=== PATIENT | female | born 1955 | race Caucasian/White ===

== ENCOUNTER 2016-08-16 16:53 | Emergency (ER) | payer BC ==
[~2016-08-16] VITALS: Ht 160 cm; Wt 85.4 kg
[~2016-08-16 16:53] MED LIST: CMD5 PO; INSDGI SQ; LSN5 PO; MECL1TAB42 PO; METO-157 PO; NVLGI SC; OXYC-57 PO; OXYC1TAB3 PO; ROSU20TA PO; SYN50 PO; WARF-246 PO; WLLSR100 PO
[2016-08-16 17:06] VITALS: TEMP 36.6; Ht 160 cm; Wt 85.4 kg
[2016-08-16] MEDS ORDERED: SODIUM CHLORIDE 0.9% 1000ML 1,000 ML IV STA (18:09)
[2016-08-16] MEDS ORDERED: SODIUM CHLORIDE 0.9% 1000ML 1,000 ML IV ONE (18:09)
--- NOTE | 2016-08-16 18:23 | EMERGENCY ROOM VISIT NOTE ---
History Report prepared by Suyapa: Alma Delia Patel Under the Supervision of: Dr. Aly Urban M.D. First contact with patient: 17:54 Chief Complaint: FALL Stated Complaint: FALL, HURT TAILBONE History of Present Illness The patient is a 61 year old female who presents to the Emergency Room with complaints of intermittent dizziness occurring for the past few days. The dizziness has been causing her to fall. About a week ago, the patient was up on a counter and fell back onto the floor. She hit her buttocks onto the floor. She thinks she injured her tailbone. Last night, she fell out of bed and hit her buttocks on the floor again. She thinks she hit her tailbone again. She reports hitting her head on the night stand. The patient denies fevers, chills, headache, loss of consciousness, chest pain, shortness of breath, numbness, weakness, or any other complaints. She reports a normal appetite and a normal fluid intake. She has a history of diabetes and her sugar has been running in the 600s for the past few months. Her PCP suspected that the hyperglycemia is related to the increased amount of stress. She is currently on blood thinners. The patient denies any changes in her medication. Source of History: patient Onset: a few days ago Position: other (global) Quality: other (dizziness) Timing: intermittent Associated Symptoms: No LOC, No SOB, No chest pain, No chills, No fevers, No headache, No numbness, No weakness Review of Systems See HPI for pertinent positives & negatives. A total of 10 systems reviewed and were otherwise negative. Past Medical & Surgical Medical Problems: (1) Adhesion of abdominal wall (2) Adult hypothyroidism (3) Anxiety (4) Calculus of kidney and ureter (5) Carpal tunnel syndrome on both sides (6) Deep venous thrombosis (7) Depression (8) Diabetic gastroparesis (9) Diabetic neuropathy (10) Diverticulosis of colon without diverticulitis (11) DJD (degenerative joint disease) (12) DM type 2 (diabetes mellitus, type 2) (13) Dyslipidemia (14) Essential hypertension (15) HTN (hypertension) (16) Obesity (17) Pulmonary embolism (18) Transient ischemic attack (19) Vertebral fracture (20) Vertigo (21) Vitamin D deficiency Surgical Problems: (1) Bilateral tubal ligation (2) H/O knee surgery (3) Hysterectomy (4) Oophorectomy (5) S/p breast lesion excision (6) S/P dilation and curettage (7) S/P laparoscopic cholecystectomy (8) S/P left knee arthroscopy (9) S/p lysis of adhesions (10) S/p small bowel repair Old medical records were reviewed. Nurse's notes were reviewed and I agree with. Family History " heart condition " SISTER (not CAD, passed at age 42) SISTER (not CAD, passed at 59) Cancer Diabetes mellitus Heart disease Hypertension Kidney disease Lung disease Seizures Social History Smoking Status: Never Smoker Alcohol Use: none Drug Use: none Marital Status: Housing Status: lives with family Occupation Status: retired Current/Historical Medications Scheduled Bupropion HCl (Bupropion HCl Sr), 100 MG PO QAM Cholecalciferol (Vitamin D3), 1 TAB PO QAM Clopidogrel (Plavix), 75 MG PO QAM Ferrous Sulfate (Ferrous Sulfate), 325 MG PO QAM Gabapentin (Neurontin), 400 MG PO TID Insulin Aspart (Novolog), 10 UNITS SC AC Insulin Glargine (Lantus), 42 UNITS SQ BID Levothyroxine Sodium (Synthroid), 100 MCG PO DAILY Lisinopril (Zestril), 10 MG PO DAILY Metformin Hcl (Glucophage), 500 MG PO BID Metoclopramide (Reglan), 10 MG PO TIDM Metoprolol Tartrate (Lopressor) (Lopressor), 25 MG PO BID Rosuvastatin Calcium (Crestor), 20 MG PO DAILY Sertraline Hcl (Zoloft), 200 MG PO QAM Tamsulosin Hcl (Flomax), 0.4 MG PO DAILY Warfarin Sod (Coumadin), 5 MG PO 2XWK Warfarin Sodium (Warfarin Sodium), 2.5 MG PO 4XWK Allergies Coded Allergies: Adhesives (Verified Allergy, Unknown, RASH, 08/16/16) Iodinated Diagnostic Agents (Verified Allergy, Unknown, burning and aching in veins, 08/16/16) Latex1 -Allergic Contact Dermititis (Verified Allergy, Unknown, 08/16/16) Penicillins (Verified Allergy, Unknown, n/v, rash, 08/16/16) Ketorolac (Verified Adverse Reaction, Mild, ITCHING., 08/16/16) Tromethamine (Verified Adverse Reaction, Mild, ITCHING., 08/16/16) Aspirin (Verified Adverse Reaction, Unknown, currently with gastric ulcer , per pt, 08/16/16) Physical Exam Vital Signs Date Time Temp Pulse Resp B/P Pulse Ox O2 Delivery O2 Flow Rate FiO2 08/16/16 21:40 81 18 143/81 95 Room Air 08/16/16 19:03 78 18 122/83 95 Room Air 08/16/16 17:06 36.6 78 17 150/78 96 Room Air Physical Exam General: Non-ill appearing, middle aged female, in no acute distress. HEENT: Normal cephalic atraumatic. Pupils are equal round and reactive to light. Extraocular movements are intact. Oropharynx is pink with moist mucous membranes. No swelling of the mouth lips or tongue. Neck: Supple with a midline trachea. No meningeal signs or stiffness, no JVD or bruits. No Stridor. Chest: Clear to auscultation bilaterally. No wheezes or rhonchi. No increased work of breathing. Heart: regular rate and rhythm. Abdomen: Soft nontender, nondistended without rebound guarding or rigidity. Extremities: No cyanosis clubbing or edema. No calf tenderness or assymetry. Mild tenderness in the sacral area centrally. Spine/Back. Non tender to palpation. No CVA tenderness Skin: Good turgor without rashes. Neurologic exam: Cranial nerves two through 12 are intact. Motor and sensation are intact and symmetrical throughout. Medical Decision & Procedures ER Provider Diagnostic Interpretation: CT results as stated below per my review and radiologist interpretation: ABDOMEN AND PELVIS CT WITHOUT CONTRAST CT DOSE: 2280.26 mGy.cm HISTORY: Trauma eval for trauma, retroperitonea. Hematoma TECHNIQUE: Multiaxial CT images of the abdomen and pelvis were performed without contrast. COMPARISON STUDY: 05/19/2016 FINDINGS: The lung bases are clear. The unenhanced liver, spleen, gallbladder, pancreas, kidneys, and adrenal glands are within normal limits. No bowel wall thickening or obstruction. The pelvic organs are unremarkable. No suspicious lytic or blastic osseous lesions. Prior cholecystectomy. No evidence for retroperitoneal hematoma. Pre-existing fracture anterior right 11th rib. IMPRESSION: No significant abnormality identified within the abdomen or pelvis. Electronically signed by: Adria Houston M.D. 08/16/2016 7:[address] CT DOSE: HISTORY: Trauma. Pain. eval for trauma TECHNIQUE: Multiaxial CT images of the head were performed without the use of intravenous contrast. Comparison: 05/26/2016 Findings: The paranasal sinuses and mastoid air cells are clear. The calvarium and skull base are intact. The ventricles and sulci are within normal limits. There is no mass, hematoma, midline shift, or acute infarct. Impression: No acute intracranial abnormality. Electronically signed by: Adria Houston M.D. 08/16/2016 7:08 PM Laboratory Results 08/16/16 18:26 Red Blood Count 4.77, Mean Corpuscular Volume 86.4, Mean Corpuscular Hemoglobin 31.0, Mean Corpuscular Hemoglobin Concent 35.9, Mean Platelet Volume 10.4, Neutrophils (%) (Auto) 73.4, Lymphocytes (%) (Auto) 18.6, Monocytes (%) (Auto) 6.4, Eosinophils (%) (Auto) 0.8, Basophils (%) (Auto) 0.6, Neutrophils # (Auto) 6.46, Lymphocytes # (Auto) 1.64, Monocytes # (Auto) 0.56, Eosinophils # (Auto) 0.07, Basophils # (Auto) 0.05 08/16/16 18:26 Test 08/16/16 18:26 08/16/16 18:37 08/16/16 18:39 White Blood Count 8.80 K/uL (4.8-10.8) Red Blood Count 4.77 M/uL (4.2-5.4) Hemoglobin 14.8 g/dL (12.0-16.0) Hematocrit 41.2 % (37-47) Mean Corpuscular Volume 86.4 fL (80-100) Mean Corpuscular Hemoglobin 31.0 pg (25-34) Mean Corpuscular Hemoglobin Concent 35.9 g/dl (32-36) Platelet Count 239 K/uL (130-400) Mean Platelet Volume 10.4 fL (7.4-10.4) Neutrophils (%) (Auto) 73.4 % Lymphocytes (%) (Auto) 18.6 % Monocytes (%) (Auto) 6.4 % Eosinophils (%) (Auto) 0.8 % Basophils (%) (Auto) 0.6 % Neutrophils # (Auto) 6.46 K/uL (1.4-6.5) Lymphocytes # (Auto) 1.64 K/uL (1.2-3.4) Monocytes # (Auto) 0.56 K/uL (0.11-0.59) Eosinophils # (Auto) 0.07 K/uL (0-0.5) Basophils # (Auto) 0.05 K/uL (0-0.2) RDW Standard Deviation 39.9 fL (36.4-46.3) RDW Coefficient of Variation 12.6 % (11.5-14.5) Immature Granulocyte % (Auto) 0.2 % Immature Granulocyte # (Auto) 0.02 K/uL (0.00-0.02) Red Blood Cell Morphology Unremarkable Prothrombin Time 17.3 SECONDS (9.0-12.0) Prothromb Time International Ratio 1.6 (0.9-1.1) Activated Partial Thromboplast Time 27.7 SECONDS (21.0-31.0) Partial Thromboplastin Ratio 1.1 Anion Gap 10.0 mmol/L (3-11) Est Creatinine Clear Calc Drug Dose 73.7 ml/min Estimated GFR () 87.6 Estimated GFR (Non- 75.5 BUN/Creatinine Ratio 11.9 (10-20) Calcium Level 8.8 mg/dl (8.5-10.1) Total Bilirubin 0.4 mg/dl (0.2-1) Direct Bilirubin 0.1 mg/dl (0-0.2) Aspartate Amino Transf (AST/SGOT) 48 U/L (15-37) Alanine Aminotransferase (ALT/SGPT) 53 U/L (12-78) Alkaline Phosphatase 123 U/L (45-117) Total Creatine Kinase 72 U/L (26-192) Creatine Kinase MB < 0.5 ng/ml (0.5-3.6) Creatine Kinase MB Ratio (0-3.0) Total Protein 7.7 gm/dl (6.4-8.2) Albumin 4.0 gm/dl (3.4-5.0) Lipase 384 U/L (73-393) Bedside Troponin I 0.000 ng/ml (0-0.045) Bedside Glucose 230 mg/dl (70-90) Laboratory studies as stated above per my review. Medications Administered Medications (Trade) Dose Ordered Sig/Frankie Route Start Time Stop Time Status Last Admin Dose Admin Sodium Chloride 1,000 ml @ 999 mls/hr Q1H1M STAT IV 08/16/16 18:09 08/16/16 19:09 DC 08/16/16 18:09 999 MLS/HR Sodium Chloride (Nss 1000ml) 1,000 ml @ 150 mls/hr Q6H40M ONCE IV 08/16/16 18:09 08/16/16 22:18 DC 08/16/16 18:09 150 MLS/HR Morphine Sulfate (MoRPHine SULFATE INJ) 4 mg NOW STAT IV 08/16/16 19:52 08/16/16 19:53 DC 08/16/16 20:11 4 MG Ondansetron HCl (Zofran Inj) 4 mg NOW STAT IV 08/16/16 19:52 08/16/16 19:53 DC 08/16/16 20:11 4 MG ECG Indication: other (Dizziness) Rate (beats per minute): 78 Rhythm: normal sinus Findings: no acute ischemic change, no ectopy, other (Poor R wave progression) Comparison ECG Date: May 25, 2013 Change: no significant change ED Course 1754: Past medical records reviewed. The patient was evaluated in room A03, and a complete history and physical examination were performed. 1808: Sodium Chloride 1000 ml @ 150 mls/hr IV, Sodium Chloride 1000 ml @ 999 mls /hr IV 1951: Zofran Inj 4 mg IV, Morphine Sulfate 4 mg IV 1952: I reevaluated the patient who is resting comfortably. 2127: Upon reevaluation, the patient is feeling better. I discussed the results and treatment plan with her. She verbalized agreement of the treatment plan. The patient was discharged home. Medical Decision Differential diagnosis includes but is not limited to hyperglycemia, dehydration , intracranial hemorrhage, intraabdominal hemorrhage, DKA, electrolyte or metabolic abnormality. This patient comes in as described above. She got dizzy and fell. She normally does walk use a walker and has chronic problems with dizziness. She is also on Coumadin. She tells me they try to stop her Coumadin because of her dizziness in the past however she then had a PE. She's been told that she is on anticoagulation for life. She looks well on exam she is some mild tenderness in her lower lumbar/sacral area. She has normal neurologic exam. IV access established, EKG was obtained .CAT scans of her head and abdomen/ pelvis were obtained. She has no significant traumatic injuries. No evidence of bleed or internal injury. Her EKG does not suggest acute coronary syndrome or arrhythmia. Her blood sugars in the 200s however she has no evidence suggest DKA. She did receive IV morphine and IV Zofran while she was here for pain and is feeling better. In regards to home, I told her use over-the- counter acetaminophen but do not exceed the [id number] recommended dosages of 650 mg every 6 hours. Given her dizziness, I do not want to put her on narcotics and given the fact that she is on anticoagulation she can't use NSAIDs. She is happy with the plan and will be discharged home and I told to be extremely careful when getting up and down and ensure she uses her walker so she does not fall again and to follow-up with her regular doctor next 1-2 days for recheck. She should return to ER for worsening of symptoms or any new problems or concerns. Impression Primary Impression: Dizziness Additional Impressions: Concussion, Sacral contusion, Hyperglycemia Scribe Attestation The scribe's documentation has been prepared under my direction and personally reviewed by me in its entirety. I confirm that the note above accurately reflects all work, treatment, procedures, and medical decision making performed by me. Departure Information Dispostion Home / Self-Care Referrals Adria Hilliard M.D. (PCP) Forms HOME CARE DOCUMENTATION FORM, IMPORTANT VISIT INFORMATION Patient Instructions A Signature Page, My [facility] Additional Instructions Rest. Drink plenty of fluids Check your blood sugar frequently and before bedtime Be extremely careful when getting up and down and use your walker so you don't fall For pain, may use acetaminophen/Tylenol maximum of 650 mg every 6 hours. Do not take with any other medications that contain acetaminophen/Tylenol. Do not exceed this dosage Return if: Increasing pain, worsening of symptoms, numbness weakness, any new problems or concerns Follow-up with your doctor in 1-2 days for recheck
[2016-08-16 18:54] LABS: BLOOD UREA NITROGEN 10 mg/dl (7-18); BUN/CREATININE RATIO 11.9 (10-20); CALCIUM 8.8 mg/dl (8.5-10.1); CARBON DIOXIDE 26 mmol/L (21-32); CHLORIDE 101 mmol/L (98-107); CREATININE 0.84 mg/dl (0.60-1.20); GLUCOSE 262 mg/dl (70-99); INR 1.6 (0.9-1.1); PARTIAL THROMBOPLASTIN RATIO 1.1; POTASSIUM 4.1 mmol/L (3.5-5.1); PROTHROMBIN TIME (PATIENT) 17.3 SECONDS (9.0-12.0); SODIUM 137 mmol/L (136-145)
[2016-08-16 19:00] LABS: ALKALINE PHOSPHATASE 123 U/L (45-117); ALT/SGPT 53 U/L (12-78); AST/SGOT 48 U/L (15-37)
[2016-08-16 19:05] LABS: HEMATOCRIT 41.2 % (37-47); MEAN CELL VOLUME 86.4 fL (80-100); MEAN CORPUSCULAR HGB CONC 35.9 g/dl (32-36); MEAN PLATELET VOLUME 10.4 fL (7.4-10.4); PLATELET COUNT 239 K/uL (130-400); RED BLOOD COUNT 4.77 M/uL (4.2-5.4)
[2016-08-16 19:06] LABS: BASO % 0.6 %; BASO ABS # 0.05 K/uL (0-0.2); COMPLETE YES; EOS % 0.8 %; IG% 0.2 %; LYMPH % 18.6 %; LYMPH ABS # 1.64 K/uL (1.2-3.4); MONO % 6.4 %; NEUT % 73.4 %
--- NOTE | 2016-08-16 19:10 | DIAGNOSTIC IMAGING REPORT ---
HEAD CT NONCONTRAST CT DOSE: HISTORY: Trauma. Pain. eval for trauma TECHNIQUE: Multiaxial CT images of the head were performed without the use of intravenous contrast. Comparison: 05/26/2016 Findings: The paranasal sinuses and mastoid air cells are clear. The calvarium and skull base are intact. The ventricles and sulci are within normal limits. There is no mass, hematoma, midline shift, or acute infarct. Impression: No acute intracranial abnormality. Electronically signed by: Adria Houston M.D. 08/16/2016 7:08 PM
--- NOTE | 2016-08-16 19:15 | DIAGNOSTIC IMAGING REPORT ---
ABDOMEN AND PELVIS CT WITHOUT CONTRAST CT DOSE: 2280.26 mGy.cm HISTORY: Trauma eval for trauma, retroperitonea. Hematoma TECHNIQUE: Multiaxial CT images of the abdomen and pelvis were performed without contrast. COMPARISON STUDY: 05/19/2016 FINDINGS: The lung bases are clear. The unenhanced liver, spleen, gallbladder, pancreas, kidneys, and adrenal glands are within normal limits. No bowel wall thickening or obstruction. The pelvic organs are unremarkable. No suspicious lytic or blastic osseous lesions. Prior cholecystectomy. No evidence for retroperitoneal hematoma. Pre-existing fracture anterior right 11th rib. IMPRESSION: No significant abnormality identified within the abdomen or pelvis. Electronically signed by: Adria Houston M.D. 08/16/2016 7:13 PM
[2016-08-16] MEDS ORDERED: MoRPHine SULFATE 4 MG/ML 1 ML CARP\\VIAL IV STA (19:52)
[2016-08-16] MEDS ORDERED: ONDANSETRON INJ 2 MG/ML 2 ML VIAL IV STA (19:52)
[2016-08-16 21:40] VITALS: BP 143/81; PULSE 81; O2SAT 95
[2016-10-09] MEDS ORDERED: NVLG SC (10:00)
[2016-10-09] MEDS ORDERED: CHOL1000 PO (10:00)
[2016-10-09] MEDS ORDERED: METO25TA56 PO (10:00)
[2016-10-09] MEDS ORDERED: INSDGI SQ (13:11)
[2016-11-04] MEDS ORDERED: TPRSR25 PO (12:43)
[2016-11-04] MEDS ORDERED: MRLP17 PO (12:43)
[2016-11-04] MEDS ORDERED: CMD5 PO (12:43)
[2016-11-04] MEDS ORDERED: ULT50X PO (12:43)
[2016-11-04] MEDS ORDERED: ACET-1138 PO (12:43)
[2017-04-19] MEDS ORDERED: NRN800 PO (14:20)
[2017-04-19] MEDS ORDERED: LSN20 PO (14:20)
[2017-04-19] MEDS ORDERED: METO25TA3 PO (14:20)
== END 2016-08-16 21:46 | disposition home or self-care (01) ==
LOC: C.EDB 16:54 → C.EDA 21:46
DX: R42 Dizziness and giddiness (principal); S06.0X0A Concussion without loss of consciousness, initial encounter; E11.65 Type 2 diabetes mellitus with hyperglycemia; E11.43 Type 2 diabetes mellitus with diabetic autonomic (poly)neuropathy; Z79.4 Long term (current) use of insulin; Z79.01 Long term (current) use of anticoagulants; E03.9 Hypothyroidism, unspecified; E66.9 Obesity, unspecified; Z68.33 Body mass index [BMI] 33.0-33.9, adult; E78.5 Hyperlipidemia, unspecified; I10 Essential (primary) hypertension; Z86.711 Personal history of pulmonary embolism; Z79.84 Long term (current) use of oral hypoglycemic drugs; W17.89XA Other fall from one level to another, initial encounter; Y93.89 Activity, other specified; Y92.019 Unspecified place in single-family (private) house as the place of occurrence of the external cause; Y99.8 Other external cause status

== ENCOUNTER 2016-08-31 17:37 | Emergency (ER) | payer BC, OTHER ==
[~2016-08-31] VITALS: Ht 162.6 cm; Wt 85.2 kg
[~2016-08-31 17:37] MED LIST changes: -LSN5 PO; -MECL1TAB42 PO; -METO-157 PO; -NVLGI SC; -OXYC-57 PO; -OXYC1TAB3 PO; -ROSU20TA PO; -SYN50 PO
[2016-08-31 18:01] VITALS: TEMP 37; Ht 162.6 cm; Wt 85.2 kg
[2016-08-31] MEDS ORDERED: MoRPHine SULFATE 4 MG/ML 1 ML CARP\\VIAL IV STA (19:49)
[2016-08-31 20:28] LABS: URINE APPEARANCE CLEAR (CLEAR); URINE BILIRUBIN NEG (NEG); URINE COLOR YELLOW; URINE EPITHELIAL CELL AUTO 20-30 /lpf (0-5); URINE NITRITE NEG (NEG); URINE PH 5.5 (4.5-7.5); URINE SPECIFIC GRAVITY 1.041 (1.000-1.030); UROBILINOGEN NEG (NEG)
[2016-08-31 20:34] LABS: BASO % 0.3 %; BASO ABS # 0.02 K/uL (0-0.2); COMPLETE YES; EOS % 0.8 %; HEMATOCRIT 40.3 % (37-47); IG% 0.4 %; LYMPH % 22.8 %; LYMPH ABS # 1.77 K/uL (1.2-3.4); MEAN CELL VOLUME 85.6 fL (80-100); MEAN CORPUSCULAR HEMOGLOBIN 30.1 pg (25-34); MEAN CORPUSCULAR HGB CONC 35.2 g/dl (32-36); MEAN PLATELET VOLUME 9.6 fL (7.4-10.4); MONO % 5.5 %; NEUT % 70.2 %; PLATELET COUNT 202 K/uL (130-400); RED BLOOD COUNT 4.71 M/uL (4.2-5.4); WHITE BLOOD COUNT 7.76 K/uL (4.8-10.8)
[2016-08-31 20:39] LABS: MANUAL MICROSCOPIC REQUIRED? NO; REVIEW REQ? NO
[2016-08-31 20:46] LABS: INR 1.9 (0.9-1.1); PARTIAL THROMBOPLASTIN RATIO 1.2; PROTHROMBIN TIME (PATIENT) 21.4 SECONDS (9.0-12.0)
--- NOTE | 2016-08-31 20:53 | DIAGNOSTIC IMAGING REPORT ---
CT OF THE ABDOMEN AND PELVIS WITHOUT CONTRAST, STONE PROTOCOL CLINICAL HISTORY: Abdominal pain. Evaluate for acute diverticulitis. COMPARISON STUDY: CT of the abdomen and pelvis August 16, 2016. TECHNIQUE: Helical axial images of the abdomen and pelvis were obtained without IV or oral contrast according to renal stone protocol. FINDINGS: The heart is mildly enlarged. Evaluation of the abdomen and pelvis is suboptimal given the lack of IV and oral contrast. There is no biliary ductal dilatation status post cholecystectomy. The liver, spleen, adrenal glands, kidneys and pancreas are unremarkable on this unenhanced exam. No renal, ureteral or bladder calculi are identified. No dilated loops of bowel are identified. The appendix is normal. Fat-containing ventral hernias are noted. There is no ascites or lymphadenopathy. No suspicious skeletal lesions are identified. The appearance of the abdomen and pelvis is unchanged. IMPRESSION: 1. No acute process within the abdomen or pelvis on unenhanced exam. 2. No urinary calculi or hydronephrosis. Electronically signed by: Mike Silverman M.D. 08/31/2016 8:51 PM Dictated Date/Time: 08/31/2016 8:47 PM
[2016-08-31 21:05] LABS: ALKALINE PHOSPHATASE 124 U/L (45-117); ALT/SGPT 51 U/L (12-78); BLOOD UREA NITROGEN 10 mg/dl (7-18); BUN/CREATININE RATIO 12.9 (10-20); CARBON DIOXIDE 26 mmol/L (21-32); CHLORIDE 106 mmol/L (98-107); CREATININE 0.78 mg/dl (0.60-1.20); GLUCOSE 209 mg/dl (70-99); SODIUM 141 mmol/L (136-145)
[2016-08-31] MEDS ORDERED: MoRPHine SULFATE 2 MG/ML CARP IV STA (21:16)
[2016-08-31 21:42] VITALS: BP 151/96; PULSE 81; O2SAT 97
--- NOTE | 2016-08-31 23:40 | EMERGENCY ROOM VISIT NOTE ---
History Report prepared by Suyapa: Ginny Hyatt Under the Supervision of: Dr. Luke Gardner M.D. First contact with patient: 19:21 Chief Complaint: ABDOMINAL PAIN Stated Complaint: STOMACH PAIN Nursing Triage Summary: Triage note: pt reports diarrhea x 3 weeks. pt reports she saw her pcp and they ran test and she was called today and told to come to the ed for further eval. History of Present Illness The patient is a 61 year old female who presents to the Emergency Room with complaints of persistent LLQ abdominal pain for the past 3 weeks. She rates her discomfort as a 10/10 in severity. She admits to nausea but has not vomited. She complains of persistent diarrhea for the past 3 weeks. She states her stool has been intermittently black in color but denies any hematochezia or recent antibiotic use. The patient reports she saw her primary care physician yesterday and had blood tests done and a rectal exam, which was heme negative. Her PCP's office called her today and advised she come to the ED for further evaluation. She is on daily Coumadin for a history of PE and states she does not take NSAID's for pain. She denies any recent fevers or urinary symptoms. 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 A total of 10 systems reviewed and were otherwise negative. Past Medical & Surgical Medical Problems: (1) Adhesion of abdominal wall (2) Adult hypothyroidism (3) Anxiety (4) Calculus of kidney and ureter (5) Carpal tunnel syndrome on both sides (6) Deep venous thrombosis (7) Depression (8) Diabetic gastroparesis (9) Diabetic neuropathy (10) Diverticulosis of colon without diverticulitis (11) DJD (degenerative joint disease) (12) DM type 2 (diabetes mellitus, type 2) (13) Dyslipidemia (14) Essential hypertension (15) HTN (hypertension) (16) Obesity (17) Pulmonary embolism (18) Transient ischemic attack (19) Vertebral fracture (20) Vertigo (21) Vitamin D deficiency Surgical Problems: (1) Bilateral tubal ligation (2) H/O knee surgery (3) Hysterectomy (4) Oophorectomy (5) S/p breast lesion excision (6) S/P dilation and curettage (7) S/P laparoscopic cholecystectomy (8) S/P left knee arthroscopy (9) S/p lysis of adhesions (10) S/p small bowel repair Family History " heart condition " SISTER (not CAD, passed at age 42) SISTER (not CAD, passed at 59) Cancer Diabetes mellitus Heart disease Hypertension Kidney disease Lung disease Seizures Social History Smoking Status: Never Smoker Alcohol Use: none Drug Use: none Marital Status: Housing Status: lives with family Occupation Status: retired Current/Historical Medications Scheduled Bupropion HCl (Bupropion HCl Sr), 100 MG PO QAM Cholecalciferol (Vitamin D3), 1 TAB PO QAM Clopidogrel (Plavix), 75 MG PO QAM Ferrous Sulfate (Ferrous Sulfate), 325 MG PO QAM Gabapentin (Neurontin), 400 MG PO TID Insulin Aspart (Novolog), 10 UNITS SC AC Insulin Glargine (Lantus), 42 UNITS SQ BID Levothyroxine Sodium (Synthroid), 100 MCG PO DAILY Lisinopril (Zestril), 10 MG PO DAILY Metformin Hcl (Glucophage), 500 MG PO BID Metoclopramide (Reglan), 10 MG PO TIDM Metoprolol Tartrate (Lopressor) (Lopressor), 25 MG PO BID Rosuvastatin Calcium (Crestor), 20 MG PO DAILY Sertraline Hcl (Zoloft), 200 MG PO QAM Tamsulosin Hcl (Flomax), 0.4 MG PO DAILY Warfarin Sod (Coumadin), 5 MG PO 2XWK Warfarin Sodium (Warfarin Sodium), 2.5 MG PO 4XWK Allergies Coded Allergies: Adhesives (Verified Allergy, Unknown, RASH, 08/16/16) Iodinated Diagnostic Agents (Verified Allergy, Unknown, burning and aching in veins, 08/16/16) Latex1 -Allergic Contact Dermititis (Verified Allergy, Unknown, 08/16/16) Penicillins (Verified Allergy, Unknown, n/v, rash, 08/16/16) Ketorolac (Verified Adverse Reaction, Mild, ITCHING., 08/16/16) Tromethamine (Verified Adverse Reaction, Mild, ITCHING., 08/16/16) Aspirin (Verified Adverse Reaction, Unknown, currently with gastric ulcer , per pt, 08/16/16) Physical Exam Vital Signs Date Time Temp Pulse Resp B/P Pulse Ox O2 Delivery O2 Flow Rate FiO2 08/31/16 21:42 81 20 151/96 97 Room Air 08/31/16 20:06 78 20 158/89 95 Room Air 08/31/16 18:01 37.0 83 18 153/90 96 Room Air Physical Exam Constitutional: Vital signs reviewed. Eyes: Pupils are equal round reactive to light. Conjunctiva are noninjected. ENT: Pharynx is clear without erythema or exudate. Mucous membranes are moist. Neck supple without meningeal signs. Respiratory: Clear to auscultation bilaterally. Breath sounds are equal bilaterally. Cardiovascular: Regular rate and rhythm. No rubs or gallops. GI: Soft, nondistended. LLQ tenderness, no guarding. Bowel sounds are present. Rectal: Guaiac negative, no stool. Musculoskeletal: No peripheral edema. No CVA tenderness. Integumentary: No cyanosis. Neurological: The patient is awake and alert. No focal deficits. Psychiatric: Normal affect. Medical Decision & Procedures ER Provider Diagnostic Interpretation: This CT scan was reviewed and interpreted by the radiologist and reviewed by myself. CT OF THE ABDOMEN AND PELVIS WITHOUT CONTRAST, STONE PROTOCOL CLINICAL HISTORY: Abdominal pain. Evaluate for acute diverticulitis. COMPARISON STUDY: CT of the abdomen and pelvis August 16, 2016. TECHNIQUE: Helical axial images of the abdomen and pelvis were obtained without IV or oral contrast according to renal stone protocol. FINDINGS: The heart is mildly enlarged. Evaluation of the abdomen and pelvis is suboptimal given the lack of IV and oral contrast. There is no biliary ductal dilatation status post cholecystectomy. The liver, spleen, adrenal glands, kidneys and pancreas are unremarkable on this unenhanced exam. No renal, ureteral or bladder calculi are identified. No dilated loops of bowel are identified. The appendix is normal. Fat-containing ventral hernias are noted. There is no ascites or lymphadenopathy. No suspicious skeletal lesions are identified. The appearance of the abdomen and pelvis is unchanged. IMPRESSION: 1. No acute process within the abdomen or pelvis on unenhanced exam. 2. No urinary calculi or hydronephrosis. Electronically signed by: Mike Silverman M.D. 08/31/2016 8:51 PM Laboratory Results 08/31/16 20:15 Red Blood Count 4.71, Mean Corpuscular Volume 85.6, Mean Corpuscular Hemoglobin 30.1, Mean Corpuscular Hemoglobin Concent 35.2, Mean Platelet Volume 9.6, Neutrophils (%) (Auto) 70.2, Lymphocytes (%) (Auto) 22.8, Monocytes (%) (Auto) 5.5, Eosinophils (%) (Auto) 0.8, Basophils (%) (Auto) 0.3, Neutrophils # (Auto) 5.45, Lymphocytes # (Auto) 1.77, Monocytes # (Auto) 0.43, Eosinophils # (Auto) 0.06, Basophils # (Auto) 0.02 08/31/16 20:15 Test 08/31/16 20:06 08/31/16 20:15 Urine Color YELLOW Urine Appearance CLEAR (CLEAR) Urine pH 5.5 (4.5-7.5) Urine Specific [place] 1.041 (1.000-1.030) Urine Protein NEG (NEG) Urine Glucose (UA) 3+ (NEG) Urine Ketones NEG (NEG) Urine Occult Blood NEG (NEG) Urine Nitrite NEG (NEG) Urine Bilirubin NEG (NEG) Urine Urobilinogen NEG (NEG) Urine Leukocyte Esterase TRACE (NEG) Urine WBC (Auto) 10-30 /hpf (0-5) Urine RBC (Auto) 0-4 /hpf (0-4) Urine Hyaline Casts (Auto) 1-5 /lpf (0-5) Urine Epithelial Cells (Auto) 20-30 /lpf (0-5) Urine Bacteria (Auto) NEG (NEG) White Blood Count 7.76 K/uL (4.8-10.8) Red Blood Count 4.71 M/uL (4.2-5.4) Hemoglobin 14.2 g/dL (12.0-16.0) Hematocrit 40.3 % (37-47) Mean Corpuscular Volume 85.6 fL (80-100) Mean Corpuscular Hemoglobin 30.1 pg (25-34) Mean Corpuscular Hemoglobin Concent 35.2 g/dl (32-36) Platelet Count 202 K/uL (130-400) Mean Platelet Volume 9.6 fL (7.4-10.4) Neutrophils (%) (Auto) 70.2 % Lymphocytes (%) (Auto) 22.8 % Monocytes (%) (Auto) 5.5 % Eosinophils (%) (Auto) 0.8 % Basophils (%) (Auto) 0.3 % Neutrophils # (Auto) 5.45 K/uL (1.4-6.5) Lymphocytes # (Auto) 1.77 K/uL (1.2-3.4) Monocytes # (Auto) 0.43 K/uL (0.11-0.59) Eosinophils # (Auto) 0.06 K/uL (0-0.5) Basophils # (Auto) 0.02 K/uL (0-0.2) RDW Standard Deviation 37.8 fL (36.4-46.3) RDW Coefficient of Variation 12.1 % (11.5-14.5) Immature Granulocyte % (Auto) 0.4 % Immature Granulocyte # (Auto) 0.03 K/uL (0.00-0.02) Prothrombin Time 21.4 SECONDS (9.0-12.0) Prothromb Time International Ratio 1.9 (0.9-1.1) Activated Partial Thromboplast Time 30.0 SECONDS (21.0-31.0) Partial Thromboplastin Ratio 1.2 Anion Gap 9.0 mmol/L (3-11) Est Creatinine Clear Calc Drug Dose 81.0 ml/min Estimated GFR () 95.8 Estimated GFR (Non- 82.6 BUN/Creatinine Ratio 12.9 (10-20) Calcium Level 9.0 mg/dl (8.5-10.1) Total Bilirubin 0.4 mg/dl (0.2-1) Direct Bilirubin mg/dl (0-0.2) Aspartate Amino Transf (AST/SGOT) U/L (15-37) Alanine Aminotransferase (ALT/SGPT) 51 U/L (12-78) Alkaline Phosphatase 124 U/L (45-117) Total Protein 7.1 gm/dl (6.4-8.2) Albumin 3.5 gm/dl (3.4-5.0) Lipase 242 U/L (73-393) Laboratory results as reviewed by me. Medications Administered Medications (Trade) Dose Ordered Sig/Frankei Route Start Time Stop Time Status Last Admin Dose Admin Morphine Sulfate (MoRPHine SULFATE INJ) 4 mg ONE STAT IV 08/31/16 19:49 08/31/16 19:51 DC 08/31/16 20:20 4 MG Morphine Sulfate (MoRPHine SULFATE INJ) 2 mg NOW STAT IV 08/31/16 21:16 08/31/16 21:17 DC 08/31/16 21:39 2 MG ED Course 1926: The patient was evaluated in room B9. A complete history and physical exam was performed. 1948: Morphine Sulfate 4 mg IV. 2114: I reviewed her test results with her. 2115: Morphine Sulfate 2 mg IV. Medical Decision This is a 61-year-old female presents with abdominal pain and diarrhea. Differential diagnosis includes gastroenteritis, diverticulitis, perforation, abscess, GI bleed, irritable bowel syndrome. I did perform a limited focused review of portions of the patient's old chart on the electronic medical record. The patient was seen here on August 16, 2016 for dizziness and a fall. She underwent a CT of the abdomen, which was unremarkable. I reviewed the patient's recent lab work from the [facility] system. Her Lipase is minimally elevated at 97, normal CBC, hyperglycemia and minimal elevation of AST/ALT. She was sent here to rule out Pancreatitis by CT scan and for her elevated Lipase. I did evaluate the patient as noted above. The patient has had abdominal pain for 3 weeks with intermittent diarrhea which has since improved. She did complain of black stools but is guaiac-negative here as well as at her doctor's office yesterday. She was sent here for evaluation of possible pancreatitis because of an elevated lipase in the office. IV access was established. I did treat the patient with IV morphine and Zofran. I did order and personally review the patient's urinalysis as described above. I did order and review the patient's blood work as noted in the electronic medical record. Her white blood cell count is not elevated. I did order a CT of the abdomen and pelvis. I did review the images myself as well as the radiology report as described above. She does not have any evidence of pancreatitis or acute process in the abdomen. I did discuss the test results with the patient. She was advised follow closely with her doctor. She was discharged in good condition. Impression Primary Impression: LLQ abdominal pain Additional Impressions: Diarrhea Anticoagulated on Coumadin Scribe Attestation The scribe's documentation has been prepared under my direct and personally reviewed by me in its entirety. I confirm that the note above accurately reflects all work, treatment, procedures, and medical decision making performed by me. Departure Information Dispostion Home / Self-Care Referrals Adria Hilliard M.D. (PCP) Patient Instructions ED Abd Pain Unkn Cause Fem, [facility] Additional Instructions You have been examined and treated today on an emergency basis only. This is not a substitute for, or an effort to provide, complete comprehensive medical care. It is impossible to recognize and treat all injuries or illnesses in a single emergency department visit. It is therefore important that you follow up closely with your physician. Call as soon as possible for an appointment. Return for worsening symptoms or if you develop fever, vomiting, or any other concerning symptoms. Problem Qualifiers
[2016-10-09] MEDS ORDERED: METO25TA56 PO (10:00)
[2016-10-09] MEDS ORDERED: CHOL1000 PO (10:00)
[2016-10-09] MEDS ORDERED: NVLG SC (10:00)
[2016-10-09] MEDS ORDERED: INSDGI SQ (13:11)
[2016-11-04] MEDS ORDERED: ACET-1138 PO (12:43)
[2016-11-04] MEDS ORDERED: MRLP17 PO (12:43)
[2016-11-04] MEDS ORDERED: CMD5 PO (12:43)
[2016-11-04] MEDS ORDERED: TPRSR25 PO (12:43)
[2016-11-04] MEDS ORDERED: ULT50X PO (12:43)
[2017-04-19] MEDS ORDERED: LSN20 PO (14:20)
[2017-04-19] MEDS ORDERED: NRN800 PO (14:20)
[2017-04-19] MEDS ORDERED: METO25TA3 PO (14:20)
== END 2016-08-31 21:45 | disposition home or self-care (01) ==
LOC: C.EDB 17:38
DX: R10.32 Left lower quadrant pain (principal); R19.7 Diarrhea, unspecified; Z79.01 Long term (current) use of anticoagulants; I10 Essential (primary) hypertension; E78.5 Hyperlipidemia, unspecified; E11.43 Type 2 diabetes mellitus with diabetic autonomic (poly)neuropathy; E03.9 Hypothyroidism, unspecified; F41.9 Anxiety disorder, unspecified; E11.21 Type 2 diabetes mellitus with diabetic nephropathy; F32.9 Major depressive disorder, single episode, unspecified; K57.90 Diverticulosis of intestine, part unspecified, without perforation or abscess without bleeding; Z86.711 Personal history of pulmonary embolism; Z86.718 Personal history of other venous thrombosis and embolism; Z87.81 Personal history of (healed) traumatic fracture; Z86.73 Personal history of transient ischemic attack (TIA), and cerebral infarction without residual deficits; Z87.442 Personal history of urinary calculi; Z98.51 Tubal ligation status; Z90.49 Acquired absence of other specified parts of digestive tract; Z90.710 Acquired absence of both cervix and uterus; Z98.890 Other specified postprocedural states; Z79.4 Long term (current) use of insulin; Z79.84 Long term (current) use of oral hypoglycemic drugs; Z79.899 Other long term (current) drug therapy; Z88.0 Allergy status to penicillin; Z88.6 Allergy status to analgesic agent; Z88.8 Allergy status to other drugs, medicaments and biological substances; Z91.040 Latex allergy status; Z91.041 Radiographic dye allergy status; Z80.9 Family history of malignant neoplasm, unspecified; Z83.3 Family history of diabetes mellitus; Z82.49 Family history of ischemic heart disease and other diseases of the circulatory system; Z84.1 Family history of disorders of kidney and ureter; Z82.0 Family history of epilepsy and other diseases of the nervous system

== ENCOUNTER 2016-09-28 10:53 | Emergency (ER) | payer BC ==
[~2016-09-28] VITALS: Ht 162.6 cm; Wt 84.0 kg
[2016-09-28 11:00] VITALS: TEMP 36.7; Ht 162.6 cm; Wt 84.0 kg
[2016-09-28] MEDS ORDERED: MoRPHine SULFATE 10 MG/ML CARP/VIAL IV STA (11:29)
[2016-09-28] MEDS ORDERED: SODIUM CHLORIDE 0.9% 500ML 500 ML IV STA (11:29)
[2016-09-28] MEDS ORDERED: ONDANSETRON INJ 2 MG/ML 2 ML VIAL IV STA (11:29)
--- NOTE | 2016-09-28 11:32 | EMERGENCY ROOM VISIT NOTE ---
History Report prepared by Suyapa: Chico Velázquez Under the Supervision of: Dr. Isra Knutson M.D. First contact with patient: 11:24 Chief Complaint: HEADACHE Stated Complaint: KIM, LUMPS ON HEAD, HOT ALL THE TIME History of Present Illness The patient is a 61 year old female who presents to the Emergency Room with complaints of a persistent headache that started yesterday. She says she feels lumps on her head and behind her ear, and she is having pain in her neck and down her whole back. The patient notes that the pain worsened last night. She has never had headache like this before. She is on Coumadin. The patient has not taken anything for the pain. She denies any ear pain. Source of History: patient Onset: Yesterday Position: head Timing: other (persistent) Associated Symptoms: + back pain, + neck pain Note: Associated symptoms: Lumps on head and behind ear. Denies any ear pain. Review of Systems See HPI for pertinent positives & negatives. A total of 10 systems reviewed and were otherwise negative. Past Medical & Surgical Medical Problems: (1) Adhesion of abdominal wall (2) Adult hypothyroidism (3) Anxiety (4) Calculus of kidney and ureter (5) Carpal tunnel syndrome on both sides (6) Deep venous thrombosis (7) Depression (8) Diabetic gastroparesis (9) Diabetic neuropathy (10) Diverticulosis of colon without diverticulitis (11) DJD (degenerative joint disease) (12) DM type 2 (diabetes mellitus, type 2) (13) Dyslipidemia (14) Essential hypertension (15) HTN (hypertension) (16) Obesity (17) Pulmonary embolism (18) Transient ischemic attack (19) Vertebral fracture (20) Vertigo (21) Vitamin D deficiency Surgical Problems: (1) Bilateral tubal ligation (2) H/O knee surgery (3) Hysterectomy (4) Oophorectomy (5) S/p breast lesion excision (6) S/P dilation and curettage (7) S/P laparoscopic cholecystectomy (8) S/P left knee arthroscopy (9) S/p lysis of adhesions (10) S/p small bowel repair Family History " heart condition " SISTER (not CAD, passed at age 42) SISTER (not CAD, passed at 59) Cancer Diabetes mellitus Heart disease Hypertension Kidney disease Lung disease Seizures Social History Smoking Status: Never Smoker Alcohol Use: none Drug Use: none Marital Status: Housing Status: lives with family Occupation Status: retired Current/Historical Medications Scheduled Azithromycin (Zithromax), 250 MG PO DAILY Bupropion HCl (Bupropion HCl Sr), 100 MG PO QAM Cholecalciferol (Vitamin D3), 1 TAB PO QAM Clopidogrel (Plavix), 75 MG PO QAM Ferrous Sulfate (Ferrous Sulfate), 325 MG PO QAM Gabapentin (Neurontin), 400 MG PO TID Insulin Aspart (Novolog), 10 UNITS SC AC Insulin Glargine (Lantus), 42 UNITS SQ BID Levothyroxine Sodium (Synthroid), 100 MCG PO DAILY Lisinopril (Zestril), 10 MG PO DAILY Metformin Hcl (Glucophage), 500 MG PO BID Metoclopramide (Reglan), 10 MG PO TIDM Metoprolol Tartrate (Lopressor) (Lopressor), 25 MG PO BID Rosuvastatin Calcium (Crestor), 20 MG PO DAILY Sertraline Hcl (Zoloft), 200 MG PO QAM Tamsulosin Hcl (Flomax), 0.4 MG PO DAILY Warfarin Sod (Coumadin), 5 MG PO 2XWK Warfarin Sodium (Warfarin Sodium), 2.5 MG PO 4XWK Allergies Coded Allergies: Adhesives (Verified Allergy, Unknown, RASH, 09/28/16) Iodinated Diagnostic Agents (Verified Allergy, Unknown, burning and aching in veins, 09/28/16) Latex1 -Allergic Contact Dermititis (Verified Allergy, Unknown, 09/28/16) Penicillins (Verified Allergy, Unknown, n/v, rash, 09/28/16) Ketorolac (Verified Adverse Reaction, Mild, ITCHING., 09/28/16) Tromethamine (Verified Adverse Reaction, Mild, ITCHING., 09/28/16) Aspirin (Verified Adverse Reaction, Unknown, currently with gastric ulcer , per pt, 09/28/16) Physical Exam Vital Signs Date Time Temp Pulse Resp B/P Pulse Ox O2 Delivery O2 Flow Rate FiO2 09/28/16 13:44 72 20 116/71 92 09/28/16 12:36 79 09/28/16 12:30 78 16 145/84 94 Room Air 09/28/16 11:56 82 17 141/66 95 Room Air 2/16/17 11:00 36.7 95 18 140/84 95 Physical Exam GENERAL: Patient is a healthy-appearing well-nourished HEAD: Tender to right side of skull. EYES: Ocular movements intact pupils equal and react to light OROPHARYNX mucous membranes are moist no exudates present no erythema or edema present NECK: Supple no nuchal rigidity CHEST: Good equal expansion LUNGS: Clear and equal to auscultation CARDIAC: Normal S1 and S2 ABDOMEN: Soft nontender no guarding BACK: No CVA tenderness EXTREMITIES: No pain upon palpation normal muscle strength in all groups no clubbing cyanosis or edema NEURO: Patient is following commands is answering questions appropriately. Alert and oriented x3 Cranial Nerves 2-12 grossly intact No evidence of meningitis or encephalitis on exam. Medical Decision & Procedures ER Provider Diagnostic Interpretation: CT results as stated below per my review and radiologist interpretation: CT SCAN OF THE BRAIN WITHOUT IV CONTRAST CLINICAL HISTORY: Right facial swelling. Headache. COMPARISON STUDY: CT of the brain dated 08/16/2016. TECHNIQUE: Unenhanced axial CT scan of the brain is performed from the vertex to the skull base. CT DOSE: 537.48 mGy.cm FINDINGS: Brain parenchyma: There are age-related involutional changes noting mild subcortical and periventricular microangiopathic change. There is no hemorrhage, mass effect, or evidence of acute territorial ischemia by CT criteria. Mineralization is noted in the basal ganglia. Abernathy-white matter is preserved. No extra-axial fluid collection is seen. Ventricles, sulci, cisterns: Prominent secondary to involutional change. Intracranial vasculature: There is atherosclerotic calcification of the cavernous carotid arteries. Calvarium: Unremarkable. Sinuses and mastoids: The visualized paranasal sinuses are clear. The mastoid air cells are well pneumatized. Orbits: The bony orbits are grossly intact. IMPRESSION: There is no hemorrhage, mass effect, or evidence of acute territorial ischemia by CT criteria. Electronically signed by: Félix Cisneros M.D. 09/28/2016 12:24 PM Dictated Date/Time: 09/28/2016 12:22 PM Laboratory Results 09/28/16 11:55 Red Blood Count 4.95, Mean Corpuscular Volume 85.3, Mean Corpuscular Hemoglobin 30.3, Mean Corpuscular Hemoglobin Concent 35.5, Mean Platelet Volume 9.5, Neutrophils (%) (Auto) 78.7, Lymphocytes (%) (Auto) 13.1, Monocytes (%) (Auto) 6.6, Eosinophils (%) (Auto) 0.9, Basophils (%) (Auto) 0.5, Neutrophils # (Auto) 7.26, Lymphocytes # (Auto) 1.21, Monocytes # (Auto) 0.61, Eosinophils # (Auto) 0.08, Basophils # (Auto) 0.05 09/28/16 11:55 Test 09/28/16 11:55 White Blood Count 9.23 K/uL (4.8-10.8) Red Blood Count 4.95 M/uL (4.2-5.4) Hemoglobin 15.0 g/dL (12.0-16.0) Hematocrit 42.2 % (37-47) Mean Corpuscular Volume 85.3 fL (80-100) Mean Corpuscular Hemoglobin 30.3 pg (25-34) Mean Corpuscular Hemoglobin Concent 35.5 g/dl (32-36) Platelet Count 193 K/uL (130-400) Mean Platelet Volume 9.5 fL (7.4-10.4) Neutrophils (%) (Auto) 78.7 % Lymphocytes (%) (Auto) 13.1 % Monocytes (%) (Auto) 6.6 % Eosinophils (%) (Auto) 0.9 % Basophils (%) (Auto) 0.5 % Neutrophils # (Auto) 7.26 K/uL (1.4-6.5) Lymphocytes # (Auto) 1.21 K/uL (1.2-3.4) Monocytes # (Auto) 0.61 K/uL (0.11-0.59) Eosinophils # (Auto) 0.08 K/uL (0-0.5) Basophils # (Auto) 0.05 K/uL (0-0.2) RDW Standard Deviation 38.5 fL (36.4-46.3) RDW Coefficient of Variation 12.5 % (11.5-14.5) Immature Granulocyte % (Auto) 0.2 % Immature Granulocyte # (Auto) 0.02 K/uL (0.00-0.02) Prothrombin Time 27.4 SECONDS (9.0-12.0) Prothromb Time International Ratio 2.5 (0.9-1.1) Anion Gap 9.0 mmol/L (3-11) Est Creatinine Clear Calc Drug Dose 79.4 ml/min Estimated GFR () 94.3 Estimated GFR (Non- 81.4 BUN/Creatinine Ratio 12.3 (10-20) Calcium Level 9.2 mg/dl (8.5-10.1) Total Bilirubin 0.7 mg/dl (0.2-1) Direct Bilirubin 0.2 mg/dl (0-0.2) Aspartate Amino Transf (AST/SGOT) 51 U/L (15-37) Alanine Aminotransferase (ALT/SGPT) 56 U/L (12-78) Alkaline Phosphatase 126 U/L (45-117) Total Protein 7.7 gm/dl (6.4-8.2) Albumin 3.9 gm/dl (3.4-5.0) Lipase 181 U/L (73-393) Labs reviewed by ED physician. Medications Administered Medications (Trade) Dose Ordered Sig/Frankie Route Start Time Stop Time Status Last Admin Dose Admin Sodium Chloride (Nss 500ml) 500 ml @ 999 mls/hr Q31M STAT IV 09/28/16 11:29 09/28/16 11:59 DC 09/28/16 11:52 999 MLS/HR Morphine Sulfate (MoRPHine SULFATE INJ) 6 mg NOW STAT IV 09/28/16 11:29 09/28/16 11:32 DC 09/28/16 11:51 6 MG Ondansetron HCl (Zofran Inj) 4 mg NOW STAT IV 09/28/16 11:29 09/28/16 11:32 DC 09/28/16 11:52 4 MG Prochlorperazine Edisylate (Compazine Inj) 10 mg NOW STAT IV 09/28/16 12:38 09/28/16 12:40 DC 09/28/16 12:51 10 MG Diphenhydramine HCl (Benadryl Inj) 50 mg NOW STAT IV 09/28/16 12:38 09/28/16 12:40 DC 09/28/16 12:54 50 MG Acetaminophen (Tylenol Tab) 1,000 mg NOW STAT PO 09/28/16 12:38 09/28/16 12:40 DC 09/28/16 12:49 1,000 MG Azithromycin (Zithromax Tab) 500 mg NOW ONCE PO 09/28/16 12:45 09/28/16 12:46 DC 09/28/16 12:45 500 MG ED Course 1127: Past medical records reviewed. The patient was evaluated in room B12B. A complete history and physical examination was performed. 1129: Ordered Zofran Inj 4 mg IV, Morphine Sulfate Inj 6 mg IV, NSS 500 ml @ 999 mls/hr IV. 1238: Ordered Tylenol Tab 1000 mg PO, Benadryl Inj 50 mg IV, Compazine Inj 10 mg IV. 1245: Ordered Zithromax Tab 500 mg PO. 1250: I reevaluated the patient and she is resting comfortably. The patient verbally expressed understanding and agreement of the treatment plan. The patient will be discharged. Medical Decision Differential diagnosis: Etiologies such as migraine headache, meningitis, sinusitis, CO exposure, ICH, SAH, infection, tumor, headache, sinus thrombosis, arterial dissection, as well as others were entertained. This is a 61-year-old female who presents emergency department complaining of headache. An IV was established, patient given normal saline bolus. She does not have an elevation in her white blood count. She does have some reactive lymph nodes around her ear however has no evidence of mastitis. She was sent for a CAT scan of the head which did not show any evidence of acute injury. The patient was given morphine in the emergency department along with Compazine and Benadryl. I will note that the patient was sleeping her pain appeared to be under control. Believe she is well enough to be discharged. I will place patient on antibiotics for otitis media. Patient was in agreement with the treatment plan. Impression Primary Impression: Headache Additional Impression: Lymphadenopathy Scribe Attestation The scribe's documentation has been prepared under my direction and personally reviewed by me in its entirety. I confirm that the note above accurately reflects all work, treatment, procedures, and medical decision making performed by me. Departure Information Dispostion Home / Self-Care Prescriptions Azithromycin (ZITHROMAX) 250 Mg Tab 250 MG PO DAILY, #4 TAB Prov: Isra Knutson MD 09/28/16 Referrals Adria Hilliard M.D. (PCP) Forms HOME CARE DOCUMENTATION FORM, IMPORTANT VISIT INFORMATION, School Instructions, Work Instructions Patient Instructions ED Otitis Media Abx Tx, Headache Pain, My [facility] Additional Instructions Need follow up with Dr Dillon's office You have been examined and treated today on an emergency basis only. This is not a substitute for, or an effort to provide, complete comprehensive medical care. It is impossible to recognize and treat all injuries or illnesses in a single emergency department visit. It is therefore important that you follow up closely with Dr Hilliard. Call as soon as possible for an appointment. Thank you for your time and consideration. I look forward to speaking with you again soon. Please don't hesitate to call us if you have any questions. Problem Qualifiers Primary Impression: Headache Headache type: unspecified Headache chronicity pattern: acute headache Intractability: not intractable Qualified Codes: R51 - Headache
[2016-09-28 12:10] LABS: BASO % 0.5 %; BASO ABS # 0.05 K/uL (0-0.2); COMPLETE YES; EOS % 0.9 %; HEMATOCRIT 42.2 % (37-47); IG% 0.2 %; LYMPH % 13.1 %; LYMPH ABS # 1.21 K/uL (1.2-3.4); MEAN CELL VOLUME 85.3 fL (80-100); MEAN CORPUSCULAR HEMOGLOBIN 30.3 pg (25-34); MEAN CORPUSCULAR HGB CONC 35.5 g/dl (32-36); MEAN PLATELET VOLUME 9.5 fL (7.4-10.4); MONO % 6.6 %; NEUT % 78.7 %; PLATELET COUNT 193 K/uL (130-400); RED BLOOD COUNT 4.95 M/uL (4.2-5.4); WHITE BLOOD COUNT 9.23 K/uL (4.8-10.8)
[2016-09-28 12:20] LABS: INR 2.5 (0.9-1.1); PROTHROMBIN TIME (PATIENT) 27.4 SECONDS (9.0-12.0)
--- NOTE | 2016-09-28 12:26 | DIAGNOSTIC IMAGING REPORT ---
CT SCAN OF THE BRAIN WITHOUT IV CONTRAST CLINICAL HISTORY: Right facial swelling. Headache. COMPARISON STUDY: CT of the brain dated 08/16/2016. TECHNIQUE: Unenhanced axial CT scan of the brain is performed from the vertex to the skull base. CT DOSE: 537.48 mGy.cm FINDINGS: Brain parenchyma: There are age-related involutional changes noting mild subcortical and periventricular microangiopathic change. There is no hemorrhage, mass effect, or evidence of acute territorial ischemia by CT criteria. Mineralization is noted in the basal ganglia. Abernathy-white matter is preserved. No extra-axial fluid collection is seen. Ventricles, sulci, cisterns: Prominent secondary to involutional change. Intracranial vasculature: There is atherosclerotic calcification of the cavernous carotid arteries. Calvarium: Unremarkable. Sinuses and mastoids: The visualized paranasal sinuses are clear. The mastoid air cells are well pneumatized. Orbits: The bony orbits are grossly intact. IMPRESSION: There is no hemorrhage, mass effect, or evidence of acute territorial ischemia by CT criteria. Electronically signed by: Félix Cisneros M.D. 09/28/2016 12:24 PM Dictated Date/Time: 09/28/2016 12:22 PM
[2016-09-28 12:28] LABS: BUN/CREATININE RATIO 12.3 (10-20); CALCIUM 9.2 mg/dl (8.5-10.1); CREATININE 0.79 mg/dl (0.60-1.20); POTASSIUM 4.2 mmol/L (3.5-5.1)
[2016-09-28] MEDS ORDERED: ACETAMINOPHEN 500 MG TAB PO STA (12:38)
[2016-09-28] MEDS ORDERED: DiphenhydrAMINE HCL 50 MG/ML VIAL IV STA (12:38)
[2016-09-28] MEDS ORDERED: PROCHLORPERAZINE 5 MG/ML 2 ML VIAL IV STA (12:38)
[2016-09-28] MEDS ORDERED: AZITHROMYCIN 250 MG TAB PO ONE (12:45)
[2016-09-28] MEDS ORDERED: AZIT250T5 PO (12:45)
[2016-09-28 13:44] VITALS: BP 116/71; PULSE 72; O2SAT 92
[2016-10-09] MEDS ORDERED: NVLG SC (10:00)
[2016-10-09] MEDS ORDERED: CHOL1000 PO (10:00)
[2016-10-09] MEDS ORDERED: METO25TA56 PO (10:00)
[2016-10-09] MEDS ORDERED: INSDGI SQ (13:11)
[2016-11-04] MEDS ORDERED: TPRSR25 PO (12:43)
[2016-11-04] MEDS ORDERED: MRLP17 PO (12:43)
[2016-11-04] MEDS ORDERED: CMD5 PO (12:43)
[2016-11-04] MEDS ORDERED: ACET-1138 PO (12:43)
[2016-11-04] MEDS ORDERED: ULT50X PO (12:43)
[2017-04-19] MEDS ORDERED: METO25TA3 PO (14:20)
[2017-04-19] MEDS ORDERED: LSN20 PO (14:20)
[2017-04-19] MEDS ORDERED: NRN800 PO (14:20)
== END 2016-09-28 13:46 | disposition home or self-care (01) ==
LOC: C.EDB 10:54
DX: R51 Headache (principal); R59.1 Generalized enlarged lymph nodes; I10 Essential (primary) hypertension; E11.43 Type 2 diabetes mellitus with diabetic autonomic (poly)neuropathy; E78.5 Hyperlipidemia, unspecified; E03.9 Hypothyroidism, unspecified; K57.30 Diverticulosis of large intestine without perforation or abscess without bleeding; F32.9 Major depressive disorder, single episode, unspecified; F41.9 Anxiety disorder, unspecified; Z87.442 Personal history of urinary calculi; Z86.711 Personal history of pulmonary embolism; Z86.718 Personal history of other venous thrombosis and embolism; Z87.81 Personal history of (healed) traumatic fracture; Z98.51 Tubal ligation status; Z90.710 Acquired absence of both cervix and uterus; Z98.890 Other specified postprocedural states; Z79.01 Long term (current) use of anticoagulants; Z79.4 Long term (current) use of insulin; Z79.84 Long term (current) use of oral hypoglycemic drugs; Z79.899 Other long term (current) drug therapy; Z88.0 Allergy status to penicillin; Z88.6 Allergy status to analgesic agent; Z88.8 Allergy status to other drugs, medicaments and biological substances; Z91.040 Latex allergy status; Z91.041 Radiographic dye allergy status; Z91.09 Other allergy status, other than to drugs and biological substances

== ENCOUNTER 2016-10-09 16:03 | Emergency (ER) | payer BC ==
[~2016-10-09] VITALS: Ht 162.6 cm; Wt 84.0 kg
[~2016-10-09 16:03] MED LIST changes: +AZIT250T5 PO; +CHOL1000 PO; +METO25TA56 PO; +NVLG SC
[2016-10-09 16:06] VITALS: TEMP 36.9; Ht 162.6 cm; Wt 84.0 kg
[2016-10-09] MEDS ORDERED: MoRPHine SULFATE 10 MG/ML CARP/VIAL IM STA (16:48)
[2016-10-09] MEDS ORDERED: CLOP1TAB15 PO (16:54)
[2016-10-09] MEDS ORDERED: WLLSR100 PO (17:04)
[2016-10-09] MEDS ORDERED: WARF5TAB90 PO ×2 (17:04)
[2016-10-09 17:29] LABS: ISTAT CREATININE 0.7 mg/dl (0.6-1.3); ISTAT IONIZED CALCIUM 1.16 mmol/l (1.12-1.32)
[2016-10-09] MEDS ORDERED: SERT100T PO (17:53)
--- NOTE | 2016-10-09 18:00 | DIAGNOSTIC IMAGING REPORT ---
CT OF THE HEAD WITHOUT CONTRAST CLINICAL HISTORY: Fall with head injury. COMPARISON STUDY: Head CT September 28, 2016. CT DOSE: 2597.47 mGy.cm TECHNIQUE: Helical axial images of the head were obtained without IV contrast. Automated exposure control was utilized for the study. FINDINGS: No acute intracranial hemorrhage, midline shift or mass effect is present. Brain volume is normal. Ventricular system is normal. Basilar cisterns are patent. There are no extra axial collections. A few white matter hypodensities are unchanged and suggest small vessel disease. There is no calvarial fracture. IMPRESSION: 1. No acute intracranial findings. 2. No calvarial fracture. Electronically signed by: Mike Silverman M.D. 10/09/2016 5:59 PM Dictated Date/Time: 10/09/2016 5:57 PM
--- NOTE | 2016-10-09 18:04 | DIAGNOSTIC IMAGING REPORT ---
CT OF THE CERVICAL SPINE WITHOUT CONTRAST CLINICAL HISTORY: Neck and back pain following fall. COMPARISON STUDY: Cervical spine CT October 14, 2014 and MRI of the cervical spine January 23, 2016. TECHNIQUE: Helical axial images of the cervical spine were obtained without IV contrast. Sagittal and coronal reconstructions were viewed. FINDINGS: There is straightening of the normal cervical lordosis. Craniocervical junction is intact. There is no acute fracture. [id number] multilevel degenerative changes are present. IMPRESSION: No acute cervical spine fracture or subluxation. Electronically signed by: Mike Silverman M.D. 10/09/2016 6:02 PM Dictated Date/Time: 10/09/2016 6:00 PM
--- NOTE | 2016-10-09 18:14 | DIAGNOSTIC IMAGING REPORT ---
CT OF THE CHEST WITHOUT IV CONTRAST CLINICAL HISTORY: Left-sided chest pain following fall. COMPARISON STUDY: Chest CT April 14, 2015 and chest radiograph May 25, 2016 TECHNIQUE: Axial images of the chest were obtained without IV contrast. Images were reviewed in the axial, sagittal, and coronal planes. IV contrast was not administered for this examination. FINDINGS: There is no pneumothorax or pleural effusion. There is no evidence for traumatic injury to the thoracic aorta on this unenhanced exam. Evaluation of the thoracic aorta suboptimal on this exam. There are no enlarged thoracic lymph nodes. There are a few scattered groundglass opacities within the lungs. There is no confluent consolidation. A few old right-sided rib fractures are present. No acute rib fracture is identified on this examination. The thoracic spine will be reported separately. The abdomen and pelvis will be reported separately. IMPRESSION: 1. No pneumothorax. 2. A few scattered groundglass opacities within the lungs. These favor atelectasis although a mild infectious process could appear similar. Pulmonary contusions are considered less likely. 3. No definite acute rib fractures identified. A few nondisplaced right-sided rib fractures are likely old. Electronically signed by: Mike Silverman M.D. 10/09/2016 6:13 PM Dictated Date/Time: 10/09/2016 6:03 PM
--- NOTE | 2016-10-09 18:17 | DIAGNOSTIC IMAGING REPORT ---
CT THORACIC SPINE WITHOUT CLINICAL HISTORY: Back pain following fall TECHNIQUE: Axial images of the thoracic spine were obtained without IV contrast. Sagittal and coronal reconstructions were viewed. COMPARISON STUDY: Chest CT April 14, 2015. FINDINGS: Alignment of the thoracic spine is anatomic. Vertebral body heights are maintained. There is no acute thoracic spine fracture. Mild multilevel degenerative changes are present. The canal is suboptimally assessed by CT. There is an old mild L1 compression fracture. IMPRESSION: No acute thoracic spine fracture or subluxation. Electronically signed by: Mike Silverman M.D. 10/09/2016 6:15 PM Dictated Date/Time: 10/09/2016 6:13 PM
--- NOTE | 2016-10-09 18:20 | DIAGNOSTIC IMAGING REPORT ---
CT LUMBAR SPINE WITHOUT CLINICAL HISTORY: Back pain following fall TECHNIQUE: Axial images of the lumbar spine were obtained without IV contrast. Sagittal and coronal reconstructions were viewed COMPARISON STUDY: CT of the abdomen and pelvis August 16, 2016. FINDINGS: No acute lumbar spine fracture is identified. There are old mild to moderate compression deformities of the superior endplates of L1, L3 and L4. These are unchanged since prior CT of August 31, 2016. Mild multilevel degenerative changes are present. Paravertebral soft tissues are unremarkable. IMPRESSION: 1. No acute lumbar spine fracture or subluxation. 2. Old compression deformities of L1, L3 and L4 which are unchanged. Electronically signed by: Mike Silverman M.D. 10/09/2016 6:18 PM Dictated Date/Time: 10/09/2016 6:16 PM
[2016-10-09] MEDS ORDERED: GLC/500 PO (18:51)
[2016-10-09] MEDS ORDERED: TAMS0.4C38 PO (18:55)
[2016-10-09] MEDS ORDERED: LEVO100T PO (18:55)
[2016-10-09] MEDS ORDERED: METO-157 PO (18:55)
[2016-10-09] MEDS ORDERED: LISI-461 PO (18:55)
[2016-10-09] MEDS ORDERED: OXYC-57 PO (19:00)
[2016-10-09] MEDS ORDERED: PERCOCET HOME PACK PO ONE (19:00)
[2016-10-09] MEDS ORDERED: ROSU20TA PO (19:00)
--- NOTE | 2016-10-09 19:01 | EMERGENCY ROOM VISIT NOTE ---
History First contact with patient: 16:30 Chief Complaint: FALL Stated Complaint: FELL,HURT SPINE & RIBS,HURTS TO BREATHE History of Present Illness The patient is a 61 year old female who presents to the Emergency Room for evaluation of a fall. The patient states that she was walking upstairs carrying laundry yesterday and lost her balance, falling backwards down several steps. She reports pain in her head, low back, neck and the left side of her ribs. She rates her discomfort a 10/10. She states that she took one of her leftover oxycodone with some relief of her pain. She states that it is difficult to breathe due to the rib pain. She denies any loss of consciousness. She denies any nausea, vomiting, numbness, weakness, blurred vision or slurred speech. Review of Systems A complete 10-point Review of Systems was discussed with the patient, with pertinent positives and negatives listed in the History of Present Illness. All remaining Review of Systems questions can be considered negative unless otherwise specified. Past Medical/Surgical History Medical Problems: (1) Adhesion of abdominal wall (2) Adult hypothyroidism (3) Anxiety (4) Calculus of kidney and ureter (5) Carpal tunnel syndrome on both sides (6) Deep venous thrombosis (7) Depression (8) Diabetic gastroparesis (9) Diabetic neuropathy (10) Diverticulosis of colon without diverticulitis (11) DJD (degenerative joint disease) (12) DM type 2 (diabetes mellitus, type 2) (13) Dyslipidemia (14) Essential hypertension (15) HTN (hypertension) (16) Obesity (17) Pulmonary embolism (18) Transient ischemic attack (19) Vertebral fracture (20) Vertigo (21) Vitamin D deficiency Surgical Problems: (1) Bilateral tubal ligation (2) H/O knee surgery (3) Hysterectomy (4) Oophorectomy (5) S/p breast lesion excision (6) S/P dilation and curettage (7) S/P laparoscopic cholecystectomy (8) S/P left knee arthroscopy (9) S/p lysis of adhesions (10) S/p small bowel repair Family History " heart condition " SISTER (not CAD, passed at age 42) SISTER (not CAD, passed at 59) Cancer Diabetes mellitus Heart disease Hypertension Kidney disease Lung disease Seizures Social History Smoking Status: Never Smoker Alcohol Use: none Drug Use: none Marital Status: Housing Status: lives with family Occupation Status: retired Current/Historical Medications Scheduled Bupropion HCl (Bupropion HCl Sr), 100 MG PO QAM Cholecalciferol (Vitamin D3), 1,000 INTER.UNIT PO QAM Clopidogrel (Plavix), 75 MG PO QAM Ferrous Sulfate (Ferrous Sulfate), 325 MG PO QAM Gabapentin (Neurontin), 400 MG PO TID Insulin Aspart (Novolog), 10 UNITS SC AC Insulin Glargine (Lantus), 42 UNITS SQ BID Levothyroxine Sodium (Synthroid), 100 MCG PO DAILY Lisinopril (Zestril), 10 MG PO DAILY Metformin Hcl (Glucophage), 500 MG PO BID Metoclopramide (Reglan), 10 MG PO TIDM Metoprolol Tartrate (Lopressor) (Lopressor), 25 MG PO BID Rosuvastatin Calcium (Crestor), 20 MG PO DAILY Sertraline Hcl (Zoloft), 200 MG PO QAM Tamsulosin Hcl (Flomax), 0.4 MG PO DAILY Warfarin Sodium (Coumadin), 2.5 MG PO 5XWK Warfarin Sodium (Coumadin), 5 MG PO 2XWK Scheduled PRN Oxycodone/Acetaminophen 5MG/325MG (Percocet 5MG/325MG), 1-2 TABS PO Q4H PRN for Pain Allergies Coded Allergies: Adhesives (Verified Allergy, Unknown, RASH, 09/28/16) Iodinated Diagnostic Agents (Verified Allergy, Unknown, burning and aching in veins, 09/28/16) Latex1 -Allergic Contact Dermititis (Verified Allergy, Unknown, 09/28/16) Penicillins (Verified Allergy, Unknown, n/v, rash, 09/28/16) Ketorolac (Verified Adverse Reaction, Mild, ITCHING., 09/28/16) Tromethamine (Verified Adverse Reaction, Mild, ITCHING., 09/28/16) Aspirin (Verified Adverse Reaction, Unknown, currently with gastric ulcer , per pt, 09/28/16) Physical Exam Vital Signs Date Time Temp Pulse Resp B/P Pulse Ox O2 Delivery O2 Flow Rate FiO2 10/09/16 19:16 90 16 100/46 94 10/09/16 16:06 36.9 100 18 147/74 100 Room Air Physical Exam VITALS: Vitals are noted on the nurse's note and reviewed by myself. Vital signs stable. GENERAL: This is a 7-year-old female, in no acute distress, nondiaphoretic, well -developed well-nourished. SKIN: Capillary reflex less than 2 seconds. HEENT: Normocephalic. PERRLA. EOMI. Nares patent. Mucous membranes moist. Neck is supple without nuchal rigidity. HEART: Regular rate and rhythm without murmurs gallops or rubs. LUNGS: Clear to auscultation bilaterally without wheezes, rales or rhonchi. No retractions or accessory muscle use. ABDOMEN: Positive bowel sounds x 4. Soft, nontender to palpation. MUSCULOSKELETAL: There is tenderness over the length of the spine. There is tenderness over the left anterior ribs. NEURO: Patient was alert and oriented to person place and time. Normal sensation to light and sharp touch. No focal neurological deficits. Medical Decision & Procedures ER Provider Diagnostic Interpretation: CT OF THE HEAD WITHOUT CONTRAST IMPRESSION: 1. No acute intracranial findings. 2. No calvarial fracture. CT OF THE CERVICAL SPINE WITHOUT CONTRAST IMPRESSION: No acute cervical spine fracture or subluxation. CT THORACIC SPINE WITHOUT IMPRESSION: No acute thoracic spine fracture or subluxation. CT LUMBAR SPINE WITHOUT IMPRESSION: 1. No acute lumbar spine fracture or subluxation. 2. Old compression deformities of L1, L3 and L4 which are unchanged. CT OF THE CHEST WITHOUT IV CONTRAST IMPRESSION: 1. No pneumothorax. 2. A few scattered groundglass opacities within the lungs. These favor atelectasis although a mild infectious process could appear similar. Pulmonary contusions are considered less likely. 3. No definite acute rib fractures identified. A few nondisplaced right-sided rib fractures are likely old. Laboratory Results Test 10/09/16 17:05 Bedside Hemoglobin 15.0 g/dl (12.0-16.0) Bedside Hematocrit 44 % (37-47) Bedside Sodium 138 mEq/L (135-144) Bedside Potassium 4.9 mEq/L (3.3-5.0) Bedside Chloride 96 mEq/L (101-112) Bedside Total CO2 27 mEq/l (24-31) Anion Gap 21.0 mmol/L (16-25) Bedside Blood Urea Nitrogen 14 mg/dl (7-18) Bedside Creatinine 0.7 mg/dl (0.6-1.3) Bedside Glucose (other) 322 mg/dl (70-99) Bedside Ionized Calcium (Kiran) 1.16 mmol/l (1.12-1.32) Medications Administered Medications (Trade) Dose Ordered Sig/Frankie Route Start Time Stop Time Status Last Admin Dose Admin Morphine Sulfate (MoRPHine SULFATE INJ) 6 mg NOW STAT IM 10/09/16 16:48 10/09/16 16:49 DC 10/09/16 17:13 6 MG Oxycodone/ Acetaminophen (Percocet 5/ 325MG Home Pack) 1 homepack UD ONCE PO 10/09/16 19:00 10/09/16 19:01 DC 10/09/16 19:11 1 HOMEPACK Medical Decision Differential diagnosis includes intracranial hemorrhage, concussion, skull fracture, compression fracture, rib fracture, contusions, among others. The patient was evaluated as above. She was given 6 mg morphine IM for pain. CT scans were performed and read by radiology as above. There were no acute fractures noted. CT of the head showed no intracranial hemorrhage or skull fractures. The patient was given a short course of pain medication to take at home. Based on the patient's presentation, lab results, and imaging studies, I feel the patient is stable for outpatient treatment. Discharge instructions were reviewed with the patient. The patient verbalized understanding of my assessment and treatment plan and was discharged home in good condition. [place] Drug Monitoring [place] Search Results: patient reviewed within database, no issues identified Impression Primary Impression: Fall Additional Impression: Contusion of multiple sites Departure Information Dispostion Home / Self-Care Condition GOOD Prescriptions Oxycodone/Acetaminophen 5MG/325MG (PERCOCET 5MG/325MG) Tab 1-2 TABS PO Q4H Y for Pain, #15 TAB For Initial Treatment Prov: Sylvia Conley .DEYSI 10/09/16 Referrals Adria Hilliard M.D. (PCP) Patient Instructions My [facility] Additional Instructions For pain control, you can use the following [id number] medicines (if >12 yo): - Regular strength (325mg/tab) Tylenol (acetaminophen) 2 tabs every 4-6 hours as needed. Do not exceed 12 tablets in a 24 hour period. Avoid taking more than 4 grams (4000 mg) of Tylenol per day. This includes any other sources of acetaminophen you may take on a regular basis. - Regular strength (200 mg/tab) Advil (ibuprofen) 1-2 tabs every 4-6 hours as needed. Do not exceed a dose of 3200 mg per day. You have been prescribed Percocet to be used for pain control. Take 1-2 tablets every 4-6 hours as needed for pain. This is a narcotic medication. You cannot drive or consume alcohol while on this medicine. This medicine should only be used for pain that cannot be controlled with [id number] pain medicines. Follow-up with your primary care provider this week for further evaluation of your symptoms. Return to the emergency department with any new/concerning symptoms. Problem Qualifiers Primary Impression: Fall Encounter type: initial encounter Qualified Codes: W19.XXXA - Unspecified fall, initial encounter
[2016-10-09 19:16] VITALS: BP 100/46; PULSE 90; O2SAT 94
[2016-10-09] MEDS ORDERED: FRRS300 PO (21:11)
[2016-10-09] MEDS ORDERED: GABA1CAP5 PO (23:20)
[2016-11-04] MEDS ORDERED: TPRSR25 PO (12:43)
[2016-11-04] MEDS ORDERED: MRLP17 PO (12:43)
[2016-11-04] MEDS ORDERED: ULT50X PO (12:43)
[2016-11-04] MEDS ORDERED: CMD5 PO (12:43)
[2016-11-04] MEDS ORDERED: ACET-1138 PO (12:43)
[2017-04-19] MEDS ORDERED: LSN20 PO (14:20)
[2017-04-19] MEDS ORDERED: METO25TA3 PO (14:20)
[2017-04-19] MEDS ORDERED: NRN800 PO (14:20)
== END 2016-10-09 19:18 | disposition home or self-care (01) ==
LOC: C.EDB 16:04
DX: T07 Unspecified multiple injuries (principal); W10.9XXA Fall (on) (from) unspecified stairs and steps, initial encounter; Y93.E2 Activity, laundry; E03.9 Hypothyroidism, unspecified; F32.9 Major depressive disorder, single episode, unspecified; E11.43 Type 2 diabetes mellitus with diabetic autonomic (poly)neuropathy; I10 Essential (primary) hypertension; E66.9 Obesity, unspecified; E78.5 Hyperlipidemia, unspecified; Z86.73 Personal history of transient ischemic attack (TIA), and cerebral infarction without residual deficits; Z79.01 Long term (current) use of anticoagulants; Z86.718 Personal history of other venous thrombosis and embolism; Z88.0 Allergy status to penicillin; Z79.4 Long term (current) use of insulin; Z90.710 Acquired absence of both cervix and uterus; Z90.49 Acquired absence of other specified parts of digestive tract; Z82.49 Family history of ischemic heart disease and other diseases of the circulatory system; Z84.1 Family history of disorders of kidney and ureter; Z83.3 Family history of diabetes mellitus

== ENCOUNTER 2016-10-17 18:06 | Emergency (ER) | payer BC ==
[~2016-10-17] VITALS: Ht 160 cm; Wt 85.0 kg
[~2016-10-17 18:06] MED LIST changes: -AZIT250T5 PO; +CLOP1TAB15 PO; -CMD5 PO; +FRRS300 PO; +GABA1CAP5 PO; +GLC/500 PO; +LEVO100T PO; +LISI-461 PO; +METO-157 PO; +OXYC-57 PO; +ROSU20TA PO; +SERT100T PO; +TAMS0.4C38 PO; -WARF-246 PO; +WARF5TAB90 PO
[2016-10-17 18:17] VITALS: Ht 160 cm; Wt 85.0 kg
[2016-10-17 18:54] VITALS: TEMP 36.9; O2SAT 95
[2016-10-17 18:57] LABS: HEMATOCRIT 38.7 % (37-47); MEAN CORPUSCULAR HEMOGLOBIN 31.3 pg (25-34); MEAN CORPUSCULAR HGB CONC 35.1 g/dl (32-36); MEAN PLATELET VOLUME 9.8 fL (7.4-10.4); PLATELET COUNT 205 K/uL (130-400); RED BLOOD COUNT 4.35 M/uL (4.2-5.4); WHITE BLOOD COUNT 7.93 K/uL (4.8-10.8)
--- NOTE | 2016-10-17 19:03 | DIAGNOSTIC IMAGING REPORT ---
CHEST ONE VIEW PORTABLE CLINICAL HISTORY: chest pain dyspnea COMPARISON STUDY: 05/25/2016 FINDINGS: The bones soft tissues and hemidiaphragms are normal. The cardiomediastinal silhouette is normal. The lungs are clear. The pulmonary vasculature is normal. IMPRESSION: Negative chest. Electronically signed by: Adria Houston M.D. 10/17/2016 7:02 PM Dictated Date/Time: 10/17/2016 7:02 PM
[2016-10-17 19:09] LABS: INR 2.4 (0.9-1.1); PARTIAL THROMBOPLASTIN RATIO 1.1; PROTHROMBIN TIME (PATIENT) 26.1 SECONDS (9.0-12.0)
[2016-10-17 19:28] LABS: CREATININE 0.8 mg/dl (0.60-1.20)
[2016-10-17] MEDS ORDERED: OXYCODONE/ACETAMINOPHEN 5-325 TAB PO ONE ×2 (19:30→21:15)
[2016-10-17 19:32] LABS: POTASSIUM 4.3 mmol/L (3.5-5.1)
--- NOTE | 2016-10-17 19:40 | EMERGENCY ROOM VISIT NOTE ---
History Report prepared by Suyapa: Ruperto Lin Under the Supervision of: Dr. Igor Perez M.D. First contact with patient: 19:10 Chief Complaint: CHEST PAIN Stated Complaint: LEFT SIDE OF CHEST PAIN, TAILBONE VERY PAINFUL Nursing Triage Summary: Patient fell down last week and was seen. has been having left rib pain and axilla pain along with tail bone pain since. states it hurts to walk and hurts to take a deep breath. states the pain goes up under her left breast area and she cannot sleep on her left side at all. History of Present Illness The patient is a 61 year old female who presents to the Emergency Room with complaints of severe and worsening pain in her left ribs and under her left breast that began on Sunday, nine days prior to arrival. Her rib pain is causing her to be short of breath, and she notes that it shoots up into the left side of her neck. The patient was in the emergency department on Sunday following a falling episode. The patient was experiencing pain in her ribs following the fall, but it has worsened since. She fell on to her tail bone and notes that her lower back hurts significantly now as well. 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 Please see Additional Medical History Sheet. Past Medical & Surgical Medical Problems: (1) Adhesion of abdominal wall (2) Adult hypothyroidism (3) Anxiety (4) Calculus of kidney and ureter (5) Carpal tunnel syndrome on both sides (6) Deep venous thrombosis (7) Depression (8) Diabetic gastroparesis (9) Diabetic neuropathy (10) Diverticulosis of colon without diverticulitis (11) DJD (degenerative joint disease) (12) DM type 2 (diabetes mellitus, type 2) (13) Dyslipidemia (14) Essential hypertension (15) HTN (hypertension) (16) Obesity (17) Pulmonary embolism (18) Transient ischemic attack (19) Vertebral fracture (20) Vertigo (21) Vitamin D deficiency Surgical Problems: (1) Bilateral tubal ligation (2) H/O knee surgery (3) Hysterectomy (4) Oophorectomy (5) S/p breast lesion excision (6) S/P dilation and curettage (7) S/P laparoscopic cholecystectomy (8) S/P left knee arthroscopy (9) S/p lysis of adhesions (10) S/p small bowel repair Family History " heart condition " SISTER (not CAD, passed at age 42) SISTER (not CAD, passed at 59) Cancer Diabetes mellitus Heart disease Hypertension Kidney disease Lung disease Seizures Social History Smoking Status: Never Smoker Alcohol Use: none Drug Use: none Marital Status: Housing Status: lives with family Occupation Status: retired Current/Historical Medications Scheduled Bupropion HCl (Bupropion HCl Sr), 100 MG PO QAM Cholecalciferol (Vitamin D3), 1,000 INTER.UNIT PO QAM Ferrous Sulfate (Ferrous Sulfate), 325 MG PO QAM Gabapentin (Neurontin), 400 MG PO TID Insulin Aspart (Novolog), 16 UNITS SC AC Insulin Glargine (Lantus), 42 UNITS SQ BID Levothyroxine Sodium (Synthroid), 100 MCG PO DAILY Lisinopril (Zestril), 10 MG PO DAILY Metformin Hcl (Glucophage), 500 MG PO BID Metoclopramide (Reglan), 10 MG PO TIDM Metoprolol Tartrate (Lopressor) (Lopressor), 25 MG PO BID Rosuvastatin Calcium (Crestor), 20 MG PO DAILY Sertraline Hcl (Zoloft), 200 MG PO QAM Tamsulosin Hcl (Flomax), 0.4 MG PO DAILY Warfarin Sodium (Coumadin), 2.5 MG PO 5XWK Warfarin Sodium (Coumadin), 5 MG PO 2XWK Scheduled PRN Oxycodone/Acetaminophen 5MG/325MG (Percocet 5MG/325MG), 1-2 TABLETS PO Q4H PRN for Pain Saline (Carrick Nasal Vina), 1 SPRAY NEENA for Nasal Congestion Allergies Coded Allergies: Adhesives (Verified Allergy, Unknown, RASH, 09/28/16) Iodinated Diagnostic Agents (Verified Allergy, Unknown, burning and aching in veins, 09/28/16) Latex1 -Allergic Contact Dermititis (Verified Allergy, Unknown, 09/28/16) Penicillins (Verified Allergy, Unknown, n/v, rash, 09/28/16) Ketorolac (Verified Adverse Reaction, Mild, ITCHING., 09/28/16) Tromethamine (Verified Adverse Reaction, Mild, ITCHING., 09/28/16) Aspirin (Verified Adverse Reaction, Unknown, currently with gastric ulcer , per pt, 09/28/16) Physical Exam Vital Signs Date Time Temp Pulse Resp B/P Pulse Ox O2 Delivery O2 Flow Rate FiO2 10/17/16 21:25 72 20 130/78 96 10/17/16 20:51 77 20 152/83 96 Room Air 10/17/16 19:55 81 20 147/68 94 Room Air 10/17/16 19:13 85 10/17/16 18:54 95 Room Air 10/17/16 18:54 36.9 84 20 152/72 95 Room Air 10/17/16 18:45 95 Room Air 10/17/16 18:30 98 Room Air 10/17/16 18:17 36.9 84 20 152/72 97 Room Air Physical Exam GENERAL: Patient awake, alert, oriented x 3. Patient follows commands. Patient does not appear toxic. Patient is adequately hydrated and well- nourished. SKIN: No erythema, pallor, cyanosis or rash HEENT: Normal head, pupils equal, reactive to light and accommodation. No wynn sign, no raccoon sign. Oral cavity and posterior pharynx appear normal. Neck: Without adenopathy, no neck vein distention. LUNGS: Clear to auscultation. No wheezes, no rales, no rhonchi. HEART: No murmurs. No gallops. No rubs CHEST: There is tenderness along the left anterior axillary line of her chest, extending below the left breast. No break in the skin, no bruising. ABDOMEN: No masses, no rebound, no hepatomegaly or splenomegaly. BACK: Vague tenderness over the sacrum. EXTREMITIES: Well healed scar on the right knee. No signs of trauma. No pedal or pretibial edema. No calf or thigh tenderness. NEUROLOGIC: Cranial nerves II-XII within normal limits. No gross motor sensory function deficits. Medical Decision & Procedures ER Provider Diagnostic Interpretation: X-ray results as stated below per my interpretation and radiologist interpretation: SACRUM COCCYX MIN 2 VIEWS CLINICAL HISTORY: fell 1 week ago trauma. Pain. COMPARISON STUDY: None FINDINGS: Nondisplaced cortical fracture sacrococcygeal junction. Sacroiliac joints are symmetric. Sacral foramina are symmetric. IMPRESSION: Nondisplaced cortical fracture sacrococcygeal junction Electronically signed by: Adria Houston M.D. 10/17/2016 8:16 PM Dictated Date/Time: 10/17/2016 8:16 PM CHEST ONE VIEW PORTABLE CLINICAL HISTORY: chest pain dyspnea COMPARISON STUDY: 05/25/2016 FINDINGS: The bones soft tissues and hemidiaphragms are normal. The cardiomediastinal silhouette is normal. The lungs are clear. The pulmonary vasculature is normal. IMPRESSION: Negative chest. Electronically signed by: Adria Houston M.D. 10/17/2016 7:02 PM Dictated Date/Time: 10/17/2016 7:02 PM Laboratory Results 10/17/16 18:45 10/17/16 18:45 Test 10/17/16 18:45 10/17/16 18:57 Red Blood Count 4.35 M/uL (4.2-5.4) Mean Corpuscular Volume 89.0 fL (80-100) Mean Corpuscular Hemoglobin 31.3 pg (25-34) Mean Corpuscular Hemoglobin Concent 35.1 g/dl (32-36) RDW Standard Deviation 42.0 fL (36.4-46.3) RDW Coefficient of Variation 13.0 % (11.5-14.5) Mean Platelet Volume 9.8 fL (7.4-10.4) Prothrombin Time 26.1 SECONDS (9.0-12.0) Prothromb Time International Ratio 2.4 (0.9-1.1) Activated Partial Thromboplast Time 27.4 SECONDS (21.0-31.0) Partial Thromboplastin Ratio 1.1 Anion Gap 11.0 mmol/L (3-11) Est Creatinine Clear Calc Drug Dose 77.2 ml/min Estimated GFR () 92.9 Estimated GFR (Non- 80.1 BUN/Creatinine Ratio 18.0 (10-20) Calcium Level 8.8 mg/dl (8.5-10.1) Total Bilirubin 0.4 mg/dl (0.2-1) Aspartate Amino Transf (AST/SGOT) 43 U/L (15-37) Alanine Aminotransferase (ALT/SGPT) 41 U/L (12-78) Alkaline Phosphatase 121 U/L (45-117) Total Creatine Kinase 66 U/L (26-192) Creatine Kinase MB 0.8 ng/ml (0.5-3.6) Creatine Kinase MB Ratio 1.2 (0-3.0) Total Protein 7.3 gm/dl (6.4-8.2) Albumin 3.6 gm/dl (3.4-5.0) Globulin 3.7 gm/dl (2.5-4.0) Albumin/Globulin Ratio 1.0 (0.9-2) Bedside Troponin I 0.000 ng/ml (0-0.045) Laboratory results as stated above per my review. Medications Administered Medications (Trade) Dose Ordered Sig/Frankie Route Start Time Stop Time Status Last Admin Dose Admin Oxycodone/ Acetaminophen (Percocet 5-325mg Tab) 1 tab NOW ONCE PO 10/17/16 19:30 10/17/16 19:31 DC 10/17/16 19:53 1 TAB Oxycodone/ Acetaminophen (Percocet 5-325mg Tab) 1 tab NOW ONCE PO 10/17/16 21:15 10/17/16 21:16 DC 10/17/16 21:07 1 TAB ECG Indication: other (fall) Rate (beats per minute): 85 Rhythm: normal sinus Findings: no acute ischemic change, no ectopy ED Course 1910: Past medical records reviewed. The patient was evaluated in room B7. A complete history and physical examination was performed. 1929: Ordered Oxycodone 1 tablet PO. 2114: Ordered Oxycodone/Acetaminophen 1 tablet PO. 2115: Upon reevaluation, the patient appeared to have improvement of her symptoms. I discussed today's findings with her. I discussed and explained the small fracture of her sacral coccygeal area. She verbalized agreement of the treatment plan. The patient was discharged home. Medical Decision Differential Diagnosis includes: Rib fracture, sacral fracture, costochondritis , muscle strain, contusion. Multiple labs, EKG, imaging were obtained. Please see above. The patient does not appear to have any new fractures or injuries to her chest. She does have some old right rib fractures but her pain is on the opposite side. The patient does have a nondisplaced sacral coccygeal fracture. Patient has no evidence of an acute cardiac event. The patient received Percocet and then another 1 prior to her departure. I believe that she can safely return home. [place] Drug [place] Search Results: patient reviewed within database, no issues identified Impression Primary Impression: Stress fracture of sacrococcygeal region Additional Impression: Fall Scribe Attestation The scribe's documentation has been prepared under my direction and personally reviewed by me in its entirety. I confirm that the note above accurately reflects all work, treatment, procedures, and medical decision making performed by me. Departure Information Dispostion Home / Self-Care Prescriptions Oxycodone/Acetaminophen 5MG/325MG (PERCOCET 5MG/325MG) Tab 1-2 TABLETS PO Q4H Y for Pain, #10 TAB Prov: Igor Perez M.D. 10/17/16 Referrals Adria Hilliard M.D. (PCP) Patient Instructions My [facility] Additional Instructions Use a doughnut for sacral pain. 1-2 Percocet every 4-6 hours as needed for moderate to severe pain. Do not drive or operate machinery while taking Percocet. Continue all of your current medications as prescribed. Problem Qualifiers
[2016-10-17] MEDS ORDERED: SALI0.6510 NAE (19:41)
[2016-10-17 19:52] LABS: CKMB/CK RATIO 1.2 (0-3.0)
--- NOTE | 2016-10-17 20:18 | DIAGNOSTIC IMAGING REPORT ---
SACRUM COCCYX MIN 2 VIEWS CLINICAL HISTORY: fell 1 week ago trauma. Pain. COMPARISON STUDY: None FINDINGS: Nondisplaced cortical fracture sacrococcygeal junction. Sacroiliac joints are symmetric. Sacral foramina are symmetric. IMPRESSION: Nondisplaced cortical fracture sacrococcygeal junction Electronically signed by: Adria Houston M.D. 10/17/2016 8:16 PM Dictated Date/Time: 10/17/2016 8:16 PM
[2016-10-17 20:48] LABS: CALCIUM 8.8 mg/dl (8.5-10.1)
[2016-10-17] MEDS ORDERED: OXYC-57 PO (21:17)
[2016-10-17 21:25] VITALS: BP 130/78; PULSE 72; O2SAT 96
[2016-11-04] MEDS ORDERED: CMD5 PO (12:43)
[2016-11-04] MEDS ORDERED: ULT50X PO (12:43)
[2016-11-04] MEDS ORDERED: TPRSR25 PO (12:43)
[2016-11-04] MEDS ORDERED: MRLP17 PO (12:43)
[2016-11-04] MEDS ORDERED: ACET-1138 PO (12:43)
[2017-04-19] MEDS ORDERED: METO25TA3 PO (14:20)
[2017-04-19] MEDS ORDERED: NRN800 PO (14:20)
[2017-04-19] MEDS ORDERED: LSN20 PO (14:20)
== END 2016-10-17 21:27 | disposition home or self-care (01) ==
LOC: C.EDB 18:08
DX: M48.48XA Fatigue fracture of vertebra, sacral and sacrococcygeal region, initial encounter for fracture (principal); W19.XXXA Unspecified fall, initial encounter; E03.9 Hypothyroidism, unspecified; E11.43 Type 2 diabetes mellitus with diabetic autonomic (poly)neuropathy; E66.9 Obesity, unspecified; I10 Essential (primary) hypertension; E78.5 Hyperlipidemia, unspecified; F32.9 Major depressive disorder, single episode, unspecified; E55.9 Vitamin D deficiency, unspecified; Z87.442 Personal history of urinary calculi; Z86.711 Personal history of pulmonary embolism; Z86.718 Personal history of other venous thrombosis and embolism; Z86.73 Personal history of transient ischemic attack (TIA), and cerebral infarction without residual deficits; Z79.01 Long term (current) use of anticoagulants; Z79.4 Long term (current) use of insulin; Z79.84 Long term (current) use of oral hypoglycemic drugs; Z79.899 Other long term (current) drug therapy; Z83.3 Family history of diabetes mellitus; Z82.49 Family history of ischemic heart disease and other diseases of the circulatory system; Z82.0 Family history of epilepsy and other diseases of the nervous system; Z98.890 Other specified postprocedural states; Z98.51 Tubal ligation status; Z90.710 Acquired absence of both cervix and uterus; Z90.721 Acquired absence of ovaries, unilateral; Z90.49 Acquired absence of other specified parts of digestive tract

== ENCOUNTER 2016-10-27 14:23 | Inpatient (IN) | payer BC ==
[~2016-10-27] VITALS: Ht 160 cm; Wt 85.9 kg
[~2016-10-27 14:23] MED LIST changes: -CLOP1TAB15 PO; +SALI0.6510 NAE
[2016-10-27] MEDS ORDERED: MoRPHine SULFATE 4 MG/ML 1 ML CARP\\VIAL IV STA ×2 (15:11→17:33)
[2016-10-27] MEDS ORDERED: ONDANSETRON INJ 2 MG/ML 2 ML VIAL IV STA (15:11)
--- NOTE | 2016-10-27 15:17 | EMERGENCY ROOM VISIT NOTE ---
History First contact with patient: 15:00 Chief Complaint: FALL Stated Complaint: FALL,LEFT ARM AND HEAD PAIN History of Present Illness The patient is a 61 year old female who presents to the Emergency Room with complaints of "fall, left arm and head.". The patient states that around 1:30 PM this afternoon, she was headed home and walking towards her house and believes she may have passed out, she fell forward and struck the front portion of her head off of the concrete in the left side of the wound. She states that she has been falling lately, and notes that she has been getting dizzy at times , and feeling as if she is walking past which causes her to fall forward. She notes that recently when she passed out, she cracked her tailbone region of which she was seen here recently for her. She follows with Dr. Denise. She states that currently her head hurts, she has slight neck pain, her left knee hurts in the left upper extremity also hurts. She notes mild increase in shortness of breath over the past week. She states that this time she does feel nauseous, slightly blurred vision, has a headache, points to a contusion of the right head shortness of breath with walking the past week, loss consciousness during this fall, is on Coumadin, and does have a headache. She states her last INR was 3.2 yesterday. She denies any pelvic pain, chest pain, fevers, chills, vomiting. She denies any new back pain. Her tetanus is up-to- date. Review of Systems A complete 10-point Review of Systems was discussed with the patient, with pertinent positives and negatives listed in the History of Present Illness. All remaining Review of Systems questions can be considered negative unless otherwise specified. Past Medical/Surgical History Medical Problems: (1) Adhesion of abdominal wall (2) Adult hypothyroidism (3) Anxiety (4) Calculus of kidney and ureter (5) Carpal tunnel syndrome on both sides (6) Deep venous thrombosis (7) Depression (8) Diabetic gastroparesis (9) Diabetic neuropathy (10) Diverticulosis of colon without diverticulitis (11) DJD (degenerative joint disease) (12) DM type 2 (diabetes mellitus, type 2) (13) Dyslipidemia (14) Essential hypertension (15) HTN (hypertension) (16) Obesity (17) Pulmonary embolism (18) Transient ischemic attack (19) Vertebral fracture (20) Vertigo (21) Vitamin D deficiency Surgical Problems: (1) Bilateral tubal ligation (2) H/O knee surgery (3) Hysterectomy (4) Oophorectomy (5) S/p breast lesion excision (6) S/P dilation and curettage (7) S/P laparoscopic cholecystectomy (8) S/P left knee arthroscopy (9) S/p lysis of adhesions (10) S/p small bowel repair Family History " heart condition " SISTER (not CAD, passed at age 42) SISTER (not CAD, passed at 59) Cancer Diabetes mellitus Heart disease Hypertension Kidney disease Lung disease Seizures Social History Smoking Status: Never Smoker Alcohol Use: none Drug Use: none Marital Status: Housing Status: lives with family Occupation Status: retired Current/Historical Medications Scheduled Bupropion HCl (Bupropion HCl Sr), 100 MG PO TID Cholecalciferol (Vitamin D3), 1,000 INTER.UNIT PO QAM Ferrous Sulfate (Ferrous Sulfate), 325 MG PO QAM Gabapentin (Neurontin), 600 MG PO TID Insulin Aspart (Novolog), 16 UNITS SC AC Insulin Glargine (Lantus), 42 UNITS SQ BID Levothyroxine Sodium (Synthroid), 100 MCG PO DAILY Lisinopril (Zestril), 20 MG PO DAILY Metformin Hcl (Glucophage), 500 MG PO BID Metoclopramide (Reglan), 10 MG PO TIDM Metoprolol Tartrate (Lopressor) (Lopressor), 12.5 MG PO BID Rosuvastatin Calcium (Crestor), 20 MG PO DAILY Sertraline Hcl (Zoloft), 200 MG PO QAM Tamsulosin Hcl (Flomax), 0.4 MG PO DAILY Warfarin Sodium (Coumadin), 2.5 MG PO 5XWK Warfarin Sodium (Coumadin), 5 MG PO 2XWK Scheduled PRN Oxycodone Ir (Roxicodone Ir), 1-2 TAB PO Q6H PRN for Severe Pain Saline (Delmar Nasal [place]), 1 SPRAY NEENA for Nasal Congestion Allergies Coded Allergies: Adhesives (Verified Allergy, Unknown, RASH, 09/28/16) Iodinated Diagnostic Agents (Verified Allergy, Unknown, burning and aching in veins, 09/28/16) Latex1 -Allergic Contact Dermititis (Verified Allergy, Unknown, 09/28/16) Penicillins (Verified Allergy, Unknown, n/v, rash, 09/28/16) Ketorolac (Verified Adverse Reaction, Mild, ITCHING., 09/28/16) Tromethamine (Verified Adverse Reaction, Mild, ITCHING., 09/28/16) Aspirin (Verified Adverse Reaction, Unknown, currently with gastric ulcer , per pt, 09/28/16) Physical Exam Vital Signs Date Time Temp Pulse Resp B/P Pulse Ox O2 Delivery O2 Flow Rate FiO2 10/27/16 20:04 70 20 170/95 98 10/27/16 19:10 76 20 176/95 98 Room Air 10/27/16 17:48 78 20 185/98 92 Room Air 10/27/16 15:49 Room Air 10/27/16 15:43 82 20 185/98 96 Room Air 10/27/16 14:29 36.6 81 20 209/115 94 Room Air Physical Exam VITAL SIGNS - Vital signs and nursing notes were reviewed. Patient is afebrile , she is hypertensive at 209/115, she is not tachycardic and saturating well on room air 94%. GENERAL -61-year-old female appearing her stated age who is in no acute distress. Communicates well with provider and answers questions appropriately. SKIN - Without rashes. HEAD - NC/AT. There is a contusion over the right frontoparietal region, with evidence of a linear laceration. There is also a small laceration over the left frontoparietal region. There is minimal bleeding at this time. No hemotympanum or raccoons eyes. EYES - PERRL with EOMI bilaterally. Without subconjunctival hemorrhage. Palpebral conjunctiva pink and moist with no injection. EARS - No deformities of external structures noted on gross examination bilaterally. No hemotympanum present. No tympanic perforation noted. NOSE - Midline and without cyanosis. No epistaxis or clear watery discharge noted. Septum midline without deviation. No septal hematoma noted. No overlying ecchymosis noted. MOUTH/OROPHARYNX - Without perioral cyanosis. Tongue midline with equal elevation of palate bilaterally. No blood noted in the oropharynx. No tonsillar hypertrophy, erythema, or exudates noted. No dental fractures noted. NECK - FROM assessed. No tenderness to palpation over the cervical spinous processes. No cervical paraspinal muscle tenderness noted. LUNGS - Chest wall symmetric without accessory muscle use, intercostals retractions, or central cyanosis. Normal vesicular breath sounds CTA B/L. No wheezes, rales, or rhonchi appreciated. CARDIAC - RRR with S1/S2. No murmur, rubs, or gallops appreciated. No tenderness to palpation of the chest. MUSCULOSKELETL: There is no anterior or posterior chest tenderness. No spinous processes tenderness. No abdominal tenderness. There is tenderness to palpation of the entire left upper extremity, and left anterior knee. There is no hip tenderness, no tenderness with pelvic rock. There is contusion overlying both anterior knees. EXTREMITIES - No gross deformities noted of the extremities. +5/5 strength noted in UE/LE bilaterally. NEUROLOGIC - Cranial nerves II through XII grossly intact. Sensory intact to light touch throughout. PSYCH - A&Ox3 and cooperates fully with examiner. Pt is very pleasant and interacts well with examiner. Medical Decision & Procedures ER Provider Diagnostic Interpretation: LEFT KNEE 3 VIEWS CLINICAL HISTORY: Left knee pain s/p fall COMPARISON: None. DISCUSSION: The bones and joint spaces appear intact. There is no evidence of fracture, dislocation or bony disease. There is no evidence for soft tissue swelling. IMPRESSION: Negative study. Electronically signed by: Adria Houston M.D. 10/27/2016 5:23 PM Dictated Date/Time: 10/27/2016 5:[address] DOSE: HISTORY: Neck pain. Fell, struck frontal/right parietal region. Anticoagulated. LOC TECHNIQUE: Multiaxial CT images of the cervical spine were performed and reformatted in the sagittal and coronal plane without the use of contrast. COMPARISON: None. FINDINGS: No fractures. No subluxation. Prevertebral soft tissues and the C1-C2 interval are intact. No pneumothorax. Moderate disc space narrowing at C5-C6 and C6-C7 with endplate osteophytes. There is slight reversal of the normal lordotic curvature. IMPRESSION: No fractures within the cervical spine. Electronically signed by: Moses Pineda M.D. 10/27/2016 4:08 PM Dictated Date/Time: 10/27/2016 4:03 PM CHEST ONE VIEW PORTABLE CLINICAL HISTORY: Dyspnea, fall trauma COMPARISON STUDY: No previous studies for comparison. FINDINGS: The bones soft tissues and hemidiaphragms are normal. The cardiomediastinal silhouette is normal. The lungs are clear. The pulmonary vasculature is normal. IMPRESSION: Negative chest. Electronically signed by: Adria Houston M.D. 10/27/2016 5:21 PM Dictated Date/Time: 10/27/2016 5:21 PM LEFT FOREARM 2 VIEWS ROUTINE CLINICAL HISTORY: left upper extremity pain s/p fall pain COMPARISON: None. DISCUSSION: Transverse fracture distal radius and most likely ulna. Mild soft tissue edema. Mild dorsal displacement of the fracture moderate soft tissue edema IMPRESSION: Transverse fractures distal radius and most likely ulna with mild dorsal displacement Electronically signed by: Adria Houston M.D. 10/27/2016 5:20 PM Dictated Date/Time: 10/27/2016 5:18 PM LEFT HAND MIN 3 VIEWS ROUTINE CLINICAL HISTORY: left upper extremity pain s/p fall trauma COMPARISON: None. DISCUSSION: Transverse fracture distal radius. Fracture distal ulna. Mild dorsal displacement. Generalized soft tissue edema. IMPRESSION: Dorsally displaced fractures of the distal radius and ulna Electronically signed by: Adria Houston M.D. 10/27/2016 5:22 PM Dictated Date/Time: 10/27/2016 5:[address]AST CT DOSE: 978.73 mGy.cm HISTORY: Trauma Fell, struck frontal/right parietal region. Anticoagulated. LOC TECHNIQUE: Multiaxial CT images of the head were performed without the use of intravenous contrast. Comparison: 10/09/2016 Findings: The paranasal sinuses and mastoid air cells are clear. The calvarium and skull base are intact. The ventricles and sulci are within normal limits. There is no mass, hematoma, midline shift, or acute infarct. Right extracranial soft tissue edema Impression: No acute intracranial abnormality. Right extracranial prefrontal soft tissue edema Electronically signed by: Adria Houston M.D. 10/27/2016 4:04 PM Dictated Date/Time: 10/27/2016 4:02 PM LEFT HUMERUS MIN 2 VIEWS ROUTINE CLINICAL HISTORY: left upper extremity pain s/p fall COMPARISON: None. DISCUSSION: The bones and joint spaces appear intact. There is no evidence of fracture, dislocation or bony disease. There is no evidence for soft tissue swelling. IMPRESSION: Negative study. Electronically signed by: Adria Houston M.D. 10/27/2016 5:23 PM Dictated Date/Time: 10/27/2016 5:23 PM Laboratory Results Test 10/27/16 15:38 10/27/16 15:40 Immature Granulocyte % (Auto) 0.3 % White Blood Count 8.58 K/uL (4.8-10.8) Red Blood Count 4.57 M/uL (4.2-5.4) Hemoglobin 14.1 g/dL (12.0-16.0) Hematocrit 40.3 % (37-47) Mean Corpuscular Volume 88.2 fL (80-100) Mean Corpuscular Hemoglobin 30.9 pg (25-34) Mean Corpuscular Hemoglobin Concent 35.0 g/dl (32-36) Platelet Count 190 K/uL (130-400) Mean Platelet Volume 9.5 fL (7.4-10.4) Neutrophils (%) (Auto) 78.6 % Lymphocytes (%) (Auto) 14.3 % Monocytes (%) (Auto) 5.6 % Eosinophils (%) (Auto) 0.9 % Basophils (%) (Auto) 0.3 % Neutrophils # (Auto) 6.73 K/uL (1.4-6.5) Lymphocytes # (Auto) 1.23 K/uL (1.2-3.4) Monocytes # (Auto) 0.48 K/uL (0.11-0.59) Eosinophils # (Auto) 0.08 K/uL (0-0.5) Basophils # (Auto) 0.03 K/uL (0-0.2) Immature Granulocyte # (Auto) 0.03 K/uL (0.00-0.02) Activated Partial Thromboplast Time 33.8 SECONDS (21.0-31.0) Partial Thromboplastin Ratio 1.3 Beta-Hydroxybutyric Acid 1.94 mg/dL (0.2-2.81) Bedside Troponin I 0.000 ng/ml (0-0.045) Medications Administered Medications (Trade) Dose Ordered Sig/Frankie Route Start Time Stop Time Status Last Admin Dose Admin Morphine Sulfate (MoRPHine SULFATE INJ) 4 mg NOW STAT IV 10/27/16 15:11 10/27/16 15:16 DC 10/27/16 15:11 4 MG Ondansetron HCl (Zofran Inj) 4 mg NOW STAT IV 10/27/16 15:11 10/27/16 15:16 DC 10/27/16 15:44 4 MG Lidocaine HCl (Buffered Lidocaine 1% Inj) 20 ml ONE STAT INFIL 10/27/16 15:43 10/27/16 20:40 DC 10/27/16 15:43 20 ML Morphine Sulfate (MoRPHine SULFATE INJ) 4 mg NOW STAT IV 10/27/16 17:33 10/27/16 17:35 DC 10/27/16 17:47 4 MG Acetaminophen (Tylenol Tab) 650 mg Q4H PRN PO 10/27/16 19:15 11/26/16 19:14 10/28/16 04:29 650 MG Morphine Sulfate (MoRPHine SULFATE INJ) 4 mg Q4H PRN IV 10/27/16 19:30 10/27/16 22:48 DC 10/27/16 21:15 4 MG Medical Decision The patient was seen and evaluated as above. After obtaining a thorough history and physical examination IV access was initiated, you of workup was performed. The patient presents with what appears to be a fall with potential syncopal episode, large right frontal hematoma with evidence of minor laceration at the superior aspect of this hematoma as well as over the left forehead. These were cleansed and pressure was applied to the wound edges without evidence of separation. I do not feel that closure at this time is appropriate as it appears that these are superficial with large hematoma underneath the right frontoparietal region. The patient is on Coumadin, therefore her INR was assessed. Radiographs were obtained of the left upper extremity, left knee and CT of the head and neck were also performed. Initial blood work revealed no leukocytosis, anemia, an INR of 2.4 was noted, electrolytes within normal limits, kidney function within normal limits, point- of-care glucose elevated at 336, calcium 9.9, [id number] troponin negative, beta hydroxy but uric acid 1.94. Patient's EKG reveals normal sinus rhythm, rate of 80 bpm, potential septal infarct, age undetermined. This was compared with EKG of 10/17/2016, and no significant change was found. This was also confirmed by first sampler. Results of the imaging as noted above. The head was unremarkable, C-spine negative for acute process. There was a fracture noted of the distal left forearm. This was discussed with the patient, and the decision was made to call the orthopedic surgeon. The patient follows with Dr. Cortez, therefore I spoke with Dr. Restrepo, one of the physicians in this group. The call took place at 5:36 PM, and Dr. Restrepo noted that he would call him back after thoroughly reviewing the radiographs. I then received a call from him at 5:48 PM, he indicated that he would like to come in and evaluate the patient as this may need surgical intervention. The patient was evaluated by him. I did thoroughly cleanse the wounds on the patient's head. I again do not feel that closure of the wounds at this time is appropriate. The right forehead hematoma does appear to be enlarging. I did speak with Dr. Restrepo and we shared our concern over the patient's underlying comorbidities, and likely need for medicine consult with admission. He agreed to admit the patient, and noted that medicine will be consult. I also informed him that I'm concerned the patient is on Coumadin at this time. I did order an Ortho-Glass splint for the patient's wrist for temporary immobilization. The patient was also given morphine as well as Zofran for pain and potential nausea. She was reevaluated and noted to be feeling continued pain therefore she was given more morphine. Many attempts were made at trying to make her comfortable. She does appear to be neurovascularly intact in the left upper extremity at this time. Upon one of my reassessments I did speak with the medicine hospitalist, who noted that they would actually be admitting the patient. I did share my concern for her potential syncope. I do believe that inpatient management is warranted. Please refer to further documentation regarding her stay. The patient's tetanus is up-to-date. In the evaluation and treatment of this patient, the following differential diagnoses were considered: Concussion, Contrecoup Injury, Brain Tumor, Depression, Encephalitis, Hypothyroidism, Meningitis, CVA, TIA, Migraine, Cluster Headache, Intracranial Abnormality, Intracranial Hemorrhage, Subdural Hematoma, Subarachnoid Hemorrhage, Hydrocephalus, right upper extremity contusion, fracture, C-spine fracture, C-spine contusion, neck strain, neck sprain, facial laceration, contusion, among others. Impression Primary Impression: Fall Additional Impressions: Contusion of multiple sites Left forearm fracture Forehead contusion Departure Information Dispostion Admitted as an inpatient Condition FAIR Referrals Adria Hilliard M.D. (PCP) Patient Instructions [facility] Health Problem Qualifiers
[2016-10-27] MEDS ORDERED: XYLOCAINE 1%/SOD BICARB 20 ML VIAL INFIL STA (15:43)
[2016-10-27 15:52] LABS: BASO % 0.3 %; BASO ABS # 0.03 K/uL (0-0.2); COMPLETE YES; EOS % 0.9 %; HEMATOCRIT 40.3 % (37-47); IG% 0.3 %; LYMPH % 14.3 %; LYMPH ABS # 1.23 K/uL (1.2-3.4); MEAN CELL VOLUME 88.2 fL (80-100); MEAN CORPUSCULAR HEMOGLOBIN 30.9 pg (25-34); MEAN PLATELET VOLUME 9.5 fL (7.4-10.4); MONO % 5.6 %; NEUT % 78.6 %; PLATELET COUNT 190 K/uL (130-400); RED BLOOD COUNT 4.57 M/uL (4.2-5.4); WHITE BLOOD COUNT 8.58 K/uL (4.8-10.8)
[2016-10-27 16:03] LABS: INR 2.4 (0.9-1.1); PARTIAL THROMBOPLASTIN RATIO 1.3; PROTHROMBIN TIME (PATIENT) 27.1 SECONDS (9.0-12.0)
--- NOTE | 2016-10-27 16:05 | DIAGNOSTIC IMAGING REPORT ---
HEAD CT NONCONTRAST CT DOSE: 978.73 mGy.cm HISTORY: Trauma Fell, struck frontal/right parietal region. Anticoagulated. LOC TECHNIQUE: Multiaxial CT images of the head were performed without the use of intravenous contrast. Comparison: 10/09/2016 Findings: The paranasal sinuses and mastoid air cells are clear. The calvarium and skull base are intact. The ventricles and sulci are within normal limits. There is no mass, hematoma, midline shift, or acute infarct. Right extracranial soft tissue edema Impression: No acute intracranial abnormality. Right extracranial prefrontal soft tissue edema Electronically signed by: Adria Houston M.D. 10/27/2016 4:04 PM Dictated Date/Time: 10/27/2016 4:02 PM
[2016-10-27 16:10] LABS: BUN/CREATININE RATIO 20.4 (10-20); CALCIUM 9.9 mg/dl (8.5-10.1); CREATININE 0.76 mg/dl (0.60-1.20); POTASSIUM 4.4 mmol/L (3.5-5.1)
--- NOTE | 2016-10-27 16:10 | DIAGNOSTIC IMAGING REPORT ---
CERVICAL SPINE CT CT DOSE: HISTORY: Neck pain. Fell, struck frontal/right parietal region. Anticoagulated. LOC TECHNIQUE: Multiaxial CT images of the cervical spine were performed and reformatted in the sagittal and coronal plane without the use of contrast. COMPARISON: None. FINDINGS: No fractures. No subluxation. Prevertebral soft tissues and the C1-C2 interval are intact. No pneumothorax. Moderate disc space narrowing at C5-C6 and C6-C7 with endplate osteophytes. There is slight reversal of the normal lordotic curvature. IMPRESSION: No fractures within the cervical spine. Electronically signed by: Moses Pindea M.D. 10/27/2016 4:08 PM Dictated Date/Time: 10/27/2016 4:03 PM
[2016-10-27 16:20] LABS: BETA-HYDROXYBUTYRATE 1.94 mg/dL (0.2-2.81)
--- NOTE | 2016-10-27 17:22 | DIAGNOSTIC IMAGING REPORT ---
LEFT FOREARM 2 VIEWS ROUTINE CLINICAL HISTORY: left upper extremity pain s/p fall pain COMPARISON: None. DISCUSSION: Transverse fracture distal radius and most likely ulna. Mild soft tissue edema. Mild dorsal displacement of the fracture moderate soft tissue edema IMPRESSION: Transverse fractures distal radius and most likely ulna with mild dorsal displacement Electronically signed by: Adria Houston M.D. 10/27/2016 5:20 PM Dictated Date/Time: 10/27/2016 5:18 PM
--- NOTE | 2016-10-27 17:22 | DIAGNOSTIC IMAGING REPORT ---
CHEST ONE VIEW PORTABLE CLINICAL HISTORY: Dyspnea, fall trauma COMPARISON STUDY: No previous studies for comparison. FINDINGS: The bones soft tissues and hemidiaphragms are normal. The cardiomediastinal silhouette is normal. The lungs are clear. The pulmonary vasculature is normal. IMPRESSION: Negative chest. Electronically signed by: Adria Houston M.D. 10/27/2016 5:21 PM Dictated Date/Time: 10/27/2016 5:21 PM
--- NOTE | 2016-10-27 17:24 | DIAGNOSTIC IMAGING REPORT ---
LEFT HUMERUS MIN 2 VIEWS ROUTINE CLINICAL HISTORY: left upper extremity pain s/p fall COMPARISON: None. DISCUSSION: The bones and joint spaces appear intact. There is no evidence of fracture, dislocation or bony disease. There is no evidence for soft tissue swelling. IMPRESSION: Negative study. Electronically signed by: Adria Houston M.D. 10/27/2016 5:23 PM Dictated Date/Time: 10/27/2016 5:23 PM
--- NOTE | 2016-10-27 17:24 | DIAGNOSTIC IMAGING REPORT ---
LEFT HAND MIN 3 VIEWS ROUTINE CLINICAL HISTORY: left upper extremity pain s/p fall trauma COMPARISON: None. DISCUSSION: Transverse fracture distal radius. Fracture distal ulna. Mild dorsal displacement. Generalized soft tissue edema. IMPRESSION: Dorsally displaced fractures of the distal radius and ulna Electronically signed by: Adria Houston M.D. 10/27/2016 5:22 PM Dictated Date/Time: 10/27/2016 5:22 PM
--- NOTE | 2016-10-27 17:25 | DIAGNOSTIC IMAGING REPORT ---
LEFT KNEE 3 VIEWS CLINICAL HISTORY: Left knee pain s/p fall COMPARISON: None. DISCUSSION: The bones and joint spaces appear intact. There is no evidence of fracture, dislocation or bony disease. There is no evidence for soft tissue swelling. IMPRESSION: Negative study. Electronically signed by: Adria Houston M.D. 10/27/2016 5:23 PM Dictated Date/Time: 10/27/2016 5:23 PM
[2016-10-27] MEDS ORDERED: XYLOCAINE 1%/SOD BICARB 20 ML VIAL INFIL ONE (17:50)
[2016-10-27] MEDS ORDERED: ACETAMINOPHEN 325 MG TAB PO PRN (19:15)
[2016-10-27] MEDS ORDERED: PHYTONADIONE 5 MG TAB PO STA (19:24)
[2016-10-27] MEDS ORDERED: SEVERE STRESS LEVEL ONE (19:30)
[2016-10-27] MEDS ORDERED: INSULIN IV INFUSION PROTOCOL STA (19:30)
[2016-10-27] MEDS ORDERED: MoRPHine SULFATE 4 MG/ML 1 ML CARP\\VIAL IV PRN (19:30)
[2016-10-27] MEDS ORDERED: HHS GOAL RANGE 250-350 mg/dl ONE (19:30)
[2016-10-27] MEDS ORDERED: GABA-112 PO (19:36)
[2016-10-27] MEDS ORDERED: OXYC1TAB3 PO (19:36)
[2016-10-27] MEDS ORDERED: GLUCOSE 40% GEL 15 GM TUBE PO PRN (20:00)
[2016-10-27] MEDS ORDERED: DEXTROSE 50% 50 ML SYR IV PRN (20:00)
[2016-10-27] MEDS ORDERED: GLUCAGON FOR INJ 1 MG VIAL SQ PRN (20:00)
[2016-10-27] MEDS ORDERED: GLUCOSE 10 TABS/TUBE PO PRN (20:00)
[2016-10-27 20:20] VITALS: BP 196/82; PULSE 82; TEMP 36.6; O2SAT 94
[2016-10-27 20:40] VITALS: BP 137/102; PULSE 73; TEMP 36.5; O2SAT 96; BMI 33.3
[2016-10-27] MEDS ORDERED: INSULIN GLARGINE SOLOSTAR 100 UNITS/ML 3 ML PEN SC SCH ×2 (21:00→22:15)
[2016-10-27] MEDS ORDERED: INSULIN ASPART 100 UNITS/ML 3 ML PEN SC SCH (21:00)
[2016-10-27] MEDS ORDERED: PHARMACY GLYCEMIC MGMT CONSULT PRN (21:19)
--- NOTE | 2016-10-27 21:34 | History and Physical ---
History & Physical Date & Time of Service: Oct 27, 2016 at 21:04 Chief Complaint: Fall Primary Care Physician: Adria Hilliard M.D. History of Present Illness 61 year old female who presents to the ER after a fall. Patient reports she was walking into her house when everything went black and she fell to the ground and hit her head. She reports she loss consciousness for a few seconds after falling and hitting her head. She reports she fell onto her left arm and had left lower arm pain after the fall. Patient reports she has been falling frequently over the past month. She reports some of the time she is passing out. She also notes increasing shortness of breath on exertion. She denies chest pain. She was seen by her PCP for these frequent falls and was told she may have autonomic neuropathy from poorly controlled diabetes. Patient denies abdominal pain, nausea, vomiting, or diarrhea. No fever or chills. She denies urinary symptoms. In the ER, patient is found to have transverse fractures of left distal radius and most likely ulna with mild dorsal displacement. EKG is unchanged from prior and initial trop is negative. BP was elevated at 205/115. Past Medical/Surgical History Medical Problems: (1) Adhesion of abdominal wall Status: Resolved (2) Adult hypothyroidism Status: Chronic (3) Anxiety Status: Chronic (4) Calculus of kidney and ureter Status: Resolved (5) Carpal tunnel syndrome on both sides Status: Chronic (6) Deep venous thrombosis Permanent Comment: left upper extremity Status: Resolved (7) Depression Status: Chronic (8) Diabetic gastroparesis Status: Chronic (9) Diabetic neuropathy Status: Chronic (10) Diverticulosis of colon without diverticulitis Status: Chronic (11) DJD (degenerative joint disease) Permanent Comment: of spine, left hip, and b/l knees Status: Chronic (12) DM type 2 (diabetes mellitus, type 2) Status: Chronic (13) Dyslipidemia Status: Chronic (14) Essential hypertension Status: Chronic (15) HTN (hypertension) Status: Chronic (16) Obesity Status: Chronic (17) Pulmonary embolism Permanent Comment: B/L around 2007, on coumadin Status: Resolved (18) Transient ischemic attack Status: Chronic (19) Vertebral fracture Status: Chronic (20) Vertigo Status: Chronic (21) Vitamin D deficiency Status: Chronic Surgical Problems: (1) Bilateral tubal ligation Status: Chronic (2) H/O knee surgery Status: Chronic (3) Hysterectomy Status: Chronic (4) Oophorectomy Status: Chronic (5) S/p breast lesion excision Status: Chronic (6) S/P dilation and curettage Status: Chronic (7) S/P laparoscopic cholecystectomy Status: Chronic (8) S/P left knee arthroscopy Status: Chronic (9) S/p lysis of adhesions Permanent Comment: 1992, 2005, 2009 Status: Chronic (10) S/p small bowel repair Status: Chronic Family History Cancer (lung and liver) FATHER FH: Alzheimers disease MOTHER Social History Smoking Status: Never Smoker Alcohol Use: none Marital Status: Housing status: lives with family Immunizations History of Influenza Vaccine: Yes Influenza Vaccine Date: May 02, 2016 History of Tetanus Vaccine?: Yes Tetanus Immunization Date: December 27, 2015 History of Pneumococcal: Yes Pneumococcal Date: December 14, 2005 History of Hepatitis B Vaccine: Yes Multi-Drug Resistant Organisms History of MDRO: No Allergies Coded Allergies: Adhesives (Verified Allergy, Unknown, RASH, 09/28/16) Iodinated Diagnostic Agents (Verified Allergy, Unknown, burning and aching in veins, 09/28/16) Latex1 -Allergic Contact Dermititis (Verified Allergy, Unknown, 09/28/16) Penicillins (Verified Allergy, Unknown, n/v, rash, 09/28/16) Ketorolac (Verified Adverse Reaction, Mild, ITCHING., 09/28/16) Tromethamine (Verified Adverse Reaction, Mild, ITCHING., 09/28/16) Aspirin (Verified Adverse Reaction, Unknown, currently with gastric ulcer , per pt, 09/28/16) Home Medications Scheduled Bupropion HCl (Bupropion HCl Sr), 100 MG PO TID Cholecalciferol (Vitamin D3), 1,000 INTER.UNIT PO QAM Ferrous Sulfate (Ferrous Sulfate), 325 MG PO QAM Gabapentin (Neurontin), 600 MG PO TID Insulin Aspart (Novolog), 16 UNITS SC AC Insulin Glargine (Lantus), 42 UNITS SQ BID Levothyroxine Sodium (Synthroid), 100 MCG PO DAILY Lisinopril (Zestril), 20 MG PO DAILY Metformin Hcl (Glucophage), 500 MG PO BID Metoclopramide (Reglan), 10 MG PO TIDM Metoprolol Tartrate (Lopressor) (Lopressor), 12.5 MG PO BID Rosuvastatin Calcium (Crestor), 20 MG PO DAILY Sertraline Hcl (Zoloft), 200 MG PO QAM Tamsulosin Hcl (Flomax), 0.4 MG PO DAILY Warfarin Sodium (Coumadin), 2.5 MG PO 5XWK Warfarin Sodium (Coumadin), 5 MG PO 2XWK Scheduled PRN Oxycodone Ir (Roxicodone Ir), 1-2 TAB PO Q6H PRN for Severe Pain Saline ([place] Nasal [place]), 1 SPRAY NEENA for Nasal Congestion Review of Systems 10 point review of systems was completed with the pertinent positives and negatives noted per the HPI Physical Exam Vital Signs Date Time Temp Pulse Resp B/P Pulse Ox O2 Delivery O2 Flow Rate FiO2 10/27/16 20:20 36.6 82 18 196/82 94 Room Air 10/27/16 20:04 70 20 170/95 98 10/27/16 19:10 76 20 176/95 98 Room Air 10/27/16 17:48 78 20 185/98 92 Room Air 10/27/16 15:49 Room Air 10/27/16 15:43 82 20 185/98 96 Room Air 10/27/16 14:29 36.6 81 20 209/115 94 Room Air General Appearance: no apparent distress Head: + evidence of trama (large hematoma and ecchymosis over right frontal scalp) Eyes: normal inspection ENT: hearing grossly normal Neck: supple, no JVD Respiratory/Chest: lungs clear, normal breath sounds, no respiratory distress Cardiovascular: regular rate, rhythm, no edema, normal peripheral pulses Abdomen/GI: normal bowel sounds, non tender, soft Extremities/Musculoskelatal: + pertinent finding (LUE in splint, CSM checks intact to LUE) Neurologic/Psych: no motor/sensory deficits, alert, normal mood/affect, oriented x 3 Skin: normal color, warm/dry Diagnostics Laboratory Results Results Past 24 Hours Test 10/27/16 15:38 10/27/16 15:40 10/27/16 19:38 10/27/16 21:00 Range/Units White Blood Count 8.58 4.8-10.8 K/uL Red Blood Count 4.57 4.2-5.4 M/uL Hemoglobin 14.1 12.0-16.0 g/dL Hematocrit 40.3 37-47 % Mean Corpuscular Volume 88.2 80-100 fL Mean Corpuscular Hemoglobin 30.9 25-34 pg Mean Corpuscular Hemoglobin Concent 35.0 32-36 g/dl Platelet Count 190 130-400 K/uL Mean Platelet Volume 9.5 7.4-10.4 fL Neutrophils (%) (Auto) 78.6 % Lymphocytes (%) (Auto) 14.3 % Monocytes (%) (Auto) 5.6 % Eosinophils (%) (Auto) 0.9 % Basophils (%) (Auto) 0.3 % Neutrophils # (Auto) 6.73 1.4-6.5 K/uL Lymphocytes # (Auto) 1.23 1.2-3.4 K/uL Monocytes # (Auto) 0.48 0.11-0.59 K/uL Eosinophils # (Auto) 0.08 0-0.5 K/uL Basophils # (Auto) 0.03 0-0.2 K/uL RDW Standard Deviation 42.2 36.4-46.3 fL RDW Coefficient of Variation 13.2 11.5-14.5 % Immature Granulocyte % (Auto) 0.3 % Immature Granulocyte # (Auto) 0.03 0.00-0.02 K/uL Prothrombin Time 27.1 9.0-12.0 SECONDS Prothromb Time International Ratio 2.4 0.9-1.1 Activated Partial Thromboplast Time 33.8 21.0-31.0 SECONDS Partial Thromboplastin Ratio 1.3 Sodium Level 138 136-145 mmol/L Potassium Level 4.4 3.5-5.1 mmol/L Chloride Level 104 98-107 mmol/L Carbon Dioxide Level 24 21-32 mmol/L Anion Gap 10.0 3-11 mmol/L Blood Urea Nitrogen 16 7-18 mg/dl Creatinine 0.76 0.60-1.20 mg/dl Est Creatinine Clear Calc Drug Dose 81.7 ml/min Estimated GFR () 98.8 Estimated GFR (Non- 85.3 BUN/Creatinine Ratio 20.4 10-20 Random Glucose 336 70-99 mg/dl Calcium Level 9.9 8.5-10.1 mg/dl Beta-Hydroxybutyric Acid 1.94 0.2-2.81 mg/dL Bedside Troponin I 0.000 0-0.045 ng/ml Bedside Glucose 266 70-90 mg/dl Diagnostic Radiology LEFT HUMERUS IMPRESSION: Negative study. Head CT Impression: No acute intracranial abnormality. Right extracranial prefrontal soft tissue edema LEFT HAND XR IMPRESSION: Dorsally displaced fractures of the distal radius and ulna LEFT FOREARM XR IMPRESSION: Transverse fractures distal radius and most likely ulna with mild dorsal displacement CXR IMPRESSION: Negative chest. C SPINE CT IMPRESSION: No fractures within the cervical spine. LEFT KNEE XR IMPRESSION: Negative study. Impression Assessment and Plan LEFT RADIUS AND ULNAR FRACTURES RECURRENT SYNCOPE - admit to tele - patient presenting with possible syncopal event leading to fall and found to have left radius and ulnar fractures that will require surgical repair - patient reports multiple syncopal events over the past month and worsening shortness of breath on exertion - patient will not be cleared for surgery at this time until further work is completed for syncope and exertional shortness of breath - discussed with Dr. Alarcon (anesthesia) and Dr. Restrepo (ortho) - EKG does not show any acute changes, initial trop negative - will continue to cycle cardiac enzymes - dobutamine stress echo 10/2015 - negative for inducible ischemia; no history of CAD - will check resting echo and ask for cardio to see for pre op evaluation SCALP HEMATOMA - CT head negative - hold Coumadin HTN, UNCONTROLLED - possibly situational due to pain - will continue home doses of metoprolol and lisinopril for now and reassess once pain controlled - PRN hydralazine DM - poor controlled - hgb a1c 05/15 - hold oral agents, continue SSI and Lantus while hospitalized - glycemic consult HX PE - on Coumadin, INR 2.4 - holding as above HYPOTHYROIDISM - continue levothyroxine TIA - does not take any antiplatelets - continue ASA DVT PROPHYLAXIS - SCDs when INR < 2.0 DISPO - In my clinical judgment this beneficiary meets acute admission criteria, established by [facility], that includes being hospitalized through two midnights. I have seen, examined and discussed this patient with Miladis Francis and I agree with the above note. Patient presents with left wrist pain after fall. H/o multiple falls over the past month, as well as RODRIGUEZ. These are both new onset x1 month. Vitals reviewed. PE: General- awake; alert; NAD Eyes- EOMI; no scleral icterus Neck- no stridor; trachea midline Lungs- CTA bilaterally; no wheezes/crackles Heart- RRR; no m/r/g Abdomen- soft; NTND; nBS Back- no gross abnormalities Extremities- no c/c/e; no deformity Neuro- no focal deficits Skin- no appreciable rash; +bruising Left wrist fracture: Ortho consulted. Splinted in ED. Hold on surgical repair at this time given uncontrolled comorbidities and unexplained syncope and RODRIGUEZ. Syncopal episodes/RODRIGUEZ/pre-op evaluation: Monitor on telemetry. TTE. Trend cardiac enzymes. Cardiology consult. CT head negative for acute process. HTN: Poorly controlled. Continue home medications. Hydralazine PRN. Type 2 DM: Poorly controlled. Glycemic pharmacy consulted. Continue insulin. H/o PE: Hold warfarin in light of scalp hematoma and potential surgery. Agree with remainder of plan as outlined above. VTE Prophylaxis VTE Risk Assessment Done? Y/N: Yes Risk Level: Moderate
[2016-10-27] MEDS: METOPROLOL TARTRATE 25 MG TAB PO SCH (21:52)
[2016-10-27] MEDS: BuPROPion SR 100 MG TABCR PO SCH (21:53)
[2016-10-27] MEDS: GABAPENTIN 600 MG TAB PO SCH (21:53)
[2016-10-27] MEDS: INSULIN ASPART 100 UNITS/ML 3 ML PEN SC SCH (22:15)
[2016-10-27] MEDS: TRAMADOL HCL 50 MG TAB PO PRN (23:13)
[2016-10-27 23:59] VITALS: BP 170/90; PULSE 80; TEMP 36.6; O2SAT 96
[2016-10-28] VITALS (9 sets, daily range): BP systolic 118–195; BP diastolic 65–97; PULSE 75–111; TEMP 36.5–36.9; O2SAT 94–96
[2016-10-28] MEDS: INSULIN ASPART 100 UNITS/ML 3 ML PEN SC SCH ×6 (00:06→21:26)
[2016-10-28] MEDS: HYDROmorphone INJ 0.5 MG/0.5 ML SYR IV PRN ×6 (01:11→19:54)
--- NOTE | 2016-10-28 01:43 | ORTHOPEDIC CONSULTATION ---
DATE OF CONSULTATION: 10/27/2016 CHIEF COMPLAINT: Left distal radius fracture. HISTORY OF PRESENT ILLNESS: Viky is a 61-year-old female with multiple medical issues who was at home alone when she fell in her doorway. She sustained contusions to her head and scrapes on her knee and she had deformity of her left wrist. She came to the Emergency Room where radiographs demonstrated a displaced left distal radius fracture. Scanning of her head and neck were essentially negative. She is on Coumadin and she is hyperglycemic and given the fact that she essentially lives mostly alone she is being admitted to the medical service. Orthopedics was consulted to evaluate and treat her left distal radius. She is a community ambulator with a cane. MEDICATIONS: Include 1. Wellbutrin 100 mg daily. 2. Vitamin D3 1000 units daily. 3. Iron 325 mg daily. 4. Neurontin 400 mg 3 times a day. 5. NovoLog 16 units subQ before meals. 6. Lantus 42 units subQ twice a day. 7. Synthroid 100 mcg daily. 8. Zestril 10 mg daily. 9. Glucophage 500 mg twice a day. 10. Reglan 10 mg 3 times a day. 11. Lopressor 25 mg twice a day. 12. Percocet as needed for pain. 13. Crestor 20 mg daily. 14. [place] nasal spray as needed. 15. Zoloft 200 mg daily. 16. Flomax 0.4 mg daily. 17. Coumadin 2.5 mg 5 times a week, and 5 mg twice a week. PAST MEDICAL HISTORY: Significant for history of DVTs and PEs for which she is on Coumadin, insulin-dependent diabetes, diabetic neuropathy, TIA, depression, hyperlipidemia, essential hypertension, vertigo, anxiety, DJD, vitamin D deficiency, obesity, hypothyroidism. PAST SURGICAL HISTORY: Significant for oophorectomy, hysterectomy, bilateral tubal ligations, D\T\C, laparoscopic cholecystectomy, breast lesion excision, small bowel repair, lysis of adhesions, left total knee arthroplasty, left cubital tunnel release, left carpal tunnel release. ALLERGIES: ADHESIVES, ASPIRIN, KETOROLAC, LASIX, PENICILLIN AND TROMETHAMINE. FAMILY HISTORY: Noncontributory. SOCIAL HISTORY: She is a community ambulator with the use of a cane. She does live with her and her son, but they are gone most of the time and she spents most of the time at home alone caring for herself. REVIEW OF SYSTEMS: She complains of left wrist pain and head pain. All other pertinent review of systems is negative. PHYSICAL EXAMINATION: On examination of her left wrist shows a gross deformity of her left distal radius. She does have some mild numbness in the median nerve distribution of her hand. She is able to move her fingers and she seems to have full function of her hand within the pain limits. There are no abrasions, lesions, lacerations of the skin. X-rays are reviewed, do show a left displaced distal radius fracture. IMPRESSION: Left distal radius fracture. PLAN: She is being admitted to medical service with her multiple medical comorbidities. I will give her vitamin K to help bring down her INR. Currently, I have her scheduled tomorrow morning for an ORIF of her left distal radius. Given her home situation, I feel this is the best treatment for her, so she is not in a long-arm splint or cast for 3-4 weeks. We talked about this extensively and she elected to proceed with surgical fixation. She will be n.p.o. past midnight tonight. BRAEDEN
[2016-10-28 03:36] LABS: HEMATOCRIT 38.1 % (37-47); MEAN CORPUSCULAR HEMOGLOBIN 30.6 pg (25-34); MEAN CORPUSCULAR HGB CONC 35.2 g/dl (32-36); MEAN PLATELET VOLUME 9.3 fL (7.4-10.4); PLATELET COUNT 221 K/uL (130-400); RED BLOOD COUNT 4.38 M/uL (4.2-5.4); WHITE BLOOD COUNT 11.69 K/uL (4.8-10.8)
[2016-10-28 03:51] LABS: INR 2.4 (0.9-1.1); PROTHROMBIN TIME (PATIENT) 26.8 SECONDS (9.0-12.0)
[2016-10-28 03:56] LABS: BLOOD UREA NITROGEN 15 mg/dl (7-18); BUN/CREATININE RATIO 22.1 (10-20); CALCIUM 8.9 mg/dl (8.5-10.1); CARBON DIOXIDE 31 mmol/L (21-32); CHLORIDE 101 mmol/L (98-107); CREATININE 0.69 mg/dl (0.60-1.20); GLUCOSE 167 mg/dl (70-99); SODIUM 138 mmol/L (136-145)
--- NOTE | 2016-10-28 04:28 | Pharmacy Progress Note ---
Glycemic Control Intl Consult Date of Service Oct 28, 2016. Scope Glycemic Pharmacist consulted by Miladis Francis on 10/27/16 for glycemic control and to write orders per [facility] inpatient glycemic control protocol Objective Weight (Kilograms): 85.300 Accuchecks BSG (last 24hrs): Test 10/27/16 15:38 10/27/16 19:38 10/27/16 23:56 10/28/16 03:00 Random Glucose 336 mg/dl (70-99) 167 mg/dl (70-99) Bedside Glucose 266 mg/dl (70-90) 240 mg/dl (70-90) Laboratory Data (last 24hrs) Test 10/27/16 15:38 10/28/16 03:00 Anion Gap 10.0 mmol/L 6.0 mmol/L BUN/Creatinine Ratio 20.4 22.1 Blood Urea Nitrogen 16 mg/dl 15 mg/dl Creatinine 0.76 mg/dl 0.69 mg/dl Potassium Level 4.4 mmol/L 4.0 mmol/L Sodium Level 138 mmol/L 138 mmol/L White Blood Count 8.58 K/uL 11.69 K/uL Red Blood Count 4.57 M/uL Hemoglobin 14.1 g/dL Hematocrit 40.3 % Mean Corpuscular Volume 88.2 fL Mean Corpuscular Hemoglobin 30.9 pg Mean Corpuscular Hemoglobin Concent 35.0 g/dl Platelet Count 190 K/uL Mean Platelet Volume 9.5 fL Neutrophils (%) (Auto) 78.6 % Lymphocytes (%) (Auto) 14.3 % Monocytes (%) (Auto) 5.6 % Eosinophils (%) (Auto) 0.9 % Basophils (%) (Auto) 0.3 % Neutrophils # (Auto) 6.73 K/uL Lymphocytes # (Auto) 1.23 K/uL Monocytes # (Auto) 0.48 K/uL Eosinophils # (Auto) 0.08 K/uL Basophils # (Auto) 0.03 K/uL Recent Pertinent Medications Outpatient Anti-diabetic Regimen: * NovoLog 16 units SQ AC * Lantus 42 units SQ BID * Metformin 500mg PO BID * A1c outdated at time of consult The patient is currently receiving: * Basal insulin: Lantus 20 units every 12 hours * Correctional Insulin: NovoLog Correction per scale AC/HS Goal Range: Low 120 mg/dL - High 160 mg/dL Correction Factor: 30 mg/dL/unit * Prandial insulin: Per carb ratio of 1 unit per 9 grams CHO consumed * Oral Agents: held on admission Risk Factors for Insulin Resistance: * Recent Surgery: Possible OR 10/28? * Diet: AHA/T2DM Assessment & Plan ASSESSMENT: * ADA & AACE recommend a goal blood sugar range 140-180 mg/dl for the majority of critically ill & non-critically ill patients. However, more stringent targets may be selected in individual cases. 120-160mg/dL used for possible orthopedic intervention (to decrease risk of perioperative infection). 10/27/16 * 61 y/o type 2 diabetic known to the glycemic consult service from prior admissions. The most recent was in May 2016. * During this past admission, the patient require >100 units of insulin per day. * BSG on admission elevated, though it was a random value. * Possible OR tomorrow - however diet ordered * Will increase Lantus tonight and if OR tomorrow, may need to decrease AM Lantus dose * NovoLog parameters will be based on historical admissions * more aggressive insulin regimen for possible OR to aide in healing/decrease risk of infection * A1c outdated * order and add to discharge instructions PLAN FOR INPATIENT GLYCEMIC CONTROL: * Lantus SQ BID * 20 units if BSG is below 120mg/dL * 40 units if BSG is 120mg/dL or above * NovoLog SQ AC and HS * add overnight Accu-checks since patient is hyperglycemic * Correction factor: 20mg/dL/unit * Carb ratio: 1 unit per 7g of CHO consumed * Goal: 120-160mg/dL * Metformin * continue to hold at this time for possible OR * A1c - ordered * add to discharge instructions * Please note that the plan above was derived based on current level of insulin resistance and hospital stress. These recommendations are appropriate for inpatient admission only. Plan of care upon discharge will need to be reassessed to avoid potential outpatient hypo/hyperglycemia. Thank you.
[2016-10-28] MEDS: ONDANSETRON INJ 2 MG/ML 2 ML VIAL IV PRN ×2 (04:52→10:56)
[2016-10-28] MEDS: LEVOTHYROXINE 100 MCG TAB PO SCH (06:19)
[2016-10-28 06:29] LABS: ESTIMATED AVERAGE GLUCOSE 229 mg/dl; HA1C FLAG Normal (Normal)
[2016-10-28] MEDS: INSULIN GLARGINE SOLOSTAR 100 UNITS/ML 3 ML PEN SC SCH ×2 (07:51→21:27)
[2016-10-28] MEDS: METOCLOPRAMIDE HCL 10 MG TAB PO SCH ×3 (07:53→16:24)
[2016-10-28] MEDS: ROSUVASTATIN CALCIUM 20 MG TAB PO SCH (07:54)
[2016-10-28] MEDS: TAMSULOSIN HCL 0.4 MG CAP PO SCH (07:54)
[2016-10-28] MEDS: FERROUS SULFATE 325 MG TAB PO SCH (07:54)
[2016-10-28] MEDS: GABAPENTIN 600 MG TAB PO SCH ×3 (07:55→21:21)
[2016-10-28] MEDS: BuPROPion SR 100 MG TABCR PO SCH ×3 (07:55→21:20)
[2016-10-28] MEDS: CHOLECALCIFEROL 1000 INTER.UNIT TAB PO SCH (07:55)
[2016-10-28] MEDS: SERTRALINE HCL 100 MG TAB PO SCH (07:56)
[2016-10-28] MEDS: LISINOPRIL 10 MG TAB PO SCH (07:56)
[2016-10-28] MEDS: TRAMADOL HCL 50 MG TAB PO PRN ×2 (08:00→21:44)
[2016-10-28] MEDS: METOPROLOL TARTRATE 25 MG TAB PO SCH ×2 (08:18→21:22)
--- NOTE | 2016-10-28 08:53 | PROGRESS NOTE ---
DATE: 10/28/2016 DATE: 10/28/2016. CHIEF COMPLAINT: Left distal radius fracture. PROGRESS: Viky was seen and examined at bedside today. She is still having a lot of soreness in her left wrist. She has been admitted to the medical service for further medical and cardiac workup. She has no new complaints. PHYSICAL EXAMINATION: She is wearing her left wrist splint and she has ice on her wrist. She still has mild paresthesias in the median nerve distribution of her left hand but they are not severe. She has active motion of her fingers within the limits of pain. IMPRESSION: Left displaced distal radius fracture. PLAN: Right now we are holding off on surgery for further medical and cardiac clearance. If the death clearance coordinator see her today and is able to clear her I will hopefully do an ORIF of her left wrist tomorrow. Will continue to hold her Coumadin for now. I do recommend a dose of vitamin K to decrease her INR. We will keep her n.p.o. past midnight tonight if she is medically cleared.
--- NOTE | 2016-10-28 08:55 | ECHOCARDIOGRAM REPORT ---
*NOTICE TO RECEIVING LIBERTARIAN AGENCY This information is strictly Confidential and protected under [place] law. [place] law prohibits you from making any further disclosure of this information unless further disclosure is expressly permitted by the written consent of the person to whom it pertains or is authorized by law. A general authorization for the release of medical or other information is not sufficient for this purpose. Hospital accepts no responsibility if the information is made available to any other person, INCLUDING THE PATIENT. Interpretation Summary * Name: RENAN VILLAGRAN Study Date: 10/28/2016 07:02 AM BP: 162/82 mmHg * Patient Location: C.2T\S\S239\S\2 HR: 75 * : 1955 (M/d/yyyy) Gender: Female Height: 63 in * Age: 61 yrs Ethnicity: CA Weight: 189 lb * Ordering Physician: Miladis Francis * Referring Physician: Self, Referred * Performed By: Bianca Palma RCS * * Reason For Study: Syncope * BSA: 1.9 m2 * -- Conclusions -- * Aortic valve sclerosis mild, without significant aortic valvular stenosis. * There is moderate concentric left ventricular hypertrophy. * Ejection Fraction = 60-65%. * The left ventricular wall motion is normal. * Grade I diastolic dysfunction, (abnormal relaxation pattern). * The right ventricular systolic function is normal. * The left atrial size is normal. * Right atrial size is normal. * No significant valvular pathology. Procedure Details * A complete two-dimensional transthoracic echocardiogram was performed (2D, M-mode, Doppler and color flow Doppler). * There were technical limitations due to patient'spoor positioning * Patient supine of imagining Left Ventricle * The left ventricle is normal in size. * There is moderate concentric left ventricular hypertrophy. * Ejection Fraction = 60-65%. * Left ventricular systolic function is normal. * The left ventricular wall motion is normal. Right Ventricle * The right ventricle is normal in size and function. * There is normal right ventricular wall thickness. * The right ventricular systolic function is normal. Atria * The left atrial size is normal. * Right atrial size is normal. * The interatrial septum is intact with no evidence for an atrial septal defect. Mitral Valve * The mitral valve is normal in structure and function. * There is no mitral valve stenosis. * There is no mitral regurgitation noted. Tricuspid Valve * The tricuspid valve is normal in structure and function. * There is trace tricuspid regurgitation. Aortic Valve * Aortic valve sclerosis mild, without significant aortic valvular stenosis. * No aortic regurgitation is present. Pulmonic Valve * The pulmonic valve is normal in structure and function. * There is no pulmonic valvular regurgitation. Great Vessels * The aortic root is normal size. * No obvious dissection could be visualized. * The pulmonary artery is normal size. Pericardium/Pleural * There is no pericardial effusion. Left Ventricular Diastolic Function * Grade I diastolic dysfunction, (abnormal relaxation pattern). MMode 2D Measurements and Calculations IVSd 1.0 cm IVSs 1.3 cm LVIDd 4.6 cm LVIDs 3.0 cm LVPWd 0.95 cm LVPWs 1.3 cm IVS/LVPW 1.1 FS 34.8 % EDV(Teich) 99.5 ml ESV(Teich) 35.8 ml EF(Teich) 64.0 % EDV(cubed) 100.1 ml ESV(cubed) 27.8 ml EF(cubed) 72.2 % % IVS thick 31.7 % % LVPW thick 40.5 % LV mass(C)d 157.5 grams LV mass(C)dI 83.4 grams/m\S\2 LV mass(C)s 131.7 grams LV mass(C)sI 69.8 grams/m\S\2 CO(Teich) 4.9 l/min CI(Teich) 2.6 l/min/m\S\2 SV(Teich) 63.6 ml SI(Teich) 33.7 ml/m\S\2 CO(cubed) 5.6 l/min CI(cubed) 2.9 l/min/m\S\2 SV(cubed) 72.3 ml SI(cubed) 38.3 ml/m\S\2 Ao root diam 3.5 cm Ao root area 9.5 cm\S\2 ACS 1.5 cm LA dimension 3.3 cm LA/Ao 0.94 LVAd ap4 31.3 cm\S\2 LVLd ap4 8.9 cm EDV(MOD-sp4) 90.0 ml LVAs ap4 14.3 cm\S\2 LVLs ap4 7.6 cm ESV(MOD-sp4) 23.0 ml EF(MOD-sp4) 74.4 % LVAd ap2 24.3 cm\S\2 LVLd ap2 8.2 cm EDV(MOD-sp2) 60.0 ml LVAs ap2 15.1 cm\S\2 LVLs ap2 7.3 cm ESV(MOD-sp2) 27.0 ml EF(MOD-sp2) 55.0 % CO(MOD-sp4) 5.2 l/min CI(MOD-sp4) 2.7 l/min/m\S\2 SV(MOD-sp4) 67.0 ml SI(MOD-sp4) 35.5 ml/m\S\2 CO(MOD-sp2) 2.5 l/min CI(MOD-sp2) 1.3 l/min/m\S\2 SV(MOD-sp2) 33.0 ml SI(MOD-sp2) 17.5 ml/m\S\2 Doppler Measurements and Calculations MV A max christiano 102.2 cm/sec MV P1/2t max christiano 82.5 cm/sec MV P1/2t 89.1 msec MVA(P1/2t) 2.5 cm\S\2 MV dec slope 271.4 cm/sec\S\2 MV dec time 0.26 sec Ao V2 max 135.2 cm/sec Ao max PG 7.3 mmHg Ao max PG (full) 3.3 mmHg LV V1 max PG 4.1 mmHg LV V1 max 98.5 cm/sec PA V2 max 100.5 cm/sec PA max PG 4.0 mmHg TR max christiano 237.2 cm/sec
[2016-10-28] MEDS ORDERED: PHYTONADIONE 5 MG TAB PO STA (10:21)
[2016-10-28] MEDS: HydrALAZINE HCL 20 MG/ML VIAL IV. PRN (12:05)
--- NOTE | 2016-10-28 12:09 | CARDIOLOGY CONSULTATION ---
DATE OF CONSULTATION: 10/28/2016 DATE OF CONSULTATION: 10/28/2016. REFERRING PHYSICIAN: Real Lombardo. REASON FOR CONSULTATION: Syncope. HISTORY OF PRESENT ILLNESS: This is a 61-year-old diabetic female who has been falling at home and on the day of admission blacked out, hit her head and fractured her left wrist. The patient states that over the past several months she has been having passed out 5 or 6 times and each time she has felt lightheaded and then went to the ground. After several seconds to a minute she recovers and is able to continue on. She has also felt unsteady on her feet. She will get lightheaded. She does have a history of TIAs. No recent history of strokes or cardiac arrhythmias. No significant past cardiac history. After admission, her cardiac markers are negative. Her EKG indicates that she is in a sinus rhythm. She remains in sinus rhythm on telemetry. A CT of the brain without contrast was negative for any acute changes. ALLERGIES: ADHESIVES, ASPIRIN, IODINATED CONTRAST DYE, KETOROLAC, LATEX, PENICILLIN, TROMETHAMINE. PAST MEDICAL HISTORY: The patient has multiple medical problems, most of her issues however are related to diabetes which may not be well controlled. She has diabetic gastroparesis and neuropathy. She has no significant cardiac history but has had previous TIAs. In 2007, she was diagnosed with a pulmonary emboli but is not on long-term anticoagulation. SOCIAL HISTORY: She is a lifelong nonsmoker. She is , lives with her family. FAMILY MEDICAL HISTORY: Noncontributory. REVIEW OF SYSTEMS: A 10-point review of systems is negative except for the history of chief complaint. PHYSICAL EXAMINATION: GENERAL: She is alert and oriented, no acute distress. She has a soft cast on her left wrist. VITAL SIGNS: Blood pressure is 177/82, pulse is regular at 76. She is afebrile. HEAD, EYES, EARS, NOSE, AND THROAT: She is normocephalic. Pupils are equal and reactive to light. Extraocular muscles are intact bilaterally. NECK: The neck veins are flat. Carotids have good upstrokes bilaterally without bruits. Thyroid is nonpalpable. RESPIRATORY: Breath sounds equal bilaterally and clear to auscultation. CARDIOVASCULAR: Heart has a regular rhythm. Normal S1, S2. No cardiac rubs or murmurs. GASTROINTESTINAL: Abdomen is soft, nontender without organomegaly. EXTREMITIES: Free of edema, digit clubbing, or cyanosis. NEUROLOGIC: Grossly intact. SKIN: Warm to touch. LYMPH NODES: Negative to palpation. LABORATORY DATA: Per the history of chief complaint. IMPRESSION: 1. Recurrent falls/syncope. 2. Fractured left wrist and multiple contusions. 3. Diabetes mellitus with complications of gastroparesis and neuropathy. 4. History of transient ischemic attacks. RECOMMENDATIONS: I have ordered orthostatic blood pressure checks on the patient. She could possibly have autonomic dysfunction due to diabetic neuropathy. She had an echocardiogram this admission which is unremarkable. I believe it would be best to have neurology see her for an opinion regarding a possible new stroke or her neuropathy. I will order carotid ultrasounds. 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
--- NOTE | 2016-10-28 12:43 | NEUROLOGY CONSULTATION ---
DATE OF CONSULTATION: 10/28/2016 DATE OF CONSULTATION: 10/28/2016. REQUESTED BY: Dr. See and Dr. Reece. HISTORY OF PRESENT ILLNESS: Viky is 61 years old and is known to Dr. Adria Hilliard and is here after a fall during which she broke her left wrist. The history suggests that she has been having frequent falls over the past several months, worse over the past month when she describes at least 8 events. All these are characterized by the abrupt onset of a diaphoretic sensation, visual loss, sensation that her are moving and then syncope. She has hit her head on several occasions. When brought in a CAT scan was negative for acute bleed and she really does not have any residual but Dr. See was concerned that perhaps we needed an MRI. No seizure like activity has not seen but I do not know how many of these falls have been witnessed. She really has not had any lingual or buccal lacerations or incontinence. She has been told apparently that this is part of her diabetic neuropathy. I apparently saw her several years ago for performed of an EMG and documented the presence of a peripheral neuropathy and she does have diabetic gastroparesis in addition so may well have some autonomic dysfunction, but no actual orthostatic testing has been done other than here in the hospital and this has been negative so far. She has not had a tilt table analysis or any other evaluations. Dr. See is also concerned apparently about the possibility of an autonomic neuropathy and wonders what we may suggest in terms of treatment. In addition to the diabetes and hypothyroidism she has had adhesions of her abdominal wall, anxiety, calculi of the kidney and ureter, has had carpal tunnel syndrome operated on both sides, has had DVT. She has depression and diabetic gastroparesis, diabetic neuropathy, diverticulosis of the colon, degenerative joint disease, dyslipidemia, essential hypertension, obesity, has had pulmonary emboli, has a history of TIAs, vertebral fractures, vertigo of uncertain cause, vitamin D deficiency. PAST SURGICAL HISTORY: Surgically she has had in addition to the carpal tunnels, bilateral tubal ligations, bilateral knee replacements, hysterectomy, oophorectomy, breast lesion excised, D\T\C, laparoscopic cholecystectomy, lysis of adhesions and has had small bowel repair. FAMILY HISTORY: Reveals cancer of the lung and liver in her father, Alzheimer disease in mother. SOCIAL HISTORY: Reveals her to be a never smoker. She does not consume ethanol. She is , lives with her family. IMMUNIZATIONS: Up-to-date. There is no history of multiple drug resistant organisms. ALLERGIES: ADHESIVE TAPE, IODINATED CONTRAST AGENTS, LATEX, PENICILLINS, KETOROLAC, TROMETHAMINE, AND ASPIRIN. MEDICATIONS AT HOME: Include bupropion 100 mg 3 times a day, cholecalciferol, ferrous sulfate, gabapentin 600 mg t.i.d., assumedly for painful diabetic neuropathy, although she denies pain at this point, insulin, levothyroxine, lisinopril, metformin, metoclopramide 10 mg t.i.d., metoprolol, Crestor, sertraline, tamsulosin, and Coumadin. Scheduled as needed medicines include oxycodone and saline. ROS: With the exception of the issues that prompted admission and the past medical history there have been no new issues with the HEENT, cardiovascular, pulmonary, gastrointestinal, genitourinary, hematologic, encdocrine, musculoskeletal, or neurologic systems. PHYSICAL EXAMINATION: VITAL SIGNS: On admission, her blood pressure was 196/82, pulse was 82 and regular, respirations were 16 and she was afebrile. GENERAL: She is well developed, well-nourished, slightly over nourished in fact. HEAD, EYES, EARS, NOSE, AND THROAT: There was a large hematoma over right frontal scalp, otherwise head, eyes, ears, nose, and throat examination was normal. There were no carotid bruits. LUNGS: Clear. HEART: Had a regular rhythm. No murmurs were heard. ABDOMEN: Soft, nontender. EXTREMITIES: There was no peripheral edema. Good peripheral pulses. NEUROLOGIC: Today neurologically she is awake, alert, oriented, has normal extraocular movements, normal visual pritchard. Ocular fundi are poorly seen. Facial motility and strength and sensation are normal. There is no tremor, tics, or choreiform activity. There is specifically no evidence for Parkinsonism despite her long use of Reglan. She is hyporeflexic throughout. I think ankle jerks are actually present, however. Toes are downgoing. No Kelin's signs are seen. Strength is excellent. Sensation reveals a little loss of vibratory sense distally over the feet and perhaps minor reduction in pinprick and temperature over the toes. This woman has frequent falls that certainly sound like hypotensive events and she clearly has a polyneuropathy and gastroparesis that would calderon an automomic neuropathy likely I will get an MRI just be sure we do not have evidence for some subtle subdural fluid collections or significant small vessel disease which may be contributing to some of her gait disturbance over and above the neuropathy. She is going to need a tilt table analysis at some point but for now I think orthostatics need to be done in the hospital on a regular basis. She is hypertensive, so I would not be anxious to start her on a volume stereotyper unless we really have compelling evidence that she does have autonomic insufficiency and significant orthostasis. I am also going to get an EEG just to be sure that there is no potentially epileptogenic patterns, although the story really sounds to be simple syncope, probably mediated through bradycardia or hypotension or perhaps a combination of both. I will check back with her daily. BRAEDEN
[2016-10-28] MEDS ORDERED: CLONIDINE HCL 0.1 MG TAB PO PRN (13:45)
--- NOTE | 2016-10-28 13:48 | Progress Note ---
Internal Med Progress Note Date of Service: Oct 28, 2016. Provider Documentation: SUBJECTIVE: says she is fell 8 times in last one month passed out for few moments yesterday and hit right side of head and left hand says has significant pain in her left hand no change of medications recently says getting sob on minimal exertion OBJECTIVE: Vital Signs-as noted below Exam: General-alert and oriented. Not in distress HEENT- bluish discoloration of right side of head normal hearing Neck-no neck masses Lungs-cta b/l occasional wheezing present no crackles Heart-s1 and s2 heard, regular rate and rhythm no murmurs Abdomen-soft bowel sounds present non tender no distension Extremities-no edema left hand and forearm in dressing Neuro-alert and awake moves extremities Lab data as noted below. ASSESSMENT & PLAN: syncope frequent falls echo unremarkable appreciate cardiology and neurology inputs await mri head, eeg and carotid Doppler will monitor orthostatics monitor in tele Left wrist fracture pain control ortho on board plan for surgery once cardiology clears HTN on lisinopril and Lopressor clonidine prn iv hydralazine prn will monitor DM poorly controlled hba1c 9.6 holding po meds on Lantus and iss will monitor HX PE on Coumadin, INR 2.4 holding Coumadin a dose of vitamin k given in anticipation of surgery HYPOTHYROIDISM on levothyroxine TIA does not take any antiplatelets continue ASA DVT PROPHYLAXIS scds DISPOSITION monitor in tele Vital Signs: Date Time Temp Pulse Resp B/P Pulse Ox O2 Delivery O2 Flow Rate FiO2 10/28/16 12:00 Room Air 10/28/16 11:42 79 195/96 80 184/93 82 173/97 10/28/16 11:32 36.8 81 16 174/92 96 10/28/16 08:00 Room Air 10/28/16 07:32 36.8 76 16 177/82 94 Room Air 10/28/16 04:00 96 Room Air 10/28/16 03:41 36.5 75 18 162/82 94 Room Air 10/28/16 00:01 96 Room Air 10/27/16 23:59 36.6 80 20 170/90 96 Room Air 10/27/16 20:40 36.5 73 18 137/102 96 Room Air 10/27/16 20:20 36.6 82 18 196/82 94 Room Air 10/27/16 20:04 70 20 170/95 98 10/27/16 19:10 76 20 176/95 98 Room Air 10/27/16 17:48 78 20 185/98 92 Room Air 10/27/16 15:49 Room Air 10/27/16 15:43 82 20 185/98 96 Room Air 10/27/16 14:29 36.6 81 20 209/115 94 Room Air Lab Results: Results Past 24 Hours Test 10/27/16 15:38 10/27/16 15:40 10/27/16 19:38 10/27/16 21:30 Range/Units White Blood Count 8.58 4.8-10.8 K/uL Red Blood Count 4.57 4.2-5.4 M/uL Hemoglobin 14.1 12.0-16.0 g/dL Hematocrit 40.3 37-47 % Mean Corpuscular Volume 88.2 80-100 fL Mean Corpuscular Hemoglobin 30.9 25-34 pg Mean Corpuscular Hemoglobin Concent 35.0 32-36 g/dl Platelet Count 190 130-400 K/uL Mean Platelet Volume 9.5 7.4-10.4 fL Neutrophils (%) (Auto) 78.6 % Lymphocytes (%) (Auto) 14.3 % Monocytes (%) (Auto) 5.6 % Eosinophils (%) (Auto) 0.9 % Basophils (%) (Auto) 0.3 % Neutrophils # (Auto) 6.73 1.4-6.5 K/uL Lymphocytes # (Auto) 1.23 1.2-3.4 K/uL Monocytes # (Auto) 0.48 0.11-0.59 K/uL Eosinophils # (Auto) 0.08 0-0.5 K/uL Basophils # (Auto) 0.03 0-0.2 K/uL RDW Standard Deviation 42.2 36.4-46.3 fL RDW Coefficient of Variation 13.2 11.5-14.5 % Immature Granulocyte % (Auto) 0.3 % Immature Granulocyte # (Auto) 0.03 0.00-0.02 K/uL Prothrombin Time 27.1 9.0-12.0 SECONDS Prothromb Time International Ratio 2.4 0.9-1.1 Activated Partial Thromboplast Time 33.8 21.0-31.0 SECONDS Partial Thromboplastin Ratio 1.3 Sodium Level 138 136-145 mmol/L Potassium Level 4.4 3.5-5.1 mmol/L Chloride Level 104 98-107 mmol/L Carbon Dioxide Level 24 21-32 mmol/L Anion Gap 10.0 3-11 mmol/L Blood Urea Nitrogen 16 7-18 mg/dl Creatinine 0.76 0.60-1.20 mg/dl Est Creatinine Clear Calc Drug Dose 81.7 ml/min Estimated GFR () 98.8 Estimated GFR (Non- 85.3 BUN/Creatinine Ratio 20.4 10-20 Random Glucose 336 70-99 mg/dl Calcium Level 9.9 8.5-10.1 mg/dl Beta-Hydroxybutyric Acid 1.94 0.2-2.81 mg/dL Bedside Troponin I 0.000 0-0.045 ng/ml Bedside Glucose 266 70-90 mg/dl Troponin I < 0.015 0-0.045 ng/ml Hepatitis C Antibody Screen NEG NEG Test 10/27/16 23:56 10/28/16 03:00 10/28/16 04:04 10/28/16 06:42 Range/Units Bedside Glucose 240 198 174 70-90 mg/dl White Blood Count 11.69 4.8-10.8 K/uL Red Blood Count 4.38 4.2-5.4 M/uL Hemoglobin 13.4 12.0-16.0 g/dL Hematocrit 38.1 37-47 % Mean Corpuscular Volume 87.0 80-100 fL Mean Corpuscular Hemoglobin 30.6 25-34 pg Mean Corpuscular Hemoglobin Concent 35.2 32-36 g/dl RDW Standard Deviation 41.8 36.4-46.3 fL RDW Coefficient of Variation 13.2 11.5-14.5 % Platelet Count 221 130-400 K/uL Mean Platelet Volume 9.3 7.4-10.4 fL Prothrombin Time 26.8 9.0-12.0 SECONDS Prothromb Time International Ratio 2.4 0.9-1.1 Sodium Level 138 136-145 mmol/L Potassium Level 4.0 3.5-5.1 mmol/L Chloride Level 101 98-107 mmol/L Carbon Dioxide Level 31 21-32 mmol/L Anion Gap 6.0 3-11 mmol/L Blood Urea Nitrogen 15 7-18 mg/dl Creatinine 0.69 0.60-1.20 mg/dl Est Creatinine Clear Calc Drug Dose 89.7 ml/min Estimated GFR () 109.7 Estimated GFR (Non- 94.6 BUN/Creatinine Ratio 22.1 10-20 Random Glucose 167 70-99 mg/dl Estimated Average Glucose 229 mg/dl Hemoglobin A1c 9.6 4.5-5.6 % Calcium Level 8.9 8.5-10.1 mg/dl Troponin I < 0.015 0-0.045 ng/ml Test 10/28/16 10:50 Range/Units Bedside Glucose 209 70-90 mg/dl
[2016-10-28] MEDS ORDERED: LORAZEPAM 2 MG/ML 1 ML VIAL IV ONE (14:30)
[2016-10-28] MEDS ORDERED: LORAZEPAM INJ 0.5 MG in SYRINGE 0.75 ML IV SCH (15:00)
--- NOTE | 2016-10-28 15:12 | Pharmacy Progress Note ---
Glycemic Control: Progress Nt Date of Service Oct 28, 2016. Scope Glycemic Pharmacist consulted for glycemic control and to write orders per [facility] inpatient glycemic control protocol. Objective Accuchecks BSG (last 24hrs): Test 10/27/16 15:38 10/27/16 19:38 10/27/16 23:56 10/28/16 03:00 Random Glucose 336 mg/dl (70-99) 167 mg/dl (70-99) Bedside Glucose 266 mg/dl (70-90) 240 mg/dl (70-90) Test 10/28/16 04:04 10/28/16 06:42 10/28/16 10:50 Bedside Glucose 198 mg/dl (70-90) 174 mg/dl (70-90) 209 mg/dl (70-90) Laboratory Data (last 24hrs) Test 10/27/16 15:38 10/28/16 03:00 Anion Gap 10.0 mmol/L 6.0 mmol/L BUN/Creatinine Ratio 20.4 22.1 Blood Urea Nitrogen 16 mg/dl 15 mg/dl Creatinine 0.76 mg/dl 0.69 mg/dl Potassium Level 4.4 mmol/L 4.0 mmol/L Sodium Level 138 mmol/L 138 mmol/L White Blood Count 8.58 K/uL 11.69 K/uL Red Blood Count 4.57 M/uL Hemoglobin 14.1 g/dL Hematocrit 40.3 % Mean Corpuscular Volume 88.2 fL Mean Corpuscular Hemoglobin 30.9 pg Mean Corpuscular Hemoglobin Concent 35.0 g/dl Platelet Count 190 K/uL Mean Platelet Volume 9.5 fL Neutrophils (%) (Auto) 78.6 % Lymphocytes (%) (Auto) 14.3 % Monocytes (%) (Auto) 5.6 % Eosinophils (%) (Auto) 0.9 % Basophils (%) (Auto) 0.3 % Neutrophils # (Auto) 6.73 K/uL Lymphocytes # (Auto) 1.23 K/uL Monocytes # (Auto) 0.48 K/uL Eosinophils # (Auto) 0.08 K/uL Basophils # (Auto) 0.03 K/uL Hemoglobin A1c 9.6 % HbA1c: Test 10/28/16 03:00 Hemoglobin A1c 9.6 % (4.5-5.6) H Recent Pertinent Medications Outpatient Anti-diabetic Regimen: * NovoLog 16 units SQ AC * Lantus 42 units SQ BID * Metformin 500mg PO BID * A1c outdated at time of consult The patient is currently receiving: * Basal insulin: Lantus 20-40 units every 12 hours dosing based on BSG * Correctional Insulin: NovoLog Correction per scale AC/HS Goal Range: Low 120 mg/dL - High 160 mg/dL Correction Factor: 20 mg/dL/unit * Prandial insulin: Per carb ratio of 1 unit per 7 grams CHO consumed * Oral Agents: held on admission Risk Factors for Insulin Resistance: * Recent Surgery: Possible OR 10/29? * Diet: AHA/T2DM Assessment & Plan ASSESSMENT: * ADA & AACE recommend a goal blood sugar range 140-180 mg/dl for the majority of critically ill & non-critically ill patients. However, more stringent targets may be selected in individual cases. 120-160mg/dL used for possible orthopedic intervention (to decrease risk of perioperative infection). 10/28/16 * 61 y/o type 2 diabetic known to the glycemic consult service from prior admissions. The most recent was in May 2016. * During this past admission, the patient require >100 units of insulin per day. * BSG on admission elevated, though it was a random value. Pt initiated on aggressive insulin regimen c/w dosing per previous admission. * Possible OR this AM per surgery - basal insulin doses will need empirically reduced to prevent hypo * Will increase Lantus tonight and if OR tomorrow, may need to decrease AM Lantus dose PLAN FOR INPATIENT GLYCEMIC CONTROL: * Lantus SQ BID * 20 units if BSG is below 120mg/dL * 40 units if BSG is 120mg/dL or above * FOR 10/29/16: Give 20 units SQ x 1 for NPO/OR * NovoLog SQ AC and HS * Correction factor: 20mg/dL/unit * Carb ratio: 1 unit per 7g of CHO consumed * Goal: 120-160mg/dL * Metformin * continue to hold at this time for possible OR * A1c - 9.6% * added to discharge instructions to be communicated to PCP * Would not try to optimize this A1c any further d/t multiple falls and syncope. * Please note that the plan above was derived based on current level of insulin resistance and hospital stress. These recommendations are appropriate for inpatient admission only. Plan of care upon discharge will need to be reassessed to avoid potential outpatient hypo/hyperglycemia. Thank you.
[2016-10-29] VITALS (13 sets, daily range): BP systolic 102–188; BP diastolic 62–93; PULSE 77–94; TEMP 36.6–36.8; O2SAT 94–97
[2016-10-29] MEDS: INSULIN ASPART 100 UNITS/ML 3 ML PEN SC SCH ×6 (00:12→20:58)
[2016-10-29] MEDS: HYDROmorphone INJ 0.5 MG/0.5 ML SYR IV PRN ×4 (03:50→19:28)
[2016-10-29 03:57] LABS: BASO % 0.3 %; BASO ABS # 0.04 K/uL (0-0.2); COMPLETE YES; EOS % 0.3 %; HEMATOCRIT 37.6 % (37-47); IG% 0.3 %; LYMPH % 12.4 %; LYMPH ABS # 1.84 K/uL (1.2-3.4); MEAN CELL VOLUME 86.2 fL (80-100); MEAN CORPUSCULAR HEMOGLOBIN 30.7 pg (25-34); MEAN CORPUSCULAR HGB CONC 35.6 g/dl (32-36); MEAN PLATELET VOLUME 8.9 fL (7.4-10.4); MONO % 6.6 %; NEUT % 80.1 %; PLATELET COUNT 241 K/uL (130-400); RED BLOOD COUNT 4.36 M/uL (4.2-5.4); WHITE BLOOD COUNT 14.85 K/uL (4.8-10.8)
[2016-10-29 04:05] LABS: INR 1.2 (0.9-1.1); PROTHROMBIN TIME (PATIENT) 13.4 SECONDS (9.0-12.0)
[2016-10-29] MEDS: LEVOTHYROXINE 100 MCG TAB PO SCH (06:00)
[2016-10-29] MEDS ORDERED: LIDOCAINE HCL 2% 2 ML VIAL (20MG/ML) ONE (06:55)
[2016-10-29] MEDS ORDERED: ROCURONIUM BROMID 50MG/5ML SYR ONE (06:55)
[2016-10-29] MEDS ORDERED: ONDANSETRON INJ 2 MG/ML 2 ML VIAL ONE ×2 (06:55→09:12)
[2016-10-29] MEDS ORDERED: FENTANYL CITRATE INJ 50 MCG/1 ML 2 ML VIAL ONE ×2 (06:55→06:56)
[2016-10-29] MEDS ORDERED: PROPOFOL IV EMULSION 10 MG/ML 20 ML VIAL IV ONE (06:55)
--- NOTE | 2016-10-29 06:58 | DIAGNOSTIC IMAGING REPORT ---
BILATERAL CAROTID DOPPLER STUDY HISTORY: Mental status change syncope COMPARISON: None. TECHNIQUE: Real-time, grayscale, and color Doppler sonography of the carotid arteries was performed. Imaging reviewed in the transverse and longitudinal planes. All measurements were calculated based on NASCET criteria. FINDINGS: Antegrade flow is seen in the bilateral vertebral arteries. The brachial pressures are hemodynamically similar. Minimal plaque formation bilaterally The peak systolic velocity within the right ICA is 61. The right systolic ratio is 0.9. The peak systolic velocity within the left ICA is 64. The left systolic ratio is 0.9. IMPRESSION: No hemodynamically significant stenosis seen within the carotid arteries. Minimal plaque formation bilaterally Electronically signed by: Adria Houston M.D. 10/29/2016 6:56 AM Dictated Date/Time: 10/29/2016 6:55 AM
--- NOTE | 2016-10-29 07:02 | History & Physical Bridge Note ---
H&P Re-Evaluation Bridge Note: I have examined the patient, reviewed the History & Physical and in the interval since the performance of the History & Physical I have noted the following changes of clinical significance: No changes noted
[2016-10-29] MEDS: METOCLOPRAMIDE HCL 10 MG TAB PO SCH ×3 (07:30→18:21)
[2016-10-29] MEDS: METOPROLOL TARTRATE 25 MG TAB PO SCH ×2 (07:50→20:53)
[2016-10-29] MEDS: LISINOPRIL 10 MG TAB PO SCH (07:52)
--- NOTE | 2016-10-29 07:59 | Progress Note ---
Internal Med Progress Note Date of Service: Oct 29, 2016. Provider Documentation: Patient vitals ok. Labs fine.echo unremarkable. Seen by cardiology. Should be at acceptable risk to proceed with surgery. Vital Signs: Date Time Temp Pulse Resp B/P Pulse Ox O2 Delivery O2 Flow Rate FiO2 10/29/16 07:20 36.8 86 16 172/82 96 Room Air 10/29/16 04:00 95 Room Air 10/29/16 04:00 36.7 82 18 147/73 95 Room Air 10/29/16 00:09 36.8 92 18 138/62 94 Room Air 94 142/73 90 132/66 10/29/16 00:01 94 Room Air 10/28/16 20:00 94 Room Air 10/28/16 19:15 36.7 78 18 125/70 94 Room Air 111 122/68 90 133/65 10/28/16 16:00 Room Air 10/28/16 15:05 36.9 80 19 118/66 94 Room Air 10/28/16 12:00 Room Air 10/28/16 11:42 79 195/96 80 184/93 82 173/97 10/28/16 11:32 36.8 81 16 174/92 96 10/28/16 08:00 Room Air Lab Results: Results Past 24 Hours Test 10/28/16 10:50 10/28/16 16:02 10/28/16 20:13 10/29/16 00:09 Range/Units Bedside Glucose 209 288 253 193 70-90 mg/dl Test 10/29/16 03:48 10/29/16 03:50 10/29/16 06:49 Range/Units Bedside Glucose 186 175 70-90 mg/dl White Blood Count 14.85 4.8-10.8 K/uL Red Blood Count 4.36 4.2-5.4 M/uL Hemoglobin 13.4 12.0-16.0 g/dL Hematocrit 37.6 37-47 % Mean Corpuscular Volume 86.2 80-100 fL Mean Corpuscular Hemoglobin 30.7 25-34 pg Mean Corpuscular Hemoglobin Concent 35.6 32-36 g/dl Platelet Count 241 130-400 K/uL Mean Platelet Volume 8.9 7.4-10.4 fL Neutrophils (%) (Auto) 80.1 % Lymphocytes (%) (Auto) 12.4 % Monocytes (%) (Auto) 6.6 % Eosinophils (%) (Auto) 0.3 % Basophils (%) (Auto) 0.3 % Neutrophils # (Auto) 11.90 1.4-6.5 K/uL Lymphocytes # (Auto) 1.84 1.2-3.4 K/uL Monocytes # (Auto) 0.98 0.11-0.59 K/uL Eosinophils # (Auto) 0.04 0-0.5 K/uL Basophils # (Auto) 0.04 0-0.2 K/uL RDW Standard Deviation 41.1 36.4-46.3 fL RDW Coefficient of Variation 13.1 11.5-14.5 % Immature Granulocyte % (Auto) 0.3 % Immature Granulocyte # (Auto) 0.05 0.00-0.02 K/uL Prothrombin Time 13.4 9.0-12.0 SECONDS Prothromb Time International Ratio 1.2 0.9-1.1
[2016-10-29] MEDS ORDERED: SCOPOLAMINE 1.5 MG TDSY TD ONE (08:14)
[2016-10-29] MEDS ORDERED: SUCCINYLCHOLINE CHLORIDE 20 MG/ML 10 ML VIAL IV ONE (08:19)
[2016-10-29] MEDS ORDERED: CEFAZOLIN SOD 1 GM VIAL ONE (08:19)
[2016-10-29] MEDS ORDERED: SUCCINYLCHOLINE 100MG/5ML SYR IV ONE (08:19)
[2016-10-29] MEDS ORDERED: BUPIVACAINE/EPINEPHRINE 0.25% 1:200,000 30 ML VIAL ONE (08:59)
[2016-10-29] MEDS ORDERED: FENTANYL CITRATE INJ 50 MCG/1 ML 2 ML VIAL IV PRN (09:00)
[2016-10-29] MEDS ORDERED: INSULIN GLARGINE SOLOSTAR 100 UNITS/ML 3 ML PEN SC SCH (09:00)
[2016-10-29] MEDS ORDERED: EpHEDrine SULFATE INJ 50 MG/ML AMP IV PRN (09:00)
[2016-10-29] MEDS ORDERED: HYDROmorphone INJ 1 MG/ML SYR IV PRN (09:00)
[2016-10-29] MEDS ORDERED: ATROPINE SULFATE 0.1 MG/ML 5ML SYR IV PRN (09:00)
[2016-10-29] MEDS ORDERED: ONDANSETRON INJ 2 MG/ML 2 ML VIAL IV PRN (09:00)
[2016-10-29] MEDS: BuPROPion SR 100 MG TABCR PO SCH ×3 (09:00→20:53)
[2016-10-29] MEDS ORDERED: GLYCOPYRROLATE INJ 0.2 MG/ML VIAL ONE (09:12)
[2016-10-29] MEDS ORDERED: NEOSTIGMINE METHYLSULFATE 5 MG/5 ML SYR ONE (09:12)
--- NOTE | 2016-10-29 09:32 | DIAGNOSTIC IMAGING REPORT ---
LEFT WRIST 2 VIEWS CLINICAL HISTORY: LEFT WRIST FX fracture COMPARISON: 10/27/2016 DISCUSSION: Anatomic alignment status post open reduction internal fixation of the distal radius. Expected soft tissue postoperative change. IMPRESSION: Anatomic alignment status post open reduction internal fixation of the distal radius Electronically signed by: Adria Houston M.D. 10/29/2016 9:31 AM Dictated Date/Time: 10/29/2016 9:30 AM
--- NOTE | 2016-10-29 09:40 | [facility] Post Operative Brief Note ---
Immediate Operative Summary Operative Date Oct 29, 2016. Pre-Operative Diagnosis Left Distal Radius Fracture Post-Operative Diagnosis Left Distal Radius Fracture Procedure(s) Performed Open Reduction Internal Fixation Left Distal Radius Fracture Surgeon Dr. Aly Restrepo Findings as above Complication(s) None Disposition Recovery Room / PACU
--- NOTE | 2016-10-29 10:44 | Anesthesiology Progress Note ---
Anesthesia Post Op Note Date & Time Oct 29, 2016 at 10:44 Vital Signs Pain Intensity: 0 Vital Signs Past 12 Hours Date Time Temp Pulse Resp B/P Pulse Ox O2 Delivery O2 Flow Rate FiO2 10/29/16 10:15 87 16 172/87 95 Nasal Cannula 3 10/29/16 10:05 92 16 167/87 91 Nasal Cannula 3 10/29/16 09:55 90 16 174/86 95 Mask 8 10/29/16 09:46 36.5 92 16 155/81 94 Mask 8 10/29/16 08:00 Room Air 10/29/16 07:20 36.8 86 16 172/82 96 Room Air 10/29/16 04:00 95 Room Air 10/29/16 04:00 36.7 82 18 147/73 95 Room Air 10/29/16 00:09 36.8 92 18 138/62 94 Room Air 94 142/73 90 132/66 10/29/16 00:01 94 Room Air Notes Mental Status: alert / awake / arousable, participated in evaluation Pt Amnestic to Procedure: Yes Nausea / Vomiting: adequately controlled Pain: adequately controlled Airway Patency, RR, SpO2: stable & adequate BP & HR: stable & adequate Hydration State: stable & adequate Anesthetic Complications: no major complications apparent
--- NOTE | 2016-10-29 11:24 | PROGRESS NOTE ---
DATE: 10/29/2016 FOLLOWUP VISIT SUBJECTIVE: The patient is a 61-year-old diabetic female with multiple complications from her diabetes with neuropathy and gastroparesis, who has been following recently and was admitted after a syncopal event with a contusion of the head and fractured left wrist. This morning, she underwent surgery to repair that wrist and is still under the effects of anesthesia. She has no complaints this morning. OBJECTIVE: VITAL SIGNS: Blood pressure is 173/88 and pulse is regular at 87. She is afebrile. Orthostatic blood pressures completed early this morning were negative. GENERAL: She is alert and oriented. HEENT: She is normocephalic. She has a contusion on her forehead. Pupils are equal and reactive to light. Mucous membranes are moist. NECK: The neck veins are flat. Carotids have good upstrokes bilaterally without bruits. Thyroid is nonpalpable. RESPIRATORY: Breath sounds equal bilaterally and clear to auscultation. CARDIOVASCULAR: Heart has a regular rhythm. Normal S1 and S2. No S3 or S4. No cardiac rubs or murmurs. GASTROINTESTINAL: Abdomen is soft and nontender without organomegaly. EXTREMITIES: Free of edema. There is a cast on the left wrist. NEUROLOGIC: Grossly intact. SKIN: Warm to touch. LYMPH NODES: Negative to palpation. IMPRESSION: Diabetes with diabetic neuropathy including gastroparesis and probable autonomic dysfunction. RECOMMENDATIONS: Thus far, there has not been any evidence of cardiac arrhythmias. The carotid ultrasounds were negative. At this point, I gave her and her instructions regarding wearing support stockings and having a walker with a seat and to clear her home of any type of obstructions that she may trip over such as throw rugs, ect. She should recover from her surgery. It is best for her orthostatic blood pressures have been negative, though we will most likely perform a tilt table in the future.
[2016-10-29] MEDS: GABAPENTIN 600 MG TAB PO SCH ×3 (11:33→20:52)
[2016-10-29] MEDS: TAMSULOSIN HCL 0.4 MG CAP PO SCH (11:34)
[2016-10-29] MEDS: CHOLECALCIFEROL 1000 INTER.UNIT TAB PO SCH (11:35)
[2016-10-29] MEDS: SERTRALINE HCL 100 MG TAB PO SCH (11:35)
[2016-10-29] MEDS: FERROUS SULFATE 325 MG TAB PO SCH (11:36)
[2016-10-29] MEDS: ROSUVASTATIN CALCIUM 20 MG TAB PO SCH (11:36)
--- NOTE | 2016-10-29 11:47 | OPERATIVE REPORT ---
DATE OF OPERATION: 10/29/2016 PREOPERATIVE DIAGNOSIS: Displaced left distal radius fracture. POSTOPERATIVE DIAGNOSIS: Same. PROCEDURE: Open reduction and internal fixation of the left distal radius. SURGEON: Dr. Aly Restrepo. ASSISTANTS: None. ANESTHESIA: General. COMPLICATIONS: None. CONDITION: Stable to PACU. IMPLANTS USED: I used a Synthes distal radial locking plate. INDICATIONS: Viky is a 61-year-old female who tripped and fell, sustaining a displaced left distal radius fracture. Given her social status and the fact that she lives alone, I do not think she would tolerate a closed reduction and a casting very well. We elected to proceed with open reduction and internal fixation. DESCRIPTION OF PROCEDURE: On 10/29/2016, she was brought down from the hospital room to the preoperative holding area and the operative extremity was identified and signed. She was given a preoperative antibiotic, taken back to the operating room, laid on the table in supine position and put under general anesthesia. The left wrist was then prepped and draped in sterile fashion. Time-out was done and the patient and operative extremity was properly identified. A longitudinal incision was made directly over the flexor carpi radialis. Dissection was taken down to the quadratus and that was stripped off the bone. The fracture was identified and care was taken not to disrupt the radial artery or the superficial radial nerve. Once I had good exposure, the fracture was reduced. A Synthes 3-hole distal radial locking plate was placed. A single compression screw was placed in a combination hole. The plate was slid into appropriate position and appropriate reduction and positioning of the plate was checked on orthogonal fluoroscopic images. A pair of distal locking screws was then placed. I was happy with the alignment of the screws and they did not penetrate the joint. Two locking screws were then placed proximally. Final x-rays were then taken. The wound was then irrigated and surrounding soft tissues were injected with 20 mL of Marcaine with epinephrine. The skin was then closed with 2-0 Vicryl and a 4-0 nylon suture in a mattress fashion. She was then placed in a volar splint, extubated, transferred to a [facility] and taken to the postanesthesia care unit in stable condition. She tolerated the procedure well. I attest to the content of the Intraoperative Record and any orders documented therein. Any exceptio ns are noted below.
--- NOTE | 2016-10-29 12:07 | Pharmacy Progress Note ---
Glycemic Control: Progress Nt Date of Service Oct 29, 2016. Scope Glycemic Pharmacist consulted for glycemic control and to write orders per [facility] inpatient glycemic control protocol. Objective Accuchecks BSG (last 24hrs): Test 10/28/16 16:02 10/28/16 20:13 10/29/16 00:09 10/29/16 03:48 Bedside Glucose 288 mg/dl (70-90) 253 mg/dl (70-90) 193 mg/dl (70-90) 186 mg/dl (70-90) Test 10/29/16 06:49 10/29/16 11:09 Bedside Glucose 175 mg/dl (70-90) 194 mg/dl (70-90) Laboratory Data (last 24hrs) Test 10/29/16 03:50 White Blood Count 14.85 K/uL Red Blood Count 4.36 M/uL Hemoglobin 13.4 g/dL Hematocrit 37.6 % Mean Corpuscular Volume 86.2 fL Mean Corpuscular Hemoglobin 30.7 pg Mean Corpuscular Hemoglobin Concent 35.6 g/dl Platelet Count 241 K/uL Mean Platelet Volume 8.9 fL Neutrophils (%) (Auto) 80.1 % Lymphocytes (%) (Auto) 12.4 % Monocytes (%) (Auto) 6.6 % Eosinophils (%) (Auto) 0.3 % Basophils (%) (Auto) 0.3 % Neutrophils # (Auto) 11.90 K/uL Lymphocytes # (Auto) 1.84 K/uL Monocytes # (Auto) 0.98 K/uL Eosinophils # (Auto) 0.04 K/uL Basophils # (Auto) 0.04 K/uL HbA1c: Test 10/28/16 03:00 Hemoglobin A1c 9.6 % (4.5-5.6) H Recent Pertinent Medications Outpatient Anti-diabetic Regimen: * NovoLog 16 units SQ AC * Lantus 42 units SQ BID * Metformin 500mg PO BID * A1c outdated at time of consult The patient is currently receiving: * Basal insulin: Lantus 20-40 units every 12 hours dosing based on BSG * Correctional Insulin: NovoLog Correction per scale AC/HS Goal Range: Low 120 mg/dL - High 160 mg/dL Correction Factor: 20 mg/dL/unit * Prandial insulin: Per carb ratio of 1 unit per 7 grams CHO consumed * Oral Agents: held on admission Risk Factors for Insulin Resistance: * Recent Surgery: 10/29/16 * Diet: npo --> AHA/T2DM Assessment & Plan ASSESSMENT: * ADA & AACE recommend a goal blood sugar range 140-180 mg/dl for the majority of critically ill & non-critically ill patients. However, more stringent targets may be selected in individual cases. 120-160mg/dL used for possible orthopedic intervention (to decrease risk of perioperative infection). 10/29/16 * 61 y/o type 2 diabetic known to the glycemic consult service from prior admissions. The most recent was in May 2016. * During this past admission, the patient require >100 units of insulin per day. * A1c = 9.6% 10/28/16. This is down from 11% in 04/2016. * A1c is still slightly above goal range but pt has had multiple falls and syncopal episodes. Less stringent degree of outpatient control warranted. * Pt initiated on aggressive insulin regimen c/w dosing per previous admission. * Pt is currently receiving ~ 94 units of insulin per day. Basal insulin was reduced 10/28 AM in anticipation of NPO/OR. However, surgery moved to 10/29/16. BSGs elevated throughout the day yesterday d/t reduced insulin dose. * OR this AM per surgery - basal insulin doses will need empirically reduced to prevent hypo PLAN FOR INPATIENT GLYCEMIC CONTROL: * Lantus 40 units SQ BID * FOR 10/29/16 AM pre-op: Give Lantus 20 units SQ x 1 for NPO/OR * NovoLog SQ AC and HS * Correction factor: 20mg/dL/unit * Carb ratio: 1 unit per 7g of CHO consumed * Goal: 120-160mg/dL * Metformin * continue to hold at this time post-operatively. May resume at the time of discharge * A1c - 9.6% * added to discharge instructions to be communicated to PCP * Would not try to optimize this A1c any further d/t multiple falls and syncope. Outpatient insulin regimen may even need lessened if it is contributing to syncope/hypoglycemia/falls. * Please note that the plan above was derived based on current level of insulin resistance and hospital stress. These recommendations are appropriate for inpatient admission only. Plan of care upon discharge will need to be reassessed to avoid potential outpatient hypo/hyperglycemia. Thank you.
--- NOTE | 2016-10-29 12:55 | PROGRESS NOTE ---
DATE: 10/29/2016 SUBJECTIVE: Viky had open reduction and internal fixation of her left wrist fracture and may have latoya in her skin. The MRI was not done. The nurse is going to check with the build technician to see if she can have an MRI, but if not, I do not see any bishop in performing one as a CAT scan was normal and the MRI can be done on an outpatient basis once the latoya were removed. I suspect the plate and screws used were titanium and are probably MRI friendly. We will get an EEG tomorrow even though I do not think these events were seizures. Exam continues to reveal evidence for the polyneuropathy, but orthostatic blood pressure determinations have revealed no significant drop of blood pressure into a hypotensive range, although there is a systolic drop when standing. She may end up with a tilt-table test on an outpatient basis in the future. For now, however, we have no reason to either recommend volume expansion or reduction in her blood pressure medications. I see no clinical findings that would implicate a multiple system atrophy syndrome or other degenerative disorder that would be associated with orthostatic hypotension. I will continue to check with her neurologically and will certainly look at EEG tomorrow. BRAEDEN
[2016-10-29] MEDS: HydrALAZINE HCL 20 MG/ML VIAL IV. PRN (13:31)
[2016-10-29] MEDS: TRAMADOL HCL 50 MG TAB PO PRN ×2 (13:31→19:42)
[2016-10-29] MEDS: CEFAZOLIN IV 2,000 MG in DEXTROSE 5% 50ML 50 ML IV SCH (15:45)
--- NOTE | 2016-10-29 17:54 | Progress Note ---
Internal Med Progress Note Date of Service: Oct 29, 2016. Provider Documentation: Patient is s/p left wrist surgery request to up pain meds no chest pain afebrile no nausea stable hemodynamics Exam: General-alert and oriented. Not in distress HEENT- bluish discoloration of right side of head normal hearing Neck-no neck masses Lungs-cta b/l no wheezing present no crackles Heart-s1 and s2 heard, regular rate and rhythm no murmurs Abdomen-soft bowel sounds present non tender no distension Extremities-no edema left hand and forearm in dressing Neuro-alert and awake moves extremities ASSESSMENT & PLAN: syncope frequent falls echo unremarkable appreciate cardiology and neurology inputs await mri head, eeg Carotid Doppler unremarkable no orthostatic hypotension plan for tilt/table test as out patient stable currently Left wrist fracture pain control ortho on board s/p surgery today and tolerated procedure ok. pain control HTN on lisinopril and Lopressor clonidine prn iv hydralazine prn will monitor DM poorly controlled hba1c 9.6 holding po meds on Lantus and iss diabetic teaching will monitor HX PE(around 2007) on Coumadin, INR 2.4 holding Coumadin a dose of vitamin k for surgery inr 1.2 today restart of Coumadin as soon as possible when ok with surgery HYPOTHYROIDISM on levothyroxine TIA does not take any antiplatelets continue ASA DVT PROPHYLAXIS scds Disposition Transfer to medical floor pt/ot to be determined Vital Signs: Date Time Temp Pulse Resp B/P Pulse Ox O2 Delivery O2 Flow Rate FiO2 10/29/16 16:11 36.7 77 18 130/72 97 Room Air 10/29/16 16:01 36.6 87 20 95 10/29/16 15:41 36.6 87 20 160/76 95 Room Air 10/29/16 12:00 86 16 188/71 94 Nasal Cannula 2.0 10/29/16 12:00 Room Air 10/29/16 11:30 86 16 170/93 95 Nasal Cannula 2.0 10/29/16 11:00 36.6 86 16 188/92 94 Nasal Cannula 2.0 10/29/16 10:44 36.6 87 18 173/88 94 Nasal Cannula 2.0 10/29/16 10:15 87 16 172/87 95 Nasal Cannula 3 10/29/16 10:05 92 16 167/87 91 Nasal Cannula 3 10/29/16 09:55 90 16 174/86 95 Mask 8 10/29/16 09:46 36.5 92 16 155/81 94 Mask 8 10/29/16 08:00 Room Air 10/29/16 07:20 36.8 86 16 172/82 96 Room Air 10/29/16 04:00 95 Room Air 10/29/16 04:00 36.7 82 18 147/73 95 Room Air 10/29/16 00:09 36.8 92 18 138/62 94 Room Air 94 142/73 90 132/66 10/29/16 00:01 94 Room Air 10/28/16 20:00 94 Room Air 10/28/16 19:15 36.7 78 18 125/70 94 Room Air 111 122/68 90 133/65 Lab Results: Results Past 24 Hours Test 10/28/16 20:13 10/29/16 00:09 10/29/16 03:48 10/29/16 03:50 Range/Units Bedside Glucose 253 193 186 70-90 mg/dl White Blood Count 14.85 4.8-10.8 K/uL Red Blood Count 4.36 4.2-5.4 M/uL Hemoglobin 13.4 12.0-16.0 g/dL Hematocrit 37.6 37-47 % Mean Corpuscular Volume 86.2 80-100 fL Mean Corpuscular Hemoglobin 30.7 25-34 pg Mean Corpuscular Hemoglobin Concent 35.6 32-36 g/dl Platelet Count 241 130-400 K/uL Mean Platelet Volume 8.9 7.4-10.4 fL Neutrophils (%) (Auto) 80.1 % Lymphocytes (%) (Auto) 12.4 % Monocytes (%) (Auto) 6.6 % Eosinophils (%) (Auto) 0.3 % Basophils (%) (Auto) 0.3 % Neutrophils # (Auto) 11.90 1.4-6.5 K/uL Lymphocytes # (Auto) 1.84 1.2-3.4 K/uL Monocytes # (Auto) 0.98 0.11-0.59 K/uL Eosinophils # (Auto) 0.04 0-0.5 K/uL Basophils # (Auto) 0.04 0-0.2 K/uL RDW Standard Deviation 41.1 36.4-46.3 fL RDW Coefficient of Variation 13.1 11.5-14.5 % Immature Granulocyte % (Auto) 0.3 % Immature Granulocyte # (Auto) 0.05 0.00-0.02 K/uL Prothrombin Time 13.4 9.0-12.0 SECONDS Prothromb Time International Ratio 1.2 0.9-1.1 Test 10/29/16 06:49 10/29/16 08:20 10/29/16 09:53 10/29/16 11:09 Range/Units Bedside Glucose 175 207 174 194 70-90 mg/dl Test 10/29/16 17:20 Range/Units Bedside Glucose 206 70-90 mg/dl
[2016-10-29] MEDS: INSULIN GLARGINE SOLOSTAR 100 UNITS/ML 3 ML PEN SC SCH (20:59)
[2016-10-29] MEDS ORDERED: LORAZEPAM INJ 0.5 MG in SYRINGE 0.75 ML IV ONE (21:00)
[2016-10-29] MEDS ORDERED: GADAVIST IV PRN (22:15)
--- NOTE | 2016-10-29 22:30 | DIAGNOSTIC IMAGING REPORT ---
MRI OF THE BRAIN WITHOUT AND WITH IV CONTRAST CLINICAL HISTORY: syncope with closed head injury mental status change COMPARISON STUDY: 10/16/2014 TECHNIQUE: Utilizing a 1.5 Misa magnet and dedicated coil, multiplanar, multiecho imaging of the brain was performed pre and postcontrast administration. IV administration of 8 mL of Gadavist contrast was uneventful. FINDINGS: Diffusion-weighted images are negative for an acute ischemic event. Cerebellar tonsils are somewhat low-lying. No evidence for hydrocephalus. Several foci of increased signal within the periventricular deep white matter regions consistent with mild age-related chronic small vessel change. Postcontrast images are considered negative for an enhancing lesion. There is extracranial hematoma over the right lateral prefrontal region on an extracranial bases. IMPRESSION: Low-lying cerebellar tonsils. Mild chronic small vessel change of aging. No acute intracranial abnormality. Electronically signed by: Adria Houston M.D. 10/29/2016 10:28 PM Dictated Date/Time: 10/29/2016 10:25 PM
[2016-10-30] VITALS (7 sets, daily range): BP systolic 91–164; BP diastolic 55–92; PULSE 71–106; TEMP 36.8; O2SAT 90–98
[2016-10-30] MEDS: CEFAZOLIN IV 2,000 MG in DEXTROSE 5% 50ML 50 ML IV SCH (00:41)
[2016-10-30] MEDS: HYDROmorphone INJ 0.5 MG/0.5 ML SYR IV PRN ×2 (00:43→08:14)
[2016-10-30] MEDS: LEVOTHYROXINE 100 MCG TAB PO SCH (05:16)
[2016-10-30] MEDS: TRAMADOL HCL 50 MG TAB PO PRN ×3 (05:17→16:09)
[2016-10-30] MEDS: BuPROPion SR 100 MG TABCR PO SCH ×3 (08:07→20:25)
[2016-10-30] MEDS: METOCLOPRAMIDE HCL 10 MG TAB PO SCH ×3 (08:07→17:34)
[2016-10-30] MEDS: TAMSULOSIN HCL 0.4 MG CAP PO SCH (08:08)
[2016-10-30] MEDS: LISINOPRIL 10 MG TAB PO SCH (08:08)
[2016-10-30] MEDS: FERROUS SULFATE 325 MG TAB PO SCH (08:08)
[2016-10-30] MEDS: ROSUVASTATIN CALCIUM 20 MG TAB PO SCH (08:09)
[2016-10-30] MEDS: CHOLECALCIFEROL 1000 INTER.UNIT TAB PO SCH (08:09)
[2016-10-30] MEDS: GABAPENTIN 600 MG TAB PO SCH ×3 (08:09→20:27)
[2016-10-30] MEDS: METOPROLOL TARTRATE 25 MG TAB PO SCH ×2 (08:10→20:24)
[2016-10-30] MEDS: SERTRALINE HCL 100 MG TAB PO SCH (08:10)
[2016-10-30] MEDS: INSULIN ASPART 100 UNITS/ML 3 ML PEN SC SCH ×4 (09:34→21:00)
[2016-10-30] MEDS: INSULIN GLARGINE SOLOSTAR 100 UNITS/ML 3 ML PEN SC SCH ×2 (09:35→21:26)
--- NOTE | 2016-10-30 10:07 | Pharmacy Progress Note ---
Glycemic Control: Progress Nt Date of Service Oct 30, 2016. Scope Glycemic Pharmacist consulted by DALI Ray on 10/27/16 for glycemic control and to write orders per [facility] inpatient glycemic control protocol. Objective Accuchecks BSG (last 24hrs): Test 10/29/16 11:09 10/29/16 17:20 10/29/16 20:41 10/30/16 07:45 Bedside Glucose 194 mg/dl (70-90) 206 mg/dl (70-90) 241 mg/dl (70-90) 182 mg/dl (70-90) HbA1c: Test 10/28/16 03:00 Hemoglobin A1c 9.6 % (4.5-5.6) H Recent Pertinent Medications Outpatient Anti-diabetic Regimen: * NovoLog 16 units SQ AC * Lantus 42 units SQ BID * Metformin 500mg PO BID * A1c outdated at time of consult The patient is currently receiving: * Basal insulin: Lantus 40 units every 12 hours dosing based on BSG * Correctional Insulin: NovoLog Correction per scale AC/HS Goal Range: Low 120 mg/dL - High 160 mg/dL Correction Factor: 20 mg/dL/unit * Prandial insulin: Per carb ratio of 1 unit per 7 grams CHO consumed * Oral Agents: held on admission Risk Factors for Insulin Resistance: * Recent Surgery: 10/29/16 * Diet: T2DM Assessment & Plan ASSESSMENT: * ADA & AACE recommend a goal blood sugar range 140-180 mg/dl for the majority of critically ill & non-critically ill patients. However, more stringent targets may be selected in individual cases. 120-160mg/dL used for possible orthopedic intervention (to decrease risk of perioperative infection). 10/29/16 * 61 y/o type 2 diabetic known to the glycemic consult service from prior admissions. The most recent was in May 2016. * During this past admission, the patient require >100 units of insulin per day. * A1c = 9.6% 10/28/16. This is down from 11% in 04/2016. * A1c is still slightly above goal range but pt has had multiple falls and syncopal episodes. Less stringent degree of outpatient control warranted. * Pt initiated on aggressive insulin regimen c/w dosing per previous admission. * Pt is currently receiving ~ 94 units of insulin per day. Basal insulin was reduced 3 AM in anticipation of NPO/OR. However, surgery moved to 10/29/16. BSGs elevated throughout the day yesterday d/t reduced insulin dose. * OR this AM per surgery - basal insulin doses will need empirically reduced to prevent hypo 10/30/16 * Fasting BSG this AM 182 mg/dL * A reduced dose of Lantus given yesterday due to NPO for surgery * BSGs began to rise through the evening yesterday likely due to reduced basal dose * Continue current Lantus X 24 hours and reassess fasting tomorrow * Lunch BSG elevated >250 mg/dL * Tighten Novolog starting with dinner coverage * Add 0200 check PLAN FOR INPATIENT GLYCEMIC CONTROL: * Continue Lantus 40 units SQ BID * Tighten NovoLog SQ AC and HS * Correction factor: 15 mg/dL/unit * Carb ratio: 1 unit per 6 g of CHO consumed * Goal: 110-150mg/dL * Metformin * continue to hold at this time post-operatively. May resume at the time of discharge * A1c - 9.6% * added to discharge instructions to be communicated to PCP * Would not try to optimize this A1c any further d/t multiple falls and syncope. Outpatient insulin regimen may even need lessened if it is contributing to syncope/hypoglycemia/falls. * Please note that the plan above was derived based on current level of insulin resistance and hospital stress. These recommendations are appropriate for inpatient admission only. Plan of care upon discharge will need to be reassessed to avoid potential outpatient hypo/hyperglycemia. Thank you.
[2016-10-30] MEDS ORDERED: NURSING VERBAL MED ORDER ONE (13:45)
[2016-10-30 14:13] LABS: PROTHROMBIN TIME (PATIENT) 10.7 SECONDS (9.0-12.0)
--- NOTE | 2016-10-30 14:35 | Neurology Progress Notes ---
Neurology Progress Note Date of Service Oct 30, 2016. Rebeca Salmon is a 61 year old female who presents to the ER after a fall. She was walking into her house when everything went black and she fell to the ground and hit her head. She reports she loss consciousness for a few seconds after falling and hitting her head. She was not confused but when she fell she hit her head 2 x and then fell on her arm. She has been falling frequently over the past month. She reports some of the time she is passing out. She also notes increasing shortness of breath on exertion. She saw her PCP for these frequent falls and was told she may have autonomic neuropathy from poorly controlled diabetes. She was found to have a transverse fractures of left distal radius and most likely ulna with mild dorsal displacement and was taken to the OR for fixation. At presentation her BP was elevated at 205/115. She is currently sitting bedside and states her arm is really aching. denies CP , SOB, abdominal pain, some dry mouth, headache due to hematoma on head, denies vision changes. Objective Date Time Temp Pulse Resp B/P Pulse Ox O2 Delivery O2 Flow Rate FiO2 10/30/16 09:20 90 153/87 10/30/16 07:55 Room Air 10/30/16 07:30 36.8 92 18 159/75 93 Room Air 10/30/16 04:01 36.8 96 16 154/69 92 Room Air 10/30/16 00:35 Room Air 10/30/16 00:25 36.8 98 20 152/78 90 Room Air 106 121/66 71 91/55 10/29/16 20:45 115/68 10/29/16 20:45 107/63 10/29/16 20:45 102/63 10/29/16 19:20 36.7 77 18 122/72 97 Room Air 10/29/16 16:11 36.7 77 18 130/72 97 Room Air 10/29/16 16:01 36.6 87 20 95 10/29/16 16:00 Room Air 10/29/16 15:41 36.6 87 20 160/76 95 Room Air Last 24 Hours Test 10/29/16 17:20 10/29/16 20:41 10/30/16 07:45 10/30/16 12:05 Bedside Glucose 206 mg/dl 241 mg/dl 182 mg/dl 269 mg/dl Test 10/30/16 13:50 Prothrombin Time 10.7 SECONDS Prothromb Time International Ratio 1.0 Imaging: MRI brain with and without contrast- FINDINGS: Diffusion-weighted images are negative for an acute ischemic event. Cerebellar tonsils are somewhat low- lying. No evidence for hydrocephalus.Several foci of increased signal within the periventricular deep white matter regions consistent with mild age-related chronic small vessel change. Postcontrast images are considered negative for an enhancing lesion. There is extracranial hematoma over the right lateral prefrontal region on an extracranial bases. TTE= * Aortic valve sclerosis mild, without significant aortic valvular stenosis. * There is moderate concentric left ventricular hypertrophy. * Ejection Fraction = 60-65%. * The left ventricular wall motion is normal. * Grade I diastolic dysfunction, (abnormal relaxation pattern). * The right ventricular systolic function is normal. * The left atrial size is normal. * Right atrial size is normal. * No significant valvular pathology. * NO ASD Exam: Physical Exam: Constitutional:appearance nourished, healthy and obese Ears, Nose, Mouth and Throat: mucous membranes moist, no injection and skin normal, eyes normal Cardiovascular: normal S-1 and S-2 and regular rate and rhythm Respiratory: clear to auscultation (CTA) and no rales, rhonchi or wheeze Musculoskeletal: no peripheral edema and good distal pulses Skin: no stigmata of neurocutaneous disease noted and normal and intact Eyes: extraocular muscles intact (EOMI) and pupils equal, round and reactive to light (PERRL) NEUROLOGIC EXAMINATION: Mental status: Alert and interactive Oriented to full date and location Oriented to person Speech fluent with no evidence of aphasia Cranial Nerves smile eye brow raise symmetric tongue midline Reflexes: Deep tendon reflexes were symmetrical and graded 2/5. Plantar responses were flexor. Sensory: decreased sensation yots down bilaterally LE, vibration intact Coordination: finger to nose without bi pass, + essential tremor bilaterally UE, LE with extension Gait/Stance: Posture normal. sitting bedside chair with left arm casted/splinted Motor: unable to evaluate Strength: biceps triceps hand art glass designer right 5/5, hip flex plantar flex ext bilaterally 5/5 Current Inpatient Medications Medications (Trade) Dose Ordered Sig/Frankie Route Start Time Stop Time Status Last Admin Dose Admin Acetaminophen (Tylenol Tab) 650 mg Q4H PRN PO 10/27/16 19:15 11/26/16 19:14 10/28/16 04:29 650 MG Ondansetron HCl (Zofran Inj) 4 mg Q6H PRN IV 10/27/16 19:15 11/26/16 19:14 10/28/16 10:56 4 MG Hydralazine HCl (HydrALAZINE INJ) 10 mg Q6H PRN IV. 10/27/16 19:30 11/26/16 19:29 10/29/16 13:31 10 MG Miscellaneous Information (Consult Glycemic Management Pharmacy) 1 ea UD PRN N/A 10/27/16 21:19 11/26/16 21:18 Bupropion HCl (Wellbutrin-Sr Tab) 100 mg TID PO 10/27/16 21:00 11/26/16 20:59 10/30/16 13:24 100 MG Cholecalciferol (Vitamin D Tab) 1,000 inter.unit QAM PO 10/28/16 09:00 11/27/16 08:59 10/30/16 08:09 1,000 INTER.UNIT Ferrous Sulfate (Feosol Tab) 325 mg QAM PO 10/28/16 09:00 11/27/16 08:59 10/30/16 08:08 325 MG Gabapentin (Neurontin Tab) 600 mg TID PO 10/27/16 21:00 11/26/16 20:59 10/30/16 13:24 600 MG Levothyroxine Sodium (Synthroid Tab) 100 mcg DAILYBB PO 10/28/16 06:00 11/27/16 06:59 10/30/16 05:16 100 MCG Lisinopril (Zestril Tab) 20 mg DAILY PO 10/28/16 09:00 11/27/16 08:59 10/30/16 08:08 20 MG Metoclopramide HCl (Reglan Tab) 10 mg TIDM PO 10/28/16 07:30 11/27/16 07:59 10/30/16 13:17 10 MG Metoprolol Tartrate (Lopressor Tab) 12.5 mg BID PO 10/27/16 21:00 11/26/16 20:59 10/30/16 08:10 12.5 MG Rosuvastatin Calcium (Crestor Tab) 20 mg DAILY PO 10/28/16 09:00 11/27/16 08:59 10/30/16 08:09 20 MG Sertraline HCl (Zoloft Tab) 200 mg QAM PO 10/28/16 09:00 11/27/16 08:59 10/30/16 08:10 200 MG Tamsulosin HCl (Flomax Cap) 0.4 mg DAILY PO 10/28/16 09:00 11/27/16 08:59 10/30/16 08:08 0.4 MG Insulin Aspart (novoLOG ASPART) SLIDING SCALE If C... ACHS SC 10/27/16 21:00 11/26/16 20:59 10/30/16 13:23 17 UNITS Glucose (Glucose 40% Gel) 15-30 GRAMS 15 GRAMS... UD PRN PO 10/27/16 20:00 11/26/16 19:59 Glucose (Glucose Chew Tab) 4-8 Tablets 4 Tabl... UD PRN PO 10/27/16 20:00 11/26/16 19:59 Dextrose (Dextrose 50% 50ML Syringe) 25-50ML OF 50% DW IV FOR... UD PRN IV 10/27/16 20:00 11/26/16 19:59 Glucagon (Glucagon Inj) 1 mg UD PRN SQ 10/27/16 20:00 11/26/16 19:59 Hydromorphone HCl (Dilaudid Inj) 0.5 mg Q3H PRN IV 10/27/16 23:00 11/10/16 22:59 10/30/16 08:14 0.5 MG Tramadol HCl (Ultram Tab) not relieved ... Q6H PRN PO 10/27/16 23:00 11/26/16 22:59 10/30/16 09:23 50 MG Clonidine HCl (Catapres Tab) 0.1 mg Q4 PRN PO 10/28/16 13:45 11/27/16 13:44 10/29/16 12:30 0.1 MG Insulin Glargine (Lantus Solostar Pen) 40 unit BID SC 10/29/16 21:00 11/28/16 20:59 10/30/16 09:35 40 UNIT Gadobutrol (Gadavist) 8.5 mmol UD PRN IV 10/29/16 22:15 11/02/16 22:14 Insulin Aspart (novoLOG ASPART) SLIDING SCALE If C... 0200 SC 10/31/16 02:00 11/30/16 01:59 Impression 61 year old female s/p fall from standing with LOC and left arm fracture Plan 1. MRI brain with no acute findings intra cranial 2. optimize DM control 3. tilt table test -cardiology to coordinate 4. orthostatic blood pressure - 20 point drop from lying to standing 5. TTE with no valvular abnormalities 6. EEG pending read but more likely blood pressure issues 7. further recommendations to follow. I have seen and discussed above patient with Dr Raghu Edwards, neurology Patien seen, dixcussed with Elizabeth Poon [facility] ,and currently she is a bit confused and hallucinating but is aware that hallucinations are not "real " sme tremulousness only and exam, mri and eeg are normal or essentially so with some small vessel changes and low lying cerebellar tonsils but no tryu chiari ( we cannot blame this for the falling episodes and continue to feel that these are orthostatic and possibly due to an automomic component of her diabetic polyneuropathy. Will likely need tilt table analysis on opd basis For now howver cannot dischaarge until halllucinations clear and suspect that these were analgesic indjuced Raghu Edwards MD
[2016-10-30] MEDS: WARFARIN SOD 2.5 MG TAB PO SCH (16:09)
--- NOTE | 2016-10-30 16:24 | PROGRESS NOTE ---
DATE: 10/30/2016 CHIEF COMPLAINT: Status post ORIF of the left distal radius postop day #1. HISTORY OF PRESENT ILLNESS: Viky was seen and examined at bedside. Dr. Edwards was in the room when I went in there. Unfortunately, she is having some hallucinations which are possibly secondary to the narcotic pain medications. She is having some soreness in her wrist, but it is not too bad. PHYSICAL EXAMINATION: On physical examination of the left wrist, the volar splint is clean and dry. She has some swelling of her fingers. She does have minimal movement of her fingers, but she is able to move them and her sensation is intact throughout. IMPRESSION: Status post open reduction internal fixation of the left distal radius fracture, postop day #1. PLAN: We are going to keep her a little bit longer mostly for neuro monitoring. She does have an MRI of her brain that was done yesterday and will be reviewed by neurology. She is stable orthopedically for her discharge. I will see her in the office about 2 weeks from the day of surgery. My office phone number is [phone].
[2016-10-30] MEDS ORDERED: ACETAMINOPHEN 500 MG TAB PO SCH (18:00)
[2016-10-30] MEDS ORDERED: TRAMADOL HCL 50 MG TAB PO SCH (18:00)
--- NOTE | 2016-10-30 18:42 | Progress Note ---
Medicine Progress Note Date & Time of Visit: Oct 30, 2016 at 15:37. Subjective 61 yoF s/p syncopal event with fall resulting in L wrist fracture -patient is reporting pain in her L wrist area +gas but has not had BM yet -tolerating PO without difficulty. Objective Last 8 Hrs Date Time Temp Pulse Resp B/P Pulse Ox O2 Delivery O2 Flow Rate FiO2 10/30/16 09:20 90 153/87 10/30/16 07:55 Room Air Physical Exam: GEN: WNWD, in mild distress, alert and appropriate HEENT: traumatic ecchymosis with localized swelling to R>L forehead, no lacerations, pupils are equal, normal sclerae, periorbital bruising seen bilaterally CARDIO: reg rate, S1/2 heard without m/g/r LUNGS: CTA bilaterally, no crackles, rales or wheezes, good diaphragmatic excursion ABD: soft, non-tender, non-distended, no rebound or guarding EXTREMITY: RP and DP palpable 2+ bilat (L forearm casted and could not palpate pulse but fingers are warm and mobile), no LE swelling or edema, extremities are warm and well-perfused NEURO: CN 2-12 grossly intact, sensation intact throughout, limited exam 2/2 patient in pain SKIN: warm and dry and as above. Laboratory Results: Last 24 Hours Test 10/29/16 17:20 10/29/16 20:41 10/30/16 07:45 10/30/16 12:05 Bedside Glucose 206 mg/dl 241 mg/dl 182 mg/dl 269 mg/dl Test 10/30/16 13:50 Prothrombin Time 10.7 SECONDS Prothromb Time International Ratio 1.0 Assessment & Plan 61 yoF s/p syncopal event with fall resulting in L wrist fracture 1. Syncope with frequent falls at home: workup to date including MRI brain, carotid u/s, TTE and cardiac monitoring is unremarkable for an obvious cause for her recurrent syncope. EEG still pending from today. Cardiology and Neurology are both consulted. Working hypothesis is that she may be suffering from autonomic dysfunction from diabetic neuropathy. Considering outpatient tilt table test vs event monitor. Currently stable and healing from the fall. 2. L wrist fracture-management per Ortho. Cont pain control. Ordered scheduled Tramadol and Tylenol q8hrs for now as pain is not well controlled. Will use oxy IR for breakthrough as needed. 3. HTN-slightly elevated likely 2/2 pain; pain control as above, cont lisinopril and lopressor 4. DMII-poorly controlled diabetic with A1C 9.6, cont Lantus and ISS as inpatient; apprec pharmacy assist 5. 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 Restarted today at home dose. New goal INR is 1.8-2.5 in post-op period 6. Hypothyroidism-cont levothyroxine at home dose 7. h/o TIA DVT PROPHYLAXIS warfarin Full Code DO [facility] Hospitalist Continued [facility] stay due to: ambulation difficulties Discharge planning: uncertain Consultants: Neuro, Cardio, Ortho Current Inpatient Medications: Current Inpatient Medications Medications (Trade) Dose Ordered Sig/Frankie Route Start Time Stop Time Status Last Admin Dose Admin Acetaminophen (Tylenol Tab) 650 mg Q4H PRN PO 10/27/16 19:15 11/26/16 19:14 10/28/16 04:29 650 MG Ondansetron HCl (Zofran Inj) 4 mg Q6H PRN IV 10/27/16 19:15 11/26/16 19:14 10/28/16 10:56 4 MG Hydralazine HCl (HydrALAZINE INJ) 10 mg Q6H PRN IV. 10/27/16 19:30 11/26/16 19:29 10/29/16 13:31 10 MG Miscellaneous Information (Consult Glycemic Management Pharmacy) 1 ea UD PRN N/A 10/27/16 21:19 11/26/16 21:18 Bupropion HCl (Wellbutrin-Sr Tab) 100 mg TID PO 10/27/16 21:00 11/26/16 20:59 10/30/16 13:24 100 MG Cholecalciferol (Vitamin D Tab) 1,000 inter.unit QAM PO 10/28/16 09:00 11/27/16 08:59 10/30/16 08:09 1,000 INTER.UNIT Ferrous Sulfate (Feosol Tab) 325 mg QAM PO 10/28/16 09:00 11/27/16 08:59 10/30/16 08:08 325 MG Gabapentin (Neurontin Tab) 600 mg TID PO 10/27/16 21:00 4/16/17 20:59 10/30/16 13:24 600 MG Levothyroxine Sodium (Synthroid Tab) 100 mcg DAILYBB PO 10/28/16 06:00 11/27/16 06:59 10/30/16 05:16 100 MCG Lisinopril (Zestril Tab) 20 mg DAILY PO 10/28/16 09:00 11/27/16 08:59 10/30/16 08:08 20 MG Metoclopramide HCl (Reglan Tab) 10 mg TIDM PO 10/28/16 07:30 11/27/16 07:59 10/30/16 13:17 10 MG Metoprolol Tartrate (Lopressor Tab) 12.5 mg BID PO 10/27/16 21:00 11/26/16 20:59 10/30/16 08:10 12.5 MG Rosuvastatin Calcium (Crestor Tab) 20 mg DAILY PO 10/28/16 09:00 11/27/16 08:59 10/30/16 08:09 20 MG Sertraline HCl (Zoloft Tab) 200 mg QAM PO 10/28/16 09:00 11/27/16 08:59 10/30/16 08:10 200 MG Tamsulosin HCl (Flomax Cap) 0.4 mg DAILY PO 10/28/16 09:00 11/27/16 08:59 10/30/16 08:08 0.4 MG Insulin Aspart (novoLOG ASPART) SLIDING SCALE If C... ACHS SC 10/27/16 21:00 11/26/16 20:59 10/30/16 13:23 17 UNITS Glucose (Glucose 40% Gel) 15-30 GRAMS 15 GRAMS... UD PRN PO 10/27/16 20:00 11/26/16 19:59 Glucose (Glucose Chew Tab) 4-8 Tablets 4 Tabl... UD PRN PO 10/27/16 20:00 11/26/16 19:59 Dextrose (Dextrose 50% 50ML Syringe) 25-50ML OF 50% DW IV FOR... UD PRN IV 10/27/16 20:00 11/26/16 19:59 Glucagon (Glucagon Inj) 1 mg UD PRN SQ 10/27/16 20:00 11/26/16 19:59 Hydromorphone HCl (Dilaudid Inj) 0.5 mg Q3H PRN IV 10/27/16 23:00 11/10/16 22:59 10/30/16 08:14 0.5 MG Tramadol HCl (Ultram Tab) not relieved ... Q6H PRN PO 10/27/16 23:00 11/26/16 22:59 10/30/16 09:23 50 MG Clonidine HCl (Catapres Tab) 0.1 mg Q4 PRN PO 10/28/16 13:45 11/27/16 13:44 10/29/16 12:30 0.1 MG Insulin Glargine (Lantus Solostar Pen) 40 unit BID SC 10/29/16 21:00 11/28/16 20:59 10/30/16 09:35 40 UNIT Gadobutrol (Gadavist) 8.5 mmol UD PRN IV 10/29/16 22:15 11/02/16 22:14 Insulin Aspart (novoLOG ASPART) SLIDING SCALE If C... 0200 SC 10/31/16 02:00 11/30/16 01:59 Warfarin Sodium (Coumadin Tab) 2.5 mg SuMoWeThFr@1600 PO 10/30/16 16:00 11/29/16 15:59 Warfarin Sodium (Coumadin Tab) 5 mg TuSa@1600 PO 10/31/16 16:00 11/30/16 15:59
--- NOTE | 2016-10-30 19:03 | ELECTROENCEPHALOGRAPH REPORT ---
REQUESTED BY: Dr. Edwards. CLINICAL DIAGNOSIS: Recurrent falls with syncope, question seizures. ELECTROENCEPHALOGRAM DIAGNOSIS: Essentially normal during wakefulness. DESCRIPTION OF TRACING: This EEG was done as a bedside recording on a patient who is described as somewhat confused and less than ideally cooperative by the machine packaging technician. A simultaneous video analysis of movement and behavior confirmed this description as there was a lot of head rolling movements and occasional limb movements. Photic stimulation was performed. Hyperventilation was not. Drowsiness and light sleep were not recorded. Under these conditions, there is evidence for a normal background rhythm in the alpha range of up to 10 Hz of maximum frequency and 30 microvolts of maximum amplitude. Unfortunately, this is hampered by the persistence of an intermittent P3 electrode artifact which was very difficult for machine packaging technician to repair because of the head rolling movements. Polymorphic mid frequency theta activity is seen over all head regions without clear focal or regional predominance. Anterior head region maximum bilaterally symmetrical low voltage fast activity in the beta range is present. Photic stimulation provokes a modest driving response with a lot of eye blink artifacts, but no photomyogenic or photoparoxysmal component is seen. At no time during the waking tracing is there evidence for potentially epileptogenic activity in the form of polyspike or spike wave bursts, focal sharp waves or focal spikes. INTERPRETATION: This EEG is essentially normal but hampered by muscle movement artifacts and the P3 electrode artifact during wakefulness without evidence for a significant focal or generalized encephalopathy and without evidence for potentially epileptogenic activity. MTDD
[2016-10-30] MEDS: OXYCODONE HCL IR 5 MG TAB (IMMEDIATE RELEASE) PO PRN (20:27)
[2016-10-30] MEDS: ACETAMINOPHEN 500 MG TAB PO SCH (21:28)
[2016-10-30] MEDS: TRAMADOL HCL 50 MG TAB PO SCH (21:29)
[2016-10-31] VITALS (10 sets, daily range): BP systolic 91–147; BP diastolic 52–82; PULSE 79–99; TEMP 36.5–36.8; O2SAT 95–98; Ht 160 cm; Wt 85.9 kg
[2016-10-31] MEDS ORDERED: INSULIN ASPART 100 UNITS/ML 3 ML PEN SC SCH (02:00)
[2016-10-31] MEDS: LEVOTHYROXINE 100 MCG TAB PO SCH (05:32)
[2016-10-31] MEDS: ACETAMINOPHEN 500 MG TAB PO SCH ×3 (05:33→21:43)
[2016-10-31] MEDS: TRAMADOL HCL 50 MG TAB PO SCH ×3 (05:33→21:43)
[2016-10-31 06:33] LABS: BASO % 0.4 %; BASO ABS # 0.04 K/uL (0-0.2); COMPLETE YES; EOS % 0.9 %; HEMATOCRIT 33.8 % (37-47); IG% 0.4 %; LYMPH % 17.3 %; LYMPH ABS # 1.74 K/uL (1.2-3.4); MEAN CELL VOLUME 88.7 fL (80-100); MEAN CORPUSCULAR HEMOGLOBIN 31.2 pg (25-34); MEAN CORPUSCULAR HGB CONC 35.2 g/dl (32-36); MONO % 11.5 %; NEUT % 69.5 %; PLATELET COUNT 220 K/uL (130-400); RED BLOOD COUNT 3.81 M/uL (4.2-5.4); WHITE BLOOD COUNT 10.05 K/uL (4.8-10.8)
[2016-10-31 06:40] LABS: PROTHROMBIN TIME (PATIENT) 10.9 SECONDS (9.0-12.0)
[2016-10-31 07:02] LABS: BUN/CREATININE RATIO 26.7 (10-20); CALCIUM 9.2 mg/dl (8.5-10.1); CREATININE 0.61 mg/dl (0.60-1.20); MAGNESIUM 2.5 mg/dl (1.8-2.4); POTASSIUM 3.8 mmol/L (3.5-5.1)
[2016-10-31] MEDS: FERROUS SULFATE 325 MG TAB PO SCH (08:43)
[2016-10-31] MEDS: SERTRALINE HCL 100 MG TAB PO SCH (08:43)
[2016-10-31] MEDS: METOPROLOL TARTRATE 25 MG TAB PO SCH ×2 (08:44→21:45)
[2016-10-31] MEDS: BuPROPion SR 100 MG TABCR PO SCH ×3 (08:44→21:42)
[2016-10-31] MEDS: METOCLOPRAMIDE HCL 10 MG TAB PO SCH ×2 (08:44→14:02)
[2016-10-31] MEDS: GABAPENTIN 600 MG TAB PO SCH ×3 (08:45→21:42)
[2016-10-31] MEDS: ROSUVASTATIN CALCIUM 20 MG TAB PO SCH (08:45)
[2016-10-31] MEDS: CHOLECALCIFEROL 1000 INTER.UNIT TAB PO SCH (08:45)
[2016-10-31] MEDS: LISINOPRIL 10 MG TAB PO SCH (08:48)
[2016-10-31] MEDS: OXYCODONE HCL IR 5 MG TAB (IMMEDIATE RELEASE) PO PRN ×2 (08:49→15:38)
[2016-10-31] MEDS: TAMSULOSIN HCL 0.4 MG CAP PO SCH (08:50)
[2016-10-31] MEDS: INSULIN GLARGINE SOLOSTAR 100 UNITS/ML 3 ML PEN SC SCH ×2 (08:56→22:02)
[2016-10-31] MEDS: INSULIN ASPART 100 UNITS/ML 3 ML PEN SC SCH ×4 (09:00→22:01)
--- NOTE | 2016-10-31 09:36 | Pharmacy Progress Note ---
Glycemic Control: Progress Nt Date of Service Oct 31, 2016. Scope Glycemic Pharmacist consulted by DALI Ray on 10/27/16 for glycemic control and to write orders per [facility] inpatient glycemic control protocol. Objective Accuchecks BSG (last 24hrs): Test 10/30/16 12:05 10/30/16 16:28 10/30/16 20:38 10/31/16 02:09 Bedside Glucose 269 mg/dl (70-90) 206 mg/dl (70-90) 136 mg/dl (70-90) 68 mg/dl (70-90) Test 10/31/16 02:31 10/31/16 06:10 10/31/16 08:07 Bedside Glucose 92 mg/dl (70-90) 80 mg/dl (70-90) Random Glucose 83 mg/dl (70-99) Laboratory Data (last 24hrs) Test 10/31/16 06:10 Anion Gap 7.0 mmol/L BUN/Creatinine Ratio 26.7 Blood Urea Nitrogen 16 mg/dl Creatinine 0.61 mg/dl Potassium Level 3.8 mmol/L Sodium Level 139 mmol/L White Blood Count 10.05 K/uL Red Blood Count 3.81 M/uL Hemoglobin 11.9 g/dL Hematocrit 33.8 % Mean Corpuscular Volume 88.7 fL Mean Corpuscular Hemoglobin 31.2 pg Mean Corpuscular Hemoglobin Concent 35.2 g/dl Platelet Count 220 K/uL Mean Platelet Volume 9.0 fL Neutrophils (%) (Auto) 69.5 % Lymphocytes (%) (Auto) 17.3 % Monocytes (%) (Auto) 11.5 % Eosinophils (%) (Auto) 0.9 % Basophils (%) (Auto) 0.4 % Neutrophils # (Auto) 6.98 K/uL Lymphocytes # (Auto) 1.74 K/uL Monocytes # (Auto) 1.16 K/uL Eosinophils # (Auto) 0.09 K/uL Basophils # (Auto) 0.04 K/uL HbA1c: Test 10/28/16 03:00 Hemoglobin A1c 9.6 % (4.5-5.6) H Recent Pertinent Medications Outpatient Anti-diabetic Regimen: * NovoLog 16 units SQ AC * Lantus 42 units SQ BID * Metformin 500mg PO BID * A1c outdated at time of consult The patient is currently receiving: * Basal insulin: Lantus 40 units every 12 hours dosing based on BSG * Correctional Insulin: NovoLog Correction per scale AC/HS Goal Range: Low 120 mg/dL - High 160 mg/dL Correction Factor: 15 mg/dL/unit * Prandial insulin: Per carb ratio of 1 unit per 6 grams CHO consumed * Oral Agents: held on admission Risk Factors for Insulin Resistance: * Recent Surgery: 10/29/16 * Diet: T2DM Assessment & Plan ASSESSMENT: * ADA & AACE recommend a goal blood sugar range 140-180 mg/dl for the majority of critically ill & non-critically ill patients. However, more stringent targets may be selected in individual cases. 120-160mg/dL used for possible orthopedic intervention (to decrease risk of perioperative infection). 10/29/16 * 61 y/o type 2 diabetic known to the glycemic consult service from prior admissions. The most recent was in May 2016. * During this past admission, the patient require >100 units of insulin per day. * A1c = 9.6% 10/28/16. This is down from 11% in 04/2016. * A1c is still slightly above goal range but pt has had multiple falls and syncopal episodes. Less stringent degree of outpatient control warranted. * Pt initiated on aggressive insulin regimen c/w dosing per previous admission. * Pt is currently receiving ~ 94 units of insulin per day. Basal insulin was reduced 3 AM in anticipation of NPO/OR. However, surgery moved to 10/29/16. BSGs elevated throughout the day yesterday d/t reduced insulin dose. * OR this AM per surgery - basal insulin doses will need empirically reduced to prevent hypo 10/30/16 * Fasting BSG this AM 182 mg/dL * A reduced dose of Lantus given yesterday due to NPO for surgery * BSGs began to rise through the evening yesterday likely due to reduced basal dose * Continue current Lantus X 24 hours and reassess fasting tomorrow * Lunch BSG elevated >250 mg/dL * Tighten Novolog starting with dinner coverage * Add 0200 check 10/31/16 * Fasting BSG this AM 83 mg/dL * Overnight 0200 check revealed BSG 68 mg/dL but patient was asymptomatic * Reduce Lantus by 20% * HS BSG looked better after a tightened Novolog used with dinner * Continue for now and reassess appropriateness of change tomorrow PLAN FOR INPATIENT GLYCEMIC CONTROL: * Decrease Lantus to 32 units SQ BID * Continue NovoLog SQ AC and HS * Correction factor: 15 mg/dL/unit * Carb ratio: 1 unit per 6 g of CHO consumed * Goal: 110-150mg/dL * Metformin * continue to hold at this time post-operatively. May resume at the time of discharge * A1c - 9.6% * added to discharge instructions to be communicated to PCP * Would not try to optimize this A1c any further d/t multiple falls and syncope. Outpatient insulin regimen may even need lessened if it is contributing to syncope/hypoglycemia/falls. * Please note that the plan above was derived based on current level of insulin resistance and hospital stress. These recommendations are appropriate for inpatient admission only. Plan of care upon discharge will need to be reassessed to avoid potential outpatient hypo/hyperglycemia. Thank you.
--- NOTE | 2016-10-31 14:54 | Neurology Progress Notes ---
Neurology Progress Note Date of Service Oct 31, 2016. Rebeca Salmon is a 61 year old female who presents to the ER after a fall. She was walking into her house when everything went black and she fell to the ground and hit her head. She reports she loss consciousness for a few seconds after falling and hitting her head. She was not confused but when she fell she hit her head 2 x and then fell on her arm. She has been falling frequently over the past month. She reports some of the time she is passing out. She also notes increasing shortness of breath on exertion. She saw her PCP for these frequent falls and was told she may have autonomic neuropathy from poorly controlled diabetes. She was found to have a transverse fractures of left distal radius and most likely ulna with mild dorsal displacement and was taken to the OR for fixation. At presentation her BP was elevated at 205/115. She is currently she is lying in bed and not feeling well. States her arm is really aching. When she tried to stand with assistance she gets light headed and feels she is going to fall. denies CP, SOB, abdominal pain, some dry mouth, headache due to hematoma on head, denies vision changes. Objective Date Time Temp Pulse Resp B/P Pulse Ox O2 Delivery O2 Flow Rate FiO2 10/31/16 12:59 99 91/52 10/31/16 12:58 99 100/62 10/31/16 12:57 79 109/65 10/31/16 08:20 Room Air 10/31/16 07:49 36.8 81 16 146/80 98 Room Air 10/31/16 00:00 Room Air 10/30/16 23:55 36.8 88 16 128/69 98 Room Air 92 131/72 98 123/66 10/30/16 20:22 100 164/92 10/30/16 16:19 36.8 100 18 144/80 96 Room Air 10/30/16 16:00 Room Air Last 24 Hours Test 10/30/16 16:28 10/30/16 20:38 10/31/16 02:09 10/31/16 02:31 Bedside Glucose 206 mg/dl 136 mg/dl 68 mg/dl 92 mg/dl Test 10/31/16 06:10 10/31/16 08:07 10/31/16 12:02 White Blood Count 10.05 K/uL Red Blood Count 3.81 M/uL Hemoglobin 11.9 g/dL Hematocrit 33.8 % Mean Corpuscular Volume 88.7 fL Mean Corpuscular Hemoglobin 31.2 pg Mean Corpuscular Hemoglobin Concent 35.2 g/dl Platelet Count 220 K/uL Mean Platelet Volume 9.0 fL Neutrophils (%) (Auto) 69.5 % Lymphocytes (%) (Auto) 17.3 % Monocytes (%) (Auto) 11.5 % Eosinophils (%) (Auto) 0.9 % Basophils (%) (Auto) 0.4 % Neutrophils # (Auto) 6.98 K/uL Lymphocytes # (Auto) 1.74 K/uL Monocytes # (Auto) 1.16 K/uL Eosinophils # (Auto) 0.09 K/uL Basophils # (Auto) 0.04 K/uL RDW Standard Deviation 44.2 fL RDW Coefficient of Variation 13.7 % Immature Granulocyte % (Auto) 0.4 % Immature Granulocyte # (Auto) 0.04 K/uL Prothrombin Time 10.9 SECONDS Prothromb Time International Ratio 1.0 Sodium Level 139 mmol/L Potassium Level 3.8 mmol/L Chloride Level 102 mmol/L Carbon Dioxide Level 30 mmol/L Anion Gap 7.0 mmol/L Blood Urea Nitrogen 16 mg/dl Creatinine 0.61 mg/dl Est Creatinine Clear Calc Drug Dose 101.9 ml/min Estimated GFR () 114.2 Estimated GFR (Non- 98.5 BUN/Creatinine Ratio 26.7 Random Glucose 83 mg/dl Calcium Level 9.2 mg/dl Magnesium Level 2.5 mg/dl Bedside Glucose 80 mg/dl 241 mg/dl Imaging: TTE Ejection Fraction = 60-65%. The left ventricular wall motion is normal. Grade I diastolic dysfunction, (abnormal relaxation pattern). The right ventricular systolic function is normal. The left atrial size is normal. Right atrial size is normal. No significant valvular pathology. No ASD EEG-This EEG is essentially normal but hampered by muscle movement artifacts and the P3 electrode artifact during wakefulness without evidence for a significant focal or generalized encephalopathy and without evidence for potentially epileptogenic activity. Exam: Gen: alert NAD, large hematoma on right side of head PERRLA, EOMI lungs CTA CV RRR left hand casted and wrapped, warm digits, good cap refill right hand shackler and biceps triceps 5/5 hip flex plantar flex ext 5/5 bilaterally Current Inpatient Medications Medications (Trade) Dose Ordered Sig/Frankie Route Start Time Stop Time Status Last Admin Dose Admin Ondansetron HCl (Zofran Inj) 4 mg Q6H PRN IV 10/27/16 19:15 11/26/16 19:14 10/28/16 10:56 4 MG Hydralazine HCl (HydrALAZINE INJ) 10 mg Q6H PRN IV. 10/27/16 19:30 11/26/16 19:29 10/29/16 13:31 10 MG Miscellaneous Information (Consult Glycemic Management Pharmacy) 1 ea UD PRN N/A 10/27/16 21:19 11/26/16 21:18 Bupropion HCl (Wellbutrin-Sr Tab) 100 mg TID PO 10/27/16 21:00 11/26/16 20:59 10/31/16 14:01 100 MG Cholecalciferol (Vitamin D Tab) 1,000 inter.unit QAM PO 10/28/16 09:00 11/27/16 08:59 10/31/16 08:45 1,000 INTER.UNIT Ferrous Sulfate (Feosol Tab) 325 mg QAM PO 10/28/16 09:00 11/27/16 08:59 10/31/16 08:43 325 MG Gabapentin (Neurontin Tab) 600 mg TID PO 10/27/16 21:00 11/26/16 20:59 10/31/16 14:03 600 MG Levothyroxine Sodium (Synthroid Tab) 100 mcg DAILYBB PO 10/28/16 06:00 11/27/16 06:59 10/31/16 05:32 100 MCG Lisinopril (Zestril Tab) 20 mg DAILY PO 10/28/16 09:00 11/27/16 08:59 10/31/16 08:48 20 MG Metoclopramide HCl (Reglan Tab) 10 mg TIDM PO 10/28/16 07:30 11/27/16 07:59 10/31/16 14:02 10 MG Metoprolol Tartrate (Lopressor Tab) 12.5 mg BID PO 10/27/16 21:00 11/26/16 20:59 10/31/16 08:44 12.5 MG Rosuvastatin Calcium (Crestor Tab) 20 mg DAILY PO 10/28/16 09:00 11/27/16 08:59 10/31/16 08:45 20 MG Sertraline HCl (Zoloft Tab) 200 mg QAM PO 10/28/16 09:00 11/27/16 08:59 10/31/16 08:43 200 MG Tamsulosin HCl (Flomax Cap) 0.4 mg DAILY PO 10/28/16 09:00 11/27/16 08:59 10/31/16 08:50 0.4 MG Insulin Aspart (novoLOG ASPART) SLIDING SCALE If C... ACHS SC 10/27/16 21:00 11/26/16 20:59 10/31/16 14:12 13 UNITS Glucose (Glucose 40% Gel) 15-30 GRAMS 15 GRAMS... UD PRN PO 10/27/16 20:00 11/26/16 19:59 Glucose (Glucose Chew Tab) 4-8 Tablets 4 Tabl... UD PRN PO 10/27/16 20:00 11/26/16 19:59 Dextrose (Dextrose 50% 50ML Syringe) 25-50ML OF 50% DW IV FOR... UD PRN IV 10/27/16 20:00 11/26/16 19:59 Glucagon (Glucagon Inj) 1 mg UD PRN SQ 10/27/16 20:00 11/26/16 19:59 Clonidine HCl (Catapres Tab) 0.1 mg Q4 PRN PO 10/28/16 13:45 11/27/16 13:44 10/29/16 12:30 0.1 MG Gadobutrol (Gadavist) 8.5 mmol UD PRN IV 10/29/16 22:15 11/02/16 22:14 Warfarin Sodium (Coumadin Tab) 2.5 mg SuMoWeThFr@1600 PO 10/30/16 16:00 11/29/16 15:59 10/30/16 16:09 2.5 MG Warfarin Sodium (Coumadin Tab) 5 mg TuSa@1600 PO 10/31/16 16:00 11/30/16 15:59 Oxycodone HCl (Roxicodone Immediate Rel Tab) 5 mg Q4H PRN PO 10/30/16 16:45 11/13/16 16:44 10/31/16 08:49 5 MG Tramadol HCl (Ultram Tab) 50 mg Q8 PO 10/30/16 22:00 11/29/16 21:59 10/31/16 14:02 50 MG Acetaminophen (Tylenol Tab) 1,000 mg Q8H PO 10/30/16 22:00 11/29/16 21:59 10/31/16 14:03 1,000 MG Insulin Glargine (Lantus Solostar Pen) 32 unit BID SC 10/31/16 09:00 11/30/16 08:59 10/31/16 08:56 32 UNIT Impression 61 year old female s/p fall from standing with LOC and left arm fracture Plan 1. MRI brain with no acute findings intra cranial 2. optimize DM control 3. tilt table test -cardiology to coordinate 4. orthostatic blood pressure - 20 point drop from lying to standing- low blood pressure 5. TTE with no valvular abnormalities 6. EEG no epileptic spikes read but more likely blood pressure issues 7. will be available for further input as needed. 8. reglan is likely causing tremor 9. narcotics may be source of hallucinations 10. INR 1.0 coumadin restarted today. history of PE/DVT I have seen and discussed above patient with Dr Raghu Edwards, neurology Patient seen today Tremor is definitely worsening and suspect that her dose of reglan at home is less than she is getting here would stop it as per Dr John discussion with me earlier.. orthostatics are beginning to become positive and today with systolic of 97 she had some presyncopal sensations I suspect that this is what was happening at home and that bp meds mahy need cut back I am not in favor of volume expansion with florinef at this tiime until outpatient bp management is optimized Raghu Edwards MD
[2016-10-31] MEDS ORDERED: WARFARIN SOD 5 MG TAB PO SCH (16:00)
--- NOTE | 2016-10-31 16:36 | PROGRESS NOTE ---
DATE: 10/31/2016 FOLLOWUP VISIT SUBJECTIVE: The patient is a 61-year-old diabetic female whose diabetes has not been well controlled. She has complications including neuropathy and gastroparesis. She was admitted after a syncopal event with a contusion of her head and fractured left wrist. She has been on Coumadin because of a history of DVT, but suffered no major bleeding. The patient had surgery to repair the wrist fracture and now has a cast. During her hospital admission, she has had orthostatic blood pressures taken by nursing, most do not reflect orthostatic hypotension. She has no complaints today. OBJECTIVE: VITAL SIGNS: Blood pressure is 120/70, pulse is regular at 88. GENERAL: She is afebrile. HEENT: She has contusions over the right eye. Pupils are equal and reactive to light. Mucous membranes are moist. NECK: The neck veins are flat. Carotids have good upstrokes bilaterally without bruits. Thyroid is nonpalpable. RESPIRATORY: Breath sounds are equal bilaterally and clear to auscultation. CARDIOVASCULAR: Heart has a regular rhythm. Normal S1, S2. No S3, S4. No cardiac rubs or murmurs. GASTROINTESTINAL: Abdomen is soft, nontender without organomegaly. EXTREMITIES: The left wrist has a cast. NEUROLOGIC: Grossly intact. SKIN: Warm to touch. LYMPH NODES: Negative to palpation. IMPRESSION: 1. Recurrent syncope or mechanical falls due to diabetic polyneuropathy. 2. Diabetes mellitus, not well controlled. 3. History of deep venous thrombosis, on chronic Coumadin. RECOMMENDATIONS: The patient will be placed back on Coumadin, but I did caution her regarding the need to stop Coumadin if she continues to have falls. Unfortunately, she has a history of several DVTs and is only 61 years of age. Her diabetes will have to be better controlled and this may improve some of her diabetic neuropathy. I plan on seeing her as an outpatient and at that time we will discuss the possibility of a tilt table study.
--- NOTE | 2016-10-31 18:32 | PROGRESS NOTE ---
DATE: 10/31/2016 HISTORY OF PRESENT ILLNESS: Viky was seen and examined at bedside today. Unfortunately, her tremors or neurologic status is not improving much and is requiring her to assist to go to the bathroom. She is having some pain and burning of her left wrist. PHYSICAL EXAMINATION: On physical examination of the left wrist, the dressing is clean and dry. She is wearing her left arm sling. She has some swelling of the fingers. She has minimal motion mostly secondary to pain, but she has no paresthesias. IMPRESSION: Status post open reduction internal fixation of the left distal radius postop day #2. PLAN: She only needs to be in the arm sling for comfort, but she can remove the sling to extend her elbow hopefully help with some of the swelling. I also want her to keep her arm elevated above the heart. She has an ice pack on it now. She is orthopedically stable for discharge once she is medically ready. I do want to see her in my office about 2 weeks from the day of surgery for suture removal and to place her in a cast. BRAEDEN
--- NOTE | 2016-10-31 23:39 | Progress Note ---
Medicine Progress Note Date & Time of Visit: Oct 31, 2016 at 15:18. Subjective 61 yoF s/p syncopal event with fall 2/2 resulting in L wrist fracture -Pt states that her forehead bruises are hurting more today -She also reports no BM yet but is passing alot of gas -states the post-op pain is well-controlled on the scheduled Tylenol/Tramadol started yesterday but she has a different burning pain on her L elbow and into her cast -She has been tolerating PO and ambulating with assist -dizziness reported to OT today Objective Last 8 Hrs Date Time Temp Pulse Resp B/P Pulse Ox O2 Delivery O2 Flow Rate FiO2 10/31/16 15:10 126/76 10/31/16 15:10 133/82 10/31/16 15:08 36.8 88 17 147/78 97 Room Air 10/31/16 14:59 127/67 10/31/16 14:58 107/68 10/31/16 14:57 36.7 85 18 116/67 95 Room Air 10/31/16 12:59 99 91/52 10/31/16 12:58 99 100/62 10/31/16 12:57 79 109/65 10/31/16 08:20 Room Air 10/31/16 07:49 36.8 81 16 146/80 98 Room Air Physical Exam: GEN: WNWD, in mild distress, alert and appropriate HEENT: traumatic ecchymosis with localized swelling to R>L forehead, no lacerations, pupils are equal, normal sclerae, periorbital bruising seen bilaterally-improved since yesterday but still dark purple CARDIO: reg rate, S1/2 heard without m/g/r LUNGS: CTA bilaterally, no crackles, rales or wheezes, good diaphragmatic excursion ABD: soft, non-tender, non-distended, no rebound or guarding EXTREMITY: RP and DP palpable 2+ bilat (L forearm casted and could not palpate pulse but fingers are warm and mobile), no LE swelling or edema, extremities are warm and well-perfused NEURO: CN 2-12 grossly intact, sensation intact throughout, limited exam 2/2 patient in pain SKIN: warm and dry and as above. Laboratory Results: Last 24 Hours Test 10/30/16 16:28 10/30/16 20:38 10/31/16 02:09 10/31/16 02:31 Bedside Glucose 206 mg/dl 136 mg/dl 68 mg/dl 92 mg/dl Test 10/31/16 06:10 10/31/16 08:07 10/31/16 12:02 White Blood Count 10.05 K/uL Red Blood Count 3.81 M/uL Hemoglobin 11.9 g/dL Hematocrit 33.8 % Mean Corpuscular Volume 88.7 fL Mean Corpuscular Hemoglobin 31.2 pg Mean Corpuscular Hemoglobin Concent 35.2 g/dl Platelet Count 220 K/uL Mean Platelet Volume 9.0 fL Neutrophils (%) (Auto) 69.5 % Lymphocytes (%) (Auto) 17.3 % Monocytes (%) (Auto) 11.5 % Eosinophils (%) (Auto) 0.9 % Basophils (%) (Auto) 0.4 % Neutrophils # (Auto) 6.98 K/uL Lymphocytes # (Auto) 1.74 K/uL Monocytes # (Auto) 1.16 K/uL Eosinophils # (Auto) 0.09 K/uL Basophils # (Auto) 0.04 K/uL RDW Standard Deviation 44.2 fL RDW Coefficient of Variation 13.7 % Immature Granulocyte % (Auto) 0.4 % Immature Granulocyte # (Auto) 0.04 K/uL Prothrombin Time 10.9 SECONDS Prothromb Time International Ratio 1.0 Sodium Level 139 mmol/L Potassium Level 3.8 mmol/L Chloride Level 102 mmol/L Carbon Dioxide Level 30 mmol/L Anion Gap 7.0 mmol/L Blood Urea Nitrogen 16 mg/dl Creatinine 0.61 mg/dl Est Creatinine Clear Calc Drug Dose 101.9 ml/min Estimated GFR () 114.2 Estimated GFR (Non- 98.5 BUN/Creatinine Ratio 26.7 Random Glucose 83 mg/dl Calcium Level 9.2 mg/dl Magnesium Level 2.5 mg/dl Bedside Glucose 80 mg/dl 241 mg/dl Assessment & Plan 61 yoF s/p syncopal event with fall 2/2 resulting in L wrist fracture 1. Syncope with frequent falls at home: workup to date including MRI brain, carotid u/s, TTE and cardiac monitoring is unremarkable for an obvious cause for her recurrent syncope. EEG also normal. Orthostatics were positive yesterday, and although negative today she is still very lightheaded upon standing. Cardiology and Neurology are both consulted. Working hypothesis is that she may be suffering from autonomic dysfunction from diabetic neuropathy. Considering outpatient tilt table test vs event monitor as outpatient. Currently stable and healing from the fall. Tremor is likely contributing to her physical limitations and as she is on long-term Reglan I am stopping this now per known extrapyramidal side effects. Would opt for other agent to assist with gastroparesis if needed. 2. Tremors-as above 3. L wrist fracture-management per Ortho. Cont pain control. Ordered scheduled Tramadol and Tylenol q8hrs which is working well for her pain. Will use oxy IR for breakthrough as needed. Gave one for this new burning pain in her cast area 4. HTN-slightly elevated likely 2/2 pain; pain control as above, cont lisinopril and lopressor 5. DMII-poorly controlled diabetic with A1C 9.6 and neuropathy/gastroparesis, cont Lantus and ISS as inpatient; apprec pharmacy assist with inpatient goals 6. 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 Restarted coumadin. New goal INR is 1.8-2.5 in post-op period. Trending daily INR. Subtherapeutic at this time. 7. Hypothyroidism-cont levothyroxine at home dose 8. h/o TIA DVT PROPHYLAXIS warfarin/SCDs Full Code Luana Crater DO [facility] Hospitalist Continued [facility] stay due to: ambulation difficulties Discharge planning: uncertain Consultants: Neuro, Cardio, Ortho Current Inpatient Medications: Current Inpatient Medications Medications (Trade) Dose Ordered Sig/Frankie Route Start Time Stop Time Status Last Admin Dose Admin Ondansetron HCl (Zofran Inj) 4 mg Q6H PRN IV 10/27/16 19:15 11/26/16 19:14 10/28/16 10:56 4 MG Hydralazine HCl (HydrALAZINE INJ) 10 mg Q6H PRN IV. 10/27/16 19:30 11/26/16 19:29 10/29/16 13:31 10 MG Miscellaneous Information (Consult Glycemic Management Pharmacy) 1 ea UD PRN N/A 10/27/16 21:19 11/26/16 21:18 Bupropion HCl (Wellbutrin-Sr Tab) 100 mg TID PO 10/27/16 21:00 11/26/16 20:59 10/31/16 14:01 100 MG Cholecalciferol (Vitamin D Tab) 1,000 inter.unit QAM PO 10/28/16 09:00 11/27/16 08:59 10/31/16 08:45 1,000 INTER.UNIT Ferrous Sulfate (Feosol Tab) 325 mg QAM PO 10/28/16 09:00 11/27/16 08:59 10/31/16 08:43 325 MG Gabapentin (Neurontin Tab) 600 mg TID PO 10/27/16 21:00 11/26/16 20:59 10/31/16 14:03 600 MG Levothyroxine Sodium (Synthroid Tab) 100 mcg DAILYBB PO 10/28/16 06:00 11/27/16 06:59 10/31/16 05:32 100 MCG Lisinopril (Zestril Tab) 20 mg DAILY PO 10/28/16 09:00 11/27/16 08:59 10/31/16 08:48 20 MG Metoclopramide HCl (Reglan Tab) 10 mg TIDM PO 10/28/16 07:30 11/27/16 07:59 10/31/16 14:02 10 MG Metoprolol Tartrate (Lopressor Tab) 12.5 mg BID PO 10/27/16 21:00 11/26/16 20:59 10/31/16 08:44 12.5 MG Rosuvastatin Calcium (Crestor Tab) 20 mg DAILY PO 10/28/16 09:00 11/27/16 08:59 10/31/16 08:45 20 MG Sertraline HCl (Zoloft Tab) 200 mg QAM PO 10/28/16 09:00 11/27/16 08:59 10/31/16 08:43 200 MG Tamsulosin HCl (Flomax Cap) 0.4 mg DAILY PO 10/28/16 09:00 11/27/16 08:59 10/31/16 08:50 0.4 MG Insulin Aspart (novoLOG ASPART) SLIDING SCALE If C... ACHS SC 10/27/16 21:00 11/26/16 20:59 10/31/16 14:12 13 UNITS Glucose (Glucose 40% Gel) 15-30 GRAMS 15 GRAMS... UD PRN PO 10/27/16 20:00 11/26/16 19:59 Glucose (Glucose Chew Tab) 4-8 Tablets 4 Tabl... UD PRN PO 10/27/16 20:00 11/26/16 19:59 Dextrose (Dextrose 50% 50ML Syringe) 25-50ML OF 50% DW IV FOR... UD PRN IV 10/27/16 20:00 11/26/16 19:59 Glucagon (Glucagon Inj) 1 mg UD PRN SQ 10/27/16 20:00 11/26/16 19:59 Clonidine HCl (Catapres Tab) 0.1 mg Q4 PRN PO 10/28/16 13:45 11/27/16 13:44 10/29/16 12:30 0.1 MG Gadobutrol (Gadavist) 8.5 mmol UD PRN IV 10/29/16 22:15 11/02/16 22:14 Warfarin Sodium (Coumadin Tab) 2.5 mg SuMoWeThFr@1600 PO 10/30/16 16:00 11/29/16 15:59 10/30/16 16:09 2.5 MG Warfarin Sodium (Coumadin Tab) 5 mg TuSa@1600 PO 10/31/16 16:00 11/30/16 15:59 Oxycodone HCl (Roxicodone Immediate Rel Tab) 5 mg Q4H PRN PO 10/30/16 16:45 11/13/16 16:44 10/31/16 08:49 5 MG Tramadol HCl (Ultram Tab) 50 mg Q8 PO 10/30/16 22:00 11/29/16 21:59 10/31/16 14:02 50 MG Acetaminophen (Tylenol Tab) 1,000 mg Q8H PO 10/30/16 22:00 11/29/16 21:59 10/31/16 14:03 1,000 MG Insulin Glargine (Lantus Solostar Pen) 32 unit BID SC 10/31/16 09:00 11/30/16 08:59 10/31/16 08:56 32 UNIT
[2016-11-01] MEDS: OXYCODONE HCL IR 5 MG TAB (IMMEDIATE RELEASE) PO PRN ×5 (00:14→23:13)
[2016-11-01] MEDS: TRAMADOL HCL 50 MG TAB PO SCH ×3 (05:44→21:20)
[2016-11-01] MEDS: LEVOTHYROXINE 100 MCG TAB PO SCH (05:44)
[2016-11-01] MEDS: ACETAMINOPHEN 500 MG TAB PO SCH ×3 (05:45→21:21)
[2016-11-01 07:07] VITALS: BP_SYST 128; BP_SYST 168; BP_DIAS 72; BP_DIAS 83; PULSE 74; PULSE 85; TEMP 36.5; TEMP 36.6; O2SAT 96
[2016-11-01 08:02] LABS: INR 1.1 (0.9-1.1)
[2016-11-01] MEDS: SERTRALINE HCL 100 MG TAB PO SCH (09:42)
[2016-11-01] MEDS: METOPROLOL TARTRATE 25 MG TAB PO SCH (09:42)
[2016-11-01] MEDS: ROSUVASTATIN CALCIUM 20 MG TAB PO SCH (09:43)
[2016-11-01] MEDS: FERROUS SULFATE 325 MG TAB PO SCH (09:43)
[2016-11-01] MEDS: BuPROPion SR 100 MG TABCR PO SCH ×3 (09:43→21:20)
[2016-11-01] MEDS: TAMSULOSIN HCL 0.4 MG CAP PO SCH (09:43)
[2016-11-01] MEDS: CHOLECALCIFEROL 1000 INTER.UNIT TAB PO SCH (09:44)
[2016-11-01] MEDS: GABAPENTIN 600 MG TAB PO SCH ×3 (09:44→21:20)
[2016-11-01] MEDS: LISINOPRIL 10 MG TAB PO SCH (09:44)
[2016-11-01] MEDS: INSULIN ASPART 100 UNITS/ML 3 ML PEN SC SCH ×4 (09:55→21:18)
[2016-11-01] MEDS: INSULIN GLARGINE SOLOSTAR 100 UNITS/ML 3 ML PEN SC SCH ×2 (09:56→21:19)
--- NOTE | 2016-11-01 14:40 | Pharmacy Progress Note ---
Glycemic Control: Progress Nt Date of Service Nov 01, 2016. Scope Glycemic Pharmacist consulted for glycemic control and to write orders per [facility] inpatient glycemic control protocol. Objective Accuchecks BSG (last 24hrs): Test 10/31/16 16:30 10/31/16 18:35 10/31/16 20:48 11/01/16 08:07 Bedside Glucose 93 mg/dl (70-90) 83 mg/dl (70-90) 212 mg/dl (70-90) 104 mg/dl (70-90) Test 11/01/16 11:59 Bedside Glucose 227 mg/dl (70-90) HbA1c: Test 10/28/16 03:00 Hemoglobin A1c 9.6 % (4.5-5.6) H Recent Pertinent Medications Outpatient Anti-diabetic Regimen: * NovoLog 16 units SQ AC * Lantus 42 units SQ BID * Metformin 500mg PO BID * A1c outdated at time of consult The patient is currently receiving: * Basal insulin: Lantus 32 units SQ every 12 hours * Correctional Insulin: NovoLog Correction per scale AC/HS Goal Range: Low 110 mg/dL - High 150 mg/dL Correction Factor: 15 mg/dL/unit * Prandial insulin: Per carb ratio of 1 unit per 6 grams CHO consumed * Oral Agents: held on admission Risk Factors for Insulin Resistance: * Recent Surgery: 10/29/16 * Diet Assessment & Plan ASSESSMENT: * ADA & AACE recommend a goal blood sugar range 140-180 mg/dl for the majority of critically ill & non-critically ill patients. However, more stringent targets may be selected in individual cases. 120-160mg/dL used for post-op orthopedic intervention (to decrease risk of post-operative infection). * 61 y/o type 2 diabetic known to the glycemic consult service from prior admissions. The most recent was in May 2016. * During this past admission, the patient require >100 units of insulin per day. * A1c = 9.6% 10/28/16. This is down from 11% in 04/2016. * A1c is still slightly above goal range but pt has had multiple falls and syncopal episodes. Less stringent degree of outpatient control warranted. * Pt initiated on insulin regimen c/w dosing per previous admission. * Pt is currently requiring ~ 93 units of insulin per day. * AM fasting BSG trending downwards, will continue to decrease basal insulin * Pre-lunch BSG elevated but this is typical for everyday. Expect that this is elevated d/t late Breakfast insulin administration and then pre-lunch BSG check taken slightly after (insulin has not had time to peak yet at the time of pre- lunch accu-check). PLAN FOR INPATIENT GLYCEMIC CONTROL: * DECREASE Lantus 25 units SQ BID * NovoLog SQ AC and HS * Correction factor: 15mg/dL/unit * Carb ratio: 1 unit per 6g of CHO consumed * Goal: 120-160mg/dL * Metformin * continue to hold at this time post-operatively. May resume at the time of discharge Looking ahead to discharge: * A1c - 9.6% * added to discharge instructions to be communicated to PCP * Would not try to optimize this A1c any further d/t multiple falls and syncope. Outpatient insulin regimen may even need lessened if it is contributing to syncope/hypoglycemia/falls. * Please note that the plan above was derived based on current level of insulin resistance and hospital stress. These recommendations are appropriate for inpatient admission only. Plan of care upon discharge will need to be reassessed to avoid potential outpatient hypo/hyperglycemia. Thank you.
[2016-11-01 15:06] VITALS: BP 148/81; PULSE 93; TEMP 36.9; O2SAT 96
[2016-11-01 15:07] VITALS: BP 154/90
[2016-11-01 15:10] VITALS: BP 111/76
--- NOTE | 2016-11-01 15:24 | Neurology Progress Notes ---
Neurology Progress Note Date of Service Nov 01, 2016. Rebeca Salmon is a 61 year old female who presents to the ER after a fall. She was walking into her house when everything went black and she fell to the ground and hit her head. She reports she loss consciousness for a few seconds after falling and hitting her head. She was not confused but when she fell she hit her head 2 x and then fell on her arm. She has been falling frequently over the past month. She reports some of the time she is passing out. She also notes increasing shortness of breath on exertion. She saw her PCP for these frequent falls and was told she may have autonomic neuropathy from poorly controlled diabetes. She was found to have a transverse fractures of left distal radius and most likely ulna with mild dorsal displacement and was taken to the OR for fixation. At presentation her BP was elevated at 205/115. She is currently she is lying in bed she states she was up walking in the [place] with PT today. She states she is confused today but she is oriented per exam States her arm is really aching. While in the room patients orthostatic blood pressure where done. there is a significant drop again of 20 points from lying to standing. denies CP, SOB, abdominal pain, some dry mouth, headache due to hematoma on head, denies vision changes. Objective Date Time Temp Pulse Resp B/P Pulse Ox O2 Delivery O2 Flow Rate FiO2 11/01/16 15:07 154/90 11/01/16 15:06 36.9 93 17 148/81 96 Room Air 11/01/16 08:40 Room Air 11/01/16 07:07 36.5 85 18 168/83 96 Room Air 11/01/16 00:05 Room Air 10/31/16 23:55 36.5 82 18 117/62 98 Room Air 10/31/16 15:30 Room Air Last 24 Hours Test 10/31/16 16:30 10/31/16 18:35 10/31/16 20:48 11/01/16 07:30 Bedside Glucose 93 mg/dl 83 mg/dl 212 mg/dl Prothrombin Time 12.0 SECONDS Prothromb Time International Ratio 1.1 Test 11/01/16 08:07 11/01/16 11:59 Bedside Glucose 104 mg/dl 227 mg/dl Imaging: no new imaging Exam: Physical Exam: Constitutional: appearance nourished, obese Ears, Nose, Mouth and Throat: mucous membranes moist, no injection and skin normal, eyes normal Cardiovascular: normal S-1 and S-2 and regular rate and rhythm Respiratory: clear to auscultation (CTA) and no rales, rhonchi or wheeze Musculoskeletal: no peripheral edema and good distal pulses Skin: further evolution of ecchymosis on face and left arm Eyes: extraocular muscles intact (EOMI) and pupils equal, round and reactive to light (PERRL) NEUROLOGIC EXAMINATION: Mental status: Alert and interactive Oriented to full date and location Oriented to person Speech fluent with no evidence of aphasia Cranial Nerves smile and eye brow raise symmetric Coordination: Romberg absent with eyes open Gait/Stance: Posture normal. Gait normal: with steady with steps, base, turning, heel and toe walking and tandem gait. Motor: Cece with no nystagmus to the right Strength: sits up and stands with no assistance, uses can to stand but is self supporting Current Inpatient Medications Medications (Trade) Dose Ordered Sig/Frankie Route Start Time Stop Time Status Last Admin Dose Admin Ondansetron HCl (Zofran Inj) 4 mg Q6H PRN IV 10/27/16 19:15 11/26/16 19:14 10/28/16 10:56 4 MG Hydralazine HCl (HydrALAZINE INJ) 10 mg Q6H PRN IV. 10/27/16 19:30 11/26/16 19:29 10/29/16 13:31 10 MG Miscellaneous Information (Consult Glycemic Management Pharmacy) 1 ea UD PRN N/A 10/27/16 21:19 11/26/16 21:18 Bupropion HCl (Wellbutrin-Sr Tab) 100 mg TID PO 10/27/16 21:00 11/26/16 20:59 11/01/16 09:43 100 MG Cholecalciferol (Vitamin D Tab) 1,000 inter.unit QAM PO 10/28/16 09:00 11/27/16 08:59 11/01/16 09:44 1,000 INTER.UNIT Ferrous Sulfate (Feosol Tab) 325 mg QAM PO 10/28/16 09:00 11/27/16 08:59 11/01/16 09:43 325 MG Gabapentin (Neurontin Tab) 600 mg TID PO 10/27/16 21:00 11/26/16 20:59 11/01/16 13:38 600 MG Levothyroxine Sodium (Synthroid Tab) 100 mcg DAILYBB PO 10/28/16 06:00 11/27/16 06:59 11/01/16 05:44 100 MCG Lisinopril (Zestril Tab) 20 mg DAILY PO 10/28/16 09:00 11/27/16 08:59 11/01/16 09:44 20 MG Metoprolol Tartrate (Lopressor Tab) 12.5 mg BID PO 10/27/16 21:00 11/26/16 20:59 11/01/16 09:42 12.5 MG Rosuvastatin Calcium (Crestor Tab) 20 mg DAILY PO 10/28/16 09:00 11/27/16 08:59 11/01/16 09:43 20 MG Sertraline HCl (Zoloft Tab) 200 mg QAM PO 10/28/16 09:00 11/27/16 08:59 11/01/16 09:42 200 MG Tamsulosin HCl (Flomax Cap) 0.4 mg DAILY PO 10/28/16 09:00 11/27/16 08:59 11/01/16 09:43 0.4 MG Insulin Aspart (novoLOG ASPART) SLIDING SCALE If C... ACHS SC 10/27/16 21:00 11/26/16 20:59 11/01/16 13:44 13 UNITS Glucose (Glucose 40% Gel) 15-30 GRAMS 15 GRAMS... UD PRN PO 10/27/16 20:00 11/26/16 19:59 Glucose (Glucose Chew Tab) 4-8 Tablets 4 Tabl... UD PRN PO 10/27/16 20:00 11/26/16 19:59 Dextrose (Dextrose 50% 50ML Syringe) 25-50ML OF 50% DW IV FOR... UD PRN IV 10/27/16 20:00 11/26/16 19:59 Glucagon (Glucagon Inj) 1 mg UD PRN SQ 10/27/16 20:00 11/26/16 19:59 Clonidine HCl (Catapres Tab) 0.1 mg Q4 PRN PO 10/28/16 13:45 11/27/16 13:44 10/29/16 12:30 0.1 MG Gadobutrol (Gadavist) 8.5 mmol UD PRN IV 10/29/16 22:15 11/02/16 22:14 Warfarin Sodium (Coumadin Tab) 2.5 mg SuMoWeThFr@1600 PO 10/30/16 16:00 11/29/16 15:59 10/30/16 16:09 2.5 MG Warfarin Sodium (Coumadin Tab) 5 mg TuSa@1600 PO 10/31/16 16:00 11/30/16 15:59 10/31/16 15:37 5 MG Oxycodone HCl (Roxicodone Immediate Rel Tab) 5 mg Q4H PRN PO 10/30/16 16:45 11/13/16 16:44 11/01/16 09:45 5 MG Tramadol HCl (Ultram Tab) 50 mg Q8 PO 10/30/16 22:00 11/29/16 21:59 11/01/16 13:39 50 MG Acetaminophen (Tylenol Tab) 1,000 mg Q8H PO 10/30/16 22:00 11/29/16 21:59 11/01/16 13:40 1,000 MG Insulin Glargine (Lantus Solostar Pen) 25 unit BID SC 11/01/16 09:00 12/01/16 08:59 11/01/16 09:56 25 UNIT Impression 61 year old female s/p fall from standing with LOC and left arm fracture Plan 1. MRI brain with no acute findings intra cranial 2. optimize DM control 3. tilt table test -cardiology to coordinate 4. orthostatic blood pressure - 20 point drop from lying to standing- low blood pressure 5. TTE with no valvular abnormalities 6. EEG no epileptic spikes read but more likely blood pressure issues 7. will be available for further input as needed. 8. reglan is likely causing tremor was stopped during this admission 9. narcotics may be source of hallucinations 10. INR 1.0 coumadin restarted today. history of PE/DVT 11. would have PT due yumiko Arzola to provide information if vertigo can be r/o 12. PT recommending [facility] but patient is refusing- likely will not be able to manage at home if unable to ambulate to the bathroom I have seen and discussed above patient with Dr Raghu Edwards, neurology Seen and reviewed story still not clear and now there are more complaints of transient brief duration vertigo prior to falls May well be a mix or bppv and orthostasis Hallpike maneuvers today were trace positive for subjective vertigo and no observed nystagmus on horizontal head movements wihen supine but she also reported similar symptoms with drop in bp during orthostatic testing earlier today so picture could be mixed ie bppv plus orthostatic issues and suggestions for cece maneuver and outpatient tilt table remain in force we have foound no evidence to support VBI and some of current symptoms could reflect residua of closed head trauma despite negative imaging [facility] would be best but she is adamant against going there so we eill have to compromise Neurology will continue to follow but have actually few or no further recommendations Raghu Edwards MD
[2016-11-01] MEDS: WARFARIN SOD 2.5 MG TAB PO SCH (17:23)
--- NOTE | 2016-11-01 17:39 | Progress Note ---
Medicine Progress Note Date & Time of Visit: Nov 01, 2016 at 16:07. Subjective 61 yoF s/p syncopal event with fall 2/2 resulting in L wrist fracture -BM today -tolerating PO -pain controlled but there is soreness under her cast -tremors have improved off the Reglan with no significant nausea with eating -walked with therapy today and had several spells of lightheadedness -reports having a headache related to her bruising in her head Objective Last 8 Hrs Date Time Temp Pulse Resp B/P Pulse Ox O2 Delivery O2 Flow Rate FiO2 11/01/16 15:10 111/76 11/01/16 15:07 154/90 11/01/16 15:06 36.9 93 17 148/81 96 Room Air 11/01/16 08:40 Room Air Physical Exam: GEN: WNWD, in mild distress, alert and appropriate HEENT: traumatic ecchymosis with localized swelling to R>L forehead, no lacerations, pupils are equal, normal sclerae, periorbital bruising seen bilaterally-more purple today on the R side CARDIO: reg rate, S1/2 heard without m/g/r LUNGS: CTA bilaterally, no crackles, rales or wheezes, good diaphragmatic excursion ABD: soft, non-tender, non-distended, no rebound or guarding EXTREMITY: RP and DP palpable 2+ bilat (L forearm casted and could not palpate pulse but fingers are warm and mobile), no LE swelling or edema, extremities are warm and well-perfused NEURO: CN 2-12 grossly intact, sensation intact throughout, no gross focal deficits, tremor is improved but still present and generalized. Limited exam 2/ 2 patient in pain. SKIN: warm and dry and as above. Laboratory Results: Last 24 Hours Test 10/31/16 16:30 10/31/16 18:35 10/31/16 20:48 11/01/16 07:30 Bedside Glucose 93 mg/dl 83 mg/dl 212 mg/dl Prothrombin Time 12.0 SECONDS Prothromb Time International Ratio 1.1 Test 11/01/16 08:07 11/01/16 11:59 Bedside Glucose 104 mg/dl 227 mg/dl Assessment & Plan 61 yoF s/p syncopal event with fall 2/2 resulting in L wrist fracture 1. Syncope with frequent falls at home: workup to date including MRI brain, carotid u/s, TTE and cardiac monitoring is unremarkable for an obvious cause for her recurrent syncope. EEG also normal. Orthostatics have been positive post-operatively. Cardiology and Neurology are both consulted. Working hypothesis is that she may be suffering from autonomic dysfunction from diabetic neuropathy. In addition to that, she is in a post-op state with persistent pain that is now better controlled, and she has had significant shaking and tremors from Reglan use which was stopped yesterday. She is shaking noticeably less today. Considering outpatient tilt table test. There were no postural symptoms upon standing today but she was feeling lightheaded after exerting herself down the hallway. She is deconditioned from this hospitalization somewhat but this is occurring at home, also. The lightheadedness is very debilitating to her and she now mentions that she is having daily headaches several times per day that is contributing to her lightheadedness. Currently stable and healing from the fall. Overall multiple contributing factors including post-op state, deconditioning, mild anemia, extrapyramidal symptoms from reglan use, autonomic dysfunction from diabetic neuropathy. Neurology is considering BPPV as the patient has now mentioned more of a spinning effect. Will request PT to come and perform Dariusz as a treatment. She will need optimization of her health from many angles starting with better control of her diabetes, working closely with Dr. Hilliard ( PCP) to get ahold of these headaches, staying off the Reglan and using an alternative agent for gastroparesis as needed (she is fine so far), and making lifestyle changes such as weight loss through exercise (safely) and eating well. All of this was discussed with her as she is currently very disabled in the state of things. I will also reduce her lisinopril to 10mg PO daily and cut out her metoprolol to see if this helps with the OH. Finally I discussed with she and her that it is risky and dangerous for her to be home alone and that rehab for a short time is strongly recommended. She and her both verbalized understanding of the risks and would still like to go home anyway with home health. 2. Tremors-improved off Reglan as above 3. L wrist fracture-management per Ortho. Cont pain control. Ordered scheduled Tramadol and Tylenol q8hrs which is working well for her pain. Cont using oxy IR for breakthrough as needed. PT/OT daily 4. HTN-slightly elevated likely 2/2 pain; pain control as above, cont lisinopril and stop Lopressor per changes above. 5. DMII-poorly controlled diabetic with A1C 9.6 and neuropathy/gastroparesis, cont Lantus and ISS as inpatient; apprec pharmacy assist with inpatient goals 6. 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 Restarted coumadin. New goal INR is 1.8-2.5 in post-op period. Trending daily INR. Subtherapeutic at this time. 7. Anemia-multifactorial with acute blood loss anemia 2/2 recent surgery, daily phlebotomy and dilution from IVF. Monitor PRN. 7. Hypothyroidism-cont levothyroxine at home dose 8. h/o TIA DVT PROPHYLAXIS warfarin/SCDs Full Code DO [facility] Hospitalist Continued [facility] stay due to: ambulation difficulties Discharge planning: uncertain Consultants: Neuro, Cardio, Ortho Current Inpatient Medications: Current Inpatient Medications Medications (Trade) Dose Ordered Sig/Frankie Route Start Time Stop Time Status Last Admin Dose Admin Ondansetron HCl (Zofran Inj) 4 mg Q6H PRN IV 10/27/16 19:15 11/26/16 19:14 10/28/16 10:56 4 MG Hydralazine HCl (HydrALAZINE INJ) 10 mg Q6H PRN IV. 10/27/16 19:30 11/26/16 19:29 10/29/16 13:31 10 MG Miscellaneous Information (Consult Glycemic Management Pharmacy) 1 ea UD PRN N/A 10/27/16 21:19 11/26/16 21:18 Bupropion HCl (Wellbutrin-Sr Tab) 100 mg TID PO 10/27/16 21:00 11/26/16 20:59 11/01/16 09:43 100 MG Cholecalciferol (Vitamin D Tab) 1,000 inter.unit QAM PO 10/28/16 09:00 11/27/16 08:59 11/01/16 09:44 1,000 INTER.UNIT Ferrous Sulfate (Feosol Tab) 325 mg QAM PO 10/28/16 09:00 11/27/16 08:59 11/01/16 09:43 325 MG Gabapentin (Neurontin Tab) 600 mg TID PO 10/27/16 21:00 11/26/16 20:59 11/01/16 13:38 600 MG Levothyroxine Sodium (Synthroid Tab) 100 mcg DAILYBB PO 10/28/16 06:00 11/27/16 06:59 11/01/16 05:44 100 MCG Lisinopril (Zestril Tab) 20 mg DAILY PO 10/28/16 09:00 11/27/16 08:59 11/01/16 09:44 20 MG Metoprolol Tartrate (Lopressor Tab) 12.5 mg BID PO 10/27/16 21:00 11/26/16 20:59 11/01/16 09:42 12.5 MG Rosuvastatin Calcium (Crestor Tab) 20 mg DAILY PO 10/28/16 09:00 11/27/16 08:59 11/01/16 09:43 20 MG Sertraline HCl (Zoloft Tab) 200 mg QAM PO 10/28/16 09:00 11/27/16 08:59 11/01/16 09:42 200 MG Tamsulosin HCl (Flomax Cap) 0.4 mg DAILY PO 10/28/16 09:00 11/27/16 08:59 11/01/16 09:43 0.4 MG Insulin Aspart (novoLOG ASPART) SLIDING SCALE If C... ACHS SC 10/27/16 21:00 11/26/16 20:59 11/01/16 13:44 13 UNITS Glucose (Glucose 40% Gel) 15-30 GRAMS 15 GRAMS... UD PRN PO 10/27/16 20:00 11/26/16 19:59 Glucose (Glucose Chew Tab) 4-8 Tablets 4 Tabl... UD PRN PO 10/27/16 20:00 11/26/16 19:59 Dextrose (Dextrose 50% 50ML Syringe) 25-50ML OF 50% DW IV FOR... UD PRN IV 10/27/16 20:00 11/26/16 19:59 Glucagon (Glucagon Inj) 1 mg UD PRN SQ 10/27/16 20:00 11/26/16 19:59 Clonidine HCl (Catapres Tab) 0.1 mg Q4 PRN PO 10/28/16 13:45 11/27/16 13:44 10/29/16 12:30 0.1 MG Gadobutrol (Gadavist) 8.5 mmol UD PRN IV 10/29/16 22:15 11/02/16 22:14 Warfarin Sodium (Coumadin Tab) 2.5 mg SuMoWeThFr@1600 PO 10/30/16 16:00 11/29/16 15:59 10/30/16 16:09 2.5 MG Warfarin Sodium (Coumadin Tab) 5 mg TuSa@1600 PO 10/31/16 16:00 11/30/16 15:59 10/31/16 15:37 5 MG Oxycodone HCl (Roxicodone Immediate Rel Tab) 5 mg Q4H PRN PO 10/30/16 16:45 11/13/16 16:44 11/01/16 09:45 5 MG Tramadol HCl (Ultram Tab) 50 mg Q8 PO 10/30/16 22:00 11/29/16 21:59 11/01/16 13:39 50 MG Acetaminophen (Tylenol Tab) 1,000 mg Q8H PO 10/30/16 22:00 11/29/16 21:59 11/01/16 13:40 1,000 MG Insulin Glargine (Lantus Solostar Pen) 25 unit BID SC 11/01/16 09:00 12/01/16 08:59 11/01/16 09:56 25 UNIT
--- NOTE | 2016-11-01 18:59 | PROGRESS NOTE ---
DATE: 11/01/2016 CHIEF COMPLAINT: Status post ORIF of the left distal radius, postop day #3. PROGRESS: Viky was seen and examined at bedside today. Overall, she looks a little bit better today. She is still having a lot of soreness in her wrist. She had no acute events. PHYSICAL EXAMINATION: LEFT WRIST: The dressing is clean and dry. She is not wearing her left arm sling today. She has pain and swelling of the fingers. She has minimal motion, mostly secondary to pain. No paresthesias. IMPRESSION: Status post open reduction internal fixation of the left distal radius fracture, postoperative day #3. PLAN: At this point, she is doing about as well as expected. I advised her to keep ice on it and keep it elevated. She is orthopedically stable for discharge when she is medically ready. I will see her in my office about 2 weeks from the day of surgery for suture removal and possibly place her in a hard cast. Office phone number is [phone]. I am going to sign off at this point. If there are any further questions, please feel free to contact me personally on my cell phone at [phone].
[2016-11-01 22:50] VITALS: BP 166/88; PULSE 89; TEMP 36.5; O2SAT 96
[2016-11-01 23:09] VITALS: BP 149/75
[2016-11-02] VITALS (9 sets, daily range): BP systolic 122–184; BP diastolic 73–98; PULSE 90–122; TEMP 36.6–36.9; O2SAT 94–99
[2016-11-02] MEDS: LEVOTHYROXINE 100 MCG TAB PO SCH (05:45)
[2016-11-02] MEDS: TRAMADOL HCL 50 MG TAB PO SCH ×3 (05:46→22:15)
[2016-11-02] MEDS: ACETAMINOPHEN 500 MG TAB PO SCH ×3 (05:46→22:16)
[2016-11-02 07:18] LABS: HEMATOCRIT 37.3 % (37-47); MEAN CORPUSCULAR HEMOGLOBIN 30.8 pg (25-34); MEAN CORPUSCULAR HGB CONC 34.6 g/dl (32-36); MEAN PLATELET VOLUME 8.8 fL (7.4-10.4); PLATELET COUNT 253 K/uL (130-400); RED BLOOD COUNT 4.19 M/uL (4.2-5.4); WHITE BLOOD COUNT 9.25 K/uL (4.8-10.8)
[2016-11-02 07:30] LABS: INR 1.2 (0.9-1.1); PROTHROMBIN TIME (PATIENT) 12.9 SECONDS (9.0-12.0)
[2016-11-02] MEDS: OXYCODONE HCL IR 5 MG TAB (IMMEDIATE RELEASE) PO PRN ×3 (07:58→18:35)
[2016-11-02 08:03] LABS: BUN/CREATININE RATIO 21.5 (10-20); CALCIUM 9.2 mg/dl (8.5-10.1); CREATININE 0.65 mg/dl (0.60-1.20); MAGNESIUM 2.3 mg/dl (1.8-2.4); POTASSIUM 4.4 mmol/L (3.5-5.1)
[2016-11-02] MEDS ORDERED: LISINOPRIL 10 MG TAB PO SCH (09:00)
[2016-11-02] MEDS: ROSUVASTATIN CALCIUM 20 MG TAB PO SCH (09:28)
[2016-11-02] MEDS: TAMSULOSIN HCL 0.4 MG CAP PO SCH (09:29)
[2016-11-02] MEDS: CHOLECALCIFEROL 1000 INTER.UNIT TAB PO SCH (09:29)
[2016-11-02] MEDS: FERROUS SULFATE 325 MG TAB PO SCH (09:30)
[2016-11-02] MEDS: BuPROPion SR 100 MG TABCR PO SCH ×3 (09:30→22:16)
[2016-11-02] MEDS: SERTRALINE HCL 100 MG TAB PO SCH (09:31)
[2016-11-02] MEDS: GABAPENTIN 600 MG TAB PO SCH ×3 (09:32→22:15)
[2016-11-02] MEDS: INSULIN ASPART 100 UNITS/ML 3 ML PEN SC SCH ×4 (09:44→22:27)
[2016-11-02] MEDS: INSULIN GLARGINE SOLOSTAR 100 UNITS/ML 3 ML PEN SC SCH ×2 (09:45→22:28)
[2016-11-02] MEDS: LISINOPRIL 10 MG TAB PO SCH (09:46)
[2016-11-02] MEDS: WARFARIN SOD 2.5 MG TAB PO SCH (16:06)
--- NOTE | 2016-11-02 20:16 | Neurology Progress Notes ---
Neurology Progress Note Date of Service Nov 02, 2016. Rebeca Salmon is a 61 year old female who presents to the ER after a fall. She was walking into her house when everything went black and she fell to the ground and hit her head. She reports she loss consciousness for a few seconds after falling and hitting her head. She was not confused but when she fell she hit her head 2 x and then fell on her arm. She has been falling frequently over the past month. She reports some of the time she is passing out. She also notes increasing shortness of breath on exertion. She saw her PCP for these frequent falls and was told she may have autonomic neuropathy from poorly controlled diabetes. She was found to have a transverse fractures of left distal radius and most likely ulna with mild dorsal displacement and was taken to the OR for fixation. At presentation her BP was elevated at 205/115. She is reporting less difficulty with walking today. She states she is tired from working with physical therapy. denies CP, SOB, abdominal pain, headache, N , V. Objective Date Time Temp Pulse Resp B/P Pulse Ox O2 Delivery O2 Flow Rate FiO2 11/02/16 18:40 107 11/02/16 16:04 110 11/02/16 15:51 36.6 122 16 125/73 99 Room Air 11/02/16 14:56 118 98 11/02/16 13:36 104 166/84 111 169/93 120 122/75 11/02/16 09:37 96 159/82 11/02/16 08:02 36.8 90 16 184/98 95 Room Air 11/02/16 07:30 95 Room Air 11/01/16 23:09 149/75 11/01/16 22:50 36.5 89 18 166/88 96 Room Air Last 24 Hours Test 11/01/16 20:32 11/02/16 07:10 11/02/16 08:23 11/02/16 12:28 Bedside Glucose 181 mg/dl 160 mg/dl 278 mg/dl White Blood Count 9.25 K/uL Red Blood Count 4.19 M/uL Hemoglobin 12.9 g/dL Hematocrit 37.3 % Mean Corpuscular Volume 89.0 fL Mean Corpuscular Hemoglobin 30.8 pg Mean Corpuscular Hemoglobin Concent 34.6 g/dl RDW Standard Deviation 44.3 fL RDW Coefficient of Variation 13.7 % Platelet Count 253 K/uL Mean Platelet Volume 8.8 fL Prothrombin Time 12.9 SECONDS Prothromb Time International Ratio 1.2 Sodium Level 136 mmol/L Potassium Level 4.4 mmol/L Chloride Level 99 mmol/L Carbon Dioxide Level 30 mmol/L Anion Gap 7.0 mmol/L Blood Urea Nitrogen 14 mg/dl Creatinine 0.65 mg/dl Est Creatinine Clear Calc Drug Dose 95.6 ml/min Estimated GFR () 111.8 Estimated GFR (Non- 96.5 BUN/Creatinine Ratio 21.5 Random Glucose 172 mg/dl Calcium Level 9.2 mg/dl Magnesium Level 2.3 mg/dl Test 11/02/16 16:55 Bedside Glucose 152 mg/dl Imaging: no new imaging Exam: Physical Exam: Constitution: appearance nourished, healthy and normal Ears, Nose, Mouth and Throat: mucous membranes moist, no injection and skin normal, eyes ecchymosis bilaterally R>L Cardiovascular: normal S-1 and S-2 and regular rate and rhythm Respiratory: clear to auscultation (CTA) and no rales, rhonchi or wheeze Musculoskeletal: no peripheral edema Skin: multiple areas of bruise at several stages of healing, left hand digits warm to touch good cap refill Eyes: extraocular muscles intact (EOMI) and pupils equal, round and reactive to light (PERRL) NEUROLOGIC EXAMINATION: Mental status: Alert and interactive Oriented to full date and location Oriented to person Speech fluent with no evidence of aphasia Cranial Nerves smile eye brow raise symmetric Reflexes: Deep tendon reflexes were symmetrical and graded 2/5. Plantar responses were flexor. 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 10/27/16 19:30 11/26/16 19:29 10/29/16 13:31 10 MG Miscellaneous Information (Consult Glycemic Management Pharmacy) 1 ea UD PRN N/A 10/27/16 21:19 11/26/16 21:18 Bupropion HCl (Wellbutrin-Sr Tab) 100 mg TID PO 10/27/16 21:00 11/26/16 20:59 11/02/16 13:48 100 MG Cholecalciferol (Vitamin D Tab) 1,000 inter.unit QAM PO 10/28/16 09:00 11/27/16 08:59 11/02/16 09:29 1,000 INTER.UNIT Ferrous Sulfate (Feosol Tab) 325 mg QAM PO 10/28/16 09:00 11/27/16 08:59 11/02/16 09:30 325 MG Gabapentin (Neurontin Tab) 600 mg TID PO 10/27/16 21:00 11/26/16 20:59 11/02/16 13:43 600 MG Levothyroxine Sodium (Synthroid Tab) 100 mcg DAILYBB PO 10/28/16 06:00 11/27/16 06:59 11/02/16 05:45 100 MCG Rosuvastatin Calcium (Crestor Tab) 20 mg DAILY PO 10/28/16 09:00 11/27/16 08:59 11/02/16 09:28 20 MG Sertraline HCl (Zoloft Tab) 200 mg QAM PO 10/28/16 09:00 11/27/16 08:59 11/02/16 09:31 200 MG Tamsulosin HCl (Flomax Cap) 0.4 mg DAILY PO 10/28/16 09:00 11/27/16 08:59 11/02/16 09:29 0.4 MG Insulin Aspart (novoLOG ASPART) SLIDING SCALE If C... ACHS SC 10/27/16 21:00 11/26/16 20:59 11/02/16 18:32 7 UNITS Glucose (Glucose 40% Gel) 15-30 GRAMS 15 GRAMS... UD PRN PO 10/27/16 20:00 11/26/16 19:59 Glucose (Glucose Chew Tab) 4-8 Tablets 4 Tabl... UD PRN PO 10/27/16 20:00 11/26/16 19:59 Dextrose (Dextrose 50% 50ML Syringe) 25-50ML OF 50% DW IV FOR... UD PRN IV 10/27/16 20:00 11/26/16 19:59 Glucagon (Glucagon Inj) 1 mg UD PRN SQ 10/27/16 20:00 11/26/16 19:59 Clonidine HCl (Catapres Tab) 0.1 mg Q4 PRN PO 10/28/16 13:45 11/27/16 13:44 10/29/16 12:30 0.1 MG Gadobutrol (Gadavist) 8.5 mmol UD PRN IV 10/29/16 22:15 11/02/16 22:14 Warfarin Sodium (Coumadin Tab) 2.5 mg SuMoWeThFr@1600 PO 10/30/16 16:00 11/29/16 15:59 11/02/16 16:06 2.5 MG Warfarin Sodium (Coumadin Tab) 5 mg TuSa@1600 PO 10/31/16 16:00 11/30/16 15:59 10/31/16 15:37 5 MG Oxycodone HCl (Roxicodone Immediate Rel Tab) 5 mg Q4H PRN PO 10/30/16 16:45 11/13/16 16:44 11/02/16 18:35 5 MG Tramadol HCl (Ultram Tab) 50 mg Q8 PO 10/30/16 22:00 11/29/16 21:59 11/02/16 13:47 50 MG Acetaminophen (Tylenol Tab) 1,000 mg Q8H PO 10/30/16 22:00 11/29/16 21:59 11/02/16 13:44 1,000 MG Insulin Glargine (Lantus Solostar Pen) 25 unit BID SC 11/01/16 09:00 12/01/16 08:59 11/02/16 09:45 25 UNIT Lisinopril (Zestril Tab) 20 mg DAILY PO 11/02/16 10:00 12/02/16 09:59 11/02/16 09:46 20 MG Impression 61 year old female s/p fall from standing with LOC and left arm fracture Plan 1. MRI brain with no acute findings intra cranial 2. optimize DM control 3. tilt table test -cardiology to coordinate 4. orthostatic blood pressure - 20 point drop from lying to standing- low blood pressure 5. TTE with no valvular abnormalities 6. EEG no epileptic spikes read but more likely blood pressure issues 7. plan for [facility] tomorrow-patient is now agreeable 8. reglan is likely causing tremor was stopped during this admission- may have been cause parkinsonism with gait issues 9. narcotics may be source of hallucinations 10. INR 1.0 coumadin restarted today. history of PE/DVT 11. would have PT due a Dariusz to provide information if vertigo can be r/o - was not beneficial 12. will sign off for now will be available for any questions or input follow up with neurology in 3-4 weeks after discharge from facility Pt seen and examined. Pt reports a shuffling gait resulting in falls. On exam no rest tremor, or cogwheel. Minor postural instability, no shuffling. 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
[2016-11-03] VITALS (9 sets, daily range): BP systolic 86–132; BP diastolic 45–79; PULSE 88–112; TEMP 36.6–36.8; O2SAT 92–97
[2016-11-03] MEDS: METOPROLOL SUCC 25MG EXT REL TAB PO SCH ×2 (00:30→21:38)
[2016-11-03] MEDS: OXYCODONE HCL IR 5 MG TAB (IMMEDIATE RELEASE) PO PRN ×3 (02:02→20:01)
[2016-11-03] MEDS: ACETAMINOPHEN 500 MG TAB PO SCH ×3 (05:19→21:35)
[2016-11-03] MEDS: LEVOTHYROXINE 100 MCG TAB PO SCH (05:19)
[2016-11-03] MEDS: TRAMADOL HCL 50 MG TAB PO SCH ×3 (05:23→21:38)
--- NOTE | 2016-11-03 07:47 | Progress Note ---
Medicine Progress Note Date & Time of Visit: Nov 02, 2016 at 15:16. Subjective 61 yoF s/p syncopal event with fall 2/2 resulting in L wrist fracture -headache still present -worsened periorbital bruising on coumadin -tired from therapy session today -overall pain in cast managed but still having significant breakthrough -tolerating PO Objective Last 8 Hrs Date Time Temp Pulse Resp B/P Pulse Ox O2 Delivery O2 Flow Rate FiO2 11/02/16 13:36 104 166/84 111 169/93 120 122/75 11/02/16 09:37 96 159/82 11/02/16 08:02 36.8 90 16 184/98 95 Room Air 11/02/16 07:30 95 Room Air Physical Exam: GEN: WNWD, in mild distress, alert and appropriate HEENT: traumatic ecchymosis with localized swelling to R>L forehead, no lacerations, pupils are equal, normal sclerae, periorbital bruising seen bilaterally-more purple on right and left eye CARDIO: reg rate, S1/2 heard without m/g/r LUNGS: CTA bilaterally, no crackles, rales or wheezes, good diaphragmatic excursion ABD: soft, non-tender, non-distended, no rebound or guarding EXTREMITY: RP and DP palpable 2+ bilat (L forearm casted and could not palpate pulse but fingers are warm and mobile), no LE swelling or edema, extremities are warm and well-perfused NEURO: CN 2-12 grossly intact, sensation intact throughout, no gross focal deficits, tremor is improved but still present and generalized. Limited exam 2/ 2 patient in pain. SKIN: warm and dry and as above. Laboratory Results: Last 24 Hours Test 11/01/16 17:17 11/01/16 20:32 11/02/16 07:10 11/02/16 08:23 Bedside Glucose 89 mg/dl 181 mg/dl 160 mg/dl White Blood Count 9.25 K/uL Red Blood Count 4.19 M/uL Hemoglobin 12.9 g/dL Hematocrit 37.3 % Mean Corpuscular Volume 89.0 fL Mean Corpuscular Hemoglobin 30.8 pg Mean Corpuscular Hemoglobin Concent 34.6 g/dl RDW Standard Deviation 44.3 fL RDW Coefficient of Variation 13.7 % Platelet Count 253 K/uL Mean Platelet Volume 8.8 fL Prothrombin Time 12.9 SECONDS Prothromb Time International Ratio 1.2 Sodium Level 136 mmol/L Potassium Level 4.4 mmol/L Chloride Level 99 mmol/L Carbon Dioxide Level 30 mmol/L Anion Gap 7.0 mmol/L Blood Urea Nitrogen 14 mg/dl Creatinine 0.65 mg/dl Est Creatinine Clear Calc Drug Dose 95.6 ml/min Estimated GFR () 111.8 Estimated GFR (Non- 96.5 BUN/Creatinine Ratio 21.5 Random Glucose 172 mg/dl Calcium Level 9.2 mg/dl Magnesium Level 2.3 mg/dl Test 11/02/16 12:28 Bedside Glucose 278 mg/dl Assessment & Plan 61 yoF s/p syncopal event with fall / resulting in L wrist fracture 1. Syncope with frequent falls at home: workup to date including MRI brain, carotid u/s, TTE and cardiac monitoring is unremarkable for an obvious cause for her recurrent syncope. EEG also normal. Orthostatics have been positive post-operatively so no need for outpatient tilt at this time. Cardiology and Neurology are both consulted. Working hypothesis is that she may be suffering from autonomic dysfunction from diabetic neuropathy. In addition to that, she is in a post-op state with persistent pain that is now better controlled, and she has had significant shaking and tremors from Reglan use which was stopped. Overall multiple contributing factors including post-op state, deconditioning, mild anemia, extrapyramidal symptoms from reglan use, autonomic dysfunction from diabetic neuropathy. Dariusz was not helpful today. She will need optimization of her health from many angles starting with better control of her diabetes, working closely with Dr. Hilliard (PCP) to get ahold of these headaches , staying off the Reglan and using an alternative agent for gastroparesis as needed (she is fine so far), and making lifestyle changes such as weight loss through exercise (safely) and eating well. All of this was discussed with her as she is currently very disabled in the state of things. Lisinopril was bumped back to home dose, and after metoprolol was stopped her HR went up >100 consistently. Unsure how much this improved lightheadedness, however, switched her to Toprol 25 at night to avoid possible lightheadedness in the daytime. Agreeable for rehab today. 2. Tremors-improved off Reglan as above 3. L wrist fracture-management per Ortho. Cont pain control. Ordered scheduled Tramadol and Tylenol q8hrs which is working well for her pain. Cont using oxy IR for breakthrough as needed. PT/OT daily 4. HTN-slightly elevated likely 2/2 pain; pain control as above, cont lisinopril and stop Lopressor per changes above. 5. DMII-poorly controlled diabetic with A1C 9.6 and neuropathy/gastroparesis, cont Lantus and ISS as inpatient; apprec pharmacy assist with inpatient goals 6. 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 Restarted coumadin. New goal INR is 1.8-2.5 in post-op period. Trending daily INR. Subtherapeutic at this time. 7. Anemia-multifactorial with acute blood loss anemia 2/2 recent surgery, daily phlebotomy and dilution from IVF. No indication for transfusion at this time. 8. Hypothyroidism-cont levothyroxine at home dose 9. h/o TIA DVT PROPHYLAXIS warfarin/SCDs Full Code Luana Carter DO [facility] Hospitalist Continued [facility] stay due to: ambulation difficulties Discharge planning: uncertain Consultants: Neuro, Cardio, Ortho Current Inpatient Medications: Current Inpatient Medications Medications (Trade) Dose Ordered Sig/Frankie Route Start Time Stop Time Status Last Admin Dose Admin Ondansetron HCl (Zofran Inj) 4 mg Q6H PRN IV 10/27/16 19:15 11/26/16 19:14 10/28/16 10:56 4 MG Hydralazine HCl (HydrALAZINE INJ) 10 mg Q6H PRN IV. 10/27/16 19:30 11/26/16 19:29 10/29/16 13:31 10 MG Miscellaneous Information (Consult Glycemic Management Pharmacy) 1 ea UD PRN N/A 10/27/16 21:19 11/26/16 21:18 Bupropion HCl (Wellbutrin-Sr Tab) 100 mg TID PO 10/27/16 21:00 11/26/16 20:59 11/02/16 13:48 100 MG Cholecalciferol (Vitamin D Tab) 1,000 inter.unit QAM PO 10/28/16 09:00 11/27/16 08:59 11/02/16 09:29 1,000 INTER.UNIT Ferrous Sulfate (Feosol Tab) 325 mg QAM PO 10/28/16 09:00 11/27/16 08:59 11/02/16 09:30 325 MG Gabapentin (Neurontin Tab) 600 mg TID PO 10/27/16 21:00 11/26/16 20:59 11/02/16 13:43 600 MG Levothyroxine Sodium (Synthroid Tab) 100 mcg DAILYBB PO 10/28/16 06:00 11/27/16 06:59 11/02/16 05:45 100 MCG Rosuvastatin Calcium (Crestor Tab) 20 mg DAILY PO 10/28/16 09:00 11/27/16 08:59 11/02/16 09:28 20 MG Sertraline HCl (Zoloft Tab) 200 mg QAM PO 10/28/16 09:00 11/27/16 08:59 11/02/16 09:31 200 MG Tamsulosin HCl (Flomax Cap) 0.4 mg DAILY PO 10/28/16 09:00 11/27/16 08:59 11/02/16 09:29 0.4 MG Insulin Aspart (novoLOG ASPART) SLIDING SCALE If C... ACHS SC 10/27/16 21:00 11/26/16 20:59 11/02/16 13:47 14 UNITS Glucose (Glucose 40% Gel) 15-30 GRAMS 15 GRAMS... UD PRN PO 10/27/16 20:00 11/26/16 19:59 Glucose (Glucose Chew Tab) 4-8 Tablets 4 Tabl... UD PRN PO 10/27/16 20:00 11/26/16 19:59 Dextrose (Dextrose 50% 50ML Syringe) 25-50ML OF 50% DW IV FOR... UD PRN IV 10/27/16 20:00 11/26/16 19:59 Glucagon (Glucagon Inj) 1 mg UD PRN SQ 10/27/16 20:00 11/26/16 19:59 Clonidine HCl (Catapres Tab) 0.1 mg Q4 PRN PO 10/28/16 13:45 11/27/16 13:44 10/29/16 12:30 0.1 MG Gadobutrol (Gadavist) 8.5 mmol UD PRN IV 10/29/16 22:15 11/02/16 22:14 Warfarin Sodium (Coumadin Tab) 2.5 mg SuMoWeThFr@1600 PO 10/30/16 16:00 11/29/16 15:59 11/01/16 17:23 2.5 MG Warfarin Sodium (Coumadin Tab) 5 mg TuSa@1600 PO 10/31/16 16:00 11/30/16 15:59 10/31/16 15:37 5 MG Oxycodone HCl (Roxicodone Immediate Rel Tab) 5 mg Q4H PRN PO 10/30/16 16:45 11/13/16 16:44 11/02/16 12:10 5 MG Tramadol HCl (Ultram Tab) 50 mg Q8 PO 10/30/16 22:00 11/29/16 21:59 11/02/16 13:47 50 MG Acetaminophen (Tylenol Tab) 1,000 mg Q8H PO 10/30/16 22:00 11/29/16 21:59 11/02/16 13:44 1,000 MG Insulin Glargine (Lantus Solostar Pen) 25 unit BID SC 11/01/16 09:00 12/01/16 08:59 11/02/16 09:45 25 UNIT Lisinopril (Zestril Tab) 20 mg DAILY PO 11/02/16 10:00 12/02/16 09:59 11/02/16 09:46 20 MG
[2016-11-03 08:19] LABS: HEMATOCRIT 36.9 % (37-47); MEAN CELL VOLUME 88.9 fL (80-100); MEAN CORPUSCULAR HEMOGLOBIN 30.8 pg (25-34); MEAN CORPUSCULAR HGB CONC 34.7 g/dl (32-36); MEAN PLATELET VOLUME 8.9 fL (7.4-10.4); PLATELET COUNT 295 K/uL (130-400); RED BLOOD COUNT 4.15 M/uL (4.2-5.4); WHITE BLOOD COUNT 12.51 K/uL (4.8-10.8)
[2016-11-03] MEDS: ROSUVASTATIN CALCIUM 20 MG TAB PO SCH (08:38)
[2016-11-03] MEDS: SERTRALINE HCL 100 MG TAB PO SCH (08:38)
[2016-11-03] MEDS: BuPROPion SR 100 MG TABCR PO SCH ×3 (08:38→21:38)
[2016-11-03] MEDS: TAMSULOSIN HCL 0.4 MG CAP PO SCH (08:38)
[2016-11-03 08:39] LABS: INR 1.3 (0.9-1.1)
[2016-11-03] MEDS: CHOLECALCIFEROL 1000 INTER.UNIT TAB PO SCH (08:39)
[2016-11-03] MEDS: FERROUS SULFATE 325 MG TAB PO SCH (08:39)
[2016-11-03] MEDS: GABAPENTIN 600 MG TAB PO SCH ×3 (08:39→21:39)
[2016-11-03 08:47] LABS: CALCIUM 9.4 mg/dl (8.5-10.1); CREATININE 0.62 mg/dl (0.60-1.20); POTASSIUM 4.4 mmol/L (3.5-5.1)
[2016-11-03] MEDS: INSULIN ASPART 100 UNITS/ML 3 ML PEN SC SCH ×4 (08:48→21:37)
[2016-11-03] MEDS: INSULIN GLARGINE SOLOSTAR 100 UNITS/ML 3 ML PEN SC SCH ×2 (08:49→21:37)
[2016-11-03] MEDS: LISINOPRIL 10 MG TAB PO SCH (09:00)
[2016-11-03] MEDS: POLYETHYLENE (MIRALAX) 17 GM PACK PO SCH (10:15)
[2016-11-03] MEDS ORDERED: BISACODYL 10 MG SUPP PR PRN (10:15)
[2016-11-03] MEDS ORDERED: NURSING VERBAL MED ORDER ONE (10:45)
[2016-11-03] MEDS ORDERED: SODIUM CHLORIDE 0.9% 1000ML 500 ML IV SCH (11:00)
--- NOTE | 2016-11-03 15:10 | Pharmacy Progress Note ---
Glycemic Control: Progress Nt Date of Service Nov 03, 2016. Scope Glycemic Pharmacist consulted by DALI Ray on 10/27/16 for glycemic control and to write orders per [facility] inpatient glycemic control protocol. Objective Accuchecks BSG (last 24hrs): Test 11/02/16 16:55 11/02/16 20:46 11/03/16 08:02 11/03/16 08:15 Bedside Glucose 152 mg/dl (70-90) 177 mg/dl (70-90) 174 mg/dl (70-90) Random Glucose 169 mg/dl (70-99) Test 11/03/16 11:57 Bedside Glucose 231 mg/dl (70-90) Laboratory Data (last 24hrs) Test 11/03/16 08:02 Anion Gap 7.0 mmol/L BUN/Creatinine Ratio 20.0 Blood Urea Nitrogen 12 mg/dl Creatinine 0.62 mg/dl Potassium Level 4.4 mmol/L Sodium Level 135 mmol/L White Blood Count 12.51 K/uL HbA1c: Test 10/28/16 03:00 Hemoglobin A1c 9.6 % (4.5-5.6) H Recent Pertinent Medications Outpatient Anti-diabetic Regimen: * NovoLog 16 units SQ AC * Lantus 42 units SQ BID * Metformin 500mg PO BID The patient is currently receiving: * Basal insulin: Lantus 25 units every 12 hours * Correctional Insulin: NovoLog Correction per scale AC/HS Goal Range: Low 110 mg/dL - High 150 mg/dL Correction Factor: 15 mg/dL/unit * Prandial insulin: Per carb ratio of 1 unit per 6 grams CHO consumed * Oral Agents: held on admission Risk Factors for Insulin Resistance: * Recent Surgery * Diet Assessment & Plan ASSESSMENT: 11/03/16 * 61 y/o type 2 diabetic known to the glycemic consult service from prior admissions. The most recent was in May 2016. * During this past admission, the patient require >100 units of insulin per day. * A1c = 9.6% 10/28/16. This is down from 11% in 04/2016. * A1c is still slightly above goal range but pt has had multiple falls and syncopal episodes. Less stringent degree of outpatient control warranted. * Fasting BSGs had trended down earlier in the week, warranting a gradual decrease in basal insulin * Since most recent decrease in basal on 11/01/16, Fasting BSGs have trended from 104-->160-->174 mg/dL * Due to this trend I feel a slight increase in basal insulin is warranted * Increase Lantus by ~12% * Continue current Novolog coverage for now- reassess in the AM * ADA & AACE recommend a goal blood sugar range 140-180 mg/dl for the majority of critically ill & non-critically ill patients. However, more stringent targets may be selected in individual cases. 110-150mg/dL used for post-op orthopedic intervention (to decrease risk of post-operative infection). PLAN FOR INPATIENT GLYCEMIC CONTROL: * Increase to Lantus 28 units SQ BID * Continue NovoLog SQ AC and HS * Correction factor: 15mg/dL/unit * Carb ratio: 1 unit per 6g of CHO consumed * Goal: 110-150mg/dL * Metformin * continue to hold at this time post-operatively. May resume at the time of discharge Looking ahead to discharge: * A1c - 9.6% * added to discharge instructions to be communicated to PCP * Would not try to optimize this A1c any further d/t multiple falls and syncope. Outpatient insulin regimen may even need lessened if it is contributing to syncope/hypoglycemia/falls. * Please note that the plan above was derived based on current level of insulin resistance and hospital stress. These recommendations are appropriate for inpatient admission only. Plan of care upon discharge will need to be reassessed to avoid potential outpatient hypo/hyperglycemia. Thank you.
[2016-11-03] MEDS ORDERED: MILK AND MOLASSES ENEMA PR ONE (15:15)
[2016-11-03] MEDS ORDERED: WARFARIN SOD 5 MG TAB PO SCH (16:00)
--- NOTE | 2016-11-03 17:42 | Progress Note ---
Medicine Progress Note Date & Time of Visit: Nov 03, 2016 at 15:00. Subjective 61 yoF s/p syncopal event with fall 2/2 resulting in L wrist fracture -episode of lightheadedness and hypotension in setting of bearing down to have a BM this morning. -she became very dizzy while working to pass some hard stool -she felt better after getting into bed--500cc NS was given -pain is controlled in arm, but headache is constantly there-oxy reportedly takes the edge off -She is tolerating PO Objective Last 8 Hrs Date Time Temp Pulse Resp B/P Pulse Ox O2 Delivery O2 Flow Rate FiO2 11/03/16 14:55 36.7 91 16 121/78 97 Room Air 11/03/16 14:07 95 126/76 11/03/16 14:07 116/64 11/03/16 14:07 120/67 11/03/16 10:35 94/61 11/03/16 10:35 86/55 11/03/16 10:20 86/55 Physical Exam: GEN: WNWD, in mild distress, alert and appropriate HEENT: traumatic ecchymosis with localized swelling to R>L forehead, no lacerations, pupils are equal, normal sclerae, periorbital bruising seen bilaterally-more purple on right and left eye--starting to show signs of healing CARDIO: reg rate, S1/2 heard without m/g/r LUNGS: CTA bilaterally, no crackles, rales or wheezes, good diaphragmatic excursion ABD: soft, non-tender, non-distended, no rebound or guarding EXTREMITY: RP and DP palpable 2+ bilat (L forearm casted and could not palpate pulse but fingers are warm and mobile), no LE swelling or edema, extremities are warm and well-perfused NEURO: CN 2-12 grossly intact, sensation intact throughout, no gross focal deficits, tremor is improved but still present and generalized. Limited exam 2/ 2 patient in pain. SKIN: warm and dry and as above. Laboratory Results: 11/03/16 08:02 11/03/16 08:02 Test 10/27/16 15:38 10/27/16 15:40 10/27/16 21:30 10/28/16 03:00 Activated Partial Thromboplast Time 33.8 SECONDS (21.0-31.0) Partial Thromboplastin Ratio 1.3 Beta-Hydroxybutyric Acid 1.94 mg/dL (0.2-2.81) Bedside Troponin I 0.000 ng/ml (0-0.045) Hepatitis C Antibody Screen NEG (NEG) Estimated Average Glucose 229 mg/dl Hemoglobin A1c 9.6 % (4.5-5.6) Troponin I < 0.015 ng/ml (0-0.045) Test 10/31/16 06:10 11/02/16 07:10 11/03/16 08:02 11/03/16 16:46 Immature Granulocyte % (Auto) 0.4 % White Blood Count 10.05 K/uL (4.8-10.8) Red Blood Count 3.81 M/uL (4.2-5.4) 4.15 M/uL (4.2-5.4) Hemoglobin 11.9 g/dL (12.0-16.0) Hematocrit 33.8 % (37-47) Mean Corpuscular Volume 88.7 fL (80-100) 88.9 fL (80-100) Mean Corpuscular Hemoglobin 31.2 pg (25-34) 30.8 pg (25-34) Mean Corpuscular Hemoglobin Concent 35.2 g/dl (32-36) 34.7 g/dl (32-36) Platelet Count 220 K/uL (130-400) Mean Platelet Volume 9.0 fL (7.4-10.4) 8.9 fL (7.4-10.4) Neutrophils (%) (Auto) 69.5 % Lymphocytes (%) (Auto) 17.3 % Monocytes (%) (Auto) 11.5 % Eosinophils (%) (Auto) 0.9 % Basophils (%) (Auto) 0.4 % Neutrophils # (Auto) 6.98 K/uL (1.4-6.5) Lymphocytes # (Auto) 1.74 K/uL (1.2-3.4) Monocytes # (Auto) 1.16 K/uL (0.11-0.59) Eosinophils # (Auto) 0.09 K/uL (0-0.5) Basophils # (Auto) 0.04 K/uL (0-0.2) Immature Granulocyte # (Auto) 0.04 K/uL (0.00-0.02) Magnesium Level 2.3 mg/dl (1.8-2.4) RDW Standard Deviation 44.0 fL (36.4-46.3) RDW Coefficient of Variation 13.6 % (11.5-14.5) Prothrombin Time 14.0 SECONDS (9.0-12.0) Prothromb Time International Ratio 1.3 (0.9-1.1) Anion Gap 7.0 mmol/L (3-11) Est Creatinine Clear Calc Drug Dose 100.2 ml/min Estimated GFR () 113.6 Estimated GFR (Non- 98.0 BUN/Creatinine Ratio 20.0 (10-20) Calcium Level 9.4 mg/dl (8.5-10.1) Bedside Glucose 97 mg/dl (70-90) Last 24 Hours Test 11/02/16 20:46 11/03/16 08:02 11/03/16 08:15 11/03/16 11:57 Bedside Glucose 177 mg/dl 174 mg/dl 231 mg/dl White Blood Count 12.51 K/uL Red Blood Count 4.15 M/uL Hemoglobin 12.8 g/dL Hematocrit 36.9 % Mean Corpuscular Volume 88.9 fL Mean Corpuscular Hemoglobin 30.8 pg Mean Corpuscular Hemoglobin Concent 34.7 g/dl RDW Standard Deviation 44.0 fL RDW Coefficient of Variation 13.6 % Platelet Count 295 K/uL Mean Platelet Volume 8.9 fL Prothrombin Time 14.0 SECONDS Prothromb Time International Ratio 1.3 Sodium Level 135 mmol/L Potassium Level 4.4 mmol/L Chloride Level 101 mmol/L Carbon Dioxide Level 27 mmol/L Anion Gap 7.0 mmol/L Blood Urea Nitrogen 12 mg/dl Creatinine 0.62 mg/dl Est Creatinine Clear Calc Drug Dose 100.2 ml/min Estimated GFR () 113.6 Estimated GFR (Non- 98.0 BUN/Creatinine Ratio 20.0 Random Glucose 169 mg/dl Calcium Level 9.4 mg/dl Test 11/03/16 16:46 Bedside Glucose 97 mg/dl Assessment & Plan 61 yoF s/p syncopal event with fall 2/2 resulting in L wrist fracture 1. Syncope with frequent falls at home/orthostatic hypotension: workup to date including MRI brain, carotid u/s, TTE and cardiac monitoring is unremarkable for an obvious cause for her recurrent syncope. EEG also normal. Orthostatics have been positive post-operatively so no need for outpatient tilt at this time. Cardiology and Neurology are both consulted. Working hypothesis is that she may be suffering from autonomic dysfunction from diabetic neuropathy. In addition to that, she is in a post-op state with persistent pain that is now better controlled, and she has had significant shaking and tremors from Reglan use which was stopped. Overall multiple contributing factors including post-op state, deconditioning, mild anemia, extrapyramidal symptoms from reglan use, autonomic dysfunction from diabetic neuropathy. Dariusz was not helpful today. She will need optimization of her health from many angles starting with better control of her diabetes, working closely with Dr. Hilliard (PCP) to get ahold of these headaches , staying off the Reglan and using an alternative agent for gastroparesis as needed (she is fine so far), and making lifestyle changes such as weight loss through exercise (safely) and eating well. All of this was discussed with her as she is currently very disabled in the state of things. Lisinopril was bumped back to home dose, and after metoprolol was stopped her HR went up >100 consistently. Unsure how much this improved lightheadedness, however, switched her to Toprol 25 at night to avoid possible lightheadedness in the daytime. Agreeable for rehab today. 2. Tremors-improved off Reglan as above 3. L wrist fracture-management per Ortho. Cont pain control. Ordered scheduled Tramadol and Tylenol q8hrs which is working well for her pain. Cont using oxy IR for breakthrough as needed. PT/OT daily 4. HTN-slightly elevated likely 2/2 pain; pain control as above, cont lisinopril and stop Lopressor per changes above. 5. DMII-poorly controlled diabetic with A1C 9.6 and neuropathy/gastroparesis, cont Lantus and ISS as inpatient; apprec pharmacy assist with inpatient goals 6. 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 Increased dose to 5mg daily as she is still subtherapeutic. New goal INR is 1.8-2.5 in post-op period. Trending daily INR. 7. Anemia-multifactorial with acute blood loss anemia 2/2 recent surgery, daily phlebotomy and dilution from IVF. No indication for transfusion at this time. 8. Hypothyroidism-cont levothyroxine at home dose 9. h/o TIA 10. constipation-ordered MOM enema today DVT PROPHYLAXIS warfarin/SCDs Full Code [facility] Continued [facility] stay due to: ambulation difficulties Discharge planning: uncertain Consultants: Neuro, Cardio, Ortho Current Inpatient Medications: Current Inpatient Medications Medications (Trade) Dose Ordered Sig/Frankie Route Start Time Stop Time Status Last Admin Dose Admin Ondansetron HCl (Zofran Inj) 4 mg Q6H PRN IV 10/27/16 19:15 11/26/16 19:14 10/28/16 10:56 4 MG Hydralazine HCl (HydrALAZINE INJ) 10 mg Q6H PRN IV. 10/27/16 19:30 11/26/16 19:29 10/29/16 13:31 10 MG Miscellaneous Information (Consult Glycemic Management Pharmacy) 1 ea UD PRN N/A 10/27/16 21:19 11/26/16 21:18 Bupropion HCl (Wellbutrin-Sr Tab) 100 mg TID PO 10/27/16 21:00 11/26/16 20:59 11/03/16 13:47 100 MG Cholecalciferol (Vitamin D Tab) 1,000 inter.unit QAM PO 10/28/16 09:00 11/27/16 08:59 11/03/16 08:39 1,000 INTER.UNIT Ferrous Sulfate (Feosol Tab) 325 mg QAM PO 10/28/16 09:00 11/27/16 08:59 11/03/16 08:39 325 MG Gabapentin (Neurontin Tab) 600 mg TID PO 10/27/16 21:00 11/26/16 20:59 11/03/16 13:47 600 MG Levothyroxine Sodium (Synthroid Tab) 100 mcg DAILYBB PO 10/28/16 06:00 11/27/16 06:59 11/03/16 05:19 100 MCG Rosuvastatin Calcium (Crestor Tab) 20 mg DAILY PO 10/28/16 09:00 11/27/16 08:59 11/03/16 08:38 20 MG Sertraline HCl (Zoloft Tab) 200 mg QAM PO 10/28/16 09:00 11/27/16 08:59 11/03/16 08:38 200 MG Tamsulosin HCl (Flomax Cap) 0.4 mg DAILY PO 10/28/16 09:00 11/27/16 08:59 11/03/16 08:38 0.4 MG Insulin Aspart (novoLOG ASPART) SLIDING SCALE If C... ACHS SC 10/27/16 21:00 11/26/16 20:59 11/03/16 13:46 10 UNITS Glucose (Glucose 40% Gel) 15-30 GRAMS 15 GRAMS... UD PRN PO 10/27/16 20:00 11/26/16 19:59 Glucose (Glucose Chew Tab) 4-8 Tablets 4 Tabl... UD PRN PO 10/27/16 20:00 11/26/16 19:59 Dextrose (Dextrose 50% 50ML Syringe) 25-50ML OF 50% DW IV FOR... UD PRN IV 10/27/16 20:00 11/26/16 19:59 Glucagon (Glucagon Inj) 1 mg UD PRN SQ 10/27/16 20:00 11/26/16 19:59 Clonidine HCl (Catapres Tab) 0.1 mg Q4 PRN PO 10/28/16 13:45 11/27/16 13:44 10/29/16 12:30 0.1 MG Oxycodone HCl (Roxicodone Immediate Rel Tab) 5 mg Q4H PRN PO 10/30/16 16:45 11/13/16 16:44 11/03/16 16:11 5 MG Tramadol HCl (Ultram Tab) 50 mg Q8 PO 10/30/16 22:00 11/29/16 21:59 11/03/16 13:47 50 MG Acetaminophen (Tylenol Tab) 1,000 mg Q8H PO 10/30/16 22:00 11/29/16 21:59 11/03/16 13:48 1,000 MG Insulin Glargine (Lantus Solostar Pen) 25 unit BID SC 11/01/16 09:00 12/01/16 08:59 11/03/16 08:49 25 UNIT Lisinopril (Zestril Tab) 20 mg DAILY PO 11/02/16 10:00 12/02/16 09:59 11/02/16 09:46 20 MG Metoprolol Succinate (Toprol Xl Tab) 25 mg HS PO 11/02/16 23:30 12/02/16 23:29 11/03/16 00:30 25 MG Warfarin Sodium (Coumadin Tab) 5 mg DAILY@16 PO 11/03/16 16:00 12/03/16 15:59 11/03/16 16:11 5 MG Polyethylene (Miralax Powder Packet) 17 gm DAILY PO 11/03/16 10:15 12/03/16 10:14 Bisacodyl (Dulcolax Supp) 10 mg DAILY PRN ID 11/03/16 10:15 12/03/16 10:14
[2016-11-04 00:30] VITALS: BP 122/79; PULSE 97
[2016-11-04] MEDS: LEVOTHYROXINE 100 MCG TAB PO SCH (05:38)
[2016-11-04] MEDS: ACETAMINOPHEN 500 MG TAB PO SCH (05:38)
[2016-11-04] MEDS: TRAMADOL HCL 50 MG TAB PO SCH (05:39)
[2016-11-04 07:47] VITALS: BP 120/69; PULSE 73; TEMP 36.6; O2SAT 96
[2016-11-04 08:01] LABS: HEMATOCRIT 34.9 % (37-47); MEAN CELL VOLUME 91.6 fL (80-100); MEAN CORPUSCULAR HEMOGLOBIN 30.7 pg (25-34); MEAN CORPUSCULAR HGB CONC 33.5 g/dl (32-36); MEAN PLATELET VOLUME 9.1 fL (7.4-10.4); PLATELET COUNT 258 K/uL (130-400); RED BLOOD COUNT 3.81 M/uL (4.2-5.4); WHITE BLOOD COUNT 7.77 K/uL (4.8-10.8)
[2016-11-04 08:09] LABS: INR 1.6 (0.9-1.1); PROTHROMBIN TIME (PATIENT) 17.1 SECONDS (9.0-12.0)
[2016-11-04] MEDS: OXYCODONE HCL IR 5 MG TAB (IMMEDIATE RELEASE) PO PRN (08:37)
[2016-11-04] MEDS: TAMSULOSIN HCL 0.4 MG CAP PO SCH (08:38)
[2016-11-04] MEDS: ROSUVASTATIN CALCIUM 20 MG TAB PO SCH (08:38)
[2016-11-04] MEDS: FERROUS SULFATE 325 MG TAB PO SCH (08:38)
[2016-11-04] MEDS: POLYETHYLENE (MIRALAX) 17 GM PACK PO SCH (08:39)
[2016-11-04] MEDS: BuPROPion SR 100 MG TABCR PO SCH (08:39)
[2016-11-04] MEDS: GABAPENTIN 600 MG TAB PO SCH (08:39)
[2016-11-04] MEDS: SERTRALINE HCL 100 MG TAB PO SCH (08:40)
[2016-11-04] MEDS: LISINOPRIL 10 MG TAB PO SCH (08:40)
[2016-11-04] MEDS: CHOLECALCIFEROL 1000 INTER.UNIT TAB PO SCH (08:40)
[2016-11-04] MEDS: INSULIN GLARGINE SOLOSTAR 100 UNITS/ML 3 ML PEN SC SCH (08:54)
[2016-11-04] MEDS: INSULIN ASPART 100 UNITS/ML 3 ML PEN SC SCH (08:54)
[2016-11-04] MEDS ORDERED: TPRSR25 PO (12:43)
[2016-11-04] MEDS ORDERED: ACET-1138 PO (12:43)
[2016-11-04] MEDS ORDERED: MRLP17 PO (12:43)
[2016-11-04] MEDS ORDERED: ULT50X PO (12:43)
[2016-11-04] MEDS ORDERED: CMD5 PO (12:43)
--- NOTE | 2016-11-04 12:54 | Discharge Instructions ---
Discharge Instructions Date of Service Nov 04, 2016. Admission Reason for Admission: Wrist Fracture Discharge Discharge Diagnosis / Problem: 1. Syncope 2. L wrist fracture Discharge Goals Goal(s): Prevent Disease Progression Activity Recommendations Activity Limitations: per Instructions/Follow-up section . Instructions / Follow-Up Instructions / Follow-Up Please take all medications as instructed. OK to continue scheduled Tramadol and Tylenol until pain improves, then use only as needed. Please AVOID Reglan moving forward as this causes serious side effects of motion disorders and tremors and may contribute to falls. Your warfarin was increased to 5mg daily consistently on 11/03 as INR was not at goal 1.8-2.5 (temporary post-operative goal). Recheck INR on 11/06 to ensure INR in range. Follow-up with [facility] after rehab discharge to get back onto regular checks of INR level. Please ensure follow-up appointment with Dr. Hilliard (PCP) within one week of discharge from rehab to start working on better diabetes control, headache workup/treatment plan, syncope follow-up. Per Dr. Restrepo (Orthopedic Surgeon): 1. Keep wrist on ice and elevated to help with swelling and discomfort 2. Dr. Restrepo will see you in his office in two weeks from date of surgery for suture removal and placement of a hard cast. Office phone number is . It was a pleasure taking care of you! Call if you have any questions or problems. You can reach a [facility] hospitalist on duty at [facility] 24 hours a day by calling [phone]. Take care of yourself. Luana Carter DO [facility] Hospitalist Current Hospital Diet Patient's current hospital diet: AHA Diet (Heart Healthy), Diabetes Type 2 Diet Discharge Diet Recommended Diet: Diabetes Type 2 Diet Procedures Procedures Performed: (10/29) -Open Reduction Internal Fixation Left Distal Radius Fracture Pending Studies Studies pending at discharge: no Laboratory Results Hemoglobin A1c Test 10/28/16 03:00 Range/Units Estimated Average Glucose 229 mg/dl Hemoglobin A1c 9.6 H 4.5-5.6 % Medical Emergencies . Who to Call and When: Medical Emergencies: If at any time you feel your situation is an emergency, please call 911 immediately. . Non-Emergent Contact Non-Emergency issues call your: Primary Care Provider . . "Provider Documentation" section prepared by Luana Carter. VTE Core Measure Inpt VTE Proph given/why not?: Warfarin (Coumadin)
[2016-11-04 12:56] VITALS: BP 120/69; PULSE 73; TEMP 36.6; O2SAT 96
[2016-11-04] MEDS ORDERED: INSULIN GLARGINE SOLOSTAR 100 UNITS/ML 3 ML PEN SC SCH (21:00)
--- NOTE | 2016-11-10 08:44 | Discharge Summary ---
Discharge Summary Date of Service Nov 10, 2016. Discharge Summary Admission Date: Oct 27, 2016 at 20:17 Discharge Date: Nov 04, 2016 Discharge Disposition: Rehab Principal Diagnosis: Syncope s/p falls at home-multifactorial etiology including orthostatic hypotension, autonomic neuropathy 2/2 poorly controlled diabetes and extrapyramidal symptoms from Reglan use L wrist fracture s/p ORIF HTN DMII-complications including gastroparesis h/o PE in 2007-on lifelong Coumadin Anemia Hypothyroidism h/o TIA Procedures: TTE (10/28): * -- Conclusions -- * Aortic valve sclerosis mild, without significant aortic valvular stenosis. * There is moderate concentric left ventricular hypertrophy. * Ejection Fraction = 60-65%. * The left ventricular wall motion is normal. * Grade I diastolic dysfunction, (abnormal relaxation pattern). * The right ventricular systolic function is normal. * The left atrial size is normal. * Right atrial size is normal. No significant valvular pathology Vaccinations: None. Consultations: Neuro, Cardio, Ortho Pending Studies/Follow-Up: see instructions below Medication Reconciliation New Medications: Acetaminophen (Tylenol Extra Strength) 500 Mg Tab 1000 MG PO Q8H for 10 Days, #60 TAB Metoprolol Succinate (Metoprolol Succinate ER) 25 Mg Tabcr 25 MG PO HS for 30 Days, #30 MG Polyethylene (Miralax) 17 Gm Pow 17 GM PO DAILY for 30 Days, #30 Continue daily while on narcotics. Hold for any loose stools. Tramadol HCl (Tramadol HCl) 50 Mg Tab 50 MG PO Q8 for 10 Days, #30 TAB Warfarin Sod (Coumadin) 5 Mg Tab 5 MG PO DAILY@16 for 30 Days, #30 TAB management per [facility] Continued Medications: Bupropion HCl (Bupropion HCl Sr) 100 Mg Tabcr 100 MG PO TID Cholecalciferol (Vitamin D3) 1,000 Unit Tab 1000 INTER.UNIT PO QAM, TAB Ferrous Sulfate (Ferrous Sulfate) 325 Mg Tab 325 MG PO QAM Gabapentin (Neurontin) 100 Mg Cap 600 MG PO TID, CAP Insulin Aspart (Novolog) 100 Units/Ml Inj 16 UNITS SC AC PLUS SLIDING SCALE Insulin Glargine (Lantus) 100 Unit/Ml Inj 42 UNITS SQ BID, VIAL Levothyroxine Sodium (Synthroid) 100 Mcg Tab 100 MCG PO DAILY, TAB Lisinopril (Zestril) 10 Mg Tab 20 MG PO DAILY, TAB Metformin Hcl (Glucophage) 500 Mg Tab 500 MG PO BID, TAB Oxycodone Ir (Roxicodone Ir) 5 Mg Tab 1-2 TAB PO Q6H PRN for Severe Pain, #12 TAB Rosuvastatin Calcium (Crestor) 20 Mg Tab 20 MG PO DAILY, TAB Saline (Cloud Nasal [place]) 0.65 % Spr 1 SPRAY NEENA PRN for Nasal Congestion Sertraline Hcl (Zoloft) 100 Mg Tab 200 MG PO QAM, TAB Tamsulosin Hcl (Flomax) 0.4 Mg Cap 0.4 MG PO DAILY, CAP Discontinued Medications: Metoclopramide (Reglan) 10 Mg Tab 10 MG PO TIDM, TAB Metoprolol Tartrate (Lopressor) (Lopressor) 25 Mg Tab 12.5 MG PO BID, TAB Warfarin Sodium (Coumadin) 5 Mg Tab 2.5 MG PO 5XWK, TAB sunday, sunday, , sunday, sunday Warfarin Sodium (Coumadin) 5 Mg Tab 5 MG PO 2XWK, TAB sunday and sunday Admission Information HPI (per Admitting provider): 61 year old female who presents to the ER after a fall. Patient reports she was walking into her house when everything went black and she fell to the ground and hit her head. She reports she loss consciousness for a few seconds after falling and hitting her head. She reports she fell onto her left arm and had left lower arm pain after the fall. Patient reports she has been falling frequently over the past month. She reports some of the time she is passing out. She also notes increasing shortness of breath on exertion. She denies chest pain. She was seen by her PCP for these frequent falls and was told she may have autonomic neuropathy from poorly controlled diabetes. Patient denies abdominal pain, nausea, vomiting, or diarrhea. No fever or chills. She denies urinary symptoms. In the ER, patient is found to have transverse fractures of left distal radius and most likely ulna with mild dorsal displacement. EKG is unchanged from prior and initial trop is negative. BP was elevated at 205/115. Physical Exam (per Admitting): General Appearance: no apparent distress Head: + evidence of trama (large hematoma and ecchymosis over right frontal scalp) Eyes: normal inspection ENT: hearing grossly normal Neck: supple, no JVD Respiratory/Chest: lungs clear, normal breath sounds, no respiratory distress Cardiovascular: regular rate, rhythm, no edema, normal peripheral pulses Abdomen/GI: normal bowel sounds, non tender, soft Extremities/Musculoskelatal: + pertinent finding (LUE in splint, CSM checks intact to LUE) Neurologic/Psych: no motor/sensory deficits, alert, normal mood/affect, oriented x 3 Skin: normal color, warm/dry Hospital Course 61 yoF s/p syncopal event with fall 2/2 resulting in L wrist fracture 1. Syncope with frequent falls at home/orthostatic hypotension: workup to date including MRI brain, carotid u/s, TTE and cardiac monitoring is unremarkable for an obvious cause for her recurrent syncope. EEG also normal. Orthostatics have been positive post-operatively so no need for outpatient tilt at this time. Cardiology and Neurology are both consulted. Working hypothesis is that she may be suffering from autonomic dysfunction from diabetic neuropathy. In addition to that, she is in a post-op state with persistent pain that is now better controlled, and she has had significant shaking and tremors from Reglan use which was stopped. Overall multiple contributing factors including post-op state, deconditioning, mild anemia, extrapyramidal symptoms from reglan use, autonomic dysfunction from diabetic neuropathy. Dariusz was not helpful today. She will need optimization of her health from many angles starting with better control of her diabetes, working closely with Dr. Hilliard (PCP) to get ahold of these headaches , staying off the Reglan and using an alternative agent for gastroparesis as needed (she is fine so far), and making lifestyle changes such as weight loss through exercise (safely) and eating well. All of this was discussed with her as she is currently very disabled in the state of things. Lisinopril was bumped back to home dose, and after metoprolol was stopped her HR went up >100 consistently. Unsure how much this improved lightheadedness, however, switched her to Toprol 25 at night to avoid possible lightheadedness in the daytime. Agreeable for rehab today. 2. Tremors-improved off Reglan as above 3. L wrist fracture-management per Ortho. Cont pain control. Ordered scheduled Tramadol and Tylenol q8hrs which is working well for her pain. Cont using oxy IR for breakthrough as needed. PT/OT daily 4. HTN-slightly elevated likely 2/2 pain; pain control as above, cont lisinopril and stop Lopressor per changes above. 5. DMII-poorly controlled diabetic with A1C 9.6 and neuropathy/gastroparesis, cont Lantus and ISS as inpatient; apprec pharmacy assist with inpatient goals 6. 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 Increased dose to 5mg daily as she is still subtherapeutic. New goal INR is 1.8-2.5 in post-op period. Trending daily INR. 7. Anemia-multifactorial with acute blood loss anemia 2/2 recent surgery, daily phlebotomy and dilution from IVF. No indication for transfusion at this time. 8. Hypothyroidism-cont levothyroxine at home dose 9. h/o TIA 10. constipation-ordered MOM enema today On day of discharge post-op pain was controlled, she was afebrile and hemodynamically stable and oxygenating well on room air. She was ambulating in the hallway with assistance (walker and attendant) and was discharged to rehab in stable condition. Close follow-up with PCP was recommended with frequent visits if needed to get a better handle on her diabetes. Total time spent on discharge = 60 mins This includes examination of the patient, discharge planning, medication reconciliation, and communication with other providers. Discharge Instructions Discharge Instructions Date of Service Nov 04, 2016. Admission Reason for Admission: Wrist Fracture Discharge Discharge Diagnosis / Problem: 1. Syncope 2. L wrist fracture Discharge Goals Goal(s): Prevent Disease Progression Activity Recommendations Activity Limitations: per Instructions/Follow-up section . Instructions / Follow-Up Instructions / Follow-Up Please take all medications as instructed. OK to continue scheduled Tramadol and Tylenol until pain improves, then use only as needed. Please AVOID Reglan moving forward as this causes serious side effects of motion disorders and tremors and may contribute to falls. Your warfarin was increased to 5mg daily consistently on 11/03 as INR was not at goal 1.8-2.5 (temporary post-operative goal). Recheck INR on 11/06 to ensure INR in range. Follow-up with [facility] after rehab discharge to get back onto regular checks of INR level. Please ensure follow-up appointment with Dr. Hilliard (PCP) within one week of discharge from rehab to start working on better diabetes control, headache workup/treatment plan, syncope follow-up. Per Dr. Restrepo (Orthopedic Surgeon): 1. Keep wrist on ice and elevated to help with swelling and discomfort 2. Dr. Restrepo will see you in his office in two weeks from date of surgery for suture removal and placement of a hard cast. Office phone number is . It was a pleasure taking care of you! Call if you have any questions or problems. You can reach a [facility] hospitalist on duty at [facility] 24 hours a day by calling [phone]. Take care of yourself. DO [facility] Hospital[facility] Current Hospital Diet Patient's current hospital diet: AHA Diet (Heart Healthy), Diabetes Type 2 Diet Discharge Diet Recommended Diet: Diabetes Type 2 Diet Procedures Procedures Performed: (10/29) -Open Reduction Internal Fixation Left Distal Radius Fracture Pending Studies Studies pending at discharge: no Laboratory Results Hemoglobin A1c Test 10/28/16 03:00 Range/Units Estimated Average Glucose 229 mg/dl Hemoglobin A1c 9.6 H 4.5-5.6 % Medical Emergencies . Who to Call and When: Medical Emergencies: If at any time you feel your situation is an emergency, please call 911 immediately. . Non-Emergent Contact Non-Emergency issues call your: Primary Care Provider . . "Provider Documentation" section prepared by Luana Carter. VTE Core Measure Inpt VTE Proph given/why not?: Warfarin (Coumadin) <Electronically signed by Luana Carter DO> Signed: 11/04/16 1466 Signed: The status of this report is Signed * If report status is Draft, the document has not been finalized by the responsible provider. Additional Copies To Adria Hilliard M.D.; Aly Restrepo, DO
[2017-04-19] MEDS ORDERED: METO25TA3 PO (14:20)
[2017-04-19] MEDS ORDERED: NRN800 PO (14:20)
[2017-04-19] MEDS ORDERED: LSN20 PO (14:20)
== END 2016-11-04 13:19 | DRG 512 ==
LOC: CANRESERV → ENRESERVTM → ENRESERVDT → C.EDB 14:24 → C.2T 20:17 → EDBEDREQSVC 20:18 → C.MSN 10-29 14:36
PROVIDERS: ADMIT Internal Medicine; ATTEND Hospitalist
PROC: 0PSJ04Z Reposition Left Radius with Internal Fixation Device, Open Approach (ICD-10-PCS; principal; 2016-10-29 08:00)
DX: S52.502A Unspecified fracture of the lower end of left radius, initial encounter for closed fracture (principal); E03.9 Hypothyroidism, unspecified; F41.9 Anxiety disorder, unspecified; G56.03 Carpal tunnel syndrome, bilateral upper limbs; Z86.718 Personal history of other venous thrombosis and embolism; F32.9 Major depressive disorder, single episode, unspecified; E11.43 Type 2 diabetes mellitus with diabetic autonomic (poly)neuropathy; K31.84 Gastroparesis; M16.12 Unilateral primary osteoarthritis, left hip; M17.0 Bilateral primary osteoarthritis of knee; I10 Essential (primary) hypertension; E78.5 Hyperlipidemia, unspecified; E66.9 Obesity, unspecified; Z86.73 Personal history of transient ischemic attack (TIA), and cerebral infarction without residual deficits; Z80.1 Family history of malignant neoplasm of trachea, bronchus and lung; Z80.0 Family history of malignant neoplasm of digestive organs; Z79.4 Long term (current) use of insulin; E55.9 Vitamin D deficiency, unspecified; I95.1 Orthostatic hypotension; Z86.711 Personal history of pulmonary embolism; Z96.653 Presence of artificial knee joint, bilateral; W19.XXXA Unspecified fall, initial encounter

== ENCOUNTER 2017-02-26 19:30 | Emergency (ER) | payer BC ==
[~2017-02-26] VITALS: Ht 157.5 cm; Wt 83.1 kg
[~2017-02-26 19:30] MED LIST changes: +ACET-1138 PO; +CMD5 PO; +GABA-112 PO; -GABA1CAP5 PO; -METO-157 PO; -METO25TA56 PO; +MRLP17 PO; -OXYC-57 PO; +OXYC1TAB3 PO; +TPRSR25 PO; +ULT50X PO; -WARF5TAB90 PO
[2017-02-26 19:34] VITALS: Ht 157.5 cm; Wt 83.1 kg
[2017-02-26] MEDS ORDERED: PROPARACAINE HCL 0.5% OP SOLN 15 ML BTL OP STA (19:51)
[2017-02-26] MEDS ORDERED: WARF5TAB7 PO ×2 (20:20)
[2017-02-26] MEDS ORDERED: POLY335019 PO (20:22)
[2017-02-26] MEDS ORDERED: OXYCODONE HCL IR 5 MG TAB (IMMEDIATE RELEASE) PO STA (21:17)
[2017-02-26] MEDS ORDERED: ACYCLOVIR 400 MG TAB PO SCH (21:30)
[2017-02-26] MEDS ORDERED: ACYC-251 PO (21:36)
[2017-02-26] MEDS ORDERED: OXYC1TAB3 PO (21:40)
[2017-02-26 21:55] VITALS: BP 155/88; PULSE 77; TEMP 37.3; O2SAT 96
--- NOTE | 2017-02-27 00:54 | EMERGENCY ROOM VISIT NOTE ---
History Report prepared by Jonathanibmadhuri: Ginny Hyatt Under the Supervision of: Dr. Jose Martin Bowen D.O. First contact with patient: 19:38 Chief Complaint: SKIN PROBLEM Stated Complaint: SHINGLES, LEFT EYE SWOLLEN History of Present Illness The patient is a 62 year old female who presents to the Emergency Room with complaints of a worsening shingles like rash near her right eye. The rash started 3 days ago. She rates her discomfort as an 8/10. Today she called her doctor's office, but was unable to get an appointment so she was referred to [facility]. At the [facility] clinic, the patient was referred to the ED for further evaluation. She notes the rash is red and became swollen yesterday. Some areas appear to be filled with fluid. The patient states the vision in her right eye appears to be "blurry". She also complains of a headache. Pt denies fevers, chest pain, shortness of breath, nausea, vomiting, diarrhea, pain with urination, and melena. Source of History: patient Onset: 3 days [employer]IGITAL [employer]IST Position: eye (right) Symptom Intensity: 8/10 Timing: worsening Associated Symptoms: + headache, No fevers, No chest pain, No SOB, No nausea , No vomiting, No melena, No diarrhea, No urinary symptoms Review of Systems See HPI for pertinent positives & negatives. A total of 10 systems reviewed and were otherwise negative. Past Medical & Surgical Medical Problems: (1) Adhesion of abdominal wall (2) Adult hypothyroidism (3) Anxiety (4) Calculus of kidney and ureter (5) Carpal tunnel syndrome on both sides (6) Deep venous thrombosis (7) Depression (8) Diabetic gastroparesis (9) Diabetic neuropathy (10) Diverticulosis of colon without diverticulitis (11) DJD (degenerative joint disease) (12) DM type 2 (diabetes mellitus, type 2) (13) Dyslipidemia (14) Essential hypertension (15) HTN (hypertension) (16) Obesity (17) Pulmonary embolism (18) Transient ischemic attack (19) Vertebral fracture (20) Vertigo (21) Vitamin D deficiency Surgical Problems: (1) Bilateral tubal ligation (2) H/O knee surgery (3) Hysterectomy (4) Oophorectomy (5) S/p breast lesion excision (6) S/P dilation and curettage (7) S/P laparoscopic cholecystectomy (8) S/P left knee arthroscopy (9) S/p lysis of adhesions (10) S/p small bowel repair Family History Cancer (lung and liver) FATHER FH: Alzheimers disease MOTHER Social History Smoking Status: Never Smoker Alcohol Use: none Marital Status: Housing Status: lives with family Current/Historical Medications Scheduled Acyclovir (Zovirax), 800 MG PO 5 TIMES DAILY Bupropion HCl (Bupropion HCl Sr), 100 MG PO TID Cholecalciferol (Vitamin D3), 1,000 INTER.UNIT PO QAM Ferrous Sulfate (Ferrous Sulfate), 325 MG PO QAM Gabapentin (Neurontin), 600 MG PO TID Insulin Aspart (Novolog), 16 UNITS SC AC Insulin Glargine (Lantus), 42 UNITS SQ BID Levothyroxine Sodium (Synthroid), 100 MCG PO DAILY Lisinopril (Zestril), 20 MG PO DAILY Metformin Hcl (Glucophage), 500 MG PO BID Metoprolol Succinate (Metoprolol Succinate ER), 25 MG PO HS Rosuvastatin Calcium (Crestor), 20 MG PO DAILY Sertraline Hcl (Zoloft), 200 MG PO QAM Tamsulosin Hcl (Flomax), 0.4 MG PO DAILY Warfarin Sod (Jantoven), 5 MG PO 2XWK Warfarin Sod (Jantoven), 2.5 MG PO 5XD Scheduled PRN Oxycodone Immediate Rel Tab (Roxicodone Ir), 5 MG PO Q6H PRN for Pain Polyethylene Glycol 3350 (Miralax), 17 GM PO DAILY PRN for Constipation Saline ([place] Nasal [place]), 1 SPRAY NEENA for Nasal Congestion Allergies Coded Allergies: Adhesives (Verified Allergy, Unknown, RASH, 09/28/16) Iodinated Diagnostic Agents (Verified Allergy, Unknown, burning and aching in veins, 09/28/16) Latex1 -Allergic Contact Dermititis (Verified Allergy, Unknown, 09/28/16) Penicillins (Verified Allergy, Unknown, n/v, rash, 09/28/16) Ketorolac (Verified Adverse Reaction, Mild, ITCHING., 09/28/16) Tromethamine (Verified Adverse Reaction, Mild, ITCHING., 09/28/16) Aspirin (Verified Adverse Reaction, Unknown, currently with gastric ulcer , per pt, 09/28/16) Physical Exam Vital Signs Date Time Temp Pulse Resp B/P (MAP) Pulse Ox O2 Delivery O2 Flow Rate FiO2 02/26/17 21:55 37.3 77 16 155/88 96 02/26/17 21:40 77 16 155/88 96 Room Air 02/26/17 20:42 75 20 155/76 95 Room Air 02/26/17 19:34 37.3 87 18 159/73 91 Room Air Physical Exam GENERAL: Patient is sitting up in bed, alert, well appearing, well nourished, no distress, non-toxic EYE EXAM: One lesion along right medial aspect of nose, one lesion near medial portion of eyebrow and one lesion near the lateral portion of the right eyebrow which are scabbed with mild erythema surrounding. Swelling around the right eyelid, conjunctiva clear. Slit lamp of anterior chamber is deep/quiet. No cell/ flares. IOP in right eye is 15, IOP in left eye is 17. No corneal abrasion or lesions appreciated under fluorescence. OROPHARYNX: no exudate, no erythema, lips, buccal mucosa, and tongue normal and mucous membranes are moist NECK: supple, no nuchal rigidity, no adenopathy, non-tender LUNGS: Clear to auscultation. Normal chest wall mechanics HEART: no murmurs, S1 normal and S2 normal ABDOMEN: abdomen soft, non-tender, normo-active bowel sounds, no masses, no rebound or guarding. BACK: Back is symmetrical on inspection and there is no deformity, no midline tenderness, no CVA tenderness. SKIN: no rashes and no bruising UPPER EXTREMITIES: upper extremities are grossly normal. LOWER EXTREMITIES: No pitting edema. NEURO EXAM: Normal sensorium, cranial nerves II-XII grossly intact, normal speech, no gross weakness of arms, no gross weakness of legs. Medical Decision & Procedures Medications Administered Medications (Trade) Dose Ordered Sig/Frankie Route Start Time Stop Time Status Last Admin Dose Admin Acyclovir (Zovirax Tab) 800 mg NOW PO 02/26/17 21:30 02/26/17 22:54 DC 02/26/17 21:50 800 MG Oxycodone HCl (Roxicodone Immediate Rel Tab) 5 mg NOW STAT PO 02/26/17 21:17 02/26/17 21:19 DC 02/26/17 21:50 5 MG ED Course ED COURSE: Vital signs were reviewed and showed the patient is hypertensive. The patients medical record was reviewed The above diagnostic studies were performed and reviewed. ED treatments and interventions as stated above. 1950: Proparacaine HCl 2 drops OP. 1944: The patient was evaluated in room A10. A complete history and physical examination was performed. 2116: Oxycodone HCl 5 mg PO. 2129: Acyclovir 800 mg PO. 2040: I discussed the patients case with Dr. Oh, Ophthalmology. He will arrange for follow up in the office tomorrow. 2143: Upon reevaluation, the patient is feeling much better. I discussed my findings with the patient and she understands and agrees with the treatment plan. Based on the patients age, coexisting illnesses, exam and lab findings the decision to treat as an outpatient was made. The patient remained stable while under my care. The patient appeared well at the time of discharge. Medical Decision Medication Reconciliation: I attest that I have personally reviewed the patient' s current medication list. Blood pressure screening: Patient was found to have an elevated blood pressure and was referred to their primary doctor for recheck and further treatment. Etiologies such as contact dermatitis, viral exanthem, urticaria, allergic reaction, Carias-David syndrome, toxic epidermal necrolysis, erythema multiforme, cellulitis, scabies, HSV, varicella, zoster, eczema, staph scalded skin syndrome, fungal infection, as well as others were entertained. Patient is a 62-year-old female who presents the ER with zoster on the right side of her face. She has swelling of her right upper eyelid. IOP 15. Slit lamp exam was benign. No lesions appreciated. Discussed with ophthalmology. They will evaluate her tomorrow in the office. Patient was given acyclovir and discharged with OxyIR. PDMP reviewed. No signs of meningitis or encephalitis on exam. With there being no involvement of the eye at this time I felt it was reasonable to discharge her and her follow-up with ophthalmology tomorrow. Discussed with Pt concerning signs and symptoms to watch out for. Pt was instructed to follow up with their PCP and discussed with the patient their option to return to the ED at anytime for persistent or worsening symptoms. The appropriate anticipatory guidance and out-patient management, including indications for return to the emergency department, were explained at length to the patient and understood. [place] Drug Monitoring Program Search Results: patient reviewed within database, no issues identified Consults Time Called: 2139 Consulting Physician: Dr. Oh, Ophthalmology Returned Call: 2143 I discussed the patients case with Dr. Oh, Ophthalmology. He will arrange for follow up in the office tomorrow. Impression Primary Impression: Zoster Scribe Attestation The scribe's documentation has been prepared under my direction and personally reviewed by me in its entirety. I confirm that the note above accurately reflects all work, treatment, procedures, and medical decision making performed by me. Departure Information Dispostion Home / Self-Care Prescriptions Oxycodone Immediate Rel Tab (ROXICODONE IR) 5 Mg Tab 5 MG PO Q6H Y for Pain, #8 TAB Prov: Jose Martin Bowen, DO 02/26/17 Acyclovir (Zovirax) 800 Mg Tab 800 MG PO 5 TIMES DAILY for 7 Days, TAB Prov: Jose Martin Bowen, DO 02/26/17 Referrals Adria Hilliard M.D. (PCP) Patient Instructions ED Shingles, Herpes Eye Disease Tx, My [facility] Additional Instructions Please follow up with ophthalmology with in the next 24 hours. Any worsening of your symptoms, please return to the ED immediately. This includes worsening eye pain, change of vision, fevers greater than 100.4, or any other concerning signs or symptoms from your standpoint. Please follow up with ophthalmology. There phone number is [phone]. This will likely be with Dr. Brown Please call after 8 AM in the morning tomorrow and they will get you a scheduled appointment tomorrow. Please follow up with your primary care doctor within 24-48 hours. You were given medications during this visit that will inhibit your ability to drive, operate machinery and work. Please do NOT drive, operate machinery or work for the next 12hrs. You were also given a prescription for a narcotic/Oxy IR. While taking this medication you should also not drive, operate machinery and or work. Problem Qualifiers Primary Impression: Zoster Herpes zoster complications: without complications Qualified Codes: B02.9 - Zoster without complications
[2017-04-19] MEDS ORDERED: METO25TA3 PO (14:20)
[2017-04-19] MEDS ORDERED: NRN800 PO (14:20)
[2017-04-19] MEDS ORDERED: LSN20 PO (14:20)
== END 2017-02-26 22:02 | disposition home or self-care (01) ==
LOC: C.EDB 19:31 → C.EDA 22:02
DX: B02.9 Zoster without complications (principal); E03.9 Hypothyroidism, unspecified; F41.9 Anxiety disorder, unspecified; Z87.442 Personal history of urinary calculi; Z86.718 Personal history of other venous thrombosis and embolism; F32.9 Major depressive disorder, single episode, unspecified; E11.43 Type 2 diabetes mellitus with diabetic autonomic (poly)neuropathy; E78.5 Hyperlipidemia, unspecified; E66.9 Obesity, unspecified; I10 Essential (primary) hypertension; Z86.711 Personal history of pulmonary embolism; Z86.73 Personal history of transient ischemic attack (TIA), and cerebral infarction without residual deficits; E55.9 Vitamin D deficiency, unspecified; Z80.9 Family history of malignant neoplasm, unspecified; Z79.4 Long term (current) use of insulin; Z79.01 Long term (current) use of anticoagulants; Z79.899 Other long term (current) drug therapy

== ENCOUNTER 2017-03-28 15:47 | Emergency (ER) | payer BC ==
[~2017-03-28] VITALS: Ht 160 cm; Wt 81.0 kg
[~2017-03-28 15:47] MED LIST changes: -ACET-1138 PO; -CMD5 PO; -MRLP17 PO; +POLY335019 PO; -ULT50X PO; +WARF5TAB7 PO
[2017-03-28 16:06] VITALS: TEMP 37; Ht 160 cm; Wt 81.0 kg
--- NOTE | 2017-03-28 18:18 | DIAGNOSTIC IMAGING REPORT ---
HEAD WITHOUT CONTRAST (CT) CT DOSE: 537.48 mGy.cm HISTORY: Mental status change eval for bleed TECHNIQUE: Multiaxial CT images of the head were performed without the use of intravenous contrast. A dose lowering technique was utilized adhering to the principles of ALARA. Comparison: 10/27/2016 Findings: The paranasal sinuses and mastoid air cells are clear. The calvarium and skull base are intact. The ventricles and sulci are within normal limits. There is no mass, hematoma, midline shift, or acute infarct. Impression: No acute intracranial abnormality. The above report was generated using voice recognition software. It may contain grammatical, syntax or spelling errors. Electronically signed by: Adria Houston M.D. 03/28/2017 6:17 PM Dictated Date/Time: 03/28/2017 6:12 PM
--- NOTE | 2017-03-28 18:19 | DIAGNOSTIC IMAGING REPORT ---
PELVIS 1 OR 2 VIEW ROUTINE CLINICAL HISTORY: eval for fx trauma COMPARISON: 10/17/2016 DISCUSSION: The bones and joint spaces appear intact. There is no evidence of fracture, dislocation or bony disease. There is no evidence for soft tissue swelling. IMPRESSION: Negative study. The above report was generated using voice recognition software. It may contain grammatical, syntax or spelling errors. Electronically signed by: Adria Houston M.D. 03/28/2017 6:18 PM Dictated Date/Time: 03/28/2017 6:17 PM
--- NOTE | 2017-03-28 18:25 | DIAGNOSTIC IMAGING REPORT ---
LUMBAR SPINE WITHOUT CT DOSE: 823.08 mGy.cm HISTORY: Trauma eval for fx TECHNIQUE: Multiaxial CT images of the lumbar spine were performed and reformatted in the sagittal and coronal plane without the use of contrast. A dose lowering technique was utilized adhering to the principles of ALARA. COMPARISON: 10/09/2016 FINDINGS: Old mild compression deformity superior endplate L1 L3 and L4. This is unchanged from the prior exam. There are no new or interval compression deformities. Mild degenerative changes of the posterior elements. Spinous processes as well as transverse elements appear intact. There is no evidence for an acute bony abnormality. Bony mineralization is diminished throughout. IMPRESSION: 1. No acute fractures of the lumbar spine. 2. Pre-existing mild compression deformities of L1, L3, and L4 which are unchanged.. 3. No evidence for new interval or progressive process. 4. Pre-existing osteopenia The above report was generated using voice recognition software. It may contain grammatical, syntax or spelling errors. Electronically signed by: Adria Houston M.D. 03/28/2017 6:23 PM Dictated Date/Time: 03/28/2017 6:19 PM
[2017-03-28 18:52] VITALS: BP 138/78; PULSE 99; O2SAT 99
--- NOTE | 2017-03-29 00:27 | EMERGENCY ROOM VISIT NOTE ---
History Report prepared by Suyapa: Sally Vaughn Under the Supervision of: Dr. Luke Gardner M.D. First contact with patient: 17:12 Chief Complaint: BACK PAIN Stated Complaint: L SIDE,LOWER BACK PAIN History of Present Illness The patient is a 62 year old female who presents to the Emergency Room with complaints of persistent back pain starting 5 days ago. The patient fell in her driveway onto her left side 5 days ago and injured her left leg and back. She currently rates her discomfort as a 10/10 in severity. She saw her PCP who started her on oxycodone which has been helping. She has not taken any today because she did not want to get addicted. She was sent to the ED by her PCP for X-rays. She has some left hip pain. She felt a lump on her left back. She did hit her head. She is able to walk. She denies any rib pain, hematuria, abdominal pain, fever, vomiting, chest pain, or SOB. She has been having intermittent weakness in her legs and urinary incontinence over the past year. She does get back pain which goes down her legs every few weeks for the past year. She has not had any physical therapy. She notes that she has been getting headaches starting before her fall. She is still having shingles pain around her eye for which she is following with ophthalmology. Source of History: patient Onset: 5 days ago Position: back Symptom Intensity: 10/10 Quality: other (pain) Timing: other (persistent) Associated Symptoms: No fevers, No chest pain, No SOB, No vomiting, No abdominal pain Note: Pt reports left hip pain, lump left back, head injury. Pt denies rib pain, hematuria. Review of Systems See HPI for pertinent positives & negatives. A total of 10 systems reviewed and were otherwise negative. Past Medical & Surgical Medical Problems: (1) Adhesion of abdominal wall (2) Adult hypothyroidism (3) Anxiety (4) Calculus of kidney and ureter (5) Carpal tunnel syndrome on both sides (6) Deep venous thrombosis (7) Depression (8) Diabetic gastroparesis (9) Diabetic neuropathy (10) Diverticulosis of colon without diverticulitis (11) DJD (degenerative joint disease) (12) DM type 2 (diabetes mellitus, type 2) (13) Dyslipidemia (14) Essential hypertension (15) HTN (hypertension) (16) Obesity (17) Pulmonary embolism (18) Transient ischemic attack (19) Vertebral fracture (20) Vertigo (21) Vitamin D deficiency Surgical Problems: (1) Bilateral tubal ligation (2) H/O knee surgery (3) Hysterectomy (4) Oophorectomy (5) S/p breast lesion excision (6) S/P dilation and curettage (7) S/P laparoscopic cholecystectomy (8) S/P left knee arthroscopy (9) S/p lysis of adhesions (10) S/p small bowel repair Family History Cancer (lung and liver) FATHER FH: Alzheimers disease MOTHER Social History Smoking Status: Never Smoker Alcohol Use: none Marital Status: Housing Status: lives with family Current/Historical Medications Scheduled Bupropion HCl (Bupropion HCl Sr), 100 MG PO TID Cholecalciferol (Vitamin D3), 1,000 INTER.UNIT PO QAM Ferrous Sulfate (Ferrous Sulfate), 325 MG PO QAM Gabapentin (Neurontin), 600 MG PO TID Insulin Aspart (Novolog), 16 UNITS SC AC Insulin Glargine (Lantus), 42 UNITS SQ BID Levothyroxine Sodium (Synthroid), 100 MCG PO DAILY Lisinopril (Zestril), 20 MG PO DAILY Metformin Hcl (Glucophage), 500 MG PO BID Metoprolol Succinate (Metoprolol Succinate ER), 25 MG PO HS Rosuvastatin Calcium (Crestor), 20 MG PO DAILY Sertraline Hcl (Zoloft), 200 MG PO QAM Tamsulosin Hcl (Flomax), 0.4 MG PO DAILY Warfarin Sod (Jantoven), 5 MG PO 2XWK Warfarin Sod (Jantoven), 2.5 MG PO 5XD Scheduled PRN Oxycodone Immediate Rel Tab (Roxicodone Ir), 5 MG PO Q6H PRN for Pain Polyethylene Glycol 3350 (Miralax), 17 GM PO DAILY PRN for Constipation Saline ([place] Nasal Turner), 1 SPRAY NEENA for Nasal Congestion Allergies Coded Allergies: Adhesives (Verified Allergy, Unknown, RASH, 03/28/17) Iodinated Diagnostic Agents (Verified Allergy, Unknown, burning and aching in veins, 03/28/17) Latex1 -Allergic Contact Dermititis (Verified Allergy, Unknown, 03/28/17) Penicillins (Verified Allergy, Unknown, n/v, rash, 03/28/17) Ketorolac (Verified Adverse Reaction, Mild, ITCHING., 03/28/17) Tromethamine (Verified Adverse Reaction, Mild, ITCHING., 03/28/17) Aspirin (Verified Adverse Reaction, Unknown, currently with gastric ulcer , per pt, 03/28/17) Physical Exam Vital Signs Date Time Temp Pulse Resp B/P (MAP) Pulse Ox O2 Delivery O2 Flow Rate FiO2 03/28/17 18:52 99 20 138/78 99 03/28/17 18:16 79 20 152/87 96 Room Air 03/28/17 16:06 37.0 79 18 161/83 96 Room Air Physical Exam Constitutional: Vital signs reviewed. Eyes: Pupils are equal round reactive to light. Conjunctiva are noninjected. ENT: Pharynx is clear without erythema or exudate. Mucous membranes are moist. Neck supple without meningeal signs. Healing zoster rash to the right forehead. Respiratory: Clear to auscultation bilaterally. Breath sounds are equal bilaterally. Cardiovascular: Regular rate and rhythm. No rubs or gallops. GI: Soft, nondistended and nontender. Bowel sounds are present. Musculoskeletal: Mild mid lumbar spine tenderness without step off, no thoracic spine or rib tenderness, tenderness to the left posterior superior iliac crest, no hip tenderness to the left hip, old bruising to the left oyst without bony tenderness. Integumentary: No cyanosis. Neurological: The patient is awake and alert. No focal deficits. Normal strength and sensation in the lower extremities. Psychiatric: Normal affect. Medical Decision & Procedures ER Provider Diagnostic Interpretation: X-ray results as stated below per interpretation by me and the radiologist. Radiology results as stated below per my review and the radiologist's interpretation: PELVIS 1 OR 2 VIEW ROUTINE CLINICAL HISTORY: eval for fx trauma COMPARISON: 10/17/2016 DISCUSSION: The bones and joint spaces appear intact. There is no evidence of fracture, dislocation or bony disease. There is no evidence for soft tissue swelling. IMPRESSION: Negative study. The above report was generated using voice recognition software. It may contain grammatical, syntax or spelling errors. Electronically signed by: Adria Houston M.D. 03/28/2017 6:18 PM Dictated Date/Time: 03/28/2017 6:17 PM LUMBAR SPINE WITHOUT CT DOSE: 823.08 mGy.cm HISTORY: Trauma eval for fx TECHNIQUE: Multiaxial CT images of the lumbar spine were performed and reformatted in the sagittal and coronal plane without the use of contrast. A dose lowering technique was utilized adhering to the principles of ALARA. COMPARISON: 10/09/2016 FINDINGS: Old mild compression deformity superior endplate L1 L3 and L4. This is unchanged from the prior exam. There are no new or interval compression deformities. Mild degenerative changes of the posterior elements. Spinous processes as well as transverse elements appear intact. There is no evidence for an acute bony abnormality. Bony mineralization is diminished throughout. IMPRESSION: 1. No acute fractures of the lumbar spine. 2. Pre-existing mild compression deformities of L1, L3, and L4 which are unchanged.. 3. No evidence for new interval or progressive process. 4. Pre-existing osteopenia The above report was generated using voice recognition software. It may contain grammatical, syntax or spelling errors. Electronically signed by: Adria Houston M.D. 03/28/2017 6:23 PM Dictated Date/Time: 03/28/2017 6:19 PM HEAD WITHOUT CONTRAST (CT) CT DOSE: 537.48 mGy.cm HISTORY: Mental status change eval for bleed TECHNIQUE: Multiaxial CT images of the head were performed without the use of intravenous contrast. A dose lowering technique was utilized adhering to the principles of ALARA. Comparison: 10/27/2016 Findings: The paranasal sinuses and mastoid air cells are clear. The calvarium and skull base are intact. The ventricles and sulci are within normal limits. There is no mass, hematoma, midline shift, or acute infarct. Impression: No acute intracranial abnormality. The above report was generated using voice recognition software. It may contain grammatical, syntax or spelling errors. Electronically signed by: Adria Houston M.D. 03/28/2017 6:17 PM Dictated Date/Time: 03/28/2017 6:12 PM ED Course 1723: The patient was evaluated in room B6. A complete history and physical exam was performed. 1836: Upon reevaluation, the patient appeared to have improvement of her symptoms. I discussed tonight's findings with her. She verbalized agreement of the treatment plan. She was discharged home. Medical Decision This is a 62-year-old female who presents with injuries after fall and headache. Differential diagnosis includes compression fracture, strain, pelvic fracture, contusion, intracranial hemorrhage, post herpetic neuralgia. I did perform a limited focused review of portions of the patient's old chart on the electronic medical record. The patient was seen in February for zoster. She had shingles pain to her right eye and was placed on acyclovir and oxy IR and discharged to follow up with Dr. Oh of ophthalmology. I did evaluate the patient as noted above. The patient is presenting with injuries after a fall. She fell several days ago. She complains of low back pain. She is neurologically intact, evaluation. She does state she has a history of intermittent incontinence of her urine but states that it has been going on for a year. No recent change or worsening. She also complains of a headache but stated that the headache occurred prior to her fall. She did recently get diagnosed with zoster and was treated. She likely has some type of post herpetic neuralgia. I did order and personally review the patient's pelvic x-ray as described above. There is no evidence of acute fracture. I did order a CT of the head and lumbar spine. I did review the images myself as well as the radiology report as described above. 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 No acute fracture. No intracranial hemorrhage.I did discuss the test results with the patient. I did recommend close follow up with her doctor for further care and evaluation. She was discharged in good condition. Head Trauma GCS Score: 15 Medication Reconcilliation Current Medication List: was personally reviewed by me Blood Pressure Screening Patient's blood pressure: Elevated blood pressure Blood pressure disposition: Referred to PCP Impression Primary Impression: Back pain Additional Impressions: Injury of left lower leg Acute headache Fall Scribe Attestation The scribe's documentation has been prepared under my direct and personally reviewed by me in its entirety. I confirm that the note above accurately reflects all work, treatment, procedures, and medical decision making performed by me. Departure Information Dispostion Home / Self-Care Referrals Adria Hilliard M.D. (PCP) Forms HOME CARE DOCUMENTATION FORM, IMPORTANT VISIT INFORMATION Patient Instructions Back Pain - [facility], Headache Pain, My [facility] Additional Instructions You have been examined and treated today on an emergency basis only. This is not a substitute for, or an effort to provide, complete comprehensive medical care. It is impossible to recognize and treat all injuries or illnesses in a single emergency department visit. It is therefore important that you follow up closely with your physician. Call as soon as possible for an appointment. Return for worsening symptoms or if you develop fever, vomiting, or any other concerning symptoms. Problem Qualifiers Primary Impression: Back pain Back pain location: low back pain Chronicity: acute Back pain laterality: left Sciatica presence: without sciatica Qualified Codes: M54.5 - Low back pain Additional Impressions: Injury of left lower leg Encounter type: initial encounter Qualified Codes: S89.92XA - Unspecified injury of left lower leg, initial encounter Acute headache Headache type: unspecified Intractability: not intractable Qualified Codes : R51 - Headache Fall Encounter type: initial encounter Qualified Codes: W19.XXXA - Unspecified fall, initial encounter
[2017-04-19] MEDS ORDERED: NRN800 PO (14:20)
[2017-04-19] MEDS ORDERED: LSN20 PO (14:20)
[2017-04-19] MEDS ORDERED: METO25TA3 PO (14:20)
== END 2017-03-28 18:55 | disposition home or self-care (01) ==
LOC: C.EDB 15:48
DX: M54.5 Low back pain (principal); S89.92XA Unspecified injury of left lower leg, initial encounter; W19.XXXA Unspecified fall, initial encounter; R51 Headache; I10 Essential (primary) hypertension; E78.5 Hyperlipidemia, unspecified; E11.40 Type 2 diabetes mellitus with diabetic neuropathy, unspecified; E03.9 Hypothyroidism, unspecified; K57.30 Diverticulosis of large intestine without perforation or abscess without bleeding; F32.9 Major depressive disorder, single episode, unspecified; F41.9 Anxiety disorder, unspecified; Z86.73 Personal history of transient ischemic attack (TIA), and cerebral infarction without residual deficits; Z86.711 Personal history of pulmonary embolism; Z86.718 Personal history of other venous thrombosis and embolism; Z87.81 Personal history of (healed) traumatic fracture; Z87.442 Personal history of urinary calculi; Z90.710 Acquired absence of both cervix and uterus; Z98.51 Tubal ligation status; Z90.49 Acquired absence of other specified parts of digestive tract; Z98.890 Other specified postprocedural states; Z79.01 Long term (current) use of anticoagulants; Z79.4 Long term (current) use of insulin; Z79.84 Long term (current) use of oral hypoglycemic drugs; Z79.899 Other long term (current) drug therapy; Z88.0 Allergy status to penicillin; Z88.6 Allergy status to analgesic agent; Z88.8 Allergy status to other drugs, medicaments and biological substances; Z91.040 Latex allergy status; Z91.09 Other allergy status, other than to drugs and biological substances; Z80.9 Family history of malignant neoplasm, unspecified

== ENCOUNTER → 2017-05-09 | Day surgery (SDC) | payer BC ==
[2017-04-19 14:21] VITALS: Ht 160 cm; Wt 82.7 kg
[~2017-05-09] VITALS: Ht 160 cm; Wt 82.7 kg
[~2017-05-09] MED LIST changes: +500ML BSS 0.3ML EPI 1:1000PF IRRIG ONE; +ACETAMINOPHEN 325 MG TAB PO PRN; +AMVISC PLUS 0.8ML SYRINGE INT OCU ONE; +ATROPINE SULFATE 0.1 MG/ML 5ML SYR IV PRN; +BSS FLUSH ONE; +ENDOCOAT 0.85ML SYRINGE INT OCU ONE; +EpINEphrine INJ 1MG/ML AMP 1 MG/ML AMP ONE; +FENTANYL CITRATE INJ 50 MCG/1 ML 2 ML VIAL ONE; -FRRS300 PO; -GABA-112 PO; +LIDOCAINE 4% OP SOLN DROP CHARGE ONE; +LIDOCAINE 4% OP SOLN DROP CHARGE OPL SCH; +LIDOCAINE HCL 1% MPF 2 ML VIAL ONE; -LISI-461 PO; +LSN20 PO; +METO25TA3 PO; +MIDAZOLAM HCL 1 MG/ML 2ML VIAL ONE; +MIX: 4ML BSS 1ML EPI 1:1000 PF TOP ONE; +MOXIFLOXACIN OPH SOLN PER DROP CHARGE ONE; +NRN800 PO; -OXYC1TAB3 PO; -POLY335019 PO; +POVIDONE-IODINE OP SOLN 30 ML BTL ONE; +PROPARACAINE 0.5% OP SOLN PER DROP CHARGE OPL SCH; -TAMS0.4C38 PO; +TOBRAMYCIN/DEXAMETHASONE OPH OINT PER APPLN CHARGE ONE; -TPRSR25 PO
[2017-05-09] MEDS: TROPICAMIDE 1% OP SOLN PER DROP CHARGE OPL SCH ×3 (08:34→08:47)
[2017-05-09] MEDS: PHENYLEPHRINE HCL 2.5% OP SOLN PER DROP CHARGE OPL SCH ×3 (08:36→08:46)
[2017-05-09] MEDS: CYCLOPENTOLATE HCL 1% OP SOLN PER DROP CHARGE OPL SCH ×3 (08:38→08:48)
[2017-05-09] MEDS: MOXIFLOXACIN OPH SOLN PER DROP CHARGE OPL SCH ×3 (08:39→08:49)
--- NOTE | 2017-05-09 09:33 | [facility] Post Operative Brief Note ---
Immediate Operative Summary Operative Date May 09, 2017. Pre-Operative Diagnosis Left Eye Cataract Post-Operative Diagnosis Same Procedure(s) Performed Left Cataract Phacoemulsification With Intraocular Lens Implant Surgeon Dr. Young Brown Head Cager Surgeon(s) None Estimated Blood Loss 0 Findings left cataract Specimens None Complication(s) None Disposition
--- NOTE | 2017-05-09 09:34 | [facility] Operative Report ---
Operative Report Date of Service May 09, 2017. Operative Report DATE OF OPERATION: 05/09/17 PREOPERATIVE DIAGNOSIS: Senile nuclear cataract, left eye POSTOPERATIVE DIAGNOSIS: Senile nuclear cataract, left eye PROCEDURE PERFORMED: Phacoemulsification with intraocular lens implantation, left eye SURGEON: Dr. Manjit Brown ANESTHESIA: Topical with 1% intracameral lidocaine and monitored anesthesia care COMPLICATIONS: None DESCRIPTION OF PROCEDURE: After positively identifying the patient both verbally and by wristband in the preoperative area, the left eye was marked as the operative eye. The patient was then brought back to the operating room by the anesthesia and nursing staff where they were given a drop of Lidocaine and betadine into the operative eye. They were then sterilely prepped and draped in the standard fashion typical for ophthalmic surgery. Steri-strips were placed along the upper eyelids to keep the lashes back, and a lid speculum was placed into the operative eye. At this point, a documented time out was performed with members of the ophthalmology, nursing, and anesthesia staffs all agreeing upon the correct patient, correct location for surgery, correct procedure, and correct type and power of intraocular lens to be implanted. The microscope was then swung into position. First, a paracentesis wound was made using a sideport blade. Then, in sequence, 1% preservative-free lidocaine followed by Endocoat viscoelastic was injected into the anterior chamber. Next , the main incision was made with a keratome blade in triplanar fashion. A sharp cystotome was introduced into the eye and used to create a tear in the anterior capsule, which was directed into a continuous curvilinear capsulorrhexis using Utrata forceps. Hydrodissection was then performed with BSS on a flat-tip cannula. Next, the phacoemulsification handpiece was introduced into the eye and used to remove the nucleus in a [id number] fashion. This was done without complication and then the irrigation-aspiration handpiece was introduced into the eye and used to remove all remaining cortical and epinuclear material. Amvisc was then injected into the anterior chamber as well as into the capsular bag and using the lens injector system, an MX60 22.5 D lens, serial number [id number], and expiration date 01/2020 was injected into the capsular bag and rotated into the correct position. Next, the irrigation- aspiration handpiece was used to remove all remaining Amvisc. BSS was used to hydrate the main wound, and then BSS was injected into the paracentesis site to reach physiologic pressure and then the main wound was checked and found to be watertight. The patient was given drops of Vigamox and Tobradex ointment into the operative eye, and then the surrounding area was cleaned and dried. A clear plastic shield was placed over the eye and the patient was then sat up and taken from the operating room by the anesthesia staff having tolerated the procedure well and suffering no complications. DISPOSITION: The patient was returned to the recovery room in stable condition. I attest to the content of the Intraoperative Record and any orders documented therein. Any exceptions are noted below.
--- NOTE | 2017-05-09 09:35 | Discharge Instructions-SurgCtr ---
Discharge Instructions Date of Service May 09, 2017. Visit Reason for Visit: Cataract Left Eye Discharge Discharge Diagnosis / Problem: left cataract Discharge Goals Goal(s): Decrease discomfort, Improve function Medications Stopped Medications Name(s): METFORMIN STOPPED ON SUNDAY Activity Recommendations Activity Limitations: as noted below Anesthesia . Post Anesthesia Instructions: If you have had General Anesthesia or IV Sedation: * Do not drive today. * Resume driving when surgeon permits. * Do not make important decisions or sign legal documents today. * Call surgeon for: 1. Temperature elevations greater than 101 degrees F. 2. Uncontrollable pain. 3. Excessive bleeding. 4. Persistent nausea and vomiting. 5. Medication intolerance (nausea, vomiting or rash). * For nausea and vomiting use only clear liquids such as: tea, soda, bouillon until nausea subsides, then gradually increase diet as tolerated. * If you have any concerns or questions, call your surgeon's office. If physician is unavailable and it is an emergency, call 911 or go to the nearest emergency room. . Instructions / Follow-Up Instructions / Follow-Up ACTIVITY RECOMMENDATIONS: * Light activities. * You may walk outside, read, watch television. * You may notice redness on the white part of the eye and some blurry vision - this is normal. MEDICATIONS: Resume previous medications unless instructed otherwise by your surgeon. Start all eye drops at 11:30 am today: * Eye drops (today): Prednisone - one drop in operative eye every 2 hours while awake Ofloxacin - one drop in operative eye every 2 hours while awake Bromfenac - one drop in operative eye daily SPECIAL CARE INSTRUCTIONS: * Tape plastic shield over eye to sleep at night. Call your doctor at with any concerns or problems. FOLLOW UP VISIT: Follow-up with Dr Brown at [place] office as scheduled. Diet Recommendations Home Diet: no limitations Procedures Procedures Performed: Left Cataract Phacoemulsification With Intraocular Lens Implant Pending Studies Studies pending at discharge: no Medical Emergencies . Who to Call and When: Medical Emergencies: If at any time you feel your situation is an emergency, please call 911 immediately. . Non-Emergent Contact Non-Emergency issues call your: Surgeon . . "Provider Documentation" section prepared by Manjit Brown. .
--- NOTE | 2017-05-09 09:49 | Anesthesia Progress Nt - [facility] ---
Anesthesia Post Op Note Date & Time May 09, 2017 at 09:49 Vital Signs Pain Intensity: 0 Vital Signs Past 12 Hours Date Time Temp Pulse Resp B/P (MAP) Pulse Ox O2 Delivery O2 Flow Rate FiO2 05/09/17 09:38 36 94 16 166/87 (113) 94 Room Air 05/09/17 08:23 37.0 76 22 173/63 (99) 100 Room Air Notes Mental Status: alert / awake / arousable, participated in evaluation Pt Amnestic to Procedure: Yes Nausea / Vomiting: adequately controlled Pain: adequately controlled Airway Patency, RR, SpO2: stable & adequate BP & HR: stable & adequate Hydration State: stable & adequate Anesthetic Complications: no major complications apparent
[2017-05-09 10:00] VITALS: BP 162/72; PULSE 86; TEMP 36.7; O2SAT 97
== END | disposition home or self-care (01) ==
LOC: X.SURG 08:06
PROVIDERS: ATTEND Ophthalmology
DX: H25.12 Age-related nuclear cataract, left eye (principal); M06.9 Rheumatoid arthritis, unspecified; F32.9 Major depressive disorder, single episode, unspecified; E10.9 Type 1 diabetes mellitus without complications; Z86.718 Personal history of other venous thrombosis and embolism; I10 Essential (primary) hypertension; Z86.19 Personal history of other infectious and parasitic diseases; Z79.84 Long term (current) use of oral hypoglycemic drugs; Z79.01 Long term (current) use of anticoagulants; E78.00 Pure hypercholesterolemia, unspecified; F41.9 Anxiety disorder, unspecified; M19.90 Unspecified osteoarthritis, unspecified site; M81.0 Age-related osteoporosis without current pathological fracture; E78.5 Hyperlipidemia, unspecified; Z86.73 Personal history of transient ischemic attack (TIA), and cerebral infarction without residual deficits; E66.9 Obesity, unspecified

== ENCOUNTER → 2017-05-23 | Day surgery (SDC) | payer BC ==
[2017-05-21 10:33] VITALS: Ht 160 cm; Wt 82.7 kg
[~2017-05-23] VITALS: Ht 160 cm; Wt 82.7 kg
[~2017-05-23] MED LIST changes: -GLC/500 PO; +LACTATED RINGER'S 1000ML 500 ML IV SCH; -LIDOCAINE 4% OP SOLN DROP CHARGE OPL SCH; +LIDOCAINE 4% OP SOLN DROP CHARGE OPR SCH; -PROPARACAINE 0.5% OP SOLN PER DROP CHARGE OPL SCH; +PROPARACAINE 0.5% OP SOLN PER DROP CHARGE OPR SCH; +PROPOFOL IV EMULSION 10 MG/ML 20 ML VIAL IV ONE
[2017-05-23] MEDS: PHENYLEPHRINE HCL 2.5% OP SOLN PER DROP CHARGE OPR SCH ×3 (06:35→06:48)
[2017-05-23] MEDS: TROPICAMIDE 1% OP SOLN PER DROP CHARGE OPR SCH ×3 (06:36→06:49)
[2017-05-23] MEDS: CYCLOPENTOLATE HCL 1% OP SOLN PER DROP CHARGE OPR SCH ×3 (06:37→06:50)
[2017-05-23] MEDS: MOXIFLOXACIN OPH SOLN PER DROP CHARGE OPR SCH ×3 (06:38→06:51)
--- NOTE | 2017-05-23 07:26 | [facility] Operative Report ---
Operative Report Date of Service May 23, 2017. Operative Report Phaco with monofocal IOL DATE OF OPERATION: 05/23/17 PREOPERATIVE DIAGNOSIS: Senile nuclear cataract, right eye POSTOPERATIVE DIAGNOSIS: Senile nuclear cataract, right eye PROCEDURE PERFORMED: Phacoemulsification with intraocular lens implantation, right eye SURGEON: Dr. Manjit Brown ANESTHESIA: Topical with 1% intracameral lidocaine and monitored anesthesia care COMPLICATIONS: None DESCRIPTION OF PROCEDURE: After positively identifying the patient both verbally and by wristband in the preoperative area, the right eye was marked as the operative eye. The patient was then brought back to the operating room by the anesthesia and nursing staff where they were given a drop of Lidocaine and betadine into the operative eye. They were then sterilely prepped and draped in the standard fashion typical for ophthalmic surgery. Steri-strips were placed along the upper eyelids to keep the lashes back, and a lid speculum was placed into the operative eye. At this point, a documented time out was performed with members of the ophthalmology, nursing, and anesthesia staffs all agreeing upon the correct patient, correct location for surgery, correct procedure, and correct type and power of intraocular lens to be implanted. The microscope was then swung into position. First, a paracentesis wound was made using a sideport blade. Then, in sequence, 1% preservative-free lidocaine followed by Endocoat viscoelastic was injected into the anterior chamber. Next , the main incision was made with a keratome blade in triplanar fashion. A sharp cystotome was introduced into the eye and used to create a tear in the anterior capsule, which was directed into a continuous curvilinear capsulorrhexis using Utrata forceps. Hydrodissection was then performed with BSS on a flat-tip cannula. Next, the phacoemulsification handpiece was introduced into the eye and used to remove the nucleus in a [id number] fashion. This was done without complication and then the irrigation-aspiration handpiece was introduced into the eye and used to remove all remaining cortical and epinuclear material. Amvisc was then injected into the anterior chamber as well as into the capsular bag and using the lens injector system, an MX60 21.5 D lens, serial number [id number], and expiration date 01/2020 was injected into the capsular bag and rotated into the correct position. Next, the irrigation- aspiration handpiece was used to remove all remaining Amvisc. BSS was used to hydrate the main wound, and then BSS was injected into the paracentesis site to reach physiologic pressure and then the main wound was checked and found to be watertight. The patient was given drops of Vigamox and Tobradex ointment into the operative eye, and then the surrounding area was cleaned and dried. A clear plastic shield was placed over the eye and the patient was then sat up and taken from the operating room by the anesthesia staff having tolerated the procedure well and suffering no complications. DISPOSITION: The patient was returned to the recovery room in stable condition. I attest to the content of the Intraoperative Record and any orders documented therein. Any exceptions are noted below.
--- NOTE | 2017-05-23 07:26 | [facility] Post Operative Brief Note ---
Immediate Operative Summary Operative Date May 23, 2017. Pre-Operative Diagnosis Cataract Right Eye Post-Operative Diagnosis Same Procedure(s) Performed Right Cataract Phacoemulsification With Intraocular Lens Implant Surgeon Dr. Brown Physician Assistant Surgeon(s) None Estimated Blood Loss 0 Findings right cataract Specimens None Complication(s) None Disposition
--- NOTE | 2017-05-23 07:27 | Discharge Instructions-[facility] ---
Discharge Instructions Date of Service May 23, 2017. Visit Reason for Visit: Cataract Right Eye Discharge Discharge Diagnosis / Problem: right cataract Discharge Goals Goal(s): Decrease discomfort, Improve function Activity Recommendations Activity Limitations: as noted below Anesthesia . Post Anesthesia Instructions: If you have had General Anesthesia or IV Sedation: * Do not drive today. * Resume driving when surgeon permits. * Do not make important decisions or sign legal documents today. * Call surgeon for: 1. Temperature elevations greater than 101 degrees F. 2. Uncontrollable pain. 3. Excessive bleeding. 4. Persistent nausea and vomiting. 5. Medication intolerance (nausea, vomiting or rash). * For nausea and vomiting use only clear liquids such as: tea, soda, bouillon until nausea subsides, then gradually increase diet as tolerated. * If you have any concerns or questions, call your surgeon's office. If physician is unavailable and it is an emergency, call 911 or go to the nearest emergency room. . Instructions / Follow-Up Instructions / Follow-Up ACTIVITY RECOMMENDATIONS: * Light activities. * You may walk outside, read, watch television. * You may notice redness on the white part of the eye and some blurry vision - this is normal. MEDICATIONS: Resume previous medications unless instructed otherwise by your surgeon. Start all eye drops at 9:30 am today: * Eye drops (today): Prednisone - one drop in operative eye every 2 hours while awake Ofloxacin - one drop in operative eye every 2 hours while awake Bromfenac - one drop in operative eye daily SPECIAL CARE INSTRUCTIONS: * Tape plastic shield over eye to sleep at night. Call your doctor at with any concerns or problems. FOLLOW UP VISIT: Follow-up with Dr Brown at [facility] as scheduled. Diet Recommendations Home Diet: no limitations Procedures Procedures Performed: Right Cataract Phacoemulsification With Intraocular Lens Implant Pending Studies Studies pending at discharge: no Medical Emergencies . Who to Call and When: Medical Emergencies: If at any time you feel your situation is an emergency, please call 911 immediately. . Non-Emergent Contact Non-Emergency issues call your: Surgeon . . "Provider Documentation" section prepared by Manjit Brown. .
[2017-05-23 07:28] VITALS: TEMP 36.7
[2017-05-23 07:49] VITALS: BP 158/97; PULSE 74; O2SAT 96
--- NOTE | 2017-05-23 07:49 | Anesthesia Progress Nt - [facility] ---
Anesthesia Post Op Note Date & Time May 23, 2017 at 07:48 Vital Signs Pain Intensity: 0 Vital Signs Past 12 Hours Date Time Temp Pulse Resp B/P (MAP) Pulse Ox O2 Delivery O2 Flow Rate FiO2 05/23/17 07:28 36.7 76 16 147/73 (97) 95 Room Air 05/23/17 06:37 36.7 77 18 162/84 (110) 98 Room Air Notes Mental Status: alert / awake / arousable, participated in evaluation Pt Amnestic to Procedure: Yes Nausea / Vomiting: adequately controlled Pain: adequately controlled Airway Patency, RR, SpO2: stable & adequate BP & HR: stable & adequate Hydration State: stable & adequate Anesthetic Complications: no major complications apparent
== END | disposition home or self-care (01) ==
LOC: X.SURG 06:11
PROVIDERS: ATTEND Ophthalmology
DX: H25.11 Age-related nuclear cataract, right eye (principal); G20 Parkinson's disease; M19.90 Unspecified osteoarthritis, unspecified site; Z96.651 Presence of right artificial knee joint; Z98.890 Other specified postprocedural states; Z86.73 Personal history of transient ischemic attack (TIA), and cerebral infarction without residual deficits; E66.9 Obesity, unspecified; Z68.32 Body mass index [BMI] 32.0-32.9, adult

== ENCOUNTER 2017-08-29 17:27 | Emergency (ER) | payer BC ==
[~2017-08-29] VITALS: Ht 157.5 cm; Wt 81.8 kg
[~2017-08-29 17:27] MED LIST changes: -500ML BSS 0.3ML EPI 1:1000PF IRRIG ONE; -ACETAMINOPHEN 325 MG TAB PO PRN; -AMVISC PLUS 0.8ML SYRINGE INT OCU ONE; -ATROPINE SULFATE 0.1 MG/ML 5ML SYR IV PRN; -BSS FLUSH ONE; -ENDOCOAT 0.85ML SYRINGE INT OCU ONE; -EpINEphrine INJ 1MG/ML AMP 1 MG/ML AMP ONE; -FENTANYL CITRATE INJ 50 MCG/1 ML 2 ML VIAL ONE; -LACTATED RINGER'S 1000ML 500 ML IV SCH; -LIDOCAINE 4% OP SOLN DROP CHARGE ONE; -LIDOCAINE 4% OP SOLN DROP CHARGE OPR SCH; -LIDOCAINE HCL 1% MPF 2 ML VIAL ONE; -MIDAZOLAM HCL 1 MG/ML 2ML VIAL ONE; -MIX: 4ML BSS 1ML EPI 1:1000 PF TOP ONE; -MOXIFLOXACIN OPH SOLN PER DROP CHARGE ONE; -POVIDONE-IODINE OP SOLN 30 ML BTL ONE; -PROPARACAINE 0.5% OP SOLN PER DROP CHARGE OPR SCH; -PROPOFOL IV EMULSION 10 MG/ML 20 ML VIAL IV ONE; -TOBRAMYCIN/DEXAMETHASONE OPH OINT PER APPLN CHARGE ONE
[2017-08-29 17:29] VITALS: TEMP 36.6; Ht 157.5 cm; Wt 81.8 kg
[2017-08-29] MEDS ORDERED: MoRPHine SULFATE 4 MG/ML 1 ML CARP\\VIAL IM STA (17:42)
--- NOTE | 2017-08-29 18:22 | DIAGNOSTIC IMAGING REPORT ---
AP CHEST WITH RIGHT SIDED RIB SERIES CLINICAL HISTORY: Fall with right chest wall pain. FINDINGS: An AP chest radiograph with 4 additional views may right-sided rib series is compared to study dated 10/27/2016. The heart is mildly enlarged. Chronic interstitial thickening is similar to previous. No airspace consolidation or large pleural effusion is identified. Chronic elevation of right hemidiaphragm is unchanged. No pneumothorax is seen. The skeletal structures are osteopenic. There is no radiographic evidence of acute/distracted right-sided rib fracture on the rib series. The remainder of the bony thorax is grossly intact. Degenerative change is seen in the shoulders and thoracic spine. Cholecystectomy clips are noted. IMPRESSION: 1. Mild cardiomegaly with no acute cardiopulmonary abnormality. 2. There is no radiographic evidence of right-sided rib fracture as clinically queried. Electronically signed by: Félix Cisneros M.D. 08/29/2017 6:20 PM Dictated Date/Time: 08/29/2017 6:18 PM
--- NOTE | 2017-08-29 18:57 | DIAGNOSTIC IMAGING REPORT ---
CT SCAN OF THE BRAIN WITHOUT IV CONTRAST CLINICAL HISTORY: Fall. COMPARISON STUDY: CT of the brain dated 03/28/2017. TECHNIQUE: Unenhanced axial CT scan of the brain is performed from the vertex to the skull base. A dose lowering technique was utilized adhering to the principles of ALARA. CT DOSE: 537.48 mGy.cm FINDINGS: Brain parenchyma: There is minimal subcortical and periventricular microangiopathic change. There is no hemorrhage, mass effect, or evidence of acute territorial ischemia by CT criteria. Abernathy-white matter is preserved. No extra-axial fluid collection is seen. Ventricles, sulci, cisterns: Normal in configuration. Intracranial vasculature: There is minimal atherosclerotic calcification of the cavernous carotid arteries. Calvarium: The skeletal structures are osteopenic. There is no depressed calvarial fracture. Soft tissues: There is minimal high right frontal scalp contusion. Sinuses and mastoids: The visualized paranasal sinuses are clear. The mastoid air cells are well pneumatized. Orbits: The bony orbits are grossly intact. There is evidence of previous bilateral ocular lens surgery. IMPRESSION: There is no hemorrhage, mass effect, or evidence of acute territorial ischemia by CT criteria. Electronically signed by: Félix Cisneros M.D. 08/29/2017 6:56 PM Dictated Date/Time: 08/29/2017 6:54 PM
[2017-08-29 19:12] VITALS: BP 144/83; PULSE 82; O2SAT 98
--- NOTE | 2017-08-29 19:18 | EMERGENCY ROOM VISIT NOTE ---
History Report prepared by Suyapa: Sally Vaughn Under the Supervision of: Dr. Isra العلي D.O. First contact with patient: 17:32 Chief Complaint: FALL Stated Complaint: FELL LAST WEEK-HIT R SIDE,R BREAST AND CHEST PAIN History of Present Illness The patient is a 62 year old female who presents to the Emergency Room with complaints of an episode of fall 1 week ago. The patient states that she has been falling frequently over the past couple of months. She is following with her doctor for this. 1 week ago, she was coming out of the laundry room when the lights suddenly went out. She fell onto her right ribs onto a wooden shelf. She also hit her head in the fall. She has been having right rib pain which goes up into her breast and neck. She has tried applying ice to no significant relief. Applying heat seemed to worsen her pain. She has not noticed any bruising. She has been having headaches. She reports some back pain and SOB. She denies any cough or fever. She was on a blood thinner for a history of blood clots. She was taken off of her blood thinner due to her frequent falls and the risk of bleeding. Source of History: patient Onset: 1 week ago Position: other (global) Quality: other (fall) Timing: other (episodic) Associated Symptoms: + headache, + neck pain, + SOB, + back pain, No fevers , No cough Note: Pt reports right rib pain. Review of Systems See HPI for pertinent positives & negatives. A total of 10 systems reviewed and were otherwise negative. Past Medical & Surgical Medical Problems: (1) Adhesion of abdominal wall (2) Adult hypothyroidism (3) Anxiety (4) Calculus of kidney and ureter (5) Carpal tunnel syndrome on both sides (6) Deep venous thrombosis (7) Depression (8) Diabetic gastroparesis (9) Diabetic neuropathy (10) Diverticulosis of colon without diverticulitis (11) DJD (degenerative joint disease) (12) DM type 2 (diabetes mellitus, type 2) (13) Dyslipidemia (14) Essential hypertension (15) HTN (hypertension) (16) Obesity (17) Pulmonary embolism (18) Transient ischemic attack (19) Vertebral fracture (20) Vertigo (21) Vitamin D deficiency Surgical Problems: (1) Bilateral tubal ligation (2) H/O knee surgery (3) Hysterectomy (4) Oophorectomy (5) S/p breast lesion excision (6) S/P dilation and curettage (7) S/P laparoscopic cholecystectomy (8) S/P left knee arthroscopy (9) S/p lysis of adhesions (10) S/p small bowel repair Family History Cancer (lung and liver) FATHER FH: Alzheimers disease MOTHER Social History Smoking Status: Never Smoker Alcohol Use: none Marital Status: Housing Status: lives with family Current/Historical Medications Scheduled Bupropion HCl (Bupropion HCl Sr), 100 MG PO TID Cholecalciferol (Vitamin D3), 1,000 INTER.UNIT PO QAM Gabapentin (Gabapentin), 800 MG PO TID Insulin Aspart (Novolog), 16 UNITS SC AC Insulin Glargine (Lantus), 42 UNITS SQ BID Levothyroxine Sodium (Synthroid), 100 MCG PO QAM Lisinopril (Lisinopril), 20 MG PO QAM Metoprolol Succinate (Toprol Xl), 25 MG PO QAM Rosuvastatin Calcium (Crestor), 20 MG PO QAM Sertraline Hcl (Zoloft), 200 MG PO QAM Scheduled PRN Saline ([place]), 1 SPRAY NEENA for Nasal Congestion Allergies Coded Allergies: Adhesives (Verified Allergy, Unknown, RASH, 08/29/17) Iodinated Diagnostic Agents (Verified Allergy, Unknown, burning and aching in veins, 08/29/17) Latex1 -Allergic Contact Dermititis (Verified Allergy, Unknown, RASH, 08/29) Penicillins (Verified Allergy, Unknown, n/v, rash, 08/29/17) Ketorolac (Verified Adverse Reaction, Mild, ITCHING., 08/29/17) Tromethamine (Verified Adverse Reaction, Mild, ITCHING., 08/29/17) Aspirin (Verified Adverse Reaction, Unknown, currently with gastric ulcer , per pt, 08/29/17) Physical Exam Vital Signs Date Time Temp Pulse Resp B/P (MAP) Pulse Ox O2 Delivery O2 Flow Rate FiO2 08/29/17 19:12 82 18 144/83 98 Room Air 08/29/17 17:29 36.6 84 18 174/80 98 Room Air Physical Exam CONSTITUTIONAL/VITAL SIGNS: Reviewed / noted above. GENERAL: Non-toxic in appearance. INTEGUMENTARY: Warm, dry, and [place]. HEAD: Normocephalic. EYES: without scleral icterus or trauma. ENT/OROPHARYNX: clear and moist. LYMPHADENOPATHY/NECK: Is supple without lymphadenopathy or meningismus. CHEST: Mild tenderness to palpation of the right lateral chest wall and right anterior chest wall. RESPIRATORY: Lungs clear and equal. CARDIOVASCULAR: Regular rate and rhythm. GI/ABDOMEN: Soft and nontender. No organomegaly or pulsatile mass. No rebound or guarding. Normal bowel sounds. EXTREMITIES: Warm and well perfused. BACK: No CVA tenderness. NEUROLOGICAL: Intact without focal deficits. PSYCHIATRIC: normal affect. MUSCULOSKELETAL: Normally developed with good muscle tone. Medical Decision & Procedures ER Provider Diagnostic Interpretation: X ray results and stated below per my interpretation and radiology interpretation. Radiology results as stated below per my review and radiologist interpretation: AP CHEST WITH RIGHT SIDED RIB SERIES CLINICAL HISTORY: Fall with right chest wall pain. FINDINGS: An AP chest radiograph with 4 additional views may right-sided rib series is compared to study dated 10/27/2016. The heart is mildly enlarged. Chronic interstitial thickening is similar to previous. No airspace consolidation or large pleural effusion is identified. Chronic elevation of right hemidiaphragm is unchanged. No pneumothorax is seen. The skeletal structures are osteopenic. There is no radiographic evidence of acute/distracted right-sided rib fracture on the rib series. The remainder of the bony thorax is grossly intact. Degenerative change is seen in the shoulders and thoracic spine. Cholecystectomy clips are noted. IMPRESSION: 1. Mild cardiomegaly with no acute cardiopulmonary abnormality. 2. There is no radiographic evidence of right-sided rib fracture as clinically queried. Electronically signed by: Félix Cisneros M.D. 08/29/2017 6:20 PM Dictated Date/Time: 08/29/2017 6:[address] SCAN OF THE BRAIN WITHOUT IV CONTRAST CLINICAL HISTORY: Fall. COMPARISON STUDY: CT of the brain dated 03/28/2017. TECHNIQUE: Unenhanced axial CT scan of the brain is performed from the vertex to the skull base. A dose lowering technique was utilized adhering to the principles of ALARA. CT DOSE: 537.48 mGy.cm FINDINGS: Brain parenchyma: There is minimal subcortical and periventricular microangiopathic change. There is no hemorrhage, mass effect, or evidence of acute territorial ischemia by CT criteria. Abernathy-white matter is preserved. No extra-axial fluid collection is seen. Ventricles, sulci, cisterns: Normal in configuration. Intracranial vasculature: There is minimal atherosclerotic calcification of the cavernous carotid arteries. Calvarium: The skeletal structures are osteopenic. There is no depressed calvarial fracture. Soft tissues: There is minimal high right frontal scalp contusion. Sinuses and mastoids: The visualized paranasal sinuses are clear. The mastoid air cells are well pneumatized. Orbits: The bony orbits are grossly intact. There is evidence of previous bilateral ocular lens surgery. IMPRESSION: There is no hemorrhage, mass effect, or evidence of acute territorial ischemia by CT criteria. Electronically signed by: Félix Cisneros M.D. 08/29/2017 6:56 PM Dictated Date/Time: 08/29/2017 6:54 PM Medications Administered Medications (Trade) Dose Ordered Sig/Frankie Route Start Time Stop Time Status Last Admin Dose Admin Morphine Sulfate (MoRPHine SULFATE INJ) 4 mg NOW STAT IM 08/29/17 17:42 08/29/17 17:44 DC 08/29/17 18:04 4 MG ED Course 1736: Previous medical records were reviewed. The patient was evaluated in room B2. A complete history and physical examination was performed. 1742: Morphine Sulfate 4 mg IM. 1919: On reevaluation, the patient is resting comfortably. I discussed the results and findings with the patient. She verbalized agreement of the treatment plan. She was discharged home. Medical Decision Differential includes close head injury, intracranial bleed, facial trauma, cervical spine trauma, chest and thoracic trauma, abdominal and intra-abdominal trauma, spine neurologic trauma, extremity trauma. This is a 62-year-old female who presents to the ED with a chief complaint of a fall. The patient states that she fell 1 week ago. She continues having right- sided rib pain. She also reports having fallen 4 days ago. She reports a frequent history of falls. She has been taken off of anticoagulation by her PCP. She has had extensive evaluation by her PCP without finding a precise cause for her falling. The patient complains of right-sided rib pain and has also had some headaches. She denies hitting her head and her last fall. Denies any neck or back pain. No rib pain. No shortness of breath. She does report that her pain is worse with coughing or deep breathing. Her exam is noted above. She has tenderness to palpation of the right lateral ribs. No obvious trauma to the head. The patient was treated with morphine IM. Chest x- ray and ribs did not show acute pathology. CT scan of the brain did not show acute traumatic injury. The patient was told the results. She is felt to be stable for discharge. Medication Reconcilliation Current Medication List: was personally reviewed by me Blood Pressure Screening Patient's blood pressure: Elevated blood pressure Blood pressure disposition: Elevated BP felt to be situational Impression Primary Impression: Chest wall contusion Additional Impression: Fall Scribe Attestation The scribe's documentation has been prepared under my direction and personally reviewed by me in its entirety. I confirm that the note above accurately reflects all work, treatment, procedures, and medical decision making performed by me. Departure Information Dispostion Home / Self-Care Referrals Adria Hilliard M.D. (PCP) Patient Instructions [facility] Additional Instructions Follow-up with your doctor for further care and evaluation in 1-2 days. Return to the emergency department for worsening or new symptoms or any concerns. You have been examined and treated today on an emergency basis only. This is not a substitute for, or an effort to provide, complete comprehensive medical care. It is impossible to recognize and treat all injuries or illnesses in a single emergency department visit. It is therefore important that you follow up closely with your doctor. Call as soon as possible for an appointment. Problem Qualifiers
== END 2017-08-29 19:51 | disposition home or self-care (01) ==
LOC: C.EDB 17:29
DX: S20.211A Contusion of right front wall of thorax, initial encounter (principal); M54.2 Cervicalgia; W19.XXXA Unspecified fall, initial encounter; Y92.008 Other place in unspecified non-institutional (private) residence as the place of occurrence of the external cause; R29.6 Repeated falls; M85.88 Other specified disorders of bone density and structure, other site; E10.9 Type 1 diabetes mellitus without complications; I10 Essential (primary) hypertension; E03.9 Hypothyroidism, unspecified; Z79.4 Long term (current) use of insulin; Z79.899 Other long term (current) drug therapy

== ENCOUNTER 2022-01-27 16:25 | Inpatient (IN) ==
[2022-01-27] MEDS ORDERED: VANCOMYCIN HCL 2,000 MG in SODIUM CHLORIDE 0.9% 500 ML IV ONE (19:53)
[2022-01-27] MEDS ORDERED: VANCOMYCIN CONSULT ACTIVE PRN (19:53)
[2022-01-27] MEDS ORDERED: MoRPHine SULFATE 2 MG/ML CARP IV STA (19:53)
[2022-01-27 20:01] LABS: Basophils # (auto) 0.03 K/uL (0-0.2); Basophils % (auto) 0.4 %; Eosinophils # (auto) 0.09 K/uL (0-0.5); Eosinophils % (auto) 1.2 %; Hematocrit (blood only) 35.7 % (37-47); Hemoglobin 12.1 g/dL (12.0-16.0); Immature Granulocytes # (auto) 0.01 K/uL (0.00-0.02); Immature Granulocytes % (auto) 0.1 %; Lymphocytes # (auto) 2.22 K/uL (1.2-3.4); Lymphocytes % (auto) 29.9 %; Mean Corpuscular Hemoglobin 30.6 pg (25-34); Mean Corpuscular Hgb Conc 33.9 g/dL (32-36); Mean Corpuscular Volume 90.4 fL (80-100); Mean Platelet Volume 9.5 fL (7.4-10.4); Monocytes # (auto) 0.47 K/uL (0.11-0.59); Monocytes % (auto) 6.3 %; Neutrophils # (auto) 4.61 K/uL (1.4-6.5); Neutrophils % (auto) 62.1 %; Platelet Count 134 K/uL (130-400); RDW Coefficient of Variation 12.9 % (11.5-14.5); RDW Standard Deviation 42.7 fL (36.4-46.3); Red Blood Count 3.95 M/uL (4.2-5.4); White Blood Count 7.43 K/uL (4.8-10.8)
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
[2022-01-27 20:15] LABS: Albumin Globulin Ratio 1.3 (0.9-2); Albumin Level 4.4 gm/dl (3.4-5.0); BUN Creatinine Ratio 16.1 (10-20); Bilirubin,Total 0.7 mg/dl (0.2-1.0); C Reactive Protein 0.9 mg/dl (0-0.5); Calcium 9.2 mg/dl (8.5-10.1); Creatinine Clr Calc Pharmacy 65.1 ml/min; Est GFR (Non-African American) 69.9 ml/min; Globulin 3.5 gm/dl (2.5-4.0); Potassium 4.4 mmol/L (3.5-5.1); Total Protein 7.9 gm/dl (6.0-8.3)
[2022-01-27] MEDS ORDERED: ONDANSETRON INJ 2 MG/ML 2 ML VIAL IV STA (22:06)
[2022-01-27] MEDS ORDERED: ACETAMINOPHEN 500 MG TAB PO STA (22:06)
[2022-01-28] MEDS ORDERED: DICYCLOMINE HCL 20 MG TAB PO PRN (02:05)
[2022-01-28] MEDS ORDERED: oxyCODONE HCL IR 5 MG TAB (IMMEDIATE RELEASE) PO PRN ×2 (02:05→02:36)
[2022-01-28] MEDS ORDERED: ACETAMINOPHEN 325 MG TAB PO PRN ×2 (02:05→02:37)
[2022-01-28] MEDS ORDERED: DOCUSATE SODIUM 100 MG CAP PO PRN (02:05)
[2022-01-28] MEDS ORDERED: POLYETHYLENE (MIRALAX) 17 GM PACK PO PRN (02:05)
[2022-01-28] MEDS ORDERED: CEFEPIME 2,000 MG/20 ML VIAL ONE (02:23)
[2022-01-28] MEDS: CEFEPIME 2,000 MG in SYRINGE 0 ML IV SCH ×2 (02:25→14:37)
--- NOTE | 2022-01-28 02:44 | History and Physical Report ---
DATE OF ADMISSION: 01/27/2022. CHIEF COMPLAINT: Right lower extremity cellulitis and right big toe infection. HISTORY OF PRESENT ILLNESS: A 66-year-old female with past medical history significant for type 2 diabetes, diabetic neuropathy, hyperlipidemia, hypothyroidism, obstructive sleep apnea on CPAP, history of upper extremity venous thrombosis, history of pulmonary embolism, history of stroke, history of hypertension, female stress incontinence, history of osteoarthritis, history of fractured ribs, fracture of transverse process of lumbar vertebrae, Alzheimer dementia, depression, anxiety,recurrent falls, presents with right lower extremity big toe infection and cellulitis. The patient says she had blister on her right big toe for last 2 weeks and applied some ointments, but is not getting better, lot of pain. She came to the ER yesterday, she was given a dose of Rocephin. She was doing okay and as the patient was wanted to go home, she was discharged on Keflex and Bactrim and advised to come to the ER if things getting worse. The patient is continued to have lot of pain at the right big toe, not getting better, she came to the hospital. She had fever a couple of days ago. She says every day she has headaches. Has some blurred visions. No earache, no runny nose, no sore throat, no cough, no chest pain. She gets a little bit shortness of breath with exertion, which is chronic. No nausea, no abdominal pain. She had some diarrhea a few days back. Stools are always black greenish. Normal bladder movements. She says that since last 1 month she has abdominal pain after eating food. ALLERGIES: ADHESIVES, IODINATED CONTRAST MEDIA, LATEX, PENICILLIN, HEPATITIS B VIRUS, ANESTHETICS, KETOROLAC,TROMETHAMINE, ASPIRIN PAST MEDICAL HISTORY: As mentioned above. PAST SURGICAL HISTORY: Multiple. Adhesions removed from small bowel, biopsy of left breast mass, cataract surgery, colonoscopy, colonoscopy with biopsy, dilatation and curettage, left knee arthroscopy, laparoscopic surgical adhesions, ligation of oviducts, partial hysterectomy, removal of both ovaries, total abdominal hysterectomy with removal of tubes. MEDICATIONS: The patient is on bupropion 100 mg p.o. daily, Keflex 500 mg p.o. q. 6 hours for 10 days, vitamin D 2000 units p.o. daily, Plavix 75 mg p.o. daily, dicyclomine 20 mg p.o. t.i.d. p.r.n., Colace 100 mg p.o. b.i.d. p.r.n. Trulicity 3 mg subcutaneous weekly, gabapentin 800 mg p.o. a.m., insulin glargine 46 units subcutaneous b.i.d. with meals, Humalog 30 units subcutaneous with meals t.i.d., levothyroxine 125 mcg p.o. daily, lisinopril 20 mg p.o. daily, metoprolol succinate 25 mg p.o. q.a.m., oxycodone 5 mg p.o. q. 6 hours p.r.n., MiraLax 17 g p.o. daily p.r.n., lovastatin 20 mg p.o. daily, Zoloft 200 mg p.o. a.m., Bactrim-DS 1 tablet p.o. b.i.d., tramadol 50 mg p.o. q. 6 hours p.r.n. FAMILY HISTORY: Significant for father had lung cancer. Sister has stomach cancer. Aunt has diabetes. Mother diabetes. SOCIAL HISTORY: . No smoking, alcohol rare, no drug use. REVIEW OF SYSTEMS: As per HPI. Rest of the review of systems is negative. PHYSICAL EXAMINATION: GENERAL: The patient is of moderate build, not in acute distress. VITAL SIGNS: Temperature 36.3, pulse 77, respiratory rate 18, blood pressure 163/95, oxygen 94% on room air. HEENT: Pupils equal, round and reactive to light. Oral mucosa moist. LUNGS: No JVD, no neck masses. CARDIOVASCULAR: S1 and S2 heard. Regular rate and rhythm. No murmur, no gallop. RESPIRATORY SYSTEM: Normal AP diameter. No accessory muscle use. No wheezing, no crackles. ABDOMEN: Soft. Bowel sounds are present, nontender, no distention. CENTRAL NERVOUS SYSTEM: Cranial nerves II-XII grossly intact, nonfocal. EXTREMITIES: Right lower extremity cellulitis. Right lower extremity is erythematous and swollen and tender until below the knee and also right big toe is erythematous and swollen. No active drainage seen. LABORATORY: WBC 7.4, hemoglobin 12.1, hematocrit 35.7, platelets 134. ESR 35. Sodium 136, potassium 4.4, chloride 104, bicarb 25, BUN 14, creatinine 0.8, serum glucose 94, lactate 1, calcium 9.2, total bilirubin 0.7, AST 25, ALT 17, alkaline phosphatase 152. C-reactive protein 0.9. SARS-CoV-2 rapid test negative. ASSESSMENT AND PLAN: This is a 66-year-old female who presents with right lower extremity cellulitis and right big toe wound. 1. Right lower extremity cellulitis and right big toe infection. Empirically started on vancomycin,and cefepime. Follow the cultures. Follow the response. , rule out DVT. If not improving, may need to consider arterial ultrasound. 2. Diabetes. Continue his home long-acting insulin, place on sliding scale. Follow the blood sugars, follow HbA1c levels. 3. Hyperlipidemia: Continue statin. 4. Depression: Continue Zoloft. 5. Hypertension. Continue home medication of lisinopril, metoprolol XL. We will monitor the blood pressure. 6. Depression. Continue Zoloft and bupropion. 7. Hypothyroidism: Continue Synthroid. 8. Obstructive sleep apnea. CPAP at bedtime. 9. History of CVA: On statin. 10. DVT prophylaxis. Will be placed on Lovenox. DISPOSITION: Close monitor in the medical floor. PT/OT prior to discharge. Social Service to help with discharge planning. Job ID: [id number] [facility]
[2022-01-28] MEDS ORDERED: GLUCAGON FOR INJ 1 MG VIAL IM PRN (02:45)
[2022-01-28] MEDS ORDERED: GLUCOSE 10 TABS/TUBE PO PRN (02:45)
[2022-01-28] MEDS ORDERED: CARBOHYDRATES FOR HYPOGLYCEMIA PO PRN (02:45)
[2022-01-28] MEDS ORDERED: GLUCOSE 40% GEL 15 GM TUBE PO PRN (02:45)
[2022-01-28] MEDS ORDERED: DEXTROSE 50% 50 ML SYRINGE IV PRN (02:45)
[2022-01-28] MEDS: LEVOTHYROXINE SODIUM 125 MCG TABLET PO SCH (06:21)
[2022-01-28 06:40] LABS: Basophils # (auto) 0.02 K/uL (0-0.2); Basophils % (auto) 0.3 %; Eosinophils # (auto) 0.09 K/uL (0-0.5); Eosinophils % (auto) 1.5 %; Hematocrit (blood only) 34.4 % (37-47); Hemoglobin 11.8 g/dL (12.0-16.0); Immature Granulocytes # (auto) 0.01 K/uL (0.00-0.02); Immature Granulocytes % (auto) 0.2 %; Lymphocytes # (auto) 1.57 K/uL (1.2-3.4); Mean Corpuscular Hemoglobin 30.8 pg (25-34); Mean Corpuscular Hgb Conc 34.3 g/dL (32-36); Mean Corpuscular Volume 89.8 fL (80-100); Mean Platelet Volume 9.6 fL (7.4-10.4); Monocytes # (auto) 0.41 K/uL (0.11-0.59); Monocytes % (auto) 6.8 %; Neutrophils # (auto) 3.93 K/uL (1.4-6.5); Neutrophils % (auto) 65.2 %; Platelet Count 108 K/uL (130-400); RDW Standard Deviation 42.3 fL (36.4-46.3); Red Blood Count 3.83 M/uL (4.2-5.4); White Blood Count 6.03 K/uL (4.8-10.8)
--- NOTE | 2022-01-28 06:44 | Ultrasound Report ---
US venous doppler LE RT CLINICAL HISTORY: swelling and erythema of right lowr ext. DVT? COMPARISON: None available at the time of this dictation. TECHNIQUE: Right lower extremity real-time compression venous ultrasound with Color Doppler imaging. Utilizing real-time ultrasonic imaging multiple real time high-resolution ultrasonic images with comp ression and noncompression maneuvers of the deep venous system in addition to color doppler imaging w ere performed from the common femoral vein through the proximal calf veins. FINDINGS: Currently there is normal compressibility of the deep venous system from the common femoral vein thro ugh the proximal calf veins. No current evidence of acute thrombosis is identified. Impression: No evidence of deep venous thrombus. ACT 112: Negative or not required by law. Electronically signed by: Will Siddiqi M.D. 01/28/2022 6:43 AM
[2022-01-28 07:04] LABS: BUN Creatinine Ratio 16.3 (10-20); Calcium 8.5 mg/dl (8.5-10.1); Creatinine Clr Calc Pharmacy 70.8 ml/min; Est GFR (African American) 89.7 ml/min; Est GFR (Non-African American) 77.4 ml/min; Potassium 4.4 mmol/L (3.5-5.1)
[2022-01-28] MEDS: VANCOMYCIN HCL 750 MG in SODIUM CHLORIDE 0.9% 250 ML IV SCH ×2 (07:51→21:29)
[2022-01-28] MEDS: traMADol HCL 50 MG TABLET PO PRN ×2 (08:29→19:47)
[2022-01-28] MEDS: INSULIN GLARGINE SOLOSTAR 100 UNITS/ML 3 ML PEN SQ SCH ×2 (08:39→17:59)
[2022-01-28] MEDS: ENOXAPARIN INJ 40 MG/0.4 ML SYR SQ SCH (08:42)
[2022-01-28] MEDS: buPROPion HCl 100 MG TABLET PO SCH ×3 (08:43→21:34)
[2022-01-28] MEDS: CLOPIDOGREL BISULFATE 75 MG TAB PO SCH (08:43)
[2022-01-28] MEDS: CHOLECALCIFEROL 1,000 UNITS 25 MCG TAB PO SCH (08:43)
[2022-01-28] MEDS: ROSUVASTATIN CALCIUM 20 MG TAB PO SCH (08:44)
[2022-01-28] MEDS: GABAPENTIN 800 MG TAB PO SCH (08:44)
[2022-01-28] MEDS: METOPROLOL SUCC 25MG EXT REL TAB PO SCH (08:45)
[2022-01-28] MEDS: lisinopril 20 MG TAB PO SCH (08:45)
[2022-01-28 08:59] LABS: Estimated Average Glucose 171 mg/dl; Hemoglobin A1C 7.6 % (4.5-5.6)
[2022-01-28] MEDS: INSULIN ASPART PER UNIT SC SCH ×4 (09:31→21:04)
[2022-01-28] MEDS: SERTRALINE HCL 100 MG TABLET PO SCH (09:32)
--- NOTE | 2022-01-28 12:22 | Pharmacy Report ---
Pharmacy PK ABX Note - Date of Service January 28, 2022 - Assessment and Plan Assessment 66 year old T2DM F receiving vancomycin and cefepime for treatment of cellulitis of right foot/toe. Blood cultures pending. Patient seen in the ED on 01/26 and was discharged on keflex and bactrim. She returned the next day due to worsening symptoms. No pertinent past cx data. Day # 2 of antimicrobial therapy. Plan Vancomycin * Loading dose: 2000 mg IV X 1 (already administered) * Maintenance dose: 750 mg IV every 12 hours * Regimen is predicted to achieve target AUC/PAULA of 400-600 mg/L.hr * Trough level ordered for: 01/29/22 @0730 Pharmacy will continue to follow and will adjust dose/frequency as necessary. Thank you. Pharmacy has transitioned to AUC monitoring for vancomycin. AUC/PAULA is the preferred PK/PD target and is associated with decreased risk of nephrotoxicity compared to traditional trough targets.
--- NOTE | 2022-01-28 16:32 | Hospitalist Progress Note ---
Date of Service January 28, 2022 Assessment & Plan (1) Cellulitis of foot, right: Plan: 66-year-old female with past medical history significant for type 2 diabetes, diabetic neuropathy, hyperlipidemia, hypothyroidism, obstructive sleep apnea on CPAP, history of upper extremity venous thrombosis, history of pulmonary embolism, history of stroke, history of hypertension, female stress incontinence, history of osteoarthritis, history of fractured ribs, fracture of transverse process of lumbar vertebrae, Alzheimer dementia, depression, anxiety, recurrent falls, presented 01/27 with right lower extremity big toe infection and cellulitis. 1. Right lower extremity cellulitis and right big toe infection. 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 Associated with fever and headache. Admitting vitals fairly stable, admitting venous Doppler RLE negative for DVT. Patient empirically started on vancomycin and cefepime 01/28, continue with the same. BLE Pulse good and strong. No drainage noted on Rt great toe Continue to monitor, RLE and great toe with erythema and tenderness, WBC normal, patient afebrile, follow-up admitting 01/27 blood culture. Also there is blood Cx from 01/26 ER visit. Wound care consult. PT/OT #. Subacute fracture fifth digit proximal phalanx per 01/26/22 imaging, consult ortho, pain Mx. 2. Diabetes. Continue home long-acting insulin, place on sliding scale. Follow the blood sugars, A1c 7.6%. 3. Other chronic medical conditions: HLD, depression, HTN, hypothyroidism, 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, CVA Continue with/resume home meds as and when able. DVT prophylaxis: Lovenox Disposition: PT/OT, CM to assist with DC planning, likely will need placement for few days. Admission and Anticipated Discharge Date Admission Date: January 27, 2022 Subjective Patient seen and examined at bedside as a follow-up of RLE cellulitis and right big toe infection. Patient was lying in bed, on room air, NAD, no new acute events overnight. Patient reports ongoing pain in the right lower extremity, patient also endorses chronic dizziness due to neuropathy from diabetes per patient. Patient denies headache or palpitation or chest pain or belly pain. Patient denies acute changes in her bowel or bladder habits. Patient reports eating okay. Physical Exam Physical Exam: GENERAL: Alert and oriented x3. NAD, on RA. HEENT: No pallor, no icterus. Pupils equal, round and reactive to light. Oral mucosa moist. NECK: No JVD, no neck masses. HEART: S1 and S2 heard. Regular rate and rhythm. No murmur, no gallop. RESPIRATORY SYSTEM: Normal AP diameter. No accessory muscle use. No wheezing, no crackles. ABDOMEN: Soft, bowel sounds present, nontender, no distention. CENTRAL NERVOUS SYSTEM: No facial droop. Speech is clear. Obeys simple commands. Moves extremities. EXTREMITIES: No edema, no erythema seen. RLE mild erythema and tenderness to lower leg and foot, Rt great toe w/ erythema/swelling/tenderness. No drainage seen. Results & Data Results & Data ([facility]) Vital Signs (Past 12 Hours) Vital Signs Temp Pulse Resp BP Pulse Ox 01/28/22 14:40 80 20 138/75 98 01/28/22 09:35 76 20 145/69 H 96 01/28/22 08:00 37.0 C 75 20 147/84 H 95 01/28/22 06:33 36.7 C 72 20 147/84 H 98
[2022-01-29] MEDS: CEFEPIME 2,000 MG in SYRINGE 0 ML IV SCH ×2 (02:27→13:46)
[2022-01-29] MEDS: LEVOTHYROXINE SODIUM 125 MCG TABLET PO SCH (05:12)
[2022-01-29] MEDS ORDERED: VANCOMYCIN LEVEL ONE (07:30)
[2022-01-29] MEDS: MoRPHine SULFATE 4 MG/ML 1 ML CARP\\VIAL IV PRN ×2 (08:05→19:33)
[2022-01-29] MEDS: ROSUVASTATIN CALCIUM 20 MG TAB PO SCH (08:42)
[2022-01-29] MEDS: GABAPENTIN 800 MG TAB PO SCH (08:42)
[2022-01-29] MEDS: METOPROLOL SUCC 25MG EXT REL TAB PO SCH (08:42)
[2022-01-29] MEDS: buPROPion HCl 100 MG TABLET PO SCH ×3 (08:42→21:32)
[2022-01-29] MEDS: CLOPIDOGREL BISULFATE 75 MG TAB PO SCH (08:42)
[2022-01-29] MEDS: CHOLECALCIFEROL 1,000 UNITS 25 MCG TAB PO SCH (08:42)
[2022-01-29] MEDS: SERTRALINE HCL 100 MG TABLET PO SCH (08:42)
[2022-01-29] MEDS: lisinopril 20 MG TAB PO SCH (08:42)
[2022-01-29] MEDS: ENOXAPARIN INJ 40 MG/0.4 ML SYR SQ SCH (08:43)
[2022-01-29] MEDS: INSULIN ASPART PER UNIT SC SCH ×4 (08:53→20:57)
[2022-01-29] MEDS: INSULIN GLARGINE SOLOSTAR 100 UNITS/ML 3 ML PEN SQ SCH ×2 (08:55→17:46)
[2022-01-29 09:08] LABS: BUN Creatinine Ratio 20.3 (10-20); Calcium 9.1 mg/dl (8.5-10.1); Creatinine Clr Calc Pharmacy 76.5 ml/min; Est GFR (African American) 98.5 ml/min; Magnesium 2.1 mg/dl (1.7-2.4); Phosphorus 4.1 mg/dl (2.5-4.9); Potassium 4.4 mmol/L (3.5-5.1)
[2022-01-29 09:14] LABS: Hematocrit (blood only) 35.2 % (37-47); Mean Corpuscular Hemoglobin 30.1 pg (25-34); Mean Corpuscular Hgb Conc 34.1 g/dL (32-36); Mean Corpuscular Volume 88.2 fL (80-100); Mean Platelet Volume 9.5 fL (7.4-10.4); Platelet Count 119 K/uL (130-400); RDW Coefficient of Variation 12.7 % (11.5-14.5); RDW Standard Deviation 40.9 fL (36.4-46.3); Red Blood Count 3.99 M/uL (4.2-5.4); White Blood Count 4.87 K/uL (4.8-10.8)
--- NOTE | 2022-01-29 09:48 | Pharmacy Report ---
Pharmacy PK ABX Note - Date of Service January 29, 2022 - Assessment and Plan Assessment 01/29: Per [facility] Vanc level this morning indicates regimen will fall below goal AUC at steady state. Will increase dose. 01/28: 66 year old T2DM F receiving vancomycin and cefepime for treatment of cellulitis of right foot/toe. Blood cultures pending. Patient seen in the ED on 01/26 and was discharged on keflex and bactrim. She returned the next day due to worsening symptoms. No pertinent past cx data. Day # 2 of antimicrobial therapy. Plan Vancomycin * Maintenance dose: increase to 1000 mg IV every 12 hours * Regimen is predicted to achieve target AUC/PAULA of 400-600 mg/L.hr * Trough level ordered for: 01/31 @0930 Pharmacy will continue to follow and will adjust dose/frequency as necessary. Thank you. Pharmacy has transitioned to AUC monitoring for vancomycin. AUC/PAULA is the preferred PK/PD target and is associated with decreased risk of nephrotoxicity compared to traditional trough targets.
[2022-01-29] MEDS: VANCOMYCIN HCL 1,000 MG in SODIUM CHLORIDE 0.9% 250 ML IV SCH ×2 (10:32→21:34)
--- NOTE | 2022-01-29 15:08 | Consultation Report ---
DATE OF CONSULTATION: 01/29/2022 HISTORY OF PRESENT ILLNESS: This is a 66-year-old female seen at request of Dr. Doe and Dr. Gallegos regarding a right fifth toe proximal phalanx fracture and cellulitis of the great toe. This is a 66- year-old female with a complicated medical history including diabetes mellitus type 2 and diabetic ne uropathy, who presented with a blister on her right big toe for the last 2 weeks. She presented to [facility] ER for evaluation initially on 01/26/2022. She was sent home. She returned on 01/27/2022 after K eflex and oral Bactrim and failed to show improvement. The patient admitted to the hospitalist tatiana mullins for IV antibiotics and while being treated for cellulitis of the great toe, which seems to be impr oving somewhat, routine radiographs demonstrated new finding of right fifth proximal phalanx fracture . Orthopedics was consulted for the combination of problems. PAST MEDICAL HISTORY: Type 2 diabetes mellitus with neuropathy, hyperlipidemia, hypothyroidism, obst ructive sleep apnea, upper extremity venous thrombosis, pulmonary embolism, stroke, hypertension, str ess incontinence, osteoarthritis, fractured ribs, transverse process lumbar vertebral fracture, Alzhe mee dementia, depression, anxiety, recurrent falls and cellulitis. PAST SURGICAL HISTORY: Adhesions to small bowel resection, biopsy of left breast mass, cataract surge ry, colonoscopy, colonoscopy with biopsy and dilatation and curettage, left knee arthroscopy, ligatio n of oviducts, partial hysterectomy, removal of both ovaries, total abdominal hysterectomy. ALLERGIES: ADHESIVES, IODINATED CONTRAST MEDIA, LATEX, PENICILLIN, HEPATITIS B VIRUS, ANESTHETICS, K ETOROLAC, TROMETHAMINE AND ASPIRIN. MEDICATIONS: Please note the extensive list in the medical record. SOCIAL HISTORY: She is . She denies tobacco. She denies drug use. She uses alcohol rarely. She lives with her spouse. PHYSICAL EXAMINATION: This is a 66-year-old female, lying supine in hospital bed. Her is pr esent at bedside. She is alert and oriented x3. Speech clear and fluent. Affect is appropriate. Focused examination of the right lower extremity demonstrates a cracking with dried blood with a heal ing eschar and ulcer on the dorsum of the right great toe, appears to be skin wrinkles present indica ting decrease in edema. She has limited sensation in the great toe. There is minimal, if any cellul itis proximal. Dorsalis pedis and posterior tibial pulses are 2/4 and symmetric in bilateral upper e xtremities. Examination of the fifth toe demonstrates minimal tenderness to palpation over the proxi mal phalanx of right fifth toe and local edema, which is minimal. She has minimal pain with palpatio n due to neuropathy. She has bilateral stocking distribution neuropathy. Radiographs were reviewed, demonstrate an indeterminate age fracture of the proximal phalanx of the r ight great toe with periosteal reaction and stable alignment. She also noted to have soft tissue swe lling around the right great toe with no evidence of osteomyelitis. No focal erosions appreciated. Laboratories reviewed. IMPRESSION: 1. Right fifth toe proximal phalanx fracture of indeterminate age. Stable alignment, nonoperative. 2. Cellulitis of great toe, right foot, improving with IV antibiotics. RECOMMENDATION: Continue conservative management of right fifth toe proximal phalanx fracture, may b uddy tape the fourth and fifth toes together, if any discomfort arises. Continue IV antibiotics for cellulitis of the right great toe with transition to oral antibiotics and follow up p.r.n. as an [facility]. Thank you for the opportunity to consult in the care of this patient. Job ID: [id number]
--- NOTE | 2022-01-29 16:48 | Hospitalist Progress Note ---
Date of Service January 29, 2022 Assessment & Plan (1) Cellulitis of foot, right: Plan: 66-year-old female with past medical history significant for type 2 diabetes, diabetic neuropathy, hyperlipidemia, hypothyroidism, obstructive sleep apnea on CPAP, history of upper extremity venous thrombosis, history of pulmonary embolism, history of stroke, history of hypertension, female stress incontinence, history of osteoarthritis, history of fractured ribs, fracture of transverse process of lumbar vertebrae, Alzheimer dementia, depression, anxiety, recurrent falls, presented 01/27 with right lower extremity big toe infection and cellulitis. 1. Right lower extremity cellulitis and right big toe infection. Patient reports having blister on her right great toe for the last 2 weeks [employer] associated with pain, not getting better, started on oral antibiotic with no improvement/progressive worsening. Associated with fever and headache. Admitting vitals fairly stable, admitting venous Doppler RLE negative for DVT. Patient empirically started on vancomycin and cefepime 01/28, continue with the same. BLE Pulse good and strong. No drainage noted on Rt great toe. RLE erythema/swelling/tenderness improving. WBC normal, patient afebrile, follow-up admitting 01/27 blood culture. Also there is blood Cx from 01/26 ER visit. Wound care consult. PT/OT #. Subacute fracture fifth digit proximal phalanx per 01/26/22 imaging, consult ortho --> conservative management, ?? Chidi tape, pain Mx. 2. Diabetes. Continue home long-acting insulin, place on sliding scale. Follow the blood sugars, A1c 7.6%. 3. Other chronic medical conditions: HLD, depression, HTN, hypothyroidism, 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, CVA Continue with/resume home meds as and when able. DVT prophylaxis: Lovenox Disposition: PT/OT, CM to assist with DC planning, likely will need placement for few days. Admission and Anticipated Discharge Date Admission Date: January 27, 2022 Subjective Patient seen and examined at bedside as a follow-up of RLE cellulitis and right big toe infection. Patient was lying in bed, on room air, NAD, no new acute events overnight. Patient reports improving pain/swelling and redness of her lower extremity x right. Patient denies headache or palpitation or chest pain or belly pain. Patient denies acute changes in her bowel or bladder habits. Patient reports eating okay. Patient endorses chronic dizziness due to neuropathy from diabetes. Physical Exam Physical Exam: GENERAL: Alert and oriented x3. NAD, on RA. HEENT: No pallor, no icterus. Pupils equal, round and reactive to light. Oral mucosa moist. NECK: No JVD, no neck masses. HEART: S1 and S2 heard. Regular rate and rhythm. No murmur, no gallop. RESPIRATORY SYSTEM: Normal AP diameter. No accessory muscle use. No wheezing, no crackles. ABDOMEN: Soft, bowel sounds present, nontender, no distention. CENTRAL NERVOUS SYSTEM: No facial droop. Speech is clear. Obeys simple commands. Moves extremities. EXTREMITIES: No edema, no erythema seen. RLE mild erythema and tenderness to lower leg and foot, Rt great toe w/ erythema/swelling/tenderness-->improving. No drainage seen. Results & Data Results & Data ([facility]) Vital Signs (Past 12 Hours) Vital Signs Temp Pulse Resp BP Pulse Ox 01/29/22 15:52 36.7 C 76 18 152/81 H 96 01/29/22 07:44 36.7 C 78 18 169/84 H 99
[2022-01-29] MEDS: VANCOMYCIN HCL 750 MG in SODIUM CHLORIDE 0.9% 250 ML IV SCH (20:57)
[2022-01-30] MEDS: CEFEPIME 2,000 MG in SYRINGE 0 ML IV SCH ×2 (03:08→14:47)
[2022-01-30 07:04] LABS: Hematocrit (blood only) 37.8 % (37-47); Hemoglobin 12.8 g/dL (12.0-16.0); Mean Corpuscular Hemoglobin 30.8 pg (25-34); Mean Corpuscular Hgb Conc 33.9 g/dL (32-36); Mean Corpuscular Volume 90.9 fL (80-100); Mean Platelet Volume 9.5 fL (7.4-10.4); Platelet Count 128 K/uL (130-400); RDW Coefficient of Variation 12.7 % (11.5-14.5); RDW Standard Deviation 42.3 fL (36.4-46.3); Red Blood Count 4.16 M/uL (4.2-5.4)
[2022-01-30] MEDS: LEVOTHYROXINE SODIUM 125 MCG TABLET PO SCH (07:23)
[2022-01-30] MEDS: lisinopril 20 MG TAB PO SCH (09:15)
[2022-01-30] MEDS: GABAPENTIN 800 MG TAB PO SCH (09:15)
[2022-01-30] MEDS: METOPROLOL SUCC 25MG EXT REL TAB PO SCH (09:15)
[2022-01-30] MEDS: CHOLECALCIFEROL 1,000 UNITS 25 MCG TAB PO SCH (09:16)
[2022-01-30] MEDS: buPROPion HCl 100 MG TABLET PO SCH ×3 (09:16→19:47)
[2022-01-30] MEDS: CLOPIDOGREL BISULFATE 75 MG TAB PO SCH (09:16)
[2022-01-30] MEDS: INSULIN GLARGINE SOLOSTAR 100 UNITS/ML 3 ML PEN SQ SCH ×2 (09:18→18:40)
[2022-01-30] MEDS: INSULIN ASPART PER UNIT SC SCH ×4 (09:35→22:19)
[2022-01-30] MEDS: ROSUVASTATIN CALCIUM 20 MG TAB PO SCH (09:35)
[2022-01-30] MEDS: SERTRALINE HCL 100 MG TABLET PO SCH (09:36)
[2022-01-30] MEDS: VANCOMYCIN HCL 1,000 MG in SODIUM CHLORIDE 0.9% 250 ML IV SCH ×2 (10:15→23:01)
[2022-01-30] MEDS: MoRPHine SULFATE 4 MG/ML 1 ML CARP\\VIAL IV PRN (12:01)
[2022-01-30] MEDS: ENOXAPARIN INJ 40 MG/0.4 ML SYR SQ SCH (12:01)
--- NOTE | 2022-01-30 16:56 | Hospitalist Progress Note ---
Date of Service January 30, 2022 Assessment & Plan (1) Cellulitis of foot, right: Plan: 66-year-old female with past medical history significant for type 2 diabetes, diabetic neuropathy, hyperlipidemia, hypothyroidism, obstructive sleep apnea on CPAP, history of upper extremity venous thrombosis, history of pulmonary embolism, history of stroke, history of hypertension, female stress incontinence, history of osteoarthritis, history of fractured ribs, fracture of transverse process of lumbar vertebrae, Alzheimer dementia, depression, anxiety, recurrent falls, presented 01/27 with right lower extremity big toe infection and cellulitis. 1. Right lower extremity cellulitis and right big toe infection. 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 Associated with fever and headache. Admitting vitals fairly stable, admitting venous Doppler RLE negative for DVT. Patient empirically started on vancomycin and cefepime 01/28, continue with the same. BLE Pulse good and strong. No drainage noted on Rt great toe. RLE erythema/swelling/tenderness improving. WBC normal, patient afebrile, follow-up admitting 01/27 blood culture. Also there is blood Cx from 01/26 ER visit. Negative growth on both so far. Wound care consult. PT/OT. Will transition to oral antibiotics upon discharge likely in next 1 to 2 days. Get Rt ankle XR. #. Subacute fracture fifth digit proximal phalanx per 01/26/22 imaging, consult ortho --> conservative management, ?? Chidi tape, pain Mx. 2. Diabetes. Continue home long-acting insulin, place on sliding scale. Follow the blood sugars, A1c 7.6%. 3. Other chronic medical conditions: HLD, depression, HTN, hypothyroidism, 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, CVA Continue with/resume home meds as and when able. DVT prophylaxis: Lovenox Disposition: PT/OT, CM to assist with DC planning, likely DC in next 1 to 2 days. Admission and Anticipated Discharge Date Admission Date: January 27, 2022 Subjective Patient seen and examined at bedside as a follow-up of RLE cellulitis and right big toe infection. Patient was lying in bed, on room air, NAD, no new acute events overnight. Patient reports improving pain/swelling and redness of her lower extremity x right but has continued pain at Rt ankle, will get XR. Patient denies headache or palpitation or chest pain or belly pain. Patient denies acute changes in her bowel or bladder habits. Patient reports eating okay. Patient endorses chronic dizziness due to neuropathy from diabetes. Physical Exam Physical Exam: GENERAL: Alert and oriented x3. NAD, on RA. HEENT: No pallor, no icterus. Pupils equal, round and reactive to light. Oral mucosa moist. NECK: No JVD, no neck masses. HEART: S1 and S2 heard. Regular rate and rhythm. No murmur, no gallop. RESPIRATORY SYSTEM: Normal AP diameter. No accessory muscle use. No wheezing, no crackles. ABDOMEN: Soft, bowel sounds present, nontender, no distention. CENTRAL NERVOUS SYSTEM: No facial droop. Speech is clear. Obeys simple commands. Moves extremities. EXTREMITIES: No edema, no erythema seen. RLE mild erythema and tenderness to lower leg and foot, Rt great toe w/ erythema/swelling/tenderness-->improving. No drainage seen. Results & Data Results & Data ([facility]) Vital Signs (Past 12 Hours) Vital Signs Temp Pulse Resp BP Pulse Ox 01/30/22 15:47 36.4 C L 76 16 167/67 H 100 01/30/22 07:57 36.5 C 71 16 148/75 H 97
[2022-01-30] MEDS ORDERED: INSULIN GLARGINE SOLOSTAR 100 UNITS/ML 3 ML PEN SC STA (18:38)
[2022-01-30] MEDS: SENNA 8.6 MG TAB PO SCH (18:42)
[2022-01-30] MEDS: traMADol HCL 50 MG TABLET PO PRN (19:46)
[2022-01-30] MEDS ORDERED: MELATONIN 3 MG TAB PO SCH (21:00)
[2022-01-31] MEDS: CEFEPIME 2,000 MG in SYRINGE 0 ML IV SCH ×2 (02:30→13:42)
[2022-01-31] MEDS: LEVOTHYROXINE SODIUM 125 MCG TABLET PO SCH (06:30)
--- NOTE | 2022-01-31 06:50 | XRay Report ---
XR ankle RT min 3V routine HISTORY: 66 years-old Female rt ankle pain, RLE cellulitis acute pain and swelling of the right ankl e COMPARISON: Right foot radiographs 01/26/2022 TECHNIQUE: 3 views of the right ankle FINDINGS: Mild diffuse soft tissue prominence. Demineralized appearance of the bones. Minimal osteoarthritis of the foot and ankle with degenerative spurring of the calcaneus. No acute fracture, dislocation or os teochondral defect. Arterial calcifications. IMPRESSION: No acute fracture. ACT 112: Negative or not required by law. The above report was generated using voice recognition software. It may contain grammatical, syntax o r spelling errors. Electronically signed by: Albaro Pedersen M.D. 01/31/2022 6:48 AM
[2022-01-31] MEDS: INSULIN ASPART PER UNIT SC SCH ×3 (08:52→18:00)
[2022-01-31] MEDS: INSULIN GLARGINE SOLOSTAR 100 UNITS/ML 3 ML PEN SQ SCH ×2 (08:54→18:24)
[2022-01-31] MEDS: SENNA 8.6 MG TAB PO SCH (08:59)
[2022-01-31] MEDS: ENOXAPARIN INJ 40 MG/0.4 ML SYR SQ SCH (08:59)
[2022-01-31] MEDS: buPROPion HCl 100 MG TABLET PO SCH ×2 (09:00→13:42)
[2022-01-31] MEDS: CHOLECALCIFEROL 1,000 UNITS 25 MCG TAB PO SCH (09:00)
[2022-01-31] MEDS: GABAPENTIN 800 MG TAB PO SCH (09:00)
[2022-01-31] MEDS: lisinopril 20 MG TAB PO SCH (09:00)
[2022-01-31] MEDS: SERTRALINE HCL 100 MG TABLET PO SCH (09:00)
[2022-01-31] MEDS: METOPROLOL SUCC 25MG EXT REL TAB PO SCH (09:00)
[2022-01-31] MEDS: ROSUVASTATIN CALCIUM 20 MG TAB PO SCH (09:01)
[2022-01-31] MEDS: CLOPIDOGREL BISULFATE 75 MG TAB PO SCH (09:01)
[2022-01-31] MEDS ORDERED: VANCOMYCIN LEVEL ONE (09:30)
[2022-01-31 09:40] LABS: Hematocrit (blood only) 35.7 % (37-47); Hemoglobin 11.9 g/dL (12.0-16.0); Mean Corpuscular Hemoglobin 29.7 pg (25-34); Mean Corpuscular Hgb Conc 33.3 g/dL (32-36); RDW Standard Deviation 41.5 fL (36.4-46.3); Red Blood Count 4.01 M/uL (4.2-5.4); White Blood Count 5.33 K/uL (4.8-10.8)
[2022-01-31 09:41] LABS: RDW Coefficient of Variation 12.9 % (11.5-14.5)
[2022-01-31 09:43] LABS: BUN Creatinine Ratio 27.3 (10-20); Calcium 9.4 mg/dl (8.5-10.1); Creatinine Clr Calc Pharmacy 85.8 ml/min; Est GFR (African American) 107.4 ml/min; Est GFR (Non-African American) 92.7 ml/min; Magnesium 2.1 mg/dl (1.7-2.4); Phosphorus 4.3 mg/dl (2.5-4.9); Potassium 4.5 mmol/L (3.5-5.1)
[2022-01-31 09:45] LABS: Mean Platelet Volume 9.4 fL (7.4-10.4); Platelet Count 99 K/uL (130-400); Platelet Estimate Decreased (Normal)
[2022-01-31] MEDS: VANCOMYCIN HCL 1,000 MG in SODIUM CHLORIDE 0.9% 250 ML IV SCH (09:50)
--- NOTE | 2022-01-31 09:53 | Pharmacy Report ---
Pharmacy Vanc AUC Short Note - Date of Service January 31, 2022 - Assessment & Plan Assessment 66 year old T2DM F receiving vancomycin and cefepime for treatment of cellulitis of right foot/toe. Cultures negative thus far. Day # 5 of antimicrobial therapy. Plan Vancomycin * AUC/PAULA is the preferred PK/PD target for vancomycin * AUC guided dosing is effective and associated with decreased risk of nephrotoxicity compared to traditional trough targets * Trough level came back at ~14 mcg/ml - this is associated with a AUC/PAULA 400- 600 mg/L.hr. Therefore, plan to continue current vancomycin regimen for now * Plan to redraw level in next 48-72 hours if continued Pharmacy will continue to follow and will adjust dose/frequency as necessary. Thank you.
[2022-01-31] MEDS: traMADol HCL 50 MG TABLET PO PRN (09:57)
[2022-01-31 14:30] VITALS: PULSE 73; TEMP 97.9; O2SAT 95
--- NOTE | 2022-01-31 18:07 | Discharge Summary ---
Date of Service January 31, 2022 Admission HPI Per Admitting Provider DATE OF ADMISSION: 01/27/2022. CHIEF COMPLAINT: Right lower extremity cellulitis and right big toe infection. HISTORY OF PRESENT ILLNESS: A 66-year-old female with past medical history significant for type 2 diabetes, diabetic neuropathy, hyperlipidemia, hypothyroidism, obstructive sleep apnea on CPAP, history of upper extremity venous thrombosis, history of pulmonary embolism, history of stroke, history of hypertension, female stress incontinence, history of osteoarthritis, history of fractured ribs, fracture of transverse process of lumbar vertebrae, Alzheimer dementia, depression, anxiety,recurrent falls, presents with right lower extremity big toe infection and cellulitis. The patient says she had blister on her right big toe for last 2 weeks and applied some ointments, but is not getting better, lot of pain. She came to the ER yesterday, she was given a dose of Rocephin. She was doing okay and as the patient was wanted to go home, she was discharged on Keflex and Bactrim and advised to come to the ER if things getting worse. The patient is continued to have lot of pain at the right big toe, not getting better, she came to the hospital. She had fever a couple of days ago. She says every day she has headaches. Has some blurred visions. No earache, no runny nose, no sore throat, no cough, no chest pain. She gets a little bit shortness of breath with exertion, which is chronic. No nausea, no abdominal pain. She had some diarrhea a few days back. Stools are always black greenish. Normal bladder movements. She says that since last 1 month she has abdominal pain after eating food. ALLERGIES: ADHESIVES, IODINATED CONTRAST MEDIA, LATEX, PENICILLIN, HEPATITIS B VIRUS, ANESTHETICS, KETOROLAC,TROMETHAMINE, ASPIRIN PAST MEDICAL HISTORY: As mentioned above. PAST SURGICAL HISTORY: Multiple. Adhesions removed from small bowel, biopsy of left breast mass, cataract surgery, colonoscopy, colonoscopy with biopsy, dilatation and curettage, left knee arthroscopy, laparoscopic surgical adhesions, ligation of oviducts, partial hysterectomy, removal of both ovaries, total abdominal hysterectomy with removal of tubes. MEDICATIONS: The patient is on bupropion 100 mg p.o. daily, Keflex 500 mg p.o. q. 6 hours for 10 days, vitamin D 2000 units p.o. daily, Plavix 75 mg p.o. daily, dicyclomine 20 mg p.o. t.i.d. p.r.n., Colace 100 mg p.o. b.i.d. p.r.n. Trulicity 3 mg subcutaneous weekly, gabapentin 800 mg p.o. a.m., insulin glargine 46 units subcutaneous b.i.d. with meals, Humalog 30 units subcutaneous with meals t.i.d., levothyroxine 125 mcg p.o. daily, lisinopril 20 mg p.o. daily, metoprolol succinate 25 mg p.o. q.a.m., oxycodone 5 mg p.o. q. 6 hours p.r.n., MiraLax 17 g p.o. daily p.r.n., lovastatin 20 mg p.o. daily, Zoloft 200 mg p.o. a.m., Bactrim-DS 1 tablet p.o. b.i.d., tramadol 50 mg p.o. q. 6 hours p.r.n. FAMILY HISTORY: Significant for father had lung cancer. Sister has stomach cancer. Aunt has diabetes. Mother diabetes. SOCIAL HISTORY: . No smoking, alcohol rare, no drug use. REVIEW OF SYSTEMS: As per HPI. Rest of the review of systems is negative. Admission Exam Per Admitting Provider GENERAL: The patient is of moderate build, not in acute distress. VITAL SIGNS: Temperature 36.3, pulse 77, respiratory rate 18, blood pressure 163/95, oxygen 94% on room air. HEENT: Pupils equal, round and reactive to light. Oral mucosa moist. LUNGS: No JVD, no neck masses. CARDIOVASCULAR: S1 and S2 heard. Regular rate and rhythm. No murmur, no gallop. RESPIRATORY SYSTEM: Normal AP diameter. No accessory muscle use. No wheezing, no crackles. ABDOMEN: Soft. Bowel sounds are present, nontender, no distention. CENTRAL NERVOUS SYSTEM: Cranial nerves II-XII grossly intact, nonfocal. EXTREMITIES: Right lower extremity cellulitis. Right lower extremity is erythematous and swollen and tender until below the knee and also right big toe is erythematous and swollen. No active drainage seen. Principal Diagnosis RLE cellulitis and right big toe infection Subacute fracture fifth digit proximal phalanx Discharge Exam GENERAL: Alert and oriented x3. NAD, on RA. HEENT: No pallor, no icterus. Pupils equal, round and reactive to light. Oral mucosa moist. NECK: No JVD, no neck masses. HEART: S1 and S2 heard. Regular rate and rhythm. No murmur, no gallop. RESPIRATORY SYSTEM: Normal AP diameter. No accessory muscle use. No wheezing, no crackles. ABDOMEN: Soft, bowel sounds present, nontender, no distention. CENTRAL NERVOUS SYSTEM: No facial droop. Speech is clear. Obeys simple commands. Moves extremities. EXTREMITIES: No edema, no erythema seen. RLE erythema/swelling improved, Rt great toe w/ erythema/swelling/tenderness-->improved. No drainage seen. ruptured blister noted. Discharge Data Allergies Allergy/AdvReac Type Severity Reaction Status Date / Time adhesive Allergy Intermediate RASH Verified 01/27/22 19:38 Iodinated Contrast Media Allergy Intermediate burning Verified 01/27/22 19:38 and aching in veins latex Allergy Intermediate RASH Verified 01/27/22 19:38 Penicillins Allergy Intermediate n/v, rash Verified 01/27/22 19:38 hepatitis B virus vaccine Allergy Unknown Unknown Verified 01/27/22 19:38 Anesthetics - Amide Type - AdvReac Intermediate Vomiting Verified 01/27/22 19:38 Select A [Anesthetics - Amide Type] Anesthetics - Juju Type- AdvReac Intermediate Vomiting Verified 01/27/22 19:38 Parabens ketorolac AdvReac Intermediate ITCHING. Verified 01/27/22 19:38 tromethamine AdvReac Intermediate ITCHING. Verified 01/27/22 19:38 aspirin AdvReac Unknown CONTRAINDICATED---currently Verified 01/27/22 19:38 with gastric ulcer, per pt Consultations 01/27/22 22:02 ED Decision to Admit Stat 01/28/22 16:31 Consult Orthopedic Surgery Routine Ordered Studies 01/28/22 02:05 US venous doppler LE RT Urgent Hospital Course (1) Cellulitis of foot, right: 66-year-old female with past medical history significant for type 2 diabetes, diabetic neuropathy, hyperlipidemia, hypothyroidism, obstructive sleep apnea on CPAP, history of upper extremity venous thrombosis, history of pulmonary embolism, history of stroke, history of hypertension, female stress incontinence, history of osteoarthritis, history of fractured ribs, fracture of transverse process of lumbar vertebrae, Alzheimer dementia, depression, anxiety, recurrent falls, presented 01/27 with right lower extremity big toe infection and cellulitis. She was managed for the followin. Right lower extremity cellulitis and right big toe infection. Patient reports having blister on her right great toe for the last 2 weeks [employer] a ssociated with pain, not getting better, started on oral antibiotic with no improvement/progressive worsening. Associated with fever and headache. Admitting vitals fairly stable, admitting venous Doppler RLE negative for DVT. Patient empirically started on vancomycin and cefepime 01/28, --> Cefdinir and doxy on dc BLE Pulse good and strong. No drainage noted on Rt great toe. RLE erythema/swelling/tenderness improved. WBC normal, patient afebrile, follow-up admitting 01/27 blood culture. Also there is blood Cx from 01/26 ER visit. Negative growth on both so far. Wound care consult. Rt ankle XR w/ no acute finding, Ortho evaled 01/31 (d/w ortho 01/31) -- "negative for ankle injury/problems." #. Subacute fracture fifth digit proximal phalanx per 01/26/22 imaging, consult ortho --> conservative management, ?? Chidi tape, pain Mx. 2. Diabetes. Continue home long-acting insulin, place on sliding scale. Follow the blood sugars, A1c 7.6%. 3. Other chronic medical conditions: HLD, depression, HTN, hypothyroidism, 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, CVA Continue with/resume home meds as and when able. DVT prophylaxis: Lovenox Disposition: PT/OT, CM to assist with DC planning, likely DC in next 1 to 2 days. Patient being discharged home with following instruction at the point of discharge: Follow-up with your primary care physician within a week time. You are being discharged on antibiotic for 11 more days, probiotics will be added.. Get your blood work CBC and CMP done in a week time and have the results forwarded to your primary care physician. Take your medications as prescribed. Total Time Total Time Spent Total Time Spent (In Minutes): 35 Discharge Plan Discharge Items Patient Disposition: Home - Self-Care Reason For Visit: RIGHT FOOT PAIN Discharge Diagnosis: RLE cellulitis and right big toe infection Subacute fracture fifth digit proximal phalanx Activity: Resume your previous activity Non-emergency contact: Primary Care Provider Call non-emergency contact if: you have any medication questions, your symptoms worsen, your pain is not controlled and your temperature is above 101 Follow-up/Referrals: Adria Hilliard MD [Primary Care Provider] - Diet: Carb Consistent or DM2 and Heart Healthy Addtl Attending Provider Instructions: Follow-up with your primary care physician within a week time. You are being discharged on antibiotic for 11 more days, probiotics will be added.. Get your blood work CBC and CMP done in a week time and have the results forwarded to your primary care physician. Take your medications as prescribed. Pending Studies at Discharge: Yes (01/26 and 01/27 blood culture.) Stand-Alone Forms: My [facility] [employer], Smoking Cessation Medications and DC Order Prescriptions: New cefdinir 300 mg capsule 300 mg PO BID 11 Days Qty: 22 RF: 0 doxycycline hyclate 100 mg tablet 100 mg PO BID 11 Days Qty: 22 RF: 0 Probiotic 3 billion cell capsule 3,000 mmu cells PO DAILY 14 Days Qty: 14 RF: 0 Continued sertraline 100 mg Tablet 200 mg PO QAM Qty: 0 RF: 0 lisinopril 20 mg Tablet 20 mg PO QAM Qty: 0 RF: 0 gabapentin 800 mg Tablet 800 mg PO QAM Qty: 0 RF: 0 metoprolol succinate [Toprol XL] 25 mg Tablet Extended Release 24 Hr 25 mg PO QAM Qty: 0 RF: 0 clopidogrel 75 mg Tablet 75 mg PO QAM Qty: 0 RF: 0 polyethylene glycol 3350 [Miralax] 17 gram Powder In Packet 17 g PO DAILY PRN (Reason: Constipation) RF: 0 docusate sodium 100 mg Tablet 100 mg PO BID PRN (Reason: Constipation) RF: 0 cholecalciferol (vitamin D3) 1,000 unit Tablet 1,000 unit PO QAM RF: 0 bupropion HCl 100 mg Tablet 100 mg PO TID RF: 0 levothyroxine 125 mcg Tablet 125 mcg PO DAILYBB RF: 0 insulin lispro [Humalog KwikPen Insulin] 100 unit/mL Insulin Pen 10 unit SUBCUT TIDM RF: 0 insulin glargine [Basaglar KwikPen U-100 Insulin] 100 unit/mL (3 mL) Insulin Pen 46 unit SUBCUT BIDM RF: 0 dicyclomine 20 mg tablet 20 mg PO TID PRN (Reason: abdominal pain) Qty: 9 RF: 0 tramadol 50 mg tablet 50 mg PO Q6H PRN (Reason: pain) Qty: 10 RF: 0 rosuvastatin 20 mg tablet 20 mg PO DAILY RF: 0 Trulicity 3 mg/0.5 mL pen injector 3 mg SUBCUT WK RF: 0 oxycodone 5 mg tablet 5 mg PO Q6H PRN (Reason: pain) Qty: 15 RF: 0 Discontinued cephalexin 500 mg capsule 500 mg PO Q6H 10 Days Qty: 40 RF: 0 sulfamethoxazole-trimethoprim [Bactrim DS] 800-160 mg tablet 1 tab PO BID 10 Days Qty: 20 RF: 0 Discharge Orders: Discharge Order (Routine); Ordered 01/31/22 Ordered By: Sunny Tilley/Other Patient Handouts: Nutrition for Wound Healing, Managing Type 2 Diabetes Admission Data Admit Date/Time: 01/27/22 23:58 Attending Provider: Sunny Gallegos Admit Provider: Kamran Doe Primary Care Provider: Adria Hilliard Other Providers: Kamran Doe ; Ochoa Murcia
[2022-01-31 18:10] VITALS: BP 128/62
== END 2022-01-31 19:15 | disposition home or self-care (01) | DRG 603 ==
LOC: ED 16:25 → EDINP 23:58 → 3N 01-28 02:05

== ENCOUNTER 2022-05-25 19:11 | Inpatient (IN) ==
[2022-05-25] MEDS ORDERED: ACETAMINOPHEN 500 MG TAB PO STA (21:17)
[2022-05-25 21:59] LABS: Partial Thromboplastin Ratio 0.8; Partial Thromboplastin Time 22.7 Seconds (21.0-31.0)
[2022-05-25 22:02] LABS: Albumin Globulin Ratio 1.3 (0.9-2); Albumin Level 4.3 gm/dl (3.4-5.0); BUN Creatinine Ratio 19.7 (10-20); Bilirubin,Total 0.5 mg/dl (0.2-1.0); Calcium 9.8 mg/dl (8.5-10.1); Creatinine Clr Calc Pharmacy 81.2 ml/min; Est GFR (African American) 106.7 ml/min; Est GFR (Non-African American) 92.1 ml/min; Globulin 3.2 gm/dl (2.5-4.0); Total Protein 7.5 gm/dl (6.0-8.3)
[2022-05-25 22:25] LABS: Basophils # (auto) 0.03 K/uL (0-0.2); Basophils % (auto) 0.5 %; Eosinophils # (auto) 0.05 K/uL (0-0.50); Eosinophils % (auto) 0.9 %; Hematocrit (blood only) 33.8 % (34.1-44.9); Hemoglobin 11.8 g/dl (12.0-16.0); Immature Granulocytes # (auto) 0.01 K/uL (0.00-0.02); Immature Granulocytes % (auto) 0.2 %; Lymphocytes # (auto) 1.51 K/uL (1.2-3.4); Lymphocytes % (auto) 27.5 %; Mean Corpuscular Hemoglobin 30.8 pg (25.0-34.0); Mean Corpuscular Hgb Conc 34.9 g/dL (32.0-36.0); Mean Corpuscular Volume 88.3 fL (80.0-100.0); Mean Platelet Volume 9.5 fL (9.4-12.3); Monocytes % (auto) 5.5 %; Neutrophils # (auto) 3.59 K/uL (1.4-6.5); Neutrophils % (auto) 65.4 %; Platelet Count 95 K/uL (130-400); Platelet Estimate Decreased (Normal); RDW Coefficient of Variation 12.3 % (11.5-14.5); RDW Standard Deviation 39.5 fL (36.4-46.3); Red Blood Count 3.83 M/uL (3.93-5.22); White Blood Count 5.49 K/ul (4.8-10.8)
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
[2022-05-25] MEDS ORDERED: fentaNYL citrate 100 MCG/2 ML VIAL IV STA (22:54)
[2022-05-26] MEDS ORDERED: MoRPHine SULFATE 2 MG/ML CARP IV STA (00:09)
[2022-05-26] MEDS ORDERED: ONDANSETRON INJ 2 MG/ML 2 ML VIAL IV STA (00:09)
[2022-05-26] MEDS ORDERED: oxyCODONE HCL IR 5 MG TAB (IMMEDIATE RELEASE) PO PRN (02:24)
[2022-05-26] MEDS ORDERED: POLYETHYLENE (MIRALAX) 17 GM PACK PO PRN (02:24)
[2022-05-26] MEDS ORDERED: ACETAMINOPHEN 325 MG TAB PO PRN (02:24)
[2022-05-26] MEDS ORDERED: VANCOMYCIN CONSULT ACTIVE PRN (02:24)
[2022-05-26] MEDS ORDERED: DOCUSATE SODIUM 100 MG CAP PO PRN (02:40)
[2022-05-26] MEDS ORDERED: GLUCAGON FOR INJ 1 MG VIAL IM PRN (02:45)
[2022-05-26] MEDS ORDERED: DEXTROSE 50% 50 ML SYRINGE IV PRN (02:45)
[2022-05-26] MEDS ORDERED: GLUCOSE 40% GEL 15 GM TUBE PO PRN (02:45)
[2022-05-26] MEDS ORDERED: GLUCOSE 10 TAB/TUBE PO PRN (02:45)
[2022-05-26] MEDS ORDERED: CARBOHYDRATES FOR HYPOGLYCEMIA PO PRN (02:45)
[2022-05-26] MEDS ORDERED: VANCOMYCIN HCL 1,500 MG in SODIUM CHLORIDE 0.9% 500 ML IV ONE (03:00)
[2022-05-26] MEDS ORDERED: ERTAPENEM SODIUM 1,000 MG in SYRINGE 0 ML IV SCH (03:00)
--- NOTE | 2022-05-26 03:59 | Pharmacy Report ---
Pharmacy PK ABX Note - Date of Service May 26, 2022 - Assessment and Plan Assessment 67 year old F receiving Vancomycin/Ertapenem for treatment of R great toe/foot cellulitis. Rec'd Dalvance 1500mg IV x 1 on 05/22/22, however patient reports no improvement/worsening of symptoms. Day # 1 of antimicrobial therapy. Plan Vancomycin * Loading dose: 1500mg IV x 1 * Maintenance dose: 1000mg IV every 12 hours * Regimen is predicted to achieve target AUC/PAULA of 400-600 mg/L.hr * Trough level ordered for: 05/28/22 @ 0200. Pharmacy will continue to follow and will adjust dose/frequency as necessary. Thank you. Pharmacy has transitioned to AUC monitoring for vancomycin. AUC/PAULA is the preferred PK/PD target and is associated with decreased risk of nephrotoxicity compared to traditional trough targets.
--- NOTE | 2022-05-26 04:16 | History and Physical Report ---
DATE OF ADMISSION: 05/26/2022. CHIEF COMPLAINT: Nonhealing right big toe diabetic foot ulcer. HISTORY OF PRESENT ILLNESS: This is a 67-year-old female with a past medical history significant for type 2 diabetes, diabetic neuropathy, hyperlipidemia, hypothyroidism, obstructive sleep apnea, on CPAP, history of upper extremity venous thrombosis, history of pulmonary embolism, history of stroke, history of hypertension, history of female stress incontinence, history of osteoarthritis, history of fractured ribs, fracture of transverse process of lumbar vertebrae,history of depression, anxiety, recurrent falls, presents with nonhealing right toe wound. The patient has right lower extremity big toe infection and cellulitis, was admitted in January for that. Intially had blister on right big toe for 2 weeks prior to January admission which seemed to bursted. In January she was in hospital and was treated with antibiotics and she was discharged on cefdinir and doxycycline. The patient initially, seemed improved, but the wound was not getting better and she was in the ER on 05/22/2022. At that time, she was given a dose of dalbavancin and told her to monitor the wound and it should improve within 2-3 days, but it was not improving. She has had a lot of pain radiating from the right big toe to the ankle and up into the leg and as she was not getting better, she came to the ER. She says she had fever about one month ago, but since then she has no fevers. She is ambulating with a cane and walker. She is walking with some limp. She lives with her . She says she used to be on Coumadin for a long time, but stopped taking it last January because of frequent falls from neuropathy. She will suddenly fall while walking. She says she had PE a long time back in 2012. Denies any headache, no dizziness, no blurred visions, no earache, no runny nose, no sore throat, no cough, no difficulty swallowing. No chest pain or shortness of breath, no nausea, no vomiting, no abdominal pain. Normal bowel and bladder movements. Currently, resting comfortably and hemodynamically stable. ALLERGIES: ADHESIVES, IODINATED CONTRAST MEDIA, LATEX, PENICILLIN, HEPATITIS B VIRUS VACCINE, ANESTHETICS, KETOROLAC, TROMETHAMINE, ASPIRIN. PAST MEDICAL HISTORY: As mentioned above. PAST SURGICAL HISTORY: Small bowel repair, adhesions removed in 2003, left breast mass biopsy, breast lesion excision, cataract surgery, colonoscopy, colonoscopy with biopsy, dilatation and curettage, left knee arthroscopy, laparoscopic surgical lysis of adhesions in 1995, 1998 and 2002, laparoscopic biopsy of the lining of the stomach, ligation of oviducts, partial hysterectomy in 1983, removal of uterus for tumor in 1988 with both ovaries, total abdominal hysterectomy with removal of tubes. MEDICATIONS: The patient is on bupropion 100 mg p.o. daily, vitamin D 1000 units p.o. daily, Plavix 75 mg p.o. daily, dicyclomine 20 mg p.o. t.i.d. p.r.n., Colace 100 mg p.o. b.i.d. p.r.n., gabapentin 800 mg p.o. b.i.d., insulin glargine 20 units subcutaneous b.i.d., insulin lispro 10 units subcutaneous t.i.d. with meals, levothyroxine 125 mcg p.o. daily, lisinopril 20 mg p.o. daily, metoprolol succinate 25 mg p.o. daily, lovastatin 20 mg p.o. daily, sertraline 200 mg p.o. daily, Trulicity 3 mg subcutaneous weekly. FAMILY HISTORY: Significant for father had lung cancer and diabetes. Sister has stomach cancer. Aunt has diabetes. SOCIAL HISTORY: , no smoking, alcohol rare, no drug use. REVIEW OF SYSTEMS: As per HPI. Rest of the review of systems is negative. PHYSICAL EXAMINATION: GENERAL: The patient is moderately built, not in acute distress. VITAL SIGNS: Temperature 36.8, pulse 77, respiratory rate 19, blood pressure 135/83, and oxygen 96% on room air. HEENT: Pupils equal, round and reactive to light. Oral mucosa moist. NECK: No JVD or neck masses. CARDIOVASCULAR: S1 and S2 heard. Regular rate and rhythm. No murmur, no gallop. RESPIRATORY SYSTEM: Normal AP diameter. No accessory muscle use. No wheezing, no crackles. ABDOMEN: Soft, bowel sounds present, nontender, no distention. CENTRAL NERVOUS SYSTEM: Cranial nerves II through XII grossly intact, nonfocal. EXTREMITIES: Right big toe open ulcer seen with some erythematous changes and some swelling and some mild erythematous changes of the right foot, some tenderness on palpation. LABORATORY DATA: WBC 5.4, hemoglobin 11.8, hematocrit 33.8, platelets 95. PT 11, INR 1, APTT 22.7. Sodium 139, potassium 4, chloride 105, bicarb 29, BUN 13, creatinine 0.6, serum glucose 107, calcium 9.8, total bilirubin 0.5, AST 34, ALT 33, alkaline phosphatase 88. SARS-CoV-2 rapid test negative. IMAGING DATA: Venous Doppler, preliminary report, no DVT. ASSESSMENT AND PLAN: This 67-year-old female presents with right big toe nonhealing diabetic wound. 1. Nonhealing right big toe, foot infection, possible cellulitis right foot, failed treatment with dalbavancin. The patient had this wound since January was treated with antibiotics at that time. X-ray done on 05/22/2022 visit, which was negative for osteomyelitis. We will repeat the x-ray. Empirically starting her on vancomycin and Invanz as the patient is allergic to PENICILLIN. Pain control. Wound care consult and also consult podiatry. Monitor in the medical floor for response. Await podiatry recommendations. 2. History of diabetes: Continue insulin glargine, place on insulin sliding scale. Follow the blood sugars. 3. History of hypertension. Continue lisinopril, metoprolol. We will monitor the blood pressure. 4. History of depression: Continue Zoloft and bupropion. 5. Neuropathy. Continue gabapentin. PT, OT when stable. 6. History of obstructive sleep apnea, on CPAP at bedtime. 7. Hypothyroidism. Continue Synthroid. 8. History of cerebrovascular accident: On statin and Plavix. 9. Thrombocytopenia: Seems to be somewhat chronic. We will follow the labs. 10. Deep venous thrombosis prophylaxis: Placed on Lovenox. Monitor the platelets. DISPOSITION: Closely monitor in the medical floor. PT, OT prior to discharge. Social service to help with discharge planning. Job ID: [id number] [facility]
[2022-05-26] MEDS: LEVOTHYROXINE SODIUM 125 MCG TABLET PO SCH (05:55)
--- NOTE | 2022-05-26 06:42 | Ultrasound Report ---
US venous doppler LE RT HISTORY: 67 years-old Female right leg pain/swelling, eval DVT acute pain and swelling of the right lower extremity COMPARISON: Duplex venous Doppler study 01/28/2022 TECHNIQUE: Multiple real-time sonographic images of the right lower extremity deep venous structures were obtained assessing grayscale appearance, color and spectral flow. FINDINGS: Normal flow, compressibility, phasicity and augmentation. IMPRESSION: No sonographic evidence of deep venous thrombosis. ACT 112: Negative or not required by law. The above report was generated using voice recognition software. It may contain grammatical, syntax o r spelling errors. Electronically signed by: Albaro Pedersen M.D. 05/26/2022 6:41 AM
[2022-05-26 07:35] LABS: BUN Creatinine Ratio 15.5 (10-20); Calcium 8.9 mg/dl (8.5-10.1); Creatinine Clr Calc Pharmacy 75.1 ml/min; Est GFR (African American) 102.9 ml/min; Est GFR (Non-African American) 88.8 ml/min; Magnesium 1.8 mg/dl (1.7-2.4); Potassium 4.2 mmol/L (3.5-5.1)
[2022-05-26 07:43] LABS: Estimated Average Glucose 134 mg/dl; Hemoglobin A1C 6.3 % (4.5-5.6)
[2022-05-26 07:49] LABS: Hematocrit (blood only) 33.6 % (34.1-44.9); Mean Corpuscular Hemoglobin 31.2 pg (25.0-34.0); Mean Corpuscular Hgb Conc 35.7 g/dL (32.0-36.0); Mean Corpuscular Volume 87.3 fL (80.0-100.0); Mean Platelet Volume 9.3 fL (9.4-12.3); Platelet Count 104 K/uL (130-400); RDW Coefficient of Variation 12.3 % (11.5-14.5); RDW Standard Deviation 38.9 fL (36.4-46.3); Red Blood Count 3.85 M/uL (3.93-5.22); White Blood Count 6.17 K/ul (4.8-10.8)
[2022-05-26 07:50] LABS: Basophils # (auto) 0.03 K/uL (0-0.2); Basophils % (auto) 0.5 %; Eosinophils # (auto) 0.07 K/uL (0-0.50); Eosinophils % (auto) 1.1 %; Immature Granulocytes # (auto) 0.01 K/uL (0.00-0.02); Immature Granulocytes % (auto) 0.2 %; Lymphocytes # (auto) 2.28 K/uL (1.2-3.4); Monocytes # (auto) 0.34 K/uL (0.24-0.82); Monocytes % (auto) 5.5 %; Neutrophils # (auto) 3.44 K/uL (1.4-6.5); Neutrophils % (auto) 55.7 %
[2022-05-26] MEDS: CLOPIDOGREL BISULFATE 75 MG TAB PO SCH (08:52)
[2022-05-26] MEDS: lisinopril 20 MG TAB PO SCH (08:52)
[2022-05-26] MEDS: ROSUVASTATIN CALCIUM 20 MG TAB PO SCH (08:52)
[2022-05-26] MEDS: DICYCLOMINE HCL 20 MG TAB PO PRN (08:53)
[2022-05-26] MEDS: METOPROLOL SUCC 25MG EXT REL TAB PO SCH (08:53)
[2022-05-26] MEDS: SERTRALINE HCL 100 MG TABLET PO SCH (08:53)
[2022-05-26] MEDS: GABAPENTIN 800 MG TAB PO SCH ×2 (08:53→21:17)
[2022-05-26] MEDS: CHOLECALCIFEROL 1,000 UNITS 25 MCG TAB PO SCH (08:53)
[2022-05-26] MEDS: buPROPion HCl 100 MG TABLET PO SCH (08:53)
[2022-05-26] MEDS: ENOXAPARIN INJ 40 MG/0.4 ML SYR SQ SCH (08:54)
[2022-05-26] MEDS: INSULIN ASPART PER UNIT SC SCH ×4 (08:57→21:16)
[2022-05-26] MEDS: LANTUS PER UNIT CHARGE SQ SCH ×2 (08:57→17:53)
--- NOTE | 2022-05-26 09:30 | XRay Report ---
XR foot RT min 3V routine CLINICAL HISTORY: non healing right big toe infection COMPARISON: Right foot radiographs May 22, 2022 and January 26, 2022. FINDINGS: Alignment of the right foot is anatomic. Tarsometatarsal joints are intact. No acute fract ure is present. There is no radiographic evidence for acute osteomyelitis of the right first toe. Min imal posterior plantar calcaneal spurring is present. Right first toe soft tissue swelling is present . IMPRESSION: Right first toe soft tissue swelling. No radiographic evidence for acute osteomyelitis. ACT 112: Negative or not required by law. Electronically signed by: Mike Silverman M.D. 05/26/2022 9:29 AM
[2022-05-26] MEDS ORDERED: VANCOMYCIN HCL 1,000 MG in SODIUM CHLORIDE 0.9% 250 ML IV SCH (14:00)
--- NOTE | 2022-05-26 14:18 | Hospitalist Progress Note ---
Date of Service May 26, 2022 Assessment & Plan (1) Cellulitis of great toe of right foot: Plan: - right great toe with nonhealing wound in the setting of diabete - mild erythema, no drainage - x-ray negative for osteo - patient with right knee replacement so likely not MRI compatible - has never seen a plugging machine operator - no plugging machine operator in house either - non toxic appearing - ortho consulted in lieu of podiatry - continue vancomycin and ertapenem for now - blood cultures drawn - likely IV abx over the weekend and discharge on PO with Podiatry follow up - continue to monitor (2) DM type 2 (diabetes mellitus, type 2): Plan: - a1c 6.3% 05/2022 - continue home insulin with lantus and SSI - FSG AC+HS - diabetic diet - tight glucose control given nonhealing right great toe wound (3) 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: Plan: - continue CPAP (4) Hypothyroidism: Plan: - continue home meds (5) Dyslipidemia: Plan: - continue statin (6) Hypertension: Plan: - continue home meds (7) History of CVA (cerebrovascular accident): Plan: - continue plavix and statin Plan DVT ppx: lovenox Code Status: Full Code Dispo: med/surg Bhavesh Mercer MD [facility] Medicine Admission and Anticipated Discharge Date Admission Date: May 26, 2022 Subjective Patient with history of diabetes, HLD, hypothyroidism, 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, h/o PE, h/o CVA, HTN presented for nonhealing right great toe wound. Patient apparently failed outpatient PO antibiotics with dalbavancin. Now here for IV antibiotics and evaluation by surgery. Patient reports pain in her right great toe. Denies fevers or chills, n/v/d, abdominal pain, chest pain, shortness of breath, cough, dysuria. Review of Systems Review of Systems: All systems reviewed & are unremarkable except as noted in Subjective Physical Exam Physical Exam: GENERAL: The patient is moderately built, not in acute distress. HEENT: Pupils equal, round and reactive to light. Oral mucosa moist. NECK: No JVD or neck masses. CARDIOVASCULAR: S1 and S2 heard. Regular rate and rhythm. No murmur, no gallop. RESPIRATORY SYSTEM: Normal AP diameter. No accessory muscle use. No wheezing, no crackles. ABDOMEN: Soft, bowel sounds present, nontender, no distention. CENTRAL NERVOUS SYSTEM: Cranial nerves II through XII grossly intact, nonfocal. EXTREMITIES: Right big toe open ulcer seen with some erythematous changes and some swelling and some mild erythematous changes of the right foot, some tenderness on palpation, no drainage Results & Data Results & Data ([facility]) Vital Signs (Past 12 Hours) Vital Signs Temp Pulse Pulse Resp BP Pulse Ox O2 Del Method 05/26/22 06:51 36.5 C 70 16 127/64 97 Room Air 05/26/22 02:33 153/81 H 05/26/22 02:10 36.4 C L 69 184/73 H 99 Room Air Diagnostic Findings Laboratory Results WBC 6.17 K/ul (4.8-10.8) 05/26/22 06:56 RBC 3.85 M/uL (3.93-5.22) L 05/26/22 06:56 Hgb 12.0 g/dl (12.0-16.0) 05/26/22 06:56 Hct 33.6 % (34.1-44.9) L 05/26/22 06:56 MCV 87.3 fL (80.0-100.0) 05/26/22 06:56 MCH 31.2 pg (25.0-34.0) 05/26/22 06:56 MCHC 35.7 g/dL (32.0-36.0) 05/26/22 06:56 RDW Std Deviation 38.9 fL (36.4-46.3) 05/26/22 06:56 RDW Coeff of Dia 12.3 % (11.5-14.5) 05/26/22 06:56 Plt Count 104 K/uL (130-400) L 05/26/22 06:56 MPV 9.3 fL (9.4-12.3) L 05/26/22 06:56 Immature Gran % (Auto) 0.2 % 05/26/22 06:56 Neut % (Auto) 55.7 % 05/26/22 06:56 Lymph % (Auto) 37.0 % 05/26/22 06:56 [place] % (Auto) 5.5 % 05/26/22 06:56 Eos % (Auto) 1.1 % 05/26/22 06:56 Baso % (Auto) 0.5 % 05/26/22 06:56 Neut # (Auto) 3.44 K/uL (1.4-6.5) 05/26/22 06:56 Lymph # (Auto) 2.28 K/uL (1.2-3.4) 05/26/22 06:56 [place] # (Auto) 0.34 K/uL (0.24-0.82) 05/26/22 06:56 Eos # (Auto) 0.07 K/uL (0-0.50) 05/26/22 06:56 Baso # (Auto) 0.03 K/uL (0-0.2) 05/26/22 06:56 Immature Gran # (Auto) 0.01 K/uL (0.00-0.02) 05/26/22 06:56 Platelet Estimate Decreased (Normal) L 05/25/22 21:30 PT 11.0 Seconds (9.0-12.0) 05/25/22 21:30 INR 1.0 (0.9-1.1) 05/25/22 21:30 APTT 22.7 Seconds (21.0-31.0) 05/25/22 21:30 PTT Ratio 0.8 05/25/22 21:30 Sodium 139 mmol/L (136-145) 05/26/22 06:56 Potassium 4.2 mmol/L (3.5-5.1) 05/26/22 06:56 Chloride 106 mmol/L (98-107) 05/26/22 06:56 Carbon Dioxide 29 mmol/L (21-32) 05/26/22 06:56 Anion Gap 4 (3-11) 05/26/22 06:56 BUN 11 mg/dl (6-23) 05/26/22 06:56 Creatinine 0.71 mg/dl (0.6-1.2) 05/26/22 06:56 Est Cr Clr Drug Dosing 75.1 ml/min 05/26/22 06:56 Est GFR ( Amer) 102.9 ml/min 05/26/22 06:56 Est GFR (Non-Af Amer) 88.8 ml/min 05/26/22 06:56 BUN/Creatinine Ratio 15.5 (10-20) 05/26/22 06:56 Glucose 136 mg/dl (70-99(Fasting)) H 05/26/22 06:56 POC Glucose 154 mg/dl (70-99) H 05/26/22 11:59 Estimat Average Glucose 134 mg/dl 05/26/22 06:56 Hemoglobin A1c 6.3 % (4.5-5.6) H 05/26/22 06:56 Calcium 8.9 mg/dl (8.5-10.1) 05/26/22 06:56 Magnesium 1.8 mg/dl (1.7-2.4) 05/26/22 06:56 Total Bilirubin 0.5 mg/dl (0.2-1.0) 05/25/22 21:30 AST 34 U/L (13-39) 05/25/22 21:30 ALT 33 U/L (7-52) 05/25/22 21:30 Alkaline Phosphatase 88 U/L (34-104) 05/25/22 21:30 Total Protein 7.5 gm/dl (6.0-8.3) 05/25/22 21:30 Albumin 4.3 gm/dl (3.4-5.0) 05/25/22 21:30 Globulin 3.2 gm/dl (2.5-4.0) 05/25/22 21:30 Albumin/Globulin Ratio 1.3 (0.9-2) 05/25/22 21:30 SARS-CoV-2, RNA, NAAT NEGATIVE (NEGATIVE) 05/25/22 23:20 Impressions Venous Doppler Study 05/25/22 21:17 US venous doppler LE RT HISTORY: 67 years-old Female right leg pain/swelling, eval DVT acute pain and swelling of the right lower extremity COMPARISON: Duplex venous Doppler study 01/28/2022 TECHNIQUE: Multiple real-time sonographic images of the right lower extremity deep venous structures were obtained assessing grayscale appearance, color and spectral flow. FINDINGS: Normal flow, compressibility, phasicity and augmentation. IMPRESSION: No sonographic evidence of deep venous thrombosis. ACT 112: Negative or not required by law. The above report was generated using voice recognition software. It may contain grammatical, syntax or spelling errors. Electronically signed by: Albaro Pedersen M.D. 05/26/2022 6:41 AM Foot X-Ray 05/26/22 02:24 XR foot RT min 3V routine CLINICAL HISTORY: non healing right big toe infection COMPARISON: Right foot radiographs May 22, 2022 and January 26, 2022. FINDINGS: Alignment of the right foot is anatomic. Tarsometatarsal joints are intact. No acute fracture is present. There is no radiographic evidence for acute osteomyelitis of the right first toe. Minimal posterior plantar calcaneal spurring is present. Right first toe soft tissue swelling is present. IMPRESSION: Right first toe soft tissue swelling. No radiographic evidence for acute osteomyelitis. ACT 112: Negative or not required by law. Electronically signed by: Mike Silverman M.D. 05/26/2022 9:29 AM Medications Administered Current Inpatient Medications Acetaminophen (Acetaminophen 325 Mg Tab) 650 mg PO Q4H PRN PRN Reason: pain/fever Stop: 06/25/22 02:23 Bupropion HCl (Bupropion Hcl 100 Mg Tablet) 100 mg PO DAILY BRENDA Stop: 06/25/22 08:59 Last Admin: 05/26/22 08:53 Dose: 100 mg Clopidogrel Bisulfate (Clopidogrel Bisulfate 75 Mg Tab) 75 mg PO DAILY BRENDA Stop: 06/25/22 08:59 Last Admin: 05/26/22 08:52 Dose: 75 mg Dextrose (Dextrose 50% 50 Ml Syringe) 25 - 50 ml IV UD PRN; Protocol PRN Reason: Hypoglycemia Protocol Stop: 06/25/22 02:44 Dicyclomine HCl (Dicyclomine Hcl 20 Mg Tab) 20 mg PO TID PRN PRN Reason: abdominal pain Stop: 06/25/22 02:23 Last Admin: 05/26/22 08:53 Dose: 20 mg Docusate Sodium (Docusate Sodium 100 Mg Cap) 100 mg PO BID PRN PRN Reason: Constipation Stop: 06/25/22 02:39 Enoxaparin Sodium (Enoxaparin Inj 40 Mg/0.4 Ml Syr) 40 mg SQ Q24H BRENDA Stop: 06/25/22 08:59 Last Admin: 05/26/22 08:54 Dose: 40 mg Gabapentin (Gabapentin 800 Mg Tab) 800 mg PO BID BRENDA Stop: 06/25/22 08:59 Last Admin: 05/26/22 08:53 Dose: 800 mg Glucagon (Glucagon For Inj 1 Mg Vial) 1 mg IM UD PRN; Protocol PRN Reason: Hypoglycemia Protocol Stop: 06/25/22 02:44 Glucose (Glucose 40% Gel 15 Gm Tube) 15 - 30 gm PO UD PRN; Protocol PRN Reason: Hypoglycemia Protocol Stop: 06/25/22 02:44 Glucose (Glucose 10 Tab/Tube) 4 - 8 tab PO UD PRN; Protocol PRN Reason: Hypoglycemia Protocol Stop: 06/25/22 02:44 Vancomycin HCl 1,000 mg/ (Sodium Chloride) 270 mls @ 200 mls/hr IV Q12H BRENDA; Protocol Stop: 06/02/22 13:59 Last Admin: 05/26/22 13:03 Dose: 200 mls/hr Ertapenem 1,000 mg/ Syringe 10 mls @ 2 mls/min IV Q24H BRENDA Stop: 06/02/22 02:59 Last Admin: 05/26/22 03:33 Dose: 2 mls/min Insulin Aspart (Insulin Aspart Per Unit) 0 units SC ACHS BRENDA Stop: 06/25/22 07:29 Last Admin: 05/26/22 12:54 Dose: 4 units Insulin Glargine (Lantus Per Unit Charge) 20 units SQ BIDM BRENDA Stop: 06/25/22 07:59 Last Admin: 05/26/22 08:57 Dose: 20 units Levothyroxine Sodium (Levothyroxine Sodium 125 Mcg Tablet) 125 mcg PO DAILYBB [facility] Stop: 06/25/22 06:29 Last Admin: 05/26/22 05:55 Dose: 125 mcg Lisinopril (Lisinopril 20 Mg Tab) 20 mg PO QAM [facility] Stop: 06/25/22 08:59 Last Admin: 05/26/22 08:52 Dose: 20 mg Metoprolol Succinate (Metoprolol Succ 25mg Ext Rel Tab) 25 mg PO DAILY BRENDA Stop: 06/25/22 08:59 Last Admin: 05/26/22 08:53 Dose: 25 mg Miscellaneous (Carbohydrates For Hypoglycemia ) 15 - 30 gm PO UD PRN PRN Reason: Hypoglycemia Treatment Stop: 06/25/22 02:44 Miscellaneous Information (Vancomycin Consult Active) 1 each N/A UD PRN PRN Reason: Consult Stop: 06/25/22 02:23 Oxycodone HCl (Oxycodone Hcl Ir 5 Mg Tab (Immediate Release)) 5 mg PO Q4H PRN PRN Reason: Pain Stop: 06/09/22 02:23 Polyethylene Glycol (Polyethylene (Miralax) 17 Gm Pack) 17 gm PO DAILY PRN PRN Reason: Constipation Stop: 06/25/22 02:23 Rosuvastatin Calcium (Rosuvastatin Calcium 20 Mg Tab) 20 mg PO DAILY [facility] Stop: 06/25/22 08:59 Last Admin: 05/26/22 08:52 Dose: 20 mg Sertraline HCl (Sertraline Hcl 100 Mg Tablet) 200 mg PO DAILY [facility] Stop: 06/25/22 08:59 Last Admin: 05/26/22 08:53 Dose: 200 mg Vitamin D (Cholecalciferol 1,000 Units 25 Mcg Tab) 1,000 units PO QAM [facility] Stop: 06/25/22 08:59 Last Admin: 05/26/22 08:53 Dose: 1,000 units
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
[2022-05-26] MEDS: KETOROLAC TROMETHAMINE 15 MG/ML VIAL IV PRN (17:58)
[2022-05-26] MEDS: metroNIDAZOLE 500 MG/100 ML BAG IV SCH (21:18)
[2022-05-26] MEDS: CEFEPIME 2,000 MG in SYRINGE 0 ML IV SCH (21:18)
[2022-05-27] MEDS: metroNIDAZOLE 500 MG/100 ML BAG IV SCH (06:17)
[2022-05-27] MEDS: LEVOTHYROXINE SODIUM 125 MCG TABLET PO SCH (06:17)
[2022-05-27] MEDS: CEFEPIME 2,000 MG in SYRINGE 0 ML IV SCH (06:17)
[2022-05-27] MEDS: KETOROLAC TROMETHAMINE 15 MG/ML VIAL IV PRN ×3 (06:25→23:44)
[2022-05-27 08:11] LABS: Albumin Globulin Ratio 1.3 (0.9-2); Albumin Level 3.7 gm/dl (3.4-5.0); BUN Creatinine Ratio 14.3 (10-20); Bilirubin,Total 0.5 mg/dl (0.2-1.0); Calcium 8.7 mg/dl (8.5-10.1); Creatinine Clr Calc Pharmacy 63.5 ml/min; Est GFR (African American) 83.9 ml/min; Est GFR (Non-African American) 72.4 ml/min; Globulin 2.8 gm/dl (2.5-4.0); Phosphorus 4.5 mg/dl (2.5-4.9); Potassium 4.1 mmol/L (3.5-5.1); Total Protein 6.5 gm/dl (6.0-8.3)
[2022-05-27] MEDS: ENOXAPARIN INJ 40 MG/0.4 ML SYR SQ SCH (09:09)
[2022-05-27] MEDS: SERTRALINE HCL 100 MG TABLET PO SCH (09:09)
[2022-05-27] MEDS: ROSUVASTATIN CALCIUM 20 MG TAB PO SCH (09:09)
[2022-05-27] MEDS: METOPROLOL SUCC 25MG EXT REL TAB PO SCH (09:09)
[2022-05-27] MEDS: CHOLECALCIFEROL 1,000 UNITS 25 MCG TAB PO SCH (09:10)
[2022-05-27] MEDS: lisinopril 20 MG TAB PO SCH (09:10)
[2022-05-27] MEDS: CLOPIDOGREL BISULFATE 75 MG TAB PO SCH (09:10)
[2022-05-27] MEDS: GABAPENTIN 800 MG TAB PO SCH ×2 (09:10→20:42)
[2022-05-27] MEDS: buPROPion HCl 100 MG TABLET PO SCH (09:10)
--- NOTE | 2022-05-27 09:17 | Progress Notes ---
I have reviewed the recent lab tests done on this patient's admission. Her white count is normal. H er sed rate is normal at 20 and C-reactive protein is less than 0.50. In light of these findings, I think it is unlikely she has actually got an active infection of her toe. She is obviously diabetic and has got a wound, probably very poor peripheral vascular disease and just poor healing. I do not think she has got active infection. I do not think any surgical intervention is indicated. She will need just continued wound care. May benefit from a vascular evaluation. Any orthopedic questions c an be directed to me at [phone]. Job ID: [id number]
[2022-05-27] MEDS: INSULIN ASPART PER UNIT SC SCH ×3 (09:42→17:47)
[2022-05-27] MEDS: LANTUS PER UNIT CHARGE SQ SCH ×2 (09:42→17:48)
--- NOTE | 2022-05-27 10:44 | Ultrasound Report ---
US arterial duplex LE RT CLINICAL HISTORY: evaluate arterial insufficiency of right foot COMPARISON STUDY: None. FINDINGS: Normal bilateral ankle brachial indices measuring 1.2. There is mild scattered calcified pl aque within the right lower extremity arterial system. Normal biphasic to triphasic waveforms and christiano ocities throughout. No significant stenosis or occlusion. Within the right posterior calf there is a subtle hyperechoic subcutaneous 2.6 x 1.9 x 0.6 cm lesion. This favors a fat-containing lesion such a s a lipoma. IMPRESSION: 1. No significant stenosis or occlusion within the right lower extremity arterial system. 2. Within the right posterior calf there is a subtle hyperechoic subcutaneous 2.6 x 1.9 x 0.6 cm lesi on. This favors a fat-containing lesion such as a lipoma. ACT 112: Negative or not required by law. Electronically signed by: Moses Pineda M.D. 05/27/2022 10:43 AM
--- NOTE | 2022-05-27 13:15 | Hospitalist Progress Note ---
Date of Service May 27, 2022 Assessment & Plan (1) Cellulitis of great toe of right foot: Plan: - right great toe with nonhealing wound in the setting of diabetes - mild erythema, no drainage - x-ray negative for osteo - patient with right knee replacement so likely not MRI compatible - has never seen a crm specialist - no crm specialist in house either - non toxic appearing - ortho consulted in lieu of podiatry - antibiotics d/c'd due to low concern for infection at this time - blood cultures drawn - ESR, CRP negative, WBC wnl, afebrile, minimal erythema on foot wound - arterial duplex on RLE without significant stenosis to right foot - ortho is not concerned about infection - wound care and podiatry/ortho follow up - likely discharge 05/28/2022 with follows up - continue to monitor (2) DM type 2 (diabetes mellitus, type 2): Plan: - a1c 6.3% 05/2022 - continue home insulin with lantus and SSI - FSG AC+HS - diabetic diet - tight glucose control given nonhealing right great toe wound (3) 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: Plan: - continue CPAP (4) Hypothyroidism: Plan: - continue home meds (5) Dyslipidemia: Plan: - continue statin (6) Hypertension: Plan: - continue home meds (7) History of CVA (cerebrovascular accident): Plan: - continue plavix and statin Plan DVT ppx: lovenox Code Status: Full Code Dispo: med/surg Bhavesh Mercer MD [facility] Medicine Admission and Anticipated Discharge Date Admission Date: May 26, 2022 Subjective Patient with history of diabetes, HLD, hypothyroidism, 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, h/o PE, h/o CVA, HTN presented for nonhealing right great toe wound. Patient apparently failed outpatient PO antibiotics with dalbavancin. Now here for IV antibiotics and evaluation by surgery. Patient reports pain in her right great toe but is improved. Denies fevers or chills, n/v/d, abdominal pain, chest pain, shortness of breath, cough, dysuria. Review of Systems Review of Systems: All systems reviewed & are unremarkable except as noted in Subjective Physical Exam Physical Exam: GENERAL: The patient is moderately built, not in acute distress. HEENT: Pupils equal, round and reactive to light. Oral mucosa moist. NECK: No JVD or neck masses. CARDIOVASCULAR: S1 and S2 heard. Regular rate and rhythm. No murmur, no gallop. RESPIRATORY SYSTEM: Normal AP diameter. No accessory muscle use. No wheezing, no crackles. ABDOMEN: Soft, bowel sounds present, nontender, no distention. CENTRAL NERVOUS SYSTEM: Cranial nerves II through XII grossly intact, nonfocal. EXTREMITIES: Right big toe open ulcer seen with some erythematous changes and some swelling and some mild erythematous changes of the right foot, some tenderness on palpation, no drainage Results & Data Results & Data ([facility]) Vital Signs (Past 12 Hours) Vital Signs Temp Pulse Resp BP Pulse Ox O2 Del Method 05/27/22 07:25 Room Air, CPAP 05/27/22 08:12 36.4 C L 63 18 126/67 99 Room Air Diagnostic Findings Laboratory Results WBC 6.17 K/ul (4.8-10.8) 05/26/22 06:56 RBC 3.85 M/uL (3.93-5.22) L 05/26/22 06:56 Hgb 12.0 g/dl (12.0-16.0) 05/26/22 06:56 Hct 33.6 % (34.1-44.9) L 05/26/22 06:56 MCV 87.3 fL (80.0-100.0) 05/26/22 06:56 MCH 31.2 pg (25.0-34.0) 05/26/22 06:56 MCHC 35.7 g/dL (32.0-36.0) 05/26/22 06:56 RDW Std Deviation 38.9 fL (36.4-46.3) 05/26/22 06:56 RDW Coeff of Dia 12.3 % (11.5-14.5) 05/26/22 06:56 Plt Count 104 K/uL (130-400) L 05/26/22 06:56 MPV 9.3 fL (9.4-12.3) L 05/26/22 06:56 Immature Gran % (Auto) 0.2 % 05/26/22 06:56 Neut % (Auto) 55.7 % 05/26/22 06:56 Lymph % (Auto) 37.0 % 05/26/22 06:56 [place] % (Auto) 5.5 % 05/26/22 06:56 Eos % (Auto) 1.1 % 05/26/22 06:56 Baso % (Auto) 0.5 % 05/26/22 06:56 Neut # (Auto) 3.44 K/uL (1.4-6.5) 05/26/22 06:56 Lymph # (Auto) 2.28 K/uL (1.2-3.4) 05/26/22 06:56 [place] # (Auto) 0.34 K/uL (0.24-0.82) 05/26/22 06:56 Eos # (Auto) 0.07 K/uL (0-0.50) 05/26/22 06:56 Baso # (Auto) 0.03 K/uL (0-0.2) 05/26/22 06:56 Immature Gran # (Auto) 0.01 K/uL (0.00-0.02) 05/26/22 06:56 Platelet Estimate Decreased (Normal) L 05/25/22 21:30 ESR 20 mm/hr (0-30) 05/26/22 06:56 PT 11.0 Seconds (9.0-12.0) 05/25/22 21:30 INR 1.0 (0.9-1.1) 05/25/22 21:30 APTT 22.7 Seconds (21.0-31.0) 05/25/22 21:30 PTT Ratio 0.8 05/25/22 21:30 Sodium 139 mmol/L (136-145) 05/27/22 06:38 Potassium 4.1 mmol/L (3.5-5.1) 05/27/22 06:38 Chloride 105 mmol/L (98-107) 05/27/22 06:38 Carbon Dioxide 31 mmol/L (21-32) 05/27/22 06:38 Anion Gap 3 (3-11) 05/27/22 06:38 BUN 12 mg/dl (6-23) 05/27/22 06:38 Creatinine 0.84 mg/dl (0.6-1.2) 05/27/22 06:38 Est Cr Clr Drug Dosing 63.5 ml/min 05/27/22 06:38 Est GFR ( Amer) 83.9 ml/min 05/27/22 06:38 Est GFR (Non-Af Amer) 72.4 ml/min 05/27/22 06:38 BUN/Creatinine Ratio 14.3 (10-20) 05/27/22 06:38 Glucose 115 mg/dl (70-99(Fasting)) H 05/27/22 06:38 POC Glucose 203 mg/dl (70-99) H 05/27/22 12:08 Estimat Average Glucose 134 mg/dl 05/26/22 06:56 Hemoglobin A1c 6.3 % (4.5-5.6) H 05/26/22 06:56 Calcium 8.7 mg/dl (8.5-10.1) 05/27/22 06:38 Phosphorus 4.5 mg/dl (2.5-4.9) 05/27/22 06:38 Magnesium 2.0 mg/dl (1.7-2.4) 05/27/22 06:38 Total Bilirubin 0.5 mg/dl (0.2-1.0) 05/27/22 06:38 AST 27 U/L (13-39) 05/27/22 06:38 ALT 24 U/L (7-52) 05/27/22 06:38 Alkaline Phosphatase 72 U/L (34-104) 05/27/22 06:38 C-Reactive Protein < 0.50 mg/dl (0-0.5) 05/26/22 06:56 Total Protein 6.5 gm/dl (6.0-8.3) 05/27/22 06:38 Albumin 3.7 gm/dl (3.4-5.0) 05/27/22 06:38 Globulin 2.8 gm/dl (2.5-4.0) 05/27/22 06:38 Albumin/Globulin Ratio 1.3 (0.9-2) 05/27/22 06:38 SARS-CoV-2, RNA, NAAT NEGATIVE (NEGATIVE) 05/25/22 23:20 Impressions Venous Doppler Study 05/25/22 21:17 US venous doppler LE RT HISTORY: 67 years-old Female right leg pain/swelling, eval DVT acute pain and swelling of the right lower extremity COMPARISON: Duplex venous Doppler study 01/28/2022 TECHNIQUE: Multiple real-time sonographic images of the right lower extremity deep venous structures were obtained assessing grayscale appearance, color and spectral flow. FINDINGS: Normal flow, compressibility, phasicity and augmentation. IMPRESSION: No sonographic evidence of deep venous thrombosis. ACT 112: Negative or not required by law. The above report was generated using voice recognition software. It may contain grammatical, syntax or spelling errors. Electronically signed by: Albaro Pedersen M.D. 05/26/2022 6:41 AM Foot X-Ray 05/26/22 02:24 XR foot RT min 3V routine CLINICAL HISTORY: non healing right big toe infection COMPARISON: Right foot radiographs May 22, 2022 and January 26, 2022. FINDINGS: Alignment of the right foot is anatomic. Tarsometatarsal joints are intact. No acute fracture is present. There is no radiographic evidence for acute osteomyelitis of the right first toe. Minimal posterior plantar calcaneal spurring is present. Right first toe soft tissue swelling is present. IMPRESSION: Right first toe soft tissue swelling. No radiographic evidence for acute osteomyelitis. ACT 112: Negative or not required by law. Electronically signed by: Mike Silverman M.D. 05/26/2022 9:29 AM Duplex Scan Lower Extremity Artery 05/27/22 07:16 US arterial duplex LE RT CLINICAL HISTORY: evaluate arterial insufficiency of right foot COMPARISON STUDY: None. FINDINGS: Normal bilateral ankle brachial indices measuring 1.2. There is mild scattered calcified plaque within the right lower extremity arterial system. Normal biphasic to triphasic waveforms and velocities throughout. No significant stenosis or occlusion. Within the right posterior calf there is a subtle hyperechoic subcutaneous 2.6 x 1.9 x 0.6 cm lesion. This favors a fat-containing lesion such as a lipoma. IMPRESSION: 1. No significant stenosis or occlusion within the right lower extremity arterial system. 2. Within the right posterior calf there is a subtle hyperechoic subcutaneous 2.6 x 1.9 x 0.6 cm lesion. This favors a fat-containing lesion such as a lipoma. ACT 112: Negative or not required by law. Electronically signed by: Moses Pineda M.D. 05/27/2022 10:43 AM Medications Administered Current Inpatient Medications Acetaminophen (Acetaminophen 325 Mg Tab) 650 mg PO Q4H PRN PRN Reason: pain/fever Stop: 06/25/22 02:23 Bupropion HCl (Bupropion Hcl 100 Mg Tablet) 100 mg PO DAILY BRENDA Stop: 06/25/22 08:59 Last Admin: 05/27/22 09:10 Dose: 100 mg Clopidogrel Bisulfate (Clopidogrel Bisulfate 75 Mg Tab) 75 mg PO DAILY BRENDA Stop: 06/25/22 08:59 Last Admin: 05/27/22 09:10 Dose: 75 mg Dextrose (Dextrose 50% 50 Ml Syringe) 25 - 50 ml IV UD PRN; Protocol PRN Reason: Hypoglycemia Protocol Stop: 06/25/22 02:44 Dicyclomine HCl (Dicyclomine Hcl 20 Mg Tab) 20 mg PO TID PRN PRN Reason: abdominal pain Stop: 06/25/22 02:23 Last Admin: 05/26/22 08:53 Dose: 20 mg Docusate Sodium (Docusate Sodium 100 Mg Cap) 100 mg PO BID PRN PRN Reason: Constipation Stop: 06/25/22 02:39 Enoxaparin Sodium (Enoxaparin Inj 40 Mg/0.4 Ml Syr) 40 mg SQ Q24H BRENDA Stop: 06/25/22 08:59 Last Admin: 05/27/22 09:09 Dose: 40 mg Gabapentin (Gabapentin 800 Mg Tab) 800 mg PO BID BRENDA Stop: 06/25/22 08:59 Last Admin: 05/27/22 09:10 Dose: 800 mg Glucagon (Glucagon For Inj 1 Mg Vial) 1 mg IM UD PRN; Protocol PRN Reason: Hypoglycemia Protocol Stop: 06/25/22 02:44 Glucose (Glucose 40% Gel 15 Gm Tube) 15 - 30 gm PO UD PRN; Protocol PRN Reason: Hypoglycemia Protocol Stop: 06/25/22 02:44 Glucose (Glucose 10 Tab/Tube) 4 - 8 tab PO UD PRN; Protocol PRN Reason: Hypoglycemia Protocol Stop: 06/25/22 02:44 Insulin Aspart (Insulin Aspart Per Unit) 0 units SC ACHS BRENDA Stop: 06/25/22 07:29 Last Admin: 05/27/22 09:42 Dose: 6 units Insulin Glargine (Lantus Per Unit Charge) 20 units SQ BIDM BRENDA Stop: 06/25/22 07:59 Last Admin: 05/27/22 09:42 Dose: 20 units Ketorolac Tromethamine (Ketorolac Tromethamine 15 Mg/Ml Vial) 15 mg IV Q6H PRN PRN Reason: Pain Stop: 05/31/22 16:08 Last Admin: 05/27/22 06:25 Dose: 15 mg Levothyroxine Sodium (Levothyroxine Sodium 125 Mcg Tablet) 125 mcg PO DAILYBB [facility] Stop: 06/25/22 06:29 Last Admin: 05/27/22 06:17 Dose: 125 mcg Lisinopril (Lisinopril 20 Mg Tab) 20 mg PO QAM [facility] Stop: 06/25/22 08:59 Last Admin: 05/27/22 09:10 Dose: 20 mg Metoprolol Succinate (Metoprolol Succ 25mg Ext Rel Tab) 25 mg PO DAILY BRENDA Stop: 06/25/22 08:59 Last Admin: 05/27/22 09:09 Dose: 25 mg Miscellaneous (Carbohydrates For Hypoglycemia ) 15 - 30 gm PO UD PRN PRN Reason: Hypoglycemia Treatment Stop: 06/25/22 02:44 Oxycodone HCl (Oxycodone Hcl Ir 5 Mg Tab (Immediate Release)) 5 mg PO Q4H PRN PRN Reason: Pain Stop: 06/09/22 02:23 Polyethylene Glycol (Polyethylene (Miralax) 17 Gm Pack) 17 gm PO DAILY PRN PRN Reason: Constipation Stop: 06/25/22 02:23 Rosuvastatin Calcium (Rosuvastatin Calcium 20 Mg Tab) 20 mg PO DAILY [facility] Stop: 06/25/22 08:59 Last Admin: 05/27/22 09:09 Dose: 20 mg Sertraline HCl (Sertraline Hcl 100 Mg Tablet) 200 mg PO DAILY [facility] Stop: 06/25/22 08:59 Last Admin: 05/27/22 09:09 Dose: 200 mg Vitamin D (Cholecalciferol 1,000 Units 25 Mcg Tab) 1,000 units [facility] Stop: 06/25/22 08:59 Last Admin: 05/27/22 09:10 Dose: 1,000 units
[2022-05-28] MEDS: INSULIN ASPART PER UNIT SC SCH ×3 (00:33→12:37)
[2022-05-28] MEDS ORDERED: VANCOMYCIN LEVEL ONE (01:30)
[2022-05-28] MEDS: LEVOTHYROXINE SODIUM 125 MCG TABLET PO SCH (06:24)
[2022-05-28] MEDS: lisinopril 20 MG TAB PO SCH (08:01)
[2022-05-28] MEDS: CHOLECALCIFEROL 1,000 UNITS 25 MCG TAB PO SCH (08:01)
[2022-05-28] MEDS: buPROPion HCl 100 MG TABLET PO SCH (08:01)
[2022-05-28] MEDS: ENOXAPARIN INJ 40 MG/0.4 ML SYR SQ SCH (08:01)
[2022-05-28] MEDS: GABAPENTIN 800 MG TAB PO SCH (08:01)
[2022-05-28] MEDS: ROSUVASTATIN CALCIUM 20 MG TAB PO SCH (08:01)
[2022-05-28] MEDS: SERTRALINE HCL 100 MG TABLET PO SCH (08:01)
[2022-05-28] MEDS: CLOPIDOGREL BISULFATE 75 MG TAB PO SCH (08:01)
[2022-05-28] MEDS: METOPROLOL SUCC 25MG EXT REL TAB PO SCH (08:01)
[2022-05-28] MEDS: LANTUS PER UNIT CHARGE SQ SCH (08:34)
[2022-05-28] MEDS: DICYCLOMINE HCL 20 MG TAB PO PRN (10:05)
[2022-05-28 11:44] VITALS: BP 130/66; TEMP 97.5; O2SAT 98
[2022-05-28 13:54] VITALS: PULSE 69
--- NOTE | 2022-05-28 14:52 | Discharge Summary ---
Date of Service May 28, 2022 Admission HPI Per Admitting Provider This is a 67-year-old female with a past medical history significant for type 2 diabetes, diabetic neuropathy, hyperlipidemia, hypothyroidism, obstructive sleep apnea, on CPAP, history of upper extremity venous thrombosis, history of pulmonary embolism, history of stroke, history of hypertension, history of female stress incontinence, history of osteoarthritis, history of fractured ribs, fracture of transverse process of lumbar vertebrae,history of depression, anxiety, recurrent falls, presents with nonhealing right toe wound. The patient has right lower extremity big toe infection and cellulitis, was admitted in January for that. Intially had blister on right big toe for 2 weeks prior to January admission which seemed to bursted. In January she was in hospital and was treated with antibiotics and she was discharged on cefdinir and doxycycline. The patient initially, seemed improved, but the wound was not getting better and she was in the ER on 05/22/2022. At that time, she was given a dose of dalbavancin a nd told her to monitor the wound and it should improve within 2-3 days, but it was not improving. She has had a lot of pain radiating from the right big toe to the ankle and up into the leg and as she was not getting better, she came to the ER. She says she had fever about one month ago, but since then she has no fevers. She is ambulating with a cane and walker. She is walking with some limp. She lives with her . She says she used to be on Coumadin for a long time, but stopped taking it last January because of frequent falls from neuropathy. She will suddenly fall while walking. She says she had PE a long time back in 2012. Denies any headache, no dizziness, no blurred visions, no earache, no runny nose, no sore throat, no cough, no difficulty swallowing. No chest pain or shortness of breath, no nausea, no vomiting, no abdominal pain. Normal bowel and bladder movements. Currently, resting comfortably and hemodynamically stable. Admission Exam Per Admitting Provider GENERAL: The patient is moderately built, not in acute distress. VITAL SIGNS: Temperature 36.8, pulse 77, respiratory rate 19, blood pressure 135/83, and oxygen 96% on room air. HEENT: Pupils equal, round and reactive to light. Oral mucosa moist. NECK: No JVD or neck masses. CARDIOVASCULAR: S1 and S2 heard. Regular rate and rhythm. No murmur, no gallop. RESPIRATORY SYSTEM: Normal AP diameter. No accessory muscle use. No wheezing, no crackles. ABDOMEN: Soft, bowel sounds present, nontender, no distention. CENTRAL NERVOUS SYSTEM: Cranial nerves II through XII grossly intact, nonfocal. EXTREMITIES: Right big toe open ulcer seen with some erythematous changes and some swelling and some mild erythematous changes of the right foot, some tenderness on palpation. Principal Diagnosis nonhealing right great toe wound Discharge Exam GENERAL: The patient is moderately built, not in acute distress. HEENT: Pupils equal, round and reactive to light. Oral mucosa moist. NECK: No JVD or neck masses. CARDIOVASCULAR: S1 and S2 heard. Regular rate and rhythm. No murmur, no gallop. RESPIRATORY SYSTEM: Normal AP diameter. No accessory muscle use. No wheezing, no crackles. ABDOMEN: Soft, bowel sounds present, nontender, no distention. CENTRAL NERVOUS SYSTEM: Cranial nerves II through XII grossly intact, nonfocal. EXTREMITIES: Right big toe open ulcer seen with some erythematous changes but mild and some tenderness on palpation, no drainage Discharge Data Allergies Allergy/AdvReac Type Severity Reaction Status Date / Time adhesive Allergy Intermediate RASH Verified 01/27/22 19:38 Iodinated Contrast Media Allergy Intermediate burning Verified 01/27/22 19:38 and aching in veins latex Allergy Intermediate RASH Verified 01/27/22 19:38 Penicillins Allergy Intermediate n/v, rash Verified 01/27/22 19:38 hepatitis B virus vaccine Allergy Unknown Unknown Verified 01/27/22 19:38 Anesthetics - Amide Type - AdvReac Intermediate Vomiting Verified 01/27/22 19:38 Select A [Anesthetics - Amide Type] Anesthetics - Juju Type- AdvReac Intermediate Vomiting Verified 01/27/22 19:38 Parabens ketorolac AdvReac Intermediate ITCHING. Verified 01/27/22 19:38 tromethamine AdvReac Intermediate ITCHING. Verified 01/27/22 19:38 aspirin AdvReac Unknown CONTRAINDICATED---currently Verified 01/27/22 19:38 with gastric ulcer, per pt Consultations 05/25/22 23:17 ED Decision to Admit Stat 05/26/22 08:00 Consult Podiatry Routine 05/26/22 10:03 Consult Orthopedic Surgery Routine Ordered Studies 05/25/22 21:17 US venous doppler LE RT Urgent 05/27/22 07:16 US arterial duplex LE RT Routine Hospital Course (1) Cellulitis of great toe of right foot: - right great toe with nonhealing wound in the setting of diabetes - mild erythema, no drainage - x-ray negative for osteo - patient with right knee replacement so likely not MRI compatible - has never seen a community health specialist - no community health specialist in house either - non toxic appearing - ortho consulted in lieu of podiatry - antibiotics d/c'd due to low concern for infection at this time - blood cultures drawn - ESR, CRP negative, WBC wnl, afebrile, minimal erythema on foot wound - arterial duplex on RLE without significant stenosis to right foot - ortho is not concerned about infection - wound care and podiatry/ortho follow up - discharge 05/28/2022 with follows up - continue to monitor (2) DM type 2 (diabetes mellitus, type 2): - a1c 6.3% 05/2022 - continue home insulin with lantus and SSI - FSG AC+HS - diabetic diet - tight glucose control given nonhealing right great toe wound (3) 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: - continue CPAP (4) Hypothyroidism: - continue home meds (5) Dyslipidemia: - continue statin (6) Hypertension: - continue home meds (7) History of CVA (cerebrovascular accident): - continue plavix and statin Plan DVT ppx: lovenox Code Status: Full Code Dispo: med/surg Bhavesh Mercer MD [facility] Medicine Total Time Total Time Spent Total Time Spent (In Minutes): 25 Total Time Includes: Examination of the Patient, Discharge Planning and Medication Reconciliation Discharge Plan Discharge Items Patient Disposition: Home - Self-Care Reason For Visit: WOUND Discharge Diagnosis: nonhealing toe wound Condition on Discharge: Good Activity: Resume your previous activity Non-emergency contact: Primary Care Provider and Surgeon Call non-emergency contact if: you have any medication questions and your symptoms worsen Follow-up/Referrals: Adria Hilliard MD [Primary Care Provider] - 06/01/22 9:40 am (Date & Time 06/01/2022 9:40 AM Provider Adria Hilliard MD [facility] ) Glo Zarate DPM [Physician] - Hayden Wallis MD [Physician] - Diet: Carb Consistent or DM2 and Heart Healthy Addtl Attending Provider Instructions: You were admitted for concern for right great toe infection and nonhealing wound. You were started on antibiotics, but labs and imaging as well as orthopedic surgery felt there was no infection and antibiotics could be stopped. You had wound care and blood sugar control. You should follow up with wound care and podiatry/orthopedic surgery for your toe. Continue to control your diabetes with your medications. Pending Studies at Discharge: No Stand-Alone Forms: [facility], Smoking Cessation Medications and DC Order Prescriptions: Continued lisinopril 20 mg Tablet 20 mg PO QAM Qty: 0 gabapentin 800 mg Tablet 800 mg PO BID Qty: 0 docusate sodium 100 mg Tablet 100 mg PO BID PRN (Reason: Constipation) cholecalciferol (vitamin D3) 1,000 unit Tablet 1,000 unit PO QAM bupropion HCl 100 mg Tablet 100 mg PO DAILY levothyroxine 125 mcg Tablet 125 mcg PO DAILYBB Rx Instructions: TAKE THIS MEDICATION AT LEAST 30 MINUTES BEFORE BREAKFAST OR ANY OTHER MEDICATIONS insulin lispro [Humalog KwikPen Insulin] 100 unit/mL Insulin Pen 10 unit SUBCUT TIDM Rx Instructions: INJECT 10 UNITS WITH EACH MEAL PLUS CF 1:30 OVER 130, TDD 60 UNITS PER DAY. insulin glargine [Basaglar KwikPen U-100 Insulin] 100 unit/mL (3 mL) Insulin Pen 20 unit SUBCUT BIDM dicyclomine 20 mg tablet 20 mg PO TID PRN (Reason: abdominal pain) Qty: 9 0RF rosuvastatin 20 mg tablet 20 mg PO DAILY Trulicity 3 mg/0.5 mL pen injector 3 mg SUBCUT WK Rx Instructions: TAKES ON MONDAYS sertraline 100 mg tablet 200 mg PO DAILY clopidogrel 75 mg tablet 75 mg PO DAILY metoprolol succinate 25 mg tablet extended release 24 hr 25 mg PO DAILY Discharge Orders: Discharge Order (Routine); Ordered 05/28/22 Ordered By: Bhavesh Tilley/Other Patient Handouts: Loss of Sensation: Safety Tips, Preventing Falls in the Home Admission Data Admit Date/Time: 05/26/22 01:05 Attending Provider: Bahvesh Mercer Admit Provider: Kamran Doe Primary Care Provider: Adria Hilliard Other Providers: Kamran Doe ; Glo Zarate ; Hayden Wallis Other Interventions: Discharge Summary Assessment (RN) Last Done: 05/28/22 13:53
== END 2022-05-28 14:30 | disposition home or self-care (01) | DRG 639 ==
LOC: ED 19:11 → 3E 05-26 01:05

== ENCOUNTER 2022-07-04 07:00 | Inpatient (IN) ==
[2022-07-04] MEDS ORDERED: ONDANSETRON INJ 2 MG/ML 2 ML VIAL IV STA (07:24)
[2022-07-04] MEDS ORDERED: HYDROmorphone INJ 0.5 MG/0.5 ML SYR IV STA ×3 (07:24→11:41)
[2022-07-04] MEDS ORDERED: SODIUM CHLORIDE 0.9% 1000ML 1,000 ML IV ONE (07:24)
[2022-07-04] MEDS ORDERED: methylPREDNISolone 125 MG/2 ML VIAL IV STA (07:27)
[2022-07-04] MEDS ORDERED: diphenhydrAMINE 50 MG/ML VIAL IV STA (07:27)
--- NOTE | 2022-07-04 07:36 | Emergency Department Note ---
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 LDL Cholesterol, Calc mg/dl VLDL Cholesterol, Calc (0-30) mg/dl HDL Cholesterol mg/dl Cholesterol/HDL Ratio (0-5) Lipase (11-82) U/L Procalcitonin (0-0.5) ng/ml Urine Color Urine Appearance (Clear) Urine pH (4.5-7.5) Ur Specific [place] (1.000-1.030) Urine Protein (Negative) Urine Glucose (UA) (Negative) Urine Ketones (Negative) Urine Blood (Negative) Urine Nitrite (Negative) Urine Bilirubin (Negative) Urine Urobilinogen (Negative) Ur Leukocyte Esterase (Negative) Urine WBC (Auto) (0-5) /hpf Urine RBC (Auto) (0-4) /hpf U Hyaline Cast (Auto) (0-5) /lpf U Epithel Cells (Auto) (0-5) /lpf Urine Bacteria (Auto) (Negative) Urine Opiates Screen Neg (Neg) Ur Methadone, Qual Neg (Neg) Urine Barbiturates Neg (Neg) Ur Phencyclidine (PCP) Neg (Neg) U Amphetamin/Meth Scrn Neg (Neg) MDMA (Ecstasy) Screen Pos H (Neg) U Benzodiazepines Scrn Neg (Neg) Ur Cocaine Metabolite Neg (Neg) U Marijuana (THC) Screen Neg (Neg) SARS-CoV-2, RNA, NAAT NEGATIVE (NEGATIVE) Imaging Data Attestation: I personally reviewed and interpreted this imaging study as follows: My Impression: My interpretation of a noncontrast CT of the head and cervical spine does not show any obvious fractures or subluxations. Osteopenia is noted. My interpretation of a CT with IV contrast of the chest, abdomen and thoracolumbar spine shows bilateral subacute/chronic rib fractures, as well as a chronic T11 compression fracture. My interpretation of the CT of the pelvis does not show obvious pelvic or hip fracture. My interpretation of left humerus x-rays shows mildly worsening angulation of the fracture with mild displacement. No shoulder or elbow dislocation noted. Radiologist reports were also reviewed. Radiologist's Impression: Abdomen/Pelvis CT 07/04/22 07:24 CT abd pelvis IV con only, CT lumbar spine w con CLINICAL HISTORY: Trauma TECHNIQUE: Helical axial images of the abdomen and pelvis were obtained and displayed. Automated dose lowering techniques and/or adjustment according to patient size were utilized for this exam. Dedicated images of the lumbar spine were obtained. This exam was performed with intravenous contrast. COMPARISON: Comparison is made to CT abdomen pelvis 08/10/2020 FINDINGS: Lower chest: Aortic valvular calcifications and mitral annular calcifications are noted. Liver: Unremarkable. No focal lesions are seen. Gallbladder and biliary tree: Patient is status post cholecystectomy. No intra- or extrahepatic biliary ductal dilation. Pancreas: Unremarkable, no focal lesions. Spleen: Mildly prominent spleen, unchanged. Adrenals: Unremarkable. Kidneys and ureters: Subcentimeter hypodensities are too small to characterize. Bladder: Unremarkable. Reproductive organs: Patient is status post hysterectomy. Bowel: Diverticulosis is seen without evidence of diverticulitis. The appendix is normal. Lymph nodes Retroperitoneal: Unremarkable. Pelvic: Unremarkable. Mesenteric: Unremarkable. Peritoneum: Normal. Vessels: Atherosclerotic calcifications are seen. Abdominal wall: Tiny fat-containing ventral hernia is seen. Bones: There is redemonstration of multiple compression deformities which are unchanged from prior exam. No acute fracture is seen. Partial visualization of old healed left rib fractures. IMPRESSION: 1. No acute abnormalities and in particular no evidence of acute fracture. Chronic vertebral body deformities are seen as above. 2. Diverticulosis without evidence of diverticulitis. ACT 112: Negative or not required by law. Electronically signed by: Boaz Carolina M.D. 07/04/2022 9:[address] 07/04/22 07:24 CT SCAN OF THE CERVICAL SPINE CLINICAL HISTORY: Fall. COMPARISON STUDY: CT of the cervical spine dated 04/12/2022. TECHNIQUE: CT scan of the cervical spine is performed from the skull base to the upper thoracic spine. Images are reviewed in the axial, sagittal, and coronal planes. IV contrast was not administered for this examination. A dose lowering technique was utilized adhering to the principles of ALARA. FINDINGS: Skeletal structures: The skeletal structures are osteopenic. There is no evidence of fracture or subluxation involving the cervical spine. Vertebral body height and alignment are maintained. There is straightening of the cervical lordosis. Anterior osteophytes are seen throughout. The odontoid process and lateral masses are intact. The atlantoaxial articulation is preserved noting productive degenerative change. The spinous processes appear intact. There is mild multilevel facet arthropathy. Intervertebral discs: There is moderate disc space narrowing at C5-C6 and C6-C7. Mild narrowing is seen at the remaining cervical levels. Central canal: Large posterior disc osteophyte complexes at C5-C6 and C6-C7 likely contribute to acquired compromise of the central canal. Soft tissues: The prevertebral and paraspinous soft tissues are within normal limits. There is atherosclerotic calcification of the carotid bulbs. Calvarium: The visualized calvarium at the skull base appears intact. Brain parenchyma: Partially visualized brain parenchyma at the skull base is within normal limits. Sinuses and mastoids: The visualized paranasal sinuses are clear. The mastoid air cells are well pneumatized. Lung apices: Clear as visualized. IMPRESSION: 1. There is no evidence of fracture or subluxation involving the cervical spine. 2. Osteopenia and spondylotic change as above. ACT 112: Negative or not required by law. Electronically signed by: Félix Cisneros M.D. 07/04/2022 9:[address] 07/04/22 07:24 CT SCAN OF THE CHEST WITH IV CONTRAST; CT SCAN OF THE THORACIC SPINE WITH IV CONTRAST CLINICAL HISTORY: Fall. Trauma. COMPARISON STUDY: Chest CT dated 04/12/2022. Radiographs of the left humerus dated 06/01/2022. TECHNIQUE: Following the IV administration of 94 cc of Optiray 350, CT scan of the thorax was performed from the thoracic inlet to the upper abdomen. Additionally, CT scan of the thoracic spine is performed from the lower cervical spine to the upper lumbar spine. Images for both examinations are reviewed in the axial, sagittal, and coronal planes. IV contrast was administered without complication. A dose lowering technique was utilized adhering to the principles of ALARA. The examination is degraded by streak artifact from the arms which could not be elevated above the chest. CT DOSE: 2515.75 mGy.cm FINDINGS: Thyroid: Imaged portions of the thyroid gland are normal in size and attenuation. Thoracic aorta: There is moderate atherosclerotic calcification of the thoracic aorta, which is normal in caliber and demonstrates standard 3-vessel arch anato my. No dissection is seen. Pulmonary vasculature: The pulmonary trunk is normal in caliber. There are no filling defects identified in the central pulmonary vessels to indicate pulmonary embolus. Note that this examination was not protocoled for evaluation of the pulmonary arteries. Heart: The heart is top normal in size and without pericardial effusion. Lungs and pleural spaces: There is no airspace consolidation, pleural effusion, or pneumothorax. The trachea and central airways are clear. Mediastinum: There is no mediastinal hematoma or lymphadenopathy. Rachel: Clear. Axillae: There is no axillary lymphadenopathy. Upper abdomen: The spleen is mildly enlarged, measuring 13.4 cm in length. The liver is steatotic. A small hiatal hernia is noted. See report of abdominal CT performed concurrently for detailed intra-abdominal findings. Skeletal structures: The skeletal structures are osteopenic. See below for discussion of the thoracic spine. No lytic or blastic bony lesions are seen. A comminuted subacute fracture with this plate fragments is partially visualized in the left humeral shaft. Soft tissue swelling is partially visualized in the left shoulder. There are subacute/healing right anterior rib fractures. There are chronic/healed left-sided rib fractures. There is chronic posttraumatic deformity of the sternum. No acute fracture is seen involving the bony thorax. THORACIC SPINE: There is no evidence of acute fracture or malalignment. There is a mild chronic superior endplate compression deformity of T11. Vertebral body height is otherwise maintained throughout the thoracic spine. Alignment is preserved. Anterior osteophytes are seen throughout. The transverse and spinous processes are intact. The disc spaces are preserved. There is no evidence of large disc herniation or high-grade central canal stenosis by CT. The paraspinous soft tissues are normal in appearance. IMPRESSION: 1. There is no acute posttraumatic intrathoracic abnormality. 2. There is no airspace consolidation, pleural effusion, or pneumothorax. 3. A subacute left humeral shaft fracture is partially visualized and there are subacute right anterior rib fractures. 4. There is no evidence of acute fracture or malalignment involving the thoracic spine. 5. Additional chronic fractures as above. 6. Hepatic steatosis and mild splenomegaly. 7. Additional findings as above. ACT 112: Negative or not required by law. Electronically signed by: Félix Cisneros M.D. 07/04/2022 9:[address] 07/04/22 07:24 CT SCAN OF THE BRAIN WITHOUT IV CONTRAST CLINICAL HISTORY: Trauma. COMPARISON STUDY: CT of the brain dated 06/01/2022. TECHNIQUE: Unenhanced axial CT scan of the brain is performed from the vertex to the skull base. A dose lowering technique was utilized adhering to the principles of ALARA. FINDINGS: Brain parenchyma: There is age-related involutional change noting mild subcortical and periventricular microangiopathic disease. There is no hemorrhage, mass effect, or evidence of acute territorial ischemia by CT criteria. Abernathy-white matter differentiation is preserved. No extra-axial fluid collection is seen. Ventricles, sulci, cisterns: Prominent secondary to involutional change. Intracranial vasculature: There is atherosclerotic calcification of the cavernous carotid arteries. Calvarium: The skeletal structures are osteopenic. No depressed calvarial fracture is identified. Sinuses and mastoids: The visualized paranasal sinuses are clear. The mastoid air cells are well pneumatized. Orbits: The bony orbits are grossly intact. There is evidence of bilateral ocular lens surgery. IMPRESSION: There is no hemorrhage, mass effect, or evidence of acute terr itorial ischemia by CT criteria. ACT 112: Negative or not required by law. Electronically signed by: Félix Cisneros M.D. 07/04/2022 9:[address] 07/04/22 07:25 CT abd pelvis IV con only, CT lumbar spine w con CLINICAL HISTORY: Trauma TECHNIQUE: Helical axial images of the abdomen and pelvis were obtained and displayed. Automated dose lowering techniques and/or adjustment according to patient size were utilized for this exam. Dedicated images of the lumbar spine were obtained. This exam was performed with intravenous contrast. COMPARISON: Comparison is made to CT abdomen pelvis 08/10/2020 FINDINGS: Lower chest: Aortic valvular calcifications and mitral annular calcifications are noted. Liver: Unremarkable. No focal lesions are seen. Gallbladder and biliary tree: Patient is status post cholecystectomy. No intra- or extrahepatic biliary ductal dilation. Pancreas: Unremarkable, no focal lesions. Spleen: Mildly prominent spleen, unchanged. Adrenals: Unremarkable. Kidneys and ureters: Subcentimeter hypodensities are too small to characterize. Bladder: Unremarkable. Reproductive organs: Patient is status post hysterectomy. Bowel: Diverticulosis is seen without evidence of diverticulitis. The appendix is normal. Lymph nodes Retroperitoneal: Unremarkable. Pelvic: Unremarkable. Mesenteric: Unremarkable. Peritoneum: Normal. Vessels: Atherosclerotic calcifications are seen. Abdominal wall: Tiny fat-containing ventral hernia is seen. Bones: There is redemonstration of multiple compression deformities which are unchanged from prior exam. No acute fracture is seen. Partial visualization of old healed left rib fractures. IMPRESSION: 1. No acute abnormalities and in particular no evidence of acute fracture. Chronic vertebral body deformities are seen as above. 2. Diverticulosis without evidence of diverticulitis. ACT 112: Negative or not required by law. Electronically signed by: Boaz Carolina M.D. 07/04/2022 9:[address] 07/04/22 07:25 CT SCAN OF THE CHEST WITH IV CONTRAST; CT SCAN OF THE THORACIC SPINE WITH IV CONTRAST CLINICAL HISTORY: Fall. Trauma. COMPARISON STUDY: Chest CT dated 04/12/2022. Radiographs of the left humerus dated 06/01/2022. TECHNIQUE: Following the IV administration of 94 cc of Optiray 350, CT scan of the thorax was performed from the thoracic inlet to the upper abdomen. Additionally, CT scan of the thoracic spine is performed from the lower cervical spine to the upper lumbar spine. Images for both examinations are reviewed in the axial, sagittal, and coronal planes. IV contrast was administered without complication. A dose lowering technique was utilized adhering to the principles of ALARA. The examination is degraded by streak artifact from the arms which could not be elevated above the chest. CT DOSE: 2515.75 mGy.cm FINDINGS: Thyroid: Imaged portions of the thyroid gland are normal in size and attenuation. Thoracic aorta: There is moderate atherosclerotic calcification of the thoracic aorta, which is normal in caliber and demonstrates standard 3-vessel arch anatomy. No dissection is seen. Pulmonary vasculature: The pulmonary trunk is normal in caliber. There are no filling defects identified in the central pulmonary vessels to indicate pulmonary embolus. Note that this examination was not protocoled for evaluation of the pulmonary arteries. Heart: The heart is top normal in size and without pericardial effusion. Lungs and pleural spaces: There is no airspace consolidation, pleural effusion, or pneumothorax. The trachea and central airways are clear. Mediastinum: There is no mediastinal hematoma or lymphadenopathy. Rachel: Clear. Axillae: There is no axillary lymphadenopathy. Upper abdomen: The spleen is mildly enlarged, measuring 13.4 cm in length. The liver is steatotic. A small hiatal hernia is noted. See report of abdominal CT performed concurrently for detailed intra-abdominal findings. Skeletal structures: The skeletal structures are osteopenic. See below for discussion of the thoracic spine. No lytic or blastic bony lesions are seen. A comminuted subacute fracture with this plate fragments is partially visualized in the left humeral shaft. Soft tissue swelling is partially visualized in the left shoulder. There are subacute/healing right anterior rib fractures. There are chronic/healed left-sided rib fractures. There is chronic posttraumatic deformity of the sternum. No acute fracture is seen involving the bony thorax. THORACIC SPINE: There is no evidence of acute fracture or malalignment. There is a mild chronic superior endplate compression deformity of T11. Vertebral body height is otherwise maintained throughout the thoracic spine. Alignment is preserved. Anterior osteophytes are seen throughout. The transverse and spinous processes are intact. The disc spaces are preserved. There is no evidence of large disc herniation or high-grade central canal stenosis by CT. The paraspinous soft tissues are normal in appearance. IMPRESSION: 1. There is no acute posttraumatic intrathoracic abnormality. 2. There is no airspace consolidation, pleural effusion, or pneumothorax. 3. A subacute left humeral shaft fracture is partially visualized and there are subacute right anterior rib fractures. 4. There is no evidence of acute fracture or malalignment involving the thoracic spine. 5. Additional chronic fractures as above. 6. Hepatic steatosis and mild splenomegaly. 7. Additional findings as above. ACT 112: Negative or not required by law. Electronically signed by: Félix Cisneros M.D. 07/04/2022 9:24 AM Humerus X-Ray 07/04/22 07:29 XR humerus LT 2V CLINICAL HISTORY: Fall, recent fx TECHNIQUE: 2 radiographic views of the left humerus were obtained. Comparison: Comparison is made to left humerus radiograph 06/01/2022 FINDINGS: A nonunited spiral fracture is seen which likely represents displacement of previously noted spiral fracture of the humerus. There is faint bony bridging se en. Soft tissue swelling is seen. IMPRESSION: Nonunited appearance of the spiral fracture of the humerus with some bony bridging compatible with interval early healing changes. ACT 112: Negative or not required by law. Electronically signed by: Boaz Carolina M.D. 07/04/2022 10:04 AM ECG Data Attestation: I personally reviewed and interpreted this ECG as follows: Indication: + other (Fall, trauma) Rate (beats per minute): 91 Rhythm: + normal sinus ECG Intervals/blocks: + Normal QT and + Normal TN ECG Findings: + Other (Nonspecific intraventricular conduction block) Comparison ECG Date: from (06/01/2022) Change: no significant change Prescription Drug Monitoring [place] Drug Monitoring Program reviewed and findings noted below (Patient does receive regular prescriptions for opioids secondary to her recent left humeral fracture) Blood Pressure Blood Pressure Findings: Elevated blood pressure Blood Pressure Disposition: elevated BP felt to be situational MDM Narrative Cardiac monitoring: An order was placed for continuous cardiac monitoring. The monitor shows a rate of 91 bpm with a normal sinus rhythm. civil attorney history was reviewed throughout the evaluation, and no dysrhythmias were noted. The patient presents to the emergency department for evaluation of injuries from a fall. The patient is unable to ambulate. Fortunately, no obvious fractures are noted within the left pelvic or hip region. Patient also is currently being managed for a left humeral spiral fracture that appears to have been somewhat angulated and mildly displaced from previous x-rays. Orthopedics has recommended nonsurgical management. Because the patient is unable to weight- bear, I do feel that hospitalist management with PT/OT evaluation is warranted. Patient has no other concerning laboratory or ECG findings that may have precipitated or a result of her fall. Impression & Plan Closed left humeral fracture, Acute pain of left hip, Contusion of rib on left side, Inability to ambulate due to hip, Status post fall Discharge Plan Visit Data Chief Complaint: Hip Pain Stated Complaint: FALL, HIP PAIN ED Provider: Efrain Lai ED Midlevel Provider: Keshav Saavedra Discharge Problem: Closed left humeral fracture, Acute pain of left hip, Contusion of rib on left side, Inability to ambulate due to hip, Status post fall Patient Disposition: Admitted As Inpatient Discharge Instructions Interventions: ED Discharge Assessment Last Done: 07/04/22 14:50
[2022-07-04 08:07] LABS: Hematocrit (blood only) 36.3 % (34.1-44.9); Hemoglobin 12.3 g/dl (12.0-16.0); Mean Corpuscular Hemoglobin 31.1 pg (25.0-34.0); Mean Corpuscular Hgb Conc 33.9 g/dL (32.0-36.0); Mean Corpuscular Volume 91.7 fL (80.0-100.0); Mean Platelet Volume 9.5 fL (9.4-12.3); Platelet Count 109 K/uL (130-400); Prothrombin Time 10.9 Seconds (9.0-12.0); RDW Coefficient of Variation 12.5 % (11.5-14.5); Red Blood Count 3.96 M/uL (3.93-5.22); White Blood Count 7.04 K/ul (4.8-10.8)
[2022-07-04 08:18] LABS: Basophils # (auto) 0.04 K/uL (0-0.2); Basophils % (auto) 0.6 %; Eosinophils # (auto) 0.03 K/uL (0-0.50); Eosinophils % (auto) 0.4 %; Immature Granulocytes # (auto) 0.03 K/uL (0.00-0.02); Immature Granulocytes % (auto) 0.4 %; Lymphocytes # (auto) 1.06 K/uL (1.2-3.4); Lymphocytes % (auto) 15.1 %; Monocytes # (auto) 0.41 K/uL (0.24-0.82); Monocytes % (auto) 5.8 %; Neutrophils # (auto) 5.47 K/uL (1.4-6.5); Neutrophils % (auto) 77.7 %
[2022-07-04 08:19] LABS: Alanine Aminotransferase 17 U/L (7-52); Albumin Globulin Ratio 1.2 (0.9-2); Albumin Level 4.1 gm/dl (3.4-5.0); Alkaline Phosphatase 222 U/L (34-104); Anion Gap 10 (3-11); Aspartate Aminotransferase 23 U/L (13-39); BUN Creatinine Ratio 16.7 (10-20); Bilirubin,Total 0.7 mg/dl (0.2-1.0); Blood Urea Nitrogen 13 mg/dl (6-23); C Reactive Protein < 0.50 mg/dl (0-0.5); Calcium 9.5 mg/dl (8.5-10.1); Carbon Dioxide 22 mmol/L (21-32); Chloride 106 mmol/L (98-107); Creatine Kinase 49 U/L (26-192); Est GFR (African American) 91.8 ml/min; Est GFR (Non-African American) 79.2 ml/min; Globulin 3.4 gm/dl (2.5-4.0); Glucose 219 mg/dl (70-99(Fasting)); Potassium 3.7 mmol/L (3.5-5.1); Sodium 138 mmol/L (136-145); Total Protein 7.5 gm/dl (6.0-8.3)
[2022-07-04 08:22] LABS: Troponin I High Sensitivity 6.2 pg/ml (0-14)
[2022-07-04] MEDS ORDERED: OPTIRAY 350 100ml IV ONE (08:52)
--- NOTE | 2022-07-04 09:09 | CT Scan Report ---
CT SCAN OF THE BRAIN WITHOUT IV CONTRAST CLINICAL HISTORY: Trauma. COMPARISON STUDY: CT of the brain dated 06/01/2022. TECHNIQUE: Unenhanced axial CT scan of the brain is performed from the vertex to the skull base. A do se lowering technique was utilized adhering to the principles of ALARA. FINDINGS: Brain parenchyma: There is age-related involutional change noting mild subcortical and periventricula r microangiopathic disease. There is no hemorrhage, mass effect, or evidence of acute territorial isc hemia by CT criteria. Abernathy-white matter differentiation is preserved. No extra-axial fluid collection is seen. Ventricles, sulci, cisterns: Prominent secondary to involutional change. Intracranial vasculature: There is atherosclerotic calcification of the cavernous carotid arteries. Calvarium: The skeletal structures are osteopenic. No depressed calvarial fracture is identified. Sinuses and mastoids: The visualized paranasal sinuses are clear. The mastoid air cells are well pneu matized. Orbits: The bony orbits are grossly intact. There is evidence of bilateral ocular lens surgery. IMPRESSION: There is no hemorrhage, mass effect, or evidence of acute territorial ischemia by CT iraj lizama. ACT 112: Negative or not required by law. Electronically signed by: Félix Cisneros M.D. 07/04/2022 9:08 AM
--- NOTE | 2022-07-04 09:13 | CT Scan Report ---
CT SCAN OF THE CERVICAL SPINE CLINICAL HISTORY: Fall. COMPARISON STUDY: CT of the cervical spine dated 04/12/2022. TECHNIQUE: CT scan of the cervical spine is performed from the skull base to the upper thoracic spine . Images are reviewed in the axial, sagittal, and coronal planes. IV contrast was not administered fo r this examination. A dose lowering technique was utilized adhering to the principles of ALARA. FINDINGS: Skeletal structures: The skeletal structures are osteopenic. There is no evidence of fracture or subl uxation involving the cervical spine. Vertebral body height and alignment are maintained. There is s traightening of the cervical lordosis. Anterior osteophytes are seen throughout. The odontoid process and lateral masses are intact. The atlantoaxial articulation is preserved noting productive degenera tive change. The spinous processes appear intact. There is mild multilevel facet arthropathy. Intervertebral discs: There is moderate disc space narrowing at C5-C6 and C6-C7. Mild narrowing is se en at the remaining cervical levels. Central canal: Large posterior disc osteophyte complexes at C5-C6 and C6-C7 likely contribute to acqu ired compromise of the central canal. Soft tissues: The prevertebral and paraspinous soft tissues are within normal limits. There is athero sclerotic calcification of the carotid bulbs. Calvarium: The visualized calvarium at the skull base appears intact. Brain parenchyma: Partially visualized brain parenchyma at the skull base is within normal limits. Sinuses and mastoids: The visualized paranasal sinuses are clear. The mastoid air cells are well pneu matized. Lung apices: Clear as visualized. IMPRESSION: 1. There is no evidence of fracture or subluxation involving the cervical spine. 2. Osteopenia and spondylotic change as above. ACT 112: Negative or not required by law. Electronically signed by: Félix Cisneros M.D. 07/04/2022 9:11 AM
--- NOTE | 2022-07-04 09:26 | CT Scan Report ---
CT SCAN OF THE CHEST WITH IV CONTRAST; CT SCAN OF THE THORACIC SPINE WITH IV CONTRAST CLINICAL HISTORY: Fall. Trauma. COMPARISON STUDY: Chest CT dated 04/12/2022. Radiographs of the left humerus dated 06/01/2022. TECHNIQUE: Following the IV administration of 94 cc of Optiray 350, CT scan of the thorax was perform ed from the thoracic inlet to the upper abdomen. Additionally, CT scan of the thoracic spine is perfo rmed from the lower cervical spine to the upper lumbar spine. Images for both examinations are review ed in the axial, sagittal, and coronal planes. IV contrast was administered without complication. A dose lowering technique was utilized adhering to the principles of ALARA. The examination is degraded by streak artifact from the arms which could not be elevated above the chest. CT DOSE: 2515.75 mGy.cm FINDINGS: Thyroid: Imaged portions of the thyroid gland are normal in size and attenuation. Thoracic aorta: There is moderate atherosclerotic calcification of the thoracic aorta, which is mohinder l in caliber and demonstrates standard 3-vessel arch anatomy. No dissection is seen. Pulmonary vasculature: The pulmonary trunk is normal in caliber. There are no filling defects identif ied in the central pulmonary vessels to indicate pulmonary embolus. Note that this examination was no t protocoled for evaluation of the pulmonary arteries. Heart: The heart is top normal in size and without pericardial effusion. Lungs and pleural spaces: There is no airspace consolidation, pleural effusion, or pneumothorax. The trachea and central airways are clear. Mediastinum: There is no mediastinal hematoma or lymphadenopathy. Rachel: Clear. Axillae: There is no axillary lymphadenopathy. Upper abdomen: The spleen is mildly enlarged, measuring 13.4 cm in length. The liver is steatotic. A small hiatal hernia is noted. See report of abdominal CT performed concurrently for detailed intra-ab dominal findings. Skeletal structures: The skeletal structures are osteopenic. See below for discussion of the thoracic spine. No lytic or blastic bony lesions are seen. A comminuted subacute fracture with this plate fra gments is partially visualized in the left humeral shaft. Soft tissue swelling is partially visualize d in the left shoulder. There are subacute/healing right anterior rib fractures. There are chronic/he aled left-sided rib fractures. There is chronic posttraumatic deformity of the sternum. No acute frac ture is seen involving the bony thorax. THORACIC SPINE: There is no evidence of acute fracture or malalignment. There is a mild chronic super ior endplate compression deformity of T11. Vertebral body height is otherwise maintained throughout t he thoracic spine. Alignment is preserved. Anterior osteophytes are seen throughout. The transverse a nd spinous processes are intact. The disc spaces are preserved. There is no evidence of large disc he rniation or high-grade central canal stenosis by CT. The paraspinous soft tissues are normal in appea olga. IMPRESSION: 1. There is no acute posttraumatic intrathoracic abnormality. 2. There is no airspace consolidation, pleural effusion, or pneumothorax. 3. A subacute left humeral shaft fracture is partially visualized and there are subacute right anteri or rib fractures. 4. There is no evidence of acute fracture or malalignment involving the thoracic spine. 5. Additional chronic fractures as above. 6. Hepatic steatosis and mild splenomegaly. 7. Additional findings as above. ACT 112: Negative or not required by law. Electronically signed by: Félix Cisneros M.D. 07/04/2022 9:24 AM
--- NOTE | 2022-07-04 09:35 | CT Scan Report ---
CT abd pelvis IV con only, CT lumbar spine w con CLINICAL HISTORY: Trauma TECHNIQUE: Helical axial images of the abdomen and pelvis were obtained and displayed. Automated dose lowering techniques and/or adjustment according to patient size were utilized for this exam. Dedicat ed images of the lumbar spine were obtained. This exam was performed with intravenous contrast. COMPARISON: Comparison is made to CT abdomen pelvis 08/10/2020 FINDINGS: Lower chest: Aortic valvular calcifications and mitral annular calcifications are noted. Liver: Unremarkable. No focal lesions are seen. Gallbladder and biliary tree: Patient is status post cholecystectomy. No intra- or extrahepatic bilia ry ductal dilation. Pancreas: Unremarkable, no focal lesions. Spleen: Mildly prominent spleen, unchanged. Adrenals: Unremarkable. Kidneys and ureters: Subcentimeter hypodensities are too small to characterize. Bladder: Unremarkable. Reproductive organs: Patient is status post hysterectomy. Bowel: Diverticulosis is seen without evidence of diverticulitis. The appendix is normal. Lymph nodes Retroperitoneal: Unremarkable. Pelvic: Unremarkable. Mesenteric: Unremarkable. Peritoneum: Normal. Vessels: Atherosclerotic calcifications are seen. Abdominal wall: Tiny fat-containing ventral hernia is seen. Bones: There is redemonstration of multiple compression deformities which are unchanged from prior ex am. No acute fracture is seen. Partial visualization of old healed left rib fractures. IMPRESSION: 1. No acute abnormalities and in particular no evidence of acute fracture. Chronic vertebral body de formities are seen as above. 2. Diverticulosis without evidence of diverticulitis. ACT 112: Negative or not required by law. Electronically signed by: Boaz Carolina M.D. 07/04/2022 9:33 AM
--- NOTE | 2022-07-04 10:05 | XRay Report ---
XR humerus LT 2V CLINICAL HISTORY: Fall, recent fx TECHNIQUE: 2 radiographic views of the left humerus were obtained. Comparison: Comparison is made to left humerus radiograph 06/01/2022 FINDINGS: A nonunited spiral fracture is seen which likely represents displacement of previously noted spiral f racture of the humerus. There is faint bony bridging seen. Soft tissue swelling is seen. IMPRESSION: Nonunited appearance of the spiral fracture of the humerus with some bony bridging compatible with in terval early healing changes. ACT 112: Negative or not required by law. Electronically signed by: Boaz Carolina M.D. 07/04/2022 10:04 AM
[2022-07-04 10:24] LABS: Appearance Urine Clear (Clear); Bacteria Urine Automated Negative (Negative); Bilirubin Urine Negative (Negative); Blood Urine Negative (Negative); Cast Urine Automated 0 /lpf (0-5); Color Urine Yellow; Glucose Urine UA Negative (Negative); Ketones Urine Negative (Negative); Leukocyte Esterase Urine 1+ (Negative); Nitrite Urine Negative (Negative); Protein Urine Negative (Negative); RBC Urine Automated 0-4 /hpf (0-4); Specific Gravity Urine 1.026 (1.000-1.030); Urobilinogen Urine Negative (Negative); pH Urine 6.5 (4.5-7.5)
[2022-07-04 10:41] LABS: Amphetamines+Metham, Urine Neg (Neg); Barbiturates, Urine Neg (Neg); Benzodiazepine, Urine Neg (Neg); Cocaine, Urine Neg (Neg); MDMA (Ecstacy), Urine Pos (Neg); Methadone, Urine Neg (Neg); Opiate, Urine Neg (Neg); Phencyclidine, Urine Neg (Neg)
--- NOTE | 2022-07-04 11:41 | History & Physical Report ---
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 Comparison is made to left humerus radiograph 06/01/2022 FINDINGS: A nonunited spiral fracture is seen which likely represents displacement of previously noted spiral fracture of the humerus. There is faint bony bridging seen. Soft tissue swelling is seen. IMPRESSION: Nonunited appearance of the spiral fracture of the humerus with some bony bridging compatible with interval early healing changes. ACT 112: Negative or not required by law. Electronically signed by: Boaz Carolina M.D. 07/04/2022 10:04 AM Code Status & VTE Plan Code Status Full code in the event of cardiac or respiratory arrest VTE Prophylaxis Plan VTE Prophylaxis will be ordered: Yes Supervising Physician Co-Signing Physician Notes Pt is a 67 y/o F with hx of IDDM, CVA, Hypothyroidism, 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, hx of PE, HTN, Depression, recent hx of R toe cellulitis and L humerus fracture admitted for L hip pain and L arm pain after another fall today. PE: Obese pt, NAD Lungs: CTA, no wheezing or crackles Cardiac: normal S1/S2, no murmur Abd: ND, NT, soft MSK: L arm in a sling, good data report analyst strength of the L hand, No deformities or hematoma of the L hip but TTP of the Lateral hip area, R toe wound is healing well. Psych: AAOx3, normal affect A/P: Fall with L hip Pain and L arm pain: -CT abd/pelvis, CT L spine and T spine: no acute fracture -L humerus xray: fracture appearing to be healing normally --- will consult ortho for further recommendation -pt takes gabapentin at home once a day ---- due DDD will try TID gabapentin -pt takes Dilaudid at home --- could be contributing to the fall --- will change it to oxycodone 5mg q6hr prn and Tylenol prn -PT/OT consult Elevated LA: -normal Wbc -per pt she had diarrhea last 2 days --- CT abd: unremarkable -UA neg -s/p NS fluids -repeat LA Other chronic conditions: plan as above Agree with A/P by DALI Melgar (1) DM type 2 (diabetes mellitus, type 2) Diabetes mellitus complication status: without complication Diabetes mellitus manager intermediate insulin use: with manager intermediate use Qualified Code(s): E11.9 - Type 2 diabetes mellitus without complications; 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
[2022-07-04] MEDS ORDERED: GLUCOSE 40% GEL 15 GM TUBE PO PRN (12:32)
[2022-07-04] MEDS ORDERED: GLUCAGON FOR INJ 1 MG VIAL SQ PRN (12:32)
[2022-07-04] MEDS ORDERED: GLUCOSE 10 TAB/TUBE PO PRN (12:32)
[2022-07-04] MEDS ORDERED: PHARMACY GLYCEMIC MGMT CONSULT PRN (12:32)
[2022-07-04] MEDS ORDERED: CARBOHYDRATES FOR HYPOGLYCEMIA PO PRN (12:32)
[2022-07-04] MEDS ORDERED: DEXTROSE 50% 50 ML SYRINGE IV PRN (12:32)
[2022-07-04] MEDS ORDERED: MUPIROCIN 2% OINT 22 GM TUBE TOP SCH (13:15)
[2022-07-04 13:39] LABS: Chol HDL Ratio 7.1 (0-5)
[2022-07-04] MEDS ORDERED: ONDANSETRON 4 MG OD TAB PO PRN (14:05)
[2022-07-04] MEDS ORDERED: DOCUSATE SODIUM 100 MG CAP PO PRN (14:06)
--- NOTE | 2022-07-04 14:39 | Pharmacy Report ---
Pharmacy Glycemic Short Note 2 - Date of Service July 04, 2022 - Glycemic Short BSG Results (Last 24 hours): 07/04/22 07:35 Glucose 219 H OUTPATIENT ANTIDIABETIC REGIMEN: * Lantus 20 units BID, Novolog 8 units with dinner, Trulicity weekly * A1c 6.3% 05/26/22 ASSESSMENT: * Patient admitted with fall, hip pain. Currently ordered a diet. Ortho consulted * BSG on labs this morning 219 mg/dL. * Home regimen more Basal heavy, will aim for more 50:50 split while inpatient * Start with weight based stress of 2 novolog dosing, and scale for lantus PLAN FOR INPATIENT GLYCEMIC CONTROL: * Hold outpatient oral diabetes medications * Basal insulin * Lantus 13/16 units SQ BID * Bolus insulin * NovoLog per scale ACHS or Q6hrs while NPO * Goal Range: Low 110 mg/dL - High 140 mg/dL * Correction Factor: 30 mg/dL/unit * Nutritional / Prandial insulin per carb ratio of 1 unit per 10 grams CHO consumed
--- NOTE | 2022-07-04 14:49 | XRay Report ---
XR hip LT 2V w pelvis CLINICAL HISTORY: left hip pain TECHNIQUE: 2 views of the left hip and single frontal view of the pelvis were obtained. Comparison: None available at the time of this dictation. FINDINGS: There is no evidence of an acute fracture. Degenerative changes are seen in the hip joint. Osteoporos is is seen. IMPRESSION: Degenerative changes without evidence of acute abnormality. ACT 112: Negative or not required by law. Electronically signed by: Boaz Carolina M.D. 07/04/2022 2:48 PM
[2022-07-04] MEDS ORDERED: POLYETHYLENE (MIRALAX) 17 GM PACK PO PRN (15:51)
[2022-07-04] MEDS ORDERED: ONDANSETRON INJ 2 MG/ML 2 ML VIAL IV PRN (15:51)
[2022-07-04] MEDS ORDERED: MAGNESIUM HYDROXIDE SUSP 30 ML UDC PO PRN (15:51)
[2022-07-04] MEDS ORDERED: ALUMINUM/MAGNESIUM SUSP 30 ML UDC PO PRN (15:51)
[2022-07-04] MEDS: oxyCODONE HCL IR 5 MG TAB (IMMEDIATE RELEASE) PO PRN (16:20)
[2022-07-04] MEDS: LIDOCAINE 5% 1 PATCH TD SCH (16:43)
[2022-07-04] MEDS: GABAPENTIN 800 MG TAB PO SCH ×2 (16:44→20:19)
[2022-07-04] MEDS: buPROPion HCl 100 MG TABLET PO SCH (16:45)
[2022-07-04] MEDS: INSULIN ASPART PER UNIT SC SCH ×3 (17:44→20:44)
[2022-07-04] MEDS ORDERED: oxyCODONE HCL IR 5 MG TAB (IMMEDIATE RELEASE) PO STA (20:06)
[2022-07-04] MEDS ORDERED: LORazepam 0.5 MG TAB PO STA (20:34)
[2022-07-04] MEDS: LANTUS PER UNIT CHARGE SQ SCH (20:43)
[2022-07-05] MEDS: LEVOTHYROXINE SODIUM 125 MCG TABLET PO SCH (06:39)
[2022-07-05 07:34] LABS: Hematocrit (blood only) 30.5 % (34.1-44.9); Hemoglobin 10.3 g/dl (12.0-16.0); Mean Corpuscular Hemoglobin 30.9 pg (25.0-34.0); Mean Corpuscular Hgb Conc 33.8 g/dL (32.0-36.0); Mean Corpuscular Volume 91.6 fL (80.0-100.0); Mean Platelet Volume 9.7 fL (9.4-12.3); Platelet Count 91 K/uL (130-400); RDW Coefficient of Variation 12.6 % (11.5-14.5); RDW Standard Deviation 42.1 fL (36.4-46.3); Red Blood Count 3.33 M/uL (3.93-5.22); White Blood Count 7.18 K/ul (4.8-10.8)
[2022-07-05 07:37] LABS: Estimated Average Glucose 154 mg/dl
[2022-07-05 07:52] LABS: Anion Gap 4 (3-11); BUN Creatinine Ratio 21.3 (10-20); Blood Urea Nitrogen 19 mg/dl (6-23); Calcium 8.7 mg/dl (8.5-10.1); Carbon Dioxide 27 mmol/L (21-32); Chloride 107 mmol/L (98-107); Est GFR (African American) 78.3 ml/min; Est GFR (Non-African American) 67.5 ml/min; Glucose 122 mg/dl (70-99(Fasting)); Magnesium 1.9 mg/dl (1.7-2.4); Potassium 3.9 mmol/L (3.5-5.1); Sodium 138 mmol/L (136-145)
--- NOTE | 2022-07-05 08:37 | Hospitalist Progress Note ---
Date of Service July 05, 2022 Assessment & Plan (1) Fall: (2) Ambulatory dysfunction: (3) Hypertension: (4) DM type 2 (diabetes mellitus, type 2): (5) Dyslipidemia: (6) Depression: (7) Anxiety: (8) 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: (9) History of pulmonary embolism: (10) History of CVA (cerebrovascular accident): Plan 67-year-old female presented to the [facility] ED status post mechanical fall. Additional PMH H includes hypertension, hyperlipidemia, insulin-dependent diabetic, TONE, depression and anxiety. Patient being followed by Dr. Gooden for spiral humeral fracture current treatment is splint. Pain control. Patient on Plavix status post PE in 2012. Patient had 2 strokes in the . Fall: Ambulatory dysfunction: Baseline ambulates with a cane Multiple fractures in the past including spiral humerus fracture and rib fractures Head CT: Negative Cervical Spine CT: Negative for fracture; + osteopenia and spondylitic change Humeral x-ray: subacute displaced fracture, shifted Ortho Consult placed: ED physician spoke with Dr. Gooden Pain control: Was on oral Dilaudid 2 to 4 mg p.o. every 6 as outpatient; received Dilaudid IV 0.5 mg x 3 while in ED; will transition to oral oxycodone Opioid use may be contributing factor to increased falls Lidocaine patch ordered ECHO ordered last ECHO 2016 EF 65-69% and mild grade I diastolic dysfx PT/OT when cleared by Ortho L hip pain, intertrochanteric fracture within the proximal left femur Pt seen by orthopedics and MRI of L hip obtained - showing Intertrochanteric fracture of the proximal left femur Pt to be taken into OR for surg. repair w/ Dr. Gooden Hypertension: Increased BP in ED 191/70; likely related to pain Takes lisinopril, metoprolol; continue Creatinine: 0.78 Continue to monitor BP HLD: takes rosuvastatin; continue IDDM, type 2: Peripheral neuropathy: Takes Lantus 20 units SQ QAM/PM; continue Lantus with adjustments as outlined Takes Novolog 8units SQ before dinner Takes Trulicity weekly; hold while here: last dose: Takes Gabapentin 800 mg daily we will increase to 3 times daily for neuropathy; Last A1c 03/03: 6.8 Consult Glycemic Pharmacy History of PE: History of CVA: PE 2012, CVA x2 about 15 or 20 years ago Takes Plavix; hold for now until cleared by Ortho Patient was on Coumadin for PE transitioned to Plavix due to increased fall risk Takes Rosuvastatin; continue Resume plavix or other DVT prophylaxis as per ortho Obstructive Sleep Apnea: Becomes hypoxic when sleeping Uses CPAP at home nightly; to bring in home CPAP Depression and Anxiety: euthemic mood: Takes buproprion and sertraline; continue Hypothyroidism: On Synthroid; continue Disposition: PCP: Dr. Hilliard Code Status: Full code VTE Prophylaxis: Teds and SCDs for now Admission and Anticipated Discharge Date Admission Date: July 04, 2022 Subjective Pt seen in follow up of fall, hx of humeral fx, now w/ L hip fx Pt is laying in bed in NAD Reports L hip pain - seen by ortho and MRI obtained - showing fracture and therefore plan for OR surg. repair No chest pain, shortness of breath, palpitations. No abd.pain, n/v Review of Systems Review of Systems: All systems reviewed & are unremarkable except as noted in Subjective Physical Exam Physical Exam: General: elderly F, WD/WN, in NAD Lungs: CTA, no wheezing or crackles Cardiac: normal S1/S2, no murmur Abd: ND, NT, soft MSK: L arm in a sling, good program review director strength of the L hand, No deformities or hematoma of the L hip but TTP of the Lateral hip area, R toe wound is healing well. Neuro/Psych: AAOx3, normal affect, answering appropriately, speech fluent Skin: warm, dry Results & Data Results & Data ([facility]) Vital Signs (Past 12 Hours) Vital Signs Temp Pulse Pulse Resp BP Pulse Ox O2 Del Method 07/05/22 07:30 85 07/05/22 07:00 36.8 C 84 16 123/67 93 Room Air 07/05/22 03:26 36.5 C 77 16 137/36 L 94 Room Air 07/04/22 23:14 37.8 C H 74 18 115/63 96 CPAP 07/04/22 22:18 94 H Laboratory Results 07/05/22 07/05/22 07/05/22 Range/Units 07:46 07:07 07:07 WBC (4.8-10.8) K/ul RBC (3.93-5.22) M/uL Hgb (12.0-16.0) g/dl Hct (34.1-44.9) % MCV (80.0-100.0) fL MCH (25.0-34.0) pg MCHC (32.0-36.0) g/dL RDW Std Deviation (36.4-46.3) fL RDW Coeff of Dia (11.5-14.5) % Plt Count (130-400) K/uL MPV (9.4-12.3) fL Sodium 138 (136-145) mmol/L Potassium 3.9 (3.5-5.1) mmol/L Chloride 107 (98-107) mmol/L Carbon Dioxide 27 (21-32) mmol/L Anion Gap 4 (3-11) BUN 19 (6-23) mg/dl Creatinine 0.89 (0.6-1.2) mg/dl Est Cr Clr Drug Dosing Not Reportable Est GFR ( Amer) 78.3 ml/min Est GFR (Non-Af Amer) 67.5 ml/min BUN/Creatinine Ratio 21.3 H (10-20) Glucose 122 H (70-99(Fasting)) mg/dl POC Glucose 145 H (70-99) mg/dl Estimat Average Glucose 154 mg/dl Hemoglobin A1c 7.0 H (4.5-5.6) % Lactate (0.4-2.0) mmol/L Calcium 8.7 (8.5-10.1) mg/dl Magnesium 1.9 (1.7-2.4) mg/dl Triglycerides (0-150) mg/dl Cholesterol (0-200) mg/dl LDL Cholesterol, Calc mg/dl VLDL Cholesterol, Calc (0-30) mg/dl HDL Cholesterol mg/dl Cholesterol/HDL Ratio (0-5) Lipase (11-82) U/L Urine Color Urine Appearance (Clear) Urine pH (4.5-7.5) Ur Specific [place] (1.000-1.030) Urine Protein (Negative) Urine Glucose (UA) (Negative) Urine Ketones (Negative) Urine Blood (Negative) Urine Nitrite (Negative) Urine Bilirubin (Negative) Urine Urobilinogen (Negative) Ur Leukocyte Esterase (Negative) Urine WBC (Auto) (0-5) /hpf Urine RBC (Auto) (0-4) /hpf U Hyaline Cast (Auto) (0-5) /lpf U Epithel Cells (Auto) (0-5) /lpf Urine Bacteria (Auto) (Negative) Urine Opiates Screen (Neg) Ur Methadone, Qual (Neg) Urine Barbiturates (Neg) Ur Phencyclidine (PCP) (Neg) U Amphetamin/Meth Scrn (Neg) Urine MDEA MDMA (Ecstasy) Screen (Neg) MDMA Urine MDMA U Benzodiazepines Scrn (Neg) Ur Cocaine Metabolite (Neg) U Marijuana (THC) Screen (Neg) SARS-CoV-2, RNA, NAAT (NEGATIVE) 07/05/22 07/04/22 07/04/22 Range/Units 07:07 20:27 16:49 WBC 7.18 (4.8-10.8) K/ul RBC 3.33 L (3.93-5.22) M/uL Hgb 10.3 L (12.0-16.0) g/dl Hct 30.5 L (34.1-44.9) % MCV 91.6 (80.0-100.0) fL MCH 30.9 (25.0-34.0) pg MCHC 33.8 (32.0-36.0) g/dL RDW Std Deviation 42.1 (36.4-46.3) fL RDW Coeff of Dia 12.6 (11.5-14.5) % Plt Count 91 L (130-400) K/uL MPV 9.7 (9.4-12.3) fL Sodium (136-145) mmol/L Potassium (3.5-5.1) mmol/L Chloride (98-107) mmol/L Carbon Dioxide (21-32) mmol/L Anion Gap (3-11) BUN (6-23) mg/dl Creatinine (0.6-1.2) mg/dl Est Cr Clr Drug Dosing Est GFR ( Amer) ml/min Est GFR (Non-Af Amer) ml/min BUN/Creatinine Ratio (10-20) Glucose (70-99(Fasting)) mg/dl POC Glucose 155 H 224 H (70-99) mg/dl Estimat Average Glucose mg/dl Hemoglobin A1c (4.5-5.6) % Lactate (0.4-2.0) mmol/L Calcium (8.5-10.1) mg/dl Magnesium (1.7-2.4) mg/dl Triglycerides (0-150) mg/dl Cholesterol (0-200) mg/dl LDL Cholesterol, Calc mg/dl VLDL Cholesterol, Calc (0-30) mg/dl HDL Cholesterol mg/dl Cholesterol/HDL Ratio (0-5) Lipase (11-82) U/L Urine Color Urine Appearance (Clear) Urine pH (4.5-7.5) Ur Specific [place] (1.000-1.030) Urine Protein (Negative) Urine Glucose (UA) (Negative) Urine Ketones (Negative) Urine Blood (Negative) Urine Nitrite (Negative) Urine Bilirubin (Negative) Urine Urobilinogen (Negative) Ur Leukocyte Esterase (Negative) Urine WBC (Auto) (0-5) /hpf Urine RBC (Auto) (0-4) /hpf U Hyaline Cast (Auto) (0-5) /lpf U Epithel Cells (Auto) (0-5) /lpf Urine Bacteria (Auto) (Negative) Urine Opiates Screen (Neg) Ur Methadone, Qual (Neg) Urine Barbiturates (Neg) Ur Phencyclidine (PCP) (Neg) U Amphetamin/Meth Scrn (Neg) Urine MDEA MDMA (Ecstasy) Screen (Neg) MDMA Urine MDMA U Benzodiazepines Scrn (Neg) Ur Cocaine Metabolite (Neg) U Marijuana (THC) Screen (Neg) SARS-CoV-2, RNA, NAAT (NEGATIVE) 07/04/22 07/04/22 07/04/22 Range/Units 15:15 11:50 09:55 WBC (4.8-10.8) K/ul RBC (3.93-5.22) M/uL Hgb (12.0-16.0) g/dl Hct (34.1-44.9) % MCV (80.0-100.0) fL MCH (25.0-34.0) pg MCHC (32.0-36.0) g/dL RDW Std Deviation (36.4-46.3) fL RDW Coeff of Dia (11.5-14.5) % Plt Count (130-400) K/uL MPV (9.4-12.3) fL Sodium (136-145) mmol/L Potassium (3.5-5.1) mmol/L Chloride (98-107) mmol/L Carbon Dioxide (21-32) mmol/L Anion Gap (3-11) BUN (6-23) mg/dl Creatinine (0.6-1.2) mg/dl Est Cr Clr Drug Dosing Est GFR ( Amer) ml/min Est GFR (Non-Af Amer) ml/min BUN/Creatinine Ratio (10-20) Glucose (70-99(Fasting)) mg/dl POC Glucose (70-99) mg/dl Estimat Average Glucose mg/dl Hemoglobin A1c (4.5-5.6) % Lactate 1.0 (0.4-2.0) mmol/L Calcium (8.5-10.1) mg/dl Magnesium (1.7-2.4) mg/dl Triglycerides (0-150) mg/dl Cholesterol (0-200) mg/dl LDL Cholesterol, Calc mg/dl VLDL Cholesterol, Calc (0-30) mg/dl HDL Cholesterol mg/dl Cholesterol/HDL Ratio (0-5) Lipase (11-82) U/L Urine Color Urine Appearance (Clear) Urine pH (4.5-7.5) Ur Specific [place] (1.000-1.030) Urine Protein (Negative) Urine Glucose (UA) (Negative) Urine Ketones (Negative) Urine Blood (Negative) Urine Nitrite (Negative) Urine Bilirubin (Negative) Urine Urobilinogen (Negative) Ur Leukocyte Esterase (Negative) Urine WBC (Auto) (0-5) /hpf Urine RBC (Auto) (0-4) /hpf U Hyaline Cast (Auto) (0-5) /lpf U Epithel Cells (Auto) (0-5) /lpf Urine Bacteria (Auto) (Negative) Urine Opiates Screen (Neg) Ur Methadone, Qual (Neg) Urine Barbiturates (Neg) Ur Phencyclidine (PCP) (Neg) U Amphetamin/Meth Scrn (Neg) Urine MDEA Pending MDMA (Ecstasy) Screen (Neg) MDMA Pending Urine MDMA Pending U Benzodiazepines Scrn (Neg) Ur Cocaine Metabolite (Neg) U Marijuana (THC) Screen (Neg) SARS-CoV-2, RNA, NAAT NEGATIVE (NEGATIVE) 07/04/22 07/04/22 07/04/22 Range/Units 09:55 09:55 08:11 WBC (4.8-10.8) K/ul RBC (3.93-5.22) M/uL Hgb (12.0-16.0) g/dl Hct (34.1-44.9) % MCV (80.0-100.0) fL MCH (25.0-34.0) pg MCHC (32.0-36.0) g/dL RDW Std Deviation (36.4-46.3) fL RDW Coeff of Dia (11.5-14.5) % Plt Count (130-400) K/uL MPV (9.4-12.3) fL Sodium (136-145) mmol/L Potassium (3.5-5.1) mmol/L Chloride (98-107) mmol/L Carbon Dioxide (21-32) mmol/L Anion Gap (3-11) BUN (6-23) mg/dl Creatinine (0.6-1.2) mg/dl Est Cr Clr Drug Dosing Est GFR ( Amer) ml/min Est GFR (Non-Af Amer) ml/min BUN/Creatinine Ratio (10-20) Glucose (70-99(Fasting)) mg/dl POC Glucose (70-99) mg/dl Estimat Average Glucose mg/dl Hemoglobin A1c (4.5-5.6) % Lactate 3.0 H* (0.4-2.0) mmol/L Calcium (8.5-10.1) mg/dl Magnesium (1.7-2.4) mg/dl Triglycerides (0-150) mg/dl Cholesterol (0-200) mg/dl LDL Cholesterol, Calc mg/dl VLDL Cholesterol, Calc (0-30) mg/dl HDL Cholesterol mg/dl Cholesterol/HDL Ratio (0-5) Lipase (11-82) U/L Urine Color Yellow Urine Appearance Clear (Clear) Urine pH 6.5 (4.5-7.5) Ur Specific [place] 1.026 (1.000-1.030) Urine Protein Negative (Negative) Urine Glucose (UA) Negative (Negative) Urine Ketones Negative (Negative) Urine Blood Negative (Negative) Urine Nitrite Negative (Negative) Urine Bilirubin Negative (Negative) Urine Urobilinogen Negative (Negative) Ur Leukocyte Esterase 1+ H (Negative) Urine WBC (Auto) 1-5 (0-5) /hpf Urine RBC (Auto) 0-4 (0-4) /hpf U Hyaline Cast (Auto) 0 (0-5) /lpf U Epithel Cells (Auto) 10-20 H (0-5) /lpf Urine Bacteria (Auto) Negative (Negative) Urine Opiates Screen Neg (Neg) Ur Methadone, Qual Neg (Neg) Urine Barbiturates Neg (Neg) Ur Phencyclidine (PCP) Neg (Neg) U Amphetamin/Meth Scrn Neg (Neg) Urine MDEA MDMA (Ecstasy) Screen Pos H (Neg) MDMA Urine MDMA U Benzodiazepines Scrn Neg (Neg) Ur Cocaine Metabolite Neg (Neg) U Marijuana (THC) Screen Neg (Neg) SARS-CoV-2, RNA, NAAT (NEGATIVE) 07/04/22 07/04/22 Range/Units 07:35 07:35 WBC (4.8-10.8) K/ul RBC (3.93-5.22) M/uL Hgb (12.0-16.0) g/dl Hct (34.1-44.9) % MCV (80.0-100.0) fL MCH (25.0-34.0) pg MCHC (32.0-36.0) g/dL RDW Std Deviation (36.4-46.3) fL RDW Coeff of Dia (11.5-14.5) % Plt Count (130-400) K/uL MPV (9.4-12.3) fL Sodium (136-145) mmol/L Potassium (3.5-5.1) mmol/L Chloride (98-107) mmol/L Carbon Dioxide (21-32) mmol/L Anion Gap (3-11) BUN (6-23) mg/dl Creatinine (0.6-1.2) mg/dl Est Cr Clr Drug Dosing Est GFR ( Amer) ml/min Est GFR (Non-Af Amer) ml/min BUN/Creatinine Ratio (10-20) Glucose (70-99(Fasting)) mg/dl POC Glucose (70-99) mg/dl Estimat Average Glucose mg/dl Hemoglobin A1c (4.5-5.6) % Lactate (0.4-2.0) mmol/L Calcium (8.5-10.1) mg/dl Magnesium (1.7-2.4) mg/dl Triglycerides 228 H (0-150) mg/dl Cholesterol 254 H (0-200) mg/dl LDL Cholesterol, Calc 172 mg/dl VLDL Cholesterol, Calc 46 H (0-30) mg/dl HDL Cholesterol 36 mg/dl Cholesterol/HDL Ratio 7.1 H (0-5) Lipase 57 (11-82) U/L Urine Color Urine Appearance (Clear) Urine pH (4.5-7.5) Ur Specific [place] (1.000-1.030) Urine Protein (Negative) Urine Glucose (UA) (Negative) Urine Ketones (Negative) Urine Blood (Negative) Urine Nitrite (Negative) Urine Bilirubin (Negative) Urine Urobilinogen (Negative) Ur Leukocyte Esterase (Negative) Urine WBC (Auto) (0-5) /hpf Urine RBC (Auto) (0-4) /hpf U Hyaline Cast (Auto) (0-5) /lpf U Epithel Cells (Auto) (0-5) /lpf Urine Bacteria (Auto) (Negative) Urine Opiates Screen (Neg) Ur Methadone, Qual (Neg) Urine Barbiturates (Neg) Ur Phencyclidine (PCP) (Neg) U Amphetamin/Meth Scrn (Neg) Urine MDEA MDMA (Ecstasy) Screen (Neg) MDMA Urine MDMA U Benzodiazepines Scrn (Neg) Ur Cocaine Metabolite (Neg) U Marijuana (THC) Screen (Neg) SARS-CoV-2, RNA, NAAT (NEGATIVE) Medications Administered Current Inpatient Medications Acetaminophen (Acetaminophen 325 Mg Tab) 650 mg PO Q4H PRN PRN Reason: Pain or Fever Stop: 08/03/22 15:50 Al Hydrox/Mg Hydrox/Simethicone (Aluminum/Magnesium Susp 30 Ml Udc) 15 ml PO Q4H PRN PRN Reason: Dyspepsia Stop: 08/03/22 15:50 Bupropion HCl (Bupropion Hcl 100 Mg Tablet) 100 mg PO DAILY@1200 [facility] Stop: 08/03/22 11:59 Last Admin: 07/04/22 16:45 Dose: 100 mg Bupropion HCl (Bupropion Hcl 100 Mg Tablet) 150 mg PO QAM [facility] Stop: 08/04/22 08:59 Clopidogrel Bisulfate (Clopidogrel Bisulfate 75 Mg Tab) 75 mg PO DAILY [facility] Stop: 08/04/22 08:59 Dextrose (Dextrose 50% 50 Ml Syringe) 25 - 50 ml IV UD PRN; Protocol PRN Reason: Hypoglycemia Protocol Stop: 08/03/22 12:31 Docusate Sodium (Docusate Sodium 100 Mg Cap) 100 mg PO BID PRN PRN Reason: Constipation Stop: 08/03/22 14:05 Gabapentin (Gabapentin 800 Mg Tab) 800 mg PO TID [facility] Stop: 08/03/22 15:50 Last Admin: 07/04/22 20:19 Dose: 800 mg Glucagon (Glucagon For Inj 1 Mg Vial) 1 mg SQ UD PRN; Protocol PRN Reason: Hypoglycemia Protocol Stop: 08/03/22 12:31 Glucose (Glucose 40% Gel 15 Gm Tube) 15 - 30 gm PO UD PRN; Protocol PRN Reason: Hypoglycemia Protocol Stop: 08/03/22 12:31 Glucose (Glucose 10 Tab/Tube) 4 - 8 tab PO UD PRN; Protocol PRN Reason: Hypoglycemia Treatment Stop: 08/03/22 12:31 Insulin Aspart (Insulin Aspart Per Unit) 0 units SC ACHS [facility] Stop: 08/03/22 14:29 Last Admin: 07/04/22 20:44 Dose: Not Given Insulin Glargine (Lantus Per Unit Charge) 0 units SQ BID [facility]; Protocol Stop: 08/03/22 20:59 Last Admin: 07/04/22 20:43 Dose: 13 units Levothyroxine Sodium (Levothyroxine Sodium 125 Mcg Tablet) 125 mcg PO DAILYBB [facility] Stop: 08/04/22 06:29 Last Admin: 07/05/22 06:39 Dose: 125 mcg Lidocaine (Lidocaine 5% 1 Patch) 1 patch TD QAM [facility] Stop: 08/03/22 15:50 Last Admin: 07/04/22 16:43 Dose: 1 patch Lisinopril (Lisinopril 20 Mg Tab) 20 mg PO QAM [facility] Stop: 08/04/22 08:59 Lorazepam (Lorazepam 0.5 Mg Tab) 0.5 mg PO TID PRN PRN Reason: Anxiety Stop: 08/04/22 00:03 Magnesium Hydroxide (Magnesium Hydroxide Susp 30 Ml Udc) 30 ml PO Q12H PRN PRN Reason: Constipation Stop: 08/03/22 15:50 Metoprolol Succinate (Metoprolol Succ 25mg Ext Rel Tab) 25 mg PO DAILY [facility] Stop: 08/04/22 08:59 Miscellaneous (Carbohydrates For Hypoglycemia ) 15 - 30 gm PO UD PRN PRN Reason: Hypoglycemia Protocol Stop: 08/03/22 12:31 Miscellaneous (Remove Lidoderm Patch) 1 each N/A DAILY@2100 [facility] Stop: 08/03/22 22:59 Last Admin: 07/04/22 23:20 Dose: 1 each Miscellaneous Information (Pharmacy Glycemic Mgmt Consult) 1 each N/A UD PRN PRN Reason: Consult Stop: 08/03/22 12:31 Ondansetron HCl (Ondansetron 4 Mg Od Tab) 4 mg PO Q6H PRN PRN Reason: Nausea And Vomiting Stop: 08/03/22 14:04 Ondansetron HCl (Ondansetron Inj 2 Mg/Ml 2 Ml Vial) 4 mg IV Q6H PRN PRN Reason: Nausea Stop: 08/03/22 15:50 Oxycodone HCl (Oxycodone Hcl Ir 5 Mg Tab (Immediate Release)) 5 mg PO Q6H PRN PRN Reason: Pain Stop: 07/18/22 12:29 Last Admin: 07/04/22 16:20 Dose: 5 mg Polyethylene Glycol (Polyethylene (Miralax) 17 Gm Pack) 17 gm PO DAILY PRN PRN Reason: Constipation Stop: 08/03/22 15:50 Rosuvastatin Calcium (Rosuvastatin Calcium 20 Mg Tab) 20 mg PO DAILY [facility] Stop: 08/04/22 08:59 Sertraline HCl (Sertraline Hcl 100 Mg Tablet) 200 mg PO DAILY [facility] Stop: 08/04/22 08:59 Vitamin D (Cholecalciferol 1,000 Units 25 Mcg Tab) 1,000 units PO QAM [facility] Stop: 08/04/22 08:59 (1) DM type 2 (diabetes mellitus, type 2) Diabetes mellitus complication status: without complication Diabetes mellitus meterman insulin use: with meterman use Qualified Code(s): E11.9 - Type 2 diabetes mellitus without complications; Z79.4 - buttermaker (current) use of insulin
[2022-07-05] MEDS: INSULIN ASPART PER UNIT SC SCH ×4 (09:06→20:51)
[2022-07-05] MEDS: GABAPENTIN 800 MG TAB PO SCH ×3 (09:10→20:43)
[2022-07-05] MEDS: buPROPion HCl 100 MG TABLET PO SCH ×2 (09:10→13:54)
[2022-07-05] MEDS: ROSUVASTATIN CALCIUM 20 MG TAB PO SCH (09:12)
[2022-07-05] MEDS: lisinopril 20 MG TAB PO SCH (09:12)
[2022-07-05] MEDS: CHOLECALCIFEROL 1,000 UNITS 25 MCG TAB PO SCH (09:12)
[2022-07-05] MEDS: METOPROLOL SUCC 25MG EXT REL TAB PO SCH (09:12)
[2022-07-05] MEDS: SERTRALINE HCL 100 MG TABLET PO SCH (09:12)
[2022-07-05] MEDS: LIDOCAINE 5% 1 PATCH TD SCH (09:13)
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
[2022-07-05] MEDS: LANTUS PER UNIT CHARGE SQ SCH (09:17)
[2022-07-05] MEDS: oxyCODONE HCL IR 5 MG TAB (IMMEDIATE RELEASE) PO PRN ×2 (10:30→20:51)
--- NOTE | 2022-07-05 13:24 | Magnetic Resonance Report ---
MR hip LT wo con HISTORY: left hip pain, possible fracture TECHNIQUE: Multiplanar multisequence MRI of the pelvis and left hip were performed without contrast a ccording to standard departmental protocol. COMPARISON STUDY: Abdomen and pelvis CT 07/04/2022. FINDINGS: Suboptimal evaluation due to the motion artifact. There is nondisplaced intertrochanteric f racture within the proximal left femur. The visualized pelvic bones and right hip are intact. No disl ocation. There is soft tissue edema surrounding the left hip. IMPRESSION: Nondisplaced intertrochanteric fracture within the proximal left femur. ACT 112: Negative or not required by law. Electronically signed by: Moses Pineda M.D. 07/05/2022 1:23 PM
[2022-07-05] MEDS ORDERED: SODIUM CHLORIDE 0.9% 250 ML IV PRN (13:51)
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
--- NOTE | 2022-07-05 13:51 | Pharmacy Report ---
Pharmacy Glycemic Short Note 2 - Date of Service July 05, 2022 - Glycemic Short BSG Results (Last 24 hours): 07/04/22 07/04/22 07/05/22 16:49 20:27 07:07 Glucose 122 H POC Glucose 224 H 155 H 07/05/22 07/05/22 07:46 11:29 Glucose POC Glucose 145 H 130 H OUTPATIENT ANTIDIABETIC REGIMEN: * Lantus 20 units BID, Novolog 8 units with dinner, Trulicity weekly A1c 6.3% 05/26/22 ASSESSMENT: 07/05/22: * Patient NPO today while waiting on MRI results - subsequently revealed nondisplaced intertrochanteric fracture of left femur * Plan is for OR today * BSGs reasonably controlled since time of admission with basal insulin only * Patient has well-controlled T2DM based on A1c so home regimen is likely too aggressive while inpatient given differences in diet * Will utilize scaled Lantus today to allow for increased/decreased dose based on BSG 07/04/22: * Patient admitted with fall, hip pain. Currently ordered a diet. Ortho consulted * BSG on labs this morning 219 mg/dL. * Home regimen more Basal heavy, will aim for more 50:50 split while inpatient * Start with weight based stress of 2 novolog dosing, and scale for lantus PLAN FOR INPATIENT GLYCEMIC CONTROL: * Hold outpatient oral diabetes medications * Basal insulin * Lantus 13 units SC this morning * lantus 0-15 units SC HS * Reassess in AM * Bolus insulin * NovoLog per scale ACHS or Q6hrs while NPO * Goal Range: Low 110 mg/dL - High 140 mg/dL * Correction Factor: 30 mg/dL/unit * Nutritional / Prandial insulin per carb ratio of 1 unit per 10 grams CHO consumed
[2022-07-05] MEDS ORDERED: fentaNYL citrate 100 MCG/2 ML VIAL IV PRN (13:52)
[2022-07-05] MEDS ORDERED: ALBUT/IPRATROP 3MG/0.5MG NEB 3 ML VIAL INH PRN (13:52)
[2022-07-05] MEDS ORDERED: ePHEDrine sulfate 50 MG/ML AMP IV PRN (13:52)
[2022-07-05] MEDS ORDERED: MoRPHine SULFATE 10 MG/ML CARP/VIAL IV PRN (13:52)
[2022-07-05] MEDS ORDERED: ONDANSETRON INJ 2 MG/ML 2 ML VIAL IV PRN (13:52)
[2022-07-05] MEDS ORDERED: MEPERIDINE HCL 25 MG/ML CARP/VIAL IV PRN (13:52)
[2022-07-05] MEDS ORDERED: ATROPINE SULFATE 0.1 MG/ML 10ML SYR IV PRN (13:52)
[2022-07-05] MEDS: CLOPIDOGREL BISULFATE 75 MG TAB PO SCH (13:54)
[2022-07-05] MEDS ORDERED: fentaNYL citrate 100 MCG/2 ML VIAL ONE (14:04)
[2022-07-05] MEDS ORDERED: MIDAZOLAM HCL 1 MG/ML 2ML VIAL ONE (14:04)
[2022-07-05] MEDS ORDERED: BUPIVACAINE/EPINEPHRINE 0.5% MPF 1:200,000 30 ML VIAL ONE (14:12)
[2022-07-05] MEDS ORDERED: ceFAZolin 2,000 MG/15 ML IV PUSH IV ONE (14:21)
[2022-07-05] MEDS ORDERED: diphenhydrAMINE 50 MG/ML VIAL ONE (14:42)
[2022-07-05] MEDS ORDERED: ROCURONIUM BROMIDE 10 MG/ML 5 ML VIAL IV ONE (14:54)
[2022-07-05] MEDS ORDERED: ONDANSETRON INJ 2 MG/ML 2 ML VIAL ONE (14:54)
[2022-07-05] MEDS ORDERED: GLYCOPYRROLATE 0.2 MG/ML VIAL ONE (14:54)
[2022-07-05] MEDS ORDERED: DEXAMETHASONE SOD INJ 4 MG/ML VIAL ONE (14:54)
[2022-07-05] MEDS ORDERED: LARYING-O-JET KIT (LTA) ONE (14:54)
[2022-07-05] MEDS ORDERED: NEOSTIGMINE METHYLSULFATE 1 MG/ML 10ML VIAL ONE (14:54)
[2022-07-05] MEDS ORDERED: PROPOFOL IV EMULSION 10 MG/ML 20 ML VIAL IV ONE (14:54)
[2022-07-05] MEDS ORDERED: ePHEDrine sulfate 50 MG/ML SYR ONE (14:54)
[2022-07-05] MEDS ORDERED: MICONAZOLE NITRATE POWDER 43 GM EXT PRN (15:40)
--- NOTE | 2022-07-05 15:42 | Operative Report ---
PG Post Operative Report Pre & Post Diagnosis Operation Date: 07/05/22 10:35 Pre-Op Diagnosis: Left intertrochanteric hip/femur Fracture Post-Op Diagnosis: Left intertrochanteric hip/femur Fracture I identified the patient and participated in the time-out.: Yes Procedure Operation Date: 07/05/22 10:35 Actual Procedures p Left Trochanteric Nailing(Left) - Shukri Gooden MD Surgeon Shukri Gooden MD Food Stylist eHri Hills PA-C Estimated Blood Loss 50 Findings Consistent with Post-Op Diagnosis Specimens None Anesthesia Type General Complications none Disposition Accompanied Patient To Recovery: No Indications Patient is a 67-year-old female with multiple medical comorbidities who sustained a fall yesterday. She lost her balance in her kitchen. She has a history of a multiple falls and is recovering from humerus fracture. She was unable to ambulate afterwards. CT scan was suggestive of a possible fracture. She had plain films which look normal. We did get an MRI which confirmed a nondisplaced intertrochanteric hip fracture. Patient was indicated for surgical treatment. Description of Procedure Operative implants consist of: The 1 Synthes left 360 mm x 11 mm long trochanteric nail. 2. 90 mm helical blade. 3. 50 mm distal interlocking screw. The patient was taken the operating, identified, placed on the operating table supine position protectors were properly padded. IV antibiotics tried by the anesthesia team. General anesthetic was implemented as the patient is on Plavix. The patient was then transferred to the fracture table. The left leg w as placed in a boot traction the right leg in a well leg adams. I applied some longitudinal traction to the femur and internally rotated the foot so the kneecap pointed to the ceiling. Some x-rays were obtained. The fracture was anatomically aligned. The right hip and leg was then scrubbed with Hibiclens, prepped with ChloraPrep and draped in usual sterile fashion. A curvilinear incision was made just proximal to the trochanter. Sharp dissection was carried through subcutaneous tissue down the gluteal fascia. Gluteal fascia was incised longitudinally in line with skin incision. A guid ewire was placed just lateral to the tip of the trochanter on AP and lateral films and in line with the IM canal. Was advanced down the IM canal under fluoroscopic guidance. The large 17 mm reamer was used to ream over the guidewire. This was exchanged for a ball-tipped guidewire. We measured for nail length and a 360 mm nail was selected. The guidewire was then overreamed with a 11 mm reamer, 12 mm reamer, 12 and half millimeter reamer. A left 11 mm x 360 mm long trochanteric nail was placed. Tapped in position. The lateral aiming arm was then at added. Stab incision was made and it was advanced to the lateral aspect of femur. Guidewire was placed in the central aspect of the femoral head and neck in the AP and lateral plane. This was measured and 90 mm helical blade was selected. The guidewire was overreamed with the cortical drill followed by the triple reamer. A 90 mm helical blade was placed. Was tapped in position. The proximal setscrew was tightened. Attention Jeffy toward distal interlocking. Using the perfect match-e-be-nash-she-wish band technique distal interlocking screw was placed in the dynamic hole. It was a 50 mm screw. Some final x-rays were obtained. Attention drawn toward closing. All wounds were irrigated scope soft normal saline. I did inject locally with 30 cc of absent Marcaine with epinephrine. The gluteal fascia was then closed with #1 Vicryl suture in running fashion. The subcutaneous tissues of the proximal wound were closed in 2 layers with a deep layer #1 Vicryl suture and subcutaneous tissues with 2-0 Dexon suture in a buried interrupted fashion. The remainder of the wounds were closed just using the subcuticular 2-0 Vicryl stitch. The skin was then closed with latoya. The leg was then cleaned and dried a sterile dressing was Xeroform, 4 x 4's, ABD pad, tape was applied. The patient was then taken off the fracture table. She was brought out of general anesthesia. We did check her left humerus fracture brace before waking her up. The patient was then brought Karsten incision transferred to the recovery room in stable condition. Patient tolerated the procedure well and there are no complications. Heri Hills, my physician welder assistant, was present for the entire procedure. His assistance was required for proper patient positioning, prepping and draping, surgical exposure, retraction, perform the technical details of the operation, placing the hardware, closure of the wound and placement of sterile bandage. I attest to the content of the Intraoperative Record and any orders documented therein. Any exceptions are noted below.
--- NOTE | 2022-07-05 15:55 | Fluoroscopy Report ---
FL hip LT 2-3V CLINICAL HISTORY: LEFT TROCH NAIL COMPARISON STUDY: Left hip 07/04/2022. FLUOROSCOPY TIME: 1 minute.. FINDINGS: 4 fluoroscopic spot images of the left hip demonstrate internal fixation of the intertrocha nteric fracture with an intramedullary femoral prince and interlocking femoral neck pin. The hardware ap pears intact. Alignment appears anatomic. IMPRESSION: Fluoroscopic assistance provided for internal fixation of the left intertrochanteric femo ral fracture. ACT 112: Negative or not required by law. Electronically signed by: Moses Pineda M.D. 07/05/2022 3:53 PM
--- NOTE | 2022-07-05 16:33 | Anesthesiology Progress Note ---
Date of Service July 05, 2022 Anesthesia Post Procedure Vital Signs Vital Signs: Temp Pulse Pulse Pulse Resp BP Pulse Ox 07/05/22 16:20 36.4 C L 80 17 135/94 94 07/05/22 16:10 78 16 157/77 H 95 07/05/22 16:00 76 14 146/77 H 96 07/05/22 15:51 36.2 C L 77 12 107/55 L 96 07/05/22 14:13 37.4 C 90 20 134/81 98 07/05/22 11:00 37.0 C 92 H 20 149/79 H 96 07/05/22 10:25 07/05/22 07:30 85 07/05/22 07:00 36.8 C 84 16 123/67 93 07/05/22 03:26 36.5 C 77 16 137/36 L 94 07/04/22 23:14 37.8 C H 74 18 115/63 96 07/04/22 22:18 94 H 07/04/22 19:54 37.1 C 93 H 17 107/57 L 96 07/04/22 18:26 93 H O2 Del Method O2 Flow Rate 07/05/22 16:20 Nasal Cannula 2 07/05/22 16:10 Oxymask 5 07/05/22 16:00 Oxymask 5 07/05/22 15:51 Oxymask 5 07/05/22 14:13 Room Air 07/05/22 11:00 Room Air 07/05/22 10:25 Room Air 07/05/22 07:30 07/05/22 07:00 Room Air 07/05/22 03:26 Room Air 07/04/22 23:14 CPAP 07/04/22 22:18 07/04/22 19:54 Room Air 07/04/22 18:26 Pain Intensity Left Hip: Pain Intensity: 3 Transfer of Care Handoff Completed per policy Notes Mental Status: alert / awake / arousable Patient Amnestic to Procedure: Yes Nausea / Vomiting: adequately controlled Pain: adequately controlled Airway Patency, RR, SpO2: stable & adequate BP & HR: stable & adequate Hydration State: stable & adequate Anesthetic Complications: no major complications apparent and Pt Satisfied with anesthetic care Notes: The patient is awake and comfortable. Her SpO2 occasionally drops to the low 90s on NC oxygen so she will have continuous pulse oximetry.
[2022-07-05] MEDS: SODIUM CHLORIDE 0.9% 1000ML 1,000 ML IV SCH (17:20)
[2022-07-05] MEDS ORDERED: LANTUS PER UNIT CHARGE SQ SCH (21:00)
[2022-07-05] MEDS: LORazepam 0.5 MG TAB PO PRN (22:18)
--- NOTE | 2022-07-05 23:43 | Electrocardiogram Report ---
Test Reason : Blood Pressure : / mmHG Vent. Rate : 091 BPM Atrial Rate : 091 BPM P-R Int : 160 ms QRS Dur : 128 ms QT Int : 382 ms P-R-T Axes : 068 044 050 degrees QTc Int : 469 ms Normal sinus rhythm Non-specific intra-ventricular conduction block Abnormal ECG When compared with ECG of 01-JUN-2022 14:54, QRS duration has increased Confirmed by Herrera Vasquez ([id number]) on 07/05/2022 11:43:17 PM Referred By: REFERRED SELF Confirmed By:Herrera Vasquez
[2022-07-06] MEDS: SODIUM CHLORIDE 0.9% 1000ML 1,000 ML IV SCH ×2 (05:45→18:14)
[2022-07-06] MEDS: LEVOTHYROXINE SODIUM 125 MCG TABLET PO SCH (05:45)
[2022-07-06] MEDS: oxyCODONE HCL IR 5 MG TAB (IMMEDIATE RELEASE) PO PRN ×3 (05:45→20:54)
[2022-07-06 05:47] LABS: Basophils # (auto) 0.02 K/uL (0-0.2); Basophils % (auto) 0.2 %; Eosinophils # (auto) 0.02 K/uL (0-0.50); Eosinophils % (auto) 0.2 %; Hematocrit (blood only) 28.8 % (34.1-44.9); Immature Granulocytes # (auto) 0.03 K/uL (0.00-0.02); Immature Granulocytes % (auto) 0.3 %; Lymphocytes # (auto) 1.26 K/uL (1.2-3.4); Lymphocytes % (auto) 13.5 %; Mean Corpuscular Hemoglobin 31.4 pg (25.0-34.0); Mean Corpuscular Hgb Conc 34.7 g/dL (32.0-36.0); Mean Corpuscular Volume 90.6 fL (80.0-100.0); Mean Platelet Volume 9.6 fL (9.4-12.3); Monocytes # (auto) 0.72 K/uL (0.24-0.82); Monocytes % (auto) 7.7 %; Neutrophils # (auto) 7.29 K/uL (1.4-6.5); Neutrophils % (auto) 78.1 %; Platelet Count 87 K/uL (130-400); RDW Coefficient of Variation 12.5 % (11.5-14.5); RDW Standard Deviation 41.1 fL (36.4-46.3); Red Blood Count 3.18 M/uL (3.93-5.22); White Blood Count 9.34 K/ul (4.8-10.8)
[2022-07-06 06:19] LABS: Anion Gap 7 (3-11); BUN Creatinine Ratio 27.6 (10-20); Blood Urea Nitrogen 21 mg/dl (6-23); Calcium 8.3 mg/dl (8.5-10.1); Carbon Dioxide 24 mmol/L (21-32); Chloride 107 mmol/L (98-107); Est GFR (African American) 94.7 ml/min; Est GFR (Non-African American) 81.7 ml/min; Glucose 121 mg/dl (70-99(Fasting)); Magnesium 1.8 mg/dl (1.7-2.4); Sodium 138 mmol/L (136-145)
[2022-07-06] MEDS ORDERED: PNEUMOCOCCAL POLYSACCHARIDES 25 MCG/0.5 ML VIAL/SYR IM ONE (07:46)
[2022-07-06] MEDS: buPROPion HCl 100 MG TABLET PO SCH (08:11)
[2022-07-06] MEDS: ROSUVASTATIN CALCIUM 20 MG TAB PO SCH (08:11)
[2022-07-06] MEDS: GABAPENTIN 800 MG TAB PO SCH ×2 (08:11→13:24)
[2022-07-06] MEDS: METOPROLOL SUCC 25MG EXT REL TAB PO SCH (08:12)
[2022-07-06] MEDS: CLOPIDOGREL BISULFATE 75 MG TAB PO SCH (08:12)
[2022-07-06] MEDS: CHOLECALCIFEROL 1,000 UNITS 25 MCG TAB PO SCH (08:12)
[2022-07-06] MEDS: SERTRALINE HCL 100 MG TABLET PO SCH (08:13)
[2022-07-06] MEDS: LIDOCAINE 5% 1 PATCH TD SCH (08:13)
[2022-07-06] MEDS: lisinopril 20 MG TAB PO SCH (08:13)
[2022-07-06] MEDS: INSULIN ASPART PER UNIT SC SCH ×4 (08:21→20:54)
[2022-07-06] MEDS: LANTUS PER UNIT CHARGE SQ SCH ×2 (08:22→20:53)
--- NOTE | 2022-07-06 08:37 | Hospitalist Progress Note ---
Date of Service July 06, 2022 Assessment & Plan (1) Fall: (2) Ambulatory dysfunction: (3) Hypertension: (4) DM type 2 (diabetes mellitus, type 2): (5) Dyslipidemia: (6) Depression: (7) Anxiety: (8) 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: (9) History of pulmonary embolism: (10) History of CVA (cerebrovascular accident): Plan 67-year-old female presented to the [facility] ED status post mechanical fall. Additional PMH H includes hypertension, hyperlipidemia, insulin-dependent diabetic, TONE, depression and anxiety. Patient being followed by Dr. Gooden for spiral humeral fracture current treatment is splint. Pain control. Patient on Plavix status post PE in 2012. Patient had 2 strokes in the . Fall: Ambulatory dysfunction: Baseline ambulates with a cane Multiple fractures in the past including spiral humerus fracture and rib fractures Head CT: Negative Cervical Spine CT: Negative for fracture; + osteopenia and spondylitic change Humeral x-ray: subacute displaced fracture, shifted Ortho Consult placed: ED physician spoke with Dr. Gooden Per orthopedics - Looks to be healing in the brace. There is some slight malalignment, which is certainly acceptable. It would be best for her to be head of the bed up as much as possible to help keep this aligned and help with pain. Pain control: Was on oral Dilaudid 2 to 4 mg p.o. every 6 as outpatient; received Dilaudid IV 0.5 mg x 3 while in ED; will transition to oral oxycodone Opioid use may be contributing factor to increased falls Lidocaine patch ordered ECHO ordered last ECHO 2016 EF 65-69% and mild grade I diastolic dysfx PT/OT when cleared by Ortho L hip pain, intertrochanteric fracture within the proximal left femur Pt seen by orthopedics and MRI of L hip obtained - showing Intertrochanteric fracture of the proximal left femur Now s/p surg. repair w/ Dr. Gooden (07/05) Follow up in 2-3 weeks out from surgery date. She is weightbearing as tolerated. Needs to go to a Briscoe brace at all times. Any orthopedic questions can be directed at [phone] - Dr. Gooden. Hypertension: Takes lisinopril, metoprolol; continue Creatinine: 0.78 Continue to monitor BP HLD: takes rosuvastatin; continue IDDM, type 2: Peripheral neuropathy: Takes Lantus 20 units SQ QAM/PM; continue Lantus with adjustments as outlined Takes Novolog 8units SQ before dinner Takes Trulicity weekly; hold while here: last dose: Takes Gabapentin 800 mg daily we will increase to 3 times daily for neuropathy; Last A1c 03/03: 6.8 Consult Glycemic Pharmacy History of PE: History of CVA: PE 2012, CVA x2 about 15 or 20 years ago Takes Plavix; hold for now until cleared by Ortho Patient was on Coumadin for PE transitioned to Plavix due to increased fall risk Takes Rosuvastatin; continue Plavix resumed Obstructive Sleep Apnea: Becomes hypoxic when sleeping Uses CPAP at home nightly; to bring in home CPAP Depression and Anxiety: euthemic mood: Takes buproprion and sertraline; continue Hypothyroidism: On Synthroid; continue Disposition: PCP: Dr. Hilliard Code Status: Full code VTE Prophylaxis: Teds and SCDs, plavix resumed Admission and Anticipated Discharge Date Admission Date: July 04, 2022 Subjective Pt seen in follow up of fall, hx of humeral fx, now w/ L hip fx Underwent surg. repair of L hip yesterday w/ Dr. Gooden Pt is laying in bed in NAD No chest pain, shortness of breath, palpitations. 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 dressings over L hip Neuro/Psych: AAOx3, normal affect but somewhat drowsy, answering appropriately, speech fluent, moving extremities Skin: warm, dry Results & Data Results & Data ([facility]) Vital Signs (Past 12 Hours) Vital Signs Temp Pulse Pulse Resp BP Pulse Ox O2 Del Method 07/06/22 08:24 Nasal Cannula 07/06/22 08:04 37.3 C 100 H 20 137/70 97 Nasal Cannula 07/06/22 07:30 97 H 07/06/22 03:09 37.4 C 100 H 18 137/72 95 Nasal Cannula 07/05/22 22:12 100 H 07/05/22 22:24 37.6 C H 99 H 20 157/89 H 95 Nasal Cannula 07/05/22 21:08 Nasal Cannula O2 Flow Rate 07/06/22 08:24 3 07/06/22 08:04 3 07/06/22 07:30 07/06/22 03:09 3 07/05/22 22:12 07/05/22 22:24 3 07/05/22 21:08 3 Laboratory Results 07/06/22 07/06/22 07/06/22 Range/Units 07:44 05:31 05:31 WBC (4.8-10.8) K/ul RBC (3.93-5.22) M/uL Hgb (12.0-16.0) g/dl Hct (34.1-44.9) % MCV (80.0-100.0) fL MCH (25.0-34.0) pg MCHC (32.0-36.0) g/dL RDW Std Deviation (36.4-46.3) fL RDW Coeff of Dia (11.5-14.5) % Plt Count (130-400) K/uL MPV (9.4-12.3) fL Immature Gran % (Auto) % Neut % (Auto) % Lymph % (Auto) % [place] % (Auto) % Eos % (Auto) % Baso % (Auto) % Neut # (Auto) (1.4-6.5) K/uL Lymph # (Auto) (1.2-3.4) K/uL [place] # (Auto) (0.24-0.82) K/uL Eos # (Auto) (0-0.50) K/uL Baso # (Auto) (0-0.2) K/uL Immature Gran # (Auto) (0.00-0.02) K/uL Sodium 138 (136-145) mmol/L Potassium 4.0 (3.5-5.1) mmol/L Chloride 107 (98-107) mmol/L Carbon Dioxide 24 (21-32) mmol/L Anion Gap 7 (3-11) BUN 21 (6-23) mg/dl Creatinine 0.76 (0.6-1.2) mg/dl Est Cr Clr Drug Dosing Not Reportable Est GFR ( Amer) 94.7 ml/min Est GFR (Non-Af Amer) 81.7 ml/min BUN/Creatinine Ratio 27.6 H (10-20) Glucose 121 H (70-99(Fasting)) mg/dl POC Glucose 205 H (70-99) mg/dl Calcium 8.3 L (8.5-10.1) mg/dl Phosphorus 4.0 (2.5-4.9) mg/dl Magnesium 1.8 (1.7-2.4) mg/dl 25-OH Vitamin D Total 30.2 (30-100) ng/ml Blood Type Antibody Screen Crossmatch 07/06/22 07/05/22 07/05/22 Range/Units 05:31 20:21 16:50 WBC 9.34 (4.8-10.8) K/ul RBC 3.18 L (3.93-5.22) M/uL Hgb 10.0 L (12.0-16.0) g/dl Hct 28.8 L (34.1-44.9) % MCV 90.6 (80.0-100.0) fL MCH 31.4 (25.0-34.0) pg MCHC 34.7 (32.0-36.0) g/dL RDW Std Deviation 41.1 (36.4-46.3) fL RDW Coeff of Dia 12.5 (11.5-14.5) % Plt Count 87 L (130-400) K/uL MPV 9.6 (9.4-12.3) fL Immature Gran % (Auto) 0.3 % Neut % (Auto) 78.1 % Lymph % (Auto) 13.5 % [place] % (Auto) 7.7 % Eos % (Auto) 0.2 % Baso % (Auto) 0.2 % Neut # (Auto) 7.29 H (1.4-6.5) K/uL Lymph # (Auto) 1.26 (1.2-3.4) K/uL [place] # (Auto) 0.72 (0.24-0.82) K/uL Eos # (Auto) 0.02 (0-0.50) K/uL Baso # (Auto) 0.02 (0-0.2) K/uL Immature Gran # (Auto) 0.03 H (0.00-0.02) K/uL Sodium (136-145) mmol/L Potassium (3.5-5.1) mmol/L Chloride (98-107) mmol/L Carbon Dioxide (21-32) mmol/L Anion Gap (3-11) BUN (6-23) mg/dl Creatinine (0.6-1.2) mg/dl Est Cr Clr Drug Dosing Est GFR ( Amer) ml/min Est GFR (Non-Af Amer) ml/min BUN/Creatinine Ratio (10-20) Glucose (70-99(Fasting)) mg/dl POC Glucose 150 H 125 H (70-99) mg/dl Calcium (8.5-10.1) mg/dl Phosphorus (2.5-4.9) mg/dl Magnesium (1.7-2.4) mg/dl 25-OH Vitamin D Total (30-100) ng/ml Blood Type Antibody Screen Crossmatch 07/05/22 07/05/22 07/05/22 Range/Units 15:52 14:18 13:58 WBC (4.8-10.8) K/ul RBC (3.93-5.22) M/uL Hgb (12.0-16.0) g/dl Hct (34.1-44.9) % MCV (80.0-100.0) fL MCH (25.0-34.0) pg MCHC (32.0-36.0) g/dL RDW Std Deviation (36.4-46.3) fL RDW Coeff of Dia (11.5-14.5) % Plt Count (130-400) K/uL MPV (9.4-12.3) fL Immature Gran % (Auto) % Neut % (Auto) % Lymph % (Auto) % [place] % (Auto) % Eos % (Auto) % Baso % (Auto) % Neut # (Auto) (1.4-6.5) K/uL Lymph # (Auto) (1.2-3.4) K/uL [place] # (Auto) (0.24-0.82) K/uL Eos # (Auto) (0-0.50) K/uL Baso # (Auto) (0-0.2) K/uL Immature Gran # (Auto) (0.00-0.02) K/uL Sodium (136-145) mmol/L Potassium (3.5-5.1) mmol/L Chloride (98-107) mmol/L Carbon Dioxide (21-32) mmol/L Anion Gap (3-11) BUN (6-23) mg/dl Creatinine (0.6-1.2) mg/dl Est Cr Clr Drug Dosing Est GFR ( Amer) ml/min Est GFR (Non-Af Amer) ml/min BUN/Creatinine Ratio (10-20) Glucose (70-99(Fasting)) mg/dl POC Glucose 127 H 110 H (70-99) mg/dl Calcium (8.5-10.1) mg/dl Phosphorus (2.5-4.9) mg/dl Magnesium (1.7-2.4) mg/dl 25-OH Vitamin D Total (30-100) ng/ml Blood Type A Positive Antibody Screen NEGATIVE Crossmatch See Detail 07/05/22 Range/Units 11:29 WBC (4.8-10.8) K/ul RBC (3.93-5.22) M/uL Hgb (12.0-16.0) g/dl Hct (34.1-44.9) % MCV (80.0-100.0) fL MCH (25.0-34.0) pg MCHC (32.0-36.0) g/dL RDW Std Deviation (36.4-46.3) fL RDW Coeff of Dia (11.5-14.5) % Plt Count (130-400) K/uL MPV (9.4-12.3) fL Immature Gran % (Auto) % Neut % (Auto) % Lymph % (Auto) % [place] % (Auto) % Eos % (Auto) % Baso % (Auto) % Neut # (Auto) (1.4-6.5) K/uL Lymph # (Auto) (1.2-3.4) K/uL [place] # (Auto) (0.24-0.82) K/uL Eos # (Auto) (0-0.50) K/uL Baso # (Auto) (0-0.2) K/uL Immature Gran # (Auto) (0.00-0.02) K/uL Sodium (136-145) mmol/L Potassium (3.5-5.1) mmol/L Chloride (98-107) mmol/L Carbon Dioxide (21-32) mmol/L Anion Gap (3-11) BUN (6-23) mg/dl Creatinine (0.6-1.2) mg/dl Est Cr Clr Drug Dosing Est GFR ( Amer) ml/min Est GFR (Non-Af Amer) ml/min BUN/Creatinine Ratio (10-20) Glucose (70-99(Fasting)) mg/dl POC Glucose 130 H (70-99) mg/dl Calcium (8.5-10.1) mg/dl Phosphorus (2.5-4.9) mg/dl Magnesium (1.7-2.4) mg/dl 25-OH Vitamin D Total (30-100) ng/ml Blood Type Antibody Screen Crossmatch Medications Administered Current Inpatient Medications Acetaminophen (Acetaminophen 325 Mg Tab) 650 mg PO Q4H PRN PRN Reason: Pain or Fever Stop: 08/03/22 15:50 Al Hydrox/Mg Hydrox/Simethicone (Aluminum/Magnesium Susp 30 Ml Udc) 15 ml PO Q4H PRN PRN Reason: Dyspepsia Stop: 08/03/22 15:50 Bupropion HCl (Bupropion Hcl 100 Mg Tablet) 150 mg PO QAM BRENDA Stop: 08/04/22 08:59 Last Admin: 07/06/22 08:11 Dose: 150 mg Clopidogrel Bisulfate (Clopidogrel Bisulfate 75 Mg Tab) 75 mg PO DAILY BRENDA Stop: 08/04/22 08:59 Last Admin: 07/06/22 08:12 Dose: 75 mg Dextrose (Dextrose 50% 50 Ml Syringe) 25 - 50 ml IV UD PRN; Protocol PRN Reason: Hypoglycemia Protocol Stop: 08/03/22 12:31 Docusate Sodium (Docusate Sodium 100 Mg Cap) 100 mg PO BID PRN PRN Reason: Constipation Stop: 08/03/22 14:05 Gabapentin (Gabapentin 800 Mg Tab) 800 mg PO TID [facility] Stop: 08/03/22 15:50 Last Admin: 07/06/22 08:11 Dose: 800 mg Glucagon (Glucagon For Inj 1 Mg Vial) 1 mg SQ UD PRN; Protocol PRN Reason: Hypoglycemia Protocol Stop: 08/03/22 12:31 Glucose (Glucose 40% Gel 15 Gm Tube) 15 - 30 gm PO UD PRN; Protocol PRN Reason: Hypoglycemia Protocol Stop: 08/03/22 12:31 Glucose (Glucose 10 Tab/Tube) 4 - 8 tab PO UD PRN; Protocol PRN Reason: Hypoglycemia Treatment Stop: 08/03/22 12:31 Sodium Chloride (Nss 1000ml) 1,000 mls @ 80 mls/hr IV .[id number] [facility] Stop: 07/06/22 17:58 Last Admin: 07/06/22 05:45 Dose: 80 mls/hr Insulin Aspart (Insulin Aspart Per Unit) 0 units SC ACHS [facility] Stop: 08/03/22 14:29 Last Admin: 07/06/22 08:21 Dose: 7 units Insulin Glargine (Lantus Per Unit Charge) 10 units SQ BID [facility]; Protocol Stop: 08/05/22 08:59 Last Admin: 07/06/22 08:22 Dose: 10 units Levothyroxine Sodium (Levothyroxine Sodium 125 Mcg Tablet) 125 mcg PO DAILYBB [facility] Stop: 08/04/22 06:29 Last Admin: 07/06/22 05:45 Dose: 125 mcg Lidocaine (Lidocaine 5% 1 Patch) 1 patch TD QAM [facility] Stop: 08/03/22 15:50 Last Admin: 07/06/22 08:13 Dose: 1 patch Lisinopril (Lisinopril 20 Mg Tab) 20 mg PO QAM [facility] Stop: 08/04/22 08:59 Last Admin: 07/06/22 08:13 Dose: 20 mg Lorazepam (Lorazepam 0.5 Mg Tab) 0.5 mg PO TID PRN PRN Reason: Anxiety Stop: 08/04/22 00:03 Last Admin: 07/05/22 22:18 Dose: 0.5 mg Magnesium Hydroxide (Magnesium Hydroxide Susp 30 Ml Udc) 30 ml PO Q12H PRN PRN Reason: Constipation Stop: 08/03/22 15:50 Magnesium Oxide (Magnesium Oxide 400 Mg Tab) 400 mg PO QAM [facility] Stop: 08/05/22 08:59 Metoprolol Succinate (Metoprolol Succ 25mg Ext Rel Tab) 25 mg PO DAILY [facility] Stop: 08/04/22 08:59 Last Admin: 07/06/22 08:12 Dose: 25 mg Miconazole Nitrate (Miconazole Nitrate Powder 43 Gm) 1 appln EXT PRN PRN PRN Reason: Affected Skin Folds Stop: 08/04/22 15:39 Miscellaneous (Carbohydrates For Hypoglycemia ) 15 - 30 gm PO UD PRN PRN Reason: Hypoglycemia Protocol Stop: 08/03/22 12:31 Miscellaneous (Remove Lidoderm Patch) 1 each N/A DAILY@2100 [facility] Stop: 08/03/22 22:59 Last Admin: 07/05/22 20:45 Dose: 1 each Miscellaneous Information (Pharmacy Glycemic Mgmt Consult) 1 each N/A UD PRN PRN Reason: Consult Stop: 08/03/22 12:31 Ondansetron HCl (Ondansetron 4 Mg Od Tab) 4 mg PO Q6H PRN PRN Reason: Nausea And Vomiting Stop: 08/03/22 14:04 Ondansetron HCl (Ondansetron Inj 2 Mg/Ml 2 Ml Vial) 4 mg IV Q6H PRN PRN Reason: Nausea Stop: 08/03/22 15:50 Oxycodone HCl (Oxycodone Hcl Ir 5 Mg Tab (Immediate Release)) 5 mg PO Q6H PRN PRN Reason: Pain Stop: 07/18/22 12:29 Last Admin: 07/06/22 05:45 Dose: 5 mg Polyethylene Glycol (Polyethylene (Miralax) 17 Gm Pack) 17 gm PO DAILY PRN PRN Reason: Constipation Stop: 08/03/22 15:50 Polyethylene Glycol (Polyethylene (Miralax) 17 Gm Pack) 17 gm PO Q6 BRENDA Stop: 08/06/22 17:59 Rosuvastatin Calcium (Rosuvastatin Calcium 20 Mg Tab) 20 mg PO DAILY BRENDA Stop: 08/04/22 08:59 Last Admin: 07/06/22 08:11 Dose: 20 mg Sertraline HCl (Sertraline Hcl 100 Mg Tablet) 200 mg PO DAILY [facility] Stop: 08/04/22 08:59 Last Admin: 07/06/22 08:13 Dose: 200 mg Vitamin D (Cholecalciferol 1,000 Units 25 Mcg Tab) 2,000 units PO QAM [facility] Stop: 08/05/22 08:59 (1) DM type 2 (diabetes mellitus, type 2) Diabetes mellitus complication status: without complication Diabetes mellitus shelter insulin use: with shelter use Qualified Code(s): E11.9 - Type 2 diabetes mellitus without complications; Z79.4 - assisted (current) use of insulin
[2022-07-06] MEDS: LORazepam 0.5 MG TAB PO PRN ×2 (08:58→19:26)
[2022-07-06] MEDS ORDERED: CHOLECALCIFEROL 1,000 UNITS 25 MCG TAB PO ONE (09:00)
--- NOTE | 2022-07-06 10:07 | Progress Notes ---
SUBJECTIVE: A 67-year-old female with multiple medical comorbidities, now postoperative day 1 from IM nailing of a left nondisplaced intertrochanteric hip fracture. She is also about a month out from a humeral diaphyseal fracture . She is doing okay this morning. Complaining mostly of le ft leg pain. She is eating breakfast. Her left arm seems to be doing well. The fracture brace in p lace. PHYSICAL EXAMINATION: GENERAL: Shows a pleasant elderly female. She is sitting up in her bed, eating breakfast. She is u sing both arms. EXTREMITIES: Examination of the left arm reveals a Briscoe brace to be in place. No real swelling . Alignment looks acceptable. She can flex and extend her fingers appropriately. Examination of th e left hip reveals the dressing to be clean, dry, and intact. Leg lengths were equal. She can dorsi flex and plantarflex her foot appropriately. She is neurologically intact. LABORATORY DATA: Hemoglobin 10.0. Hematocrit 28.8. Electrolytes are stable. ASSESSMENT: A 67-year-old female with multiple medical comorbidities postoperatively, 1. Postoperative day 1 from intramedullary nailing of left nondisplaced intertrochanteric fracture. Doing okay. 2. A month out from a left humeral spiral fracture from a fall. It is healing. Brace is fitting ap propriately. PLAN: 1. DVT prophylaxis includes thigh-high TEDs, SCDs, and she can go back on her Plavix. 2. PT/OT. She can fully weightbear as tolerated in the left lower extremity. 3. Pain control, doing okay with current pain regimen. 4. Left humeral diaphyseal fracture. Looks to be healing in the brace. There is some slight malali gnment, which is certainly acceptable. It would be best for her to be head of the bed up as much as possible to help keep this aligned and help with pain. 5. Disposition: She will likely be okay for discharge any time medically stable. I need to see her back two to three weeks out from surgery date. She is weightbearing as tolerated. Needs to go to a Briscoe brace at all times. I will see her back in 2-3 weeks. Any orthopedic questions can be di rected to me at [phone]. Job ID: [id number]
[2022-07-06] MEDS: MAGNESIUM OXIDE 400 MG TAB PO SCH (11:17)
[2022-07-06] MEDS ORDERED: POLYETHYLENE (MIRALAX) 17 GM PACK PO ONE (16:15)
[2022-07-06] MEDS: SENNA 8.6 MG TAB PO SCH (17:29)
[2022-07-07] MEDS: oxyCODONE HCL IR 5 MG TAB (IMMEDIATE RELEASE) PO PRN (05:12)
[2022-07-07] MEDS: LEVOTHYROXINE SODIUM 125 MCG TABLET PO SCH (05:13)
[2022-07-07] MEDS: SODIUM CHLORIDE 0.9% 1000ML 1,000 ML IV SCH (05:14)
[2022-07-07 06:58] LABS: Hematocrit (blood only) 26.4 % (34.1-44.9); Hemoglobin 8.8 g/dl (12.0-16.0); Mean Corpuscular Hgb Conc 33.3 g/dL (32.0-36.0); Mean Platelet Volume 10.4 fL (9.4-12.3); Platelet Count 89 K/uL (130-400); RDW Coefficient of Variation 12.2 % (11.5-14.5); RDW Standard Deviation 41.9 fL (36.4-46.3); Red Blood Count 2.84 M/uL (3.93-5.22); White Blood Count 7.04 K/ul (4.8-10.8)
[2022-07-07 07:22] LABS: Anion Gap 7 (3-11); BUN Creatinine Ratio 32.3 (10-20); Blood Urea Nitrogen 20 mg/dl (6-23); Calcium 8.3 mg/dl (8.5-10.1); Carbon Dioxide 22 mmol/L (21-32); Chloride 107 mmol/L (98-107); Est GFR (African American) 108.9 ml/min; Glucose 107 mg/dl (70-99(Fasting)); Magnesium 1.9 mg/dl (1.7-2.4); Phosphorus 2.9 mg/dl (2.5-4.9); Potassium 3.8 mmol/L (3.5-5.1); Sodium 136 mmol/L (136-145)
--- NOTE | 2022-07-07 07:37 | Hospitalist Progress Note ---
Date of Service July 07, 2022 Assessment & Plan (1) Fall: (2) Ambulatory dysfunction: (3) Hypertension: (4) DM type 2 (diabetes mellitus, type 2): (5) Dyslipidemia: (6) Depression: (7) Anxiety: (8) 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: (9) History of pulmonary embolism: (10) History of CVA (cerebrovascular accident): Plan 67-year-old female presented to the [facility] ED status post mechanical fall. Additional PMH H includes hypertension, hyperlipidemia, insulin-dependent diabetic, TONE, depression and anxiety. Patient being followed by Dr. Gooden for spiral humeral fracture current treatment is splint. Pain control. Patient on Plavix status post PE in 2012. Patient had 2 strokes in the . Fall: Ambulatory dysfunction: Baseline ambulates with a cane Multiple fractures in the past including spiral humerus fracture and rib fractures Head CT: Negative Cervical Spine CT: Negative for fracture; + osteopenia and spondylitic change Humeral x-ray: subacute displaced fracture, shifted Ortho Consult placed: ED physician spoke with Dr. Gooden Per orthopedics - Looks to be healing in the brace. There is some slight malalignment, which is certainly acceptable. It would be best for her to be head of the bed up as much as possible to help keep this aligned and help with pain. Pain control: Was on oral Dilaudid 2 to 4 mg p.o. every 6 as outpatient; received Dilaudid IV 0.5 mg x 3 while in ED; will transition to oral oxycodone Opioid use may be contributing factor to increased falls Lidocaine patch ordered ECHO ordered last ECHO 2016 EF 65-69% and mild grade I diastolic dysfx PT/OT when cleared by Ortho L hip pain, intertrochanteric fracture within the proximal left femur Pt seen by orthopedics and MRI of L hip obtained - showing Intertrochanteric fracture of the proximal left femur Now s/p surg. repair w/ Dr. Gooden (07/05) Follow up in 2-3 weeks out from surgery date. She is weightbearing as tolerated. Needs to go to a Briscoe brace at all times. Any orthopedic questions can be directed at [phone] - Dr. Gooden. Chest pain - noted left sided cp this AM (07/07) - reports she was pulled up in bed (by ?) - CP reproducible on palpation -ECG, CXR unremarkable -will obtain chest CT to r/o rib fracture or any acute pathology - FINDINGS: No thyroid nodule identified. No lymphadenopathy. The heart is normal in size without pericardial effusion. Mild coronary artery calcifications. No thoracic aortic aneurysm. Trace pleural effusions. No pneumothorax or overt pulmonary edema. Subsegmental dependent bibasilar consolidation. 5 mm nodule of the right upper lobe on image 119 appears new from the prior study and is likely infectious or inflammatory. Central airways are patent. Mild splenomegaly, 13 cm. No acute process of the imaged upper abdomen. Subacute appearing comminuted, displaced and angulated proximal to mid left diaphyseal fracture again noted deep tissue edema is likely secondary to expected postoperative change. Healing subacute nondisplaced anterior right-sided rib fractures re-demonstrated. Mild cortical angulation of a few anterior left-sided ribs are unchanged and may represent subacute or chronic nondisplaced fractures. Healed chronic mid sternal fracture. IMPRESSION: 1. Trace pleural effusions with subsegmental bibasilar atelectasis. 2. Healing subacute comminuted, displaced and angulated left humeral diaphyseal fracture is partially imaged. 3. Subacute nondisplaced anterior right-sided rib fractures are also again noted. Hypertension: Takes lisinopril, metoprolol; continue Creatinine: 0.78 Continue to monitor BP HLD: takes rosuvastatin; continue IDDM, type 2: Peripheral neuropathy: Takes Lantus 20 units SQ QAM/PM; continue Lantus with adjustments as outlined Takes Novolog 8units SQ before dinner Takes Trulicity weekly; hold while here: last dose: Takes Gabapentin 800 mg daily we will increase to 3 times daily for neuropathy; Last A1c 03/03: 6.8 Consult Glycemic Pharmacy History of PE: History of CVA: PE 2012, CVA x2 about 15 or 20 years ago Takes Plavix; hold for now until cleared by Ortho Patient was on Coumadin for PE transitioned to Plavix due to increased fall risk Takes Rosuvastatin; continue Plavix resumed Obstructive Sleep Apnea: Becomes hypoxic when sleeping Uses CPAP at home nightly; to bring in home CPAP Per and staff, patient is not very compliant with CPAP Depression and Anxiety: euthemic mood: Takes buproprion and sertraline; continue Hypothyroidism: On Synthroid; continue Disposition: PCP: Dr. Hilliard Code Status: Full code VTE Prophylaxis: Teds and SCDs, plavix resumed Admission and Anticipated Discharge Date Admission Date: July 04, 2022 Subjective Pt seen in follow up of fall, hx of humeral fx, now w/ L hip fx Underwent surg. repair of L hip w/ Dr. Gooden Pt is laying in bed, awake and aware. Reports left-sided chest pain this morning. Reportedly she was pulled up in the bed, possibly by her . Patient's is present at the bedside. Chest pain is reproducible on palpation. EKG and chest x-ray obtained. No shortness of breath, palpitations. 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 dressings over L hip Neuro/Psych: AAOx3, normal affect but somewhat drowsy, answering appropriately, speech fluent, moving extremities Skin: warm, dry Results & Data Results & Data ([facility]) Vital Signs (Past 12 Hours) Vital Signs Temp Pulse Pulse Resp BP Pulse Ox O2 Del Method 07/07/22 02:59 91 H 18 132/67 91 Nasal Cannula 07/06/22 23:18 96 H 07/06/22 23:15 36.0 C L 93 H 18 145/70 H 98 Nasal Cannula 07/06/22 22:18 Nasal Cannula O2 Flow Rate 07/07/22 02:59 2 07/06/22 23:18 07/06/22 23:15 2 07/06/22 22:18 3 Laboratory Results 07/07/22 07/07/22 07/06/22 Range/Units 06:03 06:03 20:19 WBC 7.04 (4.8-10.8) K/ul RBC 2.84 L (3.93-5.22) M/uL Hgb 8.8 L (12.0-16.0) g/dl Hct 26.4 L (34.1-44.9) % MCV 93.0 (80.0-100.0) fL MCH 31.0 (25.0-34.0) pg MCHC 33.3 (32.0-36.0) g/dL RDW Std Deviation 41.9 (36.4-46.3) fL RDW Coeff of Dia 12.2 (11.5-14.5) % Plt Count 89 L (130-400) K/uL MPV 10.4 (9.4-12.3) fL Sodium 136 (136-145) mmol/L Potassium 3.8 (3.5-5.1) mmol/L Chloride 107 (98-107) mmol/L Carbon Dioxide 22 (21-32) mmol/L Anion Gap 7 (3-11) BUN 20 (6-23) mg/dl Creatinine 0.62 (0.6-1.2) mg/dl Est Cr Clr Drug Dosing Not Reportable Est GFR ( Amer) 108.9 ml/min Est GFR (Non-Af Amer) 94.0 ml/min BUN/Creatinine Ratio 32.3 H (10-20) Glucose 107 H (70-99(Fasting)) mg/dl POC Glucose 106 H (70-99) mg/dl Calcium 8.3 L (8.5-10.1) mg/dl Phosphorus 2.9 D (2.5-4.9) mg/dl Magnesium 1.9 (1.7-2.4) mg/dl 07/06/22 07/06/22 07/06/22 Range/Units 16:51 11:53 07:44 WBC (4.8-10.8) K/ul RBC (3.93-5.22) M/uL Hgb (12.0-16.0) g/dl Hct (34.1-44.9) % MCV (80.0-100.0) fL MCH (25.0-34.0) pg MCHC (32.0-36.0) g/dL RDW Std Deviation (36.4-46.3) fL RDW Coeff of Dia (11.5-14.5) % Plt Count (130-400) K/uL MPV (9.4-12.3) fL Sodium (136-145) mmol/L Potassium (3.5-5.1) mmol/L Chloride (98-107) mmol/L Carbon Dioxide (21-32) mmol/L Anion Gap (3-11) BUN (6-23) mg/dl Creatinine (0.6-1.2) mg/dl Est Cr Clr Drug Dosing Est GFR ( Amer) ml/min Est GFR (Non-Af Amer) ml/min BUN/Creatinine Ratio (10-20) Glucose (70-99(Fasting)) mg/dl POC Glucose 188 H 117 H 205 H (70-99) mg/dl Calcium (8.5-10.1) mg/dl Phosphorus (2.5-4.9) mg/dl Magnesium (1.7-2.4) mg/dl Medications Administered Current Inpatient Medications Acetaminophen (Acetaminophen 325 Mg Tab) 650 mg PO Q4H PRN PRN Reason: Pain or Fever Stop: 08/03/22 15:50 Al Hydrox/Mg Hydrox/Simethicone (Aluminum/Magnesium Susp 30 Ml Udc) 15 ml PO Q4H PRN PRN Reason: Dyspepsia Stop: 08/03/22 15:50 Bupropion HCl (Bupropion Hcl 100 Mg Tablet) 150 mg PO QAM BRENDA Stop: 08/04/22 08:59 Last Admin: 07/06/22 08:11 Dose: 150 mg Clopidogrel Bisulfate (Clopidogrel Bisulfate 75 Mg Tab) 75 mg PO DAILY BRENDA Stop: 08/04/22 08:59 Last Admin: 07/06/22 08:12 Dose: 75 mg Dextrose (Dextrose 50% 50 Ml Syringe) 25 - 50 ml IV UD PRN; Protocol PRN Reason: Hypoglycemia Protocol Stop: 08/03/22 12:31 Docusate Sodium (Docusate Sodium 100 Mg Cap) 100 mg PO BID PRN PRN Reason: Constipation Stop: 08/03/22 14:05 Gabapentin (Gabapentin 800 Mg Tab) 800 mg PO DAILY REPLACED BY [facility] Stop: 08/06/22 08:59 Glucagon (Glucagon For Inj 1 Mg Vial) 1 mg SQ UD PRN; Protocol PRN Reason: Hypoglycemia Protocol Stop: 08/03/22 12:31 Glucose (Glucose 40% Gel 15 Gm Tube) 15 - 30 gm PO UD PRN; Protocol PRN Reason: Hypoglycemia Protocol Stop: 08/03/22 12:31 Glucose (Glucose 10 Tab/Tube) 4 - 8 tab PO UD PRN; Protocol PRN Reason: Hypoglycemia Treatment Stop: 08/03/22 12:31 Sodium Chloride (Nss 1000ml) 1,000 mls @ 80 mls/hr IV .[id number] REPLACED BY [facility] Stop: 08/05/22 16:59 Last Admin: 07/07/22 05:14 Dose: 80 mls/hr Insulin Aspart (Insulin Aspart Per Unit) 0 units SC ACHS REPLACED BY [facility] Stop: 08/03/22 14:29 Last Admin: 07/06/22 20:54 Dose: Not Given Insulin Glargine (Lantus Per Unit Charge) 10 units SQ BID REPLACED BY [facility]; Protocol Stop: 08/05/22 08:59 Last Admin: 07/06/22 20:53 Dose: 10 units Levothyroxine Sodium (Levothyroxine Sodium 125 Mcg Tablet) 125 mcg PO DAILYBB REPLACED BY [facility] Stop: 08/04/22 06:29 Last Admin: 07/07/22 05:13 Dose: 125 mcg Lidocaine (Lidocaine 5% 1 Patch) [facility] Stop: 08/03/22 15:50 Last Admin: 07/06/22 08:13 Dose: 1 patch Lisinopril (Lisinopril 20 Mg Tab) 20 mg PO [facility] Stop: 08/04/22 08:59 Last Admin: 07/06/22 08:13 Dose: 20 mg Lorazepam (Lorazepam 0.5 Mg Tab) 0.5 mg PO TID PRN PRN Reason: Anxiety Stop: 08/04/22 00:03 Last Admin: 07/06/22 19:26 Dose: 0.5 mg Magnesium Hydroxide (Magnesium Hydroxide Susp 30 Ml Udc) 30 ml PO Q12H PRN PRN Reason: Constipation Stop: 08/03/22 15:50 Magnesium Oxide (Magnesium Oxide 400 Mg Tab) 400 mg PO [facility] Stop: 08/05/22 08:59 Last Admin: 07/06/22 11:17 Dose: 400 mg Metoprolol Succinate (Metoprolol Succ 25mg Ext Rel Tab) 25 mg PO DAILY REPLACED BY [facility] Stop: 08/04/22 08:59 Last Admin: 07/06/22 08:12 Dose: 25 mg Miconazole Nitrate (Miconazole Nitrate Powder 43 Gm) 1 appln EXT PRN PRN PRN Reason: Affected Skin Folds Stop: 08/04/22 15:39 Miscellaneous (Carbohydrates For Hypoglycemia ) 15 - 30 gm PO UD PRN PRN Reason: Hypoglycemia Protocol Stop: 08/03/22 12:31 Miscellaneous (Remove Lidoderm Patch) 1 each N/A DAILY@2100 REPLACED BY [facility] Stop: 08/03/22 22:59 Last Admin: 07/06/22 20:56 Dose: 1 each Miscellaneous Information (Pharmacy Glycemic Mgmt Consult) 1 each N/A UD PRN PRN Reason: Consult Stop: 08/03/22 12:31 Ondansetron HCl (Ondansetron 4 Mg Od Tab) 4 mg PO Q6H PRN PRN Reason: Nausea And Vomiting Stop: 08/03/22 14:04 Ondansetron HCl (Ondansetron Inj 2 Mg/Ml 2 Ml Vial) 4 mg IV Q6H PRN PRN Reason: Nausea Stop: 08/03/22 15:50 Oxycodone HCl (Oxycodone Hcl Ir 5 Mg Tab (Immediate Release)) 5 mg PO Q6H PRN PRN Reason: Pain Stop: 07/18/22 12:29 Last Admin: 07/07/22 05:12 Dose: 5 mg Polyethylene Glycol (Polyethylene (Miralax) 17 Gm Pack) 17 gm PO DAILY PRN PRN Reason: Constipation Stop: 08/03/22 15:50 Polyethylene Glycol (Polyethylene (Miralax) 17 Gm Pack) 17 gm PO Q6 BRENDA Stop: 08/06/22 17:59 Rosuvastatin Calcium (Rosuvastatin Calcium 20 Mg Tab) 20 mg PO DAILY REPLACED BY [facility] Stop: 08/04/22 08:59 Last Admin: 07/06/22 08:11 Dose: 20 mg Sennosides (Senna 8.6 Mg Tab) 8.6 mg PO QAM REPLACED BY [facility] Stop: 08/05/22 16:14 Last Admin: 07/06/22 17:29 Dose: 8.6 mg Sertraline HCl (Sertraline Hcl 100 Mg Tablet) 200 mg PO DAILY REPLACED BY [facility] Stop: 08/04/22 08:59 Last Admin: 07/06/22 08:13 Dose: 200 mg Vitamin D (Cholecalciferol 1,000 Units 25 Mcg Tab) 2,000 units PO QAM REPLACED BY [facility] Stop: 08/06/22 08:59 (1) DM type 2 (diabetes mellitus, type 2) Diabetes mellitus complication status: without complication Diabetes mellitus senior living insulin use: with senior living use Qualified Code(s): E11.9 - Type 2 diabetes mellitus without complications; Z79.4 - penitentiary (current) use of insulin
[2022-07-07] MEDS: METOPROLOL SUCC 25MG EXT REL TAB PO SCH (08:03)
[2022-07-07] MEDS: SERTRALINE HCL 100 MG TABLET PO SCH (08:03)
[2022-07-07] MEDS: lisinopril 20 MG TAB PO SCH (08:04)
[2022-07-07] MEDS: GABAPENTIN 800 MG TAB PO SCH (08:04)
[2022-07-07] MEDS: SENNA 8.6 MG TAB PO SCH (08:04)
[2022-07-07] MEDS: CLOPIDOGREL BISULFATE 75 MG TAB PO SCH (08:04)
[2022-07-07] MEDS: buPROPion HCl 100 MG TABLET PO SCH (08:04)
[2022-07-07] MEDS: ROSUVASTATIN CALCIUM 20 MG TAB PO SCH (08:04)
[2022-07-07] MEDS: MAGNESIUM OXIDE 400 MG TAB PO SCH (08:05)
[2022-07-07] MEDS: LIDOCAINE 5% 1 PATCH TD SCH (08:05)
[2022-07-07] MEDS: CHOLECALCIFEROL 1,000 UNITS 25 MCG TAB PO SCH (08:05)
[2022-07-07] MEDS: INSULIN ASPART PER UNIT SC SCH ×4 (08:26→20:40)
[2022-07-07] MEDS: LANTUS PER UNIT CHARGE SQ SCH ×2 (08:27→20:41)
[2022-07-07] MEDS: LORazepam 0.5 MG TAB PO PRN ×2 (09:09→20:40)
--- NOTE | 2022-07-07 09:14 | Progress Notes ---
SUBJECTIVE: A 67-year-old white female postoperative day 2 from IM nailing of a left intertrochanter ic fracture. She is also about a month out from the humerus fracture. She is doing okay. Having a moderate amount of pain mostly in the hip more than the arm. No new complaints. OBJECTIVE: VITAL SIGNS: Temperature 37.4. Vital signs are stable. GENERAL: Shows a pleasant, elderly female. She is sitting up in bed. Just looks a little bit worn out. EXTREMITIES: Examination of the left hip reveals the leg to be well aligned. The dressings are stephane n, dry, and intact. Just a little bit of bloody drainage. She is neurologically intact. Examination of the left arm reveals the fracture brace to be in place. She can flex and extend her f ingers appropriately and her wrist appropriately. She is neurologically intact. LABORATORY DATA: Hemoglobin 8.8. Hematocrit 26.4. Electrolytes are stable. ASSESSMENT: A 67-year-old white female with multiple medical comorbidities, postoperative day 2 from intramedullary nailing of a left intertrochanteric fracture. She is also month out from a humeral d iaphyseal fracture treated with a brace. She is doing okay. She has got multiple medical comorbidit ies, which are likely going to be her bigger issues over time. PLAN: 1. DVT prophylaxis including thigh-high TEDs, SCDs, and back on her Plavix. 2. PT/OT. She can weight bear as tolerated. 3. Left humerus fracture. Continue Briscoe brace for the next month. Sling as well. 4. Disposition routine medical management. She got multiple medical comorbidities. 5. Disposition: She is orthopedically okay for discharge any time medically stable. I need to see her back in about 2-3 weeks. Any orthopedic questions can be directed to me at [phone]. Job ID: [id number]
--- NOTE | 2022-07-07 09:34 | XRay Report ---
XR chest 1V portable CLINICAL HISTORY: Left chest/ribcage pain TECHNIQUE: Single frontal radiograph of the chest was obtained. Comparison: Comparison is made to chest radiograph 06/01/2022 FINDINGS: No lines and tubes are seen. The cardiomediastinal silhouette is normal. The lungs are clear. No evid ence of pleural effusion or pneumothorax. Partial visualization of subacute appearing left humeral fr acture. IMPRESSION: No acute chest disease. Within the limits of a nondedicated exam, no definite left rib fracture is se en. ACT 112: Negative or not required by law. Electronically signed by: Boaz Carolina M.D. 07/07/2022 9:32 AM
--- NOTE | 2022-07-07 10:34 | Pharmacy Report ---
Pharmacy Glycemic Short Note 2 - Date of Service July 07, 2022 - Glycemic Short BSG Results (Last 24 hours): 07/06/22 07/06/22 07/06/22 11:53 16:51 20:19 Glucose POC Glucose 117 H 188 H 106 H 07/07/22 07/07/22 06:03 07:35 Glucose 107 H POC Glucose 114 H OUTPATIENT ANTIDIABETIC REGIMEN: * Lantus 20 units SC BID * Novolog 8 units SC with dinner * Trulicity 4.5 mg SC weekly * HbA1c = 6.3% (05/26/22) ASSESSMENT: 07/07: * Patient received 33 units of insulin yesterday, 20 units basal + 13 units bolus. BSGs were: [phone] mg/dL. * Fasting BSG improved to 114 mg/dL this morning. Will not change basal as believe AM fasting yesterday was falsely elevated. * BSGs dropped significantly following Novolog yesterday so will loosen Novolog parameters today. 07/05: * Patient NPO today while waiting on MRI results - subsequently revealed nondisplaced intertrochanteric fracture of left femur * Plan is for OR today * BSGs reasonably controlled since time of admission with basal insulin only * Patient has well-controlled T2DM based on A1c so home regimen is likely too aggressive while inpatient given differences in diet * Will utilize scaled Lantus today to allow for increased/decreased dose based on BSG 07/04: * Patient admitted with fall, hip pain. Currently ordered a diet. Ortho consulted * BSG on labs this morning 219 mg/dL. * Home regimen more Basal heavy, will aim for more 50:50 split while inpatient * Start with weight based stress of 2 novolog dosing, and scale for lantus PLAN FOR INPATIENT GLYCEMIC CONTROL: * Basal insulin * Lantus 10 units SC BID * Bolus insulin * NovoLog per scale ACHS or Q6hrs while NPO * Goal Range: Low 110 mg/dL - High 140 mg/dL * Correction Factor: 35 mg/dL/unit * Nutritional / Prandial insulin per carb ratio of 1 unit per 12 grams CHO consumed
--- NOTE | 2022-07-07 14:32 | CT Scan Report ---
CT chest diagnostic wo con CT DOSE: 647.12 mGycm CLINICAL HISTORY: 67 years-old Female with left chest/?ribcage pain. Acute left-sided chest pain TECHNIQUE: Multiaxial CT images of the chest were performed without contrast. A dose lowering techni que was utilized adhering to the principles of ALARA. COMPARISON: Chest CT and left humeral radiographs 07/04/2022 FINDINGS: No thyroid nodule identified. No lymphadenopathy. The heart is normal in size without peric ardial effusion. Mild coronary artery calcifications. No thoracic aortic aneurysm. Trace pleural effusions. No pneumothorax or overt pulmonary edema. Subsegmental dependent bibasilar c onsolidation. 5 mm nodule of the right upper lobe on image 119 appears new from the prior study and i s likely infectious or inflammatory. Central airways are patent. Mild splenomegaly, 13 cm. No acute process of the imaged upper abdomen. Subacute appearing comminuted , displaced and angulated proximal to mid left diaphyseal fracture again noted deep tissue edema is l ikely secondary to expected postoperative change. Healing subacute nondisplaced anterior right-sided rib fractures redemonstrated. Mild cortical angulation of a few anterior left-sided ribs are unchange d and may represent subacute or chronic nondisplaced fractures. Healed chronic mid sternal fracture. IMPRESSION: 1. Trace pleural effusions with subsegmental bibasilar atelectasis. 2. Healing subacute comminuted, displaced and angulated left humeral diaphyseal fracture is partially imaged. 3. Subacute nondisplaced anterior right-sided rib fractures are also again noted. ACT 112: Negative or not required by law. Electronically signed by: Albaro Pedersen M.D. 07/07/2022 2:29 PM
--- NOTE | 2022-07-07 15:28 | Electrocardiogram Report ---
Test Reason : Blood Pressure : / mmHG Vent. Rate : 089 BPM Atrial Rate : 089 BPM P-R Int : 150 ms QRS Dur : 134 ms QT Int : 388 ms P-R-T Axes : 054 030 023 degrees QTc Int : 472 ms Normal sinus rhythm Non-specific intra-ventricular conduction block Abnormal ECG When compared with ECG of 04-JUL-2022 07:48, No significant change Confirmed by Salty Corcoran ([id number]) on 07/07/2022 3:27:53 PM Referred By: REFERRED SELF Confirmed By:Salty Corcoran
[2022-07-07] MEDS: ACETAMINOPHEN 325 MG TAB PO PRN ×2 (15:29→20:39)
[2022-07-07] MEDS: POLYETHYLENE (MIRALAX) 17 GM PACK PO SCH (17:13)
[2022-07-07 17:32] LABS: MDA negative; MDEA negative; MDMA (Ecstasy) Urine, Confirm negative
[2022-07-08] MEDS: POLYETHYLENE (MIRALAX) 17 GM PACK PO SCH ×3 (00:12→11:32)
[2022-07-08] MEDS: ACETAMINOPHEN 325 MG TAB PO PRN ×4 (01:04→20:18)
[2022-07-08] MEDS: LEVOTHYROXINE SODIUM 125 MCG TABLET PO SCH (05:36)
[2022-07-08 05:44] LABS: Hematocrit (blood only) 26.9 % (34.1-44.9); Mean Corpuscular Hemoglobin 30.7 pg (25.0-34.0); Mean Corpuscular Hgb Conc 33.5 g/dL (32.0-36.0); Mean Corpuscular Volume 91.8 fL (80.0-100.0); Mean Platelet Volume 10.6 fL (9.4-12.3); Platelet Count 99 K/uL (130-400); RDW Coefficient of Variation 12.3 % (11.5-14.5); RDW Standard Deviation 41.3 fL (36.4-46.3); Red Blood Count 2.93 M/uL (3.93-5.22); White Blood Count 6.15 K/ul (4.8-10.8)
[2022-07-08 06:04] LABS: Anion Gap 5 (3-11); BUN Creatinine Ratio 33.3 (10-20); Blood Urea Nitrogen 18 mg/dl (6-23); Calcium 8.6 mg/dl (8.5-10.1); Carbon Dioxide 26 mmol/L (21-32); Chloride 109 mmol/L (98-107); Est GFR (Non-African American) 98.3 ml/min; Glucose 103 mg/dl (70-99(Fasting)); Magnesium 1.9 mg/dl (1.7-2.4); Phosphorus 3.1 mg/dl (2.5-4.9); Potassium 3.7 mmol/L (3.5-5.1); Sodium 140 mmol/L (136-145)
--- NOTE | 2022-07-08 07:53 | Hospitalist Progress Note ---
Date of Service July 08, 2022 Assessment & Plan (1) Fall: (2) Ambulatory dysfunction: (3) Hypertension: (4) DM type 2 (diabetes mellitus, type 2): (5) Dyslipidemia: (6) Depression: (7) Anxiety: (8) 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: (9) History of pulmonary embolism: (10) History of CVA (cerebrovascular accident): Plan 67-year-old female presented to the [facility] ED status post mechanical fall. Additional PMH H includes hypertension, hyperlipidemia, insulin-dependent diabetic, TONE, depression and anxiety. Patient being followed by Dr. Gooden for spiral humeral fracture current treatment is splint. Pain control. Patient on Plavix status post PE in 2012. Patient had 2 strokes in the . Fall: Ambulatory dysfunction: Baseline ambulates with a cane Multiple fractures in the past including spiral humerus fracture and rib fractures Head CT: Negative Cervical Spine CT: Negative for fracture; + osteopenia and spondylitic change Humeral x-ray: subacute displaced fracture, shifted Ortho Consult placed: ED physician spoke with Dr. Gooden Per orthopedics - Looks to be healing in the brace. There is some slight malalignment, which is certainly acceptable. It would be best for her to be head of the bed up as much as possible to help keep this aligned and help with pain. Pain control: Was on oral Dilaudid 2 to 4 mg p.o. every 6 as outpatient; received Dilaudid IV 0.5 mg x 3 while in ED; will transition to oral oxycodone Opioid use may be contributing factor to increased falls Lidocaine patch ordered ECHO ordered last ECHO 2016 EF 65-69% and mild grade I diastolic dysfx PT/OT Plan to DC to rehab - Encompass L hip pain, intertrochanteric fracture within the proximal left femur Pt seen by orthopedics and MRI of L hip obtained - showing Intertrochanteric fracture of the proximal left femur Now s/p surg. repair w/ Dr. Gooden (07/05) Follow up in 2-3 weeks out from surgery date. She is weightbearing as tolerated. Needs to use Briscoe brace at all times. Any orthopedic questions can be directed at [phone] - Dr. Gooden. Chest pain - noted left sided cp this AM (07/07) - reports she was pulled up in bed (by ?) - CP reproducible on palpation -ECG, CXR unremarkable -obtained chest CT to r/o rib fracture or any acute pathology - FINDINGS: No thyroid nodule identified. No lymphadenopathy. The heart is normal in size without pericardial effusion. Mild coronary artery calcifications. No thoracic aortic aneurysm. Trace pleural effusions. No pneumothorax or overt pulmonary edema. Subsegmental dependent bibasilar consolidation. 5 mm nodule of the right upper lobe on image 119 appears new from the prior study and is likely infectious or inflammatory. Central airways are patent. Mild splenomegaly, 13 cm. No acute process of the imaged upper abdomen. Subacute appearing comminuted, displaced and angulated proximal to mid left diaphyseal fracture again noted deep tissue edema is likely secondary to expected postoperative change. Healing subacute nondisplaced anterior right-sided rib fractures re-demonstrated. Mild cortical angulation of a few anterior left-sided ribs are unchanged and may represent subacute or chronic nondisplaced fractures. Healed chronic mid sternal fracture. IMPRESSION: 1. Trace pleural effusions with subsegmental bibasilar atelectasis. 2. Healing subacute comminuted, displaced and angulated left humeral diaphyseal fracture is partially imaged. 3. Subacute nondisplaced anterior right-sided rib fractures are also again noted. 07/08 -patient appears comfortable this morning, no reports of chest pain Hypertension: Takes lisinopril, metoprolol; continue Creatinine: 0.78 Continue to monitor BP HLD: takes rosuvastatin; continue IDDM, type 2: Peripheral neuropathy: Takes Lantus 20 units SQ QAM/PM; continue Lantus with adjustments as outlined Takes Novolog 8units SQ before dinner Takes Trulicity weekly; hold while here: last dose: Takes Gabapentin 800 mg daily we will increase to 3 times daily for neuropathy; Last A1c 03/03: 6.8 Consult Glycemic Pharmacy History of PE: History of CVA: PE 2012, CVA x2 about 15 or 20 years ago Takes Plavix; hold for now until cleared by Ortho Patient was on Coumadin for PE transitioned to Plavix due to increased fall risk Takes Rosuvastatin; continue Plavix resumed Obstructive Sleep Apnea: Becomes hypoxic when sleeping Uses CPAP at home nightly; to bring in home CPAP Per and staff, patient is not very compliant with CPAP Depression and Anxiety: euthemic mood: Takes buproprion and sertraline; continue Hypothyroidism: On Synthroid; continue Disposition: PCP: Dr. Rozick Code Status: Full code VTE Prophylaxis: Teds and SCDs, plavix resumed Admission and Anticipated Discharge Date Admission Date: July 04, 2022 Subjective Pt seen in follow up of fall, hx of humeral fx, now w/ L hip fx Underwent surg. repair of L hip w/ Dr. Gooden Pt is laying in bed, awake and aware. in NAD No shortness of breath, palpitations. No abd.pain, n/v Reports pain in left hip present at the bedside. Review of Systems Review of Systems: All systems reviewed & are unremarkable except as noted in Subjective Physical Exam Physical Exam: General: elderly F, WD/WN, in NAD Lungs: CTA but somewhat diminished, no wheezing or crackles Cardiac: normal S1/S2, no murmur Abd: ND, NT, soft MSK: L arm in a sling, good marine extension agent strength of the L hand, R toe wound is healing well, surg. dressings over L hip Neuro/Psych: AAOx3, normal affect but somewhat drowsy, answering appropriately, speech fluent, moving extremities Skin: warm, dry Results & Data Results & Data ([facility]) Vital Signs (Past 12 Hours) Vital Signs Temp Pulse Pulse Resp BP Pulse Ox O2 Del Method 07/08/22 07:24 36.5 C 82 20 135/68 99 Nasal Cannula 07/08/22 07:22 82 07/08/22 03:48 36.6 C 82 18 165/90 H 98 Nasal Cannula 07/08/22 01:45 85 07/07/22 23:12 36.9 C 84 18 116/67 95 Nasal Cannula 07/07/22 20:16 Nasal Cannula O2 Flow Rate 07/08/22 07:24 2 07/08/22 07:22 07/08/22 03:48 2 07/08/22 01:45 07/07/22 23:12 2 07/07/22 20:16 2 Laboratory Results 07/08/22 07/08/22 07/07/22 Range/Units 05:13 05:13 20:12 WBC 6.15 (4.8-10.8) K/ul RBC 2.93 L (3.93-5.22) M/uL Hgb 9.0 L (12.0-16.0) g/dl Hct 26.9 L (34.1-44.9) % MCV 91.8 (80.0-100.0) fL MCH 30.7 (25.0-34.0) pg MCHC 33.5 (32.0-36.0) g/dL RDW Std Deviation 41.3 (36.4-46.3) fL RDW Coeff of Dia 12.3 (11.5-14.5) % Plt Count 99 L (130-400) K/uL MPV 10.6 (9.4-12.3) fL Sodium 140 (136-145) mmol/L Potassium 3.7 (3.5-5.1) mmol/L Chloride 109 H (98-107) mmol/L Carbon Dioxide 26 (21-32) mmol/L Anion Gap 5 (3-11) BUN 18 (6-23) mg/dl Creatinine 0.54 L (0.6-1.2) mg/dl Est Cr Clr Drug Dosing Not Reportable Est GFR ( Amer) 114.0 ml/min Est GFR (Non-Af Amer) 98.3 ml/min BUN/Creatinine Ratio 33.3 H (10-20) Glucose 103 H (70-99(Fasting)) mg/dl POC Glucose 216 H (70-99) mg/dl Calcium 8.6 (8.5-10.1) mg/dl Phosphorus 3.1 (2.5-4.9) mg/dl Magnesium 1.9 (1.7-2.4) mg/dl Urine MDEA MDMA Urine MDMA 07/07/22 07/07/22 07/04/22 Range/Units 16:35 11:37 09:55 WBC (4.8-10.8) K/ul RBC (3.93-5.22) M/uL Hgb (12.0-16.0) g/dl Hct (34.1-44.9) % MCV (80.0-100.0) fL MCH (25.0-34.0) pg MCHC (32.0-36.0) g/dL RDW Std Deviation (36.4-46.3) fL RDW Coeff of Dia (11.5-14.5) % Plt Count (130-400) K/uL MPV (9.4-12.3) fL Sodium (136-145) mmol/L Potassium (3.5-5.1) mmol/L Chloride (98-107) mmol/L Carbon Dioxide (21-32) mmol/L Anion Gap (3-11) BUN (6-23) mg/dl Creatinine (0.6-1.2) mg/dl Est Cr Clr Drug Dosing Est GFR ( Amer) ml/min Est GFR (Non-Af Amer) ml/min BUN/Creatinine Ratio (10-20) Glucose (70-99(Fasting)) mg/dl POC Glucose 142 H 162 H (70-99) mg/dl Calcium (8.5-10.1) mg/dl Phosphorus (2.5-4.9) mg/dl Magnesium (1.7-2.4) mg/dl Urine MDEA negative MDMA negative Urine MDMA negative Medications Administered Current Inpatient Medications Acetaminophen (Acetaminophen 325 Mg Tab) 650 mg PO Q4H PRN PRN Reason: Pain or Fever Stop: 08/03/22 15:50 Last Admin: 07/08/22 05:36 Dose: 650 mg Al Hydrox/Mg Hydrox/Simethicone (Aluminum/Magnesium Susp 30 Ml Udc) 15 ml PO Q4H PRN PRN Reason: Dyspepsia Stop: 08/03/22 15:50 Bupropion HCl (Bupropion Hcl 100 Mg Tablet) 150 mg PO QAM [facility] Stop: 08/04/22 08:59 Last Admin: 07/07/22 08:04 Dose: 150 mg Clopidogrel Bisulfate (Clopidogrel Bisulfate 75 Mg Tab) 75 mg PO DAILY [facility] Stop: 08/04/22 08:59 Last Admin: 07/07/22 08:04 Dose: 75 mg Dextrose (Dextrose 50% 50 Ml Syringe) 25 - 50 ml IV UD PRN; Protocol PRN Reason: Hypoglycemia Protocol Stop: 08/03/22 12:31 Docusate Sodium (Docusate Sodium 100 Mg Cap) 100 mg PO BID PRN PRN Reason: Constipation Stop: 08/03/22 14:05 Gabapentin (Gabapentin 800 Mg Tab) 800 mg PO DAILY [facility] Stop: 08/06/22 08:59 Last Admin: 07/07/22 08:04 Dose: 800 mg Glucagon (Glucagon For Inj 1 Mg Vial) 1 mg SQ UD PRN; Protocol PRN Reason: Hypoglycemia Protocol Stop: 08/03/22 12:31 Glucose (Glucose 40% Gel 15 Gm Tube) 15 - 30 gm PO UD PRN; Protocol PRN Reason: Hypoglycemia Protocol Stop: 08/03/22 12:31 Glucose (Glucose 10 Tab/Tube) 4 - 8 tab PO UD PRN; Protocol PRN Reason: Hypoglycemia Treatment Stop: 08/03/22 12:31 Insulin Aspart (Insulin Aspart Per Unit) 0 units SC ACHS [facility] Stop: 08/03/22 14:29 Last Admin: 07/07/22 20:40 Dose: 3 units Insulin Glargine (Lantus Per Unit Charge) 10 units SQ BID [facility]; Protocol Stop: 08/05/22 08:59 Last Admin: 07/07/22 20:41 Dose: 10 units Levothyroxine Sodium (Levothyroxine Sodium 125 Mcg Tablet) 125 mcg PO DAILYBB [facility] Stop: 08/04/22 06:29 Last Admin: 07/08/22 05:36 Dose: 125 mcg Lidocaine (Lidocaine 5% 1 Patch) [facility] [place]: 08/03/22 15:50 Last Admin: 07/07/22 08:05 Dose: 1 patch Lisinopril (Lisinopril 20 Mg Tab) 20 mg PO QAM [facility] Stop: 08/04/22 08:59 Last Admin: 07/07/22 08:04 Dose: 20 mg Lorazepam (Lorazepam 0.5 Mg Tab) 0.5 mg PO TID PRN PRN Reason: Anxiety Stop: 08/04/22 00:03 Last Admin: 07/07/22 20:40 Dose: 0.5 mg Magnesium Hydroxide (Magnesium Hydroxide Susp 30 Ml Udc) 30 ml PO Q12H PRN PRN Reason: Constipation Stop: 08/03/22 15:50 Magnesium Oxide (Magnesium Oxide 400 Mg Tab) 400 mg PO QAM [facility] Stop: 08/05/22 08:59 Last Admin: 07/07/22 08:05 Dose: 400 mg Metoprolol Succinate (Metoprolol Succ 25mg Ext Rel Tab) 25 mg PO DAILY [facility] Stop: 08/04/22 08:59 Last Admin: 07/07/22 08:03 Dose: 25 mg Miconazole Nitrate (Miconazole Nitrate Powder 43 Gm) 1 appln EXT PRN PRN PRN Reason: Affected Skin Folds Stop: 08/04/22 15:39 Miscellaneous (Carbohydrates For Hypoglycemia ) 15 - 30 gm PO UD PRN PRN Reason: Hypoglycemia Protocol Stop: 08/03/22 12:31 Miscellaneous (Remove Lidoderm Patch) 1 each N/A DAILY@2100 [facility] Stop: 08/03/22 22:59 Last Admin: 07/07/22 20:50 Dose: Not Given Miscellaneous Information (Pharmacy Glycemic Mgmt Consult) 1 each N/A UD PRN PRN Reason: Consult Stop: 08/03/22 12:31 Ondansetron HCl (Ondansetron 4 Mg Od Tab) 4 mg PO Q6H PRN PRN Reason: Nausea And Vomiting Stop: 08/03/22 14:04 Ondansetron HCl (Ondansetron Inj 2 Mg/Ml 2 Ml Vial) 4 mg IV Q6H PRN PRN Reason: Nausea Stop: 08/03/22 15:50 Oxycodone HCl (Oxycodone Hcl Ir 5 Mg Tab (Immediate Release)) 5 mg PO Q6H PRN PRN Reason: Pain Stop: 07/18/22 12:29 Last Admin: 07/07/22 05:12 Dose: 5 mg Polyethylene Glycol (Polyethylene (Miralax) 17 Gm Pack) 17 gm PO DAILY PRN PRN Reason: Constipation Stop: 08/03/22 15:50 Polyethylene Glycol (Polyethylene (Miralax) 17 Gm Pack) 17 gm PO Q6 [facility] Stop: 08/06/22 17:59 Last Admin: 07/08/22 05:36 Dose: 17 gm Rosuvastatin Calcium (Rosuvastatin Calcium 20 Mg Tab) 20 mg PO DAILY [facility] Stop: 08/04/22 08:59 Last Admin: 07/07/22 08:04 Dose: 20 mg Sennosides (Senna 8.6 Mg Tab) 8.6 mg PO QAM [facility] Stop: 08/05/22 16:14 Last Admin: 07/07/22 08:04 Dose: 8.6 mg Sertraline HCl (Sertraline Hcl 100 Mg Tablet) 200 mg PO DAILY [facility] Stop: 08/04/22 08:59 Last Admin: 07/07/22 08:03 Dose: 200 mg Tramadol HCl (Tramadol Hcl 50 Mg Tablet) 25 mg PO Q4H PRN PRN Reason: Pain Stop: 08/06/22 17:38 Vitamin D (Cholecalciferol 1,000 Units 25 Mcg Tab) 2,000 units PO QAM [facility] Stop: 08/06/22 08:59 Last Admin: 07/07/22 08:05 Dose: 2,000 units (1) DM type 2 (diabetes mellitus, type 2) Diabetes mellitus complication status: without complication Diabetes mellitus halfway insulin use: with halfway use Qualified Code(s): E11.9 - Type 2 diabetes mellitus without complications; Z79.4 - buttermaker (current) use of insulin
[2022-07-08] MEDS: INSULIN ASPART PER UNIT SC SCH ×6 (08:00→20:32)
--- NOTE | 2022-07-08 08:54 | Progress Notes ---
DATE OF SERVICE: 07/08/2022. SUBJECTIVE: A 67-year-old white female with multiple medical comorbidities, now postop day 3 from IM nailing of a left intertrochanteric fracture. She is about 4+ weeks out from a humerus fracture. S he has been doing a little bit better today. Still complaining of some moderate pain in her hip. No new complaints. OBJECTIVE: VITAL SIGNS: Temperature 36.5. Vital signs are stable. GENERAL: Shows a frail, elderly female. Looks older than her stated age. She is lying in bed. She looks reasonably comfortable, but complaining of pain. EXTREMITIES: Examination of the left hip reveals the dressing to be clean, dry and intact. Leg is w ell aligned. She is neurologically intact. Examination of the left arm reveals the fracture brace t o be in place. Arm looks well aligned. No significant swelling. LABORATORY DATA: Hemoglobin 9.0. Hematocrit 26.9. ASSESSMENT: A 67-year-old white female postoperative day #3 from IM nailing of a left intertrochante marv fracture and about 4-1/2 weeks out from treatment of a closed humerus fracture. The humerus frac ture is healing. The left leg looks well aligned. She is neurologically intact. PLAN: 1. DVT prophylaxis includes thigh-high TEDs, SCDs and back on the Plavix. 2. PT/OT. She can fully weightbear in the left leg. Limited use of the left arm. 3. Left humerus fracture. Continue Briscoe brace and a sling. She will need at least a 2-4 more weeks in the sling. 4. Disposition: She is orthopedically okay for discharge any time medically stable. I need to see her back in about 2 weeks. Brace on her left arm should stay in place. Routine wound care left hip. She is weightbearing as tolerated. Any orthopedic questions can be directed to me at [phone]. Job ID: [id number]
[2022-07-08] MEDS: LANTUS PER UNIT CHARGE SQ SCH ×2 (09:18→20:32)
[2022-07-08] MEDS: SENNA 8.6 MG TAB PO SCH (09:33)
[2022-07-08] MEDS: LIDOCAINE 5% 1 PATCH TD SCH (09:41)
[2022-07-08] MEDS: SERTRALINE HCL 100 MG TABLET PO SCH (09:43)
[2022-07-08] MEDS: buPROPion HCl 100 MG TABLET PO SCH (09:43)
[2022-07-08] MEDS: LORazepam 0.5 MG TAB PO PRN ×2 (09:43→20:18)
[2022-07-08] MEDS: GABAPENTIN 800 MG TAB PO SCH (09:43)
[2022-07-08] MEDS: lisinopril 20 MG TAB PO SCH (09:43)
[2022-07-08] MEDS: METOPROLOL SUCC 25MG EXT REL TAB PO SCH (09:44)
[2022-07-08] MEDS: CLOPIDOGREL BISULFATE 75 MG TAB PO SCH (09:44)
[2022-07-08] MEDS: ROSUVASTATIN CALCIUM 20 MG TAB PO SCH (09:44)
[2022-07-08] MEDS: MAGNESIUM OXIDE 400 MG TAB PO SCH (09:44)
[2022-07-08] MEDS: CHOLECALCIFEROL 1,000 UNITS 25 MCG TAB PO SCH (09:44)
[2022-07-08] MEDS: traMADol HCL 50 MG TABLET PO PRN (17:55)
[2022-07-09] MEDS: ACETAMINOPHEN 325 MG TAB PO PRN ×3 (05:52→20:06)
[2022-07-09] MEDS: LEVOTHYROXINE SODIUM 125 MCG TABLET PO SCH (05:52)
[2022-07-09] MEDS ORDERED: CETIRIZINE HCL 10 MG TABLET PO ONE (06:20)
[2022-07-09] MEDS ORDERED: SODIUM CHLORIDE 0.65% NA SOLN 45 ML (OCEAN) PRN (06:20)
[2022-07-09 07:09] LABS: Hematocrit (blood only) 29.6 % (34.1-44.9); Hemoglobin 9.8 g/dl (12.0-16.0); Mean Corpuscular Hemoglobin 30.5 pg (25.0-34.0); Mean Corpuscular Hgb Conc 33.1 g/dL (32.0-36.0); Mean Corpuscular Volume 92.2 fL (80.0-100.0); Mean Platelet Volume 10.5 fL (9.4-12.3); Platelet Count 120 K/uL (130-400); RDW Coefficient of Variation 12.2 % (11.5-14.5); RDW Standard Deviation 41.2 fL (36.4-46.3); Red Blood Count 3.21 M/uL (3.93-5.22); White Blood Count 5.51 K/ul (4.8-10.8)
[2022-07-09 07:27] LABS: Anion Gap 6 (3-11); BUN Creatinine Ratio 25.5 (10-20); Blood Urea Nitrogen 13 mg/dl (6-23); Calcium 8.6 mg/dl (8.5-10.1); Carbon Dioxide 27 mmol/L (21-32); Chloride 107 mmol/L (98-107); Est GFR (African American) 116.1 ml/min; Est GFR (Non-African American) 100.2 ml/min; Glucose 95 mg/dl (70-99(Fasting)); Magnesium 1.9 mg/dl (1.7-2.4); Phosphorus 3.1 mg/dl (2.5-4.9); Potassium 3.8 mmol/L (3.5-5.1); Sodium 140 mmol/L (136-145)
[2022-07-09] MEDS: INSULIN ASPART PER UNIT SC SCH ×4 (08:15→21:27)
[2022-07-09] MEDS: ROSUVASTATIN CALCIUM 20 MG TAB PO SCH (08:17)
[2022-07-09] MEDS: GABAPENTIN 800 MG TAB PO SCH (08:17)
[2022-07-09] MEDS: LANTUS PER UNIT CHARGE SQ SCH (08:17)
[2022-07-09] MEDS: MAGNESIUM OXIDE 400 MG TAB PO SCH (08:17)
[2022-07-09] MEDS: CHOLECALCIFEROL 1,000 UNITS 25 MCG TAB PO SCH (08:18)
[2022-07-09] MEDS: buPROPion HCl 100 MG TABLET PO SCH (08:18)
[2022-07-09] MEDS: CLOPIDOGREL BISULFATE 75 MG TAB PO SCH (08:18)
[2022-07-09] MEDS: METOPROLOL SUCC 25MG EXT REL TAB PO SCH (08:18)
[2022-07-09] MEDS: SERTRALINE HCL 100 MG TABLET PO SCH (08:18)
[2022-07-09] MEDS: SENNA 8.6 MG TAB PO SCH (08:18)
[2022-07-09] MEDS: lisinopril 20 MG TAB PO SCH (08:18)
[2022-07-09] MEDS: LIDOCAINE 5% 1 PATCH TD SCH (08:19)
[2022-07-09] MEDS: LORazepam 0.5 MG TAB PO PRN ×2 (08:27→20:06)
--- NOTE | 2022-07-09 08:31 | Hospitalist Progress Note ---
Date of Service July 09, 2022 Assessment & Plan (1) Fall: (2) Ambulatory dysfunction: (3) Hypertension: (4) DM type 2 (diabetes mellitus, type 2): (5) Dyslipidemia: (6) Depression: (7) Anxiety: (8) 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: (9) History of pulmonary embolism: (10) History of CVA (cerebrovascular accident): Plan 67-year-old female presented to the [facility] ED status post mechanical fall. Additional PMH H includes hypertension, hyperlipidemia, insulin-dependent diabetic, TONE, depression and anxiety. Patient being followed by Dr. Gooden for spiral humeral fracture current treatment is splint. Pain control. Patient on Plavix status post PE in 2012. Patient had 2 strokes in the . Fall: Ambulatory dysfunction: Baseline ambulates with a cane Multiple fractures in the past including spiral humerus fracture and rib fractures Head CT: Negative Cervical Spine CT: Negative for fracture; + osteopenia and spondylitic change Humeral x-ray: subacute displaced fracture, shifted Ortho Consult placed: ED physician spoke with Dr. Gooden Per orthopedics - Looks to be healing in the brace. There is some slight malalignment, which is certainly acceptable. It would be best for her to be head of the bed up as much as possible to help keep this aligned and help with pain. Pain control: Was on oral Dilaudid 2 to 4 mg p.o. every 6 as outpatient; received Dilaudid IV 0.5 mg x 3 while in ED; will transition to oral oxycodone Opioid use may be contributing factor to increased falls Lidocaine patch ordered ECHO ordered last ECHO 2016 EF 65-69% and mild grade I diastolic dysfx PT/OT Plan to DC to rehab - Encompass L hip pain, intertrochanteric fracture within the proximal left femur Pt seen by orthopedics and MRI of L hip obtained - showing Intertrochanteric fracture of the proximal left femur Now s/p surg. repair w/ Dr. Gooden (07/05) Follow up in 2-3 weeks out from surgery date. She is weightbearing as tolerated. Needs to use [place] brace at all times. Any orthopedic questions can be directed at [phone] - Dr. Gooden. Chest pain - noted left sided cp this AM (07/07) - reports she was pulled up in bed (by ?) - CP reproducible on palpation -ECG, CXR unremarkable -obtained chest CT to r/o rib fracture or any acute pathology - FINDINGS: No thyroid nodule identified. No lymphadenopathy. The heart is normal in size without pericardial effusion. Mild coronary artery calcifications. No thoracic aortic aneurysm. Trace pleural effusions. No pneumothorax or overt pulmonary edema. Subsegmental dependent bibasilar consolidation. 5 mm nodule of the right upper lobe on image 119 appears new from the prior study and is likely infectious or inflammatory. Central airways are patent. Mild splenomegaly, 13 cm. No acute process of the imaged upper abdomen. Subacute appearing comminuted, displaced and angulated proximal to mid left diaphyseal fracture again noted deep tissue edema is likely secondary to expected postoperative change. Healing subacute nondisplaced anterior right-sided rib fractures re-demonstrated. Mild cortical angulation of a few anterior left-sided ribs are unchanged and may represent subacute or chronic nondisplaced fractures. Healed chronic mid sternal fracture. IMPRESSION: 1. Trace pleural effusions with subsegmental bibasilar atelectasis. 2. Healing subacute comminuted, displaced and angulated left humeral diaphyseal fracture is partially imaged. 3. Subacute nondisplaced anterior right-sided rib fractures are also again noted. 07/08 -patient appears comfortable this morning, no reports of chest pain Hypertension: Takes lisinopril, metoprolol; continue Creatinine: 0.78 Continue to monitor BP HLD: takes rosuvastatin; continue IDDM, type 2: Peripheral neuropathy: Takes Lantus 20 units SQ QAM/PM; continue Lantus with adjustments as outlined Takes Novolog 8units SQ before dinner Takes Trulicity weekly; hold while here: last dose: Takes Gabapentin 800 mg daily we will increase to 3 times daily for neuropathy; Last A1c 03/03: 6.8 Consult Glycemic Pharmacy History of PE: History of CVA: PE 2012, CVA x2 about 15 or 20 years ago Takes Plavix; hold for now until cleared by Ortho Patient was on Coumadin for PE transitioned to Plavix due to increased fall risk Takes Rosuvastatin; continue Plavix resumed Obstructive Sleep Apnea: Becomes hypoxic when sleeping Uses CPAP at home nightly; to bring in home CPAP Per and staff, patient is not very compliant with CPAP Depression and Anxiety: euthemic mood: Takes buproprion and sertraline; continue Hypothyroidism: On Synthroid; continue Disposition: PCP: Dr. Rozick Code Status: Full code VTE Prophylaxis: Teds and SCDs, plavix resumed Admission and Anticipated Discharge Date Admission Date: July 04, 2022 Subjective Pt seen in follow up of fall, hx of humeral fx, now w/ L hip fx Underwent surg. repair of L hip w/ Dr. Gooden Pt is laying in bed, awake and aware. in NAD No shortness of breath, palpitations. No abd.pain, n/v Reports some pain in left hip. Also reports she worked w/ PT present at the bedside. Review of Systems Review of Systems: All systems reviewed & are unremarkable except as noted in Subjective Physical Exam Physical Exam: General: elderly F, WD/WN, in NAD Lungs: CTAB, no wheezing Cardiac: normal S1/S2, no murmur Abd: ND, NT, soft MSK: L arm in a sling, good anesthesia associate strength of the L hand, R toe wound is healing well, surg. dressings over L hip Neuro/Psych: AAOx3, normal affect, answering appropriately, speech fluent, moving extremities Skin: warm, dry Results & Data Results & Data ([facility]) Vital Signs (Past 12 Hours) Vital Signs Temp Pulse Pulse Resp BP Pulse Ox O2 Del Method 07/09/22 07:49 36.7 C 74 19 160/79 H 99 Nasal Cannula 07/09/22 07:17 81 07/09/22 03:51 37.4 C 89 16 155/72 H 91 Room Air 07/09/22 00:54 92 H 07/08/22 23:17 36.8 C 89 18 147/65 H 97 Nasal Cannula O2 Flow Rate 07/09/22 07:49 2 07/09/22 07:17 07/09/22 03:51 07/09/22 00:54 07/08/22 23:17 2 Laboratory Results 07/09/22 07/09/22 07/09/22 Range/Units 07:38 06:43 06:43 WBC 5.51 (4.8-10.8) K/ul RBC 3.21 L (3.93-5.22) M/uL Hgb 9.8 L (12.0-16.0) g/dl Hct 29.6 L (34.1-44.9) % MCV 92.2 (80.0-100.0) fL MCH 30.5 (25.0-34.0) pg MCHC 33.1 (32.0-36.0) g/dL RDW Std Deviation 41.2 (36.4-46.3) fL RDW Coeff of Dia 12.2 (11.5-14.5) % Plt Count 120 L (130-400) K/uL MPV 10.5 (9.4-12.3) fL Sodium 140 (136-145) mmol/L Potassium 3.8 (3.5-5.1) mmol/L Chloride 107 (98-107) mmol/L Carbon Dioxide 27 (21-32) mmol/L Anion Gap 6 (3-11) BUN 13 (6-23) mg/dl Creatinine 0.51 L (0.6-1.2) mg/dl Est Cr Clr Drug Dosing Not Reportable Est GFR ( Amer) 116.1 ml/min Est GFR (Non-Af Amer) 100.2 ml/min BUN/Creatinine Ratio 25.5 H (10-20) Glucose 95 (70-99(Fasting)) mg/dl POC Glucose 96 (70-99) mg/dl Calcium 8.6 (8.5-10.1) mg/dl Phosphorus 3.1 (2.5-4.9) mg/dl Magnesium 1.9 (1.7-2.4) mg/dl Crossmatch 07/08/22 07/08/22 07/08/22 Range/Units 20:18 16:38 11:59 WBC (4.8-10.8) K/ul RBC (3.93-5.22) M/uL Hgb (12.0-16.0) g/dl Hct (34.1-44.9) % MCV (80.0-100.0) fL MCH (25.0-34.0) pg MCHC (32.0-36.0) g/dL RDW Std Deviation (36.4-46.3) fL RDW Coeff of Dia (11.5-14.5) % Plt Count (130-400) K/uL MPV (9.4-12.3) fL Sodium (136-145) mmol/L Potassium (3.5-5.1) mmol/L Chloride (98-107) mmol/L Carbon Dioxide (21-32) mmol/L Anion Gap (3-11) BUN (6-23) mg/dl Creatinine (0.6-1.2) mg/dl Est Cr Clr Drug Dosing Est GFR ( Amer) ml/min Est GFR (Non-Af Amer) ml/min BUN/Creatinine Ratio (10-20) Glucose (70-99(Fasting)) mg/dl POC Glucose 155 H 146 H 139 H (70-99) mg/dl Calcium (8.5-10.1) mg/dl Phosphorus (2.5-4.9) mg/dl Magnesium (1.7-2.4) mg/dl Crossmatch 07/05/22 Range/Units 13:58 WBC (4.8-10.8) K/ul RBC (3.93-5.22) M/uL Hgb (12.0-16.0) g/dl Hct (34.1-44.9) % MCV (80.0-100.0) fL MCH (25.0-34.0) pg MCHC (32.0-36.0) g/dL RDW Std Deviation (36.4-46.3) fL RDW Coeff of Dia (11.5-14.5) % Plt Count (130-400) K/uL MPV (9.4-12.3) fL Sodium (136-145) mmol/L Potassium (3.5-5.1) mmol/L Chloride (98-107) mmol/L Carbon Dioxide (21-32) mmol/L Anion Gap (3-11) BUN (6-23) mg/dl Creatinine (0.6-1.2) mg/dl Est Cr Clr Drug Dosing Est GFR ( Amer) ml/min Est GFR (Non-Af Amer) ml/min BUN/Creatinine Ratio (10-20) Glucose (70-99(Fasting)) mg/dl POC Glucose (70-99) mg/dl Calcium (8.5-10.1) mg/dl Phosphorus (2.5-4.9) mg/dl Magnesium (1.7-2.4) mg/dl Crossmatch See Detail Medications Administered Current Inpatient Medications Acetaminophen (Acetaminophen 325 Mg Tab) 650 mg PO Q4H PRN PRN Reason: Pain or Fever Stop: 08/03/22 15:50 Last Admin: 07/09/22 05:52 Dose: 650 mg Al Hydrox/Mg Hydrox/Simethicone (Aluminum/Magnesium Susp 30 Ml Udc) 15 ml PO Q4H PRN PRN Reason: Dyspepsia Stop: 08/03/22 15:50 Bupropion HCl (Bupropion Hcl 100 Mg Tablet) 150 mg PO QAM [facility] Stop: 08/04/22 08:59 Last Admin: 07/09/22 08:18 Dose: 150 mg Clopidogrel Bisulfate (Clopidogrel Bisulfate 75 Mg Tab) 75 mg PO DAILY [facility] Stop: 08/04/22 08:59 Last Admin: 07/09/22 08:18 Dose: 75 mg Dextrose (Dextrose 50% 50 Ml Syringe) 25 - 50 ml IV UD PRN; Protocol PRN Reason: Hypoglycemia Protocol Stop: 08/03/22 12:31 Docusate Sodium (Docusate Sodium 100 Mg Cap) 100 mg PO BID PRN PRN Reason: Constipation Stop: 08/03/22 14:05 Gabapentin (Gabapentin 800 Mg Tab) 800 mg PO DAILY [facility] Stop: 08/06/22 08:59 Last Admin: 07/09/22 08:17 Dose: 800 mg Glucagon (Glucagon For Inj 1 Mg Vial) 1 mg SQ UD PRN; Protocol PRN Reason: Hypoglycemia Protocol Stop: 08/03/22 12:31 Glucose (Glucose 40% Gel 15 Gm Tube) 15 - 30 gm PO UD PRN; Protocol PRN Reason: Hypoglycemia Protocol Stop: 08/03/22 12:31 Glucose (Glucose 10 Tab/Tube) 4 - 8 tab PO UD PRN; Protocol PRN Reason: Hypoglycemia Treatment Stop: 08/03/22 12:31 Insulin Aspart (Insulin Aspart Per Unit) 0 units SC ACHS [facility] Stop: 08/03/22 14:29 Last Admin: 07/09/22 08:15 Dose: 2 units Insulin Glargine (Lantus Per Unit Charge) 10 units SQ BID [facility]; Protocol Stop: 08/05/22 08:59 Last Admin: 07/09/22 08:17 Dose: 10 units Levothyroxine Sodium (Levothyroxine Sodium 125 Mcg Tablet) 125 mcg PO DAILYBB [facility] Stop: 08/04/22 06:29 Last Admin: 07/09/22 05:52 Dose: 125 mcg Lidocaine (Lidocaine 5% 1 Patch) 1 patch TD QAM [facility] Stop: 08/03/22 15:50 Last Admin: 07/09/22 08:19 Dose: 1 patch Lisinopril (Lisinopril 20 Mg Tab) 20 mg PO QAM [facility] Stop: 08/04/22 08:59 Last Admin: 07/09/22 08:18 Dose: 20 mg Lorazepam (Lorazepam 0.5 Mg Tab) 0.5 mg PO TID PRN PRN Reason: Anxiety Stop: 08/04/22 00:03 Last Admin: 07/09/22 08:27 Dose: 0.5 mg Magnesium Hydroxide (Magnesium Hydroxide Susp 30 Ml Udc) 30 ml PO Q12H PRN PRN Reason: Constipation Stop: 08/03/22 15:50 Magnesium Oxide (Magnesium Oxide 400 Mg Tab) 400 mg PO [facility] Stop: 08/05/22 08:59 Last Admin: 07/09/22 08:17 Dose: 400 mg Metoprolol Succinate (Metoprolol Succ 25mg Ext Rel Tab) 25 mg PO DAILY [facility] Stop: 08/04/22 08:59 Last Admin: 07/09/22 08:18 Dose: 25 mg Miconazole Nitrate (Miconazole Nitrate Powder 43 Gm) 1 appln EXT PRN PRN PRN Reason: Affected Skin Folds Stop: 08/04/22 15:39 Miscellaneous (Carbohydrates For Hypoglycemia ) 15 - 30 gm PO UD PRN PRN Reason: Hypoglycemia Protocol Stop: 08/03/22 12:31 Miscellaneous (Remove Lidoderm Patch) 1 each N/A DAILY@2100 [facility] Stop: 08/03/22 22:59 Last Admin: 07/08/22 20:19 Dose: 1 each Miscellaneous Information (Pharmacy Glycemic Mgmt Consult) 1 each N/A UD PRN PRN Reason: Consult Stop: 08/03/22 12:31 Ondansetron HCl (Ondansetron 4 Mg Od Tab) 4 mg PO Q6H PRN PRN Reason: Nausea And Vomiting Stop: 08/03/22 14:04 Ondansetron HCl (Ondansetron Inj 2 Mg/Ml 2 Ml Vial) 4 mg IV Q6H PRN PRN Reason: Nausea Stop: 08/03/22 15:50 Oxycodone HCl (Oxycodone Hcl Ir 5 Mg Tab (Immediate Release)) 5 mg PO Q6H PRN PRN Reason: Pain Stop: 07/18/22 12:29 Last Admin: 07/07/22 05:12 Dose: 5 mg Polyethylene Glycol (Polyethylene (Miralax) 17 Gm Pack) 17 gm PO DAILY PRN PRN Reason: Constipation Stop: 08/03/22 15:50 Rosuvastatin Calcium (Rosuvastatin Calcium 20 Mg Tab) 20 mg PO DAILY [facility] Stop: 08/04/22 08:59 Last Admin: 07/09/22 08:17 Dose: 20 mg Sennosides (Senna 8.6 Mg Tab) 8.6 mg PO QAM [facility] Stop: 08/05/22 16:14 Last Admin: 07/09/22 08:18 Dose: Not Given Sertraline HCl (Sertraline Hcl 100 Mg Tablet) 200 mg PO DAILY [facility] Stop: 08/04/22 08:59 Last Admin: 07/09/22 08:18 Dose: 200 mg Sodium Chloride (Sodium Chloride 0.65% Na Soln 45 Ml ([place])) 2 sprays NA BID PRN PRN Reason: Nasal Congestion Stop: 08/08/22 06:19 Last Admin: 07/09/22 08:15 Dose: 2 sprays Tramadol HCl (Tramadol Hcl 50 Mg Tablet) 25 mg PO Q4H PRN PRN Reason: Pain Stop: 08/06/22 17:38 Last Admin: 07/08/22 17:55 Dose: 25 mg Vitamin D (Cholecalciferol 1,000 Units 25 Mcg Tab) 2,000 units PO QAM [facility] Stop: 08/06/22 08:59 Last Admin: 07/09/22 08:18 Dose: 2,000 units (1) DM type 2 (diabetes mellitus, type 2) Diabetes mellitus complication status: without complication Diabetes mellitus fci insulin use: with fci use Qualified Code(s): E11.9 - Type 2 diabetes mellitus without complications; 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
--- NOTE | 2022-07-09 09:11 | Progress Notes ---
DATE OF SERVICE: 07/09/2022 SUBJECTIVE: A 67-year-old white female now postop day 4 from IM nailing of left intertrochanteric fr acture and continued conservative treatment of humerus fracture. She seems to be getting a little bi t better. Continued to complain of pain, but seems to be improving. No new complaints. OBJECTIVE: VITAL SIGNS: Temperature 36.7. Vital signs are stable. EXTREMITIES: Examination of left hip reveals the leg to be well aligned. Dressings are clean, dry, and intact. She is neurologically intact. Thigh is soft and supple. Examination of the left arm reveals a fracture brace to be in place. The fracture appears to be heal ing. No gross motion at the fracture site. She is neurologically intact. ASSESSMENT: A 67-year-old white female with multiple medical comorbidities. 1. Postoperative day #4 from IM nailing of left intertrochanteric fracture, doing reasonably well. 2. A 4-1/2 weeks out from a left humeral diaphyseal fracture, healing. PLAN: She can continue weightbearing as tolerated. Fracture brace left arm along with a sling. Rout ine wound care. DVT prophylaxis includes thigh-high TEDs, SCDs and back on Plavix. She orthop edic followup in about 2 weeks. She is okay for discharge any time orthopedically. Any orthopedic q uestions can be directed to me at [phone]. Job ID: [id number]
[2022-07-09] MEDS ORDERED: LANTUS PER UNIT CHARGE SQ SCH (21:00)
[2022-07-09] MEDS: traMADol HCL 50 MG TABLET PO PRN (22:31)
[2022-07-10] MEDS: ACETAMINOPHEN 325 MG TAB PO PRN ×4 (00:28→15:38)
[2022-07-10 05:47] LABS: Hematocrit (blood only) 30.3 % (34.1-44.9); Hemoglobin 10.5 g/dl (12.0-16.0); Mean Corpuscular Hgb Conc 34.7 g/dL (32.0-36.0); Mean Corpuscular Volume 89.4 fL (80.0-100.0); Platelet Count 140 K/uL (130-400); RDW Standard Deviation 38.8 fL (36.4-46.3); Red Blood Count 3.39 M/uL (3.93-5.22); White Blood Count 5.96 K/ul (4.8-10.8)
[2022-07-10] MEDS: LEVOTHYROXINE SODIUM 125 MCG TABLET PO SCH (06:02)
[2022-07-10 06:15] LABS: Anion Gap 7 (3-11); BUN Creatinine Ratio 23.9 (10-20); Blood Urea Nitrogen 11 mg/dl (6-23); Calcium 8.8 mg/dl (8.5-10.1); Carbon Dioxide 26 mmol/L (21-32); Chloride 107 mmol/L (98-107); Est GFR (African American) 120.1 ml/min; Est GFR (Non-African American) 103.7 ml/min; Glucose 90 mg/dl (70-99(Fasting)); Potassium 3.6 mmol/L (3.5-5.1); Sodium 140 mmol/L (136-145)
[2022-07-10 07:59] VITALS: TEMP 98.2
[2022-07-10] MEDS: INSULIN ASPART PER UNIT SC SCH ×3 (08:29→17:18)
[2022-07-10] MEDS: METOPROLOL SUCC 25MG EXT REL TAB PO SCH (08:35)
[2022-07-10] MEDS: MAGNESIUM OXIDE 400 MG TAB PO SCH (08:36)
[2022-07-10] MEDS: buPROPion HCl 100 MG TABLET PO SCH (08:36)
[2022-07-10] MEDS: CHOLECALCIFEROL 1,000 UNITS 25 MCG TAB PO SCH (08:36)
[2022-07-10] MEDS: SERTRALINE HCL 100 MG TABLET PO SCH (08:36)
[2022-07-10] MEDS: lisinopril 20 MG TAB PO SCH (08:36)
[2022-07-10] MEDS: GABAPENTIN 800 MG TAB PO SCH (08:36)
[2022-07-10] MEDS: CLOPIDOGREL BISULFATE 75 MG TAB PO SCH (08:36)
[2022-07-10] MEDS: LIDOCAINE 5% 1 PATCH TD SCH (08:37)
[2022-07-10] MEDS: ROSUVASTATIN CALCIUM 20 MG TAB PO SCH (08:37)
[2022-07-10] MEDS: SENNA 8.6 MG TAB PO SCH (08:37)
--- NOTE | 2022-07-10 08:40 | Hospitalist Progress Note ---
Date of Service July 10, 2022 Assessment & Plan (1) Fall: (2) Ambulatory dysfunction: (3) Hypertension: (4) DM type 2 (diabetes mellitus, type 2): (5) Dyslipidemia: (6) Depression: (7) Anxiety: (8) 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: (9) History of pulmonary embolism: (10) History of CVA (cerebrovascular accident): Plan 67-year-old female presented to the [facility] ED status post mechanical fall. Additional PMH H includes hypertension, hyperlipidemia, insulin-dependent diabetic, TONE, depression and anxiety. Patient being followed by Dr. Gooden for spiral humeral fracture current treatment is splint. Pain control. Patient on Plavix status post PE in 2012. Patient had 2 strokes in the . Fall: Ambulatory dysfunction: Baseline ambulates with a cane Multiple fractures in the past including spiral humerus fracture and rib fractures Head CT: Negative Cervical Spine CT: Negative for fracture; + osteopenia and spondylitic change Humeral x-ray: subacute displaced fracture, shifted Ortho Consult placed: ED physician spoke with Dr. Gooden Per orthopedics - Looks to be healing in the brace. There is some slight malalignment, which is certainly acceptable. It would be best for her to be head of the bed up as much as possible to help keep this aligned and help with pain. Pain control: Was on oral Dilaudid 2 to 4 mg p.o. every 6 as outpatient; received Dilaudid IV 0.5 mg x 3 while in ED; will transition to oral oxycodone Opioid use may be contributing factor to increased falls Lidocaine patch ordered ECHO ordered last ECHO 2016 EF 65-69% and mild grade I diastolic dysfx PT/OT Plan to DC to rehab - Encompass L hip pain, intertrochanteric fracture within the proximal left femur Pt seen by orthopedics and MRI of L hip obtained - showing Intertrochanteric fracture of the proximal left femur Now s/p surg. repair w/ Dr. Gooden (07/05) Follow up in 2-3 weeks out from surgery date. She is weightbearing as tolerated. Needs to use [place]e brace at all times. Any orthopedic questions can be directed at [phone] - Dr. Gooden. Chest pain - noted left sided cp this AM (07/07) - reports she was pulled up in bed (by ?) - CP reproducible on palpation -ECG, CXR unremarkable -obtained chest CT to r/o rib fracture or any acute pathology - FINDINGS: No thyroid nodule identified. No lymphadenopathy. The heart is normal in size without pericardial effusion. Mild coronary artery calcifications. No thoracic aortic aneurysm. Trace pleural effusions. No pneumothorax or overt pulmonary edema. Subsegmental dependent bibasilar consolidation. 5 mm nodule of the right upper lobe on image 119 appears new from the prior study and is likely infectious or inflammatory. Central airways are patent. Mild splenomegaly, 13 cm. No acute process of the imaged upper abdomen. Subacute appearing comminuted, displaced and angulated proximal to mid left diaphyseal fracture again noted deep tissue edema is likely secondary to expected postoperative change. Healing subacute nondisplaced anterior right-sided rib fractures re-demonstrated. Mild cortical angulation of a few anterior left-sided ribs are unchanged and may represent subacute or chronic nondisplaced fractures. Healed chronic mid sternal fracture. IMPRESSION: 1. Trace pleural effusions with subsegmental bibasilar atelectasis. 2. Healing subacute comminuted, displaced and angulated left humeral diaphyseal fracture is partially imaged. 3. Subacute nondisplaced anterior right-sided rib fractures are also again noted. 07/08 -patient appears comfortable this morning, no reports of chest pain Hypertension: Takes lisinopril, metoprolol; continue Creatinine: 0.78 Continue to monitor BP HLD: takes rosuvastatin; continue IDDM, type 2: Peripheral neuropathy: Takes Lantus 20 units SQ QAM/PM; continue Lantus with adjustments as outlined Takes Novolog 8units SQ before dinner Takes Trulicity weekly; hold while here: last dose: Takes Gabapentin 800 mg daily we will increase to 3 times daily for neuropathy; Last A1c 03/03: 6.8 Consult Glycemic Pharmacy History of PE: History of CVA: PE 2012, CVA x2 about 15 or 20 years ago Takes Plavix; hold for now until cleared by Ortho Patient was on Coumadin for PE transitioned to Plavix due to increased fall risk Takes Rosuvastatin; continue Plavix resumed Obstructive Sleep Apnea: Becomes hypoxic when sleeping Uses CPAP at home nightly; to bring in home CPAP Per and staff, patient is not very compliant with CPAP Depression and Anxiety: euthemic mood: Takes buproprion and sertraline; continue Hypothyroidism: On Synthroid; continue Disposition: PCP: Dr. Rozick Code Status: Full code VTE Prophylaxis: Teds and SCDs, plavix resumed Admission and Anticipated Discharge Date Admission Date: July 04, 2022 Subjective Pt seen in follow up of fall, hx of humeral fx, now w/ L hip fx Underwent surg. repair of L hip w/ Dr. Gooden Pt is laying in bed, awake and aware. in NAD No shortness of breath, palpitations. No abd.pain, n/v Reports some pain in left hip. Also reports she worked w/ PT yesterday present at the bedside yesterday and updated. 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 dressings over L hip Neuro/Psych: AAOx3, normal affect, answering appropriately, speech fluent, moving extremities Skin: warm, dry Results & Data Results & Data ([facility]) Vital Signs (Past 12 Hours) Vital Signs Temp Pulse Pulse Resp BP Pulse Ox O2 Del Method 07/10/22 08:02 Room Air 07/10/22 07:57 36.8 C 80 19 163/88 H 94 Room Air 07/10/22 07:10 79 07/10/22 03:40 36.6 C 79 20 165/77 H 93 Room Air 07/10/22 00:34 90 07/09/22 23:27 36.9 C 88 16 160/75 H 91 Room Air Laboratory Results 07/10/22 07/10/22 07/10/22 Range/Units 07:46 05:13 05:13 WBC 5.96 (4.8-10.8) K/ul RBC 3.39 L (3.93-5.22) M/uL Hgb 10.5 L (12.0-16.0) g/dl Hct 30.3 L (34.1-44.9) % MCV 89.4 (80.0-100.0) fL MCH 31.0 (25.0-34.0) pg MCHC 34.7 (32.0-36.0) g/dL RDW Std Deviation 38.8 (36.4-46.3) fL RDW Coeff of Dia 12.0 (11.5-14.5) % Plt Count 140 (130-400) K/uL MPV 10.0 (9.4-12.3) fL Sodium 140 (136-145) mmol/L Potassium 3.6 (3.5-5.1) mmol/L Chloride 107 (98-107) mmol/L Carbon Dioxide 26 (21-32) mmol/L Anion Gap 7 (3-11) BUN 11 (6-23) mg/dl Creatinine 0.46 L (0.6-1.2) mg/dl Est Cr Clr Drug Dosing Not Reportable Est GFR ( Amer) 120.1 ml/min Est GFR (Non-Af Amer) 103.7 ml/min BUN/Creatinine Ratio 23.9 H (10-20) Glucose 90 (70-99(Fasting)) mg/dl POC Glucose 96 (70-99) mg/dl Calcium 8.8 (8.5-10.1) mg/dl 07/09/22 07/09/22 07/09/22 Range/Units 20:15 16:16 11:25 WBC (4.8-10.8) K/ul RBC (3.93-5.22) M/uL Hgb (12.0-16.0) g/dl Hct (34.1-44.9) % MCV (80.0-100.0) fL MCH (25.0-34.0) pg MCHC (32.0-36.0) g/dL RDW Std Deviation (36.4-46.3) fL RDW Coeff of Dia (11.5-14.5) % Plt Count (130-400) K/uL MPV (9.4-12.3) fL Sodium (136-145) mmol/L Potassium (3.5-5.1) mmol/L Chloride (98-107) mmol/L Carbon Dioxide (21-32) mmol/L Anion Gap (3-11) BUN (6-23) mg/dl Creatinine (0.6-1.2) mg/dl Est Cr Clr Drug Dosing Est GFR ( Amer) ml/min Est GFR (Non-Af Amer) ml/min BUN/Creatinine Ratio (10-20) Glucose (70-99(Fasting)) mg/dl POC Glucose 148 H 242 H 208 H (70-99) mg/dl Calcium (8.5-10.1) mg/dl Medications Administered Current Inpatient Medications Acetaminophen (Acetaminophen 325 Mg Tab) 650 mg PO Q4H PRN PRN Reason: Pain or Fever Stop: 08/03/22 15:50 Last Admin: 07/10/22 06:02 Dose: 650 mg Al Hydrox/Mg Hydrox/Simethicone (Aluminum/Magnesium Susp 30 Ml Udc) 15 ml PO Q4H PRN PRN Reason: Dyspepsia Stop: 08/03/22 15:50 Bupropion HCl (Bupropion Hcl 100 Mg Tablet) 150 mg PO QAM [facility] Stop: 08/04/22 08:59 Last Admin: 07/10/22 08:36 Dose: 150 mg Clopidogrel Bisulfate (Clopidogrel Bisulfate 75 Mg Tab) 75 mg PO DAILY [facility] Stop: 08/04/22 08:59 Last Admin: 07/10/22 08:36 Dose: 75 mg Dextrose (Dextrose 50% 50 Ml Syringe) 25 - 50 ml IV UD PRN; Protocol PRN Reason: Hypoglycemia Protocol Stop: 08/03/22 12:31 Docusate Sodium (Docusate Sodium 100 Mg Cap) 100 mg PO BID PRN PRN Reason: Constipation Stop: 08/03/22 14:05 Gabapentin (Gabapentin 800 Mg Tab) 800 mg PO DAILY [facility] Stop: 08/06/22 08:59 Last Admin: 07/10/22 08:36 Dose: 800 mg Glucagon (Glucagon For Inj 1 Mg Vial) 1 mg SQ UD PRN; Protocol PRN Reason: Hypoglycemia Protocol Stop: 08/03/22 12:31 Glucose (Glucose 40% Gel 15 Gm Tube) 15 - 30 gm PO UD PRN; Protocol PRN Reason: Hypoglycemia Protocol Stop: 08/03/22 12:31 Glucose (Glucose 10 Tab/Tube) 4 - 8 tab PO UD PRN; Protocol PRN Reason: Hypoglycemia Treatment Stop: 08/03/22 12:31 Insulin Aspart (Insulin Aspart Per Unit) 0 units SC ACHS [facility] Stop: 08/03/22 14:29 Last Admin: 07/10/22 08:29 Dose: 2 units Insulin Glargine (Lantus Per Unit Charge) 8 units SQ DAILY ONE Stop: 07/10/22 09:01 Last Admin: 07/10/22 08:30 Dose: 8 units Levothyroxine Sodium (Levothyroxine Sodium 125 Mcg Tablet) 125 mcg PO DAILYBB [facility] Stop: 08/04/22 06:29 Last Admin: 07/10/22 06:02 Dose: 125 mcg Lidocaine (L[facility]ocaine 5% 1 Patch) [facility] [place]: 08/03/22 15:50 Last Admin: 07/10/22 08:37 Dose: 1 patch Lisinopril (Lisinopril 20 Mg Tab) [facility] Stop: 08/04/22 08:59 Last Admin: 07/10/22 08:36 Dose: 20 mg Lorazepam (Lorazepam 0.5 Mg Tab) 0.5 mg PO TID PRN PRN Reason: Anxiety Stop: 08/04/22 00:03 Last Admin: 07/09/22 20:06 Dose: 0.5 mg Magnesium Hydroxide (Magnesium Hydroxide Susp 30 Ml Udc) 30 ml PO Q12H PRN PRN Reason: Constipation Stop: 08/03/22 15:50 Magnesium Oxide (Magnesium Oxide 400 Mg Tab) 400 mg PO [facility] Stop: 08/05/22 08:59 Last Admin: 07/10/22 08:36 Dose: 400 mg Metoprolol Succinate (Metoprolol Succ 25mg Ext Rel Tab) 25 mg PO DAILY [facility] Stop: 08/04/22 08:59 Last Admin: 07/10/22 08:35 Dose: 25 mg Miconazole Nitrate (Miconazole Nitrate Powder 43 Gm) 1 appln EXT PRN PRN PRN Reason: Affected Skin Folds Stop: 08/04/22 15:39 Miscellaneous (Carbohydrates For Hypoglycemia ) 15 - 30 gm PO UD PRN PRN Reason: Hypoglycemia Protocol Stop: 08/03/22 12:31 Miscellaneous (Remove Lidoderm Patch) 1 each N/A DAILY@2100 [facility] Stop: 08/03/22 22:59 Last Admin: 07/09/22 20:07 Dose: 1 each Miscellaneous Information (Pharmacy Glycemic Mgmt Consult) 1 each N/A UD PRN PRN Reason: Consult Stop: 08/03/22 12:31 Ondansetron HCl (Ondansetron 4 Mg Od Tab) 4 mg PO Q6H PRN PRN Reason: Nausea And Vomiting Stop: 08/03/22 14:04 Ondansetron HCl (Ondansetron Inj 2 Mg/Ml 2 Ml Vial) 4 mg IV Q6H PRN PRN Reason: Nausea Stop: 08/03/22 15:50 Oxycodone HCl (Oxycodone Hcl Ir 5 Mg Tab (Immediate Release)) 5 mg PO Q6H PRN PRN Reason: Pain Stop: 07/18/22 12:29 Last Admin: 07/07/22 05:12 Dose: 5 mg Polyethylene Glycol (Polyethylene (Miralax) 17 Gm Pack) 17 gm PO DAILY PRN PRN Reason: Constipation Stop: 08/03/22 15:50 Rosuvastatin Calcium (Rosuvastatin Calcium 20 Mg Tab) 20 mg PO DAILY [facility] Stop: 08/04/22 08:59 Last Admin: 07/10/22 08:37 Dose: 20 mg Sennosides (Senna 8.6 Mg Tab) 8.6 mg PO QAM [facility] Stop: 08/05/22 16:14 Last Admin: 07/10/22 08:37 Dose: 8.6 mg Sertraline HCl (Sertraline Hcl 100 Mg Tablet) 200 mg PO DAILY [facility] Stop: 08/04/22 08:59 Last Admin: 07/10/22 08:36 Dose: 200 mg Sodium Chloride (Sodium Chloride 0.65% Na Soln 45 Ml ([place])) 2 sprays NA BID PRN PRN Reason: Nasal Congestion Stop: 08/08/22 06:19 Last Admin: 07/09/22 08:15 Dose: 2 sprays Tramadol HCl (Tramadol Hcl 50 Mg Tablet) 25 mg PO Q4H PRN PRN Reason: Pain Stop: 08/06/22 17:38 Last Admin: 07/09/22 22:31 Dose: 25 mg Vitamin D (Cholecalciferol 1,000 Units 25 Mcg Tab) 2,000 units PO QAM [facility] Stop: 08/06/22 08:59 Last Admin: 07/10/22 08:36 Dose: 2,000 units (1) DM type 2 (diabetes mellitus, type 2) Diabetes mellitus complication status: without complication Diabetes mellitus group home insulin use: with long term care social worker use Qualified Code(s): E11.9 - Type 2 diabetes mellitus without complications; Z79.4 - [facility] (current) use of insulin
[2022-07-10] MEDS ORDERED: LANTUS PER UNIT CHARGE SQ ONE (09:00)
[2022-07-10] MEDS: traMADol HCL 50 MG TABLET PO PRN (09:10)
--- NOTE | 2022-07-10 09:55 | Pharmacy Report ---
Pharmacy Glycemic Short Note 2 - Date of Service July 10, 2022 - Glycemic Short BSG Results (Last 24 hours): 07/09/22 07/09/22 07/09/22 11:25 16:16 20:15 Glucose POC Glucose 208 H 242 H 148 H 07/10/22 07/10/22 05:13 07:46 Glucose 90 POC Glucose 96 OUTPATIENT ANTIDIABETIC REGIMEN: * Lantus 20 units SC BID * Novolog 8 units SC with dinner * Trulicity 4.5 mg SC weekly * HbA1c = 6.3% (05/26/22) ASSESSMENT: 07/09: * Stressors stable * AM fasting values downtrending, reduced AM lantus dose to 8u * Mealtime values above goal, will tighten carb coverage/correction factor 07/07: * Patient received 33 units of insulin yesterday, 20 units basal + 13 units bolus. BSGs were: [phone] mg/dL. * Fasting BSG improved to 114 mg/dL this morning. Will not change basal as believe AM fasting yesterday was falsely elevated. * BSGs dropped significantly following Novolog yesterday so will loosen Novolog parameters today. 07/05: * Patient NPO today while waiting on MRI results - subsequently revealed nondisplaced intertrochanteric fracture of left femur * Plan is for OR today * BSGs reasonably controlled since time of admission with basal insulin only * Patient has well-controlled T2DM based on A1c so home regimen is likely too aggressive while inpatient given differences in diet * Will utilize scaled Lantus today to allow for increased/decreased dose based on BSG 07/04: * Patient admitted with fall, hip pain. Currently ordered a diet. Ortho consulted * BSG on labs this morning 219 mg/dL. * Home regimen more Basal heavy, will aim for more 50:50 split while inpatient * Start with weight based stress of 2 novolog dosing, and scale for lantus PLAN FOR INPATIENT GLYCEMIC CONTROL: * Basal insulin * Lantus 8 units SC BID * Bolus insulin * NovoLog per scale ACHS or Q6hrs while NPO * Goal Range: Low 110 mg/dL - High 140 mg/dL * Correction Factor: 30 mg/dL/unit * Nutritional / Prandial insulin per carb ratio of 1 unit per 10 grams CHO consumed
[2022-07-10 16:45] VITALS: BP 166/97; PULSE 75; O2SAT 95
--- NOTE | 2022-07-10 17:11 | Discharge Summary ---
Date of Service July 10, 2022 Admission HPI Per Admitting Provider Ms. Viky Fine is a 67-year-old female who presented to the [facility] status post fall that occurred in her home this morning while she was working in her kitchen and lost her balance. She denies loss of consciousness at the time however remained on the floor for approximately 1 hour until her found her. She reports that she fell pretty hard on her left hip. She describes feeling pain in her left shoulder. The patient does deny hitting her head. She is on Plavix for history of PE in 2012. Patient has a recent hospital admission from May 26 until June 03 for nonhealing toe ulcer. Additional past medical history includes insulin-dependent diabetes type 2, hypertension, hyperlipidemia, depression, TONE (CPAP at bedtime), hypothyroidism, history of CVA and history of pulmonary embolism (on Plavix). She reports that she had a fall about one month ago and has been being followed by [facility] with Dr. Gooden for a spiral humeral fracture which appears on imaging, may have shifted. Orthopedics consult placed. She has been prescribed oral Dilaudid as an outpatient as has received IV Dilaudid here in the ED. Patient denies dizziness, chest pain, palpitations, abdominal pain, N/V/D. Pt reports having pain from previous rib fractures and also a headache. Pt reports LBM 07/03/22. No leukocytosis noted, lactic acid in ED 3.0, alk phos elevated at 222 other LFTs normal. Patient will be admitted for further evaluation and management. Please see A/P for further information. 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 Psych: AAOx3, normal affect Principal Diagnosis IM Nailing of Left Hip Fracture Left Humerus fracture - treatment with brace and sling. 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 dressings over L hip Neuro/Psych: AAOx3, normal affect, answering appropriately, speech fluent, moving extremities Skin: warm, dry Discharge Data Allergies Allergy/AdvReac Type Severity Reaction Status Date / Time adhesive Allergy Intermediate RASH Verified 06/01/22 16:49 Iodinated Contrast Media Allergy Intermediate burning Verified 01/27/22 19:38 and aching in veins latex Allergy Intermediate RASH Verified 06/01/22 16:49 Penicillins Allergy Intermediate n/v, rash Verified 06/01/22 16:49 hepatitis B virus vaccine Allergy Unknown Unknown Verified 06/01/22 16:49 Anesthetics - Amide Type - AdvReac Intermediate Vomiting Verified 06/01/22 16:49 Select A [Anesthetics - Amide Type] Anesthetics - Juju Type- AdvReac Intermediate Vomiting Verified 06/01/22 16:49 Parabens ketorolac AdvReac Intermediate ITCHING. Verified 01/27/22 19:38 tromethamine AdvReac Intermediate ITCHING. Verified 01/27/22 19:38 aspirin AdvReac Unknown CONTRAINDICATED---currently Verified 06/01/22 16:49 with gastric ulcer, per pt Consultations 07/04/22 11:41 ED Decision to Admit Stat 07/04/22 12:21 Consult Orthopedic Surgery Routine Procedures Performed Operation Date: 07/05/22 10:35 Actual Procedures p Left Trochanteric Nailing(Left) - Shukri Gooden MD Ordered Studies 07/04/22 07:24 CT abd pelvis IV con only Stat FINDINGS: Lower chest: Aortic valvular calcifications and mitral annular calcifications are noted. Liver: Unremarkable. No focal lesions are seen. Gallbladder and biliary tree: Patient is status post cholecystectomy. No intra- or extrahepatic biliary ductal dilation. Pancreas: Unremarkable, no focal lesions. Spleen: Mildly prominent spleen, unchanged. Adrenals: Unremarkable. Kidneys and ureters: Subcentimeter hypodensities are too small to characterize. Bladder: Unremarkable. Reproductive organs: Patient is status post hysterectomy. Bowel: Diverticulosis is seen without evidence of diverticulitis. The appendix is normal. Lymph nodes Retroperitoneal: Unremarkable. Pelvic: Unremarkable. Mesenteric: Unremarkable. Peritoneum: Normal. Vessels: Atherosclerotic calcifications are seen. Abdominal wall: Tiny fat-containing ventral hernia is seen. Bones: There is redemonstration of multiple compression deformities which are unchanged from prior exam. No acute fracture is seen. Partial visualization of old healed left rib fractures. IMPRESSION: 1. No acute abnormalities and in particular no evidence of acute fracture. Chronic vertebral body deformities are seen as above. 2. Diverticulosis without evidence of diverticulitis. CT cervical spine wo con Stat FINDINGS: Skeletal structures: The skeletal structures are osteopenic. There is no evidence of fracture or subluxation involving the cervical spine. Vertebral body height and alignment are maintained. There is straightening of the cervical lordosis. Anterior osteophytes are seen throughout. The odontoid process and lateral masses are intact. The atlantoaxial articulation is preserved noting productive degenerative change. The spinous processes appear intact. There is mild multilevel facet arthropathy. Intervertebral discs: There is moderate disc space narrowing at C5-C6 and C6-C7. Mild narrowing is seen at the remaining cervical levels. Central canal: Large posterior disc osteophyte complexes at C5-C6 and C6-C7 likely contribute to acquired compromise of the central canal. Soft tissues: The prevertebral and paraspinous soft tissues are within normal limits. There is atherosclerotic calcification of the carotid bulbs. Calvarium: The visualized calvarium at the skull base appears intact. Brain parenchyma: Partially visualized brain parenchyma at the skull base is within normal limits. Sinuses and mastoids: The visualized paranasal sinuses are clear. The mastoid air cells are well pneumatized. Lung apices: Clear as visualized. IMPRESSION: 1. There is no evidence of fracture or subluxation involving the cervical spine. 2. Osteopenia and spondylotic change as above. CT chest diagnostic w con Stat FINDINGS: Thyroid: Imaged portions of the thyroid gland are normal in size and attenuation. Thoracic aorta: There is moderate atherosclerotic calcification of the thoracic aorta, which is normal in caliber and demonstrates standard 3-vessel arch anatomy. No dissection is seen. Pulmonary vasculature: The pulmonary trunk is normal in caliber. There are no filling defects identified in the central pulmonary vessels to indicate pulmonary embolus. Note that this examination was not protocoled for evaluation of the pulmonary arteries. Heart: The heart is top normal in size and without pericardial effusion. Lungs and pleural spaces: There is no airspace consolidation, pleural effusion, or pneumothorax. The trachea and central airways are clear. Mediastinum: There is no mediastinal hematoma or lymphadenopathy. Rachel: Clear. Axillae: There is no axillary lymphadenopathy. Upper abdomen: The spleen is mildly enlarged, measuring 13.4 cm in length. The liver is steatotic. A small hiatal hernia is noted. See report of abdominal CT performed concurrently for detailed intra-abdominal findings. Skeletal structures: The skeletal structures are osteopenic. See below for discussion of the thoracic spine. No lytic or blastic bony lesions are seen. A comminuted subacute fracture with this plate fragments is partially visualized in the left humeral shaft. Soft tissue swelling is partially visualized in the left shoulder. There are subacute/healing right anterior rib fractures. There are chronic/healed left-sided rib fractures. There is chronic posttraumatic deformity of the sternum. No acute fracture is seen involving the bony thorax. THORACIC SPINE: There is no evidence of acute fracture or malalignment. There is a mild chronic superior endplate compression deformity of T11. Vertebral body height is otherwise maintained throughout the thoracic spine. Alignment is preserved. Anterior osteophytes are seen throughout. The transverse and spinous processes are intact. The disc spaces are preserved. There is no evidence of large disc herniation or high-grade central canal stenosis by CT. The paraspinous soft tissues are normal in appearance. IMPRESSION: 1. There is no acute posttraumatic intrathoracic abnormality. 2. There is no airspace consolidation, pleural effusion, or pneumothorax. 3. A subacute left humeral shaft fracture is partially visualized and there are subacute right anterior rib fractures. 4. There is no evidence of acute fracture or malalignment involving the thoracic spine. 5. Additional chronic fractures as above. 6. Hepatic steatosis and mild splenomegaly. 7. Additional findings as above. CT head/brain wo con Stat FINDINGS: Brain parenchyma: There is age-related involutional change noting mild subcortical and periventricular microangiopathic disease. There is no hemorrhage, mass effect, or evidence of acute territorial ischemia by CT criteria. Abernathy-white matter differentiation is preserved. No extra-axial fluid collection is seen. Ventricles, sulci, cisterns: Prominent secondary to involutional change. Intracranial vasculature: There is atherosclerotic calcification of the cavernous carotid arteries. Calvarium: The skeletal structures are osteopenic. No depressed calvarial fracture is identified. Sinuses and mastoids: The visualized paranasal sinuses are clear. The mastoid air cells are well pneumatized. Orbits: The bony orbits are grossly intact. There is evidence of bilateral ocular lens surgery. IMPRESSION: There is no hemorrhage, mass effect, or evidence of acute territorial ischemia by CT criteria. 07/04/22 07:25 CT lumbar spine w con Stat FINDINGS: Lower chest: Aortic valvular calcifications and mitral annular calcifications are noted. Liver: Unremarkable. No focal lesions are seen. Gallbladder and biliary tree: Patient is status post cholecystectomy. No intra- or extrahepatic biliary ductal dilation. Pancreas: Unremarkable, no focal lesions. Spleen: Mildly prominent spleen, unchanged. Adrenals: Unremarkable. Kidneys and ureters: Subcentimeter hypodensities are too small to characterize. Bladder: Unremarkable. Reproductive organs: Patient is status post hysterectomy. Bowel: Diverticulosis is seen without evidence of diverticulitis. The appendix is normal. Lymph nodes Retroperitoneal: Unremarkable. Pelvic: Unremarkable. Mesenteric: Unremarkable. Peritoneum: Normal. Vessels: Atherosclerotic calcifications are seen. Abdominal wall: Tiny fat-containing ventral hernia is seen. Bones: There is redemonstration of multiple compression deformities which are unchanged from prior exam. No acute fracture is seen. Partial visualization of old healed left rib fractures. IMPRESSION: 1. No acute abnormalities and in particular no evidence of acute fracture. Chronic vertebral body deformities are seen as above. 2. Diverticulosis without evidence of diverticulitis. CT thoracic spine w con Stat FINDINGS: Thyroid: Imaged portions of the thyroid gland are normal in size and attenuation. Thoracic aorta: There is moderate atherosclerotic calcification of the thoracic aorta, which is normal in caliber and demonstrates standard 3-vessel arch anatomy. No dissection is seen. Pulmonary vasculature: The pulmonary trunk is normal in caliber. There are no filling defects identified in the central pulmonary vessels to indicate pulmonary embolus. Note that this examination was not protocoled for evaluation of the pulmonary arteries. Heart: The heart is top normal in size and without pericardial effusion. Lungs and pleural spaces: There is no airspace consolidation, pleural effusion, or pneumothorax. The trachea and central airways are clear. Mediastinum: There is no mediastinal hematoma or lymphadenopathy. Rachel: Clear. Axillae: There is no axillary lymphadenopathy. Upper abdomen: The spleen is mildly enlarged, measuring 13.4 cm in length. The liver is steatotic. A small hiatal hernia is noted. See report of abdominal CT performed concurrently for detailed intra-abdominal findings. Skeletal structures: The skeletal structures are osteopenic. See below for discussion of the thoracic spine. No lytic or blastic bony lesions are seen. A comminuted subacute fracture with this plate fragments is partially visualized in the left humeral shaft. Soft tissue swelling is partially visualized in the left shoulder. There are subacute/healing right anterior rib fractures. There are chronic/healed left-sided rib fractures. There is chronic posttraumatic deformity of the sternum. No acute fracture is seen involving the bony thorax. THORACIC SPINE: There is no evidence of acute fracture or malalignment. There is a mild chronic superior endplate compression deformity of T11. Vertebral body height is otherwise maintained throughout the thoracic spine. Alignment is preserved. Anterior osteophytes are seen throughout. The transverse and spinous processes are intact. The disc spaces are preserved. There is no evidence of large disc herniation or high-grade central canal stenosis by CT. The paraspinous soft tissues are normal in appearance. IMPRESSION: 1. There is no acute posttraumatic intrathoracic abnormality. 2. There is no airspace consolidation, pleural effusion, or pneumothorax. 3. A subacute left humeral shaft fracture is partially visualized and there are subacute right anterior rib fractures. 4. There is no evidence of acute fracture or malalignment involving the thoracic spine. 5. Additional chronic fractures as above. 6. Hepatic steatosis and mild splenomegaly. 7. Additional findings as above. 07/05/22 FL hip LT 2-3V Routine 07/05/22 09:09 MR hip LT wo con Stat FINDINGS: Suboptimal evaluation due to the motion artifact. There is nondisplaced intertrochanteric fracture within the proximal left femur. The visualized pelvic bones and right hip are intact. No dislocation. There is soft tissue edema surrounding the left hip. IMPRESSION: Nondisplaced intertrochanteric fracture within the proximal left femur. 07/07/22 13:47 CT chest diagnostic wo con Routine FINDINGS: No thyroid nodule identified. No lymphadenopathy. The heart is normal in size without pericardial effusion. Mild coronary artery calcifications. No thoracic aortic aneurysm. Trace pleural effusions. No pneumothorax or overt pulmonary edema. Subsegmental dependent bibasilar consolidation. 5 mm nodule of the right upper lobe on image 119 appears new from the prior study and is likely infectious or inflammatory. Central airways are patent. Mild splenomegaly, 13 cm. No acute process of the imaged upper abdomen. Subacute appearing comminuted, displaced and angulated proximal to mid left diaphyseal fracture again noted deep tissue edema is likely secondary to expected postoperative change. Healing subacute nondisplaced anterior right-sided rib fractures re-demonstrated. Mild cortical angulation of a few anterior left-sided ribs are unchanged and may represent subacute or chronic nondisplaced fractures. Healed chronic mid sternal fracture. IMPRESSION: 1. Trace pleural effusions with subsegmental bibasilar atelectasis. 2. Healing subacute comminuted, displaced and angulated left humeral diaphyseal fracture is partially imaged. 3. Subacute nondisplaced anterior right-sided rib fractures are also again noted. XR humerus FINDINGS: A nonunited spiral fracture is seen which likely represents displacement of previously noted spiral fracture of the humerus. There is faint bony bridging seen. Soft tissue swelling is seen. IMPRESSION: Nonunited appearance of the spiral fracture of the humerus with some bony bridging compatible with interval early healing changes. Hospital Course (1) Fall: (2) Ambulatory dysfunction: (3) Hypertension: (4) DM type 2 (diabetes mellitus, type 2): (5) Dyslipidemia: (6) Depression: (7) Anxiety: (8) 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: (9) History of pulmonary embolism: (10) History of CVA (cerebrovascular accident): Plan 67-year-old female presented to the [facility] ED status post mechanical fall. Additional PMH H includes hypertension, hyperlipidemia, insulin-dependent diabetic, TONE, depression and anxiety. Patient being followed by Dr. Gooden for spiral humeral fracture current treatment is splint. Pain control. Patient on Plavix status post PE in 2012. Patient had 2 strokes in the . Fall: Ambulatory dysfunction: Baseline ambulates with a cane Multiple fractures in the past including spiral humerus fracture and rib fractures Head CT: Negative Cervical Spine CT: Negative for fracture; + osteopenia and spondylitic change Humeral x-ray: subacute displaced fracture, shifted Ortho Consult placed: ED physician spoke with Dr. Gooden Per orthopedics - Looks to be healing in the brace. There is some slight malalignment, which is certainly acceptable. It would be best for her to be head of the bed up as much as possible to help keep this aligned and help with pain. Pain control: Was on oral Dilaudid 2 to 4 mg p.o. every 6 as outpatient; received Dilaudid IV 0.5 mg x 3 while in ED; will transition to oral oxycodone Opioid use may be contributing factor to increased falls Lidocaine patch ordered ECHO ordered last ECHO 2016 EF 65-69% and mild grade I diastolic dysfx PT/OT Plan to DC to rehab - [facility] L hip pain, intertrochanteric fracture within the proximal left femur Pt seen by orthopedics and MRI of L hip obtained - showing Intertrochanteric fracture of the proximal left femur Now s/p surg. repair w/ Dr. Gooden (07/05) Follow up in 2 weeks out from surgery date. She is weightbearing as tolerated. Needs to use Briscoe brace at all times. Any orthopedic questions can be directed at [phone] - Dr. Gooden. For DVT prophylaxis -teds, SCDs, Plavix Chest pain - noted left sided cp this AM (07/07) - reports she was pulled up in bed (by ?) - CP reproducible on palpation -ECG, CXR unremarkable -obtained chest CT to r/o rib fracture or any acute pathology - FINDINGS: No thyroid nodule identified. No lymphadenopathy. The heart is normal in size without pericardial effusion. Mild coronary artery calcifications. No thoracic aortic aneurysm. Trace pleural effusions. No pneumothorax or overt pulmonary edema. Subsegmental dependent bibasilar consolidation. 5 mm nodule of the right upper lobe on image 119 appears new from the prior study and is likely infectious or inflammatory. Central airways are patent. Mild splenomegaly, 13 cm. No acute process of the imaged upper abdomen. Subacute appearing comminuted, displaced and angulated proximal to mid left diaphyseal f racture again noted deep tissue edema is likely secondary to expected postoperative change. Healing subacute nondisplaced anterior right-sided rib fractures re-demonstrated. Mild cortical angulation of a few anterior left-sided ribs are unchanged and may represent subacute or chronic nondisplaced fractures. Healed chronic mid sternal fracture. IMPRESSION: 1. Trace pleural effusions with subsegmental bibasilar atelectasis. 2. Healing subacute comminuted, displaced and angulated left humeral diaphyseal fracture is partially imaged. 3. Subacute nondisplaced anterior right-sided rib fractures are also again noted. 07/08 -patient appears comfortable this morning, no reports of chest pain Hypertension: Takes lisinopril, metoprolol; continue Creatinine: 0.78 Continue to monitor BP HLD: takes rosuvastatin; continue IDDM, type 2: Peripheral neuropathy: Takes Lantus 20 units SQ QAM/PM; continue Lantus with adjustments as outlined Takes Novolog 8units SQ before dinner Takes Trulicity weekly; hold while here: last dose: Last A1c 03/03: 6.8 % Consulted [facility] While inpatient, patient is currently on glargine 8 units twice daily, ACHS uses on average 4 units with meals History of PE: History of CVA: PE 2012, CVA x2 about 15 or 20 years ago Takes Plavix; hold for now until cleared by Ortho Patient was on Coumadin for PE transitioned to Plavix due to increased fall risk Takes Rosuvastatin; continue Plavix resumed Obstructive Sleep Apnea: Becomes hypoxic when sleeping Uses CPAP at home nightly; to bring in home CPAP Per and staff, patient is not very compliant with CPAP Depression and Anxiety: euthemic mood: Takes buproprion and sertraline; continue Hypothyroidism: On Synthroid; continue Disposition: PCP: Dr. Hilliard Code Status: Full code VTE Prophylaxis: Teds and SCDs, plavix resumed Total Time Total Time Spent Total Time Spent (In Minutes): 40 Discharge Plan Discharge Items Patient Disposition: Transfer Inpatient Rehab Fac Reason For Visit: FALL, HIP PAIN Discharge Diagnosis: IM Nailing of Left Hip Fracture Left Humerus fracture - treatment with brace and sling. Subacute Activity: Per Instructions section Activity Comment: Weightbear as tolerated left leg. Sling left arm. Elevate head of bed. Lifting: None Lifting Comment: No Lifiting left arm. Sling at all times Bathing: No limitations Weightbearing: Full weightbearing Non-emergency contact: Primary Care Provider and Surgeon Call non-emergency contact if: you have any medication questions and your symptoms worsen Follow-up/Referrals: Shukri Gooden MD [Physician] - (Orthopedic follow-up 2-3 weeks from surgery date.) Adria Hilliard MD [Primary Care Provider] - Diet: Carb Consistent or DM2 and Heart Healthy Diet Texture: Easy to Chew Addtl Attending Provider Instructions: Weight bear as tolerated left leg Sling and brace at all times left arm Head of bed elevated at all times to help with arm pain and alignment Addtl Ncr Operator Provider Instructions: Follow-up with your orthopedic surgeon, Dr. Gooden, in 2 weeks. Follow-up with the primary care physician. For pain, take Tylenol 1000 mg 3 times a day. For more severe pain use tramadol 25 mg every 4 hours as needed. If your pain is not controlled, you can use oxycodone, as prescribed. Make sure to take stool softener, such as senna or MiraLAX to prevent constipation. It is well-known that certain pain medications (such as oxycodone) can make you constipated. Pending Studies at Discharge: No Stand-Alone Forms: [facility] Skilled Items Patient informed of condition?: Yes DNR: No Discharge Level of Care: Acute rehab Communicable Disease: No Discharge Prognosis: Stable Lines: None Urinary Catheter: Yes Medications and DC Order Prescriptions: New tramadol 50 mg Tablet 25 mg PO Q4H PRN (Reason: pain) Qty: 10 0RF magnesium oxide 400 mg (241.3 mg magnesium) Tablet 400 mg PO QAM Qty: 5 0RF sennosides [Senokot] 8.6 mg Tablet 8.6 mg PO QAM Qty: 10 0RF cholecalciferol (vitamin D3) 25 mcg (1,000 unit) Capsule 2,000 unit PO QAM Qty: 14 0RF oxycodone 5 mg Tablet 5 mg PO Q6H PRN (Reason: severe pain) Qty: 3 0RF Continued lisinopril 20 mg Tablet 20 mg PO QAM Qty: 0 gabapentin 800 mg Tablet 800 mg PO DAILY Qty: 0 docusate sodium 100 mg Tablet 100 mg PO BID PRN (Reason: Constipation) bupropion HCl 100 mg Tablet 100 mg PO UD Rx Instructions: take 1 & 1/2 tablet in the morning and 1 tablet at noon levothyroxine 125 mcg Tablet 125 mcg PO DAILYBB Rx Instructions: TAKE THIS MEDICATION AT LEAST 30 MINUTES BEFORE BREAKFAST OR ANY OTHER MEDICATIONS rosuvastatin 20 mg tablet 20 mg PO DAILY sertraline 100 mg tablet 200 mg PO DAILY clopidogrel 75 mg tablet 75 mg PO DAILY metoprolol succinate 25 mg tablet extended release 24 hr 25 mg PO DAILY ondansetron HCl 4 mg tablet 4 mg PO Q6H PRN (Reason: nausea and vomiting) Qty: 10 0RF insulin glargine [Lantus Solostar U-100 Insulin] 100 unit/mL (3 mL) insulin pen 20 unit SUBCUT [facility] diclofenac sodium 1 % gel 1 ea TOPICAL TID PRN (Reason: Pain) insulin aspart U-100 [Novolog Flexpen U-100 Insulin] 100 unit/mL (3 mL) insulin pen 8 unit SUBCUT .BEFORE DINNER Trulicity 4.5 mg/0.5 mL pen injector 4.5 mg SUBCUT WK Discontinued hydromorphone 2 mg tablet 2 - 4 mg PO Q6 PRN (Reason: pain) Qty: 30 0RF cholecalciferol (vitamin D3) 1,000 unit Tablet 1,000 unit PO QAM Discharge Orders: Discharge Order (Routine); Ordered 07/10/22 Ordered By: Ortiz Tilley/Other Patient Handouts: Managing Type 2 Diabetes Admission Data Admit Date/Time: 07/04/22 11:54 Attending Provider: Ortiz Garcia Admit Provider: Armen Boland Primary Care Provider: Adria Hilliard Other Providers: Armen Boland ; Shukri Gooden ; [facility] ; [place] ; [facility] ; [facility]
[2022-07-10] MEDS ORDERED: LANTUS PER UNIT CHARGE SQ SCH (21:00)
== END 2022-07-10 18:35 | DRG 481 ==
LOC: ED 07:00 → SUATTDRO 11:54 → EDINP 11:54 → 2N 14:50

== ENCOUNTER 2023-03-18 19:42 | Inpatient (IN) ==
[2023-03-18] MEDS ORDERED: ONDANSETRON INJ 2 MG/ML 2 ML VIAL IV STA ×2 (19:56→20:54)
[2023-03-18] MEDS ORDERED: SODIUM CHLORIDE 0.9% 1000ML 1,000 ML IV ONE (19:56)
[2023-03-18] MEDS ORDERED: FAMOTIDINE 20MG IV PUSH 20 MG/5 ML SYR IV STA (20:03)
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
[2023-03-18 20:47] LABS: Basophils # (auto) 0.04 K/uL (0-0.2); Basophils % (auto) 0.6 %; Eosinophils # (auto) 0.06 K/uL (0-0.50); Eosinophils % (auto) 0.9 %; Hematocrit (blood only) 35.7 % (37.0-47.0); Hemoglobin 12.5 g/dl (12.0-16.0); Immature Granulocytes # (auto) 0.02 K/uL (0.01-0.20); Immature Granulocytes % (auto) 0.3 %; Lymphocytes % (auto) 28.4 %; Mean Corpuscular Hemoglobin 30.6 pg (25.0-34.0); Mean Corpuscular Volume 87.5 fL (80.0-100.0); Mean Platelet Volume 10.1 fL (9.4-12.4); Monocytes # (auto) 0.33 K/uL (0.11-0.59); Monocytes % (auto) 5.2 %; Neutrophils # (auto) 4.09 K/uL (1.40-6.50); Neutrophils % (auto) 64.6 %; Platelet Count 114 K/uL (130-400); RDW Standard Deviation 38.7 fL (36.4-46.3); Red Blood Count 4.08 M/uL (4.20-5.40); White Blood Count 6.34 K/ul (4.8-10.8)
[2023-03-18 21:01] LABS: Albumin Globulin Ratio 1.3 (0.9-2); Albumin Level 4.7 gm/dl (3.4-5.0); BUN Creatinine Ratio 21.3 (10-20); Bilirubin,Total 0.6 mg/dl (0.2-1.0); Calcium 9.9 mg/dl (8.6-10.3); Creatinine Clr Calc Pharmacy 63.8 ml/min; Est GFR (African American) 88.4 ml/min; Est GFR (Non-African American) 76.3 ml/min; Globulin 3.7 gm/dl (2.5-4.0); Magnesium 1.8 mg/dl (1.7-2.4); Potassium 3.7 mmol/L (3.5-5.1); Total Protein 8.4 gm/dl (6.0-8.3)
[2023-03-18] MEDS ORDERED: NovoLIN-R INSULIN PER UNIT CHARGE IV STA (21:05)
[2023-03-18 21:09] LABS: Partial Thromboplastin Ratio 0.7; Partial Thromboplastin Time 20.5 Seconds (21.0-31.0); Prothrombin Time 11.2 Seconds (9.0-12.0)
[2023-03-18 21:11] LABS: Troponin I High Sensitivity 4.1 pg/ml (0-14)
[2023-03-18] MEDS ORDERED: SODIUM CHLORIDE 0.9% 1000ML 500 ML IV ONE (21:39)
--- NOTE | 2023-03-18 21:54 | CT Scan Report ---
Exam(s): CT HEAD Without Contrast EXAM: CT Head Without Intravenous Contrast CLINICAL HISTORY: Reason for exam: headache, vomiting. TECHNIQUE: Axial computed tomography images of the head/brain without intravenous contrast. CTDI is 37.61 mGy and DLP is 547.75 mGy-cm. Automated exposure control was utilized for the study. A dose lowering technique was utilized adhering to the principles of ALARA. COMPARISON: No relevant prior studies available. FINDINGS: Brain: Unremarkable. No hemorrhage. Mild to moderate nonspecific white matter changes. No edema. Ventricles: Unremarkable. No ventriculomegaly. Bones/joints: Hyperostosis frontalis interna. No acute fracture. Soft tissues: Bilateral lens replacements. Also tissue swelling about the right anterior scalp. Sinuses: Unremarkable as visualized. No acute sinusitis. Mastoid air cells: Unremarkable as visualized. No mastoid effusion. IMPRESSION: No evidence of acute intracranial pathology. Electronically signed by: Eliana Cespedes MD 03/18/23 21:53 PM
[2023-03-19] MEDS ORDERED: LANTUS PER UNIT CHARGE SQ STA (00:25)
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
[2023-03-19 01:17] LABS: Appearance Urine Clear (Clear); Bilirubin Urine Negative (Negative); Blood Urine Negative (Negative); Color Urine Yellow; Glucose Urine UA Negative (Negative); Ketones Urine Negative (Negative); Leukocyte Esterase Urine Negative (Negative); Nitrite Urine Negative (Negative); Protein Urine Negative (Negative); Specific Gravity Urine 1.006 (1.000-1.030); Urobilinogen Urine Negative (Negative)
[2023-03-19] MEDS ORDERED: PHARMACY GLYCEMIC MGMT CONSULT PRN (02:19)
[2023-03-19] MEDS ORDERED: DEXTROSE 50% 50 ML SYRINGE IV PRN (02:19)
[2023-03-19] MEDS ORDERED: NITROGLYCERIN SL 0.4 MG/TAB TAB SL PRN (02:19)
[2023-03-19] MEDS ORDERED: GLUCOSE 40% GEL 15 GM TUBE PO PRN (02:19)
[2023-03-19] MEDS ORDERED: ACETAMINOPHEN 325 MG TAB PO PRN (02:19)
[2023-03-19] MEDS ORDERED: GLUCOSE 10 TAB/TUBE PO PRN (02:19)
[2023-03-19] MEDS ORDERED: GLUCAGON FOR INJ 1 MG VIAL SQ PRN (02:19)
[2023-03-19] MEDS ORDERED: CARBOHYDRATES FOR HYPOGLYCEMIA PO PRN (02:19)
[2023-03-19] MEDS: SODIUM CHLORIDE 0.9% 1000ML 1,000 ML IV SCH ×2 (03:52→16:15)
[2023-03-19 05:50] LABS: Basophils # (auto) 0.03 K/uL (0-0.2); Basophils % (auto) 0.5 %; Eosinophils # (auto) 0.04 K/uL (0-0.50); Eosinophils % (auto) 0.6 %; Hematocrit (blood only) 31.6 % (37.0-47.0); Hemoglobin 10.7 g/dl (12.0-16.0); Immature Granulocytes # (auto) 0.02 K/uL (0.01-0.20); Immature Granulocytes % (auto) 0.3 %; Lymphocytes # (auto) 1.81 K/uL (1.2-3.4); Lymphocytes % (auto) 27.3 %; Mean Corpuscular Hemoglobin 30.1 pg (25.0-34.0); Mean Corpuscular Hgb Conc 33.9 g/dL (32.0-36.0); Mean Platelet Volume 10.2 fL (9.4-12.4); Monocytes # (auto) 0.36 K/uL (0.11-0.59); Monocytes % (auto) 5.4 %; Neutrophils # (auto) 4.38 K/uL (1.40-6.50); Neutrophils % (auto) 65.9 %; Platelet Count 81 K/uL (130-400); RDW Coefficient of Variation 12.2 % (11.5-14.5); RDW Standard Deviation 39.3 fL (36.4-46.3); Red Blood Count 3.55 M/uL (4.20-5.40); White Blood Count 6.64 K/ul (4.8-10.8)
[2023-03-19] MEDS ORDERED: INSULIN ASPART PER UNIT CHARGE SC SCH ×2 (06:00→16:30)
[2023-03-19] MEDS: ONDANSETRON INJ 2 MG/ML 2 ML VIAL IV PRN (06:03)
[2023-03-19 06:06] LABS: BUN Creatinine Ratio 22.2 (10-20); Calcium 8.7 mg/dl (8.6-10.3); Creatinine Clr Calc Pharmacy 82.4 ml/min; Est GFR (African American) 107.6 ml/min; Est GFR (Non-African American) 92.8 ml/min; Magnesium 1.7 mg/dl (1.7-2.4)
[2023-03-19] MEDS: LEVOTHYROXINE SODIUM 125 MCG TABLET PO SCH (06:09)
[2023-03-19 06:14] LABS: Troponin I High Sensitivity 5.2 pg/ml (0-14)
[2023-03-19] MEDS ORDERED: MoRPHine SULFATE 4 MG/ML 1 ML CARP\\VIAL IV STA (06:21)
--- NOTE | 2023-03-19 07:17 | Pharmacy Report ---
Pharmacy Glycemic Short Note 2 - Date of Service March 19, 2023 - Glycemic Short BSG Results (Last 24 hours): 03/18/23 03/18/23 03/18/23 19:55 20:15 22:30 Glucose 305 H* POC Glucose 285 H 191 H 03/19/23 03/19/23 03/19/23 01:17 02:02 05:31 Glucose 140 H POC Glucose 216 H 167 H 03/19/23 05:54 Glucose POC Glucose 150 H OUTPATIENT ANTIDIABETIC REGIMEN: * Lantus 20 units bid, trulicity 4.5 mg Qweekly ASSESSMENT: * 68 year old with PMHx significant for DM2, hld, hypothyroidism, htn, depression, recurrent falls presenting with headaches, n/v and chest pain. BSGs elevated on admission in the 300s, given IV insulin bolus. NPO this morning, plan to start outpatient basal at ~50% dosing PLAN FOR INPATIENT GLYCEMIC CONTROL: * Hold outpatient oral diabetes medications * Basal insulin * Lantus 10 units SQ BID * Bolus insulin * NovoLog per scale ACHS or Q6hrs while NPO * Goal Range: Low 120 mg/dL - High 150 mg/dL * Correction Factor: 30 mg/dL/unit * Nutritional / Prandial insulin per carb ratio of 1 unit per 10 grams CHO consumed
--- NOTE | 2023-03-19 07:17 | XRay Report ---
XR chest 1V portable CLINICAL HISTORY: Chest pain, nonspecific TECHNIQUE: Single frontal radiograph of the chest was obtained. Comparison: Comparison is made to chest radiograph 07/07/2022 FINDINGS: Incidental note is made of old left humeral fracture. There is suggestion of old healed left rib frac ture. Cardiomegaly is noted. The lungs are clear. No evidence of pleural effusion or pneumothorax. IMPRESSION: No acute chest disease. ACT 112: Negative or not required by law. Electronically signed by: Boaz Carolina M.D. 03/19/2023 7:16 AM
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
[2023-03-19 08:05] LABS: Estimated Average Glucose 203 mg/dl; Hemoglobin A1C 8.7 % (4.5-5.6)
[2023-03-19] MEDS: CHOLECALCIFEROL 1,000 UNITS 25 MCG TAB PO SCH (08:18)
[2023-03-19] MEDS: CLOPIDOGREL BISULFATE 75 MG TAB PO SCH (08:18)
[2023-03-19] MEDS: FAMOTIDINE 20 MG TAB PO SCH ×2 (08:19→20:37)
[2023-03-19] MEDS: METOPROLOL SUCC 25MG EXT REL TAB PO SCH (08:19)
[2023-03-19] MEDS: SERTRALINE HCL 100 MG TABLET PO SCH (08:20)
[2023-03-19] MEDS: ROSUVASTATIN CALCIUM 20 MG TAB PO SCH (08:20)
[2023-03-19] MEDS: buPROPion HCl 100 MG TABLET PO SCH ×2 (08:20→12:52)
[2023-03-19] MEDS: LANTUS PER UNIT CHARGE SQ SCH ×2 (08:23→20:53)
[2023-03-19] MEDS ORDERED: lisinopril 20 MG TAB PO SCH (09:00)
--- NOTE | 2023-03-19 09:44 | XRay Report ---
KUB CLINICAL HISTORY: Nausea and vomiting. FINDINGS: 3 AP supine abdominal radiographs are correlated with abdominal CT dated 07/04/2022. There is mild gaseous distention of the small bowel loops which measure up to 3.3 cm in diameter. Moderate fecal retention is seen throughout the colon. No evidence of intraperitoneal free air is identified o n these supine images. Cholecystectomy clips are noted in the right upper quadrant. There are no abno rmal abdominal calcifications. Tiny phleboliths are seen in the pelvis. The skeletal structures are o steopenic. There is moderate lumbosacral spondylosis. Posttraumatic deformity and postsurgical change is partially visualized in the left proximal femur. IMPRESSION: 1. There are distended and gas-filled loops of small bowel. This nonspecific and developing small bow el obstruction is not excluded. Correlate clinically. 2. Moderate fecal retention is seen throughout the colon. 3. Additional findings as above. Electronically signed by: Félix Cisneros M.D. 03/19/2023 9:41 AM
[2023-03-19] MEDS: SPIRONOLACTONE 12.5 MG TAB PO SCH (10:34)
[2023-03-19] MEDS: POLYETHYLENE (MIRALAX) 17 GM PACK PO SCH (12:51)
[2023-03-19] MEDS: DOCUSATE SODIUM 100 MG CAP PO SCH ×2 (12:53→20:37)
[2023-03-19] MEDS: INSULIN ASPART PER UNIT CHARGE SC SCH ×3 (12:53→20:53)
--- NOTE | 2023-03-19 14:09 | CT Scan Report ---
CT SCAN OF THE ABDOMEN AND PELVIS WITHOUT IV CONTRAST CLINICAL HISTORY: Generalized abdominal pain. COMPARISON STUDY: Abdominal CT dated 07/04/2022. Abdominal radiograph dated 03/19/2023. TECHNIQUE: CT scan of the abdomen and pelvis is performed from the lung bases to the proximal femora. Images are reviewed in the axial, sagittal, and coronal planes. IV contrast was not administered for this examination. Note that the examination was performed in significantly suboptimal fashion withou t oral and IV contrast. A dose lowering technique was utilized adhering to the principles of ALARA. CT DOSE: 1233.42 mGy.cm FINDINGS: Lung bases: The heart is top normal in size and without pericardial effusion. There is calcification of the mitral annulus. There is diminished attenuation of the cardiac blood pool as compared to the m yocardium suggesting anemia. The lung bases are clear noting bibasilar scarring/atelectasis. Liver: The unenhanced liver is cirrhotic in morphology and heterogeneous and attenuation. There is no dularity of the hepatic surface contour. There is no intrahepatic biliary ductal dilatation. Gallbladder: Surgically absent noting clips in the gallbladder fossa. Spleen: The spleen is enlarged measuring 15.7 cm in length. Pancreas: There is mild infiltration suggested around the distal pancreas. The unenhanced pancreas is otherwise grossly unremarkable. Adrenal glands: Unremarkable. Kidneys: The unenhanced kidneys are normal in size and without hydronephrosis. There are no renal aleks culi identified. There is no evidence of contour deforming renal mass lesion. Abdominal vasculature: The abdominal aorta is normal in course and caliber noting mild atheroscleroti c calcification. Bowel: Peripheral loculations of gas are seen involving the proximal stomach There is no bowel obstru ction. Moderate fecal retention is seen throughout the colon. There are loops of small bowel matted a gainst the ventral abdominal wall, likely related to adhesions. Small bowel closely approximate a kenyon tral hernia as seen on axial image #223. There is mild infiltration around loops of small bowel in th e left midabdomen seen on image #165 comment no residual fluid seen around loops of small bowel in th e pelvis. No focally thick-walled bowel loops are identified. There is no pneumatosis intestinalis or portal venous gas. The appendix is not visualized. Peritoneum: No intraperitoneal free air is identified. There is trace perihepatic and pelvic ascites. A midline surgical scar is noted. Lymphadenopathy: None. Pelvic viscera: The bladder is decompressed and grossly unremarkable. The uterus is surgically absent . No adnexal lesion is seen. Skeletal structures: The skeletal structures are osteopenic. There are chronic compression deformitie s of T11, L1, L3, and L4. Mild spondylosis is observed. No lytic or blastic lesions are seen. Chronic deformity and postsurgical change is noted in the left proximal femur. There are chronic/healed left -sided rib fractures. IMPRESSION: 1. No bowel obstruction is identified. 2. Findings suggest a nonspecific enteritis, greatest involving the ileum. Correlate clinically. 3. Cirrhotic liver morphology. 4. Splenomegaly and a small volume of perihepatic ascites indicate portal hypertension. 5. Question mild infiltration around the distal pancreas. Correlate with clinical laboratory findings for evidence of mild acute pancreatitis. 6. Peripheral loculations of gas are seen involving the proximal stomach and likely represents trappe d air. Pneumatosis is considered much less likely. Correlate clinically. 7. Additional findings as above. ACT 112: Negative or not required by law. Electronically signed by: Félix Cisneros M.D. 03/19/2023 2:07 PM
--- NOTE | 2023-03-19 14:22 | Hospitalist Progress Note ---
Date of Service March 19, 2023 Assessment & Plan (1) Headache: Plan: Patient is a 68 yr female with H/O Type 2 diabetes, hyperlipidemia, hypothyroidism, diabetic neuropathy, sleep apnea on CPAP, history of CVA, hypertension, female stress incontinence, osteoarthritis, postherpetic neuralgia, depression, anxiety, recurrent falls, history of PE and DVT presents with headaches nausea vomiting and chest pain. Fecal retention-POA Nonspecific enteritis-POA --CT ABD:No bowel obstruction is identified. Findings suggest a nonspecific enteritis, greatest involving the ileum. Correlate clinically. Cirrhotic liver morphology. Splenomegaly and a small volume of perihepatic ascites indicate portal hypertension. Question mild infiltration around the distal pancreas. Correlate with clinical laboratory findings for evidence of mild acute pancreatitis. Peripheral loculations of gas are seen involving the proximal stomach and likely represents trapped air. Pneumatosis is considered much less likely. Correlate clinically. --KUB:There are distended and gas-filled loops of small bowel. This nonspecific and developing small bowel obstruction is not excluded. Correlate clinically. Moderate fecal retention is seen throughout the colon. -- Will obtain stool studies if has recurrence of diarrhea Start on bowel regimen Check lipase Consider GI evaluation if needed --Clear liquid for now Gentle IV fluids as needed Chest pain Reproducible on exam Admits fall 1 week ago Likely musculoskeletal --CXR:No acute chest disease. --ECHO: No regional wall motion abnormality. Aortic valve appears trileaflet morphology. Moderate focal calcification of the noncoronary cusp and left coronary cusp. Mild mitral annular calcification. Moderate concentric LVH. EF 55 to 60%. -- Troponins negative Appreciate cardiology input Increase this up to 40 mg daily, continue Toprol, started on Aldactone 12.5 mg daily continue Crestor 20 mg daily, Zetia 10 mg daily Will recheck lipid panel tomorrow Consider adding Jardiance if needed Outpatient stress test recommended Appreciate cardiology input Headache CT head:No evidence of acute intracranial pathology. Attributes to frequent falling due to Neuropathy Monitor Frequent falls Attributes to her neuropathy PT OT Fall precautions DM II HbA1c 8.7 Continue insulin while hospitalized Monitor BGs Glycemic pharmacy consulted H/O DVT and PE Reported PE in 2009 Reports DVT many years ago Was on Coumadin 6 years ago--discontinued due to falls Hypothyroidism Normal TSH Continue levothyroxine Hypertension Continue metoprolol July dose increased to 40 mg daily Monitor BP Hyperlipidemia Continue statin Depression Continue bupropion and sertraline DVT Px: SCDs for now Code Status Full code Disposition PT/OT prior to discharge Admission and Anticipated Discharge Date Admission Date: March 19, 2023 Subjective Patient is seen and examined at bedside States having nausea but no vomiting this morning Also reports alternating constipation with diarrhea over the last few days Admits to have multiple falls which she attributes to neuropathy Reports abdominal pain predominantly right and left lower quadrant No other complaints Review of Systems Review of Systems: All systems reviewed & are unremarkable except as noted in Subjective Physical Exam Physical Exam: Physical Exam: Vitals signs as noted above General Appearance:Obese, no apparent distress Head: normocephalic, Atraumatic Eyes: normal inspection, EOMI Neck: supple, Trachea midline Respiratory/Chest: Decreased breath sounds, CTA, +Tender to palpate Cardiovascular: S1, S2, No murmur Abdomen/GI:Soft, RLQ/LLQ tender, Bowel sounds present Extremities/Musculoskeletal:normal inspection, 1+ edema Neurologic/Psych:AAOX3, grossly no focal neurological deficits Skin: normal color, warm Results & Data Results & Data Vital Signs (Past 12 Hours) Vital Signs Temp Pulse Pulse Resp BP Pulse Ox O2 Del Method 03/19/23 11:29 36.6 C 57 L 18 136/66 97 Room Air 03/19/23 07:28 36.6 C 55 L 18 147/83 H 98 Room Air 03/19/23 06:46 57 L 03/19/23 05:49 56 L 18 149/77 H 98 Room Air 03/19/23 03:23 36.4 C L 58 L 18 155/73 H 98 Room Air Laboratory Results Short CBC 03/18/23 03/19/23 Range/Units 20:15 05:31 WBC 6.34 6.64 (4.8-10.8) K/ul Hgb 12.5 10.7 L (12.0-16.0) g/dl Hct 35.7 L 31.6 L (37.0-47.0) % Plt Count 114 L 81 L (130-400) K/uL BMP 03/18/23 03/19/23 20:15 05:31 Sodium 135 L 138 Potassium 3.7 4.0 Chloride 100 107 Carbon Dioxide 27 28 BUN 17 14 Creatinine 0.80 0.63 Glucose 305 H* 140 H Calcium 9.9 8.7 Liver Function 03/18/23 Range/Units 20:15 Total Bilirubin 0.6 (0.2-1.0) mg/dl AST 21 (13-39) U/L ALT 19 (7-52) U/L Alkaline Phosphatase 118 H (34-104) U/L Albumin 4.7 (3.4-5.0) gm/dl Urine 03/19/23 Range/Units Unknown Urine Color Yellow Urine Appearance Clear (Clear) Urine pH 7.0 (4.5-7.5) Ur Specific Ken[place] 1.006 (1.000-1.030) Urine Protein Negative (Negative) Urine Glucose (UA) Negative (Negative) (1) Headache Headache chronicity pattern: acute headache Headache type: unspecified Intractability: intractable Qualified Code(s): R51.9 - Headache, unspecified
--- NOTE | 2023-03-19 19:28 | Electrocardiogram Report ---
Test Reason : Blood Pressure : / mmHG Vent. Rate : 074 BPM Atrial Rate : 074 BPM P-R Int : 170 ms QRS Dur : 148 ms QT Int : 446 ms P-R-T Axes : 055 030 039 degrees QTc Int : 495 ms Normal sinus rhythm Right bundle branch block Minimal voltage criteria for LVH, may be normal variant Abnormal ECG When compared with ECG of 07-JUL-2022 09:14, T wave amplitude has increased in Lateral leads Confirmed by Gui Manrique ([id number]) on 03/19/2023 7:28:19 PM Referred By: REFERRED SELF Confirmed By:Cooper Manrique
--- NOTE | 2023-03-19 19:32 | Electrocardiogram Report ---
Test Reason : Blood Pressure : / mmHG Vent. Rate : 054 BPM Atrial Rate : 054 BPM P-R Int : 166 ms QRS Dur : 142 ms QT Int : 500 ms P-R-T Axes : 050 025 036 degrees QTc Int : 474 ms Sinus bradycardia Right bundle branch block Abnormal ECG When compared with ECG of 18-MAR-2023 19:57, (unconfirmed) No significant change was found Confirmed by Gui Manrique ([id number] on 03/19/2023 7:32:47 PM Referred By: REFERRED SELF Confirmed By:Cooper Manrique
[2023-03-20] MEDS: SODIUM CHLORIDE 0.9% 1000ML 1,000 ML IV SCH (02:24)
[2023-03-20] MEDS: LEVOTHYROXINE SODIUM 125 MCG TABLET PO SCH (06:25)
--- NOTE | 2023-03-20 06:40 | Cardiology Progress Note ---
Date of Service March 20, 2023 Assessment & Plan (1) Chest pain: Plan Please refer to attending physician note/addendum for plan of care. Admission and Anticipated Discharge Date Admission Date: March 19, 2023 Supervising Physician Co-Signing Physician Notes Attending Staff: Pt seen with [facility] staff. Concur with observations and plans. 51 minutes spent addressing challenges, educating and advancing daily plan of care. 68 yo woman presenting with: left-sided KIM x 2 weeks Consultation for: Chest Discomfort Hx of multiple falls In ED - N/V + diaphoresis Chest discomfort reported SBP - 150-160 mmHg ECHO - 06/2022 - LVEF 65-70%, Concentric LVH - no WMA - no significant valvular disease Bradycardia in ED Mild anemia Troponin negative x 3 Hx of CVA On Plavix No known CAD No known GA hx ASCVD Risk Factors: Age DM HTN Hyperlipidemia - Last LDL 172 Plans: * Epsidoes of chest pressure overnight + drenching diaphoresis * Check EKG * Check Troponin * Suspicious for Unstable Angina * Start Heparin * Right radial pulse 2/2; right femoral pulse 2/2 no bruit * Pt had a liquid breakfast - no solids - Pt is NPO except for meds at present * HTN * Continue Lisinopril to 40 mg po per day * Continue Toprol XL 25 mg po per day (HR 55) * Increase Aldactone 25 mg po per day * Procardia XL 30 mg po per day (after cardiac cath) * Hyperlipidemia - LDL was 172 * LDL - 67 * Continue Crestor 20 mg po per day * Pt may need Zetia 10 mg po per day * Hx of CVA - Continue Plavix 75 mg po per day * ECHO - LVEF 60%, Concentric LVH, Aortic Valve calcification sans . * + DM * Consider adding Jardiance to regimen - 10 mg po per day * Chest discomfort - no crescendo pattern, Troponin negative, no active ischemia on EKG * TSH WNL * Urine - no protein * W/U for abdominal complaints * Discussing with RN and Physician Bhavesh Liu Subjective Events overnight: * Pt awoken at 430 AM * Drenching sweats * + Substernal chest pressure * Duration - 2 hrs * Pressure has dissipated * Patient states that her previous bout of N/V was similar to her bout this AM Review of Systems Review of Systems: All systems reviewed & are unremarkable except as noted in HPI & below Results & Data Vital Signs (Past 12 Hours) Vital Signs Temp Pulse Pulse Resp BP Pulse Ox O2 Del Method 03/20/23 03:57 36.5 C 56 L 18 175/69 H 96 Room Air 03/20/23 00:00 66 03/20/23 00:33 36.6 C 67 18 136/63 96 Room Air 03/19/23 20:11 36.8 C 60 18 166/79 H 96 Room Air Laboratory Results Cardiac Enzymes 03/19/23 03/19/23 Range/Units 11:23 17:05 Troponin I High Sens 5.0 3.8 (0-14) pg/ml Lipids 03/20/23 Range/Units 07:13 Triglycerides 162 H (0-150) mg/dl Cholesterol 126 (0-200) mg/dl HDL Cholesterol 31 mg/dl Cholesterol/HDL Ratio 4.1 (0-5) CBC 03/20/23 Range/Units 07:13 WBC 5.26 (4.8-10.8) K/ul RBC 3.87 L (4.20-5.40) M/uL Hgb 11.9 L (12.0-16.0) g/dl Hct 34.8 L (37.0-47.0) % Plt Count 82 L (130-400) K/uL Comprehensive Metabolic Panel 03/20/23 Range/Units 07:13 Sodium 141 (136-145) mmol/L Potassium 3.9 (3.5-5.1) mmol/L Chloride 109 H (98-107) mmol/L Carbon Dioxide 27 (21-32) mmol/L BUN 9 (6-23) mg/dl Creatinine 0.63 (0.6-1.2) mg/dl Glucose 124 H (70-99(Fasting)) mg/dl Calcium 8.8 (8.6-10.3) mg/dl Intake and Output 03/19/23 03/20/23 03/20/23 22:59 06:59 14:59 Intake Total 1320 / 2320 Balance 1320 / 2320 Intake: IV 1000 / 2000 Sodium Chloride 0.9% 1000ML 1, 1000 / 2000 000 ml @ 100 mls/hr IV .Q10H [facility] Rx#:[id number] Oral 320 / 320 Other: Weight 75.5 kg Weight Measurement Method [facility] Medications Administered Current Inpatient Medications Acetaminophen (Acetaminophen 325 Mg Tab) 650 mg PO Q4H PRN PRN Reason: Pain or Fever Stop: 04/18/23 02:18 Bupropion HCl (Bupropion Hcl 100 Mg Tablet) 100 mg PO DAILY@1200 [facility] Stop: 04/18/23 11:59 Last Admin: 03/19/23 12:52 Dose: 100 mg Bupropion HCl (Bupropion Hcl 100 Mg Tablet) 150 mg PO QAM [facility] Stop: 04/18/23 08:59 Last Admin: 03/20/23 08:15 Dose: 150 mg Clopidogrel Bisulfate (Clopidogrel Bisulfate 75 Mg Tab) 75 mg PO DAILY [facility] Stop: 04/18/23 08:59 Last Admin: 03/20/23 08:16 Dose: 75 mg Dextrose (Dextrose 50% 50 Ml Syringe) 25 - 50 ml IV UD PRN; Protocol PRN Reason: Hypoglycemia Protocol Stop: 04/18/23 02:18 Docusate Sodium (Docusate Sodium 100 Mg Cap) 100 mg PO BID [facility] Stop: 04/18/23 11:59 Last Admin: 03/20/23 08:16 Dose: 100 mg Famotidine (Famotidine 20 Mg Tab) 20 mg PO BID [facility] Stop: 04/18/23 08:59 Last Admin: 03/20/23 08:17 Dose: 20 mg Glucagon (Glucagon For Inj 1 Mg Vial) 1 mg SQ UD PRN; Protocol PRN Reason: Hypoglycemia Protocol Stop: 04/18/23 02:18 Glucose (Glucose 10 Tab/Tube) 4 - 8 tab PO UD PRN; Protocol PRN Reason: Hypoglycemia Treatment Stop: 04/18/23 02:18 Glucose (Glucose 40% Gel 15 Gm Tube) 15 - 30 gm PO UD PRN; Protocol PRN Reason: Hypoglycemia Protocol Stop: 04/18/23 02:18 Insulin Aspart (Insulin Aspart Per Unit Charge) 0 units SC ACHS [facility] Stop: 04/18/23 12:44 Last Admin: 03/20/23 08:28 Dose: 2 units Insulin Glargine (Lantus Per Unit Charge) 10 units SQ BID [facility] Stop: 04/18/23 08:59 Last Admin: 03/20/23 08:28 Dose: 10 units Levothyroxine Sodium (Levothyroxine Sodium 125 Mcg Tablet) 125 mcg PO DAILYBB [facility] Stop: 04/18/23 06:29 Last Admin: 03/20/23 06:25 Dose: 125 mcg Lisinopril (Lisinopril 40 Mg Tab) 40 mg PO DAILY [facility] Stop: 04/19/23 08:59 Last Admin: 03/20/23 08:16 Dose: 40 mg Metoprolol Succinate (Metoprolol Succ 25mg Ext Rel Tab) 25 mg PO DAILY [facility] Stop: 04/18/23 08:59 Last Admin: 03/20/23 08:16 Dose: 25 mg Miscellaneous (Carbohydrates For Hypoglycemia ) 15 - 30 gm PO UD PRN PRN Reason: Hypoglycemia Protocol Stop: 04/18/23 02:18 Miscellaneous Information (Pharmacy Glycemic Mgmt Consult) 1 each N/A UD PRN PRN Reason: Consult Stop: 04/18/23 02:18 Nifedipine (Nifedipine Extended Rel 30 Mg Tabcr) 30 mg PO QAM [facility] Stop: 04/19/23 09:29 Nitroglycerin (Nitroglycerin Sl 0.4 Mg/Tab Tab) 0.4 mg SL Q5M PRN PRN Reason: Chest Pain Stop: 04/18/23 02:18 Last Admin: 03/19/23 06:18 Dose: 0.4 mg Ondansetron HCl (Ondansetron Inj 2 Mg/Ml 2 Ml Vial) 4 mg IV Q6H PRN PRN Reason: Nausea Stop: 04/18/23 02:18 Last Admin: 03/19/23 06:03 Dose: 4 mg Polyethylene Glycol (Polyethylene (Miralax) 17 Gm Pack) 17 gm PO DAILY [facility] Stop: 04/18/23 11:59 Last Admin: 03/20/23 08:15 Dose: 17 gm Rosuvastatin Calcium (Rosuvastatin Calcium 20 Mg Tab) 20 mg PO DAILY [facility] Stop: 04/18/23 08:59 Last Admin: 03/20/23 08:16 Dose: 20 mg Sertraline HCl (Sertraline Hcl 100 Mg Tablet) 200 mg PO DAILY [facility] Stop: 04/18/23 08:59 Last Admin: 03/20/23 08:17 Dose: 200 mg Spironolactone (Spironolactone 25 Mg Tab) 25 mg PO DAILY [facility] Stop: 04/20/23 08:59 Vitamin D (Cholecalciferol 1,000 Units 25 Mcg Tab) 1,000 units PO DAILY [facility] Stop: 04/18/23 08:59 Last Admin: 03/20/23 08:16 Dose: 1,000 units
[2023-03-20 07:34] LABS: Hematocrit (blood only) 34.8 % (37.0-47.0); Hemoglobin 11.9 g/dl (12.0-16.0); Mean Corpuscular Hemoglobin 30.7 pg (25.0-34.0); Mean Corpuscular Hgb Conc 34.2 g/dL (32.0-36.0); Mean Corpuscular Volume 89.9 fL (80.0-100.0); Mean Platelet Volume 10.4 fL (9.4-12.4); Platelet Count 82 K/uL (130-400); RDW Coefficient of Variation 12.5 % (11.5-14.5); RDW Standard Deviation 40.6 fL (36.4-46.3); Red Blood Count 3.87 M/uL (4.20-5.40); White Blood Count 5.26 K/ul (4.8-10.8)
--- NOTE | 2023-03-20 07:46 | XRay Report ---
KUB CLINICAL HISTORY: Fecal retention. FINDINGS: 3 AP, portable, supine abdominal radiographs are compared to abdominal radiographs and CT d ated 03/19/2023. Cholecystectomy clips are noted in the right upper quadrant. There is no radiographic evidence of bowel obstruction. No evidence of intraperitoneal free air is seen on these supine images . [id number] fecal retention is noted throughout the colon. There are no abnormal abdominal aleks cifications. The skeletal structures are osteopenic. Postsurgical change is noted in the left proxima l femur. IMPRESSION: Nonobstructed abdominal bowel gas pattern. Electronically signed by: Félix Cisneros M.D. 03/20/2023 7:45 AM
[2023-03-20 07:55] LABS: Chol HDL Ratio 4.1 (0-5)
[2023-03-20 08:01] LABS: BUN Creatinine Ratio 14.3 (10-20); Calcium 8.8 mg/dl (8.6-10.3); Creatinine Clr Calc Pharmacy 82.4 ml/min; Est GFR (African American) 107.6 ml/min; Est GFR (Non-African American) 92.8 ml/min; Magnesium 1.8 mg/dl (1.7-2.4); Potassium 3.9 mmol/L (3.5-5.1)
[2023-03-20] MEDS: POLYETHYLENE (MIRALAX) 17 GM PACK PO SCH (08:15)
[2023-03-20] MEDS: buPROPion HCl 100 MG TABLET PO SCH ×2 (08:15→12:49)
[2023-03-20] MEDS: CHOLECALCIFEROL 1,000 UNITS 25 MCG TAB PO SCH (08:16)
[2023-03-20] MEDS: CLOPIDOGREL BISULFATE 75 MG TAB PO SCH (08:16)
[2023-03-20] MEDS: ROSUVASTATIN CALCIUM 20 MG TAB PO SCH (08:16)
[2023-03-20] MEDS: DOCUSATE SODIUM 100 MG CAP PO SCH ×2 (08:16→21:52)
[2023-03-20] MEDS: METOPROLOL SUCC 25MG EXT REL TAB PO SCH (08:16)
[2023-03-20] MEDS: lisinopril 40 MG TAB PO SCH (08:16)
[2023-03-20] MEDS: SPIRONOLACTONE 12.5 MG TAB PO SCH (08:17)
[2023-03-20] MEDS: SERTRALINE HCL 100 MG TABLET PO SCH (08:17)
[2023-03-20] MEDS: FAMOTIDINE 20 MG TAB PO SCH ×2 (08:17→21:53)
[2023-03-20] MEDS: INSULIN ASPART PER UNIT CHARGE SC SCH ×4 (08:28→21:53)
[2023-03-20] MEDS: LANTUS PER UNIT CHARGE SQ SCH (08:28)
[2023-03-20] MEDS ORDERED: SPIRONOLACTONE 12.5 MG TAB PO ONE (09:24)
[2023-03-20] MEDS ORDERED: Heparin IV Adult Wt-Based Standard *NO* Bolus Protocol IV ONE (09:40)
[2023-03-20] MEDS: NIFEdipine EXTENDED REL 30 MG TABCR PO SCH (09:49)
[2023-03-20] MEDS ORDERED: HEPARIN SODIUM/DEXTROSE 25,000 UNITS/500 ML BAG IV SCH (10:00)
[2023-03-20 11:36] LABS: Partial Thromboplastin Ratio 0.9; Partial Thromboplastin Time 24.4 Seconds (21.0-31.0); Prothrombin Time 11.4 Seconds (9.0-12.0)
--- NOTE | 2023-03-20 12:02 | Electrocardiogram Report ---
Test Reason : Blood Pressure : / mmHG Vent. Rate : 057 BPM Atrial Rate : 057 BPM P-R Int : 170 ms QRS Dur : 142 ms QT Int : 492 ms P-R-T Axes : 054 048 043 degrees QTc Int : 478 ms Sinus bradycardia Right bundle branch block Abnormal ECG When compared with ECG of 19-MAR-2023 05:39, No significant change was found Confirmed by Gui Manrique ([id number]) on 03/20/2023 12:02:01 PM Referred By: REFERRED SELF Confirmed By:Cooper Manrique
--- NOTE | 2023-03-20 12:06 | Electrocardiogram Report ---
Test Reason : Blood Pressure : / mmHG Vent. Rate : 063 BPM Atrial Rate : 063 BPM P-R Int : 164 ms QRS Dur : 138 ms QT Int : 466 ms P-R-T Axes : 048 040 018 degrees QTc Int : 476 ms Normal sinus rhythm Right bundle branch block Abnormal ECG When compared with ECG of 20-MAR-2023 06:12, (unconfirmed) Right bundle branch block has replaced Non-specific intra-ventricular conduction block Confirmed by Gui Manrique ([id number]) on 03/20/2023 12:05:51 PM Referred By: REFERRED SELF Confirmed By:Cooper Manrique
--- NOTE | 2023-03-20 13:12 | Pharmacy Report ---
Pharmacy Glycemic Short Note 2 - Date of Service March 20, 2023 - Glycemic Short BSG Results (Last 24 hours): 03/19/23 03/19/23 03/19/23 13:36 16:54 20:42 Glucose POC Glucose 193 H 109 H 170 H 03/20/23 03/20/23 03/20/23 07:13 08:06 12:25 Glucose 124 H POC Glucose 125 H 122 H OUTPATIENT ANTIDIABETIC REGIMEN: * Lantus 20 units bid, trulicity 4.5 mg Qweekly ASSESSMENT: 03/20: * BSGs within goal the last 24h: [phone]/dL. Received 20 units of basal and 5 units of bolus insulin yesterday. * Transitioned to NPO again today at lunch. * Will scale Lantus starting tonight at bedtime given inconsistent PO intake for a couple of days. No change to Novolog parameters. 03/19: * 68 year old with PMHx significant for DM2, hld, hypothyroidism, htn, depression, recurrent falls presenting with headaches, n/v and chest pain. BSGs elevated on admission in the 300s, given IV insulin bolus. NPO this morning, plan to start outpatient basal at ~50% dosing PLAN FOR INPATIENT GLYCEMIC CONTROL: * Hold outpatient oral diabetes medications * Basal insulin * Lantus BID per scale (0 units if BSG <180mg/dL, 10 units if BSG >/= 180mg/dL) * Bolus insulin * NovoLog per scale ACHS or Q6hrs while NPO * Goal Range: Low 120 mg/dL - High 150 mg/dL * Correction Factor: 30 mg/dL/unit * Nutritional / Prandial insulin per carb ratio of 1 unit per 15 grams CHO consumed
[2023-03-20] MEDS ORDERED: niCARdipine HCL INJ 2.5 MG/ML 10 ML AMP ONE (13:22)
[2023-03-20] MEDS ORDERED: fentaNYL citrate PF 100 MCG/2 ML VIAL ONE (13:22)
[2023-03-20] MEDS ORDERED: HEPARIN (PORCINE) 1000 UNIT/ML 10 ML (CATH LAB USE ONLY) ONE (13:22)
[2023-03-20] MEDS ORDERED: MIDAZOLAM HCL 1 MG/ML 2ML VIAL ONE (13:23)
[2023-03-20] MEDS ORDERED: NITROGLYCERIN/D5W 100MCG/ML 20ML SYR ONE (13:24)
--- NOTE | 2023-03-20 13:56 | Pre Anesthesia Assessment ---
Date of Service March 20, 2023 Pre Sedation Assessment Vital Signs Temp Pulse Pulse Pulse Resp BP Pulse Ox 03/20/23 13:50 67 20 163/107 H 96 03/20/23 11:35 36.5 C 63 18 147/71 H 97 03/20/23 10:27 03/20/23 07:37 56 L 03/20/23 07:37 36.4 C L 60 18 166/65 H 93 03/20/23 03:57 36.5 C 56 L 18 175/69 H 96 03/20/23 00:00 66 03/20/23 00:33 36.6 C 67 18 136/63 96 03/19/23 20:11 36.8 C 60 18 166/79 H 96 03/19/23 15:46 62 03/19/23 15:23 36.7 C 58 L 18 154/74 H 96 O2 Del Method 03/20/23 13:50 Room Air 03/20/23 11:35 Room Air 03/20/23 10:27 Room Air 03/20/23 07:37 03/20/23 07:37 Room Air 03/20/23 03:57 Room Air 03/20/23 00:00 03/20/23 00:33 Room Air 03/19/23 20:11 Room Air 03/19/23 15:46 03/19/23 15:23 Room Air Cardiovascular RRR, no murmur, no edema (+SM) Respiratory normal respiratory effort, lungs clear to auscultation Pre-Sedation Airway Assessment Smoking Status: Never smoker Mllampati 3 ASA 3 Notes The planned sedation has been discussed with the patient. Informed Consent was obtained. I have identified the patient, determined the appropriateness of sedation and have assessed the patient immediately prior to the procedure. All medicine(s) and interventions are by my order.
[2023-03-20] MEDS ORDERED: methylPREDNISolone 125 MG/2 ML VIAL ONE (14:01)
[2023-03-20] MEDS ORDERED: diphenhydrAMINE 50 MG/ML VIAL ONE (14:01)
[2023-03-20] MEDS ORDERED: hydrALAZINE HCL 20 MG/ML VIAL ONE (14:14)
--- NOTE | 2023-03-20 14:49 | Post Anesthesia Assessment ---
Date of Service March 20, 2023 Post Sedation Assessment Vital Signs Temp Pulse Pulse Pulse Resp BP Pulse Ox 03/20/23 14:35 68 18 160/79 H 97 03/20/23 13:50 67 20 163/107 H 96 03/20/23 11:35 36.5 C 63 18 147/71 H 97 03/20/23 10:27 03/20/23 07:37 56 L 03/20/23 07:37 36.4 C L 60 18 166/65 H 93 03/20/23 03:57 36.5 C 56 L 18 175/69 H 96 03/20/23 00:00 66 03/20/23 00:33 36.6 C 67 18 136/63 96 03/19/23 20:11 36.8 C 60 18 166/79 H 96 03/19/23 15:46 62 03/19/23 15:23 36.7 C 58 L 18 154/74 H 96 O2 Del Method 03/20/23 14:35 Room Air 03/20/23 13:50 Room Air 03/20/23 11:35 Room Air 03/20/23 10:27 Room Air 03/20/23 07:37 03/20/23 07:37 Room Air 03/20/23 03:57 Room Air 03/20/23 00:00 03/20/23 00:33 Room Air 03/19/23 20:11 Room Air 03/19/23 15:46 03/19/23 15:23 Room Air Recovery Score Activity: Moves 4 extremities Respiration: Deep Breath/Cough Circulation: +/-20% PreAnes Value Consciousness: Arouseable (by name) Oxygen Saturation: > 92% On Room Air Post Anesthesia Score: 9 Discharge Sedation Level of Care: Fast Track Phase II Post Sedation Plan On clinical assessment, the patient appears to have tolerated the sedation without complications. Patient is recovering as anticipated. Patient will continue to be monitored by nursing and may be discharged when sedation discharge criteria are met per below protocol. Upon Completions of procedure up to 15 minutes continue every 5 minute vital signs and the P.A.R. score; then discharge to a Phase I or Fast Track to Phase II per the following guidelines: * Discharge Patient to appropriate Phase II area if PAR is 8 or greater or return to pre- procedure baseline. The post - procedure orders will be as directed. * If PAR score is less than 8 or not return to pre-procedure baseline then patient will follow Phase I monitoring till PAR is reached for Phase II. The Phase I may be done in procedure room or may call to secure a Phase I area. * If naloxone or flumazenil are used for reversal, hold in Phase I for continued monitoring from when last reversal dose was given for a minimum of 60 minutes or longer pending the nurse and/or physician discretion of patient condition before discharge to Phase II. Please call the Sedation Physician to re-evaluate and complete post-note for discharge to Phase II area. Do NOT discharge from procedure sedation or Phase 1 until post- sedation evaluation note is complete by procedure /sedation MD Sedation Discharge Instructions to be given to the patient at discharge to home. [facility] Procedure Codes (Charges) Indication for Procedure Indication for procedure: Unstable angina Sedation/Anesthesia Procedure 1: Sedation/Anesthesia: 35148 Mod Sedation by the same physician;Init15 Min Child Age 5 & Up (Start time 1417, end time 1429) Total Sedation Time (minutes): 12
--- NOTE | 2023-03-20 15:08 | Cardiac Catheterization ---
[facility] Data: Sh[place] Cardiac Status Clinical evaluation leading to the procedure CAD Presenation: Unstable angina Anginal Classification: CCS IV Heart Failure: No Cardiogenic Shock within 24 Hours: No Cardiac Arrest within 24 Hours: No Imaging Studies Past 6 Months: Yes Coronary Anatomy Dominant: Left Left Main (% Stenosis): Normal LAD (% Stenosis): Normal D1 (% Stenosis): Normal D2 (% Stenosis): Normal D3 (% Stenosis): Normal Circumflex (% Stenosis): Normal OM1 (% Stenosis): Normal OM2 (% Stenosis): Normal L PL1 (% Stenosis): Normal L PDA (% Stenosis): Normal RCA (% Stenosis): Normal Ramus (% Stenosis): Proximal (Less than 30%) Diagnostic Physicians Name: Shukri Marvin MD, PhD Closure Device Percutaneous Entry Location: Radial Closure Device: Radial Band Recommendations: Medical Therapy and/or Counseling Cardiac Cath Procedure Full Procedure Date March 20, 2023 Pre-Procedure Diagnosis Pre-Procedure Diagnosis: Acute Coronary Syndrome AUC Score AUC Score: 07 Post-Procedure Diagnosis Post-Procedure Diagnosis: Normal Coronary Arteries Procedure(s) Performed Procedure(s) Performed: Coronary Angiography French Teacher Shukri Marvin MD, PhD Estimated Blood Loss Estimated Blood Loss: 3 mL Medication(s) Medication(s): Diphenhydramine, Fentanyl, Heparin, Lidocaine 1%, Nicardipine, Nitroglycerin and Versed Summary of Findings Brief description: Patient was brought to the cardiac catheterization suite where she was shaved and prepped in a sterile fashion. Sedated using IV Versed and fentanyl. In addition, she was premedicated for contrast allergy with Solu-Medrol 125 mg IV and Benadryl 25 mg IV. She had received Pepcid 20 mg p.o. in the morning. Soft tissues of the right wrist were anesthetized using 2 mL of 1% Xylocaine. The right radial artery was accessed using a modified Seldinger technique and a 6 Polish radial artery glide sheath was placed. Patient was provided anticoagulation with IV heparin and antispasmodics including nicardipine and nitroglycerin. All catheters were advanced and exchanged over a 0.035 J-tip wire. Left coronary angiography in orthogonal views with a 5 [place] 4 diagnostic catheter. Right coronary angiography in orthogonal views with a 5 [place] 4 diagnostic catheter Catheters were removed. Radial artery sheath was removed. Hemostasis was obtained using the TR band. Patient remained hemodynamically stable and asymptomatic. She was returned to the recovery area. This ended the case. Coronary angiography findings: KAL-imiha-yutbmwt vessel trifurcating into LAD, circumflex, and ramus. No disease. LAD-large caliber and transapical. Gives a medium to large caliber branching first diagonal followed by a small to medium branching second diagonal and a medium caliber branching third diagonal. The LAD and its branches have no angiographically significant disease. Ramus- large caliber and branching. There is ostial to proximal stenosis of less than 30%. LCx-large caliber and dominant. Vessel travels in the AV groove giving a small to medium caliber branching OM1 it then provides a large caliber branching OM 2. The AV groove vessel then becomes medium in caliber and provides a medium to large posterolateral branch and a medium caliber long PDA. No angiographically significant disease in the circumflex or its branches. RCA-small to medium caliber nondominant. No disease. Summary: 1. No angiographically significant disease 2. Recommend continued work-up for noncoronary etiology of chest discomfort 3. Recommend guideline directed medical therapy for primary prevention of coronary disease to include; abstinence from tobacco, regular cardiovascular exercise, cardiac prudent diet, treatment of this pertinent comorbid disease (diabetes, hypertension, dyslipidemia) to clinical targets. Hemodynamics Rest Ao:: 151/77 mmHg Final Ao: 134/83 mmHg LV: Not performed Recommendations Recommendations: Medical Therapy and/or Counseling Radiation Exposure (mGy) 696 mGy, 1.3 minutes fluoroscopy time Contrast (mls) 65 mL Anesthesia 1 mg IV Versed, 25 mcg IV fentanyl, 25 mg IV Benadryl start 1416, end 142 Procedural Complication(s) None Disposition Recovery Room\PACU I attest to the content of the Intraoperative Record and any orders documented therein. Any exceptions are noted below. [facility] Card Cath Procedure Codes Cardiac Catheterization Procedure 1: Cardiovascular Cath Procedures: 64880 Coronaries Moderate Sedation Procedure 1: Sedation/Anesthesia: 95979 Mod Sedation by the same physician;Init15 Min Child Age 5 & Up (Start 141, end time 142) PG Care Time/CCT Total # of Minutes Spent Total Time Spent with Patient: Total time spent is greater than 50% in coordination of care (as documented) at patient's floor/unit and/or counseling patient:
--- NOTE | 2023-03-20 15:17 | Hospitalist Progress Note ---
Date of Service March 20, 2023 Assessment & Plan (1) Headache: Plan: Patient is a 68 yr female with H/O Type 2 diabetes, hyperlipidemia, hypothyroidism, diabetic neuropathy, sleep apnea on CPAP, history of CVA, hypertension, female stress incontinence, osteoarthritis, postherpetic neuralgia, depression, anxiety, recurrent falls, history of PE and DVT presents with headaches nausea vomiting and chest pain. Fecal retention-POA Nonspecific enteritis-POA --CT ABD:No bowel obstruction is identified. Findings suggest a nonspecific enteritis, greatest involving the ileum. Correlate clinically. Cirrhotic liver morphology. Splenomegaly and a small volume of perihepatic ascites indicate portal hypertension. Question mild infiltration around the distal pancreas. Correlate with clinical laboratory findings for evidence of mild acute pancreatitis. Peripheral loculations of gas are seen involving the proximal stomach and likely represents trapped air. Pneumatosis is considered much less likely. Correlate clinically. --KUB:There are distended and gas-filled loops of small bowel. This nonspecific and developing small bowel obstruction is not excluded. Correlate clinically. Moderate fecal retention is seen throughout the colon. -- Will obtain stool studies if has recurrence of diarrhea --Normal lipase Consider GI evaluation if needed --Gentle IV fluids as needed -- Advance to full liquid diet -- Continue bowel regimen Chest pain: Suspected unstable angina Reproducible on exam Admits fall 1 week ago Likely musculoskeletal --S/P cardiac catheterization on 03/20/2023: No angiographically significant disease --CXR:No acute chest disease. --ECHO: No regional wall motion abnormality. Aortic valve appears trileaflet morphology. Moderate focal calcification of the noncoronary cusp and left coronary cusp. Mild mitral annular calcification. Moderate concentric LVH. EF 55 to 60%. -- Troponins negative Appreciate cardiology input Continue lisinopril: Increased to 40 mg daily Continue Toprol, started on Aldactone 25 mg daily continue Crestor 20 mg daily, Zetia 10 mg daily Plan to be started on Procardia XL 30 mg daily as per cardiology Consider adding Jardiance if needed Appreciate cardiology input Headache CT head:No evidence of acute intracranial pathology. Attributes to frequent falling due to Neuropathy Monitor Frequent falls Attributes to her neuropathy PT OT Fall precautions DM II HbA1c 8.7 Continue insulin while hospitalized Monitor BGs Glycemic pharmacy consulted H/O DVT and PE Reported PE in 2009 Reports DVT many years ago Was on Coumadin 6 years ago--discontinued due to falls Hypothyroidism Normal TSH Continue levothyroxine Hypertension Continue metoprolol, lisinopril Plan to be started on Procardia per Cards Monitor BP Hyperlipidemia Continue statin Depression Continue bupropion and sertraline DVT Px: Heparin SQ Code Status Full code Disposition PT/OT prior to discharge Admission and Anticipated Discharge Date Admission Date: March 19, 2023 Subjective Patient is seen and examined at bedside Reported chest pain associated with diaphoresis this morning Discussed with cardiology today Plan for cardiac catheterization today Still has minimal abdominal discomfort Had 2 loose bowel movements yesterday No other complaints Review of Systems Review of Systems: All systems reviewed & are unremarkable except as noted in Subjective Physical Exam Physical Exam: Physical Exam: Vitals signs as noted above General Appearance:Obese, no apparent distress Head: normocephalic, Atraumatic Eyes: normal inspection, EOMI Neck: supple, Trachea midline Respiratory/Chest: Decreased breath sounds, CTA, +Tender to palpate Cardiovascular: S1, S2, No murmur Abdomen/GI:Soft, RLQ/LLQ tender, Bowel sounds present Extremities/Musculoskeletal:normal inspection, 1+ edema Neurologic/Psych:AAOX3, grossly no focal neurological deficits Skin: normal color, warm Results & Data Results & Data Vital Signs (Past 12 Hours) Vital Signs Temp Pulse Pulse Pulse Resp BP Pulse Ox 03/20/23 15:00 66 18 145/100 H 95 03/20/23 14:45 67 18 169/85 H 96 03/20/23 14:35 68 18 160/79 H 97 03/20/23 13:50 67 20 163/107 H 96 03/20/23 11:35 36.5 C 63 18 147/71 H 97 03/20/23 10:27 03/20/23 07:37 56 L 03/20/23 07:37 36.4 C L 60 18 166/65 H 93 03/20/23 03:57 36.5 C 56 L 18 175/69 H 96 O2 Del Method 03/20/23 15:00 Room Air 03/20/23 14:45 Room Air 03/20/23 14:35 Room Air 03/20/23 13:50 Room Air 03/20/23 11:35 Room Air 03/20/23 10:27 Room Air 03/20/23 07:37 03/20/23 07:37 Room Air 03/20/23 03:57 Room Air Laboratory Results Short CBC 03/20/23 Range/Units 07:13 WBC 5.26 (4.8-10.8) K/ul Hgb 11.9 L (12.0-16.0) g/dl Hct 34.8 L (37.0-47.0) % Plt Count 82 L (130-400) K/uL BMP 03/20/23 07:13 Sodium 141 Potassium 3.9 Chloride 109 H Carbon Dioxide 27 BUN 9 Creatinine 0.63 Glucose 124 H Calcium 8.8 (1) Headache Headache chronicity pattern: acute headache Headache type: unspecified Intractability: intractable Qualified Code(s): R51.9 - Headache, unspecified
[2023-03-20 17:50] LABS: Partial Thromboplastin Ratio 1.3; Partial Thromboplastin Time 36.2 Seconds (21.0-31.0)
[2023-03-20] MEDS ORDERED: LANTUS PER UNIT CHARGE SQ SCH (21:00)
[2023-03-20] MEDS: SENNA 8.6 MG TAB PO SCH (21:53)
[2023-03-20] MEDS: HEPARIN SOD 5,000 UNIT/0.5 ML VIAL SQ SCH (21:53)
[2023-03-21] MEDS: LEVOTHYROXINE SODIUM 125 MCG TABLET PO SCH (05:48)
[2023-03-21] MEDS: ONDANSETRON INJ 2 MG/ML 2 ML VIAL IV PRN (05:54)
[2023-03-21 06:33] LABS: Hemoglobin 11.4 g/dl (12.0-16.0); Mean Corpuscular Hemoglobin 30.3 pg (25.0-34.0); Mean Corpuscular Hgb Conc 34.5 g/dL (32.0-36.0); Mean Corpuscular Volume 87.8 fL (80.0-100.0); Mean Platelet Volume 10.5 fL (9.4-12.4); Platelet Count 94 K/uL (130-400); RDW Coefficient of Variation 12.1 % (11.5-14.5); Red Blood Count 3.76 M/uL (4.20-5.40); White Blood Count 7.17 K/ul (4.8-10.8)
[2023-03-21 07:00] LABS: BUN Creatinine Ratio 15.9 (10-20); Calcium 9.3 mg/dl (8.6-10.3); Creatinine Clr Calc Pharmacy 74.9 ml/min; Est GFR (African American) 104.4 ml/min; Est GFR (Non-African American) 90.1 ml/min; Potassium 3.7 mmol/L (3.5-5.1)
--- NOTE | 2023-03-21 07:55 | Cardiology Progress Note ---
Date of Service March 21, 2023 Assessment & Plan (1) Chest pain: Plan: Symptoms of chest discomfort and shortness of breath accompanied by diaphoresis. Normal coronary arteries per cardiac catheterization 03/20/2023. Plan Please refer to attending physician note/addendum for plan of care. Admission and Anticipated Discharge Date Admission Date: March 19, 2023 Supervising Physician Co-Signing Physician Notes Attending Staff: Pt seen with [facility] staff. Concur with observations and plans. 52 minutes spent addressing challenges, educating and advancing daily plan of care. 68 yo woman presenting with: left-sided KIM x 2 weeks Consultation for: Chest Discomfort Hx of multiple falls In ED - N/V + diaphoresis Chest discomfort reported SBP - 150-160 mmHg ECHO - 06/2022 - LVEF 65-70%, Concentric LVH - no WMA - no significant valvular disease Bradycardia in ED Mild anemia Troponin negative x 3 Hx of CVA On Plavix No known CAD No known [place] hx ASCVD Risk Factors: Age DM HTN Hyperlipidemia - Last LDL 172 Events overnight: Coronary Angiography: no major epicardial stenosis- no complications Plans: * Epsidoes of chest pressure overnight + drenching diaphoresis - 03/20/2023 * EKG - non ischemic * Troponin - 3.6 * Suspicion for Unstable Angina * Referred for Coronary Angiography * No major epicardial stenosis noted * No complication of cath noted * HTN * Continue Lisinopril to 40 mg po per day * Continue Toprol XL 25 mg po per day (HR 59) * Continue Aldactone 25 mg po per day * Start Procardia XL 30 mg po per day * Hyperlipidemia - LDL - 67 * Continue Crestor 20 mg po per day * Hx of CVA - Continue Plavix 75 mg po per day * ECHO - LVEF 60%, Concentric LVH, Aortic Valve calcification sans . * + DM * Consider adding Jardiance to regimen - 10 mg po per day (+DM) * TSH WNL * Urine - no protein * W/U for abdominal complaints (ongoing) * Cardiology F/U with [facility] - 4 wk f/u * Please call back with any additional questions Bhavesh Liu Subjective 03/20/2023: Patient experienced symptoms concerning for unstable angina around 4 AM on 03/20. Ultimately underwent cardiac catheterization via the right radial artery revealing normal coronary arteries. 03/21/2023: Upon entrance into the room patient resting comfortably in bed. No acute cardiac concerns. No recurrent of chest discomfort/tightness or shortness of breath. No episodes of diaphoresis. No fever or chills. No lightheadedness or dizziness. Right radial cath site dressing clean dry and intact with palpable radial pulse. Fingers are warm, denies any numbness or tingling. Has not been able to have a bowel movement. States that she is passing very little gas. Telemetry revealing normal sinus rhythm with heart rates in the 60s to 70s. Blood pressures have been hypertensive but appear to be improving this morning. Review of Systems Review of Systems: All systems reviewed & are unremarkable except as noted in HPI & below Physical Exam Physical Exam: Awake, alert, responsive JVP 12 cmH20 S1S2 2/6 Systolic Murmur CTA B No C/C/E 2/2 radial pulse on the right Results & Data Vital Signs (Past 12 Hours) Vital Signs Temp Pulse Resp BP Pulse Ox O2 Del Method 03/21/23 03:15 36.7 C 64 20 166/76 H 96 Room Air 03/20/23 22:51 36.9 C 70 20 149/71 H 93 Room Air 03/20/23 22:57 Room Air Laboratory Results Cardiac Enzymes 03/20/23 Range/Units 07:13 Troponin I High Sens 3.6 (0-14) pg/ml Coagulation 03/20/23 03/20/23 Range/Units 11:02 16:54 PT 11.4 (9.0-12.0) Seconds APTT 24.4 36.2 H (21.0-31.0) Seconds Lipids 03/20/23 Range/Units 07:13 Triglycerides 162 H (0-150) mg/dl Cholesterol 126 (0-200) mg/dl HDL Cholesterol 31 mg/dl Cholesterol/HDL Ratio 4.1 (0-5) CBC 03/21/23 Range/Units 05:39 WBC 7.17 (4.8-10.8) K/ul RBC 3.76 L (4.20-5.40) M/uL Hgb 11.4 L (12.0-16.0) g/dl Hct 33.0 L (37.0-47.0) % Plt Count 94 L (130-400) K/uL Comprehensive Metabolic Panel 03/20/23 03/21/23 Range/Units 07:13 05:39 Sodium 141 139 (136-145) mmol/L Potassium 3.9 3.7 (3.5-5.1) mmol/L Chloride 109 H 106 (98-107) mmol/L Carbon Dioxide 27 26 (21-32) mmol/L BUN 9 11 (6-23) mg/dl Creatinine 0.63 0.69 (0.6-1.2) mg/dl Glucose 124 H 115 H (70-99(Fasting)) mg/dl Calcium 8.8 9.3 (8.6-10.3) mg/dl Intake and Output 03/20/23 03/21/23 03/21/23 22:59 06:59 14:59 Intake Total 520.267 / 2401.500 Balance 520.267 / 2400.500 Intake: IV 120.267 / 1121.500 Heparin Sodium/Dextrose 25,000 120.267 / 121.500 units In 500 ml @ 1,100 UNITS/ HR 22 mls/hr IV .[id number] [facility] Rx #:[id number] Oral 400 / 1280 Other: # Unmeasured Voids 1 1 Weight 74.8 kg Weight Measurement Method Built in [facility] Medications Administered Current Inpatient Medications Acetaminophen (Acetaminophen 325 Mg Tab) 650 mg PO Q4H PRN PRN Reason: Pain or Fever Stop: 04/18/23 02:18 Bupropion HCl (Bupropion Hcl 100 Mg Tablet) 100 mg PO DAILY@1200 [facility] Stop: 04/18/23 11:59 Last Admin: 03/20/23 12:49 Dose: 100 mg Bupropion HCl (Bupropion Hcl 100 Mg Tablet) 150 mg PO QAM [facility] Stop: 04/18/23 08:59 Last Admin: 03/20/23 08:15 Dose: 150 mg Clopidogrel Bisulfate (Clopidogrel Bisulfate 75 Mg Tab) 75 mg PO DAILY [facility]ENDA Stop: 04/18/23 08:59 Last Admin: 03/20/23 08:16 Dose: 75 mg Dextrose (Dextrose 50% 50 Ml Syringe) 25 - 50 ml IV UD PRN; Protocol PRN Reason: Hypoglycemia Protocol Stop: 04/18/23 02:18 Docusate Sodium (Docusate Sodium 100 Mg Cap) 100 mg PO BID [facility] Stop: 04/18/23 11:59 Last Admin: 03/20/23 21:52 Dose: 100 mg Famotidine (Famotidine 20 Mg Tab) 20 mg PO BID [facility] Stop: 04/18/23 08:59 Last Admin: 03/20/23 21:53 Dose: 20 mg Glucagon (Glucagon For Inj 1 Mg Vial) 1 mg SQ UD PRN; Protocol PRN Reason: Hypoglycemia Protocol Stop: 04/18/23 02:18 Glucose (Glucose 10 Tab/Tube) 4 - 8 tab PO UD PRN; Protocol PRN Reason: Hypoglycemia Treatment Stop: 04/18/23 02:18 Glucose (Glucose 40% Gel 15 Gm Tube) 15 - 30 gm PO UD PRN; Protocol PRN Reason: Hypoglycemia Protocol Stop: 04/18/23 02:18 Heparin Sodium (Porcine) (Heparin Sod 5,000 Unit/0.5 Ml Vial) 5,000 units SQ Q 12 BRENDA Stop: 04/19/23 20:59 Last Admin: 03/20/23 21:53 Dose: 5,000 units Insulin Aspart (Insulin Aspart Per Unit Charge) 0 units SC ACHS BRENDA Stop: 04/18/23 12:44 Last Admin: 03/20/23 21:53 Dose: 11 units Insulin Glargine (Lantus Per Unit Charge) 10 units SQ BID BRENDA Stop: 04/20/23 08:59 Levothyroxine Sodium (Levothyroxine Sodium 125 Mcg Tablet) 125 mcg PO DAILYBB [facility] Stop: 04/18/23 06:29 Last Admin: 03/21/23 05:48 Dose: 125 mcg Lisinopril (Lisinopril 40 Mg Tab) 40 mg PO DAILY BRENDA Stop: 04/19/23 08:59 Last Admin: 03/20/23 08:16 Dose: 40 mg Metoprolol Succinate (Metoprolol Succ 25mg Ext Rel Tab) 25 mg PO DAILY BRENDA Stop: 04/18/23 08:59 Last Admin: 03/20/23 08:16 Dose: 25 mg Miscellaneous (Carbohydrates For Hypoglycemia ) 15 - 30 gm PO UD PRN PRN Reason: Hypoglycemia Protocol Stop: 04/18/23 02:18 Miscellaneous Information (Pharmacy Glycemic Mgmt Consult) 1 each N/A UD PRN PRN Reason: Consult Stop: 04/18/23 02:18 Nifedipine (Nifedipine Extended Rel 30 Mg Tabcr) 30 mg PO QAM BRENDA Stop: 04/19/23 09:29 Last Admin: 03/20/23 09:49 Dose: Not Given Nitroglycerin (Nitroglycerin Sl 0.4 Mg/Tab Tab) 0.4 mg SL Q5M PRN PRN Reason: Chest Pain Stop: 04/18/23 02:18 Last Admin: 03/19/23 06:18 Dose: 0.4 mg Ondansetron HCl (Ondansetron Inj 2 Mg/Ml 2 Ml Vial) 4 mg IV Q6H PRN PRN Reason: Nausea Stop: 04/18/23 02:18 Last Admin: 03/21/23 05:54 Dose: 4 mg Polyethylene Glycol (Polyethylene (Miralax) 17 Gm Pack) 17 gm PO DAILY BRENDA Stop: 04/18/23 11:59 Last Admin: 03/20/23 08:15 Dose: 17 gm Rosuvastatin Calcium (Rosuvastatin Calcium 20 Mg Tab) 20 mg PO DAILY BRENDA Stop: 04/18/23 08:59 Last Admin: 03/20/23 08:16 Dose: 20 mg Sennosides (Senna 8.6 Mg Tab) 17.2 mg PO HS BRENDA Stop: 04/19/23 20:59 Last Admin: 03/20/23 21:53 Dose: 17.2 mg Sertraline HCl (Sertraline Hcl 100 Mg Tablet) 200 mg PO DAILY BRENDA Stop: 04/18/23 08:59 Last Admin: 03/20/23 08:17 Dose: 200 mg Spironolactone (Spironolactone 25 Mg Tab) 25 mg PO DAILY BRENDA Stop: 04/20/23 08:59 Vitamin D (Cholecalciferol 1,000 Units 25 Mcg Tab) 1,000 units PO DAILY BRENDA Stop: 04/18/23 08:59 Last Admin: 03/20/23 08:16 Dose: 1,000 units
[2023-03-21] MEDS: lisinopril 40 MG TAB PO SCH (08:45)
[2023-03-21] MEDS: POLYETHYLENE (MIRALAX) 17 GM PACK PO SCH (08:45)
[2023-03-21] MEDS: DOCUSATE SODIUM 100 MG CAP PO SCH ×2 (08:45→21:42)
[2023-03-21] MEDS: SPIRONOLACTONE 25 MG TAB PO SCH (08:48)
[2023-03-21] MEDS: CLOPIDOGREL BISULFATE 75 MG TAB PO SCH (08:48)
[2023-03-21] MEDS: CHOLECALCIFEROL 1,000 UNITS 25 MCG TAB PO SCH (08:48)
[2023-03-21] MEDS: buPROPion HCl 100 MG TABLET PO SCH ×2 (08:49→11:50)
[2023-03-21] MEDS: SERTRALINE HCL 100 MG TABLET PO SCH (08:49)
[2023-03-21] MEDS: ROSUVASTATIN CALCIUM 20 MG TAB PO SCH (08:49)
[2023-03-21] MEDS: HEPARIN SOD 5,000 UNIT/0.5 ML VIAL SQ SCH ×2 (08:51→21:43)
[2023-03-21] MEDS: INSULIN ASPART PER UNIT CHARGE SC SCH ×4 (08:51→20:47)
[2023-03-21] MEDS: FAMOTIDINE 20 MG TAB PO SCH ×2 (08:51→21:42)
[2023-03-21] MEDS: LANTUS PER UNIT CHARGE SQ SCH ×2 (08:52→21:43)
[2023-03-21] MEDS: METOPROLOL SUCC 25MG EXT REL TAB PO SCH (08:54)
[2023-03-21] MEDS ORDERED: LANTUS PER UNIT CHARGE SQ SCH (09:00)
--- NOTE | 2023-03-21 09:25 | XRay Report ---
KUB HISTORY: Abdominal discomfort. Fecal retention COMPARISON: KUB 03/20/2023. FINDINGS: The bowel gas pattern is unremarkable. There are no dilated loops of small bowel to suggest an obstruction. No renal calculi. No ureteral calculi. Calcifications in the deep pelvis likely rep resent phleboliths. These remain unchanged. Postoperative changes again noted within the left hip. Pr ior cholecystectomy. Small amount of well-formed stool seen within the colon. No pneumoperitoneum or pneumatosis. The spleen remains mildly enlarged. IMPRESSION: 1. Nonobstructive bowel gas pattern. 2. Small amount of well-formed stool seen within the colon. 3. Mild splenomegaly, unchanged. ACT 112: Negative or not required by law. Electronically signed by: Moses Pineda M.D. 03/21/2023 9:24 AM
[2023-03-21] MEDS ORDERED: POTASSIUM CHLORIDE CRTAB 20 MEQ TABCR PO STA (09:36)
[2023-03-21] MEDS ORDERED: MAGNESIUM OXIDE 400 MG TAB PO ONE (09:39)
--- NOTE | 2023-03-21 11:58 | Pharmacy Report ---
Pharmacy Glycemic Short Note 2 - Date of Service March 21, 2023 - Glycemic Short BSG Results (Last 24 hours): 03/20/23 03/20/23 03/20/23 12:25 16:33 20:10 Glucose POC Glucose 122 H 101 H 397 H* 03/21/23 03/21/23 03/21/23 00:18 05:39 07:05 Glucose 115 H POC Glucose 197 H 122 H 03/21/23 11:05 Glucose POC Glucose 173 H OUTPATIENT ANTIDIABETIC REGIMEN: * Lantus 20 units bid, trulicity 4.5 mg Qweekly ASSESSMENT: 03/21: * BSGs 125-122-101 and 397 mg/dL yesterday. Even with significant hyperglycemia last evening, BSG normalized to a fasting of 122 this morning. Looking at BSG trends, will tighten carb coverage for dinner only to try and prevent HS hyperglycemia. * Patient did have a diet resumed yesterday. 03/20: * BSGs within goal the last 24h: [phone]/dL. Received 20 units of basal and 5 units of bolus insulin yesterday. * Transitioned to NPO again today at lunch. * Will scale Lantus starting tonight at bedtime given inconsistent PO intake for a couple of days. No change to Novolog parameters. 03/19: * 68 year old with PMHx significant for DM2, hld, hypothyroidism, htn, depression, recurrent falls presenting with headaches, n/v and chest pain. BSGs elevated on admission in the 300s, given IV insulin bolus. NPO this morning, plan to start outpatient basal at ~50% dosing PLAN FOR INPATIENT GLYCEMIC CONTROL: * Hold outpatient oral diabetes medications * Basal insulin * Lantus 10 units BID * Bolus insulin * NovoLog per scale ACHS or Q6hrs while NPO * Goal Range: Low 120 mg/dL - High 150 mg/dL * Correction Factor: 30 mg/dL/unit * Nutritional / Prandial insulin per carb ratio of 1 unit per 15 (10 with dinner) grams CHO consumed
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
--- NOTE | 2023-03-21 15:25 | Hospitalist Progress Note ---
Date of Service March 21, 2023 Assessment & Plan (1) Headache: Plan: Patient is a 68 yr female with H/O Type 2 diabetes, hyperlipidemia, hypothyroidism, diabetic neuropathy, sleep apnea on CPAP, history of CVA, hypertension, female stress incontinence, osteoarthritis, postherpetic neuralgia, depression, anxiety, recurrent falls, history of PE and DVT presents with headaches nausea vomiting and chest pain. Abdominal Pain DD: Gastroparesis Fecal retention-POA Nonspecific enteritis-POA --CT ABD:No bowel obstruction is identified. Findings suggest a nonspecific enteritis, greatest involving the ileum. Correlate clinically. Cirrhotic liver morphology. Splenomegaly and a small volume of perihepatic ascites indicate portal hypertension. Question mild infiltration around the distal pancreas. Correlate with clinical laboratory findings for evidence of mild acute pancreatitis. Peripheral loculations of gas are seen involving the proximal stomach and likely represents trapped air. Pneumatosis is considered much less likely. Correlate clinically. --KUB:There are distended and gas-filled loops of small bowel. This nonspecific and developing small bowel obstruction is not excluded. Correlate clinically. Moderate fecal retention is seen throughout the colon. -- Will obtain stool studies if has recurrence of diarrhea --Normal lipase --Gentle IV fluids as needed -- Advance diet as tolerated -- Continue bowel regimen -- Given persistent abdominal pain, consulted GI Chest pain: Suspected unstable angina--ruled out Reproducible on exam Admits fall 1 week ago Likely musculoskeletal --S/P cardiac catheterization on 03/20/2023: No angiographically significant disease --CXR:No acute chest disease. --ECHO: No regional wall motion abnormality. Aortic valve appears trileaflet morphology. Moderate focal calcification of the noncoronary cusp and left coronary cusp. Mild mitral annular calcification. Moderate concentric LVH. EF 55 to 60%. -- Troponins negative Appreciate cardiology input Continue lisinopril: Increased to 40 mg daily Continue Toprol, started on Aldactone 25 mg daily continue Crestor 20 mg daily, Zetia 10 mg daily Plan to be started on Procardia XL 30 mg daily as per cardiology Consider adding Jardiance if needed Appreciate cardiology input Will need follow-up with cardiology upon discharge Headache CT head:No evidence of acute intracranial pathology. Attributes to frequent falling due to Neuropathy Monitor Frequent falls Attributes to her neuropathy PT OT eval Fall precautions DM II HbA1c 8.7 Continue insulin while hospitalized Monitor BGs Glycemic pharmacy consulted H/O DVT and PE Reported PE in 2009 Reports DVT many years ago Was on Coumadin 6 years ago--discontinued due to falls Hypothyroidism Normal TSH Continue levothyroxine Hypertension Continue metoprolol, lisinopril Plan to be started on Procardia per Cards Monitor BP Hyperlipidemia Continue statin Depression Continue bupropion and sertraline DVT Px: Heparin SQ Code Status Full code Disposition Home as able Admission and Anticipated Discharge Date Admission Date: March 19, 2023 Subjective Patient is seen and examined at bedside Reports persistent abdominal pain associated with nausea and constipation No chest pain today Denies any dyspnea, dizziness Tolerating current diet Review of Systems Review of Systems: All systems reviewed & are unremarkable except as noted in Subjective Physical Exam Physical Exam: Physical Exam: Vitals signs as noted above General Appearance:Obese, no apparent distress Head: normocephalic, Atraumatic Eyes: normal inspection, EOMI Neck: supple, Trachea midline Respiratory/Chest: Decreased breath sounds, CTA, +Tender to palpate Cardiovascular: S1, S2, No murmur Abdomen/GI:Soft, RLQ/LLQ tender, Bowel sounds present Extremities/Musculoskeletal:normal inspection, 1+ edema Neurologic/Psych:AAOX3, grossly no focal neurological deficits Skin: normal color, warm Results & Data Results & Data Vital Signs (Past 12 Hours) Vital Signs Temp Pulse Pulse Resp BP Pulse Ox O2 Del Method 03/21/23 12:21 36.5 C 65 18 139/65 98 Room Air 03/21/23 09:00 62 03/21/23 08:41 36.6 C 59 L 18 120/70 96 Room Air Laboratory Results Short CBC 03/21/23 Range/Units 05:39 WBC 7.17 (4.8-10.8) K/ul Hgb 11.4 L (12.0-16.0) g/dl Hct 33.0 L (37.0-47.0) % Plt Count 94 L (130-400) K/uL BMP 03/21/23 05:39 Sodium 139 Potassium 3.7 Chloride 106 Carbon Dioxide 26 BUN 11 Creatinine 0.69 Glucose 115 H Calcium 9.3 (1) Headache Headache chronicity pattern: acute headache Headache type: unspecified Intractability: intractable Qualified Code(s): R51.9 - Headache, unspecified
--- NOTE | 2023-03-21 18:05 | Electrocardiogram Report ---
Test Reason : Blood Pressure : / mmHG Vent. Rate : 064 BPM Atrial Rate : 064 BPM P-R Int : 166 ms QRS Dur : 136 ms QT Int : 462 ms P-R-T Axes : 049 037 039 degrees QTc Int : 476 ms Normal sinus rhythm Right bundle branch block Abnormal ECG When compared with ECG of 20-MAR-2023 10:06, No significant change was found Confirmed by Gui Manrique ([id number]) on 03/21/2023 6:05:00 PM Referred By: REFERRED SELF Confirmed By:Cooper Manrique
[2023-03-21] MEDS: SENNA 8.6 MG TAB PO SCH (21:42)
[2023-03-22] MEDS: LEVOTHYROXINE SODIUM 125 MCG TABLET PO SCH (05:32)
[2023-03-22 06:14] LABS: Hematocrit (blood only) 33.5 % (37.0-47.0); Hemoglobin 11.3 g/dl (12.0-16.0); Mean Corpuscular Hemoglobin 30.1 pg (25.0-34.0); Mean Corpuscular Hgb Conc 33.7 g/dL (32.0-36.0); Mean Corpuscular Volume 89.3 fL (80.0-100.0); Mean Platelet Volume 10.2 fL (9.4-12.4); Platelet Count 93 K/uL (130-400); RDW Coefficient of Variation 12.4 % (11.5-14.5); RDW Standard Deviation 40.1 fL (36.4-46.3); Red Blood Count 3.75 M/uL (4.20-5.40); White Blood Count 5.71 K/ul (4.8-10.8)
[2023-03-22 06:24] LABS: BUN Creatinine Ratio 17.4 (10-20); Calcium 9.1 mg/dl (8.6-10.3); Creatinine Clr Calc Pharmacy 60.4 ml/min; Est GFR (Non-African American) 69.9 ml/min; Potassium 4.4 mmol/L (3.5-5.1)
[2023-03-22] MEDS: INSULIN ASPART PER UNIT CHARGE SC SCH ×4 (08:01→21:32)
[2023-03-22] MEDS: LANTUS PER UNIT CHARGE SQ SCH ×2 (08:01→21:32)
[2023-03-22] MEDS: CLOPIDOGREL BISULFATE 75 MG TAB PO SCH (08:12)
[2023-03-22] MEDS: DOCUSATE SODIUM 100 MG CAP PO SCH ×2 (08:12→21:32)
[2023-03-22] MEDS: FAMOTIDINE 20 MG TAB PO SCH ×2 (08:12→21:32)
[2023-03-22] MEDS: HEPARIN SOD 5,000 UNIT/0.5 ML VIAL SQ SCH ×2 (08:12→21:32)
[2023-03-22] MEDS: ROSUVASTATIN CALCIUM 20 MG TAB PO SCH (08:13)
[2023-03-22] MEDS: SERTRALINE HCL 100 MG TABLET PO SCH (08:13)
[2023-03-22] MEDS: buPROPion HCl 100 MG TABLET PO SCH ×2 (08:13→11:47)
[2023-03-22] MEDS: METOPROLOL SUCC 25MG EXT REL TAB PO SCH (08:13)
[2023-03-22] MEDS: NIFEdipine EXTENDED REL 30 MG TABCR PO SCH (08:14)
[2023-03-22] MEDS: lisinopril 40 MG TAB PO SCH (08:14)
[2023-03-22] MEDS: POLYETHYLENE (MIRALAX) 17 GM PACK PO SCH (08:14)
[2023-03-22] MEDS: SPIRONOLACTONE 25 MG TAB PO SCH (08:14)
[2023-03-22] MEDS: CHOLECALCIFEROL 1,000 UNITS 25 MCG TAB PO SCH (08:15)
--- NOTE | 2023-03-22 09:06 | XRay Report ---
KUB CLINICAL HISTORY: Fecal retention. FINDINGS: 3 AP, portable, supine abdominal radiographs are compared to abdominal radiographs dated 03/21/2023 and correlated with abdominal CT dated 03/19/2023. Cholecystectomy clips are noted in the right upper quadrant. There is no radiographic evidence of bowel obstruction. No evidence of intraperitonea l free air is seen on these supine images. [id number] fecal retention is noted throughout the c olon and not significant changed. There are no abnormal abdominal calcifications. The skeletal struct ures are osteopenic. Postsurgical change is noted in the left proximal femur. IMPRESSION: Nonobstructed abdominal bowel gas pattern. Electronically signed by: Félix Cisneros M.D. 03/22/2023 9:04 AM
[2023-03-22] MEDS ORDERED: LACTULOSE SYRUP 20 GM/30 ML UDC PO ONE (09:14)
[2023-03-22] MEDS: LACTULOSE SYRUP 20 GM/30 ML UDC PO PRN ×2 (09:39→13:20)
--- NOTE | 2023-03-22 16:06 | Hospitalist Progress Note ---
Date of Service March 22, 2023 Assessment & Plan (1) Headache: Plan: Patient is a 68 yr female with H/O Type 2 diabetes, hyperlipidemia, hypothyroidism, diabetic neuropathy, sleep apnea on CPAP, history of CVA, hypertension, female stress incontinence, osteoarthritis, postherpetic neuralgia, depression, anxiety, recurrent falls, history of PE and DVT presents with headaches nausea vomiting and chest pain. Abdominal Pain DD: Gastroparesis Fecal retention-POA Nonspecific enteritis-POA --CT ABD:No bowel obstruction is identified. Findings suggest a nonspecific enteritis, greatest involving the ileum. Correlate clinically. Cirrhotic liver morphology. Splenomegaly and a small volume of perihepatic ascites indicate portal hypertension. Question mild infiltration around the distal pancreas. Correlate with clinical laboratory findings for evidence of mild acute pancreatitis. Peripheral loculations of gas are seen involving the proximal stomach and likely represents trapped air. Pneumatosis is considered much less likely. Correlate clinically. --KUB:There are distended and gas-filled loops of small bowel. This nonspecific and developing small bowel obstruction is not excluded. Correlate clinically. Moderate fecal retention is seen throughout the colon. -- Will obtain stool studies if has recurrence of diarrhea --Normal lipase --Received gentle IV fluids -- Tolerating regular diet -- Continue bowel regimen -- Appreciate GI input --Will add lactulose to bowel regimen. Offered enema--patient currently not interested Abnormal CT Concern for decompensated liver disease, portal hypertension Will need serological workup, FibroScan, possible liver biopsy as outpatient Appreciate GI input Needs follow-up with hepatology as outpatient in 1 month Chest pain: Suspected unstable angina--ruled out Reproducible on exam Admits fall 1 week ago Likely musculoskeletal --S/P cardiac catheterization on 03/20/2023: No angiographically significant disease --CXR:No acute chest disease. --ECHO: No regional wall motion abnormality. Aortic valve appears trileaflet morphology. Moderate focal calcification of the noncoronary cusp and left coronary cusp. Mild mitral annular calcification. Moderate concentric LVH. EF 55 to 60%. -- Troponins negative Appreciate cardiology input Continue lisinopril: Increased to 40 mg daily Continue Toprol, started on Aldactone 25 mg daily continue Crestor 20 mg daily, Zetia 10 mg daily Plan to be started on Procardia XL 30 mg daily as per cardiology Consider adding Jardiance if needed Appreciate cardiology input Will need follow-up with cardiology upon discharge BP elevated today, consider increasing Procardia to 30 mg twice a day if persistent elevated BP BP Variable, Monitor Headache CT head:No evidence of acute intracranial pathology. Attributes to frequent falling due to Neuropathy Monitor Frequent falls Attributes to her neuropathy PT OT eval Fall precautions DM II HbA1c 8.7 Continue insulin while hospitalized Monitor BGs Glycemic pharmacy consulted H/O DVT and PE Reported PE in 2009 Reports DVT many years ago Was on Coumadin 6 years ago--discontinued due to falls Hypothyroidism Normal TSH Continue levothyroxine Hypertension Continue metoprolol, lisinopril Plan to be started on Procardia per Cards Monitor BP Hyperlipidemia Continue statin Depression Continue bupropion and sertraline DVT Px: Heparin SQ Code Status Full code Disposition Home as able Admission and Anticipated Discharge Date Admission Date: March 19, 2023 Subjective Patient is seen and examined at bedside Tolerating current diet Reports nausea, abdominal pain, constipation No recurrence of chest pain Offers no other complaints Blood pressure variable Review of Systems Review of Systems: All systems reviewed & are unremarkable except as noted in Subjective Physical Exam Physical Exam: Physical Exam: Vitals signs as noted above General Appearance:Obese, no apparent distress Head: normocephalic, Atraumatic Eyes: normal inspection, EOMI Neck: supple, Trachea midline Respiratory/Chest: Decreased breath sounds, CTA, +Tender to palpate Cardiovascular: S1, S2, No murmur Abdomen/GI:Soft, RLQ/LLQ tender, Bowel sounds present Extremities/Musculoskeletal:normal inspection, 1+ edema Neurologic/Psych:AAOX3, grossly no focal neurological deficits Skin: normal color, warm Results & Data Results & Data Vital Signs (Past 12 Hours) Vital Signs Temp Pulse Pulse Resp BP Pulse Ox O2 Del Method 03/22/23 11:30 36.7 C 67 18 153/70 H 99 Room Air 03/22/23 09:00 63 03/22/23 07:40 36.7 C 63 18 181/74 H 97 Room Air Laboratory Results Short CBC 03/22/23 Range/Units 05:39 WBC 5.71 (4.8-10.8) K/ul Hgb 11.3 L (12.0-16.0) g/dl Hct 33.5 L (37.0-47.0) % Plt Count 93 L (130-400) K/uL BMP 03/22/23 05:39 Sodium 139 Potassium 4.4 Chloride 107 Carbon Dioxide 29 BUN 15 Creatinine 0.86 Glucose 143 H Calcium 9.1 (1) Headache Headache chronicity pattern: acute headache Headache type: unspecified Intractability: intractable Qualified Code(s): R51.9 - Headache, unspecified
[2023-03-22] MEDS: ONDANSETRON INJ 2 MG/ML 2 ML VIAL IV PRN (16:53)
[2023-03-22] MEDS: SENNA 8.6 MG TAB PO SCH (21:32)
[2023-03-23] MEDS: LEVOTHYROXINE SODIUM 125 MCG TABLET PO SCH (05:25)
[2023-03-23] MEDS: ONDANSETRON INJ 2 MG/ML 2 ML VIAL IV PRN (05:27)
[2023-03-23] MEDS: LANTUS PER UNIT CHARGE SQ SCH (08:32)
[2023-03-23] MEDS: INSULIN ASPART PER UNIT CHARGE SC SCH ×2 (08:32→12:05)
[2023-03-23] MEDS: SPIRONOLACTONE 25 MG TAB PO SCH (08:33)
[2023-03-23] MEDS: METOPROLOL SUCC 25MG EXT REL TAB PO SCH (08:34)
[2023-03-23] MEDS: buPROPion HCl 100 MG TABLET PO SCH ×2 (08:34→12:06)
[2023-03-23] MEDS: FAMOTIDINE 20 MG TAB PO SCH (08:34)
[2023-03-23] MEDS: CHOLECALCIFEROL 1,000 UNITS 25 MCG TAB PO SCH (08:34)
[2023-03-23] MEDS: ROSUVASTATIN CALCIUM 20 MG TAB PO SCH (08:35)
[2023-03-23] MEDS: lisinopril 40 MG TAB PO SCH (08:35)
[2023-03-23] MEDS: CLOPIDOGREL BISULFATE 75 MG TAB PO SCH (08:35)
[2023-03-23] MEDS: SERTRALINE HCL 100 MG TABLET PO SCH (08:35)
[2023-03-23] MEDS: NIFEdipine EXTENDED REL 30 MG TABCR PO SCH (08:36)
[2023-03-23] MEDS: DOCUSATE SODIUM 100 MG CAP PO SCH (08:36)
[2023-03-23] MEDS: POLYETHYLENE (MIRALAX) 17 GM PACK PO SCH (08:36)
[2023-03-23] MEDS: HEPARIN SOD 5,000 UNIT/0.5 ML VIAL SQ SCH (08:37)
[2023-03-23] MEDS ORDERED: BUTALBITAL/ACETAMIN/CAFFEINE TAB PO PRN (10:10)
[2023-03-23 11:49] VITALS: BP 154/93; TEMP 98.2; O2SAT 99
--- NOTE | 2023-03-23 12:46 | Hospitalist Progress Note ---
Date of Service March 23, 2023 Assessment & Plan (1) Headache: Plan: Patient is a 68 yr female with H/O Type 2 diabetes, hyperlipidemia, hypothyroidism, diabetic neuropathy, sleep apnea on CPAP, history of CVA, hypertension, female stress incontinence, osteoarthritis, postherpetic neuralgia, depression, anxiety, recurrent falls, history of PE and DVT presents with headaches nausea vomiting and chest pain. Abdominal Pain DD: Gastroparesis Fecal retention-POA Nonspecific enteritis-POA --CT ABD:No bowel obstruction is identified. Findings suggest a nonspecific enteritis, greatest involving the ileum. Correlate clinically. Cirrhotic liver morphology. Splenomegaly and a small volume of perihepatic ascites indicate portal hypertension. Question mild infiltration around the distal pancreas. Correlate with clinical laboratory findings for evidence of mild acute pancreatitis. Peripheral loculations of gas are seen involving the proximal stomach and likely represents trapped air. Pneumatosis is considered much less likely. Correlate clinically. --KUB:There are distended and gas-filled loops of small bowel. This nonspecific and developing small bowel obstruction is not excluded. Correlate clinically. Moderate fecal retention is seen throughout the colon. -- Will obtain stool studies if has recurrence of diarrhea --Normal lipase --Received gentle IV fluids -- Tolerating regular diet -- Continue bowel regimen -- Appreciate GI input -- Refused enema Had bowel movements Plan to discharge home today Abnormal CT Concern for decompensated liver disease, portal hypertension Will need serological workup, FibroScan, possible liver biopsy as outpatient Appreciate GI input Needs follow-up with hepatology as outpatient in 1 month Chest pain: Suspected unstable angina--ruled out Reproducible on exam Admits fall 1 week ago Likely musculoskeletal --S/P cardiac catheterization on 03/20/2023: No angiographically significant disease --CXR:No acute chest disease. --ECHO: No regional wall motion abnormality. Aortic valve appears trileaflet morphology. Moderate focal calcification of the noncoronary cusp and left coronary cusp. Mild mitral annular calcification. Moderate concentric LVH. EF 55 to 60%. -- Troponins negative Appreciate cardiology input Continue lisinopril: Increased to 40 mg daily Continue Toprol, started on Aldactone 25 mg daily continue Crestor 20 mg daily, Zetia 10 mg daily Plan to be started on Procardia XL 30 mg daily as per cardiology Consider adding Jardiance if needed Appreciate cardiology input Will need follow-up with cardiology upon discharge BP Variable, Monitor Headache CT head:No evidence of acute intracranial pathology. Attributes to frequent falling due to Neuropathy Monitor Frequent falls Attributes to her neuropathy PT OT eval Fall precautions DM II HbA1c 8.7 Continue insulin while hospitalized Monitor BGs Glycemic pharmacy consulted H/O DVT and PE Reported PE in 2010 Reports DVT many years ago Was on Coumadin 6 years ago--discontinued due to falls Hypothyroidism Normal TSH Continue levothyroxine Hypertension Continue metoprolol, lisinopril Plan to be started on Procardia per Cards Monitor BP Hyperlipidemia Continue statin Depression Continue bupropion and sertraline DVT Px: Heparin SQ Code Status Full code Disposition Home Admission and Anticipated Discharge Date Admission Date: March 19, 2023 Subjective Patient is seen and examined at bedside States having headache Had BM overnight Denies any chest pain, dizziness, nausea, vomiting Abdominal pain better No other complaints Plan to discharge home today Review of Systems Review of Systems: All systems reviewed & are unremarkable except as noted in Subjective Physical Exam Physical Exam: Physical Exam: Vitals signs as noted above General Appearance:Obese, no apparent distress Head: normocephalic, Atraumatic Eyes: normal inspection, EOMI Neck: supple, Trachea midline Respiratory/Chest: Decreased breath sounds, CTA Cardiovascular: S1, S2, No murmur Abdomen/GI:Soft, non tender, Bowel sounds present Extremities/Musculoskeletal:normal inspection, 1+ edema Neurologic/Psych:AAOX3, grossly no focal neurological deficits Skin: normal color, warm Results & Data Results & Data Vital Signs (Past 12 Hours) Vital Signs Temp Pulse Pulse Resp BP Pulse Ox O2 Del Method 03/23/23 11:30 36.8 C 69 18 154/93 H 99 Room Air 03/23/23 08:15 62 03/23/23 07:27 36.9 C 63 16 159/66 H 98 Room Air 03/23/23 03:18 36.3 C L 63 18 128/68 98 Room Air (1) Headache Headache chronicity pattern: acute headache Headache type: unspecified Intractability: intractable Qualified Code(s): R51.9 - Headache, unspecified
--- NOTE | 2023-03-23 12:58 | Discharge Summary ---
Date of Service March 23, 2023 Admission HPI Per Admitting Provider 68-year-old female past med significant for type 2 diabetes, hyperlipidemia, hypothyroidism, diabetic neuropathy, sleep apnea on CPAP, history of CVA, hypertension, female stress incontinence, osteoarthritis, postherpetic neuralgia, depression, anxiety, recurrent falls, history of PE and DVT presents with headaches nausea vomiting and chest pains. Patient states she is having headaches for last couple of weeks she thinks because of her frequent falls and hitting her head. Also has some neck pain and she had some neck stiffness in the morning but that resolved now. Today she was very diaphoretic nauseous and vomited. Today she also had some chest pain 6/10 in severity no radiation. Denies any fevers. Vision is okay. Mouth is dry. No abdominal pain. Normal bowel movements. She has burning micturition is for very long time. Patient states she also took her morning medications twice by mistake. Currently resting comfortably and hemodynamically stable Admission Exam Per Admitting Provider General- Not in distress Head- atraumatic Eyes- PERRL ENT- oropharynx clear Neck- supple, no JVD Lungs- clear to auscultation and percussion no added sounds Heart- regular rate and ; no murmur, no gallop. Abdomen- normal bowel sounds, soft, nontender, no distension Extremities- mild pretibial edema, no erythema seen Neuro- alert, oriented x 3; PERRL, no facial palsy; no dysarthria;non focal Skin- warm & dry Principal Diagnosis Chest pain Suspected liver disease Constipation Discharge Data Allergies Allergy/AdvReac Type Severity Reaction Status Date / Time adhesive Allergy Intermediate RASH Verified 06/01/22 16:49 Iodinated Contrast Media Allergy Intermediate burning Verified 01/27/22 19:38 and aching in veins latex Allergy Intermediate RASH Verified 06/01/22 16:49 Penicillins Allergy Intermediate n/v, rash Verified 06/01/22 16:49 hepatitis B virus vaccine Allergy Unknown Unknown Verified 06/01/22 16:49 Anesthetics - Amide Type - AdvReac Intermediate Vomiting Verified 06/01/22 16:49 Select A [Anesthetics - Amide Type] Anesthetics - Juju Type- AdvReac Intermediate Vomiting Verified 06/01/22 16:49 Parabens ketorolac AdvReac Intermediate ITCHING. Verified 01/27/22 19:38 tromethamine AdvReac Intermediate ITCHING. Verified 01/27/22 19:38 aspirin AdvReac Unknown CONTRAINDICATED---currently Verified 06/01/22 16:49 with gastric ulcer, per pt Consultations 03/18/23 23:34 ED Decision to Admit Stat 03/19/23 02:19 Consult Cardiology Routine 03/21/23 11:26 Consult Gastroenterology Routine Procedures Performed Operation Date: 03/20/23 14:00 Actual Procedures p Cineradiography w/Routine Exam - Shukri Marvin MD, PhD p Cath, Coronaries ONLY (no LV) - Shukri Marvin MD, PhD Laboratory Results WBC 5.71 K/ul (4.8-10.8) 03/22/23 05:39 RBC 3.75 M/uL (4.20-5.40) L 03/22/23 05:39 Hgb 11.3 g/dl (12.0-16.0) L 03/22/23 05:39 Hct 33.5 % (37.0-47.0) L 03/22/23 05:39 MCV 89.3 fL (80.0-100.0) 03/22/23 05:39 MCH 30.1 pg (25.0-34.0) 03/22/23 05:39 MCHC 33.7 g/dL (32.0-36.0) 03/22/23 05:39 RDW Std Deviation 40.1 fL (36.4-46.3) 03/22/23 05:39 RDW Coeff of Dia 12.4 % (11.5-14.5) 03/22/23 05:39 Plt Count 93 K/uL (130-400) L 03/22/23 05:39 MPV 10.2 fL (9.4-12.4) 03/22/23 05:39 Immature Gran % (Auto) 0.3 % 03/19/23 05:31 Neut % (Auto) 65.9 % 03/19/23 05:31 Lymph % (Auto) 27.3 % 03/19/23 05:31 [place] % (Auto) 5.4 % 03/19/23 05:31 Eos % (Auto) 0.6 % 03/19/23 05:31 Baso % (Auto) 0.5 % 08/07/23 05:31 Neut # (Auto) 4.38 K/uL (1.40-6.50) 03/19/23 05:31 Lymph # (Auto) 1.81 K/uL (1.2-3.4) 03/19/23 05:31 [place] # (Auto) 0.36 K/uL (0.11-0.59) 03/19/23 05:31 Eos # (Auto) 0.04 K/uL (0-0.50) 03/19/23 05:31 Baso # (Auto) 0.03 K/uL (0-0.2) 03/19/23 05:31 Immature Gran # (Auto) 0.02 K/uL (0.01-0.20) 03/19/23 05:31 PT 11.4 Seconds (9.0-12.0) 03/20/23 11:02 INR 1.0 (0.9-1.1) 03/20/23 11:02 APTT 36.2 Seconds (21.0-31.0) H 03/20/23 16:54 PTT Ratio 1.3 03/20/23 16:54 Activ Coag Time Kaolin 245 SECONDS (94-140) H 03/20/23 14:25 Sodium 139 mmol/L (136-145) 03/22/23 05:39 Potassium 4.4 mmol/L (3.5-5.1) 03/22/23 05:39 Chloride 107 mmol/L (98-107) 03/22/23 05:39 Carbon Dioxide 29 mmol/L (21-32) 03/22/23 05:39 Anion Gap 3 (3-11) 03/22/23 05:39 BUN 15 mg/dl (6-23) 03/22/23 05:39 Creatinine 0.86 mg/dl (0.6-1.2) 03/22/23 05:39 Est Cr Clr Drug Dosing 60.4 ml/min 03/22/23 05:39 Est GFR ( Amer) 81.0 ml/min 03/22/23 05:39 Est GFR (Non-Af Amer) 69.9 ml/min 03/22/23 05:39 BUN/Creatinine Ratio 17.4 (10-20) 03/22/23 05:39 Glucose 143 mg/dl (70-99(Fasting)) H 03/22/23 05:39 POC Glucose 144 mg/dl (70-99) H 03/23/23 11:17 Estimat Average Glucose 203 mg/dl 03/19/23 05:31 Hemoglobin A1c 8.7 % (4.5-5.6) H 03/19/23 05:31 Lactate 1.3 mmol/L (0.4-2.0) 03/18/23 20:15 Calcium 9.1 mg/dl (8.6-10.3) 03/22/23 05:39 Magnesium 1.8 mg/dl (1.7-2.4) 03/20/23 07:13 Total Bilirubin 0.6 mg/dl (0.2-1.0) 03/18/23 20:15 AST 21 U/L (13-39) 03/18/23 20:15 ALT 19 U/L (7-52) 03/18/23 20:15 Alkaline Phosphatase 118 U/L (34-104) H 03/18/23 20:15 Troponin I High Sens 3.6 pg/ml (0-14) 03/20/23 07:13 Total Protein 8.4 gm/dl (6.0-8.3) H 03/18/23 20:15 Albumin 4.7 gm/dl (3.4-5.0) 03/18/23 20:15 Globulin 3.7 gm/dl (2.5-4.0) 03/18/23 20:15 Albumin/Globulin Ratio 1.3 (0.9-2) 03/18/23 20:15 Triglycerides 162 mg/dl (0-150) H 03/20/23 07:13 Cholesterol 126 mg/dl (0-200) 03/20/23 07:13 LDL Cholesterol Direct 67 mg/dl 03/20/23 07:13 LDL Cholesterol, Calc 63 mg/dl 03/20/23 07:13 VLDL Cholesterol, Calc 32 mg/dl (0-30) H 03/20/23 07:13 HDL Cholesterol 31 mg/dl 03/20/23 07:13 Cholesterol/HDL Ratio 4.1 (0-5) 03/20/23 07:13 Lipase 23 U/L (11-82) 03/20/23 07:13 TSH 2.979 uIu/ml (0.300-4.500) 03/19/23 05:31 Urine Color Yellow 03/19/23 Unknown Urine Appearance Clear (Clear) 03/19/23 Unknown Urine pH 7.0 (4.5-7.5) 03/19/23 Unknown Ur Specific [place] 1.006 (1.000-1.030) 03/19/23 Unknown Urine Protein Negative (Negative) 03/19/23 Unknown Urine Glucose (UA) Negative (Negative) 03/19/23 Unknown Urine Ketones Negative (Negative) 03/19/23 Unknown Urine Blood Negative (Negative) 03/19/23 Unknown Urine Nitrite Negative (Negative) 03/19/23 Unknown Urine Bilirubin Negative (Negative) 03/19/23 Unknown Urine Urobilinogen Negative (Negative) 03/19/23 Unknown Ur Leukocyte Esterase Negative (Negative) 03/19/23 Unknown Impressions Chest X-Ray 03/18/23 19:57 XR chest 1V portable CLINICAL HISTORY: Chest pain, nonspecific TECHNIQUE: Single frontal radiograph of the chest was obtained. Comparison: Comparison is made to chest radiograph 07/07/2022 FINDINGS: Incidental note is made of old left humeral fracture. There is suggestion of old healed left rib fracture. Cardiomegaly is noted. The lungs are clear. No evidence of pleural effusion or pneumothorax. IMPRESSION: No acute chest disease. ACT 112: Negative or not required by law. Electronically signed by: Boaz Carolina M.D. 03/19/2023 7:[address] 03/18/23 19:57 Exam(s): CT HEAD Without Contrast EXAM: CT Head Without Intravenous Contrast CLINICAL HISTORY: Reason for exam: headache, vomiting. TECHNIQUE: Axial computed tomography images of the head/brain without intravenous contrast. CTDI is 37.61 mGy and DLP is 547.75 mGy-cm. Automated exposure control was utilized for the study. A dose lowering technique was utilized adhering to the principles of ALARA. COMPARISON: No relevant prior studies available. FINDINGS: Brain: Unremarkable. No hemorrhage. Mild to moderate nonspecific white matter changes. No edema. Ventricles: Unremarkable. No ventriculomegaly. Bones/joints: Hyperostosis frontalis interna. No acute fracture. Soft tissues: Bilateral lens replacements. Also tissue swelling about the right anterior scalp. Sinuses: Unremarkable as visualized. No acute sinusitis. Mastoid air cells: Unremarkable as visualized. No mastoid effusion. IMPRESSION: No evidence of acute intracranial pathology. Electronically signed by: Eliana Cespedes MD 03/18/23 21:53 PM Abdomen/Pelvis CT 03/19/23 12:11 CT SCAN OF THE ABDOMEN AND PELVIS WITHOUT IV CONTRAST CLINICAL HISTORY: Generalized abdominal pain. COMPARISON STUDY: Abdominal CT dated 07/04/2022. Abdominal radiograph dated 03/19/2023. TECHNIQUE: CT scan of the abdomen and pelvis is performed from the lung bases to the proximal femora. Images are reviewed in the axial, sagittal, and coronal planes. IV contrast was not administered for this examination. Note that the examination was performed in significantly suboptimal fashion without oral and IV contrast. A dose lowering technique was utilized adhering to the principles of ALARA. CT DOSE: 1233.42 mGy.cm FINDINGS: Lung bases: The heart is top normal in size and without pericardial effusion. There is calcification of the mitral annulus. There is diminished attenuation of the cardiac blood pool as compared to the myocardium suggesting anemia. The lung bases are clear noting bibasilar scarring/atelectasis. Liver: The unenhanced liver is cirrhotic in morphology and heterogeneous and attenuation. There is nodularity of the hepatic surface contour. There is no intrahepatic biliary ductal dilatation. Gallbladder: Surgically absent noting clips in the gallbladder fossa. Spleen: The spleen is enlarged measuring 15.7 cm in length. Pancreas: There is mild infiltration suggested around the distal pancreas. The unenhanced pancreas is otherwise grossly unremarkable. Adrenal glands: Unremarkable. Kidneys: The unenhanced kidneys are normal in size and without hydronephrosis. There are no renal calculi identified. There is no evidence of contour deforming renal mass lesion. Abdominal vasculature: The abdominal aorta is normal in course and caliber noting mild atherosclerotic calcification. Bowel: Peripheral loculations of gas are seen involving the proximal stomach There is no bowel obstruction. Moderate fecal retention is seen throughout the colon. There are loops of small bowel matted against the ventral abdominal wall, likely related to adhesions. Small bowel closely approximate a ventral hernia as seen on axial image #223. There is mild infiltration around loops of small bowel in the left midabdomen seen on image #165 comment no residual fluid seen around loops of small bowel in the pelvis. No focally thick-walled bowel loops are identified. There is no pneumatosis intestinalis or portal venous gas. The appendix is not visualized. Peritoneum: No intraperitoneal free air is identified. There is trace perihepatic and pelvic ascites. A midline surgical scar is noted. Lymphadenopathy: None. Pelvic viscera: The bladder is decompressed and grossly unremarkable. The uterus is surgically absent. No adnexal lesion is seen. Skeletal structures: The skeletal structures are osteopenic. There are chronic compression deformities of T11, L1, L3, and L4. Mild spondylosis is observed. No lytic or blastic lesions are seen. Chronic deformity and postsurgical change is noted in the left proximal femur. There are chronic/healed left-sided rib fract ures. IMPRESSION: 1. No bowel obstruction is identified. 2. Findings suggest a nonspecific enteritis, greatest involving the ileum. Correlate clinically. 3. Cirrhotic liver morphology. 4. Splenomegaly and a small volume of perihepatic ascites indicate portal hypertension. 5. Question mild infiltration around the distal pancreas. Correlate with clinical laboratory findings for evidence of mild acute pancreatitis. 6. Peripheral loculations of gas are seen involving the proximal stomach and likely represents trapped air. Pneumatosis is considered much less likely. Correlate clinically. 7. Additional findings as above. ACT 112: Negative or not required by law. Electronically signed by: Félix Cisneros M.D. 03/19/2023 2:07 PM KUB X-Ray 03/22/23 06:00 KUB CLINICAL HISTORY: Fecal retention. FINDINGS: 3 AP, portable, supine abdominal radiographs are compared to abdominal radiographs dated 03/21/2023 and correlated with abdominal CT dated 03/19/2023. Cholecystectomy clips are noted in the right upper quadrant. There is no radiographic evidence of bowel obstruction. No evidence of intraperitoneal free air is seen on these supine images. [id number] fecal retention is noted throughout the colon and not significant changed. There are no abnormal abdominal calcifications. The skeletal structures are osteopenic. Postsurgical change is noted in the left proximal femur. IMPRESSION: Nonobstructed abdominal bowel gas pattern. Electronically signed by: Félix Cisneros M.D. 03/22/2023 9:04 AM Ordered Studies 03/18/23 19:57 CT head/brain wo con Stat 03/19/23 12:11 CT Abd and Pelvis [CT abd pelvis wo con] Urgent 03/20/23 12:35 CL Cath Imgs for PACS use only Stat 03/20/23 14:02 CL Cath Imgs for PACS use only Stat Hospital Course (1) Headache: Patient is a 68 yr female with H/O Type 2 diabetes, hyperlipidemia, hypothyroidism, diabetic neuropathy, sleep apnea on CPAP, history of CVA, hypertension, female stress incontinence, osteoarthritis, postherpetic neuralgia, depression, anxiety, recurrent falls, history of PE and DVT presents with headaches nausea vomiting and chest pain. Abdominal Pain DD: Gastroparesis Fecal retention-POA Nonspecific enteritis-POA --CT ABD:No bowel obstruction is identified. Findings suggest a nonspecific enteritis, greatest involving the ileum. Correlate clinically. Cirrhotic liver morphology. Splenomegaly and a small volume of perihepatic ascites indicate portal hypertension. Question mild infiltration around the distal pancreas. Correlate with clinical laboratory findings for evidence of mild acute pancreatitis. Peripheral loculations of gas are seen involving the proximal stomach and likely represents trapped air. Pneumatosis is considered much less likely. Correlate clinically. --KUB:There are distended and gas-filled loops of small bowel. This nonspecific and developing small bowel obstruction is not excluded. Correlate clinically. Moderate fecal retention is seen throughout the colon. -- Will obtain stool studies if has recurrence of diarrhea --Normal lipase --Received gentle IV fluids -- Tolerating regular diet -- Continue bowel regimen -- Appreciate GI input -- Refused enema Had bowel movements Plan to discharge home today Abnormal CT Concern for decompensated liver disease, portal hypertension Will need serological workup, FibroScan, possible liver biopsy as outpatient Appreciate GI input Needs follow-up with hepatology as outpatient in 1 month Chest pain: Suspected unstable angina--ruled out Reproducible on exam Admits fall 1 week ago Likely musculoskeletal --S/P cardiac catheterization on 03/20/2023: No angiographically significant disease --CXR:No acute chest disease. --ECHO: No regional wall motion abnormality. Aortic valve appears trileaflet morphology. Moderate focal calcification of the noncoronary cusp and left coronary cusp. Mild mitral annular calcification. Moderate concentric LVH. EF 55 to 60%. -- Troponins negative Appreciate cardiology input Continue lisinopril: Increased to 40 mg daily Continue Toprol, started on Aldactone 25 mg daily continue Crestor 20 mg daily, Zetia 10 mg daily Plan to be started on Procardia XL 30 mg daily as per cardiology Consider adding Jardiance if needed Appreciate cardiology input Will need follow-up with cardiology upon discharge BP Variable, Monitor Headache CT head:No evidence of acute intracranial pathology. Attributes to frequent falling due to Neuropathy Monitor Frequent falls Attributes to her neuropathy PT OT eval Fall precautions DM II HbA1c 8.7 Continue insulin while hospitalized Monitor BGs Glycemic pharmacy consulted H/O DVT and PE Reported PE in 2009 Reports DVT many years ago Was on Coumadin 6 years ago--discontinued due to falls Hypothyroidism Normal TSH Continue levothyroxine Hypertension Continue metoprolol, lisinopril Plan to be started on Procardia per Cards Monitor BP Hyperlipidemia Continue statin Depression Continue bupropion and sertraline DVT Px: Heparin SQ Code Status Full code Disposition Home Total Time Total Time Spent Total Time Spent (In Minutes): 56 minutes Discharge Plan Discharge Items Patient Disposition: Home - Self-Care Reason For Visit: HEADACHE, N/V AND CHEST PAIN Discharge Diagnosis: Chest pain Suspected liver disease Constipation Condition on Discharge: Fair Activity: Per Instructions section Exercise/Sports: Gradually increase as tolerated Non-emergency contact: Primary Care Provider, Plumber and Gastroente rologist Call non-emergency contact if: you have any medication questions, your symptoms worsen, your pain is concerning for you and you have a fever Follow-up/Referrals: Adria Hilliard MD [Primary Care Provider] - (Date & Time 03/27/2023 1:40 PM Provider Adria Hilliard MD [facility] ) Diet: Carb Consistent or DM2 Addtl Attending Provider Instructions: Follow-up with your primary care physician Dr. 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 Sandhu for outpatient workup to further evaluate your liver disease as advised Follow-up with your medical practice administrator in 3-4 weeks as recommended Seek immediate medical attention if your symptoms reoccur or worsen Please take all medications as instructed on discharge list below. Please call if you have any questions or problems. You can reach a [facility] hospitalist on duty at [facility] 24 hours a day by calling [phone] Pending Studies at Discharge: No Stand-Alone Forms: My [facility] [employer], Smoking Cessation Medications and DC Order Prescriptions: New nifedipine [Procardia XL] 30 mg Tablet Extended Release 24hr 30 mg PO QAM Qty: 30 1RF polyethylene glycol 3350 [Miralax] 17 gram Powder In Packet 17 g PO DAILY Qty: 30 1RF spironolactone 25 mg Tablet 25 mg PO DAILY Qty: 30 1RF docusate sodium 100 mg Capsule 100 mg PO BID PRN (Reason: Constipation) Qty: 60 0RF lisinopril [Zestril] 40 mg Tablet 40 mg PO DAILY Qty: 30 1RF Continued sertraline 100 mg tablet 200 mg PO DAILY clopidogrel 75 mg tablet 75 mg PO DAILY bupropion HCl 100 mg tablet 100 mg PO UD Rx Instructions: 150mg in am and 100mg at noon famotidine 20 mg Tablet 20 mg PO BID levothyroxine 125 mcg Tablet 125 mcg PO DAILY metoprolol succinate 25 mg tablet extended release 24 hr 25 mg PO DAILY cholecalciferol (vitamin D3) [Vitamin D3] 25 mcg (1,000 unit) capsule 25 mcg PO DAILY rosuvastatin 20 mg tablet 20 mg PO DAILY insulin glargine [Lantus Solostar U-100 Insulin] 100 unit/mL (3 mL) insulin pen 20 unit SUBCUT BID Trulicity 4.5 mg/0.5 mL pen injector 4.5 mg SUBCUT WK Discontinued lisinopril 20 mg tablet 20 mg PO DAILY Discharge Orders: Discharge Order (Routine); Ordered 03/23/23 Ordered By: Sanchez Tilley/Other Patient Handouts: High Blood Sugar (Hyperglycemia), Managing Type 2 Diabetes, Special Foot Care for Diabetes Admission Data Admit Date/Time: 03/19/23 15:28 Attending Provider: Sanchez Garcia Admit Provider: Kamran Doe Primary Care Provider: Adria Hilliard Other Providers: Kamran Doe ; Vincent Butler ; Jackson Richardson ; Do Varner ; Michelle Doll ; Ness Arizmendi ; Annabelle Soares ; Cynthia,Aquiles ; Miguel Sandhu ; Shreya Rodríguez ; Lavern Walker ; Cory Mata ; Kathe Troy ; Sulma Pink ; Latha Day ; Mary Bejarano ; Yuliya Martinez ; Gary Borges ; Greg Yun ; Alma Mike ; Daniel Figueroa Jr
[2023-03-23 13:40] VITALS: PULSE 67
== END 2023-03-23 14:02 | disposition home or self-care (01) | DRG 287 ==
LOC: 2N 19:42 → ED 19:42 → 2N 03-19 01:42 → 2E 03-20 15:41
PROC: CLB.CCO (2023-03-20 14:00)

== ENCOUNTER 2024-01-31 18:30 | Inpatient (IN) ==
[2024-01-31 18:58] LABS: Appearance Urine Turbid (Clear); Bacteria Urine Automated None Seen (None Seen); Bilirubin Urine Negative (Negative); Blood Urine 2+ (Negative); Cast Urine Automated >20 /lpf (0-2); Color Urine Dark Yellow; Epithelial Cell Urine Auto 0-2 /hpf (0-2); Glucose Urine UA Negative (Negative); Ketones Urine 1+ (Negative); Leukocyte Esterase Urine 3+ (Negative); Nitrite Urine Negative (Negative); Protein Urine 1+ (Negative); Specific Gravity Urine 1.023 (1.000-1.030); Urobilinogen Urine Negative (Negative); WBC Urine Automated >50 /hpf (0-5); pH Urine 5.5 (4.5-7.5)
[2024-01-31 19:02] LABS: Basophils # (auto) 0.04 K/uL (0.00-0.20); Basophils % (auto) 0.3 %; Eosinophils # (auto) 0.04 K/uL (0.00-0.50); Eosinophils % (auto) 0.3 %; Hematocrit (blood only) 38.7 % (37.0-47.0); Hemoglobin 13.4 g/dl (12.0-16.0); Immature Granulocytes # (auto) 0.05 K/uL (0.01-0.20); Immature Granulocytes % (auto) 0.4 %; Lymphocytes # (auto) 1.72 K/uL (1.20-3.40); Lymphocytes % (auto) 14.8 %; Mean Corpuscular Hgb Conc 34.6 g/dL (32.0-36.0); Mean Corpuscular Volume 89.6 fL (80.0-100.0); Mean Platelet Volume 9.7 fL (9.4-12.4); Monocytes # (auto) 0.64 K/uL (0.11-0.59); Monocytes % (auto) 5.5 %; Neutrophils % (auto) 78.7 %; Platelet Count 149 K/uL (130-400); RDW Coefficient of Variation 12.2 % (11.5-14.5); Red Blood Count 4.32 M/uL (4.20-5.40); White Blood Count 11.59 K/ul (4.8-10.8)
[2024-01-31 19:14] LABS: Albumin Globulin Ratio 1.5 (0.9-2); Albumin Level 4.7 gm/dl (3.4-5.0); BUN Creatinine Ratio 21.9 (10-20); Bilirubin,Total 0.6 mg/dl (0.2-1.0); Calcium 9.6 mg/dl (8.6-10.3); Creatinine Clr Calc Pharmacy 49.2 ml/min; Est GFR (African American) 63.6 ml/min; Est GFR (Non-African American) 54.9 ml/min; Globulin 3.1 gm/dl (2.5-4.0); Potassium 4.1 mmol/L (3.5-5.1); Total Protein 7.8 gm/dl (6.0-8.3)
[2024-01-31] MEDS: cefTRIAXone SODIUM 2,000 MG/50 ML BAG IV STA (20:11)
[2024-01-31] MEDS ORDERED: MoRPHine SULFATE 4 MG/ML 1 ML CARP\\VIAL IV PRN (20:32)
[2024-01-31] MEDS: ONDANSETRON INJ 2 MG/ML 2 ML VIAL IV STA (20:37)
[2024-01-31] MEDS: MoRPHine SULFATE 4 MG/ML 1 ML CARP\\VIAL IV STA (20:37)
--- NOTE | 2024-01-31 20:38 | Emergency Department Note ---
Impression & Plan SBO (small bowel obstruction), Vomiting, Abdominal pain, Hernia, umbilical ED Provider Note NAME: RENAN VILLAGRAN AGE: 68 SEX: F : 1955 ARRIVES VIA: Walk-In INFORMANT: Patient, ED PROVIDER(S): Alvin Pedraza DO CHIEF COMPLAINT: Abdominal pain HPI: The patient is a 68-year-old female who presented to the emergency department for an evaluation of abdominal pain. The patient had abdominal pain and nausea over the course of the last few hours. She has a history of an abdominal hernia. She is been vomiting. The patient denies having any back pain. She denies having any dysuria or frequency. She was recently treated for urinary tract infection. The patient presented to the emergency department because of ongoing and worsening symptoms. She did not see her family doctor for the symptoms. ROS: See above HPI for pertinent positives & negatives. A total of 10 systems reviewed and were otherwise negative. PAST MEDICAL HISTORY: See Below PAST SURGICAL HISTORY: See Below FAMILY HISTORY: See Below SOCIAL HISTORY: See Below HOME MEDICATIONS: See Below ALLERGIES: See Below VITALS: See Below PHYSICAL EXAMINATION: GENERAL: Patient is awake and alert. She is anxious and appears to be uncomfortable. EYES: The conjunctivae are clear. The pupils are round and reactive. EARS, NOSE, MOUTH AND THROAT: The nose is without any evidence of any deformity. NECK: The neck is nontender and supple. RESPIRATORY: Normal respiratory effort is noted there is no evidence of wheezing rhonchi or rales CARDIOVASCULAR: Regular rate and rhythm noted there no murmurs rubs or gallops normal S1 normal S2. GASTROINTESTINAL: The abdomen was distended. There is an umbilical hernia to palpation. There was some overlying skin changes which were subtle. MUSCULOSKELETAL/EXTREMITIES: There is no evidence of gross deformity full range of motion is noted in the hips and shoulders. SKIN: There is no obvious evidence of any rash. There are no petechiae, pallor or cyanosis noted. NEUROLOGIC: Patient is awake alert and oriented x3 MEDICAL DECISION MAKING: The patient is a 68-year-old female who presented to the emergency department for an evaluation of upper abdominal pain nausea vomiting. The patient does have an umbilical hernia on physical exam but given her CAT scan report I do not feel this is causing her bowel obstruction. I discussed the patient's laboratory and radiographic studies with her. I discussed her condition with the on-call general surgeon. Patient was treated with IV fluids and IV pain medication in the emergency department. She was also treated with IV antibiotics for presumed urinary tract infection. She was feeling much better on subsequent reevaluation. I also discussed her condition with the on-call [facility] Hospitalist. Triage Nursing notes reviewed. Prior medical records reviewed Vital Signs: reviewed and remarkable for no significant abnormalities Differential diagnosis: Gastroenteritis, food borne illness, infections, appendicitis, diverticulitis, inflammatory bowel disease, obstruction, GI bleed, biliary pathology, volvulus, as well as other pathologies. ER treatment provided: See below Diagnostics interpreted by me: ECG: none Cardiac Monitoring: An order was placed for continuous cardiac monitoring. The monitor shows a rate of 90 bpm with sinus rhythm. Laboratory studies: As stated above and show below. Imaging studies: See below. Radiographic imaging was reviewed by myself Consultation(s): I discussed this case with Dr. Luevano who is on-call for the [facility] Hospitalist group. I discussed this case with Dr. Garza who is on-call for the general surgical group. She does recommend an NG tube at this time. After reviewing the images she does not feel that the area of the umbilicus is responsible for the hernia. Past Med/Surg History Problem List (Updated 02/01/24 @ 00:04 by Zaynab Rogers) Hernia, umbilical (Acute) Abdominal pain (Acute) Vomiting (Acute) SBO (small bowel obstruction) (Acute) Lumbar radiculopathy Degenerative disc disease, lumbar Chest pain Precordial chest pain (Acute) Ambulatory dysfunction (Acute) Vomiting (Acute) Headache (Acute) Accidental medication overdose (Acute) Hyperglycemia (Acute) Hemarthrosis involving knee joint Contusion of bone Intertrochanteric fracture of left femur Hypothyroidism Closed left humeral fracture (Acute) Acute pain of left hip (Acute) Contusion of rib on left side (Acute) Inability to ambulate due to hip (Acute) Status post fall (Acute) History of CVA (cerebrovascular accident) x2 1990s History of pulmonary embolism Ambulatory dysfunction Fall (Acute) Multiple fractures of ribs of right side (Acute) Fracture of toe of right foot (Acute) Cellulitis of leg, right (Acute) Fibula fracture Distal radius fracture, left Closed fracture of radial styloid (Acute) Neuropathy (Chronic) Osteoporosis (Chronic) 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 (Chronic) Hypothyroidism (Chronic) Anxiety (Chronic) Depression (Chronic) DVT (deep venous thrombosis) (Chronic) Dyslipidemia (Chronic) DM type 2 (diabetes mellitus, type 2) (Chronic) insulin dependent Hypertension (Chronic) Lumbar transverse process fracture (Chronic) Multiple rib fractures (Chronic) Thoracic compression fracture (Chronic) Medical History Cellulitis of great toe of right foot Cellulitis of foot, right Surgical History History of oophorectomy S/P left knee arthroscopy H/O dilation and curettage H/O abdominal surgery small bowel repair lysis of adhesions History of hysterectomy History of cholecystectomy History of tubal ligation Family History Father Lung cancer Diabetes Sister Stomach cancer Social History Smoking Status: Never smoker Tobacco Type: Cigarettes Second Hand Exposure: No; Hx Alcohol Use: Yes Hx Substance Use: No Preferred Language: Romanian Communication Ability: Effective Visual Impairment: No Limitations 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 Beliefs That Will Affect Care: None marital status: Current Living Situation: Spouse Current Living Situation Comment: with spouse How many Children do You have: 0 Other Information That Helps Us Care for You: No Feels Safe at Home: Yes Safety Concerns: Feels Safe At This Time Assistive Devices: Cane and Walker Allergies Allergies Allergy/AdvReac Type Severity Reaction Status Date / Time adhesive Allergy Intermediate RASH Verified 01/31/24 21:06 Iodinated Contrast Media Allergy Intermediate burning Verified 01/31/24 21:06 and aching in veins latex Allergy Intermediate RASH Verified 01/31/24 21:06 Penicillins Allergy Intermediate n/v, rash Verified 01/31/24 21:06 hepatitis B virus vaccine Allergy Unknown Unknown Verified 01/31/24 21:06 Anesthetics - Amide Type - AdvReac Intermediate Vomiting Verified 01/31/24 21:06 Select A [Anesthetics - Amide Type] Anesthetics - Juju Type- AdvReac Intermediate Vomiting Verified 01/31/24 21:06 Parabens ketorolac AdvReac Intermediate ITCHING. Verified 01/31/24 21:06 tromethamine AdvReac Intermediate ITCHING. Verified 01/31/24 21:06 aspirin AdvReac Unknown CONTRAINDICATED---currently Verified 01/31/24 21:06 with gastric ulcer, per pt Home Meds Home Medications Medication Instructions Recorded Confirmed bupropion HCl 100 mg tablet 100 mg PO QAM 03/19/23 01/31/24 cholecalciferol (vitamin D3) 25 25 mcg PO DAILY 03/19/23 01/31/24 mcg (1,000 unit) capsule (Vitamin D3) clopidogrel 75 mg tablet 75 mg PO DAILY 03/19/23 01/31/24 dulaglutide 4.5 mg/0.5 mL 4.5 mg subcut WK 03/19/23 01/31/24 subcutaneous pen injector (Trulicity) famotidine 20 mg tablet 20 mg PO BID 03/19/23 01/31/24 insulin glargine 100 unit/mL (3 20 unit subcut BID 03/19/23 01/31/24 mL) subcutaneous pen (Lantus Solostar U-100 Insulin) levothyroxine 125 mcg tablet 125 mcg PO DAILY 03/19/23 01/31/24 metoprolol succinate 25 mg 25 mg PO DAILY 03/19/23 01/31/24 tablet,extended release 24 hr rosuvastatin 20 mg tablet 20 mg PO DAILY 03/19/23 01/31/24 sertraline 100 mg tablet 200 mg PO DAILY 03/19/23 01/31/24 polyethylene glycol 3350 17 gram 17 g PO DAILY PRN Constipation 10/13/23 01/31/24 oral powder packet (Miralax) Previous Rx's Medication Instructions Recorded lisinopril 40 mg tablet (Zestril) 40 mg PO DAILY #30 tabs 03/23/23 nifedipine 30 mg tablet,extended 30 mg PO QAM #30 tabs 03/23/23 release 24 hr (Procardia XL) spironolactone 25 mg tablet 25 mg PO DAILY #30 tabs 03/23/23 tramadol 50 mg tablet 50 mg PO Q4H PRN pain #15 tabs 01/03/24 Results & Data (ED) Vital Signs Vital Signs - 24 hr 01/31/24 18:32 01/31/24 20:10 Temperature 36.9 C Temperature Source Temporal Artery Scan Pulse Rate 104 H Pulse Rate [Finger] 90 Respiratory Rate 16 21 Respiratory Effort / Characteristics Non-Labored Spontaneous Respiratory Depth Normal Blood Pressure 132/64 Blood Pressure [Right Arm] 123/75 Blood Pressure Mean 86 Blood Pressure Mean [Right Arm] 91 Pulse Oximetry 98 99 Oxygen Delivery Method Room Air Room Air Sepsis Recent Fever Within 48 Hours No Sepsis New/Unexplained Change in Mental Status No Sepsis Action Taken by Nursing No Action Required Home Medications Current Medication List: was personally reviewed by me Laboratory Data Attestation: I reviewed the patient's lab results. 01/31/24 18:42 01/31/24 18:42 Lab Results 01/31/24 01/31/24 Range/Units 18:40 18:42 WBC 11.59 H (4.8-10.8) K/ul RBC 4.32 (4.20-5.40) M/uL Hgb 13.4 (12.0-16.0) g/dl Hct 38.7 (37.0-47.0) % MCV 89.6 (80.0-100.0) fL MCH 31.0 (25.0-34.0) pg MCHC 34.6 (32.0-36.0) g/dL RDW Std Deviation 40.0 (36.4-46.3) fL RDW Coeff of Dia 12.2 (11.5-14.5) % Plt Count 149 (130-400) K/uL MPV 9.7 (9.4-12.4) fL Immature Gran % (Auto) 0.4 % Neut % (Auto) 78.7 % Lymph % (Auto) 14.8 % Foard % (Auto) 5.5 % Eos % (Auto) 0.3 % Baso % (Auto) 0.3 % Neut # (Auto) 9.10 H (1.40-6.50) K/uL Lymph # (Auto) 1.72 (1.20-3.40) K/uL Foard # (Auto) 0.64 H (0.11-0.59) K/uL Eos # (Auto) 0.04 (0.00-0.50) K/uL Baso # (Auto) 0.04 (0.00-0.20) K/uL Immature Gran # (Auto) 0.05 (0.01-0.20) K/uL Sodium 136 (136-145) mmol/L Potassium 4.1 (3.5-5.1) mmol/L Chloride 104 (98-107) mmol/L Carbon Dioxide 23 (21-32) mmol/L Anion Gap 9 (3-11) BUN 23 (6-23) mg/dl Creatinine 1.05 (0.6-1.2) mg/dl Est Cr Clr Drug Dosing 49.2 ml/min Est GFR ( Amer) 63.6 ml/min Est GFR (Non-Af Amer) 54.9 ml/min BUN/Creatinine Ratio 21.9 H (10-20) Glucose 169 H (70-99(Fasting)) mg/dl Calcium 9.6 (8.6-10.3) mg/dl Magnesium 2.0 (1.7-2.4) mg/dl Total Bilirubin 0.6 (0.2-1.0) mg/dl AST 21 (13-39) U/L ALT 12 (7-52) U/L Alkaline Phosphatase 88 (34-104) U/L Total Protein 7.8 (6.0-8.3) gm/dl Albumin 4.7 (3.4-5.0) gm/dl Globulin 3.1 (2.5-4.0) gm/dl Albumin/Globulin Ratio 1.5 (0.9-2) Lipase 37 (11-82) U/L TSH 7.295 H (0.300-4.500) uIu/ml Free T4 0.83 (0.61-1.60) ng/dl Urine Color Dark Yellow Urine Appearance Turbid A (Clear) Urine pH 5.5 (4.5-7.5) Ur Specific [place] 1.023 (1.000-1.030) Urine Protein 1+ H (Negative) Urine Glucose (UA) Negative (Negative) Urine Ketones 1+ H (Negative) Urine Blood 2+ H (Negative) Urine Nitrite Negative (Negative) Urine Bilirubin Negative (Negative) Urine Urobilinogen Negative (Negative) Ur Leukocyte Esterase 3+ H (Negative) Urine WBC (Auto) >50 H (0-5) /hpf Urine RBC (Auto) 11-20 H (0-2) /hpf U Hyaline Cast (Auto) >20 H (0-2) /lpf U Epithel Cells (Auto) 0-2 (0-2) /hpf Urine Bacteria (Auto) None Seen (None Seen) Administered Medications Sodium Chloride (Nss) 1,000 mls @ 80 mls/hr IV .[id number] ONE Stop: 02/01/24 09:43 Last Admin: 01/31/24 21:36 Dose: 80 mls/hr Documented By: MAURILIO Insulin Aspart (Insulin Aspart Per Unit Charge) 0 units SC ACHS BRENDA Stop: 03/01/24 23:20 Last Admin: 01/31/24 23:43 Dose: 2 units Documented By: ALEJANDRA Co-signed By: CHETNA Insulin Glargine (Lantus Per Unit Charge) 5 units SQ BID BRENDA Stop: 03/01/24 23:20 Last Admin: 01/31/24 23:43 Dose: 5 units Documented By: ALEJANDRA Co-signed By: AMANDAR Metoprolol Tartrate (Metoprolol Tartrate 1 Mg/Ml Vial) 2.5 mg IV Q6 BRENDA Stop: 03/02/24 00:00 Last Admin: 01/31/24 23:44 Dose: 2.5 mg Documented By: ALEJANDRA Morphine Sulfate (Morphine Sulfate 2 Mg/Ml Carp) 2 mg IV Q6H PRN PRN Reason: Pain Stop: 02/14/24 21:56 Last Admin: 01/31/24 23:51 Dose: 2 mg Documented By: ALEJANDRA Discontinued Medications Ceftriaxone Sodium (Rocephin) 2,000 mg in 50 mls @ 100 mls/hr IV NOW STA Stop: 01/31/24 20:22 Last Infusion: 01/31/24 20:43 Dose: Infused Documented By: Admin: 01/31/24 20:11 Dose: 100 mls/hr Documented By: MAURILIO Acetaminophen (Ofirmev) 1,000 mg in 100 mls @ 400 mls/hr IV Q8H PRN PRN Reason: pain/fever Stop: 02/03/24 21:10 Last Infusion: 01/31/24 21:50 Dose: Infused Documented By: Admin: 01/31/24 21:35 Dose: 400 mls/hr Documented By: MAURILIO Morphine Sulfate (Morphine Sulfate 4 Mg/Ml 1 Ml Carp\Vial) 4 mg IV NOW STA Stop: 01/31/24 20:33 Last Admin: 01/31/24 20:37 Dose: 4 mg Documented By: MAURILIO Ondansetron HCl (Ondansetron Inj 2 Mg/Ml 2 Ml Vial) 4 mg IV NOW STA Stop: 01/31/24 20:33 Last Admin: 01/31/24 20:37 Dose: 4 mg Documented By: MAURILIO Imaging Data Attestation: I personally reviewed and interpreted this imaging study as follows: My Impression: CT of the abdomen and pelvis was obtained in the emergency department. My interpretation is no free air, dilated loops of small bowel noted, final report below KUB was obtained in the emergency department after NG tube placement. The NG tube does appear to be in proper placement with fenestration below the diaphragm. NG tube can be used at this time. Final report pending. Radiologist's Impression: Abdomen/Pelvis CT 01/31/24 19:38 Exam(s): CT ABDOMEN + PELVIS Without Contrast EXAM: CT Abdomen and Pelvis Without Intravenous Contrast CLINICAL HISTORY: Reason for exam: abd pain and UTI SS. TECHNIQUE: Axial computed tomography images of the abdomen and pelvis without intravenous contrast. CTDI is 25.44 mGy and DLP is 1198.04 mGy-cm. Automated exposure control was utilized for the study. A dose lowering technique was utilized adhering to the principles of ALARA. COMPARISON: CT abdomen/pelvis on 10/13/2023 FINDINGS: Lung bases: Unremarkable. No mass. No consolidation. ABDOMEN: Liver: Hepatomegaly. Nodular contour of the liver may represent cirrhosis. Gallbladder and bile ducts: Prior cholecystectomy. No ductal dilation. Pancreas: Unremarkable. No ductal dilation. Spleen: Mild enlargement of the spleen. Adrenals: Unremarkable. No mass. Kidneys and ureters: Unremarkable. No hydronephrosis or stone. Stomach and bowel: Dilated fluid and gas-filled small bowel loops with probable transition point in the right lower quadrant, concerning for partial small bowel obstruction. Component of enteritis is not excluded. Mesenteric edema or fat stranding in the right lower quadrant. PELVIS: Appendix: Normal appendix. Bladder: Underdistended bladder limits evaluation. Please correlate with urinalysis if concerned for cystitis. Reproductive: Prior hysterectomy. ABDOMEN and PELVIS: Intraperitoneal space: Trace fluid in the right lower quadrant. Bones/joints: No acute fracture. No dislocation. Intramedullary prince and screw fixation of the left femur. Chronic compression deformities of L4, L3, L1, T11. Soft tissues: Unremarkable. Vasculature: Unremarkable. No abdominal aortic aneurysm. Lymph nodes: Unremarkable. No enlarged lymph nodes. IMPRESSION: Dilated fluid and gas-filled small bowel loops with probable transition point in the right lower quadrant, concerning for partial small bowel obstruction. Component of enteritis is not excluded. Mesenteric edema or fat stranding in the right lower quadrant. Electronically signed by: Aury Leal M.D. 01/31/24 20:50 PM Discharge Plan Visit Data Chief Complaint: Abdominal Pain ED Provider: Alvin Pedraza Discharge Problem: SBO (small bowel obstruction), Vomiting, Abdominal pain, Hernia, umbilical Patient Disposition: Being Evaluated by Hospitalist Discharge Instructions Interventions: ED Discharge Assessment Last Done: 01/31/24 22:53
--- NOTE | 2024-01-31 20:51 | CT Scan Report ---
Exam(s): CT ABDOMEN + PELVIS Without Contrast EXAM: CT Abdomen and Pelvis Without Intravenous Contrast CLINICAL HISTORY: Reason for exam: abd pain and UTI SS. TECHNIQUE: Axial computed tomography images of the abdomen and pelvis without intravenous contrast. CTDI is 25.44 mGy and DLP is 1198.04 mGy-cm. Automated exposure control was utilized for the study. A dose lowering technique was utilized adhering to the principles of ALARA. COMPARISON: CT abdomen/pelvis on 10/13/2023 FINDINGS: Lung bases: Unremarkable. No mass. No consolidation. ABDOMEN: Liver: Hepatomegaly. Nodular contour of the liver may represent cirrhosis. Gallbladder and bile ducts: Prior cholecystectomy. No ductal dilation. Pancreas: Unremarkable. No ductal dilation. Spleen: Mild enlargement of the spleen. Adrenals: Unremarkable. No mass. Kidneys and ureters: Unremarkable. No hydronephrosis or stone. Stomach and bowel: Dilated fluid and gas-filled small bowel loops with probable transition point in the right lower quadrant, concerning for partial small bowel obstruction. Component of enteritis is not excluded. Mesenteric edema or fat stranding in the right lower quadrant. PELVIS: Appendix: Normal appendix. Bladder: Underdistended bladder limits evaluation. Please correlate with urinalysis if concerned for cystitis. Reproductive: Prior hysterectomy. ABDOMEN and PELVIS: Intraperitoneal space: Trace fluid in the right lower quadrant. Bones/joints: No acute fracture. No dislocation. Intramedullary prince and screw fixation of the left femur. Chronic compression deformities of L4, L3, L1, T11. Soft tissues: Unremarkable. Vasculature: Unremarkable. No abdominal aortic aneurysm. Lymph nodes: Unremarkable. No enlarged lymph nodes. IMPRESSION: Dilated fluid and gas-filled small bowel loops with probable transition point in the right lower quadrant, concerning for partial small bowel obstruction. Component of enteritis is not excluded. Mesenteric edema or fat stranding in the right lower quadrant. Electronically signed by: Aury Leal M.D. 01/31/24 20:50 PM
[2024-01-31] MEDS: ACETAMINOPHEN 1,000 MG/100 ML VIAL IV PRN (21:35)
[2024-01-31] MEDS: SODIUM CHLORIDE 0.9% 1,000 ML IV ONE (21:36)
--- NOTE | 2024-01-31 21:53 | History & Physical Report ---
Date of Service January 31, 2024 Assessment & Plan (1) Abdominal pain: Plan: Multifactorial: Partial SBO Complicated UTI, no sepsis for now hypertension, stable hyperlipidemia, on statin Rx PE not on anticoagulation secondary to recurrent falls NAFLD cirrhosis, no overt decompensation DM 2 insulin requiring, well-controlled as of recent hemoglobin A1c of 6.4 generally 2023 hypothyroidism, TSH slightly elevated dementia as per records, patient mentating well Medical telemetry given IV beta-josh use while oral beta-josh on hold due to SBO requiring NGT decompression at the ER Bowel rest General surgery consult Re: SBO (ED provider already in touch with Dr. Mancera who recommended NGT decompression as per discussion.) Urine CS, ceftriaxone Basal bolus insulin adjusted for n.p.o. status, ISS BG goal 1 10-1 40, update hemoglobin A1c DVT prophylaxis. Lovenox subcu Full code Patient requesting updates providers. Mr. Dayne Fine, contact #[phone]. Text document was generated using [employer] voice recognition software. It may contain grammatical or spelling errors. Kindly contact undersigned for clarification of any documentation item in question. History of Present Illness Chief Complaint: Abdominal pain Primary Care Provider: Adria Hilliard MD History obtained from patient, family, and records. Medical history significant for hypertension, hyperlipidemia, PE not on anticoagulation secondary to recurrent falls, OTNE on CPAP, NAFLD cirrhosis, history of gastroparesis, DM 2 insulin requiring, hypothyroidism, mood disorder, dementia as per records, intention tremors. Last confinement March 2023 for chest pain. ACS ruled out. Patient woke up this morning with achy periumbilical abdominal pain. Painful bulge noted. Bilious emesis without chest pain, SOB. No fever, no chills. IV ceftriaxone administered at the ER for possible UTI. Patient brought to the ER by for evaluation. IV ceftriaxone administered at the ER for possible UTI. Medical History as above Surgical History : Oophorectomy, knee surgery, D&C, cholecystectomy, hysterectomy, BTL, adhesiolysis Family History : Heart disease, DM Personal/Social history : Non-smoker, no EtOH intake, retired [employer] employee Allergies Allergy/AdvReac Type Severity Reaction Status Date / Time adhesive Allergy Intermediate RASH Verified 01/31/24 21:06 Iodinated Contrast Media Allergy Intermediate burning Verified 01/31/24 21:06 and aching in veins latex Allergy Intermediate RASH Verified 01/31/24 21:06 Penicillins Allergy Intermediate n/v, rash Verified 01/31/24 21:06 hepatitis B virus vaccine Allergy Unknown Unknown Verified 01/31/24 21:06 Anesthetics - Amide Type - AdvReac Intermediate Vomiting Verified 01/31/24 21:06 Select A [Anesthetics - Amide Type] Anesthetics - Juju Type- AdvReac Intermediate Vomiting Verified 01/31/24 21:06 Parabens ketorolac AdvReac Intermediate ITCHING. Verified 01/31/24 21:06 tromethamine AdvReac Intermediate ITCHING. Verified 01/31/24 21:06 aspirin AdvReac Unknown CONTRAINDICATED---currently Verified 01/31/24 21:06 with gastric ulcer, per pt Home Medications Medication Instructions Recorded Confirmed Type bupropion HCl 100 mg tablet 100 mg PO QAM 03/19/23 01/31/24 History cholecalciferol (vitamin D3) 25 25 mcg PO DAILY 03/19/23 01/31/24 History mcg (1,000 unit) capsule (Vitamin D3) clopidogrel 75 mg tablet 75 mg PO DAILY 03/19/23 01/31/24 History dulaglutide 4.5 mg/0.5 mL 4.5 mg subcut WK 03/19/23 01/31/24 History subcutaneous pen injector (Trulicity) famotidine 20 mg tablet 20 mg PO BID 03/19/23 01/31/24 History insulin glargine 100 unit/mL (3 20 unit subcut BID 03/19/23 01/31/24 History mL) subcutaneous pen (Lantus Solostar U-100 Insulin) levothyroxine 125 mcg tablet 125 mcg PO DAILY 03/19/23 01/31/24 History metoprolol succinate 25 mg 25 mg PO DAILY 03/19/23 01/31/24 History tablet,extended release 24 hr rosuvastatin 20 mg tablet 20 mg PO DAILY 03/19/23 01/31/24 History sertraline 100 mg tablet 200 mg PO DAILY 03/19/23 01/31/24 History lisinopril 40 mg tablet (Zestril) 40 mg PO DAILY #30 tabs 03/23/23 01/31/24 Rx nifedipine 30 mg tablet,extended 30 mg PO QAM #30 tabs 03/23/23 01/31/24 Rx release 24 hr (Procardia XL) spironolactone 25 mg tablet 25 mg PO DAILY #30 tabs 03/23/23 01/31/24 Rx polyethylene glycol 3350 17 gram 17 g PO DAILY PRN Constipation 10/13/23 01/31/24 History oral powder packet (Miralax) tramadol 50 mg tablet 50 mg PO Q4H PRN pain #15 tabs 01/03/24 01/31/24 Rx Past Med/Surg History Problem List Hernia, umbilical (Acute) Abdominal pain (Acute) Vomiting (Acute) SBO (small bowel obstruction) (Acute) Lumbar radiculopathy Degenerative disc disease, lumbar Chest pain Precordial chest pain (Acute) Ambulatory dysfunction (Acute) Vomiting (Acute) Headache (Acute) Accidental medication overdose (Acute) Hyperglycemia (Acute) Hemarthrosis involving knee joint Contusion of bone Intertrochanteric fracture of left femur Hypothyroidism Closed left humeral fracture (Acute) Acute pain of left hip (Acute) Contusion of rib on left side (Acute) Inability to ambulate due to hip (Acute) Status post fall (Acute) History of CVA (cerebrovascular accident) x2 1990s History of pulmonary embolism Ambulatory dysfunction Fall (Acute) Multiple fractures of ribs of right side (Acute) Fracture of toe of right foot (Acute) Cellulitis of leg, right (Acute) Fibula fracture Distal radius fracture, left Closed fracture of radial styloid (Acute) Neuropathy (Chronic) Osteoporosis (Chronic) 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 (Chronic) Hypothyroidism (Chronic) Anxiety (Chronic) Depression (Chronic) DVT (deep venous thrombosis) (Chronic) Dyslipidemia (Chronic) DM type 2 (diabetes mellitus, type 2) (Chronic) insulin dependent Hypertension (Chronic) Lumbar transverse process fracture (Chronic) Multiple rib fractures (Chronic) Thoracic compression fracture (Chronic) Medical History Cellulitis of great toe of right foot Cellulitis of foot, right Surgical History History of oophorectomy S/P left knee arthroscopy H/O dilation and curettage H/O abdominal surgery small bowel repair lysis of adhesions History of hysterectomy History of cholecystectomy History of tubal ligation Family History Father Lung cancer Diabetes Sister Stomach cancer Social History Smoking Status: Never smoker Tobacco Type: Cigarettes Second Hand Exposure: No; Hx Alcohol Use: Yes Hx Substance Use: No Preferred Language: Georgian Communication Ability: Effective Visual Impairment: No Limitations Hearing Ability: Normal 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 Beliefs That Will Affect Care: None marital status: Current Living Situation: Spouse Current Living Situation Comment: with spouse How many Children do You have: 0 Other Information That Helps Us Care for You: No Feels Safe at Home: Yes Safety Concerns: Feels Safe At This Time Assistive Devices: Cane and Walker Review of Systems Review of Systems: As per HPI, all other systems reviewed and negative Physical Exam Physical Exam: GENERAL: Slightly uncomfortable, pleasant, no respiratory distress SKIN: Normal color, warm HEENT: [place] palpebral conjunctivae, no ptosis, dry buccal mucosa NECK : Supple, no tenderness CHEST : CTA, no tenderness HEART : RRR, no obvious murmurs ABDOMEN: Some distention, central tenderness EXTREMITIES : No LE swelling/tenderness, no other conspicuous deformities noted NEUROLOGIC : Coherent, no facial asymmetry, no other gross focality Results & Data Results & Data Vital Signs (Past 12 Hours) Vital Signs Temp Pulse Pulse Resp BP BP Pulse Ox 01/31/24 20:10 90 21 123/75 99 01/31/24 18:32 36.9 C 104 H 16 132/64 98 O2 Del Method 01/31/24 20:10 Room Air 01/31/24 18:32 Room Air Laboratory Results Laboratory Results WBC 11.59 K/ul (4.8-10.8) H 01/31/24 18:42 RBC 4.32 M/uL (4.20-5.40) 01/31/24 18:42 Hgb 13.4 g/dl (12.0-16.0) 01/31/24 18:42 Hct 38.7 % (37.0-47.0) 01/31/24 18:42 MCV 89.6 fL (80.0-100.0) 01/31/24 18:42 MCH 31.0 pg (25.0-34.0) 01/31/24 18:42 MCHC 34.6 g/dL (32.0-36.0) 01/31/24 18:42 RDW Std Deviation 40.0 fL (36.4-46.3) 01/31/24 18:42 RDW Coeff of Dia 12.2 % (11.5-14.5) 01/31/24 18:42 Plt Count 149 K/uL (130-400) 01/31/24 18:42 MPV 9.7 fL (9.4-12.4) 01/31/24 18:42 Immature Gran % (Auto) 0.4 % 01/31/24 18:42 Neut % (Auto) 78.7 % 01/31/24 18:42 Lymph % (Auto) 14.8 % 01/31/24 18:42 [place] % (Auto) 5.5 % 01/31/24 18:42 Eos % (Auto) 0.3 % 01/31/24 18:42 Baso % (Auto) 0.3 % 01/31/24 18:42 Neut # (Auto) 9.10 K/uL (1.40-6.50) H 01/31/24 18:42 Lymph # (Auto) 1.72 K/uL (1.20-3.40) 01/31/24 18:42 [place] # (Auto) 0.64 K/uL (0.11-0.59) H 01/31/24 18:42 Eos # (Auto) 0.04 K/uL (0.00-0.50) 01/31/24 18:42 Baso # (Auto) 0.04 K/uL (0.00-0.20) 01/31/24 18:42 Immature Gran # (Auto) 0.05 K/uL (0.01-0.20) 01/31/24 18:42 Sodium 136 mmol/L (136-145) 01/31/24 18:42 Potassium 4.1 mmol/L (3.5-5.1) 01/31/24 18:42 Chloride 104 mmol/L (98-107) 01/31/24 18:42 Carbon Dioxide 23 mmol/L (21-32) 01/31/24 18:42 Anion Gap 9 (3-11) 01/31/24 18:42 BUN 23 mg/dl (6-23) 01/31/24 18:42 Creatinine 1.05 mg/dl (0.6-1.2) 01/31/24 18:42 Est Cr Clr Drug Dosing 49.2 ml/min 01/31/24 18:42 Est GFR ( Amer) 63.6 ml/min 01/31/24 18:42 Est GFR (Non-Af Amer) 54.9 ml/min 01/31/24 18:42 BUN/Creatinine Ratio 21.9 (10-20) H 01/31/24 18:42 Glucose 169 mg/dl (70-99(Fasting)) H 01/31/24 18:42 Calcium 9.6 mg/dl (8.6-10.3) 01/31/24 18:42 Magnesium 2.0 mg/dl (1.7-2.4) 01/31/24 18:42 Total Bilirubin 0.6 mg/dl (0.2-1.0) 01/31/24 18:42 AST 21 U/L (13-39) 01/31/24 18:42 ALT 12 U/L (7-52) 01/31/24 18:42 Alkaline Phosphatase 88 U/L (34-104) 01/31/24 18:42 Total Protein 7.8 gm/dl (6.0-8.3) 01/31/24 18:42 Albumin 4.7 gm/dl (3.4-5.0) 01/31/24 18:42 Globulin 3.1 gm/dl (2.5-4.0) 01/31/24 18:42 Albumin/Globulin Ratio 1.5 (0.9-2) 01/31/24 18:42 Lipase 37 U/L (11-82) 01/31/24 18:42 Urine Color Dark Yellow 01/31/24 18:40 Urine Appearance Turbid (Clear) A 01/31/24 18:40 Urine pH 5.5 (4.5-7.5) 01/31/24 18:40 Ur Specific [place] 1.023 (1.000-1.030) 01/31/24 18:40 Urine Protein 1+ (Negative) H 01/31/24 18:40 Urine Glucose (UA) Negative (Negative) 01/31/24 18:40 Urine Ketones 1+ (Negative) H 01/31/24 18:40 Urine Blood 2+ (Negative) H 01/31/24 18:40 Urine Nitrite Negative (Negative) 01/31/24 18:40 Urine Bilirubin Negative (Negative) 01/31/24 18:40 Urine Urobilinogen Negative (Negative) 01/31/24 18:40 Ur Leukocyte Esterase 3+ (Negative) H 01/31/24 18:40 Urine WBC (Auto) >50 /hpf (0-5) H 01/31/24 18:40 Urine RBC (Auto) 11-20 /hpf (0-2) H 01/31/24 18:40 U Hyaline Cast (Auto) >20 /lpf (0-2) H 01/31/24 18:40 U Epithel Cells (Auto) 0-2 /hpf (0-2) 01/31/24 18:40 Urine Bacteria (Auto) None Seen (None Seen) 01/31/24 18:40 Impressions Abdomen/Pelvis CT 01/31/24 19:38 Exam(s): CT ABDOMEN + PELVIS Without Contrast EXAM: CT Abdomen and Pelvis Without Intravenous Contrast CLINICAL HISTORY: Reason for exam: abd pain and UTI SS. TECHNIQUE: Axial computed tomography images of the abdomen and pelvis without intravenous contrast. CTDI is 25.44 mGy and DLP is 1198.04 mGy-cm. Automated exposure control was utilized for the study. A dose lowering technique was utilized adhering to the principles of ALARA. COMPARISON: CT abdomen/pelvis on 10/13/2023 FINDINGS: Lung bases: Unremarkable. No mass. No consolidation. ABDOMEN: Liver: Hepatomegaly. Nodular contour of the liver may represent cirrhosis. Gallbladder and bile ducts: Prior cholecystectomy. No ductal dilation. Pancreas: Unremarkable. No ductal dilation. Spleen: Mild enlargement of the spleen. Adrenals: Unremarkable. No mass. Kidneys and ureters: Unremarkable. No hydronephrosis or stone. Stomach and bowel: Dilated fluid and gas-filled small bowel loops with probable transition point in the right lower quadrant, concerning for partial small bowel obstruction. Component of enteritis is not excluded. Mesenteric edema or fat stranding in the right lower quadrant. PELVIS: Appendix: Normal appendix. Bladder: Underdistended bladder limits evaluation. Please correlate with urinalysis if concerned for cystitis. Reproductive: Prior hysterectomy. ABDOMEN and PELVIS: Intraperitoneal space: Trace fluid in the right lower quadrant. Bones/joints: No acute fracture. No dislocation. Intramedullary prince and screw fixation of the left femur. Chronic compression deformities of L4, L3, L1, T11. Soft tissues: Unremarkable. Vasculature: Unremarkable. No abdominal aortic aneurysm. Lymph nodes: Unremarkable. No enlarged lymph nodes. IMPRESSION: Dilated fluid and gas-filled small bowel loops with probable transition point in the right lower quadrant, concerning for partial small bowel obstruction. Component of enteritis is not excluded. Mesenteric edema or fat stranding in the right lower quadrant. Electronically signed by: Aury Leal M.D. 01/31/24 20:50 PM
[2024-01-31 22:34] LABS: Thyroid Stimulating Hormone 7.295 uIu/ml (0.300-4.500)
[2024-01-31 23:09] LABS: T4 Free Thyroxine 0.83 ng/dl (0.61-1.60)
[2024-01-31] MEDS ORDERED: GLUCOSE 10 TAB/TUBE PO PRN (23:21)
[2024-01-31] MEDS ORDERED: DEXTROSE 50% 50 ML SYRINGE IV PRN (23:21)
[2024-01-31] MEDS ORDERED: GLUCOSE 40% GEL 15 GM TUBE PO PRN (23:21)
[2024-01-31] MEDS ORDERED: GLUCAGON FOR INJ 1 MG VIAL SQ PRN (23:21)
[2024-01-31] MEDS ORDERED: CARBOHYDRATES FOR HYPOGLYCEMIA PO PRN (23:21)
[2024-01-31] MEDS: INSULIN ASPART PER UNIT CHARGE SC SCH (23:43)
[2024-01-31] MEDS: LANTUS PER UNIT CHARGE SQ SCH (23:43)
[2024-01-31] MEDS: METOPROLOL TARTRATE 1 MG/ML VIAL IV SCH (23:44)
[2024-01-31] MEDS: MoRPHine SULFATE 2 MG/ML CARP IV PRN (23:51)
[2024-02-01] MEDS: ACETAMINOPHEN 1,000 MG/100 ML VIAL IV PRN (02:49)
[2024-02-01] MEDS: LEVOTHYROXINE SODIUM 125 MCG TABLET PO SCH (05:01)
[2024-02-01 07:30] LABS: Basophils # (auto) 0.02 K/uL (0.00-0.20); Basophils % (auto) 0.2 %; Eosinophils # (auto) 0.05 K/uL (0.00-0.50); Eosinophils % (auto) 0.6 %; Hematocrit (blood only) 33.1 % (37.0-47.0); Hemoglobin 11.5 g/dl (12.0-16.0); Immature Granulocytes # (auto) 0.02 K/uL (0.01-0.20); Immature Granulocytes % (auto) 0.2 %; Lymphocytes % (auto) 22.1 %; Mean Corpuscular Hemoglobin 31.4 pg (25.0-34.0); Mean Corpuscular Hgb Conc 34.7 g/dL (32.0-36.0); Mean Corpuscular Volume 90.4 fL (80.0-100.0); Mean Platelet Volume 10.1 fL (9.4-12.4); Monocytes % (auto) 6.1 %; Neutrophils # (auto) 5.75 K/uL (1.40-6.50); Neutrophils % (auto) 70.8 %; Platelet Count 96 K/uL (130-400); RDW Coefficient of Variation 12.1 % (11.5-14.5); RDW Standard Deviation 39.8 fL (36.4-46.3); Red Blood Count 3.66 M/uL (4.20-5.40); White Blood Count 8.14 K/ul (4.8-10.8)
--- NOTE | 2024-02-01 08:04 | XRay Report ---
KUB CLINICAL HISTORY: Enteric tube placement. FINDINGS: An AP, portable, upright view of the lower chest and upper abdomen is compared to study joanie ed 03/22/2023 and correlated with abdominal CT dated 01/31/2024. An enteric tube has been placed. The t ip projects below the diaphragm over the proximal stomach. Cholecystectomy clips are seen in the righ t upper quadrant. There is persistent gaseous distention of the small bowel loops suggesting obstruct ion. No intraperitoneal free air is seen below the diaphragm. There are no abnormal abdominal calcifi cations. The skeletal structures are osteopenic and appear intact. Spondylotic change is noted in the spine. The visualized lung parenchyma appears clear. IMPRESSION: 1. An enteric tube has been placed as above. 2. Distended bowel loops persist and likely represent obstruction. This was better assessed on today' s CT scan. Electronically signed by: Félix Cisneros M.D. 02/01/2024 8:02 AM
[2024-02-01 08:19] LABS: Calcium 8.7 mg/dl (8.6-10.3); Potassium 3.9 mmol/L (3.5-5.1)
[2024-02-01 08:24] LABS: Creatinine Clr Calc Pharmacy 74.2 ml/min; Est GFR (African American) 103.9 ml/min; Est GFR (Non-African American) 89.7 ml/min
--- NOTE | 2024-02-01 08:25 | Surgery Consultation ---
<Statement entered by Rakan Garza DO - 02/01/24 12:27> I have seen and examined this patient with the surgical PA. I agree with this plan. This case has been discussed with radiology and the front attendant surgeon for the weekend, Dr. Sotelo who will follow-up in the a.m. The point of partial obstruction does not appear to be involving the midline fascia and appears to be at the right lower quadrant as originally stated on the first CT read. Questioning whether or not an actual hernia is present versus weakened abdominal fascia at this location involving the previous lower midline scar. Date of Consultation February 01, 2024 Assessment & Plan (1) SBO (small bowel obstruction): This is a 68yF with a PMH of hypothyroidism, h/o CVA, on plavix, h/o PE and DVT, ambulatory dysfunction, 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, DM2, HTN, anxiety/depression, who presents to the [facility] ED on 01/31/24 with complaints of abdominal pain, nausea/vomiting that started yesterday. Due to her symptoms she presented to the ER for further evaluation. She underwent a CT a/p that revealed dilated fluid and gas-filled small bowel loops with probable transition point in the right lower quadrant, concerning for partial small bowel obstruction. Component of enteritis is not excluded. The patient states she has never had an SBO before. She tells me her past abdominal surgical history includes a hysterectomy, cholecystectomy, and multiple surgeries for lysis of adhesions? She states she is passing some flatus , but is still dealing with nausea and pain. Today's labs show WBC 8, Hbg 11.5, K 3.9. Vitals are stable. She has and NGT in place draining scant amount of fluid. On exam abdomen is soft with generalized discomfort to palpation, appears worse in the RLQ and bilateral lower abdomen. She has an umbilical hernia that feels reduced. For now we recommend a course of supportive care with NGT, IVF and bowel rest. We will follow along closely, but no plans for urgent surgical intervention indicated at this time. We will follow. History of Present Illness Attending Physician: Evi Aguirre MD History of Present Illness This is a 68yF with a PMH of hypothyroidism, h/o CVA, on plavix, h/o PE and DVT, ambulatory dysfunction, 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, DM2, HTN, anxiety/depression, who presents to the [facility] ED on 01/31/24 with complaints of abdominal pain. Patient states her abdominal pain started around 2pm yesterday. She states the pain started in her lower abdomen and radiates up into her chest, feeling like someone kicked her in the belly, rating it a >10/10 on the pain scale. This was associated with multiple bouts of nausea/vomiting. Due to her symptoms she presented to the ER for further evaluation. She underwent a CT a/p that revealed dilated fluid and gas-filled small bowel loops with probable transition point in the right lower quadrant, concerning for partial small bowel obstruction. Component of enteritis is not excluded. The patient states she has never had an SBO before, but tells me her past abdominal surgical history includes a hysterectomy, cholecystectomy, and surgeries for lysis of adhesions? She states she is passing some flatus, but is still dealing with nausea and pain. Last BM was yesterday around 1pm. Last took her plavix yesterday. She states she knows she has an umbilical hernia after she had some imaging performed last year but that its n ever caused her any issues. Had colonoscopy last year with no issues per patient. She notes some discomfort 2/2 NGT. Allergies Allergy/AdvReac Type Severity Reaction Status Date / Time adhesive Allergy Intermediate RASH Verified 01/31/24 21:06 Iodinated Contrast Media Allergy Intermediate burning Verified 01/31/24 21:06 and aching in veins latex Allergy Intermediate RASH Verified 01/31/24 21:06 Penicillins Allergy Intermediate n/v, rash Verified 01/31/24 21:06 hepatitis B virus vaccine Allergy Unknown Unknown Verified 01/31/24 21:06 Anesthetics - Amide Type - AdvReac Intermediate Vomiting Verified 01/31/24 21:06 Select A [Anesthetics - Amide Type] Anesthetics - Juju Type- AdvReac Intermediate Vomiting Verified 01/31/24 21:06 Parabens ketorolac AdvReac Intermediate ITCHING. Verified 01/31/24 21:06 tromethamine AdvReac Intermediate ITCHING. Verified 01/31/24 21:06 aspirin AdvReac Unknown CONTRAINDICATED---currently Verified 01/31/24 21:06 with gastric ulcer, per pt Home Medications Medication Instructions Recorded Confirmed Type bupropion HCl 100 mg tablet 100 mg PO QAM 03/19/23 01/31/24 History cholecalciferol (vitamin D3) 25 25 mcg PO DAILY 03/19/23 01/31/24 History mcg (1,000 unit) capsule (Vitamin D3) clopidogrel 75 mg tablet 75 mg PO DAILY 03/19/23 01/31/24 History dulaglutide 4.5 mg/0.5 mL 4.5 mg subcut WK 03/19/23 01/31/24 History subcutaneous pen injector (Trulicity) famotidine 20 mg tablet 20 mg PO BID 03/19/23 01/31/24 History insulin glargine 100 unit/mL (3 20 unit subcut BID 03/19/23 01/31/24 History mL) subcutaneous pen (Lantus Solostar U-100 Insulin) levothyroxine 125 mcg tablet 125 mcg PO DAILY 03/19/23 01/31/24 History metoprolol succinate 25 mg 25 mg PO DAILY 03/19/23 01/31/24 History tablet,extended release 24 hr rosuvastatin 20 mg tablet 20 mg PO DAILY 03/19/23 01/31/24 History sertraline 100 mg tablet 200 mg PO DAILY 03/19/23 01/31/24 History lisinopril 40 mg tablet (Zestril) 40 mg PO DAILY #30 tabs 03/23/23 01/31/24 Rx nifedipine 30 mg tablet,extended 30 mg PO QAM #30 tabs 03/23/23 01/31/24 Rx release 24 hr (Procardia XL) spironolactone 25 mg tablet 25 mg PO DAILY #30 tabs 03/23/23 01/31/24 Rx polyethylene glycol 3350 17 gram 17 g PO DAILY PRN Constipation 10/13/23 01/31/24 History oral powder packet (Miralax) tramadol 50 mg tablet 50 mg PO Q4H PRN pain #15 tabs 01/03/24 01/31/24 Rx Patient History Medical History Cellulitis of great toe of right foot Cellulitis of foot, right Surgical History History of oophorectomy S/P left knee arthroscopy H/O dilation and curettage H/O abdominal surgery small bowel repair lysis of adhesions History of hysterectomy History of cholecystectomy History of tubal ligation Family History Father Lung cancer Diabetes Sister Stomach cancer Social History Smoking Status: Never smoker Tobacco Type: Cigarettes Second Hand Exposure: No; Hx Alcohol Use: Yes Hx Substance Use: No Preferred Language: Swazi Communication Ability: Effective Visual Impairment: No Limitations Hearing Ability: Normal Materials Associate Required: No Beliefs That Will Affect Care: None marital status: Current Living Situation: Spouse Current Living Situation Comment: with spouse How many Children do You have: 0 Other Information That Helps Us Care for You: No Feels Safe at Home: Yes Safety Concerns: Feels Safe At This Time Assistive Devices: Cane and Walker Review of Systems Constitutional: + chills; no fever Respiratory: some shortness of breath likely secondary to abdominal pain Cardiovascular: no chest pain Gastrointestinal: + abdominal pain, + nausea, + vomiting a nd + constipation Physical Exam Physical Exam: awake/alert, no distress Respiratory: normal respiratory effort Gastrointestinal (Abdomen): Inspection/Auscultation: + abdominal surgical scar (midline infraumbilical); abdomen not distended Percussion/Palpation: + abdomen tender (diffuse discomfort throughout abdomen,worse in the RLQ and across lower abd) and abdomen soft + hernia felt in umbilicus, feels reduce d Results & Data Vital Signs (Past 12 Hours) Vital Signs Temp Pulse Pulse Resp BP BP Pulse Ox 02/01/24 07:23 97.3 F L 67 18 121/64 94 02/01/24 07:15 69 02/01/24 05:30 69 131/69 02/01/24 04:39 97.7 F 74 18 137/72 97 01/31/24 23:57 94 H 132/71 01/31/24 23:24 96 H 01/31/24 23:20 01/31/24 23:20 98.2 F 95 H 20 145/75 H 95 01/31/24 23:20 98.2 F 95 H 20 145/75 H 95 01/31/24 22:00 76 21 140/82 96 O2 Del Method 02/01/24 07:23 Room Air 02/01/24 07:15 02/01/24 05:30 02/01/24 04:39 Room Air 01/31/24 23:57 01/31/24 23:24 01/31/24 23:20 Room Air 01/31/24 23:20 Room Air 01/31/24 23:20 Room Air 01/31/24 22:00 Room Air Diagnostic Findings Exam(s): CT ABDOMEN + PELVIS Without Contrast EXAM: CT Abdomen and Pelvis Without Intravenous Contrast CLINICAL HISTORY: Reason for exam: abd pain and UTI SS. TECHNIQUE: Axial computed tomography images of the abdomen and pelvis without intravenous contrast. CTDI is 25.44 mGy and DLP is 1198.04 mGy-cm. Automated exposure control was utilized for the study. A dose lowering technique was utilized adhering to the principles of ALARA. COMPARISON: CT abdomen/pelvis on 10/13/2023 FINDINGS: Lung bases: Unremarkable. No mass. No consolidation. ABDOMEN: Liver: Hepatomegaly. Nodular contour of the liver may represent cirrhosis. Gallbladder and bile ducts: Prior cholecystectomy. No ductal dilation. Pancreas: Unremarkable. No ductal dilation. Spleen: Mild enlargement of the spleen. Adrenals: Unremarkable. No mass. Kidneys and ureters: Unremarkable. No hydronephrosis or stone. Stomach and bowel: Dilated fluid and gas-filled small bowel loops with probable transition point in the right lower quadrant, concerning for partial small bowel obstruction. Component of enteritis is not excluded. Mesenteric edema or fat stranding in the right lower quadrant. PELVIS: Appendix: Normal appendix. Bladder: Underdistended bladder limits evaluation. Please correlate with urinalysis if concerned for cystitis. Reproductive: Prior hysterectomy. ABDOMEN and PELVIS: Intraperitoneal space: Trace fluid in the right lower quadrant. Bones/joints: No acute fracture. No dislocation. Intramedullary prince and screw fixation of the left femur. Chronic compression deformities of L4, L3, L1, T11. Soft tissues: Unremarkable. Vasculature: Unremarkable. No abdominal aortic aneurysm. Lymph nodes: Unremarkable. No enlarged lymph nodes. IMPRESSION: Dilated fluid and gas-filled small bowel loops with probable transition point in the right lower quadrant, concerning for partial small bowel obstruction. Component of enteritis is not excluded. Mesenteric edema or fat stranding in the right lower quadrant. Electronically signed by: Aury Leal M.D. 01/31/24 20:50 PM PG Care Time/CCT Total # of Minutes Spent Total Time Spent with Patient: Total time spent is greater than 50% in coordination of care (as documented) at patient's floor/unit and/or counseling patient: Coding Level of Care Code 63498 INT INP/OBS CARE MIN Diagnoses SBO (small bowel obstruction) K56.609
[2024-02-01] MEDS ORDERED: MoRPHine SULFATE 2 MG/ML CARP IV PRN (08:45)
[2024-02-01] MEDS: ENOXAPARIN INJ 40 MG/0.4 ML SYR SQ SCH (08:49)
[2024-02-01] MEDS: PROMETHAZINE HCL 12.5 MG in SODIUM CHLORIDE 0.9% 50 ML IV PRN (09:06)
[2024-02-01] MEDS: CHLORASEPTIC (PHENOL) 1.4% SOLN 180 ML BTL MT PRN (09:07)
[2024-02-01] MEDS: lisinopril 40 MG TAB PO SCH (09:33)
[2024-02-01] MEDS: NIFEdipine EXTENDED REL 30 MG TABCR PO SCH (09:33)
[2024-02-01] MEDS: buPROPion HCl 100 MG TABLET PO SCH (09:33)
[2024-02-01] MEDS: FAMOTIDINE 20 MG TAB PO SCH (09:33)
[2024-02-01] MEDS: SERTRALINE HCL 100 MG TABLET PO SCH (09:33)
[2024-02-01] MEDS: ROSUVASTATIN CALCIUM 20 MG TAB PO SCH (09:33)
[2024-02-01] MEDS: SODIUM CHLORIDE 0.9% 1,000 ML IV SCH (09:48)
[2024-02-01] MEDS: MoRPHine SULFATE 2 MG/ML CARP IV PRN (11:00)
[2024-02-01] MEDS: D5W AND NSS 1,000 ML IV SCH (12:58)
--- NOTE | 2024-02-01 15:36 | Hospitalist Progress Note ---
Date of Service February 01, 2024 Assessment & Plan (1) SBO (small bowel obstruction): Plan: Presented with abdominal pain and nausea CT of the abdomen pelvis and KUB showed SBO History of multiple surgery in the past including history of Crohn's disease status post surgery Appreciate surgery input and recommendation Remains n.p.o. Will give IV fluid and IV pain medications as needed She has been passing gas but no bowel movement yet Will have KUB tomorrow Possible UTI Has been on intravenous ceftriaxone Urine culture is growing 3 different organisms Will continue antibiotic for about 3 days (2) Abdominal pain: Plan: Likely secondary to SBO (3) History of pulmonary embolism: Plan: History of pulmonary embolism Has not been on any anticoagulation due to recurrent fall and multiple fractures in the past (4) DM type 2 (diabetes mellitus, type 2): Plan: Basal bolus insulin adjusted for n.p.o. status, ISS BG goal 1 10-1 40, Has been running low blood sugar being on n.p.o. Started on dextrose in normal saline as long as she is on n.p.o. 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 Lovenox subcu Full code Patient requesting updates providers. Mr. Dayne Fine, contact #[phone]. Admission and Anticipated Discharge Date Admission Date: January 31, 2024 Subjective 02/01/2024 The patient was seen and examined in medical telemetry unit She has been complaining of abdominal discomfort and shortness of breath with minimal exertion Has nausea but no vomiting She has been passing gas Review of Systems Review of Systems: All systems reviewed and are unremarkable except as noted below Respiratory: Shortness of breath with minimal exertion Gastrointestinal: Abdominal discomfort without distention Physical Exam Physical Exam: Lying in bed very anxious and with some distress due to abdominal discomfort and shortness of breath Constitutional: + ill appearing and average body habitus Eyes: PERRL, conjunctivae normal, anicteric sclerae ENMT: external ear and nose normal, oropharynx normal Neck: trachea midline, no thyromegaly Respiratory: + respiratory distress (Minimal distress due to short of breath) Auscultation: + diminished lung sounds and + wheezes (Minimal wheezing); no crackles Cardiovascular: Rate/Rhythm: regular rate and regular rhythm; not tachycardic Heart Sounds: normal S1 and normal S2; no murmur Extremities: no edema Gastrointestinal (Abdomen): Inspection/Auscultation: abdomen not distended and + abnormal bowel sounds (Decreased and tingling) Percussion/Palpation: + abdomen tender (Mildly tender right lower quadrant) and abdomen soft Musculoskeletal: No acute arthritis involving any of the joints Neurologic: normal touch/pain/proprioception and moves all extremities; no focal motor deficits Psychiatric: A+Ox3, euthymic affect Lymphatic: no cervical or axillary lymphadenopathy Results & Data Results & Data Vital Signs (Past 12 Hours) Vital Signs Temp Pulse Pulse Resp BP BP Pulse Ox 02/01/24 14:27 64 02/01/24 12:58 64 136/72 02/01/24 12:33 69 144/73 H 02/01/24 11:40 36.4 C L 70 16 128/67 95 02/01/24 10:24 02/01/24 07:23 36.3 C L 67 18 121/64 94 02/01/24 07:15 69 02/01/24 05:30 69 131/69 02/01/24 04:39 36.5 C 74 18 137/72 97 O2 Del Method 02/01/24 14:27 02/01/24 12:58 02/01/24 12:33 02/01/24 11:40 Room Air 02/01/24 10:24 Room Air 02/01/24 07:23 Room Air 02/01/24 07:15 02/01/24 05:30 02/01/24 04:39 Room Air Laboratory Results Short CBC 01/31/24 02/01/24 Range/Units 18:42 06:41 WBC 11.59 H 8.14 (4.8-10.8) K/ul Hgb 13.4 11.5 L (12.0-16.0) g/dl Hct 38.7 33.1 L (37.0-47.0) % Plt Count 149 96 L (130-400) K/uL BMP 06/20/24 06/21/24 18:42 06:41 Sodium 136 138 Potassium 4.1 3.9 Chloride 104 108 H Carbon Dioxide 23 23 BUN 23 21 Creatinine 1.05 0.70 D Glucose 169 H 108 H Calcium 9.6 8.7 Liver Function 01/31/24 Range/Units 18:42 Total Bilirubin 0.6 (0.2-1.0) mg/dl AST 21 (13-39) U/L ALT 12 (7-52) U/L Alkaline Phosphatase 88 (34-104) U/L Albumin 4.7 (3.4-5.0) gm/dl Urine 01/31/24 Range/Units 18:40 Urine Color Dark Yellow Urine Appearance Turbid A (Clear) Urine pH 5.5 (4.5-7.5) Ur Specific [place] 1.023 (1.000-1.030) Urine Protein 1+ H (Negative) Urine Glucose (UA) Negative (Negative) Medications Administered Current Inpatient Medications Bupropion HCl (Bupropion Hcl 100 Mg Tablet) 100 mg PO QAM [facility] Stop: 03/02/24 08:59 Last Admin: 02/01/24 09:33 Dose: Not Given Dextrose (Dextrose 50% 50 Ml Syringe) 25 - 50 ml IV UD PRN; Protocol PRN Reason: Hypoglycemia Protocol Stop: 03/01/24 23:20 Enoxaparin Sodium (Enoxaparin Inj 40 Mg/0.4 Ml Syr) 40 mg SQ QAM [facility] Stop: 03/02/24 08:59 Last Admin: 02/01/24 08:49 Dose: 40 mg Famotidine (Famotidine 20 Mg Tab) 20 mg PO BID [facility] Stop: 03/02/24 08:59 Last Admin: 02/01/24 09:33 Dose: Not Given Glucagon (Glucagon For Inj 1 Mg Vial) 1 mg SQ UD PRN; Protocol PRN Reason: Hypoglycemia Protocol Stop: 03/01/24 23:20 Glucose (Glucose 40% Gel 15 Gm Tube) 15 - 30 gm PO UD PRN; Protocol PRN Reason: Hypoglycemia Protocol Stop: 03/01/24 23:20 Glucose (Glucose 10 Tab/Tube) 4 - 8 tab PO UD PRN; Protocol PRN Reason: Hypoglycemia Treatment Stop: 03/01/24 23:20 Promethazine HCl 12.5 mg/ (Sodium Chloride) 50.5 mls @ 202 mls/hr IV Q6H PRN PRN Reason: Nausea And Vomiting Stop: 03/01/24 21:56 Last Infusion: 02/01/24 09:34 Dose: Infused Acetaminophen (Ofirmev) 1,000 mg in 100 mls @ 400 mls/hr IV Q12H PRN PRN Reason: pain/fever Stop: 02/03/24 21:10 Last Infusion: 02/01/24 03:04 Dose: Infused Ceftriaxone Sodium (Rocephin) 2,000 mg in 50 mls @ 100 mls/hr IV Q24H [facility] Stop: 02/11/24 20:59 Dextrose/Sodium Chloride (D5w And Nss) 1,000 mls @ 80 mls/hr IV .[id number] [facility] Stop: 03/02/24 12:44 Last Admin: 02/01/24 12:58 Dose: 80 mls/hr Insulin Aspart (Insulin Aspart Per Unit Charge) 0 units SC ACHS [facility] Stop: 03/01/24 23:20 Last Admin: 02/01/24 12:32 Dose: Not Given Insulin Glargine (Lantus Per Unit Charge) 5 units SQ BID [facility] Stop: 03/01/24 23:20 Last Admin: 02/01/24 08:49 Dose: 5 units Levothyroxine Sodium (Levothyroxine Sodium 125 Mcg Tablet) 125 mcg PO DAILYBB [facility] Stop: 03/02/24 06:29 Last Admin: 02/01/24 05:01 Dose: Not Given Lisinopril (Lisinopril 40 Mg Tab) 40 mg PO DAILY [facility] Stop: 03/02/24 08:59 Last Admin: 02/01/24 09:33 Dose: Not Given Metoprolol Tartrate (Metoprolol Tartrate 1 Mg/Ml Vial) 2.5 mg IV Q6 [facility] Stop: 03/02/24 00:00 Last Admin: 02/01/24 12:33 Dose: 2.5 mg Miscellaneous (Carbohydrates For Hypoglycemia ) 15 - 30 gm PO UD PRN PRN Reason: Hypoglycemia Protocol Stop: 03/01/24 23:20 Morphine Sulfate (Morphine Sulfate 2 Mg/Ml Carp) 4 mg IV Q4H PRN PRN Reason: Pain Stop: 02/15/24 08:44 Last Admin: 02/01/24 11:00 Dose: 4 mg Nifedipine (Nifedipine Extended Rel 30 Mg Tabcr) 30 mg PO QAM [facility] Stop: 03/02/24 08:59 Last Admin: 02/01/24 09:33 Dose: Not Given Phenol (Chloraseptic (Phenol) 1.4% Soln 180 Ml Btl) 2 sprays MT Q2H PRN PRN Reason: sore throat and ngt irriation Stop: 03/02/24 08:24 Last Admin: 02/01/24 14:52 Dose: 2 sprays Rosuvastatin Calcium (Rosuvastatin Calcium 20 Mg Tab) 20 mg PO DAILY [facility] Stop: 03/02/24 08:59 Last Admin: 02/01/24 09:33 Dose: Not Given Sertraline HCl (Sertraline Hcl 100 Mg Tablet) 200 mg PO DAILY [facility] Stop: 03/02/24 08:59 Last Admin: 02/01/24 09:33 Dose: Not Given (4) DM type 2 (diabetes mellitus, type 2) Diabetes mellitus complication status: without complication Diabetes mellitus termite helper insulin use: with termite helper use Qualified Code(s): E11.9 - Type 2 diabetes mellitus without complications; Z79.4 - prison (current) use of insulin
[2024-02-01] MEDS ORDERED: Nursing to Pharmacy Communication ONE (16:22)
[2024-02-01] MEDS: INSULIN ASPART PER UNIT CHARGE SC SCH (17:17)
[2024-02-01] MEDS: cefTRIAXone SODIUM 2,000 MG/50 ML BAG IV SCH (19:46)
[2024-02-02 07:45] LABS: Basophils # (auto) 0.03 K/uL (0.00-0.20); Basophils % (auto) 0.6 %; Eosinophils # (auto) 0.07 K/uL (0.00-0.50); Eosinophils % (auto) 1.4 %; Hematocrit (blood only) 30.3 % (37.0-47.0); Hemoglobin 10.3 g/dl (12.0-16.0); Immature Granulocytes # (auto) 0.01 K/uL (0.01-0.20); Immature Granulocytes % (auto) 0.2 %; Lymphocytes # (auto) 1.73 K/uL (1.20-3.40); Lymphocytes % (auto) 34.7 %; Mean Corpuscular Volume 91.3 fL (80.0-100.0); Mean Platelet Volume 9.9 fL (9.4-12.4); Monocytes # (auto) 0.33 K/uL (0.11-0.59); Monocytes % (auto) 6.6 %; Neutrophils # (auto) 2.81 K/uL (1.40-6.50); Neutrophils % (auto) 56.5 %; Platelet Count 94 K/uL (130-400); RDW Coefficient of Variation 12.3 % (11.5-14.5); RDW Standard Deviation 40.7 fL (36.4-46.3); Red Blood Count 3.32 M/uL (4.20-5.40); White Blood Count 4.98 K/ul (4.8-10.8)
[2024-02-02 07:49] LABS: BUN Creatinine Ratio 23.9 (10-20); Calcium 8.4 mg/dl (8.6-10.3); Creatinine Clr Calc Pharmacy 77.9 ml/min; Est GFR (African American) 105.4 ml/min; Magnesium 1.8 mg/dl (1.7-2.4); Phosphorus 3.7 mg/dl (2.5-4.9); Potassium 3.9 mmol/L (3.5-5.1)
--- NOTE | 2024-02-02 08:41 | Surgery Progress Note ---
Date of Service February 02, 2024 Assessment & Plan (1) SBO (small bowel obstruction): Plan: Patient here w/ abdominal pain/nausea/vomiting with CT scan concerning for partial SBO vs enteritis WBC 4, Hbg 10. Vitals are stable NGT in place draining small amount of fluid She remains with abdominal discomfort and some nausea She is passing some flatus, no BMs since admit Will check up on KUB that has been ordered, but will continue ongoing supportive care for now with bowel rest, NGT, and IVF If no progress in the next day or so will consider SBFT early next week Admission and Anticipated Discharge Date Admission Date: January 31, 2024 Supervising Physician Co-Signing Physician Notes pnt S&E, labs and imaging reviewed, agree with above. SBO vs. enteritis. Still with nausea and pain, slightly improved. Minimal ng tube output. +flatus, no bm. Abd soft, mildly ttp diffusely, more upper midline. No incarcerated hernia palpable. kub with persistent obstruction, though air in colon. wbc normal. persistent partial sbo vs enteritis. Continue non operative management, consider contrasted study if no improvement in next few days. Subjective Patient reports ongoing abdominal pain and nausea despite NGT in place. She is passing some flatus. No documented BM's since admission. Physical Exam Physical Exam: awake/alert Gastrointestinal (Abdomen): Inspection/Auscultation: + abdomen distended (mild) Percussion/Palpation: + abdomen tender (generalized discomfort to palpation) and abdomen soft small amount of brown drainage in NGT canister Results & Data Vital Signs (Past 12 Hours) Vital Signs Temp Pulse Pulse Resp BP BP Pulse Ox 02/02/24 07:37 97.9 F 66 16 154/67 H 93 02/02/24 05:51 64 142/75 H 02/02/24 05:29 78 159/69 H 02/02/24 03:02 97.7 F 69 18 118/58 L 93 02/01/24 23:56 69 122/71 02/01/24 23:10 97.7 F 68 18 132/67 94 02/01/24 22:05 70 O2 Del Method 02/02/24 07:37 Room Air 02/02/24 05:51 02/02/24 05:29 02/02/24 03:02 Room Air 02/01/24 23:56 02/01/24 23:10 Room Air 02/01/24 22:05 PG Care Time/CCT Total # of Minutes Spent Total Time Spent with Patient: Total time spent is greater than 50% in coordination of care (as documented) at patient's floor/unit and/or counseling patient: Coding Level of Care Code 45679 SUB INP/OBS CARE 09/06MIN Diagnoses SBO (small bowel obstruction) K56.609
--- NOTE | 2024-02-02 09:06 | XRay Report ---
KUB CLINICAL HISTORY: Small bowel obstruction. FINDINGS: 2 AP, portable, supine views of the abdomen are compared to abdominal radiographs and CT da edwardo 01/31/2024. An enteric tube is unchanged in position. Cholecystectomy clips are seen in the right upper quadrant. There is persistent gaseous distention of the small bowel loops indication persistent obstruction. Small bowel loops measure up to 3.4 cm in diameter. No intraperitoneal free air is seen on these supine views. There are no abnormal abdominal calcifications. Phleboliths are noted in the pelvis. The skeletal structures are osteopenic and appear intact. Spondylotic change is noted in the spine. Postsurgical change is noted in the left proximal femur. The imaged lung bases appear clear. IMPRESSION: Persistent small bowel obstruction. Electronically signed by: Félix Cisneros M.D. 02/02/2024 9:03 AM
--- NOTE | 2024-02-02 13:36 | Hospitalist Progress Note ---
Date of Service February 02, 2024 Assessment & Plan (1) SBO (small bowel obstruction): Plan: Presented with abdominal pain and nausea CT of the abdomen pelvis and KUB showed SBO History of multiple surgery in the past including history of Crohn's disease status post surgery Appreciate surgery input and recommendation Remains n.p.o. Will give IV fluid and IV pain medications as needed She has been passing gas but no bowel movement yet KUB still showing intestinal obstruction Will continue current management of NG suction, n.p.o., IV fluid and IV analgesics and antiemetics Possible UTI Has been on intravenous ceftriaxone Urine culture is growing 3 different organisms Will continue antibiotic for about 3 days Denies any urinary symptoms and antibiotic will be discontinued after tomorrow's dose (2) Abdominal pain: Plan: Likely secondary to SBO (3) History of pulmonary embolism: Plan: History of pulmonary embolism Has not been on any anticoagulation due to recurrent fall and multiple fractures in the past (4) DM type 2 (diabetes mellitus, type 2): Plan: Basal bolus insulin adjusted for n.p.o. status, ISS BG goal 1 10-1 40, Has been running low blood sugar being on n.p.o. Started on dextrose in normal saline as long as she is on n.p.o. 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 Lovenox subcu Full code Patient requesting updates providers. Mr. Dayne Fine, contact #[phone]. Admission and Anticipated Discharge Date Admission Date: January 31, 2024 Subjective 02/01/2024 The patient was seen and examined in medical telemetry unit She has been complaining of abdominal discomfort and shortness of breath with minimal exertion Has nausea but no vomiting She has been passing gas 02/02/2024 The patient was seen and examined in medical telemetry unit She has been complaining of more abdominal pain today with nausea Denies any abdominal distention Has been passing gas but bowel is not moved Denies any fever and or chills Review of Systems Review of Systems: All systems reviewed and are unremarkable except as noted below Respiratory: Shortness of breath with minimal exertion Gastrointestinal: Abdominal discomfort without distention Physical Exam Physical Exam: Lying in bed very anxious and with some distress due to abdominal discomfort and shortness of breath Constitutional: + ill appearing and average body habitus Eyes: PERRL, conjunctivae normal, anicteric sclerae ENMT: external ear and nose normal, oropharynx normal Neck: trachea midline, no thyromegaly Respiratory: no respiratory distress (Minimal distress due to short of breath) Auscultation: no diminished lung sounds, no crackles and no wheezes (Minimal wheezing) Cardiovascular: Rate/Rhythm: regular rate and regular rhythm; not tachycardic Heart Sounds: normal S1 and normal S2; no murmur Extremities: no edema Gastrointestinal (Abdomen): Inspection/Auscultation: abdomen not distended and + abnormal bowel sounds (Decreased and tingling) Percussion/Palpation: + abdomen tender (Mildly tender all over) and abdomen soft Neurologic: normal touch/pain/proprioception and moves all extremities; no focal motor deficits Psychiatric: A+Ox3, euthymic affect Lymphatic: no cervical or axillary lymphadenopathy Results & Data Results & Data Vital Signs (Past 12 Hours) Vital Signs Temp Pulse Pulse Resp BP BP Pulse Ox 02/02/24 12:04 36.6 C 85 16 166/77 H 98 02/02/24 08:00 64 02/02/24 08:00 02/02/24 07:37 36.6 C 66 16 154/67 H 93 02/02/24 05:51 64 142/75 H 02/02/24 05:29 78 159/69 H 02/02/24 03:02 36.5 C 69 18 118/58 L 93 O2 Del Method 02/02/24 12:04 Room Air 02/02/24 08:00 02/02/24 08:00 Room Air 02/02/24 07:37 Room Air 02/02/24 05:51 02/02/24 05:29 02/02/24 03:02 Room Air Laboratory Results Short CBC 02/02/24 Range/Units 06:42 WBC 4.98 (4.8-10.8) K/ul Hgb 10.3 L (12.0-16.0) g/dl Hct 30.3 L (37.0-47.0) % Plt Count 94 L (130-400) K/uL BMP 02/02/24 06:42 Sodium 140 Potassium 3.9 Chloride 111 H Carbon Dioxide 26 BUN 16 Creatinine 0.67 Glucose 88 Calcium 8.4 L Medications Administered Current Inpatient Medications Bupropion HCl (Bupropion Hcl 100 Mg Tablet) 100 mg PO QAM [facility] Stop: 03/02/24 08:59 Last Admin: 02/02/24 08:36 Dose: Not Given Dextrose (Dextrose 50% 50 Ml Syringe) 25 - 50 ml IV UD PRN; Protocol PRN Reason: Hypoglycemia Protocol Stop: 03/01/24 23:20 Enoxaparin Sodium (Enoxaparin Inj 40 Mg/0.4 Ml Syr) 40 mg SQ QAM [facility] Stop: 03/02/24 08:59 Last Admin: 02/02/24 07:57 Dose: 40 mg Famotidine (Famotidine 20 Mg Tab) 20 mg PO BID [facility] Stop: 03/02/24 08:59 Last Admin: 02/02/24 08:36 Dose: Not Given Glucagon (Glucagon For Inj 1 Mg Vial) 1 mg SQ UD PRN; Protocol PRN Reason: Hypoglycemia Protocol Stop: 03/01/24 23:20 Glucose (Glucose 40% Gel 15 Gm Tube) 15 - 30 gm PO UD PRN; Protocol PRN Reason: Hypoglycemia Protocol Stop: 03/01/24 23:20 Glucose (Glucose 10 Tab/Tube) 4 - 8 tab PO UD PRN; Protocol PRN Reason: Hypoglycemia Treatment Stop: 03/01/24 23:20 Promethazine HCl 12.5 mg/ (Sodium Chloride) 50.5 mls @ 202 mls/hr IV Q6H PRN PRN Reason: Nausea And Vomiting Stop: 03/01/24 21:56 Last Infusion: 02/02/24 08:06 Dose: Infused Acetaminophen (Ofirmev) 1,000 mg in 100 mls @ 400 mls/hr IV Q12H PRN PRN Reason: pain/fever Stop: 02/03/24 21:10 Last Infusion: 02/01/24 03:04 Dose: Infused Ceftriaxone Sodium (Rocephin) 2,000 mg in 50 mls @ 100 mls/hr IV Q24H [facility] Stop: 02/11/24 20:59 Last Infusion: 02/01/24 20:16 Dose: Infused Dextrose/Sodium Chloride (D5w And Nss) 1,000 mls @ 100 mls/hr IV .Q10H [facility] Stop: 03/02/24 12:44 Last Admin: 02/02/24 12:48 Dose: 100 mls/hr Insulin Aspart (Insulin Aspart Per Unit Charge) 0 units SC Q6 [facility] Stop: 03/01/24 23:20 Last Admin: 02/02/24 12:48 Dose: Not Given Insulin Glargine (Lantus Per Unit Charge) 5 units SQ BID [facility] Stop: 03/01/24 23:20 Last Admin: 02/01/24 21:49 Dose: Not Given Levothyroxine Sodium (Levothyroxine Sodium 125 Mcg Tablet) 125 mcg PO DAILYBB [facility] Stop: 03/02/24 06:29 Last Admin: 02/02/24 05:28 Dose: Not Given Lisinopril (Lisinopril 40 Mg Tab) 40 mg PO DAILY [facility] Stop: 03/02/24 08:59 Last Admin: 02/02/24 08:36 Dose: Not Given Metoprolol Tartrate (Metoprolol Tartrate 1 Mg/Ml Vial) 2.5 mg IV Q6 [facility] Stop: 03/02/24 00:00 Last Admin: 02/02/24 12:49 Dose: 2.5 mg Miscellaneous (Carbohydrates For Hypoglycemia ) 15 - 30 gm PO UD PRN PRN Reason: Hypoglycemia Protocol Stop: 03/01/24 23:20 Morphine Sulfate (Morphine Sulfate 2 Mg/Ml Carp) 4 mg IV Q4H PRN PRN Reason: Pain Stop: 02/15/24 08:44 Last Admin: 02/02/24 11:16 Dose: 4 mg Nifedipine (Nifedipine Extended Rel 30 Mg Tabcr) 30 mg PO QAM [facility] Stop: 03/02/24 08:59 Last Admin: 02/02/24 08:36 Dose: Not Given Phenol (Chloraseptic (Phenol) 1.4% Soln 180 Ml Btl) 2 sprays MT Q2H PRN PRN Reason: sore throat and ngt irriation Stop: 03/02/24 08:24 Last Admin: 02/02/24 05:34 Dose: 2 sprays Rosuvastatin Calcium (Rosuvastatin Calcium 20 Mg Tab) 20 mg PO DAILY [facility] Stop: 03/02/24 08:59 Last Admin: 02/02/24 08:36 Dose: Not Given Sertraline HCl (Sertraline Hcl 100 Mg Tablet) 200 mg PO DAILY [facility] Stop: 03/02/24 08:59 Last Admin: 02/02/24 08:36 Dose: Not Given (4) DM type 2 (diabetes mellitus, type 2) Diabetes mellitus complication status: without complication Diabetes mellitus [facility] insulin use: with [facility] use Qualified Code(s): E11.9 - Type 2 diabetes mellitus without complications; Z79.4 - terminal operator (current) use of insulin
[2024-02-03 06:23] LABS: Basophils # (auto) 0.02 K/uL (0.00-0.20); Basophils % (auto) 0.4 %; Eosinophils # (auto) 0.08 K/uL (0.00-0.50); Eosinophils % (auto) 1.5 %; Hematocrit (blood only) 30.6 % (37.0-47.0); Hemoglobin 10.6 g/dl (12.0-16.0); Immature Granulocytes # (auto) 0.02 K/uL (0.01-0.20); Immature Granulocytes % (auto) 0.4 %; Lymphocytes # (auto) 1.38 K/uL (1.20-3.40); Lymphocytes % (auto) 25.6 %; Mean Corpuscular Hemoglobin 31.1 pg (25.0-34.0); Mean Corpuscular Hgb Conc 34.6 g/dL (32.0-36.0); Mean Corpuscular Volume 89.7 fL (80.0-100.0); Mean Platelet Volume 9.7 fL (9.4-12.4); Monocytes # (auto) 0.38 K/uL (0.11-0.59); Neutrophils # (auto) 3.52 K/uL (1.40-6.50); Neutrophils % (auto) 65.1 %; Platelet Count 82 K/uL (130-400); RDW Standard Deviation 38.6 fL (36.4-46.3); Red Blood Count 3.41 M/uL (4.20-5.40)
[2024-02-03 06:31] LABS: BUN Creatinine Ratio 15.8 (10-20); Calcium 8.5 mg/dl (8.6-10.3); Est GFR (African American) 111.2 ml/min; Est GFR (Non-African American) 95.9 ml/min; Potassium 3.6 mmol/L (3.5-5.1)
--- NOTE | 2024-02-03 09:34 | Surgery Progress Note ---
Date of Service February 03, 2024 Assessment & Plan (1) SBO (small bowel obstruction): Plan: pt report +flatus no BM NGT 200ml documented o/p yest. KUB ordered for this AM Poss. repeat CT scan with constrast in NGT pending KUB results No elevation in WBC VSS Will monitor Pt seen and examined with Dr. Sotelo Admission and Anticipated Discharge Date Admission Date: January 31, 2024 Supervising Physician Co-Signing Physician Notes pnt S&E, labs and imaging reviewed, agree with above. abd pain unclear etiol ogy, possible pSBO vs. enteritis. Still with nausea and pain, stable. Minimal ng tube output. +flatus, no bm. Abd soft, mildly ttp diffusely, more upper midline. No incarcerated hernia palpable. kub today pending wbc normal. persistent partial sbo vs enteritis. Continue non operative management, f/u kub, possible CT w/ oral (NG) Subjective Patient reports passing flatus no Bm Review of Systems Gastrointestinal: + abdominal pain; no vomiting Physical Exam Gastrointestinal (Abdomen): Percussion/Palpation: + abdomen tender and abdomen soft Results & Data Vital Signs (Past 12 Hours) Vital Signs Temp Pulse Pulse Resp BP BP Pulse Ox 02/03/24 07:42 82 02/03/24 07:36 97.9 F 66 16 152/84 H 100 02/03/24 06:27 63 02/03/24 06:03 71 143/67 H 02/03/24 03:03 98.1 F 71 18 143/67 H 94 02/03/24 02:48 88 02/03/24 00:42 72 124/65 02/02/24 23:17 72 02/02/24 23:10 98.2 F 72 18 124/65 95 02/02/24 22:32 O2 Del Method 02/03/24 07:42 02/03/24 07:36 Room Air 02/03/24 06:27 02/03/24 06:03 02/03/24 03:03 Room Air 02/03/24 02:48 02/03/24 00:42 02/02/24 23:17 02/02/24 23:10 Room Air 02/02/24 22:32 Room Air Results CBC w Diff Results: RBC 3.41 M/uL (4.20-5.40) L 02/03/24 WBC 5.40 K/ul (4.8-10.8) 02/03/24 Hgb 10.6 g/dl (12.0-16.0) L 02/03/24 Hct 30.6 % (37.0-47.0) L 02/03/24 MCV 89.7 fL (80.0-100.0) 02/03/24 MCH 31.1 pg (25.0-34.0) 02/03/24 MCHC 34.6 g/dL (32.0-36.0) 02/03/24 RDW Standard Deviation 38.6 fL (36.4-46.3) 02/03/24 RDW Coefficient of Variation 12.0 % (11.5-14.5) 02/03/24 Plt Count 82 K/uL (130-400) L 02/03/24 MPV 9.7 fL (9.4-12.4) 02/03/24 Neutrophils (%) (Auto) 65.1 % 02/03/24 Lymphocytes (%) (Auto) 25.6 % 02/03/24 Monocytes # (Auto) 0.38 K/uL (0.11-0.59) 02/03/24 Eosinophils # (Auto) 0.08 K/uL (0.00-0.50) 02/03/24 Immature Granulocyte % (Auto) 0.4 % 02/03/24 Neutrophils # (Auto) 3.52 K/uL (1.40-6.50) 02/03/24 Lymphocytes # (Auto) 1.38 K/uL (1.20-3.40) 02/03/24 Monocytes # (Auto) 0.38 K/uL (0.11-0.59) 02/03/24 Eosinophils # (Auto) 0.08 K/uL (0.00-0.50) 02/03/24 Basophils # (Auto) 0.02 K/uL (0.00-0.20) 02/03/24 Immature Granulocyte # (Auto) 0.02 K/uL (0.01-0.20) 4 Tear Drop Cells 1+ 07/03/22 PG Care Time/CCT Total # of Minutes Spent Total Time Spent with Patient: Total time spent is greater than 50% in coordination of care (as documented) at patient's floor/unit and/or counseling patient: Coding Level of Care Code 03981 SUB INP/OBS CARE Diagnoses SBO (small bowel obstruction) K56.609
--- NOTE | 2024-02-03 10:54 | XRay Report ---
KUB CLINICAL HISTORY: Small bowel obstruction. FINDINGS: 3 AP, portable, supine views of the abdomen are compared to abdominal radiographs dictated 02/02/2024 and correlated with abdominal CT dated 01/31/2024. An enteric tube is unchanged in position. Cholecystectomy clips are seen in the right upper quadrant. There is persistent gaseous distention o f the small bowel loops indication persistent obstruction. Gas and stool is seen in the colon and thi s may be partial. No intraperitoneal free air is seen on these supine views. There are no abnormal ab dominal calcifications. Phleboliths are noted in the pelvis. The skeletal structures are osteopenic a nd appear intact. Spondylotic change is noted in the spine. Postsurgical change is noted in the left proximal femur. The imaged lung bases appear clear. IMPRESSION: Persistent small bowel obstruction. Electronically signed by: Félix Cisneros M.D. 02/03/2024 10:53 AM
--- NOTE | 2024-02-03 15:38 | Hospitalist Progress Note ---
Date of Service February 03, 2024 Assessment & Plan (1) SBO (small bowel obstruction): Plan: Presented with abdominal pain and nausea CT of the abdomen pelvis and KUB showed SBO History of multiple surgery in the past including history of Crohn's disease status post surgery Appreciate surgery input and recommendation Remains n.p.o. Will give IV fluid and IV pain medications as needed She has been passing gas but no bowel movement yet KUB still showing intestinal obstruction Will continue current management of NG suction, n.p.o., IV fluid and IV analgesics and antiemetics Persisting abdominal pain but has been passing gas Repeat KUB did show persisting intestinal obstruction Repeat CT scan of the abdomen pelvis pending She has been feeling little better-will keep the NG tube and continue current n.p.o. status Possible UTI Has been on intravenous ceftriaxone Urine culture is growing 3 different organisms Will continue antibiotic for about 3 days Denies any urinary symptoms and antibiotic will be discontinued after tomorrow's dose (2) Abdominal pain: Plan: Likely secondary to SBO Continues to have more pain-will continue the current pain medications (3) History of pulmonary embolism: Plan: History of pulmonary embolism Has not been on any anticoagulation due to recurrent fall and multiple fractures in the past (4) DM type 2 (diabetes mellitus, type 2): Plan: Basal bolus insulin adjusted for n.p.o. status, ISS BG goal 1 10-1 40, Has been running low blood sugar being on n.p.o. Started on dextrose in normal saline as long as she is on n.p.o. 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 Lovenox subcu Full code Patient requesting updates providers. Mr. Dayne Fnie, contact #[phone]. Discussed with the Admission and Anticipated Discharge Date Admission Date: January 31, 2024 Subjective 02/01/2024 The patient was seen and examined in medical telemetry unit She has been complaining of abdominal discomfort and shortness of breath with minimal exertion Has nausea but no vomiting She has been passing gas 02/02/2024 The patient was seen and examined in medical telemetry unit She has been complaining of more abdominal pain today with nausea Denies any abdominal distention Has been passing gas but bowel is not moved Denies any fever and or chills 02/03/2024 The patient was seen and examined in medical telemetry unit in presence of the She has been having abdominal pain and passing gas KUB did not show any improvement of the obstruction and CT scan of the abdomen reports are pending Will keep NG tube for now and n.p.o. Review of Systems Review of Systems: All systems reviewed and are unremarkable except as noted below Respiratory: Shortness of breath with minimal exertion Gastrointestinal: Abdominal discomfort without distention Physical Exam Physical Exam: Lying in bed very anxious and with some distress due to abdominal discomfort and shortness of breath Constitutional: + ill appearing and average body habitus Eyes: PERRL, conjunctivae normal, anicteric sclerae ENMT: external ear and nose normal, oropharynx normal Neck: trachea midline, no thyromegaly Respiratory: no respiratory distress (Minimal distress due to short of breath) Auscultation: no diminished lung sounds, no crackles and no wheezes (Minimal wheezing) Cardiovascular: Rate/Rhythm: regular rate and regular rhythm; not tachycardic Heart Sounds: normal S1 and normal S2; no murmur Extremities: no edema Gastrointestinal (Abdomen): Inspection/Auscultation: normal bowel sounds (Improving and seems to be normal); abdomen not distended Percussion/Palpation: + abdomen tender (Mildly tender all over) and abdomen soft Neurologic: normal touch/pain/proprioception and moves all extremities; no focal motor deficits Psychiatric: A+Ox3, euthymic affect Lymphatic: no cervical or axillary lymphadenopathy Results & Data Results & Data Vital Signs (Past 12 Hours) Vital Signs Temp Pulse Pulse Resp BP BP BP 02/03/24 14:25 68 02/03/24 13:15 72 174/82 H 02/03/24 12:51 69 02/03/24 11:38 37.0 C 67 16 180/72 H 02/03/24 11:09 02/03/24 07:42 82 02/03/24 07:36 36.6 C 66 16 152/84 H 02/03/24 06:27 63 02/03/24 06:03 71 143/67 H Pulse Ox O2 Del Method 02/03/24 14:25 02/03/24 13:15 02/03/24 12:51 02/03/24 11:38 95 Room Air 02/03/24 11:09 Room Air 02/03/24 07:42 02/03/24 07:36 100 Room Air 02/03/24 06:27 02/03/24 06:03 Medications Administered Current Inpatient Medications Bupropion HCl (Bupropion Hcl 100 Mg Tablet) 100 mg PO QAM [facility] Stop: 03/02/24 08:59 Last Admin: 02/03/24 09:15 Dose: Not Given Dextrose (Dextrose 50% 50 Ml Syringe) 25 - 50 ml IV UD PRN; Protocol PRN Reason: Hypoglycemia Protocol Stop: 03/01/24 23:20 Enoxaparin Sodium (Enoxaparin Inj 40 Mg/0.4 Ml Syr) 40 mg SQ QAM [facility] Stop: 03/02/24 08:59 Last Admin: 02/03/24 08:45 Dose: 40 mg Famotidine (Famotidine 20 Mg Tab) 20 mg PO BID [facility] Stop: 03/02/24 08:59 Last Admin: 02/03/24 09:15 Dose: Not Given Glucagon (Glucagon For Inj 1 Mg Vial) 1 mg SQ UD PRN; Protocol PRN Reason: Hypoglycemia Protocol Stop: 03/01/24 23:20 Glucose (Glucose 40% Gel 15 Gm Tube) 15 - 30 gm PO UD PRN; Protocol PRN Reason: Hypoglycemia Protocol Stop: 03/01/24 23:20 Glucose (Glucose 10 Tab/Tube) 4 - 8 tab PO UD PRN; Protocol PRN Reason: Hypoglycemia Treatment Stop: 03/01/24 23:20 Promethazine HCl 12.5 mg/ (Sodium Chloride) 50.5 mls @ 202 mls/hr IV Q6H PRN PRN Reason: Nausea And Vomiting Stop: 03/01/24 21:56 Last Infusion: 02/02/24 20:38 Dose: Infused Acetaminophen (Ofirmev) 1,000 mg in 100 mls @ 400 mls/hr IV Q12H PRN PRN Reason: pain/fever Stop: 02/03/24 21:10 Last Infusion: 02/01/24 03:04 Dose: Infused Ceftriaxone Sodium (Rocephin) 2,000 mg in 50 mls @ 100 mls/hr IV Q24H [facility] Stop: 02/11/24 20:59 Last Infusion: 02/02/24 21:16 Dose: Infused Dextrose/Sodium Chloride (D5w And Nss) 1,000 mls @ 100 mls/hr IV .Q10H [facility] Stop: 03/02/24 12:44 Last Admin: 02/03/24 08:43 Dose: 100 mls/hr Insulin Aspart (Insulin Aspart Per Unit Charge) 0 units SC Q6 [facility] Stop: 03/01/24 23:20 Last Admin: 02/03/24 12:44 Dose: Not Given Insulin Glargine (Lantus Per Unit Charge) 5 units SQ BID [facility] Stop: 03/01/24 23:20 Last Admin: 02/01/24 21:49 Dose: Not Given Levothyroxine Sodium (Levothyroxine Sodium 125 Mcg Tablet) 125 mcg PO DAILYBB [facility] Stop: 03/02/24 06:29 Last Admin: 02/03/24 05:44 Dose: Not Given Lisinopril (Lisinopril 40 Mg Tab) 40 mg PO DAILY [facility] Stop: 03/02/24 08:59 Last Admin: 02/03/24 09:15 Dose: Not Given Metoprolol Tartrate (Metoprolol Tartrate 1 Mg/Ml Vial) 2.5 mg IV Q6 [facility] Stop: 03/02/24 00:00 Last Admin: 02/03/24 12:51 Dose: 2.5 mg Miscellaneous (Carbohydrates For Hypoglycemia ) 15 - 30 gm PO UD PRN PRN Reason: Hypoglycemia Protocol Stop: 03/01/24 23:20 Morphine Sulfate (Morphine Sulfate 2 Mg/Ml Carp) 4 mg IV Q4H PRN PRN Reason: Pain Stop: 02/15/24 08:44 Last Admin: 02/03/24 06:03 Dose: 4 mg Nifedipine (Nifedipine Extended Rel 30 Mg Tabcr) 30 mg PO QAM [facility] Stop: 03/02/24 08:59 Last Admin: 02/03/24 09:15 Dose: Not Given Phenol (Chloraseptic (Phenol) 1.4% Soln 180 Ml Btl) 2 sprays MT Q2H PRN PRN Reason: sore throat and ngt irriation Stop: 03/02/24 08:24 Last Admin: 06/22/24 05:34 Dose: 2 sprays Rosuvastatin Calcium (Rosuvastatin Calcium 20 Mg Tab) 20 mg PO DAILY [facility] Stop: 03/02/24 08:59 Last Admin: 02/03/24 09:15 Dose: Not Given Sertraline HCl (Sertraline Hcl 100 Mg Tablet) 200 mg PO DAILY [facility] Stop: 03/02/24 08:59 Last Admin: 02/03/24 09:15 Dose: Not Given (4) DM type 2 (diabetes mellitus, type 2) Diabetes mellitus complication status: without complication Diabetes mellitus buttermaker insulin use: with [facility] use Qualified Code(s): E11.9 - Type 2 diabetes mellitus without complications; Z79.4 - intermediate card tender (current) use of insulin
--- NOTE | 2024-02-03 17:42 | CT Scan Report ---
CT SCAN OF THE ABDOMEN AND PELVIS WITHOUT IV CONTRAST CLINICAL HISTORY: Small bowel obstruction. COMPARISON STUDY: Prior abdominal CT scans, most recently dated 01/31/2024. Abdominal radiograph date d 02/03/2024. TECHNIQUE: CT scan of the abdomen and pelvis is performed from the lung bases to the proximal femora. Images are reviewed in the axial, sagittal, and coronal planes. IV contrast was not administered for this examination. Note that the examination was performed in significantly suboptimal fashion withou t oral and IV contrast. A dose lowering technique was utilized adhering to the principles of ALARA. CT DOSE: 1198.34 mGy.cm FINDINGS: Lung bases: The heart is top normal in size and without pericardial effusion. There is calcification of the mitral annulus. There is diminished attenuation of the cardiac blood pool as compared to the m yocardium suggesting anemia. There are trace pleural effusions with dependent atelectasis. No air spa ce consolidation is seen typical for pneumonia. Liver: The unenhanced liver is cirrhotic in morphology and heterogeneous and attenuation. There is no dularity of the hepatic surface contour. There is no intrahepatic biliary ductal dilatation. Gallbladder: Surgically absent noting clips in the gallbladder fossa. Spleen: The spleen is enlarged measuring 15.3 cm in length. Pancreas: There is mild infiltration suggested around the distal pancreas. The unenhanced pancreas is otherwise grossly unremarkable. Adrenal glands: Unremarkable. Kidneys: The unenhanced kidneys are normal in size and without hydronephrosis. There are no renal aleks culi identified. There is no evidence of contour deforming renal mass lesion. Abdominal vasculature: The abdominal aorta is normal in course and caliber noting mild atheroscleroti c calcification. Stomach and bowel: An enteric tube is located in the stomach. There is moderate colonic fecal retenti on. There are mildly distended loops of small bowel which measure up to 2.6 cm in diameter. No high-g rade obstruction is seen, and the degree of distention has significantly improved from 01/31/2024. The re are loops of small bowel matted against the ventral abdominal wall, likely related to adhesions. T he appendix is well-visualized and normal. Peritoneum: No intraperitoneal free air or abdominal ascites is seen. A midline surgical scar is note d. Lymphadenopathy: None. Pelvic viscera: The bladder is normal as visualized. The uterus is surgically absent. No adnexal lesi on is seen. Skeletal structures: The skeletal structures are osteopenic. There are chronic compression deformitie s of T11, L1, L3, and L4. Mild spondylosis is observed. No lytic or blastic lesions are seen. Chronic deformity and postsurgical change is noted in the left proximal femur. There are chronic/healed left -sided rib fractures. IMPRESSION: 1. There are mildly distended loops of small bowel with no transition point identified and no CT evid ence of high-grade obstruction. 2. The degree of distention has significantly improved from 01/31/2024 and this likely represents a re solving small bowel obstruction. 3. Cirrhotic liver morphology and splenomegaly. 4. There are small pleural effusions with access. 5. Additional findings as above. ACT 112: Negative or not required by law. Electronically signed by: Félix Cisneros M.D. 02/03/2024 5:39 PM
[2024-02-03] MEDS: hydrALAZINE HCL 20 MG/ML VIAL IV STA ×2 (20:50→20:57)
[2024-02-03] MEDS: FAMOTIDINE 20MG IV PUSH 20 MG/5 ML SYR IV SCH (21:52)
[2024-02-04 06:28] LABS: Basophils # (auto) 0.03 K/uL (0.00-0.20); Basophils % (auto) 0.5 %; Eosinophils # (auto) 0.13 K/uL (0.00-0.50); Eosinophils % (auto) 2.1 %; Hematocrit (blood only) 33.6 % (37.0-47.0); Hemoglobin 11.8 g/dl (12.0-16.0); Immature Granulocytes # (auto) 0.02 K/uL (0.01-0.20); Immature Granulocytes % (auto) 0.3 %; Lymphocytes # (auto) 1.53 K/uL (1.20-3.40); Mean Corpuscular Hemoglobin 30.8 pg (25.0-34.0); Mean Corpuscular Hgb Conc 35.1 g/dL (32.0-36.0); Mean Corpuscular Volume 87.7 fL (80.0-100.0); Mean Platelet Volume 9.8 fL (9.4-12.4); Monocytes # (auto) 0.36 K/uL (0.11-0.59); Monocytes % (auto) 5.9 %; Neutrophils # (auto) 4.06 K/uL (1.40-6.50); Neutrophils % (auto) 66.2 %; Platelet Count 112 K/uL (130-400); RDW Coefficient of Variation 11.8 % (11.5-14.5); RDW Standard Deviation 37.3 fL (36.4-46.3); Red Blood Count 3.83 M/uL (4.20-5.40); White Blood Count 6.13 K/ul (4.8-10.8)
[2024-02-04 06:55] LABS: BUN Creatinine Ratio 11.5 (10-20); Calcium 9.3 mg/dl (8.6-10.3); Creatinine Clr Calc Pharmacy 84.9 ml/min; Est GFR (African American) 108.7 ml/min; Est GFR (Non-African American) 93.8 ml/min; Magnesium 1.7 mg/dl (1.7-2.4); Phosphorus 3.3 mg/dl (2.5-4.9); Potassium 3.6 mmol/L (3.5-5.1)
[2024-02-04 07:14] LABS: Estimated Average Glucose 123 mg/dl; Hemoglobin A1C 5.9 % (4.5-5.6)
--- NOTE | 2024-02-04 09:08 | XRay Report ---
KUB CLINICAL HISTORY: Small bowel obstruction. FINDINGS: 3 AP, portable, supine views of the abdomen are compared to abdominal radiographs an CT joanie ed 02/03/2024. An enteric tube is unchanged in position. Cholecystectomy clips are seen in the right u pper quadrant. There is no radiographic evidence of high-grade obstruction. There is mild persistent gaseous distention of the small bowel loops which has improved from previous. Gas and stool is seen i n the colon. No intraperitoneal free air is seen on these supine views. There are no abnormal abdomin al calcifications. Phleboliths are noted in the pelvis. The skeletal structures are osteopenic and ap pear intact. Spondylotic change is noted in the spine. Postsurgical change is noted in the left proxi mal femur. The imaged lung bases appear clear. IMPRESSION: Gaseous distention of the small bowel loops has continued to improve from previous, likel y representing a resolving obstruction. Electronically signed by: Félix Cisneros M.D. 02/04/2024 9:07 AM
--- NOTE | 2024-02-04 11:41 | Surgery Progress Note ---
Date of Service February 04, 2024 Assessment & Plan (1) SBO (small bowel obstruction): Plan: pt reports +flatus , asking for NGT removal, reports a bloody nose overnight from it Order to remove NGT placed CT scan yesterday and KUB from this AM showing improving/Resolving SBO ongoing abd discomfort , on exam soft non distended encouraged pt to ambulate in halls Will start on clears see how she fares Start bowel regimen Admission and Anticipated Discharge Date Admission Date: January 31, 2024 Supervising Physician Co-Signing Physician Notes pnt S&E, labs and imaging reviewed, agree with above. abd pain unclear etiology, possible pSBO vs. enteritis. Passing flatus, had bowel movement. NG continues with minimal output and was removed this morning. CT from yesterday personally viewed and interpreted and showed no evidence of persistent obstruction with air and stool in the colon and no transition point. There is no obvious hernia involving bowel. Abd soft, mildly ttp diffusely, more upper midline. No incarcerated hernia palpable. KUB today showed resolution of bowel obstruction persistent partial sbo vs enteritis, resolved. NG tube removed, started on clear liquids, advance diet to low fiber as tolerated. Dr. Martínez will be covering the rest of the week Subjective Pt reports passing flatus On going generalized abd pain Review of Systems Constitutional: no fever Gastrointestinal: + abdominal pain; no nausea and no vomit ing Physical Exam Physical Exam: alert and oriented Gastrointestinal (Abdomen): Inspection/Auscultation: abdomen not distended Percussion/Palpation: + abdomen tender and abdomen soft Results & Data Vital Signs (Past 12 Hours) Vital Signs Temp Pulse Pulse Resp BP BP BP 02/04/24 11:20 97.9 F 65 18 183/74 H 02/04/24 07:40 02/04/24 07:23 98.1 F 67 18 169/78 H 02/04/24 07:00 65 02/04/24 05:50 70 02/04/24 05:28 74 157/58 H 02/04/24 03:40 97.9 F 74 16 157/58 H 02/04/24 01:08 67 02/04/24 00:18 68 02/04/24 00:07 75 174/67 H Pulse Ox O2 Del Method 02/04/24 11:20 97 Room Air 06/24/24 07:40 Room Air 02/04/24 07:23 97 Room Air 02/04/24 07:00 02/04/24 05:50 02/04/24 05:28 02/04/24 03:40 96 Room Air 02/04/24 01:08 02/04/24 00:18 02/04/24 00:07 Diagnostic Findings [facility] [place] [phone] XRay Report Patient: RENAN VILLAGRAN Admit Date: 01/31/24 MR#: [id number] Address1: [address] Acct ID:[id number] Address2: Date: 1955 [facility] Zip: [place] [address] Age: 68 Location: 2N Sex: F Room/Bed: [facility] Att Phy: Evi Aguirre MD Diagnosis: SBO, IV BBLOCKER ADMIN Mary Kate Phy: Adria Hilliard MD Service Date: 02/04/24 Fam Phy: Interpreting Phy: Félix Cisneros MDAdmit Phy: Jose Carlos Luevano MD Ordering Phy: Pino Palacios cc: ~ CIPRIANO CLINICAL HISTORY: Small bowel obstruction. FINDINGS: 3 AP, portable, supine views of the abdomen are compared to abdominal radiographs an CT dated 02/03/2024. An enteric tube is unchanged in position. Cholecystectomy clips are seen in the right upper quadrant. There is no radiographic evidence of high-grade obstruction. There is mild persistent gaseous distention of the small bowel loops which has improved from previous. Gas and stool is seen in the colon. No intraperitoneal free air is seen on these supine views. There are no abnormal abdominal calcifications. Phleboliths are noted in the pelvis. The skeletal structures are osteopenic and appear intact. Spondylotic change is noted in the spine. Postsurgical change is noted in the left proximal femur. The imaged lung bases appear clear. IMPRESSION: Gaseous distention of the small bowel loops has continued to improve from previous, likely representing a resolving obstruction. Electronically signed by: Félix Cisneros M.D. 02/04/2024 9:07 AM Dictated: 02/04/24904 Transcribed: 02/04/24 [phone] Scan Report Patient: RENAN VILLAGRAN Admit Date: 01/31/24 MR#: [id number] Address1: [address] Acct ID:[id number] Address2: Date: 1955 [facility] Zip: [place] [address] Age: 68 Location: 2N Sex: F Room/Bed: [facility] Att Phy: Evi Aguirre MD Diagnosis: SBO, IV BBLOCKER ADMIN Mary Kate Phy: Adria Hilliard MD Service Date: 02/03/24 Fam Phy: Interpreting Phy: Félix Cisneros MDAdmit Phy: Jose Carlos Luevano MD Ordering Phy: Pino Palacios cc: ~ CT SCAN OF THE ABDOMEN AND PELVIS WITHOUT IV CONTRAST CLINICAL HISTORY: Small bowel obstruction. COMPARISON STUDY: Prior abdominal CT scans, most recently dated 01/31/2024. Abdominal radiograph dated 02/03/2024. TECHNIQUE: CT scan of the abdomen and pelvis is performed from the lung bases to the proximal femora. Images are reviewed in the axial, sagittal, and coronal planes. IV contrast was not administered for this examination. Note that the examination was performed in significantly suboptimal fashion without oral and IV contrast. A dose lowering technique was utilized adhering to the principles of ALARA. CT DOSE: 1198.34 mGy.cm FINDINGS: Lung bases: The heart is top normal in size and without pericardial effusion. There is calcification of the mitral annulus. There is diminished attenuation of the cardiac blood pool as compared to the myocardium suggesting anemia. There are trace pleural effusions with dependent atelectasis. No air space consolidation is seen typical for pneumonia. Liver: The unenhanced liver is cirrhotic in morphology and heterogeneous and attenuation. There is nodularity of the hepatic surface contour. There is no intrahepatic biliary ductal dilatation. Gallbladder: Surgically absent noting clips in the gallbladder fossa. Spleen: The spleen is enlarged measuring 15.3 cm in length. Pancreas: There is mild infiltration suggested around the distal pancreas. The unenhanced pancreas is otherwise grossly unremarkable. Adrenal glands: Unremarkable. Kidneys: The unenhanced kidneys are normal in size and without hydronephrosis. There are no renal calculi identified. There is no evidence of contour deforming renal mass lesion. Abdominal vasculature: The abdominal aorta is normal in course and caliber noting mild atherosclerotic calcification. Stomach and bowel: An enteric tube is located in the stomach. There is moderate colonic fecal retention. There are mildly distended loops of small bowel which measure up to 2.6 cm in diameter. No high-grade obstruction is seen, and the degree of distention has significantly improved from 01/31/2024. There are loops of small bowel matted against the ventral abdominal wall, likely related to adhesions. The appendix is well-visualized and normal. Peritoneum: No intraperitoneal free air or abdominal ascites is seen. A midline surgical scar is noted. Lymphadenopathy: None. Pelvic viscera: The bladder is normal as visualized. The uterus is surgically absent. No adnexal lesion is seen. Skeletal structures: The skeletal structures are osteopenic. There are chronic compression deformities of T11, L1, L3, and L4. Mild spondylosis is observed. No lytic or blastic lesions are seen. Chronic deformity and postsurgical change is noted in the left proximal femur. There are chronic/healed left-sided rib fractures. IMPRESSION: 1. There are mildly distended loops of small bowel with no transition point identified and no CT evidence of high-grade obstruction. 2. The degree of distention has significantly improved from 01/31/2024 and this likely represents a resolving small bowel obstruction. 3. Cirrhotic liver morphology and splenomegaly. 4. There are small pleural effusions with access. 5. Additional findings as above. ACT 112: Negative or not required by law. Electronically signed by: Félix Cisneros M.D. 02/03/2024 5:39 PM Dictated: 02/03/24 1421 Transcribed: 02/03/24 1428 Results CBC w Diff Results: RBC 3.83 M/uL (4.20-5.40) L 02/04/24 WBC 6.13 K/ul (4.8-10.8) 02/04/24 Hgb 11.8 g/dl (12.0-16.0) L 02/04/24 Hct 33.6 % (37.0-47.0) L 02/04/24 MCV 87.7 fL (80.0-100.0) 02/04/24 MCH 30.8 pg (25.0-34.0) 02/04/24 MCHC 35.1 g/dL (32.0-36.0) 02/04/24 RDW Standard Deviation 37.3 fL (36.4-46.3) 02/04/24 RDW Coefficient of Variation 11.8 % (11.5-14.5) 02/04/24 Plt Count 112 K/uL (130-400) L 02/04/24 MPV 9.8 fL (9.4-12.4) 02/04/24 Neutrophils (%) (Auto) 66.2 % 02/04/24 Lymphocytes (%) (Auto) 25.0 % 02/04/24 Monocytes # (Auto) 0.36 K/uL (0.11-0.59) 02/04/24 Eosinophils # (Auto) 0.13 K/uL (0.00-0.50) 02/04/24 Immature Granulocyte % (Auto) 0.3 % 02/04/24 Neutrophils # (Auto) 4.06 K/uL (1.40-6.50) 02/04/24 Lymphocytes # (Auto) 1.53 K/uL (1.20-3.40) 02/04/24 Monocytes # (Auto) 0.36 K/uL (0.11-0.59) 02/04/24 Eosinophils # (Auto) 0.13 K/uL (0.00-0.50) 02/04/24 Basophils # (Auto) 0.03 K/uL (0.00-0.20) 02/04/24 Immature Granulocyte # (Auto) 0.02 K/uL (0.01-0.20) 4 Tear Drop Cells 1+ 07/03/22 PG Care Time/CCT Total # of Minutes Spent Total Time Spent with Patient: Total time spent is greater than 50% in coordination of care (as documented) at patient's floor/unit and/or counseling patient: Coding Level of Care Code 15103 SUB INP/OBS CARE 09/06MIN Diagnoses SBO (small bowel obstruction) K56.609
[2024-02-04] MEDS: POLYETHYLENE (MIRALAX) 17 GM PACK PO SCH (11:58)
--- NOTE | 2024-02-04 15:22 | Hospitalist Progress Note ---
Date of Service February 04, 2024 Assessment & Plan (1) SBO (small bowel obstruction): Plan: Presented with abdominal pain and nausea CT of the abdomen pelvis and KUB showed SBO History of multiple surgery in the past including history of Crohn's disease status post surgery Appreciate surgery input and recommendation Remains n.p.o. Will give IV fluid and IV pain medications as needed She has been passing gas but no bowel movement yet KUB still showing intestinal obstruction Will continue current management of NG suction, n.p.o., IV fluid and IV analgesics and antiemetics Persisting abdominal pain but has been passing gas Repeat KUB did show persisting intestinal obstruction Repeat CT scan of the abdomen pelvis pending She has been feeling little better-will keep the NG tube and continue current n.p.o. status Repeat KUB did show improvement of the SBO She has been moving bowels and passing gas NG tube has been discontinued and she will have clears orally Possible UTI Has been on intravenous ceftriaxone Urine culture is growing 3 different organisms Will continue antibiotic for about 3 days Denies any urinary symptoms and antibiotic will be discontinued after tomorrow's dose Intravenous antibiotic will be discontinued as no evidence of UTI after tomorrow's dose (2) Abdominal pain: Plan: Likely secondary to SBO Continues to have more pain-will continue the current pain medications (3) History of pulmonary embolism: Plan: History of pulmonary embolism Has not been on any anticoagulation due to recurrent fall and multiple fractures in the past (4) DM type 2 (diabetes mellitus, type 2): Plan: Basal bolus insulin adjusted for n.p.o. status, ISS BG goal 1 10-1 40, Has been running low blood sugar being on n.p.o. Started on dextrose in normal saline as long as she is on n.p.o. 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 Lovenox subcu Full code Patient requesting updates providers. Mr. Dayne Fine, contact #[phone]. Discussed with the Admission and Anticipated Discharge Date Admission Date: January 31, 2024 Subjective 02/01/2024 The patient was seen and examined in medical telemetry unit She has been complaining of abdominal discomfort and shortness of breath with minimal exertion Has nausea but no vomiting She has been passing gas 02/02/2024 The patient was seen and examined in medical telemetry unit She has been complaining of more abdominal pain today with nausea Denies any abdominal distention Has been passing gas but bowel is not moved Denies any fever and or chills 02/03/2024 The patient was seen and examined in medical telemetry unit in presence of the She has been having abdominal pain and passing gas KUB did not show any improvement of the obstruction and CT scan of the abdomen reports are pending Will keep NG tube for now and n.p.o. 02/04/2024 The patient was seen and examined in medical telemetry unit in presence of the She has been feeling much better with decrease in abdominal distention and nausea Repeat KUB did show improvement of her intestinal obstruction She does not want to keep the NG tube anymore and that was taken out Has been passing gas and bowel is moving Review of Systems Review of Systems: All systems reviewed and are unremarkable except as noted below Respiratory: Shortness of breath with minimal exertion Gastrointestinal: Abdominal discomfort without distention Physical Exam Physical Exam: Lying in bed very anxious and with some distress due to abdominal discomfort and shortness of breath Constitutional: + ill appearing and average body habitus Eyes: PERRL, conjunctivae normal, anicteric sclerae ENMT: external ear and nose normal, oropharynx normal Neck: trachea midline, no thyromegaly Respiratory: no respiratory distress (Minimal distress due to short of breath) Auscultation: no diminished lung sounds, no crackles and no wheezes (Minimal wheezing) Cardiovascular: Rate/Rhythm: regular rate and regular rhythm; not tachycardic Heart Sounds: normal S1 and normal S2; no murmur Extremities: no edema Gastrointestinal (Abdomen): Inspection/Auscultation: normal bowel sounds (Improving and seems to be normal); abdomen not distended Percussion/Palpation: + abdomen tender (Mildly tender all over) and abdomen soft Neurologic: normal touch/pain/proprioception and moves all extremities; no focal motor deficits Psychiatric: A+Ox3, euthymic affect Lymphatic: no cervical or axillary lymphadenopathy Results & Data Results & Data Vital Signs (Past 12 Hours) Vital Signs Temp Pulse Pulse Resp BP BP BP 02/04/24 14:00 70 02/04/24 12:49 66 177/87 H 02/04/24 12:30 66 195/79 H 02/04/24 11:20 36.6 C 65 18 183/74 H 02/04/24 07:40 02/04/24 07:23 36.7 C 67 18 169/78 H 02/04/24 07:00 65 02/04/24 05:50 70 02/04/24 05:28 74 157/58 H 02/04/24 03:40 36.6 C 74 16 157/58 H Pulse Ox O2 Del Method 02/04/24 14:00 02/04/24 12:49 02/04/24 12:30 02/04/24 11:20 97 Room Air 02/04/24 07:40 Room Air 02/04/24 07:23 97 Room Air 02/04/24 07:00 02/04/24 05:50 02/04/24 05:28 02/04/24 03:40 96 Room Air Laboratory Results Short CBC 02/04/24 Range/Units 05:47 WBC 6.13 (4.8-10.8) K/ul Hgb 11.8 L (12.0-16.0) g/dl Hct 33.6 L (37.0-47.0) % Plt Count 112 L (130-400) K/uL BMP 02/04/24 05:47 Sodium 140 Potassium 3.6 Chloride 107 Carbon Dioxide 26 BUN 7 Creatinine 0.61 Glucose 128 H Calcium 9.3 Medications Administered Current Inpatient Medications Bupropion HCl (Bupropion Hcl 100 Mg Tablet) 100 mg PO QAM [facility] Stop: 03/02/24 08:59 Last Admin: 02/04/24 11:57 Dose: 100 mg Dextrose (Dextrose 50% 50 Ml Syringe) 25 - 50 ml IV UD PRN; Protocol PRN Reason: Hypoglycemia Protocol Stop: 03/01/24 23:20 Enoxaparin Sodium (Enoxaparin Inj 40 Mg/0.4 Ml Syr) 40 mg SQ QAM [facility]EN[facility] Stop: 03/02/24 08:59 Last Admin: 02/04/24 07:42 Dose: 40 mg Glucagon (Glucagon For Inj 1 Mg Vial) 1 mg SQ UD PRN; Protocol PRN Reason: Hypoglycemia Protocol Stop: 03/01/24 23:20 Glucose (Glucose 40% Gel 15 Gm Tube) 15 - 30 gm PO UD PRN; Protocol PRN Reason: Hypoglycemia Protocol Stop: 03/01/24 23:20 Glucose (Glucose 10 Tab/Tube) 4 - 8 tab PO UD PRN; Protocol PRN Reason: Hypoglycemia Treatment Stop: 03/01/24 23:20 Promethazine HCl 12.5 mg/ (Sodium Chloride) 50.5 mls @ 202 mls/hr IV Q6H PRN PRN Reason: Nausea And Vomiting Stop: 03/01/24 21:56 Last Infusion: 02/02/24 20:38 Dose: Infused Ceftriaxone Sodium (Rocephin) 2,000 mg in 50 mls @ 100 mls/hr IV Q24H [facility] Stop: 02/11/24 20:59 Last Infusion: 02/03/24 22:51 Dose: Infused Dextrose/Sodium Chloride (D5w And Nss) 1,000 mls @ 100 mls/hr IV .Q10H [facility] Stop: 03/02/24 12:44 Last Admin: 02/04/24 05:29 Dose: 100 mls/hr Famotidine (Pepcid 20mg Iv Push) 20 mg in 5 mls @ 2.5 mls/min IV Q12H [facility] Stop: 03/04/24 21:04 Last Admin: 02/04/24 07:44 Dose: 2.5 mls/min Insulin Aspart (Insulin Aspart Per Unit Charge) 0 units SC Q6 [facility] Stop: 03/01/24 23:20 Last Admin: 02/04/24 12:25 Dose: Not Given Insulin Glargine (Lantus Per Unit Charge) 5 units SQ BID [facility] Stop: 03/01/24 23:20 Last Admin: 02/01/24 21:49 Dose: Not Given Levothyroxine Sodium (Levothyroxine Sodium 125 Mcg Tablet) 125 mcg PO DAILYBB [facility] Stop: 03/02/24 06:29 Last Admin: 02/04/24 05:28 Dose: Not Given Lisinopril (Lisinopril 40 Mg Tab) 40 mg PO DAILY [facility] Stop: 03/02/24 08:59 Last Admin: 02/04/24 11:57 Dose: 40 mg Metoprolol Tartrate (Metoprolol Tartrate 1 Mg/Ml Vial) 2.5 mg IV Q6 [facility] Stop: 03/02/24 00:00 Last Admin: 02/04/24 12:30 Dose: 2.5 mg Miscellaneous (Carbohydrates For Hypoglycemia ) 15 - 30 gm PO UD PRN PRN Reason: Hypoglycemia Protocol Stop: 03/01/24 23:20 Morphine Sulfate (Morphine Sulfate 2 Mg/Ml Carp) 4 mg IV Q4H PRN PRN Reason: Pain Stop: 02/15/24 08:44 Last Admin: 02/04/24 07:49 Dose: 4 mg Nifedipine (Nifedipine Extended Rel 30 Mg Tabcr) 30 mg PO QAM [facility] Stop: 03/02/24 08:59 Last Admin: 02/04/24 11:57 Dose: 30 mg Phenol (Chloraseptic (Phenol) 1.4% Soln 180 Ml Btl) 2 sprays MT Q2H PRN PRN Reason: sore throat and ngt irriation Stop: 03/02/24 08:24 Last Admin: 02/02/24 05:34 Dose: 2 sprays Polyethylene Glycol (Polyethylene (Miralax) 17 Gm Pack) 17 gm PO DAILY [facility] Stop: 03/05/24 11:44 Last Admin: 02/04/24 11:58 Dose: 17 gm Rosuvastatin Calcium (Rosuvastatin Calcium 20 Mg Tab) 20 mg PO DAILY [facility] Stop: 03/02/24 08:59 Last Admin: 02/04/24 11:57 Dose: 20 mg Sertraline HCl (Sertraline Hcl 100 Mg Tablet) 200 mg PO DAILY [facility] Stop: 03/02/24 08:59 Last Admin: 02/04/24 11:57 Dose: 200 mg (4) DM type 2 (diabetes mellitus, type 2) Diabetes mellitus complication status: without complication Diabetes mellitus roasterman insulin use: with roasterman use Qualified Code(s): E11.9 - Type 2 diabetes mellitus without complications; Z79.4 - [facility] (current) use of insulin
[2024-02-04] MEDS ORDERED: Nursing to Pharmacy Communication SCH (19:00)
[2024-02-04] MEDS: INSULIN ASPART PER UNIT CHARGE SC SCH (20:57)
--- NOTE | 2024-02-05 09:02 | Surgery Progress Note ---
Date of Service February 05, 2024 Assessment & Plan (1) SBO (small bowel obstruction): Plan: resolving SBO Tolerating clears will advance to full liquids Having BM and passing flatus General surgery will sign off , call with questions or concerns Admission and Anticipated Discharge Date Admission Date: January 31, 2024 Supervising Physician Co-Signing Physician Notes I personally saw and evaluated the patient with Pino MCNALLY and agree with the assessment and plan 68 yo female with resolved SBO She is tolerating clears, advance to low fiber If she tolerates this, she can be discharged later today Surgery will sign off at this time, please call with any questions or concerns Subjective pt with ongoing abd discomfort Tolerating clears Review of Systems Gastrointestinal: + abdominal pain (discomfort ); no nause a and no vomiting Physical Exam Constitutional: cooperative and comfortable; no acute distress Gastrointestinal (Abdomen): Inspection/Auscultation: abdomen not distended Percussion/Palpation: + abdomen tender and abdomen soft Results & Data Vital Signs (Past 12 Hours) Vital Signs Temp Pulse Pulse Resp BP Pulse Ox O2 Del Method 02/05/24 07:36 98.1 F 66 16 116/58 L 97 Room Air 02/05/24 03:51 97.7 F 62 18 101/50 L 97 Room Air 02/05/24 01:28 64 02/04/24 23:12 97.5 F L 65 18 96/50 L 96 Room Air 02/04/24 21:43 Room Air PG Care Time/CCT Total # of Minutes Spent Total Time Spent with Patient: Total time spent is greater than 50% in coordination of care (as documented) at patient's floor/unit and/or counseling patient: Coding Level of Care Code 00055 SUB INP/OBS CARE 09/06MIN Diagnoses SBO (small bowel obstruction) K56.609
[2024-02-05 11:02] VITALS: RESP 18; TEMP 98.2; O2SAT 98
--- NOTE | 2024-02-05 14:51 | Hospitalist Progress Note ---
Date of Service February 05, 2024 Assessment & Plan (1) SBO (small bowel obstruction): Plan: Presented with abdominal pain and nausea CT of the abdomen pelvis and KUB showed SBO History of multiple surgery in the past including history of Crohn's disease status post surgery Appreciate surgery input and recommendation Remains n.p.o. Will give IV fluid and IV pain medications as needed She has been passing gas but no bowel movement yet KUB still showing intestinal obstruction Will continue current management of NG suction, n.p.o., IV fluid and IV analgesics and antiemetics Persisting abdominal pain but has been passing gas Repeat KUB did show persisting intestinal obstruction Repeat CT scan of the abdomen pelvis pending She has been feeling little better-will keep the NG tube and continue current n.p.o. status Repeat KUB did show improvement of the SBO She has been moving bowels and passing gas NG tube has been discontinued and she will have clears orally Has been tolerating regular diet-ambulating without any difficulties Cleared by surgery Will be discharged home this afternoon Possible UTI Has been on intravenous ceftriaxone Urine culture is growing 3 different organisms Will continue antibiotic for about 3 days Denies any urinary symptoms and antibiotic will be discontinued after tomorrow's dose Intravenous antibiotic will be discontinued as no evidence of UTI after tomorrow's dose Course of antibiotic is done (2) Abdominal pain: Plan: Likely secondary to SBO Continues to have more pain-will continue the current pain medications No more abdominal pain and/or distention (3) History of pulmonary embolism: Plan: History of pulmonary embolism Has not been on any anticoagulation due to recurrent fall and multiple fractures in the past (4) DM type 2 (diabetes mellitus, type 2): Plan: Basal bolus insulin adjusted for n.p.o. status, ISS BG goal 1 10-1 40, Has been running low blood sugar being on n.p.o. Started on dextrose in normal saline as long as she is on n.p.o. 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 Lovenox subcu Full code Patient requesting updates providers. Mr. Dayne Fine, contact #[phone]. Discussed with the Will be discharged home this afternoon Admission and Anticipated Discharge Date Admission Date: January 31, 2024 Subjective 02/01/2024 The patient was seen and examined in medical telemetry unit She has been complaining of abdominal discomfort and shortness of breath with minimal exertion Has nausea but no vomiting She has been passing gas 02/02/2024 The patient was seen and examined in medical telemetry unit She has been complaining of more abdominal pain today with nausea Denies any abdominal distention Has been passing gas but bowel is not moved Denies any fever and or chills 02/03/2024 The patient was seen and examined in medical telemetry unit in presence of the She has been having abdominal pain and passing gas KUB did not show any improvement of the obstruction and CT scan of the abdomen reports are pending Will keep NG tube for now and n.p.o. 02/04/2024 The patient was seen and examined in medical telemetry unit in presence of the She has been feeling much better with decrease in abdominal distention and nausea Repeat KUB did show improvement of her intestinal obstruction She does not want to keep the NG tube anymore and that was taken out Has been passing gas and bowel is moving 02/05/2024 The patient was seen and examined in the medical telemetry unit She has been tolerating regular diet Ambulating independently in the hallway without any difficulties Remains free from any symptoms and will be discharged home this afternoon Review of Systems Review of Systems: All systems reviewed and are unremarkable except as noted below Physical Exam Physical Exam: Lying in bed very anxious and with some distress due to abdominal discomfort and shortness of breath Constitutional: + ill appearing and average body habitus Eyes: PERRL, conjunctivae normal, anicteric sclerae ENMT: external ear and nose normal, oropharynx normal Neck: trachea midline, no thyromegaly Respiratory: no respiratory distress (Minimal distress due to short of breath) Auscultation: no diminished lung sounds, no crackles and no wheezes (Minimal wheezing) Cardiovascular: Rate/Rhythm: regular rate and regular rhythm; not tachycardic Heart Sounds: normal S1 and normal S2; no murmur Extremities: no edema Gastrointestinal (Abdomen): Inspection/Auscultation: normal bowel sounds (Improving and seems to be normal); abdomen not distended Percussion/Palpation: abdomen soft; abdomen nontender (Mildly tender all over) Neurologic: normal touch/pain/proprioception and moves all extremities; no focal motor deficits Psychiatric: A+Ox3, euthymic affect Lymphatic: no cervical or axillary lymphadenopathy Results & Data Results & Data Vital Signs (Past 12 Hours) Vital Signs Temp Pulse Pulse Resp BP BP Pulse Ox 02/05/24 11:52 71 137/69 02/05/24 11:33 70 122/70 02/05/24 11:01 36.8 C 73 18 117/69 98 02/05/24 07:36 36.7 C 66 16 116/58 L 97 02/05/24 07:00 66 02/05/24 03:51 36.5 C 62 18 101/50 L 97 O2 Del Method 02/05/24 11:52 02/05/24 11:33 02/05/24 11:01 Room Air 02/05/24 07:36 Room Air 02/05/24 07:00 02/05/24 03:51 Room Air Medications Administered Current Inpatient Medications Bupropion HCl (Bupropion Hcl 100 Mg Tablet) 100 mg PO QAM BRENDA Stop: 03/02/24 08:59 Last Admin: 02/05/24 07:52 Dose: 100 mg Dextrose (Dextrose 50% 50 Ml Syringe) 25 - 50 ml IV UD PRN; Protocol PRN Reason: Hypoglycemia Protocol Stop: 03/01/24 23:20 Enoxaparin Sodium (Enoxaparin Inj 40 Mg/0.4 Ml Syr) 40 mg SQ QAM BRENDA Stop: 03/02/24 08:59 Last Admin: 02/05/24 07:52 Dose: 40 mg Glucagon (Glucagon For Inj 1 Mg Vial) 1 mg SQ UD PRN; Protocol PRN Reason: Hypoglycemia Protocol Stop: 03/01/24 23:20 Glucose (Glucose 40% Gel 15 Gm Tube) 15 - 30 gm PO UD PRN; Protocol PRN Reason: Hypoglycemia Protocol Stop: 03/01/24 23:20 Glucose (Glucose 10 Tab/Tube) 4 - 8 tab PO UD PRN; Protocol PRN Reason: Hypoglycemia Treatment Stop: 03/01/24 23:20 Promethazine HCl 12.5 mg/ (Sodium Chloride) 50.5 mls @ 202 mls/hr IV Q6H PRN PRN Reason: Nausea And Vomiting Stop: 03/01/24 21:56 Last Infusion: 02/02/24 20:38 Dose: Infused Ceftriaxone Sodium (Rocephin) 2,000 mg in 50 mls @ 100 mls/hr IV Q24H BRENDA Stop: 02/11/24 20:59 Last Infusion: 02/04/24 22:48 Dose: Infused Dextrose/Sodium Chloride (D5w And Nss) 1,000 mls @ 100 mls/hr IV .Q10H BRENDA Stop: 03/02/24 12:44 Last Admin: 02/05/24 10:17 Dose: 100 mls/hr Famotidine (Pepcid 20mg Iv Push) 20 mg in 5 mls @ 2.5 mls/min IV Q12H BRENDA Stop: 03/04/24 21:04 Last Admin: 02/05/24 07:57 Dose: 2.5 mls/min Insulin Aspart (Insulin Aspart Per Unit Charge) 0 units SC ACHS [facility] Stop: 03/02/24 17:59 Last Admin: 02/05/24 12:44 Dose: 5 units Insulin Glargine (Lantus Per Unit Charge) 5 units SQ BID BRENDA Stop: 03/01/24 23:20 Last Admin: 02/01/24 21:49 Dose: Not Given Levothyroxine Sodium (Levothyroxine Sodium 125 Mcg Tablet) 125 mcg PO DAILYBB [facility] Stop: 03/02/24 06:29 Last Admin: 02/05/24 06:11 Dose: 125 mcg Lisinopril (Lisinopril 40 Mg Tab) 40 mg PO DAILY BRENDA Stop: 03/02/24 08:59 Last Admin: 02/05/24 07:52 Dose: 40 mg Metoprolol Tartrate (Metoprolol Tartrate 1 Mg/Ml Vial) 2.5 mg IV Q6 BRENDA Stop: 03/02/24 00:00 Last Admin: 02/05/24 11:33 Dose: 2.5 mg Miscellaneous (Carbohydrates For Hypoglycemia ) 15 - 30 gm PO UD PRN PRN Reason: Hypoglycemia Protocol Stop: 03/01/24 23:20 Morphine Sulfate (Morphine Sulfate 2 Mg/Ml Carp) 4 mg IV Q4H PRN PRN Reason: Pain Stop: 02/15/24 08:44 Last Admin: 02/05/24 07:57 Dose: 4 mg Nifedipine (Nifedipine Extended Rel 30 Mg Tabcr) 30 mg PO QAM BRENDA Stop: 03/02/24 08:59 Last Admin: 02/05/24 07:52 Dose: 30 mg Phenol (Chloraseptic (Phenol) 1.4% Soln 180 Ml Btl) 2 sprays MT Q2H PRN PRN Reason: sore throat and ngt irriation Stop: 03/02/24 08:24 Last Admin: 02/02/24 05:34 Dose: 2 sprays Polyethylene Glycol (Polyethylene (Miralax) 17 Gm Pack) 17 gm PO DAILY BRENDA Stop: 03/05/24 11:44 Last Admin: 02/05/24 07:51 Dose: Not Given Rosuvastatin Calcium (Rosuvastatin Calcium 20 Mg Tab) 20 mg PO DAILY BRENDA Stop: 03/02/24 08:59 Last Admin: 02/05/24 07:52 Dose: 20 mg Sertraline HCl (Sertraline Hcl 100 Mg Tablet) 200 mg PO DAILY BRENDA Stop: 03/02/24 08:59 Last Admin: 02/05/24 07:52 Dose: 200 mg (4) DM type 2 (diabetes mellitus, type 2) Diabetes mellitus complication status: without complication 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
[2024-02-05 15:20] VITALS: BP 117/69; PULSE 73
--- NOTE | 2024-02-05 18:52 | Discharge Summary ---
Date of Service February 05, 2024 Admission HPI Per Admitting Provider History obtained from patient, family, and records. Medical history significant for hypertension, hyperlipidemia, PE not on anticoagulation secondary to recurrent falls, 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, NAFLD cirrhosis, history of gastroparesis, DM 2 insulin requiring, hypothyroidism, mood disorder, dementia as per records, intention tremors. Last confinement March 2023 for chest pain. ACS ruled out. Patient woke up this morning with achy periumbilical abdominal pain. Painful bulge noted. Bilious emesis without chest pain, SOB. No fever, no chills. IV ceftriaxone administered at the ER for possible UTI. Patient brought to the ER by for evaluation. IV ceftriaxone administered at the ER for possible UTI. Medical History as above Surgical History : Oophorectomy, knee surgery, D&C, cholecystectomy, hysterectomy, BTL, adhesiolysis Family History : Heart disease, DM Personal/Social history : Non-smoker, no EtOH intake, retired [employer] employee Admission Exam Per Admitting Provider Physical Exam: GENERAL: Slightly uncomfortable, pleasant, no respiratory distress SKIN: Normal color, warm HEENT: [place] palpebral conjunctivae, no ptosis, dry buccal mucosa NECK : Supple, no tenderness CHEST : CTA, no tenderness HEART : RRR, no obvious murmurs ABDOMEN: Some distention, central tenderness EXTREMITIES : No LE swelling/tenderness, no other conspicuous deformities noted NEUROLOGIC : Coherent, no facial asymmetry, no other gross focality Principal Diagnosis SBO-resolved Discharge Exam Lying in bed very anxious and with some distress due to abdominal discomfort and shortness of breath Constitutional + ill appearing and average body habitus Eyes PERRL, conjunctivae normal, anicteric sclerae ENMT external ear and nose normal, oropharynx normal Neck trachea midline, no thyromegaly Respiratory no respiratory distress (Minimal distress due to short of breath) Auscultation: no diminished lung sounds, no crackles and no wheezes (Minimal wheezing) Cardiovascular Rate/Rhythm: regular rate and regular rhythm; not tachycardic Heart Sounds: normal S1 and normal S2; no murmur Extremities: no edema Gastrointestinal (Abdomen) Inspection/Auscultation: normal bowel sounds (Improving and seems to be normal); abdomen not distended Percussion/Palpation: abdomen soft; abdomen nontender (Mildly tender all over) Neurologic normal touch/pain/proprioception and moves all extremities; no focal motor defic its Psychiatric A+Ox3, euthymic affect Lymphatic no cervical or axillary lymphadenopathy Discharge Data Allergies Allergy/AdvReac Type Severity Reaction Status Date / Time adhesive Allergy Intermediate RASH Verified 01/31/24 21:06 Iodinated Contrast Media Allergy Intermediate burning Verified 01/31/24 21:06 and aching in veins latex Allergy Intermediate RASH Verified 01/31/24 21:06 Penicillins Allergy Intermediate n/v, rash Verified 01/31/24 21:06 hepatitis B virus vaccine Allergy Unknown Unknown Verified 01/31/24 21:06 Anesthetics - Amide Type - AdvReac Intermediate Vomiting Verified 01/31/24 21:06 Select A [Anesthetics - Amide Type] Anesthetics - Juju Type- AdvReac Intermediate Vomiting Verified 01/31/24 21:06 Parabens ketorolac AdvReac Intermediate ITCHING. Verified 01/31/24 21:06 tromethamine AdvReac Intermediate ITCHING. Verified 01/31/24 21:06 aspirin AdvReac Unknown CONTRAINDICATED---currently Verified 01/31/24 21:06 with gastric ulcer, per pt Consultations 01/31/24 21:15 ED Decision to Admit Stat 01/31/24 23:21 Consult General Surgery Routine Ordered Studies 01/31/24 19:38 CT abd pelvis wo con Stat 02/03/24 12:51 CT abd pelvis wo con Urgent Hospital Course (1) SBO (small bowel obstruction): Presented with abdominal pain and nausea CT of the abdomen pelvis and KUB showed SBO History of multiple surgery in the past including history of Crohn's disease status post surgery Appreciate surgery input and recommendation Remains n.p.o. Will give IV fluid and IV pain medications as needed She has been passing gas but no bowel movement yet KUB still showing intestinal obstruction Will continue current management of NG suction, n.p.o., IV fluid and IV analgesics and antiemetics Persisting abdominal pain but has been passing gas Repeat KUB did show persisting intestinal obstruction Repeat CT scan of the abdomen pelvis pending She has been feeling little better-will keep the NG tube and continue current n.p.o. status Repeat KUB did show improvement of the SBO She has been moving bowels and passing gas NG tube has been discontinued and she will have clears orally Has been tolerating regular diet-ambulating without any difficulties Cleared by surgery Will be discharged home this afternoon Possible UTI Has been on intravenous ceftriaxone Urine culture is growing 3 different organisms Will continue antibiotic for about 3 days Denies any urinary symptoms and antibiotic will be discontinued after tomorrow's dose Intravenous antibiotic will be discontinued as no evidence of UTI after tomorrow's dose Course of antibiotic is done (2) Abdominal pain: Likely secondary to SBO Continues to have more pain-will continue the current pain medications No more abdominal pain and/or distention (3) History of pulmonary embolism: History of pulmonary embolism Has not been on any anticoagulation due to recurrent fall and multiple fractures in the past (4) DM type 2 (diabetes mellitus, type 2): Basal bolus insulin adjusted for n.p.o. status, ISS BG goal 1 10-1 40, Has been running low blood sugar being on n.p.o. Started on dextrose in normal saline as long as she is on n.p.o. 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 Lovenox subcu Full code Patient requesting updates providers. Mr. aDyne Fine, contact #[phone]. Discussed with the Will be discharged home this afternoon Total Time Total Time Spent Total Time Spent (In Minutes): 35 minutes Discharge Plan Discharge Items Patient Disposition: Home - Self-Care Reason For Visit: SBO, IV BBLOCKER ADMIN Discharge Diagnosis: SBO-resolved Condition on Discharge: Fair Activity: Resume your previous activity Non-emergency contact: Primary Care Provider Call non-emergency contact if: you have any medication questions and your symptoms worsen Follow-up/Referrals: Gabo Martínez DO [Physician] - (You may follow up with general surgery outpatient if you like. ) Adria Hilliard MD [Primary Care Provider] - (Date & Time 02/11/2024 3:00 PM Provider Adria Hilliard MD [facility] ) Diet: Low Fiber Addtl Attending Provider Instructions: Please take precautions to avoid falls No change in your current medications Try to drink more fluid Continue with low fiber diet Please keep appointments with the healthcare providers Pending Studies at Discharge: No Stand-Alone Forms: My [facility], Smoking Cessation Medications and DC Order Prescriptions: Continued sertraline 100 mg tablet 200 mg PO DAILY clopidogrel 75 mg tablet 75 mg PO DAILY bupropion HCl 100 mg tablet 100 mg PO QAM famotidine 20 mg Tablet 20 mg PO BID levothyroxine 125 mcg Tablet 125 mcg PO DAILY metoprolol succinate 25 mg tablet extended release 24 hr 25 mg PO DAILY cholecalciferol (vitamin D3) [Vitamin D3] 25 mcg (1,000 unit) capsule 25 mcg PO DAILY rosuvastatin 20 mg tablet 20 mg PO DAILY insulin glargine [Lantus Solostar U-100 Insulin] 100 unit/mL (3 mL) insulin pen 20 unit SUBCUT BID Trulicity 4.5 mg/0.5 mL pen injector 4.5 mg SUBCUT WK Rx Instructions: Sunday nifedipine [Procardia XL] 30 mg Tablet Extended Release 24hr 30 mg PO QAM Qty: 30 1RF spironolactone 25 mg Tablet 25 mg PO DAILY Qty: 30 1RF lisinopril [Zestril] 40 mg Tablet 40 mg PO DAILY Qty: 30 1RF polyethylene glycol 3350 [Miralax] 17 gram powder in packet 17 g PO DAILY PRN (Reason: Constipation) tramadol 50 mg tablet 50 mg PO Q4H PRN (Reason: pain) Qty: 15 0RF Rx Instructions: No more than 5 pills daily Discharge Orders: Discharge Order (Routine); Ordered 02/05/24 Ordered By: Evi Aguirre Admission Data Admit Date/Time: 01/31/24 21:55 Attending Provider: Evi Aguirre Admit Provider: Jose Carlos Luevano Primary Care Provider: Adria Hilliard Other Providers: Jose Carlos Luevano; Rakan Garza Other Interventions: Discharge Summary Assessment (RN) Last Done: 02/05/24 15:19
== END 2024-02-05 16:18 | disposition home or self-care (01) | DRG 389 ==
LOC: ED 18:30 → 2N 21:55

== ENCOUNTER 2024-02-22 16:07 | Inpatient (IN) ==
[2024-02-22] MEDS: SODIUM CHLORIDE 0.9% 1,000 ML IV ONE ×2 (17:01→22:00)
[2024-02-22 17:17] LABS: Basophils # (auto) 0.03 K/uL (0.00-0.20); Basophils % (auto) 0.6 %; Eosinophils # (auto) 0.07 K/uL (0.00-0.50); Eosinophils % (auto) 1.4 %; Hematocrit (blood only) 34.4 % (37.0-47.0); Hemoglobin 11.6 g/dl (12.0-16.0); Immature Granulocytes # (auto) 0.02 K/uL (0.01-0.20); Immature Granulocytes % (auto) 0.4 %; Lymphocytes # (auto) 1.37 K/uL (1.20-3.40); Lymphocytes % (auto) 26.6 %; Mean Corpuscular Hemoglobin 30.2 pg (25.0-34.0); Mean Corpuscular Hgb Conc 33.7 g/dL (32.0-36.0); Mean Corpuscular Volume 89.6 fL (80.0-100.0); Mean Platelet Volume 10.3 fL (9.4-12.4); Monocytes # (auto) 0.33 K/uL (0.11-0.59); Monocytes % (auto) 6.4 %; Neutrophils # (auto) 3.33 K/uL (1.40-6.50); Neutrophils % (auto) 64.6 %; Platelet Count 111 K/uL (130-400); RDW Coefficient of Variation 12.2 % (11.5-14.5); RDW Standard Deviation 39.4 fL (36.4-46.3); Red Blood Count 3.84 M/uL (4.20-5.40); White Blood Count 5.15 K/ul (4.8-10.8)
[2024-02-22 17:18] LABS: Appearance Urine Clear (Clear); Bacteria Urine Automated None Seen (None Seen); Bilirubin Urine Negative (Negative); Blood Urine 1+ (Negative); Cast Urine Automated 0-2 /lpf (0-2); Color Urine Yellow; Epithelial Cell Urine Auto 0-2 /hpf (0-2); Glucose Urine UA 2+ (Negative); Ketones Urine Negative (Negative); Leukocyte Esterase Urine 2+ (Negative); Nitrite Urine Negative (Negative); Protein Urine Trace (Negative); Specific Gravity Urine 1.026 (1.000-1.030); Urobilinogen Urine Negative (Negative); WBC Urine Automated 21-50 /hpf (0-5); pH Urine 5.5 (4.5-7.5)
[2024-02-22 17:35] LABS: Albumin Globulin Ratio 1.4 (0.9-2); Albumin Level 4.4 gm/dl (3.4-5.0); BUN Creatinine Ratio 21.6 (10-20); Bilirubin,Total 0.5 mg/dl (0.2-1.0); Calcium 9.6 mg/dl (8.6-10.3); Creatinine Clr Calc Pharmacy 52.8 ml/min; Est GFR (African American) 69.6 ml/min; Globulin 3.2 gm/dl (2.5-4.0); Magnesium 2.1 mg/dl (1.7-2.4); Potassium 4.4 mmol/L (3.5-5.1); Total Protein 7.6 gm/dl (6.0-8.3)
--- NOTE | 2024-02-22 18:16 | Emergency Department Note ---
Impression & Plan Abdominal pain, Nausea & vomiting, Acute UTI, Constipation ED Provider Note Provider: Efrain Lai MD DATE OF SERVICE: 02/22/2024 CHIEF COMPLAINT: Abdominal pain, high blood sugars HISTORY OF PRESENT ILLNESS: Patient is a 69-year-old female history of CVA, DVT, osteoporosis, and SBO recent admission several weeks ago presenting here today reporting high blood sugars and some abdominal discomfort. Unfortunately due to volume and acuity did have a bit of wait here. Reports since Sunday has been experiencing lower abdominal discomfort and hard stools. Has been using MiraLAX solution but only had very small hard bowel movement today. Has been having nausea and vomiting issues. Decreased intake. No fevers. Denies significant chest pain or shortness of breath. No loss of conscious reported. Denies significant urinary symptoms to me. Did not send a trip and scraped her right knee and bumped her head a little bit but denies any significant headache or new numbness or tingling. She states this does feel somewhat similar to her SBO recently. Does have a history of diverticulitis but this does not feel quite the same. Prior cholecystectomy and hysterectomy reported. PAST MEDICAL HISTORY: As noted above MEDICATIONS: Reviewed home medications. SOCIAL HISTORY: Non-smoker PHYSICAL EXAM: GENERAL: alert and oriented in no acute distress on stretcher Head: normocephalic and atraumatic EYES: No injection, discharge or icterus. PERRL, EOMI. NECK: Trachea midline. Supple No midline posterior head pain. ENT: Mucous membranes pink and moist. LUNGS: Airway patent. No retractions. Breath sounds clear with good air entry bilaterally. HEART: Regular rate and rhythm. No chest wall tenderness ABDOMEN: Soft and non-tender, without guarding or rebound. SKIN: Acyanotic, warm, dry, without rashes EXTREMITIES: Without swelling, tenderness or deformity NEUROLOGICAL: No focal deficits. No aphasia. No facial droop or slurred speech. Ambulatory. CONTINUOUS CARDIAC MONITORING: was ordered and showed a heart rate of bpm in Patient's laboratory studies and imaging reviewed. Differential includes Appendicitis, diverticulitis, UTI, obstruction, mesenteric ischemia, aortic pathology, inflammatory bowel disease, renal colic, PUD, pancreatitis, biliary pathology, hernia, volvulus, constipation, traumatic injury, head injury as well as other pathologies. IMPRESSION/MEDICAL DECISION MAKING: Reviewed recent discharge summary for SBO. Blood work here does show hyperglycemia blood sugar around 300 without leukocytosis or severe anemia. No severe electrolyte abnormalities signs of renal dysfunction with some pseudohyponatremia. Blood work without evidence of hepatitis or pancreatitis. Urinalysis is concerning for infection. Not endorsing significant infections but does appear significantly positive. Given that she did hit her head the other day and does complain of some headache, with use of Plavix a CT of the head will be obtained. Doubt cervical spine injury or thoracic injury otherwise. Given some Zofran for nausea. Several allergies and trying to avoid narcotics as this will likely worsen any constipation issues she may have. Did receive a liter of IV fluid here. Given the positive UA we will treat with a dose of ceftriaxone here. CT of the abdomen pelvis without acute findings of diverticulitis or obstruction per radiology report. Do notice some stool burden and constipation may be contributing to symptomatologies. Discussed with patient findings. Blood sugars been quite high and with the findings of possible urinary tract infection or abdominal discomfort with nausea and vomiting beyond the bowel regimen discussed possibility of enema as well as observation. CT head without acute findings per radiology and that she did strike her head. DIAGNOSIS: Acute UTI, lower abdominal pain/constipation, hyperglycemia secondary to type 2 diabetes DISPOSITION: Hospitalist will evaluate Patient was agreeable with this plan. Past Med/Surg History Problem List (Updated 02/22/24 @ 23:21 by Efrain Lai M.D.) Constipation (Acute) Acute UTI (Acute) Nausea & vomiting (Acute) Nausea & vomiting (Acute) Hyperglycemia (Acute) Hernia, umbilical (Acute) Abdominal pain (Acute) Vomiting (Acute) SBO (small bowel obstruction) (Acute) Lumbar radiculopathy Degenerative disc disease, lumbar Chest pain Precordial chest pain (Acute) Ambulatory dysfunction (Acute) Vomiting (Acute) Headache (Acute) Accidental medication overdose (Acute) Hyperglycemia (Acute) Hemarthrosis involving knee joint Contusion of bone Intertrochanteric fracture of left femur Hypothyroidism Closed left humeral fracture (Acute) Acute pain of left hip (Acute) Contusion of rib on left side (Acute) Inability to ambulate due to hip (Acute) Status post fall (Acute) History of CVA (cerebrovascular accident) x2 1990s History of pulmonary embolism Ambulatory dysfunction Fall (Acute) Multiple fractures of ribs of right side (Acute) Fracture of toe of right foot (Acute) Cellulitis of leg, right (Acute) Fibula fracture Distal radius fracture, left Closed fracture of radial styloid (Acute) Neuropathy (Chronic) Osteoporosis (Chronic) 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 (Chronic) Hypothyroidism (Chronic) Anxiety (Chronic) Depression (Chronic) DVT (deep venous thrombosis) (Chronic) Dyslipidemia (Chronic) DM type 2 (diabetes mellitus, type 2) (Chronic) insulin dependent Hypertension (Chronic) Lumbar transverse process fracture (Chronic) Multiple rib fractures (Chronic) Thoracic compression fracture (Chronic) Medical History Cellulitis of great toe of right foot Cellulitis of foot, right Surgical History History of oophorectomy S/P left knee arthroscopy H/O dilation and curettage H/O abdominal surgery small bowel repair lysis of adhesions History of hysterectomy History of cholecystectomy History of tubal ligation Family History Father Lung cancer Diabetes Sister Stomach cancer Social History Smoking Status: Never smoker Tobacco Type: Cigarettes Second Hand Exposure: No; Hx Alcohol Use: Yes Hx Substance Use: No Preferred Language: Mongolian Communication Ability: Effective Visual Impairment: No Limitations Hearing Ability: Normal Hand Outside Cutter Required: No Beliefs That Will Affect Care: None marital status: Current Living Situation: Spouse Current Living Situation Comment: with spouse How many Children do You have: 0 Feels Safe at Home: Yes Assistive Devices: Cane, CPAP and Walker Allergies Allergies Allergy/AdvReac Type Severity Reaction Status Date / Time adhesive Allergy Intermediate RASH Verified 02/22/24 19:12 Iodinated Contrast Media Allergy Intermediate burning Verified 02/22/24 19:12 and aching in veins latex Allergy Intermediate RASH Verified 02/22/24 19:12 Penicillins Allergy Intermediate n/v, rash Verified 02/22/24 19:12 Anesthetics - Amide Type - AdvReac Intermediate Vomiting Verified 02/22/24 19:12 Select A [Anesthetics - Amide Type] Anesthetics - Juju Type- AdvReac Intermediate Vomiting Verified 02/22/24 19:12 Parabens hepatitis B virus vaccine AdvReac Intermediate CHEST Verified 02/22/24 19:12 TIGHTNESS WITH 2ND DOSE. ketorolac AdvReac Intermediate ITCHING. Verified 02/22/24 19:12 tromethamine AdvReac Intermediate ITCHING. Verified 02/22/24 19:12 aspirin AdvReac Unknown CONTRAINDICATED---currently Verified 02/22/24 19:12 with gastric ulcer, per pt Home Meds Home Medications Medication Instructions Recorded Confirmed bupropion HCl 100 mg tablet See Rx Instructions .Route .COMPLEX 03/19/23 02/22/24 cholecalciferol (vitamin D3) 25 25 mcg PO DAILY 03/19/23 02/22/24 mcg (1,000 unit) capsule (Vitamin D3) clopidogrel 75 mg tablet 75 mg PO DAILY 03/19/23 02/22/24 dulaglutide 4.5 mg/0.5 mL 4.5 mg subcut WK 03/19/23 02/22/24 subcutaneous pen injector (Trulicity) insulin glargine 100 unit/mL (3 40 unit subcut BID 03/19/23 02/22/24 mL) subcutaneous pen (Lantus Solostar U-100 Insulin) rosuvastatin 20 mg tablet 20 mg PO DAILY 03/19/23 02/22/24 sertraline 100 mg tablet 200 mg PO DAILY 03/19/23 02/22/24 levothyroxine 137 mcg tablet 137 mcg PO DAILYBB 02/22/24 02/22/24 omeprazole 20 mg capsule,delayed 20 mg PO DAILYBB 02/22/24 02/22/24 release ondansetron 4 mg disintegrating 4 mg translingual Q8H PRN 02/22/24 02/22/24 tablet NAUSEA/VOMITING Previous Rx's Medication Instructions Recorded lisinopril 40 mg tablet (Zestril) 40 mg PO DAILY #30 tabs 03/23/23 nifedipine 30 mg tablet,extended 30 mg PO QAM #30 tabs 03/23/23 release 24 hr (Procardia XL) spironolactone 25 mg tablet 25 mg PO DAILY #30 tabs 03/23/23 Results & Data (ED) Vital Signs Vital Signs - 24 hr 02/22/24 16:10 02/22/24 20:19 Temperature 36.5 C Temperature Source Temporal Artery Scan Pulse Rate 95 H 93 H Respiratory Rate 20 Respiratory Effort / Characteristics Non-Labored Spontaneous Respiratory Depth Normal Blood Pressure 187/95 H Blood Pressure Mean 125 Pulse Oximetry 96 Oxygen Delivery Method Room Air Sepsis Recent Fever Within 48 Hours No Sepsis New/Unexplained Change in Mental Status N/A Sepsis Action Taken by Nursing No Action Required Laboratory Data 02/22/24 16:55 02/22/24 16:55 Lab Results 02/22/24 02/22/24 02/22/24 Range/Units 16:15 16:55 19:41 WBC 5.15 (4.8-10.8) K/ul RBC 3.84 L (4.20-5.40) M/uL Hgb 11.6 L (12.0-16.0) g/dl Hct 34.4 L (37.0-47.0) % MCV 89.6 (80.0-100.0) fL MCH 30.2 (25.0-34.0) pg MCHC 33.7 (32.0-36.0) g/dL RDW Std Deviation 39.4 (36.4-46.3) fL RDW Coeff of Dia 12.2 (11.5-14.5) % Plt Count 111 L (130-400) K/uL MPV 10.3 (9.4-12.4) fL Immature Gran % (Auto) 0.4 % Neut % (Auto) 64.6 % Lymph % (Auto) 26.6 % [place] % (Auto) 6.4 % Eos % (Auto) 1.4 % Baso % (Auto) 0.6 % Neut # (Auto) 3.33 (1.40-6.50) K/uL Lymph # (Auto) 1.37 (1.20-3.40) K/uL [place] # (Auto) 0.33 (0.11-0.59) K/uL Eos # (Auto) 0.07 (0.00-0.50) K/uL Baso # (Auto) 0.03 (0.00-0.20) K/uL Immature Gran # (Auto) 0.02 (0.01-0.20) K/uL Sodium 135 L (136-145) mmol/L Potassium 4.4 (3.5-5.1) mmol/L Chloride 103 (98-107) mmol/L Carbon Dioxide 25 (21-32) mmol/L Anion Gap 7 (3-11) BUN 21 (6-23) mg/dl Creatinine 0.97 (0.6-1.2) mg/dl Est Cr Clr Drug Dosing 52.8 ml/min Est GFR ( Amer) 69.6 ml/min Est GFR (Non-Af Amer) 60.0 ml/min BUN/Creatinine Ratio 21.6 H (10-20) Glucose 297 H (70-99(Fasting)) mg/dl POC Glucose 345 H* 160 H (70-99) mg/dl Estimat Average Glucose 143 mg/dl Hemoglobin A1c 6.6 H (4.5-5.6) % Lactate (0.4-2.0) mmol/L Calcium 9.6 (8.6-10.3) mg/dl Magnesium 2.1 (1.7-2.4) mg/dl Total Bilirubin 0.5 (0.2-1.0) mg/dl AST 24 (13-39) U/L ALT 20 (7-52) U/L Alkaline Phosphatase 110 H (34-104) U/L Total Protein 7.6 (6.0-8.3) gm/dl Albumin 4.4 (3.4-5.0) gm/dl Globulin 3.2 (2.5-4.0) gm/dl Albumin/Globulin Ratio 1.4 (0.9-2) Lipase 67 (11-82) U/L Urine Color Yellow Urine Appearance Clear (Clear) Urine pH 5.5 (4.5-7.5) Ur Specific [place] 1.026 (1.000-1.030) Urine Protein Trace H (Negative) Urine Glucose (UA) 2+ H (Negative) Urine Ketones Negative (Negative) Urine Blood 1+ H (Negative) Urine Nitrite Negative (Negative) Urine Bilirubin Negative (Negative) Urine Urobilinogen Negative (Negative) Ur Leukocyte Esterase 2+ H (Negative) Urine WBC (Auto) 21-50 H (0-5) /hpf Urine RBC (Auto) 3-5 H (0-2) /hpf U Hyaline Cast (Auto) 0-2 (0-2) /lpf U Epithel Cells (Auto) 0-2 (0-2) /hpf Urine Bacteria (Auto) None Seen (None Seen) 02/22/24 Range/Units 19:42 WBC (4.8-10.8) K/ul RBC (4.20-5.40) M/uL Hgb (12.0-16.0) g/dl Hct (37.0-47.0) % MCV (80.0-100.0) fL MCH (25.0-34.0) pg MCHC (32.0-36.0) g/dL RDW Std Deviation (36.4-46.3) fL RDW Coeff of Dia (11.5-14.5) % Plt Count (130-400) K/uL MPV (9.4-12.4) fL Immature Gran % (Auto) % Neut % (Auto) % Lymph % (Auto) % [place] % (Auto) % Eos % (Auto) % Baso % (Auto) % Neut # (Auto) (1.40-6.50) K/uL Lymph # (Auto) (1.20-3.40) K/uL [place] # (Auto) (0.11-0.59) K/uL Eos # (Auto) (0.00-0.50) K/uL Baso # (Auto) (0.00-0.20) K/uL Immature Gran # (Auto) (0.01-0.20) K/uL Sodium (136-145) mmol/L Potassium (3.5-5.1) mmol/L Chloride (98-107) mmol/L Carbon Dioxide (21-32) mmol/L Anion Gap (3-11) BUN (6-23) mg/dl Creatinine (0.6-1.2) mg/dl Est Cr Clr Drug Dosing ml/min Est GFR ( Amer) ml/min Est GFR (Non-Af Amer) ml/min BUN/Creatinine Ratio (10-20) Glucose (70-99(Fasting)) mg/dl POC Glucose (70-99) mg/dl Estimat Average Glucose mg/dl Hemoglobin A1c (4.5-5.6) % Lactate 0.9 (0.4-2.0) mmol/L Calcium (8.6-10.3) mg/dl Magnesium (1.7-2.4) mg/dl Total Bilirubin (0.2-1.0) mg/dl AST (13-39) U/L ALT (7-52) U/L Alkaline Phosphatase (34-104) U/L Total Protein (6.0-8.3) gm/dl Albumin (3.4-5.0) gm/dl Globulin (2.5-4.0) gm/dl Albumin/Globulin Ratio (0.9-2) Lipase (11-82) U/L Urine Color Urine Appearance (Clear) Urine pH (4.5-7.5) Ur Specific [place] (1.000-1.030) Urine Protein (Negative) Urine Glucose (UA) (Negative) Urine Ketones (Negative) Urine Blood (Negative) Urine Nitrite (Negative) Urine Bilirubin (Negative) Urine Urobilinogen (Negative) Ur Leukocyte Esterase (Negative) Urine WBC (Auto) (0-5) /hpf Urine RBC (Auto) (0-2) /hpf U Hyaline Cast (Auto) (0-2) /lpf U Epithel Cells (Auto) (0-2) /hpf Urine Bacteria (Auto) (None Seen) Administered Medications Sodium Chloride (Nss) 1,000 mls @ 60 mls/hr IV .[id number] ONE Stop: 02/23/24 13:08 Last Admin: 02/22/24 22:00 Dose: 60 mls/hr Documented By: CRISTY Insulin Aspart (Insulin Aspart Per Unit Charge) 0 units SC ACHS BRENDA Stop: 03/23/24 20:29 Last Admin: 02/22/24 22:12 Dose: 1 units Documented By: CRISTY Co-signed By: JACIEL Discontinued Medications Sodium Chloride (Nss) 1,000 mls @ 999 mls/hr IV .[id number] ONE Stop: 02/22/24 17:43 Last Infusion: 02/22/24 20:32 Dose: Infused Documented By: Admin: 02/22/24 17:01 Dose: 999 mls/hr Documented By: EARL Ceftriaxone Sodium (Rocephin) 2,000 mg in 50 mls @ 100 mls/hr IV NOW STA Stop: 02/22/24 19:54 Last Infusion: 02/22/24 20:32 Dose: Infused Documented By: Admin: 02/22/24 19:35 Dose: 100 mls/hr Documented By: CRISTY Cefepime HCl (Maxipime) 2,000 mg in 20 mls @ 5 mls/min IV NOW STA; Protocol Stop: 02/22/24 20:27 Last Admin: 02/22/24 21:56 Dose: 5 mls/min Documented By: CRISTY Insulin Glargine (Lantus Per Unit Charge) 15 units SQ NOW STA Stop: 02/22/24 20:30 Last Admin: 02/22/24 22:12 Dose: 15 units Documented By: CRISTY Co-signed By: JACIEL Lactulose (Lactulose Syrup 30 Gm/45 Ml Udp) 30 gm PO NOW STA Stop: 02/22/24 19:50 Last Admin: 02/22/24 22:14 Dose: 30 gm Documented By: CRISTY Metoprolol Tartrate (Metoprolol Tartrate 1 Mg/Ml Vial) 2.5 mg IV NOW STA Stop: 02/22/24 19:52 Last Admin: 02/22/24 21:56 Dose: 2.5 mg Documented By: CRISTY Ondansetron HCl (Ondansetron Inj 2 Mg/Ml 2 Ml Vial) 4 mg IV NOW STA Stop: 02/22/24 18:28 Last Admin: 02/22/24 19:35 Dose: 4 mg Documented By: CRISTY Senna/Docusate Sodium (Docusate Sodium/Senna 50/8.6mg Tab) 1 tab PO NOW STA Stop: 02/22/24 19:50 Last Admin: 02/22/24 22:16 Dose: Not Given Documented By: CRISTY Imaging Data Radiologist's Impression: Abdomen/Pelvis CT 02/22/24 17:55 CT SCAN OF THE ABDOMEN AND PELVIS WITHOUT IV CONTRAST CLINICAL HISTORY: Generalized abdominal pain. History of small bowel obstructions. COMPARISON STUDY: Prior abdominal CT scans, most recently dated 02/15/2024. TECHNIQUE: CT scan of the abdomen and pelvis is performed from the lung bases to the proximal femora. Images are reviewed in the axial, sagittal, and coronal planes. IV contrast was not administered for this examination. Note that the examination was performed in significantly suboptimal fashion without oral and IV contrast. A dose lowering technique was utilized adhering to the principles of ALARA. CT DOSE: 1262.1 mGy.cm FINDINGS: Lung bases: The heart is normal in size and without pericardial effusion. There is calcification of the mitral annulus. The lung bases are clear. Liver: The unenhanced liver is enlarged, measuring 20.9 cm in length. The liver is cirrhotic in morphology and heterogeneous and attenuation. There is nodularity of the hepatic surface contour. There is no intrahepatic biliary ductal dilatation. Gallbladder: Surgically absent noting clips in the gallbladder fossa. Spleen: The spleen is enlarged measuring 15.3 cm in length. Pancreas: The unenhanced pancreas is grossly unremarkable. Adrenal glands: Unremarkable. Kidneys: The unenhanced kidneys are normal in size and without hydronephrosis. There are no renal calculi identified. There is no evidence of contour deforming renal mass lesion. Abdominal vasculature: The abdominal aorta is normal in course and caliber noting mild atherosclerotic calcification. Stomach and bowel: There is no bowel obstruction. Moderate fecal retention is seen throughout the colon. There are loops of small bowel matted against the ventral abdominal wall, likely related to adhesions. The appendix is well- visualized and normal. Peritoneum: No intraperitoneal free air or abdominal ascites is seen. A midline surgical scar is noted. There is a small fat-containing supraumbilical hernia seen on image #201. Lymphadenopathy: None. Pelvic viscera: The bladder is normal as visualized. The uterus is surgically absent. No adnexal lesion is seen. Skeletal structures: The skeletal structures are osteopenic. There are chronic compression deformities of T11, L1, L3, and L4. Mild spondylosis is observed. No lytic or blastic lesions are seen. Chronic deformity and postsurgical change is noted in the left proximal femur. There are chronic/healed bilateral rib fractures. IMPRESSION: 1. No acute infectious or inflammatory findings are identified in the abdomen or pelvis. 2. There is no bowel obstruction. 3. Cirrhotic liver morphology and splenomegaly. 4. Additional findings as above. ACT 112: Negative or not required by law. Electronically signed by: Félix Cisneros M.D. 02/22/2024 6:[address] 02/22/24 18:29 CT SCAN OF THE BRAIN WITHOUT IV CONTRAST CLINICAL HISTORY: Fall. Head injury. COMPARISON STUDY: CT of the brain dated 02/15/2024. TECHNIQUE: Unenhanced axial CT scan of the brain is performed from the vertex to the skull base. A dose lowering technique was utilized adhering to the principles of ALARA. CT DOSE: 547.75 mGy.cm FINDINGS: Brain parenchyma: There is age-related involutional change noting moderate subcortical and periventricular microangiopathic disease. There is no hemorrhage, mass effect, or evidence of acute territorial ischemia by CT criteria. Abernathy-white matter differentiation is preserved. No extra-axial fluid collection is seen. Ventricles, sulci, cisterns: Prominent secondary to involutional change. Intracranial vasculature: There is atherosclerotic calcification of the cavernous carotid arteries. Calvarium: The skeletal structures are osteopenic. No depressed calvarial fracture is seen. Sinuses and mastoids: The visualized paranasal sinuses are clear. The mastoid air cells are well pneumatized. Orbits: The bony orbits are grossly intact. There are bilateral ocular lens implants. IMPRESSION: There is no hemorrhage, mass effect, or evidence of acute territorial ischemia by CT criteria. ACT 112: Negative or not required by law. Electronically signed by: Félix Cisneros M.D. 02/22/2024 7:07 PM Discharge Plan Visit Data Chief Complaint: Referred by Doctor Stated Complaint: ABD PAIN, CONSTIPATION, HIGH SUGAR ED Provider: Efrain Lai Discharge Problem: Abdominal pain, Nausea & vomiting, Acute UTI, Constipation Patient Disposition: Being Evaluated by Hospitalist Discharge Problem: Abdominal pain Qualifiers: Abdominal location: lower abdomen, unspecified Qualified Code(s): R10.30 - Lower abdominal pain, unspecified Constipation Qualifiers: Constipation type: unspecified constipation type Qualified Code(s): K59.00 - Constipation, unspecified
--- NOTE | 2024-02-22 18:47 | CT Scan Report ---
CT SCAN OF THE ABDOMEN AND PELVIS WITHOUT IV CONTRAST CLINICAL HISTORY: Generalized abdominal pain. History of small bowel obstructions. COMPARISON STUDY: Prior abdominal CT scans, most recently dated 02/15/2024. TECHNIQUE: CT scan of the abdomen and pelvis is performed from the lung bases to the proximal femora. Images are reviewed in the axial, sagittal, and coronal planes. IV contrast was not administered for this examination. Note that the examination was performed in significantly suboptimal fashion withou t oral and IV contrast. A dose lowering technique was utilized adhering to the principles of ALARA. CT DOSE: 1262.1 mGy.cm FINDINGS: Lung bases: The heart is normal in size and without pericardial effusion. There is calcification of t he mitral annulus. The lung bases are clear. Liver: The unenhanced liver is enlarged, measuring 20.9 cm in length. The liver is cirrhotic in morph ology and heterogeneous and attenuation. There is nodularity of the hepatic surface contour. There is no intrahepatic biliary ductal dilatation. Gallbladder: Surgically absent noting clips in the gallbladder fossa. Spleen: The spleen is enlarged measuring 15.3 cm in length. Pancreas: The unenhanced pancreas is grossly unremarkable. Adrenal glands: Unremarkable. Kidneys: The unenhanced kidneys are normal in size and without hydronephrosis. There are no renal aleks culi identified. There is no evidence of contour deforming renal mass lesion. Abdominal vasculature: The abdominal aorta is normal in course and caliber noting mild atheroscleroti c calcification. Stomach and bowel: There is no bowel obstruction. Moderate fecal retention is seen throughout the col on. There are loops of small bowel matted against the ventral abdominal wall, likely related to adhes ions. The appendix is well-visualized and normal. Peritoneum: No intraperitoneal free air or abdominal ascites is seen. A midline surgical scar is note d. There is a small fat-containing supraumbilical hernia seen on image #201. Lymphadenopathy: None. Pelvic viscera: The bladder is normal as visualized. The uterus is surgically absent. No adnexal lesi on is seen. Skeletal structures: The skeletal structures are osteopenic. There are chronic compression deformitie s of T11, L1, L3, and L4. Mild spondylosis is observed. No lytic or blastic lesions are seen. Chronic deformity and postsurgical change is noted in the left proximal femur. There are chronic/healed bila teral rib fractures. IMPRESSION: 1. No acute infectious or inflammatory findings are identified in the abdomen or pelvis. 2. There is no bowel obstruction. 3. Cirrhotic liver morphology and splenomegaly. 4. Additional findings as above. ACT 112: Negative or not required by law. Electronically signed by: Félix Cisneros M.D. 02/22/2024 6:45 PM
--- NOTE | 2024-02-22 19:09 | CT Scan Report ---
CT SCAN OF THE BRAIN WITHOUT IV CONTRAST CLINICAL HISTORY: Fall. Head injury. COMPARISON STUDY: CT of the brain dated 02/15/2024. TECHNIQUE: Unenhanced axial CT scan of the brain is performed from the vertex to the skull base. A do se lowering technique was utilized adhering to the principles of ALARA. CT DOSE: 547.75 mGy.cm FINDINGS: Brain parenchyma: There is age-related involutional change noting moderate subcortical and periventri cular microangiopathic disease. There is no hemorrhage, mass effect, or evidence of acute territorial ischemia by CT criteria. Abernathy-white matter differentiation is preserved. No extra-axial fluid collec tion is seen. Ventricles, sulci, cisterns: Prominent secondary to involutional change. Intracranial vasculature: There is atherosclerotic calcification of the cavernous carotid arteries. Calvarium: The skeletal structures are osteopenic. No depressed calvarial fracture is seen. Sinuses and mastoids: The visualized paranasal sinuses are clear. The mastoid air cells are well pneu matized. Orbits: The bony orbits are grossly intact. There are bilateral ocular lens implants. IMPRESSION: There is no hemorrhage, mass effect, or evidence of acute territorial ischemia by CT iraj lizama. ACT 112: Negative or not required by law. Electronically signed by: Félix Cisneros M.D. 02/22/2024 7:07 PM
[2024-02-22] MEDS: ONDANSETRON INJ 2 MG/ML 2 ML VIAL IV STA (19:35)
[2024-02-22] MEDS: cefTRIAXone SODIUM 2,000 MG/50 ML BAG IV STA (19:35)
--- NOTE | 2024-02-22 20:24 | History & Physical Report ---
Date of Service February 22, 2024 Assessment & Plan (1) Asymptomatic hypertensive urgency: Plan: Multifactorial: Abdominal discomfort from constipation and complicated UTI, no sepsis for now Possible medication noncompliance from possible functional disability (Patient not aware of [facility] home Rx listed on outpatient med list) hyperlipidemia on statin Rx hx PE not on anticoagulation secondary to recurrent falls 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 NAFLD cirrhosis, no overt decompensation hx history of gastroparesis DM 2 insulin requiring, marked hyperglycemia secondary to stress, possible noncompliance, well-controlled as of recent hemoglobin A1c of 5.20 January 2024 hypothyroidism, TSH slightly elevated from last month dementia as per records, patient mentating well Admit to medical telemetry Analgesia, bowel regimen Facilitate home [facility] Urine CS, Cefepime Basal bolus insulin, ISS BG goal 1 10-1 40, carb count coverage, update hemoglobin A1c PT OT eval DVT prophylaxis. SCDs Re: Thrombocytopenia Full code Patient requesting updates providers. Mr. Dayne Fine, contact #[phone]. Text document was generated using [email or web address] voice recognition software. It may contain grammatical or spelling errors. Kindly contact undersigned for clarification of any documentation item in question. History of Present Illness Chief Complaint: Fall, abdominal pain, high sugar Primary Care Provider: Adria Hilliard MD History obtained from patient, family, and records. Medical history significant for hypertension, hyperlipidemia, PE not on anticoagulation secondary to recurrent falls, 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, NAFLD cirrhosis, history of gastroparesis, DM 2 insulin requiring, hypothyroidism, mood disorder, dementia as per records, intention tremors, chronic thrombocytopenia. Recent confinement last month for SBO and possible UTI. SBO resolved with conservative management. No growth on urine CS. Patient not feeling well following discharge from hospital. Appetite not too good. Achy abdominal pain and constipation symptoms. Blood sugar elevated despite compliance with home insulin. Not taking some pills in the afternoon because she feels pills are making her sicker. Increased frequency and symptoms the last few days. No fever, no chills. Worsening abdominal pain going to the chest. Constipation despite MiraLAX Rx. Patient brought to the ER by for evaluation. SBP 180s upon arrival at the ER. BSG 300s IV ceftriaxone administered at the ER for possible UTI. Medical History as above Surgical History : Oophorectomy, knee surgery, D&C, cholecystectomy, hysterectomy, BTL, adhesiolysis Family History : Heart disease, DM Personal/Social history : Non-smoker, no EtOH intake, retired [employer] employee Allergies Allergy/AdvReac Type Severity Reaction Status Date / Time adhesive Allergy Intermediate RASH Verified 02/22/24 19:12 Iodinated Contrast Media Allergy Intermediate burning Verified 02/22/24 19:12 and aching in veins latex Allergy Intermediate RASH Verified 02/22/24 19:12 Penicillins Allergy Intermediate n/v, rash Verified 02/22/24 19:12 Anesthetics - Amide Type - AdvReac Intermediate Vomiting Verified 02/22/24 19:12 Select A [Anesthetics - Amide Type] Anesthetics - Juju Type- AdvReac Intermediate Vomiting Verified 02/22/24 19:12 Parabens hepatitis B virus vaccine AdvReac Intermediate CHEST Verified 02/22/24 19:12 TIGHTNESS WITH 2ND DOSE. ketorolac AdvReac Intermediate ITCHING. Verified 02/22/24 19:12 tromethamine AdvReac Intermediate ITCHING. Verified 02/22/24 19:12 aspirin AdvReac Unknown CONTRAINDICATED---currently Verified 02/22/24 19:12 with gastric ulcer, per pt Home Medications Medication Instructions Recorded Confirmed Type bupropion HCl 100 mg tablet See Rx Instructions .Route .COMPLEX 03/19/23 02/22/24 History cholecalciferol (vitamin D3) 25 25 mcg PO DAILY 03/19/23 02/22/24 History mcg (1,000 unit) capsule (Vitamin D3) clopidogrel 75 mg tablet 75 mg PO DAILY 03/19/23 02/22/24 History dulaglutide 4.5 mg/0.5 mL 4.5 mg subcut WK 03/19/23 02/22/24 History subcutaneous pen injector (Trulicity) insulin glargine 100 unit/mL (3 40 unit subcut BID 03/19/23 02/22/24 History mL) subcutaneous pen (Lantus Solostar U-100 Insulin) rosuvastatin 20 mg tablet 20 mg PO DAILY 03/19/23 02/22/24 History sertraline 100 mg tablet 200 mg PO DAILY 03/19/23 02/22/24 History lisinopril 40 mg tablet (Zestril) 40 mg PO DAILY #30 tabs 03/23/23 02/22/24 Rx nifedipine 30 mg tablet,extended 30 mg PO QAM #30 tabs 03/23/23 02/22/24 Rx release 24 hr (Procardia XL) spironolactone 25 mg tablet 25 mg PO DAILY #30 tabs 03/23/23 02/22/24 Rx levothyroxine 137 mcg tablet 137 mcg PO DAILYBB 02/22/24 02/22/24 History omeprazole 20 mg capsule,delayed 20 mg PO DAILYBB 02/22/24 02/22/24 History release ondansetron 4 mg disintegrating 4 mg translingual Q8H PRN 02/22/24 02/22/24 History tablet NAUSEA/VOMITING carvedilol 3.125 mg tablet mg 02/23/24 History Past Med/Surg History Problem List (Updated 02/23/24 @ 08:47 by Jose Carlos Luevano MD) Asymptomatic hypertensive urgency Constipation (Acute) Acute UTI (Acute) Nausea & vomiting (Acute) Nausea & vomiting (Acute) Hyperglycemia (Acute) Hernia, umbilical (Acute) Abdominal pain (Acute) Vomiting (Acute) SBO (small bowel obstruction) (Acute) Lumbar radiculopathy Degenerative disc disease, lumbar Chest pain Precordial chest pain (Acute) Ambulatory dysfunction (Acute) Vomiting (Acute) Headache (Acute) Accidental medication overdose (Acute) Hyperglycemia (Acute) Hemarthrosis involving knee joint Contusion of bone Intertrochanteric fracture of left femur Hypothyroidism Closed left humeral fracture (Acute) Acute pain of left hip (Acute) Contusion of rib on left side (Acute) Inability to ambulate due to hip (Acute) Status post fall (Acute) History of CVA (cerebrovascular accident) x2 1990s History of pulmonary embolism Ambulatory dysfunction Fall (Acute) Multiple fractures of ribs of right side (Acute) Fracture of toe of right foot (Acute) Cellulitis of leg, right (Acute) Fibula fracture Distal radius fracture, left Closed fracture of radial styloid (Acute) Neuropathy (Chronic) Osteoporosis (Chronic) 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 (Chronic) Hypothyroidism (Chronic) Anxiety (Chronic) Depression (Chronic) DVT (deep venous thrombosis) (Chronic) Dyslipidemia (Chronic) DM type 2 (diabetes mellitus, type 2) (Chronic) insulin dependent Hypertension (Chronic) Lumbar transverse process fracture (Chronic) Multiple rib fractures (Chronic) Thoracic compression fracture (Chronic) Medical History Cellulitis of great toe of right foot Cellulitis of foot, right Surgical History History of oophorectomy S/P left knee arthroscopy H/O dilation and curettage H/O abdominal surgery small bowel repair lysis of adhesions History of hysterectomy History of cholecystectomy History of tubal ligation Family History Father Lung cancer Diabetes Sister Stomach cancer Social History Smoking Status: Never smoker Tobacco Type: Cigarettes Second Hand Exposure: No; Hx Alcohol Use: No Hx Substance Use: No Preferred Language: [place] Communication Ability: Effective Visual Impairment: No Limitations Hearing Ability: Normal 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 Beliefs That Will Affect Care: None marital status: Current Living Situation: Spouse Current Living Situation Comment: with spouse How many Children do You have: 0 Feels Safe at Home: Yes Assistive Devices: Cane, CPAP and Walker Review of Systems Review of Systems: As per HPI, all other systems reviewed and negative Physical Exam Physical Exam: GENERAL: Slightly uncomfortable, no respiratory distress SKIN: Normal color, warm HEENT: [place] palpebral conjunctivae, no ptosis, dry buccal mucosa NECK : Supple, no tenderness CHEST : CTA, no tenderness HEART : RRR, no obvious murmurs ABDOMEN: Some distention, hypogastric tenderness EXTREMITIES : No LE swelling/tenderness, no other conspicuous deformities noted NEUROLOGIC : Coherent, no facial asymmetry, no other gross focality Results & Data Results & Data Vital Signs (Past 12 Hours) Vital Signs Temp Pulse Resp BP Pulse Ox O2 Del Method 02/22/24 20:19 93 H 02/22/24 16:10 36.5 C 95 H 20 187/95 H 96 Room Air Laboratory Results Laboratory Results WBC 5.15 K/ul (4.8-10.8) 02/22/24 16:55 RBC 3.84 M/uL (4.20-5.40) L 02/22/24 16:55 Hgb 11.6 g/dl (12.0-16.0) L 02/22/24 16:55 Hct 34.4 % (37.0-47.0) L 02/22/24 16:55 MCV 89.6 fL (80.0-100.0) 02/22/24 16:55 MCH 30.2 pg (25.0-34.0) 02/22/24 16:55 MCHC 33.7 g/dL (32.0-36.0) 02/22/24 16:55 RDW Std Deviation 39.4 fL (36.4-46.3) 02/22/24 16:55 RDW Coeff of Dia 12.2 % (11.5-14.5) 02/22/24 16:55 Plt Count 111 K/uL (130-400) L 02/22/24 16:55 MPV 10.3 fL (9.4-12.4) 02/22/24 16:55 Immature Gran % (Auto) 0.4 % 02/22/24 16:55 Neut % (Auto) 64.6 % 02/22/24 16:55 Lymph % (Auto) 26.6 % 02/22/24 16:55 [place] % (Auto) 6.4 % 02/22/24 16:55 Eos % (Auto) 1.4 % 02/22/24 16:55 Baso % (Auto) 0.6 % 02/22/24 16:55 Neut # (Auto) 3.33 K/uL (1.40-6.50) 02/22/24 16:55 Lymph # (Auto) 1.37 K/uL (1.20-3.40) 02/22/24 16:55 [place] # (Auto) 0.33 K/uL (0.11-0.59) 02/22/24 16:55 Eos # (Auto) 0.07 K/uL (0.00-0.50) 02/22/24 16:55 Baso # (Auto) 0.03 K/uL (0.00-0.20) 02/22/24 16:55 Immature Gran # (Auto) 0.02 K/uL (0.01-0.20) 02/22/24 16:55 Sodium 135 mmol/L (136-145) L 02/22/24 16:55 Potassium 4.4 mmol/L (3.5-5.1) 02/22/24 16:55 Chloride 103 mmol/L (98-107) 02/22/24 16:55 Carbon Dioxide 25 mmol/L (21-32) 02/22/24 16:55 Anion Gap 7 (3-11) 02/22/24 16:55 BUN 21 mg/dl (6-23) 02/22/24 16:55 Creatinine 0.97 mg/dl (0.6-1.2) 02/22/24 16:55 Est Cr Clr Drug Dosing 52.8 ml/min 02/22/24 16:55 Est GFR ( Amer) 69.6 ml/min 02/22/24 16:55 Est GFR (Non-Af Amer) 60.0 ml/min 02/22/24 16:55 BUN/Creatinine Ratio 21.6 (10-20) H 02/22/24 16:55 Glucose 297 mg/dl (70-99(Fasting)) H 02/22/24 16:55 POC Glucose 160 mg/dl (70-99) H 02/22/24 19:41 Lactate 0.9 mmol/L (0.4-2.0) 02/22/24 19:42 Calcium 9.6 mg/dl (8.6-10.3) 02/22/24 16:55 Magnesium 2.1 mg/dl (1.7-2.4) 02/22/24 16:55 Total Bilirubin 0.5 mg/dl (0.2-1.0) 02/22/24 16:55 AST 24 U/L (13-39) 02/22/24 16:55 ALT 20 U/L (7-52) 02/22/24 16:55 Alkaline Phosphatase 110 U/L (34-104) H 02/22/24 16:55 Total Protein 7.6 gm/dl (6.0-8.3) 02/22/24 16:55 Albumin 4.4 gm/dl (3.4-5.0) 02/22/24 16:55 Globulin 3.2 gm/dl (2.5-4.0) 02/22/24 16:55 Albumin/Globulin Ratio 1.4 (0.9-2) 02/22/24 16:55 Lipase 67 U/L (11-82) 02/22/24 16:55 Urine Color Yellow 02/22/24 16:55 Urine Appearance Clear (Clear) 02/22/24 16:55 Urine pH 5.5 (4.5-7.5) 02/22/24 16:55 Ur Specific [place] 1.026 (1.000-1.030) 02/22/24 16:55 Urine Protein Trace (Negative) H 02/22/24 16:55 Urine Glucose (UA) 2+ (Negative) H 02/22/24 16:55 Urine Ketones Negative (Negative) 02/22/24 16:55 Urine Blood 1+ (Negative) H 02/22/24 16:55 Urine Nitrite Negative (Negative) 02/22/24 16:55 Urine Bilirubin Negative (Negative) 02/22/24 16:55 Urine Urobilinogen Negative (Negative) 02/22/24 16:55 Ur Leukocyte Esterase 2+ (Negative) H 02/22/24 16:55 Urine WBC (Auto) 21-50 /hpf (0-5) H 02/22/24 16:55 Urine RBC (Auto) 3-5 /hpf (0-2) H 02/22/24 16:55 U Hyaline Cast (Auto) 0-2 /lpf (0-2) 02/22/24 16:55 U Epithel Cells (Auto) 0-2 /hpf (0-2) 02/22/24 16:55 Urine Bacteria (Auto) None Seen (None Seen) 02/22/24 16:55 Impressions Abdomen/Pelvis CT 02/22/24 17:55 CT SCAN OF THE ABDOMEN AND PELVIS WITHOUT IV CONTRAST CLINICAL HISTORY: Generalized abdominal pain. History of small bowel obstructions. COMPARISON STUDY: Prior abdominal CT scans, most recently dated 02/15/2024. TECHNIQUE: CT scan of the abdomen and pelvis is performed from the lung bases to the proximal femora. Images are reviewed in the axial, sagittal, and coronal planes. IV contrast was not administered for this examination. Note that the examination was performed in significantly suboptimal fashion without oral and IV contrast. A dose lowering technique was utilized adhering to the principles of ALARA. CT DOSE: 1262.1 mGy.cm FINDINGS: Lung bases: The heart is normal in size and without pericardial effusion. There is calcification of the mitral annulus. The lung bases are clear. Liver: The unenhanced liver is enlarged, measuring 20.9 cm in length. The liver is cirrhotic in morphology and heterogeneous and attenuation. There is nodularity of the hepatic surface contour. There is no intrahepatic biliary ductal dilatation. Gallbladder: Surgically absent noting clips in the gallbladder fossa. Spleen: The spleen is enlarged measuring 15.3 cm in length. Pancreas: The unenhanced pancreas is grossly unremarkable. Adrenal glands: Unremarkable. Kidneys: The unenhanced kidneys are normal in size and without hydronephrosis. There are no renal calculi identified. There is no evidence of contour deforming renal mass lesion. Abdominal vasculature: The abdominal aorta is normal in course and caliber noting mild atherosclerotic calcification. Stomach and bowel: There is no bowel obstruction. Moderate fecal retention is seen throughout the colon. There are loops of small bowel matted against the ventral abdominal wall, likely related to adhesions. The appendix is well-visual ized and normal. Peritoneum: No intraperitoneal free air or abdominal ascites is seen. A midline surgical scar is noted. There is a small fat-containing supraumbilical hernia seen on image #201. Lymphadenopathy: None. Pelvic viscera: The bladder is normal as visualized. The uterus is surgically absent. No adnexal lesion is seen. Skeletal structures: The skeletal structures are osteopenic. There are chronic compression deformities of T11, L1, L3, and L4. Mild spondylosis is observed. No lytic or blastic lesions are seen. Chronic deformity and postsurgical change is noted in the left proximal femur. There are chronic/healed bilateral rib fractures. IMPRESSION: 1. No acute infectious or inflammatory findings are identified in the abdomen or pelvis. 2. There is no bowel obstruction. 3. Cirrhotic liver morphology and splenomegaly. 4. Additional findings as above. ACT 112: Negative or not required by law. Electronically signed by: Félix Cisneros M.D. 02/22/2024 6:[address] 02/22/24 18:29 CT SCAN OF THE BRAIN WITHOUT IV CONTRAST CLINICAL HISTORY: Fall. Head injury. COMPARISON STUDY: CT of the brain dated 02/15/2024. TECHNIQUE: Unenhanced axial CT scan of the brain is performed from the vertex to the skull base. A dose lowering technique was utilized adhering to the principles of ALARA. CT DOSE: 547.75 mGy.cm FINDINGS: Brain parenchyma: There is age-related involutional change noting moderate subcortical and periventricular microangiopathic disease. There is no hemorrhage, mass effect, or evidence of acute territorial ischemia by CT criteria. Abernathy-white matter differentiation is preserved. No extra-axial fluid collection is seen. Ventricles, sulci, cisterns: Prominent secondary to involutional change. Intracranial vasculature: There is atherosclerotic calcification of the cavernous carotid arteries. Calvarium: The skeletal structures are osteopenic. No depressed calvarial fracture is seen. Sinuses and mastoids: The visualized paranasal sinuses are clear. The mastoid air cells are well pneumatized. Orbits: The bony orbits are grossly intact. There are bilateral ocular lens implants. IMPRESSION: There is no hemorrhage, mass effect, or evidence of acute territorial ischemia by CT criteria. ACT 112: Negative or not required by law. Electronically signed by: Félix Cisneros M.D. 02/22/2024 7:07 PM Diagnostic Findings EKG as per my interpretation :Rate 90, NSR, normal axis, RBBB, no ischemia
[2024-02-22] MEDS ORDERED: CARBOHYDRATES FOR HYPOGLYCEMIA PO PRN (20:29)
[2024-02-22] MEDS ORDERED: GLUCAGON FOR INJ 1 MG VIAL SQ PRN (20:29)
[2024-02-22] MEDS ORDERED: GLUCOSE 40% GEL 15 GM TUBE PO PRN (20:29)
[2024-02-22] MEDS ORDERED: ACETAMINOPHEN 500 MG TAB PO PRN (20:29)
[2024-02-22] MEDS ORDERED: GLUCOSE 10 TAB/TUBE PO PRN (20:29)
[2024-02-22] MEDS ORDERED: DEXTROSE 50% 50 ML SYRINGE IV PRN (20:29)
[2024-02-22] MEDS: CEFEPIME 2,000 MG/20 ML VIAL IV STA (21:56)
[2024-02-22] MEDS: METOPROLOL TARTRATE 1 MG/ML VIAL IV STA (21:56)
[2024-02-22] MEDS: LANTUS PER UNIT CHARGE SQ STA (22:12)
[2024-02-22] MEDS: INSULIN ASPART PER UNIT CHARGE SC SCH (22:12)
[2024-02-22] MEDS: LACTULOSE SYRUP 30 GM/45 ML UDP PO STA (22:14)
[2024-02-22] MEDS: DOCUSATE SODIUM/SENNA 50/8.6MG TAB PO STA (22:16)
[2024-02-22 22:28] LABS: Estimated Average Glucose 143 mg/dl; Hemoglobin A1C 6.6 % (4.5-5.6)
[2024-02-22] MEDS: oxyCODONE HCL IR 5 MG TAB (IMMEDIATE RELEASE) PO PRN (23:51)
[2024-02-23] MEDS: buPROPion HCl 100 MG TABLET PO SCH ×2 (01:23→08:04)
[2024-02-23 05:07] LABS: Basophils # (auto) 0.04 K/uL (0.00-0.20); Basophils % (auto) 0.8 %; Eosinophils # (auto) 0.11 K/uL (0.00-0.50); Eosinophils % (auto) 2.2 %; Hematocrit (blood only) 31.4 % (37.0-47.0); Hemoglobin 10.5 g/dl (12.0-16.0); Immature Granulocytes # (auto) 0.02 K/uL (0.01-0.20); Immature Granulocytes % (auto) 0.4 %; Lymphocytes # (auto) 1.37 K/uL (1.20-3.40); Lymphocytes % (auto) 27.9 %; Mean Corpuscular Hemoglobin 30.1 pg (25.0-34.0); Mean Corpuscular Hgb Conc 33.4 g/dL (32.0-36.0); Mean Platelet Volume 9.9 fL (9.4-12.4); Monocytes # (auto) 0.33 K/uL (0.11-0.59); Monocytes % (auto) 6.7 %; Neutrophils # (auto) 3.04 K/uL (1.40-6.50); Platelet Count 100 K/uL (130-400); RDW Coefficient of Variation 12.3 % (11.5-14.5); Red Blood Count 3.49 M/uL (4.20-5.40); White Blood Count 4.91 K/ul (4.8-10.8)
[2024-02-23 05:20] LABS: BUN Creatinine Ratio 21.8 (10-20); Calcium 8.6 mg/dl (8.6-10.3); Creatinine Clr Calc Pharmacy 65.7 ml/min; Est GFR (African American) 90.5 ml/min; Est GFR (Non-African American) 78.1 ml/min; Potassium 3.8 mmol/L (3.5-5.1)
[2024-02-23] MEDS: PANTOprazole 40 MG TAB PO SCH (06:22)
[2024-02-23] MEDS: LEVOTHYROXINE SODIUM 137 MCG TABLET PO SCH (06:22)
[2024-02-23] MEDS: SERTRALINE HCL 100 MG TABLET PO SCH (08:03)
[2024-02-23] MEDS: carvediloL 3.125 MG TAB PO SCH (08:03)
[2024-02-23] MEDS: SPIRONOLACTONE 25 MG TAB PO SCH (08:03)
[2024-02-23] MEDS: CLOPIDOGREL BISULFATE 75 MG TAB PO SCH (08:04)
[2024-02-23] MEDS: NIFEdipine EXTENDED REL 30 MG TABCR PO SCH (08:04)
[2024-02-23] MEDS: ROSUVASTATIN CALCIUM 20 MG TAB PO SCH (08:04)
[2024-02-23] MEDS: CHOLECALCIFEROL 25 MCG (1000 UNITS) TAB PO SCH (08:04)
[2024-02-23] MEDS: lisinopril 40 MG TAB PO SCH (08:04)
[2024-02-23] MEDS: LANTUS PER UNIT CHARGE SQ SCH (08:05)
[2024-02-23] MEDS: DOCUSATE SODIUM/SENNA 50/8.6MG TAB PO SCH (08:05)
[2024-02-23] MEDS: CEFEPIME 2,000 MG in SYRINGE 0 ML IV SCH (08:05)
--- OUTSIDE RECORDS SUMMARY | 2024-02-23 08:12 | External Medical Summary | Summary of Care ---
Author Name Unknown Organization [facility] Address [address] [place] [address] Phone [phone] Care Team Providers Care Gis Consultant Name Role Phone Adria Hilliard MD Primary Care Provider [phone] Reason for Visit * Reason Onset Date Comments Appointment 02/18/2024 Encounter Details Date Type Department Care Team (Late st Contact Info) Description 02/18/2024 Telephone Care at Home [address] [place] [address] Services, Scheduling [address] [place] [address] Appointment Allergies Active Allergy Reactions Criticality Noted Date Comments Adhesive Tape 11/18/2002 Aspirin 09/17/2003 stomach ulcer Hepatitis B Virus Vaccines Other (Please comment) 02/10/2014 Chest tightness with 2nd of 3 in series. Latex 09/17/2003 skin sensitivity Other - Drugs 10/09/2003 See scanned list of meds she "can" tolerate; per patient. Also allergic to anesthesia pt reports headache and vomiting post Penicillins 02/25/1999 rash documented as of this encounter (statuses as of 02/18/2024) Medications Medication Sig Dispensed Refills Start Date End Date Status Cholecalciferol (VITAMIN D) 1000 units Tablet daily 30 Tab 5 06/04/2018 Active OneTouch Verio Flex System w/Device Kit Use to test blood sugars 4 times a day. 1 Kit 07/07/2020 Active CPAP every night at bedtime. Active Ondansetron 4 MG Oral Tablet Disintegrating (Zofran)Indications:N ausea Place on tongue 1 Tablet every 8 hours as needed for Nausea. dissolve on tongue. 20 Tablet 06/06/2022 Active OneTouch Verio In Vitro Strip (Glucose Blood)Indications:Typ e 2 diabetes mellitus with hemoglobin A1c goal of less than 8.0% ([facility]),Type 2 diabetes mellitus with diabetic nephropathy, without long-term current use of insulin ([facility]),Type 2 diabetes mellitus with diabetic nephropathy, with long-term current use of insulin ([facility]),Type 2 diabetes mellitus with diabetic polyneuropathy, with long-term current use of insulin ([facility]) Use to check sugars once daily E 11.9 100 Strip 3 06/11/2023 Active [email or web address] Delica Lancets 33GIndications:Type 2 diabetes mellitus with hemoglobin A1c goal of less than 8.0% ([facility]),Type 2 diabetes mellitus with diabetic nephropathy, without long-term current use of insulin ([facility]),Type 2 diabetes mellitus with diabetic nephropathy, with long-term current use of insulin ([facility]),Type 2 diabetes mellitus with diabetic polyneuropathy, with long-term current use of insulin ([facility]) Use to check sugars daily E 11.9 100 Each 1 06/11/2023 Active Dexcom G7 Sensor Use as directed. Change every 10 days. Supplied by [employer] [phone] Active Lisinopril 40 MG Oral TabletIndications:Typ e 2 diabetes mellitus with hemoglobin A1c goal of less than 8.0% ([facility]),HTN, goal below 140/90 Take 1 Tablet by mouth in the morning. 100 Tablet 1 10/18/2023 Active Trulicity 4.5 MG/0.5ML Subcutaneous Solution Pen-injector (Dulaglutide)Indicati ons:Type 2 diabetes mellitus with hemoglobin A1c goal of less than 8.0% ([facility]) Inject 4.5 mg under the skin once a week. 6 mL 3 10/18/2023 Active BD Pen Needle Micro U/F 32G X 6 MM (NOVOFINE 32G PEN NEEDLE)Indications:Ty pe 2 diabetes mellitus with hemoglobin A1c goal of less than 8.0% ([facility]) Use daily with lantus injection 100 Each 4 10/18/2023 Active Rosuvastatin Calcium 20 MG Oral Tablet (Crestor)Indications: Type 2 diabetes mellitus with hemoglobin A1c goal of less than 8.0% ([facility]),Dyslipidemia, goal to be determined TAKE 1 TABLET BY MOUTH EVERY DAY IN THE MORNING 100 Tablet 4 10/18/2023 Active buPROPion HCl 100 MG Oral Tablet (Wellbutrin)Indicatio ns:Major depressive disorder, recurrent severe without psychotic features ([facility]) Take one and one-half tablets (150mg) by mouth in the morning, and one tablet (100mg) at noon. 250 Tablet 1 10/18/2023 Active Clopidogrel Bisulfate 75 MG Oral Tablet (pLAVix)Indications:C erebrovascular disease, arteriosclerotic, post-stroke TAKE 1 TABLET BY MOUTH EVERY DAY IN THE MORNING 100 Tablet 10/18/2023 Active Levothyroxine Sodium 137 MCG Oral TabletIndications:Hyp othyroidism, unspecified type Take 1 Tablet by mouth in the morning. (at least 30 min prior to breakfast or other meds). 100 Tablet 1 10/18/2023 Active NIFEdipine ER 30 MG Oral Tablet Extended Release 24 Hour (Adalat CC)Indications:HTN, goal below 140/90 Take 1 Tablet by mouth in the morning. 100 Tablet 1 10/18/2023 Active Sertraline HCl 100 MG Oral Tablet (Zoloft)Indications:M ajor depressive disorder, recurrent severe without psychotic features (HCC) Take 2 Tablets by mouth in the morning. 200 Tablet 1 10/18/2023 Active Spironolactone 25 MG Oral Tablet (Aldactone)Indication s:HTN, goal below 140/90 Take 1 Tablet by mouth in the morning. 100 Tablet 1 10/18/2023 Active Carvedilol 3.125 MG Oral Tablet (Coreg) 1 tablet in the am for one week, if tolerating then increase to 2 tabs in the am for one week 30 Tablet 4 01/15/2024 Active Omeprazole 20 MG Oral Tablet Delayed Release Disintegrating Take by mouth. Active Insulin Glargine Solostar 100 UNIT/ML Subcutaneous Solution Pen-injector (Lantus SoloStar)Indications: Type 2 diabetes mellitus with hemoglobin A1c goal of less than 8.0% (HCC) 40 units daily 30 mL 4 02/11/2024 Active documented as of this encounter (statuses as of 02/18/2024) Active Problems Problem Noted Date Diagnosed Date Type 2 diabetes mellitus with hyperglycemia 11/2023 Depression, unspecified 08/16/2023 Thrombocytopenia 08/16/2023 Portal hypertension 04/05/2023 Cirrhosis of liver with ascites 04/05/2023 Type 2 diabetes mellitus wit h diabetic polyneuropathy, with long-term current use of insulin 08/26/2021 Type 2 diabetes mellitus wit h diabetic nephropathy, with long-term current use of insulin 10/22/2020 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 09/12/2018 History of traumatic fracture 03/13/2018 Overview: Ribs 3 on Right Ribs 3 on Left Lumbar vertebra History of pulmonary embolism 05/25/2017 Controlled substance agreement signed 03/16/2017 MEDICATION USE AGREEMENT 03/16/2017 Premature menopause 02/21/2017 Female stress incontinence 02/21/2017 Intention tremor 02/21/2017 H/O: hysterectomy 02/06/2017 Hypothyroidism 05/30/2016 HTN, goal below 140/90 10/18/2015 Overview: Per HTN Protocol #27. Type 2 diabetes mellitus wit h hemoglobin A1c goal of less than 8.0% 09/09/2015 Overview: ICD-10 update of inactive term DM type 2 causing renal disease 01/11/2015 Generalized osteoarthritis 12/30/2013 ADVANCE DIRECTIVE INFORMATION 02/14/2011 Overview: No, Advance Directive brochure given to patient. -mailed 02/14/2011 Vitamin D deficiency 10/02/2010 DYSLIPIDEMIA, GOAL LDL BELOW 100 07/29/2009 Overview: Per Lipid Taxonomy. CEREBROVASCULAR DZ, POST-STROKE 11/24/2008 Overview: Modified per CVA protocol #8 UPPER EXTREMETY VENOUS THROMBOSIS NOS 03/30/2006 Anticoagulation management encounter 03/30/2006 Major depressive disorder, r ecurrent severe without psychotic features 10/23/2001 Menopause 10/02/2000 Anxiety state 12/30/1999 documented as of this encounter (statuses as of 02/18/2024) Resolved Problems Problem Noted Date Diagnosed Date Resolved Date Alzheimer's dementia without behavioral disturbance 08/26/2021 03/03/2022 Post herpetic neuralgia 08/26/2021 01/0 11/2023 Fracture of transverse proce ss of lumbar vertebra 04/09/2018 08/14/2023 Overview: L2 Fracture of ribs, three, marjan sed, left, initial encounter 04/09/2018 08/14/2023 Overview: 5th,6th, 7th Fracture of ribs, three, marjan sed, right, initial encounter 04/09/2018 08/14/2023 Overview: 7th, 8th, 11th Recurrent falls 08/16/2017 08/14/2023 Type 2 diabetes mellitus wit h diabetic neuropathy, with long-term current use of insulin 06/12/2017 07/18/2022 Overview: More spcecified code listed on PL E11.42 Falls frequently 05/08/2017 05/29/2022 Overview: Duplicate Type 2 diabetes mellitus wit h diabetic neuropathy, unspecified 10/02/2016 06/12/2017 Type 2 diabetes mellitus wit h hemoglobin A1c goal of less than 7.0% 11/18/2015 07/11/2016 Overview: ICD-10 update of inactive term Status post total right knee replacement 05/11/2015 01/19/2017 Chest wall pain 10/10/2013 01/19/2017 HTN, GOAL BELOW 140/80 04/01/201211/16 Overview: Per HTN Protocol #27. Calculus of kidney 02/01/2011 7 Palpitations 12/20/2010 01/19/2017 OBESITY, BMI 30-34 (SEE ACTUAL BMI) 11/04/2009 01/19/2017 Overview: Per Obesity Taxonomy HTN, GOAL BELOW 130/80 09/09/200904/04 Overview: Per HTN Taxonomy. Type 2 diabetes mellitus wit h hemoglobin A1c goal of less than 7.0% 06/10/2009 09/09/2015 Overview: Per Diabetes Taxonomy. ICD-10 update of inactive term Pulmonary embolus 08/20/2008 05/25/2017 Type 2 diabetes mellitus wit h hemoglobin A1c goal of less than 7.0% 06/23/2008 06/10/2009 Overview: Per Diabetes Taxonomy. ICD-10 update of inactive term Vertebral fracture, pathological 06/19/2008 01/19/2017 Overview: Following a fall at home 05/2008 Vertigo 03/25/2008 01/19/2017 Gastroparesis 02/19/2008 01/19/2017 Nausea with vomiting 02/18/2008 017 Abdominal pain, left lower quadrant 02/17/2008 01/19/2017 Diverticulosis of colon 02/06/200804/2017 Bladder disorder 01/13/2008 01/19/2017 DM type 2, not at goal 09/26/200709/21 longterm current use of ant icoagulant therapy 03/30/2006 11/14/2017 Overview: ICD-10 update of inactive term LATERAL EPICONDYLITIS, LEFT 10/26/2005 06/26/2007 SCIATICA, LEFT 08/19/2004 01/19/2017 LUMBAGO 08/19/2004 01/19/2017 Spasm of muscle 08/19/2004 06/26/2007 Vertigo 04/21/2004 06/26/2007 LUMP OR MASS IN BREAST,RIGHT 08/28/2003 06/26/2007 Carpal tunnel syndrome 08/17/200301/19 LUMP OR MASS IN BREAST, RIGHT 08/17/2003 12/15/2003 ABDOMINAL PAIN, LEFT LOWER QUADRANT 08/17/2003 06/26/2007 ABDOMINAL PAIN, LEFT UPPER QUADRANT 08/17/2003 06/26/2007 Type 2 diabetes mellitus wit h hemoglobin A1c goal of less than 7.0% 07/20/2003 09/26/2007 Overview: ICD-10 update of inactive term DJD, BILATERAL KNEES 03/03/2003 017 Abnormal weight gain 03/03/2003 004 OBESITY, UNSPECIFIED 03/03/2003 010 Overview: Per Obesity Taxonomy Organic sleep disorder 09/16/200212/14 Sciatica 05/14/2002 12/15/2003 Constipation 04/28/2002 01/19/2017 Overview: ICD-10 update of inactive term CVA 03/07/2002 11/26/2008 Overview: Modified per CVA protocol #8 HTN, goal below 140/90 04/27/200009/09 Overview: Per HTN Taxonomy. NEUROPATHY IN OTHER DIS 12/30/199909/14 HYPERLIPIDEMIA NEC-NOS 07/29 Overview: Per Lipid Taxonomy. documented as of this encounter (statuses as of 02/18/2024) Immunizations Name Administration Dates Next Due COVID-19 mRNA, LNP-s, No Pre serve, 2-Dose Series (PeopleString) 08/10/2021 COVID-19, MRNA-LNP, 23-24, P F, 50 MCG/0.5 mL, 12 YRS AND ABOVE, IM (MODERNA-Spikevax) 06/20/2023 H1N1 2009 Influenza, IM 10/27/2009 Hepatitis B, 20+ yrs 02/04/2014,12/30/2013 Pneumococcal Conjugate Vacci ne, 20-valent ([id number]) 04/05/2023 Pneumococcal Polysaccharide PPV23 (Pneumovax) 08/26/2021,05/13/2010,12/14/2005 Seasonal Influenza Virus Vac cine, Unspecified Formulation 06/01/2022,06/10/2021,06/06/2019,04/26,06/12/2017,05/02/2016,05/11/2015 ,08/13/2014,05/29/2014,05/21/2013,04/14,05/26/2011,09/27/2010, 0,05/25/2008,05/26/2007,05/22/2006, Seasonal Influenza, PF, 6 M & above, IM , (FluLaval or Fluzone) 06/06/2019,04/26/2018,06/12/2017 Seasonal Influenza, Quadriva lent Hd (Fluzone Hd) 06/01/2022,06/10/2021 Seasonal Influenza, Quadriva lent, No Preserve, IM 05/22/2020,05/02/2016,05/11/2015 Seasonal Influenza, Split, I IV3, With Preserve, Inj 08/13/2014,05/29/2014,05/21/2013,05/06,05/26/2011,09/27/2010,09/29/2009 ,05/25/2008,05/26/2007,05/22/2006 TDAP (age 10 and older)(Boostrix) 12/30/2015 TDAP, Age 7 and older, IM (Adacel) 06/19/2006 documented as of this encounter Social History Tobacco Use Types Packs/Day Years Used Date Smoking Tobacco: Never Smokeless Tobacco: Never Alcohol Use Standard Drinks/Week Comments Not Currently 0 (1 standard drink = 0.6 oz pur e alcohol) rare PHQ-2 Answer Date Recorded PHQ-2 Score -1 05/02/2020 Hunger Vital Sign Answer Date Recorded Within the past 12 months, y ou worried that your food would run out before you got the money to buy more. Never true 03/28/20 23 Within the past 12 months, t he food you bought just didn't last and you didn't have money to get more. Never true 03/28/2023 Childcare Answer Date Recorded Do you feel overwhelmed with taking care of a child, family member or friend? No 03/28/2023 Does your family need help f inding childcare? (Household - for ages 0-17 years) Not on file 03/28/2023 Clothing Answer Date Recorded Have you been unable to get clothing when it was really needed? No 03/28/2023 Is your family able to get c lothes or diapers when needed? (Household - for ages 0-17 years) Not on file 03/28/2023 Personal Safety Answer Date Recorded Do you feel unsafe or have concerns for your saf ety? No 03/28/2023 Do you have concerns for you r family's safety? (Household - for ages 0-17 years) Not on file 03/28/2023 Utilities Answer Date Recorded Do you have trouble paying y our heating, water, or electric bill? No 03/28/2023 Is your family able to pay t he heat, water, or electric bill? (Household - for ages 0-17 years) Not on file 03/28/2023 Does your family have access to good internet? (Household - for ages 0-17 years) Not on file 03/28/2023 Employment Status Answer Date Recorded Are you unemployed or without regular income? No 03/28/2023 Does the household have a re gular source of income? (Household - for ages 0-17 years) Not on file 03/28/2023 Social Connections Answer Date Recorded How often do you feel lonely or isolated from th ose around you? Often 03/28/2023 Financial Resource Strain Answer Date R ecorded Do you have any trouble payi ng for your medications, or do you think you might in the future? No 03/28/2023 Does your family have troubl e paying for medicine? (Household - for ages 0-17 years) Not on file 03/28/2023 Transportation Needs Answer Date Record ed READ ONLY Do you have troubl e getting a ride to medical visits or work? Never True 03/28/2023 Does your family have a hard time getting a ride to doctors visits? (Household - for ages 0-17 years) Not on file 03/28/2023 Has lack of transportation k ept you from medical appointments, meetings, work, or from getting things needed for daily living? Check all that apply. (Adult - for ages 18 years and over) Not on file 03/28/2023 Do you (or your family) have trouble finding or paying for a ride (transportation)? (Household - for ages 0-17 years) Not on file 03/28/2023 Housing Stability Answer Date Recorded Do you currently live in a s helter or have no steady place to sleep at night? No 03/28/2023 READ ONLY Do you think you a re at risk of becoming homeless? No 03/28/2023 Does your family worry about paying for your home or becoming homeless? (Household - for ages 0-17 years) Not on file 0 03/28/2023 Are you homeless or worried that you might be in the future? (Adult - for ages 18 years and over) Not on file Are you (or your family) chema eless or worried that you might be in the future? (Household - for ages 0-17 years) Not on file Food Insecurity Answer Date Recorded Do you need food for this week? No 03/28/2023 Are you able to get enough f ood for your family? (Household - for ages 0-17 years) Not on file 03/28/2023 Does your family need food t his week? (Household - for ages 0-17 years) Not on file 03/28/2023 Do you always have enough fo od for your family? (Household - for ages 0-17 years) Not on file 03/28/2023 Sex and Gender Information Value Date Recorded Sex Assigned at Female 06/06/2019 8:49 AM EDT Gender Identity Female 06/06/2019 8:49 AM EDT Sexual Orientation Straight 06/06/2019 8: 49 AM EDT Job Start Date Occupation Industry Not on file Not on file Not on file documented as of this encounter Miscellaneous Notes * Telephone Encounter - Ness Ospina OSA - 02/18/2024 9:24 AM EDT Care At Home Outreach Call attempt: 2nd Call Call result: Call Successful - Patient enrolled and agreed to visit. Appointment with: Flores Lee PA-C Visit Date: 02/25/24 Visit Time: 12 noon with spouse Ness TONE Romo documented in this encounter Plan of Treatment Upcoming Encounters Date Type Department Care Team (Late st Contact Info) Description 02/25/2024 12:00 PM EDT Home Visit Care at Home [address] [place] [address] Flores Lee PA-C [address] [place] [address] 04/03/2024 10:30 AM EDT Office Visit Pharmacy, [place] [address] [place] [address] [place], [facility] [address] [place] [address] 04/03/2024 11:00 AM EDT [facility] Visit [facility] [address] [place] [facility] [place] [address] Adria Hilliard MD [address] [facility] [place] [id number] Scheduled Procedures Name Priority Associated Diagnoses Date/Ti me COLONOSCOPY FLEXIBLE PROXIMAL DIAGNOSTIC Recall History of colon polyps Health Maintenance Due Date Last Done Comments Cologuard 02/12/2001 Fecal Occult Blood Test 02/12/2001 Sigmoidoscopy 02/12/2001 Depression Monitoring 04/05/2021 04/05/2020 COVID-19 Vaccine ( season) 2023 06/20/2023, 08/10/2021, 12/15/2020, Additional history exists Albumin/Creatinine Ratio 04/05/2024 023, 03/03/2022, 10/24/2021, Additional history exists Influenza Vaccine (FLU shot) (#1) 2024 06/01/2022, 06/01/2022, 06/10/2021, Additional history exists HbA1c 05/13/2024 11/12/2023, 01/0 11/2023, 04/05/2023, Additional history exists Diabetic Foot Exam 08/16/2024 08/16/2023, 0 04/05/2020, 11/14/2017, Additional history exists Mammogram 10/16/2024 10/17/2023, 03/0 01/2024, 10/13/2022, Additional history exists Diabetic Eye Exam 11/04/2024 11/05/2023, , 11/28/2021, Additional history exists TSH 11/11/2024 11/12/2023, 01/0 11/2023, 07/12/2022, Additional history exists DXA Scan 11/21/2024 11/21/2021, 11/11, 07/16/2017, Additional history exists GFR 01/14/2025 01/15/2024, 03/14, 04/05/2023, Additional history exists Zoster Vaccines (1 of 2) 02/10/2025 Pos tponed from 02/12/2006 (Patient Declined After Education) Colonoscopy 12/27/2025 12/27/2020, 12/11, 11/28/2017, Additional history exists Colorectal Cancer Screening 12/27/2025 DTaP,Tdap,and Td Vaccines (3 - Td or Tdap) 12/29/2025 12/30/2015, 06/19/2006 Hepatitis B Vaccine Discontinued 02/04/2014, 4 RETIRED - COLONOSCOPY-EVERY 5 YRS AGES 18-100 Discontinued 12/27/2020, 12/27/2020, 11/28/2017, Additional history exists Pneumococcal Vaccine: 65+ Years Completed 04/05/2023, 08/26/2021, 05/13/2010, Additional history exists HPV (Gardasil) Vaccine Aged Out No lo nger eligible based on patient's age to complete this topic MENINGOCOCCAL (MENACTRA/MENVEO) Aged Out No longer eligible based on patient's age to complete this topic documented as of this encounter Medical Devices Not on filedocumented as of this encounter Care Teams Gis Consultant Relationship Specialty Start Date End Date Adria Hilliard MD [address] [place] [address] PCP - General Family Medicine 09/27/18 documented as of this encounter
--- OUTSIDE RECORDS SUMMARY | 2024-02-23 10:48 | External Medical Summary | Summary of Care ---
Author Name Unknown Organization [facility] Address [address] [place] [address] Phone [phone] Care Team Providers Care [employer] Name Role Phone Adria Hilliard MD Primary Care Provider [phone] Reason for Visit * Reason Onset Date Comments Blood Sugar Problem 02/22/2024 Encounter Details Date Type Department Care Team (Late st Contact Info) Description 02/22/2024 Telephone Centralized Clinical Pharmacy Services, Edmond Miller [address] [place] [address] [place] [id number] [facility] [address] [facility] [place] [place] [facility] [id number] Blood Sugar Problem Allergies Active Allergy Reactions Criticality Noted Date [...] as of this encounter (statuses as of 02/22/2024) Medications Medication Sig Dispensed Refills Start Date End Date Status Cholecalciferol (VITAMIN D) 1000 units Tablet daily 30 Tab 5 06/04/2018 Active Frugal[employer] Verio Flex System w/Device Kit Use to test blood sugars 4 times a day. 1 Kit 07/07/2020 Active CPAP every night at bedtime. Active Ondansetron 4 MG Oral Tablet Disintegrating (Zofran)Indications :Nausea Place on tongue 1 Tablet every 8 hours as needed for Nausea. dissolve on tongue. 20 Tablet 06/06/2022 Active OneTouch Verio In Vitro Strip (Glucose Blood)Indications:T ype 2 diabetes mellitus with hemoglobin A1c goal of less than 8.0% (HCC),Type 2 diabetes mellitus with diabetic nephropathy, without long-term current use of insulin (HCC),Type 2 diabetes mellitus with diabetic nephropathy, with long-term current use of insulin (HCC),Type 2 diabetes mellitus with diabetic polyneuropathy, with long-term current use of insulin ([facility]) Use to check sugars once daily E 11.9 100 Strip 3 06/11/2023 Active OneTouch Delica Lancets 33GIndications:Type 2 diabetes mellitus with hemoglobin A1c goal of less than 8.0% (HCC),Type 2 diabetes mellitus with diabetic nephropathy, without long-term current use of insulin (HCC),Type 2 diabetes mellitus with diabetic nephropathy, with long-term current use of insulin ([facility]),Type 2 diabetes mellitus with diabetic polyneuropathy, with long-term current use of insulin ([facility]) Use to check sugars daily E 11.9 100 Each 1 06/11/2023 Active Dexcom G7 Sensor Use as directed. Change every 10 days. Supplied by [employer] [phone] Active Lisinopril 40 MG Oral TabletIndications:T ype 2 diabetes mellitus with hemoglobin A1c goal of less than 8.0% ([facility]),HTN, goal below 140/90 Take 1 Tablet by mouth in the morning. 100 Tablet 1 10/18/2023 Active Trulicity 4.5 MG/0.5ML Subcutaneous Solution Pen-injector (Dulaglutide)Indica tions:Type 2 diabetes mellitus with hemoglobin A1c goal of less than 8.0% ([facility]) Inject 4.5 mg under the skin once a week. 6 mL 3 10/18/2023 Active Rosuvastatin Calcium 20 MG Oral Tablet (Crestor)Indication s:Type 2 diabetes mellitus with hemoglobin A1c goal of less than 8.0% ([facility]),Dyslipidemia, goal to be determined TAKE 1 TABLET BY MOUTH EVERY DAY IN THE MORNING 100 Tablet 4 10/18/2023 Active buPROPion HCl 100 MG Oral Tablet (Wellbutrin)Indicat ions:Major depressive disorder, recurrent severe without psychotic features (HCC) Take one and one-half tablets (150mg) by mouth in the morning, and one tablet (100mg) at noon. 250 Tablet 1 10/18/2023 Active Clopidogrel Bisulfate 75 MG Oral Tablet (pLAVix)Indications :Cerebrovascular disease, arteriosclerotic, post-stroke TAKE 1 TABLET BY MOUTH EVERY DAY IN THE MORNING 100 Tablet 10/18/2023 Active Levothyroxine Sodium 137 MCG Oral TabletIndications:H ypothyroidism, unspecified type Take 1 Tablet by mouth in the morning. (at least 30 min prior to breakfast or other meds). 100 Tablet 1 10/18/2023 Active NIFEdipine ER 30 MG Oral Tablet Extended Release 24 Hour (Adalat CC)Indications:HTN, goal below 140/90 Take 1 Tablet by mouth in the morning. 100 Tablet 1 10/18/2023 Active Sertraline HCl 100 MG Oral Tablet (Zoloft)Indications :Major depressive disorder, recurrent severe without psychotic features (HCC) Take 2 Tablets by mouth in the morning. 200 Tablet 1 10/18/2023 Active Spironolactone 25 MG Oral Tablet (Aldactone)Indicati ons:HTN, goal below 140/90 Take 1 Tablet by mouth in the morning. 100 Tablet 1 10/18/2023 Active Carvedilol 3.125 MG Oral Tablet (Coreg) 1 tablet in the am for one week, if tolerating then increase to 2 tabs in the am for one week 30 Tablet 01/15/2024 Active Omeprazole 20 MG Oral Tablet Delayed Release Disintegrating Take by mouth. Active Insulin Glargine Solostar 100 UNIT/ML Subcutaneous Solution Pen-injector (Lantus SoloStar)Indication s:Type 2 diabetes mellitus with hemoglobin A1c goal of less than 8.0% (HCC) 40 units daily 30 mL 02/11/2024 Active NovoLOG FlexPen 100 UNIT/ML Subcutaneous Solution Pen-injector (insulin aspart)Indications: Type 2 diabetes mellitus with diabetic polyneuropathy, with long-term current use of insulin (HCC) Inject 5 Units under the skin in the morning and 5 Units at noon and 5 Units in the evening. Inject with meals. 15 mL 02/22/2024 Active BD Pen Needle Micro U/F 32G X 6 MM (NOVOFINE 32G PEN NEEDLE)Indications: Type 2 diabetes mellitus with hemoglobin A1c goal of less than 8.0% (HCC) Use daily with lantus and novolog injections 4 times daily 400 Each 4 02/22/2024 Active BD Pen Needle Micro U/F 32G X 6 MM (NOVOFINE 32G PEN NEEDLE)Indications: Type 2 diabetes mellitus with hemoglobin A1c goal of less than 8.0% (HCC) Use daily with lantus injection 100 Each 4 10/18/2023 Discontinue d(Refill) documented as of this encounter (statuses as of 02/22/2024) Active Problems Problem Noted Date Diagnosed Date Depression, unspecified 08/16/2023 Thrombocytopenia 08/16/2023 Portal hypertension [...] as of this encounter (statuses as of 02/22/2024) Resolved Problems Problem Noted Date Diagnosed Date Resolved Date Type 2 diabetes mellitus with hyperglycemia 08/16/2023 02/19/2024 Alzheimer's dementia without behavioral disturbance 08/26/2021 03/03/2022 Post herpetic neuralgia 08/26/202111/2023 Fracture of transverse proce ss of lumbar [...] lower quadrant 02/17/2008 01/19/2017 Diverticulosis of colon 02/06/2008 06/04/2017 Bladder disorder 01/13/2008 01/19/2017 DM type 2, not at goal 09/26/200709/21 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 (Household - for ages [...] encounter Miscellaneous Notes * Telephone Encounter - Felipa Gonzalez, [facility] - 02/22/2024 3:14 PM EDT Spoke case over with case management. Will send in novolog 5 units with meals. She has been on bolus insulin before Pt is still without trulicity and she was advised to go to the ER with her current symptoms (see other CM note). Felipa Gonzalez, PharmD, BCACP Clinical Pharmacist Medication Therapy Disease Management 02/22/2024, 3:15 PM * Telephone Encounter - Klaudia Mcmanus CPhT - 02/22/2024 2:01 PM EDT Caller's name: Viky Rojas call back number(OFFICE NUMBER FOR ): [phone] Reason for call: Pt states she missed her appt today due to transportation issues but would like to[facility]ak to the [facility] in regards to her BG levels. Pt states she's in the high 200's, into the 300's andis "just not feeling right". Pt reports drinking a lot of water too today and is requesting a return call. Thank you, Klaudia Mcmanus CPhT [employer] II [facility] [address] [place] [address] Dr. Alman[address] [place] [id number] 02/22/2024,2:02 PM documented in this encounter Plan of Treatment Upcoming Encounters Date Type Department Care Team (Late st Contact Info) Description 02/25/2024 12:00 PM EDT Home Visit Care at Home [address] [place] [address] Flores Lee PA-C [address] [place] [address] 03/05/2024 1:30 PM EDT Office Visit Pharmacy, [place] [address] [place] [address] [facility] [address] [place] [address] 04/03/2024 10:30 AM EDT Office Visit Pharmacy, [place] [facility] [place] [address] [place], [facility] [address] [place] [address] 04/03/2024 11:00 AM EDT Office Visit [facility] [address] [place] [facility] [place] [address] Adria Hilliard MD [address] [place] [facility] [place] [address] Scheduled Procedures Name Priority Associated Diagnoses Date/Ti [...] 06/10/2021, Additional history exists HbA1c 05/13/2024 11/12/2023, 0 11/2023, 04/05/2023, Additional history exists Diabetic Foot Exam 08/16/2024 08/16/2023, 0 04/05/2020, 11/14/2017, Additional history exists Mammogram 10/16/2024 10/17/2023, 03/0 01/2024, 10/13/2022, Additional history exists Diabetic Eye Exam 11/04/2024 11/05/2023, , 11/28/2021, Additional history exists TSH 11/11/2024 11/12/2023, 0 11/2023, 07/12/2022, Additional history exists DXA Scan 11/21/2024 11/21/2021, 0408/2021, 07/16/2017, Additional history exists GFR 01/14/2025 01/15/2024, [...] Not on filedocumented as of this encounter Visit Diagnoses Diagnosis Type 2 diabetes mellitus with diabetic polyneuropathy, with long-term current use of insulin (HCC)- Primary Type 2 diabetes mellitus with hemoglobin A1c goal of less than 8.0% (HCC) Type 2 diabetes mellitus with diabetic nephropathy, without long-term current use of insulin (HCC) Type 2 diabetes mellitus with diabetic nephropathy, with long-term current use of insulin (HCC) documented in this encounter Care Teams [employer] Relationship Specialty Start Date End Date Adria Hilliard MD [address] [facility] [place] [address] PCP - General Family Medicine 09/27/18 documented as of this encounter
--- NOTE | 2024-02-23 11:47 | Electrocardiogram Report ---
Test Reason : Blood Pressure : / mmHG Vent. Rate : 087 BPM Atrial Rate : 087 BPM P-R Int : 154 ms QRS Dur : 132 ms QT Int : 408 ms P-R-T Axes : 042 028 032 degrees QTc Int : 490 ms Normal sinus rhythm Right bundle branch block Abnormal ECG When compared with ECG of 13-OCT-2023 18:20, Right bundle branch block has replaced Non-specific intra-ventricular conduction block Confirmed by Alvin Williamson ([id number]) on 02/23/2024 11:47:20 AM Referred By: Adria Hilliard Confirmed By:Alvin Williamson
[2024-02-23] MEDS: PROMETHAZINE HCL 12.5 MG in SODIUM CHLORIDE 0.9% 50 ML IV PRN (12:34)
--- NOTE | 2024-02-23 15:47 | Hospitalist Progress Note ---
Date of Service February 23, 2024 Assessment & Plan (1) Constipation: (2) Suspected UTI: (3) Fall: (4) Chronic generalized abdominal pain: (5) DM type 2 (diabetes mellitus, type 2): (6) Hypertension: Plan Patient presents with a history of uncontrolled glucoses, uncontrolled hy pertension and abdominal pain. Reported that she has been taking MiraLAX for constipation. Per nursing report patient had a large hard bowel movement after enema in the ED. Since then been having multiple loose bowel movements. Suspect this is not any sort of infectious diarrhea, suspect this is most likely due to her treatments for her constipation prior to admission and her bowels cleaning out. Will continue to monitor. Patient will need a regular bowel regimen. Here since she has been in the hospital her blood pressure and glucose has been fairly well-controlled no immediate interventions required. Continue to observe In advance diet Encourage activity Therapies with report of fall Recheck labs in a.m. Admission and Anticipated Discharge Date Admission Date: February 22, 2024 Subjective Patient still complaining of some abdominal discomfort, slightly improved. Also now reporting multiple loose stools after receiving enema in ED Physical Exam Physical Exam: Constitutional: Alert, fatigued in appearance HEENT: Mucous membranes moist. Lungs: Clear to auscultation, decreased, no wheezes rales or rhonchi CV: S1-S2, regular Abdomen: Soft, not distended, mild diffuse tenderness Extremities: No significant edema Neuro: No focal deficits Psych: Cooperative, normal mood Results & Data Results & Data Vital Signs (Past 12 Hours) Vital Signs Pulse Pulse Resp BP BP Pulse Ox O2 Del Method 02/23/24 15:00 67 16 107/60 96 Room Air 02/23/24 12:06 69 17 132/66 98 Room Air 02/23/24 08:03 76 13 96 02/23/24 08:00 146/73 H 02/23/24 07:45 80 18 95 02/23/24 07:17 71 20 143/71 H 98 Room Air 02/23/24 07:03 72 15 95 02/23/24 07:00 143/71 H 02/23/24 07:00 143/71 H Diagnostic Findings Reviewed imaging, laboratory and diagnostic studies. Pertinent findings as below. 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
[2024-02-23] MEDS: DICYCLOMINE HCL 20 MG TAB PO PRN (17:12)
[2024-02-24 07:10] LABS: Hematocrit (blood only) 31.1 % (37.0-47.0); Hemoglobin 10.5 g/dl (12.0-16.0); Mean Corpuscular Hemoglobin 30.9 pg (25.0-34.0); Mean Corpuscular Hgb Conc 33.8 g/dL (32.0-36.0); Mean Corpuscular Volume 91.5 fL (80.0-100.0); Mean Platelet Volume 10.4 fL (9.4-12.4); Platelet Count 104 K/uL (130-400); RDW Coefficient of Variation 12.4 % (11.5-14.5); RDW Standard Deviation 41.1 fL (36.4-46.3); White Blood Count 5.18 K/ul (4.8-10.8)
[2024-02-24 07:46] LABS: Calcium 8.3 mg/dl (8.6-10.3); Est GFR (African American) 82.8 ml/min; Est GFR (Non-African American) 71.4 ml/min; Potassium 4.1 mmol/L (3.5-5.1)
[2024-02-24 08:01] LABS: Thyroid Stimulating Hormone 2.911 uIu/ml (0.300-4.500)
[2024-02-24] MEDS: KETOROLAC TROMETHAMINE 15 MG/ML VIAL IV ONE (12:31)
--- NOTE | 2024-02-24 14:25 | Hospitalist Progress Note ---
Date of Service February 24, 2024 Assessment & Plan (1) Constipation: (2) Fall: (3) DM type 2 (diabetes mellitus, type 2): (4) Hypertension: (5) Diabetic gastroparesis: (6) Irritable bowel syndrome with constipation: (7) Depression: (8) Anxiety: (9) Degenerative arthritis of lumbar spine: Plan Patient presented with abdominal pain, suspect combination of irritable bowel syndrome, significant constipation, depression, get diabetic gastroparesis. Patient also with chronic back pain associated with her degenerative spine disease lumbar spine. Discontinue cefepime, urine culture unremarkable Trial Reglan with meals and at bedtime to help with diabetic gastroparesis and a chronic abdominal pain Scheduled Tylenol for chronic back pain Increase oxycodone dosing to see if that provides relief Continue therapies Patient's blood pressure and glucoses are well-controlled essentially on her home doses of medications, continue to monitor Patient has outpatient appointment with spinal surgeon for her degenerative spine disease Patient aware of probable plans for discharge tomorrow Admission and Anticipated Discharge Date Admission Date: February 22, 2024 Subjective Patient tolerating her meals. Admits to being very depressed. Apparently she spends most of the day by herself. Her is gone all day. She reports that her does not allow her to get a dog and keeps her fairly isolated. She does not understand why her blood pressure and sugars get out of control at home she tries to take the same medicines and eat same way as she does here in the hospital. Physical Exam Physical Exam: Constitutional: Alert HEENT: Mucous membranes moist. Lungs: Clear to auscultation, decreased, no wheezes rales or rhonchi CV: S1-S2, regular Abdomen: Soft, nontender, nondistended Extremities: No significant edema Neuro: No focal deficits Psych: Cooperative, depressed Results & Data Results & Data Vital Signs (Past 12 Hours) Vital Signs Temp Pulse Pulse Resp BP Pulse Ox Pulse Ox 02/24/24 13:50 68 02/24/24 11:15 36.4 C L 68 18 108/66 96 02/24/24 07:50 02/24/24 07:42 36.7 C 73 18 111/64 97 02/24/24 07:00 71 02/24/24 03:23 93 02/24/24 03:00 36.7 C 72 16 101/59 L 94 O2 Del Method O2 Del Method 02/24/24 13:50 02/24/24 11:15 Room Air 02/24/24 07:50 Room Air 02/24/24 07:42 Room Air 02/24/24 07:00 02/24/24 03:23 Room Air 02/24/24 03:00 Room Air Diagnostic Findings Reviewed imaging, laboratory and diagnostic studies. Pertinent findings as below. 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
[2024-02-24] MEDS: oxyCODONE HCL IR 5 MG TAB (IMMEDIATE RELEASE) PO PRN (15:15)
[2024-02-24] MEDS: ACETAMINOPHEN 325 MG TAB PO SCH (15:16)
[2024-02-24] MEDS: METOCLOPRAMIDE HCL 5 MG TABLET PO SCH (15:16)
[2024-02-25] MEDS: POLYETHYLENE (MIRALAX) 17 GM PACK PO PRN (08:50)
[2024-02-25 11:23] VITALS: BP 108/55; RESP 14; TEMP 97.7; O2SAT 98
--- NOTE | 2024-02-25 11:38 | Discharge Summary ---
Discharge Summary Date of Service February 25, 2024 Principal Dx & Hospital Course #1 = Principal Diagnosis (1) Constipation: (2) Fall: (3) DM type 2 (diabetes mellitus, type 2): (4) Hypertension: (5) Diabetic gastroparesis: (6) Irritable bowel syndrome with constipation: (7) Depression: (8) Anxiety: (9) Degenerative arthritis of lumbar spine: Plan Patient was cared for in the hospital. Initially complaining of constipation and was given an enema. This was quite effective and she had several loose stools after that. Her abdominal pain improved. She is not complaining of significant back pain. Reviewed MRI done previously. Does show some significant degenerative spine disease and foraminal stenosis. Patient reports that she does have outpatient appointment scheduled with a spine surgeon. Patient also given additional history consistent with some depression and loneliness at home. Also gives a history consistent with irritable bowel. Gives a history consistent with diabetic gastroparesis. Moving forward we put her on a more significant bowel regimen. We increased her bupropion. We started Reglan. We scheduled Tylenol for her back pain and will introduce some gabapentin. With all these interventions she is significantly improved. She was tolerating her diet. Back and abdominal pain had improved and was tolerable. She was ambulatory. Here in the hospital we actually put her on less insulin that she takes at home and her glucoses are very well-controlled. We put her on her usual blood pressure medications that she takes at home and her blood pressure was well-controlled. I encouraged her to take her medications as we schedule them here in the hospital. I also encouraged her to replicate the meals that she eats here in the hospital since with all those interventions here in the hospital she is stays very stable despite the fact that she said her glucose was fluctuating significantly and her blood pressure was quite elevated at home. She will be discharged to follow-up with her PCP. She can discharge continue her outpatient appointment with the spinal surgeon and continue monitor of her symptoms and chronic medical issues as an outpatient. Notes For Next Care Provider Medication Changes From Visit Bentyl added as needed for abdominal cramps Reglan scheduled for gastroparesis Bupropion increase Insulin dosages at adjusted. Admission HPI Per Admitting Provider History obtained from patient, family, and records. Medical history significant for hypertension, hyperlipidemia, PE not on anticoagulation secondary to recurrent falls, 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, NAFLD cirrhosis, history of gastroparesis, DM 2 insulin requiring, hypothyroidism, mood disorder, dementia as per records, intention tremors, chronic thrombocytopenia. Recent confinement last month for SBO and possible UTI. SBO resolved with conservative management. No growth on urine CS. Patient not feeling well following discharge from hospital. Appetite not too good. Achy abdominal pain and constipation symptoms. Blood sugar elevated despite compliance with home insulin. Not taking some pills in the afternoon because she feels pills are making her sicker. Increased frequency and symptoms the last few days. No fever, no chills. Worsening abdominal pain going to the chest. Constipation despite MiraLAX Rx. Patient brought to the ER by for evaluation. SBP 180s upon arrival at the ER. BSG 300s IV ceftriaxone administered at the ER for possible UTI. Medical History as above Surgical History : Oophorectomy, knee surgery, D&C, cholecystectomy, hysterectomy, BTL, adhesiolysis Family History : Heart disease, DM Personal/Social history : Non-smoker, no EtOH intake, retired [employer] employee Admission Exam Per Admitting Provider See H&P Discharge Exam Constitutional: Alert HEENT: Mucous membranes moist. Lungs: Clear to auscultation, decreased, no wheezes rales or rhonchi CV: S1-S2, regular Abdomen: Soft, nontender, nondistended Extremities: No significant edema Neuro: No focal deficits Psych: Cooperative, mood a little brighter on the day of discharge, still some d epression and anxiety Updated Medication List Medication Instructions Recorded Confirmed Type bupropion HCl 100 mg tablet See Rx Instructions .Route .COMPLEX 03/19/23 02/22/24 History cholecalciferol (vitamin D3) 25 25 mcg PO DAILY 03/19/23 02/22/24 History mcg (1,000 unit) capsule (Vitamin D3) clopidogrel 75 mg tablet 75 mg PO DAILY 03/19/23 02/22/24 History dulaglutide 4.5 mg/0.5 mL 4.5 mg subcut WK 03/19/23 02/22/24 History subcutaneous pen injector (Trulicity) insulin glargine 100 unit/mL (3 40 unit subcut BID 03/19/23 02/22/24 History mL) subcutaneous pen (Lantus Solostar U-100 Insulin) rosuvastatin 20 mg tablet 20 mg PO DAILY 03/19/23 02/22/24 History sertraline 100 mg tablet 200 mg PO DAILY 03/19/23 02/22/24 History lisinopril 40 mg tablet (Zestril) 40 mg PO DAILY #30 tabs 03/23/23 02/22/24 Rx nifedipine 30 mg tablet,extended 30 mg PO QAM #30 tabs 03/23/23 02/22/24 Rx release 24 hr (Procardia XL) spironolactone 25 mg tablet 25 mg PO DAILY #30 tabs 03/23/23 02/22/24 Rx levothyroxine 137 mcg tablet 137 mcg PO DAILYBB 02/22/24 02/22/24 History omeprazole 20 mg capsule,delayed 20 mg PO DAILYBB 02/22/24 02/22/24 History release ondansetron 4 mg disintegrating 4 mg translingual Q8H PRN 02/22/24 02/22/24 History tablet NAUSEA/VOMITING carvedilol 3.125 mg tablet mg 02/23/24 History acetaminophen 325 mg tablet 650 mg (2 x 325 mg) PO QID 30 days 02/25/24 Rx #240 tabs bupropion HCl 100 mg tablet 100 mg PO PM 30 days #30 tabs 02/25/24 Rx bupropion HCl 100 mg tablet 150 mg (1.5 x 100 mg) PO QAM 30 02/25/24 Rx days #45 tabs carvedilol 3.125 mg tablet 3.125 mg PO BIDM 30 days #60 tabs 02/25/24 Rx dicyclomine 20 mg tablet 20 mg PO Q6H PRN abdominal pain, 02/25/24 Rx cramps #10 tabs gabapentin 100 mg capsule 100 mg PO TID #90 caps 02/25/24 Rx metoclopramide HCl 5 mg tablet 5 mg PO ACHS 30 days #120 tabs 02/25/24 Rx polyethylene glycol 3350 17 gram 17 g PO DAILY 30 days #30 ea 02/25/24 Rx oral powder packet (Miralax) sennosides 8.6 mg-docusate sodium 1 tab PO QAM #30 tabs 02/25/24 Rx 50 mg tablet (Senokot-S) Hospital Stay Data Consultations 02/22/24 19:39 ED Decision to Admit Stat Diagnostic Imagining Performed 02/22/24 17:55 CT abd pelvis wo con Stat 02/22/24 18:29 CT head/brain wo con Stat Reviewed imaging, laboratory and diagnostic studies. Pertinent findings as below. Glucose 106 CT of the abdomen showed no significant obstruction Hemoglobin 10.5 Electrolytes stabilizing within normal ranges TSH 2.9 Pending Results Patient Have Any Pending Studies at Discharge: No Discharge Instructions Given to Patient (Per Discharging Provider) Encourage you to be as active as possible Encourage you to mirror your diet and medication dosing timing as closely as possible to when you are in the hospital. Your blood pressure and glucose were well-controlled here in the hospital Total Time Total Time Spent Total Time Spent (In Minutes): 36
[2024-02-25 14:41] VITALS: PULSE 63
== END 2024-02-25 15:10 | disposition home or self-care (01) | DRG 74 ==
LOC: ED 16:07 → EDINP 20:27 → 2W 23:43

== ENCOUNTER 2024-05-02 15:09 | Inpatient (IN) ==
[2024-05-02 16:28] LABS: Basophils # (auto) 0.03 K/uL (0.00-0.20); Basophils % (auto) 0.6 %; Eosinophils # (auto) 0.06 K/uL (0.00-0.50); Eosinophils % (auto) 1.2 %; Hemoglobin 11.9 g/dl (12.0-16.0); Immature Granulocytes # (auto) 0.03 K/uL (0.01-0.20); Immature Granulocytes % (auto) 0.6 %; Lymphocytes # (auto) 1.05 K/uL (1.20-3.40); Lymphocytes % (auto) 20.4 %; Mean Corpuscular Hemoglobin 29.2 pg (25.0-34.0); Mean Corpuscular Hgb Conc 33.1 g/dL (32.0-36.0); Mean Corpuscular Volume 88.5 fL (80.0-100.0); Mean Platelet Volume 10.2 fL (9.4-12.4); Monocytes % (auto) 5.8 %; Neutrophils # (auto) 3.68 K/uL (1.40-6.50); Neutrophils % (auto) 71.4 %; Platelet Count 112 K/uL (130-400); RDW Coefficient of Variation 11.9 % (11.5-14.5); RDW Standard Deviation 38.5 fL (36.4-46.3); Red Blood Count 4.07 M/uL (4.20-5.40); White Blood Count 5.15 K/ul (4.8-10.8)
[2024-05-02 16:30] LABS: Appearance Urine Clear (Clear); Bacteria Urine Automated None Seen (None Seen); Bilirubin Urine Negative (Negative); Blood Urine Trace (Negative); Cast Urine Automated 0-2 /lpf (0-2); Color Urine Yellow; Epithelial Cell Urine Auto 0-2 /hpf (0-2); Glucose Urine UA 3+ (Negative); Ketones Urine Negative (Negative); Leukocyte Esterase Urine Negative (Negative); Nitrite Urine Negative (Negative); Protein Urine Negative (Negative); RBC Urine Automated 0-2 /hpf (0-2); Specific Gravity Urine 1.025 (1.000-1.030); Urobilinogen Urine Negative (Negative); WBC Urine Automated 0-5 /hpf (0-5); pH Urine 5.5 (4.5-7.5)
[2024-05-02 17:23] LABS: Albumin Globulin Ratio 1.5 (0.9-2); Albumin Level 4.6 gm/dl (3.4-5.0); BUN Creatinine Ratio 30.4 (10-20); Bilirubin,Total 0.6 mg/dl (0.2-1.0); Calcium 9.4 mg/dl (8.6-10.3); Est GFR (African American) 74.2 ml/min; Globulin 3.1 gm/dl (2.5-4.0); Potassium 4.6 mmol/L (3.5-5.1); Total Protein 7.7 gm/dl (6.0-8.3)
[2024-05-02] MEDS: SODIUM CHLORIDE 0.9% 1,000 ML IV ONE ×2 (17:43→18:35)
[2024-05-02 17:47] LABS: Magnesium 1.9 mg/dl (1.7-2.4); Phosphorus 4.3 mg/dl (2.5-4.9)
--- NOTE | 2024-05-02 17:54 | Emergency Department Note ---
Impression & Plan Hyperglycemia due to type 2 diabetes mellitus, Dehydration, Headache, Nausea ED Provider Note NAME: RENAN VILLAGRAN AGE: 69 SEX: F : 1955 ARRIVES VIA: Walk-In INFORMANT: Patient ED PROVIDER(S): Spenser Hoffman MD CHIEF COMPLAINT: Dizziness, headache, high blood sugar. PLAN: Disposition: Admit MEDICAL DECISION MAKING: The patient is a pleasant 69-year-old woman with a past medical history of type 2 diabetes, hypertension, hyperlipidemia, GERD, hypothyroidism who presents to the emergency department via walk-in for evaluation of generalized weakness and lightheadedness with associated nausea where she noticed her blood sugar was high this morning in the 300s without having eaten anything. She reports gradual onset headache and blurred vision this morning which is not present at this time. She denies any trouble speaking or extremity weakness. She reports she has been taking her medications as prescribed. She denies any fevers, cough, congestion, diarrhea or urinary symptoms. Of note, the patient did arrive to emergency department during time of high volume, acuity and prolonged emergency department waiting times. Critical pathways initiated from triage. On evaluation the patient is no distress, afebrile with stable vital signs. She appears clinically dry. She has no focal neurologic deficits. Abdomen is benign. WBC within normal limits. H/H similar to prior range values. Platelet 112K similar to prior values. Chemistry without metabolic acidosis. Sodium 129 however in the setting of glucose of 572. BUN/creatinine is 30 consistent with patient's clinically dry appearance. Serum osmolality is concentrated at 314 also consistent with patient's dehydration no mentating normally. LFTs unremarkable. Positive troponin 5.8, within normal limits. UA without evidence of infection. Respiratory BioFire was negative high-sensitivity troponin 5.8, within normal limits. CT of the head negative for acute abnormalities. Repeat PSG following IV hydration with 2 L normal saline improved to 260s. Thus, will defer insulin to admitting team at this time. Case was discussed with Dr. Doe, [facility] hospitalist, who will evaluate the patient for admission. Further management per admitting team. Triage Nursing notes reviewed and agree them. Prior/external medical records reviewed Vital Signs: reviewed Differential diagnosis: Infection, dehydration, metabolic abnormality, hypo/hyperglycemia, electrolyte disturbance, anemia, hypoxia, cardiac sources, intracerebral event, toxicologic, neurologic, as well as other pathologies. ER treatment provided: See below. Diagnostics interpreted by me: ECG: Normal sinus rhythm, 80 bpm, no ectopy. Right bundle branch block, LVH, no overt ST elevation or depression, QTc 484, QRS 136. Similar to February 22, 2024. Cardiac Monitoring: An order for continuous cardiac monitoring was placed and demonstrated normal sinus rhythm, 80 bpm, no ectopy. Laboratory studies: See below Imaging studies: See below Consultation(s): Case was discussed with Dr. Doe, [facility] hospitalist, who will evaluate the patient for admission. HPI: The patient is a pleasant 69-year-old woman with a past medical history of type 2 diabetes, hypertension, hyperlipidemia, GERD, hypothyroidism who presents to the emergency department via walk-in for evaluation of generalized weakness and lightheadedness with associated nausea where she noticed her blood sugar was high this morning in the 300s without having eaten anything. She reports gradual onset headache and blurred vision this morning which is not present at this time. She denies any trouble speaking or extremity weakness. She reports she has been taking her medications as prescribed. She denies any fevers, cough, congestion, diarrhea or urinary symptoms. ROS: See above HPI for pertinent positives & negatives. A total of 10 systems reviewed and were otherwise negative. VITALS:See Below GENERAL: Awake, alert, fatigued-appearing, in no distress HENT: Normocephalic, atraumatic. Oropharynx with dry mucous membranes and otherwise unremarkable. EYES: Normal conjunctiva. Sclera non-icteric. EOMI. No nystamgus. PEARRL. NECK: Supple. No nuchal rigidity. FROM. No JVD. RESPIRATORY: Clear to auscultation. CARDIAC: Regular rate, normal rhythm. Extremities warm and well perfused. Pulses equal. ABDOMEN: Soft, non-distended. No tenderness to palpation. No rebound or guarding. No masses. RECTAL: Deferred. MUSCULOSKELETAL: Chest examination reveals no tenderness. The back is symmetrical on inspection without obvious abnormality. There is no CVA tenderness to palpation. No joint edema. LOWER EXTREMITIES: Calves are equal size bilaterally and non-tender. No edema. No discoloration. NEURO: No focal sensory or motor deficits noted. Cranial nerves II-XII grossly intact. 5/5 strength and SILT x 4 extremities. Intact [id number]. SKIN: No rash or jaundice noted. Spenser Hoffman MD Past Med/Surg History Problem List (Updated 05/04/24 @ 18:39 by Spenser Hoffman MD) Nausea (Acute) Headache (Acute) Dizziness Dehydration (Acute) Hyperglycemia due to type 2 diabetes mellitus (Acute) Hyperglycemia Laceration of hand, right (Acute) Low back pain Other cervical disc degeneration, mid-cervical region, unspecified level Neck pain Degenerative arthritis of lumbar spine Irritable bowel syndrome with constipation Diabetic gastroparesis Chronic generalized abdominal pain Suspected UTI Asymptomatic hypertensive urgency Constipation (Acute) Acute UTI (Acute) Nausea & vomiting (Acute) Hernia, umbilical (Acute) Abdominal pain (Acute) Vomiting (Acute) SBO (small bowel obstruction) (Acute) Lumbar radiculopathy Degenerative disc disease, lumbar Chest pain Precordial chest pain (Acute) Ambulatory dysfunction (Acute) Vomiting (Acute) Headache (Acute) Accidental medication overdose (Acute) Hyperglycemia (Acute) Hemarthrosis involving knee joint Contusion of bone Intertrochanteric fracture of left femur Hypothyroidism Closed left humeral fracture (Acute) Acute pain of left hip (Acute) Contusion of rib on left side (Acute) Inability to ambulate due to hip (Acute) Status post fall (Acute) History of CVA (cerebrovascular accident) x2 1990s History of pulmonary embolism Ambulatory dysfunction Fall (Acute) Multiple fractures of ribs of right side (Acute) Fracture of toe of right foot (Acute) Cellulitis of leg, right (Acute) Fibula fracture Distal radius fracture, left Closed fracture of radial styloid (Acute) Neuropathy (Chronic) Osteoporosis (Chronic) 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 (Chronic) Hypothyroidism (Chronic) Anxiety (Chronic) Depression (Chronic) DVT (deep venous thrombosis) (Chronic) Dyslipidemia (Chronic) DM type 2 (diabetes mellitus, type 2) (Chronic) insulin dependent Hypertension (Chronic) Lumbar transverse process fracture (Chronic) Multiple rib fractures (Chronic) Thoracic compression fracture (Chronic) Medical History Cellulitis of great toe of right foot Cellulitis of foot, right Surgical History History of oophorectomy S/P left knee arthroscopy H/O dilation and curettage H/O abdominal surgery small bowel repair lysis of adhesions History of hysterectomy History of cholecystectomy History of tubal ligation Family History Father Lung cancer Diabetes Sister Stomach cancer Social History Smoking Status: Never smoker Tobacco Type: Cigarettes Second Hand Exposure: No; Hx Alcohol Use: No Hx Substance Use: No Preferred Language: Upper Sorbian Communication Ability: Effective Visual Impairment: No Limitations Hearing Ability: Normal Mix Chemist Required: No Beliefs That Will Affect Care: None marital status: Current Living Situation: Spouse Current Living Situation Comment: with How many Children do You have: 0 Other Information That Helps Us Care for You: No Feels Safe at Home: Yes Safety Concerns: Feels Safe At This Time Assistive Devices: Walker Assistive Devices Comment: uses walker as needed at home, walker provided to pt Allergies Allergies Allergy/AdvReac Type Severity Reaction Status Date / Time adhesive Allergy Intermediate RASH Verified 02/22/24 19:12 Iodinated Contrast Media Allergy Intermediate burning Verified 02/22/24 19:12 and aching in veins latex Allergy Intermediate RASH Verified 02/22/24 19:12 Penicillins Allergy Intermediate n/v, rash Verified 02/22/24 19:12 Anesthetics - Amide Type - AdvReac Intermediate Vomiting Verified 02/22/24 19:12 Select A [Anesthetics - Amide Type] Anesthetics - Juju Type- AdvReac Intermediate Vomiting Verified 02/22/24 19:12 Parabens hepatitis B virus vaccine AdvReac Intermediate CHEST Verified 02/22/24 19:12 TIGHTNESS WITH 2ND DOSE. ketorolac AdvReac Intermediate ITCHING. Verified 02/22/24 19:12 tromethamine AdvReac Intermediate ITCHING. Verified 02/22/24 19:12 aspirin AdvReac Unknown CONTRAINDICATED---currently Verified 02/22/24 19:12 with gastric ulcer, per pt Home Meds Home Medications Medication Instructions Recorded Confirmed bupropion HCl 100 mg tablet 100 mg PO QPM 05/03/24 05/03/24 bupropion HCl 100 mg tablet 150 mg PO DAILYBB 05/03/24 05/03/24 carvedilol 3.125 mg tablet 3.125 mg PO BID 05/03/24 05/03/24 clopidogrel 75 mg tablet 75 mg PO DAILY 05/03/24 05/03/24 gabapentin 300 mg capsule 300 mg PO TID 05/03/24 05/03/24 insulin aspart U-100 100 unit/mL 15 unit subcut UD 05/03/24 05/03/24 (3 mL) subcutaneous pen (Novolog FlexPen U-100 Insulin aspart) insulin glargine 100 unit/mL (3 15 unit subcut BID 05/03/24 05/03/24 mL) subcutaneous pen (Lantus Solostar U-100 Insulin) levothyroxine 137 mcg tablet 137 mcg PO DAILY 05/03/24 05/03/24 lisinopril 40 mg tablet 40 mg PO DAILY 05/03/24 05/03/24 metoclopramide HCl 5 mg tablet 5 mg PO QID PRN Nausea And Vomiting 05/03/24 05/03/24 nifedipine 30 mg tablet,extended 30 mg PO DAILY 05/03/24 05/03/24 release omeprazole 20 mg capsule,delayed 20 mg PO DAILY 05/03/24 05/03/24 release rosuvastatin 20 mg tablet 20 mg PO DAILY 05/03/24 05/03/24 sennosides 8.6 mg-docusate sodium 1 tab PO DAILY 05/03/24 05/03/24 50 mg tablet (Senexon-S) sertraline 100 mg tablet 200 mg PO DAILY 05/03/24 05/03/24 spironolactone 25 mg tablet 25 mg PO DAILY 05/03/24 05/03/24 Results & Data (ED) Vital Signs Vital Signs - 24 hr 05/02/24 15:33 05/02/24 17:44 05/02/24 17:46 Temperature 36.7 C Temperature Source Temporal Artery Scan Pulse Rate 85 69 Pulse Rate [Apical] 86 Pulse Rhythm [Apical] Regular Pulse Strength [Apical] Normal Respiratory Rate 16 13 Respiratory Effort / Characteristics Non-Labored Spontaneous Non-Labored Spontaneous Respiratory Depth Normal Normal Respiratory Pattern Regular Blood Pressure 121/69 Blood Pressure [Left Arm] 160/70 H Blood Pressure Mean 86 Blood Pressure Mean [Left Arm] 100 Blood Pressure Position [Left Arm] Semi-fowlers Pulse Oximetry 99 99 Oxygen Delivery Method Room Air Room Air Sepsis Recent Fever Within 48 Hours No Sepsis New/Unexplained Change in Mental Status No Sepsis Action Taken by Nursing No Action Required 05/02/24 18:32 05/02/24 19:00 05/02/24 21:00 Temperature Temperature Source Pulse Rate Pulse Rate [Apical] 69 69 74 Pulse Rhythm [Apical] Regular Pulse Strength [Apical] Respiratory Rate 15 18 15 Respiratory Effort / Characteristics Non-Labored Spontaneous Non-Labored Spontaneous Non-Labored Spontaneous Respiratory Depth Normal Normal Normal Respiratory Pattern Regular Regular Blood Pressure Blood Pressure [Left Arm] 160/84 H 150/82 H 160/80 H Blood Pressure Mean Blood Pressure Mean [Left Arm] 109 104 106 Blood Pressure Position [Left Arm] Semi-fowlers Semi-fowlers Semi-fowlers Pulse Oximetry 98 97 95 Oxygen Delivery Method Room Air Room Air Room Air Sepsis Recent Fever Within 48 Hours Sepsis New/Unexplained Change in Mental Status Sepsis Action Taken by Nursing Laboratory Data Attestation: I reviewed the patient's lab results. 05/03/24 05:27 05/03/24 05:27 Lab Results 05/02/24 05/02/24 05/02/24 Range/Units 15:35 15:55 16:01 WBC 5.15 (4.8-10.8) K/ul RBC 4.07 L (4.20-5.40) M/uL Hgb 11.9 L (12.0-16.0) g/dl Hct 36.0 L (37.0-47.0) % MCV 88.5 (80.0-100.0) fL MCH 29.2 (25.0-34.0) pg MCHC 33.1 (32.0-36.0) g/dL RDW Std Deviation 38.5 (36.4-46.3) fL RDW Coeff of Dia 11.9 (11.5-14.5) % Plt Count 112 L (130-400) K/uL MPV 10.2 (9.4-12.4) fL Immature Gran % (Auto) 0.6 % Neut % (Auto) 71.4 % Lymph % (Auto) 20.4 % [place] % (Auto) 5.8 % Eos % (Auto) 1.2 % Baso % (Auto) 0.6 % Neut # (Auto) 3.68 (1.40-6.50) K/uL Lymph # (Auto) 1.05 L (1.20-3.40) K/uL [place] # (Auto) 0.30 (0.11-0.59) K/uL Eos # (Auto) 0.06 (0.00-0.50) K/uL Baso # (Auto) 0.03 (0.00-0.20) K/uL Immature Gran # (Auto) 0.03 (0.01-0.20) K/uL PT 10.5 (9.0-12.0) Seconds INR 1.0 (0.9-1.1) Sodium 129 L (136-145) mmol/L Potassium 4.6 (3.5-5.1) mmol/L Chloride 97 L (98-107) mmol/L Carbon Dioxide 25 (21-32) mmol/L Anion Gap 7 (3-11) BUN 28 H (6-23) mg/dl Creatinine 0.92 (0.6-1.2) mg/dl Est Cr Clr Drug Dosing 56.0 ml/min Est GFR ( Amer) 74.2 ml/min Est GFR (Non-Af Amer) 64.0 ml/min BUN/Creatinine Ratio 30.4 H (10-20) Glucose 572 H* (70-99(Fasting)) mg/dl POC Glucose 585 H* (70-99) mg/dl Osmolality 314 H (280-300) mOsm/kg Calcium 9.4 (8.6-10.3) mg/dl Phosphorus 4.3 (2.5-4.9) mg/dl Magnesium 1.9 (1.7-2.4) mg/dl Total Bilirubin 0.6 (0.2-1.0) mg/dl AST 23 (13-39) U/L ALT 16 (7-52) U/L Alkaline Phosphatase 108 H (34-104) U/L Troponin I High Sens 5.8 (0-14) pg/ml Total Protein 7.7 (6.0-8.3) gm/dl Albumin 4.6 (3.4-5.0) gm/dl Globulin 3.1 (2.5-4.0) gm/dl Albumin/Globulin Ratio 1.5 (0.9-2) Urine Color Yellow Urine Appearance Clear (Clear) Urine pH 5.5 (4.5-7.5) Ur Specific [place] 1.025 (1.000-1.030) Urine Protein Negative (Negative) Urine Glucose (UA) 3+ H (Negative) Urine Ketones Negative (Negative) Urine Blood Trace H (Negative) Urine Nitrite Negative (Negative) Urine Bilirubin Negative (Negative) Urine Urobilinogen Negative (Negative) Ur Leukocyte Esterase Negative (Negative) Urine WBC (Auto) 0-5 (0-5) /hpf Urine RBC (Auto) 0-2 (0-2) /hpf U Hyaline Cast (Auto) 0-2 (0-2) /lpf U Epithel Cells (Auto) 0-2 (0-2) /hpf Urine Bacteria (Auto) None Seen (None Seen) Adenovirus (PCR) (NotDetected) B. pertussis DNA (PCR) (NotDetected) B.parapertussis DNA PCR (NotDetected) C. pneumoniae DNA (PCR) (NotDetected) Coronavirus OC43 (PCR) (NotDetected) Coronavirus HKU1 (PCR) (NotDetected) Coronavirus 229E (PCR) (NotDetected) SARS-CoV-2 (PCR) (NotDetected) Coronavirus NL63 (PCR) (NotDetected) Human Metapneumovir PCR (NotDetected) Influenza Type A (PCR) (NotDetected) Influenza Type B (PCR) (NotDetected) M. pneumoniae (PCR) (NotDetected) Parainfluenza 1 (PCR) (NotDetected) Parainfluenza 2 (PCR) (NotDetected) Parainfluenza 3 (PCR) (NotDetected) Parainfluenza 4 (PCR) (NotDetected) RSV (PCR) (NotDetected) Entero/Rhino (PCR) (NotDetected) 05/02/24 05/02/24 05/02/24 Range/Units 18:31 18:37 19:58 WBC (4.8-10.8) K/ul RBC (4.20-5.40) M/uL Hgb (12.0-16.0) g/dl Hct (37.0-47.0) % MCV (80.0-100.0) fL MCH (25.0-34.0) pg MCHC (32.0-36.0) g/dL RDW Std Deviation (36.4-46.3) fL RDW Coeff of Dia (11.5-14.5) % Plt Count (130-400) K/uL MPV (9.4-12.4) fL Immature Gran % (Auto) % Neut % (Auto) % Lymph % (Auto) % [place] % (Auto) % Eos % (Auto) % Baso % (Auto) % Neut # (Auto) (1.40-6.50) K/uL Lymph # (Auto) (1.20-3.40) K/uL [place] # (Auto) (0.11-0.59) K/uL Eos # (Auto) (0.00-0.50) K/uL Baso # (Auto) (0.00-0.20) K/uL Immature Gran # (Auto) (0.01-0.20) K/uL PT (9.0-12.0) Seconds INR (0.9-1.1) Sodium (136-145) mmol/L Potassium (3.5-5.1) mmol/L Chloride (98-107) mmol/L Carbon Dioxide (21-32) mmol/L Anion Gap (3-11) BUN (6-23) mg/dl Creatinine (0.6-1.2) mg/dl Est Cr Clr Drug Dosing ml/min Est GFR ( Amer) ml/min Est GFR (Non-Af Amer) ml/min BUN/Creatinine Ratio (10-20) Glucose (70-99(Fasting)) mg/dl POC Glucose 332 H* 266 H (70-99) mg/dl Osmolality (280-300) mOsm/kg Calcium (8.6-10.3) mg/dl Phosphorus (2.5-4.9) mg/dl Magnesium (1.7-2.4) mg/dl Total Bilirubin (0.2-1.0) mg/dl AST (13-39) U/L ALT (7-52) U/L Alkaline Phosphatase (34-104) U/L Troponin I High Sens (0-14) pg/ml Total Protein (6.0-8.3) gm/dl Albumin (3.4-5.0) gm/dl Globulin (2.5-4.0) gm/dl Albumin/Globulin Ratio (0.9-2) Urine Color Urine Appearance (Clear) Urine pH (4.5-7.5) Ur Specific [place] (1.000-1.030) Urine Protein (Negative) Urine Glucose (UA) (Negative) Urine Ketones (Negative) Urine Blood (Negative) Urine Nitrite (Negative) Urine Bilirubin (Negative) Urine Urobilinogen (Negative) Ur Leukocyte Esterase (Negative) Urine WBC (Auto) (0-5) /hpf Urine RBC (Auto) (0-2) /hpf U Hyaline Cast (Auto) (0-2) /lpf U Epithel Cells (Auto) (0-2) /hpf Urine Bacteria (Auto) (None Seen) Adenovirus (PCR) Not Detected (NotDetected) B. pertussis DNA (PCR) Not Detected (NotDetected) B.parapertussis DNA PCR Not Detected (NotDetected) C. pneumoniae DNA (PCR) Not Detected (NotDetected) Coronavirus OC43 (PCR) Not Detected (NotDetected) Coronavirus HKU1 (PCR) Not Detected (NotDetected) Coronavirus 229E (PCR) Not Detected (NotDetected) SARS-CoV-2 (PCR) Not Detected (NotDetected) Coronavirus NL63 (PCR) Not Detected (NotDetected) Human Metapneumovir PCR Not Detected (NotDetected) Influenza Type A (PCR) Not Detected (NotDetected) Influenza Type B (PCR) Not Detected (NotDetected) M. pneumoniae (PCR) Not Detected (NotDetected) Parainfluenza 1 (PCR) Not Detected (NotDetected) Parainfluenza 2 (PCR) Not Detected (NotDetected) Parainfluenza 3 (PCR) Not Detected (NotDetected) Parainfluenza 4 (PCR) Not Detected (NotDetected) RSV (PCR) Not Detected (NotDetected) Entero/Rhino (PCR) Not Detected (NotDetected) Administered Medications Acetaminophen (Acetaminophen 325 Mg Tab) 650 mg PO Q4H PRN PRN Reason: Pain or Fever Stop: 06/01/24 23:35 Last Admin: 05/03/24 00:00 Dose: 650 mg Documented By: [id number] Hydrocodone Bitart/Acetaminophen (Hydrocodone/Acetamophen 5/325mg Tab) 1 tab PO Q6H PRN PRN Reason: Severe Pain (Scale 7, 8, 9,10) Stop: 05/17/24 18:41 Last Admin: 05/04/24 09:13 Dose: 1 tab Documented By: Admin: 05/03/24 20:07 Dose: 1 tab Documented By: [id number] Bupropion HCl (Bupropion Hcl 100 Mg Tablet) 100 mg PO QPM BRENDA Stop: 06/02/24 20:59 Last Admin: 05/03/24 21:43 Dose: 100 mg Documented By: [id number] Bupropion HCl (Bupropion Hcl 75 Mg Tablet) 150 mg PO DAILYBB BRENDA Stop: 06/02/24 06:29 Last Admin: 05/04/24 05:39 Dose: 150 mg Documented By: [id number] Admin: 05/03/24 05:50 Dose: 150 mg Documented By: [id number] Carvedilol (Carvedilol 3.125 Mg Tab) 3.125 mg PO BID BRENDA Stop: 06/02/24 08:59 Last Admin: 05/04/24 09:20 Dose: 3.125 mg Documented By: Admin: 05/03/24 20:06 Dose: 3.125 mg Documented By: [id number] Admin: 05/03/24 09:46 Dose: 3.125 mg Documented By: PAZ Clopidogrel Bisulfate (Clopidogrel Bisulfate 75 Mg Tab) 75 mg PO DAILY BRENDA Stop: 06/02/24 08:59 Last Admin: 05/04/24 09:20 Dose: Not Given Documented By: Admin: 05/03/24 09:59 Dose: Not Given Documented By: PAZ Gabapentin (Gabapentin 300 Mg Cap) 300 mg PO TID BRENDA Stop: 06/02/24 08:59 Last Admin: 05/04/24 14:40 Dose: 300 mg Documented By: Admin: 05/04/24 09:22 Dose: 300 mg Documented By: Admin: 05/03/24 20:04 Dose: 300 mg Documented By: [id number] Admin: 05/03/24 15:22 Dose: 300 mg Documented By: Admin: 05/03/24 09:54 Dose: 300 mg Documented By: PAZ Heparin Sodium (Porcine) (Heparin Sod 5,000 Unit/0.5 Ml Vial) 5,000 units SQ Q12 BRENDA Stop: 06/02/24 08:59 Last Admin: 05/04/24 09:22 Dose: 5,000 units Documented By: Admin: 05/03/24 20:07 Dose: 5,000 units Documented By: [id number] Admin: 05/03/24 09:54 Dose: 5,000 units Documented By: PAZ Insulin Aspart (Insulin Aspart Per Unit Charge) 0 units SC ACHS [facility] Stop: 06/01/24 23:44 Last Admin: 05/04/24 17:43 Dose: 5 units Documented By: PAZ Co-signed By: OVI Admin: 05/04/24 14:39 Dose: 8 units Documented By: PAZ Co-signed By: RAVEN Admin: 05/04/24 09:19 Dose: 8 units Documented By: PAZ Co-signed By: MARCO Admin: 05/03/24 21:43 Dose: 1 units Documented By: [id number] Co-signed By: ALEJANDRA Admin: 05/03/24 18:17 Dose: 9 units Documented By: PAZ Co-signed By: RAVEN Admin: 05/03/24 13:03 Dose: 10 units Documented By: PAZ Co-signed By: RAVEN Admin: 05/03/24 09:45 Dose: 4 units Documented By: PAZ Co-signed By: RAVEN Admin: 05/03/24 02:01 Dose: 7 units Documented By: [id number] Co-signed By: NATALIA Admin: 05/03/24 00:01 Dose: 5 units Documented By: [id number] Co-signed By: SERGIO Insulin Glargine (Lantus Per Unit Charge) 0 units SQ BID [facility]; Protocol Stop: 06/02/24 20:59 Last Admin: 05/04/24 09:15 Dose: 15 units Documented By: PAZ Co-signed By: MARCO Admin: 05/03/24 21:43 Dose: 15 units Documented By: [id number] Co-signed By: ALEJANDRA Ketorolac Tromethamine (Ketorolac Tromethamine 15 Mg/Ml Vial) 15 mg IV Q6H PRN PRN Reason: Pain Stop: 05/08/24 12:15 Last Admin: 05/04/24 11:44 Dose: 15 mg Documented By: Admin: 05/03/24 17:24 Dose: 15 mg Documented By: PAZ Levothyroxine Sodium (Levothyroxine Sodium 137 Mcg Tablet) 137 mcg PO DAILYBB [facility] Stop: 06/02/24 06:29 Last Admin: 05/04/24 05:39 Dose: 137 mcg Documented By: [id number] Admin: 05/03/24 05:50 Dose: 137 mcg Documented By: [id number] Lisinopril (Lisinopril 40 Mg Tab) 40 mg PO DAILY BRENDA Stop: 06/02/24 08:59 Last Admin: 05/04/24 09:22 Dose: 40 mg Documented By: Admin: 05/03/24 09:54 Dose: 40 mg Documented By: LISAR Nifedipine (Nifedipine Extended Rel 30 Mg Tabcr) 30 mg PO DAILY BRENDA Stop: 06/02/24 08:59 Last Admin: 05/04/24 09:23 Dose: 30 mg Documented By: Admin: 05/03/24 09:55 Dose: 30 mg Documented By: PAZ Pantoprazole Sodium (Pantoprazole 40 Mg Tab) 40 mg PO DAILY BRENDA Stop: 06/02/24 08:59 Last Admin: 05/04/24 09:24 Dose: 40 mg Documented By: Admin: 05/03/24 09:55 Dose: 40 mg Documented By: PAZ Rosuvastatin Calcium (Rosuvastatin Calcium 20 Mg Tab) 20 mg PO DAILY BRENDA Stop: 06/02/24 08:59 Last Admin: 05/04/24 09:24 Dose: 20 mg Documented By: Admin: 05/03/24 09:55 Dose: 20 mg Documented By: PAZ Senna/Docusate Sodium (Docusate Sodium/Senna 50/8.6mg Tab) 1 tab PO DAILY BRENDA Stop: 06/02/24 08:59 Last Admin: 05/04/24 09:20 Dose: 1 tab Documented By: Admin: 05/03/24 09:54 Dose: 1 tab Documented By: PAZ Sertraline HCl (Sertraline Hcl 100 Mg Tablet) 200 mg PO DAILY BRENDA Stop: 06/02/24 08:59 Last Admin: 05/04/24 09:24 Dose: 200 mg Documented By: Admin: 05/03/24 09:55 Dose: 200 mg Documented By: PAZ Spironolactone (Spironolactone 25 Mg Tab) 25 mg PO QAM BRENDA Stop: 06/02/24 15:44 Last Admin: 05/04/24 09:25 Dose: 25 mg Documented By: Admin: 05/03/24 17:25 Dose: 25 mg Documented By: PAZ Discontinued Medications Diphenhydramine HCl (Diphenhydramine Capsule 25 Mg Cap) 25 mg PO NOW ONE Stop: 05/03/24 00:44 Last Admin: 05/03/24 01:28 Dose: 25 mg Documented By: Alonzo Sodium Chloride (Nss) 1,000 mls @ 999 mls/hr IV .Q1H1M ONE Stop: 05/02/24 18:21 Last Infusion: 05/02/24 18:36 Dose: Infused Documented By: Admin: 05/02/24 17:43 Dose: 999 mls/hr Documented By: REGAN Acetaminophen (Ofirmev) 1,000 mg in 100 mls @ 400 mls/hr IV NOW STA Stop: 05/02/24 18:26 Last Infusion: 05/02/24 19:35 Dose: Infused Documented By: Admin: 05/02/24 19:11 Dose: 400 mls/hr Documented By: REGAN Famotidine (Pepcid 20mg Iv Push) 20 mg in 5 mls @ 2.5 mls/min IV NOW STA Stop: 05/02/24 18:13 Last Admin: 05/02/24 19:12 Dose: 2.5 mls/min Documented By: REGAN Sodium Chloride (Nss) 1,000 mls @ 999 mls/hr IV .Q1H1M ONE Stop: 05/02/24 19:14 Last Infusion: 05/02/24 19:38 Dose: Infused Documented By: Admin: 05/02/24 18:35 Dose: 999 mls/hr Documented By: REGAN Sodium Chloride (Nss) 1,000 mls @ 125 mls/hr IV .Q8H BRENDA Stop: 05/03/24 15:35 Last Admin: 05/03/24 09:31 Dose: Not Given Documented By: Infusion: 05/03/24 09:30 Dose: Infused Documented By: Admin: 05/03/24 00:02 Dose: 125 mls/hr Documented By: [id number] Insulin Aspart (Insulin Aspart Per Unit Charge) 0 units SC ONE ONE Stop: 05/03/24 04:01 Last Admin: 05/03/24 03:53 Dose: 2 units Documented By: [id number] Co-signed By: REDD Insulin Glargine (Lantus Per Unit Charge) 20 units SQ BID BRENDA Stop: 06/01/24 23:35 Last Admin: 05/03/24 10:00 Dose: Not Given Documented By: Admin: 05/03/24 00:01 Dose: 20 units Documented By: [id number] Co-signed By: SERGIO Ketorolac Tromethamine (Ketorolac Tromethamine 15 Mg/Ml Vial) 15 mg IV NOW ONE Stop: 05/03/24 00:44 Last Admin: 05/03/24 01:28 Dose: 15 mg Documented By: [id number] Ketorolac Tromethamine (Ketorolac Tromethamine 15 Mg/Ml Vial) 15 mg IV NOW ONE Stop: 05/03/24 11:28 Last Admin: 05/03/24 11:34 Dose: 15 mg Documented By: PAZ Ondansetron HCl (Ondansetron Inj 2 Mg/Ml 2 Ml Vial) 4 mg IV NOW STA Stop: 05/02/24 18:13 Last Admin: 05/02/24 19:15 Dose: 4 mg Documented By: REGAN Sumatriptan Succinate (Sumatriptan Succinate 50 Mg Tab) 50 mg PO ONE ONE Stop: 05/04/24 16:40 Last Admin: 05/04/24 17:41 Dose: 50 mg Documented By: PAZ Imaging Data Radiologist's Impression: Head CT 05/02/24 18:13 Exam(s): CT HEAD Without Contrast EXAM: CT Head Without Intravenous Contrast CLINICAL HISTORY: Reason for exam: headache dizziness. TECHNIQUE: Axial computed tomography images of the head/brain without intravenous contrast. CTDI is 37.12 mGy and DLP is 546.36 mGy-cm. Automated exposure control was utilized for the study. A dose lowering technique was utilized adhering to the principles of ALARA. COMPARISON: Head CT 03/25/2024 FINDINGS: Brain: No hemorrhage, extra-axial fluid collection, mass effect, or edema. Ventricles: Unremarkable. Bones/joints: Unremarkable. No fracture. Soft tissues: Unremarkable. Sinuses: No acute sinusitis. Mastoid air cells: Unremarkable as visualized. IMPRESSION: 1. No acute intracranial abnormality. 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
[2024-05-02 18:05] LABS: Troponin I High Sensitivity 5.8 pg/ml (0-14)
[2024-05-02 19:07] LABS: Prothrombin Time 10.5 Seconds (9.0-12.0)
[2024-05-02] MEDS: ACETAMINOPHEN 1,000 MG/100 ML VIAL IV STA (19:11)
[2024-05-02] MEDS: FAMOTIDINE 20MG IV PUSH 20 MG/5 ML SYR IV STA (19:12)
[2024-05-02] MEDS: ONDANSETRON INJ 2 MG/ML 2 ML VIAL IV STA (19:15)
[2024-05-02 19:44] LABS: Adenovirus PCR Not Detected (NotDetected); Bordetella parapertussis PCR Not Detected (NotDetected); Bordetella pertussis PCR Not Detected (NotDetected); Chlamydia pneumoniae PCR Not Detected (NotDetected); Coronavirus 229E PCR Not Detected (NotDetected); Coronavirus CoV-2 (COVID19)PCR Not Detected (NotDetected); Coronavirus HKU1 PCR Not Detected (NotDetected); Coronavirus NL63 PCR Not Detected (NotDetected); Coronavirus OC43PCR Not Detected (NotDetected); Human Metapneumovirus PCR Not Detected (NotDetected); Influenza A PCR Not Detected (NotDetected); Influenza B PCR Not Detected (NotDetected); Mycoplasma pneumoniae PCR Not Detected (NotDetected); Parainfluenza Virus 1 PCR Not Detected (NotDetected); Parainfluenza Virus 2 PCR Not Detected (NotDetected); Parainfluenza Virus 3 PCR Not Detected (NotDetected); Parainfluenza Virus 4 PCR Not Detected (NotDetected); Respiratory Syncytial VirusPCR Not Detected (NotDetected); Rhinovirus/Enterovirus PCR Not Detected (NotDetected)
--- NOTE | 2024-05-02 20:18 | CT Scan Report ---
Exam(s): CT HEAD Without Contrast EXAM: CT Head Without Intravenous Contrast CLINICAL HISTORY: Reason for exam: headache dizziness. TECHNIQUE: Axial computed tomography images of the head/brain without intravenous contrast. CTDI is 37.12 mGy and DLP is 546.36 mGy-cm. Automated exposure control was utilized for the study. A dose lowering technique was utilized adhering to the principles of ALARA. COMPARISON: Head CT 03/25/2024 FINDINGS: Brain: No hemorrhage, extra-axial fluid collection, mass effect, or edema. Ventricles: Unremarkable. Bones/joints: Unremarkable. No fracture. Soft tissues: Unremarkable. Sinuses: No acute sinusitis. Mastoid air cells: Unremarkable as visualized. IMPRESSION: 1. No acute intracranial abnormality. Electronically signed by: Shlomo Estes MD 05/02/24 20:17 PM
--- NOTE | 2024-05-02 21:31 | History & Physical Report ---
Date of Service May 02, 2024 Assessment & Plan (1) Hyperglycemia: Plan: 69-year-old female with past medical history significant for diabetic gastroparesis, type 2 diabetes, diabetic retinopathy, hyperlipidemia, hypothyroidism, diabetic polyneuropathy, obstructive sleep apnea on CPAP, cirrhosis of liver with ascites, portal hypertension, history of CVA, hypertension, grade 1 diastolic dysfunction, female stress incontinence, generalized osteoarthritis, unspecified dementia, thrombocytopenia, major depression, anxiety, intention tremor, history of pulmonary embolism who lives with her and ambulates with a walker when she is outside of the house comes in because of hyperglycemia. Patient states when she woke up today sugars were running in 300s. She was having severe headaches. Nausea. And the blood pressure was running high. Denies any fevers. Has some dizziness. Vision is okay. No runny nose or sore throat or cough. Appetite is not great. Complains of heaviness in the chest. And dyspnea on exertion. No abdominal pain. Normal bowel and bladder movements. Symptoms ankles swell up.She is having on and off nosebleeds last bleed was few days back. Currently resting comfortably and hemodynamics are okay. Hyperglycemia Poorly controlled diabetes Sugars 572 on presentation With the fluids improved to 266 Will continue home Lantus 15 units twice daily Sliding scale Follow HbA1c levels Glycemic pharmacy consult IV fluids Close monitor Hypertension Elevated Continue home medications nifedipine, Coreg, lisinopril, spironolactone IV labetalol as needed Will monitor Chest tightness Initial EKG and troponin okay We will follow serial enzymes and an echo Will monitor History of CVA On Plavix and statin History of liver cirrhosis Monitor for volume overload Thrombocytopenia Platelets 112 Mostly from cirrhosis We will follow labs Hyponatremia Sodium 129 Mostly pseudohyponatremia We will follow labs Obstructive sleep apnea CPAP nightly and keep on page Hypothyroidism On Synthyroid Hyperlipidemia On statin Depression On bupropion Diabetic polyneuropathy On gabapentin DVT prophylaxis SCDs and heparin subcu Monitor platelets Disposition Med/telemetry Full code History of Present Illness Chief Complaint: Hyperglycemia Primary Care Provider: Adria Hilliard MD 69-year-old female with past medical history significant for diabetic gastroparesis, type 2 diabetes, diabetic retinopathy, hyperlipidemia, hypothyroidism, diabetic polyneuropathy, obstructive sleep apnea on CPAP, cirrhosis of liver with ascites, portal hypertension, history of CVA, hypertension, grade 1 diastolic dysfunction, female stress incontinence, generalized osteoarthritis, unspecified dementia, thrombocytopenia, major depression, anxiety, intention tremor, history of pulmonary embolism who lives with her and ambulates with a walker when she is outside of the house comes in because of hyperglycemia. Patient states when she woke up today sugars were running in 300s. She was having severe headaches. Nausea. And the blood pressure was running high. Denies any fevers. Has some dizziness. Vision is okay. No runny nose or sore throat or cough. Appetite is not great. Complains of heaviness in the chest. And dyspnea on exertion. No abdominal pain. Normal bowel and bladder movements. Symptoms ankles swell up.She is having on and off nosebleeds last bleed was few days back. Currently resting comfortably and hemodynamics are okay. Past medical history. As mentioned above Past surgical history. Small bowel repair. adhesions removed from stomach. Biopsy of the left breast mass benign. Cataract surgery complex. Colonoscopy. Dilatation curettage. Left knee arthroscopy. Ligation of oviducts. Partial hysterectomy. Removal of both ovaries for tumor. Total abdominal hysterectomy with removal of tubes. Social history. . No smoking. Alcohol rarely. No drug use. Family history. Father had lung cancer. Diabetes. Sister had stomach cancer. Aunt had diabetes. Allergies Allergy/AdvReac Type Severity Reaction Status Date / Time adhesive Allergy Intermediate RASH Verified 02/22/24 19:12 Iodinated Contrast Media Allergy Intermediate burning Verified 02/22/24 19:12 and aching in veins latex Allergy Intermediate RASH Verified 02/22/24 19:12 Penicillins Allergy Intermediate n/v, rash Verified 02/22/24 19:12 Anesthetics - Amide Type - AdvReac Intermediate Vomiting Verified 02/22/24 19:12 Select A [Anesthetics - Amide Type] Anesthetics - Juju Type- AdvReac Intermediate Vomiting Verified 02/22/24 19:12 Parabens hepatitis B virus vaccine AdvReac Intermediate CHEST Verified 02/22/24 19:12 TIGHTNESS WITH 2ND DOSE. ketorolac AdvReac Intermediate ITCHING. Verified 02/22/24 19:12 tromethamine AdvReac Intermediate ITCHING. Verified 02/22/24 19:12 aspirin AdvReac Unknown CONTRAINDICATED---currently Verified 02/22/24 19:12 with gastric ulcer, per pt Home Medications Medication Instructions Recorded Confirmed Type bupropion HCl 100 mg tablet 100 mg PO QPM 05/03/24 05/03/24 History bupropion HCl 100 mg tablet 150 mg PO DAILYBB 05/03/24 05/03/24 History carvedilol 3.125 mg tablet 3.125 mg PO BID 05/03/24 05/03/24 History clopidogrel 75 mg tablet 75 mg PO DAILY 05/03/24 05/03/24 History gabapentin 300 mg capsule 300 mg PO TID 05/03/24 05/03/24 History insulin aspart U-100 100 unit/mL 15 unit subcut UD 05/03/24 05/03/24 History (3 mL) subcutaneous pen (Novolog FlexPen U-100 Insulin aspart) insulin glargine 100 unit/mL (3 15 unit subcut BID 05/03/24 05/03/24 History mL) subcutaneous pen (Lantus Solostar U-100 Insulin) levothyroxine 137 mcg tablet 137 mcg PO DAILY 05/03/24 05/03/24 History lisinopril 40 mg tablet 40 mg PO DAILY 05/03/24 05/03/24 History metoclopramide HCl 5 mg tablet 5 mg PO QID PRN Nausea And Vomiting 05/03/24 05/03/24 History nifedipine 30 mg tablet,extended 30 mg PO DAILY 05/03/24 05/03/24 History release omeprazole 20 mg capsule,delayed 20 mg PO DAILY 05/03/24 05/03/24 History release rosuvastatin 20 mg tablet 20 mg PO DAILY 05/03/24 05/03/24 History sennosides 8.6 mg-docusate sodium 1 tab PO DAILY 05/03/24 05/03/24 History 50 mg tablet (Senexon-S) sertraline 100 mg tablet 200 mg PO DAILY 05/03/24 05/03/24 History spironolactone 25 mg tablet 25 mg PO DAILY 05/03/24 05/03/24 History Past Med/Surg History Problem List (Updated 05/03/24 @ 03:07 by Spenser Hoffman MD) Dehydration (Acute) Hyperglycemia due to type 2 diabetes mellitus (Acute) Hyperglycemia Laceration of hand, right (Acute) Low back pain Other cervical disc degeneration, mid-cervical region, unspecified level Neck pain Degenerative arthritis of lumbar spine Irritable bowel syndrome with constipation Diabetic gastroparesis Chronic generalized abdominal pain Suspected UTI Asymptomatic hypertensive urgency Constipation (Acute) Acute UTI (Acute) Nausea & vomiting (Acute) Hernia, umbilical (Acute) Abdominal pain (Acute) Vomiting (Acute) SBO (small bowel obstruction) (Acute) Lumbar radiculopathy Degenerative disc disease, lumbar Chest pain Precordial chest pain (Acute) Ambulatory dysfunction (Acute) Vomiting (Acute) Headache (Acute) Accidental medication overdose (Acute) Hyperglycemia (Acute) Hemarthrosis involving knee joint Contusion of bone Intertrochanteric fracture of left femur Hypothyroidism Closed left humeral fracture (Acute) Acute pain of left hip (Acute) Contusion of rib on left side (Acute) Inability to ambulate due to hip (Acute) Status post fall (Acute) History of CVA (cerebrovascular accident) x2 1990s History of pulmonary embolism Ambulatory dysfunction Fall (Acute) Multiple fractures of ribs of right side (Acute) Fracture of toe of right foot (Acute) Cellulitis of leg, right (Acute) Fibula fracture Distal radius fracture, left Closed fracture of radial styloid (Acute) Neuropathy (Chronic) Osteoporosis (Chronic) 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 (Chronic) Hypothyroidism (Chronic) Anxiety (Chronic) Depression (Chronic) DVT (deep venous thrombosis) (Chronic) Dyslipidemia (Chronic) DM type 2 (diabetes mellitus, type 2) (Chronic) insulin dependent Hypertension (Chronic) Lumbar transverse process fracture (Chronic) Multiple rib fractures (Chronic) Thoracic compression fracture (Chronic) Medical History Cellulitis of great toe of right foot Cellulitis of foot, right Surgical History History of oophorectomy S/P left knee arthroscopy H/O dilation and curettage H/O abdominal surgery small bowel repair lysis of adhesions History of hysterectomy History of cholecystectomy History of tubal ligation Family History Father Lung cancer Diabetes Sister Stomach cancer Social History Smoking Status: Never smoker Tobacco Type: Cigarettes Second Hand Exposure: No; Hx Alcohol Use: No Hx Substance Use: No Preferred Language: Greenlandic Communication Ability: Effective Visual Impairment: No Limitations Hearing Ability: Normal Needle Loom Tender Required: No Beliefs That Will Affect Care: None marital status: Current Living Situation: Spouse Current Living Situation Comment: with How many Children do You have: 0 Other Information That Helps Us Care for You: No Feels Safe at Home: Yes Safety Concerns: Feels Safe At This Time Assistive Devices: Walker Assistive Devices Comment: uses walker as needed at home, walker provided to pt Review of Systems Review of Systems: All systems reviewed & are unremarkable except as noted in HPI & below Physical Exam Physical Exam: General- Not in acute distress Head- atraumatic Eyes- PERRL. ENT- oropharynx clear Neck- supple, no JVD. Lungs- clear to auscultation no wheezing or crackles Heart- regular rate and rhythm; no murmur, no gallop. Abdomen- normal bowel sounds, soft, nontender, no distension. Extremities- trace pretibial edema, no erythema seen. Neuro- alert, oriented PERRL, no facial palsy; no dysarthria; moves extremities Results & Data Results & Data Vital Signs (Past 12 Hours) Vital Signs Temp Pulse Pulse Resp BP BP Pulse Ox 05/02/24 21:00 74 15 160/80 H 95 05/02/24 19:00 69 18 150/82 H 97 05/02/24 18:32 69 15 160/84 H 98 05/02/24 17:46 69 05/02/24 17:44 86 13 160/70 H 99 05/02/24 15:33 36.7 C 85 16 121/69 99 O2 Del Method 05/02/24 21:00 Room Air 05/02/24 19:00 Room Air 05/02/24 18:32 Room Air 05/02/24 17:46 05/02/24 17:44 Room Air 05/02/24 15:33 Room Air Diagnostic Findings Laboratory Results WBC 5.15 K/ul (4.8-10.8) 05/02/24 15:55 RBC 4.07 M/uL (4.20-5.40) L 05/02/24 15:55 Hgb 11.9 g/dl (12.0-16.0) L 05/02/24 15:55 Hct 36.0 % (37.0-47.0) L 05/02/24 15:55 MCV 88.5 fL (80.0-100.0) 05/02/24 15:55 MCH 29.2 pg (25.0-34.0) 05/02/24 15:55 MCHC 33.1 g/dL (32.0-36.0) 05/02/24 15:55 RDW Std Deviation 38.5 fL (36.4-46.3) 05/02/24 15:55 RDW Coeff of Dia 11.9 % (11.5-14.5) 05/02/24 15:55 Plt Count 112 K/uL (130-400) L 05/02/24 15:55 MPV 10.2 fL (9.4-12.4) 05/02/24 15:55 Immature Gran % (Auto) 0.6 % 05/02/24 15:55 Neut % (Auto) 71.4 % 05/02/24 15:55 Lymph % (Auto) 20.4 % 05/02/24 15:55 [place] % (Auto) 5.8 % 05/02/24 15:55 Eos % (Auto) 1.2 % 05/02/24 15:55 Baso % (Auto) 0.6 % 05/02/24 15:55 Neut # (Auto) 3.68 K/uL (1.40-6.50) 05/02/24 15:55 Lymph # (Auto) 1.05 K/uL (1.20-3.40) L 05/02/24 15:55 [place] # (Auto) 0.30 K/uL (0.11-0.59) 05/02/24 15:55 Eos # (Auto) 0.06 K/uL (0.00-0.50) 05/02/24 15:55 Baso # (Auto) 0.03 K/uL (0.00-0.20) 05/02/24 15:55 Immature Gran # (Auto) 0.03 K/uL (0.01-0.20) 05/02/24 15:55 PT 10.5 Seconds (9.0-12.0) 05/02/24 15:55 INR 1.0 (0.9-1.1) 05/02/24 15:55 Sodium 129 mmol/L (136-145) L 05/02/24 15:55 Potassium 4.6 mmol/L (3.5-5.1) 05/02/24 15:55 Chloride 97 mmol/L (98-107) L 05/02/24 15:55 Carbon Dioxide 25 mmol/L (21-32) 05/02/24 15:55 Anion Gap 7 (3-11) 05/02/24 15:55 BUN 28 mg/dl (6-23) H 05/02/24 15:55 Creatinine 0.92 mg/dl (0.6-1.2) 05/02/24 15:55 Est Cr Clr Drug Dosing 56.0 ml/min 05/02/24 15:55 Est GFR ( Amer) 74.2 ml/min 05/02/24 15:55 Est GFR (Non-Af Amer) 64.0 ml/min 05/02/24 15:55 BUN/Creatinine Ratio 30.4 (10-20) H 05/02/24 15:55 Glucose 572 mg/dl (70-99(Fasting)) H* 05/02/24 15:55 POC Glucose 266 mg/dl (70-99) H 05/02/24 19:58 Osmolality 314 mOsm/kg (280-300) H 05/02/24 15:55 Calcium 9.4 mg/dl (8.6-10.3) 05/02/24 15:55 Phosphorus 4.3 mg/dl (2.5-4.9) 05/02/24 15:55 Magnesium 1.9 mg/dl (1.7-2.4) 05/02/24 15:55 Total Bilirubin 0.6 mg/dl (0.2-1.0) 05/02/24 15:55 AST 23 U/L (13-39) 05/02/24 15:55 ALT 16 U/L (7-52) 05/02/24 15:55 Alkaline Phosphatase 108 U/L (34-104) H 05/02/24 15:55 Troponin I High Sens 5.8 pg/ml (0-14) 05/02/24 15:55 Total Protein 7.7 gm/dl (6.0-8.3) 05/02/24 15:55 Albumin 4.6 gm/dl (3.4-5.0) 05/02/24 15:55 Globulin 3.1 gm/dl (2.5-4.0) 05/02/24 15:55 Albumin/Globulin Ratio 1.5 (0.9-2) 05/02/24 15:55 Urine Color Yellow 05/02/24 16:01 Urine Appearance Clear (Clear) 05/02/24 16:01 Urine pH 5.5 (4.5-7.5) 05/02/24 16:01 Ur Specific [place] 1.025 (1.000-1.030) 05/02/24 16:01 Urine Protein Negative (Negative) 05/02/24 16:01 Urine Glucose (UA) 3+ (Negative) H 05/02/24 16:01 Urine Ketones Negative (Negative) 05/02/24 16:01 Urine Blood Trace (Negative) H 05/02/24 16:01 Urine Nitrite Negative (Negative) 05/02/24 16:01 Urine Bilirubin Negative (Negative) 05/02/24 16:01 Urine Urobilinogen Negative (Negative) 05/02/24 16:01 Ur Leukocyte Esterase Negative (Negative) 05/02/24 16:01 Urine WBC (Auto) 0-5 /hpf (0-5) 05/02/24 16:01 Urine RBC (Auto) 0-2 /hpf (0-2) 05/02/24 16:01 U Hyaline Cast (Auto) 0-2 /lpf (0-2) 05/02/24 16:01 U Epithel Cells (Auto) 0-2 /hpf (0-2) 05/02/24 16:01 Urine Bacteria (Auto) None Seen (None Seen) 05/02/24 16:01 Adenovirus (PCR) Not Detected (NotDetected) 05/02/24 18:37 B. pertussis DNA (PCR) Not Detected (NotDetected) 05/02/24 18:37 B.parapertussis DNA PCR Not Detected (NotDetected) 05/02/24 18:37 C. pneumoniae DNA (PCR) Not Detected (NotDetected) 05/02/24 18:37 Coronavirus OC43 (PCR) Not Detected (NotDetected) 05/02/24 18:37 Coronavirus HKU1 (PCR) Not Detected (NotDetected) 05/02/24 18:37 Coronavirus 229E (PCR) Not Detected (NotDetected) 05/02/24 18:37 SARS-CoV-2 (PCR) Not Detected (NotDetected) 05/02/24 18:37 Coronavirus NL63 (PCR) Not Detected (NotDetected) 05/02/24 18:37 Human Metapneumovir PCR Not Detected (NotDetected) 05/02/24 18:37 Influenza Type A (PCR) Not Detected (NotDetected) 05/02/24 18:37 Influenza Type B (PCR) Not Detected (NotDetected) 05/02/24 18:37 M. pneumoniae (PCR) Not Detected (NotDetected) 05/02/24 18:37 Parainfluenza 1 (PCR) Not Detected (NotDetected) 05/02/24 18:37 Parainfluenza 2 (PCR) Not Detected (NotDetected) 05/02/24 18:37 Parainfluenza 3 (PCR) Not Detected (NotDetected) 05/02/24 18:37 Parainfluenza 4 (PCR) Not Detected (NotDetected) 05/02/24 18:37 RSV (PCR) Not Detected (NotDetected) 05/02/24 18:37 Entero/Rhino (PCR) Not Detected (NotDetected) 05/02/24 18:[address] 05/02/24 18:13 Exam(s): CT HEAD Without Contrast EXAM: CT Head Without Intravenous Contrast CLINICAL HISTORY: Reason for exam: headache dizziness. TECHNIQUE: Axial computed tomography images of the head/brain without intravenous contrast. CTDI is 37.12 mGy and DLP is 546.36 mGy-cm. Automated exposure control was utilized for the study. A dose lowering technique was utilized adhering to the principles of ALARA. COMPARISON: Head CT 03/25/2024 FINDINGS: Brain: No hemorrhage, extra-axial fluid collection, mass effect, or edema. Ventricles: Unremarkable. Bones/joints: Unremarkable. No fracture. Soft tissues: Unremarkable. Sinuses: No acute sinusitis. Mastoid air cells: Unremarkable as visualized. IMPRESSION: 1. No acute intracranial abnormality. Electronically signed by: Shlomo Estes MD 05/02/24 20:17 PM ECG Additional Comments: ECG. Normal sinus rhythm rate of 80. Nonspecific intraventricular conduction block. QTc 484. No significant change was found. Code Status & VTE Plan VTE Prophylaxis Plan VTE Prophylaxis will be ordered: Yes
--- OUTSIDE RECORDS SUMMARY | 2024-05-02 23:28 | External Medical Summary | Summary of Care ---
Author Name Unknown Organization [facility] Address [address] [place] [address] Phone [phone] Care Team Providers Care Book Publisher Name Role Phone Kelly Hilliard MD Primary Care Provider [phone] Reason for Visit * Reason Comments Adult Annual Wellness Visit, Initial Vis it Encounter Details Date Type Department Care Team (Latest Contact Info) Description 04/22/2024 2:00 PM EDT Home Visit Care at Home [address], [place] [id number] Flores Lee PA-C [address] [place] [address] Anxiety state*; Type 2 diabetes mellitus with both eyes affected by moderate nonproliferative retinopathy and macular edema, with long-term current use of insulin (HCC); Type 2 diabetes mellitus with diabetic nephropathy, with long-term current use of insulin (HCC); Major depressive disorder, recurrent severe without psychotic features (HCC); Type 2 diabetes mellitus with diabetic polyneuropathy, with long-term current use of insulin (HCC); Type 2 diabetes mellitus with diabetic nephropathy, without long-term current use of insulin (HCC); Cirrhosis of liver with ascites, unspecified hepatic cirrhosis type (HCC); Type 2 diabetes mellitus with hemoglobin A1c goal of less than 8.0% (HCC); Portal hypertension (HCC); CEREBROVASCULAR DZ, POST-STROKE; Diabetic gastroparesis (HCC); DYSLIPIDEMIA, GOAL LDL BELOW 100; Female stress incontinence; Generalized osteoarthritis; H/O: hysterectomy; History of pulmonary embolism; History of traumatic fracture; HTN, goal below 140/90; Hypothyroidism due to medication; Intention tremor; 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; Mild dementia without behavioral disturbance, psychotic disturbance, mood disturbance, or anxiety, unspecified dementia type ([facility]); Vitamin D deficiency; Grade I diastolic dysfunction; Age-related osteoporosis without current pathological fracture Allergies Active Allergy Reactions Criticality Noted Date [...] as of this encounter (statuses as of 04/25/2024) Medications Medication Sig Dispensed Refills Start Date End Date Status Cholecalciferol (VITAMIN D) 1000 units Tablet daily 30 Tab 5 06/04/2018 Active LifeNexus Flex System w/Device Kit Use to test blood sugars 4 times a day. 1 Kit 07/07/2020 Active CPAP every night at bedtime. Active LifeNexus In Vitro Strip (Glucose Blood)Indications:Ty pe 2 diabetes mellitus with hemoglobin A1c goal of less than 8.0% ([facility]),Type 2 diabetes mellitus with diabetic nephropathy, without long-term current use of insulin ([facility]),Type 2 diabetes mellitus with diabetic nephropathy, with long-term current use of insulin ([facility]),Type 2 diabetes mellitus with diabetic polyneuropathy, with long-term current use of insulin ([facility]) Use to check sugars once daily E 11.9 100 Strip 3 06/11/2023 Active Websupport DelHealthSynch Lancets 33GIndications:Type 2 diabetes mellitus with hemoglobin A1c goal of less than 8.0% ([facility]),Type 2 diabetes mellitus with diabetic nephropathy, without long-term current use of insulin ([facility]),Type 2 diabetes mellitus with diabetic nephropathy, with long-term current use of insulin ([facility]),Type 2 diabetes mellitus with diabetic polyneuropathy, with long-term current use of insulin ([facility]) Use to check sugars daily E 11.9 100 Each 1 06/11/2023 Active Dexcom G7 Sensor Use as directed. Change every 10 days. Supplied by [facility] Active Lisinopril 40 MG Oral TabletIndications:Ty pe 2 diabetes mellitus with hemoglobin A1c goal of less than 8.0% (HCC),HTN, goal below 140/90 Take 1 Tablet by mouth in the morning. 100 Tablet 1 10/18/2023 Active Rosuvastatin Calcium 20 MG Oral Tablet (Crestor)Indications :Type 2 diabetes mellitus with hemoglobin A1c goal of less than 8.0% (HCC),Dyslipidemia, goal to be determined TAKE 1 TABLET BY MOUTH EVERY DAY IN THE MORNING 100 Tablet 10/18/2023 Active buPROPion HCl 100 MG Oral Tablet (Wellbutrin)Indicati ons:Major depressive disorder, recurrent severe without psychotic features (HCC) Take one and one-half tablets (150mg) by mouth in the morning, and one tablet (100mg) at noon. 250 Tablet 10/18/2023 Active Clopidogrel Bisulfate 75 MG Oral Tablet (pLAVix)Indications: Cerebrovascular disease, arteriosclerotic, post-stroke TAKE 1 TABLET BY MOUTH EVERY DAY IN THE MORNING 100 Tablet 10/18/2023 Active Levothyroxine Sodium 137 MCG Oral TabletIndications:Hy pothyroidism, unspecified type Take 1 Tablet by mouth in the morning. (at least 30 min prior to breakfast or other meds). 100 Tablet 10/18/2023 Active Sertraline HCl 100 MG Oral Tablet (Zoloft)Indications: Major depressive disorder, recurrent severe without psychotic features (HCC) Take 2 Tablets by mouth in the morning. 200 Tablet 10/18/2023 Active Spironolactone 25 MG Oral Tablet (Aldactone)Indicatio ns:HTN, goal below 140/90 Take 1 Tablet by mouth in the morning. 100 Tablet 10/18/2023 Active Carvedilol 3.125 MG Oral Tablet (Coreg) 1 tablet in the am for one week, if tolerating then increase to 2 tabs in the am for one week 30 Tablet 01/15/2024 Active Omeprazole 20 MG Oral Tablet Delayed Release Disintegrating Take by mouth. Active BD Pen Needle Micro U/F 32G X 6 MM (NOVOFINE 32G PEN NEEDLE)Indications:T ype 2 diabetes mellitus with hemoglobin A1c goal of less than 8.0% (HCC) Use daily with lantus and novolog injections 4 times daily 400 Each 02/22/2024 Active Ondansetron HCl 4 MG Oral Tablet (Zofran) Take 1 Tablet by mouth every 8 hours as needed for Nausea. Active Sennosides-Docusate Sodium 8.6-50 MG Oral Tablet (Senokot S) Take 1 Tablet by mouth in the morning. Active Polyethylene Glycol 3350 17 GM Oral Packet (Miralax) Take 1 Packet by mouth in the morning. Active Acetaminophen 325 MG Oral Tablet (Tylenol) TAKE 2 TABLETS ORALLY FOUR TIMES DAILY FOR 30 DAYS 02/25/2024 Active Metoclopramide HCl 5 MG Oral Tablet (Reglan)Indications: Gastroparesis take 1 tablet by mouth up to 4 times a day before meals or snack 240 Tablet 3 02/28/2024 Active Gabapentin 100 MG Oral Capsule (Neurontin)Indicatio ns:Chronic bilateral low back pain with left-sided sciatica Take 1 Capsule by mouth in the morning and 1 Capsule at noon and 1 Capsule before bedtime. 270 Capsule 3 02/28/2024 Active Rosuvastatin Calcium 20 MG Oral Tablet (Crestor)Indications :Type 2 diabetes mellitus with hemoglobin A1c goal of less than 8.0% ([facility]),Dyslipidemia, goal to be determined TAKE 1 TABLET BY MOUTH EVERY DAY IN THE MORNING 100 Tablet 1 03/31/2024 Active NIFEdipine ER 30 MG Oral Tablet Extended Release 24 Hour (Adalat CC)Indications:HTN, goal below 140/90 TAKE 1 TABLET BY MOUTH EVERY DAY IN THE MORNING 100 Tablet 1 03/31/2024 Active NovoLOG FlexPen 100 UNIT/ML Subcutaneous Solution Pen-injector (insulin aspart)Indications:T ype 2 diabetes mellitus with hemoglobin A1c goal of less than 8.0% ([facility]),Type 2 diabetes mellitus with diabetic nephropathy, without long-term current use of insulin ([facility]),Type 2 diabetes mellitus with diabetic nephropathy, with long-term current use of insulin ([facility]),Type 2 diabetes mellitus with diabetic polyneuropathy, with long-term current use of insulin ([facility]) Inject 15 units with breakfast, 10 units with lunch, and 15 units with supper 45 mL 3 04/03/2024 Active Insulin Glargine Solostar 100 UNIT/ML Subcutaneous Solution Pen-injector (Lantus SoloStar)Indications :Type 2 diabetes mellitus with hemoglobin A1c goal of less than 8.0% ([facility]),Type 2 diabetes mellitus with diabetic nephropathy, without long-term current use of insulin (HCC),Type 2 diabetes mellitus with diabetic nephropathy, with long-term current use of insulin (HCC),Type 2 diabetes mellitus with diabetic polyneuropathy, with long-term current use of insulin (HCC) Inject 15 Units under the skin in the morning and 15 Units before bedtime. 30 mL 4 04/03/2024 Active Gabapentin 300 MG Oral Capsule (Neurontin)Indicatio ns:Chronic nonintractable headache, unspecified headache type Take 1 Capsule by mouth in the morning and 1 Capsule at noon and 1 Capsule before bedtime. 270 Capsule 3 04/03/2024 Active documented as of this encounter (statuses as of 04/25/2024) Active Problems Problem Noted Date Diagnosed Date Type 2 diabetes mellitus wit h both eyes affected by moderate nonproliferative retinopathy and macular edema, with long-term current use of insulin 04/25/2024 Unspecified dementia, unspec ified severity, without behavioral disturbance, psychotic disturbance, mood disturbance, and anxiety 04/25/2024 Grade I diastolic dysfunction 04/25/2024 Age-related osteoporosis wit hout current pathological fracture 04/25/2024 Thrombocytopenia 08/16/2023 Portal hypertension 04/05/2023 Cirrhosis of [...] Lumbar vertebra History of pulmonary embolism 05/25/2017 Female stress incontinence 02/21/2017 Intention tremor 02/21/2017 [...] 11/24/2008 Overview: Modified per CVA protocol #8 Diabetic gastroparesis 02/19/2008 Major depressive disorder, r ecurrent severe without psychotic features 10/23/2001 Anxiety state 12/30/1999 documented as of this encounter (statuses as of 04/25/2024) Resolved Problems Problem Noted Date Diagnosed Date Resolved Date Unspecified dementia, unspec ified severity, without behavioral disturbance, psychotic disturbance, mood disturbance, and anxiety 04/25/2024 04/25/2024 Moderate episode of recurren t major depressive disorder 04/25/2024 04/25/2024 Type 2 diabetes mellitus with hyperglycemia 08/16/2023 02/19/2024 Depression, unspecified 08/16/202304/13 Alzheimer's dementia without behavioral disturbance 08/26/2021 03/03/2022 [...] E11.42 Falls frequently 05/08/2017 05/29/2022 Overview: Duplicate Controlled substance agreement signed 03/16/2017 04/25/2024 MEDICATION USE AGREEMENT 03/16/2017 Premature menopause 02/21/2017 04/25/20 24 Type 2 diabetes mellitus wit h diabetic [...] fall at home 05/2008 Vertigo 03/25/2008 01/19/2017 Nausea with vomiting 02/18/2008 017 Abdominal pain, left lower quadrant 02/17/2008 01/19/2017 Diverticulosis of colon 02/06/2008 06/04/2017 Bladder disorder 01/13/2008 01/19/2017 DM type 2, not at goal 09/26/200709/21 UPPER EXTREMETY VENOUS THROMBOSIS NOS 03/30/2006 04/09/2024 director long term care current use of ant icoagulant therapy 03/30/2006 11/14/2017 Overview: ICD-10 update of inactive term Anticoagulation management encounter 03/30/2006 04/25/2024 LATERAL EPICONDYLITIS, LEFT 10/26/2005 06/26/2007 SCIATICA, LEFT [...] 11/26/2008 Overview: Modified per CVA protocol #8 Menopause 10/02/2000 04/25/2024 HTN, goal below 140/90 04/27/200009/09 Overview: Per HTN Taxonomy. NEUROPATHY IN OTHER DIS 12/30/199909/14 HYPERLIPIDEMIA NEC-NOS 07/29 Overview: Per Lipid Taxonomy. documented as of this encounter (statuses as of 04/25/2024) Immunizations Name Administration Dates Next Due COVID-19 mRNA, LNP-s, No Pre serve, 2-Dose Series (Kustom Codes) 08/10/2021 COVID-19, MRNA-LNP, 23-24, P F, 50 MCG/0.5 mL, 12 YRS AND ABOVE, IM (MODERNA-Spikevax) 06/20/2023 H1N1 2009 Influenza, IM 10/27/2009 Hepatitis B, 20+ yrs 02/04/2014,12/30/2013 Pneumococcal Conjugate Vacci ne, 20-valent ([id number]) 04/05/2023 Pneumococcal Polysaccharide PPV23 (Pneumovax) 08/26/2021,05/13/2010,12/14/2005 Seasonal Influenza Virus Vac cine, Unspecified Formulation 06/01/2022,06/10/2021,06/06/2019,04/26,06/12/2017,05/02/2016,05/11/2015 ,08/13/2014,05/29/2014,05/21/2013,04/14,05/26/2011,09/27/2010, 0,05/25/2008,05/26/2007,05/22/2006, Seasonal Influenza, PF, 6 M & above, IM , (FluLaval or Fluzone) 06/06/2019,04/26/2018,06/12/2017 Seasonal Influenza, Quadriva lent Hd (Fluzone Hd) 06/01/2022,06/10/2021 Seasonal Influenza, Quadriva lent, No Preserve, IM 05/22/2020,05/02/2016,05/11/2015 Seasonal Influenza, Trivalen t, (IIV3), with Preserv, (Fluzone) 08/13/2014,05/29/2014,05/21/2013,05/06,05/26/2011,09/27/2010,09/29/2009 ,05/25/2008,05/26/2007,05/22/2006 TDAP (age 10 and older)(Boostrix) 12/30/2015 TDAP, Age 7 and older, IM (Adacel) 06/19/2006 documented as of this encounter Social History Tobacco Use Types Packs/Day Years Used Date Smoking Tobacco: Never Smokeless Tobacco: Never Alcohol Use Standard Drinks/Week Comments Not Currently 0 (1 standard drink = 0.6 oz pur e alcohol) rare PHQ-2 Answer Date Recorded PHQ Adult Total Score 0 02/28/2024 Hunger Vital Sign Answer Date Recorded Within [...] y our heating, water, or electric bill? (Adult - for ages 18 years and over) Not on file 03/29/2024 Is your family able to pay t he heat, water, or electric bill? (Household - for ages 0-17 years) Not on file 03/29/2024 Does your family have access to good internet? (Household - for ages 0-17 years) Not on file 03/29/2024 Employment Status Answer Date Recorded Are you unemployed or without regular income? No 03/28/2023 Does the household have a re gular source of income? (Household - for ages 0-17 years) Not on file 03/28/2023 Social Connections Answer Date Recorded How often do you feel lonely or isolated from those around you? (Adult - for ages 18 years and over) Not on file 03/29/2024 Financial Resource Strain Answer Date R ecorded [...] on file documented as of this encounter Last Filed Vital Signs Vital Sign Reading Time Taken Comments Blood Pressure 122/60 04/25/2024 3:29 PM EDT Pulse 79 04/25/2024 3:29 PM EDT Temperature - - Respiratory Rate 18 04/25/2024 3:29 PM EDT Oxygen Saturation 97% 04/25/2024 3:29 PM EDT Inhaled Oxygen Concentration - - Weight - - Height - - Body Mass Index - - documented in this encounter Progress Notes * Flores Lee PA-C - 04/22/2024 1:48 PM EDT Images from the original note were not included. ANNUAL HEALTH RISK ASSESSMENT Care at Home [address] [facility] [address] Patient Name: Viky Villagran : 1955 Date of Assessment: 04/22/2024 Gender: Female PCP: KELLY HILLIARD [facility] [address] [place], [place] [id number] Extended Emergency Contact Information Primary Emergency Contact: CRISPIN VILLAGRAN Relation: Spouse Secondary Emergency Contact: Ileana Ferrer [email or web address] Relation: Other - (no specific identity) HRA Intake Documentation: Advance Care Planning: Advance Directive Type: None and Organ Donor Advance Directive Date: na Medical Adherence: Patient is able to obtain all medications? Yes Patient takes medications as prescribed? Yes Patient uses a pill box? Yes, refill(s) completed by self Medication Reconciliation Medications Medication reconciliation/review completed:: Yes (04/25/241535) Medication adherence problem:: No (04/25/241535) Experiencing side effects from current medications:: No (04/25/241535) Admissions (within the last year): last month [facility] ER within 30 days: last admission Health Maintenance Last physical exam: 04/03/24 Does patient see provider regularly? 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 Palpitations Interpretation Summary The examination is adequate to evaluate the referral indication. The leftventricular cavity size is normal. The LV wall thickness is moderately increased (concentric). The left ventricular wall motion is normal. The qualitative LV ejection fraction is 6569% (normal). The left ventricular diastolic function is mildly abnormal (grade I). Mild aortic valve sclerosis is present. Aortic stenosis is absent. Left Ventricle The qualitative LV ejection fraction is 6569% (normal). The left ventricular cavity size is normal. The LV wall thickness is moderately increased (concentric). There is no left ventricular mural thrombus. Left Ventricular Wall Motion The left ventricular wall motion is normal. Right Ventricle The right ventricular cavity size is normal (basal dimension < 4.2 cm RV apical 4 chamber view). The right ventricular systolic function is normal as assessed by tricuspid annular plane systolic excursion (TAPSE) (normal >1.7 cm). Atria The left atriumis normal sized. The right atrial size is normal. Diastolic Function The left ventricular diastolicfunction is mildly abnormal (grade I). Aortic Valve Page 1 of 3 07/06/2017 The aortic valve has three leaflets. The aortic valve leaflets open normally. Mild aortic valve sclerosis is present. Aorticstenosis is absent. There is no significant aortic regurgitation. Mitral Valve The mitral valve perry oscar is normal. Mitral stenosis is absent. Significant mitral regurgitation is absent. Tricuspid Valve The tricuspid valve anatomy is normal. Tricuspid stenosis is absent. Significant tricuspid regurgitation is absent. Pulmonary Valve The pulmonary valve is inadequately visualized but the Doppler data is adequate for interpretation.. Pulmonic stenosis is absent. There is no significant pulmonary regurgitation. Pericardium No pericardial effusion is noted. Vessels No Doppler findings of significant proximal descending aorta coarctation on limited screening images. The aortic root and proximal ascending aorta are normal sized. The inferior vena cava is normal sized. Septae There is no evidenceof an atrial septal defect but resolution does not allow assessment for a patent foramen ovale. There is no ventricular septal defect. Referral Diagnosis Syncope, unspecified syncope type [R55] Palpitations [R00.2] Procedure Details 52611: Complete /2D MMode adult echocardiogram, Complete doppler in terrogation, and Colorflow Doppler performed. Echocardiography location and measurement technician: Nelson Bhat RN The patient identification was verified prior to procedure by date of and stated name. The patient was informed of the procedure and had opportunity to ask questions and was willing to proceed with test. The primary indication after review was deemed appropriate and the examination was performed. US-RENAL Order: [id number] Status: Final result Visible to patient: Yes (not seen) Next appt: 05/08/2024 at 11:10 AM in Pharmacy ([facility]) Dx: Nephrolithiasis 0 Result Notes 1 Follow-up Encounter Details Reading Physician Reading Date Result Priority Diogo Gao MD [phone] 05/17/2016 Narrative & Impression EXAM 05/17/2016 12:00 PMUS RENAL/AORTA COMPLETE HISTORY right flank pain, evaluate for nephrolithiasis or pyelonephritis TECHNIQUE Real-time static sonographic images were obtained. COMPARISON None FINDINGS Right Kidney: Normal size and echotexture. No significant collecting system dilatation or stones evident. The right kidney measures 11.1 x 4.5 x 4.8 cm. Left Kidney: Normal size and echotexture. No significant collecting system dilatation or stones evident. The left kidney measures 12.2 x 3.9 x 5.3 cm. Bladder: Normal for degree of distension. Aorta: Visualized portions are normal in caliber. IMPRESSION Normal sonographic appearance of bilateral kidneys. Authenticated By Authenticating Date Authenticating Time Reading Providers(s) DIOGO GAO MD 05-17-2016 17:14 DIOGO GAO MD Specimen Collected: 05/17/16 12:00 Last Resulted: 05/17/16 17:14 MRI BRAIN WITHOUT CONTRAST [MRBR] (Spec. #[id number]) (Order [id number]) Exam End Date Exam End Time 08/03/2021 2:26 PM MRI BRAIN WITHOUT CONTRAST Order: [id number] Status: Final result Visible to patient: Yes (not seen) Next appt: 05/08/2024 at 11:10 AM in Pharmacy ([facility]) Dx: Memory loss; Ambulatory dysfunction 1 Result Note Details Reading Physician Reading Date Result Priority Glenroy Mabry MD [phone] 08/08/2021 Narrative & Impression EXAM MRI BRAIN WITHOUT CONTRAST-08/03/2021 2:26 pm HISTORY recurrent falls. Memory disorder TECHNIQUE Axial,FLAIR T2 DWI ADC GRE T1, sagittal T1 and coronal T2 weighted images are obtained COMPARISON Two thousand seventeen FINDINGS No restricted diffusion. No hemorrhage. No mass mass effect or midline shift. Onfv-pe-cpufplgz chronic microvascular changes. Arterial flow voids are normal. Calvarium is normal. Orbits and paranasalsinuses are normal. Each TMJ is normal. Midline structures are normal. Parotid glands are normal. IMPRESSION IMPRESSION 1.No acute intracranial abnormality. DEXA SCAN/BONE MINERAL AXIAL [DEXA] (Spec. #[id number]) (Order [id number]) Exam End Date Exam End Time 11/21/2021 10:17 AM DEXA SCAN/BONE MINERAL AXIAL Order: [id number] Status: Final result Visible to patient: Yes (not seen) Next appt: 05/08/2024 at 11:10 AM in Pharmacy ([facility]) Dx: Osteoporosis 1 Result Note 2 Follow-up Encounters 1 Topic Findings Acuity Significant Abnormal Details Reading Physician Reading Date Result Priority Bonnie Gan MD [phone] 11/21/2021 Routine Narrative & Impression Radiology, [facility] DXA Performed: 11/21/21 DXA Resulted: 11/21/2021 Viky Villagran Reason for testing: Osteoporosis Osteoporosis treatment (per questionnaire): A. Previous treatment: NONE B. Current treatment: Vitamin-D Major risk factors: personal history of fracture after age 50 Using a [employer] [facility] images of the lumbar spine, left hip were obtained using DXA.. The bone mineral density and T scores [standard, young, normal, female population] are as follows: RESULTS: Lumbar spine: 0.847 gms/cm2 T-score: -1.8 Left femoral neck: 0.514 gms/cm2 T-score: -3.0 Z-score: -1.5 FRAX not indicated. VFA not indicated. IMPRESSIONS: Fracture risk is based on current National Osteoporosis Foundation (www.nof.org) Clinicians Guide and [place] Association of Clinical Endocrinology (AACE) Guidelines (www.aace.com) and the application of current WHO FRAX tool (https://www.gonzalez.ac.uk/FRAX/) as well as the 2017 [place] [employer]umat[employer] Glucocorticoid Induced Osteoporosis (GIOP) Guidelines (rheumatology.org/Practice-Carl lity/Clinical-Support/Pmqrtgbz-Juhcskyp-Eyfiwgasdf) using bone mineral density derived T-scores andclinical risk factors obtained from the patient questionnaire. 1. The fracture risk is HIGH (based on T-score at or below -2.5) 2. The quality of the examination is GOOD. 3. Compared to the study done on October 07, 2007, the following measurements, % change, and significance are: Lumbar spine: significant decrease of 15.7 % Left total hip}: significant decrease of 23.0 % The low Z-score reflects a low bone mineral density compared to age, and gender- matched controls. Exam End Date Exam End Time 01/20/2022 10:47 AM MRI C SPINE WO CONTRAST Order: [id number] Status: Final result Visible to patient: Yes (not seen) Next appt: 05/08/2024 at 11:10 AM in Pharmacy ([facility]) Dx: Cervical disc disorder with myelopathy 0 Result Notes Details Reading Physician Reading Date Result Priority Asuncion Kimble MD [phone] 01/20/2022 Narrative & Impression EXAM MRI C SPINE WO CONTRAST01/20/2022 10:47 am HISTORY Worsening balance with frequent falls and concern for cervical spinal stenosis with myelopathy. COMPARISON Comparison is made with the prior CT dated 07/20/2021. TECHNIQUE Routine cervical protocol MRI was performed without the administration of IV gadolinium. FINDINGS There is reversal of the normal cervical lordosis. There is minimal anterolisthesis of C3 on C4. There are degenerative changes of C1-C2. There is multilevel facet hypertrophy of the cervical spine. The vertebral body heights are maintained. The prevertebral soft tissues are within normal limits. There is multilevel disc desiccation of the cervical spine. There is endplate osteophyte formation, intervertebral disc space narrowing, and endplate degenerative changes at C5-6 and C6-7. There is a hemangioma within the C5 vertebral body. The inferior cerebellum is unremarkable. No definitive spinal cord lesion is identified. There is a mucous retention cyst within the inferior left maxillary sinus. At the level of C2-C3, there is no significant spinal canal or neural foraminal stenosis. At the level of C3-C4, there is facet hypertrophy causing moderate right neural foraminal stenosis without significant spinal canal stenosis. At the level of C4-C5, there is a mild disc bulge with facet hypertrophy causing mild ventral effacement of the CSF space and mild left neural foraminal stenosis. At the level of C5-C6, there is an asymmetric posterior disc osteophyte complex with uncovertebral spurring and facet hypertrophy causing mild to moderate spinal canal stenosis, ventral indentation of the spinal cord, moderate right neural foraminal stenosis and moderate to severe left neural foraminal stenosis. At the level of C6-C7, there is a posterior disc osteophyte complex with superimposed central disc herniation, uncovertebral spurring, and facet hypertrophy causing mild to moderate spinal canal stenosis, ventral indentation of the spinal cord, mild to moderate right neural foraminal stenosis, and m oderate left neural foraminal stenosis. At the level of C7-T1, there is a central disc herniation with facet hypertrophy causing mild ventral effacement of the CSF space and mild left neural foraminal stenosis. At the level of T1-T2, there is mild ventral effacement of the CSF space without significant neuralforaminal stenosis. IMPRESSION IMPRESSION 1. Multilevel, multifactorial degenerative changes of the cervical spine with varying degrees of spinal canal and neural foraminal stenosis as described, most prominent at C5-6 and C6-7. 2. Additional findings as described above. Exam Ended: 01/20/22 10:47 Last Resulted: 01/20/22 14:43 Exam End Date Exam End Time 01/17/2024 10:43 AM US ABDOMEN LIMITED Order: [id number] Status: Final result Visible to patient: Yes (not seen) Next appt: 05/08/2024 at 11:10 AM in Pharmacy ([facility]) Dx: Other cirrhosis of liver (HCC) 0 Result Notes 1 Follow-up Encounter Details Reading Physician Reading Date Result Priority Jeremy Rader MD [phone] 01/20/2024 Narrative & Impression EXAM US ABDOMEN LIMITED-01/17/2024 10:43 am HISTORY evaluate for cirrhosis/hcc TECHNIQUE Sonogram of the right upper quadrant. COMPARISON 04/13/2023 FINDINGS LIVER: Cirrhosis. No focal lesion. BILE DUCTS: No intrahepatic or extrahepatic duct dilatation. The common bile duct measures 7 mm. GALLBLADDER: Absent. PANCREAS: Limited visualization. RIGHT KIDNEY: 10.8 cm in length. 1.1 cm hypoechoic lesion in the right kidney (previously 1.1 cm). OTHER: No ascites. IMPRESSION IMPRESSION Hepatic cirrhosis. No discrete hepatic lesion. Exam Ended: 01/17/24 10:43 Last Resulted: 01/20/24 15:54 UPPER GI ENDOSCOPY [[id number] (CPT)] (Spec. #[id number]) (Order [id number]) View Images Result Information Status: Final result (Resulted: 09/27/2014 15:34) Commercial Construction Project Manager [facility] Patient Name: Viky Villagran Procedure Date: 09/27/2014 3:32 PM Date of : 1955 Admit Type:Outpatient Note Status:Finalized Date of : 1955 Admit Type: Outpatient Age: 59 Room: Inpatient at [facility] Gender: Female Note Status: Finalized Procedure: Upper GI endoscopy Indications: Hematemesis Providers: Lavern Walker MD Referring MD: Corin Harris MD (Referring MD) Medicines: Midazolam 2 mg IV, Fentanyl 50 micrograms IV Complications: No immediate complications. Procedure: Pre-Anesthesia Assessment: - ASA Grade Assessment: III - A patient with severe systemic disease. - Prior to the procedure, a History and Physical was performed, and patient medication allergies have been reviewed. The patient's tolerance of previous anesthesia has been reviewed. - Respiratory Examination: clear to auscultation. - CV Examination: normal. - The risks and benefits of the procedure and the sedation options and risks were discussed with the patient. All questions were answered and informed consent was obtained. - Patient identification and proposed procedure were verified prior to the procedure by the physician and the nurse. The procedure was verified in the procedure room. After obtaining informed consent, the endoscope was passed under direct vision. Throughout the procedure, the patient's blood pressure, pulse, and oxygen saturations were monitored continuously. The GIF-160 Endoscope was introduced through the mouth, and advanced to the second part of duodenum. The upper GI endoscopy was accomplished without difficulty. The patient tolerated the procedure well. Findings: The examined esophagus was normal. The stomach was normal. The examined duodenum was normal. Impression: - Normal esophagus. - Normal stomach. - Normal examined duodenum. Recommendation: Discharge pt to floor. Lavern Walker MD 09/27/2014 3:34 PM This report has been signed electronically. Document Information Commercial Construction Project Manager [facility] Patient Name: Viky Villagran Procedure Date: 12/27/2020 11:01 AM Date of : 1955 Admit Type: Outpatient Note Status: Finalized Date of : 1955 Admit Type: Outpatient Age: 65 Room: [facility] Gender: Female Note Status: Finalized Procedure: Colonoscopy Indications: High risk colon cancer surveillance: Personal history of multiple (3 or more) adenomas Providers: Yuliya Martinez MD (Doctor), Tae Hayes RN Referring MD: Kelly Hilliard MD (Referring MD) Medicines: Propofol per Anesthesia Complications: No immediate complications. Procedure: Pre-Anesthesia Assessment: - Prior to the procedure, a History and Physical was performed, and patient medications, allergies and sensitivities were reviewed. The patient's tolerance of previous anesthesia was reviewed. - The risks and benefits of the procedure and the sedation options and risks were discussed with the patient. All questions were answered and informed consent was obtained. - Patient identification and proposed procedure were verified prior to the procedure by the physician and the nurse. The procedure was verified in the procedure room. - Pre-procedure physical examination revealed no contraindications to sedation. After I obtained informed consent, the scope was passed under direct vision. All instruments were visually inspected immediately before and after removal from the patient to ensure they are fully intact. Throughout the procedure, the patient's blood pressure, pulse, and oxygen saturations were monitored continuously. The colonoscopy was performed without difficulty. The patient tolerated the procedure well. The [employer]-OP747A Colonoscope ([id number]) was introduced through the anus and advanced to the terminal ileum. The quality of the bowel preparation was good. The terminal ileum, ileocecal valve, appendiceal orifice, and rectum were photographed. Findings & Specimens: The perianal and digital rectal examinations were normal. The terminal ileum appeared normal. The entire examined colon appeared normal on direct and retroflexion views. Impression: - The examined portion of the ileum was normal. - The entire examined colon is normal on direct and retroflexion views. - No specimens collected. Recommendation: - Discharge patient to home. - Repeat colonoscopy in 5 years for surveillance. - Return to referring physician. Yuliya Martinez MD 12/27/2020 11:36:33 AM This report has been signed electronically. Document Information All Reviewers List Kelly Hilliard MD on 12/27/2020 20:49 08/15/2022 12:52 PM - Interface, Commercial Construction Project Manager Narrative & Impression REASON FOR STUDY: 10 days CONCLUSIONS: Preliminary Findings Patient had a min HR of 60 bpm, max HR of 128 bpm, and avg HR of 82 bpm. Predominant underlying rhythm was Sinus Rhythm. Isolated SVEs were rare (<1.0%), SVE Couplets were rare (<1.0%), and SVE Triplets were rare (<1.0%). Isolated VEs were rare (<1.0%), and no VE Couplets or VE Triplets were present. Agree with Preliminary Findings 04/12/2023 4:17 PM - Interface, Commercial Construction Project Manager Narrative & Impression REASON FOR STUDY: htn CONCLUSIONS: Normal sinus rhythm Nonspecific intraventricular conduction block Abnormal ECG When compared with ECG of 18-JUN-2017 15:51, QRS duration has increased Ventricular Rate: 81 Atrial Rate: 81 DC Interval: 170 QRS Duration: 136 QT/QTc: 412/478 ms P-R-T [place]: 72 : 69 : 65 degrees Communication and Comprehension: Communication and Comprehension Communication and Comprehension Follow-up Patient cognition:: Oriented to person;Oriented to place;Oriented to time;Alert (04/25/241536) Alteration in memory:: Forgetfulness;Dementia (04/25/241536) Patient able to understand instructions:: Written;Verbal (04/25/241536) Does the patient have any vision issues?: Yes (04/25/241536) Supports used:: Glasses or contacts (mass and L visual disturbance) (04/25/241536) Does the patient have hearing issues?: No (04/25/241536) Rastafarian or spiritual beliefs that impact treatment:: No (04/25/241536) Patient and Caregiver Support System: Patient lives: with a spouse Means of Transportation: Family transports Patient lives in: Two Story - How many stairs: 2 flights. 12 steps each Functional Status and ADL Skills: Ambulation: Cane ADLs/IADLs ADL/IADLs Does the patient need assistance with any of the following ADLs?: None (04/25/241536) Does the patient need assistance with any of the following IADLs?: Transportation (04/25/241536) Fall Risk Assessment: Fall risk factors present. History of falls within the past 12 months Uses assistive devices Balance or gait disturbances Bja-Ur-tlh-Go Test: Time began at 1:30. Patient stood from sitting position and walked approximately 10 feet, returned and sat down. Total time for gow-dp-zuy-go test was 16 seconds. The fall risk appears to be increased based on time > 16 sec on "Get Up and Go" test. Nutritional Health Checklist: Changed food due to illness or condition: No (0 pts) Eat fewer than 2 meals per day: No (0 pts) Eat few fruits veggies or milk products: No (0 pts) 3 or more drinks or beer, liquor, wine daily: No (0 pts) Tooth or mouth problem: No (0 pts) Not enough money to purchase food: No (0 pts) Eat alone: No (0 pts) 3 or more medications taken per day: Yes (2 pts) Weight change of 10 lbs. In 6 months: No (0 pts) Not always able to shop, cook or feed self: Yes (2 pts) Total points: 4 Nutritional Health Score & Recommendation: 3-5: Moderate nutritional risk Depression Screening: PHQ2/9 Screening PHQ2_9 Adult Little interest or pleasure in doing things: Several days (04/25/241537) Feeling down, depressed or hopeless: Nearly everyday (04/25/241537) Trouble falling or staying asleep, or sleeping too much: Several days (04/25/241537) Feeling tired or having little energy: More than half the days (04/25/241537) Poor appetite or overeating: Several days (04/25/241537) Feeling bad about yourself - or that you are a failure, or have let yourself or your family down: Not at all (04/25/241537) Trouble concentrating on things, such as reading the newspaper or watching television: Not at all (04/25/241537) Moving or speaking so slowly that other people could have noticed. Or the opposite - being so fidgety or restless that you have been moving around a lot more than usual: More than half the days (04/25/241537) Thoughts that you would be better off , or of hurting yourself: Not at all (04/25/241537) PHQ Adult Total Score: 10 (04/25/241537) PHQ Adult Score Description: Moderate Depression (04/25/241537) Social Determinants of Health Screening: SDoH Screening Tool Adult (for ages 18 years and over) Within the past 12 months, you worried that your food would run out before you got the money to buymore.: Never true (04/25/241538) Within the past 12 months, the food you bought just didn't last and you didn't have money to get more.: Never true (04/25/241538) Do you need food for this week?: No (04/25/241538) Do you currently live in a group home or have no steady place to sleep at night?: No (04/25/241538) Are you homeless or worried that you might be in the future?: No (04/25/241538) Has lack of transportation kept you from medical appointments, meetings, work, or from getting things needed for daily living? Check all that apply.: Yes, it has kept me from non-medical meetings, appointments, work, or from getting things that I need (04/25/241538) Do you have any trouble paying for your medications, or do you think you might in the future?: No (04/25/241538) How often do you feel lonely or isolated from those around you?: Often (04/25/241538) Do you feel unsafe or have concerns for your safety?: No (04/25/241538) Do you feel overwhelmed with taking care of a child, family member or friend?: No (04/25/241538) Have you been unable to get clothing when it was really needed?: No (04/25/241538) Do you have trouble paying your heating, water, or electric bill?: No (04/25/241538) Are you unemployed or without regular income?: No (04/25/241538) Would you like help connecting to resources in any of these categories?: Transportation;Connections(04/25/241538) Community Resources: Community Resources: Not Applicable Potential Resource Needs from Benefits Identified: No Benefits: Benefits Benefits Health plan benefits assessed: Adequate to cover care (04/25/241539) Is the patient a SNP?: No (04/25/241539) HRA Provider Assessment Documentation: Objective Past Medical History: Diagnosis Date 272.4 Marked hypertriglyceridemia Anticoagulation management encounter 03/30/2006 Calculus of kidney 02/01/2011 Carpal tunnel syndrome 08/17/2003 Cerebrovascular event, ill-defined, within last 8 weeks Controlled substance agreement signed 03/16/2017 Diverticulosis of colon 02/06/2008 DJD, BILATERAL KNEES 03/03/2003 DM type 2, goal A1c below 7 Dyslipidemia, goal to be determined Fracture of ribs, three, closed, left, initial encounter 04/09/2018 5th,6th, 7th Fracture of ribs, three, closed, right, initial encounter 04/09/2018 7th, 8th, 11th Fracture of transverse process of lumbar vertebra (HCC) 04/09/2018 L2 Gastroparesis 02/19/2008 Generalized anxiety disorder 09/19/2001 HTN, goal below 140/90 LONG-TERM USE OF ANTICOAGULANTS 03/30/2006 Macular degeneration Major depressive disorder, recurrent severe without psychotic features (HCC) 09/19/2001 MEDICATION USE AGREEMENT Menopause 10/02/2000 Menopause 10/02/2000 NEUROPATHY IN OTHER DIS 12/30/1999 OBESITY, BMI 30-34 (SEE ACTUAL BMI) 11/04/2009 Per Obesity Taxonomy Pulmonary embolus (HCC) 08/20/2008 Recurrent falls SCIATICA, LEFT 08/19/2004 Type 2 diabetes mellitus with diabetic neuropathy, with long-term current use of insulin ([facility]) 06/12/2017 More spcecified code listed on PL E11.42 Type 2 diabetes mellitus with hyperglycemia ([facility]) 08/16/2023 UPPER EXTREMETY VENOUS THROMBOSIS NOS 03/30/2006 Vertigo Patient Active Problem List Diagnosis Anxiety state Major depressive disorder, recurrent severe without psychotic features (HCC) Diabetic gastroparesis (HCC) CEREBROVASCULAR DZ, POST-STROKE DYSLIPIDEMIA, GOAL LDL BELOW 100 Vitamin D deficiency ADVANCE DIRECTIVE INFORMATION 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 (HCC) Type 2 diabetes mellitus with hemoglobin A1c goal of less than 8.0% (HCC) HTN, goal below 140/90 Hypothyroidism H/O: hysterectomy Female stress incontinence Intention tremor History of pulmonary embolism 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 Type 2 diabetes mellitus with diabetic nephropathy, with long-term current use of insulin (HCC) Type 2 diabetes mellitus with diabetic polyneuropathy, with long-term current use of insulin (HCC) Portal hypertension (HCC) Cirrhosis of liver with ascites (HCC) History of traumatic fracture Thrombocytopenia (HCC) Type 2 diabetes mellitus with both eyes affected by moderate nonproliferative retinopathy and macular edema, with long-term current use of insulin (HCC) Unspecified dementia, unspecified severity, without behavioral disturbance, psychotic disturbance, mood disturbance, and anxiety (HCC) Grade I diastolic dysfunction Age-related osteoporosis without current pathological fracture Family History Adopted: Yes Problem Relation Name Age of Onset Diabetes Father Diabetes Aunt (Unspecified) Diabetes Aunt (Unspecified) Cancer Father Lung Cancer Sister stomache Review of patient's allergies indicates: Allergen Reactions Adhesive Tape Aspirin stomach ulcer Hepatitis B Virus Vaccines Other (Please comment) Chest tightness with 2nd of 3 in series. Latex skin sensitivity Other - Drugs See scanned list of meds she "can" tolerate; per patient. Also allergic to anesthesia pt reports headache and vomiting post Penicillins rash Current Outpatient Medications Medication Sig Dispense Refill Cholecalciferol (VITAMIN D) 1000 units Tablet daily 30 Tab 5 [employer] Verio Flex System w/Device Kit Use to test blood sugars 4 times a day. 1 Kit 0 CPAP every night at bedtime. AdvizzerTouch Verio In Vitro Strip (Glucose Blood) Use to check sugars once daily E 11.9 100 Strip 3 AdvizzerTouch Delica Lancets 33G Use to check sugars daily E 11.9 100 Each 1 IceRocket G7 Sensor Use as directed. Change every 10 days. Supplied by Home Care Delivered Lisinopril 40 MG Oral Tablet Take 1 Tablet by mouth in the morning. 100 Tablet 1 Rosuvastatin Calcium 20 MG Oral Tablet (Crestor) TAKE 1 TABLET BY MOUTH EVERY DAY IN THE MORNING 100 Tablet 4 buPROPion HCl 100 MG Oral Tablet (Wellbutrin) Take one and one-half tablets (150mg) by mouth in themorning, and one tablet (100mg) at noon. 250 Tablet 1 Clopidogrel Bisulfate 75 MG Oral Tablet (pLAVix) TAKE 1 TABLET BY MOUTH EVERY DAY IN THE MORNING 100 Tablet 0 Levothyroxine Sodium 137 MCG Oral Tablet Take 1 Tablet by mouth in the morning. (at least 30 min prior to breakfast or other meds). 100 Tablet 1 Sertraline HCl 100 MG Oral Tablet (Zoloft) Take 2 Tablets by mouth in the morning. 200 Tablet 1 Spironolactone 25 MG Oral Tablet (Aldactone) Take 1 Tablet by mouth in the morning. 100 Tablet 1 Carvedilol 3.125 MG Oral Tablet (Coreg) 1 tablet in the am for one week, if tolerating then increase to 2 tabs in the am for one week 30 Tablet 4 Omeprazole 20 MG Oral Tablet Delayed Release Disintegrating Take by mouth. BD Pen Needle Micro U/F 32G X 6 MM (NOVOFINE 32G PEN NEEDLE) Use daily with lantus and novolog injections 4 times daily 400 Each 4 Ondansetron HCl 4 MG Oral Tablet (Zofran) Take 1 Tablet by mouth every 8 hours as needed for Nausea. Sennosides-Docusate Sodium 8.6-50 MG Oral Tablet (Senokot S) Take 1 Tablet by mouth in the morning. Polyethylene Glycol 3350 17 GM Oral Packet (Miralax) Take 1 Packet by mouth in the morning. Acetaminophen 325 MG Oral Tablet (Tylenol) TAKE 2 TABLETS ORALLY FOUR TIMES DAILY FOR 30 DAYS Metoclopramide HCl 5 MG Oral Tablet (Reglan) take 1 tablet by mouth up to 4 times a day before meals or snack 240 Tablet 3 Gabapentin 100 MG Oral Capsule (Neurontin) Take 1 Capsule by mouth in the morning and 1 Capsule at noon and 1 Capsule before bedtime. 270 Capsule 3 Rosuvastatin Calcium 20 MG Oral Tablet (Crestor) TAKE 1 TABLET BY MOUTH EVERY DAY IN THE MORNING 100 Tablet 1 NIFEdipine ER 30 MG Oral Tablet Extended Release 24 Hour (Adalat CC) TAKE 1 TABLET BY MOUTH EVERY DAY IN THE MORNING 100 Tablet 1 NovoLOG FlexPen 100 UNIT/ML Subcutaneous Solution Pen-injector (insulin aspart) Inject 15 units with breakfast, 10 units with lunch, and 15 units with supper 45 mL 3 Insulin Glargine Solostar 100 UNIT/ML Subcutaneous Solution Pen-injector (Lantus SoloStar) Inject 15 Units under the skin in the morning and 15 Units before bedtime. 30 mL 4 Gabapentin 300 MG Oral Capsule (Neurontin) Take 1 Capsule by mouth in the morning and 1 Capsule at noon and 1 Capsule before bedtime. 270 Capsule 3 No current facility-administered medications for this visit. Past Surgical History: Procedure Laterality Date ABDOMEN SURGERY PROCEDURE NEC 2002 small bowel repair ABDOMEN SURGERY PROCEDURE NEC 2003 adhesions removed stomach linned replaced BIOPSY OF BREAST, OPEN 1994 Benign left breast mass BREAST LESION,OTHER,EXCISION 11/20/1996 Dr. Michael BREAST LESION,OTHER,EXCISION 1994 Breast Excision, benign tumor/cyst right CATARACT SURGERY,COMPLEX 2019 Dr Brown [place] [facility] [place], W/BIOPSY 2001 Colonoscopy with Biopsy tumor removed COLONOSCOPY, DIAGNOSTIC (RECTUM) 12/13/2011 COLONOSCOPY FLEXIBLE PROXIMAL DIAGNOSTIC performed by LINDA SHRESTHA at ENDOSCOPY [facility] COLONOSCOPY, DIAGNOSTIC (RECTUM) 11/28/2017 adenomatous polyps, repeat 3 yrs/COLONOSCOPY FLEXIBLE PROXIMAL DIAGNOSTIC performed by Yuliya Martinez MD at ENDOSCOPY [facility] COLONOSCOPY, DIAGNOSTIC (RECTUM) 12/27/2020 normal, repeat 5 yrs / COLONOSCOPY FLEXIBLE PROXIMAL DIAGNOSTIC performed by Yuliya Martinez MD at ENDOSCOPY [facility] CT ABDOMEN/PELVIS 04/09/2018 acute nondisplaced fxs right transverse process of L2, multiple old fx Lumbar unchanged. [facility] CT C SPINE WO CONTRAST 04/09/2018 no fractures. [facility] CT CHEST WO CONTRAST 04/09/2018 several healing bilateral rib fractures. acute nondisplaced fx anterior left 5th, 6th and 7th and right 7th, 8th and 11th ribs. old cmopression fx T11. [facility] CT HEAD/BRAIN WO CONTRAST 04/09/2018 no acute intracranial abnormalities. [facility] CT L SPINE WO CONTRAST 04/09/2018 Acute non displaced fx right transverse process L2old superior endplate fxs L1, L3, L4, moderate spinal stenosis L3-L4 CT T SPINE WO CONTRAST 04/09/2018 mild compression deformity superior endplate T11, estimated loss 10 to 15% body height. [facility] DILATION AND CURETTAGE (D&C) 1979 FLUORESCEIN ANGIOGRAPHY MULTIFRAME Bilateral 01/06/2022 Dr. Mcintosh KNEE ARTHROSCOPY, DIAGNOSTIC 1996 DR MANAN caro LAPAROSCOPY, SURGICAL; W/LYSIS OF ADHESIONS 1995 LAPAROSCOPY, SURGICAL; W/LYSIS OF ADHESIONS 1998 LAPAROSCOPY, SURGICAL; W/LYSIS OF ADHESIONS [place] [facility] [place]AROSCOPY,BIOPSY 1995 adhesions removed/ lining in stomach repaired per pt LAPAROSCOPY,BIOPSY 2002 adhesions removed LIGATE/CUT OVIDUCT(S) 1983 partial OTHER 12/03/2009 Lysis of abdominal adhesions, laparoscopic cholecystectomy cholangiogram 12/03/[address] Castelan at [facility] OTHER (INFORMATION) ACT 112 Consent Signed, Dr. Mcintosh PARTIAL HYSTERECTOMY 1983 left ovaries REMOVAL OF OVARY(S) FOR TUMOR 1988 both ovaries TOTAL ABD HYSTERECTOMY W/WO REMOVAL OF TUBE(S) 08/13/1983 VASCULAR SURGERY PROCEDURE NEC 2000 XR CHEST 1 VIEW 04/09/2018 NAD [facility] Immunization History Administered Date(s) Administered COVID-19 mRNA, LNP-s, No Preserve, 2-Dose Series (Kustom Codes) 11/24/2020, 12/15/2020, 08/10/2021 COVID-19, MRNA-LNP, 23-24, PF, 50 MCG/0.5 mL, 12 YRS AND ABOVE, IM (MODERNA- Spikevax) 06/20/2023 H1N1 2009 Influenza, IM 10/27/2009 Hepatitis B, 20+ yrs 12/30/2013, 02/04/2014 Pneumococcal Conjugate Vaccine, 20-valent ([id number]) 04/05/2023 Pneumococcal Polysaccharide PPV23 (Pneumovax) 12/14/2005, 05/13/2010, 08/26/2021 Seasonal Influenza Virus Vaccine, Unspecified Formulation 05/25/2005, 05/22/2006, 05/26/2007, 05/25/2008, 09/29/2009, 09/27/2010, 05/26/2011, 05/06/2012, 05/21/2013, 05/29/2014, 08/13/2014, 05/11/2015, 05/02/2016, 06/12/2017, 04/26/2018, 06/06/2019, 06/10/2021, 06/01/2022 Seasonal Influenza, PF, 6 M & above, IM , (FluLaval or Fluzone) 06/12/2017, 04/26/2018, 06/06/2019 Seasonal Influenza, Quadrivalent Hd (Fluzone Hd) 06/10/2021, 06/01/2022 Seasonal Influenza, Quadrivalent, No Preserve, IM 05/11/2015, 05/02/2016, 05/22/2020 Seasonal Influenza, Trivalent, (IIV3), with Preserv, (Fluzone) 05/25/2005, 05/22/2006, 05/26/2007, 05/25/2008, 09/29/2009, 09/27/2010, 05/26/2011, 05/06/2012, 05/21/2013, 05/29/2014, 08/13/2014 TDAP (age 10 and older)(Boostrix) 12/30/2015 TDAP, Age 7 and older, IM (Adacel) 06/19/2006 Preventative Plan: Mammogram (Every 2 years for women 50-74 years of age): 10/17/23 Pap Smear (every 3 years): 06/19/06 Diabetes (Fasting plasma glucose every 3 years): Hemoglobin AIC Results: Lab Results Component Value Date/Time HEMOGLOBIN A1C - [facility] 8.0 (H) 04/03/2024 12:15 PM HEMOGLOBIN A1C - [facility] 5.9 (H) 11/12/2023 08:31 AM HEMOGLOBIN A1C - [facility] 5.6 08/16/2023 09:24 AM HEMOGLOBIN A1C - [facility] 9.6 (H) 04/05/2020 11:35 AM HEMOGLOBIN A1C - [facility] 10.2 (H) 06/06/2019 10:03 AM HEMOGLOBIN A1C - [facility] 9.1 (H) 04/26/2018 03:07 PM Lipid Testing (Every 5 years): Lipid Panel Results: Results for orders placed or performed in visit on 05/02/16 LIPID PANEL Result Value Ref Range HOURS FASTING 12 hours Triglycerides 298 (H) <200 mg/dL Cholesterol 169 <200 mg/dL HDL Cholesterol 34 (L) >39 mg/dL Cholesterol-HDL Ratio 5.0 LDL Cholesterol 75 0 - 129 mg/dL Results for orders placed or performed in visit on 04/03/24 LIPID PANEL WITH DIRECT LDL IF TG IS HIGH Result Value Ref Range Triglycerides 247 (H) <=174 mg/dL Cholesterol 185 <200 mg/dL HDL Cholesterol 45 (L) >49 mg/dL Non-HDL Cholesterol 140 <=159 mg/dL Colonoscopy or other screenin12/27/20 Bone Density (every 2+ years): 11/21/21 Health Maintenance Topic Date Due Influenza Vaccine (FLU shot) (1) 04/13/2024 COVID-19 Vaccine ( season) 2024 Zoster Vaccines (1 of 2) 02/10/2025 (Originally 02/12/2006) Diabetic Foot Exam 08/16/2024 HbA1c 10/04/2024 Mammogram 10/16/2024 Diabetic Eye Exam 11/04/2024 DXA Scan 11/21/2024 Depression Monitoring 02/27/2025 Albumin/Creatinine Ratio 04/03/2025 GFR 04/03/2025 TSH 04/03/2025 Adult Wellness Visit 04/22/2025 Colorectal Cancer Screening 12/27/2025 DTap/Tdap Vaccines (3 - Td or Tdap) 12/29/2025 Pneumococcal Vaccine: 65+ Years Completed MENINGOCOCCAL (MENACTRA/MENVEO) Aged Out HPV (Gardasil) Vaccine Aged Out RETIRED - COLONOSCOPY-EVERY 5 YRS AGES 18-100 Discontinued Hepatitis B Vaccine Discontinued Review of Systems: Review of Systems Eyes: Positive for visual disturbance. Neurological: Positive for dizziness and weakness. All other systems reviewed and are negative. Physical Exam: Vitals: 04/25/24 1529 Pulse: 79 Resp: 18 SpO2: 97% BP: 122/60 Pain Screening: Yes - Location: abdominal pain. bilateral legs, When: every day, Duration: constant, Aggravating Factors: movement , Relieved by: Tylenol Pain Scale: 9 out of 10 There is no height or weight on file to calculate BMI. Physical Exam Constitutional: Appearance: She is obese. HENT: Head: Normocephalic and atraumatic. Mouth/Throat: Mouth: Mucous membranes are moist. Eyes: Extraocular Movements: Extraocular movements intact. Neck: Vascular: No carotid bruit. Cardiovascular: Rate and Rhythm: Normal rate and regular rhythm. Heart sounds: Murmur heard. Pulmonary: Effort: Pulmonary effort is normal. Breath sounds: Normal breath sounds. Abdominal: General: Bowel sounds are normal. Palpations: Abdomen is soft. Musculoskeletal: General: No swelling. Normal range of motion. Cervical back: Neck supple. Skin: General: Skin is warm and dry. Neurological: General: No focal deficit present. Mental Status: She is alert and oriented to person, place, and time. Gait: Gait normal. Psychiatric: Mood and Affect: Mood normal. Behavior: Behavior normal. Lab Data: Lab Results Component Value Date/Time BUN 11 05/26/1996 01:30 PM BUN - [facility] 18 04/03/2024 12:15 PM BUN - [facility] 15 04/05/2020 11:35 AM Lab Results Component Value Date/Time CREATININE 0.6 (L) 05/26/1996 01:30 PM CREATININE - [facility] 0.8 04/03/2024 12:15 PM CREATININE - [facility] 0.8 04/05/2020 11:35 AM CREATININE, RANDOM URINE - [facility] 89 04/03/2024 12:15 PM CREATININE, RANDOM URINE - [facility] 235 06/06/2019 10:08 AM CREATININE-OUTSIDE LAB 0.83 10/08/2018 12:00 AM Lab Results Component Value Date/Time GLUCOSE 84 05/26/1996 01:30 PM GLUCOSE - [facility] 217 (H) 04/03/2024 12:15 PM GLUCOSE - [facility] 67 (L) 04/05/2020 11:35 AM GLUCOSE COMMENT Pre Meal 10/12/2003 10:54 AM GLUCOSE METER POCT - [facility] 114 12/13/2011 02:20 PM GLUCOSE METER READING - [facility] 445 (A) 09/09/2012 12:00 AM GLUCOSE URINE, POCT - [facility] Negative 07/20/2022 12:00 AM GLUCOSE, URINE - [facility] 2,000 09/30/2018 12:00 AM GLUCOSE-OUTSIDE LAB 470 (A) 10/08/2018 12:00 AM No components found for: "[id number]" Lab Results Component Value Date/Time LDL CHOLESTEROL (CALCULATED) - [facility] 83 04/05/2023 11:32 AM LDL CHOLESTEROL (CALCULATED) - [email or web address] 107 02/21/2017 11:36 AM LDL CHOLESTEROL (DIRECT MEASURE) - [facility] 89 04/03/2024 12:15 PM LDL CHOLESTEROL (DIRECT MEASURE) - [email or web address] 88 06/06/2019 10:03 AM LDL CHOLESTEROL (DIRECT MEASURE) - [facility] 93 09/29/2013 09:11 AM No results found for: "MICROALBUMIN" Assessment/Plan: Viky Moe" was seen today for adult annual wellness visit, initial visit. Diagnoses and all orders for this visit: Anxiety state Type 2 diabetes mellitus with both eyes affected by moderate nonproliferative retinopathy and macular edema, with long-term current use of insulin (HCC) Type 2 diabetes mellitus with diabetic nephropathy, with long-term current use of insulin (HCC) Major depressive disorder, recurrent severe without psychotic features (HCC) Type 2 diabetes mellitus with diabetic polyneuropathy, with long-term current use of insulin (HCC) Type 2 diabetes mellitus with diabetic nephropathy, without long-term current use of insulin (HCC) Cirrhosis of liver with ascites, unspecified hepatic cirrhosis type (HCC) Type 2 diabetes mellitus with hemoglobin A1c goal of less than 8.0% (HCC) Portal hypertension (HCC) CEREBROVASCULAR DZ, POST-STROKE Diabetic gastroparesis (HCC) DYSLIPIDEMIA, GOAL LDL BELOW 100 Female stress incontinence Generalized osteoarthritis H/O: hysterectomy History of pulmonary embolism History of traumatic fracture HTN, goal below 140/90 Hypothyroidism due to medication Intention tremor 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 Mild dementia without behavioral disturbance, psychotic disturbance, mood disturbance, or anxiety, unspecified dementia type (HCC) Vitamin D deficiency Grade I diastolic dysfunction Age-related osteoporosis without current pathological fracture PLAN Pt reports no active issues or adverse effects to the established treatment plan. No changes at this time. Strongly advised to contact her care team if changes occur. Care Planning (3+ Personal and/or Medical Goals): No falls Maintain independence Maintain current activity level Get a dog Treatment Plan: Patient continues to work on their progress to the goals set by themselves and their PCP Follow Up/Handouts: CAHAWV f/u one year I spent a total of Greater than 55 mins (exact time 60 mins) on the date of service in preparation,delivery, and documentation of the care provided to Viky Villagran excluding any time spent in the performance of separately billed services. Flores Lee PA-C documented in this encounter Plan of Treatment Upcoming Encounters Date Type Department Care Team (Late st Contact Info) Description 05/08/2024 11:10 AM EDT Office Visit Pharmacy, [facility] [address] [place] [address] [facility] [address] [place] [address] 05/17/2024 11:30 AM EDT Imaging Radiology [facility] [address] [facility] [place] [id number] 07/01/2024 9:30 AM EST Office Visit Otolaryngology Allergy [facility] [address] [place] [address] Brendon Maynard MD [address] [place] [address] 07/18/2024 2:00 PM EST Office Visit Hepatology, [facility] [address] [facility] [place] [address] Mary Bejarano MD [address] [facility] [place] [address] 04/27/2025 9:00 AM EDT Home Visit Care at Home [address] [facility] [place] [id number] Flores Lee PA-C [address] [place] [address] Scheduled Procedures Name Priority Associated Diagnoses Date/Ti me COLONOSCOPY FLEXIBLE PROXIMAL DIAGNOSTIC Recall History of colon polyps Health Maintenance Due Date Last Done Comments Cologuard 02/12/2001 Fecal Occult Blood Test 02/12/2001 Sigmoidoscopy 02/12/2001 DXA Scan 11/22/2023 11/21/2021, 11/11, 07/16/2017, Additional history exists COVID-19 Vaccine ( season) 2024 06/20/2023, 08/10/2021, 12/15/2020, Additional history exists Influenza Vaccine (FLU shot) (#1) 2024 06/01/2022, 06/01/2022, 06/10/2021, Additional history exists Diabetic Foot Exam 08/16/2024 08/16/2023, 0 04/05/2020, 11/14/2017, Additional history exists HbA1c 10/04/2024 04/03/2024, 04/0 08/2023, 08/16/2023, Additional history exists Mammogram 10/16/2024 10/17/2023, 03/0 01/2024, 10/13/2022, Additional history exists Diabetic Eye Exam 11/04/2024 11/05/2023, , 11/28/2021, Additional history exists Zoster Vaccines (1 of 2) 02/10/2025 Pos tponed from 02/12/2006 (Patient Declined After Education) Albumin/Creatinine Ratio 04/03/2025 024, 04/05/2023, 03/03/2022, Additional history exists GFR 04/03/2025 04/03/2024, 06/0 11/2023, 04/10/2023, Additional history exists TSH 04/03/2025 04/03/2024, 04/0 08/2023, 08/16/2023, Additional history exists Adult Wellness Visit 04/22/2025 04/22/2024 Depression Monitoring 04/25/2025 04/25/2024, 024 Colonoscopy 12/27/2025 12/27/2020, 12/11, 11/28/2017, Additional history exists Colorectal Cancer Screening 12/27/2025 DTap/Tdap Vaccines (3 - Td or Tdap) 12/29/2025 12/30/2015, 06/19/2006 Hepatitis B Vaccine Discontinued 02/04/2014, 4 VITAMIN D LEVEL ONCE IN A LIFETIME-USE SMARTSET# [id number] Completed 06/06/2019, 07/02/2017, 12/23/2014, Additional history exists RETIRED - COLONOSCOPY-EVERY 5 YRS AGES 18-100 [...] as of this encounter Visit Diagnoses Diagnosis Anxiety state- Primary Anxiety state, unspecified Type 2 diabetes mellitus with both eyes affected by moderate nonproliferative retinopathy and macular edema, with long-term current use of insulin (HCC) Type 2 diabetes mellitus with diabetic nephropathy, with long-term current use of insulin (HCC) Major depressive disorder, recurrent severe without psychotic features (HCC) Major depressive disorder, recurrent episode, severe, without mention of psychotic behavior Type 2 diabetes mellitus with diabetic polyneuropathy, with long-term current use of insulin (HCC) Type 2 diabetes mellitus with diabetic nephropathy, without long-term current use of insulin (HCC) Cirrhosis of liver with ascites, unspecified hepatic cirrhosis type (HCC) Type 2 diabetes mellitus with hemoglobin A1c goal of less than 8.0% (HCC) Portal hypertension (HCC) Portal hypertension CEREBROVASCULAR DZ, POST-STROKE Cerebral atherosclerosis Diabetic gastroparesis (HCC) Type II or unspecified type diabetes mellitus with neurological manifestations, not stated as uncontrolled DYSLIPIDEMIA, GOAL LDL BELOW 100 Other and unspecified hyperlipidemia Female stress incontinence Generalized osteoarthritis Generalized osteoarthrosis, unspecified site H/O: hysterectomy Acquired absence of both cervix and uterus History of pulmonary embolism Personal history of pulmonary embolism History of traumatic fracture Personal history of traumatic fracture HTN, goal below 140/90 Unspecified essential hypertension Hypothyroidism due to medication Intention tremor Essential and other specified forms of tremor 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 Obstructive sleep apnea (adult) (pediatric) Mild dementia without behavioral disturbance, psychotic disturbance, mood disturbance, or anxiety, unspecified dementia type (HCC) Vitamin D deficiency Unspecified vitamin D deficiency Grade I diastolic dysfunction Age-related osteoporosis without current pathological fracture Senile osteoporosis documented in this encounter Care Teams Book Publisher Relationship Specialty Start Date End Date Kelly Hilliard MD [address] [facility] [place] [address] PCP - General Family Medicine 09/27/18 documented as of this encounter
[2024-05-02] MEDS ORDERED: ONDANSETRON INJ 2 MG/ML 2 ML VIAL IV PRN (23:36)
[2024-05-02] MEDS ORDERED: POLYETHYLENE (MIRALAX) 17 GM PACK PO PRN (23:36)
[2024-05-02] MEDS ORDERED: DEXTROSE 50% 50 ML SYRINGE IV PRN (23:36)
[2024-05-02] MEDS ORDERED: PHARMACY GLYCEMIC MGMT CONSULT PRN (23:36)
[2024-05-02] MEDS ORDERED: GLUCOSE 40% GEL 15 GM TUBE PO PRN (23:36)
[2024-05-02] MEDS ORDERED: NITROGLYCERIN SL 0.4 MG/TAB TAB SL PRN (23:36)
[2024-05-02] MEDS ORDERED: CARBOHYDRATES FOR HYPOGLYCEMIA PO PRN (23:36)
[2024-05-02] MEDS ORDERED: LABETALOL HCL IV 5 MG/ML 20ML IV PRN (23:36)
[2024-05-02] MEDS ORDERED: GLUCOSE 10 TAB/TUBE PO PRN (23:36)
[2024-05-02] MEDS ORDERED: GLUCAGON FOR INJ 1 MG VIAL SQ PRN (23:36)
[2024-05-03] MEDS: ACETAMINOPHEN 325 MG TAB PO PRN
[2024-05-03] MEDS: LANTUS PER UNIT CHARGE SQ SCH ×2 (00:01→21:43)
[2024-05-03] MEDS: INSULIN ASPART PER UNIT CHARGE SC SCH (00:01)
[2024-05-03] MEDS: SODIUM CHLORIDE 0.9% 1,000 ML IV SCH (00:02)
[2024-05-03] MEDS ORDERED: METOCLOPRAMIDE HCL 5 MG TABLET PO PRN (00:33)
[2024-05-03] MEDS: KETOROLAC TROMETHAMINE 15 MG/ML VIAL IV ONE ×2 (01:28→11:34)
[2024-05-03] MEDS: diphenhydrAMINE Capsule 25 MG CAP PO ONE (01:28)
[2024-05-03] MEDS: INSULIN ASPART PER UNIT CHARGE SC ONE (03:53)
[2024-05-03] MEDS: buPROPion HCl 75 MG TABLET PO SCH (05:50)
[2024-05-03] MEDS: LEVOTHYROXINE SODIUM 137 MCG TABLET PO SCH (05:50)
[2024-05-03 05:58] LABS: BUN Creatinine Ratio 24.7 (10-20); Calcium 8.5 mg/dl (8.6-10.3); Creatinine Clr Calc Pharmacy 63.5 ml/min; Est GFR (African American) 86.5 ml/min; Est GFR (Non-African American) 74.6 ml/min; Magnesium 1.8 mg/dl (1.7-2.4); Potassium 3.9 mmol/L (3.5-5.1)
[2024-05-03 06:02] LABS: Basophils # (auto) 0.04 K/uL (0.00-0.20); Basophils % (auto) 0.9 %; Eosinophils # (auto) 0.09 K/uL (0.00-0.50); Hematocrit (blood only) 28.8 % (37.0-47.0); Hemoglobin 9.7 g/dl (12.0-16.0); Immature Granulocytes # (auto) 0.01 K/uL (0.01-0.20); Immature Granulocytes % (auto) 0.2 %; Lymphocytes # (auto) 1.63 K/uL (1.20-3.40); Lymphocytes % (auto) 35.4 %; Mean Corpuscular Hemoglobin 29.8 pg (25.0-34.0); Mean Corpuscular Hgb Conc 33.7 g/dL (32.0-36.0); Mean Corpuscular Volume 88.3 fL (80.0-100.0); Mean Platelet Volume 10.3 fL (9.4-12.4); Monocytes # (auto) 0.34 K/uL (0.11-0.59); Monocytes % (auto) 7.4 %; Neutrophils # (auto) 2.49 K/uL (1.40-6.50); Neutrophils % (auto) 54.1 %; Platelet Count 88 K/uL (130-400); RDW Coefficient of Variation 11.9 % (11.5-14.5); RDW Standard Deviation 38.5 fL (36.4-46.3); Red Blood Count 3.26 M/uL (4.20-5.40)
[2024-05-03 06:05] LABS: Troponin I High Sensitivity 5.1 pg/ml (0-14)
[2024-05-03 07:46] LABS: Estimated Average Glucose 212 mg/dl
[2024-05-03] MEDS ORDERED: SPIRONOLACTONE 25 MG TAB PO SCH (09:00)
[2024-05-03] MEDS: carvediloL 3.125 MG TAB PO SCH (09:46)
[2024-05-03] MEDS: HEPARIN SOD 5,000 UNIT/0.5 ML VIAL SQ SCH (09:54)
[2024-05-03] MEDS: GABAPENTIN 300 MG CAP PO SCH (09:54)
[2024-05-03] MEDS: DOCUSATE SODIUM/SENNA 50/8.6MG TAB PO SCH (09:54)
[2024-05-03] MEDS: lisinopril 40 MG TAB PO SCH (09:54)
[2024-05-03] MEDS: SERTRALINE HCL 100 MG TABLET PO SCH (09:55)
[2024-05-03] MEDS: ROSUVASTATIN CALCIUM 20 MG TAB PO SCH (09:55)
[2024-05-03] MEDS: NIFEdipine EXTENDED REL 30 MG TABCR PO SCH (09:55)
[2024-05-03] MEDS: PANTOprazole 40 MG TAB PO SCH (09:55)
[2024-05-03] MEDS: CLOPIDOGREL BISULFATE 75 MG TAB PO SCH (09:59)
--- NOTE | 2024-05-03 11:26 | Electrocardiogram Report ---
Test Reason : Blood Pressure : */* mmHG Vent. Rate : 80 BPM Atrial Rate : 80 BPM P-R Int : 156 ms QRS Dur : 136 ms QT Int : 420 ms P-R-T Axes : 53 29 29 degrees QTcB Int : 484 ms Normal sinus rhythm Right bundle branch block Minimal voltage criteria for LVH, may be normal variant Cannot rule out Inferior infarct , age undetermined Abnormal ECG When compared with ECG of 22-Feb-2024 16:51, No significant change was found Confirmed by Alvin Williamson ([id number]) on 05/03/2024 11:25:53 AM Referred By: Adria Hilliard Confirmed By: Alvin Williamson
--- NOTE | 2024-05-03 15:03 | Pharmacy Report ---
Pharmacy Glycemic Short Note 2 - Date of Service May 03, 2024 - Glycemic Short BSG Results (Last 24 hours): 05/02/24 05/02/24 05/02/24 15:35 15:55 18:31 Glucose 572 H* POC Glucose 585 H* 332 H* 05/02/24 05/02/24 05/03/24 19:58 23:24 01:34 Glucose POC Glucose 266 H 287 H 193 H 05/03/24 05/03/24 05/03/24 03:43 05:27 08:14 Glucose 102 H POC Glucose 196 H 100 H 05/03/24 12:16 Glucose POC Glucose 213 H OUTPATIENT ANTIDIABETIC REGIMEN: * Lantus 20 units SQ BID * Trulicity 4.5mg SQ weekly * HbA1c 6.6% (02/22/24) 9.0% (05/03/24) ASSESSMENT: * Viky is a 69 YOF presenting with hyperglycemia, headaches, and hypertension with a history of T2DM. Pharmacy has been consulted to assist with glycemic management while inpatient. * Cause of hyperglycemia unclear at this time, appears to not be well controlled recently by increase in HbA1c. BSGs downtrended overnight with fluids and insulin administration. * Lantus started at home dose, Novolog initiated at a weight based stress of 2. Will add a Lantus scale based on BSGs between a weight based stress of 2 and 3. PLAN FOR INPATIENT GLYCEMIC CONTROL: * Hold outpatient oral diabetes medications * Basal insulin * Lantus 15-20 units SQ BID (see eMAR for additional details) * Bolus insulin * NovoLog per scale ACHS or Q6hrs while NPO * Goal Range: Low 110 mg/dL - High 140 mg/dL * Correction Factor: 30 mg/dL/unit * Nutritional / Prandial insulin per carb ratio of 1 unit per 8 grams CHO consumed
--- NOTE | 2024-05-03 15:32 | Hospitalist Progress Note ---
Date of Service May 03, 2024 Assessment & Plan (1) Hyperglycemia: Plan: 69-year-old female with past medical history significant for diabetic gastroparesis, type 2 diabetes, diabetic retinopathy, hyperlipidemia, hypothyroidism, diabetic polyneuropathy, obstructive sleep apnea on CPAP, cirrhosis of liver with ascites, portal hypertension, history of CVA, hypertension, grade 1 diastolic dysfunction, female stress incontinence, generalized osteoarthritis, unspecified dementia, thrombocytopenia, major depression, anxiety, intention tremor, history of pulmonary embolism who lives with her and ambulates with a walker when she is outside of the house comes in because of hyperglycemia. Patient states when she woke up today sugars were running in 300s. She was having severe headaches. Nausea. And the blood pressure was running high. Denies any fevers. Has some dizziness. Vision is okay. No runny nose or sore throat or cough. Appetite is not great. Complains of heaviness in the chest. And dyspnea on exertion. No abdominal pain. Normal bowel and bladder movements. Symptoms ankles swell up.She is having on and off nosebleeds last bleed was few days back. Currently resting comfortably and hemodynamics are okay. Hyperglycemia Poorly controlled diabetes Sugars 572 on presentation With the fluids improved to 266 Will continue home Lantus 15 units twice daily Sliding scale Follow HbA1c levels Glycemic pharmacy consult IV fluids Close monitor 05/03 A1c 9.0 BSG is 100/213 Continue insulin glargine and NovoLog Pharmacy glycemic consult Hypertension Elevated Continue home medications nifedipine, Coreg, lisinopril, spironolactone IV labetalol as needed Will monitor 05/03 Resume spironolactone Continue nifedipine, Coreg, lisinopril Monitor closely Chest tightness Initial EKG and troponin okay We will follow serial enzymes and an echo Will monitor 05/03 Troponin x 2 negative EKG no signs of acute ischemia or infarct Echocardiogram pending Cardiology consulted given risk factors for CAD History of CVA On Plavix and statin History of liver cirrhosis Monitor for volume overload Thrombocytopenia Platelets 112 Mostly from cirrhosis Hyponatremia Sodium 136 Mostly pseudohyponatremia d/c IV fluids Obstructive sleep apnea CPAP nightly Hypothyroidism On Synthyroid Hyperlipidemia On statin Depression On bupropion Diabetic polyneuropathy On gabapentin DVT prophylaxis SCDs and heparin subcu Monitor platelets Disposition Med/telemetry Full code Admission and Anticipated Discharge Date Admission Date: May 02, 2024 Subjective Follow-up for hyperglycemia, hypertension, etc. Seen resting in bed, comfortable, not in distress Was having frontal headache, chronic, being worked up as an outpatient, brain MRI pending Reports she still has chest pain going on, feels like pressure But no nausea/vomiting, diaphoresis, shortness of breath No recent medication changes No other symptoms Review of Systems Review of Systems: all noted and negative except for above Physical Exam Physical Exam: General- oriented x 3, not in distress, speaks in sentences with no effort or accessory muscle use Eyes- anicteric Neck- no JVD Lungs- clear breath sounds bilaterally, no rales/wheezes Heart- normal rate, regular rhythm; no murmurs Abdomen- normal bowel sounds, nondistended, soft, nontender Extremities- no pretibial edema, no calf tenderness Neuro- alert, oriented x 3; no gross focal neurologic deficits Skin- warm & dry Results & Data Results & Data Vital Signs (Past 12 Hours) Vital Signs Temp Pulse Pulse Resp BP Pulse Ox O2 Del Method 05/03/24 11:28 36.6 C 67 16 153/72 H 98 Room Air 05/03/24 08:15 36.4 C L 66 16 156/74 H 97 Room Air 05/03/24 07:59 68 all noted and reviewed including below
[2024-05-03] MEDS: KETOROLAC TROMETHAMINE 15 MG/ML VIAL IV PRN (17:24)
[2024-05-03] MEDS: SPIRONOLACTONE 25 MG TAB PO SCH (17:25)
[2024-05-03] MEDS: HYDROCODONE/ACETAMOPHEN 5/325MG TAB PO PRN (20:07)
--- NOTE | 2024-05-03 20:28 | Cardiology Consultation ---
Date of Consultation May 03, 2024 Assessment & Plan (1) Precordial chest pain: (2) Chest pain: (3) Dizziness: (4) Hypertension: (5) 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: (6) Fall: (7) Ambulatory dysfunction: Plan Assessment and plan Supervising Physician Co-Signing Physician Notes Assessment and plan Chest pain atypical Dizziness Shortness of breath on exertion Frequent falls ambulatory dysfunction Diabetes mellitus Dyslipidemia Chest pain nonexertional Had cardiac cath in March 2023 with normal coronary arteries Troponins are negative EKG no acute ischemic changes No evidence of acute coronary syndrome Echocardiogram shows normal ejection fraction without wall motion abnormalities No further cardiac workup at this time Dizziness which has been chronic especially worse with changing positions Consider checking orthostatic blood pressures could have autonomic dysfunction with underlying uncontrolled diabetes Blood pressure is now controlled. 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 Diabetic polyneuropathy obstructive sleep apnea, cirrhosis history of pulmonary embolism presented with headaches high sugars dizziness Patient was admitted in March 2023 last year with chest pain -concern for unstable angina underwent cardiac catheterization which showed normal coronary arteries. Patient continues to have intermittent episodes of chest tightness which is nonexertional usually associated with dizziness Patient reports recurrent falls in the past few years Allergies Allergy/AdvReac Type Severity Reaction Status Date / Time adhesive Allergy Intermediate RASH Verified 02/22/24 19:12 Iodinated Contrast Media Allergy Intermediate burning Verified 02/22/24 19:12 and aching in veins latex Allergy Intermediate RASH Verified 02/22/24 19:12 Penicillins Allergy Intermediate n/v, rash Verified 02/22/24 19:12 Anesthetics - Amide Type - AdvReac Intermediate Vomiting Verified 02/22/24 19:12 Select A [Anesthetics - Amide Type] Anesthetics - Juju Type- AdvReac Intermediate Vomiting Verified 02/22/24 19:12 Parabens hepatitis B virus vaccine AdvReac Intermediate CHEST Verified 02/22/24 19:12 TIGHTNESS WITH 2ND DOSE. ketorolac AdvReac Intermediate ITCHING. Verified 02/22/24 19:12 tromethamine AdvReac Intermediate ITCHING. Verified 02/22/24 19:12 aspirin AdvReac Unknown CONTRAINDICATED---currently Verified 02/22/24 19:12 with gastric ulcer, per pt Home Medications Medication Instructions Recorded Confirmed Type bupropion HCl 100 mg tablet 100 mg PO QPM 05/03/24 05/03/24 History bupropion HCl 100 mg tablet 150 mg PO DAILYBB 05/03/24 05/03/24 History carvedilol 3.125 mg tablet 3.125 mg PO BID 05/03/24 05/03/24 History clopidogrel 75 mg tablet 75 mg PO DAILY 05/03/24 05/03/24 History gabapentin 300 mg capsule 300 mg PO TID 05/03/24 05/03/24 History insulin aspart U-100 100 unit/mL 15 unit subcut UD 05/03/24 05/03/24 History (3 mL) subcutaneous pen (Novolog FlexPen U-100 Insulin aspart) insulin glargine 100 unit/mL (3 15 unit subcut BID 05/03/24 05/03/24 History mL) subcutaneous pen (Lantus Solostar U-100 Insulin) levothyroxine 137 mcg tablet 137 mcg PO DAILY 05/03/24 05/03/24 History lisinopril 40 mg tablet 40 mg PO DAILY 05/03/24 05/03/24 History metoclopramide HCl 5 mg tablet 5 mg PO QID PRN Nausea And Vomiting 05/03/24 05/03/24 History nifedipine 30 mg tablet,extended 30 mg PO DAILY 05/03/24 05/03/24 History release omeprazole 20 mg capsule,delayed 20 mg PO DAILY 05/03/24 05/03/24 History release rosuvastatin 20 mg tablet 20 mg PO DAILY 05/03/24 05/03/24 History sennosides 8.6 mg-docusate sodium 1 tab PO DAILY 05/03/24 05/03/24 History 50 mg tablet (Senexon-S) sertraline 100 mg tablet 200 mg PO DAILY 05/03/24 05/03/24 History spironolactone 25 mg tablet 25 mg PO DAILY 05/03/24 05/03/24 History Patient History Medical History Cellulitis of great toe of right foot Cellulitis of foot, right Surgical History History of oophorectomy S/P left knee arthroscopy H/O dilation and curettage H/O abdominal surgery small bowel repair lysis of adhesions History of hysterectomy History of cholecystectomy History of tubal ligation Family History Father Lung cancer Diabetes Sister Stomach cancer Social History Smoking Status: Never smoker Tobacco Type: Cigarettes Second Hand Exposure: No; Hx Alcohol Use: No Hx Substance Use: No Preferred Language: Israeli Communication Ability: Effective Visual Impairment: No Limitations Hearing Ability: Normal Pathology Collector Required: No Beliefs That Will Affect Care: None marital status: Current Living Situation: Spouse Current Living Situation Comment: with How many Children do You have: 0 Other Information That Helps Us Care for You: No Feels Safe at Home: Yes Safety Concerns: Feels Safe At This Time Assistive Devices: Walker Assistive Devices Comment: uses walker as needed at home, walker provided to pt Results & Data Vital Signs (Past 12 Hours) Vital Signs Temp Pulse Pulse Resp BP Pulse Ox O2 Del Method 05/03/24 20:01 36.7 C 74 20 112/57 L 98 Room Air 05/03/24 19:45 Room Air 05/03/24 15:54 36.6 C 71 16 119/64 95 Room Air 05/03/24 15:40 76 05/03/24 11:28 36.6 C 67 16 153/72 H 98 Room Air Diagnostic Findings Cardiac cath March 2023 [id number] vessel trifurcating into LAD, circumflex, and ramus. No disease. LAD-large caliber and transapical. Gives a medium to large caliber branching first diagonal followed by a small to medium branching second diagonal and a medium caliber branching third diagonal. The LAD and its branches have no angiographically significant disease. Ramus- large caliber and branching. There is ostial to proximal stenosis of less than 30%. LCx-large caliber and dominant. Vessel travels in the AV groove giving a small to medium caliber branching OM1 it then provides a large caliber branching OM 2. The AV groove vessel then becomes medium in caliber and provides a medium to large posterolateral branch and a medium caliber long PDA. No angiographically significant disease in the circumflex or its branches. RCA-small to medium caliber nondominant. No disease. Medications Administered Current Inpatient Medications Acetaminophen (Acetaminophen 325 Mg Tab) 650 mg PO Q4H PRN PRN Reason: Pain or Fever Stop: 06/01/24 23:35 Last Admin: 05/03/24 00:00 Dose: 650 mg Hydrocodone Bitart/Acetaminophen (Hydrocodone/Acetamophen 5/325mg Tab) 1 tab PO Q6H PRN PRN Reason: Severe Pain (Scale 7, 8, 9,10) Stop: 05/17/24 18:41 Last Admin: 05/03/24 20:07 Dose: 1 tab Bupropion HCl (Bupropion Hcl 100 Mg Tablet) 100 mg PO QPM BRENDA Stop: 06/02/24 20:59 Bupropion HCl (Bupropion Hcl 75 Mg Tablet) 150 mg PO DAILYBB BRENDA Stop: 06/02/24 06:29 Last Admin: 05/03/24 05:50 Dose: 150 mg Carvedilol (Carvedilol 3.125 Mg Tab) 3.125 mg PO BID BRENDA Stop: 06/02/24 08:59 Last Admin: 05/03/24 20:06 Dose: 3.125 mg Clopidogrel Bisulfate (Clopidogrel Bisulfate 75 Mg Tab) 75 mg PO DAILY BRENDA Stop: 06/02/24 08:59 Last Admin: 05/03/24 09:59 Dose: Not Given Dextrose (Dextrose 50% 50 Ml Syringe) 25 - 50 ml IV UD PRN; Protocol PRN Reason: Hypoglycemia Protocol Stop: 06/01/24 23:35 Gabapentin (Gabapentin 300 Mg Cap) 300 mg PO TID BRENDA Stop: 06/02/24 08:59 Last Admin: 05/03/24 20:04 Dose: 300 mg Glucagon (Glucagon For Inj 1 Mg Vial) 1 mg SQ UD PRN; Protocol PRN Reason: Hypoglycemia Protocol Stop: 06/01/24 23:35 Glucose (Glucose 40% Gel 15 Gm Tube) 15 - 30 gm PO UD PRN; Protocol PRN Reason: Hypoglycemia Protocol Stop: 06/01/24 23:35 Glucose (Glucose 10 Tab/Tube) 4 - 8 tab PO UD PRN; Protocol PRN Reason: Hypoglycemia Treatment Stop: 06/01/24 23:35 Heparin Sodium (Porcine) (Heparin Sod 5,000 Unit/0.5 Ml Vial) 5,000 units SQ Q12 [facility] Stop: 06/02/24 08:59 Last Admin: 05/03/24 20:07 Dose: 5,000 units Insulin Aspart (Insulin Aspart Per Unit Charge) 0 units SC ACHS [facility] Stop: 06/01/24 23:44 Last Admin: 05/03/24 18:17 Dose: 9 units Insulin Glargine (Lantus Per Unit Charge) 0 units SQ BID [facility]; Protocol Stop: 06/02/24 20:59 Ketorolac Tromethamine (Ketorolac Tromethamine 15 Mg/Ml Vial) 15 mg IV Q6H PRN PRN Reason: Pain Stop: 05/08/24 12:15 Last Admin: 05/03/24 17:24 Dose: 15 mg Labetalol HCl (Labetalol Hcl Iv 5 Mg/Ml 20ml) 10 mg IV Q4H PRN PRN Reason: SBP >170 Stop: 06/01/24 23:35 Levothyroxine Sodium (Levothyroxine Sodium 137 Mcg Tablet) [facility] Stop: 06/02/24 06:29 Last Admin: 05/03/24 05:50 Dose: 137 mcg Lisinopril (Lisinopril 40 Mg Tab) 40 mg PO DAILY [facility] Stop: 06/02/24 08:59 Last Admin: 05/03/24 09:54 Dose: 40 mg Metoclopramide HCl (Metoclopramide Hcl 5 Mg Tablet) 5 mg PO QID PRN PRN Reason: Nausea And Vomiting Stop: 06/02/24 00:32 Miscellaneous (Carbohydrates For Hypoglycemia ) 15 - 30 gm PO UD PRN PRN Reason: Hypoglycemia Protocol Stop: 06/01/24 23:35 Miscellaneous Information (Pharmacy Glycemic Mgmt Consult) 1 each N/A UD PRN PRN Reason: Consult Stop: 06/01/24 23:35 Nifedipine (Nifedipine Extended Rel 30 Mg Tabcr) 30 mg PO DAILY [facility] Stop: 06/02/24 08:59 Last Admin: 05/03/24 09:55 Dose: 30 mg Nitroglycerin (Nitroglycerin Sl 0.4 Mg/Tab Tab) 0.4 mg SL Q5M PRN PRN Reason: Chest Pain Stop: 06/01/24 23:35 Ondansetron HCl (Ondansetron Inj 2 Mg/Ml 2 Ml Vial) 4 mg IV Q6H PRN PRN Reason: Nausea Stop: 06/01/24 23:35 Pantoprazole Sodium (Pantoprazole 40 Mg Tab) 40 mg PO DAILY [facility] Stop: 06/02/24 08:59 Last Admin: 05/03/24 09:55 Dose: 40 mg Polyethylene Glycol (Polyethylene (Miralax) 17 Gm Pack) 17 gm PO DAILY PRN PRN Reason: Constipation Stop: 06/01/24 23:35 Rosuvastatin Calcium (Rosuvastatin Calcium 20 Mg Tab) 20 mg PO DAILY BRENDA Stop: 06/02/24 08:59 Last Admin: 05/03/24 09:55 Dose: 20 mg Senna/Docusate Sodium (Docusate Sodium/Senna 50/8.6mg Tab) 1 tab PO DAILY [facility] Stop: 06/02/24 08:59 Last Admin: 05/03/24 09:54 Dose: 1 tab Sertraline HCl (Sertraline Hcl 100 Mg Tablet) 200 mg PO DAILY [facility] Stop: 06/02/24 08:59 Last Admin: 05/03/24 09:55 Dose: 200 mg Spironolactone (Spironolactone 25 Mg Tab) 25 mg PO QAM [facility] Stop: 06/02/24 15:44 Last Admin: 05/03/24 17:25 Dose: 25 mg ECG Additional Comments: Sinus rhythm right bundle branch block 69 bpm
[2024-05-03] MEDS ORDERED: LANTUS PER UNIT CHARGE SQ SCH (21:00)
[2024-05-03] MEDS: buPROPion HCl 100 MG TABLET PO SCH (21:43)
--- NOTE | 2024-05-04 11:16 | Magnetic Resonance Report ---
MRI OF THE BRAIN WITHOUT CONTRAST CLINICAL HISTORY: Headache. COMPARISON STUDY: MRI of the brain April 11, 2018. Head CT May 02, 2024. TECHNIQUE: Utilizing a 1.5 Misa magnet and dedicated coil, multiplanar, multiecho imaging of the bra in was performed without IV contrast. FINDINGS: There are no foci of restricted diffusion to suggest acute infarct. No acute intracranial h emorrhage, midline shift or mass effect is present. Ventricular system is normal. Basal cisterns are patent. Flow-voids for the major intracranial vessels are present. There are no intracranial masses o n unenhanced exam. Numerous white matter T2 hyperintense foci are similar to previous MRI. These favo r small vessel disease. Calvarial signal is normal. There is no evidence for sinusitis. There is no m astoid fluid. IMPRESSION: No acute intracranial findings ACT 112: Negative or not required by law. Electronically signed by: Mike Silverman M.D. 05/04/2024 11:13 AM
--- NOTE | 2024-05-04 12:09 | Electrocardiogram Report ---
Test Reason : Blood Pressure : */* mmHG Vent. Rate : 69 BPM Atrial Rate : 69 BPM P-R Int : 160 ms QRS Dur : 140 ms QT Int : 472 ms P-R-T Axes : 64 45 47 degrees QTcB Int : 505 ms Normal sinus rhythm Right bundle branch block Abnormal ECG When compared with ECG of 02-May-2024 15:53, No significant change was found Confirmed by Alvin Williamson ([id number]) on 05/04/2024 12:09:20 PM Referred By: Adria Hilliard Confirmed By: Alvin Williamson
--- NOTE | 2024-05-04 16:39 | Hospitalist Progress Note ---
Date of Service May 04, 2024 Assessment & Plan (1) Hyperglycemia: Plan: per admitting service notes with addendum: 69-year-old female with past medical history significant for diabetic gastroparesis, type 2 diabetes, diabetic retinopathy, hyperlipidemia, h ypothyroidism, diabetic polyneuropathy, obstructive sleep apnea on CPAP, cirrhosis of liver with ascites, portal hypertension, history of CVA, hypertension, grade 1 diastolic dysfunction, female stress incontinence, generalized osteoarthritis, unspecified dementia, thrombocytopenia, major depression, anxiety, intention tremor, history of pulmonary embolism who lives with her and ambulates with a walker when she is outside of the house comes in because of hyperglycemia. Patient states when she woke up today sugars were running in 300s. She was having severe headaches. Nausea. And the blood pressure was running high. Denies any fevers. Has some dizziness. Vision is okay. No runny nose or sore throat or cough. Appetite is not great. Complains of heaviness in the chest. And dyspnea on exertion. No abdominal pain. Normal bowel and bladder movements. Symptoms ankles swell up.She is having on and off nosebleeds last bleed was few days back. Currently resting comfortably and hemodynamics are okay. Hyperglycemia Poorly controlled diabetes Sugars 572 on presentation With the fluids improved to 266 Will continue home Lantus 15 units twice daily Sliding scale Follow HbA1c levels Glycemic pharmacy consult IV fluids Close monitor 05/03 A1c 9.0 BSG is 100/213 Continue insulin glargine and NovoLog Pharmacy glycemic consult 05/04 Blood glucose improved Hypertension Elevated Continue home medications nifedipine, Coreg, lisinopril, spironolactone IV labetalol as needed Will monitor 05/03 Resume spironolactone Continue nifedipine, Coreg, lisinopril Monitor closely 05/04 Blood pressure also improving Chest tightness Initial EKG and troponin okay We will follow serial enzymes and an echo Will monitor 05/03 Troponin x 2 negative EKG no signs of acute ischemia or infarct Echocardiogram pending Cardiology consulted given risk factors for CAD 05/04 Echocardiogram: No wall motion abnormalities Evaluated by cardiology service, does not recommend any further cardiac testing at this point Headache left sided Possible migraine? Brain MRI: no acute process Had relieved by Toradol as per patient Trial of sumatriptan As needed [place] History of CVA On Plavix and statin History of liver cirrhosis Monitor for volume overload Thrombocytopenia Platelets 112--> 88 Mostly from cirrhosis Hyponatremia Sodium 136 Mostly pseudohyponatremia d/c IV fluids Obstructive sleep apnea CPAP nightly Hypothyroidism On Synthyroid Hyperlipidemia On statin Depression On bupropion Diabetic polyneuropathy On gabapentin DVT prophylaxis SCDs and heparin subcu Monitor platelets Disposition Med/telemetry Full code Admission and Anticipated Discharge Date Admission Date: May 02, 2024 Subjective Resting in bed, comfortable, not in distress Reports left-sided headache, 8 out of 10, Associated with light sensitivity Also still having some mild chest/epigastric discomfort No other new symptoms Review of Systems Review of Systems: all noted and negative except for above Physical Exam Physical Exam: General- oriented x 3, not in distress, speaks in sentences with no effort or accessory muscle use Eyes- anicteric Neck- no JVD Lungs- clear breath sounds bilaterally, no rales/wheezes Heart- normal rate, regular rhythm; no murmurs Abdomen- normal bowel sounds, nondistended, soft, nontender Extremities- no pretibial edema, no calf tenderness Neuro- alert, oriented x 3; no gross focal neurologic deficits Skin- warm & dry Results & Data Results & Data Vital Signs (Past 12 Hours) Vital Signs Temp Pulse Pulse Resp BP Pulse Ox O2 Del Method 05/04/24 16:00 71 05/04/24 15:48 36.8 C 64 18 112/59 L 91 Room Air 05/04/24 12:12 36.6 C 96 H 18 136/71 96 Room Air 05/04/24 09:00 36.5 C 61 16 114/64 96 Room Air 05/04/24 08:00 63 all noted and reviewed including below
[2024-05-04] MEDS: SUMAtriptan succinate 50 MG TAB PO ONE (17:41)
--- NOTE | 2024-05-05 10:42 | Pharmacy Report ---
Pharmacy Glycemic Short Note 2 - Date of Service May 05, 2024 - Glycemic Short BSG Results (Last 24 hours): 05/04/24 05/04/24 05/04/24 12:19 14:43 17:20 POC Glucose 152 H 267 H 105 H 05/04/24 05/04/24 05/05/24 20:25 23:03 07:58 POC Glucose 340 H* 129 H 112 H OUTPATIENT ANTIDIABETIC REGIMEN: * Lantus 20 units SQ BID * Trulicity 4.5mg SQ weekly * HbA1c 6.6% (02/22/24) 9.0% (05/03/24) ASSESSMENT: 05/05 * BSGs acceptable over last 24 hrs * 63 units SQ insulin given over last 24 hours while tolerating a diet * Fasting BSG at goal this AM, FBS 112, with 35 units basal on board - will continue a similar dose * Post-prandial BSGs at goal yesterday w/ exception of HS BSG which was elevated secondary to pt eating just prior to BSG being checked. Will continue current Novolog CR/CF 05/03 * Viky is a 69 YOF presenting with hyperglycemia, headaches, and hypertension with a history of T2DM. Pharmacy has been consulted to assist with glycemic management while inpatient. * Cause of hyperglycemia unclear at this time, appears to not be well controlled recently by increase in HbA1c. BSGs downtrended overnight with fluids and insulin administration. * Lantus started at home dose, Novolog initiated at a weight based stress of 2. Will add a Lantus scale based on BSGs between a weight based stress of 2 and 3. PLAN FOR INPATIENT GLYCEMIC CONTROL: * Hold outpatient oral diabetes medications * Basal insulin * Lantus 15-20 units SQ BID (see eMAR for additional details) * Bolus insulin * NovoLog per scale ACHS or Q6hrs while NPO * Goal Range: Low 110 mg/dL - High 140 mg/dL * Correction Factor: 30 mg/dL/unit * Nutritional / Prandial insulin per carb ratio of 1 unit per 8 grams CHO consumed
[2024-05-05] MEDS: SUMAtriptan succinate 50 MG TAB PO STA (14:19)
[2024-05-05 19:18] LABS: Basophils # (auto) 0.02 K/uL (0.00-0.20); Basophils % (auto) 0.4 %; Eosinophils # (auto) 0.06 K/uL (0.00-0.50); Eosinophils % (auto) 1.1 %; Hematocrit (blood only) 29.9 % (37.0-47.0); Hemoglobin 10.4 g/dl (12.0-16.0); Immature Granulocytes # (auto) 0.01 K/uL (0.01-0.20); Immature Granulocytes % (auto) 0.2 %; Lymphocytes # (auto) 1.32 K/uL (1.20-3.40); Mean Corpuscular Hemoglobin 30.4 pg (25.0-34.0); Mean Corpuscular Hgb Conc 34.8 g/dL (32.0-36.0); Mean Corpuscular Volume 87.4 fL (80.0-100.0); Mean Platelet Volume 10.5 fL (9.4-12.4); Monocytes # (auto) 0.34 K/uL (0.11-0.59); Monocytes % (auto) 6.2 %; Neutrophils # (auto) 3.74 K/uL (1.40-6.50); Neutrophils % (auto) 68.1 %; Platelet Count 90 K/uL (130-400); RDW Coefficient of Variation 11.9 % (11.5-14.5); RDW Standard Deviation 38.2 fL (36.4-46.3); Red Blood Count 3.42 M/uL (4.20-5.40); White Blood Count 5.49 K/ul (4.8-10.8)
[2024-05-05 19:33] LABS: BUN Creatinine Ratio 23.2 (10-20); Calcium 9.1 mg/dl (8.6-10.3); Creatinine Clr Calc Pharmacy 45.9 ml/min; Est GFR (African American) 58.5 ml/min; Est GFR (Non-African American) 50.4 ml/min; Potassium 4.4 mmol/L (3.5-5.1)
[2024-05-05] MEDS: KETOROLAC TROMETHAMINE 15 MG/ML VIAL IV ONE (22:33)
[2024-05-05] MEDS: hydrOXYzine HCl 10 MG TAB PO PRN (22:40)
[2024-05-06] MEDS: SUMAtriptan succinate 50 MG TAB PO STA (00:05)
[2024-05-06 08:45] LABS: Basophils # (auto) 0.02 K/uL (0.00-0.20); Basophils % (auto) 0.4 %; Eosinophils # (auto) 0.07 K/uL (0.00-0.50); Eosinophils % (auto) 1.4 %; Immature Granulocytes # (auto) 0.02 K/uL (0.01-0.20); Immature Granulocytes % (auto) 0.4 %; Lymphocytes # (auto) 0.63 K/uL (1.20-3.40); Lymphocytes % (auto) 12.3 %; Mean Corpuscular Hemoglobin 29.6 pg (25.0-34.0); Mean Corpuscular Hgb Conc 33.3 g/dL (32.0-36.0); Mean Corpuscular Volume 88.9 fL (80.0-100.0); Mean Platelet Volume 9.9 fL (9.4-12.4); Monocytes # (auto) 0.27 K/uL (0.11-0.59); Monocytes % (auto) 5.3 %; Neutrophils # (auto) 4.11 K/uL (1.40-6.50); Neutrophils % (auto) 80.2 %; Platelet Count 84 K/uL (130-400); RDW Standard Deviation 38.2 fL (36.4-46.3); Red Blood Count 3.71 M/uL (4.20-5.40); White Blood Count 5.12 K/ul (4.8-10.8)
--- NOTE | 2024-05-06 14:14 | Pharmacy Report ---
Pharmacy Glycemic Short Note 2 - Date of Service May 06, 2024 - Glycemic Short BSG Results (Last 24 hours): 05/05/24 05/05/24 05/05/24 17:09 18:48 20:55 Glucose 131 H POC Glucose 90 144 H 05/06/24 05/06/24 05/06/24 08:23 12:33 13:00 Glucose POC Glucose 99 167 H 223 H OUTPATIENT ANTIDIABETIC REGIMEN: * Lantus 20 units SQ BID * Trulicity 4.5mg SQ weekly * HbA1c 6.6% (02/22/24) 9.0% (05/03/24) ASSESSMENT: 05/06: * Good glycemic control yesterday with the exception of lunchtime hyperglycemia (30 units Lantus + 25 units Novolog) * Fasting BSG below goal. Will lower Lantus dose per scale. * Lunch BSG > 200 mg/dL on multiple occasions. Will tighten carb coverage with breakfast only in an attempt to prevent BSG spike at lunch. Looser carb coverage/correction factor will be used with other meals. 05/05 * BSGs acceptable over last 24 hrs * 63 units SQ insulin given over last 24 hours while tolerating a diet * Fasting BSG at goal this AM, FBS 112, with 35 units basal on board - will continue a similar dose * Post-prandial BSGs at goal yesterday w/ exception of HS BSG which was elevated secondary to pt eating just prior to BSG being checked. Will continue current Novolog CR/CF 05/03 * Viky is a 69 YOF presenting with hyperglycemia, headaches, and hypertension with a history of T2DM. Pharmacy has been consulted to assist with glycemic management while inpatient. * Cause of hyperglycemia unclear at this time, appears to not be well controlled recently by increase in HbA1c. BSGs downtrended overnight with fluids and insulin administration. * Lantus started at home dose, Novolog initiated at a weight based stress of 2. Will add a Lantus scale based on BSGs between a weight based stress of 2 and 3. PLAN FOR INPATIENT GLYCEMIC CONTROL: * Hold outpatient oral diabetes medications * Basal insulin * Lantus 5-10-15 units SQ BID (see eMAR for additional details) * Bolus insulin * NovoLog per scale ACHS or Q6hrs while NPO * Goal Range: Low 110 mg/dL - High 140 mg/dL Breakfast: * Correction Factor: 30 mg/dL/unit * Nutritional / Prandial insulin per carb ratio of 1 unit per 6 grams CHO consumed Lunch/dinner/HS: * Correction Factor: 35 mg/dL/unit * Nutritional / Prandial insulin per carb ratio of 1 unit per 8 grams CHO consumed
--- NOTE | 2024-05-06 15:12 | Hospitalist Progress Note ---
Date of Service May 06, 2024 Assessment & Plan (1) Hyperglycemia: Plan: per admitting service notes with addendum: 69-year-old female with past medical history significant for diabetic gastroparesis, type 2 diabetes, diabetic retinopathy, hyperlipidemia, h ypothyroidism, diabetic polyneuropathy, obstructive sleep apnea on CPAP, cirrhosis of liver with ascites, portal hypertension, history of CVA, hypertension, grade 1 diastolic dysfunction, female stress incontinence, generalized osteoarthritis, unspecified dementia, thrombocytopenia, major depression, anxiety, intention tremor, history of pulmonary embolism who lives with her and ambulates with a walker when she is outside of the house comes in because of hyperglycemia. Patient states when she woke up today sugars were running in 300s. She was having severe headaches. Nausea. And the blood pressure was running high. Denies any fevers. Has some dizziness. Vision is okay. No runny nose or sore throat or cough. Appetite is not great. Complains of heaviness in the chest. And dyspnea on exertion. No abdominal pain. Normal bowel and bladder movements. Symptoms ankles swell up.She is having on and off nosebleeds last bleed was few days back. Currently resting comfortably and hemodynamics are okay. Hyperglycemia Uncontrolled diabetes type 2 Blood glucose 572 on presentation A1c 9.0 Placed on insulin glargine and NovoLog Blood glucose improved certified lactation educator consulted Advised to use sliding scale more consistently at home to prevent hyperglycemia Hypertension Elevated on presentation Likely secondary to hyperglycemia Resumed home medications including nifedipine, Coreg, lisinopril, spironolactone Blood pressure improved Chest pain, atypical Troponin x 2 negative EKG no signs of acute ischemia or infarct Echocardiogram No wall motion abnormalities Cardiology consulted given risk factors for CAD Evaluated by cardiology service, does not recommend any further cardiac testing at this point Headache left sided Possible migraine Brain MRI: no acute process Trial of sumatriptan- Patient reports resolution of headache after 2 doses As needed [place] Generalized weakness PT OT evaluation performed, recommending to transition to acute rehab Case management on board History of CVA On Plavix and statin History of liver cirrhosis Monitor for volume overload Thrombocytopenia Platelets 112--> 88 Mostly from cirrhosis Hyponatremia Sodium 136 Mostly pseudohyponatremia d/c IV fluids Obstructive sleep apnea CPAP nightly Hypothyroidism On Synthyroid Hyperlipidemia On statin Depression On bupropion Diabetic polyneuropathy On gabapentin DVT prophylaxis SCDs and heparin subcu Monitor platelets Disposition Lives at home PT OT recommending to transition to acute rehab Case management on board Full code Admission and Anticipated Discharge Date Admission Date: May 02, 2024 Subjective Follow-up for hyperglycemia, etc. Seen sitting up in bed, comfortable, not in distress States she feels fine overall Does report leg weakness and shaking during ambulation in the hallways with physical therapy No chest pain, dizziness, shortness of breath Headache resolved No other new symptoms Review of Systems Review of Systems: all noted and negative except for above Physical Exam Physical Exam: General- oriented x 3, not in distress, speaks in sentences with no effort or accessory muscle use Eyes- anicteric Neck- no JVD Lungs- clear breath sounds bilaterally, no rales/wheezes Heart- normal rate, regular rhythm; no murmurs Abdomen- normal bowel sounds, nondistended, soft, nontender Extremities- no pretibial edema, no calf tenderness Neuro- alert, oriented x 3; no gross focal neurologic deficits Skin- warm & dry Results & Data Results & Data Vital Signs (Past 12 Hours) Vital Signs Temp Pulse Pulse Resp BP Pulse Ox O2 Del Method 05/06/24 14:42 83 05/06/24 11:45 36.7 C 73 16 139/66 95 Room Air 05/06/24 08:20 62 05/06/24 07:56 36.6 C 70 16 157/71 H 100 Room Air 05/06/24 07:07 Room Air 05/06/24 03:41 36.5 C 60 18 153/77 H 95 Room Air all noted and reviewed including below
[2024-05-06] MEDS: INSULIN ASPART PER UNIT CHARGE SC SCH (18:16)
[2024-05-07] MEDS: INSULIN ASPART PER UNIT CHARGE SC SCH (09:22)
--- NOTE | 2024-05-07 09:49 | Hospitalist Progress Note ---
Date of Service May 07, 2024 Assessment & Plan (1) Hyperglycemia: Plan: 69-year-old female with past medical history significant for diabetic gastroparesis, type 2 diabetes, diabetic retinopathy, hyperlipidemia, hypothyroidism, diabetic polyneuropathy, obstructive sleep apnea on CPAP, cirrhosis of liver with ascites, portal hypertension, history of CVA, hypertension, grade 1 diastolic dysfunction, female stress incontinence, generalized osteoarthritis, unspecified dementia, thrombocytopenia, major depression, anxiety, intention tremor, history of pulmonary embolism who lives with her and ambulates with a walker when she is outside of the house comes in because of hyperglycemia. Reported blood glucose running in 300s, headache, chest heaviness, poor appetite and some intermittent nose bleeds on admission Hyperglycemia Uncontrolled diabetes type 2 Blood glucose 572 on presentation A1c 9.0 this admission (was 6.6 two months ago) Reports she was on lantus 15U BID at home and Novolog 15U TID AC Stated she was on trulicity but stopped a while ago Currently on Insulin glargine, ISS Provided DM education Based on my discussion with patient, I suspect poor medication adherence/diet mgt I reviewed outpatient MTM DM from 04/03/24 on [facility]. Patient's Dexcom showed poor home blood glucose control. Patient had been taking 10U Novolog TID at the time They also had her on additional correction for BG >140 (4+1 for every 45U above 140) Based on glycemic trend and inpatient insulin requirement, I discussed with glycemic pharm. Plan to dc on lantus 15U BID and revert to 10U TID AC novolog. Will advise to assist with med mgt at home for adherence Hypertension Elevated on presentation BP better controlled once home meds including nifedipine, Coreg, lisinopril, spironolactone were resumed Chest pain, atypical Troponin x 2 negative EKG no signs of acute ischemia or infarct Echocardiogram No wall motion abnormalities Cardiology consulted given risk factors for CAD Evaluated by cardiology service, does not recommend any further cardiac testing at this point Headache left sided Possible migraine Brain MRI: no acute process Trial of sumatriptan- Patient reports resolution of headache after 2 doses Generalized weakness PT OT evaluation performed, recommending to transition to acute rehab Case management working on placement History of CVA On Plavix and statin History of liver cirrhosis Monitor for volume overload Thrombocytopenia Platelets 112--> 84 Likely from cirrhosis Hyponatremia Sodium 136 Mostly pseudohyponatremia Obstructive sleep apnea CPAP nightly Hypothyroidism On Synthyroid Hyperlipidemia On statin Depression On bupropion Diabetic polyneuropathy On gabapentin DVT prophylaxis SCDs and heparin subcu Monitor platelets Check CBC, BMP today Full code I spent a total of 50 minutes coordinating, documenting and providing care for this patient excluding time spent in performance of separately billed services Admission and Anticipated Discharge Date Admission Date: May 02, 2024 Subjective Patient seen and examined Reports feeling very weak today Reported an episode of vomiting last night Denied any nausea, abd pain, diarrhea today Denied chest pain, cough, SOB Denied fever, chill Physical Exam Constitutional: + well hydrated; no acute distress Eyes: PERRL, conjunctivae normal, anicteric sclerae ENMT: external ear and nose normal, oropharynx normal Respiratory: normal respiratory effort, lungs clear to auscultation Cardiovascular: Rate/Rhythm: regular rate and regular rhythm Gastrointestinal (Abdomen): normal bowel sounds, soft, nontender, no hepatosplenomegaly Musculoskeletal: No pedal edema Neurologic: PERRL, EOMI, accommodation nl, no face palsy, no dysarthria Psychiatric: A+Ox3, euthymic affect Results & Data Results & Data Vital Signs (Past 12 Hours) Vital Signs Temp Pulse Pulse Resp BP BP Pulse Ox 05/07/24 08:35 81 157/65 H 05/07/24 07:34 37.9 C H 75 18 172/73 H 91 05/07/24 07:18 74 05/07/24 02:48 36.8 C 69 18 149/77 H 93 05/06/24 23:15 37.7 C H 75 20 126/63 94 O2 Del Method 05/07/24 08:35 05/07/24 07:34 Room Air 05/07/24 07:18 05/07/24 02:48 Room Air 05/06/24 23:15 Room Air Laboratory Results Abnormal lab results 05/06/24 05/06/24 05/06/24 Range/Units 12:33 13:00 17:04 POC Glucose 167 H 223 H 111 H (70-99) mg/dl 05/06/24 05/07/24 Range/Units 20:08 08:16 POC Glucose 238 H 138 H (70-99) mg/dl
[2024-05-07 10:54] LABS: Hematocrit (blood only) 27.8 % (37.0-47.0); Hemoglobin 9.8 g/dl (12.0-16.0); Mean Corpuscular Hemoglobin 30.7 pg (25.0-34.0); Mean Corpuscular Hgb Conc 35.3 g/dL (32.0-36.0); Mean Corpuscular Volume 87.1 fL (80.0-100.0); Mean Platelet Volume 10.6 fL (9.4-12.4); Platelet Count 65 K/uL (130-400); RDW Coefficient of Variation 11.9 % (11.5-14.5); RDW Standard Deviation 38.4 fL (36.4-46.3); Red Blood Count 3.19 M/uL (4.20-5.40); White Blood Count 5.06 K/ul (4.8-10.8)
[2024-05-07 20:05] LABS: BUN Creatinine Ratio 26.5 (10-20); Calcium 8.3 mg/dl (8.6-10.3); Est GFR (African American) 55.4 ml/min; Est GFR (Non-African American) 47.8 ml/min
[2024-05-08 07:41] LABS: Hematocrit (blood only) 28.9 % (37.0-47.0); Hemoglobin 9.9 g/dl (12.0-16.0); Mean Corpuscular Hemoglobin 30.1 pg (25.0-34.0); Mean Corpuscular Hgb Conc 34.3 g/dL (32.0-36.0); Mean Corpuscular Volume 87.8 fL (80.0-100.0); Mean Platelet Volume 10.8 fL (9.4-12.4); Platelet Count 75 K/uL (130-400); RDW Standard Deviation 38.8 fL (36.4-46.3); Red Blood Count 3.29 M/uL (4.20-5.40); White Blood Count 5.63 K/ul (4.8-10.8)
[2024-05-08 10:51] LABS: Calcium 8.7 mg/dl (8.6-10.3); Magnesium 2.1 mg/dl (1.7-2.4); Potassium 4.2 mmol/L (3.5-5.1)
[2024-05-08 10:57] LABS: BUN Creatinine Ratio 31.1 (10-20); Est GFR (African American) 76.1 ml/min; Est GFR (Non-African American) 65.7 ml/min; Phosphorus 3.4 mg/dl (2.5-4.9)
--- NOTE | 2024-05-08 13:15 | Pharmacy Report ---
Pharmacy Glycemic Short Note 2 - Date of Service May 08, 2024 - Glycemic Short BSG Results (Last 24 hours): 05/07/24 05/07/24 05/07/24 16:42 19:20 20:35 Glucose 180 H POC Glucose 76 215 H 05/08/24 05/08/24 05/08/24 07:02 08:03 12:09 Glucose 105 H POC Glucose 104 H 161 H OUTPATIENT ANTIDIABETIC REGIMEN: * Lantus 20 units SQ BID * Trulicity 4.5mg SQ weekly * HbA1c 6.6% (02/22/24) 9.0% (05/03/24) ASSESSMENT: 05/08: * Blood sugars improving with different CF/CR at breakfast vs rest of the day. Continue. * Fasting at goal, patient on Lantus 20 units BID at home, but this would be too high of a dose as inpatient at this time, continue scale. 05/06: * Good glycemic control yesterday with the exception of lunchtime hyperglycemia (30 units Lantus + 25 units Novolog) * Fasting BSG below goal. Will lower Lantus dose per scale. * Lunch BSG > 200 mg/dL on multiple occasions. Will tighten carb coverage with breakfast only in an attempt to prevent BSG spike at lunch. Looser carb cove rage/correction factor will be used with other meals. 05/05 * BSGs acceptable over last 24 hrs * 63 units SQ insulin given over last 24 hours while tolerating a diet * Fasting BSG at goal this AM, FBS 112, with 35 units basal on board - will continue a similar dose * Post-prandial BSGs at goal yesterday w/ exception of HS BSG which was elevated secondary to pt eating just prior to BSG being checked. Will continue current Novolog CR/CF 05/03 * Viky is a 69 YOF presenting with hyperglycemia, headaches, and hypertension with a history of T2DM. Pharmacy has been consulted to assist with glycemic management while inpatient. * Cause of hyperglycemia unclear at this time, appears to not be well controlled recently by increase in HbA1c. BSGs downtrended overnight with fluids and insulin administration. * Lantus started at home dose, Novolog initiated at a weight based stress of 2. Will add a Lantus scale based on BSGs between a weight based stress of 2 and 3. PLAN FOR INPATIENT GLYCEMIC CONTROL: * Hold outpatient diabetes medications * Basal insulin * Lantus 5-10-15 units SQ BID (see eMAR for additional details) * Bolus insulin * NovoLog per scale ACHS or Q6hrs while NPO * Goal Range: Low 110 mg/dL - High 140 mg/dL Breakfast: * Correction Factor: 30 mg/dL/unit * Nutritional / Prandial insulin per carb ratio of 1 unit per 6 grams CHO consumed Lunch/dinner/HS: * Correction Factor: 35 mg/dL/unit * Nutritional / Prandial insulin per carb ratio of 1 unit per 8 grams CHO consumed
--- NOTE | 2024-05-08 13:37 | Hospitalist Progress Note ---
Date of Service May 08, 2024 Assessment & Plan (1) Hyperglycemia: Plan: 69-year-old female with past medical history significant for diabetic gastroparesis, type 2 diabetes, diabetic retinopathy, hyperlipidemia, hypothyroidism, diabetic polyneuropathy, obstructive sleep apnea on CPAP, cirrhosis of liver with ascites, portal hypertension, history of CVA, hypertension, grade 1 diastolic dysfunction, female stress incontinence, generalized osteoarthritis, unspecified dementia, thrombocytopenia, major depression, anxiety, intention tremor, history of pulmonary embolism who lives with her and ambulates with a walker when she is outside of the house comes in because of hyperglycemia. Reported blood glucose running in 300s, headache, chest heaviness, poor appetite and some intermittent nose bleeds on admission Hyperglycemia Uncontrolled diabetes type 2 Blood glucose 572 on presentation A1c 9.0 this admission (was 6.6 two months ago) Reports she was on lantus 15U BID at home and Novolog 15U TID AC Stated she was on trulicity but stopped a while ago Currently on Insulin glargine, ISS Provided DM education On 05/07/24, I reviewed outpatient MTM DM from 04/03/24 on [facility]. Patient's Dexcom showed poor home blood glucose control. Patient had been taking 10U Novolog TID at the time They also had her on additional correction for BG >140 (4+1 for every 45U above 140) Concern for poor med adherence likely related to cognitive impairment per patient report. Will encourage to be involved with med administration Based on current insulin requirement, will likely do lantus 15U BID and novolog sliding scale Hypertension Elevated on presentation BP better controlled once home meds including nifedipine, Coreg, lisinopril, spironolactone were resumed Chest pain, atypical Troponin x 2 negative EKG no signs of acute ischemia or infarct Echocardiogram No wall motion abnormalities Cardiology consulted given risk factors for CAD Evaluated by cardiology service, does not recommend any further cardiac testing at this point Headache left sided Possible migraine Brain MRI: no acute process Generalized weakness PT OT evaluation performed, recommending to transition to acute rehab Case management working on placement History of CVA On Plavix and statin History of liver cirrhosis Monitor for volume overload Thrombocytopenia Platelets 112--> 75 Likely from cirrhosis Hyponatremia Sodium 136 Mostly pseudohyponatremia Obstructive sleep apnea CPAP nightly Hypothyroidism On Synthyroid Hyperlipidemia On statin Depression On bupropion Diabetic polyneuropathy On gabapentin DVT prophylaxis SCDs and heparin subcu Monitor platelets Full code I spent a total of 40 minutes coordinating, documenting and providing care for this patient excluding time spent in performance of separately billed services Admission and Anticipated Discharge Date Admission Date: May 02, 2024 Subjective Patient seen and examined Reports generalized weakness Denied any nausea, vomiting, abd pain, diarrhea Denied chest pain, cough, SOB Denied fever, chill Physical Exam Constitutional: + well hydrated; no acute distress Eyes: PERRL, conjunctivae normal, anicteric sclerae ENMT: external ear and nose normal, oropharynx normal Respiratory: normal respiratory effort, lungs clear to auscultation Cardiovascular: Rate/Rhythm: regular rate and regular rhythm Gastrointestinal (Abdomen): normal bowel sounds, soft, nontender, no hepatosplenomegaly Musculoskeletal: No pedal edema Neurologic: PERRL, EOMI, accommodation nl, no face palsy, no dysarthria Psychiatric: A+Ox3, euthymic affect Results & Data Results & Data Vital Signs (Past 12 Hours) Vital Signs Temp Pulse Pulse Resp BP BP Pulse Ox 05/08/24 11:18 36.6 C 62 16 115/52 L 94 05/08/24 08:32 78 05/08/24 07:48 37.1 C 53 L 16 119/68 97 05/08/24 07:26 05/08/24 02:30 37.3 C 72 16 121/84 93 O2 Del Method 05/08/24 11:18 Room Air 05/08/24 08:32 05/08/24 07:48 Room Air 05/08/24 07:26 Room Air 05/08/24 02:30 Room Air Laboratory Results Abnormal lab results 05/07/24 05/07/24 05/08/24 Range/Units 19:20 20:35 07:02 RBC 3.29 L (4.20-5.40) M/uL Hgb 9.9 L (12.0-16.0) g/dl Hct 28.9 L (37.0-47.0) % Plt Count 75 L (130-400) K/uL Sodium 133 L (136-145) mmol/L BUN 31 H 28 H (6-23) mg/dl BUN/Creatinine Ratio 26.5 H 31.1 H (10-20) Glucose 180 H 105 H (70-99(Fasting)) mg/dl POC Glucose 215 H (70-99) mg/dl Calcium 8.3 L (8.6-10.3) mg/dl 05/08/24 05/08/24 Range/Units 08:03 12:09 RBC (4.20-5.40) M/uL Hgb (12.0-16.0) g/dl Hct (37.0-47.0) % Plt Count (130-400) K/uL Sodium (136-145) mmol/L BUN (6-23) mg/dl BUN/Creatinine Ratio (10-20) Glucose (70-99(Fasting)) mg/dl POC Glucose 104 H 161 H (70-99) mg/dl Calcium (8.6-10.3) mg/dl
--- NOTE | 2024-05-09 09:35 | Hospitalist Progress Note ---
Date of Service May 09, 2024 Assessment & Plan (1) Hyperglycemia: Plan: 69-year-old female with past medical history significant for diabetic gastroparesis, type 2 diabetes, diabetic retinopathy, hyperlipidemia, hypothyroidism, diabetic polyneuropathy, obstructive sleep apnea on CPAP, cirrhosis of liver with ascites, portal hypertension, history of CVA, hypertension, grade 1 diastolic dysfunction, female stress incontinence, generalized osteoarthritis, unspecified dementia, thrombocytopenia, major depression, anxiety, intention tremor, history of pulmonary embolism who lives with her and ambulates with a walker when she is outside of the house comes in because of hyperglycemia. Reported blood glucose running in 300s, headache, chest heaviness, poor appetite and some intermittent nose bleeds on admission Hyperglycemia Uncontrolled diabetes type 2 Blood glucose 572 on presentation A1c 9.0 this admission (was 6.6 two months ago) Reports she was on lantus 15U BID at home and Novolog 15U TID AC Stated she was on trulicity but stopped a while ago Currently on Insulin glargine, ISS Provided DM education On 05/07/24, I reviewed outpatient MTM DM from 04/03/24 on [facility]. Patient's Dexcom showed poor home blood glucose control. Patient had been taking 10U Novolog TID at the time They also had her on additional correction for BG >140 (4+1 for every 45U above 140) Concern for poor med adherence likely related to cognitive impairment per patient report. Encourage to be involved with med administration Based on current insulin requirement, will likely do lantus 15U BID and novolog 5U TID AC Hypertension Elevated on presentation BP better controlled once home meds including nifedipine, Coreg, lisinopril, spironolactone were resumed Chest pain, atypical Troponin x 2 negative EKG no signs of acute ischemia or infarct Echocardiogram No wall motion abnormalities Cardiology consulted given risk factors for CAD Evaluated by cardiology service, does not recommend any further cardiac testing at this point Headache left sided Possible migraine Brain MRI: no acute process Generalized weakness PT OT evaluation performed, recommending to transition to acute rehab Case management working on placement History of CVA On Plavix and statin History of liver cirrhosis Monitor for volume overload Thrombocytopenia Platelets 112--> 75 Likely from cirrhosis Hyponatremia Sodium 136 Mostly pseudohyponatremia Obstructive sleep apnea CPAP nightly Hypothyroidism On Synthyroid Hyperlipidemia On statin Depression On bupropion Diabetic polyneuropathy On gabapentin DVT prophylaxis SCDs and heparin subcu Awaiting placement Calls to to update him were not connecting. Will try again later Full code I spent a total of 35 minutes coordinating, documenting and providing care for this patient excluding time spent in performance of separately billed services Admission and Anticipated Discharge Date Admission Date: May 02, 2024 Subjective Patient seen and examined Reports feeling stronger today Denied any nausea, vomiting, abd pain, diarrhea Denied chest pain, cough, SOB Denied fever, chill Physical Exam Constitutional: + well hydrated; no acute distress Eyes: PERRL, conjunctivae normal, anicteric sclerae ENMT: external ear and nose normal, oropharynx normal Respiratory: normal respiratory effort, lungs clear to auscultation Cardiovascular: Rate/Rhythm: regular rate and regular rhythm Gastrointestinal (Abdomen): normal bowel sounds, soft, nontender, no hepato splenomegaly Musculoskeletal: No pedal edema Neurologic: PERRL, EOMI, accommodation nl, no face palsy, no dysarthria Psychiatric: A+Ox3, euthymic affect Results & Data Results & Data Vital Signs (Past 12 Hours) Vital Signs Temp Pulse Pulse Resp BP BP Pulse Ox 05/09/24 07:44 36.4 C L 58 L 18 158/71 H 99 05/09/24 07:42 58 L 05/09/24 04:06 36.7 C 65 16 120/65 96 05/08/24 23:09 36.8 C 68 16 138/66 93 05/08/24 21:50 70 O2 Del Method 05/09/24 07:44 Room Air 05/09/24 07:42 05/09/24 04:06 Room Air 05/08/24 23:09 Room Air 05/08/24 21:50 Laboratory Results Abnormal lab results 05/08/24 05/08/24 05/08/24 Range/Units 07:02 12:09 17:13 BUN 28 H (6-23) mg/dl BUN/Creatinine Ratio 31.1 H (10-20) Glucose 105 H (70-99(Fasting)) mg/dl POC Glucose 161 H 124 H (70-99) mg/dl 05/08/24 Range/Units 20:14 BUN (6-23) mg/dl BUN/Creatinine Ratio (10-20) Glucose (70-99(Fasting)) mg/dl POC Glucose 203 H (70-99) mg/dl
[2024-05-10 08:32] VITALS: PULSE 55; RESP 15; TEMP 97.5; O2SAT 97
--- NOTE | 2024-05-10 11:20 | Discharge Summary ---
Date of Service May 10, 2024 Admission HPI Per Admitting Provider 69-year-old female with past medical history significant for diabetic gastroparesis, type 2 diabetes, diabetic retinopathy, hyperlipidemia, hypothyroidism, diabetic polyneuropathy, obstructive sleep apnea on CPAP, c irrhosis of liver with ascites, portal hypertension, history of CVA, hypertension, grade 1 diastolic dysfunction, female stress incontinence, generalized osteoarthritis, unspecified dementia, thrombocytopenia, major depression, anxiety, intention tremor, history of pulmonary embolism who lives with her and ambulates with a walker when she is outside of the house comes in because of hyperglycemia. Patient states when she woke up today sugars were running in 300s. She was having severe headaches. Nausea. And the blood pressure was running high. Denies any fevers. Has some dizziness. Vision is okay. No runny nose or sore throat or cough. Appetite is not great. Complains of heaviness in the chest. And dyspnea on exertion. No abdominal pain. Normal bowel and bladder movements. Symptoms ankles swell up.She is having on and off nosebleeds last bleed was few days back. Currently resting comfortably and hemodynamics are okay. Past medical history. As mentioned above Past surgical history. Small bowel repair. adhesions removed from stomach. Biopsy of the left breast mass benign. Cataract surgery complex. Colonoscopy. Dilatation curettage. Left knee arthroscopy. Ligation of oviducts. Partial hysterectomy. Removal of both ovaries for tumor. Total abdominal hysterectomy with removal of tubes. Social history. . No smoking. Alcohol rarely. No drug use. Family history. Father had lung cancer. Diabetes. Sister had stomach cancer. Aunt had diabetes. Admission Exam Per Admitting Provider General- Not in acute distress Head- atraumatic Eyes- PERRL. ENT- oropharynx clear Neck- supple, no JVD. Lungs- clear to auscultation no wheezing or crackles Heart- regular rate and rhythm; no murmur, no gallop. Abdomen- normal bowel sounds, soft, nontender, no distension. Extremities- trace pretibial edema, no erythema seen. Neuro- alert, oriented PERRL, no facial palsy; no dysarthria; moves extremities Principal Diagnosis Poorly controlled diabetes Generalized weakness Hypertension Discharge Exam Constitutional + well hydrated; no acute distress Eyes PERRL, conjunctivae normal, anicteric sclerae ENMT external ear and nose normal, oropharynx normal Respiratory normal respiratory effort, lungs clear to auscultation Cardiovascular Rate/Rhythm: regular rate and regular rhythm Gastrointestinal (Abdomen) normal bowel sounds, soft, nontender, no hepatosplenomegaly Musculoskeletal No pedal edema Neurologic PERRL, EOMI, accommodation nl, no face palsy, no dysarthria Psychiatric A+Ox3, euthymic affect Discharge Data Allergies Allergy/AdvReac Type Severity Reaction Status Date / Time adhesive Allergy Intermediate RASH Verified 02/22/24 19:12 Iodinated Contrast Media Allergy Intermediate burning Verified 02/22/24 19:12 and aching in veins latex Allergy Intermediate RASH Verified 02/22/24 19:12 Penicillins Allergy Intermediate n/v, rash Verified 02/22/24 19:12 Anesthetics - Amide Type - AdvReac Intermediate Vomiting Verified 02/22/24 19:12 Select A [Anesthetics - Amide Type] Anesthetics - Juju Type- AdvReac Intermediate Vomiting Verified 02/22/24 19:12 Parabens hepatitis B virus vaccine AdvReac Intermediate CHEST Verified 02/22/24 19:12 TIGHTNESS WITH 2ND DOSE. ketorolac AdvReac Intermediate ITCHING. Verified 02/22/24 19:12 tromethamine AdvReac Intermediate ITCHING. Verified 02/22/24 19:12 aspirin AdvReac Unknown CONTRAINDICATED---currently Verified 02/22/24 19:12 with gastric ulcer, per pt Consultations 05/02/24 20:01 ED Decision to Admit Stat 05/03/24 15:32 Consult Cardiology Routine Ordered Studies 05/02/24 18:13 CT head/brain wo con Stat 05/04/24 08:16 MRI Brain [MR brain wo con] Routine Diabetes Follow up Diabetes Follow-up Needed for HgbA1c >9% Hospital Course (1) Hyperglycemia: 69-year-old female with past medical history significant for diabetic g astroparesis, type 2 diabetes, diabetic retinopathy, hyperlipidemia, hypothyroidism, diabetic polyneuropathy, obstructive sleep apnea on CPAP, cirrhosis of liver with ascites, portal hypertension, history of CVA, hypertension, grade 1 diastolic dysfunction, female stress incontinence, generalized osteoarthritis, unspecified dementia, thrombocytopenia, major depression, anxiety, intention tremor, history of pulmonary embolism who lives with her and ambulates with a walker when she is outside of the house comes in because of hyperglycemia. Reported blood glucose running in 300s, headache, chest heaviness, poor appetite and some intermittent nose bleeds on admission Hyperglycemia Uncontrolled diabetes type 2 Blood glucose 572 on presentation A1c 9.0 this admission (was 6.6 two months ago) Reports she was on lantus 15U BID at home and Novolog 15U TID AC Stated she was on trulicity but stopped a while ago On 05/07/24, I reviewed outpatient [facility] from 04/03/24 on [facility]. Patient's Dexcom showed poor home blood glucose control. Patient had been taking 10U Novolog TID at the time They also had her on additional correction for BG >140 (4+1 for every 45U above 140) Concern for poor med adherence likely related to cognitive impairment per patient report. Patient got on her phone. Updated on findings. Encouraged to assist patient with medication/insulin at home Patient has not been requiring as much insulin in the hospital as at home. Likely due to poor med adherence +/- poor dietary adherence Provided DM education Based on current insulin requirement, patient was discharged on lantus 15U BID and novolog 5U TID AC Patient to monitor BG at home and dose can be adjusted as instructed or per [facility] clinic Hypertension Elevated on presentation BP better controlled once home meds including nifedipine, Coreg, lisinopril, spironolactone were resumed Chest pain, atypical Troponin x 2 negative EKG no signs of acute ischemia or infarct Echocardiogram No wall motion abnormalities Cardiology consulted given risk factors for CAD Evaluated by cardiology service, does not recommend any further cardiac testing at this point Headache left sided Possible migraine Brain MRI: no acute process Generalized weakness PT OT evaluated. Rehab was initially recommended However, functional status improved with PT/OT inpt while awaiting placement Patient discharged home History of CVA On Plavix and statin History of liver cirrhosis Thrombocytopenia Likely from cirrhosis Obstructive sleep apnea CPAP nightly Hypothyroidism On Synthyroid Hyperlipidemia On statin Depression On bupropion Diabetic polyneuropathy On gabapentin Total Time Total Time Spent Total Time Spent (In Minutes): 35 Total Time Includes: Examination of the Patient, Discharge Planning and Medication Reconciliation Discharge Plan Discharge Items Patient Disposition: Home - Self-Care Reason For Visit: HYPERGLYCEMIA, ELEVATED BP, chest heaviness Discharge Diagnosis: Poorly controlled diabetes Generalized weakness Hypertension Activity: Resume your previous activity Non-emergency contact: Primary Care Provider Call non-emergency contact if: you have any medication questions and your sy mptoms worsen Follow-up/Referrals: Adria Hilliard MD [Primary Care Provider] - 05/13/24 10:20 am (Date & Time 05/13/2024 10:20 AM Provider Adria Hilliard MD [facility] ) Diet: Carb Consistent or DM2, Heart Healthy and Low Sodium (2gm) Addtl Attending Provider Instructions: Mrs Fine. You were hospitalized and managed for the above diagnoses. Please continue your insulin glargine 15Units twice a day Your insulin novolog was reduced to 5 Units with meals for now. If Blood glucose is poorly controlled, you may increase dose of meal time insulin as we discussed or as directed by Diabetes [facility] clinic. Please ensure adherence to diabetic diet. Please monitor your blood sugar as we discussed. Please ensure followup with your Primary Doctor and Diabetes clinic. Pending Studies at Discharge: No Stand-Alone Forms: [facility] Scandid, Smoking Cessation Medications and DC Order Prescriptions: Continued levothyroxine 137 mcg tablet 137 mcg PO DAILY sennosides-docusate sodium [Senexon-S] 8.6-50 mg tablet 1 tab PO DAILY sertraline 100 mg tablet 200 mg PO DAILY nifedipine 30 mg tablet extended release 30 mg PO DAILY clopidogrel 75 mg tablet 75 mg PO DAILY spironolactone 25 mg tablet 25 mg PO DAILY carvedilol 3.125 mg tablet 3.125 mg PO BID bupropion HCl 100 mg tablet 100 mg PO QPM metoclopramide HCl 5 mg tablet 5 mg PO QID PRN (Reason: Nausea And Vomiting) gabapentin 300 mg capsule 300 mg PO TID omeprazole 20 mg capsule,delayed release(DR/EC) 20 mg PO DAILY lisinopril 40 mg tablet 40 mg PO DAILY rosuvastatin 20 mg tablet 20 mg PO DAILY insulin glargine [Lantus Solostar U-100 Insulin] 100 unit/mL (3 mL) insulin pen 15 unit SUBCUT BID bupropion HCl 100 mg Tablet 150 mg PO DAILYBB Changed insulin aspart U-100 [Novolog FlexPen U-100 Insulin] 100 unit/mL (3 mL) insulin pen 5 unit SUBCUT TIDWMEAL Qty: 0 0RF Rx Instructions: Or as directed by Diabetes clinic Discharge Orders: Discharge Order (Routine); Ordered 05/10/24 Ordered By: Vicki Tilley/Other Patient Handouts: High Blood Sugar (Hyperglycemia), Managing Type 2 Diabetes Admission Data Admit Date/Time: 05/02/24 21:17 Attending Provider: Vicki Talley I. Admit Provider: Kamran Doe Primary Care Provider: Adria Hilliard Other Providers: [facility]; Jose Ng; [facility]; Kamran Doe; Alma Palumbo; Shukri Rubio; Bruce Ordoñez; Luke Cook; Padilla See; Adria Beard; Lulú Garcia; Elizabeth Way; Rufina Smith; Alma Dominguez; Shamir Raymundo; Lee Robison; Isamar Vikc; Fariha Call; Preeti Mckeon; Moe Oliver; Bhavesh Liu; Deborah Gerber Other Interventions: Discharge Summary Assessment (RN) Last Done: 05/10/24 13:08
[2024-05-10 13:11] VITALS: BP 111/63
== END 2024-05-10 14:04 | disposition home or self-care (01) | DRG 638 ==
LOC: ED 15:09 → SUATTDRO 21:17 → 2N 21:17

== ENCOUNTER 2024-07-12 12:07 | Inpatient (IN) ==
--- OUTSIDE RECORDS SUMMARY | 2024-07-12 12:13 | External Medical Summary | Summary of Care ---
Author Name Unknown Organization [facility] Address [address] [facility] [place] [address] Phone [phone] Care Team Providers Care Plate Embosser Name Role Phone Adria Hilliard MD Primary Care Provider [phone] Encounter Details Date Type Department Care Team (Late st Contact Info) Description 06/19/2024 Population Health External Data Unspecified Department Allergies Active Allergy Reactions Criticality Noted Date [...] as of this encounter (statuses as of 06/26/2024) Medications Cholecalciferol (VITAMIN D) 1000 units Tablet daily 30 Tab 5 06/04/20 18 Active OneTouch Verio Flex System w/Device Kit Use to test blood sugars 4 times a day. 1 Kit 07/07/20 20 Active CPAP every night at bedtime. Active OneTouch Verio In Vitro Strip (Glucose Blood)Indications: Type 2 diabetes mellitus with hemoglobin A1c goal of less than 8.0% (HCC),Type 2 diabetes mellitus with diabetic nephropathy, without long-term current use of insulin (HCC),Type 2 diabetes mellitus with diabetic nephropathy, with long-term current use of insulin (HCC),Type 2 diabetes mellitus with diabetic polyneuropathy, with long-term current use of insulin ([facility]) Use to check sugars once daily E 11.9 100 Strip 3 06/11/20 Active Ana Slater 33GIndications:Typ e 2 diabetes mellitus with hemoglobin A1c goal of less than 8.0% (HCC),Type 2 diabetes mellitus with diabetic nephropathy, without long-term current use of insulin (HCC),Type 2 diabetes mellitus with diabetic nephropathy, with long-term current use of insulin (HCC),Type 2 diabetes mellitus with diabetic polyneuropathy, with long-term current use of insulin ([facility]) Use to check sugars daily E 11.9 100 Each 1 06/11/20 Active Dexcom G7 Sensor Use as directed. Change every 10 days. Supplied by Home [facility] Delivered Active Lisinopril 40 MG Oral TabletIndications: Type 2 diabetes mellitus with hemoglobin A1c goal of less than 8.0% ([facility]),HTN, goal below 140/90 Take 1 Tablet by mouth in the morning. 100 Tablet 1 10/18/19 24 Active Rosuvastatin Calcium 20 MG Oral Tablet (Crestor)Indicatio ns:Type 2 diabetes mellitus with hemoglobin A1c goal of less than 8.0% ([facility]),Dyslipidemia , goal to be determined TAKE 1 TABLET BY MOUTH EVERY DAY IN THE MORNING 100 Tablet 4 04/24/2024 6:42 AM EDT 10/18/19 24 Active buPROPion HCl 100 MG Oral Tablet (Wellbutrin)Indica tions:Major depressive disorder, recurrent severe without psychotic features (HCC) Take one and one-half tablets (150mg) by mouth in the morning, and one tablet (100mg) at noon. 250 Tablet 1 10/22/2023 8:50 AM EDT 10/18/19 24 Active Levothyroxine Sodium 137 MCG Oral TabletIndications: Hypothyroidism, unspecified type Take 1 Tablet by mouth in the morning. (at least 30 min prior to breakfast or other meds). 100 Tablet 1 06/13/2024 1:37 PM EDT 10/18/19 24 Active Sertraline HCl 100 MG Oral Tablet (Zoloft)Indication s:Major depressive disorder, recurrent severe without psychotic features (HCC) Take 2 Tablets by mouth in the morning. 200 Tablet 1 06/13/2024 1:37 PM EDT 10/18/19 24 Active Spironolactone 25 MG Oral Tablet (Aldactone)Indicat ions:HTN, goal below 140/90 Take 1 Tablet by mouth in the morning. 100 Tablet 1 10/18/19 24 Active Carvedilol 3.125 MG Oral Tablet (Coreg) 1 tablet in the am for one week, if tolerating then increase to 2 tabs in the am for one week 30 Tablet 4 01/15/20 24 Active Omeprazole 20 MG Oral Tablet Delayed Release Disintegrating Take by mouth. Active BD Pen Needle Micro U/F 32G X 6 MM (NOVOFINE 32G PEN NEEDLE)Indications :Type 2 diabetes mellitus with hemoglobin A1c goal of less than 8.0% (HCC) Use daily with lantus and novolog injections 4 times daily 400 Each 4 02/22/2024 4:59 PM EDT 02/22/20 24 Active Ondansetron HCl 4 MG Oral Tablet (Zofran) Take 1 Tablet by mouth every 8 hours as needed for Nausea. Active Sennosides-Docusat e Sodium 8.6-50 MG Oral Tablet (Senokot S) Take 1 Tablet by mouth in the morning. Active Polyethylene Glycol 3350 17 GM Oral Packet (Miralax) Take 1 Packet by mouth in the morning. Active Acetaminophen 325 MG Oral Tablet (Tylenol) TAKE 2 TABLETS ORALLY FOUR TIMES DAILY FOR 30 DAYS 02/25/20 24 Active Metoclopramide HCl 5 MG Oral Tablet (Reglan)Indication s:Gastroparesis take 1 tablet by mouth up to 4 times a day before meals or snack 240 Tablet 3 06/13/2024 1:37 PM EDT 02/28/20 24 Active Gabapentin 100 MG Oral Capsule (Neurontin)Indicat ions:Chronic bilateral low back pain with left-sided sciatica Take 1 Capsule by mouth in the morning and 1 Capsule at noon and 1 Capsule before bedtime. 270 Capsule 3 03/22/2024 1:38 PM EDT 02/28/20 24 Active Rosuvastatin Calcium 20 MG Oral Tablet (Crestor)Indicatio ns:Type 2 diabetes mellitus with hemoglobin A1c goal of less than 8.0% (HCC),Dyslipidemia , goal to be determined TAKE 1 TABLET BY MOUTH EVERY DAY IN THE MORNING 100 Tablet 1 03/31/20 24 Active NIFEdipine ER 30 MG Oral Tablet Extended Release 24 Hour (Adalat CC)Indications:HTN , goal below 140/90 TAKE 1 TABLET BY MOUTH EVERY DAY IN THE MORNING 100 Tablet 1 03/31/20 24 Active Gabapentin 300 MG Oral Capsule (Neurontin)Indicat ions:Chronic nonintractable headache, unspecified headache type Take 1 Capsule by mouth in the morning and 1 Capsule at noon and 1 Capsule before bedtime. 270 Capsule 3 04/03/2024 3:01 PM EDT 04/03/20 24 Active NovoLOG FlexPen 100 UNIT/ML Subcutaneous Solution Pen-injector (insulin aspart)Indications :Type 2 diabetes mellitus with hemoglobin A1c goal of less than 8.0% (HCC),Type 2 diabetes mellitus with diabetic nephropathy, without long-term current use of insulin (HCC),Type 2 diabetes mellitus with diabetic nephropathy, with long-term current use of insulin (HCC),Type 2 diabetes mellitus with diabetic polyneuropathy, with long-term current use of insulin ([facility]) Taking 5 units 3xday with meals 15 mL 3 05/13/20 Active Additional Information Patient taking differently: Inject 6 or more units under the skin before meals following chart provided by [facility] on 06/06/24. Max daily dose of 30 units, Reported on 06/06/2024 Insulin Glargine Solostar 100 UNIT/ML Subcutaneous Solution Pen-injector (Lantus SoloStar)Indicatio ns:Type 2 diabetes mellitus with hemoglobin A1c goal of less than 8.0% ([facility]),Type 2 diabetes mellitus with diabetic nephropathy, without long-term current use of insulin (HCC),Type 2 diabetes mellitus with diabetic nephropathy, with long-term current use of insulin ([facility]),Type 2 diabetes mellitus with diabetic polyneuropathy, with long-term current use of insulin ([facility]) Inject 18 Units under the skin in the morning. 15 mL 4 06/09/2024 10:54 AM EDT 06/06/20 Active Clopidogrel Bisulfate 75 MG Oral Tablet (pLAVix)Indication s:Cerebrovascular disease, arteriosclerotic, post-stroke TAKE 1 TABLET BY MOUTH EVERY DAY IN THE MORNING 100 Tablet 1 06/16/2024 6:54 AM EST 06/15/20 24 Active NIFEdipine ER 30 MG Oral Tablet Extended Release 24 Hour (Adalat CC)Indications:HTN , goal below 140/90 Take 1 Tablet by mouth in the morning. 100 Tablet 1 06/16/2024 6:54 AM EST 06/15/20 24 Active documented as of this encounter (statuses as of 06/26/2024) Active Problems Problem Noted Date Diagnosed Date [...] CPAP 09/12/2018 History of traumatic fracture 03/13/2018 Overview (08/14/2023): Ribs 3 on Right Ribs 3 on Left Lumbar vertebra History of pulmonary embolism 05/25/2017 Female stress incontinence 02/21/2017 Intention tremor 02/21/2017 H/O: hysterectomy 02/06/2017 Hypothyroidism 05/30/2016 HTN, goal below 140/90 10/18/2015 Overview: Per HTN Protocol #27. Type 2 diabetes mellitus wit h hemoglobin A1c goal of less than 8.0% 09/09/2015 Overview (12/09/2015): ICD-10 update of inactive term DM type 2 causing renal disease 01/11/2015 Generalized osteoarthritis 12/30/2013 Vitamin D deficiency 10/02/2010 DYSLIPIDEMIA, GOAL LDL BELOW 100 07/29/2009 Overview (07/29/2009): Per Lipid Taxonomy. CEREBROVASCULAR DZ, POST-STROKE 11/24/2008 Overview (11/26/2008): Modified per CVA protocol #8 Diabetic gastroparesis 02/19/2008 Major depressive disorder, r ecurrent severe without psychotic features 10/23/2001 Anxiety state 12/30/1999 documented as of this encounter (statuses as of 06/26/2024) Resolved Problems Problem Noted Date Diagnosed Date [...] proce ss of lumbar vertebra 04/09/2018 08/14/2023 Overview (04/17/2018): L2 Fracture of ribs, three, marjan sed, left, initial encounter 04/09/2018 08/14/2023 Overview (04/17/2018): 5th,6th, 7th Fracture of ribs, three, marjan sed, right, initial encounter 04/09/2018 08/14/2023 Overview (04/17/2018): 7th, 8th, 11th Recurrent falls 08/16/2017 08/14/2023 Type 2 diabetes mellitus wit h diabetic neuropathy, with long-term current use of insulin 06/12/2017 07/18/2022 Overview (07/18/2022): More spcecified code listed on PL E11.42 Falls frequently 05/08/2017 05/29/2022 Overview (05/29/2022): Duplicate Controlled substance agreement signed 03/16/2017 04/25/2024 MEDICATION USE AGREEMENT 03/16/2017 Premature menopause 02/21/2017 04/25/20 24 Type 2 diabetes mellitus wit h diabetic neuropathy, unspecified 10/02/2016 06/12/2017 Type 2 diabetes mellitus wit h hemoglobin A1c goal of less than 7.0% 11/18/2015 07/11/2016 Overview (12/07/2015): ICD-10 update of inactive term Status post total right knee replacement 05/11/2015 01/19/2017 Chest wall pain 10/10/2013 01/19/2017 HTN, GOAL BELOW 140/80 04/01/201211/16 Overview: Per HTN Protocol #27. ADVANCE DIRECTIVE INFORMATION 02/14/2011 06/16/2024 Overview (02/14/2011): No, Advance Directive brochure given to patient. -mailed 02/14/2011 Calculus of kidney 02/01/2011 7 Palpitations 12/20/2010 01/19/2017 OBESITY, BMI 30-34 (SEE ACTUAL BMI) 11/04/2009 01/19/2017 Overview (11/04/2009): Per Obesity Taxonomy HTN, GOAL BELOW 130/80 09/09/200904/04 Overview (09/09/2009): Per HTN Taxonomy. Type 2 diabetes mellitus wit h hemoglobin A1c goal of less than 7.0% 06/10/2009 09/09/2015 Overview (12/07/2015): Per Diabetes Taxonomy. ICD-10 update of inactive term Pulmonary embolus 08/20/2008 05/25/2017 Type 2 diabetes mellitus wit h hemoglobin A1c goal of less than 7.0% 06/23/2008 06/10/2009 Overview (12/07/2015): Per Diabetes Taxonomy. ICD-10 update of inactive term Vertebral fracture, pathological 06/19/2008 01/19/2017 Overview (06/19/2008): Following a fall at home 05/2008 Vertigo 03/25/2008 01/19/2017 Nausea with vomiting 02/18/2008 017 Abdominal pain, left lower quadrant 02/17/2008 01/19/2017 Diverticulosis of colon 02/06/2008 06/0 04/2017 Bladder disorder 01/13/2008 01/19/2017 DM type 2, not at goal 09/26/200709/21 UPPER EXTREMETY VENOUS THROMBOSIS NOS 03/30/2006 04/09/2024 group home current use of ant icoagulant therapy 03/30/2006 11/14/2017 Overview (05/14/2017): ICD-10 update of inactive term Anticoagulation management [...] goal of less than 7.0% 07/20/2003 09/26/2007 Overview (12/07/2015): ICD-10 update of inactive term DJD, BILATERAL KNEES 03/03/2003 017 Abnormal weight gain 03/03/2003 004 OBESITY, UNSPECIFIED 03/03/2003 010 Overview (11/04/2009): Per Obesity Taxonomy Organic sleep disorder 09/16/200212/14 Sciatica 05/14/2002 12/15/2003 Constipation 04/28/2002 01/19/2017 Overview (11/04/2015): ICD-10 update of inactive term CVA 03/07/2002 11/26/2008 Overview (11/26/2008): Modified per CVA protocol #8 Menopause 10/02/2000 04/25/2024 HTN, goal below 140/90 04/27/200009/09 Overview (09/09/2009): Per HTN Taxonomy. NEUROPATHY IN OTHER DIS 12/30/199909/14 HYPERLIPIDEMIA NEC-NOS 07/29 Overview (07/29/2009): Per Lipid Taxonomy. documented as of this encounter (statuses as of 06/26/2024) Immunizations Name Administration Dates Next Due COVID-19 mRNA, LNP-s, No Pre serve, 2-Dose Series ([employer]) 08/10/2021 COVID-19, MRNA-LNP, PF, 50 M CG/0.5 mL, 12 YRS AND ABOVE, IM (MODERNA-Spikevax) 06/20/2023 H1N1 2008 Influenza, IM 10/27/2009 Hepatitis B, 20+ yrs 02/04/2014,12/30/2013 Pneumococcal Conjugate Vacci ne, 20-valent ([id number]) 04/05/2023 Pneumococcal Polysaccharide PPV23 (Pneumovax) 08/26/2021,05/13/2010,12/14/2005 Seasonal Influenza Vac., MDV , IM, 0.5 mL (Fluzone) 08/13/2014,05/29/2014,05/21/2013,05/06,05/26/2011,09/27/2010,09/29/2009 ,05/25/2008,05/26/2007,05/22/2006 Seasonal Influenza Virus Vac cine, Unspecified Formulation 06/01/2022,06/10/2021,06/06/2019,04/26,06/12/2017,05/02/2016,05/11/2015 ,08/13/2014,05/29/2014,05/21/2013,04/14,05/26/2011,09/27/2010, 0,05/25/2008,05/26/2007,05/22/2006, Seasonal Influenza, High Dos e, Trivalent, PF, IM (Fluzone HD) 05/13/2024 Seasonal Influenza, PF, 6 M & above, IM , (FluLaval or Fluzone) 06/06/2019,04/26/2018,06/12/2017 Seasonal Influenza, Quadriva lent Hd (Fluzone Hd) 06/01/2022,06/10/2021 Seasonal Influenza, Quadriva lent, No Preserve, IM 05/22/2020,05/02/2016,05/11/2015 TDAP (age 10 and older)(Boostrix) 12/30/2015 TDAP, Age 7 and older, IM (Adacel) 06/19/2006 documented as of this encounter Social History Tobacco Use Types Packs/Day Years Used Date Smoking Tobacco: Never Smokeless Tobacco: Never Alcohol Use Standard Drinks/Week Comments Not Currently 0 (1 standard drink = 0.6 oz pur e alcohol) rare PHQ-2 Answer Date Recorded PHQ Adult Total Score 10 04/25/2024 Hunger Vital Sign Answer Date Recorded Within the past 12 months, y ou worried that your food would run out before you got the money to buy more. Never true 04/25/20 24 Within the past 12 months, t he food you bought just didn't last and you didn't have money to get more. Never true 04/25/2024 Childcare Answer Date Recorded Do you feel overwhelmed with taking care of a child, family member or friend? No 04/25/2024 Does your family need help f inding childcare? (Household - for ages 0-17 years) Not on file 04/25/2024 Clothing Answer Date Recorded Have you been unable to get clothing when it was really needed? No 04/25/2024 Is your family able to get c lothes or diapers when needed? (Household - for ages 0-17 years) Not on file 04/25/2024 Personal Safety Answer Date Recorded Do you feel unsafe or have concerns for your saf ety? No 04/25/2024 Do you have concerns for you r family's safety? (Household - for ages 0-17 years) Not on file 04/25/2024 Utilities Answer Date Recorded Do you have trouble paying y our heating, water, or electric bill? No 04/25/2024 Is your family able to pay t he heat, water, or electric bill? (Household - for ages 0-17 years) Not on file 04/25/2024 Does your family have access to good internet? (Household - for ages 0-17 years) Not on file 04/25/2024 Employment Status Answer Date Recorded Are you unemployed or without regular income? No 04/25/2024 Does the household have a re gular source of income? (Household - for ages 0-17 years) Not on file 04/25/2024 Social Connections Answer Date Recorded How often do you feel lonely or isolated from th ose around you? Often 04/25/2024 Financial Resource Strain Answer Date R ecorded Do you have any trouble payi ng for your medications, or do you think you might in the future? No 04/25/2024 Does your family have troubl e paying for medicine? (Household - for ages 0-17 years) Not on file 04/25/2024 Transportation Needs Answer Date Record ed Do you have trouble getting a ride to medical visits or work? (Adult - for ages 18 years and over) Not on file 04/25/2024 Does your family have a hard time getting a ride to doctors visits? (Household - for ages 0-17 years) Not on file 04/25/2024 Has lack of transportation k ept you from medical appointments, meetings, work, or from getting things needed for daily living? Check all that apply. Yes, it has kept me from non-medical meetings, appointments, work, or from getting things that I need 04/25/2024 Do you (or your family) have trouble finding or paying for a ride (transportation)? (Household - for ages 0-17 years) Not on file 04/25/2024 Housing Stability Answer Date Recorded Do you currently live in a s helter or have no steady place to sleep at night? No 04/25/2024 Do you think you are at risk of becoming homeless? (Adult - for ages 18 years and over) Not on file 04/25/2024 Does your family worry about paying for your home or becoming homeless? (Household - for ages 0-17 years) Not on file 0 04/25/2024 Are you homeless or worried that you might be in the future? No 04/25/2024 Are you (or your family) chema eless or worried that you might be in the future? (Household - for ages 0-17 years) Not on file Food Insecurity Answer Date Recorded Do you need food for this week? No 04/25/2024 Are you able to get enough f ood for your family? (Household - for ages 0-17 years) Not on file 04/25/2024 Does your family need food t his week? (Household - for ages 0-17 years) Not on file 04/25/2024 Do you always have enough fo od for your family? (Household - for ages 0-17 years) Not on file 04/25/2024 Comments No Sex and Gender Information Value Date Recorded Sex Assigned at Female 06/06/2019 8:49 AM EDT Legal Sex Female 5:14 AM EST Gender Identity Female 06/06/2019 8:49 AM EDT Sexual Orientation Straight 06/06/2019 8: 49 AM EDT Occupation Industry Job Start Date Job End Date does not work Not on file Not on file Not on file documented as of this encounter Plan of Treatment Upcoming Encounters Date Type Department Care Team (Late st Contact Info) Description 07/01/2024 9:30 AM EST Office Visit [facility]ol[facility] [address] [place] [address] Brendon Maynard MD [address] [place] [address] 07/15/2024 11:30 AM EST Office Visit Pharmacy, [place] [address] [place] [address] [facility] [address] [place] [address] 07/18/2024 2:00 PM EST Office Visit Hepatology, [facility] [address] [facility] [place] [address] Mary Bejarano MD [address] [facility] [place] [id number] 08/21/2024 2:15 PM EST Office Visit [facility] [address] [place] [address] Gui Mcdaniels DO [address] [place] [address] Photographer Arturo [address] [place] [address] 09/15/2024 9:40 AM EST Office Visit [address] [address] Adria Hilliard MD [address] [place] [address] 04/27/2025 9:00 AM EDT Home Visit Care at Home [address], [place] [id number] Flores Lee PA-C [address], [place] [id number] Scheduled Procedures Name Priority Associated Diagnoses Date/Ti me COLONOSCOPY FLEXIBLE PROXIMAL DIAGNOSTIC Recall History of colon polyps Health Maintenance Due Date Last Done Comments Cologuard 02/12/2001 Fecal Occult Blood Test 02/12/2001 Sigmoidoscopy 02/12/2001 COVID-19 Vaccine ( season) 2024 06/20/2023, 06/20/2023, 08/10/2021, Additional history exists *BISPHONATE OR OTHER ACCEPTABLE MEDICATION NEEDED FOR OSTEOPOROSIS (REFER TO SMARTSET #1146) 04/28/2024 Diabetic Foot Exam 08/16/2024 08/16/2023, 0 04/05/2020, 11/14/2017, Additional history exists HbA1c 10/04/2024 04/03/2024, 04/0 08/2023, 08/16/2023, Additional history exists Mammogram 10/16/2024 10/17/2023, 030 01/2024, 10/13/2022, Additional history exists Zoster Vaccines (1 of 2) 02/10/2025 Pos tponed from 02/12/2006 (Patient Declined After Education) Albumin/Creatinine Ratio 04/03/202504/03/2 024, 04/05/2023, 03/03/2022, Additional history exists GFR 04/03/2025 04/03/2024, 06/0 11/2023, 04/10/2023, Additional history exists TSH 04/03/2025 04/03/2024, 04/0 08/2023, 08/16/2023, Additional history exists Diabetic Eye Exam 04/17/2025 04/17/2024, , 04/17/2024, Additional history exists Adult Wellness Visit 04/22/2025 04/22/2024 Depression Monitoring 04/25/2025 04/25/2024, 024 DXA Scan 05/12/2025 11/21/2021, 11/11, 07/16/2017, Additional history exists Postponed from 11/22/2023 (Patient Declined After Education) Colonoscopy 12/27/2025 12/27/2020, 12/11, 11/28/2017, Additional history exists Colorectal Cancer Screening 12/27/2025 DTap/Tdap Vaccines (3 - Td or Tdap) 12/29/2025 12/30/2015, 06/19/2006 Hepatitis B Vaccine Discontinued 02/04/2014, 4 VITAMIN D LEVEL ONCE IN A LIFETIME-USE SMARTSET# 78059 Completed 06/06/2019, 07/02/2017, 12/23/2014, Additional history exists RETIRED - COLONOSCOPY-EVERY 5 YRS AGES 18-100 Discontinued 12/27/2020, 12/27/2020, 11/28/2017, Additional history exists Pneumococcal Vaccine: 65+ Years Completed 04/05/2023, 08/26/2021, 05/13/2010, Additional history exists Influenza Vaccine (FLU shot) Completed 05/13/2024, 06/01/2022, 06/01/2022, Additional history exists HPV (Gardasil) Vaccine Aged Out No lo nger eligible based on patient's age to complete this topic MENINGOCOCCAL (MENACTRA/MENVEO) Aged Out No longer eligible based on patient's age to complete this topic documented as of this encounter Medical Devices Not on filedocumented as of this encounter Care Teams Plate Embosser Relationship Specialty Start Date End Date Adria Hilliard MD [address] [place] [address] PCP - General Family Medicine 09/27/18 documented as of this encounter
--- OUTSIDE RECORDS SUMMARY | 2024-07-12 12:13 | External Medical Summary | Summary of Care ---
Author Name Unknown Organization [facility] Address [address] [place] [address] Phone [phone] Care Team Providers Care Embedded Software Engineer Name Role Phone Adria Hilliard MD Primary Care Provider [phone] Reason for Visit * Reason Comments NEW PATIENT * Evaluate & Treat - Unlimited Visits (Within 10 days (routine)) - Authorized Specialty Diagnoses / Procedures Referred By Ruth cruz Referred To Contact Otolaryngology Diagnoses Epistaxis Adria Hilliard MD [address] [place] [address] Phone: tel: fax: Referral ID Status Reason Start Date Expiration Date Visits Requested Visits Authorized [id number] Authorized Specialty Services Required 04/07/[phone] Encounter Details Date Type Department Care Team (Latest Contact Info) Description 07/01/2024 9:30 AM EST Office Visit Otolaryngology Allergy [facility] [address] [place] [address] Brendon Maynard MD [address] [place] [address] Recurrent epistaxis*; Antiplatelet or antithrombotic long-term use Allergies Active Allergy Reactions Criticality Noted Date [...] as of this encounter (statuses as of 07/01/2024) Medications Cholecalciferol (VITAMIN D) 1000 units Tablet daily 30 Tab 5 06/04/20 Active CarboniteTouch Verio Flex System w/Device Kit Use to test blood sugars 4 times a day. 1 Kit 07/07/20 Active CPAP every night at bedtime. Active CarboniteTouch Verio In Vitro Strip (Glucose Blood)Indications: Type [...] E 11.9 100 Strip 3 06/11/20 Active CarboniteTouch Delica Lancets 33GIndications:Typ e 2 diabetes mellitus with hemoglobin [...] goal of less than 8.0% ([facility]),Dyslipidemia , goal to be determined TAKE 1 [...] current use of insulin ([facility]) Taking 5 units 3xday with meals 15 mL 3 05/13/20 Active Additional Information Patient taking differently: Inject 6 or more units under the skin before meals following chart provided by [facility] on 06/06/24. Max daily dose of 30 [...] long-term current use of insulin (HCC) Inject 18 Units under the skin in the morning. 15 mL 4 06/09/2024 10:54 AM EDT 06/06/20 24 Active Clopidogrel Bisulfate 75 MG Oral Tablet [...] as of this encounter (statuses as of 07/01/2024) Active Problems Problem Noted Date Diagnosed Date [...] as of this encounter (statuses as of 07/01/2024) Resolved Problems Problem Noted Date Diagnosed Date [...] Overview (04/17/2018): L2 Fracture of ribs, three, majran sed, left, initial encounter 04/09/2018 08/14/2023 Overview [...] quadrant 02/17/2008 01/19/2017 Diverticulosis of colon 02/06/2008 0604/2017 Bladder disorder 01/13/2008 01/19/2017 DM type 2, not at goal 09/26/200709/21 UPPER EXTREMETY VENOUS THROMBOSIS NOS 03/30/2006 04/09/2024 custodial current use of ant icoagulant therapy 03/30/2006 [...] as of this encounter (statuses as of 07/01/2024) Immunizations Name Administration Dates Next Due COVID-19 mRNA, LNP-s, No Pre serve, 2-Dose Series ([employer]) 08/10/2021 COVID-19, MRNA-LNP, PF, 50 M CG/0.5 mL, 12 YRS AND ABOVE, IM (MODERNA-Spikevax) 06/20/2023 H1N1 2009 Influenza, IM 10/27/2009 Hepatitis B, 20+ yrs 02/04/2014,12/30/2013 Pneumococcal Conjugate Vacci ne, 20-valent ([id number]) 04/05/2023 Pneumococcal Polysaccharide PPV23 (Pneumovax) 08/26/2021,05/13/2010,12/14/2005 Seasonal [...] No 04/25/2024 Does the household have a [facility] source of income? (Household - for ages [...] on file documented as of this encounter Patient Instructions * Patient Instructions* Brendon Maynard MD - 07/01/2024 10:00 AM EST - left anterior septal vessel was cauterized over the prominent maxillary crest using silver nitrate. Nosebleed Instructions - Nasal saline spray: Beginning tomorrow Use 2 squirts in each nostril every 2 hours while awake. - apply mupirocin ointment to the affected nostril 3 times a day for the next week and then as needed for dryness. - to prevent nasal dryness in the future, Ringold nasal gel maybe use in each nostril every 4 hours andat bedtime. - Use a humidifier in the home, especially in the bedroom. - DO NOT blow your nose. - DO NOT manipulate or pick crusts from your nose. - Avoid bending over. - DO NOT strain excessively in the bathroom. - Sneeze through an open mouth. - If your nose starts bleeding, pinch the soft portion of the nose firmly and hold for 10 Minutes. If bleeding persists contact your ENT office or seek medical attention. documented in this encounter Progress Notes * Brendon Maynard MD - 07/01/2024 9:30 AM EST PATIENT: Viky Fine : 1955 DATE OF SERVICE: 07/01/2024 History of Present Illness The 69 year old female is seen at the request of Adria Hilliard MD for evaluation of epistaxis. Patient is on Plavix. History of PE. Patient was referred by primary care in March for frequent nosebleeds. Bleeding episodes reported lasting over an hour. Bleeding has been primarily left-sided. Patient reports issues with nasal bleeding have been over the past several years. She reports a typical bleeding episode last from 10-20 minutes in duration. Patient will often note a headache prior to developing the nosebleed. Patient denies any known history of bleeding disorders. She denies previous history of nasal surgeries. Patient is retired. 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 Patient denies history of tobacco use. 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) Type 2 diabetes mellitus with hemoglobin A1c goal of less than 8.0% ([facility]) HTN, goal below 140/90 Hypothyroidism H/O: hysterectomy [...] dysfunction Age-related osteoporosis without current pathological fracture Past Medical History: Diagnosis Date 272.4 Marked [...] neuropathy, with long-term current use of insulin (HCC) 06/12/2017 More spcecified code listed on PL E11.42 Type 2 diabetes mellitus with hyperglycemia (HCC) 08/16/2023 UPPER EXTREMETY VENOUS THROMBOSIS NOS 03/30/2006 Vertigo Past Surgical History: Procedure Laterality Date ABDOMEN SURGERY PROCEDURE NEC 2002 small bowel repair ABDOMEN SURGERY PROCEDURE NEC 2003 adhesions removed stomach linned replaced BIOPSY OF BREAST, OPEN 1994 Benign left breast mass BREAST LESION,OTHER,EXCISION 11/20/1996 Dr. Michael BREAST LESION,OTHER,EXCISION 1994 Breast Excision, benign tumor/cyst right CATARACT SURGERY,COMPLEX 2019 Dr Brown COLONOSCOPY 2001 [facility] COLONOSCOPY THRU STOMA, W/BIOPSY 2001 Colonoscopy with Biopsy tumor removed COLONOSCOPY, DIAGNOSTIC (RECTUM) 12/13/2011 COLONOSCOPY FLEXIBLE PROXIMAL DIAGNOSTIC performed by LINDA SHRESTHA at ENDOSCOPY [facility] COLONOSCOPY, DIAGNOSTIC (RECTUM) 11/28/2017 adenomatous polyps, repeat 3 yrs/COLONOSCOPY FLEXIBLE PROXIMAL DIAGNOSTIC performed by Yuliya Martinez MD at ENDOSCOPY [facility] COLONOSCOPY, DIAGNOSTIC (RECTUM) 12/27/2020 normal, repeat 5 yrs / COLONOSCOPY FLEXIBLE PROXIMAL DIAGNOSTIC performed by Yuliya Martinez MD at ENDOSCOPY [facility] CT ABDOMEN/PELVIS 04/09/2018 acute nondisplaced fxs right transverse process of L2, multiple old fx Lumbar unchanged. [facility] CT C SPINE WO CONTRAST 04/09/2018 no fractures. [facility] CT CHEST WO CONTRAST 04/09/2018 several healing bilateral rib fractures. acute nondisplaced fx anterior left 5th, 6th and 7th and right 7th, 8th and 11th ribs. old cmopression fx T11. [facility] CT HEAD/BRAIN WO CONTRAST 04/09/2018 no acute intracranial abnormalities. [facility] CT L SPINE WO CONTRAST 04/09/2018 Acute non displaced fx right transverse process L2old superior endplate fxs L1, L3, L4, moderate spinal stenosis L3-L4 CT T SPINE WO CONTRAST 04/09/2018 mild compression deformity superior endplate T11, estimated loss 10 to 15% body height. [facility] DILATION AND CURETTAGE (D&C) 1979 FLUORESCEIN ANGIOGRAPHY MULTIFRAME Bilateral 01/06/2022 Dr. Mcintosh KNEE ARTHROSCOPY, DIAGNOSTIC 1996 DR HINKLE left LAPAROSCOPY, SURGICAL; W/LYSIS OF ADHESIONS 1995 LAPAROSCOPY, SURGICAL; W/LYSIS OF ADHESIONS 1998 LAPAROSCOPY, SURGICAL; W/LYSIS OF ADHESIONS 2002 [facility] LAPAROSCOPY,BIOPSY 1995 adhesions removed/ lining in stomach repaired per pt LAPAROSCOPY,BIOPSY 2002 adhesions removed LIGATE/CUT OVIDUCT(S) 1983 partial OTHER 12/03/2009 Lysis of abdominal adhesions, laparoscopic cholecystectomy cholangiogram 12/03/[address] Castelan at [facility] OTHER (INFORMATION) ACT 112 Consent Signed, Dr. Mcintosh PARTIAL HYSTERECTOMY 1983 left ovaries REMOVAL OF OVARY(S) FOR TUMOR 1988 both ovaries TOTAL ABD HYSTERECTOMY W/WO REMOVAL OF TUBE(S) 08/13/1983 VASCULAR SURGERY PROCEDURE NEC 2000 XR CHEST 1 VIEW 04/09/2018 NAD [facility] Current Outpatient Medications Medication Sig Dispense Refill Cholecalciferol (VITAMIN D) 1000 units Tablet daily 30 Tab 5 Rosuvastatin Calcium 20 MG Oral Tablet (Crestor) TAKE 1 TABLET BY MOUTH EVERY DAY IN THE MORNING 100 Tablet 4 buPROPion HCl 100 MG Oral Tablet (Wellbutrin) Take one and one-half tablets (150mg) by mouth in themorning, and one tablet (100mg) at noon. 250 Tablet 1 Sertraline HCl 100 MG Oral [...] Tablet Delayed Release Disintegrating Take by mouth. Metoclopramide HCl 5 MG Oral Tablet (Reglan) [...] DAY IN THE MORNING 100 Tablet 1 Gabapentin 300 MG Oral Capsule (Neurontin) Take 1 Capsule by mouth in the morning and 1 Capsule at noon and 1 Capsule before bedtime. 270 Capsule 3 Clopidogrel Bisulfate 75 MG Oral Tablet (pLAVix) TAKE 1 TABLET BY MOUTH EVERY DAY IN THE MORNING 100 Tablet 1 Survature Flex System w/Device Kit Use to test blood sugars 4 times a day. 1 Kit 0 CPAP every night at bedtime. [employer] Verio In Vitro Strip (Glucose Blood) Use to check sugars once daily E 11.9 100 Strip 3 [employer] Delica Lancets 33G Use to check sugars daily E 11.9 100 Each 1 [place].de G7 Sensor Use as directed. Change every 10 days. Supplied by Home Care Delivered Lisinopril 40 MG Oral Tablet Take 1 Tablet by mouth in the morning. 100 Tablet 1 Levothyroxine Sodium 137 MCG Oral Tablet Take 1 Tablet by mouth in the morning. (at least 30 min prior to breakfast or other meds). 100 Tablet 1 BD Pen Needle Micro U/F 32G X [...] ORALLY FOUR TIMES DAILY FOR 30 DAYS NovoLOG FlexPen 100 UNIT/ML Subcutaneous Solution Pen-injector (insulin aspart) Taking 5 units 3xday with meals (Patient taking differently: Inject 6 or more units under the skin before meals following chart provided by [facility] on 06/06/24. Max daily dose of 30 units) 15 mL 3 Insulin Glargine Solostar 100 UNIT/ML Subcutaneous Solution Pen-injector (Lantus SoloStar) Inject 18 Units under the skin in the morning. 15 mL 4 NIFEdipine ER 30 MG Oral Tablet Extended Release 24 Hour (Adalat CC) Take 1 Tablet by mouth in the morning. 100 Tablet 1 No current facility-administered medications for this visit. Family History Adopted: Yes Problem Relation Name Age of Onset Diabetes Father Diabetes Aunt (Unspecified) Diabetes Aunt (Unspecified) Cancer Father Lung Cancer Sister stomache Social History Tobacco Use Smoking status: Never Smokeless tobacco: Never Substance Use Topics Alcohol use: Not Currently Comment: rare Vaping/E-Cigarette Use Vaping/E-Cigarette Use Never User Vaping/E-Cigarette Substances Vaping/E-Cigarette Devices Review of Systems Negative for constitutional, eyes, cardiac, pulmonary, hepatic, renal, digestive, hematologic, epileptic, syncopal, musculo-skeletal, mental health, integumentary, hypertensive, lipid, arthritic, diabetic, thyroid or neurologic disorders (except as listed in the PMH and Problem List). Physical Examination: Vital Signs: There were no vitals filed for this visit. General: This is a healthy appearing female who appears her stated age. The patient is alert and oriented x 3 and is appropriately verbally conversant without hoarseness. Head/Face: The face was inspected and no cutaneous masses or lesions were visualized. There was no erythema or edema noted. Facial movement was symmetric without weakness. No skin lesions were detected. The parotid and submandibular glands were normal to palpation. Eyes: Extra-ocular muscle function was intact. No nystagmus was observed. Pupils were equal. Cranial Nerves: Cranial nerves II, III, IV, and were noted to be intact via extra-ocular muscle movement testing. Cranial nerve VII was noted to be intact and symmetric by facial movement. Cranialnerves IX and X were noted to be intact by gag reflex and palatal movement. Cranial nerve XII was noted to be intact by active and symmetric tongue movement. Nose: Examination of the nose revealed septum is non-obstructing. The turbinates are normal in appearance. No lesions or masses are appreciated. No mucopurulence or polyps appreciated. A punctate prominent vessel was noted on the left along the nasal floor and maxillary crest. This is the likely source of bleeding. PROCEDURE Examination of the nose revealed prominent anterior septal vessel on the left. No nasal masses noted. Since bleeding history is left sided, the area to be cauterized was further anesthetized with topical afrin/lidocaine on a cottonoid. After approximately 5 minutes, the cottonoid was removed and AgNO3 applied to the prominent septal vessel on the left anterior septum/maxillary crest. This was then neutralized with nasal saline solution and surgicel coated with bactroban ointment then applied tothe cauterized area. Patient tolerated the procedure well. Oral Cavity: Examination of the oral cavity revealed no mass lesions or infection. The palate was noted to be intact without evidence of clefting. The tongue exhibited normal mobility. Mucosa was moist without lesion. The lips were free of lesion. The gingiva was free of inflammation. Dentition: Healthy in appearance Oropharynx: Mucous membranes moist. No lesions or masses appreciated. Uvula midline. Tonsils unremarkable. Neck: Visualization and palpation of the neck revealed no mass lesions, no thyromegaly or thyroid masses. No skin lesions or inflammatory processes were detected. The cervical musculature was normal to palpation. Lymphatics (cervical): There were no palpable lymph nodes in the posterior triangle, submandibular triangle, jugulodigastric region, or central neck. Impression and Plan: ICD-10-CM 1. Recurrent epistaxis R04.0 2. Antiplatelet or antithrombotic long-term use Z79.02 Patient Instructions - left anterior septal vessel was cauterized over the prominent maxillary crest using silver nitrate. Nosebleed Instructions - Nasal saline spray: Beginning tomorrow Use 2 squirts in each nostril every 2 hours while awake. - apply mupirocin ointment to the affected nostril 3 times a day for the next week and then as needed for dryness. - to prevent nasal dryness in the future, Ringold nasal gel maybe use in each nostril every 4 hours andat bedtime. - Use a humidifier in the home, especially in the bedroom. - DO NOT blow your nose. - DO NOT manipulate or pick crusts from your nose. - Avoid bending over. - DO NOT strain excessively in the bathroom. - Sneeze through an open mouth. - If your nose starts bleeding, pinch the soft portion of the nose firmly and hold for 10 Minutes. If bleeding persists contact your ENT office or seek medical attention. Brendon Maynard MD Otolaryngology Allergy [address] [address] documented in this encounter Plan of Treatment Upcoming Encounters Date Type Department Care Team (Late st Contact Info) Description 07/15/2024 11:30 AM EST Office Visit Pharmacy, [address] [address] [place] [address] [place] [address] 07/18/2024 2:00 PM EST Office Visit Hepatology, [facility] [address] [place] [address] Mary Bejarano MD [address] [place] [address] [place] [address] 08/21/2024 2:15 PM EST Office Visit [address] [address] Gui Mcdaniels, DO [address] [place] [address] Photographer Arturo Roberson [address] [place] [address] 09/15/2024 9:40 AM EST Office Visit Family [address] [address] Adria Hilliard MD [address] [place] [address] 04/27/2025 9:00 AM EDT Home Visit Care at Home [address] [place] [address] Flores Lee PA-C [address] [place] [address] Scheduled Procedures Name Priority Associated Diagnoses Date/Ti me COLONOSCOPY FLEXIBLE PROXIMAL DIAGNOSTIC Recall History of colon polyps Scheduled Referrals Name Type Priority Associated Diagnoses Order Schedule ADULT/PEDS OTOLARYNGOLOGY REFERRAL OP Referral Within 10 days (routine) Epistaxis Ordered: 04/07/2024 Health Maintenance Due Date Last Done Comments Cologuard 02/12/2001 Fecal Occult Blood Test 02/12/2001 Sigmoidoscopy 02/12/2001 COVID-19 Vaccine ( season) 2024 06/20/2023, 06/20/2023, 08/10/2021, Additional history exists *BISPHONATE OR OTHER ACCEPTABLE MEDICATION NEEDED FOR OSTEOPOROSIS (REFER TO SMARTSET #[id number]) 04/28/2024 Diabetic Foot Exam 08/16/2024 08/16/2023, 0 04/05/2020, 11/14/2017, Additional history exists HbA1c 10/04/2024 04/03/2024, 040 08/2023, 08/16/2023, Additional history exists Mammogram 10/16/2024 [...] D LEVEL ONCE IN A LIFETIME-USE SMARTSET# [id number] Completed 06/06/2019, 07/02/2017, 12/23/2014, Additional history exists [...] as of this encounter Visit Diagnoses Diagnosis Recurrent epistaxis- Primary Epistaxis Antiplatelet or antithrombotic long-term use Encounter for therapeutic drug monitoring documented in this encounter Care Teams Embedded Software Engineer Relationship Specialty Start Date End Date Adria Hilliard MD [address] [place] [address] PCP - General Family Medicine 09/27/18 documented as of this encounter
--- NOTE | 2024-07-12 12:19 | Emergency Department Note ---
Impression & Plan Closed fracture of right hip, Acute hyperglycemia, Ground-level fall ED Provider Note Name: RENAN VILLAGRAN Age: 69 Sex: Female Arrives Via: Ambulance Informant: Patient, EMS, nursing staff ED Provider: Burke Gaston MD Chief Complaint: Right hip pain Impression: As per impressions above Medical Decision Makin-year-old female with a trip and fall at home laying on the cold for almost an hour. Arrives shivering though temperature already coming up. She has significant pain in the right hip with spasm of the right thigh. Does have an abrasion over the right knee. ATLS protocol followed and patient evaluated initially in trauma bay A1. IV narcotic given for pain, she was kept in cervical collar with C-spine precautions. She had imaging of the chest pelvis and right femur. Questionable right intertrochanteric fracture on initial imaging of right hip. CT imaging of the head neck chest abdomen pelvis reveals a right intratrochanteric fracture but no other acute findings. Does have old rib fractures I do not feel there are new from today. Laboratory workup consistent with her chronic disease including her hyperglycemia. I discussed the case with orthopedics who agree with plan for bring into our facility and also with the hospitalist who will manage medical side of things. Triage/Nursing Notes reviewed by Me Differential:Fracture, dislocation, contusion, intra-abdominal, pneumothorax, intrathoracic, intracranial, neurologic, compartment syndrome, rhabdomyolysis, as well as other pathologies. Vital Signs: reviewed and remarkable for hypertension Interventions: Dilaudid 1 mg IV x 2, Ativan 0.5 mg IV Labs:ED labs Reviewed by me and remarkable for hyperglycemia Imagin view chest x-ray as per my interpretation no infiltrate or effusion appreciated. No pneumothorax appreciated. 1 view pelvis x-ray as per my interpretation there is a fracture of the right intertrochanteric area of the femur. 3 view right femur x-ray as per my interpretation. There is an intratrochanteric fracture appreciated on the right. CT pisano scan without contrast. Right intertrochanteric fracture. Old rib fractures. No other acute findings. This is confirmed with radiologist. EKG:As per my interpretation. Indication weakness. Normal sinus rhythm 86 bpm QTc of 507. There is no ectopy nor ischemia. There is a nonspecific intraventricular block. There is no significant change from June 26, 2024 EKG. Cardiac/Tele Monitoring: Cardiac Monitoring: An Order was placed for continuous cardiac monitoring. The monitor shows a rate of 80 with a normal sinus rhythm. Consults:Discussed with Dr. Williamson of orthopedic surgery. Feels this can be managed here at this facility. Discussed with Dr. Lopez of [facility] service here at [facility] and they will manage medically. Plan: Disposition:Hospitalization. Condition: Good History of Present Illness: 69-year-old female arrives for evaluation of right hip pain. Patient notes she was walking outside this morning when she tripped and fell. She landed on her right knee resulting in severe right thigh and hip pain. Also notes her low back is hurting her as well as having a headache. She is unsure if she did hit her head. She does note that she takes Plavix for previous pulmonary embolism. Denies any frequent falls or injuries. Has a history of left hip replacement. States her hip was hurting her too much so she could not get up and thus was laying on the ground outside for at least an hour. Past Medical History:See Below Home Medications:See Below Allergies:See Below Vitals:Blood Pressure: 159/98, Pulse 85, RR 20, T 36.6C, O2 91% on RA Physical Exam: Primary Survey Airway: Intact Breathing: Normal, breath sounds equal bilaterally Circulation: Skin warm, distal pulses 2+, capillary refill less than 2 seconds Disability Pupils: Equal and reactive to light, 4mm, brisk GCS: 15, E = 4 V=5 M= 6 Motor Function: Moves all extremities. Sensory: No deficits Secondary Survey GEN: Well developed and well-nourished, very uncomfortable appearing. Cool to touch HEAD: Normal cephalic atraumatic EYES: Pupils round reactive to light, conjunctiva clear, extraocular movements intact, no raccoons eyes ENT: No fluid in external acoustic canals, no hemotympanum, no wynn's sign, nares patent, oropharynx clear NECK: No JVD, midline trachea, no cervical spine tenderness, C-collar in place HEART: Regular rate and rhythm LUNGS: Clear to auscultation bilaterally. CHEST: Chest wall non-tender, no bruising/deformity ABD: No Javier-Eduardo's or Troy's sign, soft, non-tender, no rebound or guarding, PELVIS: Stable to rock : No perineal hematoma, no blood at the meatus EXT: Significant tenderness palpation of the mid and upper right thigh with severe pain on range of motion of the right hip. Abrasion over the anterior right knee. 2+ global pulses, moving all extremities well, +5/5 muscle strength globally NEURO: CNII-XII grossly intact, no sensory deficits RECTAL: Good tone, no gross blood, no high riding prostate ED Course: Times/Reassessments: Multiple repeat evaluations. Patient is improving with just a mild hypoxia following IV narcotics. She was given some IV Ativan as continued chills and development of spasm in the right thigh Burke Gaston MD Past Med/Surg History Problem List (Updated 07/12/24 @ 19:47 by Burke Gaston MD) Ground-level fall (Acute) Acute hyperglycemia (Acute) Closed fracture of right hip (Acute) Chronic idiopathic thrombocytopenia Abrasion, right knee, initial encounter Contusion of right chest wall Displaced intertrochanteric fracture of right femur, initial encounter for closed fracture Nausea (Acute) Headache (Acute) Dizziness Dehydration (Acute) Hyperglycemia due to type 2 diabetes mellitus (Acute) Hyperglycemia Low back pain Other cervical disc degeneration, mid-cervical region, unspecified level Neck pain Degenerative arthritis of lumbar spine Irritable bowel syndrome with constipation Diabetic gastroparesis Chronic generalized abdominal pain Suspected UTI Asymptomatic hypertensive urgency Constipation (Acute) Acute UTI (Acute) Nausea & vomiting (Acute) Hernia, umbilical (Acute) Abdominal pain (Acute) Vomiting (Acute) SBO (small bowel obstruction) (Acute) Lumbar radiculopathy Degenerative disc disease, lumbar Chest pain Precordial chest pain (Acute) Ambulatory dysfunction (Acute) Vomiting (Acute) Headache (Acute) Accidental medication overdose (Acute) Hyperglycemia (Acute) Hemarthrosis involving knee joint Contusion of bone Intertrochanteric fracture of left femur Hypothyroidism Closed left humeral fracture (Acute) Acute pain of left hip (Acute) Contusion of rib on left side (Acute) Inability to ambulate due to hip (Acute) Status post fall (Acute) History of CVA (cerebrovascular accident) x2 1990s History of pulmonary embolism Ambulatory dysfunction Fall (Acute) Multiple fractures of ribs of right side (Acute) Fracture of toe of right foot (Acute) Cellulitis of leg, right (Acute) Fibula fracture Distal radius fracture, left Closed fracture of radial styloid (Acute) Neuropathy (Chronic) Osteoporosis (Chronic) 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 (Chronic) Hypothyroidism (Chronic) Anxiety (Chronic) Depression (Chronic) DVT (deep venous thrombosis) (Chronic) Dyslipidemia (Chronic) DM type 2 (diabetes mellitus, type 2) (Chronic) insulin dependent Hypertension (Chronic) Lumbar transverse process fracture (Chronic) Multiple rib fractures (Chronic) Thoracic compression fracture (Chronic) Medical History Cellulitis of great toe of right foot Cellulitis of foot, right Surgical History History of oophorectomy S/P left knee arthroscopy H/O dilation and curettage H/O abdominal surgery small bowel repair lysis of adhesions History of hysterectomy History of cholecystectomy History of tubal ligation Family History Father Lung cancer Diabetes Sister Stomach cancer Social History Smoking Status: Never smoker Tobacco Type: Cigarettes Second Hand Exposure: No; Do You Dip or Chew Tobacco: No; Hx Alcohol Use: Yes Alcohol type: beer and wine Hx Substance Use: No Preferred Language: Surinamese Communication Ability: Effective Visual Impairment: No Limitations Hearing Ability: Normal Inventory Representative Required: No Beliefs That Will Affect Care: None marital status: Current Living Situation: Spouse Current Living Situation Comment: with How many Children do You have: 0 Feels Safe at Home: Yes Assistive Devices: Cane, Glasses and Wheelchair Allergies Allergies Allergy/AdvReac Type Severity Reaction Status Date / Time adhesive Allergy Intermediate RASH Verified 02/22/24 19:12 Iodinated Contrast Media Allergy Intermediate burning Verified 02/22/24 19:12 and aching in veins latex Allergy Intermediate RASH Verified 02/22/24 19:12 Penicillins Allergy Intermediate n/v, rash Verified 02/22/24 19:12 Anesthetics - Amide Type - AdvReac Intermediate Vomiting Verified 02/22/24 19:12 Select A [Anesthetics - Amide Type] Anesthetics - Juju Type- AdvReac Intermediate Vomiting Verified 02/22/24 19:12 Parabens hepatitis B virus vaccine AdvReac Intermediate CHEST Verified 02/22/24 19:12 TIGHTNESS WITH 2ND DOSE. ketorolac AdvReac Intermediate ITCHING. Verified 02/22/24 19:12 tromethamine AdvReac Intermediate ITCHING. Verified 02/22/24 19:12 aspirin AdvReac Unknown CONTRAINDICATED---currently Verified 02/22/24 19:12 with gastric ulcer, per pt Home Meds Home Medications Medication Instructions Recorded Confirmed bupropion HCl 100 mg tablet 100 mg PO .DAILY AT NOON 05/03/24 07/12/24 bupropion HCl 100 mg tablet 150 mg PO QAM 05/03/24 07/12/24 carvedilol 3.125 mg tablet 6.25 mg PO BID 05/03/24 07/12/24 clopidogrel 75 mg tablet 75 mg PO QAM 05/03/24 07/12/24 gabapentin 300 mg capsule 300 mg PO TID 05/03/24 07/12/24 insulin glargine 100 unit/mL (3 18 unit subcut QAM 05/03/24 07/12/24 mL) subcutaneous pen (Lantus Solostar U-100 Insulin) lisinopril 40 mg tablet 40 mg PO QAM 05/03/24 07/12/24 metoclopramide HCl 5 mg tablet 5 mg PO QID PRN Nausea And Vomiting 05/03/24 07/12/24 nifedipine 30 mg tablet,extended 30 mg PO QAM 05/03/24 07/12/24 release omeprazole 20 mg capsule,delayed 20 mg PO DAILYBB 05/03/24 07/12/24 release sennosides 8.6 mg-docusate sodium 1 tab PO DAILY PRN Constipation 05/03/24 07/12/24 50 mg tablet (Senexon-S) spironolactone 25 mg tablet 25 mg PO QAM 05/03/24 07/12/24 cholecalciferol (vitamin D3) 25 25 mcg PO QAM 07/12/24 07/12/24 mcg (1,000 unit) chewable tablet (Vitamin D3) gabapentin 100 mg capsule 100 mg PO HS 07/12/24 07/12/24 insulin aspart U-100 100 unit/mL 6 unit subcut AC 07/12/24 07/12/24 (3 mL) subcutaneous pen (Novolog FlexPen U-100 Insulin aspart) levothyroxine 137 mcg tablet 137 mcg PO DAILYBB 07/12/24 07/12/24 rosuvastatin 20 mg tablet 20 mg PO QAM 07/12/24 07/12/24 sertraline 100 mg tablet 200 mg PO QAM 07/12/24 07/12/24 tramadol 50 mg tablet 50 mg PO Q8 PRN Pain 07/12/24 07/12/24 Results & Data (ED) Vital Signs Vital Signs - 24 hr 07/12/24 12:09 07/12/24 12:09 07/12/24 12:09 Temperature 36.6 C Temperature Source Oral Pulse Rate 84 Pulse Rate [Right Finger] Pulse Strength [Right Femoral] Normal Respiratory Rate 16 Respiratory Effort / Characteristics Non-Labored Spontaneous Respiratory Depth Normal Respiratory Pattern Blood Pressure [Right Arm] Blood Pressure Mean [Right Arm] Blood Pressure Position [Right Arm] Pulse Oximetry 94 93 Oxygen Delivery Method Room Air Room Air Room Air Oxygen Flow Rate Sepsis Recent Fever Within 48 Hours No Sepsis New/Unexplained Change in Mental Status N/A Sepsis Action Taken by Nursing No Action Required 07/12/24 12:16 07/12/24 12:39 07/12/24 12:52 Temperature Temperature Source Pulse Rate 86 84 Pulse Rate [Right Finger] 82 Pulse Strength [Right Femoral] Respiratory Rate 16 16 Respiratory Effort / Characteristics Non-Labored Spontaneous Respiratory Depth Normal Respiratory Pattern Regular Blood Pressure [Right Arm] 190/91 H Blood Pressure Mean [Right Arm] 124 Blood Pressure Position [Right Arm] Pulse Oximetry 91 93 Oxygen Delivery Method Room Air Room Air Oxygen Flow Rate Sepsis Recent Fever Within 48 Hours Sepsis New/Unexplained Change in Mental Status Sepsis Action Taken by Nursing 07/12/24 12:58 07/12/24 12:58 07/12/24 13:26 Temperature 36.5 C 36.5 C 36.6 C Temperature Source Krause Cath ( Temp Sensing) Krause Cath ( Temp Sensing) Krause Cath ( Temp Sensing) Pulse Rate Pulse Rate [Right Finger] 82 82 80 Pulse Strength [Right Femoral] Respiratory Rate 18 18 10 L Respiratory Effort / Characteristics Non-Labored Spontaneous Non-Labored Spontaneous Non-Labored Spontaneous Respiratory Depth Normal Normal Normal Respiratory Pattern Regular Regular Blood Pressure [Right Arm] 185/92 H 185/92 H 172/84 H Blood Pressure Mean [Right Arm] 123 123 113 Blood Pressure Position [Right Arm] Pulse Oximetry 93 93 95 Oxygen Delivery Method Room Air Room Air Room Air Oxygen Flow Rate Sepsis Recent Fever Within 48 Hours Sepsis New/Unexplained Change in Mental Status Sepsis Action Taken by Nursing 07/12/24 14:13 07/12/24 14:13 07/12/24 14:19 Temperature 37.1 C Temperature Source Oral Pulse Rate Pulse Rate [Right Finger] 79 80 Pulse Strength [Right Femoral] Respiratory Rate 17 16 Respiratory Effort / Characteristics Non-Labored Spontaneous Respiratory Depth Normal Normal Respiratory Pattern Regular Regular Blood Pressure [Right Arm] 182/87 H Blood Pressure Mean [Right Arm] 118 Blood Pressure Position [Right Arm] Pulse Oximetry 94 90 95 Oxygen Delivery Method Room Air Room Air Room Air Oxygen Flow Rate Sepsis Recent Fever Within 48 Hours Sepsis New/Unexplained Change in Mental Status Sepsis Action Taken by Nursing 07/12/24 14:32 07/12/24 15:00 Temperature Temperature Source Pulse Rate Pulse Rate [Right Finger] 80 79 Pulse Strength [Right Femoral] Respiratory Rate 16 17 Respiratory Effort / Characteristics Respiratory Depth Respiratory Pattern Blood Pressure [Right Arm] 159/80 H 152/82 H Blood Pressure Mean [Right Arm] 106 105 Blood Pressure Position [Right Arm] Lying Lying Pulse Oximetry 98 100 Oxygen Delivery Method Nasal Cannula Nasal Cannula Oxygen Flow Rate 2 2 Sepsis Recent Fever Within 48 Hours Sepsis New/Unexplained Change in Mental Status Sepsis Action Taken by Nursing Laboratory Data 07/12/24 12:19 07/12/24 12:19 Lab Results 07/12/24 07/12/24 07/12/24 Range/Units 12:19 13:15 14:08 WBC 5.65 (4.8-10.8) K/ul RBC 3.94 L (4.20-5.40) M/uL Hgb 11.4 L (12.0-16.0) g/dl Hct 33.9 L (37.0-47.0) % MCV 86.0 (80.0-100.0) fL MCH 28.9 (25.0-34.0) pg MCHC 33.6 (32.0-36.0) g/dL RDW Std Deviation 38.1 (36.4-46.3) fL RDW Coeff of Dia 12.2 (11.5-14.5) % Plt Count 82 L (130-400) K/uL MPV 9.6 (9.4-12.4) fL Immature Gran % (Auto) 0.5 % Neut % (Auto) 75.5 % Lymph % (Auto) 17.7 % [place] % (Auto) 5.0 % Eos % (Auto) 0.9 % Baso % (Auto) 0.4 % Neut # (Auto) 4.27 (1.40-6.50) K/uL Lymph # (Auto) 1.00 L (1.20-3.40) K/uL [place] # (Auto) 0.28 (0.11-0.59) K/uL Eos # (Auto) 0.05 (0.00-0.50) K/uL Baso # (Auto) 0.02 (0.00-0.20) K/uL Immature Gran # (Auto) 0.03 (0.01-0.20) K/uL PT Cancelled 11.1 INR Cancelled 1.0 APTT Cancelled 23 PTT Ratio Cancelled 0.9 Sodium 137 (136-145) mmol/L Potassium 4.6 (3.5-5.1) mmol/L Chloride 105 (98-107) mmol/L Carbon Dioxide 25 (21-32) mmol/L Anion Gap 7 (3-11) BUN 21 (6-23) mg/dl Creatinine 0.75 (0.6-1.2) mg/dl Est Cr Clr Drug Dosing 72.6 ml/min eGFR 86.67 BUN/Creatinine Ratio 28.0 H (10-20) Glucose 360 H* (70-99(Fasting)) mg/dl Calcium 8.6 (8.6-10.3) mg/dl Total Bilirubin 0.6 (0.2-1.0) mg/dl AST 25 (13-39) U/L ALT 18 (7-52) U/L Alkaline Phosphatase 115 H (34-104) U/L Total Creatine Kinase 53 (26-192) U/L Troponin I High Sens 8.3 (0-14) pg/ml Total Protein 7.1 (6.0-8.3) gm/dl Albumin 4.0 (3.4-5.0) gm/dl Globulin 3.1 (2.5-4.0) gm/dl Albumin/Globulin Ratio 1.3 (0.9-2) Lipase 51 (11-82) U/L Urine Color Yellow Urine Appearance Clear (Clear) Urine pH 6.5 (4.5-7.5) Ur Specific [place] 1.015 (1.000-1.030) Urine Protein Negative (Negative) Urine Glucose (UA) 3+ H (Negative) Urine Ketones Negative (Negative) Urine Blood Trace H (Negative) Urine Nitrite Negative (Negative) Urine Bilirubin Negative (Negative) Urine Urobilinogen Negative (Negative) Ur Leukocyte Esterase Negative (Negative) Urine WBC (Auto) 0-5 (0-5) /hpf Urine RBC (Auto) 3-5 H (0-2) /hpf U Hyaline Cast (Auto) 0-2 (0-2) /lpf U Epithel Cells (Auto) 0-2 (0-2) /hpf Urine Bacteria (Auto) None Seen (None Seen) Administered Medications Acetaminophen (Acetaminophen 500 Mg Tab) 1,000 mg PO TID [facility] Stop: 08/11/24 16:10 Last Admin: 07/12/24 17:22 Dose: 1,000 mg Documented By: LEA Carvedilol (Carvedilol 3.125 Mg Tab) 3.125 mg PO BIDM [facility] Stop: 08/11/24 16:59 Last Admin: 07/12/24 18:13 Dose: 3.125 mg Documented By: LEA Insulin Aspart (Insulin Aspart Per Unit Charge) 0 units SC ACHS [facility] Stop: 08/11/24 16:29 Last Admin: 07/12/24 18:13 Dose: Not Given Documented By: LEA Morphine Sulfate (Morphine Sulfate 2 Mg/Ml Carp) 2 mg IV Q2H PRN PRN Reason: Mod-Sev Pain (Scale 4-10) Stop: 07/26/24 17:04 Last Admin: 07/12/24 19:09 Dose: 2 mg Documented By: PEDRITO Discontinued Medications Diphtheria/Pertussis/Tetanus Vacc (Diphther/Tetan/Pertus Vaccine (Tdap, Adol/Adult) 0.5ml) 0.5 ml IM .ONCE ONE Stop: 07/12/24 13:02 Last Admin: 07/12/24 13:19 Dose: 0.5 ml Documented By: DIPTI Hydromorphone HCl (Hydromorphone Inj 1 Mg/Ml Syringe) 1 mg IV NOW STA Stop: 07/12/24 12:15 Last Admin: 07/12/24 12:21 Dose: 1 mg Documented By: JOSE MARIA Hydromorphone HCl (Hydromorphone Inj 1 Mg/Ml Syringe) 1 mg IV NOW STA Stop: 07/12/24 13:17 Last Admin: 07/12/24 13:20 Dose: 1 mg Documented By: DIPTI Sodium Chloride (Nss) 1,000 mls @ 999 mls/hr IV .Q1H1M ONE Stop: 07/12/24 13:14 Last Infusion: 07/12/24 13:48 Dose: Infused Documented By: Admin: 07/12/24 12:24 Dose: 999 mls/hr Documented By: JOSE MARIA Cefazolin Sodium (Ancef 2000mg) 2,000 mg in 15 mls @ 3.75 mls/min IV NOW STA Stop: 07/12/24 13:04 Last Admin: 07/12/24 13:11 Dose: 3.75 mls/min Documented By: OJSE MARIA Lorazepam (Lorazepam 1 Mg/1 Ml Syr Ed Inj Use) 0.5 mg IV ONE STA Stop: 07/12/24 14:00 Last Admin: 07/12/24 14:11 Dose: 0.5 mg Documented By: REGAN Morphine Sulfate (Morphine Sulfate 4 Mg/Ml 1 Ml Carp\Vial) 4 mg IV NOW STA Stop: 07/12/24 17:06 Last Admin: 07/12/24 17:14 Dose: 4 mg Documented By: LEA Imaging Data Radiologist's Impression: Chest X-Ray 07/12/24 12:13 XR chest 1V portable CLINICAL HISTORY: Trauma COMPARISON STUDY: Chest radiograph and left rib series June 26, 2024. FINDINGS: Lung volumes are normal. Lungs are clear. There is no pneumothorax or pleural effusion. Cardiac size is stable. Mediastinal contours are stable. There is no evidence for pulmonary edema. IMPRESSION: No acute cardiopulmonary findings. ACT 112: Negative or not required by law. Electronically signed by: Mike Silverman M.D. 07/12/2024 2:00 PM Pelvis X-Ray 07/12/24 12:13 XR pelvis 1-2V routine CLINICAL HISTORY: Trauma COMPARISON: CT of the abdomen and pelvis June 23, 2024. FINDINGS: There is an acute intertrochanteric fracture of the right femur. The component of the fracture extending through the greater trochanter is slightly displaced. Stable postoperative findings following left femoral internal fixation. There are no acute pelvic or proximal left femoral fracture. Sacroiliac joints and symphysis priors are intact. IMPRESSION: Acute minimally displaced intertrochanteric fracture of the right femur. ACT 112: Negative or not required by law. Electronically signed by: Mike Silverman M.D. 07/12/2024 2:07 PM Abdomen/Pelvis CT 07/12/24 12:14 CT OF THE ABDOMEN AND PELVIS WITHOUT CONTRAST CLINICAL HISTORY: trauma COMPARISON STUDY: CT of the abdomen and pelvis June 23, 2024. TECHNIQUE: Axial images of the abdomen and pelvis were obtained without IV contrast. Images were reviewed in the axial, sagittal, and coronal planes. Automated exposure control was utilized for the study. A dose lowering technique was utilized adhering to the principles of ALARA. FINDINGS: Several healing left lower rib fractures are present. There are numerous old bilateral rib fractures. No hemoperitoneum or pneumoperitoneum is present. There is a Krause balloon within the bladder. The solid abdominal viscera are suboptimally assessed on unenhanced exam but there is no evidence for traumatic injury to the liver, spleen, adrenal glands, kidneys or pancreas. There is no biliary ductal dilatation status post cholecystectomy. The liver is cirrhotic. Splenomegaly is unchanged. There is no hydronephrosis. There is no free fluid. The caliber of small and large bowel is normal. There is no lymphadenopathy. The appendix is normal. Left femoral internal fixation is noted. There is an acute minimally displaced intertrochanteric fracture of the right femur. There are old thoracolumbar spine compression fractures. No acute lumbar spine fractures are present. There are no pelvic fractures. No acute proximal left femoral fracture is present. IMPRESSION: 1. Acute minimally displaced intertrochanteric fracture of the right femur. 2. No evidence for traumatic injury to the solid abdominal viscera on unenhanced exam. 3. Cirrhotic liver. Stable splenomegaly. ACT 112: Negative or not required by law. Electronically signed by: Mike Silverman M.D. 07/12/2024 2:[address] 07/12/24 12:14 CT OF THE CERVICAL SPINE WITHOUT CONTRAST CLINICAL HISTORY: Trauma COMPARISON STUDY: Cervical spine CT July 04, 2022 and cervical spine radiograph January 03, 2024. TECHNIQUE: Helical axial images of the cervical spine were obtained without IV contrast. Sagittal and coronal reconstructions were viewed. Automated exposure control was utilized for the study. A dose lowering technique was utilized adhering to the principles of ALARA. FINDINGS: Alignment of the cervical spine is anatomic. Vertebral body heights are maintained. No acute cervical spine fracture or subluxation is present. There is no prevertebral edema. Facet joints are intact. Moderate multilevel degenerative disc disease and facet arthrosis is present. IMPRESSION: No acute cervical spine fracture or subluxation. ACT 112: Negative or not required by law. Electronically signed by: Mike Silverman M.D. 07/12/2024 1:[address] 07/12/24 12:14 CT OF THE CHEST WITHOUT IV CONTRAST CLINICAL HISTORY: trauma COMPARISON STUDY: Chest CT June 19, 2024. Chest radiograph and left rib series June 26, 2024. TECHNIQUE: Axial images of the chest were obtained without IV contrast. Images were reviewed in the axial, sagittal, and coronal planes. IV contrast was not administered for this examination. Automated exposure control was utilized for the study. A dose lowering technique was utilized adhering to the principles of ALARA. FINDINGS: Thoracic aorta is suboptimally assessed on unenhanced exam but there is no evidence for traumatic injury. There is no intramural hematoma. There is no mediastinal hematoma. Cardiomegaly is again noted. There is no pericardial effusion. No pneumothorax or pleural effusion is present. There is no pulmonary contusion. There are numerous old bilateral rib fractures. There are several healing left-sided rib fractures. No acute rib fractures are identified. There are old thoracolumbar spine compression fractures. No acute thoracic spine fractures are present. Abdomen and pelvis CT will be reported separately. Splenomegaly is unchanged. The gallbladder is surgically absent. IMPRESSION: 1. No acute traumatic findings within the chest on unenhanced exam. 2. Numerous old bilateral rib fractures. Several healing left-sided rib fractures. No acute rib fractures. 3. Old thoracolumbar spine compression fractures. ACT 112: Negative or not required by law. Electronically signed by: iMke Silverman M.D. 07/12/2024 1:[address] 07/12/24 12:14 CT OF THE HEAD WITHOUT CONTRAST CLINICAL HISTORY: Trauma COMPARISON STUDY: MRI of the brain May 04, [address] June 19, 2024. TECHNIQUE: Helical axial images of the head were obtained without IV contrast. Automated exposure control was utilized for the study. A dose lowering technique was utilized adhering to the principles of ALARA. FINDINGS: No acute intracranial hemorrhage, midline shift or mass effect is present. White matter hypodensities are unchanged and favor small vessel disease. The ventricular system is unremarkable. The basal cisterns are patent. No extra-axial collections are present. There are no findings to suggest acute dural sinus thrombosis or acute territorial infarct. No significant calvarial abnormalities are present. Visualized portions of the sinuses and mastoid air cells are clear. IMPRESSION: 1. No acute intracranial findings. 2. No calvarial fractures. ACT 112: Negative or not required by law. Electronically signed by: Mike Silverman M.D. 07/12/2024 1:41 PM Femur X-Ray 07/12/24 12:17 XR femur RT 2V routine CLINICAL HISTORY: fall, right thigh pain COMPARISON: CT of the abdomen and pelvis June 23, 2024. FINDINGS: There is an acute minimally displaced intertrochanteric fracture of the right femur. No distal right femoral fracture is present. Right knee arthroplasty is intact. There is no periprosthetic fracture or lucency. IMPRESSION: 1. Acute minimally displaced intertrochanteric fracture of the right femur. 2. Intact total right knee arthroplasty. No periprosthetic fracture. ACT 112: Negative or not required by law. Electronically signed by: Mike Silverman M.D. 07/12/2024 2:08 PM Discharge Plan Visit Data Chief Complaint: Trauma ED Provider: Burke Gaston Discharge Problem: Closed fracture of right hip, Acute hyperglycemia, Ground-level fall Patient Disposition: Admitted As Inpatient Discharge Instructions Interventions: ED Discharge Assessment Last Done: 07/12/24 15:33 Discharge Problem: Closed fracture of right hip Qualifiers: Encounter type: initial encounter Qualified Code(s): S72.001A - Fracture of unspecified part of neck of right femur, initial encounter for closed fracture
[2024-07-12] MEDS: HYDROmorphone INJ 1 MG/ML SYRINGE IV STA ×2 (12:21→13:20)
[2024-07-12] MEDS: SODIUM CHLORIDE 0.9% 1,000 ML IV ONE (12:24)
[2024-07-12] MEDS: ceFAZolin 2000MG 2,000 MG/15 ML SYR IV STA (13:11)
[2024-07-12 13:14] LABS: Basophils # (auto) 0.02 K/uL (0.00-0.20); Basophils % (auto) 0.4 %; Eosinophils # (auto) 0.05 K/uL (0.00-0.50); Eosinophils % (auto) 0.9 %; Hematocrit (blood only) 33.9 % (37.0-47.0); Hemoglobin 11.4 g/dl (12.0-16.0); Immature Granulocytes # (auto) 0.03 K/uL (0.01-0.20); Immature Granulocytes % (auto) 0.5 %; Lymphocytes % (auto) 17.7 %; Mean Corpuscular Hemoglobin 28.9 pg (25.0-34.0); Mean Corpuscular Hgb Conc 33.6 g/dL (32.0-36.0); Mean Platelet Volume 9.6 fL (9.4-12.4); Monocytes # (auto) 0.28 K/uL (0.11-0.59); Neutrophils # (auto) 4.27 K/uL (1.40-6.50); Neutrophils % (auto) 75.5 %; Platelet Count 82 K/uL (130-400); RDW Coefficient of Variation 12.2 % (11.5-14.5); RDW Standard Deviation 38.1 fL (36.4-46.3); Red Blood Count 3.94 M/uL (4.20-5.40); White Blood Count 5.65 K/ul (4.8-10.8)
[2024-07-12] MEDS: DIPHTHER/TETAN/PERTUS Vaccine (Tdap, Adol/Adult) 0.5mL IM ONE (13:19)
[2024-07-12 13:37] LABS: Albumin Globulin Ratio 1.3 (0.9-2); Bilirubin,Total 0.6 mg/dl (0.2-1.0); Calcium 8.6 mg/dl (8.6-10.3); Creatinine Clr Calc Pharmacy 72.6 ml/min; Globulin 3.1 gm/dl (2.5-4.0); Potassium 4.6 mmol/L (3.5-5.1); Total Protein 7.1 gm/dl (6.0-8.3); Troponin I High Sensitivity 8.3 pg/ml (0-14)
--- NOTE | 2024-07-12 13:44 | CT Scan Report ---
CT OF THE HEAD WITHOUT CONTRAST CLINICAL HISTORY: Trauma COMPARISON STUDY: MRI of the brain May 04, [address] June 19, 2024. TECHNIQUE: Helical axial images of the head were obtained without IV contrast. Automated exposure con trol was utilized for the study. A dose lowering technique was utilized adhering to the principles o f ALARA. FINDINGS: No acute intracranial hemorrhage, midline shift or mass effect is present. White matter hyp odensities are unchanged and favor small vessel disease. The ventricular system is unremarkable. The basal cisterns are patent. No extra-axial collections are present. There are no findings to suggest a cute dural sinus thrombosis or acute territorial infarct. No significant calvarial abnormalities are present. Visualized portions of the sinuses and mastoid air cells are clear. IMPRESSION: 1. No acute intracranial findings. 2. No calvarial fractures. ACT 112: Negative or not required by law. Electronically signed by: Mike Silverman M.D. 07/12/2024 1:41 PM
--- NOTE | 2024-07-12 13:47 | CT Scan Report ---
CT OF THE CERVICAL SPINE WITHOUT CONTRAST CLINICAL HISTORY: Trauma COMPARISON STUDY: Cervical spine CT July 04, 2022 and cervical spine radiograph January 03, 2024. TECHNIQUE: Helical axial images of the cervical spine were obtained without IV contrast. Sagittal a nd coronal reconstructions were viewed. Automated exposure control was utilized for the study. A do se lowering technique was utilized adhering to the principles of ALARA. FINDINGS: Alignment of the cervical spine is anatomic. Vertebral body heights are maintained. No acut e cervical spine fracture or subluxation is present. There is no prevertebral edema. Facet joints are intact. Moderate multilevel degenerative disc disease and facet arthrosis is present. IMPRESSION: No acute cervical spine fracture or subluxation. ACT 112: Negative or not required by law. Electronically signed by: Mike Silverman M.D. 07/12/2024 1:46 PM
[2024-07-12 13:50] LABS: Appearance Urine Clear (Clear); Bacteria Urine Automated None Seen (None Seen); Bilirubin Urine Negative (Negative); Blood Urine Trace (Negative); Cast Urine Automated 0-2 /lpf (0-2); Color Urine Yellow; Epithelial Cell Urine Auto 0-2 /hpf (0-2); Glucose Urine UA 3+ (Negative); Ketones Urine Negative (Negative); Leukocyte Esterase Urine Negative (Negative); Nitrite Urine Negative (Negative); Protein Urine Negative (Negative); Specific Gravity Urine 1.015 (1.000-1.030); Urobilinogen Urine Negative (Negative); WBC Urine Automated 0-5 /hpf (0-5); pH Urine 6.5 (4.5-7.5)
--- NOTE | 2024-07-12 14:00 | CT Scan Report ---
CT OF THE CHEST WITHOUT IV CONTRAST CLINICAL HISTORY: trauma COMPARISON STUDY: Chest CT June 19, 2024. Chest radiograph and left rib series June 26, 2024. TECHNIQUE: Axial images of the chest were obtained without IV contrast. Images were reviewed in the axial, sagittal, and coronal planes. IV contrast was not administered for this examination. Automat ed exposure control was utilized for the study. A dose lowering technique was utilized adhering to t he principles of ALARA. FINDINGS: Thoracic aorta is suboptimally assessed on unenhanced exam but there is no evidence for tr aumatic injury. There is no intramural hematoma. There is no mediastinal hematoma. Cardiomegaly is ag ain noted. There is no pericardial effusion. No pneumothorax or pleural effusion is present. There is no pulmonary contusion. There are numerous old bilateral rib fractures. There are several healing le ft-sided rib fractures. No acute rib fractures are identified. There are old thoracolumbar spine comp ression fractures. No acute thoracic spine fractures are present. Abdomen and pelvis CT will be repor edwardo separately. Splenomegaly is unchanged. The gallbladder is surgically absent. IMPRESSION: 1. No acute traumatic findings within the chest on unenhanced exam. 2. Numerous old bilateral rib fractures. Several healing left-sided rib fractures. No acute rib fract ures. 3. Old thoracolumbar spine compression fractures. ACT 112: Negative or not required by law. Electronically signed by: Mike Silverman M.D. 07/12/2024 1:57 PM
--- NOTE | 2024-07-12 14:01 | XRay Report ---
XR chest 1V portable CLINICAL HISTORY: Trauma COMPARISON STUDY: Chest radiograph and left rib series June 26, 2024. FINDINGS: Lung volumes are normal. Lungs are clear. There is no pneumothorax or pleural effusion. Car diac size is stable. Mediastinal contours are stable. There is no evidence for pulmonary edema. IMPRESSION: No acute cardiopulmonary findings. ACT 112: Negative or not required by law. Electronically signed by: Mike Silverman M.D. 07/12/2024 2:00 PM
--- NOTE | 2024-07-12 14:08 | CT Scan Report ---
CT OF THE ABDOMEN AND PELVIS WITHOUT CONTRAST CLINICAL HISTORY: trauma COMPARISON STUDY: CT of the abdomen and pelvis June 23, 2024. TECHNIQUE: Axial images of the abdomen and pelvis were obtained without IV contrast. Images were revi ewed in the axial, sagittal, and coronal planes. Automated exposure control was utilized for the christopher dy. A dose lowering technique was utilized adhering to the principles of ALARA. FINDINGS: Several healing left lower rib fractures are present. There are numerous old bilateral rib fractures. No hemoperitoneum or pneumoperitoneum is present. There is a Krause balloon within the blad sarina. The solid abdominal viscera are suboptimally assessed on unenhanced exam but there is no evidenc e for traumatic injury to the liver, spleen, adrenal glands, kidneys or pancreas. There is no biliary ductal dilatation status post cholecystectomy. The liver is cirrhotic. Splenomegaly is unchanged. Th ere is no hydronephrosis. There is no free fluid. The caliber of small and large bowel is normal. The re is no lymphadenopathy. The appendix is normal. Left femoral internal fixation is noted. There is a n acute minimally displaced intertrochanteric fracture of the right femur. There are old thoracolumba r spine compression fractures. No acute lumbar spine fractures are present. There are no pelvic fract ures. No acute proximal left femoral fracture is present. IMPRESSION: 1. Acute minimally displaced intertrochanteric fracture of the right femur. 2. No evidence for traumatic injury to the solid abdominal viscera on unenhanced exam. 3. Cirrhotic liver. Stable splenomegaly. ACT 112: Negative or not required by law. Electronically signed by: Mike Silverman M.D. 07/12/2024 2:06 PM
--- NOTE | 2024-07-12 14:09 | XRay Report ---
XR pelvis 1-2V routine CLINICAL HISTORY: Trauma COMPARISON: CT of the abdomen and pelvis June 23, 2024. FINDINGS: There is an acute intertrochanteric fracture of the right femur. The component of the frac ture extending through the greater trochanter is slightly displaced. Stable postoperative findings fo llowing left femoral internal fixation. There are no acute pelvic or proximal left femoral fracture. Sacroiliac joints and symphysis priors are intact. IMPRESSION: Acute minimally displaced intertrochanteric fracture of the right femur. ACT 112: Negative or not required by law. Electronically signed by: Mike Silverman M.D. 07/12/2024 2:07 PM
--- NOTE | 2024-07-12 14:10 | XRay Report ---
XR femur RT 2V routine CLINICAL HISTORY: fall, right thigh pain COMPARISON: CT of the abdomen and pelvis June 23, 2024. FINDINGS: There is an acute minimally displaced intertrochanteric fracture of the right femur. No di stal right femoral fracture is present. Right knee arthroplasty is intact. There is no periprosthetic fracture or lucency. IMPRESSION: 1. Acute minimally displaced intertrochanteric fracture of the right femur. 2. Intact total right knee arthroplasty. No periprosthetic fracture. ACT 112: Negative or not required by law. Electronically signed by: Mike Silverman M.D. 07/12/2024 2:08 PM
[2024-07-12] MEDS: LORazepam 1 MG/1 ML SYR ED Inj Use IV STA (14:11)
[2024-07-12 15:12] LABS: Partial Thromboplastin Ratio 0.9; Partial Thromboplastin Time 23 Seconds (21-31); Prothrombin Time 11.1 Seconds (9.0-12.0)
--- NOTE | 2024-07-12 15:12 | History & Physical Report ---
Date of Service July 12, 2024 Assessment & Plan (1) Displaced intertrochanteric fracture of right femur, initial encounter for closed fracture: (2) Contusion of right chest wall: (3) Abrasion, right knee, initial encounter: (4) Hyperglycemia due to type 2 diabetes mellitus: (5) Irritable bowel syndrome with constipation: (6) Hypothyroidism: (7) 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: (8) Chronic idiopathic thrombocytopenia: Plan Patient presents to the hospital after tripping on a step and falling in her driveway. Evaluation revealed right intertrochanteric hip fracture. Patient requires hospital level care for specialty consultation, pain control and possible surgical intervention. High risk for further injury and decompensation if not cared for in the hospital Admit to the MedSurg unit Pain control Consult orthopedics Monitor glucose and cover with short acting insulin, continue her long-acting insulin at a lower dose since patient may be n.p.o. 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 Was taking out some trash into her garage when upon returning into the house she tripped on the stair and fell to the ground. She was unable to get up. Immediate pain in the hip and on her right chest. She laid on the ground outside for approximately 1 hour until somebody driving by saw her and came and assisted her. Brought to the emergency room. In the emergency room initially hypothermic and easily rewarmed. Extensive trauma imaging ensued and showed a right intertrochanteric fracture. Referred to our service for further management. At time of my evaluation patient's pain is improved. Hypothermia has resolved. She denies any shortness of breath. She states otherwise she has been feeling well. No fever or chills. No new problems with her bowels or bladder. Has been eating and drinking fairly well at home. Has previous history of left hip surgery performed by Dr. Gooden. Allergies Allergy/AdvReac Type Severity Reaction Status Date / Time adhesive Allergy Intermediate RASH Verified 02/22/24 19:12 Iodinated Contrast Media Allergy Intermediate burning Verified 02/22/24 19:12 and aching in veins latex Allergy Intermediate RASH Verified 02/22/24 19:12 Penicillins Allergy Intermediate n/v, rash Verified 02/22/24 19:12 Anesthetics - Amide Type - AdvReac Intermediate Vomiting Verified 02/22/24 19:12 Select A [Anesthetics - Amide Type] Anesthetics - Juju Type- AdvReac Intermediate Vomiting Verified 02/22/24 19:12 Parabens hepatitis B virus vaccine AdvReac Intermediate CHEST Verified 02/22/24 19:12 TIGHTNESS WITH 2ND DOSE. ketorolac AdvReac Intermediate ITCHING. Verified 02/22/24 19:12 tromethamine AdvReac Intermediate ITCHING. Verified 02/22/24 19:12 aspirin AdvReac Unknown CONTRAINDICATED---currently Verified 02/22/24 19:12 with gastric ulcer, per pt Home Medications Medication Instructions Recorded Confirmed Type bupropion HCl 100 mg tablet 100 mg PO QPM 05/03/24 05/03/24 History bupropion HCl 100 mg tablet 150 mg PO DAILYBB 05/03/24 05/03/24 History carvedilol 3.125 mg tablet 3.125 mg PO BID 05/03/24 05/03/24 History clopidogrel 75 mg tablet 75 mg PO DAILY 05/03/24 05/03/24 History gabapentin 300 mg capsule 300 mg PO TID 05/03/24 05/03/24 History insulin glargine 100 unit/mL (3 15 unit subcut BID 05/03/24 05/03/24 History mL) subcutaneous pen (Lantus Solostar U-100 Insulin) levothyroxine 137 mcg tablet 137 mcg PO DAILY 05/03/24 05/03/24 History lisinopril 40 mg tablet 40 mg PO DAILY 05/03/24 05/03/24 History metoclopramide HCl 5 mg tablet 5 mg PO QID PRN Nausea And Vomiting 05/03/24 05/03/24 History nifedipine 30 mg tablet,extended 30 mg PO DAILY 05/03/24 05/03/24 History release omeprazole 20 mg capsule,delayed 20 mg PO DAILY 05/03/24 05/03/24 History release rosuvastatin 20 mg tablet 20 mg PO DAILY 05/03/24 05/03/24 History sennosides 8.6 mg-docusate sodium 1 tab PO DAILY 05/03/24 05/03/24 History 50 mg tablet (Senexon-S) sertraline 100 mg tablet 200 mg PO DAILY 05/03/24 05/03/24 History spironolactone 25 mg tablet 25 mg PO DAILY 05/03/24 05/03/24 History insulin aspart U-100 100 unit/mL 5 unit (0.05 mL) subcut TIDWMEAL 05/10/24 05/03/24 Rx (3 mL) subcutaneous pen (Novolog #0 mL FlexPen U-100 Insulin aspart) lidocaine 5 % topical patch 1 patch topical DAILY #15 ea 06/23/24 Rx (Lidoderm) tramadol 50 mg tablet 50 mg PO Q8H PRN pain #10 tabs 06/23/24 Rx oxycodone 5 mg tablet 5 mg PO Q8H PRN pain #15 tabs 06/26/24 Rx Past Med/Surg History Problem List (Updated 07/12/24 @ 15:14 by Santino Lopze, ) Chronic idiopathic thrombocytopenia Abrasion, right knee, initial encounter Contusion of right chest wall Displaced intertrochanteric fracture of right femur, initial encounter for closed fracture Nausea (Acute) Headache (Acute) Dizziness Dehydration (Acute) Hyperglycemia due to type 2 diabetes mellitus (Acute) Hyperglycemia Low back pain Other cervical disc degeneration, mid-cervical region, unspecified level Neck pain Degenerative arthritis of lumbar spine Irritable bowel syndrome with constipation Diabetic gastroparesis Chronic generalized abdominal pain Suspected UTI Asymptomatic hypertensive urgency Constipation (Acute) Acute UTI (Acute) Nausea & vomiting (Acute) Hernia, umbilical (Acute) Abdominal pain (Acute) Vomiting (Acute) SBO (small bowel obstruction) (Acute) Lumbar radiculopathy Degenerative disc disease, lumbar Chest pain Precordial chest pain (Acute) Ambulatory dysfunction (Acute) Vomiting (Acute) Headache (Acute) Accidental medication overdose (Acute) Hyperglycemia (Acute) Hemarthrosis involving knee joint Contusion of bone Intertrochanteric fracture of left femur Hypothyroidism Closed left humeral fracture (Acute) Acute pain of left hip (Acute) Contusion of rib on left side (Acute) Inability to ambulate due to hip (Acute) Status post fall (Acute) History of CVA (cerebrovascular accident) x2 1990s History of pulmonary embolism Ambulatory dysfunction Fall (Acute) Multiple fractures of ribs of right side (Acute) Fracture of toe of right foot (Acute) Cellulitis of leg, right (Acute) Fibula fracture Distal radius fracture, left Closed fracture of radial styloid (Acute) Neuropathy (Chronic) Osteoporosis (Chronic) 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 (Chronic) Hypothyroidism (Chronic) Anxiety (Chronic) Depression (Chronic) DVT (deep venous thrombosis) (Chronic) Dyslipidemia (Chronic) DM type 2 (diabetes mellitus, type 2) (Chronic) insulin dependent Hypertension (Chronic) Lumbar transverse process fracture (Chronic) Multiple rib fractures (Chronic) Thoracic compression fracture (Chronic) Medical History Cellulitis of great toe of right foot Cellulitis of foot, right Surgical History History of oophorectomy S/P left knee arthroscopy H/O dilation and curettage H/O abdominal surgery small bowel repair lysis of adhesions History of hysterectomy History of cholecystectomy History of tubal ligation Family History Father Lung cancer Diabetes Sister Stomach cancer Social History Smoking Status: Never smoker Tobacco Type: Cigarettes Second Hand Exposure: No; Hx Alcohol Use: No Hx Substance Use: No Preferred Language: [place] Communication Ability: Effective Visual Impairment: No Limitations Hearing Ability: Normal 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 Sclera clear Neck: Soft, no adenopathy Lungs: Clear to auscultation, decreased, no wheezes rales or rhonchi CV: S1-S2, regular Abdomen: Soft, nontender, nondistended Extremities: 1+ pretibial edema Musculoskeletal: Right lower extremity significant tenderness to any type of motion., Abrasion right knee Neuro: No focal deficits, generalized weakness Psych: Cooperative, normal mood Results & Data Results & Data Vital Signs (Past 12 Hours) Vital Signs Temp Pulse Pulse Resp BP Pulse Ox O2 Del Method 07/12/24 14:32 80 16 159/80 H 98 Nasal Cannula 07/12/24 14:19 95 Room Air 07/12/24 14:13 80 16 90 Room Air 07/12/24 14:13 37.1 C 79 17 182/87 H 94 Room Air 07/12/24 13:26 36.6 C 80 10 L 172/84 H 95 Room Air 07/12/24 12:58 36.5 C 82 18 185/92 H 93 Room Air 07/12/24 12:58 36.5 C 82 18 185/92 H 93 Room Air 07/12/24 12:52 84 07/12/24 12:39 82 16 190/91 H 93 Room Air 07/12/24 12:16 86 16 91 Room Air 07/12/24 12:09 93 Room Air 07/12/24 12:09 Room Air 07/12/24 12:09 36.6 C 84 16 94 Room Air O2 Flow Rate 07/12/24 14:32 2 07/12/24 14:19 07/12/24 14:13 07/12/24 14:13 07/12/24 13:26 07/12/24 12:58 07/12/24 12:58 07/12/24 12:52 07/12/24 12:39 07/12/24 12:16 07/12/24 12:09 07/12/24 12:09 07/12/24 12:09 Diagnostic Findings Reviewed imaging, laboratory and diagnostic studies. Pertinent findings as below. Personally reviewed chest x-ray, no acute cardiopulmonary abnormalities Reviewed CT reports of head, chest, cervical spine, abdomen, pelvis. Noted old rib fractures, noted old compression fractures, noted new right intertrochanteric fracture. 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
[2024-07-12] MEDS ORDERED: ALUMINUM/MAGNESIUM SUSP 30 ML UDC PO PRN (16:11)
[2024-07-12] MEDS ORDERED: MAGNESIUM HYDROXIDE SUSP 30 ML UDC PO PRN (16:11)
[2024-07-12] MEDS ORDERED: GLUCOSE 10 TAB/TUBE PO PRN (16:11)
[2024-07-12] MEDS ORDERED: GLUCOSE 40% GEL 15 GM TUBE PO PRN (16:11)
[2024-07-12] MEDS ORDERED: GLUCAGON FOR INJ 1 MG VIAL SQ PRN (16:11)
[2024-07-12] MEDS ORDERED: CARBOHYDRATES FOR HYPOGLYCEMIA PO PRN (16:11)
[2024-07-12] MEDS ORDERED: DEXTROSE 50% 50 ML SYRINGE IV PRN (16:11)
--- NOTE | 2024-07-12 16:45 | XRay Report ---
EXAM: Radiographs of the Right Knee 1 or 2 Views INDICATION: Pain TECHNIQUE: Frontal and lateral views of the right knee. COMPARISON: No relevant prior studies available. FINDINGS: Bones/joints: Satisfactory appearance of total knee arthroplasty components. No loosening, fracture or subluxation. No dislocation. There is a small joint effusion. Soft tissues: No abnormality noted. No radiopaque foreign body noted. IMPRESSION: Small joint effusion. No acute osseous abnormality. ACT 112: Negative or not required by law. Electronically signed by Lizet Owens 07-12-2024 4:45 PM
[2024-07-12] MEDS: MoRPHine SULFATE 4 MG/ML 1 ML CARP\\VIAL IV STA ×2 (17:14→22:44)
[2024-07-12] MEDS: ACETAMINOPHEN 500 MG TAB PO SCH (17:22)
[2024-07-12] MEDS: carvediloL 3.125 MG TAB PO SCH (18:13)
[2024-07-12] MEDS: INSULIN ASPART PER UNIT CHARGE SC SCH (18:13)
[2024-07-12] MEDS: MoRPHine SULFATE 2 MG/ML CARP IV PRN (19:09)
--- NOTE | 2024-07-12 19:21 | Orthopedic Consultation ---
Date of Consultation July 12, 2024 Assessment & Plan (1) Ground-level fall: (2) Acute hyperglycemia: (3) Chronic idiopathic thrombocytopenia: (4) Displaced intertrochanteric fracture of right femur, initial encounter for closed fracture: Plan This is a pleasant 69-year-old female who presents emergency department today after fall wherein she sustained a right intertrochanteric hip fracture this is a closed injury. She is neurovascularly intact. I had a long discussion with the patient regarding the nature of this diagnosis. We discussed in great detail the pathoanatomy, pathophysiology, treatment options. The patient appears to have a isolated right greater trochanteric fracture on her x-ray, however she did have a CT scan that demonstrates a full complete fracture line across the right intertrochanteric hip region. I do believe that this represents a complete right intertrochanteric hip fracture that is only mildly displaced at this point. I explained to the patient that due to the complete nature of this fracture, my recommendation is for operative management which would include open versus closed reduction and cephalomedullary nailing of the right hip. I explained the risk of the surgery in great detail to the patient. The risks include but are not limited to: Loss of life/limb, DVT, iatrogenic injury to bone/nerve/tendon/vessel, infection, hardware complication, hardware prominence, hardware failure, nonunion, malunion, need for additional surgery in the future, hematoma, blood loss requiring transfusion. I explained the benefits of the surgery the patient as well. With surgery, the patient would likely be allowed to bear weight as tolerated following the surgery and would be able to get up and move sooner. Given the above information, through shared decision making model, the patient is opted for operative management. The patient did have elevated blood glucose upon presentation as well as noted thrombocytopenia, she will be admitted to the medical service and optimized for surgery. We will plan to take her to the operating room first case tomorrow morning. For the time being she should be nonweightbearing on the right lower extremity. N.p.o. after midnight. 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 She notes that she was taking out some trash into her garage when upon returning into the house she tripped on the stair and fell to the ground. She was unable to get up. Immediate pain in the hip on the right side. She laid on the ground outside for approximately 1 hour until somebody driving by saw her and came and assisted her. Brought to the emergency room. In the emergency room initially hypothermic and easily rewarmed. Extensive trauma imaging ensued and showed a right intertrochanteric fracture. Patient does have history of left intertrochanteric hip fracture managed by Dr. Gooden. At current, patient notes pain that is primarily in her right hip. She denies any pain in her bilateral upper extremities and her left lower extremity. She does have some pain by her right knee. Ordinarily, the patient uses a cane from time to time, but mostly ambulates without any assistive device. Allergies Allergy/AdvReac Type Severity Reaction Status Date / Time adhesive Allergy Intermediate RASH Verified 02/22/24 19:12 Iodinated Contrast Media Allergy Intermediate burning Verified 02/22/24 19:12 and aching in veins latex Allergy Intermediate RASH Verified 02/22/24 19:12 Penicillins Allergy Intermediate n/v, rash Verified 02/22/24 19:12 Anesthetics - Amide Type - AdvReac Intermediate Vomiting Verified 02/22/24 19:12 Select A [Anesthetics - Amide Type] Anesthetics - Juju Type- AdvReac Intermediate Vomiting Verified 02/22/24 19:12 Parabens hepatitis B virus vaccine AdvReac Intermediate CHEST Verified 02/22/24 19:12 TIGHTNESS WITH 2ND DOSE. ketorolac AdvReac Intermediate ITCHING. Verified 02/22/24 19:12 tromethamine AdvReac Intermediate ITCHING. Verified 02/22/24 19:12 aspirin AdvReac Unknown CONTRAINDICATED---currently Verified 02/22/24 19:12 with gastric ulcer, per pt Home Medications Medication Instructions Recorded Confirmed Type bupropion HCl 100 mg tablet 100 mg PO .DAILY AT NOON 05/03/24 07/12/24 History bupropion HCl 100 mg tablet 150 mg PO QAM 05/03/24 07/12/24 History carvedilol 3.125 mg tablet 6.25 mg PO BID 05/03/24 07/12/24 History clopidogrel 75 mg tablet 75 mg PO QAM 05/03/24 07/12/24 History gabapentin 300 mg capsule 300 mg PO TID 05/03/24 07/12/24 History insulin glargine 100 unit/mL (3 18 unit subcut QAM 05/03/24 07/12/24 History mL) subcutaneous pen (Lantus Solostar U-100 Insulin) lisinopril 40 mg tablet 40 mg PO QAM 05/03/24 07/12/24 History metoclopramide HCl 5 mg tablet 5 mg PO QID PRN Nausea And Vomiting 05/03/24 07/12/24 History nifedipine 30 mg tablet,extended 30 mg PO QAM 05/03/24 07/12/24 History release omeprazole 20 mg capsule,delayed 20 mg PO DAILYBB 05/03/24 07/12/24 History release sennosides 8.6 mg-docusate sodium 1 tab PO DAILY PRN Constipation 05/03/24 07/12/24 History 50 mg tablet (Senexon-S) spironolactone 25 mg tablet 25 mg PO QAM 05/03/24 07/12/24 History cholecalciferol (vitamin D3) 25 25 mcg PO QAM 07/12/24 07/12/24 History mcg (1,000 unit) chewable tablet (Vitamin D3) gabapentin 100 mg capsule 100 mg PO HS 07/12/24 07/12/24 History insulin aspart U-100 100 unit/mL 6 unit subcut AC 07/12/24 07/12/24 History (3 mL) subcutaneous pen (Novolog FlexPen U-100 Insulin aspart) levothyroxine 137 mcg tablet 137 mcg PO DAILYBB 07/12/24 07/12/24 History rosuvastatin 20 mg tablet 20 mg PO QAM 07/12/24 07/12/24 History sertraline 100 mg tablet 200 mg PO QAM 07/12/24 07/12/24 History tramadol 50 mg tablet 50 mg PO Q8 PRN Pain 07/12/24 07/12/24 History Patient History Medical History Cellulitis of great toe of right foot Cellulitis of foot, right Surgical History History of oophorectomy S/P left knee arthroscopy H/O dilation and curettage H/O abdominal surgery small bowel repair lysis of adhesions History of hysterectomy History of cholecystectomy History of tubal ligation Family History Father Lung cancer Diabetes Sister Stomach cancer Social History Smoking Status: Never smoker Tobacco Type: Cigarettes Second Hand Exposure: No; Do You Dip or Chew Tobacco: No; Hx Alcohol Use: Yes Alcohol type: beer and wine Hx Substance Use: No Preferred Language: German Communication Ability: Effective Visual Impairment: No Limitations Hearing Ability: Normal Field Cane Scaler Helper Required: No Beliefs That Will Affect Care: None marital status: Current Living Situation: Spouse Current Living Situation Comment: with How many Children do You have: 0 Feels Safe at Home: Yes Assistive Devices: Cane, Glasses and Wheelchair Physical Exam Physical Exam: On physical examination, the patient has right lower extremity that is mildly shortened and externally rotated. Results & Data Vital Signs (Past 12 Hours) Vital Signs Temp Pulse Pulse Resp BP Pulse Ox O2 Del Method 07/12/24 17:25 36.4 C L 74 18 190/80 H 100 Nasal Cannula 07/12/24 16:00 81 20 157/85 H 100 Nasal Cannula 07/12/24 15:45 78 20 136/73 100 Nasal Cannula 07/12/24 15:00 79 17 152/82 H 100 Nasal Cannula 07/12/24 14:32 80 16 159/80 H 98 Nasal Cannula 07/12/24 14:19 95 Room Air 07/12/24 14:13 80 16 90 Room Air 07/12/24 14:13 37.1 C 79 17 182/87 H 94 Room Air 07/12/24 13:26 36.6 C 80 10 L 172/84 H 95 Room Air 07/12/24 12:58 36.5 C 82 18 185/92 H 93 Room Air 07/12/24 12:58 36.5 C 82 18 185/92 H 93 Room Air 07/12/24 12:52 84 07/12/24 12:39 82 16 190/91 H 93 Room Air 07/12/24 12:16 86 16 91 Room Air 07/12/24 12:09 93 Room Air 07/12/24 12:09 Room Air 07/12/24 12:09 36.6 C 84 16 94 Room Air O2 Flow Rate 07/12/24 17:25 2 07/12/24 16:00 2 07/12/24 15:45 2 07/12/24 15:00 2 07/12/24 14:32 2 07/12/24 14:19 07/12/24 14:13 07/12/24 14:13 07/12/24 13:26 07/12/24 12:58 07/12/24 12:58 07/12/24 12:52 07/12/24 12:39 07/12/24 12:16 07/12/24 12:09 07/12/24 12:09 07/12/24 12:09 Diagnostic Findings X-rays of the right femur, pelvis, CT scan of the pelvis was personally interpreted and reviewed. This demonstrates on x-ray and an isolated greater trochanter fracture, however on CT scan there is a complete fracture line extending throughout the intertrochanteric region on the right hip.
[2024-07-12] MEDS: oxyCODONE HCL IR 5 MG TAB (IMMEDIATE RELEASE) PO PRN (20:14)
[2024-07-12] MEDS: buPROPion HCl 100 MG TABLET PO SCH (21:16)
[2024-07-12] MEDS: GABAPENTIN 300 MG CAP PO SCH (21:17)
[2024-07-12] MEDS: BACITRACIN OINT 14 GM TUBE EXT SCH (21:19)
[2024-07-12] MEDS: traMADol HCL 50 MG TABLET PO PRN (21:26)
[2024-07-12] MEDS: LANTUS PER UNIT CHARGE SQ SCH (21:42)
[2024-07-12] MEDS ORDERED: MoRPHine SULFATE 4 MG/ML 1 ML CARP\\VIAL IV PRN (22:31)
[2024-07-13] MEDS: LEVOTHYROXINE SODIUM 137 MCG TABLET PO SCH (05:49)
[2024-07-13] MEDS: buPROPion HCl 75 MG TABLET PO SCH (05:50)
[2024-07-13 06:18] LABS: Hematocrit (blood only) 30.1 % (37.0-47.0); Hemoglobin 9.9 g/dl (12.0-16.0); Mean Corpuscular Hemoglobin 28.9 pg (25.0-34.0); Mean Corpuscular Hgb Conc 32.9 g/dL (32.0-36.0); Mean Platelet Volume 10.5 fL (9.4-12.4); Platelet Count 89 K/uL (130-400); RDW Coefficient of Variation 12.5 % (11.5-14.5); RDW Standard Deviation 39.9 fL (36.4-46.3); Red Blood Count 3.42 M/uL (4.20-5.40); White Blood Count 6.19 K/ul (4.8-10.8)
[2024-07-13 06:49] LABS: BUN Creatinine Ratio 18.1 (10-20); Calcium 8.4 mg/dl (8.6-10.3); Creatinine Clr Calc Pharmacy 42.8 ml/min; Potassium 4.4 mmol/L (3.5-5.1)
[2024-07-13] MEDS ORDERED: PROPOFOL IV EMULSION 10 MG/ML 20 ML VIAL IV ONE (07:07)
[2024-07-13] MEDS ORDERED: fentaNYL citrate PF 100 MCG/2 ML VIAL ONE (07:07)
[2024-07-13] MEDS ORDERED: MIDAZOLAM HCL 1 MG/ML 2ML VIAL ONE (07:07)
[2024-07-13] MEDS ORDERED: ACETAMINOPHEN 1000 MG/100 ML IV IV ONE (07:13)
--- NOTE | 2024-07-13 07:24 | Anesthesiology Consultation ---
Date of Service July 13, 2024 Assessment & Plan Chart Review Chart Review: Acceptable Risk for Surgery Consults Requested none History Surgery Operation Date: 07/13/24 08:00 Proposed Procedures p Intramedullary Eladio Femur(Right) - Richie Williamson DO Height/Weight Height: 5 ft 2 in Weight: 84.9 kg Allergies Allergy/AdvReac Type Severity Reaction Status Date / Time adhesive Allergy Intermediate RASH Verified 02/22/24 19:12 Iodinated Contrast Media Allergy Intermediate burning Verified 02/22/24 19:12 and aching in veins latex Allergy Intermediate RASH Verified 02/22/24 19:12 Penicillins Allergy Intermediate n/v, rash Verified 02/22/24 19:12 Anesthetics - Amide Type - AdvReac Intermediate Vomiting Verified 02/22/24 19:12 Select A [Anesthetics - Amide Type] Anesthetics - Juju Type- AdvReac Intermediate Vomiting Verified 02/22/24 19:12 Parabens hepatitis B virus vaccine AdvReac Intermediate CHEST Verified 02/22/24 19:12 TIGHTNESS WITH 2ND DOSE. ketorolac AdvReac Intermediate ITCHING. Verified 02/22/24 19:12 tromethamine AdvReac Intermediate ITCHING. Verified 02/22/24 19:12 aspirin AdvReac Unknown CONTRAINDICATED---currently Verified 02/22/24 19:12 with gastric ulcer, per pt Medications Home Medications Medication Instructions Recorded Confirmed Last Taken bupropion HCl 100 mg tablet 100 mg PO .DAILY AT NOON 05/03/24 07/12/24 07/11/24 bupropion HCl 100 mg tablet 150 mg PO QAM 05/03/24 07/12/24 07/11/24 carvedilol 3.125 mg tablet 6.25 mg PO BID 05/03/24 07/12/24 07/11/24 clopidogrel 75 mg tablet 75 mg PO QAM 05/03/24 07/12/24 07/11/24 gabapentin 300 mg capsule 300 mg PO TID 05/03/24 07/12/24 07/11/24 insulin glargine 100 unit/mL (3 18 unit subcut QAM 05/03/24 07/12/24 07/11/24 mL) subcutaneous pen (Lantus Solostar U-100 Insulin) lisinopril 40 mg tablet 40 mg PO QAM 05/03/24 07/12/24 07/11/24 metoclopramide HCl 5 mg tablet 5 mg PO QID PRN Nausea And Vomiting 05/03/24 07/12/24 Unknown nifedipine 30 mg tablet,extended 30 mg PO QAM 05/03/24 07/12/24 07/11/24 release omeprazole 20 mg capsule,delayed 20 mg PO DAILYBB 05/03/24 07/12/24 07/11/24 release sennosides 8.6 mg-docusate sodium 1 tab PO DAILY PRN Constipation 05/03/24 07/12/24 Unknown 50 mg tablet (Senexon-S) spironolactone 25 mg tablet 25 mg PO QAM 05/03/24 07/12/24 07/11/24 cholecalciferol (vitamin D3) 25 25 mcg PO QAM 07/12/24 07/12/24 07/11/24 mcg (1,000 unit) chewable tablet (Vitamin D3) gabapentin 100 mg capsule 100 mg PO HS 07/12/24 07/12/24 07/11/24 insulin aspart U-100 100 unit/mL 6 unit subcut AC 07/12/24 07/12/24 07/11/24 (3 mL) subcutaneous pen (Novolog FlexPen U-100 Insulin aspart) levothyroxine 137 mcg tablet 137 mcg PO DAILYBB 07/12/24 07/12/24 07/11/24 rosuvastatin 20 mg tablet 20 mg PO QAM 07/12/24 07/12/24 07/11/24 sertraline 100 mg tablet 200 mg PO QAM 07/12/24 07/12/24 07/11/24 tramadol 50 mg tablet 50 mg PO Q8 PRN Pain 07/12/24 07/12/24 Unknown Active Medications Generic Name Dose Route Start Last Admin Trade Name Freq PRN Reason Stop Dose Admin Acetaminophen 1,000 mg 07/12/24 16:11 07/12/24 21:25 Acetaminophen 500 Mg Tab PO 08/11/24 16:10 1,000 mg TID BRENDA Administration Bacitracin 1 appln 07/12/24 21:00 07/12/24 21:19 Bacitracin Oint 14 Gm Tube EXT 08/11/24 20:59 1 appln BID BRENDA Administration Bupropion HCl 100 mg 07/12/24 21:00 07/12/24 21:16 Bupropion Hcl 100 Mg Tablet PO 08/11/24 20:59 100 mg QPM BRENDA Administration Bupropion HCl 150 mg 07/13/24 06:30 07/13/24 05:50 Bupropion Hcl 75 Mg Tablet PO 08/12/24 06:29 150 mg DAILYBB BRENDA Administration Carvedilol 3.125 mg 07/12/24 17:00 07/12/24 18:13 Carvedilol 3.125 Mg Tab PO 08/11/24 16:59 3.125 mg BIDM BRENDA Administration Gabapentin 300 mg 07/12/24 21:00 07/12/24 21:17 Gabapentin 300 Mg Cap PO 08/11/24 20:59 300 mg TID BRENDA Administration Insulin Aspart 0 units 07/12/24 16:30 07/12/24 21:41 Insulin Aspart Per Unit Charge SC 08/11/24 16:29 2 units ACHS BRENDA Administration Insulin Glargine 10 units 07/12/24 21:00 07/12/24 21:42 Lantus Per Unit Charge SQ 08/11/24 20:59 10 units BID BRENDA Administration Levothyroxine Sodium 137 mcg 07/13/24 06:30 07/13/24 05:49 Levothyroxine Sodium 137 Mcg Tablet PO 08/12/24 06:29 137 mcg DAILYBB BRENDA Administration Miscellaneous 1 each 07/12/24 21:00 07/12/24 21:37 Remove Lidoderm Patch N/A 08/11/24 20:59 Not Given DAILY@2100 [facility] Oxycodone HCl 10 mg 07/12/24 16:11 07/13/24 00:40 Oxycodone Hcl Ir 5 Mg Tab (Immediate Release) PO 07/26/24 16:10 10 mg Q4H PRN Administration Severe Pain (Scale 7, 8, 9,10) Tramadol HCl 50 mg 07/12/24 16:11 07/12/24 21:26 Tramadol Hcl 50 Mg Tablet PO 08/11/24 16:10 50 mg Q8H PRN Administration pain Past Medical History Medical History Cellulitis of great toe of right foot Cellulitis of foot, right Past Family History Family History Father Lung cancer Diabetes Sister Stomach cancer Past Surgical History Surgical History History of oophorectomy S/P left knee arthroscopy H/O dilation and curettage H/O abdominal surgery small bowel repair lysis of adhesions History of hysterectomy History of cholecystectomy History of tubal ligation Social History Smoking Status: Never smoker Do You Dip or Chew Tobacco: No Hx Alcohol Use: Yes Alcohol type: beer and wine alcohol intake frequency: holidays/special occasions only Hx Substance Use: No substance use type: does not use Physical Exam Vital Signs Last Vital Signs Temp 36.6 C 07/12/24 22:29 Pulse 66 07/12/24 23:14 Resp 19 07/12/24 23:14 BP 168/78 H 07/12/24 22:29 Pulse Ox 95 07/12/24 23:14 O2 Del Method Nasal Cannula 07/12/24 22:29 O2 Flow Rate 1 07/12/24 22:29 Testing Laboratory Results 07/13/24 05:19 07/13/24 05:19 PT 11.1 Seconds (9.0-12.0) 07/12/24 14:08 INR 1.0 (0.9-1.1) 07/12/24 14:08 APTT 23 Seconds (21-31) 07/12/24 14:08 Urine Color Yellow 07/12/24 13:15 Urine Appearance Clear (Clear) 07/12/24 13:15 Urine pH 6.5 (4.5-7.5) 07/12/24 13:15 Ur Specific [place] 1.015 (1.000-1.030) 07/12/24 13:15 Urine Protein Negative (Negative) 07/12/24 13:15 Urine Glucose (UA) 3+ (Negative) H 07/12/24 13:15 Urine Ketones Negative (Negative) 07/12/24 13:15 Urine Nitrite Negative (Negative) 07/12/24 13:15 Ur Leukocyte Esterase Negative (Negative) 07/12/24 13:15 Urine WBC (Auto) 0-5 /hpf (0-5) 07/12/24 13:15 Urine RBC (Auto) 3-5 /hpf (0-2) H 07/12/24 13:15 U Hyaline Cast (Auto) 0-2 /lpf (0-2) 07/12/24 13:15 U Epithel Cells (Auto) 0-2 /hpf (0-2) 07/12/24 13:15 Urine Bacteria (Auto) None Seen (None Seen) 07/12/24 13:15 07/12/24 19:54 POC Glucose 162 H
[2024-07-13] MEDS ORDERED: ROCURONIUM BROMIDE 10 MG/ML 5 ML VIAL IV ONE (07:27)
[2024-07-13] MEDS ORDERED: hydrALAZINE HCL 20 MG/ML VIAL IV PRN (07:31)
[2024-07-13] MEDS ORDERED: HYDROmorphone INJ 2 MG/ML SYR/VIAL IV PRN (07:35)
[2024-07-13] MEDS ORDERED: fentaNYL citrate PF 100 MCG/2 ML VIAL IV PRN (07:35)
[2024-07-13] MEDS ORDERED: PROMETHAZINE HCL 6.25 MG in SODIUM CHLORIDE 0.9% 50 ML IV PRN (07:35)
[2024-07-13] MEDS ORDERED: ePHEDrine sulfate 50 MG/ML AMP IV PRN (07:35)
[2024-07-13] MEDS ORDERED: ATROPINE SULFATE 0.1 MG/ML 10ML SYR IV PRN (07:35)
[2024-07-13] MEDS ORDERED: ONDANSETRON INJ 2 MG/ML 2 ML VIAL IV PRN (07:35)
[2024-07-13] MEDS: ceFAZolin 2000MG 2,000 MG/15 ML SYR IV ONE (07:42)
--- NOTE | 2024-07-13 07:42 | History & Physical Bridge Note ---
Date of Service July 13, 2024 History & Physical Bridge Note I have examined the patient, reviewed the History & Physical and in the interval since the performance of the History & Physical I have noted the following changes of clinical significance: This is a pleasant 69-year-old female who presented emergency department after fall wherein she sustained a right intertrochanteric hip fracture this is a closed injury. She is neurovascularly intact. I had a long discussion with the patient regarding the nature of this diagnosis. We discussed in great detail the pathoanatomy, pathophysiology, treatment options. The patient appears to have a isolated right greater trochanteric fracture on her x-ray, however she did have a CT scan that demonstrates a full complete fracture line across the right intertrochanteric hip region. I do believe that this represents a complete right intertrochanteric hip fracture that is only mildly displaced at this point. I explained to the patient that due to the complete nature of this fracture, my recommendation is for operative management which would include open versus closed reduction and cephalomedullary nailing of the right hip. I explained the risk of the surgery in great detail to the patient. The risks include but are not limited to: Loss of life/limb, DVT, iatrogenic injury to bone/nerve/tendon/vessel, infection, hardware complication, hardware prominence, hardware failure, nonunion, malunion, need for additional surgery in the future, hematoma, blood loss requiring transfusion. I explained the benefits of the surgery the patient as well. With surgery, the patient would likely be allowed to bear weight as tolerated following the surgery and would be able to get up and move sooner have have lower risk of complications of immobilization such as decubitus ulcers and pneumonia. Given the above information, through shared decision making model, the patient tiffany opted for operative management.
[2024-07-13 07:44] LABS: Estimated Average Glucose 214 mg/dl; Hemoglobin A1C 9.1 % (4.5-5.6)
[2024-07-13] MEDS ORDERED: PHENYLEPHRINE HCL 10 MG/ML VIAL ONE (08:04)
[2024-07-13] MEDS ORDERED: ONDANSETRON INJ 2 MG/ML 2 ML VIAL ONE (08:39)
[2024-07-13] MEDS ORDERED: METOCLOPRAMIDE HCL INJ 5 MG/ML 2 ML VIAL ONE (08:40)
[2024-07-13] MEDS ORDERED: lisinopril 40 MG TAB PO SCH (09:00)
[2024-07-13] MEDS ORDERED: SPIRONOLACTONE 25 MG TAB PO SCH (09:00)
[2024-07-13] MEDS ORDERED: SUGAMMADEX SODIUM 200 MG/2 ML VIAL IV ONE (09:06)
--- NOTE | 2024-07-13 09:43 | Post Operative Brief Note ---
Immediate Post Op Note Date of Surgery July 13, 2024 Pre & Post Diagnosis Operation Date: 07/13/24 08:00 Pre-Op Diagnosis: Displaced intertrochanteric fracture of right femur. Post-Op Diagnosis: Displaced intertrochanteric fracture of right femur. I identified the patient and participated in the time-out.: Yes Procedure Operation Date: 07/13/24 08:00 Actual Procedures p Intramedullary Eladio Femur, flouroscopy less then 1 hour. (Right) - Richie Williamson DO 1. Closed reduction and cephalomedullary fixation right intertrochanteric hip fracture 2. Physician directed fluoroscopy less than 1 hour Surgeon Richie Williamson DO Bufferer Adria Martinez PA-C Estimated Blood Loss 250 Findings Consistent with Post-Op Diagnosis Fluids see anesthesia record Drains Krause Catheter Complications none immediately apparent Disposition Disposition: Recovery Room Overlapping Procedure I was present for: the critical portions of procedure. ( the entire procedure)
[2024-07-13] MEDS ORDERED: ceFAZolin 330 MG/ML 1 GM VIAL ONE (10:51)
--- NOTE | 2024-07-13 11:12 | Anesthesiology Progress Note ---
Date of Service July 13, 2024 Anesthesia Post Procedure Vital Signs Vital Signs: Temp Pulse Pulse Pulse Resp BP Pulse Ox 07/13/24 10:50 36.5 C 78 16 92/52 L 95 07/13/24 10:30 74 18 114/47 L 94 07/13/24 10:20 36.4 C L 78 15 108/47 L 92 07/13/24 10:10 76 14 116/50 L 98 07/13/24 10:00 77 15 132/55 L 99 07/13/24 09:51 36.6 C 80 15 134/56 L 93 07/12/24 23:14 66 19 95 07/12/24 22:29 36.6 C 71 19 168/78 H 100 07/12/24 19:00 07/12/24 17:25 36.4 C L 74 18 190/80 H 100 07/12/24 16:00 81 20 157/85 H 100 07/12/24 15:45 78 20 136/73 100 07/12/24 15:00 79 17 152/82 H 100 07/12/24 14:32 80 16 159/80 H 98 07/12/24 14:19 95 07/12/24 14:13 80 16 90 07/12/24 14:13 37.1 C 79 17 182/87 H 94 07/12/24 13:26 36.6 C 80 10 L 172/84 H 95 07/12/24 12:58 36.5 C 82 18 185/92 H 93 07/12/24 12:58 36.5 C 82 18 185/92 H 93 07/12/24 12:52 84 07/12/24 12:39 82 16 190/91 H 93 07/12/24 12:16 86 16 91 07/12/24 12:09 93 07/12/24 12:09 07/12/24 12:09 36.6 C 84 16 94 O2 Del Method O2 Flow Rate 07/13/24 10:50 Nasal Cannula 3 07/13/24 10:30 Nasal Cannula 2 07/13/24 10:20 Oxymask 2 07/13/24 10:10 Oxymask 4 07/13/24 10:00 Oxymask 8 07/13/24 09:51 Oxymask 8 07/12/24 23:14 07/12/24 22:29 Nasal Cannula 1 07/12/24 19:00 Nasal Cannula 2 07/12/24 17:25 Nasal Cannula 2 07/12/24 16:00 Nasal Cannula 2 07/12/24 15:45 Nasal Cannula 2 07/12/24 15:00 Nasal Cannula 2 07/12/24 14:32 Nasal Cannula 2 07/12/24 14:19 Room Air 07/12/24 14:13 Room Air 07/12/24 14:13 Room Air 07/12/24 13:26 Room Air 07/12/24 12:58 Room Air 07/12/24 12:58 Room Air 07/12/24 12:52 07/12/24 12:39 Room Air 07/12/24 12:16 Room Air 07/12/24 12:09 Room Air 07/12/24 12:09 Room Air 07/12/24 12:09 Room Air Pain Intensity Left Hip: Pain Intensity: 10 Right Hip: Pain Intensity: 10 Transfer of Care Handoff Completed per policy Notes Mental Status: alert / awake / arousable Patient Amnestic to Procedure: Yes Nausea / Vomiting: adequately controlled Pain: adequately controlled Airway Patency, RR, SpO2: stable & adequate BP & HR: stable & adequate Hydration State: stable & adequate Anesthetic Complications: no major complications apparent and Pt Satisfied with anesthetic care
[2024-07-13] MEDS: LIDOCAINE 5% 1 PATCH TD SCH (11:14)
[2024-07-13] MEDS: NIFEdipine EXTENDED REL 30 MG TABCR PO SCH (11:14)
[2024-07-13] MEDS: SERTRALINE HCL 100 MG TABLET PO SCH (11:15)
[2024-07-13] MEDS: SODIUM CHLORIDE 0.9% 1,000 ML IV SCH (11:22)
[2024-07-13 12:00] LABS: Basophils # (auto) 0.04 K/uL (0.00-0.20); Basophils % (auto) 0.5 %; Eosinophils # (auto) 0.06 K/uL (0.00-0.50); Eosinophils % (auto) 0.8 %; Hematocrit (blood only) 28.5 % (37.0-47.0); Hemoglobin 9.2 g/dl (12.0-16.0); Immature Granulocytes # (auto) 0.02 K/uL (0.01-0.20); Immature Granulocytes % (auto) 0.3 %; Lymphocytes # (auto) 0.61 K/uL (1.20-3.40); Lymphocytes % (auto) 7.9 %; Mean Corpuscular Hemoglobin 28.6 pg (25.0-34.0); Mean Corpuscular Hgb Conc 32.3 g/dL (32.0-36.0); Mean Corpuscular Volume 88.5 fL (80.0-100.0); Mean Platelet Volume 9.8 fL (9.4-12.4); Monocytes # (auto) 0.37 K/uL (0.11-0.59); Monocytes % (auto) 4.8 %; Neutrophils # (auto) 6.62 K/uL (1.40-6.50); Neutrophils % (auto) 85.7 %; Platelet Count 83 K/uL (130-400); RDW Coefficient of Variation 12.6 % (11.5-14.5); RDW Standard Deviation 40.7 fL (36.4-46.3); Red Blood Count 3.22 M/uL (4.20-5.40); White Blood Count 7.72 K/ul (4.8-10.8)
--- NOTE | 2024-07-13 12:07 | Electrocardiogram Report ---
Test Reason : Blood Pressure : */* mmHG Vent. Rate : 86 BPM Atrial Rate : 86 BPM P-R Int : 162 ms QRS Dur : 132 ms QT Int : 424 ms P-R-T Axes : 68 57 52 degrees QTcB Int : 507 ms Normal sinus rhythm Possible Left atrial enlargement Right bundle branch block Abnormal ECG When compared with ECG of 26-Jun-2024 12:20, No significant change was found Confirmed by Alvin Williamson ([id number]) on 07/13/2024 12:07:24 PM Referred By: Confirmed By: Alvin Williamson
[2024-07-13 12:09] LABS: BUN Creatinine Ratio 19.7 (10-20); Calcium 8.1 mg/dl (8.6-10.3); Creatinine Clr Calc Pharmacy 42.8 ml/min; Potassium 4.5 mmol/L (3.5-5.1)
--- NOTE | 2024-07-13 12:35 | XRay Report ---
EXAM: Radiographs of the Right Femur 2 Views INDICATION: Fracture fixation. TECHNIQUE: Frontal and lateral views of the right femur. COMPARISON: No relevant prior studies available. FINDINGS: Bones/joints: Long femoral nail with proximal and distal locking hardware well-seated and intact. Anatomic alignment about intertrochanteric fracture of the proximal femur. The visualized portions of the knee arthroplasty components are well-seated. Soft tissues: Expected lateral soft tissue swelling and gas along the femur. IMPRESSION: Satisfactory appearance of right femoral nail and anatomic alignment of right intertrochanteric fracture. ACT 112: Negative or not required by law. Electronically signed by Lizet Owens 07-13-2024 12:35 PM
[2024-07-13] MEDS: FAMOTIDINE/PF 20 MG/2 ML VIAL IV ONE (12:56)
[2024-07-13] MEDS: ROSUVASTATIN CALCIUM 20 MG TAB PO SCH (12:58)
[2024-07-13] MEDS: PANTOprazole 40 MG TAB PO SCH (12:58)
[2024-07-13] MEDS: DOCUSATE SODIUM/SENNA 50/8.6MG TAB PO SCH (13:09)
[2024-07-13] MEDS: SODIUM CHLORIDE 0.9% 500 ML IV ONE (13:11)
--- NOTE | 2024-07-13 14:30 | Hospitalist Progress Note ---
Date of Service July 13, 2024 Assessment & Plan (1) Displaced intertrochanteric fracture of right femur, initial encounter for closed fracture: (2) Contusion of right chest wall: (3) Abrasion, right knee, initial encounter: (4) Hyperglycemia due to type 2 diabetes mellitus: (5) Irritable bowel syndrome with constipation: (6) Hypothyroidism: (7) 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: (8) Chronic idiopathic thrombocytopenia: Plan per admitting service notes with addendum: Patient presents to the hospital after tripping on a step and falling in her driveway. Evaluation revealed right intertrochanteric hip fracture. Patient requires hospital level care for specialty consultation, pain control and possible surgical intervention. High risk for further injury and decompensation if not cared for in the hospital Admit to the MedSurg unit Pain control Consult orthopedics Monitor glucose and cover with short acting insulin, continue her long-acting insulin at a lower dose since patient may be n.p.o. for possible surgical intervention Continue other outpatient medications as ordered Bacitracin and dressing to knee abrasion Case management for anticipated rehabilitation placement needs Monitor electrolytes, renal function and hemoglobin the setting of hip fracture 07/12 s/p Closed reduction and cephalomedullary fixation right intertrochanteric hip fracture BP on the lower end IV NSS bolus 500cc, IV NSS 80 cc/hr hold Lisinopril for crea 1.2 pain control pt/ot eval monitor BSG and HTN Jose Ng MD Admission and Anticipated Discharge Date Admission Date: July 12, 2024 Subjective ff up for R hip fracture, etc seen s/p R hip surgery BP systolic 90s seen at bedside, somewhat drowsy but feels fine overall no chest pain, dyspnea, palpitations, dizziness denies r hip pain no other new symptoms Review of Systems Review of Systems: all noted and negative except for above Physical Exam Physical Exam: General- oriented x 3, not in distress, speaks in sentences with no effort or accessory muscle use Eyes- anicteric Neck- no JVD Lungs- clear breath sounds bilaterally, no rales/wheezes Heart- normal rate, regular rhythm; no murmurs Abdomen- normal bowel sounds, nondistended, soft, nontender Extremities- no pretibial edema, no calf tenderness R hip: heavy dressing in place, no bleeding or discharge Neuro- alert, oriented x 3; no gross focal neurologic deficits Skin- warm & dry Results & Data Results & Data Vital Signs (Past 12 Hours) Vital Signs Temp Pulse Pulse Resp BP Pulse Ox O2 Del Method 07/13/24 13:00 36.3 C L 72 17 99/59 L 100 Nasal Cannula 07/13/24 11:47 36.4 C L 72 16 101/57 L 100 Nasal Cannula 07/13/24 11:17 36.5 C 71 16 98/57 L 100 Nasal Cannula 07/13/24 10:50 36.5 C 78 16 92/52 L 95 Nasal Cannula 07/13/24 10:30 74 18 114/47 L 94 Nasal Cannula 07/13/24 10:20 36.4 C L 78 15 108/47 L 92 Oxymask 07/13/24 10:10 76 14 116/50 L 98 Oxymask 07/13/24 10:00 77 15 132/55 L 99 Oxymask 07/13/24 09:51 36.6 C 80 15 134/56 L 93 Oxymask O2 Flow Rate 07/13/24 13:00 4 07/13/24 11:47 3 07/13/24 11:17 3 07/13/24 10:50 3 07/13/24 10:30 2 07/13/24 10:20 2 07/13/24 10:10 4 07/13/24 10:00 8 07/13/24 09:51 8 all noted and reviewed including below (4) Hyperglycemia due to type 2 diabetes mellitus Diabetes mellitus halfway insulin use: unspecified glaze carrier insulin use status Qualified Code(s): E11.65 - Type 2 diabetes mellitus with hyperglycemia
[2024-07-13] MEDS: ceFAZolin 1000MG 1,000 MG/7.5 ML SYR IV SCH (16:11)
[2024-07-13] MEDS: GABAPENTIN 100 MG CAP PO SCH (21:23)
[2024-07-14 07:33] LABS: Basophils # (auto) 0.02 K/uL (0.00-0.20); Basophils % (auto) 0.4 %; Eosinophils # (auto) 0.05 K/uL (0.00-0.50); Eosinophils % (auto) 0.9 %; Hematocrit (blood only) 23.8 % (37.0-47.0); Hemoglobin 7.8 g/dl (12.0-16.0); Immature Granulocytes # (auto) 0.02 K/uL (0.01-0.20); Immature Granulocytes % (auto) 0.4 %; Lymphocytes # (auto) 0.65 K/uL (1.20-3.40); Lymphocytes % (auto) 11.8 %; Mean Corpuscular Hemoglobin 29.1 pg (25.0-34.0); Mean Corpuscular Hgb Conc 32.8 g/dL (32.0-36.0); Mean Corpuscular Volume 88.8 fL (80.0-100.0); Mean Platelet Volume 10.9 fL (9.4-12.4); Monocytes # (auto) 0.35 K/uL (0.11-0.59); Monocytes % (auto) 6.3 %; Neutrophils # (auto) 4.44 K/uL (1.40-6.50); Neutrophils % (auto) 80.2 %; Platelet Count 74 K/uL (130-400); RDW Coefficient of Variation 12.7 % (11.5-14.5); RDW Standard Deviation 40.8 fL (36.4-46.3); Red Blood Count 2.68 M/uL (4.20-5.40); White Blood Count 5.53 K/ul (4.8-10.8)
[2024-07-14 07:56] LABS: BUN Creatinine Ratio 26.5 (10-20); Calcium 7.9 mg/dl (8.6-10.3); Creatinine Clr Calc Pharmacy 48.2 ml/min; Potassium 4.3 mmol/L (3.5-5.1)
[2024-07-14 08:02] LABS: Polychromasia 1+
--- NOTE | 2024-07-14 08:34 | Orthopedic Progress Note ---
Date of Service July 14, 2024 Assessment & Plan (1) Displaced intertrochanteric fracture of right femur, initial encounter for closed fracture: (2) Ground-level fall: (3) Acute hyperglycemia: (4) Chronic idiopathic thrombocytopenia: Plan Patient is doing well postoperative day #1 status post closed reduction and cephalomedullary nailing of Her right intertrochanteric hip fracture. Patient may weight-bear as tolerated. She should work her physical therapy and Occupational Therapy determine appropriate discharge plan for home. She will follow-up with me in 2 to 3 weeks for wound check and staple removal. Keep dressings clean and dry until that time. Admission and Anticipated Discharge Date Admission Date: July 12, 2024 Subjective Patient resting comfortably in bed this morning. She notes that her hip feels "sore". Denies any additional complaints. Review of Systems 2 Review of Systems: All systems reviewed & are unremarkable except as noted in HPI & below Physical Exam Physical Exam: Dressings clean dry and intact. Patient demonstrates active EHL/FHL/GSC/TA motor function. Her foot is warm and well-perfused. Sensation intact to light touch throughout the lower extremity. Results & Data Vital Signs (Past 12 Hours) Vital Signs Temp Pulse Pulse Resp BP Pulse Ox O2 Del Method 07/14/24 07:13 37.1 C 81 16 133/66 97 Nasal Cannula 07/14/24 02:58 73 15 98 07/13/24 23:23 82 25 H 97 07/13/24 22:22 36.7 C 81 16 109/62 96 Nasal Cannula O2 Flow Rate 07/14/24 07:13 2 07/14/24 02:58 2 07/13/24 23:23 2 07/13/24 22:22 2 Diagnostic Findings postoperative x-rays were personally interpreted and reviewed. These demonstrate stable internal fixation for right intertrochanteric hip fracture. No evidence of hardware complication at current.
[2024-07-14] MEDS: oxyCODONE HCL IR 5 MG TAB (IMMEDIATE RELEASE) PO PRN (09:00)
[2024-07-14] MEDS ORDERED: ENOXAPARIN INJ 40 MG/0.4 ML SYR SQ SCH (09:00)
--- NOTE | 2024-07-14 09:22 | Operative Report ---
Post Operative Report Pre & Post Diagnosis Operation Date: 07/13/24 08:00 Pre-Op Diagnosis: Displaced intertrochanteric fracture of right femur. Post-Op Diagnosis: Displaced intertrochanteric fracture of right femur. I identified the patient and participated in the time-out.: Yes Procedure Operation Date: 07/13/24 08:00 Actual Procedures p Closed reduction and cephalomedullary fixation right intertrochanteric hip fracture. Physician directed fluoroscopy less than 1 hour(Right) - Richie Williamson DO 1. Closed reduction cephalomedullary nailing right intertrochanteric hip fracture 2. Physician directed fluoroscopy less than 1 hour Surgeon Richie Williamson DO Exhibition Organiser Adria Martinez PA-C Estimated Blood Loss 250 Findings Consistent with Post-Op Diagnosis Specimens none Drains none Anesthesia Type General Complications none immediately apparent Disposition Disposition: Recovery Room Indications This is a pleasant 69-year-old female who presented emergency department after fall wherein she sustained a right intertrochanteric hip fracture this is a closed injury. She is neurovascularly intact. I had a long discussion with the patient regarding the nature of this diagnosis. We discussed in great detail the pathoanatomy, pathophysiology, treatment options. The patient appears to have a isolated right greater trochanteric fracture on her x-ray, however she did have a CT scan that demonstrates a full complete fracture line across the right intertrochanteric hip region. I do believe that this represents a complete right intertrochanteric hip fracture that is only mildly displaced at this point. I explained to the patient that due to the complete nature of this fracture, my recommendation is for operative management which would include open versus closed reduction and cephalomedullary nailing of the right hip. I explained the risk of the surgery in great detail to the patient. The risks include but are not limited to: Loss of life/limb, DVT, iatrogenic injury to bone/nerve/tendon/vessel, infection, hardware complication, hardware prominence, hardware failure, nonunion, malunion, need for additional surgery in the future, hematoma, blood loss requiring transfusion. I explained the benefits of the surgery the patient as well. With surgery, the patient would likely be allowed to bear weight as tolerated following the surgery and would be able to get up and move sooner have have lower risk of complications of immobilization such as decubitus ulcers and pneumonia. Given the above information, through shared decision making model, the patient has opted for operative management. no guarantees or promises were stated or implied. Description of Procedure After informed consent was obtained, the patient was correctly identified in the preoperative holding suite, the operative site was marked with the surgeon's initials, the date of surgery, and the word yes. The patient was then taken to the operative suite. The department of anesthesia administered General Anesthesia. The patient was transferred from the [facility] to the operative table. All bony prominences were well-padded. Briefing and timeout was performed. All implants were available and sterile at the time. BRIEFING AND DEBRIEFING: Pre and post operative briefing and debriefing was performed. Introductions were made, goals of the procedure were discussed, questions and concerns were addressed. The operative site markings were identified and appropriate. A time [id number] was performed, the patient's correct identity was confirmed and the correct operative sites were identified. The patients pre-operative antibiotic dosing and administration was confirmed along with other SCIP measures. The team was polled at the completion of the surgery and all team members were in agreement that the procedure was without complication, the counts are correct, the wound class was identified and suggestions for improvement were shared. Patient was transferred from the [facility] to the fracture table in supine fashion. All bony prominences well-padded. The perineal post was secured in place. Her ipsilateral arm was draped across her chest and well-padded. prior to prepping, the leg was positioned with traction and mild internal rotation such that an appropriate reduction was obtained. This was confirmed on fluoroscopy. We then prepped and draped the leg in standard sterile fashion using ChloraPrep and a shower curtain drape. Fluoroscopy was used to adria out the anatomy of the proximal femur. We made a 3 cm incision approximately 2 cm proximal to the tip of the greater trochanter in line with the femoral shaft. Blunt dissection was used to approach the tip of the greater trochanter through the gluteal fascia. We obtained an appropriate start point on the tip of the greater trochanter in line with the femoral shaft on the lateral view and just medial to the tip on the AP view. We advanced the starting wire into the proximal femur. The opening reamer was used over the starting wire and next a long ball-tipped guidewire was advanced down the femoral shaft. This position was confirmed on fluoroscopy. We selected an appropriately sized nail from the [employer] set using the largest diameter that we had available to us. This ended up being a 11 mm x 340 mm x 130 degrees TFN nail. This was attached to the insertion handle and inserted into the femoral shaft. we confirmed dislocation on fluoroscopy and then attached the targeting guide for the lag bolt. Its position was confirmed on AP and lateral fluoroscopy and the guidewire was advanced through the targeting guide. We measured this and selected a 90 mm lag bolt. We drilled for this bolt and then placed it through the targeting guide. We compressed through the jig and then locked this statically. We then used perfect [employer] [place] [employer] [place] technique to place a 5 x 38 mm locking screw distally in static fashion. final fluoroscopic images were then obtained demonstrating appropriate alignment of the fracture and safe Placement of internal fixation. The patient tolerated this procedure well and was transferred to the PACU in stable condition. Prior to transportation to PACU, all counts were correct and a briefing was performed at the end of the case. Physician-directed fluoroscopy for less one hour was performed by myself to verify fracture alignment and the safe placement of all internal fixation. The final images saved to PACs showed views demonstrating satisfactory alignment of the fracture and stable internal fixation. Implant verification was performed by myself by reading and confirming the implant information on the packaging with the team before the sterile implants were opened. I was present for the entire procedure. Plan: Weight bearing status: as tolerated right lower extremity Wound care: keep dressings clean and dry Range of motion: as tolerated VTE Prophylaxis: okay for DVT prophylaxis from orthopedic standpoint Antibiotics: perioperative Ancef Pain Control: Multimodal Vitamin D Replacement: 23.8. This will be repleted. Discharge Plan: Pending evaluation by physical therapy and Occupational Therapy Follow Up: patient will follow-up with myself in 2 to 3 weeks for wound check and staple removal I attest to the content of the Intraoperative Record and any orders documented therein. Any exceptions are noted below.
[2024-07-14] MEDS: SODIUM CHLORIDE 0.9% 1,000 ML IV ONE (12:01)
[2024-07-14 12:59] LABS: Hemoglobin 6.9 g/dl (12.0-16.0)
[2024-07-14] MEDS ORDERED: SODIUM CHLORIDE 0.9% 50 ML IV PRN (13:16)
[2024-07-14] MEDS ORDERED: SODIUM CHLORIDE 0.9% 100 ML IV PRN (13:16)
[2024-07-14] MEDS: diphenhydrAMINE Capsule 25 MG CAP PO ONE (15:05)
[2024-07-14] MEDS: ACETAMINOPHEN 325 MG TAB PO ONE (15:28)
[2024-07-14] MEDS: PANTOprazole 40 MG/10 ML SYR IV ONE (16:37)
[2024-07-14] MEDS: ALUMINUM/MAGNESIUM SUSP 30 ML UDC PO STA (16:37)
[2024-07-14] MEDS: ERGOCALCIFEROL 1250 MCG (50,000 UNITS) CAP PO SCH (16:37)
--- NOTE | 2024-07-14 19:05 | Hospitalist Progress Note ---
Date of Service July 14, 2024 delayed entry date of service noted above Assessment & Plan (1) Displaced intertrochanteric fracture of right femur, initial encounter for closed fracture: (2) Contusion of right chest wall: (3) Abrasion, right knee, initial encounter: (4) Hyperglycemia due to type 2 diabetes mellitus: (5) Irritable bowel syndrome with constipation: (6) Hypothyroidism: (7) 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: (8) Chronic idiopathic thrombocytopenia: Plan per admitting service notes with addendum: Patient presents to the hospital after tripping on a step and falling in her driveway. Evaluation revealed right intertrochanteric hip fracture. Patient requires hospital level care for specialty consultation, pain control and possible surgical intervention. High risk for further injury and decompensation if not cared for in the hospital Admit to the MedSur unit Pain control Consult orthopedics Monitor glucose and cover with short acting insulin, continue her long-acting insulin at a lower dose since patient may be n.p.o. for possible surgical intervention Continue other outpatient medications as ordered Bacitracin and dressing to knee abrasion Case management for anticipated rehabilitation placement needs Monitor electrolytes, renal function and hemoglobin the setting of hip fracture 07/12 s/p Closed reduction and cephalomedullary fixation right intertrochanteric hip fracture BP on the lower end IV NSS bolus 500cc, IV NSS 80 cc/hr 12/2 Hg down to 6.9 1 unit pRBC ordered monitor BSG and HTN Jose Ng MD Admission and Anticipated Discharge Date Admission Date: July 12, 2024 Subjective seen resting in bed, feels tired having some epigastric discomfort denies shortness of breath minimal R hip pain no other symptoms Review of Systems Review of Systems: all noted and negative except for above Physical Exam Physical Exam: General- oriented x 3, not in distress, speaks in sentences with no effort or accessory muscle use Eyes- anicteric Neck- no JVD Lungs- clear breath sounds bilaterally, no crackles/wheezing Heart- normal rate, regular rhythm; no murmurs Abdomen- normal bowel sounds, nondistended, soft, nontender Extremities- no pretibial edema, no calf tenderness R hip: no hematoma, bleeding Neuro- alert, oriented x 3; no gross focal neurologic deficits Skin- warm & dry Results & Data Results & Data Vital Signs (Past 12 Hours) Vital Signs Temp Pulse Pulse Resp BP BP Pulse Ox 07/14/24 19:02 37.3 C 78 16 109/56 L 07/14/24 18:29 36.5 C 80 16 109/55 L 90 07/14/24 18:00 36.8 C 81 16 110/59 L 92 07/14/24 17:33 36.5 C 80 16 109/55 L 90 07/14/24 17:06 37.9 C H 84 17 108/57 L 95 07/14/24 17:00 37.9 C H 81 16 108/57 L 91 07/14/24 16:45 37.6 C H 83 16 115/57 L 95 07/14/24 16:30 37.1 C 82 16 112/56 L 91 07/14/24 12:59 74 18 95/54 L 97 07/14/24 08:10 07/14/24 07:13 37.1 C 81 16 133/66 97 O2 Del Method O2 Flow Rate 07/14/24 19:02 07/14/24 18:29 2 07/14/24 18:00 2 07/14/24 17:33 2 07/14/24 17:06 2 07/14/24 17:00 2 07/14/24 16:45 2 07/14/24 16:30 2 07/14/24 12:59 Nasal Cannula 2 07/14/24 08:10 Nasal Cannula 2 07/14/24 07:13 Nasal Cannula 2 all noted and reviewed including below (4) Hyperglycemia due to type 2 diabetes mellitus Diabetes mellitus halfway insulin use: unspecified salvage determiner insulin use status Qualified Code(s): E11.65 - Type 2 diabetes mellitus with hyperglycemia
[2024-07-14 21:23] LABS: Hematocrit (blood only) 23.6 % (37.0-47.0); Hemoglobin 7.8 g/dl (12.0-16.0)
--- NOTE | 2024-07-14 21:57 | Communication Note ---
Date of Service: July 14, 2024 Notified by RN of progressive troponin elevation. Patient currently lethargic and chest pain-free. Patient with pleuritic chest pain and SOB symptoms earlier as per her account AP Transient chest pain with troponin elevation Rule out PE PCU transfer given troponin elevation CT angio chest PE study
[2024-07-14 22:03] LABS: Base Excess VBG -2.8 mEq/L; HCO3 VBG 23 mmol/L; Oxygen Saturation VBG 71.4 %; PCO2 VBG 44 mmHg (38-50); PO2 VBG 40 mmHg; pH VBG 7.33 (7.36-7.41)
--- NOTE | 2024-07-14 23:45 | XRay Report ---
Exam(s): XR CXR 1 VIEW EXAM: XR Chest, 1 View CLINICAL HISTORY: Reason for exam: low o2. TECHNIQUE: Frontal view of the chest. COMPARISON: July 12, 2024 FINDINGS: Lungs: See below. Pleural space: Unremarkable. No pneumothorax. Heart: The cardiac silhouette is enlarged, similar to previous. Mediastinum: Unremarkable. Normal mediastinal contour. Bones/joints: Mild to moderate osteophytosis of the mid to lower thoracic spine. No acute fracture. Vasculature: Prominent vascular and interstitial markings throughout both lungs, similar to previous. Upper abdomen: There is no pneumoperitoneum under the diaphragm. IMPRESSION: 1. The cardiac silhouette is enlarged, similar to previous. 2. Prominent vascular and interstitial markings throughout both lungs, similar to previous. Probable mild early emphysema and superimposed mild CHF. Electronically signed by: Efrain Gooden MD 07/14/24 23:44 PM
[2024-07-14 23:48] LABS: Appearance Urine Clear (Clear); Bacteria Urine Automated None Seen (None Seen); Bilirubin Urine Negative (Negative); Blood Urine 3+ (Negative); Cast Urine Automated 0-2 /lpf (0-2); Color Urine Yellow; Epithelial Cell Urine Auto 0-2 /hpf (0-2); Glucose Urine UA Negative (Negative); Ketones Urine Negative (Negative); Leukocyte Esterase Urine Trace (Negative); Nitrite Urine Negative (Negative); Protein Urine Trace (Negative); Specific Gravity Urine 1.019 (1.000-1.030); Urobilinogen Urine Negative (Negative); WBC Urine Automated 0-5 /hpf (0-5); pH Urine 5.5 (4.5-7.5)
[2024-07-15] MEDS: OPTIRAY 320 125ml IV ONE (03:40)
[2024-07-15] MEDS: ONDANSETRON INJ 2 MG/ML 2 ML VIAL IV PRN (04:02)
--- NOTE | 2024-07-15 04:45 | CT Scan Report ---
EXAM: CT angio chest PE protocol CLINICAL HISTORY: pleuritic cp, 118 ML OPTIRAY 320 TECHNIQUE: Contiguous axial images were obtained from the neck base through the upper abdomen following intravenous administration of iodinated contrast material. Angiographic images were processed, 3D MIP images were acquired for interpretation. If IV contrast material had not been administered, the likelihood of detecting abnormalities relevant to the patient's condition would have been substantially decreased. Coronal and sagittal 3-D MIPs were likewise performed and indicated to increase the sensitivity of detecting diffuse clinically relevant pathology. CT scan was performed according to ALARA (as low as reasonably achievable). 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 Segmental/subsegmental atelectasis is noted involving posterior basal segment of left lower lobe. This is a new finding. The central airways are patent. Minimal bilateral pleural effusion is noted. This is a new finding. Unchanged cardiomegaly is noted. Aorta, and pulmonary arteries are of normal size and configuration. Atherosclerotic calcifications are noted involving aortic root, aorta and its branches, coronary arteries. No axillary or mediastinal adenopathy is identified. Persistent multiple distal periesophageal lymph nodes are noted. Rest of the findings are unchanged compared to the previous CT scan. IMPRESSION: 1. No evidence of pulmonary embolism. 2. Unchanged cardiomegaly. 3. Minimal bilateral pleural effusion is noted. This is a new finding. 4. Segmental/subsegmental atelectasis is noted involving posterior basal segment of left lower lobe. This is a new finding. 5. Persistent multiple distal periesophageal lymph nodes are noted. Rest of the findings are unchanged compared to the previous CT scan. Electronically signed by Shaun Valdivia 07-15-2024 04:44 AM
[2024-07-15] MEDS: ALBUMIN 25% 12.5 GM/50 ML VIAL IV ONE (05:53)
[2024-07-15 06:42] LABS: Basophils # (auto) 0.02 K/uL (0.00-0.20); Basophils % (auto) 0.4 %; Eosinophils # (auto) 0.07 K/uL (0.00-0.50); Eosinophils % (auto) 1.5 %; Hematocrit (blood only) 23.7 % (37.0-47.0); Hemoglobin 7.9 g/dl (12.0-16.0); Immature Granulocytes # (auto) 0.01 K/uL (0.01-0.20); Immature Granulocytes % (auto) 0.2 %; Lymphocytes # (auto) 0.69 K/uL (1.20-3.40); Lymphocytes % (auto) 14.4 %; Mean Corpuscular Hgb Conc 33.3 g/dL (32.0-36.0); Mean Corpuscular Volume 87.1 fL (80.0-100.0); Mean Platelet Volume 10.2 fL (9.4-12.4); Monocytes # (auto) 0.38 K/uL (0.11-0.59); Monocytes % (auto) 7.9 %; Neutrophils # (auto) 3.62 K/uL (1.40-6.50); Neutrophils % (auto) 75.6 %; Platelet Count 70 K/uL (130-400); RDW Coefficient of Variation 12.8 % (11.5-14.5); RDW Standard Deviation 40.6 fL (36.4-46.3); Red Blood Count 2.72 M/uL (4.20-5.40); White Blood Count 4.79 K/ul (4.8-10.8)
[2024-07-15 07:01] LABS: BUN Creatinine Ratio 24.7 (10-20); Calcium 8.2 mg/dl (8.6-10.3); Potassium 4.2 mmol/L (3.5-5.1)
[2024-07-15 07:08] LABS: Troponin I High Sensitivity 28.4 pg/ml (0-14)
[2024-07-15 07:12] LABS: RBC Morphology Unremarkable
--- NOTE | 2024-07-15 08:10 | Orthopedic Progress Note ---
Date of Service July 15, 2024 Assessment & Plan (1) Displaced intertrochanteric fracture of right femur, initial encounter for closed fracture: (2) Ground-level fall: (3) Acute hyperglycemia: (4) Chronic idiopathic thrombocytopenia: Plan Patient is doing well postoperative day #2 status post closed reduction and cephalomedullary nailing of Her right intertrochanteric hip fracture. CTPE negative yesterday. patient okay for anticoagulation from orthopaedic standpoint Patient may weight-bear as tolerated. She should work her physical therapy and Occupational Therapy determine appropriate discharge plan for home. She will follow-up with me in 2 to 3 weeks for wound check and staple removal. Keep dressings clean and dry until that time. Admission and Anticipated Discharge Date Admission Date: July 12, 2024 Subjective Patient resting comfortably in bed this morning. She notes that her hip feels "sore". was transferred to PCU due to concern for PE with elevated troponins yesterday. CTPE negative. Physical Exam Physical Exam: Dressings clean dry and intact. Patient demonstrates active EHL/FHL/GSC/TA motor function. Her foot is warm and well-perfused. Sensation intact to light touch throughout the lower extremity. Results & Data Vital Signs (Past 12 Hours) Vital Signs Temp Pulse Pulse Resp BP Pulse Ox O2 Del Method 07/15/24 07:11 36.8 C 76 16 146/67 H 98 Oxymask 07/15/24 04:30 Oxymask 07/15/24 04:06 75 07/15/24 03:54 36.7 C 75 20 95/72 L 94 Nasal Cannula 07/15/24 02:15 99 Oxymask 07/14/24 22:44 81 22 95 O2 Flow Rate 07/15/24 07:11 2 07/15/24 04:30 2 07/15/24 04:06 07/15/24 03:54 2 07/15/24 02:15 2 07/14/24 22:44 2
--- NOTE | 2024-07-15 08:27 | Cardiology Consultation ---
Date of Consultation July 15, 2024 Assessment & Plan (1) Chest pain: Plan Assessment: 69 year old female with chronic chest pain admitted after sustaining a ground level fall and subsequent intervention on a right hip fracture. She was found with profound anemia yesterday with a HgB of 6.9 s/p transfusion x1 unit. She complained of intermittent chest pain and cardiology has been requested for evaluation and recommendations. Plan: Case has been discussed with Dr. Liu. Further recommendations regarding plan of care as per his assessment. I spent a total of 40 minutes on the date of service in preparation, delivery, documentation of the care provided to the patient excluding any time spent in the performance of separately billed services. DALI [facility] Cardiology [facility] Supervising Physician Co-Signing Physician Notes Attending Staff: Pt seen and evaluated with [facility] staff Concur with observations and plans 69 yo woman presenting s/p mechanical fall * Hip Fx (Right) * S/P Reduction 07/14/2024 * Consultation - chest discomfort reported * Intermittent * EKG - RBBB (chronic)- no acute ischemic changes * No acute changes * Peak Tn 29. * Cardiac Cath - - no angiographically significant CAD * ECHO - ordered and pending * Last ECHO 05-03-2024 - LVEF 55-60% - no WMA, Moderate concentric LVH, MR - Mild Events Overnight: * No telemetry events Med Hx: * HTN * Hyperlipidemia * No smoking * Prior PE - not on AC due to repeated falls * CVA on Plavix * 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 * Fatty liver Disease (BARNARD) * DM II on Insulin * Dementia Plans: * Cardiac Cath within the last 18 months - no major epicardial CAD * EKG - no ischemic changes * Repeat ECHO - LVEF 65% + (mild) * No active evidence of ongoing ischemia * Chest pain - reproducible on palpation of costosternal junction. When patient fell, she hit her chest on the fall - this might explain her complaints * Continue Coreg 3.125 mg po BID * + DM * + HTN - goal SBP 120 mmHg * STOP Procardia XL 30 mg po per day * Start Lisinopril 10 mg po per day (INDIO is better for BP management in Diabetics) * May escalate Lisinopril dose to achieve goal SBP - patient has been on Lisinopril as high as 40 mg po per day as an outpt * Escalation of antihypertensive only if HgB stabilized * Last LDL - 67; goal <100 * Continue Crestor 20 mg po per day * HBA1C - 9 - needs outpt Endocrine evaluation * No evidence of PE on CTA * Check TSH * HgB dropped to 6; this creates cardiovascular demand and may explain the micro elevation in troponin * Please transfuse to HgB >8 * Can resume plavix once bleeding is stabilized * Please call back with any additional questions Bhavesh Liu History of Present Illness Reason for Consultation: Chest pain Requesting Physician: Real hospitalist Attending Physician: Jose Ng MD History of Present Illness HPI: Patient is a 69 year old female with PMHx significant for HTN, HLD, hx of PE not on AC therapy s/t recurrent falls,recurrent chest pain, CVA on Plavix, 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, NAFLD Cirrhosis, gastroparesis, IDDM type 2, hypothyroidism, mood disorder, dementia and essential tremor that presented to the ER on 07/12 after sustaining a ground level fall while working on [email or web address]. She was evaluated by Dr. Richie Williamson with [facility] and underwent a closed reduction and cephalomedullary fixation of a right intertrochanteric hip fracture on 07/13/2024. Patient complained of chest pain over night. EKG demonstrates NSR with Right BBB Rate 76bpm. No acute ST-T wave changes. Troponin levels 16.3/29.9/28.4 Chest xray 07/14/24: IMPRESSION: 1. The cardiac silhouette is enlarged, similar to previous. 2. Prominent vascular and interstitial markings throughout both lungs, similar to previous. Probable mild early emphysema and superimposed mild CHF. Chest CTA: IMPRESSION: 1. No evidence of pulmonary embolism. 2. Unchanged cardiomegaly. 3. Minimal bilateral pleural effusion is noted. This is a new finding. 4. Segmental/subsegmental atelectasis is noted involving posterior basal segment of left lower lobe. This is a new finding. 5. Persistent multiple distal periesophageal lymph nodes are noted. Rest of the findings are unchanged compared to the previous CT scan. last echo 04/2024. New echo pending HgB 6.9 on 07/14, currently 7.9 Allergies Allergy/AdvReac Type Severity Reaction Status Date / Time adhesive Allergy Intermediate RASH Verified 02/22/24 19:12 Iodinated Contrast Media Allergy Intermediate burning Verified 02/22/24 19:12 and aching in veins latex Allergy Intermediate RASH Verified 02/22/24 19:12 Penicillins Allergy Intermediate n/v, rash Verified 02/22/24 19:12 Anesthetics - Amide Type - AdvReac Intermediate Vomiting Verified 02/22/24 19:12 Select A [Anesthetics - Amide Type] Anesthetics - Juju Type- AdvReac Intermediate Vomiting Verified 02/22/24 19:12 Parabens hepatitis B virus vaccine AdvReac Intermediate CHEST Verified 02/22/24 19:12 TIGHTNESS WITH 2ND DOSE. ketorolac AdvReac Intermediate ITCHING. Verified 02/22/24 19:12 tromethamine AdvReac Intermediate ITCHING. Verified 02/22/24 19:12 aspirin AdvReac Unknown CONTRAINDICATED---currently Verified 02/22/24 19:12 with gastric ulcer, per pt Home Medications Medication Instructions Recorded Confirmed Type bupropion HCl 100 mg tablet 100 mg PO .DAILY AT NOON 05/03/24 07/12/24 History bupropion HCl 100 mg tablet 150 mg PO QAM 05/03/24 07/12/24 History carvedilol 3.125 mg tablet 6.25 mg PO BID 05/03/24 07/12/24 History clopidogrel 75 mg tablet 75 mg PO QAM 05/03/24 07/12/24 History gabapentin 300 mg capsule 300 mg PO TID 05/03/24 07/12/24 History insulin glargine 100 unit/mL (3 18 unit subcut QAM 05/03/24 07/12/24 History mL) subcutaneous pen (Lantus Solostar U-100 Insulin) lisinopril 40 mg tablet 40 mg PO QAM 05/03/24 07/12/24 History metoclopramide HCl 5 mg tablet 5 mg PO QID PRN Nausea And Vomiting 05/03/24 07/12/24 History nifedipine 30 mg tablet,extended 30 mg PO QAM 05/03/24 07/12/24 History release omeprazole 20 mg capsule,delayed 20 mg PO DAILYBB 05/03/24 07/12/24 History release sennosides 8.6 mg-docusate sodium 1 tab PO DAILY PRN Constipation 05/03/24 07/12/24 History 50 mg tablet (Senexon-S) spironolactone 25 mg tablet 25 mg PO QAM 05/03/24 07/12/24 History cholecalciferol (vitamin D3) 25 25 mcg PO QAM 07/12/24 07/12/24 History mcg (1,000 unit) chewable tablet (Vitamin D3) gabapentin 100 mg capsule 100 mg PO HS 07/12/24 07/12/24 History insulin aspart U-100 100 unit/mL 6 unit subcut AC 07/12/24 07/12/24 History (3 mL) subcutaneous pen (Novolog FlexPen U-100 Insulin aspart) levothyroxine 137 mcg tablet 137 mcg PO DAILYBB 07/12/24 07/12/24 History rosuvastatin 20 mg tablet 20 mg PO QAM 07/12/24 07/12/24 History sertraline 100 mg tablet 200 mg PO QAM 07/12/24 07/12/24 History tramadol 50 mg tablet 50 mg PO Q8 PRN Pain 07/12/24 07/12/24 History Patient History Medical History Cellulitis of great toe of right foot Cellulitis of foot, right Surgical History History of oophorectomy S/P left knee arthroscopy H/O dilation and curettage H/O abdominal surgery small bowel repair lysis of adhesions History of hysterectomy History of cholecystectomy History of tubal ligation Family History Father Lung cancer Diabetes Sister Stomach cancer Social History Smoking Status: Never smoker Tobacco Type: Cigarettes Second Hand Exposure: No; Do You Dip or Chew Tobacco: No; Hx Alcohol Use: Yes Alcohol type: beer and wine Hx Substance Use: No Preferred Language: Yi Communication Ability: Effective Visual Impairment: No Limitations Hearing Ability: Normal Road Roller Operator Required: No Beliefs That Will Affect Care: None marital status: Current Living Situation: Spouse Current Living Situation Comment: with How many Children do You have: 0 Feels Safe at Home: Yes Assistive Devices: Cane, CPAP, Walker and Wheelchair Review of Systems Review of Systems: All systems reviewed & are unremarkable except as noted in HPI & below Physical Exam Physical Exam: As documented by Dr. Liu Obese No elevation in JVP + costosternal chest wall pain S1S2 2/6 Systolic Murmur c/w Aortic Sclerosis /MR CTA B on anterior exam + BS No C/C/E Right leg wound is clean and dressed - no induration Warm and perfused Results & Data Vital Signs (Past 12 Hours) Vital Signs Temp Pulse Pulse Resp BP Pulse Ox O2 Del Method 07/15/24 07:11 36.8 C 76 16 146/67 H 98 Oxymask 07/15/24 04:30 Oxymask 07/15/24 04:06 75 07/15/24 03:54 36.7 C 75 20 95/72 L 94 Nasal Cannula 07/15/24 02:15 99 Oxymask 07/14/24 22:44 81 22 95 O2 Flow Rate 07/15/24 07:11 2 07/15/24 04:30 2 07/15/24 04:06 07/15/24 03:54 2 07/15/24 02:15 2 07/14/24 22:44 2 Laboratory Results Cardiac Enzymes 07/14/24 07/14/24 07/15/24 Range/Units 15:50 21:00 00:40 Troponin I High Sens 11.1 16.3 H D 29.9 H D (0-14) pg/ml 07/15/24 Range/Units 05:45 Troponin I High Sens 28.4 H (0-14) pg/ml CBC 07/14/24 07/14/24 07/15/24 Range/Units 12:14 21:00 05:45 WBC 4.79 L (4.8-10.8) K/ul RBC 2.72 L (4.20-5.40) M/uL Hgb 6.9 L* 7.8 L 7.9 L (12.0-16.0) g/dl Hct 21.0 L 23.6 L 23.7 L (37.0-47.0) % Plt Count 70 L (130-400) K/uL Neut # (Auto) 3.62 (1.40-6.50) K/uL Lymph # (Auto) 0.69 L (1.20-3.40) K/uL [place] # (Auto) 0.38 (0.11-0.59) K/uL Eos # (Auto) 0.07 (0.00-0.50) K/uL Baso # (Auto) 0.02 (0.00-0.20) K/uL Comprehensive Metabolic Panel 07/15/24 Range/Units 05:45 Sodium 138 (136-145) mmol/L Potassium 4.2 (3.5-5.1) mmol/L Chloride 108 H (98-107) mmol/L Carbon Dioxide 25 (21-32) mmol/L BUN 21 (6-23) mg/dl Creatinine 0.85 (0.6-1.2) mg/dl Glucose 107 H (70-99(Fasting)) mg/dl Calcium 8.2 L (8.6-10.3) mg/dl Intake and Output 07/14/24 07/15/24 07/15/24 22:59 06:59 14:59 Intake Total 300 / 2300 Output Total 600 / 1850 1250 / 1850 Balance -300 / 450 -1250 / 450 Intake: Oral 300 / 300 Output: Urine Amount (Catheter) 600 / 1850 1250 / 1850 Krause/Indwelling 600 / 1850 1250 / 1850 Other: Other Intake Source NPO Diagnostic Findings Echo 04/2024 [facility] LVEF 55-60% Moderate concentric LVH RV normal size and function Mild MR ECHOcardiogram: 07-15-2024 LVEF 65-70% Concentric LVH (Moderate) LA - mildly dilatedAS - Mild Cannot exclude Bicuspid AoVTR - mild PASP est [address] PE: 07-15-2024
[2024-07-15 13:17] LABS: Partial Thromboplastin Ratio 0.9; Partial Thromboplastin Time 24 Seconds (21-31)
--- NOTE | 2024-07-15 13:50 | Electrocardiogram Report ---
Test Reason : Blood Pressure : */* mmHG Vent. Rate : 79 BPM Atrial Rate : 79 BPM P-R Int : 158 ms QRS Dur : 78 ms QT Int : 408 ms P-R-T Axes : 58 48 38 degrees QTcB Int : 467 ms Normal sinus rhythm RSR' or QR pattern in V1 suggests right ventricular conduction delay Borderline ECG When compared with ECG of 12-Jul-2024 12:20, QRS duration has decreased Confirmed by Alvin Williamson ([id number]) on 07/15/2024 1:49:45 PM Referred By: REFERRED SELF Confirmed By: Alvin Williamson
--- NOTE | 2024-07-15 14:04 | Electrocardiogram Report ---
Test Reason : Blood Pressure : */* mmHG Vent. Rate : 76 BPM Atrial Rate : 76 BPM P-R Int : 168 ms QRS Dur : 146 ms QT Int : 432 ms P-R-T Axes : 48 46 37 degrees QTcB Int : 486 ms Normal sinus rhythm Right bundle branch block Abnormal ECG When compared with ECG of 14-Jul-2024 14:14, (unconfirmed) Right bundle branch block is now Present Confirmed by Alvin Williamson ([id number]) on 07/15/2024 2:04:18 PM Referred By: REFERRED SELF Confirmed By: Alvin Williamson
[2024-07-15 16:33] LABS: Hematocrit (blood only) 23.1 % (37.0-47.0); Hemoglobin 7.6 g/dl (12.0-16.0)
--- NOTE | 2024-07-15 16:40 | Hospitalist Progress Note ---
Date of Service July 15, 2024 delayed entry date of service noted above Assessment & Plan (1) Displaced intertrochanteric fracture of right femur, initial encounter for closed fracture: (2) Contusion of right chest wall: (3) Abrasion, right knee, initial encounter: (4) Hyperglycemia due to type 2 diabetes mellitus: (5) Irritable bowel syndrome with constipation: (6) Hypothyroidism: (7) 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: (8) Chronic idiopathic thrombocytopenia: Plan per admitting service notes with addendum: Patient presents to the hospital after tripping on a step and falling in her driveway. Evaluation revealed right intertrochanteric hip fracture. Patient requires hospital level care for specialty consultation, pain control and possible surgical intervention. High risk for further injury and decompensation if not cared for in the hospital Admit to the MedSurg unit Pain control Consult orthopedics Monitor glucose and cover with short acting insulin, continue her long-acting insulin at a lower dose since patient may be n.p.o. for possible surgical intervention Continue other outpatient medications as ordered Bacitracin and dressing to knee abrasion Case management for anticipated rehabilitation placement needs Monitor electrolytes, renal function and hemoglobin the setting of hip fracture Age-related osteoporosis with current pathologic fracture, right femur 07/12 s/p Closed reduction and cephalomedullary fixation right intertrochanteric hip fracture PT/OT eval pain control start Lovenox SC for DVT prophylaxis when Hg stable Acute Blood loss anemia Hypotension, likely from above s/p 1 unit pRBC Hg 6.9 --> 7.8 monitor closely Chronic ITP monitor platelets Demand ischemia was reporting chest pain 07/14 trop 16, 29, 28 EKG no signs of acute ischemia Senior Security Engineer consulted symptoms felt to be musculoskeletal monitor DM 2 HTN Irritable bowel syndrome with constipation Hypothyroidism 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 - monitor Disposition denied acute rehab, peer to peer evaluation done with [facility] Dr. Butler explained to him that patient only had 1 PT session in the setting of hypotension, acute blood loss anemia Dr Butler recommending to submit updated PT eval in 2-3 days to reconsider acute rehab stay plan of care discussed with patient and family in detail and at length all questions answered they are understanding, agreeable, comfortable with the plan of care Admission and Anticipated Discharge Date Admission Date: July 12, 2024 Subjective ff up for s/p R hip surgery, etc events overnight noted trop increased 16--> 29 transferred to PCU seen resting in bed, not in distress feels tired no chest pain, dyspnea, palpitations, dizziness minimal R hip pain no other symptoms Review of Systems Review of Systems: all noted and negative except for above Physical Exam Physical Exam: General- oriented x 3, not in distress, speaks in sentences with no effort or accessory muscle use Eyes- anicteric Neck- no JVD Lungs- clear breath sounds bilaterally, no rales/wheezes Heart- normal rate, regular rhythm; no murmurs Abdomen- normal bowel sounds, nondistended, soft, nontender Extremities- no pretibial edema, no calf tenderness R hip: dressing in place, no bleeding or discharge Neuro- alert, oriented x 3; no gross focal neurologic deficits Skin- warm & dry Results & Data Results & Data Vital Signs (Past 12 Hours) Vital Signs Temp Pulse Resp BP Pulse Ox O2 Del Method O2 Flow Rate 07/15/24 15:22 36.6 C 80 14 115/54 L 96 Oxymask 07/15/24 11:47 88 L 07/15/24 11:07 36.6 C 80 15 126/62 98 Oxymask 2 07/15/24 11:04 Room Air 07/15/24 07:11 36.8 C 76 16 146/67 H 98 Oxymask 2 all noted and reviewed including below (4) Hyperglycemia due to type 2 diabetes mellitus Diabetes mellitus termination clerk insulin use: unspecified termination clerk insulin use status Qualified Code(s): E11.65 - Type 2 diabetes mellitus with hyperglycemia
[2024-07-16 08:07] LABS: Basophils # (auto) 0.02 K/uL (0.00-0.20); Basophils % (auto) 0.4 %; Eosinophils # (auto) 0.08 K/uL (0.00-0.50); Eosinophils % (auto) 1.6 %; Hematocrit (blood only) 24.5 % (37.0-47.0); Immature Granulocytes # (auto) 0.03 K/uL (0.01-0.20); Immature Granulocytes % (auto) 0.6 %; Lymphocytes # (auto) 0.74 K/uL (1.20-3.40); Lymphocytes % (auto) 14.4 %; Mean Corpuscular Hemoglobin 28.6 pg (25.0-34.0); Mean Corpuscular Hgb Conc 32.7 g/dL (32.0-36.0); Mean Corpuscular Volume 87.5 fL (80.0-100.0); Mean Platelet Volume 10.5 fL (9.4-12.4); Monocytes % (auto) 7.8 %; Neutrophils # (auto) 3.88 K/uL (1.40-6.50); Neutrophils % (auto) 75.2 %; Platelet Count 82 K/uL (130-400); RDW Coefficient of Variation 12.6 % (11.5-14.5); RDW Standard Deviation 39.9 fL (36.4-46.3); White Blood Count 5.15 K/ul (4.8-10.8)
--- NOTE | 2024-07-16 08:26 | Orthopedic Progress Note ---
Date of Service July 16, 2024 Assessment & Plan (1) Displaced intertrochanteric fracture of right femur, initial encounter for closed fracture: (2) Ground-level fall: (3) Acute hyperglycemia: (4) Chronic idiopathic thrombocytopenia: Plan From an orthopedic standpoint, patient is doing well postoperative day #3 status post closed reduction and cephalomedullary nailing of Her right intertrochanteric hip fracture. CTPE negative. patient okay for anticoagulation from orthopaedic standpoint Patient notes that she feels dizzy today. Patient may weight-bear as tolerated. She should work her physical therapy and Occupational Therapy determine appropriate discharge plan for home. She will follow-up with me in 2 to 3 weeks for wound check and staple removal. Keep dressings clean and dry until that time. Admission and Anticipated Discharge Date Admission Date: July 12, 2024 Subjective From a hip standpoint, the patient notes that she is doing well. She states that she feels dizzy today. Physical Exam Physical Exam: Dressings clean dry and intact. Patient demonstrates active EHL/FHL/GSC/TA motor function. Her foot is warm and well-perfused. Sensation intact to light touch throughout the lower extremity. Results & Data Vital Signs (Past 12 Hours) Vital Signs Temp Pulse Pulse Resp BP Pulse Ox O2 Del Method 07/16/24 07:39 36.6 C 88 18 156/72 H 93 Oxymask 07/16/24 03:13 36.7 C 76 20 135/70 91 Oxymask 07/15/24 22:58 98 H 20 98 07/15/24 22:57 37.0 C 72 18 138/68 99 Nasal Cannula 07/15/24 22:17 Oxymask 07/15/24 21:56 72 07/15/24 20:32 36.6 C 76 18 118/56 L 90 Oxymask O2 Flow Rate 07/16/24 07:39 2 07/16/24 03:13 2 07/15/24 22:58 2 07/15/24 22:57 2 07/15/24 22:17 2 07/15/24 21:56 07/15/24 20:32 2
[2024-07-16 08:29] LABS: BUN Creatinine Ratio 26.1 (10-20); Calcium 8.8 mg/dl (8.6-10.3); Creatinine Clr Calc Pharmacy 78.9 ml/min; Potassium 4.4 mmol/L (3.5-5.1)
--- NOTE | 2024-07-16 09:29 | Fluoroscopy Report ---
EXAM: FL Fluoroscopy < 1 Hour INDICATION: Right femoral nail. TECHNIQUE: 196.3 seconds fluoroscopy utilized and 5 images obtained. COMPARISON: No relevant prior studies available. FINDINGS: Images demonstrate well-seated femoral nail with proximal locking bolt and distal locking screw. No fracture. Alignment anatomic. No dislocation. IMPRESSION: Fluoroscopy during right femoral nailing. ACT 112: Negative or not required by law. MTDD
--- NOTE | 2024-07-16 13:42 | Hospitalist Progress Note ---
Date of Service July 16, 2024 Assessment & Plan (1) Displaced intertrochanteric fracture of right femur, initial encounter for closed fracture: (2) Acute blood loss anemia: Plan: Expected due to fracture (3) Contusion of right chest wall: (4) Abrasion, right knee, initial encounter: (5) Hyperglycemia due to type 2 diabetes mellitus: (6) Irritable bowel syndrome with constipation: (7) Hypothyroidism: (8) 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: (9) Chronic idiopathic thrombocytopenia: (10) Ground-level fall: (11) DM type 2 (diabetes mellitus, type 2): Plan Patient's hemoglobin has stabilized now that fracture has been repaired Continue to monitor intermittently Encourage patient to participate with therapies Communication with case management, pursuing rehab application and possibilities Continue insulin management of diabetes, glucose fluctuating Anticipate patient will be ready for discharge when rehab bed available. Admission and Anticipated Discharge Date Admission Date: July 12, 2024 Subjective Patient feeling a bit better. Understands she needs to start working with physical therapy. Nurses at bedside doing incisional care Physical Exam Physical Exam: Constitutional: Alert, nontoxic HEENT: Mucous membranes moist. Lungs: Clear to auscultation, decreased, no wheezes rales or rhonchi CV: S1-S2, regular Abdomen: Soft, nontender, nondistended Extremities: Right hip incisions clean and dry, latoya intact, hematoma and dependent portion of the hip as expected Neuro: No focal deficits, generalized weakness Psych: Cooperative, normal mood Results & Data Results & Data Vital Signs (Past 12 Hours) Vital Signs Temp Pulse Resp BP BP Pulse Ox O2 Del Method 07/16/24 11:37 36.6 C 82 18 138/79 98 Room Air 07/16/24 07:39 36.6 C 88 18 156/72 H 93 Oxymask 07/16/24 03:13 36.7 C 76 20 135/70 91 Oxymask O2 Flow Rate 07/16/24 11:37 07/16/24 07:39 2 07/16/24 03:13 2 Diagnostic Findings Reviewed imaging, laboratory and diagnostic studies. Pertinent findings as below. Hemoglobin 8.0, improved BMP stable Glucoses reviewed (5) Hyperglycemia due to type 2 diabetes mellitus Diabetes mellitus exterminator helper insulin use: unspecified [facility] insulin use status Qualified Code(s): E11.65 - Type 2 diabetes mellitus with hyperglycemia (11) DM type 2 (diabetes mellitus, type 2) Diabetes mellitus complication status: without complication Diabetes mellitus exterminator helper insulin use: with exterminator helper use Qualified Code(s): E11.9 - Type 2 diabetes mellitus without complications; Z79.4 - extermination inspector (current) use of insulin
[2024-07-16] MEDS: MELATONIN 3 MG TAB PO PRN (20:44)
[2024-07-16] MEDS: HYDROmorphone INJ 0.5 MG/0.5 ML SYR IV PRN (22:50)
--- NOTE | 2024-07-17 09:06 | Orthopedic Progress Note ---
Date of Service July 17, 2024 Assessment & Plan (1) Displaced intertrochanteric fracture of right femur, initial encounter for closed fracture: (2) Ground-level fall: (3) Acute hyperglycemia: (4) Chronic idiopathic thrombocytopenia: Plan From an orthopedic standpoint, patient is doing well postoperative day #4 status post closed reduction and cephalomedullary nailing of Her right intertrochanteric hip fracture. CTPE negative. patient okay for anticoagulation from orthopaedic standpoint Patient may weight-bear as tolerated. She should work her physical therapy and Occupational Therapy determine appropriate discharge plan for home. She will follow-up with me in 2 to 3 weeks for wound check and staple removal. Keep dressings clean and dry until that time. Admission and Anticipated Discharge Date Admission Date: July 12, 2024 Subjective Patient feeling a bit better. wants to work with physical therapy. no acute complaints Physical Exam Physical Exam: Dressings clean dry and intact. Patient demonstrates active EHL/FHL/GSC/TA motor function. Her foot is warm and well-perfused. Sensation intact to light touch throughout the lower extremity. Results & Data Vital Signs (Past 12 Hours) Vital Signs Temp Pulse Pulse Resp BP BP Pulse Ox 07/17/24 08:15 36.6 C 68 20 136/62 100 07/17/24 03:33 71 157/75 H 07/16/24 23:35 81 17 98 07/16/24 21:57 36.8 C 70 18 131/70 99 07/16/24 21:56 O2 Del Method O2 Flow Rate 07/17/24 08:15 Nasal Cannula 3 07/17/24 03:33 07/16/24 23:35 2 07/16/24 21:57 Nasal Cannula 3.0 07/16/24 21:56 Nasal Cannula, CPAP 2
--- NOTE | 2024-07-17 12:32 | Hospitalist Progress Note ---
Date of Service July 17, 2024 Assessment & Plan (1) Displaced intertrochanteric fracture of right femur, initial encounter for closed fracture: (2) Acute blood loss anemia: Plan: Expected due to fracture (3) Contusion of right chest wall: (4) Abrasion, right knee, initial encounter: (5) Hyperglycemia due to type 2 diabetes mellitus: (6) Irritable bowel syndrome with constipation: (7) Hypothyroidism: (8) 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: (9) Chronic idiopathic thrombocytopenia: (10) Ground-level fall: (11) DM type 2 (diabetes mellitus, type 2): Plan Patient presents to the hospital after tripping on a step and falling in her driveway. Evaluation revealed right intertrochanteric hip fracture. Age-related osteoporosis with current pathologic fracture, right femur s/p Closed reduction and cephalomedullary fixation right intertrochanteric hip fracture on 07/13 PT/OT eval pain control Started on heparin for DVT prophylaxis Possible rehab placement Acute Blood loss anemia Hypotension, likely from above s/p 1 unit pRBC Hemoglobin stable at 8.0 Monitor CBC and transfuse if hemoglobin is less than 7 Demand ischemia was reporting chest pain 07/14 trop 16, 29, 28 EKG no signs of acute ischemia Master Motorcycle Technician consulted symptoms felt to be musculoskeletal monitor DM 2-On insulin glargine and aspart, continue HTN- Continue Coreg, nifedipine Irritable bowel syndrome with constipation Hypothyroidism- Continue levothyroxine 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- continue Full code DVT prophylaxis heparin Dispositiondischarge to [facility] after bed is available Please note the above document was generated using voice recognition software. It may contain grammatical, syntax or spelling errors. Any formal questions or concerns about the content, text or information contained within the body of this dictation should be directly addressed to the provider for clarification Admission and Anticipated Discharge Date Admission Date: July 12, 2024 Subjective Patient seen and examined at bedside. She is comfortable lying in the bed without any discomfort. She is working well with physical therapy. No significant events overnight Review of Systems Review of Systems: All systems reviewed & are unremarkable except as noted in Subjective Physical Exam Physical Exam: Constitutional: Alert oriented x 3; not in distress. Respiratory: normal respiratory effort, lungs clear to auscultation, no wheeze, rales, rhonchi. Normal insp/exp effort, no accessory muscle use Cardiovascular: RRR, no murmur, no edema Vessels: no JVD or carotid bruit Chest: normal inspection of chest Abdomen: normal bowel sounds, soft, nontender, no hepatosplenomegaly Musculoskeletal: Dressing intact on right hip; no overlying soakage. Neurologic: PERRL, EOMI, accommodation nl, no face palsy, no dysarthria CN's II- XI intact bilaterally and moves all extremities Psychiatric: A+Ox3, euthymic affect Results & Data Results & Data Vital Signs (Past 12 Hours) Vital Signs Temp Pulse Resp BP Pulse Ox O2 Del Method O2 Flow Rate 07/17/24 09:00 Room Air, CPAP 07/17/24 08:15 36.6 C 68 20 136/62 100 Nasal Cannula 3 07/17/24 03:33 71 157/75 H (5) Hyperglycemia due to type 2 diabetes mellitus Diabetes mellitus long term acute care registered nurse insulin use: unspecified long term acute care registered nurse insulin use status Qualified Code(s): E11.65 - Type 2 diabetes mellitus with hyperglycemia (11) DM type 2 (diabetes mellitus, type 2) Diabetes mellitus complication status: without complication Diabetes mellitus long term acute care registered nurse insulin use: with halfway use Qualified Code(s): E11.9 - Type 2 diabetes mellitus without complications; Z79.4 - termite renewal inspector (current) use of insulin
[2024-07-17] MEDS: HEPARIN SOD 5,000 UNIT/0.5 ML VIAL SQ SCH (15:04)
[2024-07-18 07:40] VITALS: BP 161/72; PULSE 79; RESP 16; TEMP 98.1; O2SAT 96
[2024-07-18 07:40] LABS: Basophils # (auto) 0.02 K/uL (0.00-0.20); Basophils % (auto) 0.5 %; Eosinophils # (auto) 0.09 K/uL (0.00-0.50); Eosinophils % (auto) 2.1 %; Hematocrit (blood only) 25.3 % (37.0-47.0); Hemoglobin 8.2 g/dl (12.0-16.0); Immature Granulocytes # (auto) 0.02 K/uL (0.01-0.20); Immature Granulocytes % (auto) 0.5 %; Lymphocytes # (auto) 0.89 K/uL (1.20-3.40); Lymphocytes % (auto) 20.6 %; Mean Corpuscular Hemoglobin 28.8 pg (25.0-34.0); Mean Corpuscular Hgb Conc 32.4 g/dL (32.0-36.0); Mean Corpuscular Volume 88.8 fL (80.0-100.0); Mean Platelet Volume 10.5 fL (9.4-12.4); Monocytes # (auto) 0.32 K/uL (0.11-0.59); Monocytes % (auto) 7.4 %; Neutrophils # (auto) 2.97 K/uL (1.40-6.50); Neutrophils % (auto) 68.9 %; Platelet Count 97 K/uL (130-400); RDW Coefficient of Variation 13.2 % (11.5-14.5); RDW Standard Deviation 41.3 fL (36.4-46.3); Red Blood Count 2.85 M/uL (4.20-5.40); White Blood Count 4.31 K/ul (4.8-10.8)
--- NOTE | 2024-07-18 09:35 | Hospitalist Progress Note ---
Date of Service July 18, 2024 Assessment & Plan (1) Displaced intertrochanteric fracture of right femur, initial encounter for closed fracture: (2) Acute blood loss anemia: Plan: Expected due to fracture (3) Contusion of right chest wall: (4) Abrasion, right knee, initial encounter: (5) Hyperglycemia due to type 2 diabetes mellitus: (6) Irritable bowel syndrome with constipation: (7) Hypothyroidism: (8) 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: (9) Chronic idiopathic thrombocytopenia: (10) Ground-level fall: (11) DM type 2 (diabetes mellitus, type 2): Plan Patient presents to the hospital after tripping on a step and falling in her driveway. Evaluation revealed right intertrochanteric hip fracture. Age-related osteoporosis with current pathologic fracture, right femur s/p Closed reduction and cephalomedullary fixation right intertrochanteric hip fracture on 07/13 PT/OT eval pain control Started on heparin for DVT prophylaxis Possible rehab placement Acute Blood loss anemia Hypotension, likely from above s/p 1 unit pRBC Hemoglobin stable at 8.0 Monitor CBC and transfuse if hemoglobin is less than 7 Demand ischemia was reporting chest pain 07/14 trop 16, 29, 28 EKG no signs of acute ischemia Gimp Buttonhole Machine Operator consulted symptoms felt to be musculoskeletal monitor DM 2-On insulin glargine and aspart, continue HTN- Continue Coreg, nifedipine Irritable bowel syndrome with constipation Hypothyroidism- Continue levothyroxine 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- continue Full code DVT prophylaxis heparin Dispositiondischarge to [facility] after bed is available Please note the above document was generated using voice recognition software. It may contain grammatical, syntax or spelling errors. Any formal questions or concerns about the content, text or information contained within the body of this dictation should be directly addressed to the provider for clarification Admission and Anticipated Discharge Date Admission Date: July 12, 2024 Subjective Patient seen and examined at bedside. Comfortable; not in distress. Denies fever, chills, chest pain, shortness of breath, abdominal pain or urinary symptoms. No significant overnight events Review of Systems Review of Systems: All systems reviewed & are unremarkable except as noted in Subjective Physical Exam Physical Exam: Constitutional: Alert oriented x 3; not in distress. Respiratory: normal respiratory effort, lungs clear to auscultation, no wheeze, rales, rhonchi. Normal insp/exp effort, no accessory muscle use Cardiovascular: RRR, no murmur, no edema Vessels: no JVD or carotid bruit Chest: normal inspection of chest Abdomen: normal bowel sounds, soft, nontender, no hepatosplenomegaly Musculoskeletal: Dressing intact on right hip; no overlying soakage. Neurologic: PERRL, EOMI, accommodation nl, no face palsy, no dysarthria CN's II- XI intact bilaterally and moves all extremities Psychiatric: A+Ox3, euthymic affect Results & Data Results & Data Vital Signs (Past 12 Hours) Vital Signs Temp Pulse Pulse Resp BP Pulse Ox O2 Del Method 07/18/24 07:39 36.7 C 79 16 161/72 H 96 Room Air 07/17/24 22:30 62 15 98 O2 Flow Rate 07/18/24 07:39 07/17/24 22:30 2 (5) Hyperglycemia due to type 2 diabetes mellitus Diabetes mellitus mcfp insulin use: unspecified termite exterminator helper insulin use status Qualified Code(s): E11.65 - Type 2 diabetes mellitus with hyperglycemia (11) DM type 2 (diabetes mellitus, type 2) Diabetes mellitus complication status: without complication Diabetes mellitus termite exterminator helper insulin use: with termite exterminator helper use Qualified Code(s): E11.9 - Type 2 diabetes mellitus without complications; Z79.4 - jail (current) use of insulin
--- NOTE | 2024-07-18 09:35 | Orthopedic Progress Note ---
Date of Service July 18, 2024 Assessment & Plan (1) Displaced intertrochanteric fracture of right femur, initial encounter for closed fracture: (2) Ground-level fall: (3) Acute hyperglycemia: (4) Chronic idiopathic thrombocytopenia: Plan From an orthopedic standpoint, patient is doing well postoperative day #5 status post closed reduction and cephalomedullary nailing of Her right intertrochanteric hip fracture. Patient may weight-bear as tolerated. She should work her physical therapy and Occupational Therapy determine appropriate discharge plan. Out of bed to chair 3 times daily with all meals. She will follow-up with me in 2 to 3 weeks for wound check and staple removal. Keep dressings clean and dry until that time. Admission and Anticipated Discharge Date Admission Date: July 12, 2024 Subjective Patient doing well this morning. Notes she has not yet worked with therapy. Physical Exam Physical Exam: Dressings clean dry and intact. Patient demonstrates active EHL/FHL/GSC/TA motor function. Her foot is warm and well-perfused. Sensation intact to light touch throughout the lower extremity. Results & Data Vital Signs (Past 12 Hours) Vital Signs Temp Pulse Pulse Resp BP Pulse Ox O2 Del Method 07/18/24 07:39 36.7 C 79 16 161/72 H 96 Room Air 07/17/24 22:30 62 15 98 O2 Flow Rate 07/18/24 07:39 07/17/24 22:30 2
[2024-07-18 09:57] LABS: BUN Creatinine Ratio 27.9 (10-20); Calcium 8.6 mg/dl (8.6-10.3); Creatinine Clr Calc Pharmacy 74.9 ml/min; Potassium 4.1 mmol/L (3.5-5.1)
--- NOTE | 2024-07-18 14:51 | Discharge Summary ---
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 Was taking out some trash into her garage when upon returning into the house she tripped on the stair and fell to the ground. She was unable to get up. Immediate pain in the hip and on her right chest. She laid on the ground outside for approximately 1 hour until somebody driving by saw her and came and assisted her. Brought to the emergency room. In the emergency room initially hypothermic and easily rewarmed. Extensive trauma imaging ensued and showed a right intertrochanteric fracture. Referred to our service for further management. At time of my evaluation patient's pain is improved. Hypothermia has resolved. She denies any shortness of breath. She states otherwise she has been feeling well. No fever or chills. No new problems with her bowels or bladder. Has been eating and drinking fairly well at home. Has previous history of left hip surgery performed by Dr. Gooden. Admission Exam Per Admitting Provider Constitutional: Alert, mild to moderate distress due to pain nontoxic HEENT: Mucous membranes moist. Sclera clear Neck: Soft, no adenopathy Lungs: Clear to auscultation, decreased, no wheezes rales or rhonchi CV: S1-S2, regular Abdomen: Soft, nontender, nondistended Extremities: 1+ pretibial edema Musculoskeletal: Right lower extremity significant tenderness to any type of motion., Abrasion right knee Neuro: No focal deficits, generalized weakness Psych: Cooperative, normal mood Principal Diagnosis Age-related osteoporosis with current pathologic fracture, right femur s/p Closed reduction and cephalomedullary fixation right intertrochanteric hip fracture on 07/13 Discharge Exam Constitutional: Alert oriented x 3; not in distress. Respiratory: normal respiratory effort, lungs clear to auscultation, no wheeze, rales, rhonchi. Normal insp/exp effort, no accessory muscle use Cardiovascular: RRR, no murmur, no edema Vessels: no JVD or carotid bruit Chest: normal inspection of chest Abdomen: normal bowel sounds, soft, nontender, no hepatosplenomegaly Musculoskeletal: Dressing intact on right hip; no overlying soakage. Neurologic: PERRL, EOMI, accommodation nl, no face palsy, no dysarthria CN's II- XI intact bilaterally and moves all extremities Psychiatric: A+Ox3, euthymic affect Discharge Data Allergies Allergy/AdvReac Type Severity Reaction Status Date / Time adhesive Allergy Intermediate RASH Verified 02/22/24 19:12 Iodinated Contrast Media Allergy Intermediate burning Verified 02/22/24 19:12 and aching in veins latex Allergy Intermediate RASH Verified 02/22/24 19:12 Penicillins Allergy Intermediate n/v, rash Verified 02/22/24 19:12 Anesthetics - Amide Type - AdvReac Intermediate Vomiting Verified 02/22/24 19:12 Select A [Anesthetics - Amide Type] Anesthetics - Juju Type- AdvReac Intermediate Vomiting Verified 02/22/24 19:12 Parabens hepatitis B virus vaccine AdvReac Intermediate CHEST Verified 02/22/24 19:12 TIGHTNESS WITH 2ND DOSE. ketorolac AdvReac Intermediate ITCHING. Verified 02/22/24 19:12 tromethamine AdvReac Intermediate ITCHING. Verified 02/22/24 19:12 aspirin AdvReac Unknown CONTRAINDICATED---currently Verified 02/22/24 19:12 with gastric ulcer, per pt Consultations 07/12/24 14:38 ED Decision to Admit Stat 07/12/24 17:19 Consult Orthopedic Surgery Routine 07/15/24 07:33 Consult Cardiology Routine Procedures Performed Operation Date: 07/13/24 08:00 Actual Procedures p Closed reduction and cephalomedullary fixation right intertrochanteric hip fracture. Physician directed fluoroscopy less than 1 hour(Right) - Richie Williamson DO Ordered Studies 07/12/24 12:14 CT abd pelvis wo con Stat CT cervical spine wo con Stat CT chest diagnostic wo con Stat CT head/brain wo con Stat 07/13/24 [place] hip RT 2-3V Routine 07/15/24 02:32 CT angio chest PE protocol Stat Diabetes Follow up Diabetes Follow-up Needed for HgbA1c >9% Hospital Course (1) Displaced intertrochanteric fracture of right femur, initial encounter for closed fracture: (2) Acute blood loss anemia: (3) Contusion of right chest wall: (4) Abrasion, right knee, initial encounter: (5) Hyperglycemia due to type 2 diabetes mellitus: (6) Irritable bowel syndrome with constipation: (7) Hypothyroidism: (8) 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: (9) Chronic idiopathic thrombocytopenia: (10) Ground-level fall: (11) DM type 2 (diabetes mellitus, type 2): Plan Patient presents to the hospital after tripping on a step and falling in her driveway. Evaluation revealed right intertrochanteric hip fracture. Age-related osteoporosis with current pathologic fracture, right femur s/p Closed reduction and cephalomedullary fixation right intertrochanteric hip fracture on 07/13 Patient underwent PT OT eval; pain was controlled with pain medication. She was given 1 unit of packed RBC for low hemoglobin level during postoperative period. Heparin was ordered for 30 more days for DVT prophylaxis Patient discharged to [facility] Acute Blood loss anemia Hypotension, likely from above s/p 1 unit pRBC Hemoglobin stable at 8.0 at the time of discharge. Demand ischemia was reporting chest pain 07/14 trop 16, 29, 28 EKG no signs of acute ischemia Trains Service Conductor consulted; symptoms felt to be musculoskeletal; no recurrence of chest pain. Please note the above document was generated using voice recognition software. It may contain grammatical, syntax or spelling errors. Any formal questions or concerns about the content, text or information contained within the body of this dictation should be directly addressed to the provider for clarification Total Time Total Time Spent Total Time Spent (In Minutes): 34 Total Time Includes: Examination of the Patient, Discharge Planning, Medication Reconciliation, Communication With Other Providers and Other Discharge Plan Discharge Items Patient Disposition: Transfer Inpatient Rehab Fac Reason For Visit: HIP FRACTURE Discharge Diagnosis: Age-related osteoporosis with current pathologic fracture, right femur s/p Closed reduction and cephalomedullary fixation right intertrochanteric hip fracture on 07/13 Activity: Resume your previous activity Non-emergency contact: Primary Care Provider Call non-emergency contact if: you have any medication questions and your symptoms worsen Follow-up/Referrals: Adria Hilliard MD [Primary Care Provider] - Diet: Regular Addtl Attending Provider Instructions: You were admitted to the hospital due to hip fracture. You underwent surgery by Dr. Richie Williamson. You can weight-bear as tolerated. You are prescribed following medication: 1) Take Tylenol 650 mg 3 times a day for pain control. If the pain is very sev ere; you can take oxycodone as needed. 2) Heparin 5000 subcu 3 times a day has been prescribed for DVT prophylaxis. Monitor for any signs or symptoms of bleeding including black tarry stool, bleeding from surgical site, hematemesis at the rehab. Please follow-up with Dr. Williamson in 2 to 3 weeks for wound check and staple removal. Lisinopril is currently on hold as her blood pressure is on the lower side. Please resume it if her blood pressure continues to be higher than 130/80 consistently for more than 2 days despite being on other antihypertensives Addtl Record Label Intern Provider Instructions: DIABETES RECOMMENDATIONS: - Aim to maintain blood sugar levels below 180 (ideally less than 140 before meals) to help support healing and lower risk of post-op infectious complications. - Eliminate any sugar-sweetened drinks including apple cider, juices, regular soda, sweet tea, etc. Choose zero drinks instead. - Use your Dexcom data to guide further dietary changes. For example, if your blood sugar is always spiking after supper, you either need less carbs/starches with your supper meal or an increase in your Novolog dose with your supper meal to help stabilize blood sugar levels. May people find it helpful to track their before meal blood sugar level and insulin dosing in a notebook to help you better see trends in your blood sugar levels. - Take your Novolog 5-10 minutes before breakfast and supper meals only. You may need to take a small dose of Novolog when you consume a snack for lunch or before bed. Please discuss further with your outpatient provider. Pending Studies at Discharge: No Stand-Alone Forms: My [facility] Skilled Items Patient informed of condition?: No DNR: No Discharge Level of Care: Acute rehab Communicable Disease: No Discharge Prognosis: Stable Lines: None Urinary Catheter: No Medications and DC Order Prescriptions: New acetaminophen [Tylenol Extra Strength] 500 mg Tablet 650 mg PO TID 20 Days Qty: 78 0RF oxycodone 5 mg Tablet 5 mg PO Q6H PRN (Reason: pain) Qty: 7 0RF heparin (porcine) 5,000 unit/mL solution 5,000 unit subcut Q8H 30 Days Qty: 90 0RF Continued sennosides-docusate sodium [Senexon-S] 8.6-50 mg tablet 1 tab PO DAILY PRN (Reason: Constipation) nifedipine 30 mg tablet extended release 30 mg PO QAM clopidogrel 75 mg tablet 75 mg PO QAM spironolactone 25 mg tablet 25 mg PO QAM carvedilol 3.125 mg tablet 6.25 mg PO BID bupropion HCl 100 mg tablet 100 mg PO .DAILY AT NOON metoclopramide HCl 5 mg tablet 5 mg PO QID PRN (Reason: Nausea And Vomiting) gabapentin 300 mg capsule 300 mg PO TID Rx Instructions: MORNING,NOON AND BEFORE BED omeprazole 20 mg capsule,delayed release(DR/EC) 20 mg PO DAILYBB insulin glargine [Lantus Solostar U-100 Insulin] 100 unit/mL (3 mL) insulin pen 18 unit SUBCUT QAM bupropion HCl 100 mg Tablet 150 mg PO QAM insulin aspart U-100 [Novolog FlexPen U-100 Insulin] 100 unit/mL (3 mL) insulin pen 6 unit SUBCUT AC Rx Instructions: 6 OR MORE UNITS FOLLOWING CHART PROVIDED BY MTM ...MAX DOSE OF 30 UNTIS gabapentin 100 mg capsule 100 mg PO HS Rx Instructions: TAKE ALONG WITH 300MG PER PT cholecalciferol (vitamin D3) [Vitamin D3] 25 mcg (1,000 unit) Tablet,Chewable 25 mcg PO QAM levothyroxine 137 mcg tablet 137 mcg PO DAILYBB sertraline 100 mg tablet 200 mg PO QAM rosuvastatin 20 mg tablet 20 mg PO QAM Held lisinopril 40 mg tablet 40 mg PO QAM Hold Instructions: Resume on 07/24/24. Restart if systolic Blood pressure is greater than 130/80 mm Hg consistently for 2 days Discontinued tramadol 50 mg tablet 50 mg PO Q8 PRN (Reason: Pain) Discharge Orders: Discharge Order (Routine); Ordered 07/18/24 Ordered By: Efren Tilley/Other Patient Handouts: High Blood Sugar (Hyperglycemia), Managing Type 2 Diabetes Admission Data Admit Date/Time: 07/12/24 15:03 Attending Provider: Efren Allen Admit Provider: Santino Lopez Primary Care Provider: Adria Hilliard Other Providers: [place]; Lauryn Yepez [facility]; [facility]; Santino Lopez; Richie Williamson
== END 2024-07-18 14:26 | DRG 481 ==
LOC: ED 12:07 → SUATTDRO 15:03 → EDINP 15:03 → 3N 15:33 → 2E 07-15 03:43 → 3N 07-17 16:54

== ENCOUNTER 2025-04-02 16:16 | Inpatient (IN) ==
[2025-04-02 17:07] LABS: Hematocrit (blood only) 35.8 % (37.0-47.0); Hemoglobin 12.4 g/dl (12.0-16.0); Immature Granulocytes # (auto) 0.06 K/uL (0.01-0.20); Immature Granulocytes % (auto) 0.7 %; Mean Corpuscular Hemoglobin 30.1 pg (25.0-34.0); Mean Corpuscular Volume 86.9 fL (80.0-100.0); Platelet Count 155 K/uL (130-400); RDW Standard Deviation 41.4 fL (36.4-46.3); Red Blood Count 4.12 M/uL (4.20-5.40); White Blood Count 8.65 K/ul (4.8-10.8)
[2025-04-02] MEDS: PLASMA-LYTE A 500 ML IV ONE ×2 (17:15→19:35)
[2025-04-02 17:21] LABS: Alanine Aminotransferase 26.0 U/L (7-52); Albumin Globulin Ratio 1.1 (0.9-2); Alkaline Phosphatase 90.0 U/L (34-104); Anion Gap 10.0 (3-11); Bilirubin,Total 0.6 mg/dl (0.2-1.0); Blood Urea Nitrogen 55.0 mg/dl (6-23); Calcium 9.4 mg/dl (8.6-10.3); Carbon Dioxide 19.0 mmol/L (21-32); Chloride 107.0 mmol/L (98-107); Creatinine Clr Calc Pharmacy 28.6 ml/min; Globulin 3.8 gm/dl (2.5-4.0); Glucose 149.0 mg/dl (70-99(Fasting)); Lipase 50.0 U/L (11-82); Magnesium 2.2 mg/dl (1.7-2.4); Potassium 4.5 mmol/L (3.5-5.1); Sodium 136.0 mmol/L (136-145); Total Protein 8.0 gm/dl (6.0-8.3)
[2025-04-02 17:31] LABS: INR 1.0 (0.9-1.1); Partial Thromboplastin Time 23 Seconds (21-31); Prothrombin Time 11.0 Seconds (9.0-12.0)
--- NOTE | 2025-04-02 17:36 | XRay Report ---
Clinical History: Chest pain Technique: A frontal view of the chest was obtained Comparison is made to the prior examination dated 07/12/2024 Findings: There are no confluent pulmonary infiltrates. The heart size is within normal limits. No pleural effusion or pneumothorax is seen. There is no definite pulmonary nodule. No fracture is noted. No foreign body is seen Impression: No active disease Electronically signed by Jax Bravo 04-02-2025 5:36 PM
[2025-04-02 18:25] LABS: Chlamydia pneumoniae PCR Not Detected (NotDetected); Coronavirus 229E PCR Not Detected (NotDetected); Coronavirus CoV-2 (COVID19)PCR Not Detected (NotDetected); Coronavirus HKU1 PCR Not Detected (NotDetected); Coronavirus NL63 PCR Not Detected (NotDetected); Coronavirus OC43PCR Not Detected (NotDetected); Human Metapneumovirus PCR Not Detected (NotDetected); Parainfluenza Virus 1 PCR Not Detected (NotDetected); Parainfluenza Virus 2 PCR Not Detected (NotDetected); Parainfluenza Virus 3 PCR Not Detected (NotDetected); Parainfluenza Virus 4 PCR Not Detected (NotDetected); Respiratory Syncytial VirusPCR Not Detected (NotDetected); Rhinovirus/Enterovirus PCR Not Detected (NotDetected)
--- NOTE | 2025-04-02 18:31 | CT Scan Report ---
EXAMINATION: CT of the abdomen and pelvis performed without contrast TECHNIQUE: Helical CT images from the lung bases through the symphysis pubis were obtained without contrast. Coronal and sagittal reformatted images were generated at a workstation for further assessment. Dose reduction techniques were achieved by using automatic exposure control and/or adjustment of mA and/or kV according to patient size and/or use of iterative reconstruction technique. COMPARISON: 07/12/2024 HISTORY: Abdominal pain FINDINGS: Lower chest: No consolidation. No pleural effusion or pneumothorax. Liver: No suspicious liver lesions. Nodular contour of the liver suggestive of cirrhosis. The liver is enlarged measuring 20 cm Gallbladder: Close to ectomy Spleen: Enlarged measuring 13.9 cm. Pancreas: No suspicious pancreatic lesions. The pancreatic duct is not dilated. Adrenal glands: No adrenal nodules. Kidneys: No hydronephrosis or obstructing renal stones. Bladder / Pelvic organs: Unremarkable. Bowel: No bowel obstruction. No abnormal bowel wall thickening. The appendix is unremarkable. There is fluid in the nondilated sigmoid colon and rectum Lymph nodes: No retroperitoneal, mesenteric, or pelvic lymphadenopathy. Peritoneum / Retroperitoneum: No free fluid or air within the abdomen. Vessels: No infrarenal aortic aneurysm. Bones and soft tissues: No suspicious lesion in the bones. Bilateral cephalomedullary prince with dynamic interlocking femoral neck screw fixation. IMPRESSION: Fluid within the nondilated sigmoid colon and rectum, possibly due to a diarrheal illness. Cirrhosis. Electronically signed by Gui Levy 04-02-2025 6:31 PM
--- NOTE | 2025-04-02 19:00 | Emergency Department Note ---
Impression & Plan Gastroenteritis and colitis, viral, Diarrhea, SHELL (acute kidney injury), Hypovolemia ED Provider Note NAME: RENAN VILLAGRAN AGE: 70 SEX: F : 1955 ARRIVES VIA: Walk-In INFORMANT: Patient, family ED PROVIDER(S): Lexa Russo DO CHIEF COMPLAINT: diarrhea, abdominal and chest pain HPI: This is a 70-year-old female with the PMHx of IDDM2 c/b gastroparesis, CKD and neuropathy, HTN, HLD, 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, liver cirrhosis c/b ascites and pHTN, hypothyroidism, 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, prior PE and CVA, depression and anxiety presenting to [facility] for further evaluation of ongoing illness. The patient reports that she has had ongoing chest pain leading to her presentation today. She also reports diarrhea for 2 weeks. Patient reports intermittent headaches. They deny fever but endorses chills. Patient states that she has become so weak it is difficult for her to perform ADLs as well as ambulate throughout her home. No cough or congestion. Patient does endorse intermittent chest pain. She states this is more radiation from her abdomen. She feels it is complicated due to her poor p.o. intake. She does note some anxiety regarding her condition. No shortness of breath. She continues to have generalized abdominal pain. Patient reports nausea without emesis. She reports her p.o. intake has been severely diminished. She reports ongoing urinary frequency but no dysuria. She notes significant diarrhea that is liquid multiple times a day. She denies any history of needing a paracentesis. She states that she does not feel like her abdomen is swollen. Patient denies recent changes in medications or OTC supplements. Patient offers no other complaints, today. ADDITIONAL HISTORY OBTAINED: Per HPI Chronic Medical/Social Conditions Affecting Care: Per HPI PAST MEDICAL HISTORY: See Below PAST SURGICAL HISTORY: See Below FAMILY HISTORY: See Below SOCIAL HISTORY: See Below HOME MEDICATIONS: See Below ALLERGIES: See Below VITALS: See Below PHYSICAL EXAMINATION: GENERAL: Sitting up in bed, alert, well appearing, well nourished, no distress, non-toxic EYE EXAM: normal conjunctiva. PERRL and EOM's grossly intact. OROPHARYNX: no exudate, no erythema, lips, buccal mucosa, and tongue normal and mucous membranes are Dry NECK: supple, no nuchal rigidity, no adenopathy, non-tender LUNGS: Clear to auscultation. Normal chest wall mechanics HEART: no murmurs, bradycardic rate, regular rhythm ABDOMEN: abdomen soft, generalized TTP, no masses, no rebound or guarding. BACK: Back is symmetrical on inspection and there is no deformity, no midline tenderness, no CVA tenderness. SKIN: no rashes and no bruising UPPER EXTREMITIES: upper extremities are grossly normal. LOWER EXTREMITIES: No pitting edema. NEURO EXAM: Normal sensorium, GCS 15, normal speech, no gross weakness of arms, no gross weakness of legs. MEDICAL DECISION MAKING: Differential diagnoses includes but not limited to sepsis, septic shock, hypovolemic shock, decompensated liver cirrhosis, SBP, UTI, electrolyte derangements, kidney dysfunction, gastrointestinal illness, gastroenteritis, C. difficile colitis, infectious diarrhea, ACS, dysrhythmia, cardiogenic shock In summary, this is a 70 year old female who presented with abnormal vital signs along with chest pain and diarrhea. Differential as above. Nursing notes and pertinent past medical records reviewed. Vital signs reviewed and the patient is bradycardic and hypotensive. She is otherwise afebrile and hemodynamically stable. Patient's vital signs were unstable in triage and she was brought directly back to an emergency medicine room. Patient likely was having a vagal episode in the setting of her profuse diarrhea. Her heart rate and blood pressure immediately improved. I would also not be surprised that the patient is hypotensive at baseline given her history of liver cirrhosis. She does have a history of minimal portal hypertension and ascites. On physical examination, the patient overall appears well but she has generalized abdominal tenderness to palpation. There is no evidence of peritonitis. I doubt SBP at this time. She could have decompensated liver cirrhosis. This could just be all from hypovolemia in the setting of her significant GI losses. Would also consider infectious pathology. Plan for workup with labs as well as imaging. Will include a CT abdomen/pelvis given significant abdominal tenderness and ongoing diarrheal illness. Will provide IV fluid resuscitation in the emergency department. Diagnostics interpreted by me include EKG and cardiac monitoring as listed below: -Cardiac Monitoring: An order was placed for continuous cardiac monitoring. The monitor shows a rate of 40-80s with regular rhythm. -ECG: EKG independently interpreted by me reveals normal sinus rhythm at a ventricular rate of [address] segment changes to suggest STEMI. Intervals are within normal limits otherwise. Patient completed laboratory studies and imaging. CXR independently interpreted by me reveals no evidence of focal consolidation to suggest pna. No large pneumothorax or pleural effusion. Results independently interpreted by me are No significant anemia or leukocytosis. Platelets have actually improved. No elevation in LFTs. Electrolytes are normal. Urinalysis is pending. Kidney function shows an SHELL. The patient was managed with 1500 mL in the setting of crystalloid with Plasma-Lyte. I also provided pain control with IV Tylenol and fentanyl. She did have improvement on reevaluation. Given her ongoing symptoms, CT abdomen/pelvis was ordered that showed evidence of colitis. Likely from gastroenteritis. Could be infectious diarrhea. C. difficile testing is pending. Patient struggling at home. She is unsafe to be discharged at this time. Patient will need further evaluation of her SHELL with hopeful renal recovery. Will need to continue IV fluid resuscitation as well as antiemetics and pain control. Ultimately, the decision was made to admit the patient for Likely viral gastroenteritis leading to significant gastrointestinal losses and subsequent hypovolemia and SHELL. I discussed the case with the hospitalist service via telephone/TigerText and they are agreeable to admit the patient to their services. Based on the above, including the patient's age, coexisting illnesses, labs, imaging, and exam findings the decision to treat as an inpatient. I discussed the patient with the hospitalist team who recommended admission to their services. They received the medications, treatments, interventions indicated above and their condition remain guarded. I discussed my findings with the patient and their family and they understand and agree with the treatment plan. All patient / family questions were answered to their satisfaction. Consults/Care Managements Discussions: Per [facility] ER treatment provided: See above Procedures: None Critical Care: None The chart was completed utilizing Mimvi Speech voice recognition software. Grammatical errors, random word insertions, pronoun errors, and incomplete sentences are an occasional consequence of this system due to software limitations, ambient noise, and hardware issues. Any formal questions or concerns about the content, text, or information contained within the body of this dictation should be directly addressed to the physician for clarification. Past Med/Surg History Problem List (Updated 04/03/25 @ 21:05 by Lexa Russo DO) Hypovolemia (Acute) SHELL (acute kidney injury) (Acute) Diarrhea (Acute) Gastroenteritis and colitis, viral (Acute) Acute kidney injury superimposed on CKD Gastroenteritis Chronic idiopathic thrombocytopenia Diabetic gastroparesis Nausea & vomiting (Acute) Ambulatory dysfunction (Acute) Hypothyroidism History of CVA (cerebrovascular accident) x2 1990s History of pulmonary embolism Osteoporosis (Chronic) 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 (Chronic) Anxiety (Chronic) Depression (Chronic) Dyslipidemia (Chronic) DM type 2 (diabetes mellitus, type 2) (Chronic) insulin dependent Hypertension (Chronic) Medical History Thoracic compression fracture Multiple rib fractures Lumbar transverse process fracture DVT (deep venous thrombosis) Hypothyroidism Neuropathy Closed fracture of radial styloid Distal radius fracture, left Fibula fracture Cellulitis of leg, right Fracture of toe of right foot Multiple fractures of ribs of right side Fall Ambulatory dysfunction Status post fall Inability to ambulate due to hip Contusion of rib on left side Acute pain of left hip Closed left humeral fracture Intertrochanteric fracture of left femur Contusion of bone Hemarthrosis involving knee joint Hyperglycemia Accidental medication overdose Headache Vomiting Precordial chest pain Chest pain Degenerative disc disease, lumbar Lumbar radiculopathy SBO (small bowel obstruction) Vomiting Abdominal pain Hernia, umbilical Acute UTI Constipation Asymptomatic hypertensive urgency Suspected UTI Chronic generalized abdominal pain Irritable bowel syndrome with constipation Degenerative arthritis of lumbar spine Neck pain Other cervical disc degeneration, mid-cervical region, unspecified level Low back pain Hyperglycemia Hyperglycemia due to type 2 diabetes mellitus Dehydration Dizziness Headache Nausea Displaced intertrochanteric fracture of right femur, initial encounter for closed fracture Contusion of right chest wall Abrasion, right knee, initial encounter Closed fracture of right hip Acute hyperglycemia Ground-level fall Acute blood loss anemia Cellulitis of great toe of right foot Cellulitis of foot, right Surgical History History of oophorectomy S/P left knee arthroscopy H/O dilation and curettage H/O abdominal surgery small bowel repair lysis of adhesions History of hysterectomy History of cholecystectomy History of tubal ligation Family History Father Lung cancer Diabetes Sister Stomach cancer Social History Smoking Status: Never smoker Tobacco Type: Cigarettes Second Hand Exposure: No; Do You Dip or Chew Tobacco: No; Hx Alcohol Use: No Hx Substance Use: No Preferred Language: Malawian Communication Ability: Effective Visual Impairment: No Limitations Hearing Ability: Normal Leak Detector Required: No Beliefs That Will Affect Care: None marital status: Current Living Situation: Spouse Current Living Situation Comment: with How many Children do You have: 0 Other Information That Helps Us Care for You: No Feels Safe at Home: Yes Safety Concerns: Feels Safe At This Time Assistive Devices: Cane, Walker and Other Allergies Allergies Allergy/AdvReac Type Severity Reaction Status Date / Time adhesive Allergy Intermediate RASH Verified 04/02/25 20:47 Iodinated Contrast Media Allergy Intermediate burning Verified 04/02/25 20:47 and aching in veins latex Allergy Intermediate RASH Verified 04/02/25 20:47 Penicillins Allergy Intermediate n/v, rash Verified 04/02/25 20:47 Anesthetics - Amide Type - AdvReac Intermediate Vomiting Verified 04/02/25 20:47 Select A [Anesthetics - Amide Type] Anesthetics - Juju Type- AdvReac Intermediate Vomiting Verified 04/02/25 20:47 Parabens hepatitis B virus vaccine AdvReac Intermediate CHEST Verified 04/02/25 20:47 TIGHTNESS WITH 2ND DOSE. ketorolac AdvReac Intermediate ITCHING. Verified 04/02/25 20:47 tromethamine AdvReac Intermediate ITCHING. Verified 04/02/25 20:47 aspirin AdvReac Unknown CONTRAINDICATED---currently Verified 04/02/25 20:47 with gastric ulcer, per pt Home Meds Home Medications Medication Instructions Recorded Confirmed bupropion HCl 100 mg tablet 150 mg PO QAM 05/03/24 04/02/25 carvedilol 3.125 mg tablet 3.125 mg PO BID 05/03/24 04/03/25 clopidogrel 75 mg tablet 75 mg PO QAM 05/03/24 04/02/25 gabapentin 300 mg capsule 300 mg PO TID 05/03/24 04/02/25 insulin glargine 100 unit/mL (3 24 unit subcut QA 05/03/24 04/02/25 mL) subcutaneous pen (Lantus Solostar U-100 Insulin) lisinopril 40 mg tablet 40 mg PO QAM 05/03/24 04/02/25 metoclopramide HCl 5 mg tablet 5 mg PO QID PRN Nausea And Vomiting 05/03/24 04/02/25 nifedipine 30 mg tablet,extended 30 mg PO QAM 05/03/24 04/02/25 release omeprazole 20 mg capsule,delayed 20 mg PO DAILYBB 05/03/24 04/02/25 release sennosides 8.6 mg-docusate sodium 1 tab PO DAILY PRN Constipation 05/03/24 04/02/25 50 mg tablet (Senexon-S) spironolactone 25 mg tablet 25 mg PO QAM 05/03/24 04/02/25 cholecalciferol (vitamin D3) 25 25 mcg PO QAM 07/12/24 04/02/25 mcg (1,000 unit) chewable tablet (Vitamin D3) gabapentin 100 mg capsule 100 mg PO HS 07/12/24 04/02/25 insulin aspart U-100 100 unit/mL 6 unit subcut AC 07/12/24 04/02/25 (3 mL) subcutaneous pen (Novolog FlexPen U-100 Insulin aspart) levothyroxine 137 mcg tablet 137 mcg PO DAILYBB 07/12/24 04/02/25 rosuvastatin 20 mg tablet 20 mg PO QAM 07/12/24 04/02/25 sertraline 100 mg tablet 200 mg PO QAM 07/12/24 04/02/25 Results & Data (ED) Vital Signs Vital Signs - 24 hr 04/02/25 16:16 04/02/25 16:23 04/02/25 16:23 Temperature 35.4 C L Temperature Source Temporal Artery Scan Pulse Rate 41 L Pulse Rate [Right Brachial] 70 Pulse Rate from SpO2 Sensor Pulse Rhythm [Right Brachial] Regular Pulse Strength [Right Brachial] Normal Respiratory Rate 16 16 Respiratory Effort / Characteristics Non-Labored Non-Labored Non-Labored Respiratory Depth Normal Normal Normal Respiratory Pattern Regular Regular Blood Pressure 75/49 L Blood Pressure [Right Arm] 99/47 L Blood Pressure Mean 57 Blood Pressure Mean [Right Arm] 64 Blood Pressure Position Sitting Blood Pressure Position [Right Arm] Lying Pulse Oximetry 98 90 Oxygen Delivery Method Room Air Room Air Room Air Sepsis Recent Fever Within 48 Hours No Sepsis New/Unexplained Change in Mental Status No Sepsis Action Taken by Nursing No Action Required 04/02/25 16:39 04/02/25 16:48 04/02/25 17:00 Temperature Temperature Source Pulse Rate 65 69 Pulse Rate [Right Brachial] Pulse Rate from SpO2 Sensor 65 71 Pulse Rhythm [Right Brachial] Pulse Strength [Right Brachial] Respiratory Rate 14 16 Respiratory Effort / Characteristics Respiratory Depth Respiratory Pattern Blood Pressure Blood Pressure [Right Arm] Blood Pressure Mean Blood Pressure Mean [Right Arm] Blood Pressure Position Blood Pressure Position [Right Arm] Pulse Oximetry 98 96 94 Oxygen Delivery Method Room Air Sepsis Recent Fever Within 48 Hours Sepsis New/Unexplained Change in Mental Status Sepsis Action Taken by Nursing 04/02/25 17:30 04/02/25 17:30 04/02/25 18:01 Temperature Temperature Source Pulse Rate 70 66 67 Pulse Rate [Right Brachial] Pulse Rate from SpO2 Sensor 66 68 Pulse Rhythm [Right Brachial] Pulse Strength [Right Brachial] Respiratory Rate 20 12 Respiratory Effort / Characteristics Respiratory Depth Respiratory Pattern Blood Pressure 111/57 L 127/65 Blood Pressure [Right Arm] Blood Pressure Mean 73 88 Blood Pressure Mean [Right Arm] Blood Pressure Position Blood Pressure Position [Right Arm] Pulse Oximetry 98 93 Oxygen Delivery Method Sepsis Recent Fever Within 48 Hours Sepsis New/Unexplained Change in Mental Status Sepsis Action Taken by Nursing 04/02/25 18:16 04/02/25 18:30 04/02/25 19:00 Temperature Temperature Source Pulse Rate 67 70 Pulse Rate [Right Brachial] 68 Pulse Rate from SpO2 Sensor 67 69 Pulse Rhythm [Right Brachial] Regular Pulse Strength [Right Brachial] Normal Respiratory Rate 18 13 17 Respiratory Effort / Characteristics Non-Labored Respiratory Depth Normal Respiratory Pattern Regular Blood Pressure 131/66 144/74 H Blood Pressure [Right Arm] 131/66 Blood Pressure Mean 78 85 Blood Pressure Mean [Right Arm] 87 Blood Pressure Position Blood Pressure Position [Right Arm] Lying Pulse Oximetry 93 Oxygen Delivery Method Room Air Sepsis Recent Fever Within 48 Hours Sepsis New/Unexplained Change in Mental Status Sepsis Action Taken by Nursing 04/02/25 20:30 04/02/25 20:33 04/02/25 20:33 Temperature Temperature Source Pulse Rate 65 Pulse Rate [Right Brachial] Pulse Rate from SpO2 Sensor 65 Pulse Rhythm [Right Brachial] Pulse Strength [Right Brachial] Respiratory Rate 20 Respiratory Effort / Characteristics Respiratory Depth Respiratory Pattern Blood Pressure 141/74 H 141/74 H Blood Pressure [Right Arm] Blood Pressure Mean 103 103 Blood Pressure Mean [Right Arm] Blood Pressure Position Blood Pressure Position [Right Arm] Pulse Oximetry 98 Oxygen Delivery Method Sepsis Recent Fever Within 48 Hours Sepsis New/Unexplained Change in Mental Status Sepsis Action Taken by Nursing 04/02/25 20:39 Temperature Temperature Source Pulse Rate 67 Pulse Rate [Right Brachial] Pulse Rate from SpO2 Sensor 68 Pulse Rhythm [Right Brachial] Pulse Strength [Right Brachial] Respiratory Rate 14 Respiratory Effort / Characteristics Respiratory Depth Respiratory Pattern Blood Pressure Blood Pressure [Right Arm] Blood Pressure Mean Blood Pressure Mean [Right Arm] Blood Pressure Position Blood Pressure Position [Right Arm] Pulse Oximetry 94 Oxygen Delivery Method Sepsis Recent Fever Within 48 Hours Sepsis New/Unexplained Change in Mental Status Sepsis Action Taken by Nursing Laboratory Data 04/03/25 06:39 04/03/25 06:39 Lab Results 04/02/25 04/02/25 04/02/25 Range/Units 16:43 17:07 18:02 WBC 8.65 (4.8-10.8) K/ul RBC 4.12 L (4.20-5.40) M/uL Hgb 12.4 (12.0-16.0) g/dl Hct 35.8 L (37.0-47.0) % MCV 86.9 (80.0-100.0) fL MCH 30.1 (25.0-34.0) pg MCHC 34.6 (32.0-36.0) g/dL RDW Std Deviation 41.4 (36.4-46.3) fL RDW Coeff of Dia 13.2 (11.5-14.5) % Plt Count 155 (130-400) K/uL MPV 10.1 (9.4-12.4) fL Immature Gran % (Auto) 0.7 % Neut % (Auto) 67.5 % Lymph % (Auto) 21.8 % [place] % (Auto) 8.2 % Eos % (Auto) 1.2 % Baso % (Auto) 0.6 % Neut # (Auto) 5.84 (1.40-6.50) K/uL Lymph # (Auto) 1.89 (1.20-3.40) K/uL [place] # (Auto) 0.71 H (0.11-0.59) K/uL Eos # (Auto) 0.10 (0.00-0.50) K/uL Baso # (Auto) 0.05 (0.00-0.20) K/uL Immature Gran # (Auto) 0.06 (0.01-0.20) K/uL PT 11.0 (9.0-12.0) Seconds INR 1.0 (0.9-1.1) APTT 23 (21-31) Seconds PTT Ratio 0.9 Sodium 136 (136-145) mmol/L Potassium 4.5 (3.5-5.1) mmol/L Chloride 107 (98-107) mmol/L Carbon Dioxide 19 L (21-32) mmol/L Anion Gap 10 (3-11) BUN 55 H (6-23) mg/dl Creatinine 1.70 H (0.6-1.2) mg/dl Est Cr Clr Drug Dosing 28.6 ml/min eGFR 32.26 BUN/Creatinine Ratio 32.4 H (10-20) Glucose 149 H (70-99(Fasting)) mg/dl Calcium 9.4 (8.6-10.3) mg/dl Phosphorus 4.5 (2.5-4.9) mg/dl Magnesium 2.2 (1.7-2.4) mg/dl Total Bilirubin 0.6 (0.2-1.0) mg/dl AST 36 (13-39) U/L ALT 26 (7-52) U/L Alkaline Phosphatase 90 (34-104) U/L Troponin I High Sens 5.0 (0-14) pg/ml Total Protein 8.0 (6.0-8.3) gm/dl Albumin 4.2 (3.4-5.0) gm/dl Globulin 3.8 (2.5-4.0) gm/dl Albumin/Globulin Ratio 1.1 (0.9-2) Lipase 50 (11-82) U/L Procalcitonin Cancelled Urine Color Dark Yellow Urine Appearance Cloudy A (Clear) Urine pH 5.5 (4.5-7.5) Ur Specific [place] 1.021 (1.000-1.030) Urine Protein 1+ H (Negative) Urine Glucose (UA) Negative (Negative) Urine Ketones Negative (Negative) Urine Blood Trace H (Negative) Urine Nitrite Negative (Negative) Urine Bilirubin 1+ H (Negative) Urine Urobilinogen Negative (Negative) Ur Leukocyte Esterase 3+ H (Negative) Urine WBC (Auto) >50 H (0-5) /hpf Urine RBC (Auto) 6-10 H (0-2) /hpf U Hyaline Cast (Auto) >20 H (0-2) /lpf U Epithel Cells (Auto) 3-5 H (0-2) /hpf Urine Bacteria (Auto) 3+ H (None Seen) Calcium Oxalate Crystal Present A (None Prsent) Urine Comment Adenovirus (PCR) Not Detected (NotDetected) B. pertussis DNA (PCR) Not Detected (NotDetected) B.parapertussis DNA PCR Not Detected (NotDetected) C. pneumoniae DNA (PCR) Not Detected (NotDetected) Coronavirus OC43 (PCR) Not Detected (NotDetected) Coronavirus HKU1 (PCR) Not Detected (NotDetected) Coronavirus 229E (PCR) Not Detected (NotDetected) SARS-CoV-2 (PCR) Not Detected (NotDetected) Coronavirus NL63 (PCR) Not Detected (NotDetected) Human Metapneumovir PCR Not Detected (NotDetected) Influenza Type A (PCR) Not Detected (NotDetected) Influenza Type B (PCR) Not Detected (NotDetected) M. pneumoniae (PCR) Not Detected (NotDetected) Parainfluenza 1 (PCR) Not Detected (NotDetected) Parainfluenza 2 (PCR) Not Detected (NotDetected) Parainfluenza 3 (PCR) Not Detected (NotDetected) Parainfluenza 4 (PCR) Not Detected (NotDetected) RSV (PCR) Not Detected (NotDetected) Entero/Rhino (PCR) Not Detected (NotDetected) Ref Lab Test Result See Scanned Report Administered Medications Bupropion HCl (Bupropion Hcl 75 Mg Tablet) [facility] [place] Stop: 05/03/25 08:59 Last Admin: 04/03/25 07:49 Dose: 150 mg Documented By: SHAHIDA Carvedilol (Carvedilol 3.125 Mg Tab) 3.125 mg PO BID [facility] Stop: 05/03/25 06:44 Last Admin: 04/03/25 20:33 Dose: 3.125 mg Documented By: elaine Admin: 04/03/25 07:49 Dose: 3.125 mg Documented By: SHAHIDA Clopidogrel Bisulfate (Clopidogrel Bisulfate 75 Mg Tab) 75 mg PO QAM [facility] Stop: 05/03/25 08:59 Last Admin: 04/03/25 07:50 Dose: 75 mg Documented By: SHAHIDA Gabapentin (Gabapentin 100 Mg Cap) 200 mg PO TID [facility] Stop: 05/02/25 20:59 Last Admin: 04/03/25 20:34 Dose: 200 mg Documented By: elaine Admin: 04/03/25 13:25 Dose: 200 mg Documented By: Admin: 04/03/25 07:49 Dose: 200 mg Documented By: Admin: 04/02/25 21:53 Dose: 200 mg Documented By: XUAN Hydromorphone HCl (Hydromorphone Inj 0.5 Mg/0.5 Ml Syr) 0.25 mg IV Q4H PRN PRN Reason: Pain Stop: 04/17/25 00:05 Last Admin: 04/03/25 20:34 Dose: 0.25 mg Documented By: elaine Admin: 04/03/25 15:46 Dose: 0.25 mg Documented By: Admin: 04/03/25 07:42 Dose: 0.25 mg Documented By: SHAHIDA Cefepime HCl (Maxipime 2000mg) 1,000 mg in 10 mls @ 5 mls/min IV Q12H [facility] Stop: 04/13/25 08:59 Last Admin: 04/03/25 20:35 Dose: 5 mls/min Documented By: elaine Admin: 04/03/25 08:16 Dose: 5 mls/min Documented By: SHAHIDA Insulin Aspart (Insulin Aspart Per Unit Charge) 0 units SC ACHS [facility] Stop: 05/02/25 23:32 Last Admin: 04/03/25 20:34 Dose: 2 units Documented By: elaine Co-signed By: ESTEE Admin: 04/03/25 17:29 Dose: 4 units Documented By: SHAHIDA Co-signed By: STEWART Admin: 04/03/25 12:44 Dose: 5 units Documented By: SHAHIDA Co-signed By: INDIO Admin: 04/03/25 08:14 Dose: 2 units Documented By: SHAHIDA Co-signed By: ALEJANDRA Admin: 04/03/25 00:24 Dose: 2 units Documented By: AIDAN Co-signed By: LIUDMILA Insulin Glargine (Lantus Per Unit Charge) 20 units SC QAM [facility] Stop: 05/03/25 08:59 Last Admin: 04/03/25 08:13 Dose: 20 units Documented By: SHAHIDA Co-signed By: ALEJANDRA Levothyroxine Sodium (Levothyroxine Sodium 137 Mcg Tablet) [facility] Stop: 05/03/25 06:29 Last Admin: 04/03/25 07:43 Dose: 137 mcg Documented By: SHAHIDA Nifedipine (Nifedipine Extended Rel 30 Mg Tabcr) 30 mg PO [facility] Stop: 05/03/25 08:59 Last Admin: 04/03/25 07:49 Dose: 30 mg Documented By: SHAHIDA Pantoprazole Sodium (Pantoprazole 40 Mg Tab) 40 mg PO [facility] Stop: 05/03/25 08:59 Last Admin: 04/03/25 07:50 Dose: 40 mg Documented By: SHAHIDA Rosuvastatin Calcium (Rosuvastatin Calcium 20 Mg Tab) 20 mg PO [facility] Stop: 05/03/25 08:59 Last Admin: 04/03/25 07:50 Dose: 20 mg Documented By: SHAHIDA Sertraline HCl (Sertraline Hcl 100 Mg Tablet) 200 mg PO [facility] Stop: 05/03/25 08:59 Last Admin: 04/03/25 07:50 Dose: 200 mg Documented By: SHAHIDA Discontinued Medications Fentanyl Citrate (Fentanyl Citrate Pf 100 Mcg/2 Ml Vial) 50 mcg IV NOW ONE Stop: 04/02/25 19:00 Last Admin: 04/02/25 19:34 Dose: 50 mcg Documented By: CHANDLER Parenteral Electrolytes (Plasma-Lyte A Ph 7.4) 500 mls @ 999 mls/hr IV .Q31M ONE Stop: 04/02/25 17:18 Last Infusion: 04/02/25 18:58 Dose: Infused Documented By: Admin: 04/02/25 17:15 Dose: 999 mls/hr Documented By: CHANDLER Acetaminophen (Ofirmev) 1,000 mg in 100 mls @ 400 mls/hr IV NOW STA Stop: 04/02/25 19:13 Last Admin: 04/02/25 19:34 Dose: Not Given Documented By: CHANDLER Parenteral Electrolytes (Plasma-Lyte A Ph 7.4) 500 mls @ 999 mls/hr IV .Q31M ONE Stop: 04/02/25 19:29 Last Infusion: 04/02/25 20:07 Dose: Infused Documented By: Admin: 04/02/25 19:35 Dose: 999 mls/hr Documented By: CHANDLER Sodium Chloride (Nss) 1,000 mls @ 75 mls/hr IV .[id number] ONE Stop: 04/03/25 09:07 Last Infusion: 04/03/25 09:56 Dose: Infused Documented By: Admin: 04/02/25 20:19 Dose: 75 mls/hr Documented By: CHANDLER Cefepime HCl (Maxipime 2000mg) 2,000 mg in 20 mls @ 5 mls/min IV NOW ONE Stop: 04/02/25 21:03 Last Admin: 04/02/25 21:53 Dose: 5 mls/min Documented By: [employer] Data Radiologist's Impression: Abdomen/Pelvis CT 04/02/25 17:18 EXAMINATION: CT of the abdomen and pelvis performed without contrast TECHNIQUE: Helical CT images from the lung bases through the symphysis pubis were obtained without contrast. Coronal and sagittal reformatted images were generated at a workstation for further assessment. Dose reduction techniques were achieved by using automatic exposure control and/or adjustment of mA and/or kV according to patient size and/or use of iterative reconstruction technique. COMPARISON: 07/12/2024 HISTORY: Abdominal pain FINDINGS: Lower chest: No consolidation. No pleural effusion or pneumothorax. Liver: No suspicious liver lesions. Nodular contour of the liver suggestive of cirrhosis. The liver is enlarged measuring 20 cm Gallbladder: Close to ectomy Spleen: Enlarged measuring 13.9 cm. Pancreas: No suspicious pancreatic lesions. The pancreatic duct is not dilated. Adrenal glands: No adrenal nodules. Kidneys: No hydronephrosis or obstructing renal stones. Bladder / Pelvic organs: Unremarkable. Bowel: No bowel obstruction. No abnormal bowel wall thickening. The appendix is unremarkable. There is fluid in the nondilated sigmoid colon and rectum Lymph nodes: No retroperitoneal, mesenteric, or pelvic lymphadenopathy. Peritoneum / Retroperitoneum: No free fluid or air within the abdomen. Vessels: No infrarenal aortic aneurysm. Bones and soft tissues: No suspicious lesion in the bones. Bilateral cephalomedullary prince with dynamic interlocking femoral neck screw fixation. IMPRESSION: Fluid within the nondilated sigmoid colon and rectum, possibly due to a diarrheal illness. Cirrhosis. Electronically signed by Gui Levy 04-02-2025 6:31 PM Discharge Plan Visit Data Chief Complaint: Cardiac Assessment Stated Complaint: ILLNESS, MINOR CHEST PAINS, DIARRHEA ED Provider: Lexa Russo Discharge Problem: Gastroenteritis and colitis, viral, Diarrhea, SHELL (acute kidney injury), Hypovolemia Patient Disposition: Admitted As Inpatient Condition: Fair Discharge Instructions Interventions: ED Discharge Assessment Last Done: 04/02/25 23:08
[2025-04-02] MEDS: ACETAMINOPHEN 1,000 MG/100 ML VIAL IV STA (19:34)
[2025-04-02 19:43] LABS: Appearance Urine Cloudy (Clear); Bacteria Urine Automated 3+ (None Seen); Cast Urine Automated >20 /lpf (0-2); Glucose Urine UA Negative (Negative); WBC Urine Automated >50 /hpf (0-5)
--- NOTE | 2025-04-02 19:43 | History & Physical Report ---
Date of Service April 02, 2025 Assessment & Plan (1) Gastroenteritis: (2) Nausea & vomiting: (3) Acute kidney injury superimposed on CKD: (4) Ambulatory dysfunction: (5) DM type 2 (diabetes mellitus, type 2): (6) Hypertension: (7) Dyslipidemia: (8) History of CVA (cerebrovascular accident): (9) Hypothyroidism: (10) Anxiety: (11) Depression: Plan 70 year old female with PMH significant for DM II with gastroparesis and nephropathy and neuropathy, dyslipidemia, hypothyroidism, 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, portal hypertension, history of stroke, hypertension, grade I diastolic dysfunction, cirrhosis of liver with ascites, thrombocytopenia, history of PE, depression and anxiety who presented to the ED on 04/02/2025 with diarrhea x 2 weeks and is admitted for gastroenteritis. Gastroenteritis Nausea and vomiting Patient presenting with 2 weeks of diarrhea, nausea with vomiting, poor PO, abdominal pain CTAP reveals fluid within nondilated sigmoid colon and rectum consistent with diarrheal illness Obtain stool studies and C diff Supportive care with fluids and clear liquid diet SHELL on CKD Creat 1.7 on admission Baseline appears to be around 1 per record review Likely secondary to dehydration d/t diarrheal illness Continue MIVF Avoid nephrotoxic agents as able Recheck BMP in am UTI Patient endorses urinary frequency UA+leuk esterase, WBC, bacteria Cefepime q8hr Follow urine culture Ambulatory dysfunction Likely secondary to dehydration d/t diarrheal illness PT/OT consults Diabetes Hold metformin BSG ACHS SSI while inpatient Hypertension Continue carvedilol and nifedipine Hold lisinopril and aldactone in setting of SHELL Hyperlipidemia Continue rosuvastatin History of CVA Continue Plavix Hypothyroidism Continue levothyroxine Depression/anxiety Continue wellbutrin and sertraline GERD Continue PPI DVT Prophylaxis: SCDs Code Status: FULL CODE - As per discussion at bedside with the patient. PCP: Adria Hilliard Disposition: admit to med surg Patient seen in collaboration with Dr Luevano. Please see addendum. I spent a total of 70 minutes coordinating, documenting and providing care for this patient excluding time spent in the performance of separately billed services or time spent by another provider/QHP. Admission and Anticipated Discharge Date Admission Date: 04/02/2025 History of Present Illness Chief Complaint: diarrhea Primary Care Provider: Adria Hilliard MD 70 year old female with PMH significant for DM II with gastroparesis and nephropathy and neuropathy, dyslipidemia, hypothyroidism, 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, portal hypertension, history of stroke, hypertension, grade I diastolic dysfunction, cirrhosis of liver with ascites, thrombocytopenia, history of PE, depression and anxiety who presented to the ED on 04/02/2025 with diarrhea x2 weeks. Patient reports that she has been having diarrhea with associated poor PO, nausea with intermittent vomiting, and aching lower and epigastric abdominal pain for two weeks. She reports some days she only has one bout of diarrhea and other days it is up to 5 times a day. She reports chills for one day but did not take her temperature to know if it was a fever. She is scared to eat because she feels like everything goes right through her. She feels very weak and wiped out and feels as though she can hardly walk because she has no strength left. Denies any falls. Denies sick contacts. Denies recent antibiotics. Denies cough, cold symptoms, chest pain, SOB, dysuria. Allergies Allergy/AdvReac Type Severity Reaction Status Date / Time adhesive Allergy Intermediate RASH Verified 04/02/25 20:47 Iodinated Contrast Media Allergy Intermediate burning Verified 04/02/25 20:47 and aching in veins latex Allergy Intermediate RASH Verified 04/02/25 20:47 Penicillins Allergy Intermediate n/v, rash Verified 04/02/25 20:47 Anesthetics - Amide Type - AdvReac Intermediate Vomiting Verified 04/02/25 20:47 Select A [Anesthetics - Amide Type] Anesthetics - Juju Type- AdvReac Intermediate Vomiting Verified 04/02/25 20:47 Parabens hepatitis B virus vaccine AdvReac Intermediate CHEST Verified 04/02/25 20:47 TIGHTNESS WITH 2ND DOSE. ketorolac AdvReac Intermediate ITCHING. Verified 04/02/25 20:47 tromethamine AdvReac Intermediate ITCHING. Verified 04/02/25 20:47 aspirin AdvReac Unknown CONTRAINDICATED---currently Verified 04/02/25 20:47 with gastric ulcer, per pt Home Medications Medication Instructions Recorded Confirmed Type bupropion HCl 100 mg tablet 150 mg PO QAM 05/03/24 04/02/25 History carvedilol 3.125 mg tablet 3.125 mg PO BID 05/03/24 04/03/25 History clopidogrel 75 mg tablet 75 mg PO QAM 05/03/24 04/02/25 History gabapentin 300 mg capsule 300 mg PO TID 05/03/24 04/02/25 History insulin glargine 100 unit/mL (3 24 unit subcut QAM 05/03/24 04/02/25 History mL) subcutaneous pen (Lantus Solostar U-100 Insulin) lisinopril 40 mg tablet 40 mg PO QAM 05/03/24 04/02/25 History metoclopramide HCl 5 mg tablet 5 mg PO QID PRN Nausea And Vomiting 05/03/24 04/02/25 History nifedipine 30 mg tablet,extended 30 mg PO QAM 05/03/24 04/02/25 History release omeprazole 20 mg capsule,delayed 20 mg PO DAILYBB 05/03/24 04/02/25 History release sennosides 8.6 mg-docusate sodium 1 tab PO DAILY PRN Constipation 05/03/24 04/02/25 History 50 mg tablet (Senexon-S) spironolactone 25 mg tablet 25 mg PO QAM 05/03/24 04/02/25 History cholecalciferol (vitamin D3) 25 25 mcg PO QAM 07/12/24 04/02/25 History mcg (1,000 unit) chewable tablet (Vitamin D3) gabapentin 100 mg capsule 100 mg PO HS 07/12/24 04/02/25 History insulin aspart U-100 100 unit/mL 6 unit subcut AC 07/12/24 04/02/25 History (3 mL) subcutaneous pen (Novolog FlexPen U-100 Insulin aspart) levothyroxine 137 mcg tablet 137 mcg PO DAILYBB 07/12/24 04/02/25 History rosuvastatin 20 mg tablet 20 mg PO QAM 07/12/24 04/02/25 History sertraline 100 mg tablet 200 mg PO QAM 07/12/24 04/02/25 History Past Med/Surg History Problem List (Updated 04/03/25 @ 00:05 by Background Ken) Acute kidney injury superimposed on CKD Gastroenteritis Chronic idiopathic thrombocytopenia Diabetic gastroparesis Nausea & vomiting (Acute) Ambulatory dysfunction (Acute) Hypothyroidism History of CVA (cerebrovascular accident) x2 History of pulmonary embolism Osteoporosis (Chronic) 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 (Chronic) Anxiety (Chronic) Depression (Chronic) Dyslipidemia (Chronic) DM type 2 (diabetes mellitus, type 2) (Chronic) insulin dependent Hypertension (Chronic) Medical History (Updated 04/03/25 @ 00:05 by Zaynab Rogers) Thoracic compression fracture Multiple rib fractures Lumbar transverse process fracture DVT (deep venous thrombosis) Hypothyroidism Neuropathy Closed fracture of radial styloid Distal radius fracture, left Fibula fracture Cellulitis of leg, right Fracture of toe of right foot Multiple fractures of ribs of right side Fall Ambulatory dysfunction Status post fall Inability to ambulate due to hip Contusion of rib on left side Acute pain of left hip Closed left humeral fracture Intertrochanteric fracture of left femur Contusion of bone Hemarthrosis involving knee joint Hyperglycemia Accidental medication overdose Headache Vomiting Precordial chest pain Chest pain Degenerative disc disease, lumbar Lumbar radiculopathy SBO (small bowel obstruction) Vomiting Abdominal pain Hernia, umbilical Acute UTI Constipation Asymptomatic hypertensive urgency Suspected UTI Chronic generalized abdominal pain Irritable bowel syndrome with constipation Degenerative arthritis of lumbar spine Neck pain Other cervical disc degeneration, mid-cervical region, unspecified level Low back pain Hyperglycemia Hyperglycemia due to type 2 diabetes mellitus Dehydration Dizziness Headache Nausea Displaced intertrochanteric fracture of right femur, initial encounter for closed fracture Contusion of right chest wall Abrasion, right knee, initial encounter Closed fracture of right hip Acute hyperglycemia Ground-level fall Acute blood loss anemia Cellulitis of great toe of right foot Cellulitis of foot, right Surgical History History of oophorectomy S/P left knee arthroscopy H/O dilation and curettage H/O abdominal surgery small bowel repair lysis of adhesions History of hysterectomy History of cholecystectomy History of tubal ligation Family History Father Lung cancer Diabetes Sister Stomach cancer Social History (Updated 04/02/25 @ 20:25 by DALI Zambrano) Smoking Status: Never smoker Tobacco Type: Cigarettes Second Hand Exposure: No; Do You Dip or Chew Tobacco: No; Hx Alcohol Use: No Hx Substance Use: No Preferred Language: Faroese Communication Ability: Effective Visual Impairment: No Limitations Hearing Ability: Normal Trap Puller Required: No Beliefs That Will Affect Care: None marital status: Current Living Situation: Spouse Current Living Situation Comment: with How many Children do You have: 0 Other Information That Helps Us Care for You: No Feels Safe at Home: Yes Safety Concerns: Feels Safe At This Time Assistive Devices: Glasses Review of Systems Review of Systems: All systems reviewed & are unremarkable except as noted in HPI & below Physical Exam Physical Exam: General/Psych: ill appearing, sitting up in bed, NAD, conversing easily Head: normocephalic, atraumatic Eyes: normal inspection, PERRL, conjunctivae pink ENT: external ear and nose normal, oropharynx normal Neck: normal visual inspection, trachea midline Respiratory: normal respiratory effort, lungs clear to auscultation, no wheeze/rales/rhonchi, no accessory muscle use Cardiovascular: regular rate and rhythm, no murmur/rub/gallop, no JVD Extremities: no cyanosis or clubbing, normal peripheral pulses, no BLE edema Abdomen/GI: normal bowel sounds, soft, rounded, tender on palpation LUQ Neurologic/MSK: A+Ox3, motor strength 5/5, moves all extremities Skin: no rashes, normal color, warm and dry Results & Data Results & Data Vital Signs (Past 12 Hours) Vital Signs Temp Pulse Pulse Resp BP BP Pulse Ox 04/02/25 18:16 68 18 131/66 93 04/02/25 17:30 70 04/02/25 16:48 96 04/02/25 16:23 35.4 C L 41 L 16 75/49 L 90 04/02/25 16:23 04/02/25 16:16 70 16 99/47 L 98 O2 Del Method 04/02/25 18:16 Room Air 04/02/25 17:30 04/02/25 16:48 Room Air 04/02/25 16:23 Room Air 04/02/25 16:23 Room Air 04/02/25 16:16 Room Air Laboratory Results Short CBC 04/02/25 Range/Units 16:43 WBC 8.65 (4.8-10.8) K/ul Hgb 12.4 (12.0-16.0) g/dl Hct 35.8 L (37.0-47.0) % Plt Count 155 (130-400) K/uL BMP 04/02/25 16:43 Sodium 136 Potassium 4.5 Chloride 107 Carbon Dioxide 19 L BUN 55 H Creatinine 1.70 H Glucose 149 H Calcium 9.4 Liver Function 04/02/25 Range/Units 16:43 Total Bilirubin 0.6 (0.2-1.0) mg/dl AST 36 (13-39) U/L ALT 26 (7-52) U/L Alkaline Phosphatase 90 (34-104) U/L Albumin 4.2 (3.4-5.0) gm/dl Urine 04/02/25 Range/Units 18:02 Urine Color Dark Yellow Urine Appearance Cloudy A (Clear) Urine pH 5.5 (4.5-7.5) Ur Specific [place] 1.021 (1.000-1.030) Urine Protein 1+ H (Negative) Urine Glucose (UA) Negative (Negative) I have independently reviewed and interpreted patient's admitting labs including CBC, CMP, PTT, PT/INR, mag and troponin. Diagnostic Findings Chest X-Ray 04/02/25 16:48 Clinical History: Chest pain Technique: A frontal view of the chest was obtained Comparison is made to the prior examination dated 07/12/2024 Findings: There are no confluent pulmonary infiltrates. The heart size is within normal limits. No pleural effusion or pneumothorax is seen. There is no definite pulmonary nodule. No fracture is noted. No foreign body is seen Impression: No active disease Electronically signed by Jax Bravo 04-02-2025 5:36 PM Abdomen/Pelvis CT 04/02/25 17:18 EXAMINATION: CT of the abdomen and pelvis performed without contrast TECHNIQUE: Helical CT images from the lung bases through the symphysis pubis were obtained without contrast. Coronal and sagittal reformatted images were generated at a workstation for further assessment. Dose reduction techniques were achieved by using automatic exposure control and/or adjustment of mA and/or kV according to patient size and/or use of iterative reconstruction technique. COMPARISON: 07/12/2024 HISTORY: Abdominal pain FINDINGS: Lower chest: No consolidation. No pleural effusion or pneumothorax. Liver: No suspicious liver lesions. Nodular contour of the liver suggestive of cirrhosis. The liver is enlarged measuring 20 cm Gallbladder: Close to ectomy Spleen: Enlarged measuring 13.9 cm. Pancreas: No suspicious pancreatic lesions. The pancreatic duct is not dilated. Adrenal glands: No adrenal nodules. Kidneys: No hydronephrosis or obstructing renal stones. Bladder / Pelvic organs: Unremarkable. Bowel: No bowel obstruction. No abnormal bowel wall thickening. The appendix is unremarkable. There is fluid in the nondilated sigmoid colon and rectum Lymph nodes: No retroperitoneal, mesenteric, or pelvic lymphadenopathy. Peritoneum / Retroperitoneum: No free fluid or air within the abdomen. Vessels: No infrarenal aortic aneurysm. Bones and soft tissues: No suspicious lesion in the bones. Bilateral cephalomedullary prince with dynamic interlocking femoral neck screw fixation. IMPRESSION: Fluid within the nondilated sigmoid colon and rectum, possibly due to a diarrheal illness. Cirrhosis. Electronically signed by Cam Coopernichole 04-02-2025 6:31 PM ECG Additional Comments: I have independently reviewed and interpreted patient's admitting EKG which revealed: NSR at a rate of 67 bpm Code Status & VTE Plan Code Status Full Code Supervising Physician Co-Signing Physician Notes IM ATTENDING : Patient seen and examined. History obtained from patient and records. Concur with salient points upon review of preceding documentation by DALI Lacey. In addition, patient complaining of increased urinary frequency symptoms. I take responsibility for plan of care below. FINAL ASSESSMENT AND PLAN as follows : Complicated UTI, no sepsis for now Diarrheal illness rule out infectious causes ARF secondary to illness hyperlipidemia on statin Rx hx PE not on anticoagulation secondary to recurrent falls 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 NAFLD cirrhosis, no overt decompensation hx gastroparesis DM 2 insulin requiring, suboptimal control as of recent of 9.9 last February 2025 hypothyroidism, TSH elevated at 5.4 from last month. dementia as per records, patient mentating well Chronic thrombocytopenia likely secondary to liver disease Admit to medical unit Urine CS, cefepime Stool CS, stool C. difficile Monitor creatinine response to IVF, hold lisinopril until creatinine back to baseline Basal bolus insulin adjusted for decreased renal function, ISS BG goal 1 10-1 40, carb count coverage Update TSH DVT prophylaxis. SCDs Re: Thrombocytopenia Full code Patient requests for to be given updates regarding care. Mr. Dayne Fine, contact #[phone]. I spent a total of 30 minutes coordinating, documenting, and providing care for this patientexcludingtime spent by another provider/QHP. Text document was generated using [employer] voice recognition software. It may contain grammatical or spelling errors. Kindly contact undersigned for clarification of any documentation item in question. (5) DM type 2 (diabetes mellitus, type 2) Diabetes mellitus complication status: without complication Diabetes mellitus half-way insulin use: with half-way use Qualified Code(s): E11.9 - Type 2 diabetes mellitus without complications; Z79.4 - intermediate manager (current) use of insulin
[2025-04-02] MEDS: SODIUM CHLORIDE 0.9% 1,000 ML IV ONE (20:19)
[2025-04-02] MEDS ORDERED: CEFEPIME 2000MG 2,000 MG/20 ML SYR IV SCH (21:00)
[2025-04-02 21:18] LABS: Cdiff Toxin B Gene (2yr or >) Negative Cdiff Gene (Neg)
[2025-04-02 21:52] LABS: Adenovirus F 40/41 PCR Not Detected (NotDetected); Campylobacter PCR Not Detected (NotDetected); Enteroaggregative E.coli(EAEC) Not Detected (NotDetected); Shiga-like Toxin E.coli (STEC) Not Detected (NotDetected); Vibrio species PCR Not Detected (NotDetected)
[2025-04-02] MEDS: GABAPENTIN 100 MG CAP PO SCH (21:53)
[2025-04-02] MEDS: CEFEPIME 2000MG 2,000 MG/20 ML SYR IV ONE (21:53)
[2025-04-02] MEDS ORDERED: GLUCOSE 40% GEL 15 GM TUBE PO PRN (23:33)
[2025-04-02] MEDS ORDERED: GLUCOSE 10 TAB/TUBE PO PRN (23:33)
[2025-04-02] MEDS ORDERED: DEXTROSE 50% 50 ML SYRINGE IV PRN (23:33)
[2025-04-02] MEDS ORDERED: CARBOHYDRATES FOR HYPOGLYCEMIA PO PRN (23:33)
[2025-04-02] MEDS ORDERED: GLUCAGON FOR INJ 1 MG VIAL SQ PRN (23:33)
[2025-04-02] MEDS ORDERED: ACETAMINOPHEN 500 MG TAB PO PRN (23:56)
[2025-04-03] MEDS: INSULIN ASPART PER UNIT CHARGE SC SCH (00:24)
[2025-04-03 07:13] LABS: Hematocrit (blood only) 33.2 % (37.0-47.0); Hemoglobin 11.2 g/dl (12.0-16.0); Immature Granulocytes # (auto) 0.01 K/uL (0.01-0.20); Immature Granulocytes % (auto) 0.2 %; Mean Corpuscular Hemoglobin 29.4 pg (25.0-34.0); Mean Corpuscular Volume 87.1 fL (80.0-100.0); Platelet Count 89 K/uL (130-400); RDW Standard Deviation 41.6 fL (36.4-46.3); Red Blood Count 3.81 M/uL (4.20-5.40); White Blood Count 5.21 K/ul (4.8-10.8)
[2025-04-03 07:38] LABS: Anion Gap 3.0 (3-11); Blood Urea Nitrogen 41.0 mg/dl (6-23); Calcium 9.2 mg/dl (8.6-10.3); Carbon Dioxide 26.0 mmol/L (21-32); Chloride 109.0 mmol/L (98-107); Creatinine Clr Calc Pharmacy 46.0 ml/min; Glucose 99.0 mg/dl (70-99(Fasting)); Potassium 4.8 mmol/L (3.5-5.1); Sodium 138.0 mmol/L (136-145)
[2025-04-03] MEDS: HYDROmorphone INJ 0.5 MG/0.5 ML SYR IV PRN (07:42)
[2025-04-03] MEDS: LEVOTHYROXINE SODIUM 137 MCG TABLET PO SCH (07:43)
[2025-04-03] MEDS: NIFEdipine EXTENDED REL 30 MG TABCR PO SCH (07:49)
[2025-04-03] MEDS: CLOPIDOGREL BISULFATE 75 MG TAB PO SCH (07:50)
[2025-04-03] MEDS: SERTRALINE HCL 100 MG TABLET PO SCH (07:50)
[2025-04-03] MEDS: ROSUVASTATIN CALCIUM 20 MG TAB PO SCH (07:50)
[2025-04-03 07:52] LABS: Thyroid Stimulating Hormone 1.899 uIu/ml (0.300-4.500)
[2025-04-03] MEDS: LANTUS PER UNIT CHARGE SC SCH (08:13)
[2025-04-03] MEDS: CEFEPIME 1000MG 1,000 MG/10 ML SYR IV SCH (08:16)
--- NOTE | 2025-04-03 12:23 | Hospitalist Progress Note ---
Date of Service April 03, 2025 Assessment & Plan (1) Gastroenteritis: (2) Nausea & vomiting: (3) Acute kidney injury superimposed on CKD: (4) Ambulatory dysfunction: (5) DM type 2 (diabetes mellitus, type 2): (6) Hypertension: (7) Dyslipidemia: (8) History of CVA (cerebrovascular accident): (9) Hypothyroidism: (10) Anxiety: (11) Depression: Plan 70 year old female with PMH significant for DM II with gastroparesis and nephropathy and neuropathy, dyslipidemia, hypothyroidism, 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, portal hypertension, history of stroke, hypertension, grade I diastolic dysfunction, cirrhosis of liver with ascites, thrombocytopenia, history of PE, depression and anxiety who presented to the ED on 04/02/2025 with diarrhea x 2 weeks and is admitted for gastroenteritis. Suspected viral gastroenteritis DD: Irritable bowel disease Nausea, vomiting, ongoing nonbloody diarrhea associated with abdominal pain H/O gastroparesis --CT ABD:Fluid within the nondilated sigmoid colon and rectum, possibly due to a diarrheal illness. Cirrhosis. -- Stool for C. difficile, stool PCR negative Received IV fluids Advance diet as tolerated Patient states that she was informed to get colonoscopy every year but was unsure about the reason Consulted gastroenterology for further recommendations SHELL on CKD II Cr 1.7>>1.1 Lisinopril, Aldactone on hold Avoid nephrotoxic agents as able Monitor renal function Received IV fluids UTI Patient endorses urinary frequency UA+leuk esterase, WBC, bacteria Urine culture pending Continue empiric IV Cefepime Ambulatory dysfunction Likely secondary to dehydration d/t diarrheal illness PT/OT consults DM II Hold metformin BSG ACHS SSI while inpatient Hypertension Continue carvedilol and nifedipine Resume lisinopril as able Monitor blood pressure Hyperlipidemia Continue rosuvastatin History of CVA Continue Plavix, statin Hypothyroidism Continue levothyroxine Depression/anxiety Continue wellbutrin and sertraline GERD Continue PPI Cirrhosis Chronic thrombocytopenia Resume Aldactone as able DVT Px: SCDs for now Code Status: FULL CODE Admission and Anticipated Discharge Date Admission Date: April 02, 2025 Subjective Patient is seen and examined at bedside Reports nausea, ongoing diarrhea, generalized abdominal pain Also reports having generalized weakness and intermittent headache Denies any chest pain, dyspnea No other complaints Review of Systems Review of Systems: All systems reviewed & are unremarkable except as noted in Subjective Physical Exam Physical Exam: Physical Exam: Vitals signs as noted above General Appearance:Overweight, no apparent distress Head: normocephalic, Atraumatic Eyes: normal inspection, EOMI Neck: supple, Trachea midline Respiratory/Chest: Normal breath sounds, CTA, No accessory muscle use Cardiovascular: S1, S2, + faint murmur Abdomen/GI:Soft, generalized tender, protuberant, Bowel sounds present Extremities/Musculoskeletal:normal inspection, no edema Neurologic/Psych:AAOX3, grossly no focal neurological deficits Skin: normal color, warm Results & Data Results & Data Vital Signs (Past 12 Hours) Vital Signs Temp Pulse Resp BP Pulse Ox O2 Del Method 04/03/25 07:21 36.4 C L 69 16 153/66 H 96 Room Air Laboratory Results Short CBC 04/02/25 04/03/25 Range/Units 16:43 06:39 WBC 8.65 5.21 (4.8-10.8) K/ul Hgb 12.4 11.2 L (12.0-16.0) g/dl Hct 35.8 L 33.2 L (37.0-47.0) % Plt Count 155 89 L (130-400) K/uL BMP 04/02/25 04/03/25 16:43 06:39 Sodium 136 138 Potassium 4.5 4.8 Chloride 107 109 H Carbon Dioxide 19 L 26 BUN 55 H 41 H Creatinine 1.70 H 1.12 D Glucose 149 H 99 Calcium 9.4 9.2 Liver Function 04/02/25 Range/Units 16:43 Total Bilirubin 0.6 (0.2-1.0) mg/dl AST 36 (13-39) U/L ALT 26 (7-52) U/L Alkaline Phosphatase 90 (34-104) U/L Albumin 4.2 (3.4-5.0) gm/dl Urine 04/02/25 Range/Units 18:02 Urine Color Dark Yellow Urine Appearance Cloudy A (Clear) Urine pH 5.5 (4.5-7.5) Ur Specific [place] 1.021 (1.000-1.030) Urine Protein 1+ H (Negative) Urine Glucose (UA) Negative (Negative) (5) DM type 2 (diabetes mellitus, type 2) Diabetes mellitus complication status: without complication Diabetes mellitus penitentiary insulin use: with long line teamster use Qualified Code(s): E11.9 - Type 2 diabetes mellitus without complications; Z79.4 - alf (current) use of insulin
--- NOTE | 2025-04-03 13:19 | Gastrointestinal Consultation ---
Date of Consultation April 03, 2025 Assessment & Plan (1) Nausea vomiting and diarrhea: Patient with acute diarrhea that does seem infectious in nature. She has had recent colonoscopy with [facility] which per her reports was without significant findings. -Continue with supportive management with IV hydration, antiemetics, liquid diet as tolerated, consider Cholestyramine as well. -Will discuss further with attending fuel cell designer for any further planning at this time. Supervising Physician Co-Signing Physician Notes Diarrheal illness x 2 weeks. Some abdominal cramping. On further review she has had abdominal pain dating back before this may be years with alternating constipation and diarrhea she believes her last colonoscopy at [facility] may have been 2 years ago. I do not see this report of can be obtained. CT is suggestive of diarrheal illness. No wall thickening. Cirrhotic though this is known. Patient had a previous cholecystectomy hysterectomy she has mesh. Stool studies did not show infection. Consider postcholecystectomy diarrhea. Differential would include collagenous or microscopic colitis, diabetic diarrhea, missed infectious etiology diarrheal illness. Should check serum cortisol levels. Trial of cholestyramine. If persistent symptoms could consider endoscopic evaluation on Sunday with biopsies for microscopic collagenous colitis History of Present Illness Reason for Consultation: Abdominal pain and diarrhea Attending Physician: Sanchez Garcia MD History of Present Illness Patient is a 70 yo female with 2 weeks of diarrhea and abdominal pain. Patient notes that 2 weeks ago she developed abdominal pain in the LLQ and 2-5 episodes of loose stools with urgency daily. She denies medication changes. She notes that she thought it was related to [employer] food. She notes that she has a history of chronic constipation and typically takes Senna. She has a history of liver cirrhosis for which she sees a manager of financial reporting at [facility]. She denies rectal bleeding. She notes some nausea and vomiting but this has subsided. She has had recent colonoscopy eval that was unremarkable per her reports. She is having an EGD this year for variceal surveillance but she notes she keeps up with these regularly. She had a CT scan here that suggests a diarrheal illness: Fluid within the nondilated sigmoid colon and rectum, possibly due to a diarrheal illness. She had a normal stool PCR and C diff study. No pertinent family history. She does not have a gallbladder. K wnl. Cr bumped upon admission but now improved. Allergies Allergy/AdvReac Type Severity Reaction Status Date / Time adhesive Allergy Intermediate RASH Verified 04/02/25 20:47 Iodinated Contrast Media Allergy Intermediate burning Verified 04/02/25 20:47 and aching in veins latex Allergy Intermediate RASH Verified 04/02/25 20:47 Penicillins Allergy Intermediate n/v, rash Verified 04/02/25 20:47 Anesthetics - Amide Type - AdvReac Intermediate Vomiting Verified 04/02/25 20:47 Select A [Anesthetics - Amide Type] Anesthetics - Juju Type- AdvReac Intermediate Vomiting Verified 04/02/25 20:47 Parabens hepatitis B virus vaccine AdvReac Intermediate CHEST Verified 04/02/25 20:47 TIGHTNESS WITH 2ND DOSE. ketorolac AdvReac Intermediate ITCHING. Verified 04/02/25 20:47 tromethamine AdvReac Intermediate ITCHING. Verified 04/02/25 20:47 aspirin AdvReac Unknown CONTRAINDICATED---currently Verified 04/02/25 20:47 with gastric ulcer, per pt Home Medications Medication Instructions Recorded Confirmed Type bupropion HCl 100 mg tablet 150 mg PO QAM 05/03/24 04/02/25 History carvedilol 3.125 mg tablet 3.125 mg PO BID 05/03/24 04/03/25 History clopidogrel 75 mg tablet 75 mg PO QAM 05/03/24 04/02/25 History gabapentin 300 mg capsule 300 mg PO TID 05/03/24 04/02/25 History insulin glargine 100 unit/mL (3 24 unit subcut QAM 05/03/24 04/02/25 History mL) subcutaneous pen (Lantus Solostar U-100 Insulin) lisinopril 40 mg tablet 40 mg PO QAM 05/03/24 04/02/25 History metoclopramide HCl 5 mg tablet 5 mg PO QID PRN Nausea And Vomiting 05/03/24 04/02/25 History nifedipine 30 mg tablet,extended 30 mg PO QAM 05/03/24 04/02/25 History release omeprazole 20 mg capsule,delayed 20 mg PO DAILYBB 05/03/24 04/02/25 History release sennosides 8.6 mg-docusate sodium 1 tab PO DAILY PRN Constipation 05/03/24 04/02/25 History 50 mg tablet (Senexon-S) spironolactone 25 mg tablet 25 mg PO QAM 05/03/24 04/02/25 History cholecalciferol (vitamin D3) 25 25 mcg PO QAM 07/12/24 04/02/25 History mcg (1,000 unit) chewable tablet (Vitamin D3) gabapentin 100 mg capsule 100 mg PO HS 07/12/24 04/02/25 History insulin aspart U-100 100 unit/mL 6 unit subcut AC 07/12/24 04/02/25 History (3 mL) subcutaneous pen (Novolog FlexPen U-100 Insulin aspart) levothyroxine 137 mcg tablet 137 mcg PO DAILYBB 07/12/24 04/02/25 History rosuvastatin 20 mg tablet 20 mg PO QAM 07/12/24 04/02/25 History sertraline 100 mg tablet 200 mg PO QAM 07/12/24 04/02/25 History Patient History Medical History Thoracic compression fracture Multiple rib fractures Lumbar transverse process fracture DVT (deep venous thrombosis) Hypothyroidism Neuropathy Closed fracture of radial styloid Distal radius fracture, left Fibula fracture Cellulitis of leg, right Fracture of toe of right foot Multiple fractures of ribs of right side Fall Ambulatory dysfunction Status post fall Inability to ambulate due to hip Contusion of rib on left side Acute pain of left hip Closed left humeral fracture Intertrochanteric fracture of left femur Contusion of bone Hemarthrosis involving knee joint Hyperglycemia Accidental medication overdose Headache Vomiting Precordial chest pain Chest pain Degenerative disc disease, lumbar Lumbar radiculopathy SBO (small bowel obstruction) Vomiting Abdominal pain Hernia, umbilical Acute UTI Constipation Asymptomatic hypertensive urgency Suspected UTI Chronic generalized abdominal pain Irritable bowel syndrome with constipation Degenerative arthritis of lumbar spine Neck pain Other cervical disc degeneration, mid-cervical region, unspecified level Low back pain Hyperglycemia Hyperglycemia due to type 2 diabetes mellitus Dehydration Dizziness Headache Nausea Displaced intertrochanteric fracture of right femur, initial encounter for closed fracture Contusion of right chest wall Abrasion, right knee, initial encounter Closed fracture of right hip Acute hyperglycemia Ground-level fall Acute blood loss anemia Cellulitis of great toe of right foot Cellulitis of foot, right Surgical History History of oophorectomy S/P left knee arthroscopy H/O dilation and curettage H/O abdominal surgery small bowel repair lysis of adhesions History of hysterectomy History of cholecystectomy History of tubal ligation Family History Father Lung cancer Diabetes Sister Stomach cancer Social History Smoking Status: Never smoker Tobacco Type: Cigarettes Second Hand Exposure: No; Do You Dip or Chew Tobacco: No; Hx Alcohol Use: No Hx Substance Use: No Preferred Language: Guamanian Communication Ability: Effective Visual Impairment: No Limitations Hearing Ability: Normal Rock Loader Required: No Beliefs That Will Affect Care: None marital status: Current Living Situation: Spouse Current Living Situation Comment: with How many Children do You have: 0 Other Information That Helps Us Care for You: No Feels Safe at Home: Yes Safety Concerns: Feels Safe At This Time Assistive Devices: Cane, Walker and Other Review of Systems Constitutional: no fever and no chills Respiratory: no cough and no dyspnea Cardiovascular: no chest pain Gastrointestinal: + nausea, + vomiting and + diarrhea/loos e stools Physical Exam Constitutional: well developed Respiratory: normal respiratory effort Cardiovascular: Rate/Rhythm: regular rate Gastrointestinal (Abdomen): normal bowel sounds, soft, nontender, no hepatosplenomegaly Results & Data Vital Signs (Past 12 Hours) Vital Signs Temp Pulse Resp BP Pulse Ox O2 Del Method 04/03/25 07:21 36.4 C L 69 16 153/66 H 96 Room Air PG Care Time/CCT Total # of Minutes Spent Total Time Spent with Patient: Total time spent is greater than 50% in coordination of care (as documented) at patient's floor/unit and/or counseling patient: Coding Level of Care Code 62073 INT INP/OBS CARE 3/75MIN Diagnoses Nausea vomiting and diarrhea R11.2; R19.7
[2025-04-03] MEDS: CHOLESTYRAMINE LIGHT 4 GM PKT PO SCH (21:39)
--- NOTE | 2025-04-03 22:11 | Electrocardiogram Report ---
Test Reason : Blood Pressure : */* mmHG Vent. Rate : 67 BPM Atrial Rate : 67 BPM P-R Int : 170 ms QRS Dur : 146 ms QT Int : 444 ms P-R-T Axes : 65 50 60 degrees QTcB Int : 469 ms Normal sinus rhythm Non-specific intra-ventricular conduction block Abnormal ECG When compared with ECG of 15-Jul-2024 02:03, No significant change Confirmed by Jeffery Guzman ([id number]) on 04/03/2025 10:11:10 PM Referred By: Ardia Hilliard Confirmed By: Jeffery Guzman
[2025-04-03] MEDS: MELATONIN 3 MG TAB PO PRN (22:24)
[2025-04-03] MEDS: PROMETHAZINE 6.25 MG/50.25 ML BAG IV PRN (22:59)
[2025-04-04 07:18] LABS: Hematocrit (blood only) 32.7 % (37.0-47.0); Hemoglobin 11.3 g/dl (12.0-16.0); Mean Corpuscular Hemoglobin 30.3 pg (25.0-34.0); Mean Corpuscular Volume 87.7 fL (80.0-100.0); Platelet Count 83 K/uL (130-400); RDW Standard Deviation 41.5 fL (36.4-46.3); Red Blood Count 3.73 M/uL (4.20-5.40); White Blood Count 4.53 K/ul (4.8-10.8)
[2025-04-04 07:38] LABS: Anion Gap 6.0 (3-11); Blood Urea Nitrogen 29.0 mg/dl (6-23); Calcium 9.4 mg/dl (8.6-10.3); Carbon Dioxide 24.0 mmol/L (21-32); Chloride 109.0 mmol/L (98-107); Creatinine Clr Calc Pharmacy 49.1 ml/min; Glucose 125.0 mg/dl (70-99(Fasting)); Magnesium 2.0 mg/dl (1.7-2.4); Potassium 4.4 mmol/L (3.5-5.1); Sodium 139.0 mmol/L (136-145)
[2025-04-04] MEDS: ONDANSETRON INJ 2 MG/ML 2 ML VIAL IV ONE (12:19)
--- NOTE | 2025-04-04 13:36 | Hospitalist Progress Note ---
Date of Service April 04, 2025 Assessment & Plan (1) Gastroenteritis: (2) Nausea & vomiting: (3) Acute kidney injury superimposed on CKD: (4) Ambulatory dysfunction: (5) DM type 2 (diabetes mellitus, type 2): (6) Hypertension: (7) Dyslipidemia: (8) History of CVA (cerebrovascular accident): (9) Hypothyroidism: (10) Anxiety: (11) Depression: Plan 70 year old female with PMH significant for DM II with gastroparesis and nephropathy and neuropathy, dyslipidemia, hypothyroidism, 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, portal hypertension, history of stroke, hypertension, grade I diastolic dysfunction, cirrhosis of liver with ascites, thrombocytopenia, history of PE, depression and anxiety who presented to the ED on 04/02/2025 with diarrhea x 2 weeks and is admitted for gastroenteritis. Noninfectious diarrhea Suspected viral gastroenteritis DD: Irritable bowel disease, postcholecystectomy diarrhea, collagenous/microscopic colitis Presented with nausea, vomiting, ongoing nonbloody diarrhea associated with abdominal pain H/O gastroparesis --CT ABD:Fluid within the nondilated sigmoid colon and rectum, possibly due to a diarrheal illness. Cirrhosis. -- Stool for C. difficile, stool PCR negative --Normal cortisol level Received IV fluids Appreciate GI input Continue cholestyramine May need endoscopic evaluation eventually SHELL on CKD II Cr 1.7>>1.1>1.0 Continue to hold Aldactone Avoid nephrotoxic agents as able Monitor renal function Received IV fluids UTI--less likely Patient endorses urinary frequency UA+leuk esterase, WBC, bacteria Urine culture: Noncontributory Continue empiric IV Cefepime Ambulatory dysfunction Likely secondary to dehydration d/t diarrheal illness PT/OT consults DM II Hold metformin BSG ACHS SSI while inpatient Hypertension Continue carvedilol and nifedipine Resume lisinopril Monitor blood pressure Hyperlipidemia Continue rosuvastatin History of CVA Continue Plavix, statin Hypothyroidism Continue levothyroxine Depression/anxiety Continue wellbutrin and sertraline GERD Continue PPI Cirrhosis Chronic thrombocytopenia Resume Aldactone as able DVT Px: SCDs for now Code Status: FULL CODE Admission and Anticipated Discharge Date Admission Date: April 02, 2025 Subjective Patient is seen and examined at bedside Continues to report to have nausea associated with abdominal pain Denies any diarrhea today No other complaints Review of Systems Review of Systems: All systems reviewed & are unremarkable except as noted in Subjective Physical Exam Physical Exam: Physical Exam: Vitals signs as noted above General Appearance:Overweight, no apparent distress Head: normocephalic, Atraumatic Eyes: normal inspection, EOMI Neck: supple, Trachea midline Respiratory/Chest: Normal breath sounds, CTA, No accessory muscle use Cardiovascular: S1, S2, + faint murmur Abdomen/GI:Soft, generalized tender, protuberant, Bowel sounds present Extremities/Musculoskeletal:normal inspection, no edema Neurologic/Psych:AAOX3, grossly no focal neurological deficits Skin: normal color, warm Results & Data Results & Data Vital Signs (Past 12 Hours) Vital Signs Temp Pulse Resp BP Pulse Ox O2 Del Method 04/04/25 07:30 36.6 C 63 16 155/75 H 98 Room Air Laboratory Results Short CBC 04/04/25 Range/Units 06:57 WBC 4.53 L (4.8-10.8) K/ul Hgb 11.3 L (12.0-16.0) g/dl Hct 32.7 L (37.0-47.0) % Plt Count 83 L (130-400) K/uL BMP 04/04/25 06:57 Sodium 139 Potassium 4.4 Chloride 109 H Carbon Dioxide 24 BUN 29 H Creatinine 1.05 Glucose 125 H Calcium 9.4 (5) DM type 2 (diabetes mellitus, type 2) Diabetes mellitus complication status: without complication Diabetes mellitus half-way insulin use: with termite control representative use Qualified Code(s): E11.9 - Type 2 diabetes mellitus without complications; 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
--- NOTE | 2025-04-04 13:54 | Gastroenterology Progress Note ---
Date of Service April 04, 2025 Assessment & Plan (1) Diarrhea: Plan: Patient states about the same. Just started cholestyramine. Follow response. Admission and Anticipated Discharge Date Admission Date: April 02, 2025 Subjective Diarrhea Chronic bowel problems. Carries a diagnosis of IBS-D. Started cholestyramine. She is on received 1 dose of this. Difficult to tell if this is going to make a difference and will take a few days. Hard to get a history from her this a.m. as she was sedated last evening for sleep and remains quite drowsy. Continue cholestyramine. Cortisol level was normal though low normal at 7.61. Reassess tomorrow. If no response could consider biopsies for microscopic collagenous colitis. Alternatively we could give her a trial of budesonide for this condition with outpatient follow-up. Physical Exam Physical Exam: Quite sleepy. Arouses to voice. Complains of abdominal pain though the abdomen is benign on palpation. Results & Data Results & Data Vital Signs (Past 12 Hours) Vital Signs Temp Pulse Resp BP Pulse Ox O2 Del Method 04/04/25 07:30 36.6 C 63 16 155/75 H 98 Room Air PG Care Time/CCT Total # of Minutes Spent Total Time Spent with Patient: Total time spent is greater than 50% in coordination of care (as documented) at patient's floor/unit and/or counseling patient: Coding Level of Care Code 89372 SUB INP/OBS CARE 09/06MIN Diagnoses Diarrhea R19.7
[2025-04-05 06:52] LABS: Hematocrit (blood only) 33.7 % (37.0-47.0); Hemoglobin 11.2 g/dl (12.0-16.0); Mean Corpuscular Hemoglobin 29.6 pg (25.0-34.0); Mean Corpuscular Volume 88.9 fL (80.0-100.0); Platelet Count 92 K/uL (130-400); RDW Standard Deviation 42.5 fL (36.4-46.3); Red Blood Count 3.79 M/uL (4.20-5.40); White Blood Count 5.55 K/ul (4.8-10.8)
[2025-04-05 07:19] LABS: Anion Gap 5.0 (3-11); Blood Urea Nitrogen 32.0 mg/dl (6-23); Calcium 9.4 mg/dl (8.6-10.3); Carbon Dioxide 26.0 mmol/L (21-32); Chloride 107.0 mmol/L (98-107); Creatinine Clr Calc Pharmacy 45.6 ml/min; Glucose 111.0 mg/dl (70-99(Fasting)); Potassium 4.8 mmol/L (3.5-5.1); Sodium 138.0 mmol/L (136-145)
--- NOTE | 2025-04-05 09:51 | Gastroenterology Progress Note ---
Date of Service April 05, 2025 Assessment & Plan (1) Diarrhea: Plan: Underlying irritable bowel with diarrhea. Potential gastroenteritis on top of this. Seems to have settled. Cholestyramine stopped due to onset of constipation. Recommend Benefiber and/or Metamucil twice daily. Follow-up as an outpatient with [facility]. (2) Gastroenteritis and colitis, viral: Plan: Stools negative Admission and Anticipated Discharge Date Admission Date: April 02, 2025 Subjective IBS Now complaining of constipation. No bowel movements. Cholestyramine stopped for that reason. I suspect the chasing of her constipation then diarrhea is playing a role in her symptoms. She has previous cholecystectomy which may predispose her to bile salt diarrhea. Cholestyramine effective but might be constipating. A [id number] approach here for her may be Benefiber or Metamucil this is a week bile acid binder but should not cause significant constipation and may be helpful to give form for her liquid stools. Can probably be discharge from a GI perspective. She would like to follow-up as an outpatient. I will have Denzel AMBROCIO call her for an outpatient appointment in 2 to 3 weeks. GI signs off reconsult as needed Physical Exam Physical Exam: Benign abdomen Results & Data Results & Data Vital Signs (Past 12 Hours) Vital Signs Temp Pulse Resp BP Pulse Ox O2 Del Method 04/05/25 08:10 36.5 C 79 16 153/84 H 93 Room Air 04/04/25 23:08 36.6 C 69 16 100/58 L 95 Room Air PG Care Time/CCT Total # of Minutes Spent Total Time Spent with Patient: Total time spent is greater than 50% in coordination of care (as documented) at patient's floor/unit and/or counseling patient: Coding Level of Care Code 42319 SUB INP/OBS CARE 09/06MIN Diagnoses Diarrhea R19.7 Gastroenteritis and colitis, viral A08.4
--- NOTE | 2025-04-05 13:04 | Hospitalist Progress Note ---
Date of Service April 05, 2025 Assessment & Plan (1) Gastroenteritis: (2) Nausea & vomiting: (3) Acute kidney injury superimposed on CKD: (4) Ambulatory dysfunction: (5) DM type 2 (diabetes mellitus, type 2): (6) Hypertension: (7) Dyslipidemia: (8) History of CVA (cerebrovascular accident): (9) Hypothyroidism: (10) Anxiety: (11) Depression: Plan 70 year old female with PMH significant for DM II with gastroparesis and nephropathy and neuropathy, dyslipidemia, hypothyroidism, 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, portal hypertension, history of stroke, hypertension, grade I diastolic dysfunction, cirrhosis of liver with ascites, thrombocytopenia, history of PE, depression and anxiety who presented to the ED on 04/02/2025 with diarrhea x 2 weeks and is admitted for gastroenteritis. Noninfectious diarrhea Suspected viral gastroenteritis DD: Irritable bowel disease, postcholecystectomy diarrhea, collagenous/microscopic colitis Presented with nausea, vomiting, ongoing nonbloody diarrhea associated with abdominal pain H/O gastroparesis --CT ABD:Fluid within the nondilated sigmoid colon and rectum, possibly due to a diarrheal illness. Cirrhosis. -- Stool for C. difficile, stool PCR negative --Normal cortisol level Received IV fluids Appreciate GI input Cholestyramine discontinued as now causing constipation Started on Metamucil Will need colonoscopy eventually likely as outpatient Needs follow-up with GI on discharge PT OT eval SHELL on CKD II Cr 1.7>>1.1 Continue to hold Aldactone Avoid nephrotoxic agents as able Monitor renal function Received IV fluids UTI--less likely Patient endorses urinary frequency UA+leuk esterase, WBC, bacteria Urine culture: Noncontributory Will complete 3-day course of IV cefepime today Ambulatory dysfunction Likely secondary to dehydration d/t diarrheal illness PT/OT eval DM II Hold metformin BSG ACHS SSI while inpatient Hypertension Continue carvedilol, lisinopril and nifedipine Monitor blood pressure Hyperlipidemia Continue rosuvastatin History of CVA Continue Plavix, statin Hypothyroidism Continue levothyroxine Depression/anxiety Continue wellbutrin and sertraline GERD Continue PPI Cirrhosis Chronic thrombocytopenia Resume Aldactone as able DVT Px: SCDs for now Code Status: FULL CODE Admission and Anticipated Discharge Date Admission Date: April 02, 2025 Subjective Patient is seen and examined at bedside Patient states that she does not feel ready to be discharged today Reports generalized abdominal pain No more diarrhea, feels getting constipated Denies any nausea, vomiting, dizziness Also reports having headache today Review of Systems Review of Systems: All systems reviewed & are unremarkable except as noted in Subjective Physical Exam Physical Exam: Physical Exam: Vitals signs as noted above General Appearance:Overweight, no apparent distress Head: normocephalic, Atraumatic Eyes: normal inspection, EOMI Neck: supple, Trachea midline Respiratory/Chest: Normal breath sounds, CTA, No accessory muscle use Cardiovascular: S1, S2, + faint murmur Abdomen/GI:Soft, generalized tender, protuberant, Bowel sounds present Extremities/Musculoskeletal:normal inspection, no edema Neurologic/Psych:AAOX3, grossly no focal neurological deficits Skin: normal color, warm Results & Data Results & Data Vital Signs (Past 12 Hours) Vital Signs Temp Pulse Resp BP Pulse Ox O2 Del Method 04/05/25 08:10 36.5 C 79 16 153/84 H 93 Room Air Laboratory Results Short CBC 04/05/25 Range/Units 06:32 WBC 5.55 (4.8-10.8) K/ul Hgb 11.2 L (12.0-16.0) g/dl Hct 33.7 L (37.0-47.0) % Plt Count 92 L (130-400) K/uL BMP 04/05/25 06:32 Sodium 138 Potassium 4.8 Chloride 107 Carbon Dioxide 26 BUN 32 H Creatinine 1.13 Glucose 111 H Calcium 9.4 (5) DM type 2 (diabetes mellitus, type 2) Diabetes mellitus complication status: without complication Diabetes mellitus custodial insulin use: with custodial use Qualified Code(s): E11.9 - Type 2 diabetes mellitus without complications; 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
[2025-04-05] MEDS: CEFEPIME 2000MG 2,000 MG/20 ML SYR IV SCH (20:11)
[2025-04-06 07:43] VITALS: RESP 18
[2025-04-06] MEDS: POLYETHYLENE (MIRALAX) 17 GM PACK PO SCH (08:55)
[2025-04-06] MEDS: PSYLLIUM HUSK 4GM PACKET PO SCH (08:56)
[2025-04-06 11:41] VITALS: TEMP 98.1; O2SAT 94
--- NOTE | 2025-04-06 12:00 | Hospitalist Progress Note ---
Date of Service April 06, 2025 Assessment & Plan (1) Gastroenteritis: (2) Nausea & vomiting: (3) Acute kidney injury superimposed on CKD: (4) Ambulatory dysfunction: (5) DM type 2 (diabetes mellitus, type 2): (6) Hypertension: (7) Dyslipidemia: (8) History of CVA (cerebrovascular accident): (9) Hypothyroidism: (10) Anxiety: (11) Depression: Plan 70 year old female with PMH significant for DM II with gastroparesis and nephropathy and neuropathy, dyslipidemia, hypothyroidism, 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, portal hypertension, history of stroke, hypertension, grade I diastolic dysfunction, cirrhosis of liver with ascites, thrombocytopenia, history of PE, depression and anxiety who presented to the ED on 04/02/2025 with diarrhea x 2 weeks and is admitted for gastroenteritis. Noninfectious diarrhea Suspected viral gastroenteritis DD: Irritable bowel disease, postcholecystectomy diarrhea, collagenous/microscopic colitis Presented with nausea, vomiting, ongoing nonbloody diarrhea associated with abdominal pain H/O gastroparesis --CT ABD:Fluid within the nondilated sigmoid colon and rectum, possibly due to a diarrheal illness. Cirrhosis. -- Stool for C. difficile, stool PCR negative --Normal cortisol level Received IV fluids Appreciate GI input Cholestyramine discontinued as now causing constipation Started on Metamucil Advised to follow-up with [facility] cad application support specialist as outpatient for colonoscopy Did well with PT today Plan to discharge home today SHELL on CKD II Cr 1.7>>1.1 Continue to hold Aldactone Avoid nephrotoxic agents as able Monitor renal function Received IV fluids UTI--less likely Patient endorses urinary frequency UA+leuk esterase, WBC, bacteria Urine culture: Noncontributory Completed 3-day course of IV cefepime Ambulatory dysfunction Likely secondary to dehydration d/t diarrheal illness PT/OT eval DM II Hold metformin BSG ACHS SSI while inpatient Hypertension Continue carvedilol, lisinopril and nifedipine Monitor blood pressure Hyperlipidemia Continue rosuvastatin History of CVA Continue Plavix, statin Hypothyroidism Continue levothyroxine Depression/anxiety Continue wellbutrin and sertraline GERD Continue PPI Cirrhosis Chronic thrombocytopenia Resume Aldactone on discharge DVT Px: SCDs for now Code Status: FULL CODE Disposition Home Admission and Anticipated Discharge Date Admission Date: April 02, 2025 Subjective Patient is seen and examined at bedside No recurrence of diarrhea Abdominal pain better No new complaint Tolerating current diet Denies any chest pain, dyspnea, nausea, vomiting Plan to be discharged home today Review of Systems Review of Systems: All systems reviewed & are unremarkable except as noted in Subjective Physical Exam Physical Exam: Physical Exam: Vitals signs as noted above General Appearance:Overweight, no apparent distress Head: normocephalic, Atraumatic Eyes: normal inspection, EOMI Neck: supple, Trachea midline Respiratory/Chest: Normal breath sounds, CTA, No accessory muscle use Cardiovascular: S1, S2, + faint murmur Abdomen/GI:Soft, non tender, protuberant, Bowel sounds present Extremities/Musculoskeletal:normal inspection, no edema Neurologic/Psych:AAOX3, grossly no focal neurological deficits Skin: normal color, warm Results & Data Results & Data Vital Signs (Past 12 Hours) Vital Signs Temp Pulse Pulse Pulse Resp BP BP 04/06/25 11:39 36.7 C 68 18 113/71 04/06/25 07:37 36.6 C 68 66 68 18 106/60 04/06/25 00:01 74 103/61 Pulse Ox O2 Del Method 04/06/25 11:39 94 Room Air 04/06/25 07:37 98 Room Air 04/06/25 00:01 (5) DM type 2 (diabetes mellitus, type 2) Diabetes mellitus complication status: without complication Diabetes mellitus skilled nursing insulin use: with skilled nursing use Qualified Code(s): E11.9 - Type 2 diabetes mellitus without complications; 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
--- NOTE | 2025-04-06 12:05 | Discharge Summary ---
Date of Service April 06, 2025 Admission HPI Per Admitting Provider 70 year old female with PMH significant for DM II with gastroparesis and nephropathy and neuropathy, dyslipidemia, hypothyroidism, 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, portal hypertension, history of stroke, hypertension, grade I diastolic dysfunction, cirrhosis of liver with ascites, thrombocytopenia, history of PE, depression and anxiety who presented to the ED on 04/02/2025 with diarrhea x2 weeks. Patient reports that she has been having diarrhea with associated poor PO, nausea with intermittent vomiting, and aching lower and epigastric abdominal pain for two weeks. She reports some days she only has one bout of diarrhea and other days it is up to 5 times a day. She reports chills for one day but did not take her temperature to know if it was a fever. She is scared to eat because she feels like everything goes right through her. She feels very weak and wiped out and feels as though she can hardly walk because she has no strength left. Denies any falls. Denies sick contacts. Denies recent antibiotics. Denies cough, cold sympt oms, chest pain, SOB, dysuria. Admission Exam Per Admitting Provider General/Psych: ill appearing, sitting up in bed, NAD, conversing easily Head: normocephalic, atraumatic Eyes: normal inspection, PERRL, conjunctivae pink ENT: external ear and nose normal, oropharynx normal Neck: normal visual inspection, trachea midline Respiratory: normal respiratory effort, lungs clear to auscultation, no wheeze/rales/rhonchi, no accessory muscle use Cardiovascular: regular rate and rhythm, no murmur/rub/gallop, no JVD Extremities: no cyanosis or clubbing, normal peripheral pulses, no BLE edema Abdomen/GI: normal bowel sounds, soft, rounded, tender on palpation LUQ Neurologic/MSK: A+Ox3, motor strength 5/5, moves all extremities Skin: no rashes, normal color, warm and dry Principal Diagnosis Gastroenteritis Gastroparesis Acute kidney injury on CKD stage II Suspected urinary tract infection Ambulatory dysfunction Discharge Data Allergies Allergy/AdvReac Type Severity Reaction Status Date / Time adhesive Allergy Intermediate RASH Verified 04/02/25 20:47 Iodinated Contrast Media Allergy Intermediate burning Verified 04/02/25 20:47 and aching in veins latex Allergy Intermediate RASH Verified 04/02/25 20:47 Penicillins Allergy Intermediate n/v, rash Verified 04/02/25 20:47 Anesthetics - Amide Type - AdvReac Intermediate Vomiting Verified 04/02/25 20:47 Select A [Anesthetics - Amide Type] Anesthetics - Juju Type- AdvReac Intermediate Vomiting Verified 04/02/25 20:47 Parabens hepatitis B virus vaccine AdvReac Intermediate CHEST Verified 04/02/25 20:47 TIGHTNESS WITH 2ND DOSE. ketorolac AdvReac Intermediate ITCHING. Verified 04/02/25 20:47 tromethamine AdvReac Intermediate ITCHING. Verified 04/02/25 20:47 aspirin AdvReac Unknown CONTRAINDICATED---currently Verified 04/02/25 20:47 with gastric ulcer, per pt Consultations 04/02/25 19:10 ED Decision to Admit Stat 04/03/25 10:19 Consult Gastroenterology Routine Procedures Performed Laboratory Results WBC 5.55 K/ul (4.8-10.8) 04/05/25 06:32 RBC 3.79 M/uL (4.20-5.40) L 04/05/25 06:32 Hgb 11.2 g/dl (12.0-16.0) L 04/05/25 06:32 Hct 33.7 % (37.0-47.0) L 04/05/25 06:32 MCV 88.9 fL (80.0-100.0) 04/05/25 06:32 MCH 29.6 pg (25.0-34.0) 04/05/25 06:32 MCHC 33.2 g/dL (32.0-36.0) 04/05/25 06:32 RDW Std Deviation 42.5 fL (36.4-46.3) 04/05/25 06:32 RDW Coeff of Dia 13.2 % (11.5-14.5) 04/05/25 06:32 Plt Count 92 K/uL (130-400) L 04/05/25 06:32 MPV 9.3 fL (9.4-12.4) L 04/05/25 06:32 Immature Gran % (Auto) 0.2 % 04/03/25 06:39 Neut % (Auto) 67.3 % 04/03/25 06:39 Lymph % (Auto) 23.4 % 04/03/25 06:39 [place] % (Auto) 7.5 % 04/03/25 06:39 Eos % (Auto) 1.2 % 04/03/25 06:39 Baso % (Auto) 0.4 % 04/03/25 06:39 Neut # (Auto) 3.51 K/uL (1.40-6.50) 04/03/25 06:39 Lymph # (Auto) 1.22 K/uL (1.20-3.40) 04/03/25 06:39 [place] # (Auto) 0.39 K/uL (0.11-0.59) 04/03/25 06:39 Eos # (Auto) 0.06 K/uL (0.00-0.50) 04/03/25 06:39 Baso # (Auto) 0.02 K/uL (0.00-0.20) 04/03/25 06:39 Immature Gran # (Auto) 0.01 K/uL (0.01-0.20) 04/03/25 06:39 PT 11.0 Seconds (9.0-12.0) 04/02/25 16:43 INR 1.0 (0.9-1.1) 04/02/25 16:43 APTT 23 Seconds (21-31) 04/02/25 16:43 PTT Ratio 0.9 04/02/25 16:43 Sodium 138 mmol/L (136-145) 04/05/25 06:32 Potassium 4.8 mmol/L (3.5-5.1) 04/05/25 06:32 Chloride 107 mmol/L (98-107) 04/05/25 06:32 Carbon Dioxide 26 mmol/L (21-32) 04/05/25 06:32 Anion Gap 5 (3-11) 04/05/25 06:32 BUN 32 mg/dl (6-23) H 04/05/25 06:32 Creatinine 1.13 mg/dl (0.6-1.2) 04/05/25 06:32 Est Cr Clr Drug Dosing 45.6 ml/min 04/05/25 06:32 eGFR 52.66 04/05/25 06:32 BUN/Creatinine Ratio 28.3 (10-20) H 04/05/25 06:32 Glucose 111 mg/dl (70-99(Fasting)) H 04/05/25 06:32 POC Glucose 158 mg/dl (70-99) H 04/06/25 11:19 Calcium 9.4 mg/dl (8.6-10.3) 04/05/25 06:32 Phosphorus 4.5 mg/dl (2.5-4.9) 04/02/25 16:43 Magnesium 2.0 mg/dl (1.7-2.4) 04/04/25 06:57 Total Bilirubin 0.6 mg/dl (0.2-1.0) 04/02/25 16:43 AST 36 U/L (13-39) 04/02/25 16:43 ALT 26 U/L (7-52) 04/02/25 16:43 Alkaline Phosphatase 90 U/L (34-104) 04/02/25 16:43 Troponin I High Sens 5.0 pg/ml (0-14) 04/02/25 16:43 Total Protein 8.0 gm/dl (6.0-8.3) 04/02/25 16:43 Albumin 4.2 gm/dl (3.4-5.0) 04/02/25 16:43 Globulin 3.8 gm/dl (2.5-4.0) 04/02/25 16:43 Albumin/Globulin Ratio 1.1 (0.9-2) 04/02/25 16:43 Lipase 50 U/L (11-82) 04/02/25 16:43 Procalcitonin Cancelled 04/02/25 16:43 TSH 1.899 uIu/ml (0.300-4.500) 04/03/25 06:39 Cortisol AM Sample 7.61 mcg/dl (6.2-22.6) 04/04/25 07:03 Urine Color Dark Yellow 04/02/25 18:02 Urine Appearance Cloudy (Clear) A 04/02/25 18:02 Urine pH 5.5 (4.5-7.5) 04/02/25 18:02 Ur Specific [place] 1.021 (1.000-1.030) 04/02/25 18:02 Urine Protein 1+ (Negative) H 04/02/25 18:02 Urine Glucose (UA) Negative (Negative) 04/02/25 18:02 Urine Ketones Negative (Negative) 04/02/25 18:02 Urine Blood Trace (Negative) H 04/02/25 18:02 Urine Nitrite Negative (Negative) 04/02/25 18:02 Urine Bilirubin 1+ (Negative) H 04/02/25 18:02 Urine Urobilinogen Negative (Negative) 04/02/25 18:02 Ur Leukocyte Esterase 3+ (Negative) H 04/02/25 18:02 Urine WBC (Auto) >50 /hpf (0-5) H 04/02/25 18:02 Urine RBC (Auto) 6-10 /hpf (0-2) H 04/02/25 18:02 U Hyaline Cast (Auto) >20 /lpf (0-2) H 04/02/25 18:02 U Epithel Cells (Auto) 3-5 /hpf (0-2) H 04/02/25 18:02 Urine Bacteria (Auto) 3+ (None Seen) H 04/02/25 18:02 Calcium Oxalate Crystal Present (None Prsent) A 04/02/25 18:02 Urine Comment 04/02/25 18:02 Stl C. cayetanensis PCR Not Detected (NotDetected) 04/02/25 Unknown Stool Rotavirus A PCR Not Detected (NotDetected) 04/02/25 Unknown Stl Adenov F 40/41 PCR Not Detected (NotDetected) 04/02/25 Unknown Stool Astrovirus (PCR) Not Detected (NotDetected) 04/02/25 Unknown Stool Campylobacter PCR Not Detected (NotDetected) 04/02/25 Unknown Stl C. diff Tox B Gene Negative Cdiff Gene (Neg) 04/02/25 Unknown Stl C. diff 027-NAP1-BI NEGATIVE 04/02/25 Unknown Stool Cryptosporidium PCR Not Detected (NotDetected) 04/02/25 Unknown Stl E.coli Shiga Tox PCR Not Detected (NotDetected) 04/02/25 Unknown Stl Enterotoxigenic E PCR Not Detected (NotDetected) 04/02/25 Unknown Stool EPEC (PCR) Not Detected (NotDetected) 04/02/25 Unknown Stool EAEC (PCR) Not Detected (NotDetected) 04/02/25 Unknown Stl E. histolytica PCR Not Detected (NotDetected) 04/02/25 Unknown Stool Giardia Lamblia PCR Not Detected (NotDetected) 04/02/25 Unknown Stool Salmonella PCR Not Detected (NotDetected) 04/02/25 Unknown Stool Sapovirus (PCR) Not Detected (NotDetected) 04/02/25 Unknown Stl P. shigelloides PCR Not Detected (NotDetected) 04/02/25 Unknown Stl Shigella/EIEC PCR Not Detected (NotDetected) 04/02/[address].enterocolitica PCR Not Detected (NotDetected) 04/02/25 Unknown Stool Vibrio (PCR) Not Detected (NotDetected) 04/02/25 Unknown Stl Vibrio cholerae PCR Not Detected (NotDetected) 04/02/25 Unknown Stl Norovirus GI/GII PCR Not Detected (NotDetected) 04/02/25 Unknown Adenovirus (PCR) Not Detected (NotDetected) 04/02/25 17:07 B. pertussis DNA (PCR) Not Detected (NotDetected) 04/02/25 17:07 B.parapertussis DNA PCR Not Detected (NotDetected) 04/02/25 17:07 C. pneumoniae DNA (PCR) Not Detected (NotDetected) 04/02/25 17:07 Coronavirus OC43 (PCR) Not Detected (NotDetected) 04/02/25 17:07 Coronavirus HKU1 (PCR) Not Detected (NotDetected) 04/02/25 17:07 Coronavirus 229E (PCR) Not Detected (NotDetected) 04/02/25 17:07 SARS-CoV-2 (PCR) Not Detected (NotDetected) 04/02/25 17:07 Coronavirus NL63 (PCR) Not Detected (NotDetected) 04/02/25 17:07 Human Metapneumovir PCR Not Detected (NotDetected) 04/02/25 17:07 Influenza Type A (PCR) Not Detected (NotDetected) 04/02/25 17:07 Influenza Type B (PCR) Not Detected (NotDetected) 04/02/25 17:07 M. pneumoniae (PCR) Not Detected (NotDetected) 04/02/25 17:07 Parainfluenza 1 (PCR) Not Detected (NotDetected) 04/02/25 17:07 Parainfluenza 2 (PCR) Not Detected (NotDetected) 04/02/25 17:07 Parainfluenza 3 (PCR) Not Detected (NotDetected) 04/02/25 17:07 Parainfluenza 4 (PCR) Not Detected (NotDetected) 04/02/25 17:07 RSV (PCR) Not Detected (NotDetected) 04/02/25 17:07 Entero/Rhino (PCR) Not Detected (NotDetected) 04/02/25 17:07 Ref Lab Test Result See Scanned Report 04/02/25 16:43 Impressions Chest X-Ray 04/02/25 16:48 Clinical History: Chest pain Technique: A frontal view of the chest was obtained Comparison is made to the prior examination dated 07/12/2024 Findings: There are no confluent pulmonary infiltrates. The heart size is within normal limits. No pleural effusion or pneumothorax is seen. There is no definite pulmonary nodule. No fracture is noted. No foreign body is seen Impression: No active disease Electronically signed by Jax Bravo 04-02-2025 5:36 PM Abdomen/Pelvis CT 04/02/25 17:18 EXAMINATION: CT of the abdomen and pelvis performed without contrast TECHNIQUE: Helical CT images from the lung bases through the symphysis pubis were obtained without contrast. Coronal and sagittal reformatted images were generated at a workstation for further assessment. Dose reduction techniques were achieved by using automatic exposure control and/or adjustment of mA and/or kV according to patient size and/or use of iterative reconstruction technique. COMPARISON: 07/12/2024 HISTORY: Abdominal pain FINDINGS: Lower chest: No consolidation. No pleural effusion or pneumothorax. Liver: No suspicious liver lesions. Nodular contour of the liver suggestive of cirrhosis. The liver is enlarged measuring 20 cm Gallbladder: Close to ectomy Spleen: Enlarged measuring 13.9 cm. Pancreas: No suspicious pancreatic lesions. The pancreatic duct is not dilated. Adrenal glands: No adrenal nodules. Kidneys: No hydronephrosis or obstructing renal stones. Bladder / Pelvic organs: Unremarkable. Bowel: No bowel obstruction. No abnormal bowel wall thickening. The appendix is unremarkable. There is fluid in the nondilated sigmoid colon and rectum Lymph nodes: No retroperitoneal, mesenteric, or pelvic lymphadenopathy. Peritoneum / Retroperitoneum: No free fluid or air within the abdomen. Vessels: No infrarenal aortic aneurysm. Bones and soft tissues: No suspicious lesion in the bones. Bilateral cephalomedullary prince with dynamic interlocking femoral neck screw fixation. IMPRESSION: Fluid within the nondilated sigmoid colon and rectum, possibly due to a diarrheal illness. Cirrhosis. Electronically signed by Gui Levy 04-02-2025 6:31 PM Ordered Studies 04/02/25 17:18 CT abd pelvis wo con Stat Hospital Course (1) Gastroenteritis: (2) Nausea & vomiting: (3) Acute kidney injury superimposed on CKD: (4) Ambulatory dysfunction: (5) DM type 2 (diabetes mellitus, type 2): (6) Hypertension: (7) Dyslipidemia: (8) History of CVA (cerebrovascular accident): (9) Hypothyroidism: (10) Anxiety: (11) Depression: Plan 70 year old female with PMH significant for DM II with gastroparesis and nephropathy and neuropathy, dyslipidemia, hypothyroidism, 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, portal hypertension, history of stroke, hypertension, grade I diastolic dysfunction, cirrhosis of liver with ascites, thrombocytopenia, history of PE, depression and anxiety who presented to the ED on 04/02/2025 with diarrhea x 2 weeks and is admitted for gastroenteritis. Noninfectious diarrhea Suspected viral gastroenteritis DD: Irritable bowel disease, postcholecystectomy diarrhea, collagenous/microscopic colitis Presented with nausea, vomiting, ongoing nonbloody diarrhea associated with abdominal pain H/O gastroparesis --CT ABD:Fluid within the nondilated sigmoid colon and rectum, possibly due to a diarrheal illness. Cirrhosis. -- Stool for C. difficile, stool PCR negative --Normal cortisol level Received IV fluids Appreciate GI input Cholestyramine discontinued as now causing constipation Started on Metamucil Advised to follow-up with [facility] java j2ee software engineer as outpatient for colonoscopy Did well with PT today Plan to discharge home today SHELL on CKD II Cr 1.7>>1.1 Continue to hold Aldactone Avoid nephrotoxic agents as able Monitor renal function Received IV fluids UTI--less likely Patient endorses urinary frequency UA+leuk esterase, WBC, bacteria Urine culture: Noncontributory Completed 3-day course of IV cefepime Ambulatory dysfunction Likely secondary to dehydration d/t diarrheal illness PT/OT eval DM II Hold metformin BSG ACHS SSI while inpatient Hypertension Continue carvedilol, lisinopril and nifedipine Monitor blood pressure Hyperlipidemia Continue rosuvastatin History of CVA Continue Plavix, statin Hypothyroidism Continue levothyroxine Depression/anxiety Continue wellbutrin and sertraline GERD Continue PPI Cirrhosis Chronic thrombocytopenia Resume Aldactone on discharge DVT Px: SCDs for now Code Status: FULL CODE Disposition Home Total Time Total Time Spent Total Time Spent (In Minutes): 54 minutes Discharge Plan Discharge Items Patient Disposition: Home - Self-Care Reason For Visit: COMP UTI Discharge Diagnosis: Gastroenteritis Gastroparesis Acute kidney injury on CKD stage II Suspected urinary tract infection Ambulatory dysfunction Condition on Discharge: Fair Activity: Per Instructions section Exercise/Sports: Gradually increase as tolerated Non-emergency contact: Primary Care Provider and Loan Review Officer Call non-emergency contact if: you have any medication questions, your symptoms worsen, your pain is concerning for you and you have a fever Follow-up/Referrals: Adria Hilliard MD [Primary Care Provider] - (Date & Time 04/09/2025 9:40 AM Provider: Adria Hilliard MD [facility], [facility] ) Diet: Carb Consistent or DM2 and Heart Healthy Addtl Attending Provider Instructions: -- Follow-up with your primary care physician on 04/09/2025 9:40 AM -- Follow-up with your java j2ee software engineer for possible colonoscopy as outpatient Seek immediate medical attention if your symptoms reoccur or worsen Please review medication list provided on discharge for any medication changes as instructed. Please call if you have any questions or problems. You can reach a [facility] hospitalist on duty at [facility] 24 hours a day by calling [phone] Pending Studies at Discharge: No Stand-Alone Forms: My [facility], Smoking Cessation Medications and DC Order Prescriptions: New Benefiber (inulin-corn fiber) 2 gram tablet,chewable 1 tab PO BID Qty: 60 0RF Continued sennosides-docusate sodium [Senexon-S] 8.6-50 mg tablet 1 tab PO DAILY PRN (Reason: Constipation) nifedipine 30 mg tablet extended release 30 mg PO QAM clopidogrel 75 mg tablet 75 mg PO QAM spironolactone 25 mg tablet 25 mg PO QAM carvedilol 3.125 mg tablet 3.125 mg PO BID metoclopramide HCl 5 mg tablet 5 mg PO QID PRN (Reason: Nausea And Vomiting) gabapentin 300 mg capsule 300 mg PO TID Rx Instructions: MORNING,NOON AND BEFORE BED omeprazole 20 mg capsule,delayed release(DR/EC) 20 mg PO DAILYBB lisinopril 40 mg tablet 40 mg PO QAM Hold Instructions: Resume on 07/24/24. Restart if systolic Blood pressure is greater than 130/80 mm Hg consistently for 2 days insulin glargine [Lantus Solostar U-100 Insulin] 100 unit/mL (3 mL) insulin pen 24 unit SUBCUT QAM bupropion HCl 100 mg Tablet 150 mg PO QAM Rx Instructions: PT TAKES 1 AND 1/2 TABLET BY MOUTH DAILY insulin aspart U-100 [Novolog FlexPen U-100 Insulin] 100 unit/mL (3 mL) insulin pen 6 unit SUBCUT AC Rx Instructions: 6 OR MORE UNITS FOLLOWING CHART PROVIDED BY MT ...MAX DOSE OF 30 UNTIS gabapentin 100 mg capsule 100 mg PO HS Rx Instructions: TAKE ALONG WITH 300MG PER PT cholecalciferol (vitamin D3) [Vitamin D3] 25 mcg (1,000 unit) Tablet,Chewable 25 mcg PO QAM levothyroxine 137 mcg tablet 137 mcg PO DAILYBB sertraline 100 mg tablet 200 mg PO QAM rosuvastatin 20 mg tablet 20 mg PO QAM Discharge Orders: Discharge Order (Routine); Ordered 04/06/25 Ordered By: Sanchez Garcia Admission Data Admit Date/Time: 04/02/25 20:51 Attending Provider: Sanchez Garcia Admit Provider: Jose Carlos Luevano Primary Care Provider: Adria Hilliard Other Providers: Jose Carlos Luevano; Vincent Butler; Jackson Richardson; Michelle Doll; Ness Arizmendi; Vannessa Alcantar; Annabelle Soares; Miguel Sandhu; Shreya Rodríguez; Lavern Walker; Virgil Jansen; Kathe Troy; Sulma Pink; Latha Day; Mary Bejarano; Yuliya Martinez; Loc Velasquez; Gary Borges; Alma Mike; Daniel Figueroa Jr; Baldev Godfrey; Rod Westbrook; Donaldo Cox; Marvin Castro; Fariha Mohr.; Ruperto Rollins I; Madonna Rios; Michael Nobles; Eduardo Navarro; Padilla Ruiz; Misha Stanley
[2025-04-06 13:07] VITALS: BP 106/60; PULSE 73
== END 2025-04-06 13:34 | disposition home or self-care (01) | DRG 392 ==
LOC: ED 16:16 → 3N 20:51

== ENCOUNTER 2025-06-03 17:17 | Inpatient (IN) ==
--- NOTE | 2025-06-03 17:48 | Emergency Department Note ---
Impression & Plan Weakness, Fall, Abdominal wall contusion, Thrombocytopenia ED Provider Note NAME: RENAN VILLAGRAN AGE: 70 SEX: F : 1955 ARRIVES VIA: Walk-In INFORMANT: [Patient] ED PROVIDER(S): [Félix Nogueira MD] Patient first seen by me at 1736 CHIEF COMPLAINT: Fall HISTORY OF PRESENT ILLNESS: The patient is a 70-year-old female who takes Plavix. Over the last several days to a week, she has fallen multiple times, several times a day. She states that both legs just give out and she falls. She has hit her head and has complaints of a headache as well as diffuse back pain. She did fall into a piece of furniture with one of her recent falls and, she has some pain along the left ribs and left abdomen. The patient denies any fever, cough or congestion. No urinary complaints. She is not sure why her legs just give out. A few times she was on the floor for a while before she could crawl and get herself up using the furniture in the room. PMHx/PSHx/Social Hx: See Below PHYSICAL EXAM: Primary Survey Airway: Intact Breathing: Breath sounds equal bilaterally. No respiratory distress Circulation: Skin warm, capillary refill less than 2 seconds Disability: Pupils equal and reactive to light Motor Function: Moves all extremities. Sensory: No deficits Secondary Survey GEN: Well developed and well-nourished HEAD: Normocephalic, atraumatic EYES: Pupils round and reactive to light, conjunctiva clear, extraocular movements intact ENT: No fluid in external acoustic canals, nares patent, oropharynx clear NECK: Midline trachea, diffusely mildly tender C-spine without step-off. HEART: Regular rate and rhythm LUNGS: Clear to auscultation bilaterally CHEST: Tender to the left lateral lower ribs without contusion or crepitus. ABD: There is a 5 to 6 cm contusion to the left lower lateral abdomen. PELVIS: Stable to rock BACK: No step offs or deformities, T-L spine non tender. Diffusely tender thoracic and lumbar spine. EXT: Moving all extremities well, no gross deformities NEURO: No focal motor deficits, no sensory deficits DIFFERENTIAL DIAGNOSIS: Intracranial injury, spinal injury, chest or abdominal trauma, dehydration, anemia, UTI, among others. EMERGENCY DEPARTMENT PROCEDURES: C-spine clinic cleared at 1840, once the CT imaging returned. MEDICAL DECISION MAKING: There is no leukocytosis or worrisome anemia. The patient's platelet count is low, this has been documented before. No bandemia. No coagulopathy. No renal failure or significant electrolyte abnormality. Total CK is not elevated making rhabdomyolysis unlikely. There was no evidence for pancreatitis. The patient appeared to be in a euthyroid state. No concerning liver enzyme elevation. ECG shows a sinus rhythm, no ST elevation. Cardiac enzyme testing x 1 is not consistent with acute cardiac injury. Chest x-ray did not show rib injury or pneumonia. There was no pneumothorax. Brain CT showed no acute bleed or mass effect. C-spine CT showed no acute fracture. Thoracic and lumbar spine CTs did not show any acute fracture. Chest and abdominal CT scans did not show any acute intrathoracic or intra-abdominal injury. On exam, the patient did have a contusion to the left abdominal wall. She was not toxic or febrile. Patient received IV saline, 1 L. She did receive IV Zofran for nausea. She was given IV fentanyl for pain. She received IV Benadryl and IV methylprednisolone as premedication for her CT imaging. The patient is falling quite frequently. She is not safe for discharge. She may need PT/OT or even, inpatient rehab. I did speak with the patient, I spoke with case management. The on-call hospitalist was consulted. Luckily, no serious trauma found by today's ED workup. Prior/Outside records/notes reviewed: Discharge summary note from 05/22/2025 describing her presentation, hospital course and plan at discharge. ECG per my interpretation: Indication was falling. The ECG shows a normal sinus rhythm with a rate of 71. There is no ST elevation, no PVCs. The QTc is 480. Continuous Cardiac Monitoring per my interpretation: An order was placed for continuous cardiac monitoring. The monitor shows a rate of 73 with normal sinus rhythm. Imaging/x-ray results per my interpretation: Chest x-ray does not show any obvious rib injury, there is no pneumothorax, no pneumonia. Chronic Medical/Social conditions affecting care: Currently takes Plavix daily. Care/Management discussed with: Case management and the on-call hospitalist. Level of care consideration(s): After review of the information above and other included data: --I believe the patient requires escalation of care to admission Critical Care Note: I have personally spent 41 minutes of critical care time in the direct management of this patient. This includes bedside care, interpretation of diagnostic studies, and testing, discussion with consultants, patient, and family members, and other required patient management activities. This 41 minutes is in excess of all separately billable procedures. DISPOSITION: Admission Past Med/Surg History Problem List Frequent falls Thrombocytopenia (Acute) Abdominal wall contusion (Acute) Fall (Acute) Weakness (Acute) Closed lumbar vertebral fracture (Acute) Neck and shoulder pain (Acute) Diarrhea (Acute) Gastroenteritis and colitis, viral (Acute) Gastroenteritis Chronic idiopathic thrombocytopenia Diabetic gastroparesis Ambulatory dysfunction (Acute) Hypothyroidism History of CVA (cerebrovascular accident) x2 1990s History of pulmonary embolism Osteoporosis (Chronic) 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 (Chronic) Anxiety (Chronic) Depression (Chronic) Dyslipidemia (Chronic) DM type 2 (diabetes mellitus, type 2) (Chronic) insulin dependent Hypertension (Chronic) Medical History Back pain Thoracic compression fracture Multiple rib fractures Lumbar transverse process fracture DVT (deep venous thrombosis) Hypothyroidism Neuropathy Closed fracture of radial styloid Distal radius fracture, left Fibula fracture Cellulitis of leg, right Fracture of toe of right foot Multiple fractures of ribs of right side Fall Ambulatory dysfunction Status post fall Inability to ambulate due to hip Contusion of rib on left side Acute pain of left hip Closed left humeral fracture Intertrochanteric fracture of left femur Contusion of bone Hemarthrosis involving knee joint Hyperglycemia Accidental medication overdose Headache Vomiting Precordial chest pain Chest pain Degenerative disc disease, lumbar Lumbar radiculopathy SBO (small bowel obstruction) Vomiting Abdominal pain Hernia, umbilical Acute UTI Constipation Asymptomatic hypertensive urgency Suspected UTI Chronic generalized abdominal pain Irritable bowel syndrome with constipation Degenerative arthritis of lumbar spine Neck pain Other cervical disc degeneration, mid-cervical region, unspecified level Low back pain Hyperglycemia Hyperglycemia due to type 2 diabetes mellitus Dehydration Dizziness Headache Nausea Displaced intertrochanteric fracture of right femur, initial encounter for closed fracture Contusion of right chest wall Abrasion, right knee, initial encounter Closed fracture of right hip Acute hyperglycemia Ground-level fall Acute blood loss anemia Cellulitis of great toe of right foot Cellulitis of foot, right Surgical History History of oophorectomy S/P left knee arthroscopy H/O dilation and curettage H/O abdominal surgery small bowel repair lysis of adhesions History of hysterectomy History of cholecystectomy History of tubal ligation Family History Father Lung cancer Diabetes Sister Stomach cancer Social History Smoking Status: Never smoker Tobacco Type: Cigarettes Second Hand Exposure: No; Do You Dip or Chew Tobacco: No; Hx Alcohol Use: No Hx Substance Use: No Preferred Language: Malaysian Communication Ability: Effective Visual Impairment: No Limitations Hearing Ability: Normal 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 Beliefs That Will Affect Care: None marital status: Current Living Situation: Spouse Current Living Situation Comment: with How many Children do You have: 0 Feels Safe at Home: Yes Assistive Devices: Cane, Hospital Bed and Walker Allergies Allergies Allergy/AdvReac Type Severity Reaction Status Date / Time adhesive Allergy Intermediate RASH Verified 06/03/25 19:09 Iodinated Contrast Media Allergy Intermediate burning Verified 06/03/25 19:09 and aching in veins latex Allergy Intermediate RASH Verified 06/03/25 19:09 Penicillins Allergy Intermediate n/v, rash Verified 06/03/25 19:09 trolamine salicylate Allergy Hives Unverified 06/03/25 19:09 [From Aspercreme] Anesthetics - Amide Type - AdvReac Intermediate Vomiting Verified 06/03/25 19:09 Select A [Anesthetics - Amide Type] Anesthetics - Juju Type- AdvReac Intermediate Vomiting Verified 06/03/25 19:09 Parabens hepatitis B virus vaccine AdvReac Intermediate CHEST Verified 06/03/25 19:09 TIGHTNESS WITH 2ND DOSE. ketorolac AdvReac Intermediate ITCHING. Verified 06/03/25 19:09 tromethamine AdvReac Intermediate ITCHING. Verified 06/03/25 19:09 aspirin AdvReac Unknown CONTRAINDICATED---currently Verified 05/18/25 23:21 with gastric ulcer, per pt Home Meds Home Medications Medication Instructions Recorded Confirmed bupropion HCl 100 mg tablet 150 mg PO QAM 05/03/24 06/03/25 carvedilol 3.125 mg tablet 3.125 mg PO BID 05/03/24 06/03/25 clopidogrel 75 mg tablet 75 mg PO QAM 05/03/24 06/03/25 insulin glargine 100 unit/mL (3 26 unit subcut QAM 05/03/24 06/03/25 mL) subcutaneous pen (Lantus Solostar U-100 Insulin) metoclopramide HCl 5 mg tablet 5 mg PO QID PRN Nausea And Vomiting 05/03/24 06/03/25 nifedipine 30 mg tablet,extended 60 mg PO QAM 05/03/24 06/03/25 release omeprazole 20 mg capsule,delayed 20 mg PO DAILYBB 05/03/24 06/03/25 release sennosides 8.6 mg-docusate sodium 1 tab PO DAILY PRN Constipation 05/03/24 06/03/25 50 mg tablet (Senexon-S) spironolactone 25 mg tablet 25 mg PO QAM 05/03/24 06/03/25 cholecalciferol (vitamin D3) 25 25 mcg PO QAM 07/12/24 06/03/25 mcg (1,000 unit) chewable tablet (Vitamin D3) levothyroxine 137 mcg tablet 137 mcg PO DAILYBB 07/12/24 06/03/25 rosuvastatin 20 mg tablet 20 mg PO QAM 07/12/24 06/03/25 sertraline 100 mg tablet 200 mg PO QAM 07/12/24 06/03/25 gabapentin 400 mg capsule 400 mg PO TID 05/22/25 06/03/25 cyclobenzaprine 10 mg tablet 10 mg PO TID PRN Muscle Spasm 06/03/25 06/03/25 insulin aspart U-100 100 unit/mL 0 sliding scale dose subcut 06/03/25 06/03/25 (3 mL) subcutaneous pen (Novolog TIDWMEAL FlexPen U-100 Insulin aspart) Results & Data (ED) Vital Signs Vital Signs - 24 hr 06/03/25 17:20 06/03/25 18:18 06/03/25 18:27 Temperature 36.4 C L 36.7 C Temperature Source Temporal Artery Scan Oral Pulse Rate 100 H 73 Pulse Rate [Finger] 73 Respiratory Rate 20 20 Respiratory Effort / Characteristics Non-Labored Spontaneous Respiratory Depth Normal Respiratory Pattern Regular Blood Pressure 114/64 Blood Pressure [Right Arm] 119/60 Blood Pressure Mean 80 Blood Pressure Mean [Right Arm] 79 Blood Pressure Position Sitting Pulse Oximetry 98 91 Oxygen Delivery Method Room Air Nasal Cannula Oxygen Flow Rate 2 Sepsis Recent Fever Within 48 Hours No Sepsis New/Unexplained Change in Mental Status No Sepsis Action Taken by Nursing No Action Required 06/03/25 19:00 06/03/25 20:00 Temperature Temperature Source Pulse Rate Pulse Rate [Finger] 76 69 Respiratory Rate 17 17 Respiratory Effort / Characteristics Non-Labored Spontaneous Non-Labored Spontaneous Respiratory Depth Normal Normal Respiratory Pattern Regular Regular Blood Pressure Blood Pressure [Right Arm] 109/94 136/74 Blood Pressure Mean Blood Pressure Mean [Right Arm] 99 94 Blood Pressure Position Pulse Oximetry 91 94 Oxygen Delivery Method Nasal Cannula Nasal Cannula Oxygen Flow Rate 2 2 Sepsis Recent Fever Within 48 Hours Sepsis New/Unexplained Change in Mental Status Sepsis Action Taken by [facility] Medications Current Medication List: was personally reviewed by me Laboratory Data Attestation: I reviewed the patient's lab results. 06/03/25 17:38 06/03/25 17:38 Lab Results 06/03/25 06/03/25 06/03/25 Range/Units 17:38 17:42 18:54 WBC 6.83 (4.8-10.8) K/ul RBC 4.44 (4.20-5.40) M/uL Hgb 13.4 (12.0-16.0) g/dl POC Hgb 13.3 (12.0-16.0) g/dl Hct 38.9 (37.0-47.0) % POC Hct 39 (37-47) % MCV 87.6 (80.0-100.0) fL MCH 30.2 (25.0-34.0) pg MCHC 34.4 (32.0-36.0) g/dL RDW Std Deviation 39.6 (36.4-46.3) fL RDW Coeff of Dia 12.5 (11.5-14.5) % Plt Count 128 L (130-400) K/uL MPV 9.7 (9.4-12.4) fL Immature Gran % (Auto) 0.4 % Neut % (Auto) 72.1 % Lymph % (Auto) 19.8 % Mckinley % (Auto) 5.1 % Eos % (Auto) 1.9 % Baso % (Auto) 0.7 % Neut # (Auto) 4.92 (1.40-6.50) K/uL Lymph # (Auto) 1.35 (1.20-3.40) K/uL Mckinley # (Auto) 0.35 (0.11-0.59) K/uL Eos # (Auto) 0.13 (0.00-0.50) K/uL Baso # (Auto) 0.05 (0.00-0.20) K/uL Immature Gran # (Auto) 0.03 (0.01-0.20) K/uL PT 11.1 (9.0-12.0) Seconds INR 1.1 (0.9-1.1) APTT 22 (21-31) Seconds PTT Ratio 0.8 POC Sodium 139 (135-144) mmol/L Sodium 137 (136-145) mmol/L POC Potassium 4.7 (3.3-5.0) mmol/L Potassium 4.6 (3.5-5.1) mmol/L POC Chloride 105 (101-112) mmol/L Chloride 102 (98-107) mmol/L Carbon Dioxide 25 (21-32) mmol/L POC Total CO2 24 (24-31) mmol/L Anion Gap 10 (3-11) POC Anion Gap 16.0 (16-25) mmol/L POC BUN 37 H (7-18) mg/dl BUN 36 H (6-23) mg/dl Creatinine 1.12 (0.6-1.2) mg/dl POC Creatinine 1.2 (0.6-1.3) mg/dl Est Cr Clr Drug Dosing Not Reportable eGFR 53.23 BUN/Creatinine Ratio 32.1 H (10-20) Glucose 252 H (70-99(Fasting)) mg/dl POC Glucose (other) 252 H (70-99) mg/dl Calcium 9.6 (8.6-10.3) mg/dl POC Ioniz Calcium Kiran 1.20 (1.12-1.32) mmol/l Magnesium 2.0 (1.7-2.4) mg/dl Total Bilirubin 0.6 (0.2-1.0) mg/dl AST 52 H (13-39) U/L ALT 52 (7-52) U/L Alkaline Phosphatase 101 (34-104) U/L Total Creatine Kinase 34 (26-192) U/L Troponin I High Sens 5.3 (0-14) pg/ml Total Protein 7.9 (6.0-8.3) gm/dl Albumin 4.1 (3.4-5.0) gm/dl Globulin 3.8 (2.5-4.0) gm/dl Albumin/Globulin Ratio 1.1 (0.9-2) Lipase 38 (11-82) U/L TSH 1.881 (0.300-4.500) uIu/ml SARS-CoV-2 (PCR) NEGATIVE (Negative) Influenza Type A (PCR) Negative (Neg) Influenza Type B (PCR) Negative (Neg) RSV (RT-PCR) Negative (Neg) Administered Medications Discontinued Medications Diphenhydramine HCl (Diphenhydramine 50 Mg/Ml Vial) 12.5 mg IV NOW STA Stop: 06/03/25 17:42 Last Admin: 06/03/25 17:53 Dose: 12.5 mg Documented By: ROSANA Fentanyl Citrate (Fentanyl Citrate Pf 100 Mcg/2 Ml Vial) 50 mcg IV Q15M PRN PRN Reason: Pain Stop: 06/17/25 17:40 Last Admin: 06/03/25 19:48 Dose: 50 mcg Documented By: DIALLO Fentanyl Citrate (Fentanyl Citrate Pf 100 Mcg/2 Ml Vial) 50 mcg IV NOW STA Stop: 06/03/25 17:42 Last Admin: 06/03/25 18:09 Dose: 50 mcg Documented By: CAP Sodium Chloride (Nss) 500 mls @ 999 mls/hr IV .Q31M BRENDA Stop: 06/03/25 18:15 Last Infusion: 06/03/25 18:44 Dose: Infused Documented By: Admin: 06/03/25 18:09 Dose: 999 mls/hr Documented By: CAP Sodium Chloride (Nss) 500 mls @ 999 mls/hr IV .Q31M ONE Stop: 06/03/25 19:10 Last Infusion: 06/03/25 19:29 Dose: Infused Documented By: Admin: 06/03/25 18:49 Dose: 999 mls/hr Documented By: MARK Ioversol (Optiray 320 100ml) 93 ml IV ONCE ONE Stop: 06/03/25 17:59 Last Admin: 06/03/25 17:58 Dose: 93 ml Documented By: EAB Methylprednisolone (Methylprednisolone 125 Mg/2 Ml Vial) 60 mg IV NOW STA Stop: 06/03/25 17:42 Last Admin: 06/03/25 17:53 Dose: 60 mg Documented By: ROSANA Ondansetron HCl (Ondansetron Inj 2 Mg/Ml 2 Ml Vial) 4 mg IV NOW STA Stop: 06/03/25 17:42 Last Admin: 06/03/25 17:53 Dose: 4 mg Documented By: ROSANA Imaging Data Radiologist's Impression: Abdomen/Pelvis CT 06/03/25 17:41 EXAMINATION: CT of the chest, abdomen and pelvis, and the thoracic and lumbar spine, performed after the administration of IV contrast TECHNIQUE: Helical CT images from the lung apices through the symphysis pubis were obtained with contrast. Coronal and sagittal reformatted images were generated at a workstation for further assessment. Dose reduction techniques were achieved by using automatic exposure control and/or adjustment of mA and/or kV according to patient size and/or use of iterative reconstruction technique. COMPARISON: 04/02/2025 HISTORY: Trauma FINDINGS: Lines and tubes: None Mediastinum/Neck Base: No thyroid nodules. Central tracheobronchial tree is patent. Heart size is normal. No pericardial effusion. Normal thoracic vasculature. No thoracic lymphadenopathy. Lungs: No consolidation. No pleural effusion or pneumothorax. There is some subtle patchy ground glass areas in the subpleural regions of the left lower lobe. Liver: Nodular contour. No suspicious liver lesions. Portal veins appear patent. Gallbladder: Cholecystectomy Spleen: Mildly enlarged size. Pancreas: No suspicious pancreatic lesions. The pancreatic duct is not dilated. Adrenal glands: No adrenal nodules. Kidneys: No hydronephrosis or obstructing renal stones. Bladder / Pelvic organs: Unremarkable. Bowel: No bowel obstruction. No abnormal bowel wall thickening. The appendix is unremarkable. Lymph nodes: No retroperitoneal, mesenteric, or pelvic lymphadenopathy. Peritoneum / Retroperitoneum: No free fluid or air within the abdomen. Vessels: No infrarenal aortic aneurysm. Bones and soft tissues: Degenerative changes of the spine. No acute osseous normality. Bilateral proximal femoral fixation changes. Mild chronic left rib deformities. Multilevel superior endplate Schmorl's nodes throughout the lumbar spine. No fracture or traumatic subluxation of the thoracic or lumbar spine.. IMPRESSION: No traumatic abnormality of the chest, abdomen or pelvis, or the thoracic or lumbar spine. Some subtle, patchy ground glass densities in the periphery of the left lower lobe of the lung, appear infectious/inflammatory. Electronically signed by Gui Levy 06-03-2025 6:[address] 06/03/25 17:41 EXAMINATION: CT of the chest, abdomen and pelvis, and the thoracic and lumbar spine, performed after the administration of IV contrast TECHNIQUE: Helical CT images from the lung apices through the symphysis pubis were obtained with contrast. Coronal and sagittal reformatted images were generated at a workstation for further assessment. Dose reduction techniques were achieved by using automatic exposure control and/or adjustment of mA and/or kV according to patient size and/or use of iterative reconstruction technique. COMPARISON: 04/02/2025 HISTORY: Trauma FINDINGS: Lines and tubes: None Mediastinum/Neck Base: No thyroid nodules. Central tracheobronchial tree is patent. Heart size is normal. No pericardial effusion. Normal thoracic vasculature. No thoracic lymphadenopathy. Lungs: No consolidation. No pleural effusion or pneumothorax. There is some subtle patchy ground glass areas in the subpleural regions of the left lower lobe. Liver: Nodular contour. No suspicious liver lesions. Portal veins appear patent. Gallbladder: Cholecystectomy Spleen: Mildly enlarged size. Pancreas: No suspicious pancreatic lesions. The pancreatic duct is not dilated. Adrenal glands: No adrenal nodules. Kidneys: No hydronephrosis or obstructing renal stones. Bladder / Pelvic organs: Unremarkable. Bowel: No bowel obstruction. No abnormal bowel wall thickening. The appendix is unremarkable. Lymph nodes: No retroperitoneal, mesenteric, or pelvic lymphadenopathy. Peritoneum / Retroperitoneum: No free fluid or air within the abdomen. Vessels: No infrarenal aortic aneurysm. Bones and soft tissues: Degenerative changes of the spine. No acute osseous normality. Bilateral proximal femoral fixation changes. Mild chronic left rib deformities. Multilevel superior endplate Schmorl's nodes throughout the lumbar spine. No fracture or traumatic subluxation of the thoracic or lumbar spine.. IMPRESSION: No traumatic abnormality of the chest, abdomen or pelvis, or the thoracic or lumbar spine. Some subtle, patchy ground glass densities in the periphery of the left lower lobe of the lung, appear infectious/inflammatory. Electronically signed by Gui Levy 06-03-2025 6:30 PM Chest X-Ray 06/03/25 17:41 Chest radiograph, one view History: Trauma Comparison: None Findings: Single AP view of the chest performed. No focal consolidation or pleural effusion. No pneumothorax. The cardiomediastinal silhouette is within normal limits. Normal pulmonary vascularity. No evidence for lymphadenopathy. No visualized bony or soft tissue abnormality. Impression: Normal chest radiograph Electronically signed by Gui Levy 06-03-2025 6:[address] 06/03/25 17:41 EXAMINATION: CT of the chest, abdomen and pelvis, and the thoracic and lumbar spine, performed after the administration of IV contrast TECHNIQUE: Helical CT images from the lung apices through the symphysis pubis were obtained with contrast. Coronal and sagittal reformatted images were generated at a workstation for further assessment. Dose reduction techniques were achieved by using automatic exposure control and/or adjustment of mA and/or kV according to patient size and/or use of iterative reconstruction technique. COMPARISON: 04/02/2025 HISTORY: Trauma FINDINGS: Lines and tubes: None Mediastinum/Neck Base: No thyroid nodules. Central tracheobronchial tree is patent. Heart size is normal. No pericardial effusion. Normal thoracic vasculature. No thoracic lymphadenopathy. Lungs: No consolidation. No pleural effusion or pneumothorax. There is some subtle patchy ground glass areas in the subpleural regions of the left lower lobe. Liver: Nodular contour. No suspicious liver lesions. Portal veins appear patent. Gallbladder: Cholecystectomy Spleen: Mildly enlarged size. Pancreas: No suspicious pancreatic lesions. The pancreatic duct is not dilated. Adrenal glands: No adrenal nodules. Kidneys: No hydronephrosis or obstructing renal stones. Bladder / Pelvic organs: Unremarkable. Bowel: No bowel obstruction. No abnormal bowel wall thickening. The appendix is unremarkable. Lymph nodes: No retroperitoneal, mesenteric, or pelvic lymphadenopathy. Peritoneum / Retroperitoneum: No free fluid or air within the abdomen. Vessels: No infrarenal aortic aneurysm. Bones and soft tissues: Degenerative changes of the spine. No acute osseous normality. Bilateral proximal femoral fixation changes. Mild chronic left rib deformities. Multilevel superior endplate Schmorl's nodes throughout the lumbar spine. No fracture or traumatic subluxation of the thoracic or lumbar spine.. IMPRESSION: No traumatic abnormality of the chest, abdomen or pelvis, or the thoracic or lumbar spine. Some subtle, patchy ground glass densities in the periphery of the left lower lobe of the lung, appear infectious/inflammatory. Electronically signed by Gui Levy 06-03-2025 6:[address] 06/03/25 17:41 EXAMINATION: CT of the chest, abdomen and pelvis, and the thoracic and lumbar spine, performed after the administration of IV contrast TECHNIQUE: Helical CT images from the lung apices through the symphysis pubis were obtained with contrast. Coronal and sagittal reformatted images were generated at a workstation for further assessment. Dose reduction techniques were achieved by using automatic exposure control and/or adjustment of mA and/or kV according to patient size and/or use of iterative reconstruction technique. COMPARISON: 04/02/2025 HISTORY: Trauma FINDINGS: Lines and tubes: None Mediastinum/Neck Base: No thyroid nodules. Central tracheobronchial tree is patent. Heart size is normal. No pericardial effusion. Normal thoracic vasculature. No thoracic lymphadenopathy. Lungs: No consolidation. No pleural effusion or pneumothorax. There is some subtle patchy ground glass areas in the subpleural regions of the left lower lobe. Liver: Nodular contour. No suspicious liver lesions. Portal veins appear patent. Gallbladder: Cholecystectomy Spleen: Mildly enlarged size. Pancreas: No suspicious pancreatic lesions. The pancreatic duct is not dilated. Adrenal glands: No adrenal nodules. Kidneys: No hydronephrosis or obstructing renal stones. Bladder / Pelvic organs: Unremarkable. Bowel: No bowel obstruction. No abnormal bowel wall thickening. The appendix is unremarkable. Lymph nodes: No retroperitoneal, mesenteric, or pelvic lymphadenopathy. Peritoneum / Retroperitoneum: No free fluid or air within the abdomen. Vessels: No infrarenal aortic aneurysm. Bones and soft tissues: Degenerative changes of the spine. No acute osseous normality. Bilateral proximal femoral fixation changes. Mild chronic left rib deformities. Multilevel superior endplate Schmorl's nodes throughout the lumbar spine. No fracture or traumatic subluxation of the thoracic or lumbar spine.. IMPRESSION: No traumatic abnormality of the chest, abdomen or pelvis, or the thoracic or lumbar spine. Some subtle, patchy ground glass densities in the periphery of the left lower lobe of the lung, appear infectious/inflammatory. Electronically signed by Gui Levy 06-03-2025 6:[address] 06/03/25 17:42 CT cervical spine without IV contrast History: Trauma Comparison: None Technique: Using multidetector thin collimation helical acquisition technique, axial, coronal and sagittal CT images through the cervical spine were obtained without intravenous contrast. Dose reduction techniques were achieved by using automatic exposure control and/or adjustment of mA and/or kV according to patient size and/or use of iterative reconstruction technique. Findings: The cervical vertebrae are normally aligned. Straightened cervical lordosis. No acute fracture or subluxation. No prevertebral edema. Moderate to severe disc at loss at C5-6 and C6-7. Hypertrophic multilevel degenerative facet changes. No abnormality of the paraspinous soft tissues. Impression: No acute fracture or traumatic subluxation. Electronically signed by Gui Levy 06-03-2025 6:[address] 06/03/25 17:42 CT head without contrast History: Trauma Comparison: None Technique: Using multidetector thin collimation helical acquisition technique, axial, coronal and sagittal CT images from the skull base to the vertex were obtained without intravenous contrast. Dose reduction techniques were achieved by using automatic exposure control and/or adjustment of mA and/or kV according to patient size and/or use of iterative reconstruction technique. Findings: No intracranial hemorrhage, mass-effect, or midline shift. The ventricles are proportionate to the cerebral sulci. The markham to white matter differentiation of the cerebral hemispheres is preserved. The basal cisterns are patent. Mild cerebral atrophy and chronic microvascular ischemic changes. The visualized paranasal sinuses are clear. Mastoid air cells are clear. Impression: No acute intracranial pathology. Electronically signed by Gui Levy 06-03-2025 6:10 PM Discharge Plan Visit Data Chief Complaint: Fall Stated Complaint: FELL AND HIT HEAD ED Provider: Félix Nogueira Discharge Problem: Weakness, Fall, Abdominal wall contusion, Thrombocytopenia Patient Disposition: Admitted As Inpatient Condition: Fair Discharge Instructions Interventions: ED Discharge Assessment Last Done: 06/03/25 20:38 Discharge Problem: Fall Qualifiers: Encounter type: initial encounter Qualified Code(s): W19.XXXA - Unspecified fall, initial encounter Abdominal wall contusion Qualifiers: Encounter type: initial encounter Qualified Code(s): S30.11XA - Contusion of abdominal wall, initial encounter
[2025-06-03] MEDS: ONDANSETRON INJ 2 MG/ML 2 ML VIAL IV STA (17:53)
[2025-06-03] MEDS: diphenhydrAMINE 50 MG/ML VIAL IV STA (17:53)
[2025-06-03 17:58] LABS: Hematocrit (blood only) 38.9 % (37.0-47.0); Hemoglobin 13.4 g/dl (12.0-16.0); Immature Granulocytes # (auto) 0.03 K/uL (0.01-0.20); Immature Granulocytes % (auto) 0.4 %; Mean Corpuscular Hemoglobin 30.2 pg (25.0-34.0); Mean Corpuscular Volume 87.6 fL (80.0-100.0); Platelet Count 128 K/uL (130-400); RDW Standard Deviation 39.6 fL (36.4-46.3); Red Blood Count 4.44 M/uL (4.20-5.40); White Blood Count 6.83 K/ul (4.8-10.8)
[2025-06-03] MEDS: OPTIRAY 320 100ml IV ONE (17:58)
[2025-06-03] MEDS: SODIUM CHLORIDE 0.9% 500 ML IV SCH (18:09)
--- NOTE | 2025-06-03 18:11 | CT Scan Report ---
CT head without contrast History: Trauma Comparison: None Technique: Using multidetector thin collimation helical acquisition technique, axial, coronal and sagittal CT images from the skull base to the vertex were obtained without intravenous contrast. Dose reduction techniques were achieved by using automatic exposure control and/or adjustment of mA and/or kV according to patient size and/or use of iterative reconstruction technique. Findings: No intracranial hemorrhage, mass-effect, or midline shift. The ventricles are proportionate to the cerebral sulci. The markham to white matter differentiation of the cerebral hemispheres is preserved. The basal cisterns are patent. Mild cerebral atrophy and chronic microvascular ischemic changes. The visualized paranasal sinuses are clear. Mastoid air cells are clear. Impression: No acute intracranial pathology. Electronically signed by Gui Levy 06-03-2025 6:10 PM
[2025-06-03 18:15] LABS: Alanine Aminotransferase 52 U/L (7-52); Albumin Globulin Ratio 1.1 (0.9-2); Albumin Level 4.1 gm/dl (3.4-5.0); Alkaline Phosphatase 101 U/L (34-104); Anion Gap 10 (3-11); Bilirubin,Total 0.6 mg/dl (0.2-1.0); Blood Urea Nitrogen 36 mg/dl (6-23); Calcium 9.6 mg/dl (8.6-10.3); Carbon Dioxide 25 mmol/L (21-32); Chloride 102 mmol/L (98-107); Creatine Kinase 34 U/L (26-192); Globulin 3.8 gm/dl (2.5-4.0); Glucose 252 mg/dl (70-99(Fasting)); Lipase 38 U/L (11-82); Magnesium 2.0 mg/dl (1.7-2.4); Potassium 4.6 mmol/L (3.5-5.1); Sodium 137 mmol/L (136-145); Total Protein 7.9 gm/dl (6.0-8.3)
[2025-06-03 18:29] LABS: INR 1.1 (0.9-1.1); Partial Thromboplastin Time 22 Seconds (21-31); Prothrombin Time 11.1 Seconds (9.0-12.0)
[2025-06-03 18:30] LABS: Thyroid Stimulating Hormone 1.881 uIu/ml (0.300-4.500)
--- NOTE | 2025-06-03 18:31 | CT Scan Report ---
EXAMINATION: CT of the chest, abdomen and pelvis, and the thoracic and lumbar spine, performed after the administration of IV contrast TECHNIQUE: Helical CT images from the lung apices through the symphysis pubis were obtained with contrast. Coronal and sagittal reformatted images were generated at a workstation for further assessment. Dose reduction techniques were achieved by using automatic exposure control and/or adjustment of mA and/or kV according to patient size and/or use of iterative reconstruction technique. COMPARISON: 04/02/2025 HISTORY: Trauma FINDINGS: Lines and tubes: None Mediastinum/Neck Base: No thyroid nodules. Central tracheobronchial tree is patent. Heart size is normal. No pericardial effusion. Normal thoracic vasculature. No thoracic lymphadenopathy. Lungs: No consolidation. No pleural effusion or pneumothorax. There is some subtle patchy ground glass areas in the subpleural regions of the left lower lobe. Liver: Nodular contour. No suspicious liver lesions. Portal veins appear patent. Gallbladder: Cholecystectomy Spleen: Mildly enlarged size. Pancreas: No suspicious pancreatic lesions. The pancreatic duct is not dilated. Adrenal glands: No adrenal nodules. Kidneys: No hydronephrosis or obstructing renal stones. Bladder / Pelvic organs: Unremarkable. Bowel: No bowel obstruction. No abnormal bowel wall thickening. The appendix is unremarkable. Lymph nodes: No retroperitoneal, mesenteric, or pelvic lymphadenopathy. Peritoneum / Retroperitoneum: No free fluid or air within the abdomen. Vessels: No infrarenal aortic aneurysm. Bones and soft tissues: Degenerative changes of the spine. No acute osseous normality. Bilateral proximal femoral fixation changes. Mild chronic left rib deformities. Multilevel superior endplate Schmorl's nodes throughout the lumbar spine. No fracture or traumatic subluxation of the thoracic or lumbar spine.. IMPRESSION: No traumatic abnormality of the chest, abdomen or pelvis, or the thoracic or lumbar spine. Some subtle, patchy ground glass densities in the periphery of the left lower lobe of the lung, appear infectious/inflammatory. Electronically signed by Gui Levy 06-03-2025 6:30 PM
--- NOTE | 2025-06-03 18:32 | CT Scan Report ---
CT cervical spine without IV contrast History: Trauma Comparison: None Technique: Using multidetector thin collimation helical acquisition technique, axial, coronal and sagittal CT images through the cervical spine were obtained without intravenous contrast. Dose reduction techniques were achieved by using automatic exposure control and/or adjustment of mA and/or kV according to patient size and/or use of iterative reconstruction technique. Findings: The cervical vertebrae are normally aligned. Straightened cervical lordosis. No acute fracture or subluxation. No prevertebral edema. Moderate to severe disc at loss at C5-6 and C6-7. Hypertrophic multilevel degenerative facet changes. No abnormality of the paraspinous soft tissues. Impression: No acute fracture or traumatic subluxation. Electronically signed by Gui Levy 06-03-2025 6:32 PM
--- NOTE | 2025-06-03 18:32 | XRay Report ---
Chest radiograph, one view History: Trauma Comparison: None Findings: Single AP view of the chest performed. No focal consolidation or pleural effusion. No pneumothorax. The cardiomediastinal silhouette is within normal limits. Normal pulmonary vascularity. No evidence for lymphadenopathy. No visualized bony or soft tissue abnormality. Impression: Normal chest radiograph Electronically signed by Gui Levy 06-03-2025 6:32 PM
[2025-06-03] MEDS: SODIUM CHLORIDE 0.9% 500 ML IV ONE (18:49)
[2025-06-03 19:40] LABS: Influenza A virus by PCR Negative (Neg); Influenza B virus by PCR Negative (Neg); SARS CoV2 RNA(COVID-19) Ceph NEGATIVE (Negative)
[2025-06-03] MEDS ORDERED: ACETAMINOPHEN 325 MG TAB PO PRN (20:37)
[2025-06-03] MEDS ORDERED: DEXTROSE 50% 50 ML SYRINGE IV PRN (20:37)
[2025-06-03] MEDS ORDERED: CYCLOBENZAPRINE HCL 10 MG TAB PO PRN (20:37)
[2025-06-03] MEDS ORDERED: GLUCOSE 10 TAB/TUBE PO PRN (20:37)
[2025-06-03] MEDS ORDERED: GLUCAGON FOR INJ 1 MG VIAL SQ PRN (20:37)
[2025-06-03] MEDS ORDERED: GLUCOSE 40% GEL 15 GM TUBE PO PRN (20:37)
[2025-06-03] MEDS ORDERED: CARBOHYDRATES FOR HYPOGLYCEMIA PO PRN (20:37)
[2025-06-03] MEDS ORDERED: POLYETHYLENE (MIRALAX) 17 GM PACK PO PRN (20:37)
[2025-06-03] MEDS ORDERED: DOCUSATE SODIUM/SENNA 50/8.6MG TAB PO PRN (20:37)
--- NOTE | 2025-06-03 20:51 | History & Physical Report ---
Date of Service June 03, 2025 Assessment & Plan (1) Frequent falls: Plan: 70-year-old female with past medical history significant for type 2 diabetes, diabetic gastroparesis, dyslipidemia, hypothyroidism, diabetic polyneuropathy, obstructive sleep apnea on CPAP, portal hypertension, CVA, hypertension, grade 1 diastolic dysfunction, cirrhosis of liver with ascites, female stress incontinence, general osteoarthritis, osteoporosis, thrombocytopenia, depress ion, anxiety, intention tremor, history of PE, history of traumatic fracture who lives at home and ambulates with rollator walker comes with frequent falls. Patient says her is mostly out of the house and she is alone. When she falls down it is very hard for her to get up. Sometimes she lays on the floor for a long time. She think she has bruises on her abdomen because of the falls. Recently she fell in her garage on the concrete and hit her head and felt like she saw stars. She has headache and back pain from the falls. Denies loss of consciousness. Vision is okay. No earache. No runny nose or sore throat. No cough. No fevers. She has difficulty swallowing meats. Denies any chest pain or shortness of breath. Last couple of days she is nauseous. No abdominal pain. She is alternating with constipation and diarrhea. Denies blood in the stools. Micturating okay. Hemodynamics are okay. Frequent falls Ambulates with rollator walker Imaging studies no acute findings except for possible pneumonia PT OT Will follow UA Monitor in the hospital Possible pneumonia On CT chest Patient asymptomatic Will empirically treat with azithromycin History of CVA On Plavix and statin Diabetes Continue home long-acting insulin Sliding scale Will monitor Hypertension On Coreg, nifedipine, Aldactone Will monitor History of liver cirrhosis Nonalcoholic fatty liver disease On Aldactone History of anemia Hemoglobin 13.4 today Will monitor Depression and anxiety On Zoloft and bupropion Hypothyroidism On Synthyroid Hyperlipidemia On statin GERD On omeprazole can change to Protonix as patient is on Plavix Thrombocytopenia Platelets 128 Will follow labs Obstructive sleep apnea CPAP nightly DVT prophylaxis Heparin subcu Will monitor platelets Disposition Medical floor Full code. History of Present Illness Chief Complaint: Frequent falls Primary Care Provider: Adria Hilliard MD 70-year-old female with past medical history significant for type 2 diabetes, diabetic gastroparesis, dyslipidemia, hypothyroidism, diabetic polyneuropathy, obstructive sleep apnea on CPAP, portal hypertension, CVA, hypertension, grade 1 diastolic dysfunction, cirrhosis of liver with ascites, female stress inconti nence, general osteoarthritis, osteoporosis, thrombocytopenia, depression, anxiety, intention tremor, history of PE, history of traumatic fracture who lives at home and ambulates with rollator walker comes with frequent falls. Patient says her is mostly out of the house and she is alone. When she falls down it is very hard for her to get up. Sometimes she lays on the floor for a long time. She think she has bruises on her abdomen because of the falls. Recently she fell in her garage on the concrete and hit her head and felt like she saw stars. She has headache and back pain from the falls. Denies loss of consciousness. Vision is okay. No earache. No runny nose or sore throat. No cough. No fevers. She has difficulty swallowing meats. Denies any chest pain or shortness of breath. Last couple of days she is nauseous. No abdominal pain. She is alternating with constipation and diarrhea. Denies blood in the stools. Micturating okay. Hemodynamics are okay. Past medical history. As mentioned above. Past surgical history. Small bowel repair. Abdominal surgery adhesions removed. Biopsy of left breast benign mass. Breast lesion excision. Complex cataract surgery. Colonoscopy. Colonoscopy with biopsy. Dilatation curettage. Knee arthroscopy. Laparoscopic surgical lysis of adhesions. Laparoscopic biopsy. Ligation of oviduct. Partial hysterectomy. Removal of both ovaries. Total abdominal hysterectomy with removal of tubes. Social history. . No smoking. Alcohol daily. No drug use. Family history. Father had lung cancer. Diabetes. Sister had stomach cancer. Aunt had diabetes. Allergies Allergy/AdvReac Type Severity Reaction Status Date / Time adhesive Allergy Intermediate RASH Verified 06/03/25 19:09 Iodinated Contrast Media Allergy Intermediate burning Verified 06/03/25 19:09 and aching in veins latex Allergy Intermediate RASH Verified 06/03/25 19:09 Penicillins Allergy Intermediate n/v, rash Verified 06/03/25 19:09 trolamine salicylate Allergy Hives Unverified 06/03/25 19:09 [From Aspercreme] Anesthetics - Amide Type - AdvReac Intermediate Vomiting Verified 06/03/25 19:09 Select A [Anesthetics - Amide Type] Anesthetics - Juju Type- AdvReac Intermediate Vomiting Verified 06/03/25 19:09 Parabens hepatitis B virus vaccine AdvReac Intermediate CHEST Verified 06/03/25 19:09 TIGHTNESS WITH 2ND DOSE. ketorolac AdvReac Intermediate ITCHING. Verified 06/03/25 19:09 tromethamine AdvReac Intermediate ITCHING. Verified 06/03/25 19:09 aspirin AdvReac Unknown CONTRAINDICATED---currently Verified 05/18/25 23:21 with gastric ulcer, per pt Home Medications Medication Instructions Recorded Confirmed Type bupropion HCl 100 mg tablet 150 mg PO QAM 05/03/24 06/03/25 History carvedilol 3.125 mg tablet 3.125 mg PO BID 05/03/24 06/03/25 History clopidogrel 75 mg tablet 75 mg PO QAM 05/03/24 06/03/25 History insulin glargine 100 unit/mL (3 26 unit subcut QAM 05/03/24 06/03/25 History mL) subcutaneous pen (Lantus Solostar U-100 Insulin) metoclopramide HCl 5 mg tablet 5 mg PO QID PRN Nausea And Vomiting 05/03/24 06/03/25 History nifedipine 30 mg tablet,extended 60 mg PO QAM 05/03/24 06/03/25 History release omeprazole 20 mg capsule,delayed 20 mg PO DAILYBB 05/03/24 06/03/25 History release sennosides 8.6 mg-docusate sodium 1 tab PO DAILY PRN Constipation 05/03/24 06/03/25 History 50 mg tablet (Senexon-S) spironolactone 25 mg tablet 25 mg PO QAM 05/03/24 06/03/25 History cholecalciferol (vitamin D3) 25 25 mcg PO QAM 07/12/24 06/03/25 History mcg (1,000 unit) chewable tablet (Vitamin D3) levothyroxine 137 mcg tablet 137 mcg PO DAILYBB 07/12/24 06/03/25 History rosuvastatin 20 mg tablet 20 mg PO QAM 07/12/24 06/03/25 History sertraline 100 mg tablet 200 mg PO QAM 07/12/24 06/03/25 History gabapentin 400 mg capsule 400 mg PO TID 05/22/25 06/03/25 History cyclobenzaprine 10 mg tablet 10 mg PO TID PRN Muscle Spasm 06/03/25 06/03/25 History insulin aspart U-100 100 unit/mL 0 sliding scale dose subcut 06/03/25 06/03/25 History (3 mL) subcutaneous pen (Novolog TIDWMEAL FlexPen U-100 Insulin aspart) Past Med/Surg History Problem List (Updated 06/04/25 @ 00:04 by Zaynab Rogers) Frequent falls Thrombocytopenia (Acute) Abdominal wall contusion (Acute) Fall (Acute) Weakness (Acute) Closed lumbar vertebral fracture (Acute) Neck and shoulder pain (Acute) Diarrhea (Acute) Gastroenteritis and colitis, viral (Acute) Gastroenteritis Chronic idiopathic thrombocytopenia Diabetic gastroparesis Ambulatory dysfunction (Acute) Hypothyroidism History of CVA (cerebrovascular accident) x2 History of pulmonary embolism Osteoporosis (Chronic) 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 (Chronic) Anxiety (Chronic) Depression (Chronic) Dyslipidemia (Chronic) DM type 2 (diabetes mellitus, type 2) (Chronic) insulin dependent Hypertension (Chronic) Medical History Back pain Thoracic compression fracture Multiple rib fractures Lumbar transverse process fracture DVT (deep venous thrombosis) Hypothyroidism Neuropathy Closed fracture of radial styloid Distal radius fracture, left Fibula fracture Cellulitis of leg, right Fracture of toe of right foot Multiple fractures of ribs of right side Fall Ambulatory dysfunction Status post fall Inability to ambulate due to hip Contusion of rib on left side Acute pain of left hip Closed left humeral fracture Intertrochanteric fracture of left femur Contusion of bone Hemarthrosis involving knee joint Hyperglycemia Accidental medication overdose Headache Vomiting Precordial chest pain Chest pain Degenerative disc disease, lumbar Lumbar radiculopathy SBO (small bowel obstruction) Vomiting Abdominal pain Hernia, umbilical Acute UTI Constipation Asymptomatic hypertensive urgency Suspected UTI Chronic generalized abdominal pain Irritable bowel syndrome with constipation Degenerative arthritis of lumbar spine Neck pain Other cervical disc degeneration, mid-cervical region, unspecified level Low back pain Hyperglycemia Hyperglycemia due to type 2 diabetes mellitus Dehydration Dizziness Headache Nausea Displaced intertrochanteric fracture of right femur, initial encounter for closed fracture Contusion of right chest wall Abrasion, right knee, initial encounter Closed fracture of right hip Acute hyperglycemia Ground-level fall Acute blood loss anemia Cellulitis of great toe of right foot Cellulitis of foot, right Surgical History History of oophorectomy S/P left knee arthroscopy H/O dilation and curettage H/O abdominal surgery small bowel repair lysis of adhesions History of hysterectomy History of cholecystectomy History of tubal ligation Family History Father Lung cancer Diabetes Sister Stomach cancer Social History Smoking Status: Unknown if ever smoked Tobacco Type: Cigarettes Second Hand Exposure: No; Do You Dip or Chew Tobacco: No; Hx Alcohol Use: No Hx Substance Use: No Preferred Language: Moldovan Communication Ability: Effective Visual Impairment: No Limitations Hearing Ability: Normal [employer]ishing [employer] Technician Required: No Beliefs That Will Affect Care: None marital status: Current Living Situation: Spouse Current Living Situation Comment: with How many Children do You have: 0 Feels Safe at Home: Yes Assistive Devices: None Review of Systems Review of Systems: All systems reviewed & are unremarkable except as noted in HPI & below Physical Exam Physical Exam: General- Not in distress Head- atraumatic Eyes- PERRL. ENT- oropharynx clear Neck- supple, no JVD. Lungs- clear to auscultation no wheezing or crackles Heart- regular rhythm; no murmur, no gallop. Abdomen- normal bowel sounds, soft, nontender, no distension Extremities- no pretibial edema, no erythema seen Neuro- alert, oriented PERRL, no facial palsy; no dysarthria; moves extremities Results & Data Results & Data Vital Signs (Past 12 Hours) Vital Signs Temp Pulse Pulse Resp BP BP Pulse Ox 06/03/25 19:00 76 17 109/94 91 06/03/25 18:27 36.7 C 73 20 119/60 91 06/03/25 18:18 73 06/03/25 17:20 36.4 C L 100 H 20 114/64 98 O2 Del Method O2 Flow Rate 06/03/25 19:00 Nasal Cannula 2 06/03/25 18:27 Nasal Cannula 2 06/03/25 18:18 06/03/25 17:20 Room Air Diagnostic Findings Laboratory Results WBC 6.83 K/ul (4.8-10.8) 06/03/25 17:38 RBC 4.44 M/uL (4.20-5.40) 06/03/25 17:38 Hgb 13.4 g/dl (12.0-16.0) 06/03/25 17:38 POC Hgb 13.3 g/dl (12.0-16.0) 06/03/25 17:42 Hct 38.9 % (37.0-47.0) 06/03/25 17: POC Hct 39 % (37-47) 06/03/25 17: MCV 87.6 fL (80.0-100.0) 06/03/25 17: MCH 30.2 pg (25.0-34.0) 06/03/25 17: MCHC 34.4 g/dL (32.0-36.0) 06/03/25: RDW Std Deviation 39.6 fL (36.4-46.3) 06/03/25: RDW Coeff of Dia 12.5 % (11.5-14.5) 06/03/25 17: Plt Count 128 K/uL (130-400) L 06/03/25 17: MPV 9.7 fL (9.4-12.4) 06/03/25 17: Immature Gran % (Auto) 0.4 % 06/03/25 17: Neut % (Auto) 72.1 % 06/03/25 17:38 Lymph % (Auto) 19.8 % 06/03/25 17:38 Throckmorton % (Auto) 5.1 % 06/03/25 17:38 Eos % (Auto) 1.9 % 06/03/25 17: Baso % (Auto) 0.7 % 06/03/25 17: Neut # (Auto) 4.92 K/uL (1.40-6.50) 06/03/25 17:38 Lymph # (Auto) 1.35 K/uL (1.20-3.40) 06/03/25 17:38 Throckmorton # (Auto) 0.35 K/uL (0.11-0.59) 06/03/25 17:38 Eos # (Auto) 0.13 K/uL (0.00-0.50) 06/03/25 17:38 Baso # (Auto) 0.05 K/uL (0.00-0.20) 06/03/25 17:38 Immature Gran # (Auto) 0.03 K/uL (0.01-0.20) 06/03/25 17:38 PT 11.1 Seconds (9.0-12.0) 06/03/25 17:38 INR 1.1 (0.9-1.1) 06/03/25 17:38 APTT 22 Seconds (21-31) 06/03/25 17:38 PTT Ratio 0.8 06/03/25 17:38 POC Sodium 139 mmol/L (135-144) 06/03/25 17:42 Sodium 137 mmol/L (136-145) 06/03/25 17:38 POC Potassium 4.7 mmol/L (3.3-5.0) 06/03/25 17:42 Potassium 4.6 mmol/L (3.5-5.1) 06/03/25 17:38 POC Chloride 105 mmol/L (101-112) 06/03/25 17:42 Chloride 102 mmol/L (98-107) 06/03/25 17:38 Carbon Dioxide 25 mmol/L (21-32) 06/03/25 17:38 POC Total CO2 24 mmol/L (24-31) 06/03/25 17:42 Anion Gap 10 (3-11) 06/03/25 17:38 POC Anion Gap 16.0 mmol/L (16-25) 06/03/25 17:42 POC BUN 37 mg/dl (7-18) H 06/03/25 17:42 BUN 36 mg/dl (6-23) H 06/03/25 17:38 Creatinine 1.12 mg/dl (0.6-1.2) 06/03/25 17:38 POC Creatinine 1.2 mg/dl (0.6-1.3) 06/03/25 17:42 Est Cr Clr Drug Dosing Not Reportable 06/03/25 17:38 eGFR 53.23 06/03/25 17:38 BUN/Creatinine Ratio 32.1 (10-20) H 06/03/25 17:38 Glucose 252 mg/dl (70-99(Fasting)) H 06/03/25 17:38 POC Glucose (other) 252 mg/dl (70-99) H 06/03/25 17:42 Calcium 9.6 mg/dl (8.6-10.3) 06/03/25 17:38 POC Ioniz Calcium Kiran 1.20 mmol/l (1.12-1.32) 06/03/25 17:42 Magnesium 2.0 mg/dl (1.7-2.4) 06/03/25 17:38 Total Bilirubin 0.6 mg/dl (0.2-1.0) 06/03/25 17:38 AST 52 U/L (13-39) H 06/03/25 17:38 ALT 52 U/L (7-52) 06/03/25 17:38 Alkaline Phosphatase 101 U/L (34-104) 06/03/25 17:38 Total Creatine Kinase 34 U/L (26-192) 06/03/25 17:38 Troponin I High Sens 5.3 pg/ml (0-14) 06/03/25 17:38 Total Protein 7.9 gm/dl (6.0-8.3) 06/03/25 17:38 Albumin 4.1 gm/dl (3.4-5.0) 06/03/25 17:38 Globulin 3.8 gm/dl (2.5-4.0) 06/03/25 17:38 Albumin/Globulin Ratio 1.1 (0.9-2) 06/03/25 17:38 Lipase 38 U/L (11-82) 06/03/25 17:38 TSH 1.881 uIu/ml (0.300-4.500) 06/03/25 17:38 SARS-CoV-2 (PCR) NEGATIVE (Negative) 06/03/25 18:54 Influenza Type A (PCR) Negative (Neg) 06/03/25 18:54 Influenza Type B (PCR) Negative (Neg) 06/03/25 18:54 RSV (RT-PCR) Negative (Neg) 06/03/25 18:54 Impressions Abdomen/Pelvis CT 06/03/25 17:41 EXAMINATION: CT of the chest, abdomen and pelvis, and the thoracic and lumbar spine, performed after the administration of IV contrast TECHNIQUE: Helical CT images from the lung apices through the symphysis pubis were obtained with contrast. Coronal and sagittal reformatted images were generated at a workstation for further assessment. Dose reduction techniques were achieved by using automatic exposure control and/or adjustment of mA and/or kV according to patient size and/or use of iterative reconstruction technique. COMPARISON: 04/02/2025 HISTORY: Trauma FINDINGS: Lines and tubes: None Mediastinum/Neck Base: No thyroid nodules. Central tracheobronchial tree is patent. Heart size is normal. No pericardial effusion. Normal thoracic vasculature. No thoracic lymphadenopathy. Lungs: No consolidation. No pleural effusion or pneumothorax. There is some subtle patchy ground glass areas in the subpleural regions of the left lower lobe. Liver: Nodular contour. No suspicious liver lesions. Portal veins appear patent. Gallbladder: Cholecystectomy Spleen: Mildly enlarged size. Pancreas: No suspicious pancreatic lesions. The pancreatic duct is not dilated. Adrenal glands: No adrenal nodules. Kidneys: No hydronephrosis or obstructing renal stones. Bladder / Pelvic organs: Unremarkable. Bowel: No bowel obstruction. No abnormal bowel wall thickening. The appendix is unremarkable. Lymph nodes: No retroperitoneal, mesenteric, or pelvic lymphadenopathy. Peritoneum / Retroperitoneum: No free fluid or air within the abdomen. Vessels: No infrarenal aortic aneurysm. Bones and soft tissues: Degenerative changes of the spine. No acute osseous normality. Bilateral proximal femoral fixation changes. Mild chronic left rib deformities. Multilevel superior endplate Schmorl's nodes throughout the lumbar spine. No fracture or traumatic subluxation of the thoracic or lumbar spine.. IMPRESSION: No traumatic abnormality of the chest, abdomen or pelvis, or the thoracic or lumbar spine. Some subtle, patchy ground glass densities in the periphery of the left lower lobe of the lung, appear infectious/inflammatory. Electronically signed by Gui Levy 06-03-2025 6:[address] 06/03/25 17:41 EXAMINATION: CT of the chest, abdomen and pelvis, and the thoracic and lumbar spine, performed after the administration of IV contrast TECHNIQUE: Helical CT images from the lung apices through the symphysis pubis were obtained with contrast. Coronal and sagittal reformatted images were generated at a workstation for further assessment. Dose reduction techniques were achieved by using automatic exposure control and/or adjustment of mA and/or kV according to patient size and/or use of iterative reconstruction technique. COMPARISON: 04/02/2025 HISTORY: Trauma FINDINGS: Lines and tubes: None Mediastinum/Neck Base: No thyroid nodules. Central tracheobronchial tree is patent. Heart size is normal. No pericardial effusion. Normal thoracic vasculature. No thoracic lymphadenopathy. Lungs: No consolidation. No pleural effusion or pneumothorax. There is some subtle patchy ground glass areas in the subpleural regions of the left lower lobe. Liver: Nodular contour. No suspicious liver lesions. Portal veins appear patent. Gallbladder: Cholecystectomy Spleen: Mildly enlarged size. Pancreas: No suspicious pancreatic lesions. The pancreatic duct is not dilated. Adrenal glands: No adrenal nodules. Kidneys: No hydronephrosis or obstructing renal stones. Bladder / Pelvic organs: Unremarkable. Bowel: No bowel obstruction. No abnormal bowel wall thickening. The appendix is unremarkable. Lymph nodes: No retroperitoneal, mesenteric, or pelvic lymphadenopathy. Peritoneum / Retroperitoneum: No free fluid or air within the abdomen. Vessels: No infrarenal aortic aneurysm. Bones and soft tissues: Degenerative changes of the spine. No acute osseous normality. Bilateral proximal femoral fixation changes. Mild chronic left rib deformities. Multilevel superior endplate Schmorl's nodes throughout the lumbar spine. No fracture or traumatic subluxation of the thoracic or lumbar spine.. IMPRESSION: No traumatic abnormality of the chest, abdomen or pelvis, or the thoracic or lumbar spine. Some subtle, patchy ground glass densities in the periphery of the left lower lobe of the lung, appear infectious/inflammatory. Electronically signed by Gui Levy 06-03-2025 6:30 PM Chest X-Ray 06/03/25 17:41 Chest radiograph, one view History: Trauma Comparison: None Findings: Single AP view of the chest performed. No focal consolidation or pleural effusion. No pneumothorax. The cardiomediastinal silhouette is within normal limits. Normal pulmonary vascularity. No evidence for lymphadenopathy. No visualized bony or soft tissue abnormality. Impression: Normal chest radiograph Electronically signed by Gui Levy 06-03-2025 6:[address] 06/03/25 17:41 EXAMINATION: CT of the chest, abdomen and pelvis, and the thoracic and lumbar spine, performed after the administration of IV contrast TECHNIQUE: Helical CT images from the lung apices through the symphysis pubis were obtained with contrast. Coronal and sagittal reformatted images were generated at a workstation for further assessment. Dose reduction techniques were achieved by using automatic exposure control and/or adjustment of mA and/or kV according to patient size and/or use of iterative reconstruction technique. COMPARISON: 04/02/2025 HISTORY: Trauma FINDINGS: Lines and tubes: None Mediastinum/Neck Base: No thyroid nodules. Central tracheobronchial tree is patent. Heart size is normal. No pericardial effusion. Normal thoracic vasculature. No thoracic lymphadenopathy. Lungs: No consolidation. No pleural effusion or pneumothorax. There is some subtle patchy ground glass areas in the subpleural regions of the left lower lobe. Liver: Nodular contour. No suspicious liver lesions. Portal veins appear patent. Gallbladder: Cholecystectomy Spleen: Mildly enlarged size. Pancreas: No suspicious pancreatic lesions. The pancreatic duct is not dilated. Adrenal glands: No adrenal nodules. Kidneys: No hydronephrosis or obstructing renal stones. Bladder / Pelvic organs: Unremarkable. Bowel: No bowel obstruction. No abnormal bowel wall thickening. The appendix is unremarkable. Lymph nodes: No retroperitoneal, mesenteric, or pelvic lymphadenopathy. Peritoneum / Retroperitoneum: No free fluid or air within the abdomen. Vessels: No infrarenal aortic aneurysm. Bones and soft tissues: Degenerative changes of the spine. No acute osseous normality. Bilateral proximal femoral fixation changes. Mild chronic left rib deformities. Multilevel superior endplate Schmorl's nodes throughout the lumbar spine. No fracture or traumatic subluxation of the thoracic or lumbar spine.. IMPRESSION: No traumatic abnormality of the chest, abdomen or pelvis, or the thoracic or lumbar spine. Some subtle, patchy ground glass densities in the periphery of the left lower lobe of the lung, appear infectious/inflammatory. Electronically signed by Gui Levy 06-03-2025 6:[address] 06/03/25 17:41 EXAMINATION: CT of the chest, abdomen and pelvis, and the thoracic and lumbar spine, performed after the administration of IV contrast TECHNIQUE: Helical CT images from the lung apices through the symphysis pubis were obtained with contrast. Coronal and sagittal reformatted images were generated at a workstation for further assessment. Dose reduction techniques were achieved by using automatic exposure control and/or adjustment of mA and/or kV according to patient size and/or use of iterative reconstruction technique. COMPARISON: 04/02/2025 HISTORY: Trauma FINDINGS: Lines and tubes: None Mediastinum/Neck Base: No thyroid nodules. Central tracheobronchial tree is patent. Heart size is normal. No pericardial effusion. Normal thoracic vasculature. No thoracic lymphadenopathy. Lungs: No consolidation. No pleural effusion or pneumothorax. There is some subtle patchy ground glass areas in the subpleural regions of the left lower lobe. Liver: Nodular contour. No suspicious liver lesions. Portal veins appear patent. Gallbladder: Cholecystectomy Spleen: Mildly enlarged size. Pancreas: No suspicious pancreatic lesions. The pancreatic duct is not dilated. Adrenal glands: No adrenal nodules. Kidneys: No hydronephrosis or obstructing renal stones. Bladder / Pelvic organs: Unremarkable. Bowel: No bowel obstruction. No abnormal bowel wall thickening. The appendix is unremarkable. Lymph nodes: No retroperitoneal, mesenteric, or pelvic lymphadenopathy. Peritoneum / Retroperitoneum: No free fluid or air within the abdomen. Vessels: No infrarenal aortic aneurysm. Bones and soft tissues: Degenerative changes of the spine. No acute osseous normality. Bilateral proximal femoral fixation changes. Mild chronic left rib deformities. Multilevel superior endplate Schmorl's nodes throughout the lumbar spine. No fracture or traumatic subluxation of the thoracic or lumbar spine.. IMPRESSION: No traumatic abnormality of the chest, abdomen or pelvis, or the thoracic or lumbar spine. Some subtle, patchy ground glass densities in the periphery of the left lower lobe of the lung, appear infectious/inflammatory. Electronically signed by Gui Levy 06-03-2025 6:[address] 06/03/25 17:42 CT cervical spine without IV contrast History: Trauma Comparison: None Technique: Using multidetector thin collimation helical acquisition technique, axial, coronal and sagittal CT images through the cervical spine were obtained without intravenous contrast. Dose reduction techniques were achieved by using automatic exposure control and/or adjustment of mA and/or kV according to patient size and/or use of iterative reconstruction technique. Findings: The cervical vertebrae are normally aligned. Straightened cervical lordosis. No acute fracture or subluxation. No prevertebral edema. Moderate to severe disc at loss at C5-6 and C6-7. Hypertrophic multilevel degenerative facet changes. No abnormality of the paraspinous soft tissues. Impression: No acute fracture or traumatic subluxation. Electronically signed by Gui Levy 06-03-2025 6:[address] 06/03/25 17:42 CT head without contrast History: Trauma Comparison: None Technique: Using multidetector thin collimation helical acquisition technique, axial, coronal and sagittal CT images from the skull base to the vertex were obtained without intravenous contrast. Dose reduction techniques were achieved by using automatic exposure control and/or adjustment of mA and/or kV according to patient size and/or use of iterative reconstruction technique. Findings: No intracranial hemorrhage, mass-effect, or midline shift. The ventricles are proportionate to the cerebral sulci. The markham to white matter differentiation of the cerebral hemispheres is preserved. The basal cisterns are patent. Mild cerebral atrophy and chronic microvascular ischemic changes. The visualized paranasal sinuses are clear. Mastoid air cells are clear. Impression: No acute intracranial pathology. Electronically signed by Gui Levy 06-03-2025 6:10 PM ECG Additional Comments: ECG. Normal sinus rhythm with rate of 71. Nonspecific intraventricular conduction block. No significant change was found. QTc 480. Code Status & VTE Plan VTE Prophylaxis Plan VTE Prophylaxis will be ordered: Yes
[2025-06-03] MEDS ORDERED: INSULIN ASPART PER UNIT CHARGE SC STA (22:14)
[2025-06-03] MEDS: INSULIN ASPART PER UNIT CHARGE SC SCH (22:25)
[2025-06-03] MEDS: HEPARIN SOD 5,000 UNIT/0.5 ML VIAL SQ SCH (22:28)
[2025-06-03] MEDS: AZITHROMYCIN 250 MG TAB PO ONE (22:28)
[2025-06-03] MEDS: GABAPENTIN 400 MG CAP PO SCH (22:34)
[2025-06-04 00:35] LABS: Appearance Urine Clear (Clear); Bacteria Urine Automated None Seen (None Seen); Cast Urine Automated 0-2 /lpf (0-2); Epithelial Cell Urine Auto 0-2 /hpf (0-2); Glucose Urine UA 2+ (Negative); RBC Urine Automated 0-2 /hpf (0-2)
[2025-06-04 05:04] LABS: Hematocrit (blood only) 32.0 % (37.0-47.0); Hemoglobin 11.0 g/dl (12.0-16.0); Immature Granulocytes # (auto) 0.02 K/uL (0.01-0.20); Immature Granulocytes % (auto) 0.3 %; Mean Corpuscular Hemoglobin 30.2 pg (25.0-34.0); Mean Corpuscular Volume 87.9 fL (80.0-100.0); Platelet Count 93 K/uL (130-400); RDW Standard Deviation 39.8 fL (36.4-46.3); Red Blood Count 3.64 M/uL (4.20-5.40); White Blood Count 6.34 K/ul (4.8-10.8)
[2025-06-04] MEDS: HYDROmorphone INJ 0.5 MG/0.5 ML SYR IV STA (05:09)
[2025-06-04 05:20] LABS: Anion Gap 5.0 (3-11); Blood Urea Nitrogen 33.0 mg/dl (6-23); Carbon Dioxide 24.0 mmol/L (21-32); Chloride 104.0 mmol/L (98-107); Potassium 5.0 mmol/L (3.5-5.1); Sodium 133.0 mmol/L (136-145)
[2025-06-04 05:21] LABS: Calcium 8.8 mg/dl (8.6-10.3); Creatinine Clr Calc Pharmacy 50.9 ml/min; Glucose 223.0 mg/dl (70-99(Fasting)); Magnesium 1.9 mg/dl (1.7-2.4)
[2025-06-04] MEDS: LEVOTHYROXINE SODIUM 137 MCG TABLET PO SCH (06:14)
[2025-06-04] MEDS ORDERED: Nursing to Pharmacy Communication SCH (06:15)
[2025-06-04 07:28] LABS: Hemoglobin A1C 7.3 % (4.5-5.6)
[2025-06-04] MEDS: CLOPIDOGREL BISULFATE 75 MG TAB PO SCH (08:11)
[2025-06-04] MEDS: SERTRALINE HCL 100 MG TABLET PO SCH (08:11)
[2025-06-04] MEDS: SPIRONOLACTONE 25 MG TAB PO SCH (08:12)
[2025-06-04] MEDS: ROSUVASTATIN CALCIUM 20 MG TAB PO SCH (08:12)
[2025-06-04] MEDS: NIFEdipine EXTENDED REL 30 MG TABCR PO SCH (08:13)
[2025-06-04] MEDS: LANTUS PER UNIT CHARGE SC SCH (08:14)
[2025-06-04] MEDS: CHOLECALCIFEROL 25 MCG (1000 UNITS) TAB PO SCH (08:16)
[2025-06-04] MEDS: ACETAMINOPHEN 500 MG TAB PO SCH (08:49)
--- NOTE | 2025-06-04 11:59 | Hospitalist Progress Note ---
Date of Service June 04, 2025 Assessment & Plan (1) Frequent falls: Plan: 70-year-old female with past medical history significant for type 2 diabetes, diabetic gastroparesis, dyslipidemia, hypothyroidism, diabetic polyneuropathy, obstructive sleep apnea on CPAP, portal hypertension, CVA, hypertension, grade 1 diastolic dysfunction, cirrhosis of liver with ascites, female stress incontinence, general osteoarthritis, osteoporosis, thrombocytopenia, depress ion, anxiety, intention tremor, history of PE, history of traumatic fracture who lives at home and ambulates with rollator walker comes with frequent falls. Frequent falls Ambulates with rolling walker Imaging studies no acute findings except for possible pneumonia plan for PT OT; would like to go to rehab if approved Possible pneumonia On CT chest Patient asymptomatic Will empirically treat with azithromycin for 5 days History of CVA On Plavix and statin,continue Type 2 Diabetes Continue home long-acting insulin Sliding scale Will monitor Hypertension On Coreg, nifedipine, Aldactone-continue History of liver cirrhosis Nonalcoholic fatty liver disease On Aldactone-continue History of anemia- Hb at baseline;monitor Depression and anxiety On Zoloft and bupropion-continue Hypothyroidism On Synthyroid-continue Hyperlipidemia On statin-continue GERD On omeprazole can change to Protonix as patient is on Plavix- Thrombocytopenia Platelets 128 Will follow labs Obstructive sleep apnea CPAP nightly DVT prophylaxis Heparin subcu Will monitor platelets Disposition Medical floor Full code. Please note the above document was generated using voice recognition software. It may contain grammatical, syntax or spelling errors. Any formal questions or concerns about the content, text or information contained within the body of this dictation should be directly addressed to the provider for clarification Admission and Anticipated Discharge Date Admission Date: June 03, 2025 Subjective Patient seen and examined at bedside. Comfortable; not in distress. Denies fever, chills, chest pain, shortness of breath, abdominal pain or urinary symptoms. No significant overnight events Review of Systems Review of Systems: All systems reviewed & are unremarkable except as noted in Subjective Physical Exam Physical Exam: General- Not in distress Lungs- clear to auscultation no wheezing or crackles Heart- regular rhythm; no murmur, no gallop. Abdomen- normal bowel sounds, soft, nontender, no distension Extremities- no pretibial edema, no erythema seen Neuro- alert, oriented PERRL, no facial palsy; no dysarthria; moves extremities Results & Data Results & Data Vital Signs (Past 12 Hours) Vital Signs Pulse Pulse Resp BP BP Pulse Ox O2 Del Method 06/04/25 08:08 73 20 134/63 96 Nasal Cannula 06/04/25 06:00 114/62 06/04/25 06:00 67 19 114/62 95 Nasal Cannula 06/04/25 05:46 68 18 95 Nasal Cannula 06/04/25 05:45 67 16 85 L Room Air 06/04/25 05:09 69 18 93 Room Air 06/04/25 05:00 68 16 117/62 93 Room Air 06/04/25 04:00 72 15 130/69 95 Room Air 06/04/25 03:50 71 18 91 Room Air 06/04/25 03:12 72 19 137/72 91 Room Air 06/04/25 03:12 Room Air 06/04/25 02:22 72 19 131/66 90 Room Air 06/04/25 02:15 71 16 131/66 90 Room Air 06/04/25 00:15 71 19 140/70 90 Room Air O2 Flow Rate 06/04/25 08:08 2 06/04/25 06:00 06/04/25 06:00 2 06/04/25 05:46 2 06/04/25 05:45 06/04/25 05:09 06/04/25 05:00 06/04/25 04:00 06/04/25 03:50 06/04/25 03:12 06/04/25 03:12 06/04/25 02:22 06/04/25 02:15 06/04/25 00:15
[2025-06-04] MEDS: AZITHROMYCIN 250 MG TAB PO SCH (20:49)
--- NOTE | 2025-06-05 06:11 | Electrocardiogram Report ---
Test Reason : Blood Pressure : */* mmHG Vent. Rate : 71 BPM Atrial Rate : 71 BPM P-R Int : 174 ms QRS Dur : 142 ms QT Int : 442 ms P-R-T Axes : 44 28 36 degrees QTcB Int : 480 ms Normal sinus rhythm Right bundle branch block Minimal voltage criteria for LVH, may be normal variant ( Tao product ) Abnormal ECG When compared with ECG of 28-Apr-2025 19:07, No significant change was found Confirmed by Herrera Vasquez ([id number]) on 06/05/2025 6:10:43 AM Referred By: REFERRED SELF Confirmed By: Herrera Vasquez
--- NOTE | 2025-06-05 06:11 | Electrocardiogram Report ---
Test Reason : Blood Pressure : */* mmHG Vent. Rate : 70 BPM Atrial Rate : 70 BPM P-R Int : 178 ms QRS Dur : 144 ms QT Int : 440 ms P-R-T Axes : 39 13 22 degrees QTcB Int : 475 ms Normal sinus rhythm Right bundle branch block Abnormal ECG When compared with ECG of 03-Jun-2025 18:25, No significant change was found Confirmed by Herrera Vasquez ([id number]) on 06/05/2025 6:11:08 AM Referred By: REFERRED SELF Confirmed By: Herrera Vasquez
[2025-06-05] MEDS ORDERED: ACETAMINOPHEN 500 MG TAB PO PRN (10:25)
--- NOTE | 2025-06-05 10:26 | Hospitalist Progress Note ---
Date of Service June 05, 2025 Assessment & Plan (1) Frequent falls: Plan: 70-year-old female with past medical history significant for type 2 diabetes, diabetic gastroparesis, dyslipidemia, hypothyroidism, diabetic polyneuropathy, obstructive sleep apnea on CPAP, portal hypertension, CVA, hypertension, grade 1 diastolic dysfunction, cirrhosis of liver with ascites, female stress incontinence, general osteoarthritis, osteoporosis, thrombocytopenia, depress ion, anxiety, intention tremor, history of PE, history of traumatic fracture who lives at home and ambulates with rollator walker comes with frequent falls. Frequent falls Ambulates with rolling walker Imaging studies no acute findings except for possible pneumonia plan for PT OT; would like to go to rehab if approved Possible pneumonia On CT chest Patient asymptomatic Will empirically treat with azithromycin for 5 days History of CVA On Plavix and statin,continue Type 2 Diabetes Continue home long-acting insulin Sliding scale Will monitor Hypertension On Coreg, nifedipine, Aldactone-continue History of liver cirrhosis Nonalcoholic fatty liver disease On Aldactone-continue History of anemia- Hb at baseline;monitor Depression and anxiety On Zoloft and bupropion-continue Hypothyroidism On Synthyroid-continue Hyperlipidemia On statin-continue GERD On omeprazole can change to Protonix as patient is on Plavix- Thrombocytopenia Platelets 128 Will follow labs Obstructive sleep apnea CPAP nightly DVT prophylaxis Heparin subcu Will monitor platelets Disposition Medical floor Full code. Please note the above document was generated using voice recognition software. It may contain grammatical, syntax or spelling errors. Any formal questions or concerns about the content, text or information contained within the body of this dictation should be directly addressed to the provider for clarification Admission and Anticipated Discharge Date Admission Date: June 03, 2025 Subjective Patient seen and examined at bedside. She is comfortable; not in any distress or pain. She is needing walker to go to the bathroom and feels unsteady. Review of Systems Review of Systems: All systems reviewed & are unremarkable except as noted in Subjective Physical Exam Physical Exam: General- Not in distress Lungs- clear to auscultation no wheezing or crackles Heart- regular rhythm; no murmur, no gallop. Abdomen- normal bowel sounds, soft, nontender, no distension Extremities- no pretibial edema, no erythema seen Neuro- alert, oriented PERRL, no facial palsy; no dysarthria; moves extremities Results & Data Results & Data Vital Signs (Past 12 Hours) Vital Signs Temp Pulse Resp BP Pulse Ox O2 Del Method O2 Flow Rate 06/05/25 09:28 68 122/67 06/05/25 07:22 36.6 C 64 18 100/56 L 98 Nasal Cannula 2 06/04/25 22:55 36.7 C 71 15 113/64 97 Nasal Cannula 2
[2025-06-05 23:32] VITALS: RESP 16; TEMP 98.1
[2025-06-06 07:27] VITALS: BP 137/68; PULSE 63; O2SAT 97
[2025-06-06] MEDS: LANTUS PER UNIT CHARGE SC SCH (09:24)
--- NOTE | 2025-06-06 10:23 | Discharge Summary ---
Date of Service June 06, 2025 Admission HPI Per Admitting Provider 70-year-old female with past medical history significant for type 2 diabetes, diabetic gastroparesis, dyslipidemia, hypothyroidism, diabetic polyneuropathy, obstructive sleep apnea on CPAP, portal hypertension, CVA, hypertension, grade 1 diastolic dysfunction, cirrhosis of liver with ascites, female stress incontinence, general osteoarthritis, osteoporosis, thrombocytopenia, depression, anxiety, intention tremor, history of PE, history of traumatic fracture who lives at home and ambulates with rollator walker comes with frequent falls. Patient says her is mostly out of the house and she is alone. When she falls down it is very hard for her to get up. Sometimes she lays on the floor for a long time. She think she has bruises on her abdomen because of the falls. Recently she fell in her garage on the concrete and hit her head and felt like she saw stars. She has headache and back pain from the falls. Denies loss of consciousness. Vision is okay. No earache. No runny nose or sore throat. No cough. No fevers. She has difficulty swallowing meats. Denies any chest pain or shortness of breath. Last couple of days she is nauseous. No abdominal pain. She is alternating with constipation and diarrhea. Denies blood in the stools. Micturating okay. Hemodynamics are okay. Past medical history. As mentioned above. Past surgical history. Small bowel repair. Abdominal surgery adhesions removed. Biopsy of left breast benign mass. Breast lesion excision. Complex cataract surgery. Colonoscopy. Colonoscopy with biopsy. Dilatation curettage. Knee arthroscopy. Laparoscopic surgical lysis of adhesions. Laparoscopic biopsy. Ligation of oviduct. Partial hysterectomy. Removal of both ovaries. Total abdominal hysterectomy with removal of tubes. Social history. . No smoking. Alcohol daily. No drug use. Family history. Father had lung cancer. Diabetes. Sister had stomach cancer. Aunt had diabetes. Admission Exam Per Admitting Provider General- Not in distress Head- atraumatic Eyes- PERRL. ENT- oropharynx clear Neck- supple, no JVD. Lungs- clear to auscultation no wheezing or crackles Heart- regular rhythm; no murmur, no gallop. Abdomen- normal bowel sounds, soft, nontender, no distension Extremities- no pretibial edema, no erythema seen Neuro- alert, oriented PERRL, no facial palsy; no dysarthria; moves extremities Principal Diagnosis Frequent falls Frequent falls Discharge Exam Constitutional: Alert oriented x 3; not in distress. Respiratory: normal respiratory effort, lungs clear to auscultation, no wheeze, rales, rhonchi. Normal insp/exp effort, no accessory muscle use Cardiovascular: RRR, no murmur, no edema Vessels: no JVD or carotid bruit Chest: normal inspection of chest Abdomen: normal bowel sounds, soft, nontender, no hepatosplenomegaly Musculoskeletal: Dressing intact on right hip; no overlying soakage. Neurologic: PERRL, EOMI, accommodation nl, no face palsy, no dysarthria CN's II- XI intact bilaterally and moves all extremities Psychiatric: A+Ox3, euthymic affect Discharge Data Allergies Allergy/AdvReac Type Severity Reaction Status Date / Time adhesive Allergy Intermediate RASH Verified 06/04/25 08:10 Iodinated Contrast Media Allergy Intermediate burning Verified 06/04/25 08:10 and aching in veins latex Allergy Intermediate RASH Verified 06/04/25 08:10 Penicillins Allergy Intermediate n/v, rash Verified 06/04/25 08:10 trolamine salicylate Allergy Hives Verified 06/04/25 08:10 [From Aspercreme] Anesthetics - Amide Type - AdvReac Intermediate Vomiting Verified 06/04/25 08:10 Select A [Anesthetics - Amide Type] Anesthetics - Juju Type- AdvReac Intermediate Vomiting Verified 06/04/25 08:10 Parabens hepatitis B virus vaccine AdvReac Intermediate CHEST Verified 06/04/25 08:10 TIGHTNESS WITH 2ND DOSE. ketorolac AdvReac Intermediate ITCHING. Verified 06/04/25 08:10 tromethamine AdvReac Intermediate ITCHING. Verified 06/04/25 08:10 aspirin AdvReac Unknown CONTRAINDICATED---currently Verified 06/04/25 08:10 with gastric ulcer, per pt Consultations 06/03/25 19:01 ED Decision to Admit Stat Ordered Studies 06/03/25 17:41 CT abd pelvis IV con only Stat CT chest diagnostic w con Stat CT lumbar spine w con Stat CT thoracic spine w con Stat 06/03/25 17:42 CT cervical spine wo con Stat CT head/brain wo con Stat Hospital Course (1) Frequent falls: 70-year-old female with past medical history significant for type 2 diabetes, diabetic gastroparesis, dyslipidemia, hypothyroidism, diabetic polyneuropathy, obstructive sleep apnea on CPAP, portal hypertension, CVA, hypertension, grade 1 diastolic dysfunction, cirrhosis of liver with ascites, female stress incontinence, general osteoarthritis, osteoporosis, thrombocytopenia, depression, anxiety, intention tremor, history of PE, history of traumatic fracture who lives at home and ambulates with rollator walker comes with frequent falls. Frequent falls Ambulates with rolling walker Imaging studies- no acute findings concerning for fracture, dislocation PT OT evaluation was completed; patient was recommended to go to rehab. However, patient reported that she is ambulating much better in the hospital and has made several rounds. She reports that she feels at baseline and does not want to go to rehab. Patient discharged home with instruction to follow-up with PCP and use walker at all times while ambulating Possible pneumonia CT of thoracic spine showed some subtle patchy ground glass densities in the periphery of left lower lung. Patient treated with 5-day course of azithromycin Patient was discharged home as per her request as she felt she was at her baseline and is ambulating much better compared to on admission. Please note the above document was generated using voice recognition software. It may contain grammatical, syntax or spelling errors. Any formal questions or concerns about the content, text or information contained within the body of this dictation should be directly addressed to the provider for clarification Total Time Total Time Spent Total Time Spent (In Minutes): 45 Total Time Includes: Examination of the Patient, Discharge Planning, Medication Reconciliation, Communication With Other Providers and Other Discharge Plan Discharge Items Patient Disposition: Home - Self-Care Reason For Visit: FREQUENT FALLS Discharge Diagnosis: Frequent falls Condition on Discharge: Fair Activity: Resume your previous activity Non-emergency contact: Primary Care Provider Call non-emergency contact if: you have any medication questions and your symptoms worsen Follow-up/Referrals: Adria Hilliard MD [Primary Care Provider] - Diet: Regular Addtl Attending Provider Instructions: You were admitted to the hospital due to falls. Please continue to use your walker at home at all times. You are found to have possible pneumonia in the CT of the chest. You are prescribed azithromycin to be taken for 3 more days. Pending Studies at Discharge: No Stand-Alone Forms: My [employer], Smoking Cessation Medications and DC Order Prescriptions: New azithromycin 250 mg Tablet 250 mg PO HS 3 Days Qty: 3 0RF Continued sennosides-docusate sodium [Senexon-S] 8.6-50 mg tablet 1 tab PO DAILY PRN (Reason: Constipation) nifedipine 30 mg tablet extended release 60 mg PO QAM clopidogrel 75 mg tablet 75 mg PO QAM spironolactone 25 mg tablet 25 mg PO QAM carvedilol 3.125 mg tablet 3.125 mg PO BID metoclopramide HCl 5 mg tablet 5 mg PO QID PRN (Reason: Nausea And Vomiting) omeprazole 20 mg capsule,delayed release(DR/EC) 20 mg PO DAILYBB insulin glargine [Lantus Solostar U-100 Insulin] 100 unit/mL (3 mL) insulin pen 26 unit SUBCUT QAM bupropion HCl 100 mg Tablet 150 mg PO QAM Rx Instructions: PT TAKES 1 AND 1/2 TABLET BY MOUTH DAILY cholecalciferol (vitamin D3) [Vitamin D3] 25 mcg (1,000 unit) Tablet,Chewable 25 mcg PO QAM levothyroxine 137 mcg tablet 137 mcg PO DAILYBB sertraline 100 mg tablet 200 mg PO QAM rosuvastatin 20 mg tablet 20 mg PO QAM gabapentin 400 mg capsule 400 mg PO TID cyclobenzaprine 10 mg tablet 10 mg PO TID PRN (Reason: Muscle Spasm) insulin aspart U-100 [Novolog FlexPen U-100 Insulin] 100 unit/mL (3 mL) insulin pen 0 sliding scale dose SUBCUT TIDWMEAL Discharge Orders: Discharge Order (Routine); Ordered 06/06/25 Ordered By: Efren Tilley/Other Patient Handouts: Managing Type 2 Diabetes Admission Data Admit Date/Time: 06/03/25 20:01 Attending Provider: Efren Allen Admit Provider: Kamran Deo Primary Care Provider: Adria Hilliard Other Providers: Kamran Doe; [facility]; [facility]
== END 2025-06-06 13:13 | disposition home or self-care (01) | DRG 91 ==
LOC: ED 17:17 → EDINP 20:01 → 3W 20:38